=== PATIENT | female | born 1940 | race Caucasian/White ===

== ENCOUNTER → 2016-09-02 | Outpatient (CLI) | payer MEDICARE, BC ==
--- NOTE | 2016-09-03 11:45 | MM ---
Reason for exam: screening (asymptomatic). Last mammogram was performed 5 months ago. History: Patient is postmenopausal and has history of other cancer at age 38. Family history of premenopausal breast cancer in mother at age 50. Benign MG stereo VAD BX LT of the left breast, October 09, 2015. Benign stereotactic core biopsy of the left breast, August 04, 2004. Excisional biopsy of the left breast, 1974. Excisional biopsy of the left breast, 1970. Benign core biopsy of the left breast. Took estrogen for 15 years beginning at age 38. Physical Findings: A clinical breast exam by your physician is recommended on an annual basis and results should be correlated with mammographic findings. MG 3D Screening Mammo W/Cad Bilateral CC and MLO view(s) were taken. Prior study comparison: March 25, 2016, left breast MG 3d diag mammo w/cad LT. September 06, 2015, left breast MG 3d work up w/cad LT. August 30, 2015, bilateral MG screening mammo w CAD. August 15, 2013, bilateral digital screening mammo w/CAD. There are scattered fibroglandular densities. Finding: There are typically benign dystrophic, round, linear calcifications in both breasts. Previous mammotome biopsy in the left breast. There is a chronic nodularity in the left breast. There is no dominant lesion. ASSESSMENT: Benign, BI-RAD 2 RECOMMENDATION: Routine screening mammogram of both breasts in 1 year.
== END | disposition home or self-care (01) ==
LOC: RADMAMWWP 09:47
PROVIDERS: ATTEND Surgery
DX: Z12.31 Encounter for screening mammogram for malignant neoplasm of breast (principal)
CPT/HCPCS: 77063; G0202

== ENCOUNTER → 2017-01-12 | Outpatient (CLI) | payer MEDICARE, BC ==
[2017-01-12 12:02] LABS: Anisocytosis Moderate; CH 31.7; CHCM 33.8; HCT 38.5 % (34.0-46.0); HDW 2.82; HGB 13.7 gm/dL (11.4-16.0); MCH 33.5 pg (25.0-35.0); MCHC 35.5 g/dL (31.0-37.0); MCV 94.2 fL (80.0-100.0); Mean Platelet Volume 6.6; RBC 4.08 m/uL (3.80-5.40); RDW 20.3 % (11.5-15.5); WBC 3.3 k/uL (3.8-10.6)
[2017-01-12 12:05] LABS: Appearance,Urine Cloudy (Clear); Bacteria,Urine Rare /hpf; Bilirubin,Urine Negative (Negative); Glucose,Urine (UA) Negative (Negative); Ketones,Urine Negative (Negative); Leukocyte Esterase,Urine Large (Negative); Mucus,Urine Rare /hpf; Nitrite,Urine Negative (Negative); Particle Count 3023; Protein,Urine Negative (Negative); RBC,Urine 5 /hpf (0-5); Specific Gravity,Urine 1.006 (1.001-1.035); Squamous Epithelial Cell,Urine <1 /hpf (0-4); UA Billing (MACRO vs. MICRO) MICRO; Urobilinogen,Urine <2.0 mg/dL (<2.0); WBC,Urine >182 /hpf (0-5)
[2017-01-12 12:10] LABS: ALT 31 U/L (9-52); AST 26 U/L (14-36); Alkaline Phosphatase 88 U/L (38-126); Anion Gap 14 mmol/L; Blood Urea Nitrogen 16 mg/dL (7-17); Calcium 10.4 mg/dL (8.4-10.2); Carbon Dioxide 27 mmol/L (22-30); Chloride 100 mmol/L (98-107); Glucose 128 mg/dL (74-99); Non-African American GFR(MDRD) >60 (>60 ml/min/1.73 sqM); Potassium 3.5 mmol/L (3.5-5.1); Sodium 141 mmol/L (137-145); Total Bilirubin 1.1 mg/dL (0.2-1.3); Total Protein 7.7 g/dL (6.3-8.2)
--- NOTE | 2017-01-12 15:27 | US ---
EXAMINATION TYPE: US kidneys/renal and bladder DATE OF EXAM: 01/12/2017 COMPARISON: Previous study dated 12/06/2014. CLINICAL HISTORY: R31.9 Hematuria. Hematuria x 5 days. EXAM MEASUREMENTS: Right Kidney: 9.1 x 4.5 x 4.4 cm Left Kidney: 9.8 x 5.1 x 4.0 cm Right Kidney: Cystic area visualized upper pole measuring 1.6 x 1.8 x 1.7 cm. Left Kidney: No hydronephrosis or masses seen Bladder: wnl Bilateral Jets seen: Yes There is a 1.8 cm low attenuating lesion within the mid polar region of the right kidney. This was pr esent previously. The left kidney is normal. The bladder is unremarkable. Both ureteral jets were vis ualized. IMPRESSION: STABLE RIGHT RENAL CYST.
== END | disposition home or self-care (01) ==
LOC: RADUSWWP 10:58
PROVIDERS: ATTEND Internal Medicine
DX: N28.1 Cyst of kidney, acquired (principal); R31.9 Hematuria, unspecified; I11.9 Hypertensive heart disease without heart failure; E11.9 Type 2 diabetes mellitus without complications
CPT/HCPCS: 76770; 80053; 81001; 85027

== ENCOUNTER → 2017-02-04 | Outpatient (CLI) | payer MEDICARE, BC ==
[2017-02-04 14:20] LABS: Blood Urea Nitrogen 15 mg/dL (7-17); Non-African American GFR(MDRD) >60 (>60 ml/min/1.73 sqM)
--- NOTE | 2017-02-04 15:50 | CT ---
EXAMINATION TYPE: CT urogram wo/w con DATE OF EXAM: 02/04/2017 COMPARISON: NONE HISTORY: 77-year-old female complains of episodes of gross hematuria. TECHNIQUE: Contiguous axial scanning of the abdomen and pelvis performed with IV Contrast, patient in jected with 100 mL of Omnipaque 300. Delayed images through the kidneys and bladder were obtained. Co jony/sagittal reconstructions performed. CT DLP: 1716.6 mGycm Automated exposure control for dose reduction was used. FINDINGS: The heart is normal size without pericardial effusion. Lung bases clear without pleural effusion. Tiny hiatal hernia. No focal liver lesion or biliary ductal dilatation. Portal venous system is patent. Cholecystectomy clips are present. Adrenal glands, spleen, and mildly atrophic pancreas show no gross abnormality. Prominent streak and beam hardening artifact from the patient's extensive lumbar fusion hardware. No mesenteric or retroperitoneal lymphadenopathy identified allowing for this limitation. No dilated small bowel, free fluid, or free air. Mild scattered stool without pericolonic inflammatory change. T here is mild sigmoid diverticulosis. Urinary bladder is urine distended and shows no suspicious filling defect. Uterus appears surgically absent. Neither ovary is visualized. No abnormal fluid collection in the pelvis or pelvic lymphadenop athy seen. Evaluation the right kidney shows a 1.9 cm mid pole cyst. No evidence for nephrolithiasis or suspicio us renal lesion. There is symmetrical uptake and excretion of contrast from both kidneys. No suspicious filling defect is identified within the renal collecting systems. Bones: No osseous destructive process. Posterior lumbar fusion hardware were corresponding laminecto mies and lateral osseous fusion. There is dynamic hip screw fixation on the right. IMPRESSION: 1. A 1.9 CM RIGHT MIDPOLE RENAL CYST. NO NEPHROLITHIASIS OR SUSPICIOUS RENAL LESION. 2. NO ABNORMALITY IDENTIFIED INVOLVING THE RENAL COLLECTING SYSTEMS OR URETERS. 3. MILD SIGMOID DIVERTICULOSIS.
== END ==
LOC: RADCTMAIN 12:52
PROVIDERS: ATTEND Urology
DX: N28.1 Cyst of kidney, acquired (principal); K57.30 Diverticulosis of large intestine without perforation or abscess without bleeding
CPT/HCPCS: 82565; 84520; 74178; 36415; 74400; Q9967

== ENCOUNTER → 2017-10-29 | Outpatient (CLI) | payer MEDICARE, BC ==
--- NOTE | 2017-11-01 13:35 | MM ---
Reason for exam: screening (asymptomatic). Last mammogram was performed 1 year and 2 months ago. History: Patient is postmenopausal and has history of other cancer at age 38. Family history of premenopausal breast cancer in mother at age 50. Benign MG stereo VAD BX LT of the left breast, October 09, 2015. Benign stereotactic core biopsy of the left breast, August 04, 2004. Excisional biopsy of the left breast, 1974. Excisional biopsy of the left breast, 1970. Benign core biopsy of the left breast. Took estrogen for 15 years beginning at age 38. Physical Findings: A clinical breast exam by your physician is recommended on an annual basis and results should be correlated with mammographic findings. MG 3D Screening Mammo W/Cad Bilateral CC and MLO view(s) were taken. Prior study comparison: September 02, 2016, bilateral MG 3d screening mammo w/cad. March 25, 2016, left breast MG 3d diag mammo w/cad LT. There are scattered fibroglandular densities. Asymmetric breast tissue in left breast lower outer quadrant 7 x 12mm. This finding is changed when compared with previous exams. ASSESSMENT: Incomplete: need additional imaging evaluation, BI-RAD 0 RECOMMENDATION: Ultrasound of the left breast. [facility] will attempt to contact patient to return for ultrasound.
== END | disposition home or self-care (01) ==
LOC: RADMAMWWP 10:05
PROVIDERS: ATTEND Surgery
DX: Z12.31 Encounter for screening mammogram for malignant neoplasm of breast (principal)
CPT/HCPCS: 77063; 77067

== ENCOUNTER → 2017-11-19 | Day surgery (SDC) | payer MEDICARE, BC ==
[2017-11-19 09:30] VITALS: RESP 16; TEMP 98.4; BMI 29.7
[2017-11-19 10:19] VITALS: BP 125/76; PULSE 98
--- NOTE | 2017-11-19 10:37 | USB ---
EXAMINATION TYPE: US biopsy breast VAD LT, MG diagnostic mammo LT wo CAD DATE OF EXAM: 11/19/2017 CLINICAL HISTORY: R92.8 Abnormal Mammogram. Abnormal ultrasound. TECHNIQUE: Ultrasound guided core biopsy of left breast with clip placement and follow-up two-view mammogram. COMPARISON: Left breast ultrasound November 10, 2017. Bilateral breast mammogram October 29, 2017. FINDINGS: The procedure of ultrasound guided core biopsy was explained to the patient. Benefits, alternatives, and risks were discussed. An informed consent was then obtained. The patient was placed in supine positioning for imaging and for the procedure. Preprocedure imaging redemonstrates a lobulated anechoic to hypoechoic 9 mm lesion zone B C5 o'clock position in the left breast. The overlying skin was prepped and draped in usual sterile fashion. Lidocaine buffered with bicarbonate was used as anesthetic into the skin and subcutaneous tissue up to area of concern in the left breast. Under ultrasound guidance, a 12-gauge vacuum assisted biopsy gun device was used to obtain 3 core samples. Lesion was not well identified after initial passes. Following this, a biopsy clip was left in lesion. The patient tolerated the procedure well without any immediate complication. The patient was kept in the radiology department for short stay after the procedure and then discharged home in stable condition. Postprocedure mammogram confirms successful deployment of clip which correlates with area of new nodularity middle depth slight inferior aspect, the new nodularity is not clearly identified after sampling. IMPRESSION: Successful, uncomplicated ultrasound guided core biopsy of area of concern in the left breast, full pathology results to follow. Low index of suspicion noted at time of procedure. Pathology Results: Benign BREAST, LEFT, CORE BIOPSY: FIBROCYSTIC CHANGES INCLUDING FIBROSIS AND APOCRINE METAPLASIA/APOCRINE CYST FORMATION. FOCALLY PROMINENT STROMAL HISTIOCYTES WITH HEMOSIDERIN PIGMENT AND CHRONIC INFLAMMATION SUGGESTIVE OF CYST RUPTURE. Recommendation Follow up ultrasound of the left breast in 6 months. NANI
== END ==
LOC: RADUSWWP 08:51
PROVIDERS: ATTEND Surgery
DX: N60.32 Fibrosclerosis of left breast (principal); N60.82 Other benign mammary dysplasias of left breast; N60.02 Solitary cyst of left breast; N61.0 Mastitis without abscess; R92.8 Other abnormal and inconclusive findings on diagnostic imaging of breast; Z88.1 Allergy status to other antibiotic agents; Z88.5 Allergy status to narcotic agent; Z88.0 Allergy status to penicillin; Z88.2 Allergy status to sulfonamides; Z91.09 Other allergy status, other than to drugs and biological substances
CPT/HCPCS: 88305; 77065; 19083; A4648; J2001

== ENCOUNTER → 2018-03-22 | Outpatient (CLI) | payer MEDICARE, BC ==
[2018-03-22 11:04] LABS: Anisocytosis Slight; HCT 34.8 % (34.0-46.0); HGB 12.3 gm/dL (11.4-16.0); MCH 31.4 pg (25.0-35.0); MCHC 35.4 g/dL (31.0-37.0); MCV 88.8 fL (80.0-100.0); Mean Platelet Volume 6.5; Platelet Count 172 k/uL (150-450); RBC 3.92 m/uL (3.80-5.40); RDW 19.9 % (11.5-15.5); WBC 2.8 k/uL (3.8-10.6)
[2018-03-22 11:09] LABS: Appearance,Urine Cloudy (Clear); Bacteria,Urine Rare /hpf; Bilirubin,Urine Negative (Negative); Blood,Urine Trace (Negative); Color,Urine Yellow; Glucose,Urine (UA) Negative (Negative); Hyaline Casts,Urine 3 /lpf (0-2); Ketones,Urine Negative (Negative); Leukocyte Esterase,Urine Large (Negative); Mucus,Urine Rare /hpf; Nitrite,Urine Negative (Negative); PH, Urine 6.5 (5.0-8.0); Protein,Urine Trace (Negative); RBC,Urine 4 /hpf (0-5); Specific Gravity,Urine 1.011 (1.001-1.035); Squamous Epithelial Cell,Urine 6 /hpf (0-4); Urobilinogen,Urine <2.0 mg/dL (<2.0); WBC,Urine 14 /hpf (0-5)
[2018-03-22 11:22] LABS: ALT 27 U/L (9-52); AST 26 U/L (14-36); Albumin 4.3 g/dL (3.5-5.0); Alkaline Phosphatase 75 U/L (38-126); Amylase 43 U/L (30-110); Anion Gap 10 mmol/L; Blood Urea Nitrogen 12 mg/dL (7-17); Calcium 9.6 mg/dL (8.4-10.2); Carbon Dioxide 30 mmol/L (22-30); Chloride 103 mmol/L (98-107); Glucose 140 mg/dL (74-99); Lipase 89 U/L (23-300); Potassium 3.3 mmol/L (3.5-5.1); Sodium 143 mmol/L (137-145); Total Bilirubin 0.9 mg/dL (0.2-1.3); Total Protein 7.1 g/dL (6.3-8.2)
--- NOTE | 2018-03-22 14:28 | US ---
EXAMINATION TYPE: US abdomen complete DATE OF EXAM: 03/22/2018 COMPARISON: Correlation CT 02/04/2017 CLINICAL HISTORY: 78-year-old female R10.84 Generalized abd pain R10.11 RUQ Abd pain for one week. C holecystectomy, known renal cyst TECHNIQUE: Multiple sonographic images of the abdomen are obtained. FINDINGS: EXAM MEASUREMENTS: Liver Length: 14.5 cm Gallbladder: Surgically absent CBD: 0.6 cm Spleen: 10.8 cm Right Kidney: 9.5 x 4.8 x 4.9 cm Left Kidney: 9.8 x 4.7 x 5.6 cm Pancreas: Suboptimal visualization of the pancreatic head and tail secondary to shadowing from bowel gas. Visualized portions appear normal. Liver: No focal lesion seen. Gallbladder: Surgically absent Evidence for sonographic Edgar's sign: no CBD: wnl Spleen: wnl Right Kidney: 2.1cm simple appearing cyst mid pole. No hydronephrosis. Left Kidney: No hydronephrosis. Upper IVC: wnl Abd Aorta: wnl IMPRESSION: Status post cholecystectomy. No hydronephrosis. 2.1 cm simple right renal cyst.
== END | disposition home or self-care (01) ==
LOC: RADUSWWP 10:15
PROVIDERS: ATTEND Internal Medicine
DX: N28.1 Cyst of kidney, acquired (principal); R10.84 Generalized abdominal pain; I11.9 Hypertensive heart disease without heart failure; E11.9 Type 2 diabetes mellitus without complications; Z90.49 Acquired absence of other specified parts of digestive tract
CPT/HCPCS: 76705; 80053; 81001; 82150; 83690; 85027

== ENCOUNTER → 2018-06-22 | Outpatient (CLI) | payer MEDICARE, BC ==
--- NOTE | 2018-06-22 11:41 | MM ---
Reason for exam: follow-up at short interval from prior study. Last mammogram was performed 7 months ago. History: Patient is postmenopausal and has history of other cancer at age 38. Family history of premenopausal breast cancer in mother at age 50. Benign US biopsy breast VAD LT of the left breast, November 19, 2017. Benign MG stereo VAD BX LT of the left breast, October 09, 2015. Benign stereotactic core biopsy of the left breast, August 04, 2004. Excisional biopsy of the left breast, 1974. Excisional biopsy of the left breast, 1970. Benign core biopsy of the left breast. Took estrogen for 15 years beginning at age 38. Physical Findings: Nurse did not find any significant physical abnormalities on exam. MG 3D Diag Mammo W/Cad LT CC and MLO view(s) were taken of the left breast. Prior study comparison: November 19, 2017, left breast MG diagnostic mammo LT wo CAD. October 29, 2017, bilateral MG 3d screening mammo w/cad. The breast tissue is heterogeneously dense. This may lower the sensitivity of mammography. There is chronic nodularity in the left breast. Previous mammotome biopsy in the left breast. No significant new findings when compared with previous films. These results were verbally communicated with the patient and result sheet given to the patient on 06/22/18. ASSESSMENT: Benign, BI-RAD 2 RECOMMENDATION: Return to routine screening mammogram schedule for both breasts. Back on schedule.
== END ==
LOC: RADMAMWWP 10:54
PROVIDERS: ATTEND Surgery
DX: R92.8 Other abnormal and inconclusive findings on diagnostic imaging of breast (principal)
CPT/HCPCS: 77065; G0279; 77061

== ENCOUNTER → 2018-10-20 | Outpatient (CLI) | payer MEDICARE, BC ==
[2018-10-20 11:06] LABS: Anisocytosis Moderate; HCT 33.9 % (34.0-46.0); HGB 12.3 gm/dL (11.4-16.0); MCH 33.6 pg (25.0-35.0); MCHC 36.2 g/dL (31.0-37.0); MCV 92.6 fL (80.0-100.0); Platelet Count 210 k/uL (150-450); RBC 3.66 m/uL (3.80-5.40); RDW 20.9 % (11.5-15.5); WBC 4.2 k/uL (3.8-10.6)
[2018-10-20 17:16] LABS: Albumin 4.7 g/dL (3.80-4.90); Albumin/Globulin Ratio 2.14 (1.60-3.17); Calcium 9.9 mg/dL (8.7-10.3); Globulin 2.2 g/dL (1.6-3.3); LDL Cholesterol,Calculated 83.6 mg/dL (0.0-131.0); Potassium 4.3 mmol/L (3.5-5.5); Total Bilirubin 0.6 mg/dL (0.3-1.2); Total Protein 6.9 g/dL (6.2-8.2); VLDL Calculation 27.4 mg/dL (5.00-40.00)
[2018-10-20 17:24] LABS: T4, Free (Free Thyroxine) 0.9 ng/dL (0.80-1.80)
[2018-10-20 18:26] LABS: Hemoglobin A1C 6.5 % (4.0-6.0)
== END ==
LOC: LABWHC1 10:05
PROVIDERS: ATTEND Internal Medicine
DX: Z00.00 Encounter for general adult medical examination without abnormal findings (principal); E11.9 Type 2 diabetes mellitus without complications; I11.9 Hypertensive heart disease without heart failure; K21.0 Gastro-esophageal reflux disease with esophagitis; E78.2 Mixed hyperlipidemia
CPT/HCPCS: 36415; 80053; 80061; 82043; 82570; 83036; 84439; 84443; 85027

== ENCOUNTER → 2018-12-07 | Outpatient (CLI) | payer MEDICARE, BC ==
--- NOTE | 2018-12-08 11:38 | MM ---
Reason for exam: screening (asymptomatic). Last mammogram was performed 6 months ago. History: Patient is postmenopausal and has history of other cancer at age 38. Family history of premenopausal breast cancer in mother at age 50. Benign US biopsy breast VAD LT of the left breast, November 19, 2017. Benign MG stereo VAD BX LT of the left breast, October 09, 2015. Benign stereotactic core biopsy of the left breast, August 04, 2004. Excisional biopsy of the left breast, 1974. Excisional biopsy of the left breast, 1970. Benign core biopsy of the left breast. Took estrogen for 15 years beginning at age 38. Physical Findings: A clinical breast exam by your physician is recommended on an annual basis and results should be correlated with mammographic findings. MG 3D Screening Mammo W/Cad Bilateral CC and MLO view(s) were taken. Prior study comparison: June 22, 2018, left breast MG 3d diag mammo w/cad LT. November 19, 2017, left breast MG diagnostic mammo LT wo CAD. There are scattered fibroglandular densities. Previous mammotome biopsy in the left breast x 2. There is chronic nodularity in the left breast. Chronic post surgical change left breast with nipple inversion. No significant changes when compared with prior studies. ASSESSMENT: Benign, BI-RAD 2 RECOMMENDATION: Routine screening mammogram of both breasts in 1 year.
== END ==
LOC: RADMAMWWP 11:50
PROVIDERS: ATTEND Internal Medicine
DX: Z12.31 Encounter for screening mammogram for malignant neoplasm of breast (principal)
CPT/HCPCS: 77063; 77067

== ENCOUNTER → 2019-04-11 | Outpatient (CLI) | payer MEDICARE, BC ==
--- NOTE | 2019-04-11 15:30 | BD ---
EXAMINATION TYPE: Axial Bone Density DATE OF EXAM: 04/11/2019 COMPARISON: 12.25.2011 DEXA bone scan. CLINICAL HISTORY: 79 YR OLD FEMALE....ICD-10 CODE: Z78.0 POST MENOPAUSAL Height: 60.5 Weight: 165 FRAX RISK QUESTIONS: History of Fracture in Adulthood: YES Secondary Osteoporosis: YES 3. Menopause before 45: YES RISK FACTORS HISTORY OF: Hip Fracture YES, RIGHT HIP, WITH PIN OVER 50 YRS OLD History of Wrist YES, RIGHT, OVER 50 YRS OLD Surgery to Spine YES TO LOWER AN CERVICAL SPINE FUSIONS AND PINNING Postmenopausal woman: HYST AT AGE 29 YRS OLD Take estrogen and/or progesterone medications: FOR SHORT WHILE IN THE PAST Lost more than 2 inches in height since high school: YES Hyperparathyroidism: NO Adrenal Insufficiency: NO MEDICATIONS: Thyroid Medications: YES, SYNTHROID, FOR ABOUT 20+ YRS Additional Medications: BP MEDS, PROZAC, HX OF CHEMO AND RADIATION, ORAL DIABETIC MEDS, REGULINE, STA TIN FOR CHOLESTEROL, Additional History: LYMPHOMA X3 TIMES, DIABETIC, HYPERTENSION, CHOLESTEROL EXAM MEASUREMENTS: Bone mineral densitometry was performed using the [employer] System. MANY FUSIONS AND PINNINGS, SPINE NOT Bone mineral density about the L hip (g/cm2): 0.855 T Score values are as follows: -----L Neck: -2.2 -----L Total: -1.2 Bone mineral density has: Decreased -3.0% since study of: 12.25.2011 FRAX%s: THERE IS A 21.6% CHANCE FOR A MAJOR OSTEOPOROTIC FX AND A 5.8% FOR HIP....PROBABILITY FOR F X IN 10 YRS TIME Bone mineral density about the L Wrist (g/cm2): 0.257 T Score values are as follows: -----Dist. R+U: -5.4 -----Prox. R+U: -6.0 -----Radius total: -6.6 Bone mineral density FIRST PERIPHERAL WRIST SCAN...BASELINE WRIST. IMPRESSION: Osteoporosis (T Score less than -2.5) is present left forearm level. There is increased fracture risk and therapy is usually indicated based on age. Re-Screen 1-2 years. NOTE: T-SCORE=SD OF THE YOUNG ADULT MEAN.
== END | disposition home or self-care (01) ==
LOC: RADBDWWP 14:01
PROVIDERS: ATTEND Family Medicine
DX: M81.0 Age-related osteoporosis without current pathological fracture (principal)
CPT/HCPCS: 77080

== ENCOUNTER → 2019-07-07 | Outpatient (CLI) | payer MEDICARE, BC | END | disposition home or self-care (01) | LOC: LABWHC1 11:03 | PROVIDERS: ATTEND Orthopaedic Surgery | DX: Z01.812 Encounter for preprocedural laboratory examination (principal) | CPT/HCPCS: 87070 ==

== ENCOUNTER → 2019-07-14 | Outpatient (CLI) | payer MEDICARE, BC ==
[2019-07-14 13:23] LABS: Prothrombin Time 10.6 sec (9.0-12.0)
[2019-07-14 14:03] LABS: Basophils # (A) 0.1 k/uL (0-0.2); Basophils % (A) 1 %; Eosinophils # (A) 0.1 k/uL (0-0.7); Eosinophils % (A) 1 %; HCT 37.5 % (34.0-46.0); HGB 12.5 gm/dL (11.4-16.0); Lymphocytes # (A) 0.9 k/uL (1.0-4.8); Lymphocytes % (A) 9 %; MCH 30.1 pg (25.0-35.0); MCHC 33.2 g/dL (31.0-37.0); MCV 90.5 fL (80.0-100.0); Mean Platelet Volume 7.1; Monocytes # (A) 0.7 k/uL (0-1.0); Monocytes % (A) 7 %; Neutrophils # (A) 8.1 k/uL (1.3-7.7); Neutrophils % (A) 82 %; Platelet Count 220 k/uL (150-450); RBC 4.15 m/uL (3.80-5.40); RDW 13.5 % (11.5-15.5); WBC 9.8 k/uL (3.8-10.6)
== END | disposition home or self-care (01) ==
LOC: LABPAT 12:02
PROVIDERS: ATTEND Orthopaedic Surgery
DX: Z01.812 Encounter for preprocedural laboratory examination (principal); Z01.818 Encounter for other preprocedural examination; M17.11 Unilateral primary osteoarthritis, right knee
CPT/HCPCS: 85025; 85610; 93005

== ENCOUNTER 2019-07-20 14:07 | Emergency (ER) | payer MEDICARE, BC ==
[2019-07-20 14:26] VITALS: BP 99/66; PULSE 90; RESP 20; TEMP 97.6
[2019-07-20] MEDS ORDERED: LIDOCAINE 5% PATCH TOPICAL STA ×2 (14:54→15:10)
[2019-07-20] MEDS ORDERED: CYCLOBENZAPRINE 5 MG TAB PO STA (14:55)
[2019-07-20] MEDS ORDERED: KETOROLAC 30 MG/ML 1 ML VIAL IM STA (14:56)
[2019-07-20] MEDS ORDERED: CYCLOBENZAPRINE 10 MG TAB PO STA (15:11)
--- NOTE | 2019-07-20 16:16 | ED ---
Back Pain [facility] - General Chief Complaint: Back Pain/Injury Stated Complaint: Back pain Time Seen by Provider: 07/20/19 14:46 Source: patient Limitations: no limitations - History of Present Illness Initial Comments: Patient is 79-year-old female presenting to emergency Department with a chief complaint of low back pain. Patient reports onset of back pain about 3 days ago that appears to be exacerbated with ambulation and is alleviated and sitting or standing position. Patient also reports the pain is exacerbated with right rotation. Patient reports the pain is located in the lumbosacral region and radiates bilaterally but mostly towards the left side. Denies any radiation of the pain along the posterior aspect of the left lower extremity. Denies saddle anesthesia, urinary bowel incontinence. No red flags. Reports taking [id number] analgesia with some improvement. She does have a history of lumbar fusion for many years ago. Denies abdominal pain, chest pain, shortness of breath, one-sided weakness, paresthesias. No focal deficits. - Related Data Home Medications Medication Instructions Recorded Confirmed Allopurinol [Zyloprim] 100 mg PO DAILY 01/05/14 11/19/17 Atenolol [Tenormin] 50 mg PO BID 01/05/14 11/19/17 Calcium Carb-Vit D 500Mg-200Un 1 tab PO BID 01/05/14 11/19/17 [Oscal 500+D] Diclofenac Sodium 75 mg PO BID 01/05/14 11/19/17 Montelukast [Singulair] 10 mg PO HS 01/05/14 11/19/17 Simvastatin [Zocor] 20 mg PO HS 01/05/14 11/19/17 amLODIPine BESYLATE [Norvasc] 5 mg PO QAM 01/05/14 11/19/17 Levothyroxine Sodium [Synthroid] 12.5 mcg PO QAM 03/16/14 11/19/17 Zolpidem [Ambien] 5 mg PO HS PRN 03/16/14 11/19/17 FLUoxetine HCL [PROzac] 20 mg PO QAM 07/24/14 11/19/17 Furosemide 40 mg PO DAILY 07/24/14 11/19/17 Clopidogrel Bisulfate [Clopidogrel] 75 mg PO DAILY 10/29/14 11/19/17 Metoclopramide [Reglan] 5 mg PO BID 02/06/15 11/19/17 metFORMIN HCL [Glucophage] 500 mg PO DAILY 11/12/17 11/19/17 Previous Rx's Medication Instructions Recorded Lidocaine 5% Patch [Lidoderm] 1 patch TOPICAL DAILY #6 patch 07/20/19 Allergies Allergy/AdvReac Type Severity Reaction Status Date / Time cefaclor [From Ceclor] Allergy Rash/Hives Verified 07/20/19 14:26 ciprofloxacin [From Cipro] Allergy Rash/Hives Verified 07/20/19 14:26 ciprofloxacin HCl Allergy Rash/Hives Verified 07/20/19 14:26 [From Cipro] hydromorphone HCl Allergy Anaphylaxis Verified 07/20/19 14:26 [From Dilaudid] Penicillins Allergy Rash/Hives Verified 07/20/19 14:26 adhesive AdvReac red skin, Verified 07/20/19 14:26 blisters sulfamethoxazole AdvReac Abdominal Verified 07/20/19 14:26 [From Bactrim] Pain trimethoprim [From Bactrim] AdvReac Abdominal Verified 07/20/19 14:26 Pain Review of Systems ROS Statement: Those systems with pertinent positive or pertinent negative responses have been documented in the HPI. ROS Other: All systems not noted in ROS Statement are negative. Past Medical History Past Medical History: Cancer, Diabetes Mellitus, GERD/Reflux, Hyperlipidemia, Hypertension, Osteoarthritis (OA), Syncope Additional Past Medical History / Comment(s): TIA X2, SYNCOPE in 2013, VARICOSE VEINS, GOUT, LYMPHOMA (HX OF CHEMO & RADIATION 1977,1982 & 1993) History of Any Multi-Drug Resistant Organisms: None Reported Past Surgical History: Back Surgery, Cholecystectomy, Hysterectomy, Joint Replacement Additional Past Surgical History / Comment(s): RIGHT HIP REPAIR, LEFT KNEE REPLACEMENT, HAND & FOOT SURG, BREAST & AXILLARY BX, TUMOR IN THROAT REMOVED., CERVICAL FUSION, 7-16-15 LUMBAR LAMINECTOMY,DECOMPRESSION-FUSION L1-L2. Past Anesthesia/Blood Transfusion Reactions: No Reported Reaction Additional Past Anesthesia/Blood Transfusion Reaction / Comment(s): CLAUSTROPHOBIA Past Psychological History: Anxiety, Depression Smoking Status: Never smoker Past Alcohol Use History: None Reported Past Drug Use History: None Reported - Past Family History Father Family Medical History: Deep Vein Thrombosis (DVT) Mother Family Medical History: Cancer Additional Family Medical History / Comment(s): BREAST CA Brother(s) Family Medical History: Cancer, CVA/TIA, Deep Vein Thrombosis (DVT) Additional Family Medical History / Comment(s): BROTHER #1 CA. BROTHER #2 CVA W/ BRAIN BLEED. BROTHER #3 DVT General Exam Limitations: no limitations General appearance: alert, in no apparent distress Head exam: Present: atraumatic, normocephalic, normal inspection Eye exam: Present: normal appearance, PERRL, EOMI Pupils: Present: normal accommodation ENT exam: Present: normal exam Neck exam: Present: normal inspection, full ROM Respiratory exam: Present: normal lung sounds bilaterally Cardiovascular Exam: Present: regular rate, normal rhythm, normal heart sounds Extremities exam: Present: normal inspection, full ROM, normal capillary refill, other (+2 ulnar and radial pulses bilaterally.) Back exam: Present: normal inspection (Scarring from previous surgery.), tenderness, paraspinal tenderness (Left paraspinal tenderness along to the left buttock region.). Absent: full ROM (Limited range of motion with right rotation due to pain) Neurological exam: Present: alert, oriented X3 Psychiatric exam: Present: normal affect, normal mood Skin exam: Present: warm, dry, intact, normal color Course Vital Signs 07/20/19 14:22 Temperature 97.6 F Pulse Rate 90 Respiratory 20 Rate Blood Pressure 99/66 O2 Sat by Pulse 99 Oximetry Medical Decision Making - Medical Decision Making Patient is 79-year-old female presenting to emergency Department with a chief complaint of low back pain. On exam patient does have paraspinal tenderness in the lumbosacral region the mostly radiates down to the left buttock. Positive leg raise test the right leg. No trauma to the region. I suspect this is mechanical lumbar pain. No red flags. No cauda equina. No thoracic or cervical pain. No focal deficits. Very Low suspicion for dissection. Patient given total, Lidoderm patch and Flexeril. On reevaluation patient reports some symptoms have greatly improved. She is still able to ambulate. Patient was to follow-up with bioinformatics specialist. Patient given prescription for return patches. Patient also given Flexeril starter pack advised about the possible side effects of the medication. Strict return parameters were thoroughly discussed with patient was understanding and agreeable. Case discussed with physician. Disposition Clinical Impression: Mechanical back pain Disposition: HOME SELF-CARE Condition: Stable Instructions (If sedation given, give patient instructions): Acute Low Back Pain (ED) Additional Instructions: Please follow up with an bioinformatics specialist. Please return to emergency department if symptoms worsen. Alternate between Tylenol and ibuprofen for pain control. Prescriptions: Lidocaine 5% Patch [Lidoderm] 1 patch TOPICAL DAILY #6 patch Is patient prescribed a controlled substance at d/c from ED?: No Referrals: Alvarez Rocha DO [Primary Care Provider] - 1-2 days Gil Stern DO [Medical Doctor] - 1-2 days Time of Disposition: 16:16
[2019-07-20] MEDS ORDERED: CYCLOBENZAPRINE 10MG STARTER 3 TAB BTL PO STA (16:20)
== END 2019-07-20 16:30 | disposition home or self-care (01) ==
LOC: EC 14:07
DX: M54.5 Low back pain (principal); E11.9 Type 2 diabetes mellitus without complications; E78.5 Hyperlipidemia, unspecified; I10 Essential (primary) hypertension; M19.90 Unspecified osteoarthritis, unspecified site; M10.9 Gout, unspecified; F32.9 Major depressive disorder, single episode, unspecified; F41.9 Anxiety disorder, unspecified; Z88.0 Allergy status to penicillin; Z88.1 Allergy status to other antibiotic agents; Z88.2 Allergy status to sulfonamides; Z88.5 Allergy status to narcotic agent; Z91.048 Other nonmedicinal substance allergy status; Z79.1 Long term (current) use of non-steroidal anti-inflammatories (NSAID); Z79.02 Long term (current) use of antithrombotics/antiplatelets; Z79.84 Long term (current) use of oral hypoglycemic drugs; Z79.890 Hormone replacement therapy; Z79.899 Other long term (current) drug therapy; Z86.73 Personal history of transient ischemic attack (TIA), and cerebral infarction without residual deficits; Z85.72 Personal history of non-Hodgkin lymphomas; Z92.21 Personal history of antineoplastic chemotherapy; Z92.3 Personal history of irradiation; Z98.1 Arthrodesis status; Z96.652 Presence of left artificial knee joint
CPT/HCPCS: 99283; 96372; J1885

== ENCOUNTER 2019-07-31 08:36 | Inpatient (IN) | payer MEDICARE, BC ==
[2019-07-21 10:20] VITALS: BMI 28.6
--- NOTE | 2019-07-30 11:11 | HP ---
HISTORY AND PHYSICAL Pretty Youngblood is a 79-year-old patient seen with symptomatic right knee osteoarthritis. After treatment options were discussed with her, she elected to proceed with right total knee arthroplasty. Consent regarding the procedure was obtained, clearance was provided by Dr. Rocha. PAST MEDICAL HISTORY: Hyperlipidemia, hypertension, hypothyroidism, gastroesophageal reflux disease. PAST SURGICAL HISTORY: Cholecystectomy, hysterectomy, hip arthroplasty, shoulder arthroscopy, cervical fusion, lumbar spine fusion. DAILY MEDICATIONS: Atenolol, furosemide, Norvasc, Plavix, Prozac, simvastatin, allopurinol, Synthroid. ALLERGIES: PENICILLIN, CIPRO, CECLOR, DILAUDID, BACTRIM, TAPE. SOCIAL HISTORY: She denies tobacco use. PHYSICAL EXAMINATION: Evaluation of the right knee: Range of motion is -2 to 115. Mild effusion. Tenderness along the medial joint line. Crepitus along the medial patellofemoral compartments on range of motion. Pain with patellofemoral compression. Ligaments are stable. Hip rotation is without pain. Distal neurovascular exam is intact. RADIOGRAPHS: Radiographs of the right knee revealed severe medial moderate patellofemoral compartment osteoarthritis. IMPRESSION: 1. Right knee osteoarthritis. 2. Hypertension. 3. Hyperlipidemia. 4. Hypothyroidism. 5. Gastroesophageal reflux disease. PLAN: Right total knee arthroplasty. MMODL / IJN: [id number] /
[~2019-07-31 08:36] MED LIST: ACETAMINOPHEN TAB 500 MG TAB PO ONE; CLINDAMYCIN 900 MG in DEXTROSE 5% IN WATER 50 ML IVPB ONE; LIDOCAINE 1% 20 ML VIAL (10MG/ML) FOR IV START INTRADERMA PRN; MELOXICAM 7.5 MG TAB PO ONE; MIDAZOLAM 2 MG/2 ML VIAL IV PRN; TRANEXAMIC ACID 1,000 MG in SODIUM CHLORIDE 0.9% 100 ML IVPB ONE; fentaNYL (PF) 50 MCG/ML 2 ML AMP IV PRN
[2019-07-31] MEDS: LACTATED RINGERS 1,000 ML IV SCH ×3 (08:58→17:06)
[2019-07-31] MEDS ORDERED: ONDANSETRON 4 MG/2 ML VIAL IVP ONE (09:20)
[2019-07-31] MEDS ORDERED: DEXAMETHASONE SOD PHOSPHATE 10 MG/ML 1 ML VIAL IV ONE (09:20)
[2019-07-31 09:22] LABS: Glucose,Whole Blood 113 mg/dL (75-99)
[2019-07-31] MEDS: fentaNYL (PF) 50 MCG/ML 2 ML AMP IVP PRN ×3 (09:28→15:23)
[2019-07-31] MEDS ORDERED: ROPIVACAINE 0.2%-NS ON-Q PUMP 1,090 MG, EMPTY PAIN BALL 1 EACH MISCELLANE PRN (09:54)
--- NOTE | 2019-07-31 09:55 | P.ANPRN ---
Procedure Note - Anesthesia - Nerve Block Performed Right Adductor Canal Infusion Time Out Performed: Yes Date of Procedure: 07/31/19 Procedure Start Time: :30 Procedure Stop Time: :41 Location of Patient: PreOp Indication: Acute Post-Operative Pain, Requested by Surgeon Specifically requested for management of pain by DrYousif: [place] Sedation Type: Sedate with meaningful contact maintained Preparation: Sterile Prep Position: Supine Catheter: Indwelling Needle Types: Pajunk Needle Gauge: 18 Ultrasound used to visualize needle placement: Yes Ultrasound used to observe medication spread: Yes Injectate: 0.5% Ropivacaine (see comment for volume) (20 cc) Blood Aspirated: No Pain Paresthesia on Injection Noted: No Resistance on Injection: Normal Image Stored and Saved: Yes Events: Uneventful and Well Tolerated
[2019-07-31] MEDS ORDERED: fentaNYL (PF) 50 MCG/ML 2 ML AMP ONE (10:00)
[2019-07-31] MEDS ORDERED: MIDAZOLAM 2 MG/2 ML VIAL ONE (10:00)
[2019-07-31] MEDS ORDERED: SUCCINYLCHOLINE CHLORIDE 100 MG/5 ML SYR IV ONE (10:00)
[2019-07-31] MEDS ORDERED: PROPOFOL 10 MG/ML 20 ML VIAL IV ONE (10:00)
[2019-07-31] MEDS: ROPIVACAINE 246.25 MG, EPINEPHrine 0.5 MG, KETOROLAC 30 MG, cloNIDine HCL/PF 80 MCG, WA... MISCELLANE ONE ×10 (10:39→11:39)
[2019-07-31] MEDS ORDERED: CLINDAMYCIN 1,800 MG in SODIUM CHLORIDE 0.9% IRRIGATIO 3,000 ML IRRIGATION ONE (10:39)
[2019-07-31] MEDS ORDERED: LACTATED RINGERS 1,000 ML IV ONE (11:39)
[2019-07-31] MEDS ORDERED: NALOXONE 0.4 MG/ML 1 ML VIAL IV PRN (12:03)
[2019-07-31] MEDS ORDERED: HYDROmorphone 0.5 MG/0.5 ML SYRINGE IVP PRN ×3 (12:03)
[2019-07-31] MEDS ORDERED: ONDANSETRON 4 MG/2 ML VIAL IVP PRN (12:03)
--- NOTE | 2019-07-31 12:03 | P.OP ---
Date of Procedure: 07/31/19 Preoperative Diagnosis: Right knee osteoarthritis Postoperative Diagnosis: Right knee osteoarthritis Procedure(s) Performed: Right total knee arthroplasty Implants: 1. Microport evolution size 4 right cemented femur 2. Microport evolution size 5 right cemented tibial baseplate 3. Microport evolution size 5 right 14 mm CS polyethylene tibial insert 4. Microport advance 32 mm all polyethylene cemented patella Anesthesia: GETA, regional (Adductor canal catheter), local Surgeon: Los Thomas Die Machine Operator #1: Octaviano Rice Estimated Blood Loss (ml): 30 Pathology: other (Bone) Condition: stable Disposition: PACU Indications for Procedure: 79-year-old patient seen with symptomatic right knee osteoarthritis. After treatment options were discussed, she elected to proceed with total knee arthroplasty. Operative Findings: See description of procedure Description of Procedure: Patient was taken to the operative suite after having an adductor canal catheter placed by the department of anesthesia for postoperative pain management. Patient underwent a general anesthetic by the department of anesthesia. Patient was given preoperative IV intake antibiotics and TXA. A well-padded tourniquet was placed about the right lower extremity. The lower extremity was then prepped and draped in the normal sterile orthopedic fashion. The extremity was elevated, a tourniquet was insufflated to 300. A standard anterior incision was made sharply through skin. Dissection was taken down through the subcutaneous soft tissues down to the extensor mechanism. A medial arthrotomy was performed, patella was everted and knee was flexed. There was advanced osteoarthritis noted. I introduced my distal intramedullary femoral drill. I then introduced the distal femoral cutting jig. Jose Elias MURO secured the cutting jig with 2 pins. I held retractors in position while Jose Elias MURO performed the distal femoral resection through the guide area we now removed her distal femoral cutting guide. We now placed our 4-in-1 femoral cutting block and positioned and it was secured with 2 pins by Jose Elias MURO while I held the block in position. The distal femoral finishing was now completed. A proximal tibial cutting guide was positioned. I held the guide in the appropriate position with both hands well Jose Elias MURO inserted stabilizing pins into the guide. P roximal tibial cut was made. We now placed a trial femoral component into position, along with an appropriate size tibial tray and insert. We now took the knee through range of motion and had full extension good flexion and good overall soft tissue balance noted. The patella was everted and stabilized with 2 towel clips held by Jose Elias MURO while I performed a flush with patellar quad tendon utilizing a fresh sawblade. We templated the patella, appropriate drill holes were made. An appropriate trial patella was positioned, knee was taken through full range of motion with the patella tracking very nicely. The trial patella was removed. Drill holes were made through the femoral component. All trial components were removed after marking off the appropriate rotation of the tibia. Retractors were now positioned along the proximal tibia. An appropriate keel punch was made with the appropriate size tibial guide by myself on Jose Elias MURO assisted by holding retractors. At this point appropriate size implants were chosen and opened. The joint was irrigated copiously with pulse lavage mechanical irrigation. The posterior capsule was infiltrated with local analgesic. The wound was irrigated with pulse lavage mechanical irrigation. We mixed antibiotic methylmethacrylate. We placed the knee into flexion. We placed multiple retractors assisted by Jose Elias MURO to expose the proximal tibia. Once the methyl methacrylate was ready, the tibial component was cemented into place removing any excess methylmethacrylate form by both myself and Jose Elias MURO. The femoral component was cemented into place removing the removing any excess methylmethacrylate performed by both myself and Jose Elias MURO. We then inserted the appropriate size polyethylene tibial insert. We made sure that it was locked into position. We took the knee into full extension, and then back in a flexion making sure we had removed any excess methylmethacrylate. The patellar component was then cemented down and secured with clamp. Excess methylmethacrylate removed. We kept the knee in full extension, patellar clamp in position until methylmethacrylate had hardened. Once it had hardened the patellar clamp was removed. The knee was taken through full range of motion. The patella tracked nicely. There was good soft tissue balancing. The tourniquet was now released. Additional hemostasis was achieved via electrocautery. A second gram of TXA was given. The wound again was irrigated with pulse lavage mechanical irrigation. The superficial soft tissues were infiltrated local analgesic. The extensor mechanism was repaired with Vicryl. We checked the repair with range of motion and it was stable. The subcutaneous soft tissues were repaired with Vicryl in layers. The skin was approximated with pernio/Dermabond. Sterile dressings were applied followed by loose web roll and Chris bandage. The patient was transferred to a bed, and taken to recovery in stable and satisfactory condition. Jose Elias MURO assisted with this complex procedure.
[2019-07-31 12:28] LABS: Glucose,Whole Blood 137 mg/dL (75-99)
--- NOTE | 2019-07-31 12:43 | XR ---
EXAMINATION TYPE: XR knee limited RT DATE OF EXAM: 07/31/2019 CLINICAL HISTORY: Right knee pain and arthritis status post total knee replacement. TECHNIQUE: Portable AP and crosstable lateral views of the right knee are obtained immediately posto peratively. COMPARISON: None FINDINGS: Metallic hardware from total right knee arthroplasty is seen and appears satisfactory in a lignment and position. There is evidence of recent surgery with diffuse subcutaneous gas, vertical s kin diann, and soft tissue swelling noted. IMPRESSION: METALLIC HARDWARE FROM TOTAL RIGHT KNEE ARTHROPLASTY IS SATISFACTORY IN ALIGNMENT.
[2019-07-31] MEDS: SODIUM CHLORIDE 0.9% 1,000 ML IV SCH (16:55)
[2019-07-31 17:10] LABS: Glucose,Whole Blood 150 mg/dL (75-99)
[2019-07-31] MEDS: CLINDAMYCIN 900 MG in DEXTROSE 5% IN WATER 50 ML IVPB SCH ×2 (18:00)
[2019-07-31] MEDS: HYDROcodone/APAP 5-325MG 1 EACH TAB PO PRN (18:05)
[2019-07-31] MEDS ORDERED: ZOLPIDEM 5 MG TAB PO PRN (20:15)
[2019-07-31 20:24] LABS: Glucose,Whole Blood 203 mg/dL (75-99)
[2019-07-31] MEDS: INSULIN ASPART (NovoLOG) 100 UNIT/ML VIAL SQ SCH (20:44)
[2019-07-31] MEDS: ENOXAPARIN 30 MG/0.3 ML SYRINGE SQ SCH ×2 (20:45→20:47)
[2019-07-31] MEDS: ATORVASTATIN 20 MG TAB PO SCH (20:45)
[2019-07-31] MEDS: SENNOSIDES-DOCUSATE SODIUM 1 EACH TAB PO SCH (20:45)
[2019-07-31] MEDS: MONTELUKAST 10 MG TAB PO SCH (20:45)
[2019-07-31] MEDS: ATENOLOL 50 MG TAB PO SCH ×2 (20:46→20:55)
[2019-07-31] MEDS: POTASSIUM CHLORIDE ER 10 MEQ TAB.ER.PRT PO SCH (20:55)
[2019-08-01] MEDS: CLINDAMYCIN 900 MG in DEXTROSE 5% IN WATER 50 ML IVPB SCH ×2 (02:29)
[2019-08-01] MEDS: HYDROcodone/APAP 5-325MG 1 EACH TAB PO PRN ×4 (02:34→22:00)
[2019-08-01] MEDS: LEVOTHYROXINE 25 MCG TAB PO SCH (05:49)
[2019-08-01 07:10] LABS: Glucose,Whole Blood 110 mg/dL (75-99)
[2019-08-01] MEDS: INSULIN ASPART (NovoLOG) 100 UNIT/ML VIAL SQ SCH ×4 (07:53→20:43)
[2019-08-01 07:55] LABS: Basophils # (A) 0.1 k/uL (0-0.2); Basophils % (A) 1 %; Eosinophils % (A) 1 %; HCT 29.6 % (34.0-46.0); HGB 10.2 gm/dL (11.4-16.0); Lymphocytes # (A) 0.5 k/uL (1.0-4.8); Lymphocytes % (A) 6 %; MCH 31.4 pg (25.0-35.0); MCHC 34.5 g/dL (31.0-37.0); MCV 91.1 fL (80.0-100.0); Monocytes # (A) 1.2 k/uL (0-1.0); Monocytes % (A) 14 %; Neutrophils # (A) 6.3 k/uL (1.3-7.7); Neutrophils % (A) 76 %; Platelet Count 186 k/uL (150-450); RBC 3.25 m/uL (3.80-5.40); RDW 15.9 % (11.5-15.5); WBC 8.3 k/uL (3.8-10.6)
--- NOTE | 2019-08-01 08:08 | P.PN ---
Progress Note - Text Anesthesia POD 1 727. Patient is status post right TKR under general endotracheal anesthesia with a right adductor canal catheter placed for postoperative pain relief. With ropivacaine 0.2% running at 8 cc's per hour, the patient's VAS is (0, 2). Catheter site is clean dry and intact.
[2019-08-01] MEDS: ALLOPURINOL 100 MG TAB PO SCH (08:12)
[2019-08-01] MEDS: amLODIPine 5 MG TAB PO SCH (08:12)
[2019-08-01] MEDS: CALCIUM CARB-VIT D 500MG-200UN 1 EACH TAB PO SCH (08:14)
[2019-08-01] MEDS: ATENOLOL 50 MG TAB PO SCH ×2 (08:14→22:01)
[2019-08-01] MEDS: MELOXICAM 7.5 MG TAB PO SCH (08:15)
[2019-08-01] MEDS: FLUoxetine HCL 20 MG CAP PO SCH (08:15)
[2019-08-01] MEDS: metFORMIN 500 MG TAB PO SCH (08:15)
[2019-08-01] MEDS: ENOXAPARIN 30 MG/0.3 ML SYRINGE SQ SCH ×2 (08:15→20:42)
[2019-08-01] MEDS: POTASSIUM CHLORIDE ER 10 MEQ TAB.ER.PRT PO SCH (08:15)
[2019-08-01] MEDS: FAMOTIDINE 20 MG TAB PO SCH (08:15)
--- NOTE | 2019-08-01 08:46 | P.CONS ---
History of Present Illness - Reason for Consult Consult date: 08/01/19 - History of Present Illness This is a 79-year-old female patient of Dr. Rocha with past medical history of diabetes mellitus type 2, hypertension, hyperlipidemia, hypothyroidism, CVA on Plavix, gout, history of lymphoma status post chemotherapy and radiation therapy, history of esophageal cancer status post radiation. The patient has been brought into the hospital under the care of Dr. Thomas is status post right total knee arthroplasty. Patient has been started on Lovenox for DVT prophylaxis. Patient's blood pressure has been on the hypertensive side, asymptomatic. Patient did have some bleeding from the surgical site during the night and dressing was just changed. Appetite is good. No nausea or vomiting. Patient did have diarrhea on Wednesday which is completely resolved. She is passing gas and no bowel movement. Adductor canal catheter in place for pain control. Patient is planning to return home at the time of discharge. Patient has been off Plavix for 7 days prior to procedure. Review of Systems All systems: negative Constitutional: Denies anorexia, Denies chills, Denies fatigue, Denies fever, Denies lethargy, Denies malaise, Denies poor appetite, Denies weakness Eyes: denies blurred vision, denies pain Ears, nose, mouth and throat: Denies dysphagia, Denies headache, Denies nasal congestion, Denies nasal discharge, Denies sore throat Cardiovascular: Denies chest pain, Denies shortness of breath Respiratory: Denies cough, Denies cough with sputum, Denies dyspnea, Denies hemoptysis, Denies wheezing Gastrointestinal: Denies abdominal pain, Denies diarrhea, Denies loss of appeti te, Denies nausea, Denies vomiting Genitourinary: Denies dysuria, Denies hematuria, Denies urgency, Denies urinary frequency Musculoskeletal: Denies frequent falls, Denies gait dysfunction, Denies muscle weakness, Denies myalgias Integumentary: Denies pruritus, Denies rash, Denies wounds Neurological: Denies change in mentation, Denies change in speech, Denies numbness, Denies weakness Psychiatric: Denies anxiety, Denies depression Endocrine: Denies fatigue, Denies weight change Past Medical History Past Medical History: Cancer, CVA/TIA, Diabetes Mellitus, GERD/Reflux, Hyperlipidemia, Hypertension, Osteoarthritis (OA), Syncope, Thyroid Disorder Additional Past Medical History / Comment(s): TIA X2 -no residual effects, GOUT, LYMPHOMA (HX OF CHEMO & RADIATION 1977,1982 & 1993), hx migraines, hiatal hernia, constipation, radiation tx to esophagus for cancer, seen in 07/20/19 for lower back pain History of Any Multi-Drug Resistant Organisms: None Reported Past Surgical History: Appendectomy, Back Surgery, Cholecystectomy, Hysterectomy, Joint Replacement, Orthopedic Surgery, Tonsillectomy Additional Past Surgical History / Comment(s): RIGHT HIP REPAIR after fx(Plate), LEFT KNEE REPLACEMENT, surgery to straighten hammer toes-german feet, left BREAST & AXILLARY lymph node Biopsy, CERVICAL FUSION, LUMBAR LAMINECTOMY,DECOMPRESSION- FUSION, bone spur removed rt hip, screws in german thumbs, german cataracts Past Anesthesia/Blood Transfusion Reactions: No Reported Reaction Additional Past Anesthesia/Blood Transfusion Reaction / Comm: CLAUSTROPHOBIA, states no problems with intubation Past Psychological History: Anxiety, Depression Smoking Status: Never smoker Past Alcohol Use History: None Reported Additional Past Alcohol Use History / Comment(s): Patient is a lifelong nonsmoker, no illicit drug use, no marijuana use, no alcohol abuse. She drinks wine occasionally. She lives at home with her . Past Drug Use History: None Reported - Past Family History Father Family Medical History: Deep Vein Thrombosis (DVT) Additional Family Medical History / Comment(s): Father at age 32 from pulmonary embolism. Mother Family Medical History: Cancer Additional Family Medical History / Comment(s): Mother in her late 80s from breast cancer and also had dementia. Brother(s) Family Medical History: Cancer, Deep Vein Thrombosis (DVT) Additional Family Medical History / Comment(s): Patient had 2 brothers that have passed one from myocardial infarction and one from pulmonary embolism. 2 brothers are alive and one has lung cancer, one brother is alive with a brain aneurysm and CVA. Patient has 6 children with no major medical problems. Medications and Allergies Home Medications Medication Instructions Recorded Confirmed Type Allopurinol [Zyloprim] 100 mg PO DAILY 01/05/14 07/31/19 History Atenolol [Tenormin] 50 mg PO BID 01/05/14 07/31/19 History Calcium Carb-Vit D 500Mg-200Un 1 tab PO DAILY 01/05/14 07/31/19 History [Oscal 500+D] Diclofenac Sodium 75 mg PO BID 01/05/14 07/31/19 History Montelukast [Singulair] 10 mg PO HS 01/05/14 07/31/19 History amLODIPine BESYLATE [Norvasc] 5 mg PO QAM 01/05/14 07/31/19 History Levothyroxine Sodium [Synthroid] 12.5 mcg PO QAM 03/16/14 07/31/19 History Zolpidem [Ambien] 5 mg PO HS 03/16/14 07/31/19 History FLUoxetine HCL [PROzac] 20 mg PO QAM 07/24/14 07/31/19 History Clopidogrel Bisulfate [Clopidogrel] 75 mg PO DAILY 10/29/14 07/31/19 History metFORMIN HCL [Glucophage] 500 mg PO DAILY 11/12/17 07/31/19 History Lidocaine 5% Patch [Lidoderm] 1 patch TOPICAL DAILY #6 patch 07/20/19 07/31/19 Rx Famotidine [Pepcid] 20 mg PO DAILY 07/21/19 07/31/19 History Potassium Chloride 10 meq PO QAM 07/21/19 07/31/19 History Simvastatin [Zocor] 40 mg PO HS 07/21/19 07/31/19 History rOPINIRole HCL [Requip Xl] 2 mg PO BID 07/21/19 07/31/19 History Allergies Allergy/AdvReac Type Severity Reaction Status Date / Time cefaclor [From Ceclor] Allergy Rash/Hives Verified 07/31/19 09:07 ciprofloxacin [From Cipro] Allergy Rash/Hives Verified 07/31/19 09:07 ciprofloxacin HCl Allergy Rash/Hives Verified 07/31/19 09:07 [From Cipro] hydromorphone HCl Allergy Anaphylaxis Verified 07/31/19 09:07 [From Dilaudid] Penicillins Allergy Rash/Hives Verified 07/31/19 09:07 adhesive AdvReac red skin, Verified 07/31/19 09:07 blisters sulfamethoxazole AdvReac Abdominal Verified 07/31/19 09:07 [From Bactrim] Pain trimethoprim [From Bactrim] AdvReac Abdominal Verified 07/31/19 09:07 Pain Physical Exam Vitals: Vital Signs Temp Pulse Pulse Resp BP BP Pulse Ox 08/01/19 07:00 98.1 F 84 15 96/64 95 08/01/19 02:30 98.4 F 85 16 101/68 94 L 07/31/19 23:03 86 108/65 07/31/19 21:27 90 111/70 07/31/19 20:54 78 89/59 07/31/19 20:53 16 07/31/19 17:05 97.7 F 89 16 106/70 96 07/31/19 16:09 90 16 143/69 100 07/31/19 15:10 93 16 118/60 97 07/31/19 14:40 93 16 110/58 95 07/31/19 14:10 93 16 115/56 94 L 07/31/19 13:55 93 16 108/55 93 L 07/31/19 13:40 92 16 118/58 94 L 07/31/19 13:25 92 16 119/61 97 07/31/19 13:08 92 16 121/53 93 L 07/31/19 12:53 92 16 123/54 100 07/31/19 12:38 92 16 122/53 100 07/31/19 12:23 93 16 116/54 100 07/31/19 12:08 97.2 F L 99 16 132/51 96 07/31/19 09:44 98.3 F 88 16 155/73 98 Intake and Output 07/31/19 08/01/19 08/01/19 22:59 06:59 14:59 Intake Total 400 Output Total 400 300 Balance -400 100 Intake: Intake, IV Titration 400 Amount Sodium Chloride 0.9% 1, 400 000 ml @ 50 mls/hr IV . Q20H [facility] Rx#:[id number] Output: Urine 400 300 Other: # Voids 1 Weight 70 kg Gen: This is a 79-year-old female. Patient is resting in bed and appears to be comfortable in no acute distress. HEENT: Head is atraumatic, normocephalic. Pupils equal, round. Sclerae is anicteric. Oral mucous members are moist. NECK: Supple. No JVD. No lymphadenopathy. No thyromegaly. LUNGS: Clear to auscultation. No wheezes or rhonchi. No intercostal retractions. HEART: Regular rate and rhythm. No murmur. ABDOMEN: Soft. Bowel sounds are present. No masses. No tenderness. EXTREMITIES: No pedal edema. No calf tenderness. A dressing in place to the right knee with ice packs. No active bleeding on dressing. Dorsalis pedis +2 bilaterally. NEUROLOGICAL: Patient is awake, alert and oriented x3. Cranial nerves 2 through 12 are grossly intact. Results CBC & Chem 7: 08/01/19 06:55 Labs: Abnormal Lab Results - Last 24 Hours (Table) 07/31/19 07/31/19 07/31/19 Range/Units 09:19 12:26 17:08 RBC (3.80-5.40) m/uL Hgb (11.4-16.0) gm/dL Hct (34.0-46.0) % RDW (11.5-15.5) % Lymphocytes # (1.0-4.8) k/uL Monocytes # (0-1.0) k/uL POC Glucose (mg/dL) 113 H 137 H 150 H (75-99) mg/dL 07/31/19 08/01/19 08/01/19 Range/Units 20:12 06:55 06:58 RBC 3.25 L (3.80-5.40) m/uL Hgb 10.2 L (11.4-16.0) gm/dL Hct 29.6 L (34.0-46.0) % RDW 15.9 H (11.5-15.5) % Lymphocytes # 0.5 L (1.0-4.8) k/uL Monocytes # 1.2 H (0-1.0) k/uL POC Glucose (mg/dL) 203 H 110 H (75-99) mg/dL Assessment and Plan Plan: 1. Osteoarthritis status post right total knee arthroplasty. Continue current pain management per orthopedic surgeon. Continue PT and OT. Continue incentive spirometry to reduce incidence of atelectasis and hospital-acquired pneumonia. 2. Hypertension currently hypotensive. Blood pressure medications are on hold. 3. Hyperlipidemia. 4. Diabetes mellitus type 2. 5. Hypothyroidism. 6. History of lymphoma, remission. 7. History of esophageal cancer, remission. 8. History of CVA. Lasix will need to be resumed.. 9. DVT prophylaxis. Continue Lovenox. 10. GI prophylaxis. Pepcid. Discharge plan: home with home care Impression and plan of care have been directed as dictated by the signing physician. Karen Quintero nurse practitioner acting as scribe for signing physician.
[2019-08-01 12:07] LABS: Glucose,Whole Blood 117 mg/dL (75-99)
[2019-08-01] MEDS: SODIUM CHLORIDE 0.9% 1,000 ML IV SCH (12:12)
--- NOTE | 2019-08-01 12:55 | P.PN ---
Subjective Progress Note Date: 08/01/19 Principal diagnosis: Status post right total knee arthroplasty Patient is evaluated today at bedside, she is resting comfortably in her chair. She's ambulated with therapy. Patient was noted to have hypotension this morning, she is remaining on IV fluids. Denies any chest pain or shortness of breath at this time. Objective - Vital Signs Vital signs: Vital Signs Temp 98.1 F 08/01/19 07:00 Pulse 84 08/01/19 07:00 Resp 15 08/01/19 07:00 BP 96/64 08/01/19 07:00 Pulse Ox 95 08/01/19 07:00 Intake & Output 07/31/19 08/01/19 08/01/19 18:59 06:59 18:59 Intake Total 1807 400 200 Output Total 30 700 Balance 1777 -300 200 Weight 70 kg Intake: IV 1807 Intake, IV Titration 400 Amount Sodium Chloride 0.9% 1, 400 000 ml @ 50 mls/hr IV . Q20H [facility] Rx#:[id number] Oral 200 Output: Urine 700 Estimated Blood Loss 30 Other: # Voids 1 - Exam Right lower extremity: Incision is clean, dry, and intact. The diann are in good condition. There is minimal soft tissue swelling and ecchymosis surrounding the medial and lateral aspects of the incision. Calf is soft, no tenderness with palpation. Plantar flexion, dorsiflexion, EHL, FHL are intact. Sensory exam to light touch throughout the extremity is intact, dorsal pedis pulses 2+. - Labs CBC & Chem 7: 08/01/19 06:55 Labs: Abnormal Lab Results - Last 24 Hours (Table) 07/31/19 07/31/19 08/01/19 Range/Units 17:08 20:12 06:55 RBC 3.25 L (3.80-5.40) m/uL Hgb 10.2 L (11.4-16.0) gm/dL Hct 29.6 L (34.0-46.0) % RDW 15.9 H (11.5-15.5) % Lymphocytes # 0.5 L (1.0-4.8) k/uL Monocytes # 1.2 H (0-1.0) k/uL POC Glucose (mg/dL) 150 H 203 H (75-99) mg/dL 08/01/19 08/01/19 Range/Units 06:58 11:56 RBC (3.80-5.40) m/uL Hgb (11.4-16.0) gm/dL Hct (34.0-46.0) % RDW (11.5-15.5) % Lymphocytes # (1.0-4.8) k/uL Monocytes # (0-1.0) k/uL POC Glucose (mg/dL) 110 H 117 H (75-99) mg/dL Assessment and Plan Plan: Assessment: Postoperative day #1 status post right total knee arthroplasty Hypotension Plan: Pain control, continue current medication GI and DVT prophylaxis, will continue Lovenox. Patient does take Plavix for previous TIA. Did discuss with nursing to discuss with internal medicine DVT prophylaxis options for discharge Wound care instructions discussed Icing and elevating techniques discussed continue physical therapy at this time Medical recommendations Continue physical therapy Due to patient's low blood pressure and need for IV fluids, we'll keep patient overnight with plans for discharge home tomorrow. Time with Patient: Less than 30
[2019-08-01 16:51] LABS: Glucose,Whole Blood 136 mg/dL (75-99)
[2019-08-01] MEDS: LACTATED RINGERS 1,000 ML IV SCH (17:58)
[2019-08-01 20:42] LABS: Glucose,Whole Blood 176 mg/dL (75-99)
[2019-08-01] MEDS: MONTELUKAST 10 MG TAB PO SCH (20:42)
[2019-08-01] MEDS: SENNOSIDES-DOCUSATE SODIUM 1 EACH TAB PO SCH (20:43)
[2019-08-01] MEDS: ATORVASTATIN 20 MG TAB PO SCH (20:43)
[2019-08-02] MEDS: SODIUM CHLORIDE 0.9% 1,000 ML IV SCH (04:57)
[2019-08-02] MEDS: LEVOTHYROXINE 25 MCG TAB PO SCH (05:30)
[2019-08-02 07:06] LABS: Glucose,Whole Blood 160 mg/dL (75-99)
[2019-08-02 08:02] LABS: Glucose,Whole Blood 157 mg/dL (75-99)
[2019-08-02] MEDS: ALLOPURINOL 100 MG TAB PO SCH (08:16)
[2019-08-02] MEDS: amLODIPine 5 MG TAB PO SCH (08:16)
[2019-08-02] MEDS: ATENOLOL 50 MG TAB PO SCH ×2 (08:16→22:06)
[2019-08-02] MEDS ORDERED: SODIUM CHLORIDE 0.9% 500 ML 500 ML IV ONE ×2 (08:21→20:11)
[2019-08-02] MEDS: POTASSIUM CHLORIDE ER 10 MEQ TAB.ER.PRT PO SCH (08:26)
[2019-08-02] MEDS: FLUoxetine HCL 20 MG CAP PO SCH (08:26)
[2019-08-02] MEDS: CALCIUM CARB-VIT D 500MG-200UN 1 EACH TAB PO SCH (08:27)
[2019-08-02] MEDS: MELOXICAM 7.5 MG TAB PO SCH (08:27)
[2019-08-02] MEDS: FAMOTIDINE 20 MG TAB PO SCH (08:27)
[2019-08-02] MEDS: ENOXAPARIN 30 MG/0.3 ML SYRINGE SQ SCH ×2 (08:27→20:25)
[2019-08-02] MEDS: metFORMIN 500 MG TAB PO SCH (08:27)
[2019-08-02] MEDS: INSULIN ASPART (NovoLOG) 100 UNIT/ML VIAL SQ SCH ×4 (08:29→20:26)
[2019-08-02] MEDS: HYDROcodone/APAP 5-325MG 1 EACH TAB PO PRN ×2 (10:36→17:43)
[2019-08-02 10:51] LABS: Calcium 8.7 mg/dL (8.4-10.2); Potassium 4.3 mmol/L (3.5-5.1)
[2019-08-02 10:57] LABS: Basophils # (A) 0.4 k/uL (0-0.2); Basophils % (A) 3 %; Eosinophils % (A) 0 %; HCT 29.6 % (34.0-46.0); HGB 9.7 gm/dL (11.4-16.0); Lymphocytes # (A) 0.8 k/uL (1.0-4.8); Lymphocytes % (A) 7 %; MCH 29.9 pg (25.0-35.0); MCHC 32.9 g/dL (31.0-37.0); MCV 90.8 fL (80.0-100.0); Mean Platelet Volume 7.9; Monocytes # (A) 1.3 k/uL (0-1.0); Monocytes % (A) 11 %; Neutrophils # (A) 9.5 k/uL (1.3-7.7); Neutrophils % (A) 80 %; Platelet Count 181 k/uL (150-450); RBC 3.26 m/uL (3.80-5.40); RDW 13.3 % (11.5-15.5); WBC 11.9 k/uL (3.8-10.6)
[2019-08-02 11:21] LABS: Crenated RBC Present; Poikilocytosis (M) Present
[2019-08-02 11:29] LABS: Glucose,Whole Blood 172 mg/dL (75-99)
--- NOTE | 2019-08-02 12:54 | P.PN ---
Subjective Progress Note Date: 08/02/19 Principal diagnosis: Status post right total knee arthroplasty Patient is evaluated today at bedside, she is resting comfortably in her chair. She's ambulated with therapy. Patient did have another episode of low blood pressure. CBC and CMP were done, labs did demonstrate an elevated white count. I did order a urine analysis. Denies any chest pain or shortness of breath at this time. Objective - Vital Signs Vital signs: Vital Signs Temp 98.3 F 08/02/19 07:00 Pulse 90 08/02/19 08:36 Resp 18 08/02/19 07:47 BP 108/66 08/02/19 10:20 Pulse Ox 97 08/02/19 07:47 Intake & Output 08/01/19 08/02/19 08/02/19 18:59 06:59 18:59 Intake Total 660 0 Balance 660 0 Intake: Intake, IV Titration 0 Amount Sodium Chloride 0.9% 1, 0 000 ml @ 50 mls/hr IV . Q20H [facility] Rx#:[id number] Oral 660 Other: Voiding Method Toilet # Voids 2 1 - Exam Right lower extremity: Incision is clean, dry, and intact. The diann are in good condition. There is minimal soft tissue swelling and ecchymosis surrounding the medial and lateral aspects of the incision. Calf is soft, no tenderness with palpation. Plantar flexion, dorsiflexion, EHL, FHL are intact. Sensory exam to light touch throughout the extremity is intact, dorsal pedis pulses 2+. - Labs CBC & Chem 7: 08/02/19 08:44 08/02/19 08:44 Labs: Abnormal Lab Results - Last 24 Hours (Table) 08/01/19 08/01/19 08/02/19 Range/Units 16:39 20:30 06:55 WBC (3.8-10.6) k/uL RBC (3.80-5.40) m/uL Hgb (11.4-16.0) gm/dL Hct (34.0-46.0) % Neutrophils # (1.3-7.7) k/uL Lymphocytes # (1.0-4.8) k/uL Monocytes # (0-1.0) k/uL Basophils # (0-0.2) k/uL Sodium (137-145) mmol/L Carbon Dioxide (22-30) mmol/L Glucose (74-99) mg/dL POC Glucose (mg/dL) 136 H 176 H 160 H (75-99) mg/dL 08/02/19 08/02/19 08/02/19 Range/Units 07:50 08:44 08:44 WBC 11.9 H (3.8-10.6) k/uL RBC 3.26 L (3.80-5.40) m/uL Hgb 9.7 L (11.4-16.0) gm/dL Hct 29.6 L (34.0-46.0) % Neutrophils # 9.5 H (1.3-7.7) k/uL Lymphocytes # 0.8 L (1.0-4.8) k/uL Monocytes # 1.3 H (0-1.0) k/uL Basophils # 0.4 H (0-0.2) k/uL Sodium 133 L (137-145) mmol/L Carbon Dioxide 21 L (22-30) mmol/L Glucose 176 H (74-99) mg/dL POC Glucose (mg/dL) 157 H (75-99) mg/dL 08/02/19 Range/Units 11:17 WBC (3.8-10.6) k/uL RBC (3.80-5.40) m/uL Hgb (11.4-16.0) gm/dL Hct (34.0-46.0) % Neutrophils # (1.3-7.7) k/uL Lymphocytes # (1.0-4.8) k/uL Monocytes # (0-1.0) k/uL Basophils # (0-0.2) k/uL Sodium (137-145) mmol/L Carbon Dioxide (22-30) mmol/L Glucose (74-99) mg/dL POC Glucose (mg/dL) 172 H (75-99) mg/dL Assessment and Plan Plan: Assessment: Postoperative day #2 status post right total knee arthroplasty Hypotension Plan: Pain control, continue current medication GI and DVT prophylaxis, will continue Lovenox. Patient does take Plavix for previous TIA. Did discuss with nursing to discuss with internal medicine DVT prophylaxis options for discharge Wound care instructions discussed Icing and elevating techniques discussed continue physical therapy at this time Medical recommendations Continue physical therapy Due to patient's low blood pressure and need for IV fluids, we'll continue to hold patient. Time with Patient: Less than 30
--- NOTE | 2019-08-02 14:08 | P.PN ---
Subjective Progress Note Date: 08/02/19 This is a 79-year-old female patient of Dr. Rocha with past medical history of diabetes mellitus type 2, hypertension, hyperlipidemia, hypothyroidism, CVA on Plavix, gout, history of lymphoma status post chemotherapy and radiation therapy, history of esophageal cancer status post radiation. The patient has been brought into the hospital under the care of Dr. Thomas is status post right total knee arthroplasty. Patient has been started on Lovenox for DVT prophylaxis. Patient's blood pressure has been on the hypertensive side, asymptomatic. Patient did have some bleeding from the surgical site during the night and dressing was just changed. Appetite is good. No nausea or vomiting. Patient did have diarrhea on Wednesday which is completely resolved. She is passing gas and no bowel movement. Adductor canal catheter in place for pain control. Patient is planning to return home at the time of discharge. Patient has been off Plavix for 7 days prior to procedure. 08/02: Patient has been afebrile, heart rate 90, blood pressure 115/70, pulse ox 97% on room air. Patient did have a short syncopal episode with standing. IV fluid bolus ordered. Orthostatics were positive. Blood sugar running between 157-176. The patient is doing very well with physical therapy. She is been afebrile, heart rate 90, blood pressure 115/70, pulse ox 97% on room air. WBC 11.9, hemoglobin 9.7, platelet count 181. Sodium 133, potassium 4.3, chloride 103, CO2 21, BUN 12 and creatinine 0.82. Orthopedics has ordered a urinalysis. Plan is to monitor overnight and probable discharge tomorrow. Patient is still planning to go home with homecare. Review of Systems Constitutional: Denies anorexia, Denies chills, Denies fatigue, Denies fever, Denies lethargy, Denies malaise, Denies poor appetite, Denies weakness Eyes: denies blurred vision, denies pain Ears, nose, mouth and throat: Denies dysphagia, Denies headache, Denies nasal congestion, Denies nasal discharge, Denies sore throat Cardiovascular: Denies chest pain, Denies shortness of breath, reports syncope Respiratory: Denies cough, Denies cough with sputum, Denies dyspnea, Denies hem optysis, Denies wheezing Gastrointestinal: Denies abdominal pain, Denies diarrhea, Denies loss of appetite, Denies nausea, Denies vomiting Genitourinary: Denies dysuria, Denies hematuria, Denies urgency, Denies urinary frequency Musculoskeletal: Denies frequent falls, Denies gait dysfunction, Denies muscle weakness, Denies myalgias Integumentary: Denies pruritus, Denies rash, Denies wounds Neurological: Denies change in mentation, Denies change in speech, Denies numbness, Denies weakness Psychiatric: Denies anxiety, Denies depression Endocrine: Denies fatigue, Denies weight change Objective - Vital Signs Vital signs: Vital Signs Temp 98.3 F 08/02/19 07:00 Pulse 90 08/02/19 08:36 Resp 18 08/02/19 07:47 BP 115/70 08/02/19 08:36 Pulse Ox 97 08/02/19 07:47 Intake & Output 08/01/19 08/02/19 08/02/19 18:59 06:59 18:59 Intake Total 660 0 Balance 660 0 Intake: Intake, IV Titration 0 Amount Sodium Chloride 0.9% 1, 0 000 ml @ 50 mls/hr IV . Q20H [facility] Rx#:[id number] Oral 660 Other: Voiding Method Toilet # Voids 2 1 - Exam Gen: This is a 79-year-old female. Patient is resting in recliner and appears to be comfortable. HEENT: Head is atraumatic, normocephalic. Pupils equal, round. Sclerae is anicteric. Oral mucous members are moist. NECK: Supple. No JVD. No lymphadenopathy. No thyromegaly. LUNGS: Clear to auscultation. No wheezes or rhonchi. No intercostal retractions. HEART: Regular rate and rhythm. No murmur. ABDOMEN: Soft. Bowel sounds are present. No masses. No tenderness. EXTREMITIES: No pedal edema. No calf tenderness. A dressing in place to the right knee with ice packs. No active bleeding on dressing. Dorsalis pedis +2 bilaterally. NEUROLOGICAL: Patient is awake, alert and oriented x3. Cranial nerves 2 through 12 are grossly intact. - Labs CBC & Chem 7: 08/02/19 08:44 08/02/19 08:44 Labs: Abnormal Lab Results - Last 24 Hours (Table) 08/01/19 08/01/1920 Range/Units 11:56 16:39 20:30 POC Glucose (mg/dL) 117 H 136 H 176 H (75-99) mg/dL 08/02/19 08/02/19 Range/Units 06:55 07:50 POC Glucose (mg/dL) 160 H 157 H (75-99) mg/dL Assessment and Plan Plan: 1. Osteoarthritis status post right total knee arthroplasty. Continue current pain management per orthopedic surgeon. Continue PT and OT. Continue incentive spirometry to reduce incidence of atelectasis and hospital-acquired pneumonia. 2. Hypertension currently hypotensive with orthostatic changes. IV fluid bolus ordered. Blood pressure medications are on hold. 3. Hyperlipidemia. 4. Diabetes mellitus type 2. 5. Hypothyroidism. 6. History of lymphoma, remission. 7. History of esophageal cancer, remission. 8. History of CVA. Lasix will need to be resumed.. 9. DVT prophylaxis. Continue Lovenox. 10. GI prophylaxis. Pepcid. Discharge plan: home with [facility] on Impression and plan of care have been directed as dictated by the signing physician. Karen Quintero nurse practitioner acting as scribe for signing physician.
[2019-08-02 14:18] LABS: Appearance,Urine Clear (Clear); Bilirubin,Urine Negative (Negative); Blood,Urine Negative (Negative); Color,Urine Light Yellow; Glucose,Urine (UA) 1+ (Negative); Ketones,Urine Trace (Negative); Leukocyte Esterase,Urine Negative (Negative); Nitrite,Urine Negative (Negative); Protein,Urine Negative (Negative); Specific Gravity,Urine 1.011 (1.001-1.035); Urobilinogen,Urine <2.0 mg/dL (<2.0)
[2019-08-02 16:46] LABS: Glucose,Whole Blood 189 mg/dL (75-99)
[2019-08-02] MEDS: LACTATED RINGERS 1,000 ML IV SCH (17:45)
[2019-08-02 20:23] LABS: Glucose,Whole Blood 202 mg/dL (75-99)
[2019-08-02] MEDS: SENNOSIDES-DOCUSATE SODIUM 1 EACH TAB PO SCH (20:25)
[2019-08-02] MEDS: MONTELUKAST 10 MG TAB PO SCH (20:26)
[2019-08-02] MEDS: ATORVASTATIN 20 MG TAB PO SCH (20:26)
[2019-08-03] MEDS: SODIUM CHLORIDE 0.9% 1,000 ML IV SCH (00:11)
[2019-08-03 05:00] VITALS: RESP 16
[2019-08-03] MEDS: LEVOTHYROXINE 25 MCG TAB PO SCH (05:19)
[2019-08-03] MEDS: INSULIN ASPART (NovoLOG) 100 UNIT/ML VIAL SQ SCH ×2 (06:54→12:10)
[2019-08-03 07:05] LABS: Glucose,Whole Blood 133 mg/dL (75-99)
[2019-08-03] MEDS: HYDROcodone/APAP 5-325MG 1 EACH TAB PO PRN ×2 (07:05→13:19)
[2019-08-03 07:52] LABS: Basophils # (A) 0.1 k/uL (0-0.2); Basophils % (A) 1 %; Eosinophils % (A) 0 %; HCT 26.6 % (34.0-46.0); HGB 8.9 gm/dL (11.4-16.0); Lymphocytes # (A) 0.4 k/uL (1.0-4.8); Lymphocytes % (A) 4 %; MCHC 33.3 g/dL (31.0-37.0); MCV 90.1 fL (80.0-100.0); Mean Platelet Volume 7.2; Monocytes # (A) 0.9 k/uL (0-1.0); Monocytes % (A) 8 %; Neutrophils # (A) 8.9 k/uL (1.3-7.7); Neutrophils % (A) 84 %; Platelet Count 172 k/uL (150-450); RBC 2.95 m/uL (3.80-5.40); RDW 13.7 % (11.5-15.5); WBC 10.6 k/uL (3.8-10.6)
[2019-08-03] MEDS: ENOXAPARIN 30 MG/0.3 ML SYRINGE SQ SCH (10:04)
[2019-08-03] MEDS: metFORMIN 500 MG TAB PO SCH (10:04)
[2019-08-03] MEDS: FLUoxetine HCL 20 MG CAP PO SCH (10:04)
[2019-08-03] MEDS: MELOXICAM 7.5 MG TAB PO SCH (10:04)
[2019-08-03] MEDS: amLODIPine 5 MG TAB PO SCH (11:03)
[2019-08-03] MEDS: ATENOLOL 50 MG TAB PO SCH (11:03)
[2019-08-03] MEDS ORDERED: SODIUM CHLORIDE 0.9% 500 ML 500 ML IV ONE (11:12)
[2019-08-03] MEDS: FAMOTIDINE 20 MG TAB PO SCH (11:16)
[2019-08-03] MEDS: POTASSIUM CHLORIDE ER 10 MEQ TAB.ER.PRT PO SCH (11:17)
[2019-08-03] MEDS: CALCIUM CARB-VIT D 500MG-200UN 1 EACH TAB PO SCH (11:17)
[2019-08-03] MEDS: ALLOPURINOL 100 MG TAB PO SCH (11:17)
[2019-08-03 11:36] LABS: Glucose,Whole Blood 127 mg/dL (75-99)
--- NOTE | 2019-08-03 13:15 | P.PN ---
Progress Note - Text Progress Note Date: 08/03/19 Patient seen lying in bed. She reports doing much better today followed sure it had one more bowel of some nausea. She went to be discharged today she states that she has been cleared by her medical doctor for discharge as well. Her incision appears stable. Timmy and Homans were negative. Her distal neurovascular exam is intact. Impression: Status post right total knee arthroplasty Plan: Will discharge to home today
--- NOTE | 2019-08-03 13:23 | P.DS ---
Providers Date of admission: 08/01/19 12:55 Expected date of discharge: 08/03/19 Attending physician: Los Thomas Consults: 07/31/19 12:03 Consult Physician Routine Consulting Provider: Carlos Enrique Farooq Reason/Comments: Medical management Do you want consulting provider notified?: Yes Primary care physician: [facility] Course: Date of admission: 07/31/2019 Date of discharge: 08/03/2019 Admission diagnosis: Right knee osteoarthritis Discharge diagnosis: right total knee arthroplasty Attending physician: Los Thomas DO Surgical procedure: Right total knee arthroplasty Brief history: Patient is a 79-year-old female with a history of symptomatic right knee osteoarthritis. At this point patient has failed outpatient conser vative treatment measures and has opted to proceed with an elective total knee arthroplasty. Hospital course: Details the patient surgery can be found in the operative report. Patient tolerated the procedure well and was subsequently transported to orthopedic floor. Patient orthopedic and medical care was provided daily. Patient had daily laboratory tests performed for evaluation of overall blood counts. Patient had daily physical therapy to include strengthening, range of motion as well as education with walker ambulation. Patient had daily CPM usage as well as physical therapy program. Patient was treated with Lovenox for the postoperative DVT prophylaxis during there inpatient stay. Patient noted to have a relatively uneventful postoperative course. Patient reported satisfactor y pain control with oral pain medication by postoperative day 3. Patient showed satisfactory progress with physical therapy. Patient removed steadily through the program and had no difficulty meeting goals by postop day 3. Given patient's otherwise satisfactory course and having met physical therapy goals, plan is to discharge patient to to home on postoperative day 3. Discharge condition/disposition: Patient discharged to home in stable and satisfactory condition. Discharge medications: Patient is prescribed home medications per medicine as well as appropriate oral analgesics and anticoagulants. Discharge instructions: 1. Wound care and infectious precautions, keep incision dry and covered while showering, no lotions, creams, moisturized. No soaking, tubs, pools, hot tubs. Do not scrub over the incision 2. Weight-bear as tolerated with walker/cane until follow-up 3. Ice and elevate when necessary. Do not exceed 20 minutes per hour with ice pack. 4. Utilize compression sleeve until seen first postoperative appointment. 5. Visiting nursing care 6. Home physical therapy occluding home CPM. 7. Pain meds and anticoagulations per prescription 8. Pain medication has potential to cause constipation. Increase oral fluid and fiber intake. Contact primary care provider if you have not had a bowel movement within 48 hours after discharge. 9. No anti-inflammatory medication until discussed the first postoperative visit, this includes Motrin, Aleve, Mobic, diclofenac, . 10. Follow-up in [facility] in 2 weeks with Jose Elias Rice PA-C 11. Follow up with your primary care doctor 7-10 days after discharge. 12. Contact [facility] with any questions, Patient Condition at Discharge: Stable Plan - Discharge Summary Discharge Rx Participant: Yes New Discharge Prescriptions: New Aspirin [Adult Low Dose Aspirin EC] 81 mg PO BID #60 tablet. Docusate [Colace] 100 mg PO DAILY #30 capsule HYDROcodone/APAP 7.5-325MG [Palmer 7.5-325] 1 each PO Q6HR PRN #28 tab PRN Reason: Pain traMADol HCL [Ultram] 50 mg PO Q6HR PRN 7 Days #28 tab PRN Reason: Pain No Action Allopurinol [Zyloprim] 100 mg PO DAILY amLODIPine BESYLATE [Norvasc] 5 mg PO QAM Montelukast [Singulair] 10 mg PO HS Atenolol [Tenormin] 50 mg PO BID Diclofenac Sodium 75 mg PO BID Calcium Carb-Vit D 500Mg-200Un [Oscal 500+D] 1 tab PO DAILY Zolpidem [Ambien] 5 mg PO HS Levothyroxine Sodium [Synthroid] 12.5 mcg PO QAM FLUoxetine HCL [PROzac] 20 mg PO QAM Clopidogrel Bisulfate [Clopidogrel] 75 mg PO DAILY metFORMIN HCL [Glucophage] 500 mg PO DAILY Lidocaine 5% Patch [Lidoderm] 1 patch TOPICAL DAILY #6 patch Famotidine [Pepcid] 20 mg PO DAILY rOPINIRole HCL [Requip Xl] 2 mg PO BID Simvastatin [Zocor] 40 mg PO HS Potassium Chloride 10 meq PO QAM Discharge Medication List Allopurinol [Zyloprim] 100 mg PO DAILY 01/05/14 [History] Atenolol [Tenormin] 50 mg PO BID 01/05/14 [History] Calcium Carb-Vit D 500Mg-200Un [Oscal 500+D] 1 tab PO DAILY 01/05/14 [History] Diclofenac Sodium 75 mg PO BID 01/05/14 [History] Montelukast [Singulair] 10 mg PO HS 01/05/14 [History] amLODIPine BESYLATE [Norvasc] 5 mg PO QAM 01/05/14 [History] Levothyroxine Sodium [Synthroid] 12.5 mcg PO QAM 03/16/14 [History] Zolpidem [Ambien] 5 mg PO HS 03/16/14 [History] FLUoxetine HCL [PROzac] 20 mg PO QAM 07/24/14 [History] Clopidogrel Bisulfate [Clopidogrel] 75 mg PO DAILY 10/29/14 [History] metFORMIN HCL [Glucophage] 500 mg PO DAILY 11/12/17 [History] Lidocaine 5% Patch [Lidoderm] 1 patch TOPICAL DAILY #6 patch 07/20/19 [Rx] Famotidine [Pepcid] 20 mg PO DAILY 07/21/19 [History] Potassium Chloride 10 meq PO QAM 07/21/19 [History] Simvastatin [Zocor] 40 mg PO HS 07/21/19 [History] rOPINIRole HCL [Requip Xl] 2 mg PO BID 07/21/19 [History] Aspirin [Adult Low Dose Aspirin EC] 81 mg PO BID #60 tablet.dr 08/03/19 [Rx] Docusate [Colace] 100 mg PO DAILY #30 capsule 08/03/19 [Rx] HYDROcodone/APAP 7.5-325MG [Palmer 7.5-325] 1 each PO Q6HR PRN #28 tab 08/03/19 [Rx] traMADol HCL [Ultram] 50 mg PO Q6HR PRN 7 Days #28 tab 08/03/19 [Rx] Follow up Appointment(s)/Referral(s): [facility], [NON-STAFF] - As Needed [facility] [NON-STAFF] - As Needed (Continuous Passive Motion knee machine) Octaviano Rice PAC [PHYSICIAN PIPING SUPERVISOR] - 08/16/19 2:30 pm Alvarez Rocha DO [Primary Care Provider] - 08/16/19 11:45 am Patient Instructions/Handouts: Knee Replacement (DC) Activity/Diet/Wound Care/Special Instructions: Hold amlodipine at home until SBP >120. OK to take atenolol. Orthopedic discharge instructions: 1. Wound care infection precautions , no lotions, creams, moisturizers. No soaking, pools, hot tubs. Do not scrub over incision. 2. Weight-bear as tolerated with walker/cane until follow-up 3. Ice and elevate when necessary. Do not exceed 20 minutes per hour with ice pack. 4. Utilize compression sleeve until seen at first follow-up appointment. 5. Pain meds and anticoagulation per prescription. 6. Pain medication is potential to cause constipation. Increase oral fluids and fiber. Contact primary care provider. Has not had a bowel movement within 48 hours of discharge. 7. No anti-inflammatory medication and discussed at first postop visit, this includes Motrin, Aleve, Mobic, diclofenac,. 8. Follow up in office at 2 weeks postoperatively with Jose Elias Rice PA-C 9. Follow-up with primary care doctor within 7-10 days after discharge. 10. Contact [facility] with any questions, Discharge Disposition: HOME WITH HOME HEALTH SERVICES
[2019-08-03 14:57] VITALS: BP 108/54; PULSE 65; TEMP 99.1
--- NOTE | 2019-08-04 09:36 | P.PN ---
Subjective Progress Note Date: 08/03/19 This is a 79-year-old female patient of Dr. Rocha with past medical history of diabetes mellitus type 2, hypertension, hyperlipidemia, hypothyroidism, CVA on Plavix, gout, history of lymphoma status post chemotherapy and radiation therapy, history of esophageal cancer status post radiation. The patient has been brought into the hospital under the care of Dr. Thomas is status post right total knee arthroplasty. Patient has been started on Lovenox for DVT prophylaxis. Patient's blood pressure has been on the hypertensive side, asymptomatic. Patient did have some bleeding from the surgical site during the night and dressing was just changed. Appetite is good. No nausea or vomiting. Patient did have diarrhea on Wednesday which is completely resolved. She is passing gas and no bowel movement. Adductor canal catheter in place for pain control. Patient is planning to return home at the time of discharge. Patient has been off Plavix for 7 days prior to procedure. 08/02: Patient has been afebrile, heart rate 90, blood pressure 115/70, pulse ox 97% on room air. Patient did have a short syncopal episode with standing. IV fluid bolus ordered. Orthostatics were positive. Blood sugar running between 157-176. The patient is doing very well with physical therapy. She is been afebrile, heart rate 90, blood pressure 115/70, pulse ox 97% on room air. WBC 11.9, hemoglobin 9.7, platelet count 181. Sodium 133, potassium 4.3, chloride 103, CO2 21, BUN 12 and creatinine 0.82. Orthopedics has ordered a urinalysis. Plan is to monitor overnight and probable discharge tomorrow. Patient is still planning to go home with homecare. 08/03: Patient has been afebrile, heart rate 101, blood pressure 101/67, pulse ox 95% on room air. Repeat blood work reveals hemoglobin of 8.9, WBC 10.6. Blood sugars are running between 133 and 202. Urinalysis negative for infection. Pat ient states she has a little nauseated this morning only ET and toast. She has not had a bowel movement. She denies any dizziness. His blood pressure is on the low side, patient was instructed to hold amlodipine at home until systolic blood pressure greater than 120. Patient is scheduled for discharge home later today. Review of Systems Constitutional: Denies anorexia, Denies chills, Denies fatigue, Denies fever, Denies lethargy, Denies malaise, Denies poor appetite, Denies weakness Ears, nose, mouth and throat: Denies dysphagia, Denies headache, Denies nasal congestion, Denies nasal discharge, Denies sore throat Cardiovascular: Denies chest pain, Denies shortness of breath, reports syncope Respiratory: Denies cough, Denies cough with sputum, Denies dyspnea, Denies hemoptysis, Denies wheezing Gastrointestinal: Denies abdominal pain, Denies diarrhea, Denies loss of appetite, Denies nausea, Denies vomiting Genitourinary: Denies dysuria, Denies hematuria, Denies urgency, Denies urinary frequency Musculoskeletal: Denies frequent falls, Denies gait dysfunction, Denies muscle weakness, Denies myalgias Integumentary: Denies pruritus, Denies rash, Denies wounds Neurological: Denies change in mentation, Denies change in speech, Denies numbness, Denies weakness Psychiatric: Denies anxiety, Denies depression Endocrine: Denies fatigue, Denies weight change Objective - Vital Signs Vital signs: Vital Signs Temp 98.8 F 08/03/19 07:00 Pulse 101 H 08/03/19 07:00 Resp 16 08/03/19 07:00 BP 101/67 08/03/19 07:00 Pulse Ox 95 08/03/19 01:35 Intake & Output 08/02/19 08/03/19 08/03/19 18:59 06:59 18:59 Intake Total 950 400 Balance 950 400 Intake: Intake, IV Titration 700 400 Amount Sodium Chloride 0.9% 1, 200 400 000 ml @ 50 mls/hr IV . Q20H [facility] Rx#:[id number] Sodium Chloride 0.9% 500 500 ml 500 ml @ 999 mls/hr IV .Q31M [facility] Rx#:[id number] Oral 250 Other: Voiding Method Toilet # Voids 2 2 - Exam Gen: This is a 79-year-old female. Patient is resting in recliner and appears to be comfortable and in no acute distress. HEENT: Head is atraumatic, normocephalic. Pupils equal, round. Sclerae is anicteric. Oral mucous members are moist. NECK: Supple. No JVD. No lymphadenopathy. No thyromegaly. LUNGS: Clear to auscultation. No wheezes or rhonchi. No intercostal ret ractions. HEART: Regular rate and rhythm. No murmur. ABDOMEN: Soft. Bowel sounds are present. No masses. No tenderness. EXTREMITIES: No pedal edema. No calf tenderness. A dressing in place to the right knee with ice packs. No active bleeding on dressing. Dorsalis pedis +2 bilaterally. NEUROLOGICAL: Patient is awake, alert and oriented x3. Cranial nerves 2 through 12 are grossly intact. - Labs CBC & Chem 7: 08/03/19 07:16 08/02/19 08:44 Labs: Abnormal Lab Results - Last 24 Hours (Table) 08/02/19 08/02/19 08/02/19 Range/Units 08:44 08:44 11:17 WBC 11.9 H (3.8-10.6) k/uL RBC 3.26 L (3.80-5.40) m/uL Hgb 9.7 L (11.4-16.0) gm/dL Hct 29.6 L (34.0-46.0) % Neutrophils # 9.5 H (1.3-7.7) k/uL Lymphocytes # 0.8 L (1.0-4.8) k/uL Monocytes # 1.3 H (0-1.0) k/uL Basophils # 0.4 H (0-0.2) k/uL Sodium 133 L (137-145) mmol/L Carbon Dioxide 21 L (22-30) mmol/L Glucose 176 H (74-99) mg/dL POC Glucose (mg/dL) 172 H (75-99) mg/dL Urine Glucose (UA) (Negative) Urine Ketones (Negative) 08/02/19 08/02/19 08/02/19 Range/Units 13:07 16:45 20:12 WBC (3.8-10.6) k/uL RBC (3.80-5.40) m/uL Hgb (11.4-16.0) gm/dL Hct (34.0-46.0) % Neutrophils # (1.3-7.7) k/uL Lymphocytes # (1.0-4.8) k/uL Monocytes # (0-1.0) k/uL Basophils # (0-0.2) k/uL Sodium (137-145) mmol/L Carbon Dioxide (22-30) mmol/L Glucose (74-99) mg/dL POC Glucose (mg/dL) 189 H 202 H (75-99) mg/dL Urine Glucose (UA) 1+ H (Negative) Urine Ketones Trace H (Negative) 08/03/19 08/03/19 Range/Units 06:53 07:16 WBC (3.8-10.6) k/uL RBC 2.95 L (3.80-5.40) m/uL Hgb 8.9 L (11.4-16.0) gm/dL Hct 26.6 L (34.0-46.0) % Neutrophils # 8.9 H (1.3-7.7) k/uL Lymphocytes # 0.4 L (1.0-4.8) k/uL Monocytes # (0-1.0) k/uL Basophils # (0-0.2) k/uL Sodium (137-145) mmol/L Carbon Dioxide (22-30) mmol/L Glucose (74-99) mg/dL POC Glucose (mg/dL) 133 H (75-99) mg/dL Urine Glucose (UA) (Negative) Urine Ketones (Negative) Assessment and Plan Plan: 1. Osteoarthritis status post right total knee arthroplasty. Continue current pain management per orthopedic surgeon. Continue PT and OT. Continue incentive spirometry to reduce incidence of atelectasis and hospital-acquired pneumonia. 2. Hypertension currently hypotensive with orthostatic changes. IV fluid bolus ordered. Blood pressure medications are on hold until SBP >120. 3. Hyperlipidemia. 4. Diabetes mellitus type 2. 5. Hypothyroidism. 6. History of lymphoma, remission. 7. History of esophageal cancer, remission. 8. History of CVA. Lasix will need to be resumed.. 9. DVT prophylaxis. Continue Lovenox. 10. GI prophylaxis. Pepcid. Discharge plan: home with [facility] Impression and plan of care have been directed as dictated by the signing physician. Karen Quintero nurse practitioner acting as scribe for signing physician.
== END 2019-08-03 16:10 | disposition home health service (06) | DRG 470 ==
LOC: OR 08:36 → 4SSUR 11:54 → OR 08-01 12:55
PROVIDERS: ADMIT Orthopaedic Surgery; ATTEND Orthopaedic Surgery
PROC: 0SRC0J9 Replacement of Right Knee Joint with Synthetic Substitute, Cemented, Open Approach (ICD-10-PCS; principal; 2019-07-31 09:55)
DX: M17.11 Unilateral primary osteoarthritis, right knee (principal); E03.9 Hypothyroidism, unspecified; E11.9 Type 2 diabetes mellitus without complications; E78.5 Hyperlipidemia, unspecified; F40.240 Claustrophobia; K21.9 Gastro-esophageal reflux disease without esophagitis; F32.9 Major depressive disorder, single episode, unspecified; F41.9 Anxiety disorder, unspecified; M10.9 Gout, unspecified; R11.0 Nausea; I10 Essential (primary) hypertension; D72.829 Elevated white blood cell count, unspecified; G43.909 Migraine, unspecified, not intractable, without status migrainosus; K44.9 Diaphragmatic hernia without obstruction or gangrene; I95.1 Orthostatic hypotension; Z79.02 Long term (current) use of antithrombotics/antiplatelets; Z79.84 Long term (current) use of oral hypoglycemic drugs; Z79.899 Other long term (current) drug therapy; Z79.890 Hormone replacement therapy; Z88.1 Allergy status to other antibiotic agents; Z88.5 Allergy status to narcotic agent; Z88.0 Allergy status to penicillin; Z88.2 Allergy status to sulfonamides; Z98.1 Arthrodesis status; Z90.49 Acquired absence of other specified parts of digestive tract; Z98.42 Cataract extraction status, left eye; Z98.41 Cataract extraction status, right eye; Z96.1 Presence of intraocular lens; Z90.710 Acquired absence of both cervix and uterus; Z86.73 Personal history of transient ischemic attack (TIA), and cerebral infarction without residual deficits; Z85.01 Personal history of malignant neoplasm of esophagus; Z85.72 Personal history of non-Hodgkin lymphomas; Z92.21 Personal history of antineoplastic chemotherapy; Z92.3 Personal history of irradiation; Z96.652 Presence of left artificial knee joint; Z80.1 Family history of malignant neoplasm of trachea, bronchus and lung; Z80.3 Family history of malignant neoplasm of breast; Z82.3 Family history of stroke; Z82.49 Family history of ischemic heart disease and other diseases of the circulatory system
CPT/HCPCS: 64448; 76942; 80048; 81003; 85025; 88305; 88311

== ENCOUNTER → 2019-09-15 | Outpatient (CLI) | payer MEDICARE, BC ==
--- NOTE | 2019-09-15 11:00 | MR ---
EXAMINATION TYPE: MR lumbar spine wo/w con DATE OF EXAM: 09/15/2019 COMPARISON: Plain film 07/09/2015, lumbar MRI 12/14/2014 HISTORY: low back pain TECHNIQUE: Multiplanar, multisequence images of the lumbar spine were acquired pre- and postadministration 7.5 m L intravenous Gadavist gadolinium contrast. T12-L1 shows posterior extension of endplate disc complex causing anterior mass effect on the thecal sac. There is facet arthropathy with hypertrophy ligamentum flavum causing some moderate central sten osis. Some redundancy of the nerve roots are noted cephalad to this level consistent with mass effect , Conus is thought to terminate at this level. There is loss of disc height signal at this level cons istent with interval development of degenerative disc disease. There may be some left-sided foraminal encroachment. Endplate marrow signal changes felt likely to be due to degenerative disc disease. L1-L2: Disc space is nearly obliterated. There is posterior extension of heart disc causing minimal a nterior mass effect on the thecal sac. No definite foraminal encroachment. L2-L3: Disc space is nearly obliterated. No foraminal encroachment or disc herniation. L3-L4: Disc space is nearly obliterated. No herniation or foraminal encroachment. L4-L5: Loss of disc height signal is present. No evident disc herniation or foraminal encroachment. L5-S1: Normal disc appearance without desiccation. No herniation, protrusion or disc bulging. No ca nal stenosis is present. Right-sided neural foramen showing some foraminal encroachment due to minima l lateral extension of endplate disc complex on the right, minimal anterolisthesis grade 1. Loss of d isc height signal again noted. There is susceptibility artifact due to patient's hardware status post posterior fusion at L4-5 S1, L 1-2, prior fusion is stable at L2-3, L3-4. Interval change present, transpedicular screws at L3 have been removed in the interval. S1 screws again are thought likely to breach the anterior cortex of the vertebral body. There is no evident spinal stenosis at the lower levels. There is a spinal curvature . No paraspinal masses are identified. Probable cortical cyst present within the midpole right kidne y measuring 2.4 cm, some subcentimeter scattered additional cortical cyst present within the kidneys. No neurologic enhancement following contrast administration. IMPRESSION: Interval development of spinal stenosis, degenerative disc disease at T12-L1 as described.
== END | disposition home or self-care (01) ==
LOC: RADMRIMAIN 08:35
PROVIDERS: ATTEND Orthopaedic Surgery
DX: M48.061 Spinal stenosis, lumbar region without neurogenic claudication (principal); M51.35 Other intervertebral disc degeneration, thoracolumbar region
CPT/HCPCS: 72158; A9585

== ENCOUNTER → 2019-10-03 | Outpatient (CLI) | payer MEDICARE, BC ==
[2019-10-03 11:54] VITALS: BP 103/67; PULSE 71; RESP 16
--- NOTE | 2019-10-03 14:59 | P.PAINCN ---
History of Present Illness - Reason for Consult Consult date: 10/03/19 - History of Present Illness This is the initial consultation visit for this 79 years old female with a chronic history of severe low back pain, patient reported that she had history of chronic low back pain started more than 10 years ago, which required her to have lumbar fusion surgery, her symptoms improved after the surgery and 2-3 years ago she started having low back pain again which is increased in intensity over time, the pain is constant and radiated to the right lower extremity to the right foot, and to the left groin area, associated with some numbness and tingling sensation, patient continued to ambulate by herself, she feels some numbness and tingling sensation, she denies any change in the bowel movement or urination, she denies any fever or night sweats, she denies any motor or sensory deficits. Past Medical History Past Medical History: Cancer, Diabetes Mellitus, GERD/Reflux, Hyperlipidemia, Hypertension, Osteoarthritis (OA), Syncope Additional Past Medical History / Comment(s): TIA X2, SYNCOPE in 2013, VARICOSE VEINS, GOUT, LYMPHOMA (HX OF CHEMO & RADIATION 1977,1982 & 1993) History of Any Multi-Drug Resistant Organisms: None Reported Past Surgical History: Back Surgery, Cholecystectomy, Hysterectomy, Joint Replacement Additional Past Surgical History / Comment(s): RIGHT HIP REPAIR, LEFT KNEE REPLACEMENT, HAND & FOOT SURG, BREAST & AXILLARY BX, TUMOR IN THROAT REMOVED., CERVICAL FUSION, -16-15 LUMBAR LAMINECTOMY,DECOMPRESSION-FUSION L1-L2., right knee replaced 07-31-19 Past Anesthesia/Blood Transfusion Reactions: No Reported Reaction Additional Past Anesthesia/Blood Transfusion Reaction / Comm: CLAUSTROPHOBIA Past Psychological History: Anxiety, Depression Additional Psychological History / Comment(s): 1 week ago( end of 2019) Smoking Status: Never smoker Past Alcohol Use History: None Reported Additional Past Alcohol Use History / Comment(s): Patient is a lifelong nonsmoker, no illicit drug use, no marijuana use, no alcohol abuse. She drinks wine occasionally. Past Drug Use History: None Reported - Past Family History Father Family Medical History: Deep Vein Thrombosis (DVT) Additional Family Medical History / Comment(s): Father at age 32 from pulmonary embolism. Mother Family Medical History: Cancer Additional Family Medical History / Comment(s): Mother in her late 80s from breast cancer and also had dementia. Brother(s) Family Medical History: Cancer, Deep Vein Thrombosis (DVT) Additional Family Medical History / Comment(s): Patient had 2 brothers that have passed one from myocardial infarction and one from pulmonary embolism. 2 brothers are alive and one has lung cancer, one brother is alive with a brain aneurysm and CVA. Patient has 6 children with no major medical problems. Medications and Allergies Home Medications Medication Instructions Recorded Confirmed Type Allopurinol [Zyloprim] 100 mg PO DAILY 01/05/14 10/03/19 History Atenolol [Tenormin] 50 mg PO BID 01/05/14 10/03/19 History Calcium Carb-Vit D 500Mg-200Un 1 tab PO DAILY 01/05/14 10/03/19 History [Oscal 500+D] Diclofenac Sodium 75 mg PO BID 01/05/14 10/03/19 History Montelukast [Singulair] 10 mg PO HS 01/05/14 10/03/19 History amLODIPine BESYLATE [Norvasc] 5 mg PO QAM 01/05/14 10/03/19 History Levothyroxine Sodium [Synthroid] 12.5 mcg PO QAM 03/16/14 10/03/19 History Zolpidem [Ambien] 5 mg PO HS 03/16/14 10/03/19 History FLUoxetine HCL [PROzac] 20 mg PO QAM 07/24/14 10/03/19 History Clopidogrel Bisulfate [Clopidogrel] 75 mg PO DAILY 10/29/14 10/03/19 History metFORMIN HCL [Glucophage] 500 mg PO DAILY 11/12/17 10/03/19 History Famotidine [Pepcid] 20 mg PO DAILY 07/21/19 10/03/19 History Potassium Chloride 10 meq PO QAM 07/21/19 10/03/19 History Simvastatin [Zocor] 40 mg PO HS 07/21/19 10/03/19 History rOPINIRole HCL [Requip Xl] 2 mg PO BID 07/21/19 10/03/19 History HYDROcodone/APAP 7.5-325MG [[place] 0.5 each PO Q6HR PRN 09/28/19 10/03/19 History 7.5-325] Allergies Allergy/AdvReac Type Severity Reaction Status Date / Time cefaclor [From Ceclor] Allergy Rash/Hives Verified 10/03/19 11:55 ciprofloxacin [From Cipro] Allergy Rash/Hives Verified 10/03/19 11:55 ciprofloxacin HCl Allergy Rash/Hives Verified 10/03/19 11:55 [From Cipro] hydromorphone HCl Allergy Anaphylaxis Verified 10/03/19 11:55 [From Dilaudid] Penicillins Allergy Rash/Hives Verified 10/03/19 11:55 adhesive AdvReac red skin, Verified 10/03/19 11:55 blisters sulfamethoxazole AdvReac Abdominal Verified 10/03/19 11:55 [From Bactrim] Pain trimethoprim [From Bactrim] AdvReac Abdominal Verified 10/03/19 11:55 Pain Physical Exam Vitals: Vital Signs Pulse Resp BP Pulse Ox 10/03/19 11:48 71 16 103/67 100 sociale history = not a smoker, no IV drug use REVIEW OF ORGAN SYSTEMS: CONSTITUTIONAL: No fevers or chills. No recent weight loss. EYES: denies troubles with vision. HEENT: No difficulties with hearing. No nosebleeds. No difficulty swallowing. RESPIRATORY: Denies any troubles with breathing or dyspnea on exertion. CARDIOVASCULAR: Denies any chest pain, palpitations, or recent heart attacks. GASTROINTESTINAL: Denies fatty food intolerance. Has change in bowel habits and gas bloat. GENITOURINARY: Denies any blood in urine. Has increased urinary frequency. NEUROLOGICAL: + numbness and tingling along the distal extremities. No seizure disorders or headaches. MUSCULOSKELETAL: Has back pain. SKIN:no skin cancer. No rash. PSYCHIATRIC: Denies current depression or suicidal thoughts. ENDOCRINE: Denies current thyroid disorders. Denies any blood sugar glucose intolerance. HEME/LYMPHATIC: Denies any lumps and bumps around the neck. History of deep venous thrombosis. ALLERGY/IMMUNOLOGY: No immunoglobulin therapy. No immune deficiencies. BREAST: Denies current breast lumps, pain or nipple discharge. Physical Examinations : Constitutiona : Cooperative , not in acute distress . HEENT : nech : supple , no Lymphadenopathy , normal thyroid size . : eyes no ptosis , no icterus, no photophobia . : ENT normal of hearing , normal oropharynx , no Thrush . Respiratory : Chest clear to auscultations Bilaterally , no wheezing , no Rhonchi . Cardiovascula : regular rate and rhythem , S1 , S2 , no S3 , no S4. Gastrointestina : abdomen soft no tenderness , bowel sounds , no organomegally . Genitourinary : Defferred . neurologic : Cranial nerve II to XII intact , no focal neurological deffecit . psychatric : alert , oriented X 3 , appropriate affect , intact judgment and insight . Lymphatic : no Lymphadenopathy . musculoskeltal : Lumber spine moter stegnth lower extremities ,thigh and legs 4-5/5 Right side , 4-5/5 Left side deep tendon reflexes : normal Knee Jerk , normal ankle Jerk lumber facet Loading Test= positive Right , positive Left Range of motion of the lumbar spine Flexion 30 degrees, extension 10 degrees strait leg raising test , positive at 30 degree Fabere test= positive Right , and positive left . Sever tenderness over the Sacroiliac j oint on the Right , and Left sides [place] test= positive bilaterally. Seated flexion test= positive bilatera lly. 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 2- right trochanteric bursitis. 3-lumbar degenerative disc disease. 4-lumbar spinal stenosis. Patient could benefit from caudal epidural steroid injection with lysis of epidural adhesions under fluoroscopy guidance and at the same time we can do right trochanteric bursa steroid injection Patient has to hold Plavix for 1 week before the procedure ,and we will ask block placer/primary care for approval to hold Plavix Time with Patient: Greater than 30 PQRS Measure Charge Sheet Measure #130: Documentation of Current Meds in Medical Chart: Patient's medications documented in chart Measure #226: Tobacco Use: Screen & Cessation Intervention: Pt not a tobacco user Measure #111: Pneumonia Vaccination: Pneumococcal vaccine administered or previously received Measure #47: Advance Care Plan: Advance care planning discussed & documented, pt chose/unable to give Measure #412: Opioid Treatment Agreement: No documentation of signed opioid treatment agreement Measure #408: Opioid Therapy Follow-up Evaluation: Patient had NO f/u eval minimum every 3 months during opioid therapy Measure #317: Preventitive Care & Scrn High Bld Press & F/U: Normal blood pressure, f/u not required Measure #128: Body Mass Index (BMI) Screening & Follow-up: BMI documented ABOVE normal parameters - f/u documented Measure #131: Pain Assessment & Follow-up: Pain positive & plan documented, Follow-up scheduled Measure #431: Unhealthy Alcohol Use Preventative Care & Scrn: Patient not identified as an unhealthy alcohol user PQRS Narrative: Smoking Status Never smoker Blood Pressure 103/67 Pain Intensity [Back] 5 Scale Used Numeric (1 - 10) Hx Alcohol Use (MH) No Home Medications: Ambulatory Orders Allopurinol [Zyloprim] 100 mg PO DAILY 01/05/14 Atenolol [Tenormin] 50 mg PO BID 01/05/14 Calcium Carb-Vit D 500Mg-200Un [Oscal 500+D] 1 tab PO DAILY 01/05/14 Diclofenac Sodium 75 mg PO BID 01/05/14 Montelukast [Singulair] 10 mg PO HS 01/05/14 amLODIPine BESYLATE [Norvasc] 5 mg PO QAM 01/05/14 Levothyroxine Sodium [Synthroid] 12.5 mcg PO QAM 03/16/14 Zolpidem [Ambien] 5 mg PO HS 03/16/14 FLUoxetine HCL [PROzac] 20 mg PO QAM 07/24/14 Clopidogrel Bisulfate [Clopidogrel] 75 mg PO DAILY 10/29/14 metFORMIN HCL [Glucophage] 500 mg PO DAILY 11/12/17 Famotidine [Pepcid] 20 mg PO DAILY 07/21/19 Potassium Chloride 10 meq PO QAM 07/21/19 Simvastatin [Zocor] 40 mg PO HS 07/21/19 rOPINIRole HCL [Requip Xl] 2 mg PO BID 07/21/19 HYDROcodone/APAP 7.5-325MG [[place] 7.5-325] 0.5 each PO Q6HR PRN 09/28/19
== END | disposition home or self-care (01) ==
LOC: PNWHC3 11:40
PROVIDERS: ATTEND Specialist
DX: M48.061 Spinal stenosis, lumbar region without neurogenic claudication (principal); M51.36 Other intervertebral disc degeneration, lumbar region; M96.1 Postlaminectomy syndrome, not elsewhere classified; M19.90 Unspecified osteoarthritis, unspecified site; M70.61 Trochanteric bursitis, right hip; I10 Essential (primary) hypertension; E78.5 Hyperlipidemia, unspecified; M10.9 Gout, unspecified; E11.9 Type 2 diabetes mellitus without complications; Z98.1 Arthrodesis status; Z98.890 Other specified postprocedural states; Z79.1 Long term (current) use of non-steroidal anti-inflammatories (NSAID); Z79.890 Hormone replacement therapy; Z79.02 Long term (current) use of antithrombotics/antiplatelets; Z79.84 Long term (current) use of oral hypoglycemic drugs; Z79.891 Long term (current) use of opiate analgesic; Z88.1 Allergy status to other antibiotic agents; Z88.5 Allergy status to narcotic agent; Z88.0 Allergy status to penicillin; Z91.048 Other nonmedicinal substance allergy status; Z88.2 Allergy status to sulfonamides
CPT/HCPCS: 99211

== ENCOUNTER 2019-11-24 13:11 | Inpatient (IN) | payer MEDICARE, BC ==
[2019-11-24 13:46] LABS: Anisocytosis Moderate; Basophils # (A) 0.1 k/uL (0-0.2); Basophils % (A) 1 %; Eosinophils # (A) 0.1 k/uL (0-0.7); Eosinophils % (A) 1 %; HCT 35.5 % (34.0-46.0); Lymphocytes # (A) 0.8 k/uL (1.0-4.8); Lymphocytes % (A) 8 %; MCH 29.9 pg (25.0-35.0); MCHC 33.7 g/dL (31.0-37.0); MCV 88.8 fL (80.0-100.0); Monocytes % (A) 10 %; Neutrophils # (A) 8.2 k/uL (1.3-7.7); Neutrophils % (A) 79 %; Platelet Count 230 k/uL (150-450); RDW 20.1 % (11.5-15.5); WBC 10.4 k/uL (3.8-10.6)
[2019-11-24 13:55] LABS: Albumin 4.5 g/dL (3.5-5.0); Calcium 10.2 mg/dL (8.4-10.2); Potassium 4.5 mmol/L (3.5-5.1); Total Bilirubin 0.6 mg/dL (0.2-1.3); Total Protein 7.4 g/dL (6.3-8.2)
[2019-11-24] MEDS ORDERED: FAMOTIDINE 20 MG/2 ML VIAL IV STA (13:55)
[2019-11-24] MEDS ORDERED: diphenhydrAMINE 50 MG/ML 1 ML VIAL IVP STA (13:55)
[2019-11-24] MEDS ORDERED: methylPREDNISolone SOD SUCCI 125 MG/2 ML VIAL IV STA (13:55)
--- NOTE | 2019-11-24 14:06 | ED ---
GI Bleed HPI - General Chief complaint: GI Bleed Stated complaint: fall, bloody stools Time Seen by Provider: 11/24/19 13:20 Source: patient Mode of arrival: wheelchair Limitations: no limitations - History of Present Illness Initial comments: 79 year old female presenting for multiple complaints. Patient states she has been having black tarry stools for the past 4-5 days, today a jamie bright red bloody stool. Patient states it was accompanied by a dull aching pain the LLQ of the abdomen, denies nausea, vomiting, chest pain, SOB or upper abdominal pain. Patient on plavix. Patient also complaining of fall that occurred today she states she tripped falling on right side and attempted to catch her self. Denies feeling lightheaded, dizzy, chest pain, SOB or any complaints prior to falling, denies syncope stating she "tripped" and did not feel unwell. Patient denies hitting her head, denies neck pain/injury, headache, visual changes. Patient states she has chronic low back pain however since fall today it has increased, as well as new right shoulder, right knee and right hip.Denies inability to weight bear and ambulate, denies numbness tingling or loss of sensation of the LE/UE. Remaining ROS (-). Patient appears well no distress. VS stable she is very pleasant. - Related Data Home Medications Medication Instructions Recorded Confirmed Allopurinol [Zyloprim] 100 mg PO DAILY 01/05/14 11/24/19 Atenolol [Tenormin] 50 mg PO BID 01/05/14 11/24/19 Calcium Carb-Vit D 500Mg-200Un 1 tab PO DAILY 01/05/14 11/24/19 [Oscal 500+D] Diclofenac Sodium 75 mg PO BID 01/05/14 11/24/19 Montelukast [Singulair] 10 mg PO HS 01/05/14 11/24/19 amLODIPine BESYLATE [Norvasc] 5 mg PO DAILY 01/05/14 11/24/19 Levothyroxine Sodium [Synthroid] 12.5 mcg PO DAILY 03/16/14 11/24/19 Zolpidem [Ambien] 5 mg PO HS 03/16/14 11/24/19 FLUoxetine HCL [PROzac] 20 mg PO DAILY 07/24/14 11/24/19 Clopidogrel Bisulfate [Clopidogrel] 75 mg PO DAILY 10/29/14 11/24/19 metFORMIN HCL [Glucophage] 500 mg PO DAILY 11/12/17 11/24/19 Famotidine [Pepcid] 20 mg PO DAILY 07/21/19 11/24/19 Potassium Chloride 10 meq PO DAILY 07/21/19 11/24/19 Simvastatin [Zocor] 40 mg PO HS 07/21/19 11/24/19 rOPINIRole HCL [Requip Xl] 2 mg PO BID 07/21/19 11/24/19 Calcium Carb/Vitamin D3/Vit K1 1 tab PO DAILY 11/24/19 11/24/19 [Citracal Soft Chew] HYDROcodone/APAP 10-325MG [[place] 0.5 tab PO TID PRN 11/24/19 11/24/19 10-325] Allergies Allergy/AdvReac Type Severity Reaction Status Date / Time cefaclor [From Ceclor] Allergy Rash/Hives Verified 11/24/19 16:01 ciprofloxacin [From Cipro] Allergy Rash/Hives Verified 11/24/19 16:01 ciprofloxacin HCl Allergy Rash/Hives Verified 11/24/19 16:01 [From Cipro] hydromorphone HCl Allergy Anaphylaxis Verified 11/24/19 16:01 [From Dilaudid] Penicillins Allergy Rash/Hives Verified 11/24/19 16:01 adhesive AdvReac red skin, Verified 11/24/19 16:01 blisters sulfamethoxazole AdvReac Abdominal Verified 11/24/19 16:01 [From Bactrim] Pain trimethoprim [From Bactrim] AdvReac Abdominal Verified 11/24/19 16:01 Pain Review of Systems ROS Statement: Those systems with pertinent positive or pertinent negative responses have been documented in the HPI. ROS Other: All systems not noted in ROS Statement are negative. Past Medical History Past Medical History: Cancer, Diabetes Mellitus, GERD/Reflux, Hyperlipidemia, Hypertension, Osteoarthritis (OA), Syncope Additional Past Medical History / Comment(s): TIA X2, SYNCOPE in 2013, VARICOSE VEINS, GOUT, LYMPHOMA (HX OF CHEMO & RADIATION 1977,1982 & 1993) History of Any Multi-Drug Resistant Organisms: None Reported Past Surgical History: Back Surgery, Cholecystectomy, Hysterectomy, Joint Replacement, Orthopedic Surgery Additional Past Surgical History / Comment(s): RIGHT HIP REPAIR, LEFT KNEE REPLACEMENT, HAND & FOOT SURG, BREAST & AXILLARY BX, TUMOR IN THROAT REMOVED., CERVICAL FUSION, 02-07-15 LUMBAR LAMINECTOMY,DECOMPRESSION-FUSION L1-L2., right knee replaced 07-31-19 Past Anesthesia/Blood Transfusion Reactions: No Reported Reaction Additional Past Anesthesia/Blood Transfusion Reaction / Comment(s): CLAUSTROPHOBIA Past Psychological History: Anxiety, Depression Smoking Status: Never smoker Past Alcohol Use History: None Reported Past Drug Use History: None Reported - Past Family History Father Family Medical History: Deep Vein Thrombosis (DVT) Additional Family Medical History / Comment(s): Father at age 32 from pulmonary embolism. Mother Family Medical History: Cancer Additional Family Medical History / Comment(s): Mother in her late 80s from breast cancer and also had dementia. Brother(s) Family Medical History: Cancer, Deep Vein Thrombosis (DVT) Additional Family Medical History / Comment(s): Patient had 2 brothers that have passed one from myocardial infarction and one from pulmonary embolism. 2 brothers are alive and one has lung cancer, one brother is alive with a brain aneurysm and CVA. Patient has 6 children with no major medical problems. General Exam - General Exam Comments Initial Comments: General: The patient is awake and alert, in no distress, and does not appear acutely ill. Eye: Pupils are equal, round and reactive to light, extra-ocular movements are intact. No nystagmus. There is normal conjunctiva bilaterally. No signs of icterus. Ears, nose, mouth and throat: There are moist mucous membranes and no oral lesions. Neck: The neck is supple, there is no tenderness or JVD. Cardiovascular: There is a regular rate and rhythm. No murmur, rub or gallop is appreciated. Respiratory: Lungs are clear to auscultation, respirations are non-labored, breath sounds are equal. No wheezes, stridor, rales, or rhonchi. Gastrointestinal: [Soft, non-distended, non-tender abdomen without masses or organomegaly noted. There is no rebound or guarding present. No CVA tenderness. Bowel sounds are unremarkable.] Musculoskeletal: Normal inspection of the cervical, thoracic and lumbar spine. Some mild midline tenderness of lumbar. No brusiing of hips b/l., No rotations or shortening Normal ROM, no tenderness. Strength 5/5. Sensation intact. Pulses equal bilaterally 2+. Neurological: A&O x 3. CN II-XII intact, There are no obvious motor or sensory deficits. Coordination appears grossly intact. Speech is normal. Skin: Skin is warm and dry and no rashes or lesions are noted. Psychiatric: Cooperative, appropriate mood & affect, normal judgment. Limitations: no limitations Course Vital Signs 11/24/19 11/24/19 11/24/19 13:16 13:30 14:00 Temperature 98.4 F Pulse Rate 82 78 80 Respiratory 18 18 17 Rate Blood Pressure 123/77 139/76 O2 Sat by Pulse 98 100 98 Oximetry 11/24/19 11/24/19 11/24/19 14:30 15:00 15:30 Temperature Pulse Rate 82 78 79 Respiratory 18 18 19 Rate Blood Pressure 127/66 116/62 113/58 O2 Sat by Pulse 97 97 97 Oximetry 11/24/19 11/24/19 11/24/19 16:00 16:30 17:00 Temperature 98.2 F Pulse Rate 70 75 75 Respiratory 18 18 18 Rate Blood Pressure 111/61 122/62 119/67 O2 Sat by Pulse 97 98 98 Oximetry Medical Decision Making - Medical Decision Making 79-year-old feel presented for chief complaint of fall + dark stools. Patient presented for chief complaint of right knee pain and right hip pain right shoulder pain from fall as well as dark stools for multiple days with large amount of bright red blood per rectum today. Occult positive. Hemoglobin stable however with blood cell distribution width increased. Patient labs stable. Lactic elevated BP given fluids. Patient CT revealed diverticulosis. she is on thinners and i feel this is probable divertuclar bleed. Patient will be admitted on telemetry for GI consultation and montioring. Orthopedic on consu ltation as patient has possible noted femoral condylar fracture with point localized tenderness over the right knee. - Lab Data Result diagrams: 11/24/19 13:30 11/24/19 13:30 Lab Results 11/24/19 11/24/19 11/24/19 Range/Units 13:30 13:30 13:30 WBC 10.4 (3.8-10.6) k/uL RBC 4.00 (3.80-5.40) m/uL Hgb 12.0 (11.4-16.0) gm/dL Hct 35.5 (34.0-46.0) % MCV 88.8 (80.0-100.0) fL MCH 29.9 (25.0-35.0) pg MCHC 33.7 (31.0-37.0) g/dL RDW 20.1 H (11.5-15.5) % Plt Count 230 (150-450) k/uL Neutrophils % 79 % Lymphocytes % 8 % Monocytes % 10 % Eosinophils % 1 % Basophils % 1 % Neutrophils # 8.2 H (1.3-7.7) k/uL Lymphocytes # 0.8 L (1.0-4.8) k/uL Monocytes # 1.0 (0-1.0) k/uL Eosinophils # 0.1 (0-0.7) k/uL Basophils # 0.1 (0-0.2) k/uL Anisocytosis Moderate APTT 22.0 (22.0-30.0) sec Sodium (137-145) mmol/L Potassium (3.5-5.1) mmol/L Chloride (98-107) mmol/L Carbon Dioxide (22-30) mmol/L Anion Gap mmol/L BUN (7-17) mg/dL Creatinine (0.52-1.04) mg/dL Est GFR (CKD-EPI)AfAm (>60 ml/min/1.73 sqM) Est GFR (CKD-EPI)NonAf (>60 ml/min/1.73 sqM) Glucose (74-99) mg/dL Lactic Ac Sepsis Rflx Plasma Lactic Acid Luis (0.7-2.0) mmol/L Calcium (8.4-10.2) mg/dL Total Bilirubin (0.2-1.3) mg/dL AST (14-36) U/L ALT (4-34) U/L Alkaline Phosphatase (38-126) U/L Troponin I (0.000-0.034) ng/mL Total Protein (6.3-8.2) g/dL Albumin (3.5-5.0) g/dL Stool Occult Blood Positive H (Negative) Coronavirus (PCR) (Not Detectd) 11/24/19 11/24/19 11/24/19 Range/Units 13:30 13:30 13:30 WBC (3.8-10.6) k/uL RBC (3.80-5.40) m/uL Hgb (11.4-16.0) gm/dL Hct (34.0-46.0) % MCV (80.0-100.0) fL MCH (25.0-35.0) pg MCHC (31.0-37.0) g/dL RDW (11.5-15.5) % Plt Count (150-450) k/uL Neutrophils % % Lymphocytes % % Monocytes % % Eosinophils % % Basophils % % Neutrophils # (1.3-7.7) k/uL Lymphocytes # (1.0-4.8) k/uL Monocytes # (0-1.0) k/uL Eosinophils # (0-0.7) k/uL Basophils # (0-0.2) k/uL Anisocytosis APTT (22.0-30.0) sec Sodium 139 (137-145) mmol/L Potassium 4.5 (3.5-5.1) mmol/L Chloride 107 (98-107) mmol/L Carbon Dioxide 19 L (22-30) mmol/L Anion Gap 13 mmol/L BUN 34 H (7-17) mg/dL Creatinine 0.98 (0.52-1.04) mg/dL Est GFR (CKD-EPI)AfAm 64 (>60 ml/min/1.73 sqM) Est GFR (CKD-EPI)NonAf 56 (>60 ml/min/1.73 sqM) Glucose 157 H (74-99) mg/dL Lactic Ac Sepsis Rflx Plasma Lactic Acid Luis 2.5 H* (0.7-2.0) mmol/L Calcium 10.2 (8.4-10.2) mg/dL Total Bilirubin 0.6 (0.2-1.3) mg/dL AST 25 (14-36) U/L ALT 23 (4-34) U/L Alkaline Phosphatase 89 (38-126) U/L Troponin I <0.012 (0.000-0.034) ng/mL Total Protein 7.4 (6.3-8.2) g/dL Albumin 4.5 (3.5-5.0) g/dL Stool Occult Blood (Negative) Coronavirus (PCR) (Not Detectd) 11/24/19 11/24/19 Range/Units 15:11 15:24 WBC (3.8-10.6) k/uL RBC (3.80-5.40) m/uL Hgb (11.4-16.0) gm/dL Hct (34.0-46.0) % MCV (80.0-100.0) fL MCH (25.0-35.0) pg MCHC (31.0-37.0) g/dL RDW (11.5-15.5) % Plt Count (150-450) k/uL Neutrophils % % Lymphocytes % % Monocytes % % Eosinophils % % Basophils % % Neutrophils # (1.3-7.7) k/uL Lymphocytes # (1.0-4.8) k/uL Monocytes # (0-1.0) k/uL Eosinophils # (0-0.7) k/uL Basophils # (0-0.2) k/uL Anisocytosis APTT (22.0-30.0) sec Sodium (137-145) mmol/L Potassium (3.5-5.1) mmol/L Chloride (98-107) mmol/L Carbon Dioxide (22-30) mmol/L Anion Gap mmol/L BUN (7-17) mg/dL Creatinine (0.52-1.04) mg/dL Est GFR (CKD-EPI)AfAm (>60 ml/min/1.73 sqM) Est GFR (CKD-EPI)NonAf (>60 ml/min/1.73 sqM) Glucose (74-99) mg/dL Lactic Ac Sepsis Rflx Y Plasma Lactic Acid Luis (0.7-2.0) mmol/L Calcium (8.4-10.2) mg/dL Total Bilirubin (0.2-1.3) mg/dL AST (14-36) U/L ALT (4-34) U/L Alkaline Phosphatase (38-126) U/L Troponin I (0.000-0.034) ng/mL Total Protein (6.3-8.2) g/dL Albumin (3.5-5.0) g/dL Stool Occult Blood (Negative) Coronavirus (PCR) Not Detected (Not Detectd) Disposition Clinical Impression: Fall, GI bleed Disposition: ADMITTED IP TO THIS HOSP Condition: Stable Is patient prescribed a controlled substance at d/c from ED?: No Time of Disposition: 15:02 Decision to Admit Reason: Admit from EC Decision Date: 11/24/19 Decision Time: 15:02
--- NOTE | 2019-11-24 14:15 | XR ---
EXAMINATION TYPE: XR Hip Complete RT DATE OF EXAM: 11/24/2019 CLINICAL HISTORY: Right hip pain after fall TECHNIQUE: AP and frogleg views of the right hip are obtained. COMPARISON: None. FINDINGS: Surgical fixation of the right femur is seen with lateral fixation plate, 4 cortical screws and intramedullary nathaniel. No acute [place] bone fracture is identified nor fracture of the surgical andry dware. Partially visualized surgical hardware of the pelvis.. IMPRESSION: There is no acute fracture or malalignment seen of the right hip.
--- NOTE | 2019-11-24 14:18 | XR ---
EXAMINATION TYPE: XR knee complete RT DATE OF EXAM: 11/24/2019 CLINICAL HISTORY: Right knee pain after fall TECHNIQUE: Three views of the right knee are obtained. COMPARISON: None. FINDINGS: Curvilinear osseous fragment from the medial femoral condyle is not definitively seen on th e prior of 07/31/2019 and could be postsurgical or posttraumatic relating to a small chip or avulsion f racture. Correlate with point tenderness. Alignment of the right knee arthroplasty is maintained. No sizable joint effusion. IMPRESSION: Small osseous fragment medial to the distal medial femoral condyle may be postsurgical or posttraumatic related to a small chip/avulsion fracture. Correlate with point tenderness.
--- NOTE | 2019-11-24 14:21 | XR ---
EXAMINATION TYPE: XR lumbar spine 2 or 3V DATE OF EXAM: 11/24/2019 CLINICAL HISTORY: Back pain after fall TECHNIQUE: Frontal and lateral images of the lumbar spine are obtained. COMPARISON: 07/09/2015 FINDINGS: Extensive degenerative and postsurgical change of the lumbosacral spine appearing similar t o the prior of 07/09/2015. Surgical fusion of L1-L2 and L4-S1 with extensive heterotopic ossification and near osseous fusion of the vertebral bodies. Compression deformity of L2 and L1 appear present o n the prior of 2014. Diffuse osseous demineralization is seen. Dextroscoliotic curvature of the thora columbar spine. Cholecystectomy clips are present. IMPRESSION: Extensive postsurgical and degenerative change of the lumbar spine appears overall stable from 07/09/2015 with multilevel compression deformities also appearing present on the prior. Diffuse osseous demineralization somewhat limits exam.
--- NOTE | 2019-11-24 14:22 | XR ---
EXAMINATION TYPE: XR shoulder complete RT DATE OF EXAM: 11/24/2019 CLINICAL HISTORY: Right shoulder pain after fall TECHNIQUE: Three views of the right shoulder are obtained. COMPARISON: None. FINDINGS: There is no acute fracture/dislocation evident in the right shoulder. Postsurgical change of the right acromioclavicular joint is seen. Multifocal osteophytes of the humeral head are noted. T he acromioclavicular and glenohumeral joint spaces appear within normal limits. The visualized ribs are intact and unremarkable. IMPRESSION: There is no acute fracture or dislocation in the right shoulder. Postsurgical change of the right acromioclavicular joint and moderate arthropathy of the glenohumeral joint.
--- NOTE | 2019-11-24 14:48 | CT ---
EXAMINATION TYPE: CT abdomen pelvis w con DATE OF EXAM: 11/24/2019 HISTORY: RLQ, LLQ pain, bloody stools CT DLP: 826mGycm Automated Exposure Control for Dose Reduction was Utilized. CONTRAST: CT scan of the abdomen and pelvis is performed with IV Contrast, patient injected with 100 mL of Isov ue 300. COMPARISON: 02/04/2017 CT urogram FINDINGS: LUNG BASES: Minimal bibasilar subsegmental dependent atelectasis and redemonstration of right hemidia phragm elevation as seen on the prior CT urogram. LIVER/GB: Incomplete visualization of the liver due to right hemidiaphragm elevation. The visualized portions of the liver demonstrate minimal intrahepatic biliary duct dilatation and extrahepatic bilia ry ductal dilatation is seen on the prior 2017 and this patient that is post cholecystectomy. PANCREAS: No significant abnormality is seen. SPLEEN: Benign splenic granulomas are noted. ADRENALS: No significant abnormality is seen. KIDNEYS: 2.0 cm right midpole renal cysts. No hydronephrosis of either kidney. BOWEL: Lack of oral contrast limits evaluation of bowel. Moderate colonic fecal stasis is seen. No di lated large or small bowel. Mild bowel wall thickening of the redundant sigmoid colon on coronal imag es 69 through 51 is long segment and could relate to incomplete distention or BE sequela of chronic d iverticulosis. Neoplasm is less likely. Numerous sigmoid diverticula are seen without pericolonic fat stranding. LYMPH NODES: No greater than 1cm abdominal or pelvic lymph nodes are appreciated. 7 mm short axis pro minent lymph node is seen along the left pelvic sidewall on image 60. OSSEOUS STRUCTURES: Dextroscoliosis of the lumbar spine is seen with advanced multilevel degenerative disc disease. Postsurgical change at L4-S1 and L1-L2 are noted. The compression deformities at L1 an d L2 of the visualized given spray artifact from adjacent surgical fusion. Diffuse osseous deminerali zation also limits evaluation of the osseous structures. Spinal canal is limited on CT. Right femoral fixation device from prior fracture is partially seen. Irregularity of the L3 transverse processes a nd lamina could be postsurgical, posttraumatic, or related osseous demineralization. L3 removal of lobo rgical hardware suggested on coronal image 64. OTHER: Tortuosity of the abdominal aorta is seen with moderate to severe atherosclerosis of the abdom inal aorta and its branches. IMPRESSION: 1. Irregularity of the bilateral transverse processes and lamina at L3 are likely postsurgical as the re appears to be removed surgical hardware on the sagittal view. Correlate with surgical history. 2. Long segment mild bowel wall thickening of the sigmoid colon may relate to chronic diverticulosis, incomplete distention or less likely acute colitis. There is a prominent adjacent lymph node along t he left pelvic sidewall. Colonoscopy is recommended in this patient with rectal bleeding.
[2019-11-24] MEDS ORDERED: NALOXONE 0.4 MG/ML 1 ML VIAL IV PRN (14:58)
[2019-11-24] MEDS ORDERED: PANTOPRAZOLE 40 MG/10 ML VIAL IVP STA (14:58)
[2019-11-24] MEDS: SODIUM CHLORIDE 0.9% 1,000 ML IV SCH (15:16)
[2019-11-24] MEDS ORDERED: MORPHINE SULFATE 2 MG/ML SYRINGE IVP STA (16:37)
[2019-11-24] MEDS: HYDROcodone/APAP 10-325MG 1 EACH TAB PO PRN (19:27)
[2019-11-24] MEDS: ATORVASTATIN 20 MG TAB PO SCH (19:28)
[2019-11-24] MEDS: ATENOLOL 50 MG TAB PO SCH (19:28)
[2019-11-24] MEDS: MONTELUKAST 10 MG TAB PO SCH (19:28)
[2019-11-24 20:44] LABS: Glucose,Whole Blood 120 mg/dL (75-99)
[2019-11-24] MEDS ORDERED: ETODOLAC 400 MG TAB PO SCH (21:00)
--- NOTE | 2019-11-24 21:03 | P.HPIM ---
History of Present Illness H&P Date: 11/24/19 Chief Complaint: GI bleed, acute blood loss anemia, lightness, fall and right knee fracture, 79-year-old female one of Dr. Rocha patient with multiple medical problem who is known to have history of type 2 diabetes, risk cancer, hypertension, hyperlipidemia and osteoarthritis who has been treated for lower back pain post multiple lower back surgery patient had multiple epidural injection with pain management at [facility] and has been doing injection of Dr. Rocha office apparently last few days. She has been taking more anti- inflammatory agent. Patient presented to demurs department at [facility] today with multiple complain she has initially complain of black stool for the last 3 days and finally started having bright red blood per rectum consistent with left lower quadrant pain and discomfort with mild nausea with no vomiting. Also patient early today tripped and fell on the right side and attempt to catch herself without any syncopal episode but developed to have right knee injury for a prostatic knee was done in July by Dr. Thomas. Her x-ray provided showed partial fracture. Patient Hemoccult was positive hemoglobin still at 12 mg lactic acid was mildly elevated. Patient was started on IV resuscitation type and cross was done patient will be admitted to the hospital for the above problem. Review of Systems CONSTITUTIONAL: Well-developed no acute respiratory distress. EYES: No icterus sclerae, no conjunctivitis. EARS, NOSE, MOUTH, THROAT, and FACE: No sore throat, lymphadenopathy, carotid br uits or deformity. RESPIRATORY: No SOB cough or wheezes. CARDIOVASCULAR: No CP, Palpitation, PND, Orthopnea, or angina. GASTROINTESTINAL: Positive colitis with diverticulitis tarry stool and bright re d blood per rectum. GENITOURINARY: Negative for Hematuria or UTI, no kidney stones. INTEGUMENT/BREAST: Negative for any muscular injury with mild osteoarthritis.. HEMATOLOGIC/LYMPHATIC: Negative for bleed or purpura. MUSCULOSKELTAL: Right knee injury with significant pain bruise and decrease ability to put pressure on it. NEURLOGICAL: No LOC, Sz or syncope, blurred vision dizziness or abnormality.. BEHAVIORAL/PSYCH: Negative. ENDOCRINE: Negative. Past Medical History Past Medical History: Cancer, Diabetes Mellitus, GERD/Reflux, Hyperlipidemia, Hypertension, Osteoarthritis (OA), Syncope Additional Past Medical History / Comment(s): TIA X2, SYNCOPE in 2013, VARICOSE VEINS, GOUT, LYMPHOMA (HX OF CHEMO & RADIATION 1977,1982 & 1993) History of Any Multi-Drug Resistant Organisms: None Reported Past Surgical History: Back Surgery, Cholecystectomy, Hysterectomy, Joint Replacement, Orthopedic Surgery Additional Past Surgical History / Comment(s): RIGHT HIP REPAIR, LEFT KNEE REPLACEMENT, HAND & FOOT SURG, BREAST & AXILLARY BX, TUMOR IN THROAT REMOVED., CERVICAL FUSION, 02-07-15 LUMBAR LAMINECTOMY,DECOMPRESSION-FUSION L1-L2., right knee replaced 07-31-19 Past Anesthesia/Blood Transfusion Reactions: No Reported Reaction Additional Past Anesthesia/Blood Transfusion Reaction / Comment(s): CLAUSTROPHOB IA Past Psychological History: Anxiety, Depression Smoking Status: Never smoker Past Alcohol Use History: None Reported Past Drug Use History: None Reported - Past Family History Father Family Medical History: Deep Vein Thrombosis (DVT) Additional Family Medical History / Comment(s): Father at age 32 from pulmonary embolism. Mother Family Medical History: Cancer Additional Family Medical History / Comment(s): Mother in her late 80s from breast cancer and also had dementia. Brother(s) Family Medical History: Cancer, Deep Vein Thrombosis (DVT) Additional Family Medical History / Comment(s): Patient had 2 brothers that have passed one from myocardial infarction and one from pulmonary embolism. 2 brothers are alive and one has lung cancer, one brother is alive with a brain aneurysm and CVA. Patient has 6 children with no major medical problems. Medications and Allergies Home Medications Medication Instructions Recorded Confirmed Type Allopurinol [Zyloprim] 100 mg PO DAILY 01/05/14 11/24/19 History Atenolol [Tenormin] 50 mg PO BID 01/05/14 11/24/19 History Calcium Carb-Vit D 500Mg-200Un 1 tab PO DAILY 01/05/14 11/24/19 History [Oscal 500+D] Diclofenac Sodium 75 mg PO BID 01/05/14 11/24/19 History Montelukast [Singulair] 10 mg PO HS 01/05/14 11/24/19 History amLODIPine BESYLATE [Norvasc] 5 mg PO DAILY 01/05/14 11/24/19 History Levothyroxine Sodium [Synthroid] 12.5 mcg PO DAILY 03/16/14 11/24/19 History Zolpidem [Ambien] 5 mg PO HS 03/16/14 11/24/19 History FLUoxetine HCL [PROzac] 20 mg PO DAILY 07/24/14 11/24/19 History Clopidogrel Bisulfate [Clopidogrel] 75 mg PO DAILY 10/29/14 11/24/19 History metFORMIN HCL [Glucophage] 500 mg PO DAILY 11/12/17 11/24/19 History Famotidine [Pepcid] 20 mg PO DAILY 07/21/19 11/24/19 History Potassium Chloride 10 meq PO DAILY 07/21/19 11/24/19 History Simvastatin [Zocor] 40 mg PO HS 07/21/19 11/24/19 History rOPINIRole HCL [Requip Xl] 2 mg PO BID 07/21/19 11/24/19 History Calcium Carb/Vitamin D3/Vit K1 1 tab PO DAILY 11/24/19 11/24/19 History [Citracal Soft Chew] HYDROcodone/APAP 10-325MG [[place] 0.5 tab PO TID PRN 11/24/19 11/24/19 History 10-325] Allergies Allergy/AdvReac Type Severity Reaction Status Date / Time cefaclor [From Ceclor] Allergy Rash/Hives Verified 11/24/19 16:01 ciprofloxacin [From Cipro] Allergy Rash/Hives Verified 11/24/19 16:01 ciprofloxacin HCl Allergy Rash/Hives Verified 11/24/19 16:01 [From Cipro] hydromorphone HCl Allergy Anaphylaxis Verified 11/24/19 16:01 [From Dilaudid] Penicillins Allergy Rash/Hives Verified 11/24/19 16:01 adhesive AdvReac red skin, Verified 11/24/19 16:01 blisters sulfamethoxazole AdvReac Abdominal Verified 11/24/19 16:01 [From Bactrim] Pain trimethoprim [From Bactrim] AdvReac Abdominal Verified 11/24/19 16:01 Pain Physical Exam Vitals: Vital Signs Temp Pulse Resp BP Pulse Ox 11/24/19 17:00 98.2 F 75 18 119/67 98 11/24/19 16:30 75 18 122/62 98 11/24/19 16:00 70 18 111/61 97 11/24/19 15:30 79 19 113/58 97 11/24/19 15:00 78 18 116/62 97 11/24/19 14:30 82 18 127/66 97 11/24/19 14:00 80 17 139/76 98 11/24/19 13:30 78 18 100 11/24/19 13:16 98.4 F 82 18 123/77 98 Intake and Output 11/24/19 11/24/19 11/24/19 06:59 14:59 22:59 Other: Weight 63.957 kg 63.957 kg General Appearance: Alert, cooperative, no distress, appears stated age. Neck HEENT: Supple, no lymphadenopathy, no thyroid enlargement, no carotid bruits. Lungs: Clear to auscultation without crackles or wheezes no rhonchi, no deformity. Chest Wall: Decrease expansion with deep inspiration no tenderness and no deformity was found on exam, no costochondral pain or discomfort. Heart: Regular rate and rhythm, S1, S2 positive S3 no JVD. Back: Multiple scar tissue in the lumbar area with significant discomfort and tenderness in the upper and lower lumbar area bilaterally. Abdomen: Soft positive bowel sounds significant discomfort left lower quadrant area and mid lower abdominal region area no rebound or rigidity not able to feel any organomegaly. Extremities: Trace edema positive scar tissue over both knees from previous surgery significant pain and discomfort and mild swelling and bruise on the right knee compared to the left side. Pulses: 2+ and symmetric. Skin: Skin color, texture, tugor normal, no rashes or lesions. Neurologic: Alert oriented x3 cranial nerves II through XII intact, no motor deficit, no abnormal balance or gait. Results CBC & Chem 7: 11/24/19 13:30 11/24/19 13:30 Labs: Abnormal Lab Results - Last 24 Hours (Table) 11/24/19 11/24/19 11/24/19 Range/Units 13:30 13:30 13:30 RDW 20.1 H (11.5-15.5) % Neutrophils # 8.2 H (1.3-7.7) k/uL Lymphocytes # 0.8 L (1.0-4.8) k/uL Carbon Dioxide 19 L (22-30) mmol/L BUN 34 H (7-17) mg/dL Glucose 157 H (74-99) mg/dL POC Glucose (mg/dL) (75-99) mg/dL Plasma Lactic Acid Luis (0.7-2.0) mmol/L Stool Occult Blood Positive H (Negative) 11/24/19 11/24/19 Range/Units 13:30 20:43 RDW (11.5-15.5) % Neutrophils # (1.3-7.7) k/uL Lymphocytes # (1.0-4.8) k/uL Carbon Dioxide (22-30) mmol/L BUN (7-17) mg/dL Glucose (74-99) mg/dL POC Glucose (mg/dL) 120 H (75-99) mg/dL Plasma Lactic Acid Luis 2.5 H* (0.7-2.0) mmol/L Stool Occult Blood (Negative) Thrombosis Risk Factor Assmnt - DVT/VTE Prophylaxis DVT/VTE Prophylaxis: Pharmacologic Prophylaxis ordered, Mechanical Prophylaxis ordered - Choose All That Apply Any of the Below Risk Factors Present?: Yes Each Risk Factor Represents 3 Points: Age 75 years or older Other congenital or acquired thrombophilia - If yes, enter type in comment: No Thrombosis Risk Factor Assessment Total Risk Factor Score: 3 Thrombosis Risk Factor Assessment Level: Moderate Risk Assessment and Plan Assessment: 1 acute gastrointestinal bleed: With significant tarry stool and bright red blood per rectum this is could be combination of upper and lower GI bleed or the severity of the upper GI bleed can be the cause of bright red blood per rectum, despite the severity patient hemoglobin still stable at this point continue H&H every 8 hours GI consultation continue PPI IV. 2 acute blood loss anemia: Hemoglobin still stable at this point no need for blood transfusion yet. 3 colitis: With significant change in the interim because of the colon area consistent with acute colitis addition to diverticulitis, we will start Flagyl at this point continue to watch for any further bright red blood per rectum and GI consult with possible need for colonoscopy. 4 fall with right knee fracture, small osseous fragment medial to the distal medial femoral condyle may be postsurgical of post traumatic related to small chip or avulsion fracture, that knee had surgery done in July with the fall most likely the cause of fracture will consult orthopedic at this point. 5 diabetes: Continue patient on metformin along with NovoLog per sliding scales coverage. 6 chronic lower back pain with multiple surgery and multiple injection so far which probably aggravated the bleed is the overuse of anti-inflammatory agent beside been on Plavix. Patient can benefit from smaller dose of hydrocodone along with muscle relaxer with try to avoid steroids at this point as well. 7 hyperlipidemia: Resume simvastatin 40 mg daily. 8 Hypertension: Remain on amlodipine 5 mg a day and atenolol 50 mg daily. 9 history of TIA patient has been on Plavix which will be held for now we'll wait till left leg GI bleed stopped completely. 10 gout: Continue Zyloprim at 100 mg daily. 11 restless leg syndrome: Patient has been on Requip XL 2 mg twice a day. 12 lactic acidosis: Most likely from the hypoperfusion related to the GI bleed repeat lactic acid if it's abnormal continue fluid resuscitation. 13 DVT prophylaxis: Patient will have knee-high MYRA hose. 14 GI prophylaxis: Remain on pantoprazole IV. CODE STATUS: Full code. Admit patient to inpatient status for more than 2 nights.
[2019-11-24] MEDS: INSULIN ASPART (NovoLOG) 100 UNIT/ML VIAL SQ SCH (22:19)
[2019-11-24] MEDS: ZOLPIDEM 5 MG TAB PO SCH (22:32)
[2019-11-24 22:39] LABS: Glucose,Whole Blood 123 mg/dL (75-99)
[2019-11-25] MEDS: metroNIDAZOLE-NS PMX 500 MG in SALINE 1 100ML.BAG IVPB SCH ×4 (00:34→23:56)
[2019-11-25] MEDS: SODIUM CHLORIDE 0.9% 1,000 ML IV SCH ×3 (00:34→10:31)
[2019-11-25] MEDS: HYDROcodone/APAP 10-325MG 1 EACH TAB PO PRN ×3 (04:51→22:40)
[2019-11-25] MEDS: LEVOTHYROXINE 25 MCG TAB PO SCH (06:19)
[2019-11-25 07:18] LABS: Glucose,Whole Blood 116 mg/dL (75-99)
[2019-11-25] MEDS: INSULIN ASPART (NovoLOG) 100 UNIT/ML VIAL SQ SCH ×4 (07:40→20:23)
[2019-11-25] MEDS: ALLOPURINOL 100 MG TAB PO SCH (07:47)
[2019-11-25] MEDS: FLUoxetine HCL 20 MG CAP PO SCH (07:47)
[2019-11-25] MEDS: amLODIPine 5 MG TAB PO SCH (07:48)
[2019-11-25] MEDS: ATENOLOL 50 MG TAB PO SCH ×2 (07:48→20:23)
[2019-11-25] MEDS: CALCIUM CARB-VIT D 500MG-200UN 1 EACH TAB PO SCH (07:48)
[2019-11-25 08:46] LABS: African American GFR (CKD) >90 (>60 ml/min/1.73 sqM); Anion Gap 5 mmol/L; Blood Urea Nitrogen 20 mg/dL (7-17); Calcium 8.9 mg/dL (8.4-10.2); Carbon Dioxide 24 mmol/L (22-30); Chloride 109 mmol/L (98-107); Glucose 111 mg/dL (74-99); Non-African American GFR(CKD) 85 (>60 ml/min/1.73 sqM); Potassium 4.2 mmol/L (3.5-5.1); Sodium 138 mmol/L (137-145)
[2019-11-25 08:50] LABS: Anisocytosis Slight; Basophils % (A) 1 %; Eosinophils % (A) 1 %; HCT 30.3 % (34.0-46.0); Hypochromasia Slight; Lymphocytes # (A) 0.4 k/uL (1.0-4.8); Lymphocytes % (A) 9 %; MCH 28.3 pg (25.0-35.0); MCHC 31.7 g/dL (31.0-37.0); MCV 89.3 fL (80.0-100.0); Monocytes # (A) 0.3 k/uL (0-1.0); Monocytes % (A) 7 %; Neutrophils # (A) 3.8 k/uL (1.3-7.7); Neutrophils % (A) 80 %; Platelet Count 161 k/uL (150-450); RDW 18.5 % (11.5-15.5); WBC 4.7 k/uL (3.8-10.6)
[2019-11-25 08:53] LABS: HGB 9.6 gm/dL (11.4-16.0)
[2019-11-25] MEDS ORDERED: FAMOTIDINE 20 MG TAB PO SCH (09:00)
[2019-11-25] MEDS ORDERED: PANTOPRAZOLE 40 MG/10 ML VIAL IVP SCH (09:00)
--- NOTE | 2019-11-25 11:00 | CONS ---
CONSULTATION DATE OF SERVICE: 11/25/2019. REQUESTING PHYSICIAN: Dr. Avelar. REASON FOR CONSULTATION: GI bleed. HISTORY OF PRESENT ILLNESS: The patient is a 79-year-old pleasant white female admitted to the hospital with melena that started yesterday morning. She had about 4 episodes of black tarry stools followed by bright red blood in the stool. She became concerned and came to the emergency room and subsequently admitted to the hospital for further evaluation. Hemoglobin at the time of admission to the hospital was 12 g/dL and this morning is down to 9.6 g/dL. She denies any NSAID use. She denies any prior history of peptic ulcer disease. She has been on diclofenac sodium for almost 4 years for degenerative joint disease. Her last EGD was about 7 or 8 years ago. Her last colonoscopy was around the same time. She has been taking Plavix and the last dose was yesterday. PAST MEDICAL HISTORY: Significant for hypertension, history of CVA in the past, gastroesophageal reflux disease, diabetes mellitus, hyperlipidemia. PAST SURGICAL HISTORY: Cholecystectomy, back surgery, hysterectomy, left knee replacement, breast biopsy. MEDICATIONS: At home include Zyloprim, Tenormin, calcium, diclofenac sodium, Singulair, Norvasc, Synthroid, Ambien, Prozac, Plavix, Glucophage, Pepcid, Zocor, Requip, calcium supplements, [place] p.r.n. ALLERGIES: CIPRO, PENICILLIN, BACTRIM AND CECLOR. SOCIAL HISTORY: No smoking. No alcohol use. FAMILY HISTORY: Father had DVT. Mother of breast cancer. REVIEW OF SYSTEMS: CARDIOPULMONARY: No chest pain or shortness of breath. GENITOURINARY: No dysuria or hematuria. MUSCULOSKELETAL: Unremarkable. SKIN unremarkable. ENDOCRINE unremarkable. PSYCHIATRIC unremarkable. NEUROLOGY unremarkable. ENT/vision unremarkable. CONSTITUTIONAL: No recent weight loss. No fever, chills, night sweats. PHYSICAL EXAMINATION: Blood pressure is 122/77, pulse 82, temperature 98.4. HEENT examination unremarkable. Conjunctivae pink. Sclerae anicteric. Oral cavity no lesions. NECK: No JVD or lymph node enlargement. CHEST: Clear to auscultation. HEART: Regular rate and rhythm. ABDOMEN: Soft, it was nontender, nondistended. Bowel sounds are positive. No organomegaly. EXTREMITIES: No pedal edema. SKIN no rashes. NEUROLOGIC: Alert and oriented x3. No focal deficits. LABS: From yesterday WBC 10.4, hemoglobin 12, platelets 230, BUN 34, creatinine 0.982. Lab from today hemoglobin 9.2. IMPRESSION: 1. Acute gastrointestinal bleed, possibly upper in etiology. The patient has been taking diclofenac sodium for the last 2-3 years duration and hence possibility of peptic ulcer disease needs to be considered. She has also been taking aspirin for prior history of cerebrovascular accident, which is currently on hold since yesterday. Hemoglobin dropped from 12-9.6. Clinically doing well. She had no further bleeding all day today. Remains on Protonix 40 mg twice daily. 2. History of transient ischemic attack/cerebrovascular accident in the past, on Plavix which is currently on hold. 3. History of hypertension, diabetes mellitus, and hyperlipidemia. RECOMMENDATION: 1. Continue with Protonix 40 mg twice daily. 2. Start on clear liquid diet. 3. We will proceed with an upper endoscopy tomorrow. The patient understands risks, benefits, and complications of the procedure. 4. Hold Plavix for now. 5. Monitor CBC on a daily basis and we will follow with you closely. Thank you for this consultation. MMODL / IJN: [id number] /
[2019-11-25 11:22] LABS: Glucose,Whole Blood 106 mg/dL (75-99)
--- NOTE | 2019-11-25 12:00 | P.PN ---
Subjective Progress Note Date: 11/25/19 79-year-old female one of Dr. Rocha patient with multiple medical problem who is known to have history of type 2 diabetes, risk cancer, hypertension, hyperlipidemia and osteoarthritis who has been treated for lower back pain post multiple lower back surgery patient had multiple epidural inj ection with pain management at [facility] and has been doing injection of Dr. Rocha office apparently last few days. She has been taking more anti- inflammatory agent. Patient [facility] demurs [facility] today with multiple complain she has initially complain of black stool for the last 3 days and finally started having bright red blood per rectum consistent with left lower quadrant pain and discomfort with mild nausea with no vomiting. Also patient early today tripped and fell on the right side and attempt to catch herself without any syncopal episode but developed to have right knee injury for a prostatic knee was done in July by Dr. Thomas. Her x-ray provided daysi wed partial fracture. Patient Hemoccult was positive hemoglobin still at 12 mg lactic acid was mildly elevated. Patient was started on IV resuscitation type and cross was done patient will be admitted to the hospital for the above problem. 11/24: Patient seen on the med-surg floor. The patient has not had any bowel movements overnight. She continues to have some abdominal tenderness. No nausea or vomiting. Her last colonoscopy was with Dr. Horne 6-7 years ago. She has followed with Dr. Maldonado in the office several years ago and was referred for Botox injection. Patient has been seen by Dr. Cho with plan for EGD tomorrow. Patient has been afebrile, heart rate 71, blood pressure 110/67, pulse ox 97% on room air. Repeat blood work reveals WBC 7.1, hemoglobin 9.6, platelet count 161. BUN 20 creatinine 0.67. Blood sugars running 111 223. Objective - Vital Signs Vital signs: Vital Signs Temp 97.6 F 11/25/19 04:15 Pulse 71 11/25/19 04:15 Resp 16 11/25/19 04:15 BP 110/67 11/25/19 04:15 Pulse Ox 97 11/25/19 04:15 Intake & Output 11/24/19 11/25/19 11/25/19 18:59 06:59 18:59 Intake Total 360 Balance 360 Weight 63.957 kg Intake: Intake, IV Titration 360 Amount Sodium Chloride 0.9% 1, 360 000 ml @ 120 mls/hr IV . Q8H20M [facility] Rx#:[id number] Other: Voiding Method Toilet # Voids 3 - Exam Review of Systems CONSTITUTIONAL: Well-developed no acute respiratory distress. Denies fever, denies chills. EYES: No icterus sclerae, no conjunctivitis. EARS, NOSE, MOUTH, THROAT, and FACE: No sore throat, lymphadenopathy, carotid bruits or deformity. RESPIRATORY: No SOB cough or wheezes. CARDIOVASCULAR: No CP, Palpitation, PND, Orthopnea, or angina. GASTROINTESTINAL: Reports abdominal pain. colitis with diverticulitis tarry stool and bright red blood per rectum. GENITOURINARY: Negative for Hematuria or UTI, no kidney stones. INTEGUMENT/BREAST: Negative for any muscular injury with mild osteoarthritis.. HEMATOLOGIC/LYMPHATIC: Negative for bleed or purpura. MUSCULOSKELTAL: Right knee injury with significant pain bruise and decrease ability to put pressure on it. NEURLOGICAL: No LOC, Sz or syncope, blurred vision dizziness or abnormality.. BEHAVIORAL/PSYCH: Negative. ENDOCRINE: Negative. Physical examination General Appearance: Alert, cooperative, no distress, appears stated age. Neck HEENT: Supple, no lymphadenopathy, no thyroid enlargement, no carotid bruits. Lungs: Clear to auscultation without crackles or wheezes no rhonchi, no deformity. Chest Wall: Decrease expansion with deep inspiration no tenderness and no deformity was found on exam, no costochondral pain or discomfort. Heart: Regular rate and rhythm, S1, S2 positive S3 no JVD. Back: Multiple scar tissue in the lumbar area with significant discomfort and tenderness in the upper and lower lumbar area bilaterally. Abdomen: Soft positive bowel sounds significant discomfort left upper quadrant area, mid epigastric, and right lower abdominal region. No rebound or rigidity not able to feel any organomegaly. Extremities: Trace edema positive scar tissue over both knees from previous surgery significant pain and discomfort and mild swelling and bruise on the right knee compared to the left side. Pulses: 2+ and symmetric. Skin: Skin color, texture, tugor normal, no rashes or lesions. Neurologic: Alert oriented x3 cranial nerves II through XII intact, no motor deficit, no abnormal balance or gait. - Labs CBC & Chem 7: 11/25/19 08:17 11/25/19 08:17 Labs: Abnormal Lab Results - Last 24 Hours (Table) 11/24/19 11/24/19 11/24/19 Range/Units 13:30 13:30 13:30 RDW 20.1 H (11.5-15.5) % Neutrophils # 8.2 H (1.3-7.7) k/uL Lymphocytes # 0.8 L (1.0-4.8) k/uL Carbon Dioxide 19 L (22-30) mmol/L BUN 34 H (7-17) mg/dL Glucose 157 H (74-99) mg/dL POC Glucose (mg/dL) (75-99) mg/dL Plasma Lactic Acid Luis (0.7-2.0) mmol/L Stool Occult Blood Positive H (Negative) 11/24/19 11/24/19 11/24/19 Range/Units 13:30 20:43 22:19 RDW (11.5-15.5) % Neutrophils # (1.3-7.7) k/uL Lymphocytes # (1.0-4.8) k/uL Carbon Dioxide (22-30) mmol/L BUN (7-17) mg/dL Glucose (74-99) mg/dL POC Glucose (mg/dL) 120 H 123 H (75-99) mg/dL Plasma Lactic Acid Luis 2.5 H* (0.7-2.0) mmol/L Stool Occult Blood (Negative) 11/25/19 Range/Units 07:17 RDW (11.5-15.5) % Neutrophils # (1.3-7.7) k/uL Lymphocytes # (1.0-4.8) k/uL Carbon Dioxide (22-30) mmol/L BUN (7-17) mg/dL Glucose (74-99) mg/dL POC Glucose (mg/dL) 116 H (75-99) mg/dL Plasma Lactic Acid Luis (0.7-2.0) mmol/L Stool Occult Blood (Negative) Assessment and Plan Plan: 1 acute gastrointestinal bleed: With significant tarry stool and bright red blood per rectum this is could be combination of upper and lower GI bleed or the severity of the upper GI bleed can be the cause of bright red blood per rectum. Repeat CBC in the morning. Patient is scheduled for EGD tomorrow with Dr. Cho. Continue Protonix twice daily . 2 acute blood loss anemia: Hemoglobin still stable at this point no need for blood transfusion yet. 3 colitis: With significant change in the interim because of the colon area consistent with acute colitis addition to diverticulitis, we will start Flagyl at this point continue to watch for any further bright red blood per rectum and GI consult with possible need for colonoscopy. 4 fall with right knee fracture, small osseous fragment medial to the distal medial femoral condyle may be postsurgical of post traumatic related to small chip or avulsion fracture, that knee had surgery done in July with the fall most likely the cause of fracture will consult orthopedic at this point. 5 diabetes: Continue patient on metformin along with NovoLog per sliding scales coverage. 6 chronic lower back pain with multiple surgery and multiple injection so far which probably aggravated the bleed is the overuse of anti-inflammatory agent beside been on Plavix. Patient can benefit from smaller dose of hydrocodone along with muscle relaxer with try to avoid steroids at this point as well. 7 hyperlipidemia: Resume simvastatin 40 mg daily. 8 Hypertension: Remain on amlodipine 5 mg a day and atenolol 50 mg daily. 9 history of TIA patient has been on Plavix which will be held for now we'll wait till left leg GI bleed stopped completely. 10 gout: Continue Zyloprim at 100 mg daily. 11 restless leg syndrome: Patient has been on Requip XL 2 mg twice a day. 12 lactic acidosis: Most likely from the hypoperfusion related to the GI bleed repeat lactic acid if it's abnormal continue fluid resuscitation. 13 DVT prophylaxis: Patient will have knee-high MYRA hose. 14 GI prophylaxis: Remain on pantoprazole IV. CODE STATUS: Full code. Discharge plan: To be determined Impression and plan of care have been directed as dictated by the signing physician. Karen Quintero nurse practitioner acting as scribe for signing physician.
[2019-11-25] MEDS: MORPHINE SULFATE 2 MG/ML SYRINGE IVP PRN (12:30)
[2019-11-25 13:43] LABS: Hemoglobin A1C 6.8 % (4.0-6.0)
--- NOTE | 2019-11-25 15:09 | P.CNOR ---
History of Present Illness - [facility] Consult date: 11/25/19 Consult reason: joint pain History of present illness: Patient is 79-year-old female who was admitted to [facility] yesterday afternoon as regards to a likely GI bleed and fall. Patient lost her balance while at home yesterday falling onto her right side. At the time, she complained of right knee, right hip and right shoulder pain. Imaging and lab tests were done at the hospital, there was questionable small avulsion fracture off the medial femoral condyle near the knee replacement. She was admitted under internal medicine with other medical specialties on consult. Patient was evaluated at bedside, she is resting comfortably. She notes some pain along the medial aspect of the knee. She denies any worsening pain of the right hip or right shoulder at this time. She does have a history of a right intertrochanteric femur fracture that was fixed about 5 years ago with a plate and screw. She has also had a shoulder arthroscopy procedure done by Dr. Thomas, this was done about 2 years ago. She does have a history of chronic low back pain with previous surgeries and other treatment modalities. She states that her back pain still bothers her quite a bit. She is actually s cheduled for a procedure on her back and it was canceled due to the current viral pandemic. Currently the patient is scheduled for a upper GI scope tomorrow due to the GI bleed. Review of Systems Constitutional: Reports as per [facility] Past Medical History Past Medical History: Cancer, Diabetes Mellitus, GERD/Reflux, Hyperlipidemia, Hypertension, Osteoarthritis (OA), Syncope Additional Past Medical History / Comment(s): TIA X2, SYNCOPE in 2013, VARICOSE VEINS, GOUT, LYMPHOMA (HX OF CHEMO & RADIATION 1977,1982 & 1993) History of Any Multi-Drug Resistant Organisms: None Reported Past Surgical History: Back Surgery, Cholecystectomy, Hysterectomy, Joint Replacement, Orthopedic Surgery Additional Past Surgical History / Comment(s): RIGHT HIP REPAIR, LEFT KNEE REPLACEMENT, HAND & FOOT SURG, BREAST & AXILLARY BX, TUMOR IN THROAT REMOVED., CERVICAL FUSION, 02-07-15 LUMBAR LAMINECTOMY,DECOMPRESSION-FUSION L1-L2., right knee replaced 07-31-19 Past Anesthesia/Blood Transfusion Reactions: No Reported Reaction Additional Past Anesthesia/Blood Transfusion Reaction / Comm: CLAUSTROPHOBIA Past Psychological History: Anxiety, Depression Smoking Status: Never smoker Past Alcohol Use History: None Reported Past Drug Use History: None Reported - Past Family History Father Family Medical History: Deep Vein Thrombosis (DVT) Additional Family Medical History / Comment(s): Father at age 32 from pulmonary embolism. Mother Family Medical History: Cancer Additional Family Medical History / Comment(s): Mother in her late 80s from breast cancer and also had dementia. Brother(s) Family Medical History: Cancer, Deep Vein Thrombosis (DVT) Additional Family Medical History / Comment(s): Patient had 2 brothers that have passed one from myocardial infarction and one from pulmonary embolism. 2 brothers are alive and one has lung cancer, one brother is alive with a brain aneurysm and CVA. Patient has 6 children with no major medical problems. Medications and Allergies Home Medications Medication Instructions Recorded Confirmed Type Allopurinol [Zyloprim] 100 mg PO DAILY 01/05/14 11/24/19 History Atenolol [Tenormin] 50 mg PO BID 01/05/14 11/24/19 History Calcium Carb-Vit D 500Mg-200Un 1 tab PO DAILY 01/05/14 11/24/19 History [Oscal 500+D] Diclofenac Sodium 75 mg PO BID 01/05/14 11/24/19 History Montelukast [Singulair] 10 mg PO HS 01/05/14 11/24/19 History amLODIPine BESYLATE [Norvasc] 5 mg PO DAILY 01/05/14 11/24/19 History Levothyroxine Sodium [Synthroid] 12.5 mcg PO DAILY 03/16/14 11/24/19 History Zolpidem [Ambien] 5 mg PO HS 03/16/14 11/24/19 History FLUoxetine HCL [PROzac] 20 mg PO DAILY 07/24/14 11/24/19 History Clopidogrel Bisulfate [Clopidogrel] 75 mg PO DAILY 10/29/14 11/24/19 History metFORMIN HCL [Glucophage] 500 mg PO DAILY 11/12/17 11/24/19 History Famotidine [Pepcid] 20 mg PO DAILY 07/21/19 11/24/19 History Potassium Chloride 10 meq PO DAILY 07/21/19 11/24/19 History Simvastatin [Zocor] 40 mg PO HS 07/21/19 11/24/19 History rOPINIRole HCL [Requip Xl] 2 mg PO BID 07/21/19 11/24/19 History Calcium Carb/Vitamin D3/Vit K1 1 tab PO DAILY 11/24/19 11/24/19 History [Citracal Soft Chew] HYDROcodone/APAP 10-325MG [[place] 0.5 tab PO TID PRN 11/24/19 11/24/19 History 10-325] Allergies Allergy/AdvReac Type Severity Reaction Status Date / Time cefaclor [From Ceclor] Allergy Rash/Hives Verified 11/24/19 16:01 ciprofloxacin [From Cipro] Allergy Rash/Hives Verified 11/24/19 16:01 ciprofloxacin HCl Allergy Rash/Hives Verified 11/24/19 16:01 [From Cipro] hydromorphone HCl Allergy Anaphylaxis Verified 11/24/19 16:01 [From Dilaudid] Penicillins Allergy Rash/Hives Verified 11/24/19 16:01 adhesive AdvReac red skin, Verified 11/24/19 16:01 blisters sulfamethoxazole AdvReac Abdominal Verified 11/24/19 16:01 [From Bactrim] Pain trimethoprim [From Bactrim] AdvReac Abdominal Verified 11/24/19 16:01 Pain Physical Examination Right knee: Incision is well healed, there is no open lesions, areas of erythema or significant soft tissue swelling There is minimal tenderness along the medial aspect of the knee No obvious effusion is present over the knee She is able to straight leg raise no difficulty, she can bend easily past 90 with no discomfort Calf is soft, no tenderness with palpation Plantar flexion, dorsiflexion, EHL, FHL are intact, dorsalis pedis pulses 2+ Logroll maneuver of the extremity reproduces no groin pain, she is nontender along the proximal femur and over the greater trochanter Right shoulder: Active motion, she can forward elevate and also abduct past 150 no difficulty. Minimal tenderness over the anterior glenohumeral joint line, no tenderness to the clavicle or ac joint. Strength testing is intact with regards to forward elevation, abduction and external rotation, no significant deficits appreciated. Sensory exam light touch is intact, radial pulses 2+ Results - Labs Labs: Abnormal Lab Results - Last 24 Hours (Table) 11/24/19 11/24/19 11/24/19 Range/Units 13:30 13:30 20:43 RBC (3.80-5.40) m/uL Hgb (11.4-16.0) gm/dL Hct (34.0-46.0) % RDW (11.5-15.5) % Lymphocytes # (1.0-4.8) k/uL Chloride (98-107) mmol/L BUN (7-17) mg/dL Glucose (74-99) mg/dL POC Glucose (mg/dL) 120 H (75-99) mg/dL Hemoglobin A1c 6.8 H (4.0-6.0) % Plasma Lactic Acid Luis 2.5 H* (0.7-2.0) mmol/L 11/24/19 11/25/19 11/25/19 Range/Units 22:19 07:17 08:17 RBC 3.40 L (3.80-5.40) m/uL Hgb 9.6 L D (11.4-16.0) gm/dL Hct 30.3 L (34.0-46.0) % RDW 18.5 H (11.5-15.5) % Lymphocytes # 0.4 L (1.0-4.8) k/uL Chloride (98-107) mmol/L BUN (7-17) mg/dL Glucose (74-99) mg/dL POC Glucose (mg/dL) 123 H 116 H (75-99) mg/dL Hemoglobin A1c (4.0-6.0) % Plasma Lactic Acid Luis (0.7-2.0) mmol/L 11/25/19 11/25/19 Range/Units 08:17 11:21 RBC (3.80-5.40) m/uL Hgb (11.4-16.0) gm/dL Hct (34.0-46.0) % RDW (11.5-15.5) % Lymphocytes # (1.0-4.8) k/uL Chloride 109 H (98-107) mmol/L BUN 20 H (7-17) mg/dL Glucose 111 H (74-99) mg/dL POC Glucose (mg/dL) 106 H (75-99) mg/dL Hemoglobin A1c (4.0-6.0) % Plasma Lactic Acid Luis (0.7-2.0) mmol/L H & H 11/24/19 11/25/19 Range/Units 13:30 08:17 Hgb 12.0 9.6 L D (11.4-16.0) gm/dL Hct 35.5 30.3 L (34.0-46.0) % Result Diagrams: 11/25/19 08:17 11/25/19 08:17 - Diagnostic results Shoulder x-ray: report reviewed, image reviewed Hip x-ray: report reviewed, image reviewed Knee x-ray: report reviewed, image reviewed Assessment and Plan Assessment: Right knee pain Stable right total knee arthroplasty Small avulsion fracture right knee medial femoral condyle Right hip contusion, stable hardware Right shoulder contusion Right shoulder osteoarthritis Plan: I was able to discuss the case, including with physical exam findings and imaging studies with my attending physician Dr. Thomas, no surgical intervention needed at this time Weight-bear as tolerated with walker Ice and elevate the right knee and shoulder as needed Other medical specialty recommendations On a orthopedic standpoint, she is stable for discharge and follow-up in the outpatient setting Time with Patient: Less than 30
[2019-11-25 16:55] LABS: Glucose,Whole Blood 124 mg/dL (75-99)
[2019-11-25 20:00] LABS: Glucose,Whole Blood 154 mg/dL (75-99)
[2019-11-25] MEDS: ATORVASTATIN 20 MG TAB PO SCH (20:23)
[2019-11-25] MEDS: MONTELUKAST 10 MG TAB PO SCH (20:23)
[2019-11-25] MEDS: PANTOPRAZOLE 40 MG/10 ML VIAL IVP SCH (20:24)
[2019-11-25] MEDS: ZOLPIDEM 5 MG TAB PO SCH (22:32)
[2019-11-26] MEDS: LEVOTHYROXINE 25 MCG TAB PO SCH ×2 (05:31→08:45)
[2019-11-26 06:12] LABS: Anisocytosis Slight; HGB 9.7 gm/dL (11.4-16.0); Hypochromasia Slight; MCH 27.8 pg (25.0-35.0); MCHC 31.2 g/dL (31.0-37.0); MCV 89.1 fL (80.0-100.0); Mean Platelet Volume 7.2; Platelet Count 173 k/uL (150-450); RBC 3.48 m/uL (3.80-5.40); RDW 18.3 % (11.5-15.5); WBC 5.4 k/uL (3.8-10.6)
[2019-11-26 06:26] LABS: Potassium 4.3 mmol/L (3.5-5.1)
[2019-11-26] MEDS: SODIUM CHLORIDE 0.9% 1,000 ML IV SCH (06:56)
[2019-11-26 07:10] LABS: Glucose,Whole Blood 123 mg/dL (75-99)
[2019-11-26] MEDS: INSULIN ASPART (NovoLOG) 100 UNIT/ML VIAL SQ SCH ×4 (07:19→20:43)
[2019-11-26] MEDS ORDERED: PROPOFOL 10 MG/ML 20 ML VIAL IV ONE (07:44)
[2019-11-26] MEDS ORDERED: IV FLUID CONTINUATION 1,000 ML IV ONE ×2 (07:46)
--- NOTE | 2019-11-26 08:03 | P.PCN ---
Date of Procedure: 11/26/19 Procedure(s) Performed: NBRIEF HISTORY: Patient is a 79-year-old, pleasant, white female scheduled for an upper endoscopy as a part of evaluation of acute GI bleed. She had multiple episodes of black tarry stool followed by bright red blood per rectum and were 2 days' duration. His been on Plavix and has been on. She is scheduled for an upper endoscopy to evaluate for upper GI source of bleeding. PROCEDURE PERFORMED: Esophagogastroduodenoscopy. PREOPERATIVE DIAGNOSIS: Acute GI bleed. IV sedation per anesthesia. PROCEDURE: After informed consent was obtained, the patient was brought into the endoscopy unit. IV sedation was administered by Anesthesia under continuous monitoring. Initially the Olympus GIF-140 video endoscope was inserted into the mouth. Esophagus intubated without any difficulty. It was gradually advanced into the stomach and duodenum and carefully examined. The bulb and the second part of the duodenum appeared normal. The scope at this time was withdrawn to the stomach, adequately insufflated with air, and upon careful examination, mucosa of the antrum, had minimal gastritis. No ulcerations noted. The body, cardia and the fundus appeared normal. The scope was then withdrawn into the esophagus. The GE junction was located at 39 cm from the incisors. Small sli ding Hiatal hernia noted. The esophagus appeared normal. There were no erosions or ulcerations seen and the patient tolerated the procedure well. IMPRESSION: 1. Minimal antral gastritis. 2. Small hiatal hernia. RECOMMENDATIONS: The findings of this examination were discussed with the patient . Since no obvious source of bleeding identified she will be scheduled for colonoscopy tomorrow.. She'll be remain on a clear liquid diet today. Monitor CBC on a daily basis
[2019-11-26] MEDS: metroNIDAZOLE-NS PMX 500 MG in SALINE 1 100ML.BAG IVPB SCH ×3 (08:39→23:38)
[2019-11-26] MEDS: PANTOPRAZOLE 40 MG/10 ML VIAL IVP SCH ×2 (08:42→20:36)
[2019-11-26] MEDS: ALLOPURINOL 100 MG TAB PO SCH (08:44)
[2019-11-26] MEDS: FLUoxetine HCL 20 MG CAP PO SCH (08:44)
[2019-11-26] MEDS: ATENOLOL 50 MG TAB PO SCH ×2 (08:45→20:36)
[2019-11-26] MEDS: CALCIUM CARB-VIT D 500MG-200UN 1 EACH TAB PO SCH (08:45)
[2019-11-26] MEDS: amLODIPine 5 MG TAB PO SCH (08:45)
[2019-11-26] MEDS: HYDROcodone/APAP 10-325MG 1 EACH TAB PO PRN (08:51)
--- NOTE | 2019-11-26 09:15 | P.PN ---
Subjective Progress Note Date: 11/26/19 79-year-old female one of Dr. Rocha patient with multiple medical problem who is known to have history of type 2 diabetes, risk cancer, hypertension, hyperlipidemia and osteoarthritis who has been treated for lower back pain post multiple lower back surgery patient had multiple epidural inj ection with pain management at [facility] and has been doing injection of Dr. Rocha office apparently last few days. She has been taking more anti- inflammatory agent. Patient presented to demurs department at [facility] today with multiple complain she has initially complain of black stool for the last 3 days and finally started having bright red blood per rectum consistent with left lower quadrant pain and discomfort with mild nausea with no vomiting. Also patient early today tripped and fell on the right side and attempt to catch herself without any syncopal episode but developed to have right knee injury for a prostatic knee was done in July by Dr. Thomas. Her x-ray provided daysi wed partial fracture. Patient Hemoccult was positive hemoglobin still at 12 mg lactic acid was mildly elevated. Patient was started on IV resuscitation type and cross was done patient will be admitted to the hospital for the above problem. 11/24: Patient seen on the med-surg floor. The patient has not had any bowel movements overnight. She continues to have some abdominal tenderness. No nausea or vomiting. Her last colonoscopy was with Dr. Horne 6-7 years ago. She has followed with Dr. Maldonado in the office several years ago and was referred for Botox injection. Patient has been seen by Dr. Cho with plan for EGD tomorrow. Patient has been afebrile, heart rate 71, blood pressure 110/67, pulse ox 97% on room air. Repeat blood work reveals WBC 7.1, hemoglobin 9.6, platelet count 161. BUN 20 creatinine 0.67. Blood sugars running 111 223. 11/25: Anjali underwent EGD today with Dr. Maldonado that found minimal antral gastritis and small hiatal hernia. No source of bleeding. Patient is on a clear liquid diet and scheduled for colonoscopy for tomorrow. Repeat hemoglobin 9.7. Blood sugars running between 116 and 154. She has been afebrile, heart rate 71, blood pressure 119/71, pulse ox 97% on room air. Patient has not had any stools. No BRBR. More pain today on the left side. Probable discharge home tomorrow following procedure. Objective - Vital Signs Vital signs: Vital Signs Temp 97.7 F 11/26/19 08:16 Pulse 71 11/26/19 08:16 Resp 16 11/26/19 08:16 BP 119/71 11/26/19 08:16 Pulse Ox 97 11/26/19 08:16 Intake & Output 11/25/19 11/26/19 11/26/19 18:59 06:59 18:59 Intake Total 1830 150 100 Balance 1830 150 100 Intake: IV 100 Intake, IV Titration 1050 150 Amount Sodium Chloride 0.9% 1, 950 150 000 ml @ 50 mls/hr IV . Q20H SANTOS Rx#:[id number] metroNIDAZOLE-NS PMX 500 100 mg In Saline 1 100ml.bag @ 100 mls/hr IVPB Q8HR SANTOS Rx#:[id number] Oral 780 Other: Voiding Method Toilet Toilet # Voids 3 1 - Exam Review of Systems CONSTITUTIONAL: Well-developed no acute respiratory distress. Denies fever, denies chills. EYES: No icterus sclerae, no conjunctivitis. EARS, NOSE, MOUTH, THROAT, and FACE: No sore throat, lymphadenopathy, carotid bruits or deformity. RESPIRATORY: No SOB cough or wheezes. CARDIOVASCULAR: No CP, Palpitation, PND, Orthopnea, or angina. GASTROINTESTINAL: Reports abdominal pain. colitis with diverticulitis tarry stool and bright red blood per rectum. GENITOURINARY: Negative for Hematuria or UTI, no kidney stones. INTEGUMENT/BREAST: Negative for any muscular injury with mild osteoarthritis.. HEMATOLOGIC/LYMPHATIC: Negative for bleed or purpura. MUSCULOSKELTAL: Right knee injury with significant pain bruise and decrease ability to put pressure on it. NEURLOGICAL: No LOC, Sz or syncope, blurred vision dizziness or abnormality.. BEHAVIORAL/PSYCH: Negative. ENDOCRINE: Negative. Physical examination General Appearance: Alert, cooperative, no distress, appears stated age. Neck HEENT: Supple, no lymphadenopathy, no thyroid enlargement, no carotid bruits. Lungs: Clear to auscultation without crackles or wheezes no rhonchi, no deformity. Chest Wall: Decrease expansion with deep inspiration no tenderness and no deformity was found on exam, no costochondral pain or discomfort. Heart: Regular rate and rhythm, S1, S2 positive S3 no JVD. Back: Multiple scar tissue in the lumbar area with significant discomfort and tenderness in the upper and lower lumbar area bilaterally. Abdomen: Soft positive bowel sounds discomfort left mid/lower quadrant area and right lower abdominal region. No rebound or rigidity not able to feel any organomegaly. Extremities: Trace edema positive scar tissue over both knees from previous surgery significant pain and discomfort and mild swelling and bruise on the right knee compared to the left side. Pulses: 2+ and symmetric. Skin: Skin color, texture, tugor normal, no rashes or lesions. Neurologic: Alert oriented x3 cranial nerves II through XII intact, no motor deficit, no abnormal balance or gait. - Labs CBC & Chem 7: 11/26/19 05:23 11/26/19 05: Labs: Abnormal Lab Results - Last 24 Hours (Table) 11/24/19 11/25/19 11/25/19 Range/Units 13:30 08:17 08:17 RBC 3.40 L (3.80-5.40) m/uL Hgb 9.6 L D (11.4-16.0) gm/dL Hct 30.3 L (34.0-46.0) % RDW 18.5 H (11.5-15.5) % Lymphocytes # 0.4 L (1.0-4.8) k/uL Chloride 109 H (98-107) mmol/L BUN 20 H (7-17) mg/dL Glucose 111 H (74-99) mg/dL POC Glucose (mg/dL) (75-99) mg/dL Hemoglobin A1c 6.8 H (4.0-6.0) % 11/25/19 11/25/19 11/25/19 Range/Units 11:21 16:54 19:58 RBC (3.80-5.40) m/uL Hgb (11.4-16.0) gm/dL Hct (34.0-46.0) % RDW (11.5-15.5) % Lymphocytes # (1.0-4.8) k/uL Chloride (98-107) mmol/L BUN (7-17) mg/dL Glucose (74-99) mg/dL POC Glucose (mg/dL) 106 H 124 H 154 H (75-99) mg/dL Hemoglobin A1c (4.0-6.0) % 11/26/19 11/26/19 11/26/19 Range/Units 05:23 05:23 07:09 RBC 3.48 L (3.80-5.40) m/uL Hgb 9.7 L (11.4-16.0) gm/dL Hct 31.0 L (34.0-46.0) % RDW 18.3 H (11.5-15.5) % Lymphocytes # (1.0-4.8) k/uL Chloride 111 H (98-107) mmol/L BUN (7-17) mg/dL Glucose 116 H (74-99) mg/dL POC Glucose (mg/dL) 123 H (75-99) mg/dL Hemoglobin A1c (4.0-6.0) % Assessment and Plan Plan: 1 acute gastrointestinal bleed: With significant tarry stool and bright red blood per rectum this is could be combination of upper and lower GI bleed or the severity of the upper GI bleed can be the cause of bright red blood per rectum. Repeat CBC in the morning. S/p EGD and plan for colonoscopy tomorrow with Dr. Maldonado. Continue Protonix twice daily. 2 acute blood loss anemia: Hemoglobin still stable at this point no need for blood transfusion yet. 3 colitis: With significant change in the interim because of the colon area consistent with acute colitis addition to diverticulitis, we will start Flagyl at this point continue to watch for any further bright red blood per rectum and GI consult with possible need for colonoscopy. 4 fall with right knee fracture, small osseous fragment medial to the distal m edial femoral condyle may be postsurgical of post traumatic related to small chip or avulsion fracture, that knee had surgery done in July with the fall most likely the cause of fracture will consult orthopedic at this point. 5 diabetes: Continue patient on metformin along with NovoLog per sliding scales coverage. 6 chronic lower back pain with multiple surgery and multiple injection so far w hich probably aggravated the bleed is the overuse of anti-inflammatory agent beside been on Plavix. Patient can benefit from smaller dose of hydrocodone along with muscle relaxer with try to avoid steroids at this point as well. 7 hyperlipidemia: Resume simvastatin 40 mg daily. 8 Hypertension: Remain on amlodipine 5 mg a day and atenolol 50 mg daily. 9 history of TIA patient has been on Plavix which will be held for now we'll wait till left leg GI bleed stopped completely. 10 gout: Continue Zyloprim at 100 mg daily. 11 restless leg syndrome: Patient has been on Requip XL 2 mg twice a day. 12 lactic acidosis: Most likely from the hypoperfusion related to the GI bleed repeat lactic acid if it's abnormal continue fluid resuscitation. 13 DVT prophylaxis: Patient will have knee-high MYRA hose. 14 GI prophylaxis: Remain on pantoprazole IV. CODE STATUS: Full code. Discharge plan: To be determined Impression and plan of care have been directed as dictated by the signing physician. Karen Quintero nurse practitioner acting as scribe for signing physician.
[2019-11-26] MEDS: SODIUM FERRIC GLUCONAT-SUCROSE 125 MG in SODIUM CHLORIDE 0.9% 100 ML IVPB SCH (09:58)
[2019-11-26 11:18] LABS: Glucose,Whole Blood 185 mg/dL (75-99)
[2019-11-26] MEDS ORDERED: PEG 3350-NA SULF,BICARB,CL/KCL 4,000 ML BOTTLE PO ONE (17:00)
[2019-11-26 17:25] LABS: Glucose,Whole Blood 116 mg/dL (75-99)
[2019-11-26] MEDS: MORPHINE SULFATE 2 MG/ML SYRINGE IVP PRN (18:05)
[2019-11-26 19:54] LABS: Glucose,Whole Blood 133 mg/dL (75-99)
[2019-11-26] MEDS: ATORVASTATIN 20 MG TAB PO SCH (20:36)
[2019-11-26] MEDS: MONTELUKAST 10 MG TAB PO SCH (20:36)
[2019-11-26] MEDS: ZOLPIDEM 5 MG TAB PO SCH (23:39)
[2019-11-26] MEDS: HYDROcodone/APAP 5-325MG 1 EACH TAB PO PRN (23:42)
[2019-11-27] MEDS: SODIUM CHLORIDE 0.9% 1,000 ML IV SCH (01:00)
[2019-11-27 06:00] VITALS: RESP 17
[2019-11-27] MEDS: MORPHINE SULFATE 2 MG/ML SYRINGE IVP PRN (06:06)
[2019-11-27 06:55] LABS: Anisocytosis Slight; HCT 30.1 % (34.0-46.0); HGB 9.6 gm/dL (11.4-16.0); MCH 28.2 pg (25.0-35.0); MCHC 31.9 g/dL (31.0-37.0); MCV 88.5 fL (80.0-100.0); Platelet Count 158 k/uL (150-450); RDW 18.7 % (11.5-15.5); WBC 5.1 k/uL (3.8-10.6)
[2019-11-27 07:18] LABS: African American GFR (CKD) >90 (>60 ml/min/1.73 sqM); Anion Gap 6 mmol/L; Blood Urea Nitrogen 11 mg/dL (7-17); Calcium 8.8 mg/dL (8.4-10.2); Carbon Dioxide 24 mmol/L (22-30); Chloride 110 mmol/L (98-107); Glucose 105 mg/dL (74-99); Non-African American GFR(CKD) 85 (>60 ml/min/1.73 sqM); Sodium 140 mmol/L (137-145)
[2019-11-27 07:18] LABS: Glucose,Whole Blood 99 mg/dL (75-99)
[2019-11-27] MEDS ORDERED: metFORMIN 500 MG TAB PO SCH (09:00)
[2019-11-27] MEDS: amLODIPine 5 MG TAB PO SCH (09:16)
[2019-11-27] MEDS: FLUoxetine HCL 20 MG CAP PO SCH (09:16)
[2019-11-27] MEDS: INSULIN ASPART (NovoLOG) 100 UNIT/ML VIAL SQ SCH ×3 (09:18→18:05)
[2019-11-27] MEDS: PANTOPRAZOLE 40 MG/10 ML VIAL IVP SCH (09:19)
[2019-11-27] MEDS: ATENOLOL 50 MG TAB PO SCH (09:20)
[2019-11-27] MEDS: metroNIDAZOLE-NS PMX 500 MG in SALINE 1 100ML.BAG IVPB SCH ×2 (09:25→15:40)
[2019-11-27] MEDS: HYDROcodone/APAP 5-325MG 1 EACH TAB PO PRN ×2 (09:27→15:23)
[2019-11-27 11:03] LABS: % Iron Saturation 23.13 (12.00-45.00)
[2019-11-27 11:11] LABS: Ferritin 74.5 ng/mL (10.0-291.0)
[2019-11-27] MEDS: SODIUM FERRIC GLUCONAT-SUCROSE 125 MG in SODIUM CHLORIDE 0.9% 100 ML IVPB SCH (11:13)
--- NOTE | 2019-11-27 11:28 | P.DS ---
Providers Date of admission: 11/25/19 08:44 Expected date of discharge: 11/27/19 Attending physician: Veronica Avelar Consults: 11/24/19 16:37 Consult Physician Routine Consulting Provider: Los Thomas Consult Reason/Comments: possible right femur condylar fracture/fall Do you want consulting provider notified?: Yes, Notify in am 11/24/19 18:24 Consult Physician Routine Consulting Provider: Faith Maldonado Consult Reason/Comments: gi bleed tarry stool Do you want consulting provider notified?: Yes Primary care physician: Alvarez [employer] Course: 79-year-old female one of Dr. Rocha patient with multiple medical problem who is known to have history of type 2 diabetes, risk cancer, hypertension, hyperlipidemia and osteoarthritis who has been treated for lower back pain post multiple lower back surgery patient had multiple epidural injection with pain management at [facility] and has been doing injection of Dr. Rocha office apparently last few days. She has been taking more anti- inflammatory agent. Patient presented to demurs department at [facility] today with multiple complain she has initially complain of black stool for the last 3 days and finally started having bright red blood per rectum consistent with left lower quadrant pain and discomfort with mild nausea with no vomiting. Also patient early today tripped and fell on the right side and attempt to catch herself without any syncopal episode but developed to have right knee injury for a prostatic knee was done in July by Dr. Thomas. Her x-ray provided showed partial fracture. Patient Hemoccult was positive hemoglobin still at 12 mg lactic acid was mildly elevated. Patient was started on IV resuscitation type and cross was done patient will be admitted to the hospital for the above problem. 11/24: Patient seen on the med-surg floor. The patient has not had any bowel movements overnight. She continues to have some abdominal tenderness. No nausea or vomiting. Her last colonoscopy was with Dr. Horne 6-7 years ago. She has followed with Dr. Maldonado in the office several years ago and was referred for Botox injection. Patient has been seen by Dr. Cho with plan for EGD tomorrow. Patient has been afebrile, heart rate 71, blood pressure 110/67, pulse ox 97% on room air. Repeat blood work reveals WBC 7.1, hemoglobin 9.6, platelet count 161. BUN 20 creatinine 0.67. Blood sugars running 111 223. 11/25: Anjali underwent EGD today with Dr. Maldonado that found minimal antral gastritis and small hiatal hernia. No source of bleeding. Patient is on a clear liquid diet and scheduled for colonoscopy for tomorrow. Repeat hemoglobin 9.7. Blood sugars running between 116 and 154. She has been afebrile, heart rate 71, blood pressure 119/71, pulse ox 97% on room air. Patient has not had any stools. No BRBR. More pain today on the left side. Probable discharge home tomorrow following procedure. 11/26: Patient verbalizes that her recently and she is tearful and depressed this morning. We will plan to increase Prozac for home. Repeat hemoglobin 9.6. Patient underwent colonoscopy with Dr. Jones that revealed area of ulceration, nonbleeding, in the distal transverse colon which was biopsied. Mild left colonic diverticulosis. Low-grade internal hemorrhoids. Patient was cleared for diet advanced to a low fiber and cleared for discharge. We are holding Plavix for 1 week and patient may resume at home. Patient will be discharged home today in stable condition. Discharge diagnoses: 1 acute gastrointestinal bleed S/p EGD and colonoscopy 2 acute blood loss anemia 3 colitis 4 fall with right knee fracture, small osseous fragment medial to the distal medial femoral condyle may be postsurgical of post traumatic related to small chip or avulsion fracture 5 diabetes is type II 6 chronic lower back pain with multiple surgery and multiple injectio 7 hyperlipidemia 8 Hypertension 9 history of TIA 10 gout, chronic 11 restless leg syndrome 12 lactic acidosis 13 Covid 19 infection not present Discharge plan: home Impression and plan of care have been directed as dictated by the signing ph ysician. aKren Quintero nurse practitioner acting as scribe for signing phys Patient Condition at Discharge: Good Plan - Discharge Summary Discharge Rx Participant: No New Discharge Prescriptions: New metroNIDAZOLE [Flagyl] 500 mg PO Q8HR #21 tab Ferrous Sulfate [Iron (65 MG Elemental)] 325 mg PO DAILY #30 tab Omeprazole [PriLOSEC] 40 mg PO BID #60 cap Continue Allopurinol [Zyloprim] 100 mg PO DAILY amLODIPine BESYLATE [Norvasc] 5 mg PO DAILY Montelukast [Singulair] 10 mg PO HS Atenolol [Tenormin] 50 mg PO BID Calcium Carb-Vit D 500Mg-200Un [Oscal 500+D] 1 tab PO DAILY Zolpidem [Ambien] 5 mg PO HS Levothyroxine Sodium [Synthroid] 12.5 mcg PO DAILY Clopidogrel Bisulfate [Clopidogrel] 75 mg PO DAILY metFORMIN HCL [Glucophage] 500 mg PO DAILY rOPINIRole HCL [Requip Xl] 2 mg PO BID Simvastatin [Zocor] 40 mg PO HS Potassium Chloride 10 meq PO DAILY HYDROcodone/APAP 10-325MG [[place] 10-325] 0.5 tab PO TID PRN PRN Reason: Pain Calcium Carb/Vitamin D3/Vit K1 [Citracal Soft Chew] 1 tab PO DAILY Changed FLUoxetine HCL [PROzac] 30 mg PO DAILY #45 cap Discontinued Diclofenac Sodium 75 mg PO BID Famotidine [Pepcid] 20 mg PO DAILY Discharge Medication List Allopurinol [Zyloprim] 100 mg PO DAILY 01/05/14 [History] Atenolol [Tenormin] 50 mg PO BID 01/05/14 [History] Calcium Carb-Vit D 500Mg-200Un [Oscal 500+D] 1 tab PO DAILY 01/05/14 [History] Montelukast [Singulair] 10 mg PO HS 01/05/14 [History] amLODIPine BESYLATE [Norvasc] 5 mg PO DAILY 01/05/14 [History] Levothyroxine Sodium [Synthroid] 12.5 mcg PO DAILY 03/16/14 [History] Zolpidem [Ambien] 5 mg PO HS 03/16/14 [History] Clopidogrel Bisulfate [Clopidogrel] 75 mg PO DAILY 10/29/14 [History] metFORMIN HCL [Glucophage] 500 mg PO DAILY 11/12/17 [History] Potassium Chloride 10 meq PO DAILY 07/21/19 [History] Simvastatin [Zocor] 40 mg PO HS 07/21/19 [History] rOPINIRole HCL [Requip Xl] 2 mg PO BID 07/21/19 [History] Calcium Carb/Vitamin D3/Vit K1 [Citracal Soft Chew] 1 tab PO DAILY 11/24/19 [History] HYDROcodone/APAP 10-325MG [[place] 10-325] 0.5 tab PO TID PRN 11/24/19 [History] FLUoxetine HCL [PROzac] 30 mg PO DAILY #45 cap 11/27/19 [Rx] Ferrous Sulfate [Iron (65 MG Elemental)] 325 mg PO DAILY #30 tab 11/27/19 [Rx] Omeprazole [PriLOSEC] 40 mg PO BID #60 cap 11/27/19 [Rx] metroNIDAZOLE [Flagyl] 500 mg PO Q8HR #21 tab 11/27/19 [Rx] Follow up Appointment(s)/Referral(s): Faith Maldonado MD [STAFF PHYSICIAN] - 12/12/19 1:15 pm Alvarez Rocha DO [Primary Care Provider] - 1 Week (The office was not opened at time of discharge - please call and make your follow up appointment with Dr. Rocha) Patient Instructions/Handouts: Iron Supplements (By mouth), Fluoxetine (By mouth), Metronidazole (By mouth), Omeprazole (By mouth), Gastrointestinal Bleeding (DC), Diverticulosis (DC), Fall Prevention for Older Adults (DC), Diverticulosis Diet (GEN), Colonoscopy (DC) Discharge Disposition: HOME SELF-CARE
[2019-11-27 12:01] LABS: Glucose,Whole Blood 112 mg/dL (75-99)
--- NOTE | 2019-11-27 14:13 | CDI ---
Documentation Clarification Form Date: 11/27/2019 02:07:25 PM From: Sharmin Puente CCS, CCDS Admit Date: 11/25/2019 08:44:00 AM Patient Name: Pretty Youngblood Visit Number: [id number] Discharge Date: ATTENTION: The Clinical Documentation Specialists (CDI) and [facility] Coding Staff appreciate your assistance in clarifying documentation. Please respond to the clarification below the line at the bottom and electronically sign. The CDI & [facility] Coding staff will review the response and follow-up if needed. Please note: Queries are made part of the Legal Health Record. If you have any questions, please contact the author of this message via ITS. Dr. Carlos Enrique Farooq: The presented to the ED on 11/23 with GI bleed & right knee femoral condyle fracture after a fall at home. Patient had COVID-19 test done on admission with negative results. The COVID results are not documented in the record. Patient history/risk factors: Lymphoma status post chemo & radiation, DM II, Hypertension, Hyperlipidemia, OA, GERD & Gout. Clinical Indicators: Presented as above, screened for COVID-19, asymptomatic with negative results. LAB: 11/23 Serology: COVID-19: Negative. Treatment for GI bleed & pain: IV PPI, IV fluid rate 120, IV Morphine Sulfate, IV Flagyl. EGD & pending colonoscopy. In order to capture the severity of condition, please clarify if the above treatment/clinical indicators signify: COVID-19 Suspected COVID-19 ruled out Other, please specify Unable to determine (Last Form Revision: September 2019) MTDD
[2019-11-27] MEDS ORDERED: PROPOFOL 10 MG/ML 20 ML VIAL IV ONE (14:17)
[2019-11-27] MEDS ORDERED: IV FLUID CONTINUATION 1,000 ML IV ONE (14:53)
--- NOTE | 2019-11-27 14:58 | P.PCN ---
Date of Procedure: 11/27/19 Description of Procedure: BRIEF HISTORY: 79-year-old, pleasant, white female scheduled for an upper endoscopy as a part of evaluation of acute GI bleed. She had multiple episodes of black tarry stool followed by bright red blood per rectum and were 2 days' duration. His been on Plavix and has been on. She is scheduled for an upper endoscopy to evaluate for upper GI source of bleeding. EGD yesterday showed minimal antral gastritis and a small hiatal hernia. She did her prep yesterday and does report some dark stool with it. PROCEDURE PERFORMED: Colonoscopy with biopsy. PREOPERATIVE DIAGNOSIS: GI bleed, melena, anemia. ESTIMATED BLOOD LOSS: Minimal. IV sedation per Anesthesia. PROCEDURE: After informed consent was obtained, the patient, was brought into the endoscopy unit. IV sedation was administered by Anesthesia under continuous monitoring. Digital rectal examination was normal. Initially the Olympus CF-190 flexible video colonoscope was then inserted in the rectum, gradually advanced into the cecum without any difficulty. Careful examination was performed as the scope was gradually being withdrawn. Ileocecal valve and the appendiceal orifice were visualized and appeared normal. Prep was excellent. Mucosa of the cecum, ascending colon, transverse colon, descending colon, sigmoid colon, and rectum appeared normal. Multiple small mouth diverticula noted in the left colon. There was an area in the approximate area of the distal transverse colon and proximal sigmoid polyp nonbleeding clean-based ulceration with suspicion for ischemic ulcer which was biopsied. Retroflexion was performed in the rectum and no lesions were seen, low-grade internal hemorrhoids seen. The patient tolerated the procedure well. IMPRESSION: Area of ulceration, nonbleeding, in the distal transverse colon which was biopsied. Mild left colonic diverticulosis. Low-grade internal hemorrhoids. RECOMMENDATIONS: Findings of this examination were discussed with the patient. Okay to resume diet, would recommend low fiber. Continue to hold Plavix for an additional 48 hours. Await pathology from biopsies. Otherwise okay for discharge home if otherwise medically stable.
[2019-11-27 15:18] VITALS: TEMP 97.9
[2019-11-27] MEDS: ALLOPURINOL 100 MG TAB PO SCH (15:22)
[2019-11-27] MEDS: CALCIUM CARB-VIT D 500MG-200UN 1 EACH TAB PO SCH (15:23)
[2019-11-27 16:08] VITALS: BP 99/65; PULSE 82
[2019-11-27 17:48] LABS: Glucose,Whole Blood 109 mg/dL (75-99)
== END 2019-11-27 18:55 | disposition home or self-care (01) | DRG 392 ==
LOC: EC 13:11 → 5NMEDONC 16:41 → OBSVTOIN 11-25 08:44
PROVIDERS: ADMIT Family Medicine; ATTEND Family Medicine
PROC: 0DJ08ZZ Inspection of Upper Intestinal Tract, Via Natural or Artificial Opening Endoscopic (ICD-10-PCS; 2019-11-26)
PROC: 0DBL8ZX Excision of Transverse Colon, Via Natural or Artificial Opening Endoscopic, Diagnostic (ICD-10-PCS; principal; 2019-11-27 07:50)
DX: K52.9 Noninfective gastroenteritis and colitis, unspecified (principal); S72.431A Displaced fracture of medial condyle of right femur, initial encounter for closed fracture; K63.3 Ulcer of intestine; D62 Acute posthemorrhagic anemia; E87.2 Acidosis; F40.240 Claustrophobia; K57.30 Diverticulosis of large intestine without perforation or abscess without bleeding; K44.9 Diaphragmatic hernia without obstruction or gangrene; K63.5 Polyp of colon; M19.011 Primary osteoarthritis, right shoulder; M1A.9XX0 Chronic gout, unspecified, without tophus (tophi); S40.011A Contusion of right shoulder, initial encounter; S70.01XA Contusion of right hip, initial encounter; W01.0XXA Fall on same level from slipping, tripping and stumbling without subsequent striking against object, initial encounter; E11.9 Type 2 diabetes mellitus without complications; E78.5 Hyperlipidemia, unspecified; F32.9 Major depressive disorder, single episode, unspecified; F41.9 Anxiety disorder, unspecified; K64.8 Other hemorrhoids; G25.81 Restless legs syndrome; G89.29 Other chronic pain; I10 Essential (primary) hypertension; Z79.02 Long term (current) use of antithrombotics/antiplatelets; Z11.59 Encounter for screening for other viral diseases; Z79.84 Long term (current) use of oral hypoglycemic drugs; Z79.890 Hormone replacement therapy; Z79.899 Other long term (current) drug therapy; Z80.1 Family history of malignant neoplasm of trachea, bronchus and lung; Z80.3 Family history of malignant neoplasm of breast; Z82.3 Family history of stroke; Z82.49 Family history of ischemic heart disease and other diseases of the circulatory system; Z85.72 Personal history of non-Hodgkin lymphomas; Z86.73 Personal history of transient ischemic attack (TIA), and cerebral infarction without residual deficits; Z90.710 Acquired absence of both cervix and uterus; Z92.21 Personal history of antineoplastic chemotherapy; Z92.3 Personal history of irradiation; Z96.653 Presence of artificial knee joint, bilateral; Z63.4 Disappearance and death of family member; Z98.1 Arthrodesis status; Z88.1 Allergy status to other antibiotic agents; Z88.5 Allergy status to narcotic agent; Z88.2 Allergy status to sulfonamides; K21.9 Gastro-esophageal reflux disease without esophagitis; M19.90 Unspecified osteoarthritis, unspecified site; M54.5 Low back pain
CPT/HCPCS: 36415; 43235; 45380; 72100; 73502; 74177; 80048; 80053; 82272; 82728; 83036; 83540; 83550; 83605; 84484; 85025; 85027; 85730; 87635; 88305; 96374; 96375; 99285

== ENCOUNTER → 2019-12-15 | Outpatient (CLI) | payer MEDICARE, BC | END | disposition home or self-care (01) | LOC: LABWHC1 12:10 | PROVIDERS: ATTEND Anesthesiology | DX: Z11.59 Encounter for screening for other viral diseases (principal) | CPT/HCPCS: 87635 ==

== ENCOUNTER → 2019-12-19 | Day surgery (SDC) | payer MEDICARE, BC ==
[2019-12-14 11:14] VITALS: BMI 24.6
[~2019-12-19] MED LIST changes: -ACETAMINOPHEN TAB 500 MG TAB PO ONE; +BUPIVACAINE (PF) 0.5% 30 ML VIAL ONE; -CLINDAMYCIN 900 MG in DEXTROSE 5% IN WATER 50 ML IVPB ONE; +HYDROcodone/APAP 10-325MG 1 EACH TAB PO ONE; +IOPAMIDOL M200 10 ML VIAL ONE; +LACTATED RINGERS 1,000 ML IV SCH; +LIDOCAINE 1% (10MG/ML) FOR IV START INTRADERMA ONE; -LIDOCAINE 1% 20 ML VIAL (10MG/ML) FOR IV START INTRADERMA PRN; -MELOXICAM 7.5 MG TAB PO ONE; -MIDAZOLAM 2 MG/2 ML VIAL IV PRN; +MIDAZOLAM 2 MG/2 ML VIAL ONE; +MORPHINE SULFATE 5 MG/ML SYRINGE IVP ONE; -TRANEXAMIC ACID 1,000 MG in SODIUM CHLORIDE 0.9% 100 ML IVPB ONE; +TRIAMCINOLONE ACETONIDE 40 MG/ML 1 ML VIAL ONE; -fentaNYL (PF) 50 MCG/ML 2 ML AMP IV PRN; +fentaNYL (PF) 50 MCG/ML 2 ML AMP ONE; +methylPREDNISolone ACETATE 40 MG/ML 1 ML VIAL ONE
[2019-12-19 08:12] VITALS: TEMP 98.1
[2019-12-19 08:15] LABS: Glucose,Whole Blood 157 mg/dL (75-99)
--- NOTE | 2019-12-19 08:51 | P.PCN ---
Date of Procedure: 12/19/19 Procedure(s) Performed: Procedure= caudal epidural steroid injection with lysis of epidural adhesions, bilateral trochanteric bursa steroid injection under fluoroscopy guidance. Preoperative diagnosis=1-failed back surgery syndrome lumbar area. 2 lumbar degenerative disc disease 3-lumbar radiculopathy, 4. bilateral trochanteric bursitis . Postoperative diagnosis= same Fluoroscopy was used for the procedure and fluoroscopic images were saved to the patient's chart Anesthesia= IV sedation with Versed and fentanyl , and local infiltration with lidocaine 1% 3 mL for skin and subcutaneous tissue infiltrations. Sedation time 23 minutes Description of the procedure= procedure risk and benefits discussed with the patient, including but not limited to risk of infection and bleeding and ALLERGIC reaction to the medication and no complete pain relief, paralysis discussed with the patient and the patient agreed with proceeding. The patient was taken to the operating room, placed in prone position, standard monitors applied, then after induction of anesthesia the lumbar and the caudal Area prepped with chlorhexidine , then under fluoroscopy guidance, local infiltration of the skin and subcutaneous tissue at the caudal hiatus area, then a 17-gauge Touhy needle advanced slowly under fluoroscopy and passed through the cauda hiatus and advanced to the epidural space upto the S3 level. Aspiration revealed no heme, no paresthesia, no cerebrospinal fluid, then Isovue 200 2mls was injected under live fluoroscopy that showed good spread in the epidural space, no intrathecal spread, then a 22 leelee Racz catheter was advanced slowly through the needle up to the L3 level and I was able to break the scar tissue by advancing and withdrawing the catheter multiple times. Once lysis of adhesion was completed, a mixture of lidocaine 1% 1 mL +5 mL of preservative-free normal saline +40 mg of depomedrol was mixed together , and injected epidurally through the Racz catheter after negative aspiration. Then, my attention was turned to greater trochanter injections. Patient had history of severe hip pain secondary to trochanteric bursitis for this reason patient was a good candidate to have bilateral trochanteric bursa steroid injection. Risks and benefits of the procedure including but not limited to risk of infection and bleeding and not complete pain relief and ALLERGIC reaction to medication discussed with the patient and the alternative also discussed with the patient and patient agreed with the preceding. Patient was taken to the operating room placed in prone position or standard monitors applied, the back and the hip area prepped with chlorhexidine, using fluo roscopic guidance the bilateral greater trochanters were identified. Then, under sterile techniquea 25-gauge needle was used for skin and subcutaneous tissue infiltration with 1% lidocaine 1 mL, then a 22-gauge Quincke-type spinal needle advanced slowly under fluoroscopy and placed in the bilateral trochanteric bursa. needle placement confirmed with AP fluoroscopy. Then, 1 mL of Isovue 200 was injected, revealing no intravascular uptake. Then, a 5 mL of treatment solution consisting of 9 ML of ropivacaine 0.5% mixed with 40 mg of Kenalog was injected into each greater trochanter after negative aspiration. there was no paresthesia during the injection and the needle removed and a dressing applied. patient tolerated the procedure well without any complication and will follow up with the pain clinic in a few weeks. patient discharged home in stable condition
--- NOTE | 2019-12-19 09:05 | FL ---
Fluoroscopy HISTORY: Pain 15 seconds fluoroscopy time supplied to the referring clinician. 8 intraoperative C-arm images docum ent the procedure. See dictated report from anesthesia.
[2019-12-19 10:16] VITALS: BP 123/73; RESP 17
[2019-12-19 10:24] VITALS: PULSE 79
== END ==
LOC: ORPAIN 07:14
PROVIDERS: ATTEND Anesthesiology
DX: M96.1 Postlaminectomy syndrome, not elsewhere classified (principal); G96.12 Meningeal adhesions (cerebral) (spinal); M51.16 Intervertebral disc disorders with radiculopathy, lumbar region; M70.62 Trochanteric bursitis, left hip; M70.61 Trochanteric bursitis, right hip; Z88.1 Allergy status to other antibiotic agents; Z88.5 Allergy status to narcotic agent
CPT/HCPCS: 62264; 20610; J2250; J1030; J3301; J3010; J2274; Q9966; 99152; 99153

== ENCOUNTER → 2020-02-10 | Outpatient (CLI) | payer MEDICARE, BC ==
--- NOTE | 2020-02-11 16:39 | CT ---
EXAMINATION TYPE: CT lumbar spine wo con DATE OF EXAM: 02/10/2020 COMPARISON: 11/24/2019 abdomen pelvis HISTORY: 80-year-old female low back pain with radiation bilaterally to the legs TECHNIQUE: Contiguous axial scanning of the lumbar spine without IV contrast. Coronal and sagittal re constructions performed. CT DLP: 953.5 mGycm Automated exposure control for dose reduction was used. FINDINGS: The dextroconvexed scoliotic curvature. Post surgical changes of posterior lumbar fusion from L1 thro ugh L2 and also at L4-S1 levels. There appears to be interbody ankylosis and lateral osseous fusion a cross L2-L3. Corresponding laminectomies along the fused levels. Fixed grade 1 anterolisthesis at L4-L5 and L5-S1. Above the fusion at T12-L1, there is severe degenerative disc disease and endplate spondylosis with e xtensive endplate irregularity and hypertrophic facet arthropathy. Large left paracentral disc extrus ion measuring up to 1.4 cm wide by 1.1 cm craniocaudal by 1.7 cm AP. This continues to have moderate bilateral canal stenosis. There is also a smaller right paracentral herniation measuring 8 mm wide at this level. On the left, changes contribute to a moderate neuroforaminal stenosis at T12-L1 and moderate to sever e at L1-L2. Mild to moderate at L2-L3 and L4-L5. On the right, changes result in moderate neural foraminal stenoses at T12-L1 and L1-L2 as well as L4- L5 and L5-S1. Vertebral body heights are preserved. No prevertebral or paravertebral soft tissue abnormality. IMPRESSION: 1. Posterior lumbar fusion at L1-L2 and also at L4-S1 levels. Interbody ankylosis and lateral osseous fusion across L2-L3. Laminectomies along the surgical levels. 2. Advanced, severe degenerative disc disease and endplate spondylosis above the fusion at T12-L1 armando ng with facet arthropathy. There is associated endplate remodeling and sclerosis and a large left par acentral disc extrusion (measuring 1.7 x 1.4 x 1.1 cm) and a smaller right paracentral herniation. Th is results in moderate spinal canal stenosis as well as moderate bilateral neuroforaminal stenoses. 3. Additional variable mild to moderate neuroforaminal stenoses as outlined above.
== END | disposition home or self-care (01) ==
LOC: RADCTMAIN 10:01
DX: M48.061 Spinal stenosis, lumbar region without neurogenic claudication (principal); M51.26 Other intervertebral disc displacement, lumbar region; M51.36 Other intervertebral disc degeneration, lumbar region; M47.815 Spondylosis without myelopathy or radiculopathy, thoracolumbar region; Z98.1 Arthrodesis status
CPT/HCPCS: 72131

== ENCOUNTER 2020-03-08 17:16 | Inpatient (IN) | payer MEDICARE, BC ==
[2020-03-08] MEDS ORDERED: SODIUM CHLORIDE 0.9% 500 ML 500 ML IV STA (17:44)
--- NOTE | 2020-03-08 17:49 | ED ---
Weakness HPI - General Chief complaint: Weakness Stated complaint: Weakness Time Seen by Provider: 03/08/20 17:20 Source: patient, EMS Mode of arrival: EMS Limitations: no limitations - History of Present Illness Initial comments: Patient is a 72-year-old female past history of lymphoma, diabetes, hypertension, hyperlipidemia who presents to the emergency department with reported generalized weakness and presyncope. Patient states she woke this morning he felt generally weak and felt as if she was given a pass out. States that her symptoms became progressively worse at 4 PM when she was sitting watching TV. Reports that she felt numbness and tingling to the lateral sides of her face as well as her upper extremities. Denies any lower extremity tingling. She called EMS who brought her into the room. Admits to mild shortness of breath. Denies cough or hemoptysis. Mild chest pressure. Denies any abdominal pain. No changes in her bowel or bladder habits. Does have chronic back pain which radiates into her lower extremity's. States she is currently seen a neurosurgeon for this. She takes [place] for pain control. Patient reports a large family history of PE. No personal history of DVT or PE. No calf pain or swelling. Patient is not on any anticoagulation. No recent surgeries. No other alleviating, precipitating or modifying factors - Related Data Home Medications Medication Instructions Recorded Confirmed Calcium Carb-Vit D 500Mg-200Un 1 tab PO DAILY 01/05/14 03/08/20 [Oscal 500+D] allopurinoL [Zyloprim] 100 mg PO DAILY 01/05/14 03/08/20 amLODIPine BESYLATE [Norvasc] 5 mg PO DAILY 01/05/14 03/08/20 atenoloL [Tenormin] 50 mg PO BID 01/05/14 03/08/20 Levothyroxine Sodium [Synthroid] 12.5 mcg PO DAILY 03/16/14 03/08/20 Zolpidem [Ambien] 5 mg PO HS PRN 03/16/14 03/08/20 metFORMIN HCL [Glucophage] 500 mg PO DAILY 11/12/17 03/08/20 Potassium Chloride 10 meq PO DAILY 07/21/19 03/08/20 rOPINIRole HCL [Requip Xl] 2 mg PO BID 07/21/19 03/08/20 HYDROcodone/APAP 10-325MG [[place] 1 tab PO Q8H PRN 11/24/19 03/08/20 10-325] FLUoxetine HCL [PROzac] 10 mg PO DAILY 03/08/20 03/08/20 FLUoxetine HCL [PROzac] 20 mg PO DAILY 03/08/20 03/08/20 Montelukast Sodium [Singulair] 10 mg PO HS 03/08/20 03/08/20 Omeprazole [PriLOSEC] 40 mg PO DAILY 03/08/20 03/08/20 traMADol HCL 50 mg PO TID PRN 03/08/20 03/08/20 Previous Rx's Medication Instructions Recorded Ferrous Sulfate [Iron (65 MG 325 mg PO DAILY #30 tab 11/27/19 Elemental)] Apixaban [Eliquis Starter Pack 0 mg PO DIRECTED 30 Days #1 pack 03/09/20 (for VTE)] Allergies Allergy/AdvReac Type Severity Reaction Status Date / Time adhesive Allergy red skin, Verified 03/08/20 21:10 blisters cefaclor [From Ceclor] Allergy Rash/Hives Verified 03/08/20 21:10 ciprofloxacin [From Cipro] Allergy Rash/Hives Verified 03/08/20 21:10 ciprofloxacin HCl Allergy Rash/Hives Verified 03/08/20 21:10 [From Cipro] hydromorphone HCl Allergy Anaphylaxis Verified 03/08/20 21:10 [From Dilaudid] Penicillins Allergy Rash/Hives Verified 03/08/20 21:10 sulfamethoxazole AdvReac Abdominal Verified 03/08/20 21:10 [From Bactrim] Pain trimethoprim [From Bactrim] AdvReac Abdominal Verified 03/08/20 21:10 Pain Review of Systems ROS Statement: Those systems with pertinent positive or pertinent negative responses have been documented in the HPI. ROS Other: All systems not noted in ROS Statement are negative. Past Medical History Past Medical History: Cancer, Diabetes Mellitus, GERD/Reflux, Hyperlipidemia, Hypertension, Osteoarthritis (OA), Syncope Additional Past Medical History / Comment(s): TIA X2, SYNCOPE in 2013, VARICOSE VEINS, GOUT, LYMPHOMA (HX OF CHEMO & RADIATION 1977,1982 & 1993) History of Any Multi-Drug Resistant Organisms: None Reported Past Surgical History: Back Surgery, Cholecystectomy, Hysterectomy, Joint Replacement, Orthopedic Surgery Additional Past Surgical History / Comment(s): RIGHT HIP REPAIR, LEFT KNEE REPLACEMENT, HAND & FOOT SURG, BREAST & AXILLARY BX, TUMOR IN THROAT REMOVED., CERVICAL FUSION, 02-07-15 LUMBAR LAMINECTOMY,DECOMPRESSION-FUSION L1-L2., right knee replaced 07-31-19 Past Anesthesia/Blood Transfusion Reactions: No Reported Reaction Additional Past Anesthesia/Blood Transfusion Reaction / Comment(s): CLAUSTROPHOBIA Past Psychological History: Anxiety, Depression Smoking Status: Never smoker Past Alcohol Use History: None Reported Past Drug Use History: None Reported - Past Family History Father Family Medical History: Deep Vein Thrombosis (DVT) Additional Family Medical History / Comment(s): Father at age 32 from pulmonary embolism. Mother Family Medical History: Cancer Additional Family Medical History / Comment(s): Mother in her late 80s from breast cancer and also had dementia. Brother(s) Family Medical History: Cancer, Deep Vein Thrombosis (DVT) Additional Family Medical History / Comment(s): Patient had 2 brothers that have passed one from myocardial infarction and one from pulmonary embolism. 2 brothers are alive and one has lung cancer, one brother is alive with a brain aneurysm and CVA. General Exam Limitations: no limitations General appearance: alert, in no apparent distress, anxious Head exam: Present: atraumatic, normocephalic, normal inspection Eye exam: Present: normal appearance, PERRL, EOMI. Absent: scleral icterus, conjunctival injection, periorbital swelling ENT exam: Present: normal exam, mucous membranes moist Neck exam: Present: normal inspection. Absent: tenderness, meningismus, lymphadenopathy Respiratory exam: Present: normal lung sounds bilaterally. Absent: respiratory distress, wheezes, rales, rhonchi, stridor Cardiovascular Exam: Present: normal rhythm, tachycardia, normal heart sounds. Absent: systolic murmur, diastolic murmur, rubs, gallop, clicks GI/Abdominal exam: Present: soft, normal bowel sounds. Absent: distended, tenderness, guarding, rebound, rigid Extremities exam: Present: normal inspection, full ROM, normal capillary refill. Absent: tenderness, pedal edema, joint swelling, calf tenderness Back exam: Present: tenderness, paraspinal tenderness, other (SI joint tenderness, right greater than left. Positive straight leg raise. Painful hip flexion however intact and strength 4/5 in the right due to pain. ) Neurological exam: Present: alert, oriented X3, CN II-XII intact Psychiatric exam: Present: normal affect, normal mood Skin exam: Present: warm, dry, intact, normal color. Absent: rash Course Vital Signs 03/08/20 03/08/20 03/08/20 17:26 18:31 18:48 Temperature 98.1 F Pulse Rate 111 H 105 H Pulse Rate [ Pulse Oximetery ] Respiratory 22 18 Rate Blood Pressure 149/96 132/90 Blood Pressure 120/81 [Right Arm Sitting] Blood Pressure 128/100 [Right Arm Standing] Blood Pressure 130/83 [Right Arm Supine] O2 Sat by Pulse 95 Oximetry 03/08/20 03/08/20 03/08/20 19:00 21:34 21:37 Temperature 98.2 F Pulse Rate 104 H 105 H Pulse Rate [ 104 H Pulse Oximetery ] Respiratory 16 18 16 Rate Blood Pressure 118/88 140/97 Blood Pressure [Right Arm Sitting] Blood Pressure [Right Arm Standing] Blood Pressure 150/83 [Right Arm Supine] O2 Sat by Pulse 97 99 Oximetry 03/08/20 23:00 Temperature 98.0 F Pulse Rate 101 H Pulse Rate [ Pulse Oximetery ] Respiratory 22 Rate Blood Pressure 135/68 Blood Pressure [Right Arm Sitting] Blood Pressure [Right Arm Standing] Blood Pressure [Right Arm Supine] O2 Sat by Pulse 98 Oximetry EKG Findings - EKG Comments: EKG Findings:: EKG demonstrates a sinus tachycardia with a ventricular rate of 109. IA interval 132. QRS 108. QTC of 490. There is a right bundle branch block present. Mild ST depression in the inferior and lateral leads. Significant baseline artifact. No acute ST segment elevation Medical Decision Making - Medical Decision Making Upon arrival the patient is placed into room 28. A thorough history and physical exam was performed. Patient is hooked up to continuous pulse ox and cardiac monitoring. Patient is tachycardic with pulse oxygen is 95%. Laboratory studies were conducted. Patient cried the urine sample. Orthostatics are performed and are negative. Laboratory studies are remarkable for a d-dimer of 1.5. Lactic acid is 3.1. Urinalysis is positive for large leukocyte esterase, 6 red blood cells and 14 white blood cells. Troponin is negative. Because the patient's elevated d-dimer with shortness of breath and tachycardia did perform a CT of the patient's chest. CTA demonstrates a thrombus in the right lower lobe. No evidence of heart strain. The patient has no contraindications to heparin. She is placed on heparin drip. She is given a dose of antibiotics because of her abnormal UA. I did recommend hospital admission with pulmonology consult. Patient agreed to this. Case was discussed with Dr. Farooq. He requested Doppler ultrasound to be performed. She agreed to this plan and is awaiting a bed on the floor - Lab Data Result diagrams: 03/08/20 18:29 03/09/20 06:06 Lab Results 03/08/20 03/08/20 03/08/20 Range/Units 18:20 18:22 18:29 WBC 7.5 (3.8-10.6) k/uL RBC 4.32 (3.80-5.40) m/uL Hgb 13.2 (11.4-16.0) gm/dL Hct 39.3 (34.0-46.0) % MCV 90.9 (80.0-100.0) fL MCH 30.6 (25.0-35.0) pg MCHC 33.7 (31.0-37.0) g/dL RDW 16.0 H (11.5-15.5) % Plt Count 144 L (150-450) k/uL Neutrophils % Not Reportable Neutrophils % (Manual) 84 % Lymphocytes % Not Reportable Lymphocytes % (Manual) 7 % Monocytes % Not Reportable Monocytes % (Manual) 6 % Eosinophils % Not Reportable Basophils % Not Reportable Metamyelocytes % 3 % Myelocytes % 1 % Neutrophils # Not Reportable Neutrophils # (Manual) 6.30 (1.3-7.7) k/uL Lymphocytes # Not Reportable Lymphocytes # (Manual) 0.53 L (1.0-4.8) k/uL Monocytes # Not Reportable Monocytes # (Manual) 0.45 (0-1.0) k/uL Eosinophils # Not Reportable Basophils # Not Reportable Metamyelocytes # (Man) 0.23 H (0) k/uL Myelocytes # (Manual) 0.08 H (0) k/uL Nucleated RBCs 0 (0-0) /100 WBC Manual Slide Review Performed RBC Morphology Normal PT (9.0-12.0) sec INR (<1.2) APTT (22.0-30.0) sec D-Dimer (<0.60) mg/L FEU Sodium (137-145) mmol/L Potassium (3.5-5.1) mmol/L Chloride (98-107) mmol/L Carbon Dioxide (22-30) mmol/L Anion Gap mmol/L BUN (7-17) mg/dL Creatinine (0.52-1.04) mg/dL Est GFR (CKD-EPI)AfAm (>60 ml/min/1.73 sqM) Est GFR (CKD-EPI)NonAf (>60 ml/min/1.73 sqM) Glucose (74-99) mg/dL POC Glucose (mg/dL) (75-99) mg/dL POC Glu [employer] ID Lactic Ac Sepsis Rflx Plasma Lactic Acid Luis (0.7-2.0) mmol/L Calcium (8.4-10.2) mg/dL Total Bilirubin (0.2-1.3) mg/dL AST (14-36) U/L ALT (4-34) U/L Alkaline Phosphatase (38-126) U/L Troponin I (0.000-0.034) ng/mL NT-Pro-B Natriuret Pep 234 pg/mL Total Protein (6.3-8.2) g/dL Albumin (3.5-5.0) g/dL TSH (0.465-4.680) mIU/L Urine Color Yellow Urine Appearance Cloudy H (Clear) Urine pH 5.5 (5.0-8.0) Ur Specific [place] 1.013 (1.001-1.035) Urine Protein Negative (Negative) Urine Glucose (UA) 1+ H (Negative) Urine Ketones Negative (Negative) Urine Blood Trace H (Negative) Urine Nitrite Negative (Negative) Urine Bilirubin Negative (Negative) Urine Urobilinogen <2.0 (<2.0) mg/dL Ur Leukocyte Esterase Large H (Negative) Urine RBC 6 H (0-5) /hpf Urine WBC 14 H (0-5) /hpf Ur Squamous Epith Cells 3 (0-4) /hpf Urine Bacteria Occasional H (None) /hpf Urine Mucus Few H (None) /hpf 03/08/20 03/08/20 03/08/20 Range/Units 18:29 18:29 18:29 WBC (3.8-10.6) k/uL RBC (3.80-5.40) m/uL Hgb (11.4-16.0) gm/dL Hct (34.0-46.0) % MCV (80.0-100.0) fL MCH (25.0-35.0) pg MCHC (31.0-37.0) g/dL RDW (11.5-15.5) % Plt Count (150-450) k/uL Neutrophils % Neutrophils % (Manual) % Lymphocytes % Lymphocytes % (Manual) % Monocytes % Monocytes % (Manual) % Eosinophils % Basophils % Metamyelocytes % % Myelocytes % % Neutrophils # Neutrophils # (Manual) (1.3-7.7) k/uL Lymphocytes # Lymphocytes # (Manual) (1.0-4.8) k/uL Monocytes # Monocytes # (Manual) (0-1.0) k/uL Eosinophils # Basophils # Metamyelocytes # (Man) (0) k/uL Myelocytes # (Manual) (0) k/uL Nucleated RBCs (0-0) /100 WBC Manual Slide Review RBC Morphology PT 9.6 (9.0-12.0) sec INR 0.9 (<1.2) APTT 16.6 L (22.0-30.0) sec D-Dimer 1.50 H (<0.60) mg/L FEU Sodium 136 L (137-145) mmol/L Potassium 3.9 (3.5-5.1) mmol/L Chloride 107 (98-107) mmol/L Carbon Dioxide 18 L (22-30) mmol/L Anion Gap 11 mmol/L BUN 15 (7-17) mg/dL Creatinine 0.60 (0.52-1.04) mg/dL Est GFR (CKD-EPI)AfAm >90 (>60 ml/min/1.73 sqM) Est GFR (CKD-EPI)NonAf 88 (>60 ml/min/1.73 sqM) Glucose 130 H (74-99) mg/dL POC Glucose (mg/dL) (75-99) mg/dL POC Glu [employer] ID Lactic Ac Sepsis Rflx Plasma Lactic Acid Luis 3.1 H* (0.7-2.0) mmol/L Calcium 9.8 (8.4-10.2) mg/dL Total Bilirubin 0.9 (0.2-1.3) mg/dL AST 27 (14-36) U/L ALT 19 (4-34) U/L Alkaline Phosphatase 85 (38-126) U/L Troponin I (0.000-0.034) ng/mL NT-Pro-B Natriuret Pep pg/mL Total Protein 6.5 (6.3-8.2) g/dL Albumin 4.0 (3.5-5.0) g/dL TSH 2.140 (0.465-4.680) mIU/L Urine Color Urine Appearance (Clear) Urine pH (5.0-8.0) Ur Specific [place] (1.001-1.035) Urine Protein (Negative) Urine Glucose (UA) (Negative) Urine Ketones (Negative) Urine Blood (Negative) Urine Nitrite (Negative) Urine Bilirubin (Negative) Urine Urobilinogen (<2.0) mg/dL Ur Leukocyte Esterase (Negative) Urine RBC (0-5) /hpf Urine WBC (0-5) /hpf Ur Squamous Epith Cells (0-4) /hpf Urine Bacteria (None) /hpf Urine Mucus (None) /hpf 03/08/20 03/08/20 03/08/20 Range/Units 18:29 18:36 19:08 WBC (3.8-10.6) k/uL RBC (3.80-5.40) m/uL Hgb (11.4-16.0) gm/dL Hct (34.0-46.0) % MCV (80.0-100.0) fL MCH (25.0-35.0) pg MCHC (31.0-37.0) g/dL RDW (11.5-15.5) % Plt Count (150-450) k/uL Neutrophils % Neutrophils % (Manual) % Lymphocytes % Lymphocytes % (Manual) % Monocytes % Monocytes % (Manual) % Eosinophils % Basophils % Metamyelocytes % % Myelocytes % % Neutrophils # Neutrophils # (Manual) (1.3-7.7) k/uL Lymphocytes # Lymphocytes # (Manual) (1.0-4.8) k/uL Monocytes # Monocytes # (Manual) (0-1.0) k/uL Eosinophils # Basophils # Metamyelocytes # (Man) (0) k/uL Myelocytes # (Manual) (0) k/uL Nucleated RBCs (0-0) /100 WBC Manual Slide Review RBC Morphology PT (9.0-12.0) sec INR (<1.2) APTT (22.0-30.0) sec D-Dimer (<0.60) mg/L FEU Sodium (137-145) mmol/L Potassium (3.5-5.1) mmol/L Chloride (98-107) mmol/L Carbon Dioxide (22-30) mmol/L Anion Gap mmol/L BUN (7-17) mg/dL Creatinine (0.52-1.04) mg/dL Est GFR (CKD-EPI)AfAm (>60 ml/min/1.73 sqM) Est GFR (CKD-EPI)NonAf (>60 ml/min/1.73 sqM) Glucose (74-99) mg/dL POC Glucose (mg/dL) 126 H (75-99) mg/dL POC Glu [employer] ID Vicente Noe Lactic Ac Sepsis Rflx Y Plasma Lactic Acid Luis (0.7-2.0) mmol/L Calcium (8.4-10.2) mg/dL Total Bilirubin (0.2-1.3) mg/dL AST (14-36) U/L ALT (4-34) U/L Alkaline Phosphatase (38-126) U/L Troponin I <0.012 (0.000-0.034) ng/mL NT-Pro-B Natriuret Pep pg/mL Total Protein (6.3-8.2) g/dL Albumin (3.5-5.0) g/dL TSH (0.465-4.680) mIU/L Urine Color Urine Appearance (Clear) Urine pH (5.0-8.0) Ur Specific [place] (1.001-1.035) Urine Protein (Negative) Urine Glucose (UA) (Negative) Urine Ketones (Negative) Urine Blood (Negative) Urine Nitrite (Negative) Urine Bilirubin (Negative) Urine Urobilinogen (<2.0) mg/dL Ur Leukocyte Esterase (Negative) Urine RBC (0-5) /hpf Urine WBC (0-5) /hpf Ur Squamous Epith Cells (0-4) /hpf Urine Bacteria (None) /hpf Urine Mucus (None) /hpf Critical Care Time Critical Care Time: Yes Critical Care Time: 32 minutes Disposition Clinical Impression: Weakness generalized, Tachycardia, Pulmonary embolism, UTI (urinary tract infection) Disposition: ADMITTED IP TO THIS HOSP Condition: Good Is patient prescribed a controlled substance at d/c from ED?: No Decision to Admit Reason: Admit from EC Decision Date: 03/08/20 Decision Time: 20:46
[2020-03-08 18:42] LABS: HCT 39.3 % (34.0-46.0); HGB 13.2 gm/dL (11.4-16.0); MCH 30.6 pg (25.0-35.0); MCHC 33.7 g/dL (31.0-37.0); MCV 90.9 fL (80.0-100.0); Mean Platelet Volume 7.4; Platelet Count 144 k/uL (150-450); RBC 4.32 m/uL (3.80-5.40); WBC 7.5 k/uL (3.8-10.6)
[2020-03-08 18:47] LABS: Glucose,Whole Blood 126 mg/dL (75-99)
[2020-03-08 18:58] LABS: Appearance,Urine Cloudy (Clear); Bacteria,Urine Occasional /hpf; Bilirubin,Urine Negative (Negative); Blood,Urine Trace (Negative); Color,Urine Yellow; Glucose,Urine (UA) 1+ (Negative); Ketones,Urine Negative (Negative); Leukocyte Esterase,Urine Large (Negative); Mucus,Urine Few /hpf; Nitrite,Urine Negative (Negative); PH, Urine 5.5 (5.0-8.0); Protein,Urine Negative (Negative); RBC,Urine 6 /hpf (0-5); Specific Gravity,Urine 1.013 (1.001-1.035); Squamous Epithelial Cell,Urine 3 /hpf (0-4); Urobilinogen,Urine <2.0 mg/dL (<2.0); WBC,Urine 14 /hpf (0-5)
[2020-03-08 19:00] LABS: INR 0.9 (<1.2); Prothrombin Time 9.6 sec (9.0-12.0)
[2020-03-08 19:04] LABS: Partial Thromboplastin Time 16.6 sec (22.0-30.0)
[2020-03-08 19:06] LABS: D-Dimer 1.5 mg/L FEU (<0.60)
[2020-03-08] MEDS ORDERED: HYDROcodone/APAP 10-325MG 1 EACH TAB PO ONE (19:06)
[2020-03-08 19:09] LABS: ALT 19 U/L (4-34); AST 27 U/L (14-36); African American GFR (CKD) >90 (>60 ml/min/1.73 sqM); Alkaline Phosphatase 85 U/L (38-126); Anion Gap 11 mmol/L; Blood Urea Nitrogen 15 mg/dL (7-17); Calcium 9.8 mg/dL (8.4-10.2); Carbon Dioxide 18 mmol/L (22-30); Chloride 107 mmol/L (98-107); Glucose 130 mg/dL (74-99); Non-African American GFR(CKD) 88 (>60 ml/min/1.73 sqM); Potassium 3.9 mmol/L (3.5-5.1); Sodium 136 mmol/L (137-145); Total Bilirubin 0.9 mg/dL (0.2-1.3); Total Protein 6.5 g/dL (6.3-8.2)
[2020-03-08 19:25] LABS: Lymphocytes # (M) 0.53 k/uL (1.0-4.8); Metamyelocytes # (M) 0.23 k/uL (0); Metamyelocytes % 3 %; Monocytes # (M) 0.45 k/uL (0-1.0); Myelocytes # (M) 0.08 k/uL (0); Myelocytes % 1 %; Neutrophils % (M) 84 %; Nucleated Red Blood Cells 0 /100 WBC (0-0); Total Cells Counted 200
[2020-03-08] MEDS ORDERED: cefTRIAXone IN SWFI 1,000 MG/10 ML SYRINGE IVP STA (19:29)
--- NOTE | 2020-03-08 20:21 | XR ---
EXAMINATION TYPE: XR chest 2V DATE OF EXAM: 03/08/2020 COMPARISON: 06/29/2014 HISTORY: Weakness TECHNIQUE: FINDINGS: There is no heart failure nor confluent pneumonic infiltrate. Thoracic aorta is atheromatou s. Heart size is normal. Costophrenic angles are clear. Bony thorax is intact. IMPRESSION: No active cardiopulmonary disease. Normal heart. No change.
--- NOTE | 2020-03-08 20:31 | CT ---
EXAMINATION TYPE: CT chest angio for PE DATE OF EXAM: 03/08/2020 COMPARISON: None HISTORY: elevated d-dimer CT DLP: 295.9 mGycm Automated exposure control for dose reduction was used. CONTRAST: Performed with IV Contrast, patient injected with 80 mL of Isovue 370. There are 3-D post processed images. Thoracic aorta is atheromatous. There is no mediastinal adenopathy. There are no hilar masses. The lungs are clear of consolidation. There is no pleural effusion. Heart size is normal. There is no pericardial effusion. There is filling defect in the right lower lobe pulmonary artery. There is normal contrast opacificat ion of the left pulmonary artery. The bony thorax is intact. IMPRESSION: There is small thrombus in the right lower lobe pulmonary artery. No evidence of right heart strain. This exam was discussed with Dr. Ocampo at 8:30 PM.
[2020-03-08] MEDS ORDERED: HEPARIN SODIUM,PORCINE 10,000 UNIT/ML 1 ML VIAL IV ONE (20:41)
[2020-03-08] MEDS ORDERED: HEPARIN SODIUM,PORCINE 5,000 UNIT/ML 1 ML VIAL IV PRN (20:41)
[2020-03-08] MEDS ORDERED: NALOXONE 0.4 MG/ML 1 ML VIAL IV PRN (20:47)
[2020-03-08] MEDS ORDERED: MORPHINE SULFATE 2 MG/ML SYRINGE IVP ONE (21:18)
[2020-03-08] MEDS: SODIUM CHLORIDE 0.9% 1,000 ML IV SCH (21:56)
--- NOTE | 2020-03-08 21:59 | US ---
EXAMINATION TYPE: US venous doppler duplex LE DATE OF EXAM: 03/08/2020 9:47 PM COMPARISON: NONE CLINICAL HISTORY: pe positive. Right leg pain, pe found tonight, SOB, no h/o dvt SIDE PERFORMED: Bilateral TECHNIQUE: The lower extremity deep venous system is examined utilizing real time linear array sonog [place] with graded compression, doppler sonography and color-flow sonography. VESSELS IMAGED: External Iliac Vein (EIV) Common Femoral Vein Deep Femoral Vein Greater Saphenous Vein * Femoral Vein Popliteal Vein Small Saphenous Vein * Proximal Calf Veins (* superficial vessels) Right Leg: Negative for DVT Left Leg: internal echoes at level of popiteal vein, non compressible, thready flow, positive for DV T IMPRESSION: There is evidence of acute and chronic deep vein thrombosis in the left leg.
[2020-03-08] MEDS: HEPARIN SOD,PORK IN 0.45% NACL 25,000 UNIT in 0.45% NACL 1 250ML.BAG IV SCH (22:03)
[2020-03-09] MEDS ORDERED: ZOLPIDEM 5 MG TAB PO PRN (03:19)
[2020-03-09] MEDS: HYDROcodone/APAP 10-325MG 1 EACH TAB PO PRN ×2 (03:35→21:52)
[2020-03-09 04:02] LABS: INR 1.1 (<1.2); Prothrombin Time 10.9 sec (9.0-12.0)
[2020-03-09 06:07] LABS: Glucose,Whole Blood 163 mg/dL (75-99)
[2020-03-09] MEDS: LEVOTHYROXINE 25 MCG TAB PO SCH (06:45)
[2020-03-09] MEDS: PANTOPRAZOLE 40 MG TABLET PO SCH (06:45)
[2020-03-09 07:37] LABS: ALT 18 U/L (4-34); AST 29 U/L (14-36); African American GFR (CKD) >90 (>60 ml/min/1.73 sqM); Albumin 3.6 g/dL (3.5-5.0); Alkaline Phosphatase 82 U/L (38-126); Anion Gap 7 mmol/L; Blood Urea Nitrogen 13 mg/dL (7-17); Calcium 9.1 mg/dL (8.4-10.2); Carbon Dioxide 23 mmol/L (22-30); Chloride 109 mmol/L (98-107); Glucose 146 mg/dL (74-99); Non-African American GFR(CKD) 87 (>60 ml/min/1.73 sqM); Potassium 3.5 mmol/L (3.5-5.1); Sodium 139 mmol/L (137-145); Total Bilirubin 0.8 mg/dL (0.2-1.3); Total Protein 5.9 g/dL (6.3-8.2)
[2020-03-09] MEDS: POTASSIUM CHLORIDE ER 10 MEQ TAB.ER.PRT PO SCH (08:37)
[2020-03-09] MEDS: atenoloL 50 MG TAB PO SCH ×2 (08:37→21:08)
[2020-03-09] MEDS: allopurinoL 100 MG TAB PO SCH (08:37)
[2020-03-09] MEDS: CALCIUM CARB-VIT D 500MG-200UN 1 EACH TAB PO SCH (08:37)
[2020-03-09] MEDS: FERROUS SULFATE 325 MG TAB PO SCH (08:37)
[2020-03-09] MEDS: FLUoxetine HCL 20 MG CAP PO SCH (08:37)
[2020-03-09] MEDS: amLODIPine 5 MG TAB PO SCH (08:37)
[2020-03-09] MEDS: FLUoxetine HCL 10 MG CAP PO SCH (08:38)
--- NOTE | 2020-03-09 10:25 | P.HPIM ---
History of Present Illness H&P Date: 03/09/20 Chief Complaint: presyncope HISTORY OF PRESENT ILLNESS This is a 80-year-old female one of Dr. Rocha patient with past medical history of type 2 diabetes, non-Hodgkin's lymphoma [place] [address] Monaco and follows with Dr. Aranda status post chemotherapy and radiation therapy, CVA, hypertension, hyperlipidemia, hypertension, hypothyroidism, restless leg syndrome, recurrent depression, and osteoarthritis who has been treated for lower back pain post multiple lower back surgery and epidural injection with pain management at [facility]. Patient's last hospitalization was in November of this year which time she presented with acute GI bleed and acute blood loss anemia. EGD with Dr. Maldonado found minimal antral gastritis and small hiatal hernia. Subsequently, she underwent colonoscopy with Dr. Villatoro that revealed area of ulceration, nonbleeding, in the distal transverse colon which was biopsied. Mild left colonic diverticulosis. Low-grade internal hemorrhoids. Patient was cleared for diet advanced to a low fiber and cleared for discharge. We advised to hold Plavix for 1 week which she was on for CVA. Noted the patient is not currently on Plavix. Patient presented yesterday to [facility] ER with generalized weakness that started yesterday morning. She complains of lightheadedness and dizziness a little shortness of breath. She denied having any chest pain. She has not had any recent episodes of chest pain. She also had some tingling of the upper extremities. She did not have any loss of consciousness. No nausea or vomiting. No blurred vision. No headache. She does state that she had a l small amount of left foot and ankle swelling but not significant. She denies any recent travel. No recent diagnosis of cancer. No recent surgeries. She denies any history of atrial fibrillation. Patient was found to be afebrile, heart rate 111, blood pressure 149/96, pulse ox 95% on room air. Orthostatics were negative. D-dimer was elevated at 1.5. Troponin -0.012. Sodium 136, potassium 3.9, chloride 107, CO2 18, BUN 15 and creatinine 0.6. Blood sugar 130. Urinalysis showed leukoesterase large, RBCs 6, wbc's 14. Urine culture is in process. WBC 7.5, hemoglobin 13.2, platelet count 144. EKG was sinus bradycardia with PACs and right bundle branch block. Chest x-ray showed no active cardiac pulmonary disease and normal heart. CT of the chest showed a small thrombus in the right lower lobe pulmonary artery. No evidence of right heart strain. Patient was started on a heparin drip and placed on the cardiac stepdown unit, consult with pulmonary medicine, echocardiogram ordered. REVIEW OF SYSTEMS Constitutional: No fever, no chills, no night sweats. No weight change. Reports weakness, reports fatigue denies lethargy. No daytime sleepiness. EENT: No headache. No blurred vision or double vision, no loss of vision. No loss of Hearing, no ringing in the ears, Reports dizziness. No nasal drainage or congestion. No epistaxis. No sore throat. Lungs: Reports shortness of breath, cough, no sputum production. No wheezing. Cardiovascular: No chest pain, Reports left lower extremity edema. No palpitations. No paroxysmal nocturnal dyspnea. No orthopnea. No lightheadedness or dizziness. No syncopal episodes. Abdominal: No abdominal pain. No nausea, vomiting. No diarrhea. No constipation. No bloody or tarry stools.. No loss of appetite. Genitourinary: No dysuria, increased frequency, urgency. No urinary retention. Musculoskeletal: No myalgias. Reports muscle weakness, no gait dysfunction, no frequent falls. No back pain. No neck pain. Integumentary: No wounds, no lesions. No rash or pruritus. No unusual bruising. No change in hair or nails. Neurologic: No aphasia. No facial droop. No change in mentation. No head injury. No headache. No paralysis. No paresthesia. Psychiatric: No depression. No anxiety. No mood swings. Endocrine: No abnormal blood sugars. No weight change. No excessive sweating or thirst. No cold intolerance. SOCIAL HISTORY Patient is a lifelong nonsmoker. No alcohol use, marijuana use, illicit drug use. FAMILY HISTORY Mother in her late 80s from breast cancer and dementia. Father at age 32 from pulmonary embolism and DVT. Patient has 2 brothers and a past, one from myocardial infarction and one from pulmonary embolism. 2 brothers are alive and one has lung cancer and one living brother has a brain aneurysm and CVA. Patient has 6 children with no major medical problems. PHYSICAL EXAMINATION Gen: This is A 80-year-old female. Patient is resting bed appears to be comfortable and in no acute distress. No respiratory distress is noted. HEENT: Head is atraumatic, normocephalic. Pupils equal, round. Sclerae is anicteric. NECK: Supple. No JVD. No lymphadenopathy. No thyromegaly. LUNGS: Clear to auscultation. No wheezes or rhonchi. No intercostal retractions. HEART: Regular rate and rhythm. No murmur. ABDOMEN: Soft. Bowel sounds are present. No masses. No tenderness. EXTREMITIES: No pedal edema. No calf tenderness. Dorsalis pedis palpable bilaterally. No significant edema in the left lower extremity. NEUROLOGICAL: Patient is awake, alert and oriented x3. Cranial nerves 2 through 12 are grossly intact. ASSESSMENT AND PLAN 1. Right lower lobe pulmonary embolism. Patient is been started on a heparin drip. We will plan to start eliquis tomorrow morning and prescription has been sent to her pharmacy in anticipation of possible discharge tomorrow. Consult with pulmonary medicine. Echocardiogram has been ordered. Patient will be advised to follow-up with Dr. Aranda postdischarge. Patient has strong family history of PE. 2. Diabetes mellitus type 2. Metformin on hold. Patient will be on NovoLog scale before meals and at bedtime. 3. Non-Hodgkin's lymphoma [place] [address] Monaco and follows with Dr. Aranda, in remission. 4. History of TIA with no deficits. 5. History of GI bleed secondary to colon ulcer in November 2019 without recurrence. Continue Protonix. Patient to monitor for bleeding closely while on eliquis. Continue ferrous sulfate daily. 6. Degenerative disc disease and chronic back pain. Continue tramadol as needed for pain 7. Hypertension. Continue amlodipine 5 mg daily, atenolol 50 mg twice daily. 8. Hypothyroidism. Continue levothyroxine 12.5 g daily. 9. Seasonal ALLERGIES. Continue Singulair 10 mg at bedtime. 10. Recurrent depression. Continue. Prozac 30 mg daily. 11. Chronic gout continue allopurinol 100 mg daily. 12. Hyperlipidemia. Patient is currently on statin. 13. Restless leg syndrome. Continue Requip. 14. GI prophylaxis. Protonix Patient will be admitted to the hospital for a minimum of 2 night stay. Discharge plan: Most likely home on Wednesday. Impression and plan of care have been directed as dictated by the signing physician. Karen Quintero nurse practitioner acting as scribe for signing physician. Past Medical History Past Medical History: Cancer, CVA/TIA, Diabetes Mellitus, GERD/Reflux, Hyperlipidemia, Hypertension, Osteoarthritis (OA), Syncope Additional Past Medical History / Comment(s): TIA X2, SYNCOPE in 2013, VARICOSE VEINS, GOUT, LYMPHOMA (HX OF CHEMO & RADIATION 1977,1982 & 1993) History of Any Multi-Drug Resistant Organisms: None Reported Past Surgical History: Back Surgery, Cholecystectomy, Hysterectomy, Joint Replacement, Orthopedic Surgery Additional Past Surgical History / Comment(s): RIGHT HIP REPAIR, LEFT KNEE REPLACEMENT, HAND & FOOT SURG (pins inserted in both thumbs), BREAST & AXILLARY BX, TUMOR IN THROAT REMOVED., CERVICAL FUSION, 02-07-15 LUMBAR LAMINECTOMY,DECOMPRESSION-FUSION L1-L2., right knee replaced 07-31-19 Past Anesthesia/Blood Transfusion Reactions: No Reported Reaction Additional Past Anesthesia/Blood Transfusion Reaction / Comment(s): CLAUSTROPHOBIA Past Psychological History: Anxiety, Depression Additional Psychological History / Comment(s): (end of 2019) Smoking Status: Never smoker Past Alcohol Use History: None Reported Additional Past Alcohol Use History / Comment(s): Patient is a lifelong nonsmoker, no illicit drug use, no marijuana use, no alcohol abuse. She drinks wine occasionally. Past Drug Use History: None Reported - Past Family History Father Family Medical History: Deep Vein Thrombosis (DVT) Additional Family Medical History / Comment(s): Father at age 32 from pulmonary embolism. Mother Family Medical History: Cancer, Diabetes Mellitus Additional Family Medical History / Comment(s): Mother in her late 80s, had breast cancer and also had dementia,heart related issues Brother(s) Family Medical History: Cancer, Deep Vein Thrombosis (DVT) Additional Family Medical History / Comment(s): Patient had 2 brothers that have passed one from myocardial infarction and one from pulmonary embolism. 2 brot hers are alive and one has lung cancer, one brother is alive with a brain aneurysm and CVA. Medications and Allergies Home Medications Medication Instructions Recorded Confirmed Type Calcium Carb-Vit D 500Mg-200Un 1 tab PO DAILY 01/05/14 03/08/20 History [Oscal 500+D] allopurinoL [Zyloprim] 100 mg PO DAILY 01/05/14 03/08/20 History amLODIPine BESYLATE [Norvasc] 5 mg PO DAILY 01/05/14 03/08/20 History atenoloL [Tenormin] 50 mg PO BID 01/05/14 03/08/20 History Levothyroxine Sodium [Synthroid] 12.5 mcg PO DAILY 03/16/14 03/08/20 History Zolpidem [Ambien] 5 mg PO HS PRN 03/16/14 03/08/20 History metFORMIN HCL [Glucophage] 500 mg PO DAILY 11/12/17 03/08/20 History Potassium Chloride 10 meq PO DAILY 07/21/19 03/08/20 History rOPINIRole HCL [Requip Xl] 2 mg PO BID 07/21/19 03/08/20 History HYDROcodone/APAP 10-325MG [Concepcion 1 tab PO Q8H PRN 11/24/19 03/08/20 History 10-325] Ferrous Sulfate [Iron (65 MG 325 mg PO DAILY #30 tab 11/27/19 03/08/20 Rx Elemental)] FLUoxetine HCL [PROzac] 10 mg PO DAILY 03/08/20 03/08/20 History FLUoxetine HCL [PROzac] 20 mg PO DAILY 03/08/20 03/08/20 History Montelukast Sodium [Singulair] 10 mg PO HS 03/08/20 03/08/20 History Omeprazole [PriLOSEC] 40 mg PO DAILY 03/08/20 03/08/20 History traMADol HCL 50 mg PO TID PRN 03/08/20 03/08/20 History Apixaban [Eliquis Starter Pack 0 mg PO DIRECTED 30 Days #1 pack 03/09/20 Rx (for VTE)] Allergies Allergy/AdvReac Type Severity Reaction Status Date / Time adhesive Allergy red skin, Verified 03/08/20 21:10 blisters cefaclor [From Ceclor] Allergy Rash/Hives Verified 03/08/20 21:10 ciprofloxacin [From Cipro] Allergy Rash/Hives Verified 03/08/20 21:10 ciprofloxacin HCl Allergy Rash/Hives Verified 03/08/20 21:10 [From Cipro] hydromorphone HCl Allergy Anaphylaxis Verified 03/08/20 21:10 [From Dilaudid] Penicillins Allergy Rash/Hives Verified 03/08/20 21:10 sulfamethoxazole AdvReac Abdominal Verified 03/08/20 21:10 [From Bactrim] Pain trimethoprim [From Bactrim] AdvReac Abdominal Verified 03/08/20 21:10 Pain Physical Exam Vitals: Vital Signs Temp Pulse Pulse Resp BP BP BP 03/09/20 04:00 98.5 F 97 18 03/09/20 00:00 98.0 F 104 H 18 03/08/20 23:00 98.0 F 101 H 22 135/68 03/08/20 21:37 98.2 F 104 H 16 03/08/20 21:34 105 H 18 140/97 03/08/20 19:00 104 H 16 118/88 03/08/20 18:48 120/81 128/100 03/08/20 18:31 105 H 18 132/90 03/08/20 17:26 98.1 F 111 H 22 149/96 BP Pulse Ox 03/09/20 04:00 157/89 99 03/09/20 00:00 150/83 99 03/08/20 23:00 98 03/08/20 21:37 150/83 99 03/08/20 21:34 97 03/08/20 19:00 03/08/20 18:48 130/83 03/08/20 18:31 03/08/20 17:26 95 Intake and Output 03/08/20 03/09/20 03/09/20 22:59 06:59 14:59 Intake Total 100.095 Output Total 180 Balance -79.905 Intake: Intake, IV Titration 100.095 Amount Heparin Sod,Pork in 0.45% 100.095 NaCl 25,000 unit In 0.45 % NaCl 1 250ml.bag @ 18 UNITS/KG/HR 11.594 mls/hr IV .[id number] [facility] Rx#: [id number] Output: Urine 180 Other: Voiding Method Toilet # Voids 2 Weight 64.41 kg 62.8 kg Results CBC & Chem 7: 03/08/20 18:29 03/09/20 06:06 Labs: Abnormal Lab Results - Last 24 Hours (Table) 03/08/20 03/08/20 03/08/20 Range/Units 18:20 18:29 18:29 RDW 16.0 H (11.5-15.5) % Plt Count 144 L (150-450) k/uL Lymphocytes # (Manual) 0.53 L (1.0-4.8) k/uL Metamyelocytes # (Man) 0.23 H (0) k/uL Myelocytes # (Manual) 0.08 H (0) k/uL APTT 16.6 L (22.0-30.0) sec D-Dimer 1.50 H (<0.60) mg/L FEU Sodium (137-145) mmol/L Chloride (98-107) mmol/L Carbon Dioxide (22-30) mmol/L Glucose (74-99) mg/dL POC Glucose (mg/dL) (75-99) mg/dL Plasma Lactic Acid Luis (0.7-2.0) mmol/L Total Protein (6.3-8.2) g/dL Urine Appearance Cloudy H (Clear) Urine Glucose (UA) 1+ H (Negative) Urine Blood Trace H (Negative) Ur Leukocyte Esterase Large H (Negative) Urine RBC 6 H (0-5) /hpf Urine WBC 14 H (0-5) /hpf Urine Bacteria Occasional H (None) /hpf Urine Mucus Few H (None) /hpf 03/08/20 03/08/20 03/08/20 Range/Units 18:29 18:29 18:36 RDW (11.5-15.5) % Plt Count (150-450) k/uL Lymphocytes # (Manual) (1.0-4.8) k/uL Metamyelocytes # (Man) (0) k/uL Myelocytes # (Manual) (0) k/uL APTT (22.0-30.0) sec D-Dimer (<0.60) mg/L FEU Sodium 136 L (137-145) mmol/L Chloride (98-107) mmol/L Carbon Dioxide 18 L (22-30) mmol/L Glucose 130 H (74-99) mg/dL POC Glucose (mg/dL) 126 H (75-99) mg/dL Plasma Lactic Acid Luis 3.1 H* (0.7-2.0) mmol/L Total Protein (6.3-8.2) g/dL Urine Appearance (Clear) Urine Glucose (UA) (Negative) Urine Blood (Negative) Ur Leukocyte Esterase (Negative) Urine RBC (0-5) /hpf Urine WBC (0-5) /hpf Urine Bacteria (None) /hpf Urine Mucus (None) /hpf 03/09/20 03/09/20 03/09/20 Range/Units 03:26 06:05 06:06 RDW (11.5-15.5) % Plt Count (150-450) k/uL Lymphocytes # (Manual) (1.0-4.8) k/uL Metamyelocytes # (Man) (0) k/uL Myelocytes # (Manual) (0) k/uL APTT 181.3 H* (22.0-30.0) sec D-Dimer (<0.60) mg/L FEU Sodium (137-145) mmol/L Chloride 109 H (98-107) mmol/L Carbon Dioxide (22-30) mmol/L Glucose 146 H (74-99) mg/dL POC Glucose (mg/dL) 163 H (75-99) mg/dL Plasma Lactic Acid Luis (0.7-2.0) mmol/L Total Protein 5.9 L (6.3-8.2) g/dL Urine Appearance (Clear) Urine Glucose (UA) (Negative) Urine Blood (Negative) Ur Leukocyte Esterase (Negative) Urine RBC (0-5) /hpf Urine WBC (0-5) /hpf Urine Bacteria (None) /hpf Urine Mucus (None) /hpf Microbiology - Last 24 Hours (Table) 03/08/20 18:20 Urine Culture - Preliminary Urine,Voided Thrombosis Risk Factor Assmnt - Choose All That Apply Any of the Below Risk Factors Present?: Yes Each Factor Represents 1 point: Obesity (BMI >25), Varicose veins Other Risk Factors: Yes Each Risk Factor Represents 3 Points: Age 75 years or older, Family history of DVT/PE, History of DVT/PE Thrombosis Risk Factor Assessment Total Risk Factor Score: 11 Thrombosis Risk Factor Assessment Level: High Risk
[2020-03-09 12:01] LABS: Glucose,Whole Blood 144 mg/dL (75-99)
[2020-03-09] MEDS: INSULIN ASPART (NovoLOG) 100 UNIT/ML VIAL SQ SCH ×3 (12:16→21:09)
[2020-03-09 12:54] VITALS: BMI 25.3
--- NOTE | 2020-03-09 14:34 | P.CNPUL ---
History of Present Illness Consult date: 03/09/20 Requesting physician: Carlos Enrique Farooq Reason for consult: pulmonary embolism Chief complaint: Lightheadedness, weakness History of present illness: This is a 80-year-old female with history of multiple medical problems including remote history of non-Hodgkin's lymphoma diagnosed and treated back in the 90s. History of hypertension. Dyslipidemia, hypothyroidism, chronic low back pain, degenerative joint disease and previous right knee arthroplasty. Patient presented to the hospital yesterday mostly with symptoms of generalized weakness, started about 2 days ago, she felt also lightheaded and a bit dizzy, no significant shortness of breath, no cough, no chest pain, no wheezing. Patient also describes some tingling in the upper extremities. She had chronic intermittent swelling in the left foot, patient is an active, she has mostly a sedentary lifestyle, no recent long travel. No history of cancer except for her previous lymphoma, she does have however a strong family history of pulmonary embolism and deep vein thrombosis. Patient was evaluated in the ER, and CT angiogram of the chest clearly showed evidence of right lower lobe pulmonary embolism. Venous Doppler showed evidence of acute and chronic deep vein thromboses in the left leg. Considering the findings, patient was admitted, and this consult was initiated. Patient is now on heparin. Review of Systems EVIEW OF SYSTEMS Constitutional: No fever, no chills, no night sweats. Describes generalized weakness, no weight loss. EENT: No headache. No blurred vision or double vision, denies sore throat. Lungs: No shortness of breath, no cough, no wheezing, no chest pain Cardiovascular: No chest pain, denies palpitations. Denies orthopnea or PND. GI: Denies nausea vomiting abdominal pain. Genitourinary: Denies dysuria frequency urgency or hematuria. Musculoskeletal: Mostly symptoms of osteoarthritis, previous arthroplasty right knee. Integumentary: Denies pruritus or rashes. Neurologic: Denies headache or blurred vision. Psychiatric: Denies depression or anxiety. Endocrine: Denies any heat or cold intolerance. Denies any polyuria polydipsia. Past Medical History Past Medical History: Cancer, CVA/TIA, Diabetes Mellitus, GERD/Reflux, Hyperlipidemia, Hypertension, Osteoarthritis (OA), Syncope Additional Past Medical History / Comment(s): TIA X2, SYNCOPE in 2013, VARICOSE VEINS, GOUT, LYMPHOMA (HX OF CHEMO & RADIATION 1977,1982 & 1993) History of Any Multi-Drug Resistant Organisms: None Reported Past Surgical History: Back Surgery, Cholecystectomy, Hysterectomy, Joint Replacement, Orthopedic Surgery Additional Past Surgical History / Comment(s): RIGHT HIP REPAIR, LEFT KNEE REPLACEMENT, HAND & FOOT SURG (pins inserted in both thumbs), BREAST & AXILLARY BX, TUMOR IN THROAT REMOVED., CERVICAL FUSION, 02-07- LUMBAR LAMINECTOMY,DECOMPRESSION-FUSION L1-L2., right knee replaced 07-31-19 Past Anesthesia/Blood Transfusion Reactions: No Reported Reaction Additional Past Anesthesia/Blood Transfusion Reaction / Comment(s): CLAUSTROPHOBIA Past Psychological History: Anxiety, Depression Additional Psychological History / Comment(s): (end of 2019) Smoking Status: Never smoker Past Alcohol Use History: None Reported Additional Past Alcohol Use History / Comment(s): Patient is a lifelong nonsmoker, no illicit drug use, no marijuana use, no alcohol abuse. She drinks wine occasionally. Past Drug Use History: None Reported - Past Family History Father Family Medical History: Deep Vein Thrombosis (DVT) Additional Family Medical History / Comment(s): Father at age 32 from pulmonary embolism. Mother Family Medical History: Cancer, Diabetes Mellitus Additional Family Medical History / Comment(s): Mother in her late 80s, had breast cancer and also had dementia,heart related issues Brother(s) Family Medical History: Cancer, Deep Vein Thrombosis (DVT) Additional Family Medical History / Comment(s): Patient had 2 brothers that have passed one from myocardial infarction and one from pulmonary embolism. 2 brothers are alive and one has lung cancer, one brother is alive with a brain aneurysm and CVA. Medications and Allergies Home Medications Medication Instructions Recorded Confirmed Type Calcium Carb-Vit D 500Mg-200Un 1 tab PO DAILY 01/05/14 03/08/20 History [Oscal 500+D] allopurinoL [Zyloprim] 100 mg PO DAILY 01/05/14 03/08/20 History amLODIPine BESYLATE [Norvasc] 5 mg PO DAILY 01/05/14 03/08/20 History atenoloL [Tenormin] 50 mg PO BID 01/05/14 03/08/20 History Levothyroxine Sodium [Synthroid] 12.5 mcg PO DAILY 03/16/14 03/08/20 History Zolpidem [Ambien] 5 mg PO HS PRN 03/16/14 03/08/20 History metFORMIN HCL [Glucophage] 500 mg PO DAILY 11/12/17 03/08/20 History Potassium Chloride 10 meq PO DAILY 07/21/19 03/08/20 History rOPINIRole HCL [Requip Xl] 2 mg PO BID 07/21/19 03/08/20 History HYDROcodone/APAP 10-325MG [Buckner 1 tab PO Q8H PRN 11/24/19 03/08/20 History 10-325] Ferrous Sulfate [Iron (65 MG 325 mg PO DAILY #30 tab 11/27/19 03/08/20 Rx Elemental)] FLUoxetine HCL [PROzac] 10 mg PO DAILY 03/08/20 03/08/20 History FLUoxetine HCL [PROzac] 20 mg PO DAILY 03/08/20 03/08/20 History Montelukast Sodium [Singulair] 10 mg PO HS 03/08/20 03/08/20 History Omeprazole [PriLOSEC] 40 mg PO DAILY 03/08/20 03/08/20 History traMADol HCL 50 mg PO TID PRN 03/08/20 03/08/20 History Apixaban [Eliquis Starter Pack 0 mg PO DIRECTED 30 Days #1 pack 03/09/20 Rx (for VTE)] Allergies Allergy/AdvReac Type Severity Reaction Status Date / Time adhesive Allergy red skin, Verified 03/08/20 21:10 blisters cefaclor [From Ceclor] Allergy Rash/Hives Verified 03/08/20 21:10 ciprofloxacin [From Cipro] Allergy Rash/Hives Verified 03/08/20 21:10 ciprofloxacin HCl Allergy Rash/Hives Verified 03/08/20 21:10 [From Cipro] hydromorphone HCl Allergy Anaphylaxis Verified 03/08/20 21:10 [From Dilaudid] Penicillins Allergy Rash/Hives Verified 03/08/20 21:10 sulfamethoxazole AdvReac Abdominal Verified 03/08/20 21:10 [From Bactrim] Pain trimethoprim [From Bactrim] AdvReac Abdominal Verified 03/08/20 21:10 Pain Physical Exam Vitals: Vital Signs Temp Pulse Pulse Resp BP BP BP 03/09/20 12:00 83 18 137/68 03/09/20 08:00 98.0 F 111 H 18 136/74 03/09/20 04:00 98.5 F 97 18 03/09/20 00:00 98.0 F 104 H 18 03/08/20 23:00 98.0 F 101 H 22 135/68 03/08/20 21:37 98.2 F 104 H 16 03/08/20 21:34 105 H 18 140/97 03/08/20 19:00 104 H 16 118/88 03/08/20 18:48 120/81 128/100 03/08/20 18:31 105 H 18 132/90 03/08/20 17:26 98.1 F 111 H 22 149/96 BP Pulse Ox 03/09/20 12:00 97 03/09/20 08:00 98 03/09/20 04:00 157/89 99 03/09/20 00:00 150/83 99 03/08/20 23:00 98 03/08/20 21:37 150/83 99 03/08/20 21:34 97 03/08/20 19:00 03/08/20 18:48 130/83 03/08/20 18:31 03/08/20 17:26 95 Intake and Output 03/08/20 03/09/20 03/09/20 22:59 06:59 14:59 Intake Total 100.095 515.05 Output Total 180 Balance -79.905 515.05 Intake: Intake, IV Titration 100.095 70.05 Amount Heparin Sod,Pork in 0.45% 100.095 70.05 NaCl 25,000 unit In 0.45 % NaCl 1 250ml.bag @ 18 UNITS/KG/HR 11.594 mls/hr IV .[id number] [facility] Rx#: [id number] Oral 445 Output: Urine 180 Other: Voiding Method Toilet Toilet # Voids 2 Weight 64.41 kg 62.8 kg 62.8 kg Physical Exam: Revealed 80-year-old female in no distress, extremely pleasant. Head: Atraumatic, normocephalic. HEENT:[Neck is supple.] [No neck masses.] [No thyromegaly.] [No JVD.] PERRLA, EOMI, no icterus. Chest: [Clear throughout, no crackles, no rhonchi, no wheezes.] Cardiac Exam: [Normal S1 and S2, no S3 gallop, no murmur.] Abdomen: [Soft, nontender, no megaly, no rebound, no guarding, normal bowel sounds.] Extremities: [No clubbing, no edema, no cyanosis.] No tenderness, negative Homans sign bilaterally. Neurological Exam: [No focal neurologic deficit.] Alert and oriented 3. Psychiatric: Normal mood affect and normal mental status examination. Musculoskeletal: No deformities noted limitation in range of motion, muscle strength and adequate bilaterally. Skin: No rashes. Results - Laboratory Findings CBC and BMP: 03/08/20 18:29 03/09/20 06:06 PT/INR, D-dimer PT 10.9 sec (9.0-12.0) 03/09/20 03:39 INR 1.1 (<1.2) 03/09/20 03:39 D-Dimer 1.50 mg/L FEU (<0.60) H 03/08/20 18:29 Abnormal lab findings: Abnormal Labs 03/08/20 03/08/20 03/08/20 18:20 18:29 18:29 RDW 16.0 H Plt Count 144 L Lymphocytes # (Manual) 0.53 L Metamyelocytes # (Man) 0.23 H Myelocytes # (Manual) 0.08 H APTT 16.6 L D-Dimer 1.50 H Sodium Chloride Carbon Dioxide Glucose POC Glucose (mg/dL) Plasma Lactic Acid Luis Total Protein Urine Appearance Cloudy H Urine Glucose (UA) 1+ H Urine Blood Trace H Ur Leukocyte Esterase Large H Urine RBC 6 H Urine WBC 14 H Urine Bacteria Occasional H Urine Mucus Few H 03/08/20 03/08/20 03/08/20 18:29 18:29 18:36 RDW Plt Count Lymphocytes # (Manual) Metamyelocytes # (Man) Myelocytes # (Manual) APTT D-Dimer Sodium 136 L Chloride Carbon Dioxide 18 L Glucose 130 H POC Glucose (mg/dL) 126 H Plasma Lactic Acid Luis 3.1 H* Total Protein Urine Appearance Urine Glucose (UA) Urine Blood Ur Leukocyte Esterase Urine RBC Urine WBC Urine Bacteria Urine Mucus 03/09/20 03/09/20 03/09/20 03:26 06:05 06:06 RDW Plt Count Lymphocytes # (Manual) Metamyelocytes # (Man) Myelocytes # (Manual) APTT 181.3 H* D-Dimer Sodium Chloride 109 H Carbon Dioxide Glucose 146 H POC Glucose (mg/dL) 163 H Plasma Lactic Acid Luis Total Protein 5.9 L Urine Appearance Urine Glucose (UA) Urine Blood Ur Leukocyte Esterase Urine RBC Urine WBC Urine Bacteria Urine Mucus 03/09/20 03/09/20 11:59 12:22 RDW Plt Count Lymphocytes # (Manual) Metamyelocytes # (Man) Myelocytes # (Manual) APTT 140.3 H* D-Dimer Sodium Chloride Carbon Dioxide Glucose POC Glucose (mg/dL) 144 H Plasma Lactic Acid Luis Total Protein Urine Appearance Urine Glucose (UA) Urine Blood Ur Leukocyte Esterase Urine RBC Urine WBC Urine Bacteria Urine Mucus - Diagnostic Findings CT scan - chest: image reviewed (CT of the chest was reviewed as noted in HPI.) Assessment and Plan Assessment: Impression: Acute non-provoked right lower lobe pulmonary embolism 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 History of non-Hodgkin lymphoma, in remission, treated in 1993. 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 Type 2 diabetes. History of GI bleed secondary to colon ulcer in November of 2019, Degenerative joint disease and chronic low back pain. Benign essential hypertension. Hypothyroidism. History of TIA. Recommendation: Agree with the present treatment plan including heparin. Transition patient tomorrow to Eliquis or Xarelto and consider discharge planning home on oral anticoagulation therapy, would recommend lifetime treatment unless the patient develops any complications related to oral anti- granulation noted. Resume home meds. Consider discharge planning in the next 24-48 hours. We'll continue to follow. Time with Patient: Greater than 30
--- NOTE | 2020-03-09 14:59 | ECHOF ---
Referral Reason:PE, right strain MEASUREMENTS -------- HEIGHT: 157.5 cm WEIGHT: 62.6 kg BP: RVIDd: 2.0 cm (< 3.3) IVSd: 1.2 cm (0.6 - 1.1) LVIDd: 3.8 cm (3.9 - 5.3) LVPWd: 1.0 cm (0.6 - 1.1) IVSs: 1.4 cm LVIDs: 1.9 cm LVPWs: 1.5 cm LAESV Index (A-L): 21.09 ml/m Ao Diam: 3.0 cm (2.0 - 3.7) AV Cusp: 0.9 cm (1.5 - 2.6) LA Diam: 3.1 cm (2.7 - 3.8) MV E Av: 1.40 m/s MV DecT: 95 ms MV A Av: 0.48 m/s MV E/A Ratio: 2.89 AV maxP.78 mmHg AV meanP.65 mmHg RAP: 5.00 mmHg RVSP: 17.44 mmHg FINDINGS -------- Sinus rhythm. Resting tachycardia (HR>100bpm). This was a technically adequate study. The left ventricular size is normal. There is mild concentric left ventricular hypertrophy. Overa ll left ventricular systolic function is normal with, an EF between 55 - 60 %. The diastolic fillin g pattern is normal for the age of the patient 27.93. Normal LAP Grade 1 Diastolic Dysfunction. The right ventricle is normal in size. Normal LA size by volume 22+/-6 ml/m2. The right atrial size is normal. Unable to visualize the septum. There is moderate aortic valve sclerosis. There is mild aortic stenosis present. Peak/mean gradie nt across the Aortic Valve is 26.78mmHg / 14.65mmHg. The mitral valve leaflets are mildly thickened. Mild mitral regurgitation is present. The tricuspid valve appears structurally normal. Trace tricuspid regurgitation present. Right boris tricular systolic pressure is normal at < 35 mmHg. The pulmonic valve was not well visualized. There is no pulmonic regurgitation present. The aortic root size is normal. Normal inferior vena cava with normal inspiratory collapse consistent with estimated right atrial pre ssure of 5 mmHg. There is no pericardial effusion. CONCLUSIONS -------- 1. There is mild concentric left ventricular hypertrophy. 2. Overall left ventricular systolic function is normal with, an EF between 55 - 60 %. 3. Normal LAP Grade 1 Diastolic Dysfunction. 4. Normal LA size by volume 22+/-6 ml/m2. 5. There is moderate aortic valve sclerosis. 6. There is mild aortic stenosis present. 7. Peak/mean gradient across the Aortic Valve is 26.78mmHg / 14.65mmHg. 8. The mitral valve leaflets are mildly thickened. 9. Mild mitral regurgitation is present. 10. Trace tricuspid regurgitation present. WOMEN SPECIALIST: Cathy Owen RDCS
[2020-03-09] MEDS: traMADol 50 MG TAB PO PRN (16:29)
[2020-03-09 17:04] LABS: Glucose,Whole Blood 209 mg/dL (75-99)
[2020-03-09] MEDS: SODIUM CHLORIDE 0.9% 1,000 ML IV SCH (18:33)
[2020-03-09] MEDS: HEPARIN SOD,PORK IN 0.45% NACL 25,000 UNIT in 0.45% NACL 1 250ML.BAG IV SCH (18:42)
[2020-03-09 19:56] LABS: Glucose,Whole Blood 226 mg/dL (75-99)
[2020-03-09] MEDS ORDERED: MONTELUKAST 10 MG TAB PO SCH (21:00)
[2020-03-10 00:22] VITALS: RESP 16
[2020-03-10 06:06] LABS: Partial Thromboplastin Time 70.6 sec (22.0-30.0); Prothrombin Time 10.1 sec (9.0-12.0)
[2020-03-10 06:13] LABS: Glucose,Whole Blood 185 mg/dL (75-99)
[2020-03-10] MEDS: LEVOTHYROXINE 25 MCG TAB PO SCH (06:50)
[2020-03-10] MEDS: INSULIN ASPART (NovoLOG) 100 UNIT/ML VIAL SQ SCH (06:51)
[2020-03-10] MEDS: PANTOPRAZOLE 40 MG TABLET PO SCH (06:51)
[2020-03-10] MEDS: FLUoxetine HCL 20 MG CAP PO SCH (08:07)
[2020-03-10] MEDS: CALCIUM CARB-VIT D 500MG-200UN 1 EACH TAB PO SCH (08:07)
[2020-03-10] MEDS: amLODIPine 5 MG TAB PO SCH (08:07)
[2020-03-10] MEDS: FERROUS SULFATE 325 MG TAB PO SCH (08:07)
[2020-03-10] MEDS: atenoloL 50 MG TAB PO SCH (08:07)
[2020-03-10] MEDS: POTASSIUM CHLORIDE ER 10 MEQ TAB.ER.PRT PO SCH (08:07)
[2020-03-10] MEDS: allopurinoL 100 MG TAB PO SCH (08:07)
[2020-03-10] MEDS: FLUoxetine HCL 10 MG CAP PO SCH (08:08)
[2020-03-10 08:15] VITALS: TEMP 98.2
--- NOTE | 2020-03-10 08:28 | P.DS ---
Providers Date of admission: 03/08/20 20:48 Expected date of discharge: 03/10/20 Attending physician: Carlos Enrique Farooq Consults: 03/08/20 20:48 Consult Physician Urgent Consulting Provider: Kayla Eric Consult Reason/Comments: acute pe Do you want consulting provider notified?: Yes Primary care physician: [facility] Course: HISTORY OF PRESENT ILLNESS This is a 80-year-old female one of Dr. Rocha patient with past medical history of type 2 diabetes, non-Hodgkin's lymphoma [place] [address] Monaco and follows with Dr. Aranda status post chemotherapy and radiation therapy, CVA, hypertension, hyperlipidemia, hypertension, hypothyroidism, restless leg syndrome, recurrent depression, and osteoarthritis who has been treated for lower back pain post multiple lower back surgery and epidural injection with pain management at [facility]. Patient's last hospitalization was in November of this year which time she presented with acute GI bleed and acute blood loss anemia. EGD with Dr. Maldonado found minimal antral gastritis and small hiatal hernia. Subsequently, she underwent colonoscopy with Dr. Villatoro that revealed area of ulceration, nonbleeding, in the distal transverse colon which was biopsied. Mild left colonic diverticulosis. Low-grade internal hemorrhoids. Patient was cleared for diet advanced to a low fiber and cleared for discharge. We advised to hold Plavix for 1 week which she was on for CVA. Noted the patient is not currently on Plavix. Patient presented yesterday to [facility] ER with generalized weakness that started yesterday morning. She complains of lightheadedness and dizziness a little shortness of breath. She denied having any chest pain. She has not had any recent episodes of chest pain. She also had some tingling of the upper extremities. She did not have any loss of consciousness. No nausea or vomiting. No blurred vision. No headache. She does state that she had a l small amount of left foot and ankle swelling but not significant. She denies any recent travel. No recent diagnosis of cancer. No recent surgeries. She denies any history of atrial fibrillation. Patient was found to be afebrile, heart rate 111, blood pressure 149/96, pulse ox 95% on room air. Orthostatics were negative. D-dimer was elevated at 1.5. Troponin -0.012. Sodium 136, potassium 3.9, chloride 107, CO2 18, BUN 15 and creatinine 0.6. Blood sugar 130. Urinalysis showed leukoesterase large, RBCs 6, wbc's 14. Urine culture is in process. WBC 7.5, hemoglobin 13.2, platelet count 144. EKG was sinus bradycardia with PACs and right bundle branch block. Chest x-ray showed no active cardiac pulmonary disease and normal heart. CT of the chest showed a small thrombus in the right lower lobe pulmonary artery. No evidence of right heart strain. Patient was started on a heparin drip and placed on the cardiac stepdown unit, consult with pulmonary medicine, echocardiogram ordered. 03/10: Patient has been seen by Dr. Rosario and he is in agreement to starting oral anticoagulation. Patient is currently on heparin drip which will be discontinued as planned. Prescription was sent yesterday to her pharmacy for eliquis. Echocardiogram reveals EF of 55-60% with mild aortic stenosis, mild mitral regurgitation, trace tricuspid regurgitation. Patient has been afebrile, heart rate 93, blood pressure 132/61, pulse ox 95% on room air. Patient denies any new complaints. No significant chest pain or shortness of breath. Patient will be discharged home today in stable condition. Discharge Diagnoses: 1. Right lower lobe pulmonary embolism. 2. Diabetes mellitus type 2. Metformin on hold. Patient will be on NovoLog scale before meals and at bedtime. 3. Non-Hodgkin's lymphoma [place] [address] Monaco and follows with Dr. Aranda, in remission. 4. History of TIA with no deficits. 5. History of GI bleed secondary to colon ulcer in November 2019 without recurrence. 6. Degenerative disc disease and chronic back pain. 7. Hypertension. 8. Hypothyroidism. 9. Seasonal ALLERGIES. 10. Recurrent depression. 11. Chronic gout. 12. Hyperlipidemia. 13. Restless leg syndrome. Discharge plan: home Impression and plan of care have been directed as dictated by the signing physician. Karen Quintero nurse practitioner acting as scribe for signing physician. Patient Condition at Discharge: Good Plan - Discharge Summary Discharge Rx Participant: No New Discharge Prescriptions: New Apixaban [Eliquis Starter Pack (for VTE)] 0 mg PO DIRECTED 30 Days #1 pack No Action allopurinoL [Zyloprim] 100 mg PO DAILY amLODIPine BESYLATE [Norvasc] 5 mg PO DAILY atenoloL [Tenormin] 50 mg PO BID Calcium Carb-Vit D 500Mg-200Un [Oscal 500+D] 1 tab PO DAILY Zolpidem [Ambien] 5 mg PO HS PRN PRN Reason: SLEEP Levothyroxine Sodium [Synthroid] 12.5 mcg PO DAILY metFORMIN HCL [Glucophage] 500 mg PO DAILY rOPINIRole HCL [Requip Xl] 2 mg PO BID Potassium Chloride 10 meq PO DAILY HYDROcodone/APAP 10-325MG [Gardner 10-325] 1 tab PO Q8H PRN PRN Reason: Pain Ferrous Sulfate [Iron (65 MG Elemental)] 325 mg PO DAILY #30 tab FLUoxetine HCL [PROzac] 10 mg PO DAILY FLUoxetine HCL [PROzac] 20 mg PO DAILY Omeprazole [PriLOSEC] 40 mg PO DAILY Montelukast Sodium [Singulair] 10 mg PO HS traMADol HCL 50 mg PO TID PRN PRN Reason: Pain Discharge Medication List Calcium Carb-Vit D 500Mg-200Un [Oscal 500+D] 1 tab PO DAILY 01/05/14 [History] allopurinoL [Zyloprim] 100 mg PO DAILY 01/05/14 [History] amLODIPine BESYLATE [Norvasc] 5 mg PO DAILY 01/05/14 [History] atenoloL [Tenormin] 50 mg PO BID 01/05/14 [History] Levothyroxine Sodium [Synthroid] 12.5 mcg PO DAILY 03/16/14 [History] Zolpidem [Ambien] 5 mg PO HS PRN 03/16/14 [History] metFORMIN HCL [Glucophage] 500 mg PO DAILY 11/12/17 [History] Potassium Chloride 10 meq PO DAILY 07/21/19 [History] rOPINIRole HCL [Requip Xl] 2 mg PO BID 07/21/19 [History] HYDROcodone/APAP 10-325MG [Gardner 10-325] 1 tab PO Q8H PRN 11/24/19 [History] Ferrous Sulfate [Iron (65 MG Elemental)] 325 mg PO DAILY #30 tab 11/27/19 [Rx] FLUoxetine HCL [PROzac] 10 mg PO DAILY 03/08/20 [History] FLUoxetine HCL [PROzac] 20 mg PO DAILY 03/08/20 [History] Montelukast Sodium [Singulair] 10 mg PO HS 03/08/20 [History] Omeprazole [PriLOSEC] 40 mg PO DAILY 03/08/20 [History] traMADol HCL 50 mg PO TID PRN 03/08/20 [History] Apixaban [Eliquis Starter Pack (for VTE)] 0 mg PO DIRECTED 30 Days #1 pack 03/09/20 [Rx] Follow up Appointment(s)/Referral(s): Kayla Eric MD [STAFF PHYSICIAN] - 1 Week Avlarez Rocha DO [Primary Care Provider] - 1 Week Dahlia Aranda MD [STAFF PHYSICIAN] - 1 Week Discharge Disposition: HOME SELF-CARE
[2020-03-10] MEDS ORDERED: APIXABAN 5 MG TAB PO SCH (09:00)
[2020-03-10] MEDS: traMADol 50 MG TAB PO PRN (10:30)
[2020-03-10 11:53] LABS: Glucose,Whole Blood 132 mg/dL (75-99)
[2020-03-10 12:38] VITALS: BP 132/72; PULSE 80
--- NOTE | 2020-03-10 13:16 | P.PN ---
Subjective Progress Note Date: 03/10/20 Principal diagnosis: Acute pulmonary embolism This is a 80-year-old female with history of multiple medical problems including remote history of non-Hodgkin's lymphoma diagnosed and treated back in the 90s. History of hypertension. Dyslipidemia, hypothyroidism, chronic low back pain, degenerative joint disease and previous right knee arthroplasty. Patient presented to the hospital yesterday mostly with symptoms of generalized weakness, started about 2 days ago, she felt also lightheaded and a bit dizzy, no significant shortness of breath, no cough, no chest pain, no wheezing. Patient also describes some tingling in the upper extremities. She had chronic intermittent swelling in the left foot, patient is an active, she has mostly a sedentary lifestyle, no recent long travel. No history of cancer except for her previous lymphoma, she does have however a strong family history of pulmonary embolism and deep vein thrombosis. Patient was evaluated in the ER, and CT angiogram of the chest clearly showed evidence of right lower lobe pulmonary embolism. Venous Doppler showed evidence of acute and chronic deep vein thromboses in the left leg. Considering the findings, patient was admitted, and this consult was initiated. Patient is now on heparin. Reevaluated today on 03/10/20, patient is doing well, asymptomatic, discharge planning is in progress no cough no wheezing no chest pain. And no shortness of breath. Objective - Vital Signs Vital signs: Vital Signs Temp 98.2 F 03/10/20 12:38 Pulse 80 03/10/20 12:38 Resp 16 03/10/20 12:38 BP 132/72 03/10/20 12:38 Pulse Ox 98 03/10/20 12:38 Intake & Output 03/09/20 03/10/20 03/10/20 18:59 06:59 18:59 Intake Total 914.987 2999.294 240 Balance 607.791 5991.294 240 Weight 62.8 kg 62.1 kg Intake: Intake, IV Titration 97.359 894.294 Amount Heparin Sod,Pork in 0.45% 97.359 94.294 NaCl 25,000 unit In 0.45 % NaCl 1 250ml.bag @ 18 UNITS/KG/HR 11.594 mls/hr IV .[id number] SANTOS Rx#: [id number] Sodium Chloride 0.9% 1, 800 000 ml @ 50 mls/hr IV . Q20H SANTOS Rx#:[id number] Oral 685 [id number] 240 Other: Voiding Method Toilet Toilet Toilet # Voids 3 1 1 - Exam Physical Exam: Revealed 80-year-old female in no distress, extremely pleasant. Head: Atraumatic, normocephalic. HEENT:[Neck is supple.] [No neck masses.] [No thyromegaly.] [No JVD.] PERRLA, EOMI, no icterus. Chest: [Clear throughout, no crackles, no rhonchi, no wheezes.] Cardiac Exam: [Normal S1 and S2, no S3 gallop, no murmur.] Abdomen: [Soft, nontender, no megaly, no rebound, no guarding, normal bowel sounds.] Extremities: [No clubbing, no edema, no cyanosis.] No tenderness, negative Homans sign bilaterally. Neurological Exam: [No focal neurologic deficit.] Alert and oriented 3. Psychiatric: Normal mood affect and normal mental status examination. Musculoskeletal: No deformities noted limitation in range of motion, muscle strength and adequate bilaterally. Skin: No rashes. - Labs CBC & Chem 7: 03/08/20 18:29 03/09/20 06:06 Labs: Abnormal Lab Results - Last 24 Hours (Table) 03/09/20 03/09/20 03/09/20 Range/Units 12:22 17:03 19:55 APTT 140.3 H* (22.0-30.0) sec POC Glucose (mg/dL) 209 H 226 H (75-99) mg/dL 03/09/20 03/10/20 03/10/20 Range/Units 20:52 05:27 06:12 APTT 61.5 H 70.6 H (22.0-30.0) sec POC Glucose (mg/dL) 185 H (75-99) mg/dL 03/10/20 Range/Units 11:52 APTT (22.0-30.0) sec POC Glucose (mg/dL) 132 H (75-99) mg/dL Microbiology - Last 24 Hours (Table) 03/08/20 18:20 Urine Culture - Final Urine,Voided 03/08/20 20:11 Blood Culture - Preliminary Blood No Growth after 24 hours Assessment and Plan Assessment: Impression: Acute non-provoked right lower lobe pulmonary embolism 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 History of non-Hodgkin lymphoma, in remission, treated in 1993. 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 Type 2 diabetes. History of GI bleed secondary to colon ulcer in November of 2019, Degenerative joint disease and chronic low back pain. Benign essential hypertension. Hypothyroidism. History of TIA. Recommendation: Agree with the present treatment plan Agree with discharge planning on oral anti-coagulation therapy, recommend lifetime treatment Follow-up on outpatient basis. Time with Patient: Less than 30
--- NOTE | 2020-03-10 13:16 | P.PN ---
Subjective Progress Note Date: 03/10/20 Principal diagnosis: Pulmonary embolism This is a 80-year-old female with history of multiple medical problems including remote history of non-Hodgkin's lymphoma diagnosed and treated back in the . History of hypertension. Dyslipidemia, hypothyroidism, chronic low back pain, degenerative joint disease and previous right knee arthroplasty. Patient presented to the hospital yesterday mostly with symptoms of generalized weakness, started about 2 days ago, she felt also lightheaded and a bit dizzy, no significant shortness of breath, no cough, no chest pain, no wheezing. Patient also describes some tingling in the upper extremities. She had chronic intermittent swelling in the left foot, patient is an active, she has mostly a sedentary lifestyle, no recent long travel. No history of cancer except for her previous lymphoma, she does have however a strong family history of pulmonary embolism and deep vein thrombosis. Patient was evaluated in the ER, and CT tarik ogram of the chest clearly showed evidence of right lower lobe pulmonary embolism. Venous Doppler showed evidence of acute and chronic deep vein thromboses in the left leg. Considering the findings, patient was admitted, and this consult was initiated. Patient is now on heparin. The patient is seen today 03/10/2020 in follow-up on the selective care unit. She is awake and alert in no acute distress. Resting quite comfortably in bed. Denies any worsening shortness of breath. No hemoptysis. Maintaining O2 saturation in the mid 90s on room air. She's afebrile. Hemodynamically stable. Blood cultures reveal no growth. Blood glucose 132. Objective - Vital Signs Vital signs: Vital Signs Temp 98.2 F 03/10/20 12:38 Pulse 80 03/10/20 12:38 Resp 16 03/10/20 12:38 BP 132/72 03/10/20 12:38 Pulse Ox 98 03/10/20 12:38 Intake & Output 03/09/20 03/10/20 03/10/20 18:59 06:59 18:59 Intake Total 153.975 8798.294 240 Balance 419.215 2206.294 240 Weight 62.8 kg 62.1 kg Intake: Intake, IV Titration 97.359 894.294 Amount Heparin Sod,Pork in 0.45% 97.359 94.294 NaCl 25,000 unit In 0.45 % NaCl 1 250ml.bag @ 18 UNITS/KG/HR 11.594 mls/hr IV .[id number] SANTOS Rx#: [id number] Sodium Chloride 0.9% 1, 800 000 ml @ 50 mls/hr IV . Q20H SANTOS Rx#:[id number] Oral 685 780 240 Other: Voiding Method Toilet Toilet Toilet # Voids 3 1 1 - Exam Physical Exam: Revealed 80-year-old female patient in no distress, extremely pleasant. On room air. Head: Atraumatic, normocephalic. HEENT:[Neck is supple.] [No neck masses.] [No thyromegaly.] [No JVD.] PERRLA, EOMI, no icterus. Chest: [Clear throughout, no crackles, no rhonchi, no wheezes.] Cardiac Exam: [Normal S1 and S2, no S3 gallop, no murmur.] Abdomen: [Soft, nontender, no megaly, no rebound, no guarding, normal bowel sounds.] Extremities: [No clubbing, no edema, no cyanosis.] No tenderness, negative Homans sign bilaterally. Neurological Exam: [No focal neurologic deficit.] Alert and oriented 3. Psychiatric: Normal mood affect and normal mental status examination. Musculoskeletal: No deformities noted limitation in range of motion, muscle strength and adequate bilaterally. Skin: No rashes. - Labs CBC & Chem 7: 03/08/20 18:29 03/09/20 06:06 Labs: Abnormal Lab Results - Last 24 Hours (Table) 03/09/20 03/09/20 03/09/20 Range/Units 12:22 17:03 19:55 APTT 140.3 H* (22.0-30.0) sec POC Glucose (mg/dL) 209 H 226 H (75-99) mg/dL 03/09/20 03/10/20 03/10/20 Range/Units 20:52 05:27 06:12 APTT 61.5 H 70.6 H (22.0-30.0) sec POC Glucose (mg/dL) 185 H (75-99) mg/dL 03/10/20 Range/Units 11:52 APTT (22.0-30.0) sec POC Glucose (mg/dL) 132 H (75-99) mg/dL Microbiology - Last 24 Hours (Table) 03/08/20 18:20 Urine Culture - Final Urine,Voided 03/08/20 20:11 Blood Culture - Preliminary Blood No Growth after 24 hours Assessment and Plan Assessment: Acute non-provoked right lower lobe pulmonary embolism Acute and chronic deep vein thromboses involving left lower extremity History of non-Hodgkin lymphoma, in remission, treated in 1993. 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 Type 2 diabetes. History of GI bleed secondary to colon ulcer in November of 2019, Degenerative joint disease and chronic low back pain. Benign essential hypertension. Hypothyroidism. History of TIA. Plan: The patient was seen and evaluated by Dr. Eric She is stable from the pulmonary standpoint Recommending lifelong anticoagulation Initiated on Eliquis Home once cleared medically I, the cosigning physician, performed a history & physical examination of the patient. Lungs sounds are clear. Maintaining good O2 saturations in the 90s on room air. I discussed the assessment and plan of care with my nurse practitioner, Aurelia Aguero. I attest to the above note as dictated by her.
== END 2020-03-10 15:27 | disposition home or self-care (01) | DRG 176 ==
LOC: EC 17:16 → 3SCARD 20:48
PROVIDERS: ADMIT Internal Medicine Geriatric Medicine; ATTEND Internal Medicine Geriatric Medicine
DX: I26.99 Other pulmonary embolism without acute cor pulmonale (principal); D68.51 Activated protein C resistance; F33.9 Major depressive disorder, recurrent, unspecified; I82.4Z2 Acute embolism and thrombosis of unspecified deep veins of left distal lower extremity; I11.9 Hypertensive heart disease without heart failure; E11.9 Type 2 diabetes mellitus without complications; E03.9 Hypothyroidism, unspecified; K57.30 Diverticulosis of large intestine without perforation or abscess without bleeding; K64.8 Other hemorrhoids; J30.2 Other seasonal allergic rhinitis; G25.81 Restless legs syndrome; K21.9 Gastro-esophageal reflux disease without esophagitis; I45.10 Unspecified right bundle-branch block; I49.1 Atrial premature depolarization; G89.29 Other chronic pain; E78.5 Hyperlipidemia, unspecified; M54.5 Low back pain; K44.9 Diaphragmatic hernia without obstruction or gangrene; M1A.9XX0 Chronic gout, unspecified, without tophus (tophi); I83.90 Asymptomatic varicose veins of unspecified lower extremity; M19.90 Unspecified osteoarthritis, unspecified site; Z79.890 Hormone replacement therapy; Z79.84 Long term (current) use of oral hypoglycemic drugs; Z79.899 Other long term (current) drug therapy; Z85.72 Personal history of non-Hodgkin lymphomas; Z86.73 Personal history of transient ischemic attack (TIA), and cerebral infarction without residual deficits; Z92.3 Personal history of irradiation; Z92.21 Personal history of antineoplastic chemotherapy; Z90.710 Acquired absence of both cervix and uterus; Z87.42 Personal history of other diseases of the female genital tract; Z98.890 Other specified postprocedural states; Z90.49 Acquired absence of other specified parts of digestive tract; Z87.19 Personal history of other diseases of the digestive system; Z96.653 Presence of artificial knee joint, bilateral; Z86.2 Personal history of diseases of the blood and blood-forming organs and certain disorders involving the immune mechanism; Z98.1 Arthrodesis status; Z88.1 Allergy status to other antibiotic agents; Z88.5 Allergy status to narcotic agent; Z88.0 Allergy status to penicillin; Z88.2 Allergy status to sulfonamides; Z91.048 Other nonmedicinal substance allergy status; Z83.2 Family history of diseases of the blood and blood-forming organs and certain disorders involving the immune mechanism; Z82.49 Family history of ischemic heart disease and other diseases of the circulatory system; Z80.1 Family history of malignant neoplasm of trachea, bronchus and lung; Z80.8 Family history of malignant neoplasm of other organs or systems; Z82.3 Family history of stroke; Z80.3 Family history of malignant neoplasm of breast; Z81.8 Family history of other mental and behavioral disorders; Z83.3 Family history of diabetes mellitus
CPT/HCPCS: 36415; 71046; 71275; 73502; 80053; 81001; 83605; 83880; 84443; 84484; 85025; 85379; 85610; 85730; 87040; 87086; 93005; 93306; 93970; 96361; 96365; 96375; 96376; 99214; 99285

== ENCOUNTER 2020-03-23 12:48 | Emergency (ER) | payer MEDICARE, BC ==
[2020-03-23 12:56] LABS: Glucose,Whole Blood 226 mg/dL (75-99)
[2020-03-23 12:58] VITALS: TEMP 98.7
[2020-03-23] MEDS ORDERED: SODIUM CHLORIDE 0.9% 1,000 ML IV STA (13:12)
--- NOTE | 2020-03-23 13:17 | ED ---
General Adult HPI - General Chief complaint: Recheck/Abnormal Lab/Rx Stated complaint: elevated blood sugar Time Seen by Provider: 03/23/20 13:00 Source: patient, RN notes reviewed Mode of arrival: wheelchair Limitations: no limitations - History of Present Illness Initial comments: 80-year-old female with a past medical history of [id number] type 2 diabetes on metformin, PE DVT currently on Eliquis, hyperlipidemia, hypertension presents to the emergency room for a chief complaint of hyperglycemia. Patient reports that she got a cortisone injection into the right hip about 2 days ago. States her blood pressure was up to 298 yesterday. She called her doctor who reported that if it were maintained elevated to take an extra metformin. Patient reports this morning it was still up to 198 she wanted to be evaluated. She states she does feel a little bit shaky. No other symptoms. Denies chest pain or shortness of breath.Patient has no other complaints at this time including shortness of breath, chest pain, abdominal pain, nausea or vomiting, headache, or visual changes. - Related Data Home Medications Medication Instructions Recorded Confirmed Calcium Carb-Vit D 500Mg-200Un 1 tab PO DAILY 01/05/14 03/16/20 [Oscal 500+D] allopurinoL [Zyloprim] 100 mg PO DAILY 01/05/14 03/16/20 amLODIPine BESYLATE [Norvasc] 5 mg PO DAILY 01/05/14 03/16/20 atenoloL [Tenormin] 50 mg PO BID 01/05/14 03/16/20 Levothyroxine Sodium [Synthroid] 12.5 mcg PO DAILY 03/16/14 03/16/20 Zolpidem [Ambien] 5 mg PO HS PRN 03/16/14 03/16/20 metFORMIN HCL [Glucophage] 500 mg PO DAILY 11/12/17 03/16/20 Potassium Chloride 10 meq PO DAILY 07/21/19 03/16/20 HYDROcodone/APAP 10-325MG [[place] 1 tab PO Q8H PRN 11/24/19 03/16/20 10-325] FLUoxetine HCL [PROzac] 10 mg PO DAILY 03/08/20 03/16/20 FLUoxetine HCL [PROzac] 20 mg PO DAILY 03/08/20 03/16/20 Montelukast Sodium [Singulair] 10 mg PO HS 03/08/20 03/16/20 Omeprazole [PriLOSEC] 40 mg PO DAILY 03/08/20 03/16/20 traMADol HCL 50 mg PO TID PRN 03/08/20 03/16/20 Apixaban [Eliquis Starter Pack See Taper PO BID 03/16/20 03/16/20 (for VTE)] rOPINIRole HCL [Requip] 2 mg PO BID 03/16/20 03/16/20 Allergies Allergy/AdvReac Type Severity Reaction Status Date / Time adhesive Allergy red skin, Verified 03/23/20 12:52 blisters cefaclor [From Ceclor] Allergy Rash/Hives Verified 03/23/20 12:52 ciprofloxacin [From Cipro] Allergy Rash/Hives Verified 03/23/20 12:52 ciprofloxacin HCl Allergy Rash/Hives Verified 03/23/20 12:52 [From Cipro] hydromorphone HCl Allergy Anaphylaxis Verified 03/23/20 12:52 [From Dilaudid] Penicillins Allergy Rash/Hives Verified 03/23/20 12:52 sulfamethoxazole AdvReac Abdominal Verified 03/23/20 12:52 [From Bactrim] Pain trimethoprim [From Bactrim] AdvReac Abdominal Verified 03/23/20 12:52 Pain Review of Systems ROS Statement: Those systems with pertinent positive or pertinent negative responses have been documented in the HPI. ROS Other: All systems not noted in ROS Statement are negative. Past Medical History Past Medical History: Cancer, Diabetes Mellitus, Deep Vein Thrombosis (DVT), GERD/Reflux, Hyperlipidemia, Hypertension, Osteoarthritis (OA), Pulmonary Embolus (PE), Syncope Additional Past Medical History / Comment(s): TIA X2, SYNCOPE in 2013, VARICOSE VEINS, GOUT, LYMPHOMA (HX OF CHEMO & RADIATION 1977,1982 & 1993) History of Any Multi-Drug Resistant Organisms: None Reported Past Surgical History: Back Surgery, Cholecystectomy, Hysterectomy, Joint Replacement, Orthopedic Surgery Additional Past Surgical History / Comment(s): RIGHT HIP REPAIR, LEFT KNEE REPLACEMENT, HAND & FOOT SURG, BREAST & AXILLARY BX, TUMOR IN THROAT REMOVED., CERVICAL FUSION, 02-07-15 LUMBAR LAMINECTOMY,DECOMPRESSION-FUSION L1-L2., right knee replaced 07-31-19 Past Anesthesia/Blood Transfusion Reactions: No Reported Reaction Additional Past Anesthesia/Blood Transfusion Reaction / Comment(s): CLAUSTROPHOBIA Past Psychological History: Anxiety, Depression Smoking Status: Never smoker Past Alcohol Use History: None Reported Past Drug Use History: None Reported - Past Family History Father Family Medical History: Deep Vein Thrombosis (DVT) Additional Family Medical History / Comment(s): Father at age 32 from pulmonary embolism. Mother Family Medical History: Cancer Additional Family Medical History / Comment(s): Mother in her late 80s from breast cancer and also had dementia. Brother(s) Family Medical History: Cancer, Deep Vein Thrombosis (DVT) Additional Family Medical History / Comment(s): Patient had 2 brothers that have passed one from myocardial infarction and one from pulmonary embolism. 2 brothers are alive and one has lung cancer, one brother is alive with a brain aneurysm and CVA. General Exam Limitations: no limitations General appearance: alert, in no apparent distress Head exam: Present: atraumatic, normocephalic, normal inspection Eye exam: Present: normal appearance, PERRL, EOMI. Absent: scleral icterus, conjunctival injection, periorbital swelling ENT exam: Present: normal exam, mucous membranes moist Neck exam: Present: normal inspection, full ROM. Absent: tenderness, meningismus, lymphadenopathy Respiratory exam: Present: normal lung sounds bilaterally. Absent: respiratory distress, wheezes, rales, rhonchi, stridor Cardiovascular Exam: Present: regular rate, normal rhythm, normal heart sounds. Absent: systolic murmur, diastolic murmur, rubs, gallop, clicks GI/Abdominal exam: Present: soft, normal bowel sounds. Absent: distended, tenderness, guarding, rebound, rigid Neurological exam: Present: alert, normal gait (ambulatory with one assist which is patient's baseline.) Course Vital Signs 03/23/20 03/23/20 12:52 14:49 Temperature 98.7 F Pulse Rate 106 H 90 Respiratory 18 16 Rate Blood Pressure 133/86 142/81 O2 Sat by Pulse 97 95 Oximetry Medical Decision Making - Medical Decision Making Vitals are stable. CBC is unremarkable. CMP does show hyperglycemia of 229 improved his to 14 after fluids. Patient is dehydrated with a BUN to creatinine ratio of 26. However anion gap is normal at 11. Patient is acetone negative and ketones negative and the urine. At this time I counseled patient on increasing fluid intake and following up with her doctor. Patient has an appointment next week. I did discuss return parameters with patient and she is agreeable. - Lab Data Result diagrams: 03/23/20 13:28 03/23/20 13:28 Lab Results 03/23/20 03/23/20 03/23/20 Range/Units 12:55 13:28 13:28 WBC 9.9 (3.8-10.6) k/uL RBC 4.56 (3.80-5.40) m/uL Hgb 13.6 (11.4-16.0) gm/dL Hct 41.3 (34.0-46.0) % MCV 90.5 (80.0-100.0) fL MCH 29.7 (25.0-35.0) pg MCHC 32.9 (31.0-37.0) g/dL RDW 15.3 (11.5-15.5) % Plt Count 187 (150-450) k/uL Neutrophils % (Manual) 72 % Lymphocytes % (Manual) 8 % Monocytes % (Manual) 10 % Metamyelocytes % 4 % Myelocytes % 7 % Neutrophils # (Manual) 7.13 (1.3-7.7) k/uL Lymphocytes # (Manual) 0.79 L (1.0-4.8) k/uL Monocytes # (Manual) 0.99 (0-1.0) k/uL Metamyelocytes # (Man) 0.40 H (0) k/uL Myelocytes # (Manual) 0.69 H (0) k/uL Nucleated RBCs 0 (0-0) /100 WBC Manual Slide Review Performed RBC Morphology Normal Sodium (137-145) mmol/L Potassium (3.5-5.1) mmol/L Chloride (98-107) mmol/L Carbon Dioxide (22-30) mmol/L Anion Gap mmol/L BUN (7-17) mg/dL Creatinine (0.52-1.04) mg/dL Est GFR (CKD-EPI)AfAm (>60 ml/min/1.73 sqM) Est GFR (CKD-EPI)NonAf (>60 ml/min/1.73 sqM) Glucose (74-99) mg/dL POC Glucose (mg/dL) 226 H (75-99) mg/dL POC Glu Feed Inspection Supervisor ID Best, Farida Calcium (8.4-10.2) mg/dL Total Bilirubin (0.2-1.3) mg/dL AST (14-36) U/L ALT (4-34) U/L Alkaline Phosphatase (38-126) U/L Total Protein (6.3-8.2) g/dL Albumin (3.5-5.0) g/dL Urine Color Yellow Urine Appearance Clear (Clear) Urine pH 6.0 (5.0-8.0) Ur Specific [place] 1.020 (1.001-1.035) Urine Protein Negative (Negative) Urine Glucose (UA) 4+ H (Negative) Urine Ketones Negative (Negative) Urine Blood Small H (Negative) Urine Nitrite Negative (Negative) Urine Bilirubin Negative (Negative) Urine Urobilinogen <2.0 (<2.0) mg/dL Ur Leukocyte Esterase Trace H (Negative) Urine RBC 3 (0-5) /hpf Urine WBC 2 (0-5) /hpf Ur Squamous Epith Cells 4 (0-4) /hpf Urine Mucus Rare H (None) /hpf Acetone, Qual (Negative) 03/23/20 03/23/20 Range/Units 13:28 14:15 WBC (3.8-10.6) k/uL RBC (3.80-5.40) m/uL Hgb (11.4-16.0) gm/dL Hct (34.0-46.0) % MCV (80.0-100.0) fL MCH (25.0-35.0) pg MCHC (31.0-37.0) g/dL RDW (11.5-15.5) % Plt Count (150-450) k/uL Neutrophils % (Manual) % Lymphocytes % (Manual) % Monocytes % (Manual) % Metamyelocytes % % Myelocytes % % Neutrophils # (Manual) (1.3-7.7) k/uL Lymphocytes # (Manual) (1.0-4.8) k/uL Monocytes # (Manual) (0-1.0) k/uL Metamyelocytes # (Man) (0) k/uL Myelocytes # (Manual) (0) k/uL Nucleated RBCs (0-0) /100 WBC Manual Slide Review RBC Morphology Sodium 135 L (137-145) mmol/L Potassium 3.9 (3.5-5.1) mmol/L Chloride 102 (98-107) mmol/L Carbon Dioxide 22 (22-30) mmol/L Anion Gap 11 mmol/L BUN 19 H (7-17) mg/dL Creatinine 0.71 (0.52-1.04) mg/dL Est GFR (CKD-EPI)AfAm >90 (>60 ml/min/1.73 sqM) Est GFR (CKD-EPI)NonAf 82 (>60 ml/min/1.73 sqM) Glucose 229 H (74-99) mg/dL POC Glucose (mg/dL) 214 H (75-99) mg/dL POC Glu Feed Inspection Supervisor ID Bowling, Maribeth Calcium 10.3 H (8.4-10.2) mg/dL Total Bilirubin 0.9 (0.2-1.3) mg/dL AST 25 (14-36) U/L ALT 22 (4-34) U/L Alkaline Phosphatase 80 (38-126) U/L Total Protein 7.0 (6.3-8.2) g/dL Albumin 4.5 (3.5-5.0) g/dL Urine Color Urine Appearance (Clear) Urine pH (5.0-8.0) Ur Specific [place] (1.001-1.035) Urine Protein (Negative) Urine Glucose (UA) (Negative) Urine Ketones (Negative) Urine Blood (Negative) Urine Nitrite (Negative) Urine Bilirubin (Negative) Urine Urobilinogen (<2.0) mg/dL Ur Leukocyte Esterase (Negative) Urine RBC (0-5) /hpf Urine WBC (0-5) /hpf Ur Squamous Epith Cells (0-4) /hpf Urine Mucus (None) /hpf Acetone, Qual Negative (Negative) Disposition Clinical Impression: Hyperglycemia Disposition: HOME SELF-CARE Condition: Good Instructions (If sedation given, give patient instructions): Diabetic Hyperglycemia (ED) Additional Instructions: please drink plenty of fluids for the next few days. Follow-up with your doctor on Wednesday at your appointment. If you have any worsening symptoms before that return to the emergency room. Is patient prescribed a controlled substance at d/c from ED?: No Referrals: Alvarez Rocha DO [Primary Care Provider] - 1-2 days Time of Disposition: 14:48
[2020-03-23 13:43] LABS: Appearance,Urine Clear (Clear); Bilirubin,Urine Negative (Negative); Blood,Urine Small (Negative); Color,Urine Yellow; Glucose,Urine (UA) 4+ (Negative); Ketones,Urine Negative (Negative); Leukocyte Esterase,Urine Trace (Negative); Mucus,Urine Rare /hpf; Nitrite,Urine Negative (Negative); Protein,Urine Negative (Negative); RBC,Urine 3 /hpf (0-5); Squamous Epithelial Cell,Urine 4 /hpf (0-4); Urobilinogen,Urine <2.0 mg/dL (<2.0); WBC,Urine 2 /hpf (0-5)
[2020-03-23 13:47] LABS: ALT 22 U/L (4-34); AST 25 U/L (14-36); African American GFR (CKD) >90 (>60 ml/min/1.73 sqM); Albumin 4.5 g/dL (3.5-5.0); Alkaline Phosphatase 80 U/L (38-126); Anion Gap 11 mmol/L; Blood Urea Nitrogen 19 mg/dL (7-17); Calcium 10.3 mg/dL (8.4-10.2); Carbon Dioxide 22 mmol/L (22-30); Chloride 102 mmol/L (98-107); Glucose 229 mg/dL (74-99); Non-African American GFR(CKD) 82 (>60 ml/min/1.73 sqM); Potassium 3.9 mmol/L (3.5-5.1); Sodium 135 mmol/L (137-145); Total Bilirubin 0.9 mg/dL (0.2-1.3)
[2020-03-23 14:05] LABS: HCT 41.3 % (34.0-46.0); HGB 13.6 gm/dL (11.4-16.0); MCH 29.7 pg (25.0-35.0); MCHC 32.9 g/dL (31.0-37.0); MCV 90.5 fL (80.0-100.0); Mean Platelet Volume 6.9; Platelet Count 187 k/uL (150-450); RBC 4.56 m/uL (3.80-5.40); RDW 15.3 % (11.5-15.5); WBC 9.9 k/uL (3.8-10.6)
[2020-03-23] MEDS ORDERED: ACETAMINOPHEN TAB 325 MG TAB PO STA (14:14)
[2020-03-23 14:17] LABS: Glucose,Whole Blood 214 mg/dL (75-99)
[2020-03-23 14:24] LABS: Lymphocytes # (M) 0.79 k/uL (1.0-4.8); Metamyelocytes % 4 %; Monocytes # (M) 0.99 k/uL (0-1.0); Myelocytes # (M) 0.69 k/uL (0); Myelocytes % 7 %; Neutrophils # (M) 7.13 k/uL (1.3-7.7); Neutrophils % (M) 72 %; Nucleated Red Blood Cells 0 /100 WBC (0-0); Total Cells Counted 200
[2020-03-23] MEDS ORDERED: HYDROcodone/APAP 5-325MG 1 EACH TAB PO STA (14:33)
[2020-03-23 14:50] VITALS: BP 142/81; PULSE 90; RESP 16
== END 2020-03-23 14:55 | disposition home or self-care (01) ==
LOC: EC 12:48
DX: E86.0 Dehydration (principal); E11.65 Type 2 diabetes mellitus with hyperglycemia; F41.9 Anxiety disorder, unspecified; F32.9 Major depressive disorder, single episode, unspecified; E78.5 Hyperlipidemia, unspecified; I10 Essential (primary) hypertension; K21.9 Gastro-esophageal reflux disease without esophagitis; M10.9 Gout, unspecified; Z79.84 Long term (current) use of oral hypoglycemic drugs; Z79.890 Hormone replacement therapy; Z79.899 Other long term (current) drug therapy; Z79.01 Long term (current) use of anticoagulants; Z86.711 Personal history of pulmonary embolism; Z86.718 Personal history of other venous thrombosis and embolism; Z85.72 Personal history of non-Hodgkin lymphomas; Z92.21 Personal history of antineoplastic chemotherapy; Z92.3 Personal history of irradiation; Z91.048 Other nonmedicinal substance allergy status; Z88.1 Allergy status to other antibiotic agents; Z88.2 Allergy status to sulfonamides; Z88.5 Allergy status to narcotic agent; Z90.49 Acquired absence of other specified parts of digestive tract; Z98.1 Arthrodesis status; Z96.653 Presence of artificial knee joint, bilateral
CPT/HCPCS: 36415; 80053; 81001; 82009; 85025; 96360; 99284

== ENCOUNTER 2020-04-15 20:17 | Inpatient (IN) | payer MEDICARE, BC ==
--- NOTE | 2020-04-15 21:06 | ED ---
Weakness HPI <Luis Pino - Last Filed: 04/15/20 22:24> - General Source: patient, EMS, RN notes reviewed, old records reviewed Mode of arrival: EMS Limitations: no limitations <Yulisa Grady - Last Filed: 04/15/20 22:34> - General Chief complaint: Weakness Stated complaint: back pain Time Seen by Provider: 04/15/20 20:48 - History of Present Illness Initial comments: Patient is a 80-year-old female with a history of lower back pain and reported bone spur on her lumbar spine. She is seeing Dr. Edward'raymundo and is scheduled to have surgery for her lower back on Wednesday. Patient reports that this afternoon at 6:00 after going to the bathroom she noticed that she had significant weakness in the right leg. Patient's denies any headache or other complaints at this time. She states that she was told if she had further weakness developing into the right leg to come to the ER to consult her back surgeon. She states that she has had no significant loss of bowel or bladder control. She reports that she has normal sensation to the lower extremity. She reports reports pain with lifting. (Yulisa Grady) - Related Data Home Medications Medication Instructions Recorded Confirmed Calcium Carb-Vit D 500Mg-200Un 1 tab PO DAILY 01/05/14 04/15/20 [Oscal 500+D] allopurinoL [Zyloprim] 100 mg PO DAILY 01/05/14 04/15/20 amLODIPine BESYLATE [Norvasc] 5 mg PO DAILY 01/05/14 04/15/20 atenoloL [Tenormin] 50 mg PO BID 01/05/14 04/15/20 Levothyroxine Sodium [Synthroid] 12.5 mcg PO DAILY 03/16/14 04/15/20 Zolpidem [Ambien] 5 mg PO HS PRN 03/16/14 04/15/20 Potassium Chloride 10 meq PO DAILY 07/21/19 04/15/20 HYDROcodone/APAP 10-325MG [Dennehotso 1 tab PO Q8H PRN 11/24/19 04/15/20 10-325] FLUoxetine HCL [PROzac] 10 mg PO DAILY 03/08/20 04/15/20 FLUoxetine HCL [PROzac] 20 mg PO DAILY 03/08/20 04/15/20 Montelukast Sodium [Singulair] 10 mg PO HS 03/08/20 04/15/20 Omeprazole [PriLOSEC] 40 mg PO BID 03/08/20 04/15/20 traMADol HCL 50 mg PO TID PRN 03/08/20 04/15/20 Apixaban [Eliquis Starter Pack See Taper PO BID 03/16/20 04/15/20 (for VTE)] rOPINIRole HCL [Requip] 2 mg PO BID 03/16/20 04/15/20 Ipratropium [place] 0.06%Nasal 2 spray EA NOSTRIL BID 04/15/20 04/15/20 [Atrovent Nasal 0.06%] Allergies Allergy/AdvReac Type Severity Reaction Status Date / Time adhesive Allergy red skin, Verified 04/15/20 22:23 blisters cefaclor [From Ceclor] Allergy Rash/Hives Verified 04/15/20 22:23 ciprofloxacin [From Cipro] Allergy Rash/Hives Verified 04/15/20 22:23 ciprofloxacin HCl Allergy Rash/Hives Verified 04/15/20 22:23 [From Cipro] hydromorphone HCl Allergy Anaphylaxis Verified 04/15/20 22:23 [From Dilaudid] Penicillins Allergy Rash/Hives Verified 04/15/20 22:23 sulfamethoxazole AdvReac Abdominal Verified 04/15/20 22:23 [From Bactrim] Pain trimethoprim [From Bactrim] AdvReac Abdominal Verified 04/15/20 22:23 Pain Review of Systems ROS Other: All systems not noted in ROS Statement are negative. <Luis Pino - Last Filed: 04/15/20 22:24> ROS Other: All systems not noted in ROS Statement are negative. <Yulisa Grady - Last Filed: 04/15/20 22:34> ROS Statement: Those systems with pertinent positive or pertinent negative responses have been documented in the HPI. Past Medical History Past Medical History: Cancer, Diabetes Mellitus, Deep Vein Thrombosis (DVT), GERD/Reflux, Hyperlipidemia, Hypertension, Osteoarthritis (OA), Pulmonary Embolus (PE), Syncope Additional Past Medical History / Comment(s): TIA X2, SYNCOPE in 2013, VARICOSE VEINS, GOUT, LYMPHOMA (HX OF CHEMO & RADIATION 1977,1982 & 1993) History of Any Multi-Drug Resistant Organisms: None Reported Past Surgical History: Back Surgery, Cholecystectomy, Hysterectomy, Joint Replacement, Orthopedic Surgery Additional Past Surgical History / Comment(s): RIGHT HIP REPAIR, LEFT KNEE REPLACEMENT, HAND & FOOT SURG, BREAST & AXILLARY BX, TUMOR IN THROAT REMOVED., CERVICAL FUSION, 02-07-15 LUMBAR LAMINECTOMY,DECOMPRESSION-FUSION L1-L2., right knee replaced 07-31-19 Past Anesthesia/Blood Transfusion Reactions: No Reported Reaction Additional Past Anesthesia/Blood Transfusion Reaction / Comment(s): CLAUSTROPHOBIA Past Psychological History: Anxiety, Depression Smoking Status: Never smoker Past Alcohol Use History: None Reported Past Drug Use History: None Reported - Past Family History Father Family Medical History: Deep Vein Thrombosis (DVT) Additional Family Medical History / Comment(s): Father at age 32 from pulmonary embolism. Mother Family Medical History: Cancer Additional Family Medical History / Comment(s): Mother in her late 80s from breast cancer and also had dementia. Brother(s) Family Medical History: Cancer, Deep Vein Thrombosis (DVT) Additional Family Medical History / Comment(s): Patient had 2 brothers that have passed one from myocardial infarction and one from pulmonary embolism. 2 brothers are alive and one has lung cancer, one brother is alive with a brain aneurysm and CVA. <Yulisa Grady - Last Filed: 04/15/20 22:34> General Exam Limitations: no limitations General appearance: alert, in no apparent distress Head exam: Present: atraumatic, normocephalic, normal inspection Eye exam: Present: normal appearance, PERRL, EOMI. Absent: scleral icterus, conjunctival injection, periorbital swelling ENT exam: Present: normal exam, mucous membranes moist Neck exam: Present: normal inspection. Absent: tenderness, meningismus, lymphadenopathy Respiratory exam: Present: normal lung sounds bilaterally. Absent: respiratory distress, wheezes, rales, rhonchi, stridor Cardiovascular Exam: Present: regular rate, normal rhythm, normal heart sounds. Absent: systolic murmur, diastolic murmur, rubs, gallop, clicks GI/Abdominal exam: Present: soft, normal bowel sounds. Absent: distended, tenderness, guarding, rebound, rigid Rectal exam: Present: normal inspection, normal rectal tone (Patient is normal sensation to perineum and buttocks.) Extremities exam: Present: normal inspection, full ROM, normal capillary refill, other ( Pt has right foot drop. Patient does have good plantar flexion strength. She does have evidence of pain with straight leg raise on the right leg. She is tenderness over the right sciatic notch.). Absent: tenderness, pedal edema, joint swelling, calf tenderness Back exam: Present: normal inspection, vertebral tenderness (Lumbar) Neurological exam: Present: alert, oriented X3, CN II-XII intact Psychiatric exam: Present: normal affect, normal mood <Yulisa Grady - Last Filed: 04/15/20 22:34> - General Exam Comments Initial Comments: Alert and oriented 80-year-old female. No significant distress. (Yulisa Grady) Course <Luis Pino - Last Filed: 04/15/20 22:24> Vital Signs 04/15/20 04/15/20 04/15/20 20:22 21:35 21:36 Temperature 98.1 F Pulse Rate 114 H Respiratory 18 18 Rate Blood Pressure 151/90 109/91 O2 Sat by Pulse 96 Oximetry 04/15/20 22:15 Temperature Pulse Rate 104 H Respiratory 18 Rate Blood Pressure 114/82 O2 Sat by Pulse 98 Oximetry - Reevaluation(s) Reevaluation #1: 04/15/20 22:24 PA supervision: I proceeded [id number] evaluation the patient. She did present with complaints of right leg weakness secondary to pain. She is scheduled to have a surgical procedure done because of her low back and leg pain. She's had a foot drop for a period of time she states she had trouble suddenly not been able use her leg but it was secondary to pain because of loss of function area she had no other complaints of weakness no falls no fevers chills nausea vomiting sweats or other symptoms at this time. The case was discussed with Dr. Plummer. Patient will be admitted for further evaluation treatment. (Luis Pino) Medical Decision Making - Lab Data Result diagrams: 04/15/20 21:12 04/15/20 21:12 <Luis Pino - Last Filed: 04/15/20 22:24> - Lab Data Result diagrams: 04/15/20 21:12 04/15/20 21:12 <Yulisa Grady - Last Filed: 04/15/20 22:34> - Medical Decision Making 80-year-old female presents with acute right lower extremity weakness. She has history of "bone spur in her spine. She was seeing Dr. Edward since today was told to come to the ER if she has worsening weakness. Today at 6:30 PM she reports she was unable to lift her leg. She has normal rectal tone at this time. No significant saddle anesthesia. Patient does have evidence of right foot drop which she reports is chronic. Patient's case was discussed with Dr. Mccullough recommends admission with consult to medicine. Patient was given IV pain medication. Ct thoracic and lumbar is pending. (Yulisa rGady) - Lab Data Lab Results 04/15/20 04/15/20 04/15/20 Range/Units 21:12 21:12 21:12 WBC 7.1 (3.8-10.6) k/uL RBC 4.37 (3.80-5.40) m/uL Hgb 13.7 (11.4-16.0) gm/dL Hct 39.9 (34.0-46.0) % MCV 91.3 (80.0-100.0) fL MCH 31.3 (25.0-35.0) pg MCHC 34.3 (31.0-37.0) g/dL RDW 15.8 H (11.5-15.5) % Plt Count 158 (150-450) k/uL PT 10.3 (9.0-12.0) sec INR 1.0 (<1.2) APTT 21.9 L (22.0-30.0) sec Sodium 139 (137-145) mmol/L Potassium 3.7 (3.5-5.1) mmol/L Chloride 111 H (98-107) mmol/L Carbon Dioxide 21 L (22-30) mmol/L Anion Gap 7 mmol/L BUN 20 H (7-17) mg/dL Creatinine 0.76 (0.52-1.04) mg/dL Est GFR (CKD-EPI)AfAm 87 (>60 ml/min/1.73 sqM) Est GFR (CKD-EPI)NonAf 76 (>60 ml/min/1.73 sqM) Glucose 275 H (74-99) mg/dL Calcium 9.7 (8.4-10.2) mg/dL Total Bilirubin 1.0 (0.2-1.3) mg/dL AST 25 (14-36) U/L ALT 22 (4-34) U/L Alkaline Phosphatase 81 (38-126) U/L Total Protein 6.7 (6.3-8.2) g/dL Albumin 4.2 (3.5-5.0) g/dL Stool Occult Blood (Negative) 04/15/20 Range/Units 21:12 WBC (3.8-10.6) k/uL RBC (3.80-5.40) m/uL Hgb (11.4-16.0) gm/dL Hct (34.0-46.0) % MCV (80.0-100.0) fL MCH (25.0-35.0) pg MCHC (31.0-37.0) g/dL RDW (11.5-15.5) % Plt Count (150-450) k/uL PT (9.0-12.0) sec INR (<1.2) APTT (22.0-30.0) sec Sodium (137-145) mmol/L Potassium (3.5-5.1) mmol/L Chloride (98-107) mmol/L Carbon Dioxide (22-30) mmol/L Anion Gap mmol/L BUN (7-17) mg/dL Creatinine (0.52-1.04) mg/dL Est GFR (CKD-EPI)AfAm (>60 ml/min/1.73 sqM) Est GFR (CKD-EPI)NonAf (>60 ml/min/1.73 sqM) Glucose (74-99) mg/dL Calcium (8.4-10.2) mg/dL Total Bilirubin (0.2-1.3) mg/dL AST (14-36) U/L ALT (4-34) U/L Alkaline Phosphatase (38-126) U/L Total Protein (6.3-8.2) g/dL Albumin (3.5-5.0) g/dL Stool Occult Blood Negative (Negative) Disposition <Luis Pino - Last Filed: 04/15/20 22:24> Is patient prescribed a controlled substance at d/c from ED?: No Time of Disposition: 22:34 <Yulisa Grady - Last Filed: 04/15/20 22:34> Clinical Impression: Right leg weakness Disposition: ADMITTED IP TO THIS HOSP Condition: Stable Referrals: Alvarez Rocha DO [Primary Care Provider] - 1-2 days
[2020-04-15 21:41] LABS: Albumin 4.2 g/dL (3.5-5.0); Calcium 9.7 mg/dL (8.4-10.2); HCT 39.9 % (34.0-46.0); HGB 13.7 gm/dL (11.4-16.0); MCH 31.3 pg (25.0-35.0); MCHC 34.3 g/dL (31.0-37.0); MCV 91.3 fL (80.0-100.0); Mean Platelet Volume 6.9; Platelet Count 158 k/uL (150-450); Potassium 3.7 mmol/L (3.5-5.1); RBC 4.37 m/uL (3.80-5.40); RDW 15.8 % (11.5-15.5); Total Protein 6.7 g/dL (6.3-8.2); WBC 7.1 k/uL (3.8-10.6)
[2020-04-15] MEDS ORDERED: MORPHINE SULFATE 4 MG/ML SYRINGE IVP STA (22:06)
[2020-04-15] MEDS ORDERED: KETOROLAC 15 MG/ML 1 ML VIAL IVP STA (22:06)
[2020-04-15] MEDS ORDERED: DEXAMETHASONE SOD PHOSPHATE 10 MG/ML 1 ML VIAL IV STA (22:06)
[2020-04-15 22:08] LABS: Prothrombin Time 10.3 sec (9.0-12.0)
[2020-04-15 22:09] LABS: Partial Thromboplastin Time 21.9 sec (22.0-30.0)
[2020-04-15] MEDS: SODIUM CHLORIDE 0.9% 1,000 ML IV SCH (22:10)
[2020-04-15] MEDS ORDERED: IBUPROFEN 400 MG TAB PO PRN (22:34)
[2020-04-15] MEDS ORDERED: ACETAMINOPHEN TAB 325 MG TAB PO PRN (22:34)
[2020-04-15] MEDS ORDERED: KETOROLAC 15 MG/ML 1 ML VIAL IVP PRN (22:34)
[2020-04-15] MEDS ORDERED: NALOXONE 0.4 MG/ML 1 ML VIAL IV PRN (22:34)
[2020-04-15] MEDS ORDERED: ONDANSETRON 4 MG/2 ML VIAL IVP PRN (22:34)
[2020-04-15 22:37] LABS: Band Neutrophils % 18 %; Lymphocytes # (M) 0.57 k/uL (1.0-4.8); Metamyelocytes # (M) 0.21 k/uL (0); Metamyelocytes % 3 %; Monocytes # (M) 0.21 k/uL (0-1.0); Myelocytes # (M) 0.21 k/uL (0); Myelocytes % 3 %; Neutrophils % (M) 68 %; Nucleated Red Blood Cells 0 /100 WBC (0-0); Total Cells Counted 200
[2020-04-15 22:38] LABS: Anisocytosis (M) Present; Large Platelets Present
[2020-04-15 22:39] LABS: Polychromasia Present
[2020-04-15 22:44] LABS: Poikilocytosis (M) Present
--- NOTE | 2020-04-15 23:47 | CT ---
EXAMINATION TYPE: CT thor lumbar spine wo con DATE OF EXAM: 04/15/2020 COMPARISON: HISTORY: Pt c/o back pain. Previous sx, and pt scheduled Wednesday for surgery. PT has sensation in RT leg but cannot move it, which she was able to yesterday CT DLP: 1104.5 mGycm Automated exposure control for dose reduction was used. Images were obtained from the level of T1-S2 vertebra without contrast. There is long segment mild thoracolumbar dextroscoliosis. There is multilevel posterior fusion surger y from L1 to S1. There is 25% compression deformity of L1 vertebral body that appears old. There is v acuum disc at T12-L1. There is extensive posterior osteophyte formation and probable disc herniation at T12-L1 encroaching on the spinal canal. There is multilevel laminectomy defect. There is a 13 mm r ounded bone density mass in the spinal canal on the left side at T12-L1 I see no compression fracture of the thoracic spine. There is no thoracic paraspinal mass. There is n o sign of focal bone destruction of the thoracic spine. The sacroiliac joints appear intact. There is no lumbar paraspinal mass. There is symmetric mild wedg e muscle atrophy. IMPRESSION: Multilevel posterior fusion surgery. Spinal stenosis is present at T12-L1 with bony mass in the spina l canal anteriorly on the left side. No acute fracture seen.
[2020-04-16 07:03] LABS: Glucose,Whole Blood 313 mg/dL (75-99)
[2020-04-16] MEDS ORDERED: ACETAMINOPHEN TAB 500 MG TAB PO PRN (07:43)
[2020-04-16] MEDS: MORPHINE SULFATE 4 MG/ML SYRINGE IV PRN ×4 (07:54→21:11)
[2020-04-16] MEDS: PANTOPRAZOLE 40 MG/10 ML VIAL IV SCH (07:54)
[2020-04-16] MEDS: SODIUM CHLORIDE 0.9% 1,000 ML IV SCH ×4 (07:58→21:19)
--- NOTE | 2020-04-16 08:49 | P.HPOR ---
History of Present Illness H&P Date: 04/16/20 Chief Complaint: RLE weakness, bladder incontinence HISTORY: 04/15/20 This 80 year old female returns with years of back pain. She has history of T12-L1 spondylosis With a large disc osteophyte complex causing canal compromise. she was being treated for a DVT and PE with Eliquis and she is still taking this currently. She notes pain with her mid back and low back pain. Patient notes pain that radiates down her right leg. She has right foot drop over the past 3 weeks. Patient has increased weakness. She ambulates with a wheeled walker. Patient takes [place] and Tramadol. she has been wearing her TLSO religiously and it seems to have helped her. She states. She states that the foot drop started before the TLSO was placed. She has been going to therapy and therapy is who notice that she started having foot drop. She denies any numbness in her genital region but states an increase in her groin region on the R that seems to travel around down towards her genitals on the L and R. Currently, she does state a bout of difficulty stopping urine from coming out. There was no overt incontinence of bowel or bladder, but she states that she is having more trouble holding it in now. she denies any new trauma. She denies fevers, chills shortness of breath or chest pain at this time. HPI: Pt seen and examined today. Continues to have foot drop and more weakness in her R hip with flexion. Still able to PF, KF and Hip flexion with 4-/5 strength. No perineal numbness but c/o groin numbness that seems to be traveling there. Rectal tone intact. Rectal sensation intact. One bout of urinary incontinence, but she states its getting harder to hold in. Robert f/c/sob/cp at this time. Review of Systems 14 points review of systems completed and as stated in HPI or otherwise negative. Cardiovascular: Reports as per HPI Respiratory: Reports as per HPI Gastrointestinal: Reports as per HPI Genitourinary: Reports difficulty voiding, Reports incomplete emptying, Reports stress incontinence, Reports urgency Musculoskeletal: Reports arm numbness/tingling, Reports gait dysfunction, Reports leg numbness/tingling, Reports low back pain, Reports muscle weakness, Reports shooting leg pain Musculoskeletal: right: hip swelling, knee stiffness, knee swelling Neurological: Reports motor disturbance, Reports numbness, Reports paresthesias Past Medical History Past Medical History: Cancer, Diabetes Mellitus, Deep Vein Thrombosis (DVT), GERD/Reflux, Hyperlipidemia, Hypertension, Osteoarthritis (OA), Pulmonary Embolus (PE), Syncope Additional Past Medical History / Comment(s): TIA X2, SYNCOPE in 2013, VARICOSE VEINS, GOUT, LYMPHOMA (HX OF CHEMO & RADIATION 1977,1982 & 1993) History of Any Multi-Drug Resistant Organisms: None Reported Past Surgical History: Back Surgery, Cholecystectomy, Hysterectomy, Joint Replacement, Orthopedic Surgery Additional Past Surgical History / Comment(s): RIGHT HIP REPAIR, LEFT KNEE REPLACEMENT, HAND & FOOT SURG, BREAST & AXILLARY BX, TUMOR IN THROAT REMOVED., CERVICAL FUSION, 02-07-15 LUMBAR LAMINECTOMY,DECOMPRESSION-FUSION L1-L2., right knee replaced 07-31-19 Past Anesthesia/Blood Transfusion Reactions: No Reported Reaction Additional Past Anesthesia/Blood Transfusion Reaction / Comment(s): CLAUSTROPHOBIA Past Psychological History: Anxiety, Depression Additional Psychological History / Comment(s): (end of 2019) Smoking Status: Never smoker Past Alcohol Use History: None Reported Past Drug Use History: None Reported - Past Family History Father Family Medical History: Deep Vein Thrombosis (DVT) Additional Family Medical History / Comment(s): Father at age 32 from pulmonary embolism. Mother Family Medical History: Cancer Additional Family Medical History / Comment(s): Mother in her late 80s from breast cancer and also had dementia. Brother(s) Family Medical History: Cancer, Deep Vein Thrombosis (DVT) Additional Family Medical History / Comment(s): Patient had 2 brothers that have passed one from myocardial infarction and one from pulmonary embolism. 2 brothers are alive and one has lung cancer, one brother is alive with a brain aneurysm and CVA. Medications and Allergies Home Medications Medication Instructions Recorded Confirmed Type Calcium Carb-Vit D 500Mg-200Un 1 tab PO DAILY 01/05/14 04/15/20 History [Oscal 500+D] allopurinoL [Zyloprim] 100 mg PO DAILY 01/05/14 04/15/20 History amLODIPine BESYLATE [Norvasc] 5 mg PO DAILY 01/05/14 04/15/20 History atenoloL [Tenormin] 50 mg PO BID 01/05/14 04/15/20 History Levothyroxine Sodium [Synthroid] 12.5 mcg PO DAILY 03/16/14 04/15/20 History Zolpidem [Ambien] 5 mg PO HS PRN 03/16/14 04/15/20 History Potassium Chloride 10 meq PO DAILY 07/21/19 04/15/20 History HYDROcodone/APAP 10-325MG [[place] 1 tab PO Q8H PRN 11/24/19 04/15/20 History 10-325] FLUoxetine HCL [PROzac] 10 mg PO DAILY 03/08/20 04/15/20 History FLUoxetine HCL [PROzac] 20 mg PO DAILY 03/08/20 04/15/20 History Montelukast Sodium [Singulair] 10 mg PO HS 03/08/20 04/15/20 History Omeprazole [PriLOSEC] 40 mg PO BID 03/08/20 04/15/20 History traMADol HCL 50 mg PO TID PRN 03/08/20 04/15/20 History Apixaban [Eliquis Starter Pack See Taper PO BID 03/16/20 04/15/20 History (for VTE)] rOPINIRole HCL [Requip] 2 mg PO BID 03/16/20 04/15/20 History Ipratropium [place] 0.06%Nasal 2 spray EA NOSTRIL BID 04/15/20 04/15/20 History [Atrovent Nasal 0.06%] Allergies Allergy/AdvReac Type Severity Reaction Status Date / Time adhesive Allergy red skin, Verified 04/15/20 22:23 blisters cefaclor [From Ceclor] Allergy Rash/Hives Verified 04/15/20 22:23 ciprofloxacin [From Cipro] Allergy Rash/Hives Verified 04/15/20 22:23 ciprofloxacin HCl Allergy Rash/Hives Verified 04/15/20 22:23 [From Cipro] hydromorphone HCl Allergy Anaphylaxis Verified 04/15/20 22:23 [From Dilaudid] Penicillins Allergy Rash/Hives Verified 04/15/20 22:23 sulfamethoxazole AdvReac Abdominal Verified 04/15/20 22:23 [From Bactrim] Pain trimethoprim [From Bactrim] AdvReac Abdominal Verified 04/15/20 22:23 Pain Physical Examination Osteopathic Statement: *. No significant issues noted on an osteopathic structural exam other than those noted in the History and Physical/Consult. General: Awake, alert, appropriate for age, in no acute distress. HEENT: No unusual neck masses around region of lateral neck triangle, thyroid, supraclavicular groove Heart: Regular rate and rhythm, normal S1, S2 and no murmur/gallop. Lungs: Clear to auscultation bilaterally with no use of accessory muscles. Extremities: Skin warm and dry without acute lesions, coloration, temperature, skin intact, no tenderness or erythema Integument: Hairy patches: Absent Dorsal skin dimples: Absent Cafe au lait spots: Absent Surgical incisions: Present low back midline, well healed. no EEE. Palpation: Midline spinal tenderness: yes thoracic lumbar E6 Paralumbar tenderness: yes bilateral E6 Parathoracic tenderness: yes bilateral E6 Buttocks tenderness: yes bilateral E6 Special findings: none VASCULAR STATUS : RIGHT LEFT Wrist Pulses intact intact Pedal Pulses (Dors. pedis & post.tibialis) intact intact Color normal normal Edema Absent Absent MOTOR EXAM (0-5/5, N/T) STRENGTH RIGHT LEFT Shoulder Abd (not part of the LEONA score) 5 5 Elbow Flexors 5 5 Elbow Extensor 5 5 Wrist Dorsiflexors 5 5 Finger Abductor 5 5 Stand In 5 5 Hip Flexor (Not part of LEONA Motor score) 5 5 Knee Flexor 5 4+ Knee Extensor 5 2 Ankle dorsiflexor 5 1 Ankle plantarflexion 5 3 Extensor hallucis 5 1 REFLEXES(0-4/2, NT) RIGHTLEFT Upper Extremities 2 2 Lower Extremities 2 2 Pathological ReflexesRIGHTLEFT Franklin's Absent Absent Clonus Absent Absent CN II-XII grossly intact. Negative babinski b/l Sensation is intact to light touch and pain in the lower extremity is bilaterally in the L2 to S1 nerve distribution. Chap[place]ed rectal exam: Rectal tone in tact, but poor, + poor volitional control. Gait and Functional Evaluation: Ambulatory aids: Walker Toe heel walk / heel-toe walk intact while maintaining satisfactory balance? No Squatting/straightening w/o assistance to a min of 60 degree knee flexion? No Single leg stance: intact Trendelenburg sign b/l Hand and finger dexterity intact bilaterally? yes Disdiadochokinesis examination negative bilaterally? yes Results CTs done in the emergency department redemonstrate significant canal stenosis on the right-hand side between T12 and L1 with failed hardware at L1. There is significant conus compression in this area due to a large osteophytic complex encroaching upon the cord. There is severe spondylosis from T 12 2 L1 in this region. The remainder of the spine is as described previously with hardware placed from L4 to S1 bony fusion from L2 to S1 with no appreciable foraminal or central stenosis from L2 to S1. - Labs Labs: Abnormal Lab Results - Last 24 Hours (Table) 04/15/20 04/15/20 04/15/20 Range/Units 21:12 21:12 21:12 RDW 15.8 H (11.5-15.5) % Lymphocytes # (Manual) 0.57 L (1.0-4.8) k/uL Metamyelocytes # (Man) 0.21 H (0) k/uL Myelocytes # (Manual) 0.21 H (0) k/uL APTT 21.9 L (22.0-30.0) sec Chloride 111 H (98-107) mmol/L Carbon Dioxide 21 L (22-30) mmol/L BUN 20 H (7-17) mg/dL Glucose 275 H (74-99) mg/dL POC Glucose (mg/dL) (75-99) mg/dL 04/16/20 Range/Units 07:02 RDW (11.5-15.5) % Lymphocytes # (Manual) (1.0-4.8) k/uL Metamyelocytes # (Man) (0) k/uL Myelocytes # (Manual) (0) k/uL APTT (22.0-30.0) sec Chloride (98-107) mmol/L Carbon Dioxide (22-30) mmol/L BUN (7-17) mg/dL Glucose (74-99) mg/dL POC Glucose (mg/dL) 313 H (75-99) mg/dL H & H 04/15/20 Range/Units 21:12 Hgb 13.7 (11.4-16.0) gm/dL Hct 39.9 (34.0-46.0) % Coagulation 04/15/20 Range/Units 21:12 INR 1.0 (<1.2) Result Diagrams: 04/15/20 21:12 04/15/20 21:12 Assessment and Plan Assessment: 1. T12-L1 severe spondylosis. 2. 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 Adjacent segment disease T12-L1 4. R foot drop Plan: Pretty Youngblood is a 80-year-old female presenting with her daughter for evaluation of onset of right lower extremity weakness, foot drop, new numbness and tingling in the groin region for the past 3 weeks. It was my pleasure to have seen and examined Pretty Youngblood. In our visit today we have had a chance to go over subjective complaints, physical examination findings and treatments including the natural course history without intervention and various interventional options. Her imaging demonstrates Severe spondylosis with adjacent segment disease of T12-L1 with large disc osteophyte complex of T12-L1 with hardware failure. On physical exam, Pretty demonstrates New onset weakness in her RLE of foot drop as well as an increased sense of tingling and numbness in her R groin area. She also states 1 bout of difficulty holding in her urine. I explained to the patient that as her condition progresses it will cause further neurological deficits and eventual paralysis. Based on the patients imaging, physical exam, and the rapid progression and disabling nature of her symptoms, at this time I recommend surgery in the form or a: L1-2 removal of hardware with T12-L2 decompressoin and fusion. I discussed the risk and benefits of this procedure at length with Pretty and her daughter in the room with her. The patient and her agreed to considered pursuing the procedure abovementioned. Prior to surgery, she should follow up with her PCP (Cardio, ID, IM etc) for clearance. Questions were invited and answered, and the patient wishes to proceed as outlined below. I discussed with her again today. The significant risk that she is for surgery having recent DVT with PE on Eliquis, history of TIA and significant comorbid history. I discussed at length that I may not be able to return her right lower extremity to complete function, but that the goal of the surgery is to prevent any progression to bowel or bladder incontinence, if possible, as this can be more severe and detrimental to her overall health. I reiterated again that I cannot guarantee her right lower extremity gets better or that her bowel or bladder symptoms get better but that we will do this in attempts to prevent any further progression. She understood this as well as her daughter and they are comfortable with continuing to proceed despite her high risk, comorbidities, risk of , risk of further surgery, risk of surgical failure. Currently, I am recommendin.Revision surgery with removal of hardware L1-2 with T12-L2 posterior instrumented fusion, T12-L1 interbody fusion, Decompressive laminectomy lf T12- L2 with disc osteophyte removal T12-L1 with possible exploration of fusion and decompression of L2-S1 with Removal of hardware and reinstrumentation of L2-S1. 2.Follow up with PCP for surgical clearance 3.Review of surgical risks and benefits as well as an educational packet on the proposed surgical procedure. 4. Stop Elliquis 2 days before surgery 5. Follow all presurgical instructions such as NPO order, medications as well as preparations. Risks: All surgical procedures come with inherent risks, including those related to positioning, anesthesia, intraoperative findings, and postoperative complications. It is important to understand that surgery does not come with any guarantee of a successful outcome as complications and adverse events are always possible. The patient was given a handout in office today discussing the surgical procedure and risks associated with the intervention, both of which were discussed with the patient. These risks include but are not limited to the following: ? Experiencing same, different or even worse symptoms in back, neck, arms, or legs compared to before surgery. ? Requiring further surgery or other forms of treatment presently or at some time in the future at same or other levels of the intended spine surgery. ? On an extreme but fortunately relatively rare basis severe complication such as blindness, stroke, heart attack, temporary and/or permanent nerve injury, paralysis, coma, or may occur, sometimes without known explanation . ? Surgical complications may include but are not limited to risk of infection, fluid accumulation in the surgical dissection site, including a seroma or hematoma, that requires additional surgery, wound drainage, bleeding, new numbness or weakness, vision changes/loss, spinal fluid leakage, non-healing and/or infected incision, headaches, difficulty or inability to swallow, hoarseness, hemopneumothorax, pneumothorax, impotence, retrograde ejaculation, vaginal dryness; injury to nerves, spinal cord, blood vessels, lymphatics or other vital organs (i.e., bowel injury, injury to the great vessels); heterotopic bone formation; complications related to the hardware such as screws, rods, cages including misplaced hardware, device failure, instrumentation at the wrong spine level, hardware fracture/breakage, or hardware loosening; vertebral failure of the spinal column above or below the newly placed hardware; retained surgical instrumentations or devices and the need for further surgery. ? Medical risks of the planned spine surgery include but are not limited to generalized Infections to the whole body or local areas outside of the surgical site (sepsis), heart attack, bleeding, anaphylaxis, meningitis, seizure, epilepsy, hearing loss, burn mccain, laceration of the head or other areas of the body, bruising, hypersensitivity of the skin, bladder over distension; allergic reaction; shoulder injury related to positioning; fat, blood and air clots to other areas of the body like heart, lungs, brain; failure of internal organs such as lungs, kidneys, liver and excessive bleeding. If blood transfusions are necessary, note that transfusions may cause intolerance reactions such as anaphylaxis or other complex reactions. Despite best efforts, the results of spine surgery might not heal in terms of bone, soft tissues such as skin, fascia, ligaments, and joints. Additionally, in order to achieve best possible results, spine surgery may be carried out beyond the initially planned levels and involve decompression, fusion including insertion of hardware at levels other than the original intended area of surgical interest change some portions of the procedure in order to ensure the best possible outcomes. With spine surgery and spinal fusion, there are different off label uses of instrumentation (devices, implants and hardware) as well as biological substances (bone morphogenic proteins, demineralized bone matrix) as well as using extra bone from allograft sources (i.e. cadaver bone) or autograft (iliac crest bone, ribs, or the spine itself). The patient has been given information about these practices and their inherent risks and benefits. The patient has had a chance to review all the listed information, has been given print outs detailing this information, and has had all his/her questions answered to their satisfaction. It was my pleasure to have seen and examined Kim Youngblood. In our visit today we have had a chance to go over my understanding of our patient's current condition, the natural course history without intervention and various interventional options. Questions were invited and answered, and the patient wishes to proceed as outlined above. I have seen and examined the patient for 25 minutes and we have spent more than 50% of the time in repeat and detailed counseling about the patient's condition, its natural course history with out and as much as can be predicted with surgery and re-review of various surgical treatment options. In conclusion, Kim and her daughter requested we proceed with the above suggested surgery and are willing to accept risks and limitations of the suggested surgery as nature of the disease process and our best attempts at treatment for the condition. Thank you again for allowing us to be part of your patient's care. Please don't hesitate to contact me if you have any further questions. Signed and authenticated by: Claudio Staley [facility] [id number] [address] This message is confidential, intended only for the named recipient(s) and may contain information that is privileged or exempt from disclosure under applicable law. If you are not the intended recipient(s), you are notified that the dissemination, distribution or copying of this information is strictly prohibited. If you received this message in error, please notify the sender then delete this message. Time with Patient: Greater than 30
--- NOTE | 2020-04-16 09:04 | P.PN ---
Progress Note - Text Progress Note Date: 04/16/20 Spoke with radiology. They will not do a CT myelogram until she is off her Eliquis for 2 days. I do not feel like that we have that much time due to her impending Conus syndrome. MRI was done previously. There is a lot of artifact. It does show the stenosis at T12-L1. It is hard, however, to evaluate the lower portion of her fusion. I discussed this with the patient previously. She understood this. We will plan on decompressing her still at T12-L1 and stabilizing her.
[2020-04-16] MEDS ORDERED: PREMYELOGRAM MEDICATION REVIEW 1 EACH MISC PO NR (09:15)
--- NOTE | 2020-04-16 11:04 | XR ---
EXAMINATION TYPE: XR chest 2V DATE OF EXAM: 04/16/2020 COMPARISON: Prior chest x-ray 03/08/2020 HISTORY: Preop TECHNIQUE: Frontal and lateral views of the chest are obtained. FINDINGS: There is no focal air space opacity, pleural effusion, or pneumothorax seen. The cardiac silhouette size is within normal limits. Right hemidiaphragm is again elevated. Distal right clavicl e resection change is stable. The aorta is dense. The osseous structures are intact. IMPRESSION: No acute cardiopulmonary process.
[2020-04-16 11:25] LABS: Glucose,Whole Blood 245 mg/dL (75-99)
[2020-04-16] MEDS ORDERED: ZOLPIDEM 5 MG TAB PO PRN (11:33)
[2020-04-16] MEDS ORDERED: traMADol 50 MG TAB PO PRN (11:33)
[2020-04-16] MEDS ORDERED: HYDROcodone/APAP 10-325MG 1 EACH TAB PO PRN (11:33)
--- NOTE | 2020-04-16 11:40 | P.CONS ---
History of Present Illness - Reason for Consult Consult date: 04/16/20 medical management Requesting physician: Claudio Plummer - Chief Complaint Back pain - History of Present Illness HISTORY OF PRESENT ILLNESS This is a 80-year-old female one of Dr. Rocha patient with past medical history of type 2 diabetes, non-Hodgkin's lymphoma [place] [address] Monaco and follows with Dr. Aranda status post chemotherapy and radiation therapy, TIA 5 years ago, hypertension, hyperlipidemia, hypertension, hy pothyroidism, restless leg syndrome, recurrent depression, and osteoarthritis who has been treated for lower back pain post multiple lower back surgery and epidural injection with pain management at [facility], previous admission for acute GI bleed and acute blood loss anemia status post EGD and colonoscopy which revealed antral gastritis, area of ulceration, nonbleeding, in the distal transverse colon, pulmonary embolism and left lower leg DVT diagnosed 03/08/2020 on eliquis Patient states that she has been having ongoing problems with back pain with right foot drop and lack of bladder control. She also has some right- sided weakness. She has had 2 falls including one in which she fractured her right kneecap. She has been following with Dr. Plummer and was scheduled for back surgery next week. Patient has had increasing difficulty with her leg giving out and worsening bladder and bowel control and patient is scheduled for surgery this week. She normally uses a walker for ambulation. She states the pain has been bad for several years and radiation to her chest impacted the thoracic spine when she was undergoing treatment for lymphoma. Her last dose of eliquis was on April 15. Patient presented yesterday to [facility] ER with generalized weakness that started yesterday morning. She complains of lightheadedness and dizziness a little shortness of breath. She denied having any chest pain. She has not had any recent episodes of chest pain. She also had some tingling of the upper extremities. She did not have any loss of consciousness. No nausea or vomiting. No blurred vision. No headache. She does state that she had a l small amount of left foot and ankle swelling but not significant. She denies any recent travel. No recent diagnosis of cancer. No recent surgeries. She denies any history of atrial fibrillation. Patient was found to be afebrile, h eart rate 111, blood pressure 149/96, pulse ox 95% on room air. Orthostatics were negative. D-dimer was elevated at 1.5. Troponin -0.012. Sodium 136, potassium 3.9, chloride 107, CO2 18, BUN 15 and creatinine 0.6. Blood sugar 130. Urinalysis showed leukoesterase large, RBCs 6, wbc's 14. Urine culture is in process. WBC 7.5, hemoglobin 13.2, platelet count 144. EKG was sinus bradycardia with PACs and right bundle branch block. Chest x-ray showed no active cardiac pulmonary disease and normal heart. CT of the chest showed a small thrombus in the right lower lobe pulmonary artery. No evidence of right heart strain. Patient was started on a heparin drip and placed on the cardiac stepdown unit, consult with pulmonary medicine, echocardiogram ordered. REVIEW OF SYSTEMS Constitutional: No fever, no chills, no night sweats. No weight change. Reports weakness, reports fatigue denies lethargy. No daytime sleepiness. EENT: No headache. No blurred vision or double vision, no loss of vision. No loss of Hearing, no ringing in the ears, Reports dizziness. No nasal drainage or congestion. No epistaxis. No sore throat. Lungs: Denies shortness of breath, cough, no sputum production. No wheezing. Cardiovascular: No chest pain, no left lower extremity edema. No palpitations. No paroxysmal nocturnal dyspnea. No orthopnea. No lightheadedness or diz ziness. No syncopal episodes. Abdominal: No abdominal pain. No nausea, vomiting. No diarrhea. No constipation. No bloody or tarry stools.. No loss of appetite. Genitourinary: No dysuria, increased frequency, urgency. No urinary retention. Reports incontinence, loss of bladder control Musculoskeletal: No myalgias. Reports muscle weakness, reports gait dysfunction, reports 2 falls. Reports back pain. No neck pain. Integumentary: No wounds, no lesions. No rash or pruritus. No unusual b ruising. No change in hair or nails. Neurologic: No aphasia. No facial droop. No change in mentation. No head injury. No headache. No paralysis. No paresthesia. Psychiatric: No depression. No anxiety. No mood swings. Endocrine: No abnormal blood sugars. SOCIAL HISTORY Patient is a lifelong nonsmoker. No alcohol use, marijuana use, illicit drug use. 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 Patient lives alone and is independent, drives. FAMILY HISTORY Mother in her late 80s from breast cancer and dementia. Father at age 32 from pulmonary embolism and DVT. Patient has 2 brothers and a past, one from myocardial infarction and one from pulmonary embolism. 2 brothers are alive and one has lung cancer and one living brother has a brain aneurysm and CVA. Patient has 5 biological children with no major medical problems. PHYSICAL EXAMINATION Gen: This is A 80-year-old female. Patient is resting bed appears to be comfortable and in no acute distress. No respiratory distress is noted. HEENT: Head is atraumatic, normocephalic. Pupils equal, round. Sclerae is anicteric. NECK: Supple. No JVD. No lymphadenopathy. No thyromegaly. LUNGS: Clear to auscultation. No wheezes or rhonchi. No intercostal retractions. HEART: Regular rate and rhythm. No murmur. ABDOMEN: Soft. Bowel sounds are present. No masses. No tenderness. EXTREMITIES: No pedal edema. No calf tenderness. Dorsalis pedis palpable bilaterally. Left foot drop. NEUROLOGICAL: Patient is awake, alert and oriented x3. Cranial nerves 2 through 12 are grossly intact. ASSESSMENT AND PLAN 1. T12-L1 severe spondylosis, severe canal stenosis and impending conus syndrome. Patient admitted under the care of orthopedic spine with plan for surgical intervention on . Patient last took eliquis on April 15. Patient is cleared medically for surgical intervention on . Incentive spirometry to reduce incidence of atelectasis and hospital-acquired pneumonia. 2. Right lower lobe pulmonary embolism. Eliquis on hold 2 days prior to surgical intervention. Patient will resume eliquis once cleared by surgeon following surgical procedure. 3. Diabetes mellitus type 2. Hemoglobin A1c in November was 6.8. Patient will be on NovoLog scale before meals and at bedtime. 4. Non-Hodgkin's lymphoma [place] [address] Monaco and follows with Dr. Aranda, in remission. 5. History of TIA with no deficits. 6. History of GI bleed secondary to colon ulcer in November 2019 without recurrence. Continue Protonix. 7. Hypertension. Hold amlodipine 5 mg daily, continue atenolol 50 mg twice daily. 8. Hypothyroidism. Continue levothyroxine 12.5 g daily. 9. Seasonal ALLERGIES. Continue Singulair 10 mg at bedtime. 10. Recurrent depression. Continue Prozac 30 mg daily. 11. Chronic gout. Continue allopurinol 100 mg daily. 12. Hyperlipidemia. Patient is not currently on statin. 13. Restless leg syndrome. Continue Requip. 14. GERD and GI prophylaxis. Protonix Patient will be admitted to the hospital for a minimum of 2 night stay. Discharge plan: Most likely will require subacute rehab. Impression and plan of care have been directed as dictated by the signing physician. Karen Quintero nurse practitioner acting as scribe for signing physician. Past Medical History Past Medical History: Cancer, Diabetes Mellitus, Deep Vein Thrombosis (DVT), GERD/Reflux, Hyperlipidemia, Hypertension, Osteoarthritis (OA), Pulmonary Embolus (PE), Syncope Additional Past Medical History / Comment(s): TIA X2, SYNCOPE in 2013, VARICOSE VEINS, GOUT, LYMPHOMA (HX OF CHEMO & RADIATION 1977,1982 & 1993) History of Any Multi-Drug Resistant Organisms: None Reported Past Surgical History: Back Surgery, Cholecystectomy, Hysterectomy, Joint Repl acement, Orthopedic Surgery Additional Past Surgical History / Comment(s): RIGHT HIP REPAIR, LEFT KNEE REPLACEMENT, HAND & FOOT SURG, BREAST & AXILLARY BX, TUMOR IN THROAT REMOVED., CERVICAL FUSION, 02-07-15 LUMBAR LAMINECTOMY,DECOMPRESSION-FUSION L1-L2., right knee replaced 07-31-19 Past Anesthesia/Blood Transfusion Reactions: No Reported Reaction Additional Past Anesthesia/Blood Transfusion Reaction / Comm: CLAUSTROPHOBIA Past Psychological History: Anxiety, Depression Additional Psychological History / Comment(s): (end of 2019) Smoking Status: Never smoker Past Alcohol Use History: None Reported Past Drug Use History: None Reported - Past Family History Father Family Medical History: Deep Vein Thrombosis (DVT) Additional Family Medical History / Comment(s): Father at age 32 from pulmonary embolism. Mother Family Medical History: Cancer Additional Family Medical History / Comment(s): Mother in her late 80s from breast cancer and also had dementia. Brother(s) Family Medical History: Cancer, Deep Vein Thrombosis (DVT) Additional Family Medical History / Comment(s): Patient had 2 brothers that have passed one from myocardial infarction and one from pulmonary embolism. 2 brothers are alive and one has lung cancer, one brother is alive with a brain aneurysm and CVA. Medications and Allergies Home Medications Medication Instructions Recorded Confirmed Type Calcium Carb-Vit D 500Mg-200Un 1 tab PO DAILY 01/05/14 04/15/20 History [Oscal 500+D] allopurinoL [Zyloprim] 100 mg PO DAILY 01/05/14 04/15/20 History amLODIPine BESYLATE [Norvasc] 5 mg PO DAILY 01/05/14 04/15/20 History atenoloL [Tenormin] 50 mg PO BID 01/05/14 04/15/20 History Levothyroxine Sodium [Synthroid] 12.5 mcg PO DAILY 03/16/14 04/15/20 History Zolpidem [Ambien] 5 mg PO HS PRN 03/16/14 04/15/20 History Potassium Chloride 10 meq PO DAILY 07/21/19 04/15/20 History HYDROcodone/APAP 10-325MG [[place] 1 tab PO Q8H PRN 11/24/19 04/15/20 History 10-325] FLUoxetine HCL [PROzac] 10 mg PO DAILY 03/08/20 04/15/20 History FLUoxetine HCL [PROzac] 20 mg PO DAILY 03/08/20 04/15/20 History Montelukast Sodium [Singulair] 10 mg PO HS 03/08/20 04/15/20 History Omeprazole [PriLOSEC] 40 mg PO BID 03/08/20 04/15/20 History traMADol HCL 50 mg PO TID PRN 03/08/20 04/15/20 History Apixaban [Eliquis Starter Pack See Taper PO BID 03/16/20 04/15/20 History (for VTE)] rOPINIRole HCL [Requip] 2 mg PO BID 03/16/20 04/15/20 History Ipratropium [place] 0.06%Nasal 2 spray EA NOSTRIL BID 04/15/20 04/15/20 History [Atrovent Nasal 0.06%] Allergies Allergy/AdvReac Type Severity Reaction Status Date / Time adhesive Allergy red skin, Verified 04/15/20 22:23 blisters cefaclor [From Ceclor] Allergy Rash/Hives Verified 04/15/20 22:23 ciprofloxacin [From Cipro] Allergy Rash/Hives Verified 04/15/20 22:23 ciprofloxacin HCl Allergy Rash/Hives Verified 04/15/20 22:23 [From Cipro] hydromorphone HCl Allergy Anaphylaxis Verified 04/15/20 22:23 [From Dilaudid] Penicillins Allergy Rash/Hives Verified 04/15/20 22:23 sulfamethoxazole AdvReac Abdominal Verified 04/15/20 22:23 [From Bactrim] Pain trimethoprim [From Bactrim] AdvReac Abdominal Verified 04/15/20 22:23 Pain Physical Exam Vitals: Vital Signs Temp Pulse Pulse Resp BP BP Pulse Ox 04/16/20 04:59 98.1 F 106 H 18 93/62 95 04/15/20 22:15 104 H 18 114/82 98 04/15/20 21:36 18 04/15/20 21:35 109/91 04/15/20 20:22 98.1 F 114 H 18 151/90 96 Intake and Output 04/15/20 04/16/20 04/16/20 22:59 06:59 14:59 Other: Voiding Method Toilet # Voids 3 Weight 62.596 kg 62.596 kg Results CBC & Chem 7: 04/15/20 21:12 04/15/20 21:12 Labs: Abnormal Lab Results - Last 24 Hours (Table) 04/15/20 04/15/20 04/15/20 Range/Units 21:12 21:12 21:12 RDW 15.8 H (11.5-15.5) % Lymphocytes # (Manual) 0.57 L (1.0-4.8) k/uL Metamyelocytes # (Man) 0.21 H (0) k/uL Myelocytes # (Manual) 0.21 H (0) k/uL APTT 21.9 L (22.0-30.0) sec Chloride 111 H (98-107) mmol/L Carbon Dioxide 21 L (22-30) mmol/L BUN 20 H (7-17) mg/dL Glucose 275 H (74-99) mg/dL POC Glucose (mg/dL) (75-99) mg/dL 04/16/20 Range/Units 07:02 RDW (11.5-15.5) % Lymphocytes # (Manual) (1.0-4.8) k/uL Metamyelocytes # (Man) (0) k/uL Myelocytes # (Manual) (0) k/uL APTT (22.0-30.0) sec Chloride (98-107) mmol/L Carbon Dioxide (22-30) mmol/L BUN (7-17) mg/dL Glucose (74-99) mg/dL POC Glucose (mg/dL) 313 H (75-99) mg/dL
[2020-04-16] MEDS ORDERED: FLUoxetine HCL 10 MG CAP PO SCH ×2 (11:45)
[2020-04-16] MEDS: allopurinoL 100 MG TAB PO SCH (12:15)
--- NOTE | 2020-04-16 12:41 | P.CNPUL ---
History of Present Illness Consult date: 04/16/20 Requesting physician: Claudio Plummer Reason for consult: other Chief complaint: Right lower leg weakness, bladder incontinence History of present illness: This is a 72-year-old white female patient of Dr. Rocha, who we had recently seen in consultation on 03/09/2020 1 patient was hospitalized with the right lower lobe pulmonary embolism, which was unprovoked, and acute on chronic DVT involving the left lower extremity. Patient at that time was started on Eliquis. Other medical history includes history of non-Hodgkin's lymphoma which has been in remission since 1993, family history of thromboembolic disease and pulmonary embolism with the factor V Leiden mutation, type 2 diabetes, history of GI bleeding, DJD, hypertension, hypothyroidism, history of TIA and chronic low back pain. She was seen in follow-up by Dr. Rosario in the office, and patient was planning on having surgery on her back, and the plan was to continue with the 3 months of anticoagulation prior to surgery. On 04/15/2020 patient presented to the emergency department per EMS with complaints of lower back pa in, significant weakness in the right leg, with foot drop, and one episode of urinary incontinence. CT of the thoracic and lumbar spine shows multilevel posterior fusion surgery, spinal stenosis present at T12 to L1 with bony metastases in the spinal canal anteriorly on the left side but no acute f racture. Today she is having increased loss of sensation in the right lower extremity. She was evaluated by Dr. Plummer, who diagnosed the patient with the T12 to L1 severe spondylosis, T12 to L1 disc osteophyte complex with severe canal stenosis and impending conus syndrome, and recommended surgery with L1-2 removal of hardware with T12 to L2 decompression and fusion. Dr. Edward's and discussed the case with Dr. Rosario, and in view of rapid progression disabling nature of patient's symptoms, patient is cleared for surgery from pulmonary perspective and the recommendation to hold Eliquis for 1-2 days prior to surgery. Patient is currently not complaining of any pulmonary complaints, she is on room air with pulse ox of 95-98%, hemodynamically patient is stable. She has received at least 5 weeks of anticoagulation. Today's chest x-ray shows no acute cardiopulmonary process. Her labs have been reviewed, showing white blood cell count of 7.1, hemoglobin of 13.7, sodium 139, potassium 3.7, chloride is 111, CO2 is 21, BUN of 20 creatinine 0.76, LFTs were within normal limits. V itals signs have been stable. Review of Systems All systems: negative Constitutional: Denies chills, Denies fever Eyes: denies blurred vision, denies pain Ears, nose, mouth and throat: Denies headache, Denies sore throat Cardiovascular: Denies chest pain, Denies shortness of breath Respiratory: Reports dyspnea, Denies cough Gastrointestinal: Denies abdominal pain, Denies diarrhea, Denies nausea, Denies vomiting Genitourinary: Denies dysuria, Denies hematuria Musculoskeletal: Reports leg numbness/tingling, Reports muscle weakness, Denies myalgias Integumentary: Denies pruritus, Denies rash Neurological: Reports numbness, Reports weakness Psychiatric: Denies anxiety, Denies depression Endocrine: Denies fatigue, Denies weight change Past Medical History Past Medical History: Cancer, Diabetes Mellitus, Deep Vein Thrombosis (DVT), GERD/Reflux, Hyperlipidemia, Hypertension, Osteoarthritis (OA), Pulmonary Embolus (PE), Syncope Additional Past Medical History / Comment(s): TIA X2, SYNCOPE in 2013, VARICOSE VEINS, GOUT, LYMPHOMA (HX OF CHEMO & RADIATION 1977,1982 & 1993) History of Any Multi-Drug Resistant Organisms: None Reported Past Surgical History: Back Surgery, Cholecystectomy, Hysterectomy, Joint Replacement, Orthopedic Surgery Additional Past Surgical History / Comment(s): RIGHT HIP REPAIR, LEFT KNEE REPLACEMENT, HAND & FOOT SURG, BREAST & AXILLARY BX, TUMOR IN THROAT REMOVED., CERVICAL FUSION, 02-07- LUMBAR LAMINECTOMY,DECOMPRESSION-FUSION L1-L2., right knee replaced 07-31-19 Past Anesthesia/Blood Transfusion Reactions: No Reported Reaction Additional Past Anesthesia/Blood Transfusion Reaction / Comment(s): CLAUSTROPHOBIA Past Psychological History: Anxiety, Depression Additional Psychological History / Comment(s): (end of 2019) Smoking Status: Never smoker Past Alcohol Use History: None Reported Past Drug Use History: None Reported - Past Family History Father Family Medical History: Deep Vein Thrombosis (DVT) Additional Family Medical History / Comment(s): Father at age 32 from pulmonary embolism. Mother Family Medical History: Cancer Additional Family Medical History / Comment(s): Mother in her late 80s from breast cancer and also had dementia. Brother(s) Family Medical History: Cancer, Deep Vein Thrombosis (DVT) Additional Family Medical History / Comment(s): Patient had 2 brothers that have passed one from myocardial infarction and one from pulmonary embolism. 2 b rothers are alive and one has lung cancer, one brother is alive with a brain aneurysm and CVA. Medications and Allergies Home Medications Medication Instructions Recorded Confirmed Type Calcium Carb-Vit D 500Mg-200Un 1 tab PO DAILY 01/05/14 04/15/20 History [Oscal 500+D] allopurinoL [Zyloprim] 100 mg PO DAILY 01/05/14 04/15/20 History amLODIPine BESYLATE [Norvasc] 5 mg PO DAILY 01/05/14 04/15/20 History atenoloL [Tenormin] 50 mg PO BID 01/05/14 04/15/20 History Levothyroxine Sodium [Synthroid] 12.5 mcg PO DAILY 03/16/14 04/15/20 History Zolpidem [Ambien] 5 mg PO HS PRN 03/16/14 04/15/20 History Potassium Chloride 10 meq PO DAILY 07/21/19 04/15/20 History HYDROcodone/APAP 10-325MG [[place] 1 tab PO Q8H PRN 11/24/19 04/15/20 History 10-325] FLUoxetine HCL [PROzac] 10 mg PO DAILY 03/08/20 04/15/20 History FLUoxetine HCL [PROzac] 20 mg PO DAILY 03/08/20 04/15/20 History Montelukast Sodium [Singulair] 10 mg PO HS 03/08/20 04/15/20 History Omeprazole [PriLOSEC] 40 mg PO BID 03/08/20 04/15/20 History traMADol HCL 50 mg PO TID PRN 03/08/20 04/15/20 History Apixaban [Eliquis Starter Pack See Taper PO BID 03/16/20 04/15/20 History (for VTE)] rOPINIRole HCL [Requip] 2 mg PO BID 03/16/20 04/15/20 History Ipratropium [place] 0.06%Nasal 2 spray EA NOSTRIL BID 04/15/20 04/15/20 History [Atrovent Nasal 0.06%] Allergies Allergy/AdvReac Type Severity Reaction Status Date / Time adhesive Allergy red skin, Verified 04/15/20 22:23 blisters cefaclor [From Ceclor] Allergy Rash/Hives Verified 04/15/20 22:23 ciprofloxacin [From Cipro] Allergy Rash/Hives Verified 04/15/20 22:23 ciprofloxacin HCl Allergy Rash/Hives Verified 04/15/20 22:23 [From Cipro] hydromorphone HCl Allergy Anaphylaxis Verified 04/15/20 22:23 [From Dilaudid] Penicillins Allergy Rash/Hives Verified 04/15/20 22:23 sulfamethoxazole AdvReac Abdominal Verified 04/15/20 22:23 [From Bactrim] Pain trimethoprim [From Bactrim] AdvReac Abdominal Verified 04/15/20 22:23 Pain Physical Exam Vitals: Vital Signs Temp Pulse Pulse Resp BP BP Pulse Ox 04/16/20 11:42 98.2 F 102 H 16 100/62 94 L 04/16/20 04:59 98.1 F 106 H 18 93/62 95 04/15/20 22:15 104 H 18 114/82 98 04/15/20 21:36 18 04/15/20 21:35 109/91 04/15/20 20:22 98.1 F 114 H 18 151/90 96 Intake and Output 04/15/20 04/16/20 04/16/20 22:59 06:59 14:59 Other: Voiding Method Toilet Toilet # Voids 3 Weight 62.596 kg 62.596 kg GENERAL EXAM: Alert, active, 80-year-old white female, on room air, resting in bed, pulse ox is 94-98% comfortable in no apparent distress. HEAD: Normocephalic/atraumatic. EYES: Normal reaction of pupils, equal size. Conjunctiva pink, sclera white. NOSE: Clear with pink turbinates. THROAT: No erythema or exudates. NECK: No masses, no JVD, no thyroid enlargement, no adenopathy. CHEST: No chest wall deformity. Symmetrical expansion. LUNGS: Equal air entry with no crackles, wheeze, rhonchi or dullness. CVS: Regular rate and rhythm, normal S1 and S2, no gallops, no murmurs, no rubs ABDOMEN: Soft, nontender. No hepatosplenomegaly, normal bowel sounds, no guarding or rigidity. EXTREMITIES: No clubbing, no edema, no cyanosis, 2+ pulses and upper and lower extremities. Right plantar weakness noted, diminished sensation in the right leg below the knee MUSCULOSKELETAL: Muscle strength and tone normal. SPINE: No scoliosis or deformity SKIN: No rashes CENTRAL NERVOUS SYSTEM: Alert and oriented -3. No focal deficits, tone is normal in all 4 extremities. PSYCHIATRIC: Alert and oriented -3. Appropriate affect. Intact judgment and insight. Results - Laboratory Findings CBC and BMP: 04/15/20 21:12 04/15/20 21:12 PT/INR, D-dimer PT 10.3 sec (9.0-12.0) 04/15/20 21:12 INR 1.0 (<1.2) 04/15/20 21:12 Abnormal lab findings: Abnormal Labs 04/15/20 04/15/20 04/15/20 21:12 21:12 21:12 RDW 15.8 H Lymphocytes # (Manual) 0.57 L Metamyelocytes # (Man) 0.21 H Myelocytes # (Manual) 0.21 H APTT 21.9 L Chloride 111 H Carbon Dioxide 21 L BUN 20 H Glucose 275 H POC Glucose (mg/dL) 04/16/20 04/16/20 07:02 11:24 RDW Lymphocytes # (Manual) Metamyelocytes # (Man) Myelocytes # (Manual) APTT Chloride Carbon Dioxide BUN Glucose POC Glucose (mg/dL) 313 H 245 H - Diagnostic Findings Chest x-ray: report reviewed, image reviewed Additional studies: Results of the thoracic/lumbar spine CT reviewed Assessment and Plan Plan: Assessment: #1. Right leg weakness, diminished sensation, urinary incontinence, related to T12 to L1 severe spondylosis, T12 to L1 disc osteophyte complex with severe canal stenosis and impending conus syndrome #2. Recent history of acute unprovoked pulmonary embolism and acute on chronic left lower extremity DVT, patient was started on Eliquis and so far has received approximately 5 weeks worth of anticoagulation. In view of neurological deficit progression and disabling nature of her symptoms, patient is scheduled for surgery with L1 through 2 removal of hardware with T12 to L2 decompression and fusion on 04/17/[address] Edward's and #3. Family history of thromboembolic disease, and hypercoagulable state with possibility of factor V mutation #4. Chronic low back pain #5. History of CVA/TIA #6. History of non-Hodgkin's lymphoma this posttreatment and has been in remission since 1993 #7. History of hypothyroidism #8. Osteoarthritis #9. Diabetes mellitus type 2 Plan: Anticoagulation has been on hold, discussed the case with the orthopedic surgery on the case, from pulmonary perspective patient is cleared for surgery, ideally we would've liked for her to receive 3 months worth of anticoagulation however in view of progressive and debilitating neurological symptoms, the plan is to proceed with the surgery, and place Eliquis on hold for 1 or 2 days prior to surgery. We will follow the patient in the postoperative period. Currently is not having any pulmonary symptoms, stable oxygenation on room air I performed a history & physical examination of the patient and discussed their management with my nurse practitioner, Shae Mark. I reviewed the nurse practitioner's note and agree with the documented findings and plan of care. Lung sounds are positive for clear breath sounds. The findings and the impression was discussed with the patient. I attest to the documentation by the nurse practitioner. Time with Patient: Greater than 30
[2020-04-16] MEDS: INSULIN ASPART (NovoLOG) 100 UNIT/ML VIAL SQ SCH ×3 (12:56→21:09)
[2020-04-16 16:49] LABS: Glucose,Whole Blood 171 mg/dL (75-99)
[2020-04-16 17:35] LABS: Hemoglobin A1C 8.1 % (4.0-6.0)
[2020-04-16 19:55] LABS: Glucose,Whole Blood 184 mg/dL (75-99)
[2020-04-16] MEDS ORDERED: MONTELUKAST 10 MG TAB PO SCH (21:00)
[2020-04-16] MEDS: atenoloL 50 MG TAB PO SCH (21:10)
[2020-04-16] MEDS: IPRATROPIUM BROMIDE 0.06% NASAL SPRAY (15 ML) EA NOSTRIL SCH (21:51)
[2020-04-17] MEDS ORDERED: LEVOTHYROXINE 25 MCG TAB PO SCH (06:30)
[2020-04-17] MEDS: SODIUM CHLORIDE 0.9% 1,000 ML IV SCH (06:51)
[2020-04-17 06:55] LABS: Glucose,Whole Blood 123 mg/dL (75-99)
[2020-04-17] MEDS: INSULIN ASPART (NovoLOG) 100 UNIT/ML VIAL SQ SCH ×3 (06:56→14:09)
[2020-04-17] MEDS: allopurinoL 100 MG TAB PO SCH (07:50)
[2020-04-17] MEDS: PANTOPRAZOLE 40 MG/10 ML VIAL IV SCH (07:50)
[2020-04-17] MEDS: atenoloL 50 MG TAB PO SCH (07:50)
[2020-04-17] MEDS: IPRATROPIUM BROMIDE 0.06% NASAL SPRAY (15 ML) EA NOSTRIL SCH (07:50)
[2020-04-17] MEDS: MORPHINE SULFATE 4 MG/ML SYRINGE IV PRN ×2 (07:52→14:26)
--- NOTE | 2020-04-17 07:55 | P.PN ---
Subjective Progress Note Date: 04/17/20 Principal diagnosis: T12-L1 severe stenosis with impending conus syndrome and RLE weakness Patient was seen and examined this morning. She is doing okay this morning and pain is better controlled. She has been up to the bathroom however, right lower extremity is still very weak. She denies any new bowel or bladder symptoms. She denies any new numbness or tingling in her genital region. However, it is still present currently. She denies any fevers, chills shortness of breath or chest pain at this time. Medicine and pulmonology consults and recommendations are appreciated. Notes have been reviewed. Objective - Vital Signs Vital signs: Vital Signs Temp 97.7 F 04/17/20 04:32 Pulse 83 04/17/20 04:32 Resp 16 04/17/20 04:32 BP 108/71 04/17/20 04:32 Pulse Ox 96 04/17/20 04:32 Intake & Output 04/16/20 04/17/20 04/17/20 18:59 06:59 18:59 Intake Total 575 Balance 575 Intake: Intake, IV Titration 575 Amount Sodium Chloride 0.9% 1, 575 000 ml @ 50 mls/hr IV . Q20H [facility] Rx#:[id number] Other: Voiding Method Incontinent Toilet Incontinent # Voids 4 1 - Exam Exam is stable. There is no change currently. VASCULAR STATUS : RIGHT LEFT Wrist Pulses intact intact Pedal Pulses (Dors. pedis & post.tibialis) intact intact Color normal normal Edema Absent Absent MOTOR EXAM (0-5/5, N/T) STRENGTH RIGHT LEFT Shoulder Abd (not part of the LEONA score) 5 5 Elbow Flexors 5 5 Elbow Extensor 5 5 Wrist Dorsiflexors 5 5 Finger Abductor 5 5 Training And Development Manager 5 5 Hip Flexor (Not part of LEONA Motor score) 5 5 Knee Flexor 5 4+ Knee Extensor 5 2 Ankle dorsiflexor 5 1 Ankle plantarflexion 5 3 Extensor hallucis 5 1 REFLEXES(0-4/2, NT) RIGHTLEFT Upper Extremities 2 2 Lower Extremities 2 2 Pathol ogical ReflexesRIGHTLEFT Franklin's Absent Absent Clonus Absent Absent CN II-XII grossly intact. Negative babinski b/l Sensation is intact to light touch and pain in the lower extremity is bilaterally in the L2 to S1 nerve distribution. - Respiratory Respiratory: negative: wheezing - Neurologic Neurologic: Present: CNII-XII intact - Musculoskeletal Musculoskeletal: Present: right sided weakness (CT myelogram of the thoracic and lumbar spine is pending) - Labs CBC & Chem 7: 04/15/20 21:12 04/15/20 21:12 Labs: Abnormal Lab Results - Last 24 Hours (Table) 04/15/20 04/16/20 04/16/20 Range/Units 21:12 11:24 16:48 POC Glucose (mg/dL) 245 H 171 H (75-99) mg/dL Hemoglobin A1c 8.1 H (4.0-6.0) % 04/16/20 04/17/20 Range/Units 19:53 06:53 POC Glucose (mg/dL) 184 H 123 H (75-99) mg/dL Hemoglobin A1c (4.0-6.0) % Assessment and Plan Assessment: 1. T12-L1 severe spondylosis. 2. 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 Adjacent segment disease T12-L1 4. R foot drop Plan: 1.Revision surgery with removal of hardware L1-2 with T12-L2 posterior instr umented fusion, T12-L1 interbody fusion, Decompressive laminectomy lf T12-L2 with disc osteophyte removal T12-L1 with possible exploration of fusion and decompression of L2-S1 with Removal of hardware and reinstrumentation of L2-S1. Patient is confirmed nothing by mouth. She will go to CT myelogram this morning. We plan on surgery around 1:30 to 2:00 this afternoon. I discussed with the patient at length again this morning about the options for surgery versus nonsurgical as well as a larger versus smaller surgery. I have spoken and reviewed the notes of the consulting physicians and appreciate their input. The patient has an extremely high risk for a larger surgery. However, if we can prevent any progression of bowel or bladder symptoms as well as continued lower extremity weakness by decompressing around the conus area. I believe that we will achieve a stable result. I discussed this with the patient and again made no guarantees that her right lower extremity will get stronger. The CT myelogram will help us plan and look at any other areas that may need to be decompressed. Upon further review of her MRI due to artifact. It is very difficult to determine if there is any stenosis surrounding the nerves of L3, L4, L5 on the right-hand side as this may serve the lower extremity in the areas where she has weakest. I discussed this with her. She understood and said that she would like to go forward with the smaller surgery and attempts to achieve a stable result, prevent any progression of her bowel or bladder symptoms, prevent any progression of her lower extremity weakness but understands that her right lower extremity may not get better at this point. She understands that she may need more surgery in the future once she is more medically stable. I reviewed again the risks as documented previously with the patient and she was comfortable with these. I offered to call her family, she denied this as she states she talks to them very frequently and they were all on board with performing surgery today. I will speak to her daughter, Afterwards, who she states will be present for the surgery. If they have any questions or she has any questions please do not hesitate to contact me. We will plan to move forward today.
[2020-04-17] MEDS ORDERED: HYDROmorphone 0.5 MG/0.5 ML SYRINGE IVP ONE (10:54)
[2020-04-17] MEDS ORDERED: VANCOMYCIN 1,000 MG in SODIUM CHLORIDE 0.9% 250 ML IVPB ONE (11:00)
[2020-04-17 12:27] LABS: Glucose,Whole Blood 115 mg/dL (75-99)
--- NOTE | 2020-04-17 13:59 | P.PN ---
Subjective Progress Note Date: 04/17/20 HISTORY OF PRESENT ILLNESS This is a 80-year-old female one of Dr. Rocha patient with past medical history of type 2 diabetes, non-Hodgkin's lymphoma [place] [address] Monaco and follows with Dr. Aranda status post chemotherapy and radiation therapy, TIA 5 years ago, hypertension, hyperlipidemia, hypertension, hypothyroidism, restless leg syndrome, recurrent depression, and osteoarthritis who has been treated for lower back pain post multiple lower back surgery and epidural injection with pain management at [facility], previous admission for acute GI bleed and acute blood loss anemia status post EGD and colonoscopy which revealed antral gastritis, area of ulceration, nonbleeding, in the distal transverse colon, pulmonary embolism and left lower leg DVT diagnosed 03/08/2020 on eliquis Patient states that she has been having ongoing problems with back pain with right foot drop and lack of bladder control. She also has some right- sided weakness. She has had 2 falls including one in which she fractured her right kneecap. She has been following with Dr. Plummer and was scheduled for back surgery next week. Patient has had increasing difficulty with her leg giving out and worsening bladder and bowel control and patient is scheduled for surgery this week. She normally uses a walker for ambulation. She states the pain has been bad for several years and radiation to her chest impacted the thoracic spine when she was undergoing treatment for lymphoma. Her last dose of eliquis was on April 15. 04/17: Patient is scheduled for myelogram prior to surgical today. She has been seen by pulmonary medicine. She denies any new complaints. No shortness of breath. Patient has been afebrile, heart rate 90, blood pressure 120/79, pulse ox 96% on room air. Blood sugars are running between 123-184. REVIEW OF SYSTEMS Constitutional: No fever, no chills, no night sweats. No weight change. Reports weakness, reports fatigue denies lethargy. No daytime sleepiness. EENT: No headache. No blurred vision or double vision, no loss of vision. No loss of Hearing, no ringing in the ears, Reports dizziness. No nasal drainage or congestion. No epistaxis. No sore throat. Lungs: Denies shortness of breath, cough, no sputum production. No wheezing. Cardiovascular: No chest pain, no left lower extremity edema. No palpitations. No paroxysmal nocturnal dyspnea. No orthopnea. No lightheadedness or dizziness. No syncopal episodes. Abdominal: No abdominal pain. No nausea, vomiting. No diarrhea. No constipation. No bloody or tarry stools.. No loss of appetite. Genitourinary: No dysuria, increased frequency, urgency. No urinary retention. Reports incontinence, loss of bladder control Musculoskeletal: No myalgias. Reports muscle weakness, reports gait dysfunction, reports 2 falls. Reports back pain. No neck pain. Integumentary: No wounds, no lesions. No rash or pruritus. No unusual bruising. No change in hair or nails. Neurologic: No aphasia. No facial droop. No change in mentation. No head injury. No headache. No paralysis. No paresthesia. Psychiatric: No depression. No anxiety. Endocrine: No abnormal blood sugars. PHYSICAL EXAMINATION Gen: This is A 80-year-old female. Patient is resting bed appears to be comfortable and in no acute distress. No respiratory distress is noted. HEENT: Head is atraumatic, normocephalic. Pupils equal, round. Sclerae is anicteric. NECK: Supple. No JVD. No lymphadenopathy. No thyromegaly. LUNGS: Clear to auscultation. No wheezes or rhonchi. No intercostal retractions. HEART: Regular rate and rhythm. No murmur. ABDOMEN: Soft. Bowel sounds are present. No masses. No tenderness. EXTREMITIES: No pedal edema. No calf tenderness. Dorsalis pedis palpable bilaterally. Left foot drop. NEUROLOGICAL: Patient is awake, alert and oriented x3. Cranial nerves 2 through 12 are grossly intact. ASSESSMENT AND PLAN 1. T12-L1 severe spondylosis, severe canal stenosis and impending conus syndrome. Patient admitted under the care of orthopedic spine with plan for surgical intervention on . Patient last took eliquis on April 15. Patient is cleared medically for surgical intervention scheduled today. Incentive spirometry to reduce incidence of atelectasis and hospital-acquired pneumonia. 2. Right lower lobe pulmonary embolism. Eliquis on hold 2 days prior to surgical intervention. Patient will resume eliquis once cleared by surgeon following surgical procedure. 3. Diabetes mellitus type 2. Hemoglobin A1c in November was 6.8. Patient will be on NovoLog scale before meals and at bedtime. 4. Non-Hodgkin's lymphoma [place] [address] Monaco and follows with Dr. Aranda, in remission. 5. History of TIA with no deficits. 6. History of GI bleed secondary to colon ulcer in November 2019 without recurrence. Continue Protonix. 7. Hypertension. Hold amlodipine 5 mg daily, continue atenolol 50 mg twice daily. 8. Hypothyroidism. Continue levothyroxine 12.5 g daily. 9. Seasonal ALLERGIES. Continue Singulair 10 mg at bedtime. 10. Recurrent depression. Continue Prozac 30 mg daily. 11. Chronic gout. Continue allopurinol 100 mg daily. 12. Hyperlipidemia. Patient is not currently on statin. 13. Restless leg syndrome. Continue Requip. 14. GERD and GI prophylaxis. Protonix Discharge plan: Most likely will require subacute rehab. Impression and plan of care have been directed as dictated by the signing physician. Karen Quintero nurse practitioner acting as scribe for signing physician. Objective - Vital Signs Vital signs: Vital Signs Temp 97.7 F 04/17/20 04:32 Pulse 83 04/17/20 04:32 Resp 16 04/17/20 04:32 BP 108/71 04/17/20 04:32 Pulse Ox 96 04/17/20 04:32 Intake & Output 04/16/20 04/17/20 04/17/20 18:59 06:59 18:59 Intake Total 575 Balance 575 Intake: Intake, IV Titration 575 Amount Sodium Chloride 0.9% 1, 575 000 ml @ 50 mls/hr IV . Q20H [facility] Rx#:[id number] Other: Voiding Method Incontinent Toilet Incontinent # Voids 4 1 - Labs CBC & Chem 7: 04/15/20 21:12 04/15/20 21:12 Labs: Abnormal Lab Results - Last 24 Hours (Table) 04/15/20 04/16/20 04/16/20 Range/Units 21:12 11:24 16:48 POC Glucose (mg/dL) 245 H 171 H (75-99) mg/dL Hemoglobin A1c 8.1 H (4.0-6.0) % 04/16/20 04/17/20 Range/Units 19:53 06:53 POC Glucose (mg/dL) 184 H 123 H (75-99) mg/dL Hemoglobin A1c (4.0-6.0) %
--- NOTE | 2020-04-17 15:09 | FL ---
Lumbar puncture and Myelogram. INDICATION: Pain FINDINGS: Fluoroscopy time: 1 minute 38 seconds. Images obtained: 10. The procedure was explained to the patient. Risks complications and benefits were discussed. The risk of bleeding was specifically discussed. Alternatives were discussed. All questions were answered. In formed consent was obtained. A timeout was performed. Prior CT lumbar spine of 04/15/2020 is reviewed. The L4-5 level was chosen for access. Maximum barrier sterile technique was utilized. The skin was cleansed with Betadine and the patient sterilely preppe d and draped in the usual manner. The skin and deeper tissue was anesthetized with 1% Lidocaine. Util izing a 22-gauge spinal needle the spinal canal was placed. Attempts to successfully access the theca l sac were unsuccessful. Utilizing an additional 1% lidocaine and a new 22-gauge needle the L3-4 leve l was accessed with difficulty. Good CSF return was evident. Isovue-200 M was utilized, 10 millilite rs was administered under fluoroscopic observation. The stylette was replaced and the needle withdraw n. Fluoroscopic spot images were obtained. The patient tolerated the procedure well. Discharge instructions were discussed with the patient. Th e patient was transferred to CT for additional evaluation. Findings: Limited views of the lumbar spinal canal with contrast were obtained. There is a filling d efect along the left lateral portion of the lumbar spine at the L1 level multiple attempts to have co ntrast passes beyond this level including significant downward tipping of the table were unsuccessful to get is free spill past this level on fluoroscopy. IMPRESSIONS: 1. Successful Lumbar Puncture. 2. Right left side filling defect L1 level. Retrograde contrast beyond this level of the thoracic spi ne was unsuccessful
[2020-04-17] MEDS ORDERED: LACTATED RINGERS 1,000 ML IV ONE ×4 (15:20→21:25)
[2020-04-17] MEDS ORDERED: DEXAMETHASONE SOD PHOSPHATE 10 MG/ML 1 ML VIAL IV ONE (15:31)
[2020-04-17] MEDS ORDERED: LIDOCAINE 1% (10MG/ML) FOR IV START INTRADERMA ONE (15:31)
[2020-04-17] MEDS ORDERED: ONDANSETRON 4 MG/2 ML VIAL IVP ONE (15:31)
[2020-04-17] MEDS ORDERED: ONDANSETRON 4 MG/2 ML VIAL ONE (15:32)
[2020-04-17 15:37] LABS: Glucose,Whole Blood 100 mg/dL (75-99)
--- NOTE | 2020-04-17 16:18 | CT ---
EXAMINATION TYPE: CT thor lumbar spine w con DATE OF EXAM: 04/17/2020 COMPARISON: 04/15/2020 HISTORY: Post myelogram CT DLP: 513.1 mGycm CONTRAST: CT scan of the lumbar is performed with intrathecal contrast. TECHNIQUE: CT of the lumbar spine is performed on a spiral scan at 3 mm thick sections. Reconstructed images are performed in the coronal and sagittal planes. FINDINGS: Thoracic spine: Attempts to maneuver contrast in the thoracic spinal canal were unsuccessful on the f luoroscopy table. Small amount effusion however is evident with contrast within the dependent portion s of the thoracic spinal canal. Spinal cord can be identified with some contrast present to the upper portion of the thoracic spine. No suspicious spinal canal stenosis within the thoracic spine is iden tified. Lumbar spine: There appears be an extradural defect in the epidural space causing moderate to marked left paracentr al thecal sac compression. Series 8 image 61. This lies posterior to the L1 level. This area correspo nds to the abnormality on fluoroscopy. There is likely displacement of the nerve roots within the the bertha sac on the left. Cord contact is not identified. L2-L5 thecal sac appears without extradural defect or spinal canal stenosis. Pedicle screws are prese nt L4 and L5 and L1 and L2. IMPRESSION: 1.1 cm AP dimension x 1.7 cm craniocaudal dimension in the left paracentral region with moderate to marked thecal sac compression at the L1 level. This appears to be extra dural. Large sequestered disc may be present. Disc herniation from the T12-L1 level should be considered.
[2020-04-17] MEDS ORDERED: GLYCOPYRROLATE 0.2 MG/ML 2 ML VIAL ONE (17:24)
[2020-04-17] MEDS ORDERED: HEPARIN SODIUM,PORCINE 10,000 UNIT/ML 1 ML VIAL ONE (17:24)
[2020-04-17] MEDS ORDERED: PROPOFOL 10 MG/ML 20 ML VIAL IV ONE (17:24)
[2020-04-17] MEDS ORDERED: SODIUM CHLORIDE 0.9% IRRIG 1,000 ML BTL IRRIGATION ONE (17:24)
[2020-04-17] MEDS ORDERED: LIDOCAINE 1% INJ 10MG/ML (20 ML MDV) ONE (17:24)
[2020-04-17] MEDS ORDERED: ROCURONIUM 10 MG/ML (5 ML VIAL) IV ONE (17:24)
[2020-04-17] MEDS ORDERED: MIDAZOLAM 2 MG/2 ML VIAL ONE (17:24)
[2020-04-17] MEDS ORDERED: fentaNYL (PF) 50 MCG/ML 2 ML AMP ONE (17:24)
[2020-04-17] MEDS ORDERED: PHENYLEPHRINE-0.9% NACL SYG 1 MG/10 ML SYRINGE ONE ×2 (17:24)
[2020-04-17] MEDS ORDERED: NEOSTIGMINE 1 MG/ML 10 ML VIAL ONE (17:24)
[2020-04-17] MEDS ORDERED: SUCCINYLCHOLINE CHLORIDE 100 MG/5 ML SYR IV ONE (17:24)
[2020-04-17] MEDS ORDERED: GELATIN SPONGE,ABSORB (LARGE) 1 EACH SPONGE TOPICAL ONE (17:29)
[2020-04-17] MEDS ORDERED: THROMBIN (BOVINE) 5,000 UNIT VIAL TOPICAL ONE (17:29)
--- NOTE | 2020-04-17 18:12 | P.ANPRN ---
Procedure Note - Anesthesia - Invasive Line Right Arterial Line Time Out Performed: Yes Date of Procedure: 04/17/20 Time of Procedure: 16:29 Location of Patient: PreOp Preparation: Sterile Prep, Sterile Dressing Arterial Line Location: Radial Ultrasound Used: Yes Purpose - Visualization and Identification of Vasculature: Yes Needle Guage: 20 Image Stored and Saved: No Narrative: Lidocaine 1% 3 ml infiltrated. 20 G arrow under u/s guidance. Pulsatile blood flow obtained. Catheter advanced over guidewire. Sutured in place. Patient tolerated well. Right Central Line Date of Procedure: 04/17/20 Time of Procedure: 17:08 Location of Patient: PreOp Preparation: Sterile Prep, Sterile Dressing Ultrasound Used: Yes Purpose - Visualization and Identification of Vasculature: Yes Needle Guage: 18 Image Stored and Saved: No Narrative: Central line placement per sterile protocol utilized. 1% lidocaine 5 ml subq. 18 G needle under u/s guidance into right IJ. Venous blood obtained. Guide wire inserted and visualized on u/s. Small hollie in skin. Dilator passed over wire. TLC advanced over guidewire to 16 cm. Line sutured in place. Biopatch and sterile dressing applied.
[2020-04-17 20:42] LABS: Glucose,Whole Blood 155 mg/dL (75-99)
[2020-04-17] MEDS ORDERED: VANCOMYCIN 1,000 MG VIAL MISCELLANE ONE (21:27)
--- NOTE | 2020-04-17 21:52 | FL ---
Fluoroscopy INDICATION: Pain FINDINGS: Fluoroscopy time: 1 minute 17 seconds. Images obtained: 4. IMPRESSIONS: 1. Documentation of fluoroscopy.
--- NOTE | 2020-04-17 22:17 | P.OP ---
Date of Procedure: 04/17/20 Preoperative Diagnosis: T12-L2 severe stenosis, failed hardware with conus syndrome. Postoperative Diagnosis: 1. Severe stenosis T12-L2 with 2. L epidural mass, 3. failed fusion, adjacent segment disease 4. R L1 dural erosion due to scar tissue and bone growth into dural tissue 5. Complex medical patient Procedure(s) Performed: 1. T12-L2 decompressive laminectomy T12-L21 2. L L1 pedical subtraction 3. T12-L1 Interbody fusion 4. T12-L2 posteriolateral instrumented fusion 5. Mass decompression with conus decompression 6. Repair of dural erosion Implants: Nuzhat Zamorano Screws x 6 6.5 and 7.0 x 40 mm x1 Peek interbody straight BIO4 [employer] boats Autograft Anesthesia: GETA Surgeon: Claudio Plummer Estimated Blood Loss (ml): 1,200 IV fluids (ml): 3,000 Urine output (ml): 150 Pathology: none sent Condition: stable Disposition: PACU Indications for Procedure: 80 yo female with hx of several back surgeries, recent PE with DVT with progressive RLE weakness, groin numbness and bladder incontinence due to severe stenosis and conus syndrome at T12-L1. Operative Findings: Severe stenosis T12-L1. Dural erosion L1 R side, repaired. Pseudoarthrosis L1- 2. T12-L1 adjacent segment disease. Description of Procedure: Please see dictated operative report.
[2020-04-17 22:24] LABS: Glucose,Whole Blood 218 mg/dL (75-99)
[2020-04-17] MEDS ORDERED: INSULIN ASPART (NovoLOG) 100 UNIT/ML VIAL SQ ONE (22:25)
[2020-04-17] MEDS: HYDROmorphone 0.5 MG/0.5 ML SYRINGE IVP ONE ×2 (22:54→22:59)
--- NOTE | 2020-04-17 23:09 | P.PN ---
Progress Note - Text Progress Note Date: 04/17/20 Patient was seen and examined in the postoperative care unit. Upon awakening. Her vital signs are stable. Right now, anesthesia is at bedside. The patient is able to answer questions and told me that her's daughters name was Juanita. Upon prompting. She is able to lift her right lower extremity up off the bed with 3+ to 4 out of 5 strength. He is able to dorsiflex and plantarflex her right ankle. Her left lower extremity has baseline sensation and motor. Her right lower extremity has intact sensation as well. Her distal pulses are intact. There is no clonus and no Babinski's bilaterally. I spoke with her daughter as well and relayed these findings. She will be transferred to the ICU. Once stable per anesthesia staff and PACU staff.
[2020-04-17 23:10] LABS: Glucose,Whole Blood 194 mg/dL (75-99)
[2020-04-17] MEDS ORDERED: methocarbamoL 750 MG TAB PO PRN (23:35)
[2020-04-17] MEDS ORDERED: NOREPINEPHRIN 4 MG-0.9% NS PMX 4 MG/250 ML ML IV ONE (23:47)
--- NOTE | 2020-04-17 23:48 | XR ---
EXAMINATION TYPE: XR chest 1V DATE OF EXAM: 04/17/2020 COMPARISON: 04/16/2020 HISTORY: Check line placement TECHNIQUE: FINDINGS: There is right jugular catheter with tip in the superior vena cava. There is no heart failu re nor confluent pneumonic infiltrate. There is no pneumothorax. Thoracic aorta is atheromatous. Ther e are chest leads. IMPRESSION: Catheter in good position. No active cardiopulmonary disease.
[2020-04-18] MEDS: LACTATED RINGERS 1,000 ML IV SCH ×2 (00:01→06:48)
[2020-04-18] MEDS: NOREPINEPHRINE 4 MG in SODIUM CHLORIDE 0.9% 250 ML IV SCH (00:03)
[2020-04-18] MEDS: MORPHINE SULFATE 4 MG/ML SYRINGE IV PRN ×5 (00:49→21:13)
[2020-04-18] MEDS: atenoloL 50 MG TAB PO SCH ×3 (02:20→22:43)
[2020-04-18] MEDS: IPRATROPIUM BROMIDE 0.06% NASAL SPRAY (15 ML) EA NOSTRIL SCH ×3 (02:21→21:16)
[2020-04-18] MEDS: INSULIN ASPART (NovoLOG) 100 UNIT/ML VIAL SQ SCH ×6 (02:21→20:49)
[2020-04-18] MEDS: SODIUM CHLORIDE 0.9% 1,000 ML IV SCH ×4 (02:22→18:08)
--- NOTE | 2020-04-18 05:31 | CT ---
EXAMINATION TYPE: CT thoracic spine wo con DATE OF EXAM: 04/18/2020 COMPARISON: Yesterday HISTORY: post op hardware eval CT DLP: 718.5 mGycm Automated exposure control for dose reduction was used. Images were obtained from the level of T1-T12 without contrast. Thoracic vertebra have fairly normal alignment. There is mild pleural thickening in the paraspinal re gion of the mid and lower thoracic spine. There is no pleural effusion. There is no thoracic compress ion fracture. There is no sign of thoracic spinal stenosis. There are posterior skin diann in the t horacolumbar junction. There is posterior soft tissue air from recent surgery. There is placement of posterior rods and screws fusing the spine from T12 to S1. T12 fusion level is a change compared to e xam yesterday. IMPRESSION: Recent surgery. Posterior fusion surgery at T12 level. There is posterior pleural thickening and subs egmental atelectasis in the paraspinal mid and lower thorax that appears new compared to yesterday.
--- NOTE | 2020-04-18 05:37 | CT ---
EXAMINATION TYPE: CT lumbar spine wo con DATE OF EXAM: 04/18/2020 COMPARISON: CT scan 04/15/2020 HISTORY: post op hardware eval CT DLP: 826.8 mGycm Automated exposure control for dose reduction was used. Images were obtained from the level of T12-S4 vertebra without contrast. There are posterior skin diann in the entire lumbar spine. There is rods and screws fusing posterio rly the spine from T12 to S1. Vertebra have normal alignment. There is no significant compression def ormity. There is moderately severe narrowing of the disc spaces throughout the lumbar spine. There is apparent retained contrast material in the thecal sac in the lower lumbar spine. There is small extr adural air bubbles at the L2 level in the spinal canal. There is moderate disc space narrowing and sp urring at T12-L1. There is a very large calcified mass in the spinal canal at T12-L1 on the left side anteriorly. This could be calcified disc herniation and measures 12 mm in diameter unchanged. IMPRESSION: Recent postsurgical changes. There is additional fusion surgery at T12 level compared to previous rec ent exam. There is stable large calcified posterior disc herniation at T12-L1. Small extradural air b ubbles in the spinal canal consistent with recent surgery.
[2020-04-18 06:34] LABS: Glucose,Whole Blood 157 mg/dL (75-99)
[2020-04-18 06:44] LABS: HCT 25.6 % (34.0-46.0); MCH 31.1 pg (25.0-35.0); MCHC 33.9 g/dL (31.0-37.0); MCV 91.7 fL (80.0-100.0); Mean Platelet Volume 7.2; Platelet Count 107 k/uL (150-450); RBC 2.79 m/uL (3.80-5.40); RDW 15.7 % (11.5-15.5); WBC 11.8 k/uL (3.8-10.6)
--- NOTE | 2020-04-18 06:49 | XR ---
EXAMINATION TYPE: XR lumbar spine 2 or 3V DATE OF EXAM: 04/17/2020 CLINICAL HISTORY: Low back pain. TECHNIQUE: Frontal and lateral images of the lumbar spine are obtained. COMPARISON: Lumbar spine x-ray November 24, 2019. Lumbar spine CT earlier today. FINDINGS: 4 spot intraoperative images show persistent posterior interpedicular rods and screws L4-S1 levels and additional rods and screws T12-L2 level with stable scoliotic curvature. Multilevel sage ectomy defects and spinous process resection. IMPRESSION: As above.
[2020-04-18 06:52] LABS: HGB 8.7 gm/dL (11.4-16.0)
[2020-04-18 06:58] LABS: African American GFR (CKD) >90 (>60 ml/min/1.73 sqM); Anion Gap 0 mmol/L; Blood Urea Nitrogen 15 mg/dL (7-17); Calcium 7.8 mg/dL (8.4-10.2); Carbon Dioxide 23 mmol/L (22-30); Chloride 111 mmol/L (98-107); Glucose 138 mg/dL (74-99); Non-African American GFR(CKD) 86 (>60 ml/min/1.73 sqM); Potassium 3.3 mmol/L (3.5-5.1); Sodium 134 mmol/L (137-145)
--- NOTE | 2020-04-18 08:25 | P.PN ---
Subjective Progress Note Date: 04/18/20 Principal diagnosis: T12-L1 severe stenosis with impending conus syndrome and RLE weakness Patient was seen and examined in the ICU this morning with nursing at bedside. The patient awakens easily and answers questions appropriately and states she feels pretty well considering her circumstances and that she only has a moderate amount of pain in her back currently. She states that the pain in her legs is better. She states that she can lift her right leg up off the bed, which is better than it was before. She still having some issues with dorsiflexion and plantarflexion. This morning, however, she can plantar flex on the right hand side was having difficulty with dorsiflexion, which is different from postoperatively. Her left lower extremity is completely functional with no issues. She denies any new numbness or tingling. She states that her groin numbness and tingling seems to be better. Per nursing. She has been stable overnight on a small amount of levo fed Objective - Vital Signs Vital signs: Vital Signs Temp 98.1 F 04/18/20 04:00 Pulse 101 H 04/18/20 07:30 Resp 14 04/18/20 07:30 BP 96/68 04/18/20 04:30 Pulse Ox 95 04/18/20 07:30 Intake & Output 04/17/20 04/18/20 04/18/20 18:59 06:59 18:59 Intake Total 1000 1877.587 128 Output Total 1899 32 Balance 1000 -21.413 96 Weight 69.2 kg Intake: IV 1000 1768 128 Lactated Ringers 1,000 ml 750 125 @ 125 mls/hr IV .Q8H [facility] Rx#:[id number] Pressure Bag 18 3 Intake, IV Titration 109.587 Amount Norepinephrine 4 mg In 109.587 Sodium Chloride 0.9% 250 ml @ 0.05 MCG/KG/MIN 11. 925 mls/hr IV .[id number] [facility] Rx#:[id number] Output: Urine 799 32 Estimated Blood Loss 1100 Other: Voiding Method Toilet Indwelling Catheter Incontinent # Voids 2 ABP, PAP, CO, CI - Last Documented Arterial Blood Pressure 100/56 - Exam Exam is stable. There is no change currently. VASCULAR STATUS : RIGHT LEFT Wrist Pulses intact intact Pedal Pulses (Dors. pedis & post.tibialis) intact intact Color normal normal Edema Absent Absent MOTOR EXAM (0-5/5, N/T) STRENGTH RIGHT LEFT Shoulder Abd (not part of the LEONA score) 5 5 Elbow Flexors 5 5 Elbow Extensor 5 5 Wrist Dorsiflexors 5 5 Finger Abductor 5 5 Color Television Console Monitor 5 5 Hip Flexor (Not part of LEONA Motor score) 5 5 Knee Flexor 5 5 Knee Extensor 5 4- Ankle dorsiflexor 5 2 Ankle plantarflexion 5 3 Extensor hallucis 5 1 REFLEXES(0-4/2, NT) RIGHTLEFT Upper Extremities 2 2 Lower Extremities 2 2 Pathological ReflexesRIGHTLEFT Franklin's Absent Absent Clonus Absent Absent CN II-XII grossly intact. Negative babinski b/l Sensation is intact to light touch and pain in the lower extremity is bilaterally in the L2 to S1 nerve distribution. Incision is clean, dry and intact. Drain is in place. Minimal to no output On palpation, there is no hematoma noted - Constitutional General appearance: Present: cooperative - EENT Eyes: Present: PERRLA - Neurologic Neurologic: Present: CNII-XII intact - Musculoskeletal Musculoskeletal: Present: right sided weakness - Psychiatric Psychiatric: Present: A&O x's 3, appropriate affect, intact judgment & insight - Allied health notes Allied health notes reviewed: nursing - Labs CBC & Chem 7: 04/18/20 06:32 04/18/20 06:32 Labs: Abnormal Lab Results - Last 24 Hours (Table) 04/17/20 04/17/20 04/17/20 Range/Units 12:25 15:36 20:41 WBC (3.8-10.6) k/uL RBC (3.80-5.40) m/uL Hgb (11.4-16.0) gm/dL Hct (34.0-46.0) % RDW (11.5-15.5) % Plt Count (150-450) k/uL Sodium (137-145) mmol/L Potassium (3.5-5.1) mmol/L Chloride (98-107) mmol/L Glucose (74-99) mg/dL POC Glucose (mg/dL) 115 H 100 H 155 H (75-99) mg/dL Calcium (8.4-10.2) mg/dL 04/17/20 04/17/20 04/18/20 Range/Units 22:22 23:08 06:32 WBC 11.8 H (3.8-10.6) k/uL RBC 2.79 L (3.80-5.40) m/uL Hgb 8.7 L D (11.4-16.0) gm/dL Hct 25.6 L (34.0-46.0) % RDW 15.7 H (11.5-15.5) % Plt Count 107 L (150-450) k/uL Sodium (137-145) mmol/L Potassium (3.5-5.1) mmol/L Chloride (98-107) mmol/L Glucose (74-99) mg/dL POC Glucose (mg/dL) 218 H 194 H (75-99) mg/dL Calcium (8.4-10.2) mg/dL 04/18/20 04/18/20 Range/Units 06:32 06:32 WBC (3.8-10.6) k/uL RBC (3.80-5.40) m/uL Hgb (11.4-16.0) gm/dL Hct (34.0-46.0) % RDW (11.5-15.5) % Plt Count (150-450) k/uL Sodium 134 L (137-145) mmol/L Potassium 3.3 L (3.5-5.1) mmol/L Chloride 111 H (98-107) mmol/L Glucose 138 H (74-99) mg/dL POC Glucose (mg/dL) 157 H (75-99) mg/dL Calcium 7.8 L (8.4-10.2) mg/dL Assessment and Plan Assessment: 80-year-old female postop day 1 from T12 to L2 posterior lateral instrumented fusion with T12 to L2 decompression laminectomy, left pedicle subtraction L1, dural erosion and repair. 1. T12-L1 severe spondylosis. 2. 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 Adjacent segment disease T12-L1 4. R foot drop, improved with improved hip flexion on the right. Postoperatively Plan: 1. Appreciate ICU management. Maintain maps of 70 or greater. 2. Progressive sit up protocol, 5-10 every 1-2 hours monitor for headache if any headache lay patient flat. Start again 3. Decadron 6 mg every 6 hours. Discussed with medicine. They will titrate insulin appropriately 4. Pain control 5. Manage drain record outputs 6. Neuro checks every 4 hours 7. Trend labs transfuse if hemoglobin less than 8 or hematocrit less than 23 8. PT, OT . No braces needed for ambulation but OK for comfort when up and about 9. May restart chemical DVT prophylaxis 48 hours postoperatively, SCDs and ear ly ambulation are preferred at this time 10. Close follow
[2020-04-18] MEDS: DEXAMETHASONE SOD PHOSPHATE 4 MG/ML 1 ML VIAL IV SCH ×4 (09:14→18:08)
[2020-04-18] MEDS: allopurinoL 100 MG TAB PO SCH (09:17)
[2020-04-18] MEDS: PANTOPRAZOLE 40 MG/10 ML VIAL IV SCH (09:18)
[2020-04-18] MEDS ORDERED: SODIUM CHLORIDE 0.9% 1,000 ML IV ONE (09:34)
[2020-04-18] MEDS: ENOXAPARIN 60 MG/0.6 ML SYRINGE SQ SCH ×2 (11:14→21:15)
[2020-04-18 11:19] LABS: Glucose,Whole Blood 133 mg/dL (75-99)
--- NOTE | 2020-04-18 13:28 | P.PN ---
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 Rocha, who we had re cently seen in consultation on 03/09/2020 1 patient was hospitalized with the right lower lobe pulmonary embolism, which was unprovoked, and acute on chronic DVT involving the left lower extremity. Patient at that time was started on Eliquis. Other medical history includes history of non-Hodgkin's lymphoma which has been in remission since 1993, family history of thromboembolic disease and pulmonary embolism with the factor V Leiden mutation, type 2 diabetes, history of GI bleeding, DJD, hypertension, hypothyroidism, history of TIA and chronic low back pain. She was seen in follow-up by Dr. Rosario in the office, and patient was planning on having surgery on her back, and the plan was to continue with the 3 months of anticoagulation prior to surgery. On 04/15/2020 patient presented to the emergency department per EMS with complaints of lower back pain, significant weakness in the right leg, with foot drop, and one episode of urinary incontinence. CT of the thoracic and lumbar spine shows multilevel posterior fusion surgery, spinal stenosis present at T12 to L1 with bony metastases in the spinal canal anteriorly on the left side but no acute fracture. Today she is having increased loss of sensation in the right lower extremity. She was evaluated by Dr. Plummer, who diagnosed the patient with the T12 to L1 severe spondylosis, T12 to L1 disc osteophyte complex with severe canal stenosis and impending conus syndrome, and recommended surgery with L1-2 removal of hardware with T12 to L2 decompression and fusion. Dr. Edward's and discussed the case with Dr. Rosario, and in view of rapid progression disabling nature of patient's symptoms, patient is cleared for surgery from pulmonary perspective and the recommendation to hold Eliquis for 1-2 days prior to surgery. Patient is currently not complaining of any pulmonary complaints, she is on room air with pulse ox of 95-98%, hemodynamically patient is stable. She has received at least 5 weeks of anticoagulation. Today's chest x-ray shows no acute cardiopulmonary process. Her labs have been reviewed, showing white blood cell count of 7.1, hemoglobin of 13.7, sodium 139, potassium 3.7, chloride is 111, CO2 is 21, BUN of 20 creatinine 0.76, LFTs were within normal limits. Vitals signs have been stable. Patient was reevaluated today on 04/18/20, patient is status post surgery for severe T12-L1 severe stenosis with impending conus syndrome and right lower extremity weakness. Patient was brought into the ICU late at night, and she was borderline hypotensive, required fluid boluses in the form of lactated Ringer's, she also required placement on norepinephrine drip to maintain a blood pressure with a mean of above 65. Presently her mean is 75, and she is on levo at 0.1 mcg/kg/m. Patient is doing fairly well, relatively asymptomatic, pain seems to be under control. Receiving morphine for pain control. Urine output is marginal 20-30 mL/h, hence I recommended another bolus of 0.9 normal saline, and I recommended that we start the patient on Lovenox 60 mg subcu every 12 hours mostly because of her recent history of DVT and pulmonary embolism. Patient was also seen by surgery and she informed the surgeon that the pain in her legs is much better. She can lift her right leg up off the bed, but she continues to have issues with dorsiflexion and plantar flexion. The surgeon felt that her left lower extremity is completely functional and her groin numbness and tingling seems to be improving. Labs today showed WBC count of 11.8 hemoglobin of 8.7. Electrolytes are normal except for slightly low potassium of 3.3 being corrected as per protocol. Objective - Vital Signs Vital signs: Vital Signs Temp 97.5 F L 04/18/20 08:00 Pulse 101 H 04/18/20 13:00 Resp 12 04/18/20 13:00 BP 96/68 04/18/20 04:30 Pulse Ox 96 04/18/20 13:00 Intake & Output 04/17/20 04/18/20 04/18/20 18:59 06:59 18:59 Intake Total 1000 8805.423 8870 Output Total 1899 234 Balance 1000 -21.413 1662 Weight 69.2 kg Intake: IV 1000 1768 1896 Lactated Ringers 1,000 ml 750 250 @ 125 mls/hr IV .Q8H [facility] Rx#:[id number] Pressure Bag 18 21 Sodium Chloride 0.9% 1, 625 000 ml @ 125 mls/hr IV . Q8H [facility] Rx#:[id number] Sodium Chloride 0.9% 1, 1000 000 ml @ 999 mls/hr IV . Q1H1M [facility] Rx#:[id number] Intake, IV Titration 109.587 Amount Norepinephrine 4 mg In 109.587 Sodium Chloride 0.9% 250 ml @ 0.05 MCG/KG/MIN 11. 925 mls/hr IV .[id number] [facility] Rx#:[id number] Output: Urine 799 234 Estimated Blood Loss 1100 Other: Voiding Method Toilet Indwelling Catheter Indwelling Catheter Incontinent # Voids 2 ABP, PAP, CO, CI - Last Documented Arterial Blood Pressure 100/60 - Exam GENERAL EXAM: Revealed 80-year-old female pleasant, in no distress, patient is on 1 L nasal cannula, and O2 saturation 97%. HEAD: Normocephalic/atraumatic. EENT: PERRLA, EOMI, neck this, no neck masses, no JVD, no stridor. Right IJ central line is noted. CHEST: No chest wall deformity. Symmetrical expansion. LUNGS: Equal air entry with no crackles, wheeze, rhonchi or dullness. CVS: Regular rate and rhythm, normal S1 and S2, no gallops, no murmurs, no rubs ABDOMEN: Soft, nontender. No hepatosplenomegaly, normal bowel sounds, no guarding or rigidity. EXTREMITIES: No clubbing, no edema, no cyanosis, 2+ pulses and upper and lower extremities. SKIN: No rashes CENTRAL NERVOUS SYSTEM: Alert and oriented 3, no gross focal deficits.. Except for chronic right foot drop improved with improved hip flexion on the right. This is postoperative. PSYCHIATRIC: Normal mood, affect and normal mental status examination. - Labs CBC & Chem 7: 04/18/20 06:32 04/18/20 06:32 Labs: Abnormal Lab Results - Last 24 Hours (Table) 04/17/20 04/17/20 04/17/20 Range/Units 15:36 20:41 22:22 WBC (3.8-10.6) k/uL RBC (3.80-5.40) m/uL Hgb (11.4-16.0) gm/dL Hct (34.0-46.0) % RDW (11.5-15.5) % Plt Count (150-450) k/uL Sodium (137-145) mmol/L Potassium (3.5-5.1) mmol/L Chloride (98-107) mmol/L Glucose (74-99) mg/dL POC Glucose (mg/dL) 100 H 155 H 218 H (75-99) mg/dL Calcium (8.4-10.2) mg/dL 04/17/20 04/18/20 04/18/20 Range/Units 23:08 06:32 06:32 WBC 11.8 H (3.8-10.6) k/uL RBC 2.79 L (3.80-5.40) m/uL Hgb 8.7 L D (11.4-16.0) gm/dL Hct 25.6 L (34.0-46.0) % RDW 15.7 H (11.5-15.5) % Plt Count 107 L (150-450) k/uL Sodium 134 L (137-145) mmol/L Potassium 3.3 L (3.5-5.1) mmol/L Chloride 111 H (98-107) mmol/L Glucose 138 H (74-99) mg/dL POC Glucose (mg/dL) 194 H (75-99) mg/dL Calcium 7.8 L (8.4-10.2) mg/dL 04/18/20 04/18/20 Range/Units 06:32 11:19 WBC (3.8-10.6) k/uL RBC (3.80-5.40) m/uL Hgb (11.4-16.0) gm/dL Hct (34.0-46.0) % RDW (11.5-15.5) % Plt Count (150-450) k/uL Sodium (137-145) mmol/L Potassium (3.5-5.1) mmol/L Chloride (98-107) mmol/L Glucose (74-99) mg/dL POC Glucose (mg/dL) 157 H 133 H (75-99) mg/dL Calcium (8.4-10.2) mg/dL Assessment and Plan Assessment: Impression: T12-L1 severe spondylosis T12-L1 disc osteophyte complex with severe canal stenosis and impending conus syndrome Right foot drop. Status post: 1. T12-L2 decompressive laminectomy T12-L21 2. L L1 pedical subtraction 3. T12-L1 Interbody fusion 4. T12-L2 posteriolateral instrumented fusion 5. Mass decompression with conus decompression 6. Repair of dural erosion History of multiple comorbidities including recent unprovoked pulmonary embolism with left lower extremity DVT, patient received a total of 5 weeks of anticoagulation therapy on outpatient basis. Hence patient will have to be started on Lovenox, and I will recommend 60 mg subcu every 12 hours, with clear the Lovenox with orthopedic surgery. Patient is definitely high risk for deep vein thromboses and pulmonary embolism, she has known family history of factor V Leyden mutation. History of CVA/TIA. History of non-Hodgkin's lymphoma History of hypothyroidism History of type 2 diabetes. Recommendation: Continue norepinephrine, titrate to a mean of above 65, preferably above 70. Start Lovenox 60 mg subcu every 12 hours. Eventually transitioned back to Eliquis before discharge home. Continue incentive spirometry. Continue Decadron. Continue pain control management. Continue neuro checks. Physical therapy and occupational therapy. We'll continue to follow. Time with Patient: Less than 30
--- NOTE | 2020-04-18 14:26 | P.PN ---
Subjective Progress Note Date: 04/18/20 HISTORY OF PRESENT ILLNESS This is a 80-year-old female one of Dr. Rocha patient with past medical history of type 2 diabetes, non-Hodgkin's lymphoma [place] [address] Monaco and follows with Dr. Aranda status post chemotherapy and radiation therapy, TIA 5 years ago, hypertension, hyperlipidemia, hypertension, hypothyroidism, restless leg syndrome, recurrent depression, and osteoarthritis who has been treated for lower back pain post multiple lower back surgery and epidural injection with pain management at [facility], previous admission for acute GI bleed and acute blood loss anemia status post EGD and colonoscopy which revealed antral gastritis, area of ulceration, nonbleeding, in the distal transverse colon, pulmonary embolism and left lower leg DVT diagnosed 03/08/2020 on eliquis Patient states that she has been having ongoing problems with back pain with right foot drop and lack of bladder control. She also has some right- sided weakness. She has had 2 falls including one in which she fractured her right kneecap. She has been following with Dr. Plummer and was scheduled for back surgery next week. Patient has had increasing difficulty with her leg giving out and worsening bladder and bowel control and patient is scheduled for surgery this week. She normally uses a walker for ambulation. She states the pain has been bad for several years and radiation to her chest impacted the thoracic spine when she was undergoing treatment for lymphoma. Her last dose of eliquis was on April 15. 04/17: Patient is scheduled for myelogram prior to surgical today. She has been seen by pulmonary medicine. She denies any new complaints. No shortness of breath. Patient has been afebrile, heart rate 90, blood pressure 120/79, pulse ox 96% on room air. Blood sugars are running between 123-184. 04/18: Patient is seen today in the intensive care unit. She underwent T12 through L2 decompression laminectomy, CAT scan of the lumbar spine which revealed large calcified posterior disc herniation at T12-L1. Small extradural air bubbles in the spinal canal consistent with recent surgery. CAT scan of the thoracic spine revealed fusion surgery at T12 level. Posterior pleural thickening and subsegmental atelectasis in the paraspinal mid and lower thorax appears new. Following procedure, patient became hypotensive and required transfer into the intensive care unit status post fluid boluses and norepinephrine drip. She is still on norepinephrine this morning. Lactated ringer changed to 0.9 normal saline as patient has had a high blood sugars. Patient is on Decadron 6 mg IV every 6 hours. Patient has been started on Lovenox 60 mg subcu every 12 hours due to recent diagnosis of DVT and PE. Patient has been afebrile, heart rate 105, blood pressure 95/55. Pulse ox 97% on 2 L nasal cannula. Hemoglobin is 8.7, WBC 11.8, platelet count 107. Sodium 134, potassium 3.3, chloride 111, CO2 23, creatinine 0.65. Blood sugars are running between 157 and 218. REVIEW OF SYSTEMS Constitutional: No fever, no chills, no night sweats. No weight change. Reports weakness, reports fatigue denies lethargy. No daytime sleepiness. EENT: No headache. No blurred vision or double vision, no loss of vision. No loss of Hearing, no ringing in the ears, Reports dizziness. No nasal drainage or congestion. No epistaxis. No sore throat. Lungs: Denies shortness of breath, cough, no sputum production. No wheezing. Cardiovascular: No chest pain, no left lower extremity edema. No palpitations. No paroxysmal nocturnal dyspnea. No orthopnea. No lightheadedness or dizziness. No syncopal episodes. Abdominal: No abdominal pain. No nausea, vomiting. No diarrhea. No constipation. No bloody or tarry stools. No loss of appetite. Genitourinary: No dysuria, increased frequency, urgency. No urinary retention. Reports incontinence, loss of bladder control Musculoskeletal: No myalgias. Reports muscle weakness, reports gait dysfunction, reports 2 falls. Reports back pain. No neck pain. Integumentary: No wounds, no lesions. No rash or pruritus. No unusual bruising. No change in hair or nails. Neurologic: No aphasia. No facial droop. No change in mentation. No head injury. No headache. No paralysis. No paresthesia. Psychiatric: No depression. No anxiety. Endocrine: Reports abnormal blood sugars. PHYSICAL EXAMINATION Gen: This is A 80-year-old female. Patient is resting ICU bed appears to be comfortable and in no acute distress. No respiratory distress is noted. HEENT: Head is atraumatic, normocephalic. Pupils equal, round. Sclerae is anicteric. NECK: Supple. No JVD. No lymphadenopathy. No thyromegaly. LUNGS: Clear to auscultation. No wheezes or rhonchi. No intercostal retractions. HEART: Regular rate and rhythm. No murmur. ABDOMEN: Soft. Bowel sounds are present. No masses. No tenderness. EXTREMITIES: No pedal edema. No calf tenderness. Dorsalis pedis palpable bilaterally. Left foot drop. NEUROLOGICAL: Patient is awake, alert and oriented x3. Cranial nerves 2 through 12 are grossly intact. ASSESSMENT AND PLAN 1. T12-L1 severe spondylosis, severe canal stenosis and impending conus syndrome status post T12 through L2 decompression laminectomy. Incentive spirometry to reduce incidence of atelectasis and hospital-acquired pneumonia. Decadron 6 mg IV every 6 hours. Continue current pain management. 2. Postop hypotension. Patient is on vasopressor, IV fluids changed to 0.9 normal saline at 125 mL per hour, maintained in the intensive care unit. 3. Right lower lobe pulmonary embolism. Eliquis on hold 2 days prior to surgical intervention. Lovenox. 4. Diabetes mellitus type 2, uncontrolled with hyperglycemia secondary to steroids. Hemoglobin A1c in November was 6.8. Change IV fluids to 0.9 normal saline, NovoLog scale every 4 hours. 5. Non-Hodgkin's lymphoma [place] [address] Monaco and follows with Dr. Aranda, in remission. 6. History of TIA with no deficits. 7. History of GI bleed secondary to colon ulcer in November 2019 without recurrence. Continue Protonix. 8. Hypertension. Hold amlodipine 5 mg daily, and atenolol 50 mg twice daily for hypotension. 9. Hypothyroidism. Continue levothyroxine 12.5 g daily. 10. Seasonal ALLERGIES. Continue Singulair 10 mg at bedtime. 11. Recurrent depression. Continue Prozac 30 mg daily. 12. Chronic gout. Continue allopurinol 100 mg daily. 13. Hyperlipidemia. Patient is not currently on statin. 14. Restless leg syndrome. Continue Requip. 15. GERD and GI prophylaxis. Protonix Discharge plan: Most likely will require subacute rehab. Impression and plan of care have been directed as dictated by the signing physician. Karen Quintero nurse practitioner acting as scribe for signing physician. Objective - Vital Signs Vital signs: Vital Signs Temp 98.1 F 04/18/20 04:00 Pulse 101 H 04/18/20 07:30 Resp 14 04/18/20 07:30 BP 96/68 04/18/20 04:30 Pulse Ox 95 04/18/20 07:30 Intake & Output 04/17/20 04/18/20 04/18/20 18:59 06:59 18:59 Intake Total 1000 1877.587 128 Output Total 1899 32 Balance 1000 -21.413 96 Weight 69.2 kg Intake: IV 1000 1768 128 Lactated Ringers 1,000 ml 750 125 @ 125 mls/hr IV .Q8H [facility] Rx#:[id number] Pressure Bag 18 3 Intake, IV Titration 109.587 Amount Norepinephrine 4 mg In 109.587 Sodium Chloride 0.9% 250 ml @ 0.05 MCG/KG/MIN 11. 925 mls/hr IV .[id number] [facility] Rx#:[id number] Output: Urine 799 32 Estimated Blood Loss 1100 Other: Voiding Method Toilet Indwelling Catheter Incontinent # Voids 2 ABP, PAP, CO, CI - Last Documented Arterial Blood Pressure 100/56 - Labs CBC & Chem 7: 04/18/20 06:32 04/18/20 06:32 Labs: Abnormal Lab Results - Last 24 Hours (Table) 04/17/20 04/17/20 04/17/20 Range/Units 12:25 15:36 20:41 WBC (3.8-10.6) k/uL RBC (3.80-5.40) m/uL Hgb (11.4-16.0) gm/dL Hct (34.0-46.0) % RDW (11.5-15.5) % Plt Count (150-450) k/uL Sodium (137-145) mmol/L Potassium (3.5-5.1) mmol/L Chloride (98-107) mmol/L Glucose (74-99) mg/dL POC Glucose (mg/dL) 115 H 100 H 155 H (75-99) mg/dL Calcium (8.4-10.2) mg/dL 04/17/20 04/17/20 04/18/20 Range/Units 22:22 23:08 06:32 WBC 11.8 H (3.8-10.6) k/uL RBC 2.79 L (3.80-5.40) m/uL Hgb 8.7 L D (11.4-16.0) gm/dL Hct 25.6 L (34.0-46.0) % RDW 15.7 H (11.5-15.5) % Plt Count 107 L (150-450) k/uL Sodium (137-145) mmol/L Potassium (3.5-5.1) mmol/L Chloride (98-107) mmol/L Glucose (74-99) mg/dL POC Glucose (mg/dL) 218 H 194 H (75-99) mg/dL Calcium (8.4-10.2) mg/dL 04/18/20 04/18/20 Range/Units 06:32 06:32 WBC (3.8-10.6) k/uL RBC (3.80-5.40) m/uL Hgb (11.4-16.0) gm/dL Hct (34.0-46.0) % RDW (11.5-15.5) % Plt Count (150-450) k/uL Sodium 134 L (137-145) mmol/L Potassium 3.3 L (3.5-5.1) mmol/L Chloride 111 H (98-107) mmol/L Glucose 138 H (74-99) mg/dL POC Glucose (mg/dL) 157 H (75-99) mg/dL Calcium 7.8 L (8.4-10.2) mg/dL
[2020-04-18 16:18] LABS: Glucose,Whole Blood 150 mg/dL (75-99)
[2020-04-18] MEDS ORDERED: VANCOMYCIN IV PER PHARMACY 1 EACH MISC MISCELLANE PRN (16:25)
--- NOTE | 2020-04-18 16:34 | OP ---
OPERATIVE REPORT DATE OF SURGERY: 04/17/2020 PREOPERATIVE DIAGNOSIS: T12, L2 severe stenosis, failed hardware with adjacent segment disease, T12-L1 with impending conus syndrome. POSTOPERATIVE DIAGNOSES: 1. Severe stenosis T12-L2. 2. Left epidural mass. 3. Failed fusion, adjacent segment disease, T12, L1. 4. Right L1 dural erosion due to scar tissue and bone growth into dural tissue. 5. Complex medical patient. PROCEDURES PERFORMED: 1. T12-L2 decompressive laminectomy, bilateral. 2. Left L1 pedicle subtraction with epidural mass resection. 3. T12-L1 interbody fusion. 4. T12-L2 posterior lateral instrumented fusion. 5. Repair of dural erosion. IMPLANTS: 1. [place] ser[place] screws 6.5 and 7.0 x 40 mm. 2. x1 Peek interbody cage straight. 3. Graft includes bio for Vesuvius and autograft. ANESTHESIA: Was Dr. Kelly, general endotracheal tube. SURGEON: Dr. Claudio Plummer. STRADDLE CARRIER OPERATOR: Jennifer VELASQUEZ. ESTIMATED BLOOD LOSS: 1200 mL. Cell Saver return was 300 mL. IV FLUIDS: 3000. URINE OUTPUT: 150 cc. No pathology sent. CONDITION: Stable postoperatively and she was transferred to the PACU, extubated. INDICATIONS FOR PROCEDURE: This is a 80-year-old female with a history of several back surgeries with severe back pain. She recently had a PE with DVT history in the hospital with Eliquis. She has a history of lymphoma twice and underwent chemo and radiation for this previously. She presented to the office with increasing groin numbness, right lower extremity weakness, which was somewhat acute in progression in the last 3 weeks. She states that the groin tingling was getting worse on the right-hand side and was now on the left-hand side as well. She states 1 or 2 bouts of urinary incontinence and not being able to get to the bathroom in time. However, she states she can still feel her genital region. She denied any trauma to her back. She had been being treated for her DVT for about a month on Eliquis now. We had discussed in the office previously that the surgery she would need would be large, but due to her progressive symptoms, the area of stenosis at the T12-L1 region and her pain and weakness that she wanted to progress with surgery. She left the office, but came back to the emergency department that night with increasing pain and right lower extremity weakness and so she was admitted to the hospital to consult for surgery. The patient was seen and examined in the preoperative area. All preoperative protocols followed. The patient's daughter was at bedside, Juanita, who is very nice. We went through all the risks of the procedure, which were documented in the chart and include risk of bleeding, infection, damage to surrounding tissues, risk of reoperation, risk of nerve damage, risks of blindness, stroke, and due to anesthesia. She understood these risks. She understood that even during surgery, we may not alleviate all of her pain, weakness or numbness and tingling, and she understood this and still wanted to proceed. Informed consent was obtained for this procedure. OPERATIVE COURSE: The patient was transferred to the operative suite. She was drifted off to sleep by the department of anesthesia. A central line and A-line were placed for access. Endotracheal intubation was performed by the anesthesiologist. Once appropriately sedated. Neuro monitoring leads were placed by neuro emergency room technician. Once ready for excision, a Mortensen was then placed by the nursing staff. Once everything in place, the patient was then carefully transferred to the prone Herminio table. All bony prominences were padded accordingly. Arms were placed in the upper outer position in the 90-90 configuration were well padded and relieved of any pressure points. Chest pads and thigh pads were confirmed in good position and were well padded. Knees were padded as well as ankles with pillows and gel pads. A safety strap was placed on the patient. Fluoroscopy was then used to sofia the skin for skin incision from T12- L2. The patient was then prepped and draped in the normal sterile fashion. Time-out was performed and all parties in agreement with the procedure to be performed. A midline incision was then made in the patient's thoracolumbar junction. Dissection was taken down with electrocautery to the posterior elements where the posterior thoracolumbar fascia was exposed using a Smith. Once this had been exposed, it was incised midline and a subperiosteal dissection was taken down the lamina of T12 to attempt to find a more normal landing spot to identify anatomy. Once this was identified, dissection was taken out to the previous hardware that was in at L1 and L2. This hardware was exposed in its entirety. Once hardware was exposed and midline was exposed, a combination of 2 upgoing curettes and rongeur was used to aid in removal of scar tissue as well as a drill to remove the excess bone from around the old hardware. The left L1 screw was loose and so all hardware was removed from L1 and L2 bilaterally. Once hardware was removed, a Feeler was used to check the screw holes. The left L1 screw hole was medial and had been determined it would be sacrificed due to the need for a pedicle subtraction on this side to obtain access to the mass and decompress the nerves and thecal sac in this area. The new screws were then placed under fluoroscopic guidance at T12-L1 on the right and then L2 bilaterally. The screws were confirmed to be in good position under AP and lateral fluoroscopy. Attention was then drawn to the decompression, a laminectomy was performed from T12-L2 and excess bone removed. Scar tissue was removed. A pedicle subtraction was performed on the left L1 pedicle to allow access to the anterior epidural space of L1 and to identify the disc space as well as the mass that was anterior and epidural on this side. Once this was exposed, attention was drawn to the right-hand side were laminectomy and facetectomy was performed of T12 and L1 as well as L2. There is a large dural erosion from facet overgrowth as well as scar tissue in this area, which was noted on the right- hand side of L1. This was promptly identified and it was fixed with 6-0 Prolene on a BV 1 needle in a running fashion. A Valsalva was performed to 40 mmHg and held for 20 seconds. There was no extravasation of CSF fluid from this repair. Once this had been accomplished, the remainder of the decompression was performed on the right-hand side. Attention was then drawn back to the left-hand side where the osteotome was used to access the disc space between T12 and L1 in the intradiscal osteotomy approach. This 3 column osteotomy approach allowed for access to the disk space in this area. Once the disc space was accessed, consecutive speedy were used to remove any remaining cartilage or disk material. Once the appropriate-sized speedy had been used, a 6 mm Peek cage was packed with bio for autograft, autograft was placed anterior to the cage and the cage was impacted into place under fluoroscopic guidance. Once in good position, the consumer loan specialist was removed, the cage was felt and was in a stable position. Meticulous hemostasis then ensued, ensuring that bone wax was used to cover any bony holes and the bipolar was used to cauterize any epidural venous bleeding along with FloSeal and cosme compression. Once this had been accomplished, rods were selected and bent to appropriate length and configuration and they were placed in the screw heads. Locking caps were placed and these were final tightened. One crosslink was then placed over the L1 area. This was locked into place. The dural erosion was then covered with Tisseel, SurgiSeal and another layer of Tisseel. Another Valsalva was performed to 40 mmHg and no CSF extravasation was noted. The wound was then irrigated with 3 L of normal sterile saline. Bone graft was placed in the posterior lateral gutters and then packed into place. One g of vancomycin powder was placed into the wound and a drain was placed on the right-hand side and deep in the patient's thoracolumbar area. The fascia was then approximated and closed using #1 Vicryl on a CTX over run by a #1 PDS, followed by 2-0 Vicryl and finally diann and glue. The wound was then cleaned and dressed sterilely with an active foam and 4x4s and a Tegaderm. The patient was then carefully transferred to her ICU bed, having tolerated the procedure. All bony prominences were again visualized and there were no issues. She was then extubated by the Department of Anesthesia and transferred to the postoperative care unit in stable condition. She was seen in the postoperative care unit. She was moving all 4 extremities. She had increased strength in her right lower extremity from preoperatively and she was able to answer questions appropriately. She will be transferred to the ICU when awake and stable per Anesthesia. MMODL / IJN: [id number] / [facility]
[2020-04-18 16:46] LABS: HCT 23.7 % (34.0-46.0); MCH 30.9 pg (25.0-35.0); MCHC 33.9 g/dL (31.0-37.0); MCV 91.3 fL (80.0-100.0); Mean Platelet Volume 7.7; RDW 15.9 % (11.5-15.5); WBC 11.5 k/uL (3.8-10.6)
[2020-04-18 17:03] LABS: ALT 19 U/L (4-34); AST 39 U/L (14-36); African American GFR (CKD) >90 (>60 ml/min/1.73 sqM); Albumin 2.3 g/dL (3.5-5.0); Alkaline Phosphatase 46 U/L (38-126); Anion Gap 6 mmol/L; Blood Urea Nitrogen 12 mg/dL (7-17); Calcium 7.8 mg/dL (8.4-10.2); Carbon Dioxide 17 mmol/L (22-30); Chloride 114 mmol/L (98-107); Glucose 135 mg/dL (74-99); Non-African American GFR(CKD) 87 (>60 ml/min/1.73 sqM); Potassium 3.6 mmol/L (3.5-5.1); Sodium 137 mmol/L (137-145); Total Protein 4.1 g/dL (6.3-8.2)
[2020-04-18] MEDS ORDERED: Potassium Replacement Protocol 1 EACH MISC MISCELLANE PRN (17:09)
--- NOTE | 2020-04-18 17:10 | P.PN ---
Progress Note - Text Progress Note Date: 04/18/20 Called to eval pt due to some shaking chills and increase in pain. Pt is awake and alert she answers questions appropriately but is in some pain currently. States pain in her back as well as her legs and states that she has a burning sensation in her feet. She states she does not feel weaker in her legs than she has been. She is somewhat overwhelmed as she talks to me as her just passed and she wishes things could just be better with her and her back. She denies any groin numbness/tingling. She denies any new numbness in LE. She denies any ESCOBEDO and her bed has been raised to about 45 degrees so far today with zero symptoms. Denies N/V/vertigo/ESCOBEDO/F/C/SOB/CP at this time. Nursing is at bedside. She is on 0.2 of levophed on and off through day to maintain pressures and MAPs around 70. New Labs have been drawn for eval. We will get CT stat of her brain, T and L spine to eval for intracranial processes, or hematoma within surgical area. She was restarted on Lovenox for PE treatment and this could have caused her to bleed into the surgical field and cause a hematoma. At this point due to her maintained strengths currently, I do not feel it is necessarily compressive, however CT will help visualize this. Her drain is in place, but has had scant output since yesterday, which is also concerning for hematoma, but her dressing is completely clean and dry with one old spot smaller than the size of a dime. On palpation of her back she does have pain over the incision site, but there is no palpable region of fluid collection, mass or drainage from wound or surgical area. There is no leakage around the drain site currently. I will evaluate the CT once available. I will add gabapentin 300mg TID for some of the nerve pain. She is on decadron 6q6 currently and her insulin is being titrated appropriately. She is on morphine, which seems to help but mildly. We could try changing her to low doses of dilaudid 0.25 and 0.5 mg for moderate and severe pain and see if this helps her more. She does have robaxin available as well for muscle spasms. We will re-eval. While our work was lower than cord level below are some signs and symptoms of emergent issues with cord level injury for reference. Spinal Cord Emergent Symptoms Cardiovascular: orthostasis with progressive sitting, needs monitoring for orthostatic hypotension normal BP in spinal cord patient of this level is 90/[address] binder prior to sitting up, and remove when supine thigh high TEDs also helpful - place on in day and off at night Autonomic dysreflexia: patients with T6 and above spinal cord lesions are at risk for AD this is an EMERGENCY and can lead to heart attack or stroke if not treated it is ALWAYS due to something irritating the body below the neurologic level of injury presentation is normally sudden hypertension with bradycardia symptoms include the following: sweating, redness, flushing, headache, congestion, chills above the level of injury treatment follows Sit patient fully upright Loosen abdominal binders, TEDs, and clothing, remove shoes Make sure Sears is not kinked and draining Check bed for anything poking the skin Perform bowel program if constipated Check blood pressure every 5 minutes - once etiology is found, BP will quickly resume to normal If BP remains elevated, would treat temporarily with nitro paste 1/2 -1 inch as this can be wiped off once AD resolves most common etiologies: bladder obstruction, pain, constipation Gastrointestinal: neurogenic bowel 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 with impaired bowel sensory awareness, coordination, and control after spinal cord injury, the bowels tend to be slow and uncoordinated, leading to poor regulation of evacuation, constipation, and multiple daily BMs needs regulation of bowels with daily bowel program recommend to continue Senna ii po QHS and MiraLAX daily continue Dulcolax TN qPM DO NOT hold meds with multiple stools, may take time to regulate goal is scheduled program and continence throughout the rest of the day Program Same time daily, preferably in am or pm after a meal Lie patient on left side Insert suppository Wait about 30 min Perform digital stimulation every 15 min X3 or until good results Genitourinary: neurogenic bladder - neurogenic bladder due to spinal cord injury with impaired bladder ascending sensory awareness and impaired cortical descending bladder control - after spinal cord injury, bladder tends to have tight urinary sphincter with impaired ability to void, decreased squeeze and and emptying, and tendency to overdistention - sears in place - unclear if patient will be able to void but would only attempt voiding trial when staff and patient agreeable to the following bladder retraining program - timed void q4h, check PVR and ICP if > 500cc - please document amount voided, PVR and cath volumes in flow sheets - goal voiding volumes of 400-500cc - goal voiding more than retaining and routine PVRs < 100cc - please do NOT place condom catheterpurewick in this patient - condom catheterpurewick is only a urinary collection device and does not cross the urinary sphincter, not treating urinary retention can lead to bladder distention and overflow incontinence - flomax - recommend starting this medication 0.4 mg po qhs, monitor for am orthostatic hypotension, noting this medication can take 2-4 weeks to reach full effect Skin: - high risk for skin breakdown due to impaired sensation - specialty bed - turn q2h, pad bony areas - check skin daily Prophylaxis: high risk for DVT, recommend lovenox for at least 12 weeks
[2020-04-18 17:28] LABS: Band Neutrophils % 13 %; Lymphocytes # (M) 0.23 k/uL (1.0-4.8); Monocytes # (M) 1.04 k/uL (0-1.0); Neutrophils % (M) 76 %; Nucleated Red Blood Cells 0 /100 WBC (0-0); Total Cells Counted 100
[2020-04-18 17:29] LABS: Platelet Count 75 k/uL (150-450)
--- NOTE | 2020-04-18 17:29 | CT ---
EXAMINATION: CT brain wo con DATE AND TIME: 04/18/2020 5:15 PM CLINICAL INDICATION: PHH; Severe pain, Post OP TECHNIQUE: Standard departmental protocol.; 1095; COMPARISON: 07/16/2015 FINDINGS: The calvarium is intact. There is no intracranial hemorrhage. There is no intracranial mass or mass effect. No definite new intra-axial or extra-axial attenuation defect. The paranasal sinuses, middle ear cavities, and mastoid sinus air cells are clear. The orbits are unremarkable. IMPRESSION: NO ACUTE PROCESS.
[2020-04-18] MEDS ORDERED: DOCUSATE 100 MG CAP PO PRN (17:36)
[2020-04-18] MEDS: POTASSIUM CHLORIDE 10 MEQ in WATER FOR INJECTION 1 100ML.BAG IVPB SCH ×2 (18:07→21:04)
[2020-04-18] MEDS: VANCOMYCIN 1,250 MG in SODIUM CHLORIDE 0.9% 250 ML IVPB SCH (18:08)
[2020-04-18] MEDS: ACETAMINOPHEN TAB 500 MG TAB PO SCH (18:12)
[2020-04-18] MEDS: GABAPENTIN 300 MG CAP PO SCH ×2 (18:12→21:53)
--- NOTE | 2020-04-18 19:04 | CT ---
EXAMINATION TYPE: CT CervThorLumbar spine wo con DATE OF EXAM: 04/18/2020 COMPARISON: None HISTORY: severe pain post op CT DLP: 2825.6 mGycm Automated exposure control for dose reduction was used. FINDINGS: Cervical Spine: Negative for fracture or malalignment. No incidental findings. Thoracic Spine: The upper and mid thoracic spine is negative for fracture or malalignment or incident al findings. There are scattered gas bubbles in the dorsal spinal musculature of the lower dorsal spi ne. This finding is only partially visualized on this study. Please see same day spine CT examination s. IMPRESSION: 1. No acute cervical spine process. 2. Partial visualization of the lower thoracic spine dorsal spinal musculature soft tissue emphysema .
[2020-04-18 20:42] LABS: Glucose,Whole Blood 135 mg/dL (75-99)
[2020-04-18 23:58] LABS: Glucose,Whole Blood 136 mg/dL (75-99)
[2020-04-19] MEDS: ACETAMINOPHEN TAB 500 MG TAB PO SCH ×4 (00:01→17:29)
[2020-04-19] MEDS: DEXAMETHASONE SOD PHOSPHATE 4 MG/ML 1 ML VIAL IV SCH ×4 (00:04→17:29)
[2020-04-19] MEDS: SODIUM CHLORIDE 0.9% 1,000 ML IV SCH ×4 (00:18→17:31)
[2020-04-19 04:27] LABS: Glucose,Whole Blood 130 mg/dL (75-99)
[2020-04-19] MEDS: INSULIN ASPART (NovoLOG) 100 UNIT/ML VIAL SQ SCH ×7 (04:40→21:51)
[2020-04-19] MEDS: NOREPINEPHRINE 4 MG in SODIUM CHLORIDE 0.9% 250 ML IV SCH ×2 (04:41→18:20)
[2020-04-19 04:48] LABS: ALT 19 U/L (4-34); AST 34 U/L (14-36); African American GFR (CKD) >90 (>60 ml/min/1.73 sqM); Albumin 2.1 g/dL (3.5-5.0); Alkaline Phosphatase 42 U/L (38-126); Anion Gap 2 mmol/L; Blood Urea Nitrogen 11 mg/dL (7-17); Calcium 7.6 mg/dL (8.4-10.2); Carbon Dioxide 20 mmol/L (22-30); Chloride 115 mmol/L (98-107); Glucose 123 mg/dL (74-99); Non-African American GFR(CKD) >90 (>60 ml/min/1.73 sqM); Potassium 3.5 mmol/L (3.5-5.1); Sodium 137 mmol/L (137-145); Total Bilirubin 0.9 mg/dL (0.2-1.3); Total Protein 3.9 g/dL (6.3-8.2)
[2020-04-19 04:56] LABS: HCT 26.7 % (34.0-46.0); HGB 9.1 gm/dL (11.4-16.0); MCH 31.2 pg (25.0-35.0); MCHC 34.2 g/dL (31.0-37.0); MCV 91.5 fL (80.0-100.0); Mean Platelet Volume 7.6; RBC 2.92 m/uL (3.80-5.40); RDW 15.8 % (11.5-15.5); WBC 10.7 k/uL (3.8-10.6)
[2020-04-19 04:58] LABS: Platelet Count 75 k/uL (150-450)
[2020-04-19] MEDS: POTASSIUM CHLORIDE 20 MEQ in WATER FOR INJECTION 1 100ML.BAG IVPB SCH ×2 (05:03→07:12)
[2020-04-19 05:56] LABS: Band Neutrophils % 12 %; Lymphocytes # (M) 0.21 k/uL (1.0-4.8); Metamyelocytes # (M) 0.32 k/uL (0); Metamyelocytes % 3 %; Monocytes # (M) 0.54 k/uL (0-1.0); Neutrophils % (M) 78 %; Nucleated Red Blood Cells 0 /100 WBC (0-0); Total Cells Counted 100
[2020-04-19 08:10] LABS: Glucose,Whole Blood 239 mg/dL (75-99)
[2020-04-19] MEDS: VANCOMYCIN 1,250 MG in SODIUM CHLORIDE 0.9% 250 ML IVPB SCH ×2 (08:11→20:04)
[2020-04-19] MEDS: GABAPENTIN 300 MG CAP PO SCH ×3 (08:12→22:07)
[2020-04-19] MEDS: ENOXAPARIN 60 MG/0.6 ML SYRINGE SQ SCH ×2 (08:12→22:08)
[2020-04-19] MEDS: PANTOPRAZOLE 40 MG/10 ML VIAL IV SCH (08:12)
--- NOTE | 2020-04-19 08:12 | P.PN ---
Subjective Progress Note Date: 04/19/20 Principal diagnosis: T12-L1 severe stenosis with impending conus syndrome and RLE weakness Patient was seen and examined this morning with nursing at bedside. She is sitting up almost to 80 and doing very well with no headaches, nausea, vomiting. Patient is currently eating breakfast as well. She states she feels much better than yesterday. She denies any fevers, chills shortness of breath or chest pain. She does state some burning in her legs still, however, this is getting better. She denies back pain at this time. She states no new numbness or tingling. She states no new weakness and states that her right lower extremity seems to be stronger. The patient did receive 1 unit of PRBCs Yesterday. Her pressure is doing much better off of any levophed. Her maps are in the 70s to 80s. Nursing states that she did very well last night and only needed one dose of pain medication and the Tylenol seems to be helping her quite a bit. Objective - Vital Signs Vital signs: Vital Signs Temp 96.6 F L 04/19/20 04:00 Pulse 87 04/19/20 07:00 Resp 24 04/19/20 07:00 BP 87/65 04/19/20 05:00 Pulse Ox 98 04/19/20 07:00 Intake & Output 04/18/20 04/19/20 04/19/20 18:59 06:59 18:59 Intake Total 3027.288 2293 128 Output Total 869 1125 100 Balance 2158.288 1168 28 Weight 69.2 kg 71.2 kg Intake: IV 2883 1733 128 Lactated Ringers 1,000 ml 250 @ 125 mls/hr IV .Q8H [facility] Rx#:[id number] Potassium Chloride 10 meq 100 100 In Water For Injection 1 100ml.bag @ 100 mls/hr IVPB Q1H [facility] Rx#: [id number] Potassium Chloride 20 meq 100 In Water For Injection 1 100ml.bag @ 50 mls/hr IVPB Q2H [facility] Rx#: [id number] Pressure Bag 33 33 3 Sodium Chloride 0.9% 1, 1250 1500 125 000 ml @ 125 mls/hr IV . Q8H [facility] Rx#:[id number] Sodium Chloride 0.9% 1, 1000 000 ml @ 999 mls/hr IV . Q1H1M [facility] Rx#:[id number] Vancomycin 1,250 mg In 250 Sodium Chloride 0.9% 250 ml @ 125 mls/hr IVPB Q16H [facility] Rx#:[id number] Intake, IV Titration 144.288 Amount Norepinephrine 4 mg In 144.288 Sodium Chloride 0.9% 250 ml @ 0.05 MCG/KG/MIN 11. 925 mls/hr IV .[id number] [facility] Rx#:[id number] Oral 250 Blood Product 310 Rc Irr As1 Unit 310 [id number] Output: Urine 869 1125 100 Other: Voiding Method Indwelling Catheter Indwelling Catheter # Voids 2 ABP, PAP, CO, CI - Last Documented Arterial Blood Pressure 107/60 - Exam Exam is stable. There is no change currently. MOTOR EXAM (0-5/5, N/T) STRENGTH RIGHT LEFT Shoulder Abd (not part of the LEONA score) 5 5 Elbow Flexors 5 5 Elbow Extensor 5 5 Wrist Dorsiflexors 5 5 Finger Abductor 5 5 Clamp Remover 5 5 Hip Flexor (Not part of LEONA Motor score) 5 4+ Knee Flexor 5 5 Knee Extensor 5 4- Ankle dorsiflexor 5 2 Ankle plantarflexion 5 3 Extensor hallucis 5 2 REFLEXES(0-4/2, NT) RIGHTLEFT Upper Extremities 2 2 Lower Extremities 2 2 Pathological ReflexesRIGHTLEFT Franklin's Absent Absent Clonus Absent Absent CN II-XII grossly intact. Negative babinski b/l Sensation is intact to light touch and pain in the lower extremity is bilaterally in the L2 to S1 nerve distribution. Incision is clean, dry and intact. Drain is in place. Minimal to no output. We will likely pull today On palpation, there is no hematoma noted - Neurologic Neurologic: Present: CNII-XII intact - Psychiatric Psychiatric: Present: A&O x's 3, appropriate affect, intact judgment & insight - Labs CBC & Chem 7: 04/19/20 04:25 04/19/20 04:25 Labs: Abnormal Lab Results - Last 24 Hours (Table) 04/16/20 04/18/20 04/18/20 Range/Units 09:09 11:19 16:13 WBC (3.8-10.6) k/uL RBC (3.80-5.40) m/uL Hgb (11.4-16.0) gm/dL Hct (34.0-46.0) % RDW (11.5-15.5) % Plt Count (150-450) k/uL Neutrophils # (Manual) (1.3-7.7) k/uL Lymphocytes # (Manual) (1.0-4.8) k/uL Monocytes # (Manual) (0-1.0) k/uL Metamyelocytes # (Man) (0) k/uL Chloride 114 H (98-107) mmol/L Carbon Dioxide 17 L (22-30) mmol/L Glucose 135 H (74-99) mg/dL POC Glucose (mg/dL) 133 H (75-99) mg/dL Plasma Lactic Acid Luis (0.7-2.0) mmol/L Calcium 7.8 L (8.4-10.2) mg/dL AST 39 H (14-36) U/L Total Protein 4.1 L (6.3-8.2) g/dL Albumin 2.3 L (3.5-5.0) g/dL Crossmatch See Detail 04/18/20 04/18/20 04/18/20 Range/Units 16:13 16:13 16:16 WBC 11.5 H (3.8-10.6) k/uL RBC 2.60 L (3.80-5.40) m/uL Hgb 8.0 L (11.4-16.0) gm/dL Hct 23.7 L (34.0-46.0) % RDW 15.9 H (11.5-15.5) % Plt Count 75 L (150-450) k/uL Neutrophils # (Manual) 10.20 H (1.3-7.7) k/uL Lymphocytes # (Manual) 0.23 L (1.0-4.8) k/uL Monocytes # (Manual) 1.04 H (0-1.0) k/uL Metamyelocytes # (Man) (0) k/uL Chloride (98-107) mmol/L Carbon Dioxide (22-30) mmol/L Glucose (74-99) mg/dL POC Glucose (mg/dL) 150 H (75-99) mg/dL Plasma Lactic Acid Luis 2.5 H* (0.7-2.0) mmol/L Calcium (8.4-10.2) mg/dL AST (14-36) U/L Total Protein (6.3-8.2) g/dL Albumin (3.5-5.0) g/dL Crossmatch 04/18/20 04/18/20 04/19/20 Range/Units 20:40 23:57 04:23 WBC (3.8-10.6) k/uL RBC (3.80-5.40) m/uL Hgb (11.4-16.0) gm/dL Hct (34.0-46.0) % RDW (11.5-15.5) % Plt Count (150-450) k/uL Neutrophils # (Manual) (1.3-7.7) k/uL Lymphocytes # (Manual) (1.0-4.8) k/uL Monocytes # (Manual) (0-1.0) k/uL Metamyelocytes # (Man) (0) k/uL Chloride (98-107) mmol/L Carbon Dioxide (22-30) mmol/L Glucose (74-99) mg/dL POC Glucose (mg/dL) 135 H 136 H 130 H (75-99) mg/dL Plasma Lactic Acid Luis (0.7-2.0) mmol/L Calcium (8.4-10.2) mg/dL AST (14-36) U/L Total Protein (6.3-8.2) g/dL Albumin (3.5-5.0) g/dL Crossmatch 04/19/20 04/19/20 Range/Units 04:25 04:25 WBC 10.7 H (3.8-10.6) k/uL RBC 2.92 L (3.80-5.40) m/uL Hgb 9.1 L (11.4-16.0) gm/dL Hct 26.7 L (34.0-46.0) % RDW 15.8 H (11.5-15.5) % Plt Count 75 L (150-450) k/uL Neutrophils # (Manual) 9.60 H (1.3-7.7) k/uL Lymphocytes # (Manual) 0.21 L (1.0-4.8) k/uL Monocytes # (Manual) (0-1.0) k/uL Metamyelocytes # (Man) 0.32 H (0) k/uL Chloride 115 H (98-107) mmol/L Carbon Dioxide 20 L (22-30) mmol/L Glucose 123 H (74-99) mg/dL POC Glucose (mg/dL) (75-99) mg/dL Plasma Lactic Acid Luis (0.7-2.0) mmol/L Calcium 7.6 L (8.4-10.2) mg/dL AST (14-36) U/L Total Protein 3.9 L (6.3-8.2) g/dL Albumin 2.1 L (3.5-5.0) g/dL Crossmatch Assessment and Plan Assessment: 80-year-old female postop day 2 from T12 to L2 posterior lateral instrumented fusion with T12 to L2 decompression laminectomy, left pedicle subtraction L1, dural erosion and repair. 1. T12-L1 severe spondylosis. 2. 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 Adjacent segment disease T12-L1 4. R foot drop, improved with improved hip flexion on the right. Postoperatively Plan: 1. Appreciate ICU management. Maintain maps of 70 or greater. 2. Patient cleared to sit up in chair and attempt to ambulate with assist 3. Continue Decadron 6 mg every 6 hours. 4. Pain control, we changed her to Tylenol 1000 mg scheduled, OxyIR, Robaxin, and this seems to be helping her 5. DC drain today 6. Neuro checks every 2 hours 7. Trend labs transfuse if hemoglobin less than 8 or hematocrit less than 23. Patient received 1 unit PRBCs yesterday and is doing much better from this 8. PT, OT . No braces needed for ambulation but OK for comfort when up and about 9. Patient on Lovenox for DVT and PE treatment 10. Continue vancomycin. Postoperative 11. We will follow closely
[2020-04-19] MEDS: IPRATROPIUM BROMIDE 0.06% NASAL SPRAY (15 ML) EA NOSTRIL SCH ×2 (08:13→22:11)
[2020-04-19] MEDS: allopurinoL 100 MG TAB PO SCH (08:13)
[2020-04-19] MEDS: atenoloL 50 MG TAB PO SCH ×2 (09:41→22:08)
[2020-04-19 12:12] LABS: Glucose,Whole Blood 193 mg/dL (75-99)
[2020-04-19] MEDS: FLUoxetine HCL 10 MG CAP PO SCH (12:17)
--- NOTE | 2020-04-19 12:49 | P.PN ---
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 Rocha, who we had re cently seen in consultation on 03/09/2020 1 patient was hospitalized with the right lower lobe pulmonary embolism, which was unprovoked, and acute on chronic DVT involving the left lower extremity. Patient at that time was started on Eliquis. Other medical history includes history of non-Hodgkin's lymphoma which has been in remission since 1993, family history of thromboembolic disease and pulmonary embolism with the factor V Leiden mutation, type 2 diabetes, history of GI bleeding, DJD, hypertension, hypothyroidism, history of TIA and chronic low back pain. She was seen in follow-up by Dr. Rosario in the office, and patient was planning on having surgery on her back, and the plan was to continue with the 3 months of anticoagulation prior to surgery. On 04/15/2020 patient presented to the emergency department per EMS with complaints of lower back pain, significant weakness in the right leg, with foot drop, and one episode of urinary incontinence. CT of the thoracic and lumbar spine shows multilevel posterior fusion surgery, spinal stenosis present at T12 to L1 with bony metastases in the spinal canal anteriorly on the left side but no acute fracture. Today she is having increased loss of sensation in the right lower extremity. She was evaluated by Dr. Plummer, who diagnosed the patient with the T12 to L1 severe spondylosis, T12 to L1 disc osteophyte complex with severe canal stenosis and impending conus syndrome, and recommended surgery with L1-2 removal of hardware with T12 to L2 decompression and fusion. Dr. Edward's and discussed the case with Dr. Rosario, and in view of rapid progression disabling nature of patient's symptoms, patient is cleared for surgery from pulmonary perspective and the recommendation to hold Eliquis for 1-2 days prior to surgery. Patient is currently not complaining of any pulmonary complaints, she is on room air with pulse ox of 95-98%, hemodynamically patient is stable. She has received at least 5 weeks of anticoagulation. Today's chest x-ray shows no acute cardiopulmonary process. Her labs have been reviewed, showing white blood cell count of 7.1, hemoglobin of 13.7, sodium 139, potassium 3.7, chloride is 111, CO2 is 21, BUN of 20 creatinine 0.76, LFTs were within normal limits. Vitals signs have been stable. Patient was reevaluated today on 04/18/20, patient is status post surgery for severe T12-L1 severe stenosis with impending conus syndrome and right lower extremity weakness. Patient was brought into the ICU late at night, and she was borderline hypotensive, required fluid boluses in the form of lactated Ringer's, she also required placement on norepinephrine drip to maintain a blood pressure with a mean of above 65. Presently her mean is 75, and she is on levo at 0.1 mcg/kg/m. Patient is doing fairly well, relatively asymptomatic, pain seems to be under control. Receiving morphine for pain control. Urine output is marginal 20-30 mL/h, hence I recommended another bolus of 0.9 normal saline, and I recommended that we start the patient on Lovenox 60 mg subcu every 12 hours mostly because of her recent history of DVT and pulmonary embolism. Patient was also seen by surgery and she informed the surgeon that the pain in her legs is much better. She can lift her right leg up off the bed, but she continues to have issues with dorsiflexion and plantar flexion. The surgeon felt that her left lower extremity is completely functional and her groin numbness and tingling seems to be improving. Labs today showed WBC count of 11.8 hemoglobin of 8.7. Electrolytes are normal except for slightly low potassium of 3.3 being corrected as per protocol. Patient was reevaluated today on 04/19/20, remains in the ICU, doing much better today compared to yesterday in p.m. Patient developed an episode of hypotension and tachycardia , patient responded to fluid boluses, and she received a unit of packed RBCs for a hemoglobin of 8. CT of the brain and CT of the spine came back basically unremarkable. Patient is hemodynamically stable today, she is in normal sinus rhythm, hemodynamically stable, not requiring any norepinephrine. Denies any headache, no nausea, no vomiting, denies any fever or chills, denies any shortness of breath. Minimal burning sensation in legs, improved compared to yesterday p.m. No new neurological changes in her lower extremities. Labs today showed normal WBC count, hemoglobin is 9.1, elective lites are normal. Renal profile is normal. Patient is back on Lovenox grams subcu every 12 hours mostly because the patient is high risk for deep vein thromboses and thrombus embolic disease Objective - Vital Signs Vital signs: Vital Signs Temp 97.9 F 04/19/20 12:00 Pulse 93 04/19/20 12:00 Resp 18 04/19/20 12:00 BP 87/65 04/19/20 05:00 Pulse Ox 93 L 04/19/20 12:00 Intake & Output 04/18/20 04/19/20 04/19/20 18:59 06:59 18:59 Intake Total 3027.288 2293 1018 Output Total 869 1125 625 Balance 2158.288 1168 393 Weight 69.2 kg 71.2 kg Intake: IV 2883 1733 1018 Lactated Ringers 1,000 ml 250 @ 125 mls/hr IV .Q8H [facility] Rx#:[id number] Potassium Chloride 10 meq 100 100 In Water For Injection 1 100ml.bag @ 100 mls/hr IVPB Q1H [facility] Rx#: [id number] Potassium Chloride 20 meq 100 In Water For Injection 1 100ml.bag @ 50 mls/hr IVPB Q2H [facility] Rx#: [id number] Pressure Bag 33 33 18 Sodium Chloride 0.9% 1, 1250 1500 750 000 ml @ 75 mls/hr IV . [id number] [facility] Rx#:[id number] Sodium Chloride 0.9% 1, 1000 000 ml @ 999 mls/hr IV . Q1H1M [facility] Rx#:[id number] Vancomycin 1,250 mg In 250 250 Sodium Chloride 0.9% 250 ml @ 125 mls/hr IVPB Q16H [facility] Rx#:[id number] Intake, IV Titration 144.288 Amount Norepinephrine 4 mg In 144.288 Sodium Chloride 0.9% 250 ml @ 0.05 MCG/KG/MIN 11. 925 mls/hr IV .[id number] [facility] Rx#:[id number] Oral 250 Blood Product 310 Rc Irr As1 Unit 310 [id number] Output: Urine 869 1125 625 Other: Voiding Method Indwelling Catheter Indwelling Catheter Indwelling Catheter # Voids 2 ABP, PAP, CO, CI - Last Documented Arterial Blood Pressure 116/59 - Exam GENERAL EXAM: Revealed 80-year-old female pleasant, in no distress, on 2 L nasal cannula, O2 saturations 96%. HEAD: Normocephalic/atraumatic. EENT: PERRLA, EOMI, neck this, no neck masses, no JVD, no stridor. Right IJ central line is noted. CHEST: No chest wall deformity. Symmetrical expansion. LUNGS: Symmetrical expansion, good vessel bilaterally rhonchi no wheezes. CVS: Regular rate and rhythm, normal S1 and S2, no gallops, no murmurs, no rubs ABDOMEN: Soft, nontender. No hepatosplenomegaly, normal bowel sounds, no guarding or rigidity. EXTREMITIES: No clubbing, no edema, no cyanosis, 2+ pulses and upper and lower extremities. SKIN: No rashes CENTRAL NERVOUS SYSTEM: Alert and oriented 3, no gross focal deficits.. Weakness in lower extremities is about the same compared to yesterday PSYCHIATRIC: Normal mood, affect and normal mental status examination. - Labs CBC & Chem 7: 04/19/20 04:25 04/19/20 04:25 Labs: Abnormal Lab Results - Last 24 Hours (Table) 04/16/20 04/18/20 04/18/20 Range/Units 09:09 16:13 16:13 WBC (3.8-10.6) k/uL RBC (3.80-5.40) m/uL Hgb (11.4-16.0) gm/dL Hct (34.0-46.0) % RDW (11.5-15.5) % Plt Count (150-450) k/uL Neutrophils # (Manual) (1.3-7.7) k/uL Lymphocytes # (Manual) (1.0-4.8) k/uL Monocytes # (Manual) (0-1.0) k/uL Metamyelocytes # (Man) (0) k/uL Chloride 114 H (98-107) mmol/L Carbon Dioxide 17 L (22-30) mmol/L Glucose 135 H (74-99) mg/dL POC Glucose (mg/dL) (75-99) mg/dL Plasma Lactic Acid Luis 2.5 H* (0.7-2.0) mmol/L Calcium 7.8 L (8.4-10.2) mg/dL AST 39 H (14-36) U/L Total Protein 4.1 L (6.3-8.2) g/dL Albumin 2.3 L (3.5-5.0) g/dL Crossmatch See Detail 04/18/20 04/18/20 04/18/20 Range/Units 16:13 16:16 20:40 WBC 11.5 H (3.8-10.6) k/uL RBC 2.60 L (3.80-5.40) m/uL Hgb 8.0 L (11.4-16.0) gm/dL Hct 23.7 L (34.0-46.0) % RDW 15.9 H (11.5-15.5) % Plt Count 75 L (150-450) k/uL Neutrophils # (Manual) 10.20 H (1.3-7.7) k/uL Lymphocytes # (Manual) 0.23 L (1.0-4.8) k/uL Monocytes # (Manual) 1.04 H (0-1.0) k/uL Metamyelocytes # (Man) (0) k/uL Chloride (98-107) mmol/L Carbon Dioxide (22-30) mmol/L Glucose (74-99) mg/dL POC Glucose (mg/dL) 150 H 135 H (75-99) mg/dL Plasma Lactic Acid Luis (0.7-2.0) mmol/L Calcium (8.4-10.2) mg/dL AST (14-36) U/L Total Protein (6.3-8.2) g/dL Albumin (3.5-5.0) g/dL Crossmatch 04/18/20 04/19/20 04/19/20 Range/Units 23:57 04:23 04:25 WBC (3.8-10.6) k/uL RBC (3.80-5.40) m/uL Hgb (11.4-16.0) gm/dL Hct (34.0-46.0) % RDW (11.5-15.5) % Plt Count (150-450) k/uL Neutrophils # (Manual) (1.3-7.7) k/uL Lymphocytes # (Manual) (1.0-4.8) k/uL Monocytes # (Manual) (0-1.0) k/uL Metamyelocytes # (Man) (0) k/uL Chloride 115 H (98-107) mmol/L Carbon Dioxide 20 L (22-30) mmol/L Glucose 123 H (74-99) mg/dL POC Glucose (mg/dL) 136 H 130 H (75-99) mg/dL Plasma Lactic Acid Luis (0.7-2.0) mmol/L Calcium 7.6 L (8.4-10.2) mg/dL AST (14-36) U/L Total Protein 3.9 L (6.3-8.2) g/dL Albumin 2.1 L (3.5-5.0) g/dL Crossmatch 04/19/20 04/19/20 04/19/20 Range/Units 04:25 08:09 12:10 WBC 10.7 H (3.8-10.6) k/uL RBC 2.92 L (3.80-5.40) m/uL Hgb 9.1 L (11.4-16.0) gm/dL Hct 26.7 L (34.0-46.0) % RDW 15.8 H (11.5-15.5) % Plt Count 75 L (150-450) k/uL Neutrophils # (Manual) 9.60 H (1.3-7.7) k/uL Lymphocytes # (Manual) 0.21 L (1.0-4.8) k/uL Monocytes # (Manual) (0-1.0) k/uL Metamyelocytes # (Man) 0.32 H (0) k/uL Chloride (98-107) mmol/L Carbon Dioxide (22-30) mmol/L Glucose (74-99) mg/dL POC Glucose (mg/dL) 239 H 193 H (75-99) mg/dL Plasma Lactic Acid Luis (0.7-2.0) mmol/L Calcium (8.4-10.2) mg/dL AST (14-36) U/L Total Protein (6.3-8.2) g/dL Albumin (3.5-5.0) g/dL Crossmatch Assessment and Plan Assessment: Impression: Postoperative Hypovolemic hypotension, responded to fluid boluses and to 1 unit of packed RBCs given yesterday. Strongly doubt sepsis. T12-L1 severe spondylosis T12-L1 disc osteophyte complex with severe canal stenosis and impending conus syndrome Right foot drop. Status post: 1. T12-L2 decompressive laminectomy T12-L21 2. L L1 pedical subtraction 3. T12-L1 Interbody fusion 4. T12-L2 posteriolateral instrumented fusion 5. Mass decompression with conus decompression 6. Repair of dural erosion History of multiple comorbidities including recent unprovoked pulmonary embolism with left lower extremity DVT, patient received a total of 5 weeks of anticoagulation therapy on outpatient basis. Hence patient will have to be started on Lovenox, and I will recommend 60 mg subcu every 12 hours, with clear the Lovenox with orthopedic surgery. Patient is definitely high risk for deep vein thromboses and pulmonary embolism, she has known family history of factor V Leyden mutation. History of CVA/TIA. History of non-Hodgkin's lymphoma History of hypothyroidism History of type 2 diabetes. Recommendation: Off norepinephrine since 4 AM this morning. Patient responded well to fluid boluses and to 1 unit of packed RBCs given yesterday for hypotension and tachycardia. He also required norepinephrine, diagnostic workup was negative. Patient was empirically started on vancomycin by orthopedics, however I believe it is too early to consider sepsis. And sepsis is very unlikely at this point Continue Lovenox 60 mg subcu every 12 hours. Continue incentive spirometry. Continue Decadron. As per orthopedics on the case. Continue pain control management. Continue neuro checks. Physical therapy and occupational therapy. We'll continue to monitor in the ICU. We'll continue to follow. Time with Patient: Less than 30
--- NOTE | 2020-04-19 13:28 | P.PN ---
Progress Note - Text Progress Note Date: 04/19/20 Pt s/e. Up in chair. Daughter arrived at bedside. States she is feeling much better than yesterday. She does state her vision is slightly blurred, but still able to see ok with glasses. No ESCOBEDO, N, V or any other neurological symptoms. She did try and take a step with PT but states her RLE is still weak. She can however, lift it off the bed and chair easily and she is even DF/PF her RLE with about 2-3/5 strength right now. She denies any other sx. No f/c/sob/cp. Daughter is encouraged by RLE movement at well. They did not have any other questions at this time. She will be monitored in ICU for pressure issues. Added caffeine to regiment to help with bp. Ordered abdominal binder to increase intraabdominal pressure and aid with pressure and any hypotension with standing. Otherwise pt is stable and improving at this time.
[2020-04-19] MEDS: MORPHINE SULFATE 4 MG/ML SYRINGE IV PRN (13:46)
--- NOTE | 2020-04-19 13:53 | P.PN ---
Subjective Progress Note Date: 04/19/20 HISTORY OF PRESENT ILLNESS This is a 80-year-old female one of Dr. Rocha patient with past medical history of type 2 diabetes, non-Hodgkin's lymphoma [place] [address] Monaco and follows with Dr. Aranda status post chemotherapy and radiation therapy, TIA 5 years ago, hypertension, hyperlipidemia, hypertension, hypothyroidism, restless leg syndrome, recurrent depression, and osteoarthritis who has been treated for lower back pain post multiple lower back surgery and epidural injection with pain management at [facility], previous admission for acute GI bleed and acute blood loss anemia status post EGD and colonoscopy which revealed antral gastritis, area of ulceration, nonbleeding, in the distal transverse colon, pulmonary embolism and left lower leg DVT diagnosed 03/08/2020 on eliquis Patient states that she has been having ongoing problems with back pain with right foot drop and lack of bladder control. She also has some right- sided weakness. She has had 2 falls including one in which she fractured her right kneecap. She has been following with Dr. Plummer and was scheduled for back surgery next week. Patient has had increasing difficulty with her leg giving out and worsening bladder and bowel control and patient is scheduled for surgery this week. She normally uses a walker for ambulation. She states the pain has been bad for several years and radiation to her chest impacted the thoracic spine when she was undergoing treatment for lymphoma. Her last dose of eliquis was on April 15. 04/17: Patient is scheduled for myelogram prior to surgical today. She has been seen by pulmonary medicine. She denies any new complaints. No shortness of breath. Patient has been afebrile, heart rate 90, blood pressure 120/79, pulse ox 96% on room air. Blood sugars are running between 123-184. 04/18: Patient is seen today in the intensive care unit. She underwent T12 through L2 decompression laminectomy, CAT scan of the lumbar spine which revealed large calcified posterior disc herniation at T12-L1. Small extradural air bubbles in the spinal canal consistent with recent surgery. CAT scan of the thoracic spine revealed fusion surgery at T12 level. Posterior pleural thickening and subsegmental atelectasis in the paraspinal mid and lower thorax appears new. Following procedure, patient became hypotensive and required transfer into the intensive care unit status post fluid boluses and norepinephrine drip. She is still on norepinephrine this morning. Lactated ringer changed to 0.9 normal saline as patient has had a high blood sugars. Patient is on Decadron 6 mg IV every 6 hours. Patient has been started on Lovenox 60 mg subcu every 12 hours due to recent diagnosis of DVT and PE. Patient has been afebrile, heart rate 105, blood pressure 95/55. Pulse ox 97% on 2 L nasal cannula. Hemoglobin is 8.7, WBC 11.8, platelet count 107. Sodium 134, potassium 3.3, chloride 111, CO2 23, creatinine 0.65. Blood sugars are running between 157 and 218. 04/19: Patient remains in the intensive care unit. She is off vasopressors and is status post fluid boluses and 1 unit packed RBCs. She states she is feeling better today. She is having some pain in her right leg with residual right leg weakness but feels like her right leg is stronger. Back pain is improved. Patient has been afebrile, heart rate 93, blood pressure 116/59, pulse ox 93% on 2 L nasal cannula. Repeat blood work reveals WBC 10.7, hemoglobin 9.1, platelet count 75. CO2 20, creatinine 0.53. Blood sugars running between 130 and 239. Last evening, patient had a CAT scan of the brain, CAT scan of the thoracic and cervical spine. All essentially normal with no acute findings. Discharge plan will be to [facility]. REVIEW OF SYSTEMS Constitutional: No fever, no chills, no night sweats. No weight change. Reports weakness, reports fatigue denies lethargy. No daytime sleepiness. EENT: No headache. No blurred vision or double vision, no loss of vision. No loss of Hearing, no ringing in the ears, Reports dizziness. No nasal drainage or congestion. No epistaxis. No sore throat. Lungs: Denies shortness of breath, cough, no sputum production. No wheezing. Cardiovascular: No chest pain, no left lower extremity edema. No palpitations. No paroxysmal nocturnal dyspnea. No orthopnea. No lightheadedness or dizziness. No syncopal episodes. Abdominal: No abdominal pain. No nausea, vomiting. No diarrhea. No constipation. No bloody or tarry stools. No loss of appetite. Genitourinary: No dysuria, increased frequency, urgency. No urinary retention. Reports incontinence, loss of bladder control Musculoskeletal: No myalgias. Reports muscle weakness, reports gait dysfunction, Reports back pain-improving. No neck pain. Integumentary: No wounds, no lesions. No rash or pruritus. No unusual bruising. No change in hair or nails. Neurologic: No aphasia. No facial droop. No change in mentation. No head injury. No headache. No paralysis. No paresthesia. Psychiatric: No depression. No anxiety. Endocrine: Reports abnormal blood sugars. PHYSICAL EXAMINATION Gen: This is A 80-year-old female. Patient is resting ICU bed appears to be comfortable and in no acute distress. No respiratory distress is noted. HEENT: Head is atraumatic, normocephalic. Pupils equal, round. Sclerae is anicteric. NECK: Supple. No JVD. No lymphadenopathy. No thyromegaly. LUNGS: Clear to auscultation. No wheezes or rhonchi. No intercostal retractions. HEART: Regular rate and rhythm. No murmur. ABDOMEN: Soft. Bowel sounds are present. No masses. No tenderness. EXTREMITIES: No pedal edema. No calf tenderness. Dorsalis pedis palpable bilaterally. NEUROLOGICAL: Patient is awake, alert and oriented x3. Cranial nerves 2 through 12 are grossly intact. ASSESSMENT AND PLAN 1. T12-L1 severe spondylosis, severe canal stenosis and impending conus syndrome status post T12 through L2 decompression laminectomy. Incentive sp irometry to reduce incidence of atelectasis and hospital-acquired pneumonia. Decadron 6 mg IV every 6 hours. Continue current pain management. 2. Postop hypotension. Patient is on vasopressor, IV fluids changed to 0.9 normal saline at 75 mL per hour, maintained in the intensive care unit. Domi guaman added. 3. Right lower lobe pulmonary embolism. Eliquis on hold 2 days prior to surgical intervention. Lovenox. 4. Diabetes mellitus type 2, uncontrolled with hyperglycemia secondary to st eroids. Hemoglobin A1c in November was 6.8. Change IV fluids to 0.9 normal saline, NovoLog scale before meals at bedtime. 5. Non-Hodgkin's lymphoma [place] [address] Monaco and follows with Dr. Shay hagen, in remission. 6. History of TIA with no deficits. 7. History of GI bleed secondary to colon ulcer in November 2019 without recurrence. Continue Protonix. 8. Hypertension. Hold amlodipine 5 mg daily, and atenolol 50 mg twice daily for hypotension. 9. Hypothyroidism. Continue levothyroxine 12.5 g daily. 10. Seasonal ALLERGIES. Continue Singulair 10 mg at bedtime. 11. Recurrent depression. Continue Prozac 30 mg daily. 12. Chronic gout. Continue allopurinol 100 mg daily. 13. Hyperlipidemia. Patient is not currently on statin. 14. Restless leg syndrome. Continue Requip. 15. GERD and GI prophylaxis. Protonix Discharge plan: [facility] for subacute rehab. Impression and plan of care have been directed as dictated by the signing physician. Karen Quintero nurse practitioner acting as scribe for signing physician. Objective - Vital Signs Vital signs: Vital Signs Temp 96.6 F L 04/19/20 04:00 Pulse 87 04/19/20 07:00 Resp 24 04/19/20 07:00 BP 87/65 04/19/20 05:00 Pulse Ox 98 04/19/20 07:00 Intake & Output 04/18/20 04/19/20 04/19/20 18:59 06:59 18:59 Intake Total 3027.288 2293 128 Output Total 869 1125 100 Balance 2158.288 1168 28 Weight 69.2 kg 71.2 kg Intake: IV 2883 1733 128 Lactated Ringers 1,000 ml 250 @ 125 mls/hr IV .Q8H [facility] Rx#:[id number] Potassium Chloride 10 meq 100 100 In Water For Injection 1 100ml.bag @ 100 mls/hr IVPB Q1H [facility] Rx#: [id number] Potassium Chloride 20 meq 100 In Water For Injection 1 100ml.bag @ 50 mls/hr IVPB Q2H [facility] Rx#: [id number] Pressure Bag 33 33 3 Sodium Chloride 0.9% 1, 1250 1500 125 000 ml @ 125 mls/hr IV . Q8H [facility] Rx#:[id number] Sodium Chloride 0.9% 1, 1000 000 ml @ 999 mls/hr IV . Q1H1M [facility] Rx#:[id number] Vancomycin 1,250 mg In 250 Sodium Chloride 0.9% 250 ml @ 125 mls/hr IVPB Q16H [facility] Rx#:[id number] Intake, IV Titration 144.288 Amount Norepinephrine 4 mg In 144.288 Sodium Chloride 0.9% 250 ml @ 0.05 MCG/KG/MIN 11. 925 mls/hr IV .[id number] [facility] Rx#:[id number] Oral 250 Blood Product 310 Rc Irr As1 Unit 310 [id number] Output: Urine 869 1125 100 Other: Voiding Method Indwelling Catheter Indwelling Catheter # Voids 2 ABP, PAP, CO, CI - Last Documented Arterial Blood Pressure 107/60 - Labs CBC & Chem 7: 04/19/20 04:25 04/19/20 04:25 Labs: Abnormal Lab Results - Last 24 Hours (Table) 04/16/20 04/18/20 04/18/20 Range/Units 09:09 11:19 16:13 WBC (3.8-10.6) k/uL RBC (3.80-5.40) m/uL Hgb (11.4-16.0) gm/dL Hct (34.0-46.0) % RDW (11.5-15.5) % Plt Count (150-450) k/uL Neutrophils # (Manual) (1.3-7.7) k/uL Lymphocytes # (Manual) (1.0-4.8) k/uL Monocytes # (Manual) (0-1.0) k/uL Metamyelocytes # (Man) (0) k/uL Chloride 114 H (98-107) mmol/L Carbon Dioxide 17 L (22-30) mmol/L Glucose 135 H (74-99) mg/dL POC Glucose (mg/dL) 133 H (75-99) mg/dL Plasma Lactic Acid Luis (0.7-2.0) mmol/L Calcium 7.8 L (8.4-10.2) mg/dL AST 39 H (14-36) U/L Total Protein 4.1 L (6.3-8.2) g/dL Albumin 2.3 L (3.5-5.0) g/dL Crossmatch See Detail 04/18/20 04/18/20 04/18/20 Range/Units 16:13 16:13 16:16 WBC 11.5 H (3.8-10.6) k/uL RBC 2.60 L (3.80-5.40) m/uL Hgb 8.0 L (11.4-16.0) gm/dL Hct 23.7 L (34.0-46.0) % RDW 15.9 H (11.5-15.5) % Plt Count 75 L (150-450) k/uL Neutrophils # (Manual) 10.20 H (1.3-7.7) k/uL Lymphocytes # (Manual) 0.23 L (1.0-4.8) k/uL Monocytes # (Manual) 1.04 H (0-1.0) k/uL Metamyelocytes # (Man) (0) k/uL Chloride (98-107) mmol/L Carbon Dioxide (22-30) mmol/L Glucose (74-99) mg/dL POC Glucose (mg/dL) 150 H (75-99) mg/dL Plasma Lactic Acid Luis 2.5 H* (0.7-2.0) mmol/L Calcium (8.4-10.2) mg/dL AST (14-36) U/L Total Protein (6.3-8.2) g/dL Albumin (3.5-5.0) g/dL Crossmatch 04/18/20 04/18/20 04/19/20 Range/Units 20:40 23:57 04:23 WBC (3.8-10.6) k/uL RBC (3.80-5.40) m/uL Hgb (11.4-16.0) gm/dL Hct (34.0-46.0) % RDW (11.5-15.5) % Plt Count (150-450) k/uL Neutrophils # (Manual) (1.3-7.7) k/uL Lymphocytes # (Manual) (1.0-4.8) k/uL Monocytes # (Manual) (0-1.0) k/uL Metamyelocytes # (Man) (0) k/uL Chloride (98-107) mmol/L Carbon Dioxide (22-30) mmol/L Glucose (74-99) mg/dL POC Glucose (mg/dL) 135 H 136 H 130 H (75-99) mg/dL Plasma Lactic Acid Luis (0.7-2.0) mmol/L Calcium (8.4-10.2) mg/dL AST (14-36) U/L Total Protein (6.3-8.2) g/dL Albumin (3.5-5.0) g/dL Crossmatch 04/19/20 04/19/20 04/19/20 Range/Units 04:25 04:25 08:09 WBC 10.7 H (3.8-10.6) k/uL RBC 2.92 L (3.80-5.40) m/uL Hgb 9.1 L (11.4-16.0) gm/dL Hct 26.7 L (34.0-46.0) % RDW 15.8 H (11.5-15.5) % Plt Count 75 L (150-450) k/uL Neutrophils # (Manual) 9.60 H (1.3-7.7) k/uL Lymphocytes # (Manual) 0.21 L (1.0-4.8) k/uL Monocytes # (Manual) (0-1.0) k/uL Metamyelocytes # (Man) 0.32 H (0) k/uL Chloride 115 H (98-107) mmol/L Carbon Dioxide 20 L (22-30) mmol/L Glucose 123 H (74-99) mg/dL POC Glucose (mg/dL) 239 H (75-99) mg/dL Plasma Lactic Acid Luis (0.7-2.0) mmol/L Calcium 7.6 L (8.4-10.2) mg/dL AST (14-36) U/L Total Protein 3.9 L (6.3-8.2) g/dL Albumin 2.1 L (3.5-5.0) g/dL Crossmatch
[2020-04-19] MEDS: CAFFEINE CITRATE 60 MG/3 ML VIAL PO SCH (14:15)
[2020-04-19 17:18] LABS: Glucose,Whole Blood 253 mg/dL (75-99)
[2020-04-19 21:24] LABS: Glucose,Whole Blood 268 mg/dL (75-99)
[2020-04-19] MEDS ORDERED: INSULIN ASPART (NovoLOG) 100 UNIT/ML VIAL SQ ONE (21:41)
[2020-04-19] MEDS: MONTELUKAST 10 MG TAB PO SCH (22:07)
[2020-04-19] MEDS: INSULIN DETEMIR (LEVEMIR) 100 UNIT/ML SYR SQ SCH (22:16)
[2020-04-20] MEDS: ACETAMINOPHEN TAB 500 MG TAB PO SCH ×4 (00:22→17:21)
[2020-04-20] MEDS: DEXAMETHASONE SOD PHOSPHATE 4 MG/ML 1 ML VIAL IV SCH ×4 (00:23→16:30)
[2020-04-20 06:33] LABS: Anisocytosis Slight; Basophils % (A) 0 %; Eosinophils % (A) 0 %; HCT 24.8 % (34.0-46.0); HGB 8.4 gm/dL (11.4-16.0); Lymphocytes # (A) 0.2 k/uL (1.0-4.8); Lymphocytes % (A) 2 %; MCHC 33.8 g/dL (31.0-37.0); MCV 91.6 fL (80.0-100.0); Mean Platelet Volume 7.5; Monocytes # (A) 0.5 k/uL (0-1.0); Monocytes % (A) 5 %; Neutrophils # (A) 9.3 k/uL (1.3-7.7); Neutrophils % (A) 92 %; RBC 2.71 m/uL (3.80-5.40); RDW 16.7 % (11.5-15.5); WBC 10.1 k/uL (3.8-10.6)
[2020-04-20 06:34] LABS: Platelet Count 88 k/uL (150-450)
[2020-04-20] MEDS: SODIUM CHLORIDE 0.9% 1,000 ML IV SCH ×2 (06:34→12:13)
[2020-04-20] MEDS: LEVOTHYROXINE 25 MCG TAB PO SCH (06:42)
[2020-04-20 06:52] LABS: African American GFR (CKD) >90 (>60 ml/min/1.73 sqM); Anion Gap 1 mmol/L; Blood Urea Nitrogen 10 mg/dL (7-17); Calcium 8.4 mg/dL (8.4-10.2); Carbon Dioxide 19 mmol/L (22-30); Chloride 116 mmol/L (98-107); Glucose 125 mg/dL (74-99); Non-African American GFR(CKD) 88 (>60 ml/min/1.73 sqM); Potassium 3.9 mmol/L (3.5-5.1); Sodium 136 mmol/L (137-145)
[2020-04-20] MEDS ORDERED: VANCOMYCIN TROUGH DUE 1 EACH MISC MISCELLANE ONE (07:00)
[2020-04-20] MEDS ORDERED: POTASSIUM CHLORIDE ER 20 MEQ TAB.ER PO STA (07:16)
[2020-04-20 07:19] LABS: Glucose,Whole Blood 121 mg/dL (75-99)
[2020-04-20] MEDS: INSULIN ASPART (NovoLOG) 100 UNIT/ML VIAL SQ SCH ×7 (07:19→21:40)
[2020-04-20] MEDS: INSULIN DETEMIR (LEVEMIR) 100 UNIT/ML SYR SQ SCH ×2 (07:29→21:40)
--- NOTE | 2020-04-20 07:55 | P.PN ---
Subjective Progress Note Date: 04/20/20 Principal diagnosis: T12-L1 severe stenosis with impending conus syndrome and RLE weakness Pt s/e this AM. Doing well. States she slept all night. Was up in chair and up x1 yesterday for a few steps but not much more. Stated her legs were tired. Denies any ESCOBEDO/vision changes/N/V/SOB/CP at this time. No f/c. Pain is well controlled. Nursing at bedside stated she had a good night. Objective - Vital Signs Vital signs: Vital Signs Temp 98 F 04/20/20 04:00 Pulse 80 04/20/20 07:00 Resp 21 04/20/20 07:00 BP 111/79 04/20/20 07:00 Pulse Ox 98 04/20/20 07:00 Intake & Output 04/19/20 04/20/20 04/20/20 18:59 06:59 18:59 Intake Total 1286 1166 78 Output Total 1075 1100 60 Balance 211 66 18 Weight 80 kg Intake: IV 1286 1166 78 Pressure Bag 36 36 3 Sodium Chloride 0.9% 1, 1000 880 75 000 ml @ 75 mls/hr IV . [id number] [facility] Rx#:[id number] Vancomycin 1,250 mg In 250 250 Sodium Chloride 0.9% 250 ml @ 125 mls/hr IVPB Q16H [facility] Rx#:[id number] Output: Urine 1075 1100 60 Other: Voiding Method Indwelling Catheter Indwelling Catheter ABP, PAP, CO, CI - Last Documented Arterial Blood Pressure 121/68 - Exam Exam is stable. There is no change currently. MOTOR EXAM (0-5/5, N/T) STRENGTH RIGHT LEFT Shoulder Abd (not part of the LEONA score) 5 5 Elbow Flexors 5 5 Elbow Extensor 5 5 Wrist Dorsiflexors 5 5 Finger Abductor 5 5 Home Health Billing Specialist 5 5 Hip Flexor (Not part of LEONA Motor score) 5 4+ Knee Flexor 5 5 Knee Extensor 5 4- Ankle dorsiflexor 5 2 Ankle plantarflexion 5 3 Extensor hallucis 5 2 REFLEXES(0-4/2, NT) RIGHTLEFT Upper Extremities 2 2 Lower Extremities 2 2 Pathological ReflexesRIGHTLEFT Franklin's Absent Absent Clonus Absent Absent CN II-XII grossly intact. Negative babinski b/l Sensation is intact to light touch and pain in the lower extremity is bilaterally in the L2 to S1 nerve distribution. Incision is clean, dry and intact. Drain was removed. No output. Drain site clear, no drainage. Dressed with 4x4 and tegaderm. On palpation, there is no hematoma noted - EENT Eyes: Present: EOMI, PERRLA - Respiratory Respiratory: negative: wheezing - Cardiovascular Rhythm: regular - Neurologic Neurologic: Present: CNII-XII intact - Musculoskeletal Musculoskeletal: Present: generalized weakness - Psychiatric Psychiatric: Present: A&O x's 3, appropriate affect, intact judgment & insight - Allied health notes Allied health notes reviewed: PT - Labs CBC & Chem 7: 04/20/20 06:15 04/20/20 06:15 Labs: Abnormal Lab Results - Last 24 Hours (Table) 04/19/20 04/19/20 04/19/20 Range/Units 08:09 12:10 17:13 RBC (3.80-5.40) m/uL Hgb (11.4-16.0) gm/dL Hct (34.0-46.0) % RDW (11.5-15.5) % Plt Count (150-450) k/uL Neutrophils # (1.3-7.7) k/uL Lymphocytes # (1.0-4.8) k/uL Sodium (137-145) mmol/L Chloride (98-107) mmol/L Carbon Dioxide (22-30) mmol/L Glucose (74-99) mg/dL POC Glucose (mg/dL) 239 H 193 H 253 H (75-99) mg/dL 04/19/20 04/20/20 04/20/20 Range/Units 21:22 06:15 06:15 RBC 2.71 L (3.80-5.40) m/uL Hgb 8.4 L (11.4-16.0) gm/dL Hct 24.8 L (34.0-46.0) % RDW 16.7 H (11.5-15.5) % Plt Count 88 L (150-450) k/uL Neutrophils # 9.3 H (1.3-7.7) k/uL Lymphocytes # 0.2 L (1.0-4.8) k/uL Sodium 136 L (137-145) mmol/L Chloride 116 H (98-107) mmol/L Carbon Dioxide 19 L (22-30) mmol/L Glucose 125 H (74-99) mg/dL POC Glucose (mg/dL) 268 H (75-99) mg/dL 04/20/20 Range/Units 07:18 RBC (3.80-5.40) m/uL Hgb (11.4-16.0) gm/dL Hct (34.0-46.0) % RDW (11.5-15.5) % Plt Count (150-450) k/uL Neutrophils # (1.3-7.7) k/uL Lymphocytes # (1.0-4.8) k/uL Sodium (137-145) mmol/L Chloride (98-107) mmol/L Carbon Dioxide (22-30) mmol/L Glucose (74-99) mg/dL POC Glucose (mg/dL) 121 H (75-99) mg/dL Assessment and Plan Assessment: 80-year-old female postop day 3 from T12 to L2 posterior lateral instrumented fusion with T12 to L2 decompression laminectomy, left pedicle subtraction L1, dural erosion and repair. 1. T12-L1 severe spondylosis. 2. 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 Adjacent segment disease T12-L1 4. R foot drop, improved with improved hip flexion on the right. Postopera tively Plan: 1. Appreciate ICU management. Likely OK to transfer to monitored step down unit today. 2. Patient cleared to sit up in chair and attempt to ambulate with assist 3. Continue Decadron taper 4mg every 8 hours. 4. Pain control, we changed her to Tylenol 1000 mg scheduled, OxyIR, Robaxin, and this seems to be helping her 5. Drain DC today 6. Neuro checks every shift 7. Trend labs transfuse if hemoglobin less than 8 or hematocrit less than 23. Patient received 1 unit PRBCs yesterday and is doing much better from this 8. PT, OT . No braces needed for ambulation but OK for comfort when up and about 9. Patient on Lovenox for DVT and PE treatment 10. Continue vancomycin. Postoperative 11. We will follow closely Time with Patient: Greater than 30
[2020-04-20] MEDS: VANCOMYCIN 1,250 MG in SODIUM CHLORIDE 0.9% 250 ML IVPB SCH ×2 (09:09→21:51)
[2020-04-20] MEDS: FLUoxetine HCL 10 MG CAP PO SCH (09:10)
[2020-04-20] MEDS: allopurinoL 100 MG TAB PO SCH (09:10)
[2020-04-20] MEDS: GABAPENTIN 300 MG CAP PO SCH ×3 (09:11→21:39)
[2020-04-20] MEDS: PANTOPRAZOLE 40 MG/10 ML VIAL IV SCH (09:11)
[2020-04-20] MEDS: APIXABAN 5 MG TAB PO SCH ×2 (09:19→21:39)
[2020-04-20] MEDS: CAFFEINE CITRATE 60 MG/3 ML VIAL PO SCH (10:00)
[2020-04-20 12:02] LABS: Glucose,Whole Blood 128 mg/dL (75-99)
--- NOTE | 2020-04-20 12:04 | P.PN ---
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 Rocha, who we had re cently seen in consultation on 03/09/2020 1 patient was hospitalized with the right lower lobe pulmonary embolism, which was unprovoked, and acute on chronic DVT involving the left lower extremity. Patient at that time was started on Eliquis. Other medical history includes history of non-Hodgkin's lymphoma which has been in remission since 1993, family history of thromboembolic disease and pulmonary embolism with the factor V Leiden mutation, type 2 diabetes, history of GI bleeding, DJD, hypertension, hypothyroidism, history of TIA and chronic low back pain. She was seen in follow-up by Dr. Rosario in the office, and patient was planning on having surgery on her back, and the plan was to continue with the 3 months of anticoagulation prior to surgery. On 04/15/2020 patient presented to the emergency department per EMS with complaints of lower back pain, significant weakness in the right leg, with foot drop, and one episode of urinary incontinence. CT of the thoracic and lumbar spine shows multilevel posterior fusion surgery, spinal stenosis present at T12 to L1 with bony metastases in the spinal canal anteriorly on the left side but no acute fracture. Today she is having increased loss of sensation in the right lower extremity. She was evaluated by Dr. Plummer, who diagnosed the patient with the T12 to L1 severe spondylosis, T12 to L1 disc osteophyte complex with severe canal stenosis and impending conus syndrome, and recommended surgery with L1-2 removal of hardware with T12 to L2 decompression and fusion. Dr. Edward's and discussed the case with Dr. Rosario, and in view of rapid progression disabling nature of patient's symptoms, patient is cleared for surgery from pulmonary perspective and the recommendation to hold Eliquis for 1-2 days prior to surgery. Patient is currently not complaining of any pulmonary complaints, she is on room air with pulse ox of 95-98%, hemodynamically patient is stable. She has received at least 5 weeks of anticoagulation. Today's chest x-ray shows no acute cardiopulmonary process. Her labs have been reviewed, showing white blood cell count of 7.1, hemoglobin of 13.7, sodium 139, potassium 3.7, chloride is 111, CO2 is 21, BUN of 20 creatinine 0.76, LFTs were within normal limits. Vitals signs have been stable. Patient was reevaluated today on 04/18/20, patient is status post surgery for severe T12-L1 severe stenosis with impending conus syndrome and right lower extremity weakness. Patient was brought into the ICU late at night, and she was borderline hypotensive, required fluid boluses in the form of lactated Ringer's, she also required placement on norepinephrine drip to maintain a blood pressure with a mean of above 65. Presently her mean is 75, and she is on levo at 0.1 mcg/kg/m. Patient is doing fairly well, relatively asymptomatic, pain seems to be under control. Receiving morphine for pain control. Urine output is marginal 20-30 mL/h, hence I recommended another bolus of 0.9 normal saline, and I recommended that we start the patient on Lovenox 60 mg subcu every 12 hours mostly because of her recent history of DVT and pulmonary embolism. Patient was also seen by surgery and she informed the surgeon that the pain in her legs is much better. She can lift her right leg up off the bed, but she continues to have issues with dorsiflexion and plantar flexion. The surgeon felt that her left lower extremity is completely functional and her groin numbness and tingling seems to be improving. Labs today showed WBC count of 11.8 hemoglobin of 8.7. Electrolytes are normal except for slightly low potassium of 3.3 being corrected as per protocol. Patient was reevaluated today on 04/19/20, remains in the ICU, doing much better today compared to yesterday in p.m. Patient developed an episode of hypotension and tachycardia , patient responded to fluid boluses, and she received a unit of packed RBCs for a hemoglobin of 8. CT of the brain and CT of the spine came back basically unremarkable. Patient is hemodynamically stable today, she is in normal sinus rhythm, hemodynamically stable, not requiring any norepinephrine. Denies any headache, no nausea, no vomiting, denies any fever or chills, denies any shortness of breath. Minimal burning sensation in legs, improved compared to yesterday p.m. No new neurological changes in her lower extremities. Labs today showed normal WBC count, hemoglobin is 9.1, elective lites are normal. Renal profile is normal. Patient is back on Lovenox grams subcu every 12 hours mostly because the patient is high risk for deep vein thromboses and thrombus embolic disease Patient was reevaluated today on 04/20/20, remains in the intensive care unit, patient had basically a very uneventful night. She is off pressors. She is on Lovenox, hemoglobin is 8.4 today, platelets are low at 88,000, hence we'll discuss with orthopedics possibly switch Lovenox to Eliquis at 5 mg twice a day. Patient is doing very well with incentive spirometry, she is on room air, denies any pulmonary symptoms whatsoever. Her IV fluid is at 75 mL/h, 0.9 normal saline. Patient feels that her legs are a bit stronger. Continues to have significant right foot drop. Pain is fairly well-controlled. Objective - Vital Signs Vital signs: Vital Signs Temp 98.0 F 04/20/20 08:00 Pulse 74 04/20/20 11:00 Resp 17 04/20/20 11:00 BP 140/76 04/20/20 11:00 Pulse Ox 97 04/20/20 11:00 Intake & Output 04/19/20 04/20/20 04/20/20 18:59 06:59 18:59 Intake Total 1286 1166 306 Output Total 1075 1100 230 Balance 211 66 76 Weight 80 kg Intake: IV 1286 1166 306 Pressure Bag 36 36 6 Sodium Chloride 0.9% 1, 100 000 ml @ 50 mls/hr IV . Q20H [facility] Rx#:[id number] Sodium Chloride 0.9% 1, 1000 880 200 000 ml @ 75 mls/hr IV . [id number] [facility] Rx#:[id number] Vancomycin 1,250 mg In 250 250 Sodium Chloride 0.9% 250 ml @ 125 mls/hr IVPB Q16H [facility] Rx#:[id number] Output: Urine 1075 1100 230 Other: Voiding Method Indwelling Catheter Indwelling Catheter Indwelling Catheter ABP, PAP, CO, CI - Last Documented Arterial Blood Pressure 121/68 - Exam GENERAL EXAM: Revealed 80-year-old female pleasant, in no distress, on room air. HEAD: Normocephalic/atraumatic. EENT: PERRLA, EOMI, neck this, no neck masses, no JVD, no stridor. Right IJ central line is noted. CHEST: No chest wall deformity. Symmetrical expansion. LUNGS: Symmetrical expansion, good vessel bilaterally rhonchi no wheezes. CVS: Regular rate and rhythm, normal S1 and S2, no gallops, no murmurs, no rubs ABDOMEN: Soft, nontender. No hepatosplenomegaly, normal bowel sounds, no guarding or rigidity. EXTREMITIES: No clubbing, no edema, no cyanosis, 2+ pulses and upper and lower extremities. SKIN: No rashes CENTRAL NERVOUS SYSTEM: Alert and oriented 3, no gross focal deficits.. Weakness in lower extremities is about the same compared to yesterday, right foot drop is noted PSYCHIATRIC: Normal mood, affect and normal mental status examination. - Labs CBC & Chem 7: 04/20/20 06:15 04/20/20 06:15 Labs: Abnormal Lab Results - Last 24 Hours (Table) 04/19/20 04/19/20 04/19/20 Range/Units 12:10 17:13 21:22 RBC (3.80-5.40) m/uL Hgb (11.4-16.0) gm/dL Hct (34.0-46.0) % RDW (11.5-15.5) % Plt Count (150-450) k/uL Neutrophils # (1.3-7.7) k/uL Lymphocytes # (1.0-4.8) k/uL Sodium (137-145) mmol/L Chloride (98-107) mmol/L Carbon Dioxide (22-30) mmol/L Glucose (74-99) mg/dL POC Glucose (mg/dL) 193 H 253 H 268 H (75-99) mg/dL 04/20/20 04/20/20 04/20/20 Range/Units 06:15 06:15 07:18 RBC 2.71 L (3.80-5.40) m/uL Hgb 8.4 L (11.4-16.0) gm/dL Hct 24.8 L (34.0-46.0) % RDW 16.7 H (11.5-15.5) % Plt Count 88 L (150-450) k/uL Neutrophils # 9.3 H (1.3-7.7) k/uL Lymphocytes # 0.2 L (1.0-4.8) k/uL Sodium 136 L (137-145) mmol/L Chloride 116 H (98-107) mmol/L Carbon Dioxide 19 L (22-30) mmol/L Glucose 125 H (74-99) mg/dL POC Glucose (mg/dL) 121 H (75-99) mg/dL Assessment and Plan Assessment: Impression: Postoperative Hypovolemic hypotension, responded to fluid boluses and to 1 unit of packed RBCs given yesterday. Strongly doubt sepsis. T12-L1 severe spondylosis T12-L1 disc osteophyte complex with severe canal stenosis and impending conus syndrome Right foot drop. Status post: 1. T12-L2 decompressive laminectomy T12-L21 2. L L1 pedical subtraction 3. T12-L1 Interbody fusion 4. T12-L2 posteriolateral instrumented fusion 5. Mass decompression with conus decompression 6. Repair of dural erosion History of multiple comorbidities including recent unprovoked pulmonary embolism with left lower extremity DVT, patient received a total of 5 weeks of anticoagulation therapy on outpatient basis. Hence patient will have to be started on Lovenox, and I will recommend 60 mg subcu every 12 hours, with clear the Lovenox with orthopedic surgery. Patient is definitely high risk for deep vein thromboses and pulmonary embolism, she has known family history of factor V Leyden mutation. History of CVA/TIA. History of non-Hodgkin's lymphoma History of hypothyroidism History of type 2 diabetes. Recommendation: Patient is doing great today, and no issues over the last 24 hours. She is hemodynamically stable, she has no active pulmonary symptoms, no major neurological issues over the last 24 hours. Patient was seen by orthopedics, and she was cleared to sit up in the chair, and to ambulate with assistance. She is doing extremely well with incentive spirometry. She did develop low platelets, and I plan to switch Lovenox to Eliquis 5 mg twice a day which is her usual dose for recent DVT and pulmonary embolism. This will be cleared by orthopedic surgery, otherwise continue Lovenox. Consider transferring the patient today from the ICU to a monitor bed on selective or a monitored bed on a medical surgical floor. Physical therapy to continue. Continue antibiotics empirically. Continue incentive spirometer. Will follow. Time with Patient: Less than 30
[2020-04-20] MEDS: IPRATROPIUM BROMIDE 0.06% NASAL SPRAY (15 ML) EA NOSTRIL SCH ×2 (12:19→21:50)
--- NOTE | 2020-04-20 14:43 | P.PN ---
Subjective Progress Note Date: 04/20/20 HISTORY OF PRESENT ILLNESS This is a 80-year-old female one of Dr. Rocha patient with past medical history of type 2 diabetes, non-Hodgkin's lymphoma [place] [address] Monaco and follows with Dr. Aranda status post chemotherapy and radiation therapy, TIA 5 years ago, hypertension, hyperlipidemia, hypertension, hypothyroidism, restless leg syndrome, recurrent depression, and osteoarthritis who has been treated for lower back pain post multiple lower back surgery and epidural injection with pain management at [facility], previous admission for acute GI bleed and acute blood loss anemia status post EGD and colonoscopy which revealed antral gastritis, area of ulceration, nonbleeding, in the distal transverse colon, pulmonary embolism and left lower leg DVT diagnosed 03/08/2020 on eliquis Patient states that she has been having ongoing problems with back pain with right foot drop and lack of bladder control. She also has some right- sided weakness. She has had 2 falls including one in which she fractured her right kneecap. She has been following with Dr. Plummer and was scheduled for back surgery next week. Patient has had increasing difficulty with her leg giving out and worsening bladder and bowel control and patient is scheduled for surgery this week. She normally uses a walker for ambulation. She states the pain has been bad for several years and radiation to her chest impacted the thoracic spine when she was undergoing treatment for lymphoma. Her last dose of eliquis was on April 15. 04/17: Patient is scheduled for myelogram prior to surgical today. She has been seen by pulmonary medicine. She denies any new complaints. No shortness of breath. Patient has been afebrile, heart rate 90, blood pressure 120/79, pulse ox 96% on room air. Blood sugars are running between 123-184. 04/18: Patient is seen today in the intensive care unit. She underwent T12 through L2 decompression laminectomy, CAT scan of the lumbar spine which revealed large calcified posterior disc herniation at T12-L1. Small extradural air bubbles in the spinal canal consistent with recent surgery. CAT scan of the thoracic spine revealed fusion surgery at T12 level. Posterior pleural thickening and subsegmental atelectasis in the paraspinal mid and lower thorax appears new. Following procedure, patient became hypotensive and required transfer into the intensive care unit status post fluid boluses and norepinephrine drip. She is still on norepinephrine this morning. Lactated ringer changed to 0.9 normal saline as patient has had a high blood sugars. Patient is on Decadron 6 mg IV every 6 hours. Patient has been started on Lovenox 60 mg subcu every 12 hours due to recent diagnosis of DVT and PE. Patient has been afebrile, heart rate 105, blood pressure 95/55. Pulse ox 97% on 2 L nasal cannula. Hemoglobin is 8.7, WBC 11.8, platelet count 107. Sodium 134, potassium 3.3, chloride 111, CO2 23, creatinine 0.65. Blood sugars are running between 157 and 218. 04/19: Patient remains in the intensive care unit. She is off vasopressors and is status post fluid boluses and 1 unit packed RBCs. She states she is feeling better today. She is having some pain in her right leg with residual right leg weakness but feels like her right leg is stronger. Back pain is improved. Patient has been afebrile, heart rate 93, blood pressure 116/59, pulse ox 93% on 2 L nasal cannula. Repeat blood work reveals WBC 10.7, hemoglobin 9.1, platelet count 75. CO2 20, creatinine 0.53. Blood sugars running between 130 and 239. Last evening, patient had a CAT scan of the brain, CAT scan of the thoracic and cervical spine. All essentially normal with no acute findings. Discharge plan will be to [facility]. 04/20 patient remains in the ICU. She appears comfortable is moving her right lower extremity well. Patient's vitals this morning suggests a temp of 98 pulse 85 respiratory rate 21 and blood pressure 129/71 and saturating at 96% on room air hemoglobin is stable at 8.4 with a goal of keeping the hemoglobin above 8 platelets 88 blood sugar this morning 121 . Patient was added on Lantus 5 units twice a day based on the high blood sugars are running in the 250-260 range. Decadron reduced to 4 mg every 8 h. to monitor for hypoglycemia. Patient pain is under control. Continues to use incentive spirometry. Goal hemoglobin more than 8. Patient continues to be on Lovenox, will discuss with orthopedics to switch to elliquis REVIEW OF SYSTEMS Constitutional: No fever, no chills, no night sweats. No weight change. Reports weakness, reports fatigue denies lethargy. No daytime sleepiness. EENT: No headache. No blurred vision or double vision, no loss of vision. No loss of Hearing, no ringing in the ears, Reports dizziness. No nasal drainage or congestion. No epistaxis. No sore throat. Lungs: Denies shortness of breath, cough, no sputum production. No wheezing. Cardiovascular: No chest pain, no left lower extremity edema. No palpitations. No paroxysmal nocturnal dyspnea. No orthopnea. No lightheadedness or di zziness. No syncopal episodes. Abdominal: No abdominal pain. No nausea, vomiting. No diarrhea. No constipation. No bloody or tarry stools. No loss of appetite. Genitourinary: No dysuria, increased frequency, urgency. No urinary retention. Reports incontinence, loss of bladder control Musculoskeletal: No myalgias. Reports muscle weakness similar to yesterday, reports gait dysfunction, Reports back pain-improving. No neck pain. Integumentary: No wounds, no lesions. No rash or pruritus. No unusual bruising. No change in hair or nails. Neurologic: No aphasia. No facial droop. No change in mentation. No head injury. No headache. No paralysis. No paresthesia. Psychiatric: No depression. No anxiety. Endocrine: Reports abnormal blood sugars. PHYSICAL EXAMINATION Gen: This is A 80-year-old female. Patient is resting ICU bed appears to be comfortable and in no acute distress. No respiratory distress is noted. HEENT: Head is atraumatic, normocephalic. Pupils equal, round. Sclerae is anicteric. NECK: Supple. No JVD. No lymphadenopathy. No thyromegaly. LUNGS: Clear to auscultation. No wheezes or rhonchi. No intercostal retractions. HEART: Regular rate and rhythm. No murmur. ABDOMEN: Soft. Bowel sounds are present. No masses. No tenderness. EXTREMITIES: No pedal edema. No calf tenderness. Dorsalis pedis palpable bilaterally. NEUROLOGICAL: Patient is awake, alert and oriented x3. Cranial nerves 2 through 12 are grossly intact. ASSESSMENT AND PLAN 1. T12-L1 severe spondylosis, severe canal stenosis and impending conus syndrome status post T12 through L2 decompression laminectomy. Incentive spir ometry to reduce incidence of atelectasis and hospital-acquired pneumonia. Decadron reduced to 4 mg every 8 from 6 mg IV every 6 hours. Continue current pain management. 2. Postop hypotension. Resolved Patient is on vasopressor, IV fluids discontinued Caffeine added. 3. Right lower lobe pulmonary embolism. Eliquis on hold On Lovenox with plan to switch to eliquis once cleared by ortho 4. Diabetes mellitus type 2, uncontrolled with hyperglycemia secondary to steroids. Hemoglobin A1c in November was 6.8. NovoLog scale before meals at bedtime. Lantus 5 twice a day and lispro 3 units 3 times a day 5. Non-Hodgkin's lymphoma [place] [address] Monaco and follows with Dr. Aranda, in remission. 6. History of TIA with no deficits. 7. History of GI bleed secondary to colon ulcer in November 2019 without recurrence. Continue Protonix. 8. Hypertension. Hold amlodipine 5 mg daily, and atenolol 50 mg twice daily for hypotension. Will restart tomorrow and based on blood pressure 9. Hypothyroidism. Continue levothyroxine 12.5 g daily. 10. Seasonal ALLERGIES. Continue Singulair 10 mg at bedtime. 11. Recurrent depression. Continue Prozac 30 mg daily. 12. Chronic gout. Continue allopurinol 100 mg daily. 13. Hyperlipidemia. Patient is not currently on statin. 14. Restless leg syndrome. Continue Requip. 15. GERD and GI prophylaxis. Protonix 16 thrombocytopenia likely secondary to acute illness and bone marrow suppression. Continue to monitor. 17 acute blood loss anemia expected outcome of the surgery. Transfusion of one PRBC on 04/19 hemoglobin stable Discharge plan: [facility] for subacute rehab. Objective - Vital Signs Vital signs: Vital Signs Temp 97.5 F L 04/20/20 12:00 Pulse 70 04/20/20 12:00 Resp 18 04/20/20 12:00 BP 146/77 04/20/20 12:00 Pulse Ox 94 L 04/20/20 12:00 Intake & Output 04/19/20 04/20/20 04/20/20 18:59 06:59 18:59 Intake Total 1286 1166 356 Output Total 1075 1100 430 Balance 211 66 -74 Weight 80 kg Intake: IV 1286 1166 356 Pressure Bag 36 36 6 Sodium Chloride 0.9% 1, 150 000 ml @ 50 mls/hr IV . Q20H [facility] Rx#:[id number] Sodium Chloride 0.9% 1, 1000 880 200 000 ml @ 75 mls/hr IV . [id number] [facility] Rx#:[id number] Vancomycin 1,250 mg In 250 250 Sodium Chloride 0.9% 250 ml @ 125 mls/hr IVPB Q16H [facility] Rx#:[id number] Output: Urine 1075 1100 430 Other: Voiding Method Indwelling Catheter Indwelling Catheter Indwelling Catheter ABP, PAP, CO, CI - Last Documented Arterial Blood Pressure 121/68 - Labs CBC & Chem 7: 04/20/20 06:15 04/20/20 06:15 Labs: Abnormal Lab Results - Last 24 Hours (Table) 04/19/20 04/19/20 04/20/20 Range/Units 17:13 21:22 06:15 RBC (3.80-5.40) m/uL Hgb (11.4-16.0) gm/dL Hct (34.0-46.0) % RDW (11.5-15.5) % Plt Count (150-450) k/uL Neutrophils # (1.3-7.7) k/uL Lymphocytes # (1.0-4.8) k/uL Sodium 136 L (137-145) mmol/L Chloride 116 H (98-107) mmol/L Carbon Dioxide 19 L (22-30) mmol/L Glucose 125 H (74-99) mg/dL POC Glucose (mg/dL) 253 H 268 H (75-99) mg/dL 04/20/20 04/20/20 04/20/20 Range/Units 06:15 07:18 11:42 RBC 2.71 L (3.80-5.40) m/uL Hgb 8.4 L (11.4-16.0) gm/dL Hct 24.8 L (34.0-46.0) % RDW 16.7 H (11.5-15.5) % Plt Count 88 L (150-450) k/uL Neutrophils # 9.3 H (1.3-7.7) k/uL Lymphocytes # 0.2 L (1.0-4.8) k/uL Sodium (137-145) mmol/L Chloride (98-107) mmol/L Carbon Dioxide (22-30) mmol/L Glucose (74-99) mg/dL POC Glucose (mg/dL) 121 H 128 H (75-99) mg/dL
[2020-04-20] MEDS: SENNOSIDES 8.6 MG TAB PO PRN (16:31)
[2020-04-20 17:16] LABS: Glucose,Whole Blood 130 mg/dL (75-99)
[2020-04-20 20:22] LABS: Glucose,Whole Blood 221 mg/dL (75-99)
[2020-04-20] MEDS: MONTELUKAST 10 MG TAB PO SCH (21:39)
[2020-04-20] MEDS: atenoloL 50 MG TAB PO SCH (21:39)
[2020-04-21] MEDS: ACETAMINOPHEN TAB 500 MG TAB PO SCH ×4 (00:13→17:47)
[2020-04-21] MEDS: DEXAMETHASONE SOD PHOSPHATE 4 MG/ML 1 ML VIAL IV SCH ×4 (00:13→21:26)
[2020-04-21] MEDS: LEVOTHYROXINE 25 MCG TAB PO SCH (05:41)
[2020-04-21 07:01] LABS: Glucose,Whole Blood 143 mg/dL (75-99)
[2020-04-21 08:03] LABS: Anisocytosis Slight; HCT 24.3 % (34.0-46.0); HGB 7.8 gm/dL (11.4-16.0); MCH 29.8 pg (25.0-35.0); MCHC 32.3 g/dL (31.0-37.0); MCV 92.1 fL (80.0-100.0); Mean Platelet Volume 7.8; RBC 2.63 m/uL (3.80-5.40); RDW 16.5 % (11.5-15.5); WBC 7.3 k/uL (3.8-10.6)
[2020-04-21 08:08] LABS: Platelet Count 95 k/uL (150-450)
[2020-04-21] MEDS: PANTOPRAZOLE 40 MG/10 ML VIAL IV SCH (08:35)
[2020-04-21] MEDS: GABAPENTIN 300 MG CAP PO SCH ×3 (08:35→21:26)
[2020-04-21] MEDS: INSULIN ASPART (NovoLOG) 100 UNIT/ML VIAL SQ SCH ×5 (08:35→21:26)
[2020-04-21] MEDS: allopurinoL 100 MG TAB PO SCH (08:35)
[2020-04-21] MEDS: APIXABAN 5 MG TAB PO SCH ×2 (08:35→21:26)
[2020-04-21] MEDS: INSULIN DETEMIR (LEVEMIR) 100 UNIT/ML SYR SQ SCH ×2 (08:35→21:26)
[2020-04-21] MEDS: atenoloL 50 MG TAB PO SCH ×2 (08:35→21:25)
[2020-04-21] MEDS: SENNOSIDES 8.6 MG TAB PO PRN (08:48)
--- NOTE | 2020-04-21 08:57 | P.PN ---
Subjective Progress Note Date: 04/21/20 Principal diagnosis: T12-L1 severe stenosis with impending conus syndrome and RLE weakness Pt s/e today. She was transferred from ICU to step down and is doing very well with this. She denies any pain in her legs or in her back at this time. States no new numbness/tingling. Denies f/c/sob/cp/davison/n/v/blurred vision today. She was up yesterday x1 and stated she took a few steps with a walker. Objective - Vital Signs Vital signs: Vital Signs Temp 98.0 F 04/21/20 07:08 Pulse 75 04/21/20 07:08 Resp 16 04/21/20 07:08 BP 100/63 04/21/20 07:08 Pulse Ox 95 04/21/20 07:08 Intake & Output 04/20/20 04/21/20 04/21/20 18:59 06:59 18:59 Intake Total 406 Output Total 830 1400 Balance -424 -1400 Weight 77 kg Intake: IV 406 Pressure Bag 6 Sodium Chloride 0.9% 1, 200 000 ml @ 50 mls/hr IV . Q20H [facility]ANTOS Rx#:[id number] Sodium Chloride 0.9% 1, 200 000 ml @ 75 mls/hr IV . [id number] [facility]OS Rx#:[id number] Output: Urine 830 1400 Other: Voiding Method Indwelling Catheter Indwelling Catheter ABP, PAP, CO, CI - Last Documented Arterial Blood Pressure 121/68 - Exam Exam is stable. There is no change currently. She continues to get stronger in her RLE. She still has persistent TA weakness but her EHL is starting to come back so there is hope for recovery. MOTOR EXAM (0-5/5, N/T) STRENGTH RIGHT LEFT Shoulder Abd (not part of the LEONA score) 5 5 Elbow Flexors 5 5 Elbow Extensor 5 5 Wrist Dorsiflexors 5 5 Finger Abductor 5 5 Emergency Manager 5 5 Hip Flexor (Not part of LEONA Motor score) 5 4+ Knee Flexor 5 5 Knee Extensor 5 4- Ankle dorsiflexor 5 2 Ankle plantarflexion 5 3 Extensor hallucis 5 2-3 REFLEXES(0-4/2, NT) RIGHTLEFT Upper Extremities 2 2 Lower Extremities 2 2 Pathological ReflexesRIGHTLEFT Franklin's Absent Absent Clonus Absent Absent CN II-XII grossly intact. Negative babinski b/l Sensation is intact to light touch and pain in the lower extremity is bilaterally in the L2 to S1 nerve distribution. Incision is clean, dry and intact. Drain was removed. No output. Drain site clear, no drainage. Dressed with 4x4 and tegaderm. On palpation, there is no hematoma noted - EENT Eyes: Present: EOMI, PERRLA - Neurologic Neurologic: Present: CNII-XII intact - Psychiatric Psychiatric: Present: A&O x's 3, appropriate affect, intact judgment & insight - Labs CBC & Chem 7: 04/21/20 06:54 04/21/20 06:54 Labs: Abnormal Lab Results - Last 24 Hours (Table) 04/20/20 04/20/20 04/20/20 Range/Units 11:42 17:14 20:21 RBC (3.80-5.40) m/uL Hgb (11.4-16.0) gm/dL Hct (34.0-46.0) % RDW (11.5-15.5) % Plt Count (150-450) k/uL POC Glucose (mg/dL) 128 H 130 H 221 H (75-99) mg/dL 04/21/20 04/21/20 Range/Units 06:50 06:54 RBC 2.63 L (3.80-5.40) m/uL Hgb 7.8 L (11.4-16.0) gm/dL Hct 24.3 L (34.0-46.0) % RDW 16.5 H (11.5-15.5) % Plt Count 95 L (150-450) k/uL POC Glucose (mg/dL) 143 H (75-99) mg/dL Assessment and Plan Assessment: 80-year-old female postop day 4 from T12 to L2 posterior lateral instrumented fusion with T12 to L2 decompression laminectomy, left pedicle subtraction L1, dural erosion and repair. 1. T12-L1 severe spondylosis. 2. 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 Adjacent segment disease T12-L1 4. R foot drop, improved with improved hip flexion on the right. Postoperatively Plan: 1. Appreciate medical management. 2. Aggressive ambulation protocol. OOB for all meals. Up to chair x3 daily. 3. Continue Decadron taper 2mg every 6 hours. 4. Pain control, we changed her to Tylenol 1000 mg scheduled, OxyIR, Robaxin, and this seems to be helping her 5. Neuro checks every shift 6. Trend labs transfuse if hemoglobin less than 8 or hematocrit less than 23. Patient received 1 unit PRBCs yesterday and is doing much better from this 7. PT, OT . No braces needed for ambulation but OK for comfort when up and about 8. Patient switched back to her Eliquis for DVT/PE. 9. Continue vancomycin. Postoperative until DC. 10. Likely [facility]O Wednesday vs .
[2020-04-21 10:13] LABS: Band Neutrophils % 3 %; Lymphocytes # (M) 0.22 k/uL (1.0-4.8); Metamyelocytes # (M) 0.15 k/uL (0); Metamyelocytes % 2 %; Monocytes # (M) 0.58 k/uL (0-1.0); Myelocytes # (M) 0.22 k/uL (0); Myelocytes % 3 %; Neutrophils % (M) 83 %; Nucleated Red Blood Cells 0 /100 WBC (0-0); Total Cells Counted 200
[2020-04-21] MEDS: VANCOMYCIN 1,250 MG in SODIUM CHLORIDE 0.9% 250 ML IVPB SCH ×2 (10:18→21:27)
[2020-04-21] MEDS: polyethylene glycoL 3350 17 GM POWD.PACK PO SCH (10:22)
[2020-04-21] MEDS: FLUoxetine HCL 10 MG CAP PO SCH (11:03)
[2020-04-21] MEDS: IPRATROPIUM BROMIDE 0.06% NASAL SPRAY (15 ML) EA NOSTRIL SCH ×2 (11:04→21:28)
[2020-04-21] MEDS: CAFFEINE CITRATE 60 MG/3 ML VIAL PO SCH (11:04)
[2020-04-21 11:52] LABS: Glucose,Whole Blood 180 mg/dL (75-99)
--- NOTE | 2020-04-21 12:58 | P.PN ---
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 Rocha, who we had r jennifer seen in consultation on 03/09/2020 1 patient was hospitalized with the right lower lobe pulmonary embolism, which was unprovoked, and acute on chronic DVT involving the left lower extremity. Patient at that time was started on Eliquis. Other medical history includes history of non-Hodgkin's lymphoma which has been in remission since 1993, family history of thromboembolic disease and pulmonary embolism with the factor V Leiden mutation, type 2 diabetes, history of GI bleeding, DJD, hypertension, hypothyroidism, history of TIA and chronic low back pain. She was seen in follow-up by Dr. Rosario in the office, and patient was planning on having surgery on her back, and the plan was to continue with the 3 months of anticoagulation prior to surgery. On 04/15/2020 patient presented to the emergency department per EMS with complaints of lower back pain, significant weakness in the right leg, with foot drop, and one episode of urinary incontinence. CT of the thoracic and lumbar spine shows multilevel posterior fusion surgery, spinal stenosis present at T12 to L1 with bony metastases in the spinal canal anteriorly on the left side but no acute fracture. Today she is having increased loss of sensation in the right lower extremity. She was evaluated by Dr. Plummer, who diagnosed the patient with the T12 to L1 severe spondylosis, T12 to L1 disc osteophyte complex with severe canal stenosis and impending conus syndrome, and recommended surgery with L1-2 removal of hardware with T12 to L2 decompression and fusion. Dr. Edward's and discussed the case with Dr. Rosario, and in view of rapid progression disabling nature of patient's symptoms, patient is cleared for surgery from pulmonary perspective and the recommendation to hold Eliquis for 1-2 days prior to surgery. Patient is currently not complaining of any pulmonary complaints, she is on room air with pulse ox of 95-98%, hemodynamically patient is stable. She has received at least 5 weeks of anticoagulation. Today's chest x-ray shows no acute cardiopulmonary process. Her labs have been reviewed, showing white blood cell count of 7.1, hemoglobin of 13.7, sodium 139, potassium 3.7, chloride is 111, CO2 is 21, BUN of 20 creatinine 0.76, LFTs were within normal limits. Vitals signs have been stable. Patient was reevaluated today on 04/18/20, patient is status post surgery for severe T12-L1 severe stenosis with impending conus syndrome and right lower extremity weakness. Patient was brought into the ICU late at night, and she was borderline hypotensive, required fluid boluses in the form of lactated Ringer's, she also required placement on norepinephrine drip to maintain a blood pressure with a mean of above 65. Presently her mean is 75, and she is on levo at 0.1 mcg/kg/m. Patient is doing fairly well, relatively asymptomatic, pain seems to be under control. Receiving morphine for pain control. Urine output is marginal 20-30 mL/h, hence I recommended another bolus of 0.9 normal saline, and I recommended that we start the patient on Lovenox 60 mg subcu every 12 hours mostly because of her recent history of DVT and pulmonary embolism. Patient was also seen by surgery and she informed the surgeon that the pain in her legs is much better. She can lift her right leg up off the bed, but she continues to have issues with dorsiflexion and plantar flexion. The surgeon felt that her left lower extremity is completely functional and her groin numbness and tingling seems to be improving. Labs today showed WBC count of 11.8 hemoglobin of 8.7. Electrolytes are normal except for slightly low potassium of 3.3 being corrected as per protocol. Patient was reevaluated today on 04/19/20, remains in the ICU, doing much better today compared to yesterday in p.m. Patient developed an episode of hypotension and tachycardia , patient responded to fluid boluses, and she received a unit of packed RBCs for a hemoglobin of 8. CT of the brain and CT of the spine came back basically unremarkable. Patient is hemodynamically stable today, she is in normal sinus rhythm, hemodynamically stable, not requiring any norepinephrine. Denies any headache, no nausea, no vomiting, denies any fever or chills, denies any shortness of breath. Minimal burning sensation in legs, improved compared to yesterday p.m. No new neurological changes in her lower extremities. Labs today showed normal WBC count, hemoglobin is 9.1, elective lites are normal. Renal profile is normal. Patient is back on Lovenox grams subcu every 12 hours mostly because the patient is high risk for deep vein thromboses and thrombus embolic disease Patient was reevaluated today on 04/20/20, remains in the intensive care unit, patient had basically a very uneventful night. She is off pressors. She is on Lovenox, hemoglobin is 8.4 today, platelets are low at 88,000, hence we'll discuss with orthopedics possibly switch Lovenox to Eliquis at 5 mg twice a day. Patient is doing very well with incentive spirometry, she is on room air, denies any pulmonary symptoms whatsoever. Her IV fluid is at 75 mL/h, 0.9 normal saline. Patient feels that her legs are a bit stronger. Continues to have significant right foot drop. Pain is fairly well-controlled. Patient is seen today 04/21/2020 in follow-up on the regular medical floor. She is currently sitting up in a chair at the bedside. Awake and alert in no acute distress. Maintaining O2 saturations in the mid 90s on room air. She's afebrile. Right lower extremity with increased mobility and strength. Hemoglobin remains low at 7.8. She received 1 unit of packed red blood cells. Continue vancomycin. Anticoagulated with Eliquis Objective - Vital Signs Vital signs: Vital Signs Temp 98.0 F 04/21/20 07:08 Pulse 75 04/21/20 07:08 Resp 16 04/21/20 07:08 BP 100/63 04/21/20 07:08 Pulse Ox 95 04/21/20 07:08 Intake & Output 04/20/20 04/21/20 04/21/20 18:59 06:59 18:59 Intake Total 406 Output Total 830 1400 Balance -424 -1400 Weight 77 kg Intake: IV 406 Pressure Bag 6 Sodium Chloride 0.9% 1, 200 000 ml @ 50 mls/hr IV . Q20H [facility] Rx#:[id number] Sodium Chloride 0.9% 1, 200 000 ml @ 75 mls/hr IV . [id number] [facility] Rx#:[id number] Output: Urine 830 1400 Other: Voiding Method Indwelling Catheter Indwelling Catheter Indwelling Catheter ABP, PAP, CO, CI - Last Documented Arterial Blood Pressure 121/68 - Exam GENERAL EXAM: Revealed a very pleasant 80-year-old female patient, in no distress, up in a chair at the bedside, on room air. HEAD: Normocephalic/atraumatic. EENT: PERRLA, EOMI, neck this, no neck masses, no JVD, no stridor. Right IJ central line is noted. CHEST: No chest wall deformity. Symmetrical expansion. LUNGS: Symmetrical expansion, good breath sounds bilaterally rhonchi no wheezes. CVS: Regular rate and rhythm, normal S1 and S2, no gallops, no murmurs, no rubs ABDOMEN: Soft, nontender. No hepatosplenomegaly, normal bowel sounds, no guarding or rigidity. EXTREMITIES: No clubbing, no edema, no cyanosis, 2+ pulses and upper and lower extremities. SKIN: No rashes CENTRAL NERVOUS SYSTEM: Alert and oriented 3, no gross focal deficits.. Weakness in lower extremities is improved especially in the right lower extremity PSYCHIATRIC: Normal mood, affect and normal mental status examination. - Labs CBC & Chem 7: 04/21/20 06:54 04/21/20 06:54 Labs: Abnormal Lab Results - Last 24 Hours (Table) 04/20/20 04/20/20 04/21/20 Range/Units 17:14 20:21 06:50 RBC (3.80-5.40) m/uL Hgb (11.4-16.0) gm/dL Hct (34.0-46.0) % RDW (11.5-15.5) % Plt Count (150-450) k/uL Lymphocytes # (Manual) (1.0-4.8) k/uL Metamyelocytes # (Man) (0) k/uL Myelocytes # (Manual) (0) k/uL POC Glucose (mg/dL) 130 H 221 H 143 H (75-99) mg/dL 04/21/20 04/21/20 Range/Units 06:54 11:50 RBC 2.63 L (3.80-5.40) m/uL Hgb 7.8 L (11.4-16.0) gm/dL Hct 24.3 L (34.0-46.0) % RDW 16.5 H (11.5-15.5) % Plt Count 95 L (150-450) k/uL Lymphocytes # (Manual) 0.22 L (1.0-4.8) k/uL Metamyelocytes # (Man) 0.15 H (0) k/uL Myelocytes # (Manual) 0.22 H (0) k/uL POC Glucose (mg/dL) 180 H (75-99) mg/dL Assessment and Plan Assessment: Postoperative Hypovolemic hypotension, responded to fluid boluses and to 1 unit of packed RBCs given yesterday. Hemoglobin 7.8 T12-L1 severe spondylosis T12-L1 disc osteophyte complex with severe canal stenosis and impending conus syndrome Right foot drop. Status post: 1. T12-L2 decompressive laminectomy T12-L21 2. L L1 pedical subtraction 3. T12-L1 Interbody fusion 4. T12-L2 posteriolateral instrumented fusion 5. Mass decompression with conus decompression 6. Repair of dural erosion History of multiple comorbidities including recent unprovoked pulmonary embolism with left lower extremity DVT, patient received a total of 5 weeks of anticoagulation therapy on outpatient basis. Hence patient will have to be started on Lovenox, and I will recommend 60 mg subcu every 12 hours, with clear the Lovenox with orthopedic surgery. Patient is definitely high risk for deep vein thromboses and pulmonary embolism, she has known family history of factor V Leyden mutation. History of CVA/TIA. History of non-Hodgkin's lymphoma History of hypothyroidism History of type 2 diabetes. Plan: The patient was seen and evaluated by Dr. Eric She is stable from the pulmonary and critical care standpoint Continue to work with the incentive spirometer Continue anticoagulation Increase her activity as tolerated We'll continue to follow I, the cosigning physician, performed a history & physical examination of the patient. Lungs sounds are clear. Maintaining good O2 saturations in the 90s on room air. I discussed the assessment and plan of care with my nurse practitioner, Aurelia Aguero. I attest to the above note as dictated by her.
--- NOTE | 2020-04-21 15:33 | P.PN ---
Subjective Progress Note Date: 04/21/20 HISTORY OF PRESENT ILLNESS This is a 80-year-old female one of Dr. Rocha patient with past medical history of type 2 diabetes, non-Hodgkin's lymphoma [place] [address] Monaco and follows with Dr. Aranda status post chemotherapy and radiation therapy, TIA 5 years ago, hypertension, hyperlipidemia, hypertension, hypothyroidism, restless leg syndrome, recurrent depression, and osteoarthritis who has been treated for lower back pain post multiple lower back surgery and epidural injection with pain management at [facility], previous admission for acute GI bleed and acute blood loss anemia status post EGD and colonoscopy which revealed antral gastritis, area of ulceration, nonbleeding, in the distal transverse colon, pulmonary embolism and left lower leg DVT diagnosed 03/08/2020 on eliquis Patient states that she has been having ongoing problems with back pain with right foot drop and lack of bladder control. She also has some right- sided weakness. She has had 2 falls including one in which she fractured her right kneecap. She has been following with Dr. Plummer and was scheduled for back surgery next week. Patient has had increasing difficulty with her leg giving out and worsening bladder and bowel control and patient is scheduled for surgery this week. She normally uses a walker for ambulation. She states the pain has been bad for several years and radiation to her chest impacted the thoracic spine when she was undergoing treatment for lymphoma. Her last dose of eliquis was on April 15. 04/17: Patient is scheduled for myelogram prior to surgical today. She has been seen by pulmonary medicine. She denies any new complaints. No shortness of breath. Patient has been afebrile, heart rate 90, blood pressure 120/79, pulse ox 96% on room air. Blood sugars are running between 123-184. 04/18: Patient is seen today in the intensive care unit. She underwent T12 through L2 decompression laminectomy, CAT scan of the lumbar spine which revealed large calcified posterior disc herniation at T12-L1. Small extradural air bubbles in the spinal canal consistent with recent surgery. CAT scan of the thoracic spine revealed fusion surgery at T12 level. Posterior pleural thickening and subsegmental atelectasis in the paraspinal mid and lower thorax appears new. Following procedure, patient became hypotensive and required transfer into the intensive care unit status post fluid boluses and norepinephrine drip. She is still on norepinephrine this morning. Lactated ringer changed to 0.9 normal saline as patient has had a high blood sugars. Patient is on Decadron 6 mg IV every 6 hours. Patient has been started on Lovenox 60 mg subcu every 12 hours due to recent diagnosis of DVT and PE. Patient has been afebrile, heart rate 105, blood pressure 95/55. Pulse ox 97% on 2 L nasal cannula. Hemoglobin is 8.7, WBC 11.8, platelet count 107. Sodium 134, potassium 3.3, chloride 111, CO2 23, creatinine 0.65. Blood sugars are running between 157 and 218. 04/19: Patient remains in the intensive care unit. She is off vasopressors and is status post fluid boluses and 1 unit packed RBCs. She states she is feeling better today. She is having some pain in her right leg with residual right leg weakness but feels like her right leg is stronger. Back pain is improved. Patient has been afebrile, heart rate 93, blood pressure 116/59, pulse ox 93% on 2 L nasal cannula. Repeat blood work reveals WBC 10.7, hemoglobin 9.1, platelet count 75. CO2 20, creatinine 0.53. Blood sugars running between 130 and 239. Last evening, patient had a CAT scan of the brain, CAT scan of the thoracic and cervical spine. All essentially normal with no acute findings. Discharge plan will be to [facility]. 04/20 patient remains in the ICU. She appears comfortable is moving her right lower extremity well. Patient's vitals this morning suggests a temp of 98 pulse 85 respiratory rate 21 and blood pressure 129/71 and saturating at 96% on room air hemoglobin is stable at 8.4 with a goal of keeping the hemoglobin above 8 platelets 88 blood sugar this morning 121 . Patient was added on Lantus 5 units twice a day based on the high blood sugars are running in the 250-260 range. Decadron reduced to 4 mg every 8 h. to monitor for hypoglycemia. Patient pain is under control. Continues to use incentive spirometry. Goal hemoglobin more than 8. Patient continues to be on Lovenox, will discuss with orthopedics to switch to elliqu patient examined bedside appears comfortable but weak today. Denies any shortness of breath or chest pain. Vitals assessed today afebrile pulse of 75 respiratory rate 16 blood pressure 100/63 oxygen saturation 95%. Patient continues to drop in hemoglobin. Hemoglobin today 7.8 hematocrit 24.3 platelet has improved since yesterday 95 glucose is well controlled on the current regimen. We will hold off NovoLog as patient continues to be tapered on Decadron. Currently switch her to milligram every 6 hours. Patient did receive unpacked of PRBC today. Patient's switch to an requests for anticoagulation. No episodes of diarrhea or stools since Wednesday. Occult stool ordered. No evidence of bleeding from anywhere. Continue pantoprazole 40 mg IV daily. If no improvement in hemoglobin to consider Repeat CAT scan of the back to rule out hematoma REVIEW OF SYSTEMS Constitutional: No fever, no chills, no night sweats. No weight change. Reports increased weakness No daytime sleepiness. EENT: No headache. No blurred vision or double vision, no loss of vision. No loss of Hearing, no ringing in the ears, Reports dizziness. No nasal drainage or congestion. No epistaxis. No sore throat. Lungs: Denies shortness of breath, cough, no sputum production. No wheezing. Cardiovascular: No chest pain, no left lower extremity edema. No palpitations. No paroxysmal nocturnal dyspnea. No orthopnea. No lightheadedness or dizziness. No syncopal episodes. Abdominal: No abdominal pain. No nausea, vomiting. No diarrhea. No constipation. No bloody or tarry stools. No loss of appetite. Genitourinary: No dysuria, increased frequency, urgency. No urinary retention. Reports incontinence, loss of bladder control Musculoskeletal: No myalgias. Reports muscle weakness similar to yesterday, reports gait dysfunction, Reports back pain-improving. No neck pain. Integumentary: No wounds, no lesions. No rash or pruritus. No unusual bruising. No change in hair or nails. Neurologic: No aphasia. No facial droop. No change in mentation. No head injury. No headache. No paralysis. No paresthesia. Psychiatric: No depression. No anxiety. Endocrine: Reports abnormal blood sugars. PHYSICAL EXAMINATION Gen: This is A 80-year-old female. Patient is resting ICU bed appears to be comfortable and in no acute distress. No respiratory distress is noted. HEENT: Head is atraumatic, normocephalic. Pupils equal, round. Sclerae is anicteric. NECK: Supple. No JVD. No lymphadenopathy. No thyromegaly. LUNGS: Clear to auscultation. No wheezes or rhonchi. No intercostal retractions. HEART: Regular rate and rhythm. No murmur. ABDOMEN: Soft. Bowel sounds are present. No masses. No tenderness. EXTREMITIES: No pedal edema. No calf tenderness. Dorsalis pedis palpable bilaterally. NEUROLOGICAL: Patient is awake, alert and oriented x3. Cranial nerves 2 through 12 are grossly intact. ASSESSMENT AND PLAN 1. T12-L1 severe spondylosis, severe canal stenosis and impending conus syndrome status post T12 through L2 decompression laminectomy. Incentive spirometry to reduce incidence of atelectasis and hospital-acquired pneumonia. Decadron reduced to2 mg every 6 hours. Continue current pain management. 2. Postop hypotension. Resolved Patient is on vasopressor, IV fluids discontinued Caffeine added. 3. Right lower lobe pulmonary embolism. Switched to an requests from Lovenox 4. Diabetes mellitus type 2, uncontrolled with hyperglycemia secondary to steroids. Hemoglobin A1c in November was 6.8. NovoLog scale before meals at bedtime. Lantus 5 twice a day and continue sliding scale lispro discontinued with meals 5. Non-Hodgkin's lymphoma [place] [address] Monaco and follows with Dr. Aranda, in remission. 6. History of TIA with no deficits. 7. History of GI bleed secondary to colon ulcer in November 2019 without recurrence. No new episodes of bleeding Continue Protonix. 8. Hypertension. Hold amlodipine 5 mg daily, and atenolol 50 mg twice daily for hypotension. 9. Hypothyroidism. Continue levothyroxine 12.5 g daily. 10. Seasonal ALLERGIES. Continue Singulair 10 mg at bedtime. 11. Recurrent depression. Continue Prozac 30 mg daily. 12. Chronic gout. Continue allopurinol 100 mg daily. 13. Hyperlipidemia. Patient is not currently on statin. 14. Restless leg syndrome. Continue Requip. 15. GERD and GI prophylaxis. Protonix 16 thrombocytopenia likely secondary to acute illness and bone marrow suppression. Continue to monitor. 17 acute blood loss anemia expected outcome of the surgery. Transfusion of one PRBC on 04/19 repeat transfusion of one PRBC on 04/21 hemoglobin stable Discharge plan: [facility] for subacute rehab. Objective - Vital Signs Vital signs: Vital Signs Temp 98.0 F 04/21/20 07:08 Pulse 75 04/21/20 07:08 Resp 16 04/21/20 07:08 BP 100/63 04/21/20 07:08 Pulse Ox 95 04/21/20 07:08 Intake & Output 04/20/20 04/21/20 04/21/20 18:59 06:59 18:59 Intake Total 406 Output Total 830 1400 Balance -424 -1400 Weight 77 kg Intake: IV 406 Pressure Bag 6 Sodium Chloride 0.9% 1, 200 000 ml @ 50 mls/hr IV . Q20H SANTOS Rx#:[id number] Sodium Chloride 0.9% 1, 200 000 ml @ 75 mls/hr IV . [id number] SANTOS Rx#:[id number] Output: Urine 830 1400 Other: Voiding Method Indwelling Catheter Indwelling Catheter Indwelling Catheter ABP, PAP, CO, CI - Last Documented Arterial Blood Pressure 121/68 - Labs CBC & Chem 7: 04/21/20 06:54 04/21/20 06:54 Labs: Abnormal Lab Results - Last 24 Hours (Table) 04/20/20 04/20/20 04/21/20 Range/Units 17:14 20:21 06:50 RBC (3.80-5.40) m/uL Hgb (11.4-16.0) gm/dL Hct (34.0-46.0) % RDW (11.5-15.5) % Plt Count (150-450) k/uL Lymphocytes # (Manual) (1.0-4.8) k/uL Metamyelocytes # (Man) (0) k/uL Myelocytes # (Manual) (0) k/uL POC Glucose (mg/dL) 130 H 221 H 143 H (75-99) mg/dL Crossmatch 04/21/20 04/21/20 04/21/20 Range/Units 06:54 11:50 12:21 RBC 2.63 L (3.80-5.40) m/uL Hgb 7.8 L (11.4-16.0) gm/dL Hct 24.3 L (34.0-46.0) % RDW 16.5 H (11.5-15.5) % Plt Count 95 L (150-450) k/uL Lymphocytes # (Manual) 0.22 L (1.0-4.8) k/uL Metamyelocytes # (Man) 0.15 H (0) k/uL Myelocytes # (Manual) 0.22 H (0) k/uL POC Glucose (mg/dL) 180 H (75-99) mg/dL Crossmatch See Detail
[2020-04-21] MEDS: MORPHINE SULFATE 4 MG/ML SYRINGE IV PRN (15:44)
[2020-04-21 16:32] LABS: Glucose,Whole Blood 152 mg/dL (75-99)
[2020-04-21 20:10] LABS: Glucose,Whole Blood 282 mg/dL (75-99)
[2020-04-21 21:23] LABS: Glucose,Whole Blood 198 mg/dL (75-99)
[2020-04-21] MEDS: MONTELUKAST 10 MG TAB PO SCH (21:26)
[2020-04-22] MEDS: ACETAMINOPHEN TAB 500 MG TAB PO SCH ×3 (01:06→12:09)
[2020-04-22] MEDS: DEXAMETHASONE SOD PHOSPHATE 4 MG/ML 1 ML VIAL IV SCH ×2 (01:06→07:59)
[2020-04-22 02:15] VITALS: TEMP 98
[2020-04-22] MEDS: LEVOTHYROXINE 25 MCG TAB PO SCH (05:12)
[2020-04-22] MEDS ORDERED: VANCOMYCIN TROUGH DUE 1 EACH MISC MISCELLANE ONE (07:00)
[2020-04-22 07:26] LABS: Glucose,Whole Blood 182 mg/dL (75-99)
[2020-04-22] MEDS: allopurinoL 100 MG TAB PO SCH (07:56)
[2020-04-22] MEDS: atenoloL 50 MG TAB PO SCH (07:57)
[2020-04-22] MEDS: GABAPENTIN 300 MG CAP PO SCH (07:57)
[2020-04-22] MEDS: INSULIN ASPART (NovoLOG) 100 UNIT/ML VIAL SQ SCH ×2 (07:58→12:10)
[2020-04-22] MEDS: INSULIN DETEMIR (LEVEMIR) 100 UNIT/ML SYR SQ SCH (07:58)
[2020-04-22] MEDS: APIXABAN 5 MG TAB PO SCH (07:58)
[2020-04-22] MEDS: VANCOMYCIN 1,250 MG in SODIUM CHLORIDE 0.9% 250 ML IVPB SCH (07:59)
[2020-04-22] MEDS: FLUoxetine HCL 10 MG CAP PO SCH (08:00)
[2020-04-22] MEDS: PANTOPRAZOLE 40 MG/10 ML VIAL IV SCH (08:00)
[2020-04-22] MEDS: polyethylene glycoL 3350 17 GM POWD.PACK PO SCH (08:00)
[2020-04-22 08:10] VITALS: BP 109/66; PULSE 85; RESP 20
[2020-04-22 08:59] LABS: African American GFR (CKD) 86 (>60 ml/min/1.73 sqM); Anion Gap 2 mmol/L; Blood Urea Nitrogen 16 mg/dL (7-17); Calcium 9.1 mg/dL (8.4-10.2); Carbon Dioxide 23 mmol/L (22-30); Chloride 112 mmol/L (98-107); Glucose 172 mg/dL (74-99); Non-African American GFR(CKD) 74 (>60 ml/min/1.73 sqM); Potassium 4.5 mmol/L (3.5-5.1); Sodium 137 mmol/L (137-145)
[2020-04-22] MEDS ORDERED: CAFFEINE CITRATE 60 MG/3 ML VIAL PO SCH (09:00)
--- NOTE | 2020-04-22 09:15 | P.PN ---
Subjective Progress Note Date: 04/22/20 Principal diagnosis: T12-L1 severe stenosis with impending conus syndrome and RLE weakness Patient seen and examined this morning. She is sitting up in bed. She states she feels a little bit weaker today than she has on previous days. Her steroid taper has been nearly completed. She denies any new numbness or tingling. She denies any new bowel or bladder symptoms. She denies any fevers chills shortness of breath chest pain headache nausea vomiting or vision changes. She did get up and work with therapy yesterday walked about 8 feet sat in her chair. She was unable to get to the commode easy enough to get the Mortensen out. Her current a.m. labs are pending. Her pressures have been good. Objective - Vital Signs Vital signs: Vital Signs Temp 98.0 F 04/22/20 08:10 Pulse 85 04/22/20 08:10 Resp 20 04/22/20 08:10 BP 109/66 04/22/20 08:10 Pulse Ox 97 04/22/20 08:10 Intake & Output 04/21/20 04/22/20 04/22/20 18:59 06:59 18:59 Intake Total 310 Output Total 2100 Balance 310 -2100 Weight 77.5 kg Intake: Blood Product 310 Rc As-1 Unit 310 [id number] Output: Urine 2100 Other: Voiding Method Indwelling Catheter Indwelling Catheter ABP, PAP, CO, CI - Last Documented Arterial Blood Pressure 121/68 - Exam Exam is stable. There is no change currently. She continues to get stronger in her RLE. She continues to have persistent TA weakness. EHL is firing although slightly weaker today than yesterday. Her left lower extremity has good strength. She is having some difficulty with hip flexion on the left however this is likely positional as how she is sitting in bed. Her right lower extremity however has good hip flexion which is better from previous exams.. MOTOR EXAM (0-5/5, N/T) STRENGTH RIGHT LEFT Shoulder Abd (not part of the LEONA score) 5 5 Elbow Flexors 5 5 Elbow Extensor 5 5 Wrist Dorsiflexors 5 5 Finger Abductor 5 5 Speaker Wirer 5 5 Hip Flexor (Not part of LEONA Motor score) 5 4+ Knee Flexor 5 5 Knee Extensor 5 4- Ankle dorsiflexor 5 2 Ankle plantarflexion 5 3 Extensor hallucis 5 2-3 REFLEXES(0-4/2, NT) RIGHTLEFT Upper Extremities 2 2 Lower Extremities 2 2 Pathological ReflexesRIGHTLEFT Franklin's Absent Absent Clonus Absent Absent CN II-XII grossly intact. Negative babinski b/l Sensation is intact to light touch and pain in the lower extremity is bilaterally in the L2 to S1 nerve distribution. Incision is clean, dry and intact. Drain was removed. No output. Drain site clear, no drainage. Dressed with 4x4 and tegaderm. On palpation, there is no hematoma noted - Neurologic Neurologic: Present: CNII-XII intact - Psychiatric Psychiatric: Present: A&O x's 3, appropriate affect, intact judgment & insight - Labs CBC & Chem 7: 04/21/20 06:54 04/22/20 07:02 Labs: Abnormal Lab Results - Last 24 Hours (Table) 04/21/20 04/21/20 04/21/20 Range/Units 06:54 11:50 12:21 Lymphocytes # (Manual) 0.22 L (1.0-4.8) k/uL Metamyelocytes # (Man) 0.15 H (0) k/uL Myelocytes # (Manual) 0.22 H (0) k/uL Chloride (98-107) mmol/L Glucose (74-99) mg/dL POC Glucose (mg/dL) 180 H (75-99) mg/dL Crossmatch See Detail 04/21/20 04/21/20 04/21/20 Range/Units 16:32 20:09 21:21 Lymphocytes # (Manual) (1.0-4.8) k/uL Metamyelocytes # (Man) (0) k/uL Myelocytes # (Manual) (0) k/uL Chloride (98-107) mmol/L Glucose (74-99) mg/dL POC Glucose (mg/dL) 152 H 282 H 198 H (75-99) mg/dL Crossmatch 04/22/20 04/22/20 Range/Units 07:02 07:20 Lymphocytes # (Manual) (1.0-4.8) k/uL Metamyelocytes # (Man) (0) k/uL Myelocytes # (Manual) (0) k/uL Chloride 112 H (98-107) mmol/L Glucose 172 H (74-99) mg/dL POC Glucose (mg/dL) 182 H (75-99) mg/dL Crossmatch Assessment and Plan Assessment: 80-year-old female postop day 5 from T12 to L2 posterior lateral instrumented fusion with T12 to L2 decompression laminectomy, left pedicle subtraction L1, dural erosion and repair. 1. T12-L1 severe spondylosis. 2. 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 Adjacent segment disease T12-L1 4. R foot drop, improved with improved hip flexion on the right. Postoperatively Plan: 1. Appreciate medical management. 2. Aggressive ambulation protocol. OOB for all meals. Up to chair x3 daily. AFO for her right lower extremity while up and about. Padded boot while in bed 3. Stop Decadron 4. Pain control, we changed her to Tylenol 1000 mg scheduled, OxyIR, Robaxin, and this seems to be helping her 5. Neuro checks every shift 6. Trend labs transfuse if hemoglobin less than 8 or hematocrit less than 23. Patient received 1 unit PRBCs yesterday and is doing much better from this 7. PT, OT . No braces needed for ambulation but OK for comfort when up and about 8. Patient switched back to her Eliquis for DVT/PE. 9. Continue vancomycin. Postoperative until DC. 10. Likely [facility] Wednesday vs . she is stable today per medicine for transfer to [facility]. Time with Patient: Greater than 30
[2020-04-22 09:28] LABS: Anisocytosis Slight; HCT 27.3 % (34.0-46.0); HGB 8.8 gm/dL (11.4-16.0); Hypochromasia Slight; MCHC 32.4 g/dL (31.0-37.0); MCV 92.7 fL (80.0-100.0); Mean Platelet Volume 8.7; Platelet Count 105 k/uL (150-450); Poikilocytosis Slight; RBC 2.94 m/uL (3.80-5.40); RDW 16.6 % (11.5-15.5); WBC 7.8 k/uL (3.8-10.6)
[2020-04-22 10:21] LABS: Band Neutrophils % 2 %; Lymphocytes # (M) 0.47 k/uL (1.0-4.8); Metamyelocytes # (M) 0.31 k/uL (0); Metamyelocytes % 4 %; Monocytes # (M) 0.47 k/uL (0-1.0); Myelocytes # (M) 0.55 k/uL (0); Myelocytes % 7 %; Neutrophils % (M) 76 %; Nucleated Red Blood Cells 0 /100 WBC (0-0); Total Cells Counted 200
--- NOTE | 2020-04-22 10:29 | P.DS ---
Providers Date of admission: 04/16/20 13:43 Expected date of discharge: 04/22/20 Attending physician: Claudio Plummer DO Consults: 04/15/20 22:34 Consult Physician Stat Consulting Provider: Carlos Enrique Farooq Consult Reason/Comments: R leg weakness, pending lumbar surgery, medical clearance Do you want consulting provider notified?: Yes 04/16/20 08:04 Consult Physician Urgent Consulting Provider: Kayla Eric Consult Reason/Comments: recent DVT/PE, clearance for OR 04/17/20 Do you want consulting provider notified?: Yes Primary care physician: Alvarez [facility] Hospital Course: This is a 80-year-old female one of Dr. Rocha patient with past medical history of type 2 diabetes, non-Hodgkin's lymphoma [place] [address] Monaco and follows with Dr. Aranda status post chemotherapy and radiation therapy, TIA 5 years ago, hypertension, hyperlipidemia, hypertension, hypothyroidism, restless leg syndrome, recurrent depression, and osteoarthritis who has been treated for lower back pain post multiple lower back surgery and epidural injection with pain management at [facility], previous admission for acute GI bleed and acute blood loss anemia status post EGD and colonoscopy which revealed antral gastritis, area of ulceration, nonbleeding, in the distal transverse colon, pulmonary embolism and left lower leg DVT diagnosed 03/08/2020 on eliquis Patient states that she has been having ongoing problems with back pain with right foot drop and lack of bladder control. She also has some right- sided weakness. She has had 2 falls including one in which she fractured her right kneecap. She has been following with Dr. Plummer and was scheduled for back surgery next week. Patient has had increasing difficulty with her leg giving out and worsening bladder and bowel control and patient is scheduled for surgery this week. She normally uses a walker for ambulation. She states the pain has been bad for several years and radiation to her chest impacted the thoracic spine when she was undergoing treatment for lymphoma. Her last dose of eliquis was on April 15. 04/17: Patient is scheduled for myelogram prior to surgical today. She has been seen by pulmonary medicine. She denies any new complaints. No shortness of breath. Patient has been afebrile, heart rate 90, blood pressure 120/79, pulse ox 96% on room air. Blood sugars are running between 123-184. 04/18: Patient is seen today in the intensive care unit. She underwent T12 through L2 decompression laminectomy, CAT scan of the lumbar spine which revealed large calcified posterior disc herniation at T12-L1. Small extradural air bubbles in the spinal canal consistent with recent surgery. CAT scan of the thoracic spine revealed fusion surgery at T12 level. Posterior pleural thickening and subsegmental atelectasis in the paraspinal mid and lower thorax appears new. Following procedure, patient became hypotensive and required transfer into the intensive care unit status post fluid boluses and norepinephrine drip. She is still on norepinephrine this morning. Lactated ringer changed to 0.9 normal saline as patient has had a high blood sugars. Patient is on Decadron 6 mg IV every 6 hours. Patient has been started on Lovenox 60 mg subcu every 12 hours due to recent diagnosis of DVT and PE. Patient has been afebrile, heart rate 105, blood pressure 95/55. Pulse ox 97% on 2 L nasal cannula. Hemoglobin is 8.7, WBC 11.8, platelet count 107. Sodium 134, potassium 3.3, chloride 111, CO2 23, creatinine 0.65. Blood sugars are running between 157 and 218. 04/19: Patient remains in the intensive care unit. She is off vasopressors and is status post fluid boluses and 1 unit packed RBCs. She states she is feeling better today. She is having some pain in her right leg with residual right leg weakness but feels like her right leg is stronger. Back pain is improved. Patient has been afebrile, heart rate 93, blood pressure 116/59, pulse ox 93% on 2 L nasal cannula. Repeat blood work reveals WBC 10.7, hemoglobin 9.1, platelet count 75. CO2 20, creatinine 0.53. Blood sugars running between 130 and 239. Last evening, patient had a CAT scan of the brain, CAT scan of the thoracic and cervical spine. All essentially normal with no acute findings. Discharge plan will be to [facility]. 04/20 patient remains in the ICU. She appears comfortable is moving her right lower extremity well. Patient's vitals this morning suggests a temp of 98 pulse 85 respiratory rate 21 and blood pressure 129/71 and saturating at 96% on room air hemoglobin is stable at 8.4 with a goal of keeping the hemoglobin above 8 platelets 88 blood sugar this morning 121 . Patient was added on Lantus 5 units twice a day based on the high blood sugars are running in the 250-260 range. Decadron reduced to 4 mg every 8 h. to monitor for hypoglycemia. Patient pain is under control. Continues to use incentive spirometry. Goal hemoglobin more than 8. Patient continues to be on Lovenox, will discuss with orthopedics to switch to elliquis 04/21 patient examined bedside appears comfortable but weak today. Denies any shortness of breath or chest pain. Vitals assessed today afebrile pulse of 75 respiratory rate 16 blood pressure 100/63 oxygen saturation 95%. Patient continues to drop in hemoglobin. Hemoglobin today 7.8 hematocrit 24.3 platelet has improved since yesterday 95 glucose is well controlled on the current regimen. We will hold off NovoLog as patient continues to be tapered on Decadron. Currently switch her to milligram every 6 hours. Patient did receive unpacked of PRBC today. Patient's switch to an requests for anticoagulation. No episodes of diarrhea or stools since Wednesday. Occult stool ordered. No evidence of bleeding from anywhere. Continue pantoprazole 40 mg IV daily. If no improvement in hemoglobin to consider Repeat CAT scan of the back to rule out hematoma. 04/22: Patient examined at bedside, sitting up in bed eating breakfast. Vital signs are stable blood pressure 109/66, heart rate 85, respiratory of 20, temperature 98.0, 97% on room air. Labs have improved since yesterday, hemoglobin 8.8, platelet count 105. She still has slight right foot drop. She'll be transferred to [facility] for subacute rehab. Discharge diagnoses 1. T12-L1 severe spondylosis, severe canal stenosis and impending conus syndrome status post T12 through L2 decompression laminectomy. 2. Postop hypotension. 3. Right lower lobe pulmonary embolism. 4. Diabetes mellitus type 2, uncontrolled with hyperglycemia secondary to steroids. 5. Non-Hodgkin's lymphoma [place] [address] Monaco and follows with Dr. Aranda, in remission. 6. History of TIA with no deficits. 7. History of GI bleed secondary to colon ulcer in November 2019 without recurrence. No new episodes of bleeding Continue Protonix. 8. Hypertension. 9. Hypothyroidism. 10. Seasonal ALLERGIES. 11. Recurrent depression. 12. Chronic gout. 13. Hyperlipidemia. 14. Restless leg syndrome. 15 thrombocytopenia likely secondary to acute illness and bone marrow suppression. 17 acute blood loss anemia expected outcome of the surgery. Transfusion of one PRBC on 04/19 repeat transfusion of one PRBC on 04/21 hemoglobin stable The above impression and plan of care have been discussed and directed by signing physician. Luciana Cruz nurse practitioner acting as scribe for signing physician. Patient Condition at Discharge: Stable Plan - Discharge Summary Discharge Rx Participant: No New Discharge Prescriptions: No Action allopurinoL [Zyloprim] 100 mg PO DAILY amLODIPine BESYLATE [Norvasc] 5 mg PO DAILY atenoloL [Tenormin] 50 mg PO BID Calcium Carb-Vit D 500Mg-200Un [Oscal 500+D] 1 tab PO DAILY Zolpidem [Ambien] 5 mg PO HS PRN PRN Reason: Insomnia Levothyroxine Sodium [Synthroid] 12.5 mcg PO DAILY Potassium Chloride 10 meq PO DAILY HYDROcodone/APAP 10-325MG [[place] 10-325] 1 tab PO Q8H PRN PRN Reason: Pain FLUoxetine HCL [PROzac] 10 mg PO DAILY FLUoxetine HCL [PROzac] 20 mg PO DAILY Omeprazole [PriLOSEC] 40 mg PO BID Montelukast Sodium [Singulair] 10 mg PO HS traMADol HCL 50 mg PO TID PRN PRN Reason: Pain Apixaban [Eliquis Starter Pack (for VTE)] See Taper PO BID rOPINIRole HCL [Requip] 2 mg PO BID Ipratropium Kila 0.06%Nasal [Atrovent Nasal 0.06%] 2 spray EA NOSTRIL BID Empagliflozin [Jardiance] 25 mg PO DAILY Discharge Medication List Calcium Carb-Vit D 500Mg-200Un [Oscal 500+D] 1 tab PO DAILY 01/05/14 [History] allopurinoL [Zyloprim] 100 mg PO DAILY 01/05/14 [History] amLODIPine BESYLATE [Norvasc] 5 mg PO DAILY 01/05/14 [History] atenoloL [Tenormin] 50 mg PO BID 01/05/14 [History] Levothyroxine Sodium [Synthroid] 12.5 mcg PO DAILY 03/16/14 [History] Zolpidem [Ambien] 5 mg PO HS PRN 03/16/14 [History] Potassium Chloride 10 meq PO DAILY 07/21/19 [History] HYDROcodone/APAP 10-325MG [[place] 10-325] 1 tab PO Q8H PRN 11/24/19 [History] FLUoxetine HCL [PROzac] 10 mg PO DAILY 03/08/20 [History] FLUoxetine HCL [PROzac] 20 mg PO DAILY 03/08/20 [History] Montelukast Sodium [Singulair] 10 mg PO HS 03/08/20 [History] Omeprazole [PriLOSEC] 40 mg PO BID 03/08/20 [History] traMADol HCL 50 mg PO TID PRN 03/08/20 [History] Apixaban [Eliquis Starter Pack (for VTE)] See Taper PO BID 03/16/20 [History] rOPINIRole HCL [Requip] 2 mg PO BID 03/16/20 [History] Ipratropium Kila 0.06%Nasal [Atrovent Nasal 0.06%] 2 spray EA NOSTRIL BID 04/15/20 [History] Empagliflozin [Jardiance] 25 mg PO DAILY 04/16/20 [History] Follow up Appointment(s)/Referral(s): Alvarez Rocha DO [Primary Care Provider] - 1-2 days Claudio Plummer DO [Doctor of Osteopathic Medicine] - 3 Weeks Patient Instructions/Handouts: Lumbar Spinal Fusion (DC), Lumbar Spinal Fusion (GEN) Activity/Diet/Wound Care/Special Instructions: Spine Surgery Discharge Summary Note Patient: Pretty Youngblood Admission Date: 04/15/2020 Discharge Date: [] PCP: [] Other Significant Providers: [facility]:Pulmonology; [facility]: IM Principal Diagnosis: 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 Postop hypotension. Resolved 3. Right lower lobe pulmonary embolism POA. On Eliquis 4. Diabetes mellitus type 2, uncontrolled Hemoglobin A1c in November was 6.8. NovoLog scale before meals at bedtime. Lantus 5 twice a day and continue sliding scale lispro discontinued with meals 5. Non-Hodgkin's lymphoma [place] [address] Monaco and follows with Dr. Aranda, in remission. 6. History of TIA with no deficits. 7. History of GI bleed secondary to colon ulcer in November 2019 without recurrence. No new episodes of bleeding Continue Protonix. 8. Hypertension. Hold amlodipine 5 mg daily, and atenolol 50 mg twice daily for hypotension. 9. Hypothyroidism. Continue levothyroxine 12.5 g daily. 10. Seasonal ALLERGIES. Continue Singulair 10 mg at bedtime. 11. Recurrent depression. Continue Prozac 30 mg daily. 12. Chronic gout. Continue allopurinol 100 mg daily. 13. Hyperlipidemia. Patient is not currently on statin. 14. Restless leg syndrome. Continue Requip. 15. GERD and GI prophylaxis. Protonix 16 thrombocytopenia likely secondary to acute illness and bone marrow suppression. Continue to monitor. 17 acute blood loss anemia expected outcome of the surgery. Transfusion of one PRBC on 04/19 repeat transfusion of one PRBC on 04/21 hemoglobin stable Discharge plan: [facility] for subacute rehab.] Discharge Medications: See list Hospital Course: [Patient was admitted to the hospital with decreased ambulatory ability impending Conus syndrome and right lower extremity weakness. She has a recent history of PE or DVT and was on eliquis. This portended any emergent imaging in the form of CT myelogram is a patient previous MRI did not show any diagnostic value. The patient was admitted to the hospital and started on steroids. She did fairly well with this but continued to have upper back pain low back pain right lower extremity weakness and issues with her bladder incontinence. She elected to undergo a procedure to decompress T12-L1 as well as remove the epidural mass that was present. She is seen and evaluated by medicine as well as pulmonology and cleared for surgery. She was off her eloquence for 2 days prior to surgery. She did get a CT myelogram before surgery which showed severe compression at T12-L1. She underwent an uneventful surgery. This was a larger surgery and so she was recovered in the intensive care unit for 2 days after surgery. She did well with that she did require blood transfusions while in the unit. On postoperative day 3 she was doing much better her labs have stabilized she is not requiring pressors to maintain her blood pressure and she was stable per the ICU doctors to discharge from the ICU and she went to a general medical floor. While on the floor she did well she was up to chair and up to commode. She is still weak in her lower extremities but gaining strength every day. She was happy with her outcome at this time.] Diet: [Consistent carbohydrate] Activity: [As tolerated, no lifting bending twisting] Discharge instructions given to the patient: [Yes] Maintain incision clean dry and intact. Okay to shower over incision and blot dry. Please remove dressing at 10 days postop on 04/27/2020. No soaking or submerging of the incisions. No ointments or creams or lotions on the incision. Maintain diann in place. Neurological dysfunction that comes on suddenly can also be a sign of a stroke. Below some common symptoms of a stroke are listed: B - balance difficulty such as sudden onset walking or leaning to one side - NEW E - eye problem such as sudden double vision or trouble seeing on one side - NEW F - Facial weakness or numbness on one side - NEW A - Arm or leg weakness or numbness on one side - NEW S - Slurred speech or difficulty with word finding - NEW T - Time is BRAIN! Call 911 as soon as you recognize these symptoms Primary Care: [Dr. Rocha] Please follow up with your primary care doctor within 1-2 weeks of discharge. Please call for an appointment. Spine Surgery Follow up Appointment: [Please call to confirm your appointment for 3 weeks from your surgery. [phone] Restrictions: [No lifting bending twisting no lifting greater than 5 pounds. Wear TLSO when up and about] Diet: Consume a regular diet rich in vegetables and lean protein such as chicken or fish. You should consume in a ratio of approximately 20% fats|40% carbohyd rates|40%protein. Vegetables, sweet potatoes, brown rice or quinoa are examples of good carbohydrates. Chips, white bread, cookies and sweets/sugar are examples of bad carbohydrates. Limit your bad carbs, go wild with good carbs. "Life's Simple 7" Guidelines as per [place] [employer] These will help you reclaim your life after surgery and carton forming machine helper in your recovery, keeping in mind your restrictions. (1) Get Active. Physical activity can help people lose weight, control high blood pressure and cholesterol, feel emotionally better, and sleep better. (2) Control Cholesterol. Avoid a diet high in saturated fat, trans fat, & cholesterol. Limit whole milk & cream, ice cream, butter, egg yolks, processed meats (like sausage and hot dogs), and fatty meats. Choose healthy foods that are low in saturated fat, trans fat and cholesterol which include: Fruits and vegetables, fiber rich grain products (like whole grain pasta and brown rice), lean meat such as chicken, fish, nuts, seeds, and legumes. (3) Eat Better. Eat small portions. Shop at the grocery with a list and do not stray from it. Tips for a health diet include: Limit sodium intake to less than 1500mg daily, avoid prepackaged, processed, and fast foods, choose a diet rich in fruits, vegetables, and whole grain, high fiber foods, and limit saturated & cholesterol in your diet. (4) Manage Blood Pressure. If you have high blood pressure, you should have a cuff at home so that you can check your blood pressure regularly. Be sure you have a good cuff. An arm one is generally better than a wrist one. Bring the cuff to a doctor's appointment to validate that the measurements that your cuff are taking are accurate. Take your blood pressure twice daily when you are sitting down and relaxing. Record the numbers in a log, and bring this log with you to your doctors' appointments. (5) Lose Weight if your BMI is above 25. A healthy BMI is between 19-25. To calculate Your BMI, You may use a Standard BMI Calculator on the NIH BMI website: www.nhlbi.nih.gov/guidelines/obesity/BMI/bmicalc.htm. Weigh oneself daily. If you are overweight, set a goal to lose weight. A pound a week loss if needed is a good target. (6) Reduce Blood Sugar. Limit foods and liquids with "added sugars." (Added sugars include sucrose, fructose, glucose, maltose, dextrose, high fructose corn syrup, corn syrup, concentrated fruit juice and honey). (7) Stop Smoking. If you smoke, quitting smoking is one of the best things that you can do for your health. Smoking increases your risk of heart attack, stroke, and peripheral vascular disease, which is a build-up of plaque in your arteries. Please discard all the cigarettes and lighters in your house. Have a plan for what you will do when you have the urge to smoke. Direct and second- hand smoke shortens your life as well as the lives of your family, friends and others around you. For your health and the health of those around you, please consider quitting! Smoking Cessation: Use the START Plan to Quit Smoking (please visit the Helpguide.org website listed below for more information): S = Set a quit date. Choose a date within the next 2 weeks, so you have enough time to prepare without losing your motivation to quit. If you mainly smoke at work, quit on the weekend, so you have a few days to adjust to the change. T = Tell family, friends, and co-workers that you plan to quit. Let your friends and family in on your plan to quit smoking and tell them you ne ed their support and encouragement to stop. Look for a quit kelton who wants to stop smoking as well. You can help each other get through the rough times. A = Anticipate and plan for the challenges you'll face while quitting. Most people who begin smoking again do so within the first 3 months. You can help yourself make it through by preparing ahead for common challenges, such as nicotine withdrawal and cigarette cravings. R = Remove cigarettes and other tobacco products from your home, car, and work. Throw away all of your cigarettes (no emergency pack!), lighters, ashtrays, and matches. Wash your clothes and freshen up anything that smells like smoke. Shampoo your car, clean your drapes and carpet, and steam your furniture. T = Talk to your doctor about getting help to quit. Your doctor can prescribe medication to help with withdrawal and suggest other alternatives. If you can't see a doctor, you can get many products over the counter at your local pharmacy or grocery store, including the nicotine patch, nicotine lozenges, and nicotine gum. Incomplete test results: It is imperative that you follow up on these tests results with your primary care doctor and/or your neurologist. Please discuss these tests at your follow up appointment. Your discharge medications: All medication refills should be obtained through your primary care doctor or your clinic neurosurgeon. Please discuss prescription refills at your follow up appointment. Do not call the hospital for medication refills.a Please do not take aspirin or over the counter anti-inflammatory drugs like ibuprofen. These medications can increase your risk of bleeding. He may continue however with her elimikaylais has this is still treating your PE/DVT. Please follow up with her director of cath lab who is treating your PE and DVT in 1 week. Discharge Destination [[facility]] Condition on Discharge: [Stable] Code Status this admission: Full Code Time Spent on Discharge Coordination: 40 minutes VTE prophylaxis: TEDS, SCDs, Mobilization Discharge Disposition: TRANSFER TO SNF/ECF Care Plan Goals (MU): 1. Able to perform activities of daily living independently 2. Ambulation with a walker. 3. Decreased pain. 4. Bowel and bladder recovery 5. Able to be safe at home. Plan of Treatment: Patient will be transferred to [facility] for continued care physical therapy and recovery
[2020-04-22] MEDS: IPRATROPIUM BROMIDE 0.06% NASAL SPRAY (15 ML) EA NOSTRIL SCH (10:32)
[2020-04-22 11:33] LABS: African American GFR (CKD) 81.8 (60.0-200.0); Non-African American GFR(CKD) 70.6 (60.0-200.0)
[2020-04-22 11:51] LABS: Glucose,Whole Blood 264 mg/dL (75-99)
--- NOTE | 2020-04-22 17:20 | P.PN ---
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 Rocha, who we had recently seen in consultation on 03/09/2020 1 patient was hospitalized with the right lower lobe pulmonary embolism, which was unprovoked, and acute on chronic DVT involving the left lower extremity. Patient at that time was started on Eliquis. Other medical history includes history of non-Hodgkin's lymphoma which has been in remission since 1993, family history of thromboembolic disease and pulmonary embolism with the factor V Leiden mutation, type 2 diabetes, history of GI bleeding, DJD, hypertension, hypothyroidism, history of TIA and chronic low back pain. She was seen in follow-up by Dr. Rosario in the office, and patient was planning on having surgery on her back, and the plan was to continue with the 3 months of anticoagulation prior to surgery. On 04/15/2020 patient presented to the emergency department per EMS with complaints of lower back pain, significant weakness in the right leg, with foot drop, and one episode of urinary incontinence. CT of the thoracic and lumbar spine shows multilevel posterior fusion surgery, spinal stenosis present at T12 to L1 with bony metastases in the spinal canal anteriorly on the left side but no acute fracture. Today she is having increased loss of sensation in the right lower extremity. She was evaluated by Dr. Plummer, who diagnosed the patient with the T12 to L1 severe spondylosis, T12 to L1 disc osteophyte complex with severe canal stenosis and impending conus syndrome, and recommended surgery with L1-2 removal of hardware with T12 to L2 decompression and fusion. Dr. Edward's and discussed the case with Dr. Rosario, and in view of rapid progression disabling nature of patient's symptoms, patient is cleared for surgery from pulmonary perspective and the recommendation to hold Eliquis for 1-2 days prior to surgery. Patient is currently not complaining of any pulmonary complaints, she is on room air with pulse ox of 95-98%, hemodynamically patient is stable. She has received at least 5 weeks of anticoagulation. Today's chest x-ray shows no acute cardiopulmonary process. Her labs have been reviewed, showing white blood cell count of 7.1, hemoglobin of 13.7, sodium 139, potassium 3.7, chloride is 111, CO2 is 21, BUN of 20 creatinine 0.76, LFTs were within normal limits. Vitals signs have been stable. Patient was reevaluated today on 04/18/20, patient is status post surgery for severe T12-L1 severe stenosis with impending conus syndrome and right lower extremity weakness. Patient was brought into the ICU late at night, and she was borderline hypotensive, required fluid boluses in the form of lactated Ringer's, she also required placement on norepinephrine drip to maintain a blood pressure with a mean of above 65. Presently her mean is 75, and she is on levo at 0.1 mcg/kg/m. Patient is doing fairly well, relatively asymptomatic, pain seems to be under control. Receiving morphine for pain control. Urine output is marginal 20-30 mL/h, hence I recommended another bolus of 0.9 normal saline, and I recommended that we start the patient on Lovenox 60 mg subcu every 12 hours mostly because of her recent history of DVT and pulmonary embolism. Patient was also seen by surgery and she informed the surgeon that the pain in her legs is much better. She can lift her right leg up off the bed, but she continues to have issues with dorsiflexion and plantar flexion. The surgeon felt that her left lower extremity is completely functional and her groin numbness and tingling seems to be improving. Labs today showed WBC count of 11.8 hemoglobin of 8.7. Electrolytes are normal except for slightly low potassium of 3.3 being corrected as per protocol. Patient was reevaluated today on 04/19/20, remains in the ICU, doing much better today compared to yesterday in p.m. Patient developed an episode of hypotension and tachycardia , patient responded to fluid boluses, and she received a unit of packed RBCs for a hemoglobin of 8. CT of the brain and CT of the spine came back basically unremarkable. Patient is hemodynamically stable today, she is in normal sinus rhythm, hemodynamically stable, not requiring any norepinephrine. Denies any headache, no nausea, no vomiting, denies any fever or chills, denies any shortness of breath. Minimal burning sensation in legs, improved compared to yesterday p.m. No new neurological changes in her lower extremities. Labs today showed normal WBC count, hemoglobin is 9.1, elective lites are normal. Renal profile is normal. Patient is back on Lovenox grams subcu every 12 hours mostly because the patient is high risk for deep vein thromboses and thrombus embolic disease Patient was reevaluated today on 04/20/20, remains in the intensive care unit, patient had basically a very uneventful night. She is off pressors. She is on Lovenox, hemoglobin is 8.4 today, platelets are low at 88,000, hence we'll discuss with orthopedics possibly switch Lovenox to Eliquis at 5 mg twice a day. Patient is doing very well with incentive spirometry, she is on room air, denies any pulmonary symptoms whatsoever. Her IV fluid is at 75 mL/h, 0.9 normal saline. Patient feels that her legs are a bit stronger. Continues to have significant right foot drop. Pain is fairly well-controlled. Patient is seen today 04/21/2020 in follow-up on the regular medical floor. She is currently sitting up in a chair at the bedside. Awake and alert in no acute distress. Maintaining O2 saturations in the mid 90s on room air. She's afebrile. Right lower extremity with increased mobility and strength. Hemoglobin remains low at 7.8. She received 1 unit of packed red blood cells. Continue vancomycin. Anticoagulated with Eliquis On 04/22/2020 patient seen in follow-up on the general medical surgical floor, she is awake and alert, in no acute distress, she is resting comfortably in bed, still has some mild numbness in her bilateral lower extremities, no loss of bowel or bladder function neurosurgery is following, she is on room air, pulse ox is 97%, vital signs have been stable, no complaints of shortness of breath, lung sounds are clear, no complaint of chest pain. Her oral anticoagulation form of Eliquis has been resumed. No acute events overnight, , patient has been participating with physical therapy, she was able to stand up and sit in a chair for a while. Her coronavirus PCR was negative, and discharge is pending for [facility] nursing [facility] rehab for rehabilitation Objective - Vital Signs Vital signs: Vital Signs Temp 98.0 F 04/22/20 08:10 Pulse 85 04/22/20 08:10 Resp 20 04/22/20 09:32 BP 109/66 04/22/20 08:10 Pulse Ox 97 04/22/20 08:10 Intake & Output 04/21/20 04/22/20 04/22/20 18:59 06:59 18:59 Intake Total 310 Output Total 2100 Balance 310 -2100 Weight 77.5 kg Intake: Blood Product 310 Rc As-1 Unit 310 [id number] Output: Urine 2100 Other: Voiding Method Indwelling Catheter Indwelling Catheter Indwelling Catheter ABP, PAP, CO, CI - Last Documented Arterial Blood Pressure 121/68 - Exam GENERAL EXAM: Alert, pleasant, 72-year-old white female, on room air pulse ox of 96% comfortable in no apparent distress. HEAD: Normocephalic/atraumatic. EYES: Normal reaction of pupils, equal size. Conjunctiva pink, sclera white. NOSE: Clear with pink turbinates. THROAT: No erythema or exudates. NECK: No masses, no JVD, no thyroid enlargement, no adenopathy. CHEST: No chest wall deformity. Symmetrical expansion. LUNGS: Equal air entry with no crackles, wheeze, rhonchi or dullness. CVS: Regular rate and rhythm, normal S1 and S2, no gallops, no murmurs, no rubs ABDOMEN: Soft, nontender. No hepatosplenomegaly, normal bowel sounds, no guarding or rigidity. EXTREMITIES: No clubbing, no edema, no cyanosis, 2+ pulses and upper and lower extremities. MUSCULOSKELETAL: Muscle strength and tone normal. SPINE: No scoliosis or deformity SKIN: No rashes CENTRAL NERVOUS SYSTEM: Alert and oriented -3. No focal deficits, tone is normal in all 4 extremities. PSYCHIATRIC: Alert and oriented -3. Appropriate affect. Intact judgment and insight. - Labs CBC & Chem 7: 04/22/20 07:02 04/22/20 07:02 Labs: Abnormal Lab Results - Last 24 Hours (Table) 04/21/20 04/21/20 04/21/20 Range/Units 12:21 20:09 21:21 RBC (3.80-5.40) m/uL Hgb (11.4-16.0) gm/dL Hct (34.0-46.0) % RDW (11.5-15.5) % Plt Count (150-450) k/uL Lymphocytes # (Manual) (1.0-4.8) k/uL Metamyelocytes # (Man) (0) k/uL Myelocytes # (Manual) (0) k/uL Chloride (98-107) mmol/L Glucose (74-99) mg/dL POC Glucose (mg/dL) 282 H 198 H (75-99) mg/dL Crossmatch See Detail 04/22/20 04/22/20 04/22/20 Range/Units 07:02 07:02 07:20 RBC 2.94 L (3.80-5.40) m/uL Hgb 8.8 L (11.4-16.0) gm/dL Hct 27.3 L (34.0-46.0) % RDW 16.6 H (11.5-15.5) % Plt Count 105 L (150-450) k/uL Lymphocytes # (Manual) 0.47 L (1.0-4.8) k/uL Metamyelocytes # (Man) 0.31 H (0) k/uL Myelocytes # (Manual) 0.55 H (0) k/uL Chloride 112 H (98-107) mmol/L Glucose 172 H (74-99) mg/dL POC Glucose (mg/dL) 182 H (75-99) mg/dL Crossmatch 04/22/20 Range/Units 11:47 RBC (3.80-5.40) m/uL Hgb (11.4-16.0) gm/dL Hct (34.0-46.0) % RDW (11.5-15.5) % Plt Count (150-450) k/uL Lymphocytes # (Manual) (1.0-4.8) k/uL Metamyelocytes # (Man) (0) k/uL Myelocytes # (Manual) (0) k/uL Chloride (98-107) mmol/L Glucose (74-99) mg/dL POC Glucose (mg/dL) 264 H (75-99) mg/dL Crossmatch Assessment and Plan Plan: Assessment: #1. Postoperative hypovolemic hypotension requiring fluid boluses, and 1 unit of packed red blood cells, improved #2. Right leg weakness, diminished sensation, urinary incontinence, related to T12 to L1 severe spondylosis, T12 to L1 disc osteophyte complex with severe canal stenosis and impending conus syndrome #3. Recent history of acute unprovoked pulmonary embolism and acute on chronic left lower extremity DVT, patient was started on Eliquis and so far has received approximately 5 weeks worth of anticoagulation. In view of neurological deficit progression and disabling nature of her symptoms, patient is scheduled for surgery with L1 through 2 removal of hardware with T12 to L2 decompression and fusion on 04/17/[address] Plummer #4. Right foot drop #5. Family history of thromboembolic disease, and hypercoagulable state with possibility of factor V mutation #6. Chronic low back pain #7. History of CVA/TIA #8. History of non-Hodgkin's lymphoma this posttreatment and has been in remission since 1993 #9. History of hypothyroidism #10. Osteoarthritis #11. Diabetes mellitus type 2 Plan: Patient is doing well, clinically stable, no worsening dyspnea, she's been resumed on oral anticoagulation for recent history of pulmonary embolism, no acute events overnight, vital signs have been stable, she is being discharged tomorrow nursing and rehab today for rehabilitation. I performed a history & physical examination of the patient and discussed their management with my nurse practitioner, Shae Mark. I reviewed the nurse practitioner's note and agree with the documented findings and plan of care. Lung sounds are positive for clear breath sounds. The findings and the impression was discussed with the patient. I attest to the documentation by the nurse practitioner. Time with Patient: Less than 30
[2020-04-23] MEDS ORDERED: PANTOPRAZOLE 40 MG TABLET PO SCH (07:30)
[2020-04-23] MEDS ORDERED: VANCOMYCIN 1,500 MG in SODIUM CHLORIDE 0.9% 250 ML IVPB SCH (08:00)
--- NOTE | 2020-04-23 14:44 | CDI ---
Documentation Clarification Form Date: 04/23/20 From: Dunia Beckman CCS Phone: If you have a question about this query, please contact Heavenly Bowers, Sales Support Technician at [phone] between 8am and 5pm. Admit Date: 04/16/20 Discharge Date:04/22/20 Patient Name: Pretty Youngblood Visit Number: [id number] ATTENTION: The Clinical Documentation Specialists (CDI) and [facility] Coding Staff appreciate your assistance in clarifying documentation. Please respond to the clarification below the line at the bottom and electronically sign. The CDI & [facility] Coding staff will review the response and follow-up if needed. Please note: Queries are made part of the Legal Health Record. If you have any questions, please contact the author of this message via ITS. Dear Dr. Plummer, The patient presented with the following stenosis T12-L2, failed fusion. Radiology documents: Spinal stenosis is present at T12-L1 with bony mass in the spinal canal anteriorly on the left side Consult 04/16, PNs document: CT of the thoracic and lumbar spine shows multilevel posterior fusion surgery, spinal stenosis present at T12 to L1 with bony metastases in the spinal canal anteriorly on the left side but no acute fracture History/Risk Factors: DVT, Hx fusion, DM, Hx lymphoma, HTN Clinical Indicators: Bony mass in the spinal canal anteriorly Radiology findings: Spinal stenosis is present at T12-L1 with bony mass in the spinal canal anteriorly on the left side. Procedure: 1.T12-L2 decompressive laminectomy, bilateral. 2.Left L1 pedicle subtraction with epidural mass resection. 3.T12-L1 interbody fusion. 4.T12-L2 posterior lateral instrumented fusion. 5.Repair of dural erosion. In your professional opinion, can you please clarify bony mass? Bony metastasis Osteophyte Scar tissue Other, please specify Unable to determine Bony mass was osteophyte and scar tissue. [facility] report # [id number] MTDD
--- NOTE | 2020-04-23 14:55 | CDI ---
Documentation Clarification Form Date: 04/23/20 From: Dunia Beckman CCS Phone: If you have a question about this query, please contact Heavenly Bowers, Social Human Services Assistants at [phone] between 8am and 5pm. Admit Date: 04/16/20 Discharge Date: 04/22/20 Patient Name: Pretty Youngblood Visit Number: [id number] ATTENTION: The Clinical Documentation Specialists (CDI) and [facility] Coding Staff appreciate your assistance in clarifying documentation. Please respond to the clarification below the line at the bottom and electronically sign. The CDI & [facility] Coding staff will review the response and follow-up if needed. Please note: Queries are made part of the Legal Health Record. If you have any questions, please contact the author of this message via ITS. Dear Dr. Plummer, Postoperative hypotension is documented in the PNs, DS. History/Risk Factors: ABLA, HTN, DM, Thrombocytopenia, Hypovolemia Clinical Indicators: Patients B/P: 44/34 Treatment: Levophed 4mg IV In your professional opinion, can you please specify the etiology of the hypotension if known? Idiopathic Hypotension Drug Induced Hypotension (please specify drug) Postoperative Hypotension unexpected complication Postoperative Hypotension expected outcome Other Condition, please specify Unable to determine Postoperative hypotension expected outcome due to comorbid conditions, patient's advanced age, blood loss intraoperatively, complexity of surgical procedure. MTDD
== END 2020-04-22 14:15 | DRG 454 ==
LOC: EC 20:17 → 6NMEDSUR 22:24 → OBSVTOIN 04-16 13:43 → 2SICU 04-17 23:33 → 4SSUR 04-20 20:40
PROVIDERS: ADMIT Orthopaedic Surgery; ATTEND Orthopaedic Surgery
PROC: 3E033XZ Introduction of Vasopressor into Peripheral Vein, Percutaneous Approach (ICD-10-PCS; 2020-04-17)
PROC: 01NB0ZZ Release Lumbar Nerve, Open Approach (ICD-10-PCS; principal; 2020-04-17 07:30)
PROC: B01B1ZZ Fluoroscopy of Spinal Cord using Low Osmolar Contrast (ICD-10-PCS; principal; 2020-04-17 07:30)
PROC: 0RGA071 Fusion of Thoracolumbar Vertebral Joint with Autologous Tissue Substitute, Posterior Approach, Posterior Column, Open Approach (ICD-10-PCS; principal; 2020-04-17 07:30)
PROC: 0RGA0AJ Fusion of Thoracolumbar Vertebral Joint with Interbody Fusion Device, Posterior Approach, Anterior Column, Open Approach (ICD-10-PCS; principal; 2020-04-17 07:30)
PROC: 0SP004Z Removal of Internal Fixation Device from Lumbar Vertebral Joint, Open Approach (ICD-10-PCS; principal; 2020-04-17 07:30)
PROC: 0SG0071 Fusion of Lumbar Vertebral Joint with Autologous Tissue Substitute, Posterior Approach, Posterior Column, Open Approach (ICD-10-PCS; principal; 2020-04-17 07:30)
PROC: 00NY0ZZ Release Lumbar Spinal Cord, Open Approach (ICD-10-PCS; principal; 2020-04-17 07:30)
PROC: 30233N1 Transfusion of Nonautologous Red Blood Cells into Peripheral Vein, Percutaneous Approach (ICD-10-PCS; 2020-04-18)
DX: M48.05 Spinal stenosis, thoracolumbar region (principal); F33.9 Major depressive disorder, recurrent, unspecified; G95.29 Other cord compression; I82.502 Chronic embolism and thrombosis of unspecified deep veins of left lower extremity; D62 Acute posthemorrhagic anemia; M96.0 Pseudarthrosis after fusion or arthrodesis; Z20.828 Contact with and (suspected) exposure to other viral communicable diseases; I95.89 Other hypotension; D69.59 Other secondary thrombocytopenia; E11.65 Type 2 diabetes mellitus with hyperglycemia; I10 Essential (primary) hypertension; E78.5 Hyperlipidemia, unspecified; K21.9 Gastro-esophageal reflux disease without esophagitis; F41.9 Anxiety disorder, unspecified; M21.371 Foot drop, right foot; M25.78 Osteophyte, vertebrae; I45.10 Unspecified right bundle-branch block; R00.1 Bradycardia, unspecified; E03.9 Hypothyroidism, unspecified; J30.2 Other seasonal allergic rhinitis; M1A.9XX0 Chronic gout, unspecified, without tophus (tophi); G25.81 Restless legs syndrome; G89.29 Other chronic pain; M47.815 Spondylosis without myelopathy or radiculopathy, thoracolumbar region; M48.061 Spinal stenosis, lumbar region without neurogenic claudication; M51.25 Other intervertebral disc displacement, thoracolumbar region; E86.1 Hypovolemia; E66.9 Obesity, unspecified; F40.240 Claustrophobia; R32 Unspecified urinary incontinence; I83.90 Asymptomatic varicose veins of unspecified lower extremity; T38.0X5A Adverse effect of glucocorticoids and synthetic analogues, initial encounter; Y83.8 Other surgical procedures as the cause of abnormal reaction of the patient, or of later complication, without mention of misadventure at the time of the procedure; Z68.31 Body mass index [BMI] 31.0-31.9, adult; Z79.890 Hormone replacement therapy; Z79.899 Other long term (current) drug therapy; Z91.048 Other nonmedicinal substance allergy status; Z86.711 Personal history of pulmonary embolism; Z92.3 Personal history of irradiation; Z92.21 Personal history of antineoplastic chemotherapy; Z86.73 Personal history of transient ischemic attack (TIA), and cerebral infarction without residual deficits; Z85.72 Personal history of non-Hodgkin lymphomas; Z90.49 Acquired absence of other specified parts of digestive tract; Z90.710 Acquired absence of both cervix and uterus; Z96.652 Presence of left artificial knee joint; Z98.890 Other specified postprocedural states; Z98.1 Arthrodesis status; Z96.651 Presence of right artificial knee joint; Z87.81 Personal history of (healed) traumatic fracture; Z91.81 History of falling; Z79.01 Long term (current) use of anticoagulants; Z87.19 Personal history of other diseases of the digestive system; Z87.11 Personal history of peptic ulcer disease; Z88.1 Allergy status to other antibiotic agents; Z88.0 Allergy status to penicillin; Z88.2 Allergy status to sulfonamides; Z88.8 Allergy status to other drugs, medicaments and biological substances; Z83.2 Family history of diseases of the blood and blood-forming organs and certain disorders involving the immune mechanism; Z82.49 Family history of ischemic heart disease and other diseases of the circulatory system; Z80.3 Family history of malignant neoplasm of breast; Z82.0 Family history of epilepsy and other diseases of the nervous system; Z82.3 Family history of stroke; Z80.1 Family history of malignant neoplasm of trachea, bronchus and lung
CPT/HCPCS: 36415; 62305; 70450; 71045; 71046; 72100; 72125; 72128; 72129; 72131; 72132; 80048; 80053; 80202; 82272; 82565; 83036; 83605; 85025; 85027; 85610; 85730; 86850; 86891; 86900; 86901; 86920; 87635; 93005; 96374; 96375; 99285

== ENCOUNTER 2020-06-04 15:46 | Observation (INO) | payer MEDICARE, BC ==
[2020-06-04] MEDS ORDERED: MORPHINE SULFATE 4 MG/ML SYRINGE IM STA (17:35)
--- NOTE | 2020-06-04 18:32 | CT ---
EXAMINATION TYPE: CT lumbar spine wo con DATE OF EXAM: 06/04/2020 COMPARISON: 04/18/2020 HISTORY: Low back pain post OP Spet 2019 CT DLP: 1061.6 mGycm Automated exposure control for dose reduction was used. Images obtained from T10 to S3 vertebra with no contrast. There is mild lumbar dextroscoliosis. There are rods and screws fusing posteriorly lumbar spine from L4 to S1. There is posterior rods and screws fusing the lumbar spine from L2 to T12. There is 25% compression deformity of the L1 vertebral body with osteosclerosis. There is osteopenia. There is no lumbar paraspinal mass. Sacroiliac joints are intact. Spinal canal difficult to evaluate because of artifact. The endplates at the T12-L1 disc are indistinct. IMPRESSION: Multilevel posterior fusion surgery. There is compression fracture and sclerosis and loss of height o f L1 vertebral body that has progressed compared to old exam. There are some destructive changes on b oth sides of the T12-L1 disc. This could relate to some chronic discitis.
[2020-06-04 19:02] LABS: ALT 13 U/L (4-34); AST 21 U/L (14-36); African American GFR (CKD) >90 (>60 ml/min/1.73 sqM); Albumin 4.1 g/dL (3.5-5.0); Alkaline Phosphatase 100 U/L (38-126); Anion Gap 9 mmol/L; Blood Urea Nitrogen 17 mg/dL (7-17); Calcium 9.5 mg/dL (8.4-10.2); Carbon Dioxide 21 mmol/L (22-30); Chloride 109 mmol/L (98-107); Glucose 165 mg/dL (74-99); Non-African American GFR(CKD) 89 (>60 ml/min/1.73 sqM); Potassium 3.7 mmol/L (3.5-5.1); Sodium 139 mmol/L (137-145); Total Bilirubin 0.6 mg/dL (0.2-1.3); Total Protein 6.9 g/dL (6.3-8.2)
[2020-06-04 19:20] LABS: Anisocytosis Slight; Basophils % (A) 0 %; Eosinophils # (A) 0.1 k/uL (0-0.7); Eosinophils % (A) 1 %; HGB 12.2 gm/dL (11.4-16.0); Hypochromasia Moderate; Lymphocytes # (A) 0.7 k/uL (1.0-4.8); Lymphocytes % (A) 9 %; MCHC 31.2 g/dL (31.0-37.0); MCV 89.7 fL (80.0-100.0); Monocytes # (A) 0.6 k/uL (0-1.0); Monocytes % (A) 7 %; Neutrophils # (A) 6.6 k/uL (1.3-7.7); Neutrophils % (A) 83 %; RBC 4.35 m/uL (3.80-5.40); RDW 16.5 % (11.5-15.5)
[2020-06-04 19:21] LABS: Platelet Count 217 k/uL (150-450)
[2020-06-04] MEDS ORDERED: IBUPROFEN 400 MG TAB PO STA (19:24)
[2020-06-04] MEDS ORDERED: IBUPROFEN 400 MG TAB PO PRN (20:04)
[2020-06-04] MEDS ORDERED: NALOXONE 0.4 MG/ML 1 ML VIAL IV PRN (20:04)
--- NOTE | 2020-06-04 20:06 | ED ---
General Adult HPI - General Source: patient, RN notes reviewed, old records reviewed Mode of arrival: wheelchair Limitations: no limitations <Sriram Allen - Last Filed: 06/04/20 20:00> <Kota Minor - Last Filed: 06/04/20 23:44> - General Chief complaint: Back Pain/Injury Stated complaint: Back/Hip pain Time Seen by Provider: 06/04/20 16:52 - History of Present Illness Initial comments: 80-year-old female patient to ED for right paralumbar back pain rating down the right leg. Patient did have a lumbar laminectomy and revision fusion on 04/17. Patient reports that the last 3 days she has been having lots of pain. The right lower extremity is a little bit weaker. She reports some paresthesias going on the right lower extremity, she reports that she has had these to some extent since her original surgery. She denies any recent falls or trauma. Reports that since her initial surgery she has had some waxing and waning aesthesias which extend down to the vaginal region. Denies any new onset loss of bowel or bladder control. Systemic: Pt denies fatigue, fever/chills, rash. Pt denies weakness, night sweats, weight loss. Neuro: Pt denies headache, visual disturbances, syncope or pre-syncope. HEENT: Pt denies ocular discharge or irritation, otalgia, rhinorrhea, pharyngitis or notable lymphadenopathy. Cardiopulmonary: Pt denies chest pain, SOB, heart palpitations, dyspnea on exertion. Abdominal/GI: Pt denies abdominal pain, n/v/d. : Pt denies dysuria, burning w/ urination, frequency/urgency. Denies new onset urinary or bowel incontinence. (Sriram Allen) - Related Data Home Medications Medication Instructions Recorded Confirmed Calcium Carb-Vit D 500Mg-200Un 1 tab PO DAILY 01/05/14 06/04/20 [Oscal 500+D] allopurinoL [Zyloprim] 100 mg PO DAILY 01/05/14 06/04/20 atenoloL [Tenormin] 50 mg PO HS 01/05/14 06/04/20 Levothyroxine Sodium [Synthroid] 12.5 mcg PO DAILY 03/16/14 06/04/20 Zolpidem [Ambien] 5 mg PO HS PRN 03/16/14 06/04/20 Omeprazole [PriLOSEC] See Taper PO DIRECTED 03/08/20 06/04/20 rOPINIRole HCL [Requip] 4 mg PO TID PRN 03/16/20 06/04/20 Ipratropium [place] 0.06%Nasal 2 spray EA NOSTRIL BID 04/15/20 06/04/20 [Atrovent Nasal 0.06%] Acetaminophen-Codeine 300-30mg 1 tab PO TID PRN 06/04/20 06/04/20 [Tylenol w/codeine #3] FLUoxetine HCL [PROzac] 40 mg PO DAILY 06/04/20 06/04/20 Gabapentin [Neurontin] 300 mg PO TID 06/04/20 06/04/20 Glyxambi (Unknown Strength) 1 tab PO DAILY 06/04/20 06/04/20 polyethylene glycoL 3350 [Miralax] 17 gm PO DAILY PRN 06/04/20 06/04/20 Previous Rx's Medication Instructions Recorded Apixaban [Eliquis] 5 mg PO BID tab 04/22/20 methocarbamoL [Robaxin] 750 mg PO QID PRN tab 04/22/20 Allergies Allergy/AdvReac Type Severity Reaction Status Date / Time adhesive Allergy red skin, Verified 06/04/20 20:39 blisters cefaclor [From Ceclor] Allergy Rash/Hives Verified 06/04/20 20:39 ciprofloxacin [From Cipro] Allergy Rash/Hives Verified 06/04/20 20:39 ciprofloxacin HCl Allergy Rash/Hives Verified 06/04/20 20:39 [From Cipro] hydromorphone HCl Allergy Anaphylaxis Verified 06/04/20 20:39 [From Dilaudid] Penicillins Allergy Rash/Hives Verified 06/04/20 20:39 sulfamethoxazole AdvReac Abdominal Verified 06/04/20 20:39 [From Bactrim] Pain trimethoprim [From Bactrim] AdvReac Abdominal Verified 06/04/20 20:39 Pain Review of Systems ROS Other: All systems not noted in ROS Statement are negative. <Sriram Allen - Last Filed: 06/04/20 20:00> ROS Other: All systems not noted in ROS Statement are negative. <Kota Minor - Last Filed: 06/04/20 23:44> ROS Statement: Those systems with pertinent positive or pertinent negative responses have been documented in the HPI. Past Medical History Past Medical History: Cancer, Diabetes Mellitus, Deep Vein Thrombosis (DVT), GERD/Reflux, Hyperlipidemia, Hypertension, Osteoarthritis (OA), Pulmonary Embolus (PE), Syncope Additional Past Medical History / Comment(s): TIA X2, SYNCOPE in 2013, VARICOSE VEINS, GOUT, LYMPHOMA (HX OF CHEMO & RADIATION 1977,1982 & 1993) History of Any Multi-Drug Resistant Organisms: None Reported Past Surgical History: Back Surgery, Cholecystectomy, Hysterectomy, Joint Replacement, Orthopedic Surgery Additional Past Surgical History / Comment(s): RIGHT HIP REPAIR, LEFT KNEE REPLACEMENT, HAND & FOOT SURG, BREAST & AXILLARY BX, TUMOR IN THROAT REMOVED., CERVICAL FUSION, 02-07-15 LUMBAR LAMINECTOMY,DECOMPRESSION-FUSION L1-L2., right knee replaced 07-31-19 Past Anesthesia/Blood Transfusion Reactions: No Reported Reaction Additional Past Anesthesia/Blood Transfusion Reaction / Comment(s): CLAUSTROPHOBIA Past Psychological History: Anxiety, Depression Smoking Status: Never smoker Past Alcohol Use History: None Reported Past Drug Use History: None Reported - Past Family History Father Family Medical History: Deep Vein Thrombosis (DVT) Additional Family Medical History / Comment(s): Father at age 32 from pulmonary embolism. Mother Family Medical History: Cancer Additional Family Medical History / Comment(s): Mother in her late 80s from breast cancer and also had dementia. Brother(s) Family Medical History: Cancer, Deep Vein Thrombosis (DVT) Additional Family Medical History / Comment(s): Patient had 2 brothers that have passed one from myocardial infarction and one from pulmonary embolism. 2 brothers are alive and one has lung cancer, one brother is alive with a brain a neurysm and CVA. <Sriram Allen - Last Filed: 06/04/20 20:00> General Exam Limitations: no limitations <Sriram Allen - Last Filed: 06/04/20 20:00> - General Exam Comments Initial Comments: Constitutional: NAD, AOX3, Pt has pleasant affect. HEENT: NC/AT, trachea midline, neck supple, no lymphadenopathy. Posterior pharynx non erythematous, without exudates. External ears appear normal, without discharge. Mucous membranes moist. Eyes PERRLA, EOM intact. There is no scleral icterus. No pallor noted. Cardiopulmonary: RRR, no murmurs, rubs or gallops, no JVD noted. Lungs CTAB in anterior and posterior trotter. No peripheral edema. Abdominal exam: Abdomen soft and non-distended. Abdomen non-tender to palpation in all 4 quadrants. Bowel sounds active in LLQ. No hepatosplenomegaly. No ecchymosis Neuro: CN II-XII grossly intact. No nuchal rigidity. No raccon eyes, no holt sign, no hemotympanum. No cervical spinal tenderness. MSK: Mild tenderness to the midline lumbar right paralumbar region. No skin changes. Order 5 strength right lower extremity 5 out of 5 strength left lower extremity. Sensation intact. Rectal tone intact. (Sriram Allen) Course <Kota Minor - Last Filed: 06/04/20 23:44> Vital Signs 06/04/20 16:46 Temperature 98.3 F Pulse Rate 93 Respiratory 20 Rate Blood Pressure 135/99 O2 Sat by Pulse 99 Oximetry - Reevaluation(s) Reevaluation #1: 06/04/20 23:44 I was asked to enter replacement ordered for this patient, no other interaction (Kota Minor) Medical Decision Making - Lab Data Result diagrams: 06/04/20 18:44 06/04/20 18:44 <Sriram Allen - Last Filed: 06/04/20 20:00> - Lab Data Result diagrams: 06/04/20 18:44 06/04/20 18:44 <Kota Minor - Last Filed: 06/04/20 23:44> - Medical Decision Making 80-year-old female patient to ED for 3 days of back pain she reports some paresthesias going down the right lower extremity. Patient vital signs are stable, afebrile. Physical symptoms with some tenderness and a slightly weaker right lower extremity. The lumbar spine without contrast displays a compression fracture and sclerosis loss of height of L1 vertebral body that has progressed compared old exam. PVR 150. I discussed case with Dr. Douglas. He recommended to admit the patient to the hospital however did not recommend steroids at this time. Patient admitted for further evaluation. Case discussed with Dr. Rivera. (Sriram Allen) - Lab Data Lab Results 06/04/20 06/04/20 Range/Units 18:44 18:44 WBC 8.0 (3.8-10.6) k/uL RBC 4.35 (3.80-5.40) m/uL Hgb 12.2 (11.4-16.0) gm/dL Hct 39.0 (34.0-46.0) % MCV 89.7 (80.0-100.0) fL MCH 28.0 (25.0-35.0) pg MCHC 31.2 (31.0-37.0) g/dL RDW 16.5 H (11.5-15.5) % Plt Count 217 D (150-450) k/uL MPV 7.0 Neutrophils % 83 % Lymphocytes % 9 % Monocytes % 7 % Eosinophils % 1 % Basophils % 0 % Neutrophils # 6.6 (1.3-7.7) k/uL Lymphocytes # 0.7 L (1.0-4.8) k/uL Monocytes # 0.6 (0-1.0) k/uL Eosinophils # 0.1 (0-0.7) k/uL Basophils # 0.0 (0-0.2) k/uL Hypochromasia Moderate Anisocytosis Slight Sodium 139 (137-145) mmol/L Potassium 3.7 (3.5-5.1) mmol/L Chloride 109 H (98-107) mmol/L Carbon Dioxide 21 L (22-30) mmol/L Anion Gap 9 mmol/L BUN 17 (7-17) mg/dL Creatinine 0.57 (0.52-1.04) mg/dL Est GFR (CKD-EPI)AfAm >90 (>60 ml/min/1.73 sqM) Est GFR (CKD-EPI)NonAf 89 (>60 ml/min/1.73 sqM) Glucose 165 H (74-99) mg/dL Calcium 9.5 (8.4-10.2) mg/dL Total Bilirubin 0.6 (0.2-1.3) mg/dL AST 21 (14-36) U/L ALT 13 (4-34) U/L Alkaline Phosphatase 100 (38-126) U/L Total Protein 6.9 (6.3-8.2) g/dL Albumin 4.1 (3.5-5.0) g/dL Disposition Is patient prescribed a controlled substance at d/c from ED?: No <Sriram Allen - Last Filed: 06/04/20 20:00> <Kota Minor - Last Filed: 06/04/20 23:44> Clinical Impression: Compression fracture Disposition: ADMITTED IP TO THIS HOSP Condition: Fair Referrals: Alvarez Rocha DO [Primary Care Provider] - 1-2 days
[2020-06-04] MEDS: MORPHINE SULFATE 4 MG/ML SYRINGE IV PRN (21:23)
[2020-06-04] MEDS ORDERED: Acetaminophen-Codeine 300-30mg TAB PO PRN (22:48)
[2020-06-05] MEDS ORDERED: rOPINIRole HCL 4 MG TABLET PO PRN ×2 (01:00→09:00)
[2020-06-05] MEDS ORDERED: GABAPENTIN 300 MG CAP PO SCH ×3 (01:00→21:00)
[2020-06-05] MEDS: atenoloL 50 MG TAB PO SCH ×2 (01:25→19:29)
[2020-06-05] MEDS: ZOLPIDEM 5 MG TAB PO PRN ×2 (01:25→19:28)
[2020-06-05] MEDS: APIXABAN 5 MG TAB PO SCH ×3 (01:25→19:29)
[2020-06-05] MEDS: MORPHINE SULFATE 4 MG/ML SYRINGE IV PRN (03:21)
[2020-06-05] MEDS: LEVOTHYROXINE 25 MCG TAB PO SCH (05:50)
[2020-06-05 06:36] LABS: Glucose,Whole Blood 127 mg/dL (75-99)
[2020-06-05] MEDS: GLYXAMBI PO SCH (07:51)
[2020-06-05] MEDS: CALCIUM CARB-VIT D 500MG-200UN 1 EACH TAB PO SCH (08:00)
[2020-06-05] MEDS: allopurinoL 100 MG TAB PO SCH (08:01)
[2020-06-05] MEDS: FLUoxetine HCL 20 MG CAP PO SCH (08:01)
[2020-06-05] MEDS: PANTOPRAZOLE 40 MG TABLET PO SCH (08:01)
[2020-06-05] MEDS: IPRATROPIUM BROMIDE 0.06% NASAL SPRAY (15 ML) EA NOSTRIL SCH ×2 (08:01→19:32)
--- NOTE | 2020-06-05 08:10 | P.CNOR ---
History of Present Illness - HPI Consult date: 06/05/20 Consult reason: back pain History of present illness: Pretty is a 80 yo female that presents with increase in her LBP over the past three days. Pt had revision T12-L2 fusion and decompression in mar and has done well from this. She states her pain is not related to the surgery but is lower in her back where she has had previous surgeries. She states some numbness/tingling in her RLE that has been present since surgery but seemed to get worse. She has had RLE weakness since surgery and this is actually improved greatly since the surgery. She denies any bowel or bladder incontinence. She denies any perineal numbness/tingling at this time. No f/c/sob/cp/n/v/d at this time. She takes Tylenol#3 at home but this does not seem to be helping her pain. She was just started on Gabapentin 300 TID which she states does help. Review of Systems 14 points review of systems completed and as stated in HPI or otherwise negative. Past Medical History Past Medical History: Cancer, Diabetes Mellitus, Deep Vein Thrombosis (DVT), GERD/Reflux, Hyperlipidemia, Hypertension, Osteoarthritis (OA), Pulmonary Embol us (PE), Syncope Additional Past Medical History / Comment(s): TIA X2, SYNCOPE in 2013, VARICOSE VEINS, GOUT, LYMPHOMA (HX OF CHEMO & RADIATION 1977,1982 & 1993) History of Any Multi-Drug Resistant Organisms: None Reported Past Surgical History: Back Surgery, Cholecystectomy, Hysterectomy, Joint Replacement, Orthopedic Surgery Additional Past Surgical History / Comment(s): RIGHT HIP REPAIR, LEFT KNEE REPLACEMENT, HAND & FOOT SURG, BREAST & AXILLARY BX, TUMOR IN THROAT REMOVED., CERVICAL FUSION, 16-15 LUMBAR LAMINECTOMY,DECOMPRESSION-FUSION L1-L2., right knee replaced 07-31-19 Past Anesthesia/Blood Transfusion Reactions: No Reported Reaction Additional Past Anesthesia/Blood Transfusion Reaction / Comm: CLAUSTROPHOBIA Past Psychological History: Anxiety, Depression Additional Psychological History / Comment(s): (end of 2019) Smoking Status: Never smoker Past Alcohol Use History: None Reported Additional Past Alcohol Use History / Comment(s): Patient is a lifelong nonsmoker, no illicit drug use, no marijuana use, no alcohol abuse. She drinks wine occasionally. Past Drug Use History: None Reported - Past Family History Father Family Medical History: Deep Vein Thrombosis (DVT) Additional Family Medical History / Comment(s): Father at age 32 from pulmonary embolism. Mother Family Medical History: Cancer Additional Family Medical History / Comment(s): Mother in her late 80s from breast cancer and also had dementia. Brother(s) Family Medical History: Cancer, Deep Vein Thrombosis (DVT) Additional Family Medical History / Comment(s): Patient had 2 brothers that have passed one from myocardial infarction and one from pulmonary embolism. 2 brothers are alive and one has lung cancer, one brother is alive with a brain aneurysm and CVA. Medications and Allergies Home Medications Medication Instructions Recorded Confirmed Type Calcium Carb-Vit D 500Mg-200Un 1 tab PO DAILY 01/05/14 06/04/20 History [Oscal 500+D] allopurinoL [Zyloprim] 100 mg PO DAILY 01/05/14 06/04/20 History atenoloL [Tenormin] 50 mg PO HS 01/05/14 06/04/20 History Levothyroxine Sodium [Synthroid] 12.5 mcg PO DAILY 03/16/14 06/04/20 History Zolpidem [Ambien] 5 mg PO HS PRN 03/16/14 06/04/20 History Omeprazole [PriLOSEC] See Taper PO DIRECTED 03/08/20 06/04/20 History rOPINIRole HCL [Requip] 4 mg PO TID PRN 03/16/20 06/04/20 History Ipratropium [place] 0.06%Nasal 2 spray EA NOSTRIL BID 04/15/20 06/04/20 History [Atrovent Nasal 0.06%] Apixaban [Eliquis] 5 mg PO BID tab 04/22/20 06/04/20 Rx methocarbamoL [Robaxin] 750 mg PO QID PRN tab 04/22/20 06/04/20 Rx Acetaminophen-Codeine 300-30mg 1 tab PO TID PRN 06/04/20 06/04/20 History [Tylenol w/codeine #3] FLUoxetine HCL [PROzac] 40 mg PO DAILY 06/04/20 06/04/20 History Gabapentin [Neurontin] 300 mg PO TID 06/04/20 06/04/20 History Glyxambi (Unknown Strength) 1 tab PO DAILY 06/04/20 06/04/20 History polyethylene glycoL 3350 [Miralax] 17 gm PO DAILY PRN 06/04/20 06/04/20 History Allergies Allergy/AdvReac Type Severity Reaction Status Date / Time adhesive Allergy red skin, Verified 06/04/20 20:39 blisters cefaclor [From Ceclor] Allergy Rash/Hives Verified 06/04/20 20:39 ciprofloxacin [From Cipro] Allergy Rash/Hives Verified 06/04/20 20:39 ciprofloxacin HCl Allergy Rash/Hives Verified 06/04/20 20:39 [From Cipro] hydromorphone HCl Allergy Anaphylaxis Verified 06/04/20 20:39 [From Dilaudid] Penicillins Allergy Rash/Hives Verified 06/04/20 20:39 sulfamethoxazole AdvReac Abdominal Verified 06/04/20 20:39 [From Bactrim] Pain trimethoprim [From Bactrim] AdvReac Abdominal Verified 11 20:39 Pain Physical Examination Osteopathic Statement: *. No significant issues noted on an osteopathic structural exam other than those noted in the History and Physical/Consult. GEN: AOX3, NAD VSS Inspection: No erythema or ecchymosis or edema. No fluctuance. Incision is clean dry and healed. Palpation: Minimal tenderness to palpation over the previous incision site. Minimal tenderness to palpation over the lower lumbar spine. No changes since office visit previously. Motor: 5/5 shoulder abd/EF/EE/WF/intrinsics patient is generally weak due to age and ailments 5/5 DF/PF/EHL/FHL/HF/KE/KF except for right lower extremity where she has 3 out of 5 strength in dorsiflexion and EHL which is much improved since surgery. Reflexes: 2/4 DTR all upper and LE Sensation intact to light touch in C5-T1 as well as L2-S1 distribution Franklin's: Negative bilaterally Clonus: None Babinski: Negative bilaterally Incision: CDI Results Computed tomography scan of the lumbar spine was reviewed and compared to previous computed tomography scan which was postoperative. While there is some bone resorption at the T12-L1 interspace where there is an interbody placed do not feel that there is a fracture of L1. This is simply bone remodeling. All screws and hardware are in the same position as they were previously. There is no interval change. Hardware in the lower lumbar spine has not changed and there is no fractures or dislocations noted here. There is significant bony overgrowth which is noted specifically at L4 5 and L5-S1 which is likely causing most of her symptomatology. Previously we discussed doing a larger surgery on her but due to the fact that she has had DVT and PE which was very recent this was not able to be performed. She understood this. - Labs Labs: Abnormal Lab Results - Last 24 Hours (Table) 06/04/20 06/04/20 06/05/20 Range/Units 18:44 18:44 06:35 RDW 16.5 H (11.5-15.5) % Lymphocytes # 0.7 L (1.0-4.8) k/uL Chloride 109 H (98-107) mmol/L Carbon Dioxide 21 L (22-30) mmol/L Glucose 165 H (74-99) mg/dL POC Glucose (mg/dL) 127 H (75-99) mg/dL H & H 06/04/20 Range/Units 18:44 Hgb 12.2 (11.4-16.0) gm/dL Hct 39.0 (34.0-46.0) % Result Diagrams: 06/04/20 18:44 06/04/20 18:44 Assessment and Plan Assessment: 1. Low back pain 2. Stable postoperative changes T12 L2 fusion with interbody fusion T12-L1. No new fractures. 3. Complex medical patient Plan: I discussed with Pretty her findings in her pain. All of her pain she states is in her low back and this is likely related to the previous surgeries that she had donated. She does have stenosis down at these levels but as we discussed prior to the surgery that she had previously this surgery that she would need would be too extensive for her to undergo. She does have some numbness and tingling that goes into her right lower extremity along with weakness however this is distal weakness and this is likely far removed from the surgical field that was most recent. She has a L5 radiculopathy at this time. I discussed with her that we could explore doing transforaminal injections into this area and when she follows up with me in office in one week we will discuss this. At this time there is no acute operative intervention to be offered to her. Would recommend pain control and increasing her pain medications from Tylenol 3 to [place] 5. I did up her gabapentin dose to 300 mg twice a day followed by 600 mg daily at bedtime I would recommend starting steroids. I put her on prednisone 5 mg daily at this time. She can be placed on a taper once she leaves the hospital. She may follow up with me in 1 week in the office.
[2020-06-05] MEDS: methocarbamoL 750 MG TAB PO PRN ×2 (08:28→19:30)
[2020-06-05] MEDS: GABAPENTIN 300 MG CAP PO SCH ×2 (08:28→12:24)
[2020-06-05] MEDS ORDERED: APIXABAN 5 MG TAB PO SCH (09:00)
[2020-06-05] MEDS ORDERED: predniSONE 5 MG TAB PO SCH (09:00)
[2020-06-05] MEDS ORDERED: polyethylene glycoL 3350 17 GM POWD.PACK PO PRN (09:00)
[2020-06-05] MEDS ORDERED: methocarbamoL 750 MG TAB PO PRN (09:00)
[2020-06-05] MEDS: dexAMETHasone 4 MG TAB PO SCH ×2 (11:24→19:29)
[2020-06-05 11:51] LABS: Glucose,Whole Blood 147 mg/dL (75-99)
--- NOTE | 2020-06-05 12:33 | P.HPIM ---
History of Present Illness H&P Date: 06/05/20 HISTORY OF PRESENT ILLNESS This is a 80-year-old female one of Dr. Rocha patient with past medical history of type 2 diabetes, non-Hodgkin's lymphoma [place] [address] Monaco and follows with Dr. Aranda status post chemotherapy and radiation therapy, TIA 5 years ago, hypertension, hyperlipidemia, hypertension, hypothyroidism, restless leg syndrome, recurrent depression, and osteoarthritis who has been treated for lower back pain post multiple lower back surgery and epidural injection with pain management at [facility], previous admission for acute GI bleed and acute blood loss anemia status post EGD and colonoscopy which revealed antral gastritis, area of ulceration, nonbleeding, in the distal transverse colon, pulmonary embolism and left lower leg DVT diagnosed 03/08/2020 on eliquis. She recently underwent revision T12-L2 fusion and decompression in in March. She was in [facility] for subacute rehab and was recently discharged approximately one week ago. Patient presents with complaints of lower back pain with radiation down bilateral legs. She's been placed on the observation unit and seen by orthopedic spine with the following changes made: Added prednisone 5 mg daily, increase gabapentin, change Tylenol No. 3 to [place]. We will add in physical therapy and monitor for pain control and if improved by tomorrow, discharge home. REVIEW OF SYSTEMS Constitutional: No fever, no chills, no night sweats. No weight change. Reports weakness, reports fatigue denies lethargy. No daytime sleepiness. EENT: No headache. No blurred vision or double vision, no loss of vision. No loss of Hearing, no ringing in the ears, Reports dizziness. No nasal drainage or congestion. No epistaxis. No sore throat. Lungs: Denies shortness of breath, cough, no sputum production. No wheezing. Cardiovascular: No chest pain, no left lower extremity edema. No palpitations. No paroxysmal nocturnal dyspnea. No orthopnea. No lightheadedness or dizziness. No syncopal episodes. Abdominal: No abdominal pain. No nausea, vomiting. No diarrhea. No constipation. No bloody or tarry stools.. No loss of appetite. Genitourinary: No dysuria, increased frequency, urgency. No urinary retention. Reports incontinence, loss of bladder control Musculoskeletal: No myalgias. Reports muscle weakness, reports gait dysfuncti on, reports 2 falls. Reports back pain. No neck pain. Integumentary: No wounds, no lesions. No rash or pruritus. No unusual bruising. No change in hair or nails. Neurologic: No aphasia. No facial droop. No change in mentation. No head injury. No headache. No paralysis. No paresthesia. Psychiatric: No depression. No anxiety. No mood swings. Endocrine: No abnormal blood sugars. SOCIAL HISTORY Patient is a lifelong nonsmoker. No alcohol use, marijuana use, illicit drug use. 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 Patient lives alone and is independent, drives. Granddaughter has been staying with her since she was discharged from [facility]. FAMILY HISTORY Mother in her late 80s from breast cancer and dementia. Father at age 32 from pulmonary embolism and DVT. Patient has 2 brothers and a past, one from myocardial infarction and one from pulmonary embolism. 2 brothers are alive and one has lung cancer and one living brother has a brain aneurysm and CVA. Patient has 5 biological children with no major medical problems. PHYSICAL EXAMINATION Gen: This is A 80-year-old female. Patient is resting bed appears to be comfortable and in no acute distress. No respiratory distress is noted. HEENT: Head is atraumatic, normocephalic. Pupils equal, round. Sclerae is anicteric. NECK: Supple. No JVD. No lymphadenopathy. No thyromegaly. LUNGS: Clear to auscultation. No wheezes or rhonchi. No intercostal retractions. HEART: Regular rate and rhythm. No murmur. ABDOMEN: Soft. Bowel sounds are present. No masses. No tenderness. BACK: Surgical wound is healed. No drainage, erythema. No deformity noted. EXTREMITIES: No pedal edema. No calf tenderness. Dorsalis pedis palpable bilaterally. Left foot drop. NEUROLOGICAL: Patient is awake, alert and oriented x3. Cranial nerves 2 through 12 are grossly intact. ASSESSMENT AND PLAN 1. T12-L1 severe spondylosis, severe canal stenosis and impending conus syndrome s/p revision T12-L2 fusion and decompression. Patient has been seen by orthopedic spine with recommendations for epidural injections in the office, steroids, increase gabapentin and [place]. We will change prednisone to dexametha sone. Plan to have evaluation by PT and OT for safety at home. Probable discharge home tomorrow if pain is controlled. 2. Right lower lobe pulmonary embolism. Eliquis 5 mg twice daily. 3. Diabetes mellitus type 2. Hemoglobin A1c in November was 6.8. Patient will be on NovoLog scale before meals and at bedtime. 4. Non-Hodgkin's lymphoma [place] [address] Monaco and follows with Dr. Aranda, in remission. 5. History of TIA with no deficits. 6. History of GI bleed secondary to colon ulcer in November 2019 without recurrence. Continue Protonix. 7. Hypertension. Hold amlodipine 5 mg daily, continue atenolol 50 mg twice daily. 8. Hypothyroidism. Continue levothyroxine 12.5 g daily. 9. Seasonal ALLERGIES. Continue Singulair 10 mg at bedtime. 10. Recurrent depression. Continue Prozac 30 mg daily. 11. Chronic gout. Continue allopurinol 100 mg daily. 12. Hyperlipidemia. Patient is not currently on statin. 13. Restless leg syndrome. Continue Requip. 14. GERD and GI prophylaxis. Protonix Patient placed as an observation status. Discharge plan: Probably home tomorrow. Impression and plan of care have been directed as dictated by the signing physician. Karen Quintero nurse practitioner acting as scribe for signing physician. Past Medical History Past Medical History: Cancer, Diabetes Mellitus, Deep Vein Thrombosis (DVT), GERD/Reflux, Hyperlipidemia, Hypertension, Osteoarthritis (OA), Pulmonary Embolus (PE), Syncope Additional Past Medical History / Comment(s): TIA X2, SYNCOPE in 2013, VARICOSE VEINS, GOUT, LYMPHOMA (HX OF CHEMO & RADIATION 1977,1982 & 1993) History of Any Multi-Drug Resistant Organisms: None Reported Past Surgical History: Back Surgery, Cholecystectomy, Hysterectomy, Joint Replacement, Orthopedic Surgery Additional Past Surgical History / Comment(s): RIGHT HIP REPAIR, LEFT KNEE REP LACEMENT, HAND & FOOT SURG, BREAST & AXILLARY BX, TUMOR IN THROAT REMOVED., CERVICAL FUSION, 02-07-15 LUMBAR LAMINECTOMY,DECOMPRESSION-FUSION L1-L2., right knee replaced 07-31-19 Past Anesthesia/Blood Transfusion Reactions: No Reported Reaction Additional Past Anesthesia/Blood Transfusion Reaction / Comment(s): CLAUSTROPHOBIA Past Psychological History: Anxiety, Depression Additional Psychological History / Comment(s): (end of 2019) Smoking Status: Never smoker Past Alcohol Use History: None Reported Additional Past Alcohol Use History / Comment(s): Patient is a lifelong nonsmoker, no illicit drug use, no marijuana use, no alcohol abuse. She drinks wine occasionally. Past Drug Use History: None Reported - Past Family History Father Family Medical History: Deep Vein Thrombosis (DVT) Additional Family Medical History / Comment(s): Father at age 32 from pulmonary embolism. Mother Family Medical History: Cancer Additional Family Medical History / Comment(s): Mother in her late 80s from breast cancer and also had dementia. Brother(s) Family Medical History: Cancer, Deep Vein Thrombosis (DVT) Additional Family Medical History / Comment(s): Patient had 2 brothers that have passed one from myocardial infarction and one from pulmonary embolism. 2 brothers are alive and one has lung cancer, one brother is alive with a brain aneurysm and CVA. Medications and Allergies Home Medications Medication Instructions Recorded Confirmed Type Calcium Carb-Vit D 500Mg-200Un 1 tab PO DAILY 01/05/14 06/04/20 History [Oscal 500+D] allopurinoL [Zyloprim] 100 mg PO DAILY 01/05/14 06/04/20 History atenoloL [Tenormin] 50 mg PO HS 01/05/14 06/04/20 History Levothyroxine Sodium [Synthroid] 12.5 mcg PO DAILY 03/16/14 06/04/20 History Zolpidem [Ambien] 5 mg PO HS PRN 03/16/14 06/04/20 History Omeprazole [PriLOSEC] See Taper PO DIRECTED 03/08/20 06/04/20 History rOPINIRole HCL [Requip] 4 mg PO TID PRN 03/16/20 06/04/20 History Ipratropium [place] 0.06%Nasal 2 spray EA NOSTRIL BID 04/15/20 06/04/20 History [Atrovent Nasal 0.06%] Apixaban [Eliquis] 5 mg PO BID tab 04/22/20 06/04/20 Rx methocarbamoL [Robaxin] 750 mg PO QID PRN tab 04/22/20 06/04/20 Rx Acetaminophen-Codeine 300-30mg 1 tab PO TID PRN 06/04/20 06/04/20 History [Tylenol w/codeine #3] FLUoxetine HCL [PROzac] 40 mg PO DAILY 06/04/20 06/04/20 History Gabapentin [Neurontin] 300 mg PO TID 06/04/20 06/04/20 History Glyxambi (Unknown Strength) 1 tab PO DAILY 06/04/20 06/04/20 History polyethylene glycoL 3350 [Miralax] 17 gm PO DAILY PRN 06/04/20 06/04/20 History Allergies Allergy/AdvReac Type Severity Reaction Status Date / Time adhesive Allergy red skin, Verified 06/04/20 20:39 blisters cefaclor [From Ceclor] Allergy Rash/Hives Verified 06/04/20 20:39 ciprofloxacin [From Cipro] Allergy Rash/Hives Verified 06/04/20 20:39 ciprofloxacin HCl Allergy Rash/Hives Verified 06/04/20 20:39 [From Cipro] hydromorphone HCl Allergy Anaphylaxis Verified 06/04/20 20:39 [From Dilaudid] Penicillins Allergy Rash/Hives Verified 06/04/20 20:39 sulfamethoxazole AdvReac Abdominal Verified 06/04/20 20:39 [From Bactrim] Pain trimethoprim [From Bactrim] AdvReac Abdominal Verified 06/04/20 20:39 Pain Physical Exam Vitals: Vital Signs Temp Pulse Pulse Pulse Resp BP BP 06/05/20 08:28 97.8 F 89 14 06/05/20 03:00 89 17 06/05/20 02:45 98.3 F 89 16 149/70 06/05/20 00:52 98.1 F 86 14 186/94 06/05/20 00:39 98.3 F 93 20 135/99 06/05/20 00:21 98.1 F 86 17 186/94 06/04/20 16:46 98.3 F 93 20 135/99 BP Pulse Ox 06/05/20 08:28 100/66 94 L 06/05/20 03:00 06/05/20 02:45 95 06/05/20 00:52 98 06/05/20 00:39 99 06/05/20 00:21 98 06/04/20 16:46 99 Intake and Output 06/04/20 06/05/20 06/05/20 22:59 06:59 14:59 Intake Total 200 Balance 200 Intake: Oral 200 Other: Voiding Method Toilet Diaper # Voids 1 Weight 60.781 kg 60.781 kg Results CBC & Chem 7: 06/04/20 18:44 06/04/20 18:44 Labs: Abnormal Lab Results - Last 24 Hours (Table) 06/04/20 06/04/20 06/05/20 Range/Units 18:44 18:44 06:35 RDW 16.5 H (11.5-15.5) % Lymphocytes # 0.7 L (1.0-4.8) k/uL Chloride 109 H (98-107) mmol/L Carbon Dioxide 21 L (22-30) mmol/L Glucose 165 H (74-99) mg/dL POC Glucose (mg/dL) 127 H (75-99) mg/dL Thrombosis Risk Factor Assmnt - Choose All That Apply Any of the Below Risk Factors Present?: No Other Risk Factors: Yes Each Risk Factor Represents 3 Points: Age 75 years or older Other congenital or acquired thrombophilia - If yes, enter type in comment: No Thrombosis Risk Factor Assessment Total Risk Factor Score: 3 Thrombosis Risk Factor Assessment Level: Moderate Risk
[2020-06-05] MEDS: INSULIN ASPART (NovoLOG) 100 UNIT/ML VIAL SQ SCH ×3 (13:35→20:33)
[2020-06-05] MEDS: HYDROcodone/APAP 5-325MG 1 EACH TAB PO PRN ×2 (16:32→21:25)
[2020-06-05 17:03] LABS: Glucose,Whole Blood 232 mg/dL (75-99)
[2020-06-05 20:30] LABS: Glucose,Whole Blood 264 mg/dL (75-99)
[2020-06-05] MEDS ORDERED: atenoloL 50 MG TAB PO SCH (21:00)
[2020-06-06] MEDS: LEVOTHYROXINE 25 MCG TAB PO SCH (06:17)
[2020-06-06 06:22] LABS: Glucose,Whole Blood 153 mg/dL (75-99)
[2020-06-06] MEDS: INSULIN ASPART (NovoLOG) 100 UNIT/ML VIAL SQ SCH (07:37)
[2020-06-06] MEDS: PANTOPRAZOLE 40 MG TABLET PO SCH (07:37)
[2020-06-06] MEDS: HYDROcodone/APAP 5-325MG 1 EACH TAB PO PRN (08:02)
[2020-06-06] MEDS: dexAMETHasone 4 MG TAB PO SCH (08:03)
[2020-06-06] MEDS: allopurinoL 100 MG TAB PO SCH (08:03)
[2020-06-06] MEDS: GABAPENTIN 300 MG CAP PO SCH (08:03)
[2020-06-06] MEDS: CALCIUM CARB-VIT D 500MG-200UN 1 EACH TAB PO SCH (08:04)
[2020-06-06] MEDS: APIXABAN 5 MG TAB PO SCH (08:05)
[2020-06-06] MEDS: FLUoxetine HCL 20 MG CAP PO SCH (08:05)
[2020-06-06 09:44] VITALS: BP 168/95; PULSE 79; RESP 16; TEMP 98.2
[2020-06-06] MEDS: GLYXAMBI PO SCH (11:26)
--- NOTE | 2020-06-06 12:36 | P.DS ---
Providers Date of admission: 06/04/20 23:44 Expected date of discharge: 06/06/20 Attending physician: Carlos Enrique Farooq Consults: 06/04/20 20:04 Consult Physician Stat Consulting Provider: Claudio Plummer Consult Reason/Comments: L1 compression fx Do you want consulting provider notified?: Yes, Notify in am Primary care physician: [facility] Course: HISTORY OF PRESENT ILLNESS This is a 80-year-old female one of Dr. Rocha patient with past medical history of type 2 diabetes, non-Hodgkin's lymphoma [place] [address] Monaco and follows with Dr. Aranda status post chemotherapy and radiation therapy, TIA 5 years ago, hypertension, hyperlipidemia, hypertension, hypothyroidism, restless leg syndrome, recurrent depression, and osteoarthritis who has been treated for lower back pain post multiple lower back surgery and epidural injection with pain management at [facility], previous admission for acute GI bleed and acute blood loss anemia status post EGD and colonoscopy which revealed antral gastritis, area of ulceration, nonbleeding, in the distal transverse colon, pulmonary embolism and left lower leg DVT diagnosed 03/08/2020 on eliquis. She recently underwent revision T12-L2 fusion and decompression in in March. She was in [facility] for subacute rehab and was recently discharged approximately one week ago. Patient presents with complaints of lower back pain with radiation down bilateral legs. She's been placed on the observation unit and seen by orthopedic spine with the following changes made: Added prednisone 5 mg daily, increase gabapentin, change Tylenol No. 3 to [place]. We will add in physical therapy and monitor for pain control and if improved by tomorrow, discharge home. 06/06: Patient worked with physical therapy and did well walking with walker. Her pain is better controlled today. We will plan for her to be discharged home today and if patient does need [place] for home, she may contact Dr. Rocha's office. For now she will be discharged home on Tylenol No. 3, adjusted dose of gabapentin and steroids. She has been afebrile, heart rate 79, blood pressure 160/95, pulse ox 96% on room air. Patient will be discharged in stable condition. ASSESSMENT AND PLAN 1. T12-L1 severe spondylosis, severe canal stenosis and impending conus syndrome s/p revision T12-L2 fusion and decompression with ongoing low back pain and radiculopathy. 2. Right lower lobe pulmonary embolism. 3. Diabetes mellitus type 2. 4. Non-Hodgkin's lymphoma [place] [address] Monaco and follows with Dr. Aranda, in remission. 5. History of TIA with no deficits. 6. History of GI bleed secondary to colon ulcer in November 2019 without recurrence. 7. Hypertension. 8. Hypothyroidism. 9. Seasonal ALLERGIES. 10. Recurrent depression. 11. Chronic gout. 12. Hyperlipidemia. 13. Restless leg syndrome. 14. GERD. Discharge plan:home Impression and plan of care have been directed as dictated by the signing physician. Karen Quintero nurse practitioner acting as scribe for signing physician. Patient Condition at Discharge: Good Plan - Discharge Summary Discharge Rx Participant: No New Discharge Prescriptions: New dexAMETHasone [Hexadrol] 4 mg PO BID #20 tab Continue allopurinoL [Zyloprim] 100 mg PO DAILY atenoloL [Tenormin] 50 mg PO HS Calcium Carb-Vit D 500Mg-200Un [Oscal 500+D] 1 tab PO DAILY Zolpidem [Ambien] 5 mg PO HS PRN PRN Reason: Insomnia Levothyroxine Sodium [Synthroid] 12.5 mcg PO DAILY Omeprazole [PriLOSEC] See Taper PO DIRECTED rOPINIRole HCL [Requip] 4 mg PO TID PRN PRN Reason: RLS Ipratropium [place] 0.06%Nasal [Atrovent Nasal 0.06%] 2 spray EA NOSTRIL BID methocarbamoL [Robaxin] 750 mg PO QID PRN tab PRN Reason: Muscle Spasm Apixaban [Eliquis] 5 mg PO BID tab FLUoxetine HCL [PROzac] 40 mg PO DAILY Acetaminophen-Codeine 300-30mg [Tylenol w/codeine #3] 1 tab PO TID PRN PRN Reason: Pain polyethylene glycoL 3350 [Miralax] 17 gm PO DAILY PRN PRN Reason: Constipation Empagliflozin/Linagliptin [Glyxambi 25 mg-5 mg Tablet] 1 tab PO DAILY Gabapentin [Neurontin] 300 mg PO TID #0 Discharge Medication List Calcium Carb-Vit D 500Mg-200Un [Oscal 500+D] 1 tab PO DAILY 01/05/14 [History] allopurinoL [Zyloprim] 100 mg PO DAILY 01/05/14 [History] atenoloL [Tenormin] 50 mg PO HS 01/05/14 [History] Levothyroxine Sodium [Synthroid] 12.5 mcg PO DAILY 03/16/14 [History] Zolpidem [Ambien] 5 mg PO HS PRN 03/16/14 [History] Omeprazole [PriLOSEC] See Taper PO DIRECTED 03/08/20 [History] rOPINIRole HCL [Requip] 4 mg PO TID PRN 03/16/20 [History] Ipratropium [place] 0.06%Nasal [Atrovent Nasal 0.06%] 2 spray EA NOSTRIL BID 04/15/20 [History] Apixaban [Eliquis] 5 mg PO BID tab 04/22/20 [Rx] methocarbamoL [Robaxin] 750 mg PO QID PRN tab 04/22/20 [Rx] Acetaminophen-Codeine 300-30mg [Tylenol w/codeine #3] 1 tab PO TID PRN 06/04/20 [History] FLUoxetine HCL [PROzac] 40 mg PO DAILY 06/04/20 [History] polyethylene glycoL 3350 [Miralax] 17 gm PO DAILY PRN 06/04/20 [History] Empagliflozin/Linagliptin [Glyxambi 25 mg-5 mg Tablet] 1 tab PO DAILY 06/06/20 [History] Gabapentin [Neurontin] 300 mg PO TID #0 06/06/20 [Rx] dexAMETHasone [Hexadrol] 4 mg PO BID #20 tab 06/06/20 [Rx] Follow up Appointment(s)/Referral(s): Alvarez Rocha DO [Primary Care Provider] - 06/11/20 9:15 am Claudio Plummer DO [Family Provider] - 06/14/20 9:50 am United Liu [NON-STAFF] - As Needed Patient Instructions/Handouts: Chronic Back Pain (GEN) Discharge Disposition: HOME SELF-CARE
== END 2020-06-06 11:59 | disposition home or self-care (01) ==
LOC: EC 15:46 → 1SOBS 23:44
PROVIDERS: ADMIT Internal Medicine Geriatric Medicine; ATTEND Internal Medicine Geriatric Medicine
DX: M47.815 Spondylosis without myelopathy or radiculopathy, thoracolumbar region (principal); M48.05 Spinal stenosis, thoracolumbar region; E11.9 Type 2 diabetes mellitus without complications; K21.9 Gastro-esophageal reflux disease without esophagitis; E78.5 Hyperlipidemia, unspecified; I10 Essential (primary) hypertension; M19.90 Unspecified osteoarthritis, unspecified site; R55 Syncope and collapse; I26.99 Other pulmonary embolism without acute cor pulmonale; I83.90 Asymptomatic varicose veins of unspecified lower extremity; R20.2 Paresthesia of skin; M48.061 Spinal stenosis, lumbar region without neurogenic claudication; E03.9 Hypothyroidism, unspecified; F33.9 Major depressive disorder, recurrent, unspecified; K63.3 Ulcer of intestine; J30.2 Other seasonal allergic rhinitis; M1A.9XX0 Chronic gout, unspecified, without tophus (tophi); G25.81 Restless legs syndrome; K59.00 Constipation, unspecified; G47.00 Insomnia, unspecified; F40.240 Claustrophobia; Z90.710 Acquired absence of both cervix and uterus; Z98.1 Arthrodesis status; Z96.652 Presence of left artificial knee joint; Z79.899 Other long term (current) drug therapy; Z79.890 Hormone replacement therapy; Z91.048 Other nonmedicinal substance allergy status; Z88.1 Allergy status to other antibiotic agents; Z88.0 Allergy status to penicillin; Z88.2 Allergy status to sulfonamides; Z86.718 Personal history of other venous thrombosis and embolism; Z92.21 Personal history of antineoplastic chemotherapy; Z92.3 Personal history of irradiation; Z86.73 Personal history of transient ischemic attack (TIA), and cerebral infarction without residual deficits; Z85.72 Personal history of non-Hodgkin lymphomas; Z90.49 Acquired absence of other specified parts of digestive tract; Z79.01 Long term (current) use of anticoagulants; Z79.891 Long term (current) use of opiate analgesic; Z98.890 Other specified postprocedural states; Z82.49 Family history of ischemic heart disease and other diseases of the circulatory system; Z81.8 Family history of other mental and behavioral disorders; Z80.3 Family history of malignant neoplasm of breast; Z80.1 Family history of malignant neoplasm of trachea, bronchus and lung; Z82.3 Family history of stroke; Z83.6 Family history of other diseases of the respiratory system
CPT/HCPCS: 96376; 96372; 96374; 99284; 36415; 97161; 80053; 85025; 72131; G0378 ×2; J8540 ×2; J2270 ×2; J7512

== ENCOUNTER 2020-06-08 21:36 | Emergency (ER) | payer MEDICARE, BC ==
[2020-06-08] MEDS ORDERED: SODIUM CHLORIDE 0.9% 1,000 ML IV ONE (22:50)
--- NOTE | 2020-06-08 22:50 | ED ---
General Adult HPI - General Chief complaint: Fall Stated complaint: Weakness, fall Time Seen by Provider: 06/08/20 22:17 Source: patient, EMS Mode of arrival: EMS Limitations: no limitations - History of Present Illness Initial comments: Pretty is a 80yo F who presents to the ER today for evaluation of generalized weakness. Patient was recently admitted to the hospital for pain management due to back pain with sciatica. She has been home for a few days, she is on steroids. She reports that her blood glucose has been in the high 200s. She states that this afternoon she began feeling generalized weakness and decided she would go to bed early. She reports that she went to her bedroom to take her evening meds. She stats she was walking at the foot of her bed when she felt weak all over and fell to the ground. She did not lose consciousness, she did not hit her head or injure herself. She states she just feels weak and tired. She denies chest pain, palpitations, shortness of breath, nausea, vomiting, fever or change in bowel or bladder habits. - Related Data Home Medications Medication Instructions Recorded Confirmed Calcium Carb-Vit D 500Mg-200Un 1 tab PO DAILY 01/05/14 06/04/20 [Oscal 500+D] allopurinoL [Zyloprim] 100 mg PO DAILY 01/05/14 06/04/20 atenoloL [Tenormin] 50 mg PO HS 01/05/14 06/04/20 Levothyroxine Sodium [Synthroid] 12.5 mcg PO DAILY 03/16/14 06/04/20 Zolpidem [Ambien] 5 mg PO HS PRN 03/16/14 06/04/20 Omeprazole [PriLOSEC] See Taper PO DIRECTED 03/08/20 06/04/20 rOPINIRole HCL [Requip] 4 mg PO TID PRN 03/16/20 06/04/20 Ipratropium [place] 0.06%Nasal 2 spray EA NOSTRIL BID 04/15/20 06/04/20 [Atrovent Nasal 0.06%] Acetaminophen-Codeine 300-30mg 1 tab PO TID PRN 06/04/20 06/04/20 [Tylenol w/codeine #3] FLUoxetine HCL [PROzac] 40 mg PO DAILY 06/04/20 06/04/20 polyethylene glycoL 3350 [Miralax] 17 gm PO DAILY PRN 06/04/20 06/04/20 Empagliflozin/Linagliptin 1 tab PO DAILY 06/06/20 06/06/20 [Glyxambi 25 mg-5 mg Tablet] Previous Rx's Medication Instructions Recorded Apixaban [Eliquis] 5 mg PO BID tab 04/22/20 methocarbamoL [Robaxin] 750 mg PO QID PRN tab 04/22/20 Gabapentin [Neurontin] 300 mg PO TID #0 06/06/20 dexAMETHasone [Hexadrol] 4 mg PO BID #20 tab 06/06/20 Allergies Allergy/AdvReac Type Severity Reaction Status Date / Time adhesive Allergy red skin, Verified 06/04/20 20:39 blisters cefaclor [From Ceclor] Allergy Rash/Hives Verified 06/04/20 20:39 ciprofloxacin [From Cipro] Allergy Rash/Hives Verified 06/04/20 20:39 ciprofloxacin HCl Allergy Rash/Hives Verified 06/04/20 20:39 [From Cipro] hydromorphone HCl Allergy Anaphylaxis Verified 06/04/20 20:39 [From Dilaudid] Penicillins Allergy Rash/Hives Verified 06/04/20 20:39 sulfamethoxazole AdvReac Abdominal Verified 06/04/20 20:39 [From Bactrim] Pain trimethoprim [From Bactrim] AdvReac Abdominal Verified 06/04/20 20:39 Pain Review of Systems ROS Statement: Those systems with pertinent positive or pertinent negative responses have been documented in the HPI. ROS Other: All systems not noted in ROS Statement are negative. Past Medical History Past Medical History: Cancer, Diabetes Mellitus, Deep Vein Thrombosis (DVT), GERD/Reflux, Hyperlipidemia, Hypertension, Osteoarthritis (OA), Pulmonary Embolus (PE), Syncope Additional Past Medical History / Comment(s): TIA X2, SYNCOPE in 2013, VARICOSE VEINS, GOUT, LYMPHOMA (HX OF CHEMO & RADIATION 1977,1982 & 1993) History of Any Multi-Drug Resistant Organisms: None Reported Past Surgical History: Back Surgery, Cholecystectomy, Hysterectomy, Joint Replacement, Orthopedic Surgery Additional Past Surgical History / Comment(s): RIGHT HIP REPAIR, LEFT KNEE REPLACEMENT, HAND & FOOT SURG, BREAST & AXILLARY BX, TUMOR IN THROAT REMOVED., CERVICAL FUSION, 7-16-15 LUMBAR LAMINECTOMY,DECOMPRESSION-FUSION L1-L2., right knee replaced 07-31-19 Past Anesthesia/Blood Transfusion Reactions: No Reported Reaction Additional Past Anesthesia/Blood Transfusion Reaction / Comment(s): CLAUSTROPHOBIA Past Psychological History: Anxiety, Depression Smoking Status: Never smoker Past Alcohol Use History: None Reported Past Drug Use History: None Reported - Past Family History Father Family Medical History: Deep Vein Thrombosis (DVT) Additional Family Medical History / Comment(s): Father at age 32 from pulmonary embolism. Mother Family Medical History: Cancer Additional Family Medical History / Comment(s): Mother in her late 80s from breast cancer and also had dementia. Brother(s) Family Medical History: Cancer, Deep Vein Thrombosis (DVT) Additional Family Medical History / Comment(s): Patient had 2 brothers that have passed one from myocardial infarction and one from pulmonary embolism. 2 brothers are alive and one has lung cancer, one brother is alive with a brain aneurysm and CVA. General Exam - General Exam Comments Initial Comments: Physical Exam GENERAL: Patient is well-developed and well-nourished. Patient is nontoxic and well- hydrated and is in no distress. HENT: Normocephalic, Atraumatic. EYES: PERRL, EOMI PULMONARY: Unlabored respirations. No audible rales rhonchi or wheezing was noted. CARDIOVASCULAR: There is a regular rate and rhythm without any murmurs gallops or rubs. ABDOMEN: Soft and nontender with normal bowel sounds. SKIN: Skin is clear with no lesions or rashes and otherwise unremarkable. : Deferred NEUROLOGIC: Patient is alert and oriented x3. Moving all extremities spontaneously MUSCULOSKELETAL: Normal extremities with adequate strength and full range of motion. No lower extremity swelling or edema. No calf tenderness. PSYCHIATRIC: Normal psychiatric evaluation. Limitations: no limitations Medical Decision Making - Medical Decision Making the patient was seen and evaluated history is obtained from the patient This is 80-year-old female who presented to the ER for evaluation of generalized weakness, she has normal vital signs no focal complaints CBC/CMP with hyperglycemia, no significant abnormalities, UA with no evidence of UTI, glucose noted Patients vitals remained stable throughout ER stay Labs discussed with patient and daughter at bedside who are agreeable to plan for discharge home Patient requesting pain medication as she is on chronic tylenol #3, advised her and daughter that she should likely not take her medication until she is in bed for the night due to her complaint of already feeling weak. All questions pertaining to care were discussed with patient, patient discharged home in stable condition. - Lab Data Result diagrams: 06/08/20 23:15 06/08/20 23:15 Lab Results 06/08/20 06/08/20 06/08/20 Range/Units 23:15 23:15 23:15 WBC 7.5 (3.8-10.6) k/uL RBC 4.19 (3.80-5.40) m/uL Hgb 12.3 (11.4-16.0) gm/dL Hct 37.4 (34.0-46.0) % MCV 89.1 (80.0-100.0) fL MCH 29.5 (25.0-35.0) pg MCHC 33.1 (31.0-37.0) g/dL RDW 16.4 H (11.5-15.5) % Plt Count 198 (150-450) k/uL MPV 6.9 Neutrophils % 81 % Lymphocytes % 6 % Monocytes % 10 % Eosinophils % 1 % Basophils % 1 % Neutrophils # 6.1 (1.3-7.7) k/uL Lymphocytes # 0.5 L (1.0-4.8) k/uL Monocytes # 0.8 (0-1.0) k/uL Eosinophils # 0.0 (0-0.7) k/uL Basophils # 0.1 (0-0.2) k/uL Hypochromasia Slight Anisocytosis Slight Sodium 142 (137-145) mmol/L Potassium 3.6 (3.5-5.1) mmol/L Chloride 110 H (98-107) mmol/L Carbon Dioxide 22 (22-30) mmol/L Anion Gap 10 mmol/L BUN 18 H (7-17) mg/dL Creatinine 0.78 (0.52-1.04) mg/dL Est GFR (CKD-EPI)AfAm 85 (>60 ml/min/1.73 sqM) Est GFR (CKD-EPI)NonAf 73 (>60 ml/min/1.73 sqM) Glucose 221 H (74-99) mg/dL Calcium 9.7 (8.4-10.2) mg/dL Total Bilirubin 0.5 (0.2-1.3) mg/dL AST 22 (14-36) U/L ALT 13 (4-34) U/L Alkaline Phosphatase 87 (38-126) U/L Total Protein 6.7 (6.3-8.2) g/dL Albumin 4.1 (3.5-5.0) g/dL Urine Color Light Yellow Urine Appearance Clear (Clear) Urine pH 5.5 (5.0-8.0) Ur Specific [place] 1.036 H (1.001-1.035) Urine Protein Negative (Negative) Urine Glucose (UA) 4+ H (Negative) Urine Ketones Negative (Negative) Urine Blood Small H (Negative) Urine Nitrite Negative (Negative) Urine Bilirubin Negative (Negative) Urine Urobilinogen <2.0 (<2.0) mg/dL Ur Leukocyte Esterase Negative (Negative) Urine RBC 7 H (0-5) /hpf Urine WBC 1 (0-5) /hpf Ur Squamous Epith Cells 1 (0-4) /hpf Urine Mucus Rare H (None) /hpf Disposition Clinical Impression: Generalized weakness, Fall Disposition: HOME SELF-CARE Condition: Stable Additional Instructions: As we discussed labs today were mostly normal, sugar was elevated I recommend you get plenty of rest and stay hydrated Follow up with your primary care doctor Return to the ER if you have any worsening Is patient prescribed a controlled substance at d/c from ED?: No Referrals: Alvarez Rocha DO [Primary Care Provider] - 1-2 days
[2020-06-08 23:22] LABS: Anisocytosis Slight; Basophils # (A) 0.1 k/uL (0-0.2); Basophils % (A) 1 %; Eosinophils % (A) 1 %; HCT 37.4 % (34.0-46.0); HGB 12.3 gm/dL (11.4-16.0); Hypochromasia Slight; Lymphocytes # (A) 0.5 k/uL (1.0-4.8); Lymphocytes % (A) 6 %; MCH 29.5 pg (25.0-35.0); MCHC 33.1 g/dL (31.0-37.0); MCV 89.1 fL (80.0-100.0); Mean Platelet Volume 6.9; Monocytes # (A) 0.8 k/uL (0-1.0); Monocytes % (A) 10 %; Neutrophils # (A) 6.1 k/uL (1.3-7.7); Neutrophils % (A) 81 %; Platelet Count 198 k/uL (150-450); RBC 4.19 m/uL (3.80-5.40); RDW 16.4 % (11.5-15.5); WBC 7.5 k/uL (3.8-10.6)
[2020-06-08 23:31] LABS: Albumin 4.1 g/dL (3.5-5.0); Calcium 9.7 mg/dL (8.4-10.2); Potassium 3.6 mmol/L (3.5-5.1); Total Bilirubin 0.5 mg/dL (0.2-1.3); Total Protein 6.7 g/dL (6.3-8.2)
[2020-06-09 00:08] LABS: Appearance,Urine Clear (Clear); Bilirubin,Urine Negative (Negative); Blood,Urine Small (Negative); Color,Urine Light Yellow; Glucose,Urine (UA) 4+ (Negative); Ketones,Urine Negative (Negative); Leukocyte Esterase,Urine Negative (Negative); Mucus,Urine Rare /hpf; Nitrite,Urine Negative (Negative); PH, Urine 5.5 (5.0-8.0); Protein,Urine Negative (Negative); RBC,Urine 7 /hpf (0-5); Specific Gravity,Urine 1.036 (1.001-1.035); Squamous Epithelial Cell,Urine 1 /hpf (0-4); Urobilinogen,Urine <2.0 mg/dL (<2.0); WBC,Urine 1 /hpf (0-5)
[2020-06-09 01:33] VITALS: BP 109/67; PULSE 96; RESP 16
== END 2020-06-09 00:40 | disposition home or self-care (01) ==
LOC: EC 21:36
DX: R53.1 Weakness (principal); M54.9 Dorsalgia, unspecified; F41.9 Anxiety disorder, unspecified; F32.9 Major depressive disorder, single episode, unspecified; M10.9 Gout, unspecified; K21.9 Gastro-esophageal reflux disease without esophagitis; E78.5 Hyperlipidemia, unspecified; I10 Essential (primary) hypertension; E11.65 Type 2 diabetes mellitus with hyperglycemia; Z88.0 Allergy status to penicillin; Z88.1 Allergy status to other antibiotic agents; Z88.2 Allergy status to sulfonamides; Z88.5 Allergy status to narcotic agent; Z88.8 Allergy status to other drugs, medicaments and biological substances; Z91.048 Other nonmedicinal substance allergy status; Z79.899 Other long term (current) drug therapy; Z79.84 Long term (current) use of oral hypoglycemic drugs; Z98.1 Arthrodesis status; Z80.3 Family history of malignant neoplasm of breast; Z80.1 Family history of malignant neoplasm of trachea, bronchus and lung; Z80.8 Family history of malignant neoplasm of other organs or systems; Z86.73 Personal history of transient ischemic attack (TIA), and cerebral infarction without residual deficits; Z85.72 Personal history of non-Hodgkin lymphomas; Z92.21 Personal history of antineoplastic chemotherapy; Z90.710 Acquired absence of both cervix and uterus; Z90.49 Acquired absence of other specified parts of digestive tract; Z96.652 Presence of left artificial knee joint; Z92.3 Personal history of irradiation; W18.30XA Fall on same level, unspecified, initial encounter; Y92.003 Bedroom of unspecified non-institutional (private) residence as the place of occurrence of the external cause
CPT/HCPCS: 36415; 80053; 81001; 85025; 93005; 96360; 99285

== ENCOUNTER 2020-07-06 21:55 | Emergency (ER) | payer MEDICARE, BC ==
[2020-07-06 22:18] VITALS: TEMP 98
[2020-07-06] MEDS ORDERED: ACETAMINOPHEN TAB 325 MG TAB PO STA (22:59)
--- NOTE | 2020-07-06 23:20 | CT ---
EXAMINATION TYPE: CT brain cspine wo con DATE OF EXAM: 07/06/2020 COMPARISON: 04/18/2020 CT brain HISTORY: Fall Headache. Neck pain CT DLP: 1342.2 mGycm Automated exposure control for dose reduction was used. There is mild cerebral atrophy. There is no mass effect nor midline shift. There is no sign of intrac ranial hemorrhage. Calvarium is intact. There is multilevel cervical spine fusion surgery from C3 to C7 vertebra. There is spondylotic change at C7-T1. There is spondylotic hypertrophic degenerative disc change at C3. I see no cervical spine fracture. The skull base is intact. There is some mucosal thickening in the right mastoid air cells. IMPRESSION: Cerebral atrophy. No acute intracranial abnormality. There is some mild right-sided mastoiditis uncha nged. Multilevel cervical spine fusion surgery. No acute bony abnormality. No fracture seen.
[2020-07-06 23:21] LABS: African American GFR (CKD) >90 (>60 ml/min/1.73 sqM); Anion Gap 7 mmol/L; Blood Urea Nitrogen 26 mg/dL (7-17); Calcium 9.8 mg/dL (8.4-10.2); Carbon Dioxide 25 mmol/L (22-30); Chloride 104 mmol/L (98-107); Glucose 168 mg/dL (74-99); Non-African American GFR(CKD) >90 (>60 ml/min/1.73 sqM); Potassium 4.3 mmol/L (3.5-5.1); Sodium 136 mmol/L (137-145)
--- NOTE | 2020-07-06 23:23 | XR ---
EXAMINATION TYPE: XR Hip Bilateral and AP pelvis DATE OF EXAM: 07/06/2020 COMPARISON: Right hip 11/24/2019 HISTORY: Pain. Fall. TECHNIQUE: 5 views FINDINGS: The pelvic ring is intact. Sacroiliac joints are intact. There is plate with screws and tra nsverse screw fixing the proximal right femur. This appears unchanged compared to old exam. The proxi mal left femur and hip joint are intact. I see no evidence of hip fracture. IMPRESSION: No acute abnormality of the pelvis and both hips. Right hip are unchanged compared to old exam.
[2020-07-06 23:26] LABS: Anisocytosis Slight; HCT 40.1 % (34.0-46.0); HGB 12.8 gm/dL (11.4-16.0); MCH 28.2 pg (25.0-35.0); MCV 88.2 fL (80.0-100.0); Mean Platelet Volume 7.2; Platelet Count 194 k/uL (150-450); RBC 4.54 m/uL (3.80-5.40); RDW 17.3 % (11.5-15.5); WBC 8.1 k/uL (3.8-10.6)
[2020-07-06 23:37] VITALS: BP 153/99; PULSE 70; RESP 19
--- NOTE | 2020-07-06 23:42 | ED ---
General Adult HPI - General Chief complaint: Fall Stated complaint: Fall Time Seen by Provider: 07/06/20 21:59 Source: EMS, RN notes reviewed, old records reviewed Mode of arrival: EMS - History of Present Illness Initial comments: 80-year-old female patient to ED for evaluation of mechanical fall. Patient reports that she was walking to her kitchen with her walker when she lost her balance slipping and falling backwards. Patient landed on her gluteal region and fell and hit the back of her head. She is anticoagulated on eliquis. She reports some pain in her gluteal region and her hips as well as on the back of her head when she hit the ground. No loss of consciousness. Systemic: Pt denies fatigue, fever/chills, rash. Pt denies weakness, night sweats, weight loss. Neuro: Pt denies headache, visual disturbances, syncope or pre-syncope. HEENT: Pt denies ocular discharge or irritation, otalgia, rhinorrhea, pharyngitis or notable lymphadenopathy. Cardiopulmonary: Pt denies chest pain, SOB, heart palpitations, dyspnea on exertion. Abdominal/GI: Pt denies abdominal pain, n/v/d. : Pt denies dysuria, burning w/ urination, frequency/urgency. Denies new onset urinary or bowel incontinence. MSK: Pt denies myalgia, loss of strength or function in extremities. Neuro: Pt denies new onset weakness, paresthesias. - Related Data Home Medications Medication Instructions Recorded Confirmed Calcium Carb-Vit D 500Mg-200Un 1 tab PO DAILY 01/05/14 07/03/20 [Oscal 500+D] allopurinoL [Zyloprim] 100 mg PO DAILY 01/05/14 07/03/20 atenoloL [Tenormin] 50 mg PO HS 01/05/14 07/03/20 Levothyroxine Sodium [Synthroid] 12.5 mcg PO DAILY 03/16/14 07/03/20 Zolpidem [Ambien] 5 mg PO HS 03/16/14 07/03/20 Omeprazole [PriLOSEC] 40 mg PO QAM 03/08/20 07/03/20 rOPINIRole HCL [Requip] 4 mg PO TID 03/16/20 07/03/20 Acetaminophen-Codeine 300-30mg 1 tab PO BID PRN 06/04/20 07/03/20 [Tylenol w/codeine #3] polyethylene glycoL 3350 [Miralax] 17 gm PO DAILY PRN 06/04/20 07/03/20 Alpha Lipoic Acid 600 mg PO QAM 07/03/20 07/03/20 DULoxetine HCL [Cymbalta] 60 mg PO DAILY 07/03/20 07/03/20 Empagliflozin/Linagliptin 1 each PO QAM 07/03/20 07/03/20 [Glyxambi 25 mg-5 mg Tablet] Gabapentin [Neurontin] 300 mg PO BID 07/03/20 07/03/20 Gabapentin [Neurontin] 600 mg PO HS 07/03/20 07/03/20 Ipratropium [place] 0.06%Nasal 2 spray EA NOSTRIL BID 07/03/20 07/03/20 [Atrovent Nasal 0.06%] S-Adenosylmethionine Sul Tosyl 1,000 mg PO QAM 07/03/20 07/03/20 [Nuno-E] dexAMETHasone [Hexadrol] 4 mg PO BID 07/03/20 07/03/20 Previous Rx's Medication Instructions Recorded Apixaban [Eliquis] 5 mg PO BID tab 04/22/20 methocarbamoL [Robaxin] 750 mg PO QID PRN tab 04/22/20 Allergies Allergy/AdvReac Type Severity Reaction Status Date / Time adhesive Allergy red skin, Verified 07/06/20 22:18 blisters cefaclor [From Ceclor] Allergy Rash/Hives Verified 07/06/20 22:18 ciprofloxacin [From Cipro] Allergy Rash/Hives Verified 07/06/20 22:18 ciprofloxacin HCl Allergy Rash/Hives Verified 07/06/20 22:18 [From Cipro] hydromorphone HCl Allergy Anaphylaxis Verified 07/06/20 22:18 [From Dilaudid] Penicillins Allergy Rash/Hives Verified 07/06/20 22:18 sulfamethoxazole AdvReac Abdominal Verified 07/06/20 22:18 [From Bactrim] Pain trimethoprim [From Bactrim] AdvReac Abdominal Verified 07/06/20 22:18 Pain Review of Systems ROS Statement: Those systems with pertinent positive or pertinent negative responses have been documented in the HPI. ROS Other: All systems not noted in ROS Statement are negative. 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, VARICOSE VEINS, GOUT, LYMPHOMA (HX OF CHEMO & RADIATION 1977,1982 & 1993), hx migraines, hx ulcer, constipation, "red spots all over", History of Any Multi-Drug Resistant Organisms: None Reported Past Surgical History: Appendectomy, Back Surgery, Breast Surgery, Cholecystectomy, Hysterectomy, Joint Replacement, Orthopedic Surgery, Tonsillectomy Additional Past Surgical History / Comment(s): RIGHT HIP REPAIR, german KNEE REPLACEMENT, rods german thumbs and rt 3rd toe, BREAST & AXILLARY BX, TUMOR IN THROAT REMOVED., CERVICAL FUSION, LUMBAR LAMINECTOMY,DECOMPRESSION-FUSION L1- L2., recent back surgery for nerve and tendons, german cataracts Past Anesthesia/Blood Transfusion Reactions: No Reported Reaction Additional Past Anesthesia/Blood Transfusion Reaction / Comment(s): CLAUSTROPHOBIA Past Psychological History: Anxiety, Depression Smoking Status: Never smoker Past Alcohol Use History: None Reported Past Drug Use History: None Reported - Past Family History Father Family Medical History: Deep Vein Thrombosis (DVT), Pulmonary Embolus Additional Family Medical History / Comment(s): Father at age 32 from pulmonary embolism. Mother Family Medical History: Cancer Additional Family Medical History / Comment(s): . Brother(s) Family Medical History: Cancer, Deep Vein Thrombosis (DVT) Additional Family Medical History / Comment(s): Patient had 2 brothers that have passed one from myocardial infarction and one from pulmonary embolism. 2 brothers are alive and one has lung cancer, one brother is alive with a brain aneurysm and CVA. General Exam - General Exam Comments Initial Comments: Constitutional: NAD, AOX3, Pt has pleasant affect. HEENT: NC/AT, trachea midline, neck supple, no lymphadenopathy. External ears appear normal, without discharge. TM pale millard bilaterally. No mastoid tenderness. Mucous membranes moist. Eyes PERRLA, EOM intact. There is no scleral icterus. No pallor noted. Cardiopulmonary: RRR, no murmurs, rubs or gallops, no JVD noted. Lungs CTAB in anterior and posterior trotter. No peripheral edema. Abdominal exam: Abdomen soft and non-distended. Abdomen non-tender to palpation in all 4 quadrants. Bowel sounds active in LLQ. No hepatosplenomegaly. No ecchymosis Neuro: CN II-XII intact. No nuchal rigidity. No [place] eyes, no holt sign, no hemotympanum. No cervical, thoracic or lumbar spinal tenderness. MSK: No tenderness to palpation in all 4 extremities. Sensation intact in upper and lower extremities. Full active ROM in upper and lower extremities. Course Vital Signs 07/06/20 07/06/20 22:14 23:36 Temperature 98 F Pulse Rate 99 70 Respiratory 18 19 Rate Blood Pressure 159/99 153/99 O2 Sat by Pulse 99 98 Oximetry Medical Decision Making - Medical Decision Making 80-year-old female patient to ED for evaluation of fall. Physical exam is negat lexie for acute pathology. Laboratory investigations are unremarkable. CT brain and C-spine negative for acute process. Plain film of hips is also negative for acute process. Patient pain has resolved she'll be discharged with outpatient follow-up and retrun precautions. Case discussed with Dr. Le. - Lab Data Result diagrams: 07/06/20 20:43 07/06/20 20:43 Lab Results 07/06/20 07/06/20 Range/Units 20:43 20:43 WBC 8.1 (3.8-10.6) k/uL RBC 4.54 (3.80-5.40) m/uL Hgb 12.8 (11.4-16.0) gm/dL Hct 40.1 (34.0-46.0) % MCV 88.2 (80.0-100.0) fL MCH 28.2 (25.0-35.0) pg MCHC 32.0 (31.0-37.0) g/dL RDW 17.3 H (11.5-15.5) % Plt Count 194 (150-450) k/uL MPV 7.2 Neutrophils % (Manual) 67 % Band Neuts % (Manual) 4 % Lymphocytes % (Manual) 12 % Monocytes % (Manual) 9 % Metamyelocytes % 5 % Myelocytes % 5 % Neutrophils # (Manual) 5.70 (1.3-7.7) k/uL Lymphocytes # (Manual) 0.97 L (1.0-4.8) k/uL Monocytes # (Manual) 0.73 (0-1.0) k/uL Metamyelocytes # (Man) 0.41 H (0) k/uL Myelocytes # (Manual) 0.41 H (0) k/uL Nucleated RBCs 0 (0-0) /100 WBC Manual Slide Review Performed Toxic Granulation Present Toxic Vacuolation Present Anisocytosis Slight Sodium 136 L (137-145) mmol/L Potassium 4.3 (3.5-5.1) mmol/L Chloride 104 (98-107) mmol/L Carbon Dioxide 25 (22-30) mmol/L Anion Gap 7 mmol/L BUN 26 H (7-17) mg/dL Creatinine 0.52 (0.52-1.04) mg/dL Est GFR (CKD-EPI)AfAm >90 (>60 ml/min/1.73 sqM) Est GFR (CKD-EPI)NonAf >90 (>60 ml/min/1.73 sqM) Glucose 168 H (74-99) mg/dL Calcium 9.8 (8.4-10.2) mg/dL Disposition Clinical Impression: Fall Disposition: HOME SELF-CARE Condition: Stable Instructions (If sedation given, give patient instructions): Fall Prevention (ED) Additional Instructions: Follow up with PCP tomorrow. Return to ED with any worsening symptoms. Is patient prescribed a controlled substance at d/c from ED?: No Referrals: Alvarez Rocha DO [Primary Care Provider] - 1-2 days
[2020-07-06 23:58] LABS: Band Neutrophils % 4 %; Lymphocytes # (M) 0.97 k/uL (1.0-4.8); Metamyelocytes # (M) 0.41 k/uL (0); Metamyelocytes % 5 %; Monocytes # (M) 0.73 k/uL (0-1.0); Myelocytes # (M) 0.41 k/uL (0); Myelocytes % 5 %; Neutrophils % (M) 67 %; Nucleated Red Blood Cells 0 /100 WBC (0-0); Total Cells Counted 200; Toxic Granulation Present; Toxic Vacuolation Present
== END 2020-07-06 23:57 | disposition home or self-care (01) ==
LOC: EC 21:55 → SUPCPDRO 21:55 → EC 23:57
DX: S09.90XA Unspecified injury of head, initial encounter (principal); M25.552 Pain in left hip; M25.551 Pain in right hip; F41.9 Anxiety disorder, unspecified; F32.9 Major depressive disorder, single episode, unspecified; Z88.0 Allergy status to penicillin; Z88.1 Allergy status to other antibiotic agents; Z88.5 Allergy status to narcotic agent; Z88.2 Allergy status to sulfonamides; K21.9 Gastro-esophageal reflux disease without esophagitis; E11.36 Type 2 diabetes mellitus with diabetic cataract; E78.5 Hyperlipidemia, unspecified; I10 Essential (primary) hypertension; M10.9 Gout, unspecified; Z79.890 Hormone replacement therapy; Z79.84 Long term (current) use of oral hypoglycemic drugs; Z79.899 Other long term (current) drug therapy; Z79.01 Long term (current) use of anticoagulants; Z86.718 Personal history of other venous thrombosis and embolism; Z98.1 Arthrodesis status; Z86.73 Personal history of transient ischemic attack (TIA), and cerebral infarction without residual deficits; Z92.21 Personal history of antineoplastic chemotherapy; Z92.3 Personal history of irradiation; Z86.711 Personal history of pulmonary embolism; Z80.1 Family history of malignant neoplasm of trachea, bronchus and lung; W01.10XA Fall on same level from slipping, tripping and stumbling with subsequent striking against unspecified object, initial encounter; Y93.01 Activity, walking, marching and hiking; Y92.000 Kitchen of unspecified non-institutional (private) residence as the place of occurrence of the external cause
CPT/HCPCS: 36415; 70450; 72125; 73521; 80048; 85025; 99285

== ENCOUNTER 2020-07-09 15:22 | Observation (INO) | payer MEDICARE, BC ==
[2020-07-09] MEDS ORDERED: HYDROcodone/APAP 5-325MG 1 EACH TAB PO STA (15:53)
--- NOTE | 2020-07-09 17:03 | XR ---
EXAMINATION TYPE: XR knee complete RT DATE OF EXAM: 07/09/2020 CLINICAL HISTORY: Pain after fall injury. TECHNIQUE: Three views of the right knee are obtained. COMPARISON: Right knee x-ray November 24, 2019 FINDINGS: [place] osseous structures remain demineralized. Metallic hardware from total right knee ar throplasty is redemonstrated. Small curvilinear ossific density from the medial condyle distal femur is again seen. No new acute fracture or dislocation. [employer] prosthesis base are redemonstrated on lat eral view. Overlying clothing material distal femoral level is noted. IMPRESSION: There is no new acute fracture or dislocation in the right knee.
--- NOTE | 2020-07-09 17:05 | XR ---
EXAMINATION TYPE: XR Hip RT and AP Pelvis DATE OF EXAM: 07/09/2020 COMPARISON: Pelvic and bilateral hip x-ray 3 days ago. HISTORY: Pelvic and right hip pain after falling. TECHNIQUE: A single AP view of the pelvis is obtained. Two views of the right hip are obtained. FINDINGS: [place] osseous structures remain demineralized. Postsurgical change with ossific fusion in the visualized portion of the lower lumbar spine is redemonstrated. There is no acute fracture/dislo cation evident in the pelvis. The sacroiliac joints appear symmetric and unremarkable. Pubic symphys is remains intact. Moderate axial joint space loss in both hips is redemonstrated. The overlying soft tissue appears unremarkable. Two views of right hip show no acute fracture or dislocation. Internal fixating device with lateral p late and 4 transverse distal fixating screws along with larger femoral neck fixating screw through he aled fracture right proximal femur is redemonstrated. No new fracture is seen. Overlying soft tissue is unremarkable. IMPRESSION: There is no acute fracture or dislocation in the pelvis or right hip. No significant ray nge from prior.
[2020-07-09] MEDS ORDERED: MORPHINE SULFATE 4 MG/ML SYRINGE IVP STA (18:09)
--- NOTE | 2020-07-09 18:22 | ED ---
Fall HPI - General Source: patient, RN notes reviewed, old records reviewed Mode of arrival: EMS <Yulisa Grady - Last Filed: 07/09/20 19:33> <Luis Pino - Last Filed: 07/09/20 19:36> - General Chief Complaint: Fall Stated Complaint: fall Time Seen by Provider: 07/09/20 15:32 - History of Present Illness Initial Comments: Is a 72-year-old female presents to return today for mechanical fall. She reports that she was walking with a walker and trying to measure a rug with a tape measure. She reports that she fell hitting her right knee and right hip. She seen in emergency department 4 days ago for similar falls. She denies any h ead or neck injury. She does take L Marie. She is alert and oriented 4. She has history of right leg weakness due to chronic back problems and has had back surgery by Dr. Plummer.. She denies any specific back pain. She states that she feels like she cannot move or lift her right leg. Patient states that she also received injections in her back for chronic leg pain today. She denies any fevers or chills. Denies dysuria. She does report that she has had difficulty a home alone. Daughter states that they were thinking about having her live with her other daughter full-time she is unable to care for self at home and has had multiple falls. (Yulisa Grady) - Related Data Home Medications Medication Instructions Recorded Confirmed Calcium Carb-Vit D 500Mg-200Un 1 tab PO DAILY 01/05/14 07/03/20 [Oscal 500+D] allopurinoL [Zyloprim] 100 mg PO DAILY 01/05/14 07/03/20 atenoloL [Tenormin] 50 mg PO HS 01/05/14 07/03/20 Levothyroxine Sodium [Synthroid] 12.5 mcg PO DAILY 03/16/14 07/03/20 Zolpidem [Ambien] 5 mg PO HS 03/16/14 07/03/20 Omeprazole [PriLOSEC] 40 mg PO QAM 03/08/20 07/03/20 rOPINIRole HCL [Requip] 4 mg PO TID 03/16/20 07/03/20 Acetaminophen-Codeine 300-30mg 1 tab PO BID PRN 06/04/20 07/03/20 [Tylenol w/codeine #3] polyethylene glycoL 3350 [Miralax] 17 gm PO DAILY PRN 06/04/20 07/03/20 Alpha Lipoic Acid 600 mg PO QAM 07/03/20 07/03/20 DULoxetine HCL [Cymbalta] 60 mg PO DAILY 07/03/20 07/03/20 Empagliflozin/Linagliptin 1 each PO QAM 07/03/20 07/03/20 [Glyxambi 25 mg-5 mg Tablet] Gabapentin [Neurontin] 300 mg PO BID 07/03/20 07/03/20 Gabapentin [Neurontin] 600 mg PO HS 07/03/20 07/03/20 Ipratropium [place] 0.06%Nasal 2 spray EA NOSTRIL BID 07/03/20 07/03/20 [Atrovent Nasal 0.06%] S-Adenosylmethionine Sul Tosyl 1,000 mg PO QAM 07/03/20 07/03/20 [Nuno-E] dexAMETHasone [Hexadrol] 4 mg PO BID 07/03/20 07/03/20 Previous Rx's Medication Instructions Recorded Apixaban [Eliquis] 5 mg PO BID tab 04/22/20 methocarbamoL [Robaxin] 750 mg PO QID PRN tab 04/22/20 Allergies Allergy/AdvReac Type Severity Reaction Status Date / Time adhesive Allergy red skin, Verified 07/09/20 15:38 blisters cefaclor [From Ceclor] Allergy Rash/Hives Verified 07/09/20 15:38 ciprofloxacin [From Cipro] Allergy Rash/Hives Verified 07/09/20 15:38 ciprofloxacin HCl Allergy Rash/Hives Verified 07/09/20 15:38 [From Cipro] hydromorphone HCl Allergy Anaphylaxis Verified 07/09/20 15:38 [From Dilaudid] Penicillins Allergy Rash/Hives Verified 07/09/20 15:38 sulfamethoxazole AdvReac Abdominal Verified 07/09/20 15:38 [From Bactrim] Pain trimethoprim [From Bactrim] AdvReac Abdominal Verified 07/09/20 15:38 Pain Review of Systems ROS Other: All systems not noted in ROS Statement are negative. <Yulisa Grady - Last Filed: 07/09/20 19:33> ROS Other: All systems not noted in ROS Statement are negative. <Luis Pino - Last Filed: 07/09/20 19:36> ROS Statement: Those systems with pertinent positive or pertinent negative responses have been documented in the HPI. 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, V ARICOSE VEINS, GOUT, LYMPHOMA (HX OF CHEMO & RADIATION 1977,1982 & 1993), hx migraines, hx ulcer, constipation, "red spots all over", History of Any Multi-Drug Resistant Organisms: None Reported Past Surgical History: Appendectomy, Back Surgery, Breast Surgery, Cholecystectomy, Hysterectomy, Joint Replacement, Orthopedic Surgery, Tonsillectomy Additional Past Surgical History / Comment(s): RIGHT HIP REPAIR, german KNEE REPLA CEMENT, rods german thumbs and rt 3rd toe, BREAST & AXILLARY BX, TUMOR IN THROAT REMOVED., CERVICAL FUSION, LUMBAR LAMINECTOMY,DECOMPRESSION-FUSION L1-L2., recent back surgery for nerve and tendons, german cataracts Past Anesthesia/Blood Transfusion Reactions: No Reported Reaction Additional Past Anesthesia/Blood Transfusion Reaction / Comment(s): CLAUST ROPHOBIA Past Psychological History: Anxiety, Depression Smoking Status: Never smoker Past Alcohol Use History: None Reported Past Drug Use History: None Reported - Past Family History Father Family Medical History: Deep Vein Thrombosis (DVT), Pulmonary Embolus Additional Family Medical History / Comment(s): Father at age 32 from pulmonary embolism. Mother Family Medical History: Cancer Additional Family Medical History / Comment(s): . Brother(s) Family Medical History: Cancer, Deep Vein Thrombosis (DVT) Additional Family Medical History / Comment(s): Patient had 2 brothers that have passed one from myocardial infarction and one from pulmonary embolism. 2 brothers are alive and one has lung cancer, one brother is alive with a brain aneurysm and CVA. <Yulisa Grady - Last Filed: 07/09/20 19:33> General Exam General appearance: alert, in no apparent distress Head exam: Present: atraumatic, normocephalic, normal inspection Eye exam: Present: normal appearance, PERRL, EOMI. Absent: scleral icterus, conjunctival injection, periorbital swelling ENT exam: Present: normal exam, mucous membranes moist Neck exam: Present: normal inspection. Absent: tenderness, meningismus, lymphadenopathy Respiratory exam: Present: normal lung sounds bilaterally. Absent: respiratory distress, wheezes, rales, rhonchi, stridor Cardiovascular Exam: Present: regular rate, normal rhythm, normal heart sounds. Absent: systolic murmur, diastolic murmur, rubs, gallop, clicks GI/Abdominal exam: Present: soft, normal bowel sounds. Absent: distended, tenderness, guarding, rebound, rigid Extremities exam: Present: normal inspection, full ROM, normal capillary refill, other (Patient reports pain on right knee. Evidence of previous knee repl acement. Pain with flexion and extension. No significant bruising.). Absent: tenderness, pedal edema, joint swelling, calf tenderness Back exam: Present: normal inspection Neurological exam: Present: alert, oriented X3, CN II-XII intact Psychiatric exam: Present: normal affect, normal mood Skin exam: Present: warm, dry, intact, normal color. Absent: rash <Yulisa Grady - Last Filed: 07/09/20 19:33> - General Exam Comments Initial Comments: 72-year-old female. Alert and oriented. (Yulisa Grady) Course <Yulisa Grady - Last Filed: 07/09/20 19:33> <Luis Pino - Last Filed: 07/09/20 19:36> Vital Signs 07/09/20 07/09/20 15:27 17:02 Temperature 97.4 F L Pulse Rate 99 98 Respiratory 20 18 Rate Blood Pressure 114/76 105/81 O2 Sat by Pulse 98 Oximetry - Reevaluation(s) Reevaluation #1: 07/09/20 18:31 Exam blood Patient she did need assistance with 1 with a walker and she cannot have this at home. Family states they're anxious about sending her home with s he has no hospital bed as well as no one to watch her tonight. (Yulisa Grady) 07/09/20 19:35 A superficial blood pressure she did evaluate this case patient does present with complaints of frequent falls and failure to thrive he does demonstrate evidence of dehydration. Patient will be admitted for placement and further evaluation Dr. Farooq to see the patient in the emergency department. (Luis Pino) Medical Decision Making - Lab Data Result diagrams: 07/09/20 18:10 07/09/20 18:10 - Radiology Data Radiology results: report reviewed <Yulisa Grady - Last Filed: 07/09/20 19:33> - Lab Data Result diagrams: 07/09/20 18:10 07/09/20 18:10 <Luis Pino - Last Filed: 07/09/20 19:36> - Medical Decision Making 80-year-old female presents emergency room. Mechanical fall with weakness to her right leg and complains of pain of movement of her right hip and knee. She x-rays reviewed and show no fracture. She was able to ambulate but did report being significant assistance with her walker. She and her family are concerned about taking her home at this time she needs more help. They plan to move her into their own home but needs some time to transport hospital bed into one of her daughter's home for full-time care. At this time Patient was afraid needs lab results and x-ray findings. I discussed case with Dr. Pino and then discussed case with Dr. Farooq who will accept admission for observation until p atient's family can establish plan for long-term care for Patient. (Yulisa Grady) - Lab Data Lab Results 07/09/20 07/09/20 07/09/20 Range/Units 18:10 18:10 18:10 WBC 7.8 (3.8-10.6) k/uL RBC 4.62 (3.80-5.40) m/uL Hgb 13.0 (11.4-16.0) gm/dL Hct 40.7 (34.0-46.0) % MCV 88.1 (80.0-100.0) fL MCH 28.1 (25.0-35.0) pg MCHC 31.9 (31.0-37.0) g/dL RDW 17.2 H (11.5-15.5) % Plt Count 165 (150-450) k/uL MPV 7.1 Neutrophils % (Manual) 76 % Band Neuts % (Manual) 8 % Lymphocytes % (Manual) 11 % Monocytes % (Manual) 5 % Neutrophils # (Manual) 6.50 (1.3-7.7) k/uL Lymphocytes # (Manual) 0.86 L (1.0-4.8) k/uL Monocytes # (Manual) 0.39 (0-1.0) k/uL Nucleated RBCs 0 (0-0) /100 WBC Manual Slide Review Performed Anisocytosis Slight PT 9.8 (9.0-12.0) sec INR 0.9 (<1.2) APTT 23.1 (22.0-30.0) sec Sodium 138 (137-145) mmol/L Potassium 4.4 (3.5-5.1) mmol/L Chloride 106 (98-107) mmol/L Carbon Dioxide 26 (22-30) mmol/L Anion Gap 6 mmol/L BUN 37 H (7-17) mg/dL Creatinine 0.67 (0.52-1.04) mg/dL Est GFR (CKD-EPI)AfAm >90 (>60 ml/min/1.73 sqM) Est GFR (CKD-EPI)NonAf 85 (>60 ml/min/1.73 sqM) Glucose 199 H (74-99) mg/dL Calcium 9.9 (8.4-10.2) mg/dL Total Bilirubin 0.5 (0.2-1.3) mg/dL AST 22 (14-36) U/L ALT 21 (4-34) U/L Alkaline Phosphatase 98 (38-126) U/L Total Protein 6.9 (6.3-8.2) g/dL Albumin 4.3 (3.5-5.0) g/dL TSH 0.852 (0.465-4.680) mIU/L Urine Color Urine Appearance (Clear) Urine pH (5.0-8.0) Ur Specific [place] (1.001-1.035) Urine Protein (Negative) Urine Glucose (UA) (Negative) Urine Ketones (Negative) Urine Blood (Negative) Urine Nitrite (Negative) Urine Bilirubin (Negative) Urine Urobilinogen (<2.0) mg/dL Ur Leukocyte Esterase (Negative) Urine RBC (0-5) /hpf Urine WBC (0-5) /hpf Ur Squamous Epith Cells (0-4) /hpf Amorphous Sediment (None) /hpf Hyaline Casts (0-2) /lpf Urine Mucus (None) /hpf 12/15/20 Range/Units 18:18 WBC (3.8-10.6) k/uL RBC (3.80-5.40) m/uL Hgb (11.4-16.0) gm/dL Hct (34.0-46.0) % MCV (80.0-100.0) fL MCH (25.0-35.0) pg MCHC (31.0-37.0) g/dL RDW (11.5-15.5) % Plt Count (150-450) k/uL MPV Neutrophils % (Manual) % Band Neuts % (Manual) % Lymphocytes % (Manual) % Monocytes % (Manual) % Neutrophils # (Manual) (1.3-7.7) k/uL Lymphocytes # (Manual) (1.0-4.8) k/uL Monocytes # (Manual) (0-1.0) k/uL Nucleated RBCs (0-0) /100 WBC Manual Slide Review Anisocytosis PT (9.0-12.0) sec INR (<1.2) APTT (22.0-30.0) sec Sodium (137-145) mmol/L Potassium (3.5-5.1) mmol/L Chloride (98-107) mmol/L Carbon Dioxide (22-30) mmol/L Anion Gap mmol/L BUN (7-17) mg/dL Creatinine (0.52-1.04) mg/dL Est GFR (CKD-EPI)AfAm (>60 ml/min/1.73 sqM) Est GFR (CKD-EPI)NonAf (>60 ml/min/1.73 sqM) Glucose (74-99) mg/dL Calcium (8.4-10.2) mg/dL Total Bilirubin (0.2-1.3) mg/dL AST (14-36) U/L ALT (4-34) U/L Alkaline Phosphatase (38-126) U/L Total Protein (6.3-8.2) g/dL Albumin (3.5-5.0) g/dL TSH (0.465-4.680) mIU/L Urine Color Yellow Urine Appearance Clear (Clear) Urine pH 5.5 (5.0-8.0) Ur Specific [place] 1.034 (1.001-1.035) Urine Protein Negative (Negative) Urine Glucose (UA) 4+ H (Negative) Urine Ketones Negative (Negative) Urine Blood Negative (Negative) Urine Nitrite Negative (Negative) Urine Bilirubin Negative (Negative) Urine Urobilinogen <2.0 (<2.0) mg/dL Ur Leukocyte Esterase Trace H (Negative) Urine RBC 1 (0-5) /hpf Urine WBC 4 (0-5) /hpf Ur Squamous Epith Cells 4 (0-4) /hpf Amorphous Sediment Rare H (None) /hpf Hyaline Casts 1 (0-2) /lpf Urine Mucus Rare H (None) /hpf - Radiology Data No fracture dislocation in the pelvis or hip. No significant change from prior. There is no acute fracture dislocation of the right knee. (Yulisa Grady) Disposition Is patient prescribed a controlled substance at d/c from ED?: No Time of Disposition: 19:34 <Yulisa Grady - Last Filed: 07/09/20 19:33> <Luis Pino - Last Filed: 07/09/20 19:36> Clinical Impression: Falls, Right leg weakness Disposition: ADMITTED IP TO THIS HOSP Condition: Stable Referrals: Alvarez Rocha DO [Primary Care Provider] - 1-2 days
[2020-07-09 18:30] LABS: Amorphous Sediment,Urine Rare /hpf; Appearance,Urine Clear (Clear); Bilirubin,Urine Negative (Negative); Blood,Urine Negative (Negative); Color,Urine Yellow; Glucose,Urine (UA) 4+ (Negative); Hyaline Casts,Urine 1 /lpf (0-2); Ketones,Urine Negative (Negative); Leukocyte Esterase,Urine Trace (Negative); Mucus,Urine Rare /hpf; Nitrite,Urine Negative (Negative); PH, Urine 5.5 (5.0-8.0); Protein,Urine Negative (Negative); RBC,Urine 1 /hpf (0-5); Specific Gravity,Urine 1.034 (1.001-1.035); Squamous Epithelial Cell,Urine 4 /hpf (0-4); Urobilinogen,Urine <2.0 mg/dL (<2.0); WBC,Urine 4 /hpf (0-5)
[2020-07-09 18:31] LABS: ALT 21 U/L (4-34); AST 22 U/L (14-36); African American GFR (CKD) >90 (>60 ml/min/1.73 sqM); Albumin 4.3 g/dL (3.5-5.0); Alkaline Phosphatase 98 U/L (38-126); Anion Gap 6 mmol/L; Blood Urea Nitrogen 37 mg/dL (7-17); Calcium 9.9 mg/dL (8.4-10.2); Carbon Dioxide 26 mmol/L (22-30); Chloride 106 mmol/L (98-107); Glucose 199 mg/dL (74-99); Non-African American GFR(CKD) 85 (>60 ml/min/1.73 sqM); Potassium 4.4 mmol/L (3.5-5.1); Sodium 138 mmol/L (137-145); Total Bilirubin 0.5 mg/dL (0.2-1.3); Total Protein 6.9 g/dL (6.3-8.2)
[2020-07-09 18:38] LABS: INR 0.9 (<1.2); Partial Thromboplastin Time 23.1 sec (22.0-30.0); Prothrombin Time 9.8 sec (9.0-12.0)
[2020-07-09 18:54] LABS: Anisocytosis Slight; HCT 40.7 % (34.0-46.0); MCH 28.1 pg (25.0-35.0); MCHC 31.9 g/dL (31.0-37.0); MCV 88.1 fL (80.0-100.0); Mean Platelet Volume 7.1; Platelet Count 165 k/uL (150-450); RBC 4.62 m/uL (3.80-5.40); RDW 17.2 % (11.5-15.5); WBC 7.8 k/uL (3.8-10.6)
[2020-07-09 19:25] LABS: Band Neutrophils % 8 %; Lymphocytes # (M) 0.86 k/uL (1.0-4.8); Monocytes # (M) 0.39 k/uL (0-1.0); Neutrophils % (M) 76 %; Nucleated Red Blood Cells 0 /100 WBC (0-0); Total Cells Counted 100
[2020-07-09] MEDS ORDERED: ACETAMINOPHEN TAB 325 MG TAB PO PRN (19:34)
[2020-07-09] MEDS ORDERED: NALOXONE 0.4 MG/ML 1 ML VIAL IV PRN (19:34)
[2020-07-09] MEDS ORDERED: KETOROLAC 15 MG/ML 1 ML VIAL IVP PRN (19:34)
[2020-07-09] MEDS ORDERED: IBUPROFEN 400 MG TAB PO PRN (19:34)
[2020-07-09] MEDS ORDERED: ONDANSETRON 4 MG/2 ML VIAL IVP PRN (19:34)
[2020-07-09] MEDS ORDERED: Acetaminophen-Codeine 300-30mg TAB PO PRN (21:41)
[2020-07-09] MEDS ORDERED: polyethylene glycoL 3350 17 GM POWD.PACK PO PRN (21:41)
[2020-07-09] MEDS ORDERED: methocarbamoL 750 MG TAB PO PRN (21:41)
[2020-07-09] MEDS: MORPHINE SULFATE 4 MG/ML SYRINGE IV PRN (22:26)
[2020-07-09] MEDS: SODIUM CHLORIDE 0.9% 1,000 ML IV SCH (22:26)
[2020-07-09] MEDS ORDERED: atenoloL 50 MG TAB PO SCH (22:38)
[2020-07-09] MEDS ORDERED: ZOLPIDEM 5 MG TAB PO SCH (22:39)
[2020-07-09] MEDS ORDERED: GABAPENTIN 300 MG CAP PO SCH (22:45)
--- NOTE | 2020-07-09 23:32 | P.HPIM ---
History of Present Illness H&P Date: 07/09/20 Chief Complaint: debility, intractable lower back pain, fall and right knee and right hip pa 80-year-old female one of Dr. Rocha Patient was history of type 2 diabetes, non-Hodgkin's lymphoma diagnosed , history of TIA, hypertension, hyperlipidemia, hypothyroidism and restless leg syndrome who had also chronic history of depression has been treated for lower back pain post multiple lower back surgery and epidural injection has been seen pain management regular basis, patient was hospitalized recently for acute GI bleed with acute blood loss anemia post EGD and colonoscopy revealed antral gastritis with area of ulceration at the time, nonbleeding in the distal transverse colon, patient had pulmonary embolism and left lower extremity DVT was diagnosed in February 2020 has been on Eliquis since, patient underwent T12 to L2 fusion and decompression in March this year ended up going to [facility] rehab and from there was transferred to [facility] for sure. This time and ended up going back home with family, patient has improved and has been living at home on her own family and her kids check on her on regular basis. Patient returned to [facility] today for mechanical fall reported that she was walking with walker trying to measure a rug with tape measurement when she fell and hit her right knee and right hip area seen [facility] department 4 days ago denies any head injury patient was taking Eliquis as an anticoagulation continue to have significant pain and discomfort in the right leg with severe weakness with the severity of her pain patient had her surgery done by Dr. Plummer and still seen by him as an outpatient. After her fall today she came to [facility] all extra came back negative patient still not able to ambulate and walk she has been living home by herself family are not stained with her mother make an arrangement for further management to posterior in their house with extra help in the meanwhile she might need physical therapy or rehab temporary until she is able to walk safe with slight independent. Review of Systems CONSTITUTIONAL: Well-developed no acute respiratory distress. EYES: No icterus sclerae, no conjunctivitis. EARS, NOSE, MOUTH, THROAT, and FACE: No sore throat, lymphadenopathy, carotid bruits or deformity. RESPIRATORY: decrease breath some bilateral with fi CARDIOVASCULAR: No CP, Palpitation, PND, Orthopnea, or angina. GASTROINTESTINAL: No Abd pain, Nausea or vomiting, no Diarrhea or constipation, No GI Bleed, no distention or masses. GENITOURINARY: Negative for Hematuria or UTI, no kidney stones. INTEGUMENT/BREAST: Negative for any muscular injury with mild osteoarthritis..significant arthritis of the right knee and hip a HEMATOLOGIC/LYMPHATIC: Negative for bleed or purpura. MUSCULOSKELTAL: Negative for Myalgia or arthralgia. NEURLOGICAL: No LOC, Sz or syncope, blurred vision dizziness or abnormality.. BEHAVIORAL/PSYCH: Negative. ENDOCRINE: Negative. 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, VARICOSE VEINS, GOUT, LYMPHOMA (HX OF CHEMO & RADIATION 1977,1982 & 1993), hx migraines, hx ulcer, constipation, "red spots all over", History of Any Multi-Drug Resistant Organisms: None Reported Past Surgical History: Appendectomy, Back Surgery, Breast Surgery, Cholecystec alysia, Hysterectomy, Joint Replacement, Orthopedic Surgery, Tonsillectomy Additional Past Surgical History / Comment(s): RIGHT HIP REPAIR, german KNEE REPLACEMENT, rods german thumbs and rt 3rd toe, BREAST & AXILLARY BX, TUMOR IN THROAT REMOVED., CERVICAL FUSION, LUMBAR LAMINECTOMY,DECOMPRESSION-FUSION L1- L2., recent back surgery for nerve and tendons, german cataracts Past Anesthesia/Blood Transfusion Reactions: No Reported Reaction Additional Past Anesthesia/Blood Transfusion Reaction / Comment(s): CLAUSTROPHOBIA Past Psychological History: Anxiety, Depression Smoking Status: Never smoker Past Alcohol Use History: None Reported Past Drug Use History: None Reported - Past Family History Father Family Medical History: Deep Vein Thrombosis (DVT), Pulmonary Embolus Additional Family Medical History / Comment(s): Father at age 32 from pulmo nary embolism. Mother Family Medical History: Cancer Additional Family Medical History / Comment(s): . Brother(s) Family Medical History: Cancer, Deep Vein Thrombosis (DVT) Additional Family Medical History / Comment(s): Patient had 2 brothers that have passed one from myocardial infarction and one from pulmonary embolism. 2 brothers are alive and one has lung cancer, one brother is alive with a brain aneurysm and CVA. Medications and Allergies Home Medications Medication Instructions Recorded Confirmed Type Calcium Carb-Vit D 500Mg-200Un 1 tab PO DAILY 01/05/14 07/09/20 History [Oscal 500+D] allopurinoL [Zyloprim] 100 mg PO DAILY 01/05/14 07/09/20 History atenoloL [Tenormin] 50 mg PO HS 01/05/14 07/09/20 History Levothyroxine Sodium [Synthroid] 12.5 mcg PO DAILY 03/16/14 07/09/20 History Zolpidem [Ambien] 5 mg PO HS 03/16/14 07/09/20 History Omeprazole [PriLOSEC] 40 mg PO QAM 03/08/20 07/09/20 History rOPINIRole HCL [Requip] 4 mg PO TID 03/16/20 07/09/20 History Apixaban [Eliquis] 5 mg PO BID tab 04/22/20 07/09/20 Rx methocarbamoL [Robaxin] 750 mg PO QID PRN tab 04/22/20 07/09/20 Rx Acetaminophen-Codeine 300-30mg 1 tab PO BID PRN 06/04/20 07/09/20 History [Tylenol w/codeine #3] polyethylene glycoL 3350 [Miralax] 17 gm PO DAILY PRN 06/04/20 07/09/20 History Alpha Lipoic Acid 600 mg PO QAM 07/03/20 07/09/20 History DULoxetine HCL [Cymbalta] 60 mg PO DAILY 07/03/20 07/09/20 History Empagliflozin/Linagliptin 1 each PO QAM 07/03/20 07/09/20 History [Glyxambi 25 mg-5 mg Tablet] Gabapentin [Neurontin] 300 mg PO BID 07/03/20 07/09/20 History Gabapentin [Neurontin] 600 mg PO HS 07/03/20 07/09/20 History Ipratropium [place] 0.06%Nasal 2 spray EA NOSTRIL BID 07/03/20 07/09/20 History [Atrovent Nasal 0.06%] S-Adenosylmethionine Sul Tosyl 1,000 mg PO QAM 07/03/20 07/09/20 History [Nuno-E] Allergies Allergy/AdvReac Type Severity Reaction Status Date / Time adhesive Allergy red skin, Verified 12/15/20 20:32 blisters cefaclor [From Ceclor] Allergy Rash/Hives Verified 07/09/20 20:32 ciprofloxacin [From Cipro] Allergy Rash/Hives Verified 07/09/20 20:32 ciprofloxacin HCl Allergy Rash/Hives Verified 07/09/20 20:32 [From Cipro] hydromorphone HCl Allergy Anaphylaxis Verified 07/09/20 20:32 [From Dilaudid] Penicillins Allergy Rash/Hives Verified 07/09/20 20:32 sulfamethoxazole AdvReac Abdominal Verified 07/09/20 20:32 [From Bactrim] Pain trimethoprim [From Bactrim] AdvReac Abdominal Verified 07/09/20 20:32 Pain Physical Exam Vitals: Vital Signs Temp Pulse Pulse Resp BP BP Pulse Ox 07/09/20 21:17 98.0 F 107 H 18 120/80 96 07/09/20 20:07 100 17 112/79 98 07/09/20 17:02 98 18 105/81 98 07/09/20 15:27 97.4 F L 99 20 114/76 Intake and Output 07/09/20 07/09/20 07/09/20 06:59 14:59 22:59 Other: Weight 62.142 kg General Appearance: Alert, cooperative, no distress, appears stated age. Neck HEENT: Supple, no lymphadenopathy, no thyroid enlargement, no carotid bruits. Lungs: Clear to auscultation without crackles or wheezes no rhonchi, no deformity. Chest Wall: Chest wall normal expansion with deep inspiration no tenderness and no deformity was found on exam, no costochondral pain or discomfort. Heart: Regular rate and rhythm, S1, S2 normal, no murmur, rub or gallop. Back: Symmetric, no curvature, ROM normal, no CVA tenderness. Abdomen: Soft, non-tender, bowel sounds active all four quadrants, no masses, no organomegaly. Extremities: Extremities normal, atraumatic, no cyanosis or edema. Pulses: 2+ and symmetric. Skin: Skin color, texture, tugor normal, no rashes or lesions. Neurologic: Alert oriented x3 cranial nerves II through XII intact, no motor deficit, no abnormal balance or gait. Results CBC & Chem 7: 07/09/20 18:10 07/09/20 18:10 Labs: Abnormal Lab Results - Last 24 Hours (Table) 07/09/20 07/09/20 07/09/20 Range/Units 18:10 18:10 18:18 RDW 17.2 H (11.5-15.5) % Lymphocytes # (Manual) 0.86 L (1.0-4.8) k/uL BUN 37 H (7-17) mg/dL Glucose 199 H (74-99) mg/dL Urine Glucose (UA) 4+ H (Negative) Ur Leukocyte Esterase Trace H (Negative) Amorphous Sediment Rare H (None) /hpf Urine Mucus Rare H (None) /hpf Assessment and Plan Assessment: 1 severe lower back pain and severe spinal stenosis post surgery: Patient continue to have multiple fall with debility not been able to ambulate and walk since her last fall has been almost bedridden will require more help start PTOT and social and human services assistant for possible going back to subacute rehab or home with help when needed. 2 fall with right leg weakness no sign of fracture and knee will be seen orthopedic for further management require CAT scan to exclude occult fracture will be done. 3 history of DVT and is thromboses and pulmonary embolism: Has been on anticoagulation with Eliquis 5 mg twice a day. Hypertension: Remain on atenolol 50 mg daily. 5 hypothyroidism: Continue replacement therapy. 6 previous history of TIA 2 with no residual still having significant balance which combination of the lumbar spine and stroke. 7 hyperlipidemia: On statin doing well. 8 history of GI bleed recently: With no transfusion require still watching for any recurrent bleed. 9 chronic depression: Has been on Prozac 50 mg daily. 10 seasonal ALLERGY: Remain on Singulair and Claritin. 11 chronic gout: Has been on allopurinol 100 mg daily. 12 restless leg syndrome: Continue patient on Requip. 13 GI prophylaxis: Continue Protonix. 14 DVT prophylaxis: Remain on Eliquis. CODE STATUS: Full code. Admit patient to inpatient service for 1-2 nights tape.
[2020-07-10 01:29] VITALS: BP 115/79; RESP 16
[2020-07-10] MEDS: SODIUM CHLORIDE 0.9% 1,000 ML IV SCH (05:31)
[2020-07-10] MEDS ORDERED: LEVOTHYROXINE 25 MCG TAB PO SCH (06:30)
[2020-07-10 07:05] LABS: Glucose,Whole Blood 199 mg/dL (75-99)
[2020-07-10 07:56] VITALS: PULSE 87; TEMP 97.6
[2020-07-10] MEDS: INSULIN ASPART (NovoLOG) 100 UNIT/ML VIAL SQ SCH ×2 (08:29→12:44)
--- NOTE | 2020-07-10 08:41 | P.CNOR ---
History of Present Illness - HPI Consult date: 07/10/20 Requesting physician: Carlos Enrique Farooq Consult reason: joint pain History of present illness: Pretty presents after a fall from standing at her home. The patient states that she was using it to measure to try and measure something on the ground when she went to step on the tape measure on one side and her right leg gave out and she ended up falling onto the ground. She does state that she had her head but she did not lose consciousness. She denies any pain in her upper extremities but c omplains of pain in her right knee which had a total knee replacement done in July 2019. She also has a history of a right hip fracture status post DHS on that side sometime ago. Patient states that her right leg just feels weaker. She was in Dr. Rocha's office yesterday and was doing okay. I did see the patient on Wednesday as well and she was doing well and walked with a walker. She complains of weakness in her right leg but no back pain at this time. She does state some pain that travels down the leg although it is minimal at this time. She denies any bowel or bladder incontinence. She denies any perineal numbness or tingling. Review of Systems 14 points review of systems completed and as stated in HPI, all other systems reviewed are negative. 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, VARI COSE VEINS, GOUT, LYMPHOMA (HX OF CHEMO & RADIATION 1977,1982 & 1993), hx migraines, hx ulcer, constipation, "red spots all over", History of Any Multi-Drug Resistant Organisms: None Reported Past Surgical History: Appendectomy, Back Surgery, Breast Surgery, Cholecystectomy, Hysterectomy, Joint Replacement, Orthopedic Surgery, Tonsillectomy Additional Past Surgical History / Comment(s): RIGHT HIP REPAIR, german KNEE REPLACEMENT, rods german thumbs and rt 3rd toe, BREAST & AXILLARY BX, TUMOR IN THROAT REMOVED., CERVICAL FUSION, LUMBAR LAMINECTOMY,DECOMPRESSION-FUSION L1- L2., recent back surgery for nerve and tendons, german cataracts Past Anesthesia/Blood Transfusion Reactions: No Reported Reaction Additional Past Anesthesia/Blood Transfusion Reaction / Comm: CLAUSTROPHOBIA Past Psychological History: Anxiety, Depression Smoking Status: Never smoker Past Alcohol Use History: None Reported Past Drug Use History: None Reported - Past Family History Father Family Medical History: Deep Vein Thrombosis (DVT), Pulmonary Embolus Additional Family Medical History / Comment(s): Father at age 32 from pulmonary embolism. Mother Family Medical History: Cancer Additional Family Medical History / Comment(s): . Brother(s) Family Medical History: Cancer, Deep Vein Thrombosis (DVT) Additional Family Medical History / Comment(s): Patient had 2 brothers that have passed one from myocardial infarction and one from pulmonary embolism. 2 brothers are alive and one has lung cancer, one brother is alive with a brain aneurysm and CVA. Medications and Allergies Home Medications Medication Instructions Recorded Confirmed Type Calcium Carb-Vit D 500Mg-200Un 1 tab PO DAILY 01/05/14 07/09/20 History [Oscal 500+D] allopurinoL [Zyloprim] 100 mg PO DAILY 01/05/14 07/09/20 History atenoloL [Tenormin] 50 mg PO HS 01/05/14 07/09/20 History Levothyroxine Sodium [Synthroid] 12.5 mcg PO DAILY 03/16/14 07/09/20 History Zolpidem [Ambien] 5 mg PO HS 03/16/14 07/09/20 History Omeprazole [PriLOSEC] 40 mg PO QAM 03/08/20 07/09/20 History rOPINIRole HCL [Requip] 4 mg PO TID 03/16/20 07/09/20 History Apixaban [Eliquis] 5 mg PO BID tab 04/22/20 07/09/20 Rx methocarbamoL [Robaxin] 750 mg PO QID PRN tab 04/22/20 07/09/20 Rx Acetaminophen-Codeine 300-30mg 1 tab PO BID PRN 06/04/20 07/09/20 History [Tylenol w/codeine #3] polyethylene glycoL 3350 [Miralax] 17 gm PO DAILY PRN 06/04/20 07/09/20 History Alpha Lipoic Acid 600 mg PO QAM 07/03/20 07/09/20 History DULoxetine HCL [Cymbalta] 60 mg PO DAILY 07/03/20 07/09/20 History Empagliflozin/Linagliptin 1 each PO QAM 07/03/20 07/09/20 History [Glyxambi 25 mg-5 mg Tablet] Gabapentin [Neurontin] 300 mg PO BID 07/03/20 07/09/20 History Gabapentin [Neurontin] 600 mg PO HS 07/03/20 07/09/20 History Ipratropium [place] 0.06%Nasal 2 spray EA NOSTRIL BID 07/03/20 07/09/20 History [Atrovent Nasal 0.06%] S-Adenosylmethionine Sul Tosyl 1,000 mg PO QAM 07/03/20 07/09/20 History [Nuno-E] Allergies Allergy/AdvReac Type Severity Reaction Status Date / Time adhesive Allergy red skin, Verified 07/09/20 20:32 blisters cefaclor [From Ceclor] Allergy Rash/Hives Verified 07/09/20 20:32 ciprofloxacin [From Cipro] Allergy Rash/Hives Verified 07/09/20 20:32 ciprofloxacin HCl Allergy Rash/Hives Verified 07/09/20 20:32 [From Cipro] hydromorphone HCl Allergy Anaphylaxis Verified 07/09/20 20:32 [From Dilaudid] Penicillins Allergy Rash/Hives Verified 07/09/20 20:32 sulfamethoxazole AdvReac Abdominal Verified 07/09/20 20:32 [From Bactrim] Pain trimethoprim [From Bactrim] AdvReac Abdominal Verified 07/09/20 20:32 Pain Physical Examination Osteopathic Statement: *. No significant issues noted on an osteopathic structural exam other than those noted in the History and Physical/Consult. GEN: AOX3, NAD VSS Inspection: appears well and in no acute distress. Palpation: She has no tennis palpation of her lumbar spine or thoracic spine. She does have tenderness to palpation of her right knee with ecchymosis and bruising around the anterior portion of the right tibia. The patient has painless range of motion of this right knee passive and active. She has no pain with logroll of the right hip or left hip. She has full painless range of motion of her right ankle. Her left lower extremity has full painless range of motion of all major joints. Motor: 5/5 shoulder abd/EF/EE/WF/intrinsics / DF/PF/EHL/FHL/HF/KE/KF While the patient complains of weakness in her right lower extremity when she is distracted she is able to move this fairly well. She is able to hold her leg up straight, she is able to flex her quad with good strength. Again when dist racted she dorsiflexes and plantar flexes without any issues but when you ask her to do this she concentrates and cannot seem to do it. Again when you distract her she is able to do so fairly well and with about 3+ to 4 minus strength in dorsiflexion and plantarflexion EHL and FHL on the right. Her hip flexion is weaker on the right and is about 3+ out of 5. However this is how it has been for some time now. There are no new deficits or weaknesses that can be focally determined. Reflexes: 2/4 DTR all upper and LE Sensation intact to light touch in C5-T1 as well as L2-S1 distribution No dermatomal deficits at this time Franklin's: Negative bilaterally Clonus: Negative bilaterally Babinski: As bilaterally Incision: intact and healed rectal lumbar spine, right hip, right knee Cranial nerves II through XII are grossly intact She has a positive sagittal balance overall She ambulates with a walker at baseline Results AP pelvis and right hip x-rays are reviewed and demonstrate a congruent femoral acetabular joints level pelvis with no fractures or dislocations. Postsurgical hardware of the right hip in the form of a DHS is intact without evidence of loosening or migration. Right knee films AP and oblique demonstrate postsurgical changes with total knee replacement hardware in place no evidence of loosening fracture or dislocation noted. Computed tomography scan of the head and cervical spine from her previous visit are also reviewed. This demonstrates postsurgical changes in the anterior neck region with fusion in this area. There are no acute fractures or dislocations occipital cervical and C1 2 joints are congruent and stable. There is no evidence of instability throughout the cervical spine. - Labs Labs: Abnormal Lab Results - Last 24 Hours (Table) 07/09/20 07/09/20 07/09/20 Range/Units 18:10 18:10 18:18 RDW 17.2 H (11.5-15.5) % Lymphocytes # (Manual) 0.86 L (1.0-4.8) k/uL BUN 37 H (7-17) mg/dL Glucose 199 H (74-99) mg/dL POC Glucose (mg/dL) (75-99) mg/dL Urine Glucose (UA) 4+ H (Negative) Ur Leukocyte Esterase Trace H (Negative) Amorphous Sediment Rare H (None) /hpf Urine Mucus Rare H (None) /hpf 07/10/20 Range/Units 07:03 RDW (11.5-15.5) % Lymphocytes # (Manual) (1.0-4.8) k/uL BUN (7-17) mg/dL Glucose (74-99) mg/dL POC Glucose (mg/dL) 199 H (75-99) mg/dL Urine Glucose (UA) (Negative) Ur Leukocyte Esterase (Negative) Amorphous Sediment (None) /hpf Urine Mucus (None) /hpf H & H 07/09/20 Range/Units 18:10 Hgb 13.0 (11.4-16.0) gm/dL Hct 40.7 (34.0-46.0) % Coagulation 07/09/20 Range/Units 18:10 INR 0.9 (<1.2) Result Diagrams: 07/09/20 18:10 07/09/20 18:10 Assessment and Plan Assessment: 80-year-old female status post T12 to L3 revision fusion and decompression for epidural bony mass with right lower extremity weakness, generalized weakness, disability No new fractures, right hip hardware in right knee hardware in place no evidence of loosening or fracture No new focal neurologic deficits Plan: -Appreciate consult -Medical management -We will obtain x-rays of thoracolumbar spine for completeness sake -Pain control as needed -PT/OT -Could Consider Decadron however patient has diabetes and whenever she is on steroids this makes her sugars volatile -No acute surgical intervention at this time, would recommend rehab or placement with family so that patient does not live alone. She did recently get fitted for an AFO of her right lower extremity which she states is now in I would recommend that she wears this to help. I do not feel that her weakness is related to surgical efforts or any new onset or acute problem. I do feel that her leg gives out now and then secondary to the fact that it has had previous surgeries she has had multiple back surgeries and the symptoms that she is experiencing are likely chronic. Time with Patient: Greater than 30
[2020-07-10] MEDS ORDERED: NON FORMULARY DRUG (Alpha Lipoic Acid [Alpha Lipoic Acid] 600 MG Tablet) PO SCH (09:00)
[2020-07-10] MEDS ORDERED: NON FORMULARY DRUG (Omeprazole 40 MG Capsule.Dr) PO SCH (09:00)
[2020-07-10] MEDS ORDERED: [UNRECOGNIZED DRUG - OTHER] PO SCH (09:00)
[2020-07-10] MEDS ORDERED: Empagliflozin/Linagliptin [Glyxambi 25 Mg-5 Mg Tablet] PO SCH (09:00)
[2020-07-10] MEDS ORDERED: APIXABAN 5 MG TAB PO SCH (09:00)
[2020-07-10] MEDS ORDERED: GABAPENTIN 300 MG CAP PO SCH ×2 (09:00→21:00)
[2020-07-10] MEDS ORDERED: DULoxetine HCL 60 MG CAPSULE.DR PO SCH (09:00)
[2020-07-10] MEDS ORDERED: PANTOPRAZOLE 40 MG/10 ML VIAL IV SCH (09:00)
[2020-07-10] MEDS ORDERED: allopurinoL 100 MG TAB PO SCH (09:00)
[2020-07-10] MEDS ORDERED: IPRATROPIUM BROMIDE 0.06% NASAL SPRAY (15 ML) EA NOSTRIL SCH (09:00)
[2020-07-10] MEDS ORDERED: CALCIUM CARB-VIT D 500MG-200UN 1 EACH TAB PO SCH (09:00)
--- NOTE | 2020-07-10 09:58 | XR ---
EXAMINATION TYPE: XR lumbar spine 2 or 3V, XR thoraco lumbar junction DATE OF EXAM: 07/10/2020 CLINICAL HISTORY: pain TECHNIQUE: Three views of the lumbar spine are submitted. AP and lateral views of the stenosis. COMPARISON: None. FINDINGS: Extensive postsurgical changes are noted fusion extending from T12 through L2 and at L4-S1. Pedicular screws are in place. Alignment is anatomic. Mild curvature convex to the right. No evidence for comp ression fracture. IMPRESSION: No acute fracture or dislocation is seen in the lumbar spine. ICD 10 NO FRACTURE, INITIAL EVALUATION
[2020-07-10] MEDS: MORPHINE SULFATE 4 MG/ML SYRINGE IV PRN (10:10)
--- NOTE | 2020-07-10 10:49 | P.PN ---
Subjective Progress Note Date: 07/10/20 HISTORY OF PRESENT ILLNESS 80-year-old female one of Dr. Rocha Patient was history of type 2 diabetes, non-Hodgkin's lymphoma diagnosed , history of TIA, hypertension, hyperl ipidemia, hypothyroidism and restless leg syndrome who had also chronic history of depression has been treated for lower back pain post multiple lower back surgery and epidural injection has been seen pain management regular basis, patient was hospitalized recently for acute GI bleed with acute blood loss anemia post EGD and colonoscopy revealed antral gastritis with area of ulceration at the time, nonbleeding in the distal transverse colon, patient had pulmonary embolism and left lower extremity DVT was diagnosed in February 2020 has been on Eliquis since, patient underwent T12 to L2 fusion and decompression in March this year ended up going to [facility] rehab and from there was transferred to [facility] for sure. This time and ended up going back home with family, patient has improved and has been living at home on her own family and her kids check on her on regular basis. Patient returned to [facility] today for mechanical fall reported that she was walking with walker trying to measure a rug with tape measurement when she fell and hit her right knee and right hip area seen [facility] department 4 days ago denies any head injury patient was taking Eliquis as an anticoagulation continue to have significant pain and discomfort in the right leg with severe weakness with the severity of her pain patient had her surgery done by Dr. Plummer and still seen by him as an outpatient. After her fall today she came to [facility] all extra came back negative patient still not able to ambulate and walk she has been living home by herself family are not stained with her mother make an arrangement for further management to posterior in their house with extra help in the meanwhile she might need physical therapy or rehab temporary until she is able to walk safe with slight independent. 07/10: Patient is afebrile, heart rate 94, blood pressure 115/79, pulse ox 94- 96% on room air area patient has been seen by Dr. Edward son and x-rays of her back have been ordered. Consults with PT, OT and manager social services are in place. Patient has been seen by orthopedics and additional x-rays were ordered. Lumbar spine and thoracic lumbar junction revealed no acute fracture or dislocation. No plan for surgical intervention. We'll recommend rehab or placement. Family is planning for her to return home with her daughter. Dr. Edward's and recommended AFO of her right lower extremity. Patient will be discharged today once arrangements are completed. REVIEW OF SYSTEMS CONSTITUTIONAL: Well-developed no acute respiratory distress. Denies fever. EYES: No icterus sclerae, no conjunctivitis. EARS, NOSE, MOUTH, THROAT, and FACE: No sore throat, lymphadenopathy, carotid bruits or deformity. RESPIRATORY: decrease breath some bilateral with fi CARDIOVASCULAR: No CP, Palpitation, PND, Orthopnea, or angina. GASTROINTESTINAL: No Abd pain, Nausea or vomiting, no Diarrhea or constipation, No GI Bleed, no distention or masses. GENITOURINARY: Negative for Hematuria or UTI, no kidney stones. INTEGUMENT/BREAST: Negative for any muscular injury with mild osteoarthritis..significant arthritis of the right knee and hip a HEMATOLOGIC/LYMPHATIC: Negative for bleed or purpura. MUSCULOSKELTAL: Negative for Myalgia or arthralgia. NEURLOGICAL: No LOC, Sz or syncope, blurred vision dizziness or abnormality.. BEHAVIORAL/PSYCH: Negative. ENDOCRINE: Negative. PHYSICAL EXAMINATION General Appearance: Alert, cooperative, no distress, appears stated age. Patient appears to be comfortable. Neck HEENT: Supple, no lymphadenopathy, no thyroid enlargement, no carotid bruits. Lungs: Clear to auscultation without crackles or wheezes no rhonchi, no deformity. Chest Wall: Chest wall normal expansion with deep inspiration no tenderness and no deformity was found on exam, no costochondral pain or discomfort. Heart: Regular rate and rhythm, S1, S2 normal, no murmur, rub or gallop. Back: Symmetric, no curvature, ROM normal, no CVA tenderness. Abdomen: Soft, non-tender, bowel sounds active all four quadrants, no masses, no organomegaly. Extremities: Extremities normal, atraumatic, no cyanosis or edema. Pulses: 2+ and symmetric. Skin: Skin color, texture, tugor normal, no rashes or lesions. Neurologic: Alert oriented x3 cranial nerves II through XII intact, no motor deficit, no abnormal balance or gait. ASSESSMENT AND PLAN 1 severe lower back pain and severe spinal stenosis post surgery area and additional x-rays done as above. Orthopedic consult appreciated. 2 fall with right leg weakness no sign of fracture and knee will be seen orthopedic for further management require CAT scan to exclude occult fracture will be done. 3 history of DVT and is thromboses and pulmonary embolism: Has been on anticoagulation with Eliquis 5 mg twice a day. Hypertension: Remain on atenolol 50 mg daily. 5 hypothyroidism: Continue replacement therapy. 6 previous history of TIA 2 with no residual still having significant balance which combination of the lumbar spine and stroke. 7 hyperlipidemia: On statin doing well. 8 history of GI bleed recently: With no transfusion require still watching for any recurrent bleed. 9 chronic depression: Has been on Prozac 50 mg daily. 10 seasonal ALLERGY: Remain on Singulair and Claritin. 11 chronic gout: Has been on allopurinol 100 mg daily. 12 restless leg syndrome: Continue patient on Requip. 13 GI prophylaxis: Continue Protonix. 14 DVT prophylaxis: Remain on Eliquis. CODE STATUS: Full code. DISCHARGE PLAN Home with daughter, Chevy fleming. Impression and plan of care have been directed as dictated by the signing physician. Karen Quintero nurse practitioner acting as scribe for signing ph ysician. Objective - Vital Signs Vital signs: Vital Signs Temp 97.7 F 07/10/20 01:26 Pulse 94 07/10/20 01:26 Resp 16 07/10/20 01:26 BP 115/79 07/10/20 01:26 Pulse Ox 94 L 07/10/20 01:26 Intake & Output 07/09/20 07/10/20 07/10/20 18:59 06:59 18:59 Weight 62.142 kg 62.142 kg - Labs CBC & Chem 7: 07/09/20 18:10 07/09/20 18:10 Labs: Abnormal Lab Results - Last 24 Hours (Table) 07/09/20 07/09/20 07/09/20 Range/Units 18:10 18:10 18:18 RDW 17.2 H (11.5-15.5) % Lymphocytes # (Manual) 0.86 L (1.0-4.8) k/uL BUN 37 H (7-17) mg/dL Glucose 199 H (74-99) mg/dL POC Glucose (mg/dL) (75-99) mg/dL Urine Glucose (UA) 4+ H (Negative) Ur Leukocyte Esterase Trace H (Negative) Amorphous Sediment Rare H (None) /hpf Urine Mucus Rare H (None) /hpf 12/16/20 Range/Units 07:03 RDW (11.5-15.5) % Lymphocytes # (Manual) (1.0-4.8) k/uL BUN (7-17) mg/dL Glucose (74-99) mg/dL POC Glucose (mg/dL) 199 H (75-99) mg/dL Urine Glucose (UA) (Negative) Ur Leukocyte Esterase (Negative) Amorphous Sediment (None) /hpf Urine Mucus (None) /hpf
--- NOTE | 2020-07-10 10:53 | P.DS ---
Providers Date of admission: 07/09/20 19:35 Expected date of discharge: 07/10/20 Attending physician: Carlos Enrique Farooq Consults: 07/10/20 07:55 Consult Physician Routine Consulting Provider: Claudio Plummer Consult Reason/Comments: fall, r/o occult fx Do you want consulting provider notified?: Yes Primary care physician: Alvarez Rocha [facility] Course: HISTORY OF PRESENT ILLNESS 80-year-old female one of Dr. Rocha Patient was history of type 2 diabetes, non-Hodgkin's lymphoma diagnosed , history of TIA, hypertension, hyperlipidemia, hypothyroidism and restless leg syndrome who had also chronic history of depression has been treated for lower back pain post multiple lower back surgery and epidural injection has been seen pain management regular basis, patient was hospitalized recently for acute GI bleed with acute blood loss anemia post EGD and colonoscopy revealed antral gastritis with area of ulceration at the time, nonbleeding in the distal transverse colon, patient had pulmonary embolism and left lower extremity DVT was diagnosed in February 2020 has been on Eliquis since, patient underwent T12 to L2 fusion and decompression in March this year ended up going to [facility] rehab and from there was transferred to [facility] for sure. This time and ended up going back home with family, patient has improved and has been living at home on her own family and her kids check on her on regular basis. Patient returned to [facility] today for mechanical fall reported that she was walking with walker trying to measure a rug with tape measurement when she fell and hit her right knee and right hip area seen [facility] department 4 days ago denies any head injury patient was taking Eliquis as an anticoagulation continue to have significant pain and discomfort in the right leg with severe weakness with the severity of her pain patient had her surgery done by Dr. Plummer and still seen by him as an outpatient. After her fall today she came to [facility] all extra came back negative patient still not able to ambulate and walk she has been living home by herself family are not stained with her mother make an arrangement for further management to posterior in their house with extra help in the meanwhile she might need physical therapy or rehab temporary until she is able to walk safe with slight independent. 07/10: Patient is afebrile, heart rate 94, blood pressure 115/79, pulse ox 94- 96% on room air area patient has been seen by Dr. Edward son and x-rays of her back have been ordered. Consults with PT, OT and manager social work are in place. Patient has been seen by orthopedics and additional x-rays were ordered. Lumbar spine and thoracic lumbar junction revealed no acute fracture or dislocation. No plan for surgical intervention. We'll recommend rehab or placement. Family is planning for her to return home with her daughter. Dr. Edward's and recommended AFO of her right lower extremity. Patient will be discharged today once arrangements are completed. Patient will be evaluated by PT and OT prior to discharge. ASSESSMENT AND PLAN 1 severe lower back pain and severe spinal stenosis post surgery area and additional x-rays done as above. 2 fall with right leg weakness no sign of fracture 3 history of DVT and pulmonary embolism 4 Hypertension 5 hypothyroidism 6 previous history of TIA 2 with no residual 7 hyperlipidemia 8 history of GI bleed 9 recurrent depression 10 seasonal ALLERGY 11 chronic gout 12 restless leg syndrome DISCHARGE PLAN Home with daughter, Chevy fleming. Impression and plan of care have been directed as dictated by the signing physician. Karen Quintero nurse practitioner acting as scribe for signing physician. Patient Condition at Discharge: Stable Plan - Discharge Summary Discharge Rx Participant: No New Discharge Prescriptions: Continue allopurinoL [Zyloprim] 100 mg PO DAILY atenoloL [Tenormin] 50 mg PO HS Calcium Carb-Vit D 500Mg-200Un [Oscal 500+D] 1 tab PO DAILY Zolpidem [Ambien] 5 mg PO HS Levothyroxine Sodium [Synthroid] 12.5 mcg PO DAILY Omeprazole [PriLOSEC] 40 mg PO QAM rOPINIRole HCL [Requip] 4 mg PO TID methocarbamoL [Robaxin] 750 mg PO QID PRN tab PRN Reason: Muscle Spasm Apixaban [Eliquis] 5 mg PO BID tab Acetaminophen-Codeine 300-30mg [Tylenol w/codeine #3] 1 tab PO BID PRN PRN Reason: Pain polyethylene glycoL 3350 [Miralax] 17 gm PO DAILY PRN PRN Reason: Constipation Alpha Lipoic Acid 600 mg PO QAM Empagliflozin/Linagliptin [Glyxambi 25 mg-5 mg Tablet] 1 each PO QAM Gabapentin [Neurontin] 300 mg PO BID Gabapentin [Neurontin] 600 mg PO HS Ipratropium [place] 0.06%Nasal [Atrovent Nasal 0.06%] 2 spray EA NOSTRIL BID S-Adenosylmethionine Sul Tosyl [Nuno-E] 1,000 mg PO QAM DULoxetine HCL [Cymbalta] 60 mg PO DAILY Discharge Medication List Calcium Carb-Vit D 500Mg-200Un [Oscal 500+D] 1 tab PO DAILY 01/05/14 [History] allopurinoL [Zyloprim] 100 mg PO DAILY 01/05/14 [History] atenoloL [Tenormin] 50 mg PO HS 01/05/14 [History] Levothyroxine Sodium [Synthroid] 12.5 mcg PO DAILY 03/16/14 [History] Zolpidem [Ambien] 5 mg PO HS 03/16/14 [History] Omeprazole [PriLOSEC] 40 mg PO QAM 03/08/20 [History] rOPINIRole HCL [Requip] 4 mg PO TID 03/16/20 [History] Apixaban [Eliquis] 5 mg PO BID tab 04/22/20 [Rx] methocarbamoL [Robaxin] 750 mg PO QID PRN tab 04/22/20 [Rx] Acetaminophen-Codeine 300-30mg [Tylenol w/codeine #3] 1 tab PO BID PRN 06/04/20 [History] polyethylene glycoL 3350 [Miralax] 17 gm PO DAILY PRN 06/04/20 [History] Alpha Lipoic Acid 600 mg PO QAM 07/03/20 [History] DULoxetine HCL [Cymbalta] 60 mg PO DAILY 07/03/20 [History] Empagliflozin/Linagliptin [Glyxambi 25 mg-5 mg Tablet] 1 each PO QAM 07/03/20 [History] Gabapentin [Neurontin] 300 mg PO BID 07/03/20 [History] Gabapentin [Neurontin] 600 mg PO HS 07/03/20 [History] Ipratropium [place] 0.06%Nasal [Atrovent Nasal 0.06%] 2 spray EA NOSTRIL BID 07/03/20 [History] S-Adenosylmethionine Sul Tosyl [Nuno-E] 1,000 mg PO QAM 07/03/20 [History] Follow up Appointment(s)/Referral(s): [facility], [NON-STAFF] - 1-2 Days Sonora,Alvarez, DO [Primary Care Provider] - 1 Week Discharge Disposition: HOME WITH HOME HEALTH SERVICES
[2020-07-10 11:05] LABS: Glucose,Whole Blood 212 mg/dL (75-99)
[2020-07-10] MEDS ORDERED: atenoloL 50 MG TAB PO SCH (21:00)
[2020-07-10] MEDS ORDERED: ZOLPIDEM 5 MG TAB PO SCH (21:00)
== END 2020-07-10 13:33 | disposition home health service (06) ==
LOC: EC 15:22 → 5NMEDONC 19:35
PROVIDERS: ADMIT Internal Medicine Geriatric Medicine; ATTEND Internal Medicine Geriatric Medicine
DX: R53.1 Weakness (principal); R29.6 Repeated falls; M54.5 Low back pain; M48.00 Spinal stenosis, site unspecified; I10 Essential (primary) hypertension; E03.9 Hypothyroidism, unspecified; E78.5 Hyperlipidemia, unspecified; F33.9 Major depressive disorder, recurrent, unspecified; J30.2 Other seasonal allergic rhinitis; M1A.9XX0 Chronic gout, unspecified, without tophus (tophi); G25.81 Restless legs syndrome; G89.29 Other chronic pain; M79.604 Pain in right leg; E11.9 Type 2 diabetes mellitus without complications; K21.9 Gastro-esophageal reflux disease without esophagitis; M19.90 Unspecified osteoarthritis, unspecified site; L98.8 Other specified disorders of the skin and subcutaneous tissue; I83.90 Asymptomatic varicose veins of unspecified lower extremity; G43.909 Migraine, unspecified, not intractable, without status migrainosus; F41.9 Anxiety disorder, unspecified; R62.7 Adult failure to thrive; E86.0 Dehydration; F40.240 Claustrophobia; Z79.01 Long term (current) use of anticoagulants; Z98.890 Other specified postprocedural states; Z79.899 Other long term (current) drug therapy; Z79.890 Hormone replacement therapy; Z79.891 Long term (current) use of opiate analgesic; Z79.52 Long term (current) use of systemic steroids; Z91.09 Other allergy status, other than to drugs and biological substances; Z88.1 Allergy status to other antibiotic agents; Z88.5 Allergy status to narcotic agent; Z88.0 Allergy status to penicillin; Z88.2 Allergy status to sulfonamides; Z85.72 Personal history of non-Hodgkin lymphomas; Z92.21 Personal history of antineoplastic chemotherapy; Z92.3 Personal history of irradiation; Z86.718 Personal history of other venous thrombosis and embolism; Z86.711 Personal history of pulmonary embolism; Z86.73 Personal history of transient ischemic attack (TIA), and cerebral infarction without residual deficits; Z68.25 Body mass index [BMI] 25.0-25.9, adult; Z87.898 Personal history of other specified conditions; Z87.19 Personal history of other diseases of the digestive system; Z90.49 Acquired absence of other specified parts of digestive tract; Z90.710 Acquired absence of both cervix and uterus; Z96.653 Presence of artificial knee joint, bilateral; Z90.89 Acquired absence of other organs; Z98.1 Arthrodesis status; Z98.41 Cataract extraction status, right eye; Z98.42 Cataract extraction status, left eye; Z87.81 Personal history of (healed) traumatic fracture; Z82.49 Family history of ischemic heart disease and other diseases of the circulatory system; Z80.9 Family history of malignant neoplasm, unspecified; Z80.1 Family history of malignant neoplasm of trachea, bronchus and lung; Z82.3 Family history of stroke
CPT/HCPCS: 96376 ×2; 96375; 96374; 99285; 36415; 97161; 80053; 84443; 85025; 85610; 85730; 81001; 72080; 72100; 73502; 73562; G0378 ×2; J2270 ×2; C9113

== ENCOUNTER 2020-07-16 13:00 | Day surgery (SDC) | payer MEDICARE, BC ==
[2020-07-15 12:14] VITALS: BMI 25.0
[2020-07-16 13:31] LABS: Glucose,Whole Blood 137 mg/dL (75-99)
[2020-07-16 13:33] VITALS: TEMP 97.7
[2020-07-16] MEDS ORDERED: DEXAMETHASONE SOD PHOSPHATE 10 MG/ML 1 ML VIAL ONE (13:33)
[2020-07-16] MEDS ORDERED: IOPAMIDOL M200 10 ML VIAL ONE (13:33)
--- NOTE | 2020-07-16 13:50 | P.PCN ---
Date of Procedure: 07/16/20 Description of Procedure: PREOPERATIVE DIAGNOSIS: Lumbar radiculopathy POSTOPERATIVE DIAGNOSIS: Lumbar radiculopathy PROCEDURE 1. Transforaminal epidural steroid injection under fluoroscopic guidance right L3 4, L4 5 2. Lumbar epidurogram IMAGING Fluoroscopy was used, images where saved to the medical record ANESTHESIA: Local with 1% lidocaine 5 ml PROCEDURE DESCRIPTION / TECHNIQUE: The patient was seen and identified in the preoperative area. Risks, benefits, complications, and alternatives were discussed with the patient. The patient agreed to proceed with the procedure and signed the consent, vital signs were stable prior to the procedure. Patient was taken to the OR and time out was completed. The patient was placed in the prone position on procedure table and a pillow was placed under the abdomen to reduce lumbar lordosis. The lumbosacral area was prepped and draped in the usual sterile fashion. Vital signs were closely monitored during the procedure. Conscious sedation was used. Using oblique fluoroscopy, the chin of the "John dog" at the pedicle and the skin and deeper tissues just below was localized with 1% lidocaine. Subsequently, a 25-gauge 3.5-inch spinal needle was advanced under a tunneled view fluoroscopic guidance just underneath the chin of the "John dog". Under lateral fluoroscopy, the needle was then advanced to the posterior border interforaminal space. After negative aspiration of CSF and blood and with no paresthesias, 1 mL of Omnipaque-240 contrast dye was injected excellent epidurogram. Subsequently, a solution totalling 2ml of dexamethasone and PFNS was injected after negative aspiration (total of 10mg of dexamethasone was used). The needle was removed intact. COMPLICATIONS: None DISPOSITION: The patient was placed in a supine position and transferred to the recovery area in a stable condition for observation. There was no evidence of lower extremity motor or sensory deficit after the procedure. Patient was discharged from the recovery room after meeting discharge criteria. Home discharge instructions were given to the patient by the staff. The patient was reexamined prior to discharge. Follow up as directed.
--- NOTE | 2020-07-16 13:59 | FL ---
Fluoroscopy HISTORY: Pain 24 seconds fluoroscopy time supplied to the referring clinician. 2 intraoperative C-arm images docum ent the procedure. See dictated report from anesthesia.
[2020-07-16 14:02] VITALS: RESP 20
[2020-07-16] MEDS ORDERED: LACTATED RINGERS 1,000 ML IV SCH (14:03)
[2020-07-16 14:24] LABS: Glucose,Whole Blood 144 mg/dL (75-99)
[2020-07-16 14:28] VITALS: BP 133/78; PULSE 98
== END 2020-07-16 14:20 | disposition home or self-care (01) ==
LOC: ORPAIN 13:00
PROVIDERS: ATTEND Hospitalist
DX: M54.16 Radiculopathy, lumbar region (principal); E11.9 Type 2 diabetes mellitus without complications; Z88.8 Allergy status to other drugs, medicaments and biological substances
CPT/HCPCS: 64483; 64484

== ENCOUNTER → 2020-07-17 | Outpatient (CLI) | payer MEDICARE, BC ==
--- NOTE | 2020-07-17 11:18 | XR ---
EXAMINATION TYPE: XR knee complete RT DATE OF EXAM: 07/17/2020 CLINICAL HISTORY: pain TECHNIQUE: Three views of the right knee are obtained. COMPARISON: None. FINDINGS: Total knee arch plasty is in place with femoral and tibial components appearing well seated . I do not see evidence for fracture or subluxation. Soft tissues are grossly unremarkable. IMPRESSION: There is no acute fracture or dislocation.ICD 10 NO FRACTURE, INITIAL EVALUATION
== END | disposition home or self-care (01) ==
LOC: RADXRMAIN 10:53
PROVIDERS: ATTEND Family Medicine
DX: M25.561 Pain in right knee (principal)

== ENCOUNTER → 2020-08-12 | Outpatient (CLI) | payer BC, MEDICARE ==
[2020-08-12 10:13] VITALS: BP 106/80; PULSE 121; RESP 16; TEMP 98.1
--- NOTE | 2020-08-12 13:20 | P.PN ---
Progress Note - Text Progress Note Date: 08/12/20 80-year-old female who presents postprocedural from a right transforaminal ep idural steroid injection at L3-L4, L4-L5. She's had extensive surgery of her lumbar spine from T12 to L5. She was referred by her orthopedic child life specialist who recommended epidural steroid injection. She noted significant release from the procedure greater than 50%. She is interested in having the injection repeated. Patient noted significant improvement in her ADLs, she is a 4 point walker dependent however has been able to take steps independently since the injection. Her goal is to be completely independent, able to drive again. VAS today ranges from a 2-4/10 in severity depending on activity. Pain radiating into her right lower extremity. She's had some improvement with hip flexion and quadriceps extension since injection. She denies any bowel or bladder incontinence or any saddle anesthesia. In addition to above, 13-point review of systems is also negative for chest pain, shortness of breath, changes in vision, changes in hearing, new onset weakness, abdominal pain, diarrhea, extreme fatigue, malaise, fever, skin changes, homicidal or suicidal ideation, or bowel or bladder incontinence. Physical exam: Gen: A&O 3, NAD, normal BMI HEENT: Atraumatic, normocephalic, pupils equal and reactive to light Integ: No skin abnormalities or lesions noted CVS: Regular rate and rhythm, adequate peripheral pulses Pulmn: Nonlabored, no wheezing Lumbar spine: Palpation: No tenderness to palpation Inspection: No deformities or scoliosis Range of motion: nromal flexion and extension Facet loading: Negative bilateral ARAVIND test: Negative bilateral Neuromuscular: Sensation: Intact from L1-S1 Motor: 4/5 hip flexion on right vs. left, 5/5 knee extension, 5/5 (EHL), 4-5/5 Dorsiflexion bilateral, 4-5/5 Plantar Flexion bilateral Gait: No gait abnormalities, no assist device utilized Imaging: Reviewed in EMR Assessment: 1. Lumbar post laminectomy syndrome 2. Lumbar radiculopathy 3. Lumbar degenerative disc disease Plan: 1. Explanation: Diagnoses, prognoses, and multiple treatment options including but not limited to physical therapy, interventional therapies, adjuvant medical therapies, narcotic medication therapies, and surgery were discussed with the patient and all questions were answered to the patient's satisfaction. 2. Opioid agreement: No opiates prescribed 3. Counseling: None given today 4. Procedures: Repeat epidural 5. Consultations: None 6. Investigations: None 7. Medications: None 8. Disposition: We'll repeat right transforaminal epidural steroid injection at L3-L4, L4-L5. Patient is on liquids and there is approval for her to stop her Eliquis. We'll get patient scheduled. PQRS measures: Documented on separate sheet
== END | disposition home or self-care (01) ==
LOC: PNWHC3 09:40
PROVIDERS: ATTEND Anesthesiology
DX: M96.1 Postlaminectomy syndrome, not elsewhere classified (principal); M51.16 Intervertebral disc disorders with radiculopathy, lumbar region
CPT/HCPCS: 99211

== ENCOUNTER → 2020-08-13 | Outpatient (CLI) | payer MEDICARE ==
--- NOTE | 2020-08-13 11:42 | FL ---
EXAMINATION TYPE: FL barium swallow w video DATE OF EXAM: 08/13/2020 COMPARISON: NONE HISTORY: Esophageal cancer, difficulty swallowing TECHNIQUE: Fluoroscopy. FINDINGS: Fluoroscopic guidance was provided for the procedure performed in conjunction with the [facility] pathology department. Please see complete report forthcoming from the Speech Pathology departmen t. Various consistencies from thin liquid to solids were administered. Fluoroscopy time 1 minute 17 seconds. Number of images: 0. No aspiration or penetration was evident. No significant pooling was observed in the vallecula. Very minimal residual may be present. There was normal propulsion of the bolus. IMPRESSION: 1. Unremarkable modified barium swallow
== END | disposition home or self-care (01) ==
LOC: RADFLMAIN 10:52
PROVIDERS: ATTEND Family Medicine
DX: R13.10 Dysphagia, unspecified (principal)
CPT/HCPCS: 74230

== ENCOUNTER 2020-08-22 12:39 | Day surgery (SDC) | payer BC, MEDICARE, OTHER ==
[2020-08-21 08:42] VITALS: BMI 24.7
[2020-08-22 13:04] VITALS: TEMP 97.4
[2020-08-22 13:05] LABS: Glucose,Whole Blood 142 mg/dL (75-99)
[2020-08-22] MEDS ORDERED: DEXAMETHASONE SOD PHOSPHATE 10 MG/ML 1 ML VIAL ONE (13:14)
[2020-08-22] MEDS ORDERED: IOPAMIDOL M200 10 ML VIAL ONE (13:14)
--- NOTE | 2020-08-22 13:37 | P.PCN ---
Date of Procedure: 08/22/20 Surgeon: Marcin Gao Pathology: none sent Condition: stable Disposition: PACU Description of Procedure: PREOPERATIVE DIAGNOSIS: Lumbar radiculopathy POSTOPERATIVE DIAGNOSIS: Lumbar radiculopathy PROCEDURE 1. Transforaminal epidural steroid injection under fluoroscopic guidance at L3- L4 on the right side 2. Lumbar epidurogram. SURGEON: Marcin Gao MD ANESTHESIA: Local with 1% lidocaine only EBL: Minimal PROCEDURE INDICATION: The patient with low back pain and radiculopathy symptoms unresponsive to conservative treatment. PROCEDURE DESCRIPTION / TECHNIQUE: The patient was seen and identified in the preoperative area. Risks, benefits, complications, and alternatives were discussed with the patient. The patient agreed to proceed with the procedure and signed the consent. IV was started, and vital signs were stable. Patient was taken to the OR and time out was completed. The patient was placed in the prone position on procedure table and a pillow was placed under the abd omen to reduce lumbar lordosis. The lumbosacral area was prepped and draped in the usual sterile fashion. Critical pause was taken. Vital signs were closely monitored during the procedure. Conscious sedation was used during the procedure to decrease patients anxiety. The vertebral body of the lumbar vertebra L3 was squared off by tilting the C-arm cephalad then the C-arm was tilted to the oblique position by about 35 and the target point was at the 6 o'clock position of the pedicle of L3 skin and deeper tissues were localized with 1% lidocaine. Subsequently, a 22-gauge 3.5-inch spinal needle was advanced under a tunneled view fluoroscopic guidance just underneath the chin of the John dog at the . Under lateral fluoroscopy, the needle was then advanced to the middle of the upper one third of the foramen between( L3 and4). After negative aspiration of CSF and blood and with no paresthesias, 1 mL of omnipaque contrast dye was injected excellent epidurogram and outlining of the L nerve root was identified. Subsequently, 2 mL of block solution containing 10 mg of Decadron and 1 mL of PFNS was injected at this level. Needle was removed and the same . At the end of the procedure, skin was cleansed, and bandages were applied. The patient has extensive hardware in her back with fusion the upper lumbar and lower lumbar areas with only one level of 3-0 Vicryl for the L3 vertebral body. This hardware gave significant technical problems and was able to do only level L3-4 due to difficulty identifying the anatomical landmark. If the patient needs any epidural injections in the future I think caudal epidural with lysis of adhesions would be a better option. COMPLICATIONS: None COMMENTS: DISPOSITION / PLANS: The patient was placed in a supine position and transferred to the recovery area in a stable condition for observation. There was no evidence of lower extremity motor or sensory deficit after the procedure. Patient was discharged from the recovery room after meeting discharge criteria. Home discharge instructions were given to the patient by the staff.
[2020-08-22 13:42] VITALS: RESP 17
[2020-08-22 14:06] VITALS: BP 124/81; PULSE 94
--- NOTE | 2020-08-22 18:40 | FL ---
EXAMINATION TYPE: FL guided pain mgmt statistic DATE OF EXAM: 08/22/2020 FLUOROSCOPY Fluoroscopy time of 19 seconds was used during right transforaminal steroid injection. 2 image/s doc ument/s the procedure.
== END 2020-08-22 14:10 | disposition home or self-care (01) ==
LOC: ORPAIN 12:39
PROVIDERS: ATTEND Anesthesiology
DX: M54.16 Radiculopathy, lumbar region (principal); Z98.1 Arthrodesis status; E11.9 Type 2 diabetes mellitus without complications; I10 Essential (primary) hypertension; Z86.73 Personal history of transient ischemic attack (TIA), and cerebral infarction without residual deficits; Z79.01 Long term (current) use of anticoagulants; Z90.710 Acquired absence of both cervix and uterus; Z86.718 Personal history of other venous thrombosis and embolism; Z88.0 Allergy status to penicillin; Z88.1 Allergy status to other antibiotic agents; Z91.048 Other nonmedicinal substance allergy status
CPT/HCPCS: 64483; J1100; Q9966; 64484

== ENCOUNTER → 2020-09-11 | Outpatient (CLI) | payer BC, MEDICARE, OTHER ==
--- NOTE | 2020-09-11 11:50 | XR ---
EXAMINATION TYPE: XR Hip Complete RT DATE OF EXAM: 09/11/2020 CLINICAL HISTORY: pain TECHNIQUE: AP and frogleg views of the right hip are obtained. COMPARISON: None. FINDINGS: There is no acute fracture/dislocation evident postoperative changes of dynamic compressio n screw placement and side plate. Mild degenerative joint space narrowing. The overlying soft tissue appears unremarkable. IMPRESSION: 1. There is no acute fracture or dislocation. ICD 10 NO FRACTURE, INITIAL EVALUATION
== END | disposition home or self-care (01) ==
LOC: RADXRMAIN 11:15
PROVIDERS: ATTEND Family Medicine
DX: M25.551 Pain in right hip (principal)
CPT/HCPCS: 73502

== ENCOUNTER 2020-09-25 07:26 | Day surgery (SDC) | payer MEDICARE ==
[2020-09-20 14:27] VITALS: BMI 25.0
[~2020-09-25 07:26] MED LIST changes: -BUPIVACAINE (PF) 0.5% 30 ML VIAL ONE; -HYDROcodone/APAP 10-325MG 1 EACH TAB PO ONE; -IOPAMIDOL M200 10 ML VIAL ONE; -LIDOCAINE 1% (10MG/ML) FOR IV START INTRADERMA ONE; +LIDOCAINE 1% (10MG/ML) FOR IV START INTRADERMA PRN; -MIDAZOLAM 2 MG/2 ML VIAL ONE; -MORPHINE SULFATE 5 MG/ML SYRINGE IVP ONE; -TRIAMCINOLONE ACETONIDE 40 MG/ML 1 ML VIAL ONE; -fentaNYL (PF) 50 MCG/ML 2 ML AMP ONE; -methylPREDNISolone ACETATE 40 MG/ML 1 ML VIAL ONE
[2020-09-25 07:55] VITALS: TEMP 97.8
[2020-09-25 07:58] LABS: Glucose,Whole Blood 160 mg/dL (75-99)
[2020-09-25] MEDS ORDERED: PROPOFOL 10 MG/ML 20 ML VIAL IV ONE (08:01)
[2020-09-25] MEDS ORDERED: LIDOCAINE 1% INJ 10MG/ML (20 ML MDV) ONE (08:01)
[2020-09-25 08:21] VITALS: RESP 16
--- NOTE | 2020-09-25 08:21 | P.PCN ---
Date of Procedure: 09/25/20 Procedure(s) Performed: BRIEF HISTORY: Patient is a 80-year-old, pleasant, female scheduled for an upper endoscopy as a part of evaluation of intermittent dysphagia, throat fullness, passive regurgitation for the last 4 months duration. She lost 40 pounds in the last 1 year. History of esophageal cancer in 1982 status post radiation therapy and doing well. Because of the persistent symptoms she is scheduled for an upper endoscopy with possible dilation today.. PROCEDURE PERFORMED: Esophagogastroduodenoscopy with biopsy. PREOPERATIVE DIAGNOSIS: Dysphagia to solids, passive regurgitation and weight loss of 40 pounds in the last 1 year duration. IV sedation per anesthesia. PROCEDURE: After informed consent was obtained, the patient was brought into the endoscopy unit. IV sedation was administered by Anesthesia under continuous monitoring. Initially the Olympus GIF-140 video endoscope was inserted into the mouth. Esophagus intubated without any difficulty. It was gradually advanced into the stomach and duodenum and carefully examined. The bulb and the second part of the duodenum appeared normal. The scope at this time was withdrawn to the stomach, adequately insufflated with air, and upon careful examination, mucosa of the antrum, had scattered erosions and biopsies were done from this area. The body, cardia and the fundus appeared normal. There was moderate amount of solid retained food in the fundus of the stomach with no evidence of gastric outlet obstruction. The scope was then withdrawn into the esophagus. The GE junction was located at 39 cm from the incisors. The esophagus appeared normal. There were no erosions or ulcerations seen , no evidence of esophageal stricture and the patient tolerated the procedure well. IMPRESSION: 1. Retained food in the the stomach suggestive of gastroparesis with no evidence of gastric outlet obstruction. 2. Mild antral gastritis.. 3. Normal-appearing esophagus with no evidence of esophagitis or esophageal stricture. RECOMMENDATIONS: The findings of this examination were discussed with the patient as well as a family. She was advised to start on small frequent meals, continue with dexillant 60 mg daily half hour before breakfast and follow antireflux measures.. She'll well be seen in office in 3-4 weeks
[2020-09-25 08:46] VITALS: BP 139/89; PULSE 96
== END 2020-09-25 09:23 | disposition home or self-care (01) ==
LOC: ORWHC2ENDO 07:26
PROVIDERS: ATTEND Internal Medicine Gastroenterology
DX: K31.9 Disease of stomach and duodenum, unspecified (principal); Z85.01 Personal history of malignant neoplasm of esophagus; R13.10 Dysphagia, unspecified; R63.4 Abnormal weight loss; Z92.3 Personal history of irradiation; I10 Essential (primary) hypertension; F32.9 Major depressive disorder, single episode, unspecified; K21.9 Gastro-esophageal reflux disease without esophagitis; E78.5 Hyperlipidemia, unspecified; Z86.73 Personal history of transient ischemic attack (TIA), and cerebral infarction without residual deficits; Z90.710 Acquired absence of both cervix and uterus; Z96.653 Presence of artificial knee joint, bilateral; Z90.49 Acquired absence of other specified parts of digestive tract; Z90.89 Acquired absence of other organs; Z98.890 Other specified postprocedural states; Z79.01 Long term (current) use of anticoagulants; Z79.890 Hormone replacement therapy; Z79.891 Long term (current) use of opiate analgesic; Z79.899 Other long term (current) drug therapy; Z88.5 Allergy status to narcotic agent; Z88.0 Allergy status to penicillin; Z91.09 Other allergy status, other than to drugs and biological substances
CPT/HCPCS: 88305; 43239; J2001; J2704

== ENCOUNTER 2020-10-06 12:41 | Inpatient (IN) | payer MEDICARE ==
[2020-10-06] MEDS ORDERED: SODIUM CHLORIDE 0.9% 500 ML 500 ML IV ONE (13:41)
[2020-10-06] MEDS ORDERED: fentaNYL (PF) 50 MCG/ML 2 ML AMP IVP STA (13:41)
[2020-10-06 14:03] LABS: Appearance,Urine Cloudy (Clear); Bacteria,Urine Moderate /hpf; Bilirubin,Urine Negative (Negative); Blood,Urine Large (Negative); Color,Urine Light Red; Glucose,Urine (UA) 4+ (Negative); Ketones,Urine Trace (Negative); Leukocyte Esterase,Urine Small (Negative); Nitrite,Urine Positive (Negative); PH, Urine 5.5 (5.0-8.0); Protein,Urine 1+ (Negative); RBC,Urine >182 /hpf (0-5); Specific Gravity,Urine 1.025 (1.001-1.035); Squamous Epithelial Cell,Urine 2 /hpf (0-4); Urobilinogen,Urine <2.0 mg/dL (<2.0); WBC,Urine >182 /hpf (0-5)
[2020-10-06 14:04] LABS: Basophils # (A) 0.2 k/uL (0-0.2); Basophils % (A) 2 %; Eosinophils # (A) 0.1 k/uL (0-0.7); Eosinophils % (A) 1 %; HCT 41.1 % (34.0-46.0); HGB 13.3 gm/dL (11.4-16.0); Lymphocytes # (A) 0.6 k/uL (1.0-4.8); Lymphocytes % (A) 6 %; MCH 29.2 pg (25.0-35.0); MCHC 32.3 g/dL (31.0-37.0); MCV 90.3 fL (80.0-100.0); Mean Platelet Volume 6.9; Monocytes # (A) 1.1 k/uL (0-1.0); Monocytes % (A) 11 %; Neutrophils # (A) 7.4 k/uL (1.3-7.7); Neutrophils % (A) 78 %; Platelet Count 195 k/uL (150-450); RBC 4.56 m/uL (3.80-5.40); RDW 14.8 % (11.5-15.5); WBC 9.5 k/uL (3.8-10.6)
[2020-10-06] MEDS ORDERED: NITROFURANTOIN MONOHYD/M-CRYST 100 MG CAP PO STA (14:09)
[2020-10-06 14:16] LABS: ALT 19 U/L (4-34); AST 22 U/L (14-36); African American GFR (CKD) >90 (>60 ml/min/1.73 sqM); Albumin 4.5 g/dL (3.5-5.0); Alkaline Phosphatase 102 U/L (38-126); Anion Gap 9 mmol/L; Blood Urea Nitrogen 21 mg/dL (7-17); Calcium 9.9 mg/dL (8.4-10.2); Carbon Dioxide 29 mmol/L (22-30); Chloride 103 mmol/L (98-107); Glucose 180 mg/dL (74-99); Non-African American GFR(CKD) >90 (>60 ml/min/1.73 sqM); Potassium 4.2 mmol/L (3.5-5.1); Sodium 141 mmol/L (137-145); Total Bilirubin 0.5 mg/dL (0.2-1.3)
--- NOTE | 2020-10-06 14:53 | CT ---
EXAMINATION TYPE: CT abdomen pelvis w con DATE OF EXAM: 10/06/2020 COMPARISON: 11/24/2019 HISTORY: Hematuria CT DLP: mGycm Automated exposure control for dose reduction was used. CONTRAST: Images obtained from the diaphragm to the floor the pelvis with IV contrast Isovue 100 mL. FINDINGS: The lung bases are clear. There is no pleural effusion. Heart size is normal. There is no pericardial effusion. There are clips from cholecystectomy. Liver shows no focal defect. The common bile duct is 8 mm. Spleen stomach pancreas appear intact. There is no adrenal mass. Kidneys show satisfactory contrast opacification. There is no hydronephrosi s. Delayed images show normal renal excretion. There is 2 cm cortical cyst lateral right kidney. Ther e is no retroperitoneal adenopathy. Abdominal aorta is atheromatous. There is air at the floor the pelvis apparently in the wall of the urinary bladder. There is small fl uid level in the urinary bladder. Urine in the bladder has density of 12. There is no inguinal hernia . There is no evidence of pneumoperitoneum. There is mild dilation of a few small bowel loops in the lower abdomen up to 3 cm in diameter. There is right hip nailing. There is mild thoracolumbar dextroscoliosis. There is multilevel posterio r fusion surgery in the lumbar spine. There is osteosclerosis at L1 and T12. The bony pelvis is intac t. Appendix is not seen. There is no sign of thickened appendix. There is no ascites. There is no mes enteric edema. IMPRESSION: Intramural air in the urinary bladder is quite extensive and consistent with severe emphysematous cys titis. Mild small bowel ileus.
--- NOTE | 2020-10-06 15:23 | ED ---
Female Urogenital HPI - General Chief complaint: Urogenital Stated complaint: side pain, hematuria Source: patient Mode of arrival: ambulatory Limitations: no limitations - History of Present Illness Initial comments: 80-year-old female presents with hematuria and right lower quadrant abdominal pain. Patient states that the hematuria has been present for the past 3 days. Saw her primary care physician and had a urinalysis done. States that it would be sent out for results. She was told to stop her Eliquis which she has been off of since . States that the hematuria got better and then worsens. She also developed right lower quadrant abdominal pain. No fevers or chills. Denies any nausea or vomiting. No changes in bowel habits. No vaginal bleeding. Denies previous history of any stones. - Related Data Home Medications Medication Instructions Recorded Confirmed Calcium Carb-Vit D 500Mg-5Mcg 2 tab PO DAILY 01/05/14 10/06/20 [Oscal 500+D 5 Mcg (200 Iu)] allopurinoL [Zyloprim] 100 mg PO DAILY 01/05/14 10/06/20 atenoloL [Tenormin] 50 mg PO HS 01/05/14 10/06/20 Levothyroxine Sodium [Synthroid] 12.5 mcg PO DAILY 03/16/14 10/06/20 rOPINIRole HCL [Requip] 2 - 4 mg PO HS 03/16/20 10/06/20 Alpha Lipoic Acid 600 mg PO QAM 07/03/20 10/06/20 Gabapentin [Neurontin] 300 mg PO BID 07/03/20 10/06/20 Gabapentin [Neurontin] 600 mg PO HS 07/03/20 10/06/20 Ipratropium [place] 0.06%Nasal 2 spray EA NOSTRIL BID 07/03/20 10/06/20 [Atrovent Nasal 0.06%] S-Adenosylmethionine Sul Tosyl 1,000 mg PO QAM 07/03/20 10/06/20 [Nuno-E] Biotin 5 mg PO DAILY 07/15/20 10/06/20 HYDROcodone/APAP 10-325MG [[place] 1 tab PO BID PRN 07/15/20 10/06/20 10-325] Cholecalciferol [Vitamin D3 (25 1,000 unit PO DAILY 08/07/20 10/06/20 Mcg = 1000 Iu)] Dexlansoprazole [Dexilant] 60 mg PO DAILY 08/07/20 10/06/20 methocarbamoL [Robaxin] 750 mg PO TID 08/07/20 10/06/20 DULoxetine HCL [Cymbalta] 60 mg PO DAILY 08/21/20 10/06/20 Empaglifloz/Linaglip/Metformin 1 tab PO DAILY 09/20/20 10/06/20 [Trijardy Xr 25-5-1,000 mg Tab] Apixaban [Eliquis] 5 mg PO DIRECTED 10/06/20 10/06/20 Polyethylene Glycol 3350 [Miralax] 17 gm PO DAILY PRN 10/06/20 10/06/20 Temazepam [Restoril] 15 mg PO HS PRN 10/06/20 10/06/20 Allergies Allergy/AdvReac Type Severity Reaction Status Date / Time adhesive Allergy red skin, Verified 10/06/20 15:17 blisters cefaclor [From Ceclor] Allergy Rash/Hives Verified 10/06/20 15:17 ciprofloxacin [From Cipro] Allergy Rash/Hives Verified 10/06/20 15:17 ciprofloxacin HCl Allergy Rash/Hives Verified 10/06/20 15:17 [From Cipro] hydromorphone HCl Allergy Anaphylaxis Verified 10/06/20 15:17 [From Dilaudid] Penicillins Allergy Rash/Hives Verified 10/06/20 15:17 sulfamethoxazole AdvReac Abdominal Verified 10/06/20 15:17 [From Bactrim] Pain trimethoprim [From Bactrim] AdvReac Abdominal Verified 10/06/20 15:17 Pain Review of Systems ROS Statement: Those systems with pertinent positive or pertinent negative responses have been documented in the HPI. ROS Other: All systems not noted in ROS Statement are negative. 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, VARICOSE VEINS, GOUT, LYMPHOMA (HX OF CHEMO & RADIATION 1977,1982 & 1993), hx migraines, hx ulcer, constipation, "red spots all over", states difficulty swallowing & having acid reflux., back pain-uses walker., States toenail was "cut back " yesterday 09/19/20, hammer toes. History of Any Multi-Drug Resistant Organisms: None Reported Past Surgical History: Appendectomy, Back Surgery, Breast Surgery, Cholecystectomy, Hysterectomy, Joint Replacement, Orthopedic Surgery, Tonsillectomy Additional Past Surgical History / Comment(s): RIGHT HIP REPAIR, german KNEE RE PLACEMENT, rods german thumbs and rt 3rd toe, BREAST & AXILLARY BX, TUMOR IN THROAT REMOVED., CERVICAL FUSION, LUMBAR LAMINECTOMY,DECOMPRESSION-FUSION L1-L2., recent back surgery for nerve and tendons, german cataracts Past Anesthesia/Blood Transfusion Reactions: No Reported Reaction Additional Past Anesthesia/Blood Transfusion Reaction / Comment(s): CLA USTROPHOBIA Past Psychological History: Anxiety, Depression Smoking Status: Never smoker Past Alcohol Use History: None Reported Past Drug Use History: None Reported - Past Family History Father Family Medical History: Deep Vein Thrombosis (DVT), Pulmonary Embolus Additional Family Medical History / Comment(s): Father at age 32 from pulmonary embolism. Mother Family Medical History: Cancer Additional Family Medical History / Comment(s): . Brother(s) Family Medical History: Cancer, Deep Vein Thrombosis (DVT) Additional Family Medical History / Comment(s): Patient had 2 brothers that have passed one from myocardial infarction and one from pulmonary embolism. 2 brothers are alive and one has lung cancer, one brother is alive with a brain aneurysm and CVA. General Exam Limitations: no limitations General appearance: alert, in no apparent distress Head exam: Present: atraumatic, normocephalic, normal inspection Eye exam: Present: normal appearance, PERRL, EOMI. Absent: scleral icterus, conjunctival injection, periorbital swelling ENT exam: Present: normal exam, mucous membranes moist Neck exam: Present: normal inspection. Absent: tenderness, meningismus, lymphadenopathy Respiratory exam: Present: normal lung sounds bilaterally. Absent: respiratory distress, wheezes, rales, rhonchi, stridor Cardiovascular Exam: Present: regular rate, normal rhythm, normal heart sounds. Absent: systolic murmur, diastolic murmur, rubs, gallop, clicks GI/Abdominal exam: Present: soft, tenderness (rlq), normal bowel sounds. Absent: distended, guarding, rebound, rigid Extremities exam: Present: normal inspection, full ROM, normal capillary refill. Absent: tenderness, pedal edema, joint swelling, calf tenderness Back exam: Present: normal inspection Neurological exam: Present: alert, oriented X3, CN II-XII intact Psychiatric exam: Present: normal affect, normal mood Skin exam: Present: warm, dry, intact, normal color. Absent: rash Course Vital Signs 10/06/20 10/06/20 10/06/20 12:51 13:53 14:00 Temperature 98.4 F Pulse Rate 106 H Respiratory 16 18 18 Rate Blood Pressure 146/87 O2 Sat by Pulse 97 98 Oximetry 10/06/20 10/06/20 10/06/20 15:00 16:00 17:00 Temperature 98.4 F Pulse Rate 68 89 89 Respiratory 18 18 18 Rate Blood Pressure 117/65 125/84 125/84 O2 Sat by Pulse 98 98 98 Oximetry 10/06/20 17:18 Temperature 98.4 F Pulse Rate 89 Respiratory 18 Rate Blood Pressure 125/84 O2 Sat by Pulse 98 Oximetry Medical Decision Making - Medical Decision Making Upon arrival patient is placed in room 23. A thorough history and physical exam was performed. IV is established. Laboratories is her conducted. CT is performed. Laboratory studies are reviewed. Urinalysis is positive for moderate bacteria with many white blood cell clumps and is positive for nitrites. 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 I discussed the case with Dr. Healy. The patient does have multiple drug ALLERGIES she will require admission for infectious disease consult. This is discussed the patient who agreed to be admitted. Page is out for Dr. cr for admission. Patient remained in stable condition awaiting bed - Lab Data Result diagrams: 10/09/20 04:44 10/07/20 04:58 Lab Results 10/06/20 10/06/20 10/06/20 Range/Units 13:47 13:50 13:50 WBC 9.5 (3.8-10.6) k/uL RBC 4.56 (3.80-5.40) m/uL Hgb 13.3 (11.4-16.0) gm/dL Hct 41.1 (34.0-46.0) % MCV 90.3 (80.0-100.0) fL MCH 29.2 (25.0-35.0) pg MCHC 32.3 (31.0-37.0) g/dL RDW 14.8 (11.5-15.5) % Plt Count 195 (150-450) k/uL MPV 6.9 Neutrophils % 78 % Lymphocytes % 6 % Monocytes % 11 % Eosinophils % 1 % Basophils % 2 % Neutrophils # 7.4 (1.3-7.7) k/uL Lymphocytes # 0.6 L (1.0-4.8) k/uL Monocytes # 1.1 H (0-1.0) k/uL Eosinophils # 0.1 (0-0.7) k/uL Basophils # 0.2 (0-0.2) k/uL Sodium 141 (137-145) mmol/L Potassium 4.2 (3.5-5.1) mmol/L Chloride 103 (98-107) mmol/L Carbon Dioxide 29 (22-30) mmol/L Anion Gap 9 mmol/L BUN 21 H (7-17) mg/dL Creatinine 0.52 (0.52-1.04) mg/dL Est GFR (CKD-EPI)AfAm >90 (>60 ml/min/1.73 sqM) Est GFR (CKD-EPI)NonAf >90 (>60 ml/min/1.73 sqM) Glucose 180 H (74-99) mg/dL Estimated Ave Glu mg/dL Hemoglobin A1c (4.0-6.0) % Calcium 9.9 (8.4-10.2) mg/dL Total Bilirubin 0.5 (0.2-1.3) mg/dL AST 22 (14-36) U/L ALT 19 (4-34) U/L Alkaline Phosphatase 102 (38-126) U/L Total Protein 7.0 (6.3-8.2) g/dL Albumin 4.5 (3.5-5.0) g/dL Urine Color Light Red Urine Appearance Cloudy H (Clear) Urine pH 5.5 (5.0-8.0) Ur Specific [place] 1.025 (1.001-1.035) Urine Protein 1+ H (Negative) Urine Glucose (UA) 4+ H (Negative) Urine Ketones Trace H (Negative) Urine Blood Large H (Negative) Urine Nitrite Positive H (Negative) Urine Bilirubin Negative (Negative) Urine Urobilinogen <2.0 (<2.0) mg/dL Ur Leukocyte Esterase Small H (Negative) Urine RBC >182 H (0-5) /hpf Urine WBC >182 H (0-5) /hpf Urine WBC Clumps Many H (None) /hpf Ur Squamous Epith Cells 2 (0-4) /hpf Urine Bacteria Moderate H (None) /hpf 10/06/20 Range/Units 13:50 WBC (3.8-10.6) k/uL RBC (3.80-5.40) m/uL Hgb (11.4-16.0) gm/dL Hct (34.0-46.0) % MCV (80.0-100.0) fL MCH (25.0-35.0) pg MCHC (31.0-37.0) g/dL RDW (11.5-15.5) % Plt Count (150-450) k/uL MPV Neutrophils % % Lymphocytes % % Monocytes % % Eosinophils % % Basophils % % Neutrophils # (1.3-7.7) k/uL Lymphocytes # (1.0-4.8) k/uL Monocytes # (0-1.0) k/uL Eosinophils # (0-0.7) k/uL Basophils # (0-0.2) k/uL Sodium (137-145) mmol/L Potassium (3.5-5.1) mmol/L Chloride (98-107) mmol/L Carbon Dioxide (22-30) mmol/L Anion Gap mmol/L BUN (7-17) mg/dL Creatinine (0.52-1.04) mg/dL Est GFR (CKD-EPI)AfAm (>60 ml/min/1.73 sqM) Est GFR (CKD-EPI)NonAf (>60 ml/min/1.73 sqM) Glucose (74-99) mg/dL Estimated Ave Glu mg/dL 177 Hemoglobin A1c 7.8 H (4.0-6.0) % Calcium (8.4-10.2) mg/dL Total Bilirubin (0.2-1.3) mg/dL AST (14-36) U/L ALT (4-34) U/L Alkaline Phosphatase (38-126) U/L Total Protein (6.3-8.2) g/dL Albumin (3.5-5.0) g/dL Urine Color Urine Appearance (Clear) Urine pH (5.0-8.0) Ur Specific [place] (1.001-1.035) Urine Protein (Negative) Urine Glucose (UA) (Negative) Urine Ketones (Negative) Urine Blood (Negative) Urine Nitrite (Negative) Urine Bilirubin (Negative) Urine Urobilinogen (<2.0) mg/dL Ur Leukocyte Esterase (Negative) Urine RBC (0-5) /hpf Urine WBC (0-5) /hpf Urine WBC Clumps (None) /hpf Ur Squamous Epith Cells (0-4) /hpf Urine Bacteria (None) /hpf Disposition Clinical Impression: UTI (urinary tract infection), Emphysematous cystitis Disposition: ADMITTED IP TO THIS [facility] Condition: Stable Is patient prescribed a controlled substance at d/c from ED?: No Decision to Admit Reason: Admit from EC Decision Date: 10/06/20 Decision Time: 15:24
[2020-10-06] MEDS ORDERED: NALOXONE 0.4 MG/ML 1 ML VIAL IV PRN (15:25)
[2020-10-06] MEDS ORDERED: ACETAMINOPHEN TAB 325 MG TAB PO PRN (15:25)
[2020-10-06] MEDS ORDERED: GENTAMICIN PER PHARMACY MISCELLANE SCH (15:45)
[2020-10-06] MEDS: SODIUM CHLORIDE 0.9% 1,000 ML IV SCH (16:05)
[2020-10-06] MEDS: AZTREONAM 2 GM in SODIUM CHLORIDE 0.9% 100 ML IVPB SCH ×2 (17:28→23:57)
[2020-10-06 17:49] LABS: Glucose,Whole Blood 112 mg/dL (75-99)
[2020-10-06 20:50] LABS: Glucose,Whole Blood 188 mg/dL (75-99)
[2020-10-06] MEDS ORDERED: TEMAZEPAM 15 MG CAP PO PRN (21:36)
[2020-10-06] MEDS ORDERED: HYDROcodone/APAP 10-325MG 1 EACH TAB PO PRN (21:36)
[2020-10-06] MEDS: atenoloL 50 MG TAB PO SCH (22:21)
[2020-10-06] MEDS: methocarbamoL 750 MG TAB PO SCH (22:21)
[2020-10-06] MEDS: GABAPENTIN 300 MG CAP PO SCH (22:21)
[2020-10-07] MEDS: LEVOTHYROXINE 25 MCG TAB PO SCH (05:57)
--- NOTE | 2020-10-07 07:10 | CONS ---
CONSULTATION DATE OF SERVICE: 10/06/2020 REASON FOR CONSULTATION: Emphysematous cystitis and multiple antibiotic allergies. HISTORY OF PRESENT ILLNESS: The patient is a 80-year-old female who presented to the hospital with lower abdominal pain and hematuria in this patient whose symptoms started on , 3 days before presentation to the hospital. The patient started having hematuria. The patient was advised to stop taking her Eliquis, which the patient did. The patient mentioned some improvement in the hematuria initially. However, her symptoms persisted and she started having pain in the lower abdominal area. Patient described the pain to be more of a dull aching to sharp, 4-5/10, no radiation. The patient denies having any vomiting. Did have mild nausea. No diarrhea. No constipation. No chest pain, shortness of breath or cough. With these symptoms, the patient was evaluated by the ER physician. On arrival to the ER, the patient has been afebrile. The patient did have a normal white count. Did have a positive UA which was cloudy, small leukocyte esterase, more than 1-2 WBC. Urine cultures currently pending. The patient did have a CT of abdomen and pelvis with evidence of emphysematous cystitis. The patient was started on gentamicin because of her multiple antibiotic allergies. Infectious Disease was consulted for further management of antibiotic therapy. REVIEW OF SYSTEMS: Positive points have been mentioned in HPI. Rest of systems are negative. PAST MEDICAL HISTORY: Diabetes mellitus, DVT, gastroesophageal reflux disease, hypertension, hyperlipidemia, ____, syncope, hypothyroidism. PAST SURGICAL HISTORY: Appendectomy, back surgery, cholecystectomy, hysterectomy, tonsillectomy, right hip repair. SOCIAL HISTORY: Denies smoking, drinking or drug use. FAMILY HISTORY: Father with history for DVT and PE. Mother with history of cancer. ALLERGIES: MULTIPLE MEDICATIONS INCLUDING CECLOR, CIPROFLOXACIN, PENICILLIN AND BACTRIM. MEDICATIONS: The patient is currently on Tylenol, [place], Zyloprim, Tenormin, Oscal-D, Cymbalta, Neurontin, Levoxyl, Narcan, Protonix, Requip and gentamicin, Pharmacy to dose. PHYSICAL EXAMINATION: VITAL SIGNS: Blood pressure 125/84 with a pulse of 89, temperature 98.4, she is 98% on room air. GENERAL DESCRIPTION: Patient is an elderly female lying in bed in no distress. No tachypnea or accessory muscles of respiration use. HEENT: Examination shows no pallor or scleral icterus. Oral mucous membrane is dry. NECK: Trachea central, no thyromegaly. LUNGS: Unlabored breathing, decreased intensity of the breath sounds. No wheeze. HEART: S1-S2, regular rate and rhythm. ABDOMEN: Soft, no tenderness. No guarding or rigidity. EXTREMITIES: No edema of the feet. SKIN: No rash or mass palpable. NEUROLOGICAL: Patient is awake, alert, oriented. Mood and affect normal. LABS: Hemoglobin is 9.5, BUN of 21, creatinine 0.52. Electrolytes have been normal. Liver enzymes are normal. Urine is positive. DIAGNOSTIC IMPRESSION: 1. Patient admitted to the hospital with abdominal pain, hematuria in this patient who has evidence of emphysematous cystitis on the CT. 2. Patient did have multiple antibiotic allergies that will limit the number of antibiotics safe to use. PLAN: 1. Discontinue gentamicin to decrease risk of nephrotoxicity. 2. Start the patient on Azactam 2 grams q.8 hours. 3. We will follow on clinical condition and culture to further adjust medication if needed. Thank you for this consultation. Will follow this patient along with you. MMODL / IJN: [id number] /
[2020-10-07 07:15] LABS: Glucose,Whole Blood 155 mg/dL (75-99)
[2020-10-07] MEDS: allopurinoL 100 MG TAB PO SCH (08:12)
[2020-10-07] MEDS: PANTOPRAZOLE 40 MG TABLET PO SCH (08:12)
[2020-10-07] MEDS: GABAPENTIN 300 MG CAP PO SCH ×3 (08:12→21:34)
[2020-10-07] MEDS: methocarbamoL 750 MG TAB PO SCH ×3 (08:12→21:31)
[2020-10-07] MEDS: CALCIUM CARB-VIT D 500 MG-5 MCG TAB PO SCH (08:13)
[2020-10-07] MEDS: DULoxetine HCL 60 MG CAPSULE.DR PO SCH (08:13)
[2020-10-07] MEDS: [UNRECOGNIZED DRUG - OTHER] PO SCH (08:14)
[2020-10-07] MEDS: AZTREONAM 2 GM in SODIUM CHLORIDE 0.9% 100 ML IVPB SCH ×3 (08:14→23:43)
[2020-10-07] MEDS ORDERED: NON FORMULARY DRUG (Biotin [Biotin] 5 MG Capsule) PO SCH (09:00)
[2020-10-07 09:41] LABS: African American GFR (CKD) 101.2 (60.0-200.0); Anion Gap 12.6 mmol/L (4.00-12.00); Calcium 9.6 mg/dL (8.7-10.3); Carbon Dioxide 24.4 mmol/L (21.6-31.8); Non-African American GFR(CKD) 87.3 (60.0-200.0); Potassium 4.1 mmol/L (3.5-5.5)
[2020-10-07 09:50] LABS: HCT 36.5 % (37.2-46.3); MCH 33.9 pg (27.0-32.0); MCHC 35.6 g/dL (32.0-37.0); MCV 95.3 fL (80.0-97.0); Mean Platelet Volume 9.7 fL (9.5-12.2); Platelet Count 190 X 10*3/uL (140-440); RBC 3.83 X 10*6/uL (4.10-5.20); RDW 14.7 % (11.5-14.5); WBC 7.86 X 10*3/uL (4.50-10.00)
[2020-10-07 11:09] LABS: Basophils # (M) 0 X 10*3/uL (0.00-0.10); Eosinophils # (M) 0 X 10*3/uL (0.04-0.35); Metamyelocytes % 3 % (0-0); Monocytes # (M) 0.79 X 10*3/uL (0.20-1.00); Myelocytes % 5 % (0-0); Neutrophils # (M) 5.34 X 10*3/uL (2.00-8.90); Neutrophils % (M) 68 %
[2020-10-07] MEDS: SODIUM CHLORIDE 0.9% 1,000 ML IV SCH ×2 (11:55→15:20)
[2020-10-07 12:28] LABS: Glucose,Whole Blood 211 mg/dL (75-99)
--- NOTE | 2020-10-07 12:43 | P.HPIM ---
History of Present Illness H&P Date: 10/07/20 Chief Complaint: Abdominal pain HISTORY OF PRESENT ILLNESS This is a 80-year-old female one of Dr. Rocha patient with past medical history of type 2 diabetes, non-Hodgkin's lymphoma [place] [address] Monaco and follows with Dr. Aranda status post chemotherapy and radiation therapy, TIA 5 years ago, hypertension, hyperlipidemia, hypertension, hypothyroidism, restless leg syndrome, recurrent depression, and osteoarthritis who has been treated for lower back pain post multiple lower back surgery and epidural injection with pain management at [facility], previous admission for acute GI bleed and acute blood loss anemia status post EGD and colonoscopy which revealed antral gastritis, area of ulceration, nonbleeding, in the distal transverse colon, pulmonary embolism and left lower leg DVT diagnosed 03/08/2020 on eliquis. She recently underwent revision T12-L2 fusion and decompression in in March 2020. She has been to [facility] in the past for subacute rehab. She was in [facility] for subacute rehab and was recently discharged approximately one week ago. Patient presents with complaints of lower back pain with radiation down bilateral legs. She's been placed on the observation unit and seen by orthopedic spine with the following changes made: Added prednisone 5 mg daily, increase gabapentin, change Tylenol No. 3 to Elizabeth. We will add in physical therapy and monitor for pain control and if improved by tomorrow, discharge home. On September 25, patient underwent EGD for intermittent dysphagia, throat fullness and passive regurgitation with Dr. Cho that found retained food in the stomach suggestive gastroparesis with no evidence of gastric outlet obstruction. Mild antral gastritis. Normal-appearing esophagus with no evidence of esophagitis or esophageal stricture. Patient complains of hematuria for 3 days and saw her PCP. Patient was instructed to hold eliquis and she has been off since last . Patient was having hematuria and right lower quadrant abdominal pain. No fever or chills. No nausea vomiting. No changes in bowel habits. No blood in her stools. No vaginal bleeding. Patient presented to [facility] emergency center for evaluation. Patient was afebrile, heart rate 106, blood pressure 146/87, pulse ox 97% on room air. CBC was unremarkable with hemoglobin of 13.3. Electrolytes were normal. BUN 21 and creatinine 0.52. Blood sugar 180. Urinalysis cloudy, blood large, nitrate positive, and RBCs greater than 182, W BC greater than 182, W BC clumps many, bacteria moderate. CAT scan of the abdomen and pelvis with contrast revealed intramural air in the urinary bladder extensive and consistent with severe emphysematous cystitis. Mild small bowel ileus. Patient was given 500 ML's of IV fluids, fentanyl IV push and Macrodantin 1 dose. Patient was ad mitted to the [facility] floor and consult with infectious disease. Patient was started on Azactam 2 g IV piggyback every 8 hours. Urine culture from October 03 is E. coli pansensitive. Repeat urine culture is in progress from October 06. REVIEW OF SYSTEMS Constitutional: No fever, no chills, no night sweats. No weight change. Reports weakness, reports fatigue denies lethargy. No daytime sleepiness. EENT: No headache. No blurred vision or double vision, no loss of vision. No loss of Hearing, no ringing in the ears, Reports dizziness. No nasal drainage or congestion. No epistaxis. No sore throat. Lungs: Denies shortness of breath, cough, no sputum production. No wheezing. Cardiovascular: No chest pain, no left lower extremity edema. No palpitations. No paroxysmal nocturnal dyspnea. No orthopnea. No lightheadedness or dizziness. No syncopal episodes. Abdominal: No abdominal pain. No nausea, vomiting. No diarrhea. No constipation. No bloody or tarry stools.. No loss of appetite. Genitourinary: No dysuria, increased frequency, urgency. No urinary retention. Reports incontinence, loss of bladder control Musculoskeletal: No myalgias. Reports muscle weakness, reports gait dysfunction, reports 2 falls. Reports back pain. No neck pain. Integumentary: No wounds, no lesions. No rash or pruritus. No unusual bruising. No change in hair or nails. Neurologic: No aphasia. No facial droop. No change in mentation. No head injury. No headache. No paralysis. No paresthesia. Psychiatric: No depression. No anxiety. No mood swings. Endocrine: No abnormal blood sugars. SOCIAL HISTORY Patient is a lifelong nonsmoker. No alcohol use, marijuana use, illicit drug use. 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 Patient lives alone with her daughter. She ambulates with a walker. She has been at [facility] for [facility] rehab in the past. FAMILY HISTORY Mother in her late 80s from breast cancer and dementia. Father at age 32 from pulmonary embolism and DVT. Patient has 2 brothers and a past, one from myocardial infarction and one from pulmonary embolism. 2 brothers are alive and one has lung cancer and one living brother has a brain aneurysm and CVA. Patient has 5 biological children with no major medical problems. PHYSICAL EXAMINATION Gen: This is A 80-year-old female. Patient is resting in bed appears to be comfortable and in no acute distress. No respiratory distress is noted. HEENT: Head is atraumatic, normocephalic. Pupils equal, round. Sclerae is anicteric. NECK: Supple. No JVD. No lymphadenopathy. No thyromegaly. LUNGS: Clear to auscultation. No wheezes or rhonchi. No intercostal retractions. HEART: Regular rate and rhythm. No murmur. ABDOMEN: Soft. Bowel sounds are present. No masses. Mild right lower quadrant tenderness. BACK: Surgical wound is healed. No drainage, erythema. No deformity noted. EXTREMITIES: No pedal edema. No calf tenderness. Dorsalis pedis palpable bilaterally. Left foot drop. NEUROLOGICAL: Patient is awake, alert and oriented x3. Cranial nerves 2 through 12 are grossly intact. ASSESSMENT AND PLAN 1. Acute urinary tract infection. Consult with Dr. Jesus valencia. Patient is on Azactam 2 g IV piggyback every 8 hours. Repeat urine culture in progress. 2. Hemorrhagic cystitis. Eliquis is on hold. 3. 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 Continue gabapentin 300 mg twice daily and 600 at bedtime. 4. Right lower lobe pulmonary embolism. Eliquis 5 mg twice daily on hold. 5. Diabetes mellitus type 2. Recheck Hemoglobin A1c. Patient will be on NovoLog scale before meals and at bedtime. 6. Non-Hodgkin's lymphoma [place] [address] Monaco and follows with Dr. Aranda, in remission. 7. History of TIA with no deficits. 8. History of GI bleed secondary to colon ulcer in November 2019 without recurrence. Continue Protonix. 9. Hypertension. Hold amlodipine 5 mg daily, continue atenolol 50 mg twice daily. 10. Hypothyroidism. Continue levothyroxine 12.5 g daily. 11. Seasonal ALLERGIES. Continue Singulair 10 mg at bedtime. 12. Recurrent depression. Continue Prozac 30 mg daily. 13. Chronic gout. Continue allopurinol 100 mg daily. 14. Hyperlipidemia. Patient is not currently on statin. 15. Restless leg syndrome. Continue Requip. 16. GERD and GI prophylaxis. Protonix Patient admitted to the hospital for a minimum of 2 night stay. Discharge plan: Probably home with outpatient physical therapy. Impression and plan of care have been directed as dictated by the signing physician. Karen Quintero nurse practitioner acting as scribe for signing physician. 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, VARICOSE VEINS, GOUT, LYMPHOMA (HX OF CHEMO & RADIATION 1977,1982 & 1993), hx migraines, hx ulcer, constipation, "red spots all over", states difficulty swallowing & having acid reflux., back pain-uses walker., States toenail was "cut back " yesterday 09/19/20, hammer toes. History of Any Multi-Drug Resistant Organisms: None Reported Past Surgical History: Appendectomy, Back Surgery, Breast Surgery, Cholecyst ectomy, Hysterectomy, Joint Replacement, Orthopedic Surgery, Tonsillectomy Additional Past Surgical History / Comment(s): RIGHT HIP REPAIR, german KNEE REPLACEMENT, rods german thumbs and rt 3rd toe, BREAST & AXILLARY BX, TUMOR IN THROAT REMOVED., CERVICAL FUSION, LUMBAR LAMINECTOMY,DECOMPRESSION-FUSION L1- L2., recent back surgery for nerve and tendons, german cataracts Past Anesthesia/Blood Transfusion Reactions: No Reported Reaction Additional Past Anesthesia/Blood Transfusion Reaction / Comment(s): CLAUSTROPHOBIA Past Psychological History: Anxiety, Depression Additional Psychological History / Comment(s): (end of 2019) Smoking Status: Never smoker Past Alcohol Use History: None Reported Additional Past Alcohol Use History / Comment(s): . Past Drug Use History: None Reported - Past Family History Father Family Medical History: Deep Vein Thrombosis (DVT), Pulmonary Embolus Additional Family Medical History / Comment(s): Father at age 32 from pulmonary embolism. Mother Family Medical History: Cancer Additional Family Medical History / Comment(s): . Brother(s) Family Medical History: Cancer, Deep Vein Thrombosis (DVT) Additional Family Medical History / Comment(s): Patient had 2 brothers that have passed one from myocardial infarction and one from pulmonary embolism. 2 brothers are alive and one has lung cancer, one brother is alive with a brain aneurysm and CVA. Medications and Allergies Home Medications Medication Instructions Recorded Confirmed Type Calcium Carb-Vit D 500Mg-5Mcg 2 tab PO DAILY 01/05/14 10/06/20 History [Oscal 500+D 5 Mcg (200 Iu)] allopurinoL [Zyloprim] 100 mg PO DAILY 01/05/14 10/06/20 History atenoloL [Tenormin] 50 mg PO HS 01/05/14 10/06/20 History Levothyroxine Sodium [Synthroid] 12.5 mcg PO DAILY 03/16/14 10/06/20 History rOPINIRole HCL [Requip] 2 - 4 mg PO HS 03/16/20 10/06/20 History Alpha Lipoic Acid 600 mg PO QAM 07/03/20 10/06/20 History Gabapentin [Neurontin] 300 mg PO BID 07/03/20 10/06/20 History Gabapentin [Neurontin] 600 mg PO HS 07/03/20 10/06/20 History Ipratropium [place] 0.06%Nasal 2 spray EA NOSTRIL BID 07/03/20 10/06/20 History [Atrovent Nasal 0.06%] S-Adenosylmethionine Sul Tosyl 1,000 mg PO QAM 07/03/20 10/06/20 History [Nuno-E] Biotin 5 mg PO DAILY 07/15/20 10/06/20 History HYDROcodone/APAP 10-325MG [[place] 1 tab PO BID PRN 07/15/20 10/06/20 History 10-325] Cholecalciferol [Vitamin D3 (25 1,000 unit PO DAILY 08/07/20 10/06/20 History Mcg = 1000 Iu)] Dexlansoprazole [Dexilant] 60 mg PO DAILY 08/07/20 10/06/20 History methocarbamoL [Robaxin] 750 mg PO TID 08/07/20 10/06/20 History DULoxetine HCL [Cymbalta] 60 mg PO DAILY 08/21/20 10/06/20 History Empaglifloz/Linaglip/Metformin 1 tab PO DAILY 09/20/20 10/06/20 History [Trijardy Xr 25-5-1,000 mg Tab] Apixaban [Eliquis] 5 mg PO DIRECTED 10/06/20 10/06/20 History Polyethylene Glycol 3350 [Miralax] 17 gm PO DAILY PRN 10/06/20 10/06/20 History Temazepam [Restoril] 15 mg PO HS PRN 10/06/20 10/06/20 History Allergies Allergy/AdvReac Type Severity Reaction Status Date / Time adhesive Allergy red skin, Verified 10/06/20 15:17 blisters cefaclor [From Ceclor] Allergy Rash/Hives Verified 10/06/20 15:17 ciprofloxacin [From Cipro] Allergy Rash/Hives Verified 10/06/20 15:17 ciprofloxacin HCl Allergy Rash/Hives Verified 10/06/20 15:17 [From Cipro] hydromorphone HCl Allergy Anaphylaxis Verified 10/06/20 15:17 [From Dilaudid] Penicillins Allergy Rash/Hives Verified 10/06/20 15:17 sulfamethoxazole AdvReac Abdominal Verified 10/06/20 15:17 [From Bactrim] Pain trimethoprim [From Bactrim] AdvReac Abdominal Verified 10/06/20 15:17 Pain Physical Exam Vitals: Vital Signs Temp Pulse Pulse Resp BP BP Pulse Ox 10/07/20 05:00 97.7 F 88 20 130/86 97 10/06/20 20:00 98.1 F 98 20 104/72 93 L 10/06/20 17:18 98.4 F 89 18 125/84 98 10/06/20 17:00 98.4 F 89 18 125/84 98 10/06/20 16:00 89 18 125/84 98 10/06/20 15:00 68 18 117/65 98 10/06/20 14:00 18 98 10/06/20 13:53 18 10/06/20 12:51 98.4 F 106 H 16 146/87 97 Intake and Output 10/06/20 10/07/20 10/07/20 22:59 06:59 14:59 Intake Total 350 Balance 350 Intake: Intake, IV Titration 350 Amount Aztreonam 2 gm In Sodium 100 Chloride 0.9% 100 ml @ 33 .3 mls/hr IVPB Q8HR [facility] Rx#:[id number] Sodium Chloride 0.9% 1, 250 000 ml @ 50 mls/hr IV . Q20H [facility] Rx#:[id number] Other: Voiding Method Toilet # Voids 0 3 Weight 62.596 kg Results CBC & Chem 7: 10/07/20 04:58 10/07/20 04:58 Labs: Abnormal Lab Results - Last 24 Hours (Table) 10/06/20 10/06/20 10/06/20 Range/Units 13:47 13:50 13:50 Lymphocytes # 0.6 L (1.0-4.8) k/uL Monocytes # 1.1 H (0-1.0) k/uL BUN 21 H (7-17) mg/dL Glucose 180 H (74-99) mg/dL POC Glucose (mg/dL) (75-99) mg/dL Urine Appearance Cloudy H (Clear) Urine Protein 1+ H (Negative) Urine Glucose (UA) 4+ H (Negative) Urine Ketones Trace H (Negative) Urine Blood Large H (Negative) Urine Nitrite Positive H (Negative) Ur Leukocyte Esterase Small H (Negative) Urine RBC >182 H (0-5) /hpf Urine WBC >182 H (0-5) /hpf Urine WBC Clumps Many H (None) /hpf Urine Bacteria Moderate H (None) /hpf 10/06/20 10/06/20 10/07/20 Range/Units 17:48 20:35 07:13 Lymphocytes # (1.0-4.8) k/uL Monocytes # (0-1.0) k/uL BUN (7-17) mg/dL Glucose (74-99) mg/dL POC Glucose (mg/dL) 112 H 188 H 155 H (75-99) mg/dL Urine Appearance (Clear) Urine Protein (Negative) Urine Glucose (UA) (Negative) Urine Ketones (Negative) Urine Blood (Negative) Urine Nitrite (Negative) Ur Leukocyte Esterase (Negative) Urine RBC (0-5) /hpf Urine WBC (0-5) /hpf Urine WBC Clumps (None) /hpf Urine Bacteria (None) /hpf Microbiology - Last 24 Hours (Table) 10/06/20 13:47 Urine Culture - Preliminary Urine,Voided Thrombosis Risk Factor Assmnt - Choose All That Apply Any of the Below Risk Factors Present?: Yes Each Factor Represents 1 point: Obesity (BMI >25) Other Risk Factors: Yes Each Risk Factor Represents 3 Points: Age 75 years or older Other congenital or acquired thrombophilia - If yes, enter type in comment: No Thrombosis Risk Factor Assessment Total Risk Factor Score: 4 Thrombosis Risk Factor Assessment Level: Moderate Risk
[2020-10-07] MEDS ORDERED: HYDROcodone/APAP 10-325MG 1 EACH TAB PO SCH (15:15)
[2020-10-07] MEDS: HYDROcodone/APAP 10-325MG 1 EACH TAB PO PRN ×2 (15:18→23:42)
[2020-10-07 17:23] LABS: Glucose,Whole Blood 176 mg/dL (75-99)
[2020-10-07] MEDS: INSULIN ASPART (NovoLOG) 100 UNIT/ML VIAL SQ SCH ×2 (17:37→21:34)
--- NOTE | 2020-10-07 21:07 | P.GSCN ---
History of Present Illness Consult date: 10/07/20 Reason for Consult: Emphysematous cystitis Requesting physician: Laureen Bautista History of present illness: The patient is a 80-year-old white female with an unremarkable urologic history. Her most recent UTI was more than 5 years ago. On 10/03/2020 she began to experience right lower quadrant and suprapubic abdominal pain, associated with hematuria and pneumaturia. She denies dysuria and fecaluria. Her symptoms w orsened, and she subsequently presented to the emergency room and was admitted. Urinalysis was consistent with a UTI, and a CT scan shows extensive emphysematous cystitis. The urine culture obtained on October 03 shows greater than 100,000 pansensitive E. coli. It is noteworthy that colonoscopy in November 2019 showed multiple small diverticuli in the left colon. Review of Systems - Constitutional Denies chills, Denies fever - Gastrointestinal Denies nausea, Denies vomiting - Genitourinary Genitourinary: Reports hematuria, Denies dysuria Past Medical History Past Medical History: Cancer, Diabetes Mellitus, Deep Vein Thrombosis (DVT), GE RD/Reflux, Hyperlipidemia, Hypertension, Osteoarthritis (OA), Pulmonary Embolus (PE), Skin Disorder, Syncope, Thyroid Disorder Additional Past Medical History / Comment(s): TIA X2-no residual effects, VARICOSE VEINS, GOUT, LYMPHOMA (HX OF CHEMO & RADIATION 1977,1982 & 1993), hx migraines, hx ulcer, constipation, "red spots all over", states difficulty swallowing & having acid reflux., back pain-uses walker., States toenail was "cut back " yesterday 09/19/20, hammer toes. History of Any Multi-Drug Resistant Organisms: None Reported Past Surgical History: Appendectomy, Back Surgery, Breast Surgery, Cholecystectomy, Hysterectomy, Joint Replacement, Orthopedic Surgery, Tonsillectomy Additional Past Surgical History / Comment(s): RIGHT HIP REPAIR, german KNEE REPLACEMENT, rods german thumbs and rt 3rd toe, BREAST & AXILLARY BX, TUMOR IN THROAT REMOVED., CERVICAL FUSION, LUMBAR LAMINECTOMY,DECOMPRESSION-FUSION L1- L2., recent back surgery for nerve and tendons, german cataracts Past Anesthesia/Blood Transfusion Reactions: No Reported Reaction Additional Past Anesthesia/Blood Transfusion Reaction / Comm: CLAUSTROPHOBIA Past Psychological History: Anxiety, Depression Additional Psychological History / Comment(s): (end of 2019) Smoking Status: Never smoker Past Alcohol Use History: None Reported Additional Past Alcohol Use History / Comment(s): . Past Drug Use History: None Reported - Past Family History Father Family Medical History: Deep Vein Thrombosis (DVT), Pulmonary Embolus Additional Family Medical History / Comment(s): Father at age 32 from pulmonary embolism. Mother Family Medical History: Cancer Additional Family Medical History / Comment(s): . Brother(s) Family Medical History: Cancer, Deep Vein Thrombosis (DVT) Additional Family Medical History / Comment(s): Patient had 2 brothers that have passed one from myocardial infarction and one from pulmonary embolism. 2 brothers are alive and one has lung cancer, one brother is alive with a brain aneurysm and CVA. Medications and Allergies Home Medications Medication Instructions Recorded Confirmed Type Calcium Carb-Vit D 500Mg-5Mcg 2 tab PO DAILY 01/05/14 10/06/20 History [Oscal 500+D 5 Mcg (200 Iu)] allopurinoL [Zyloprim] 100 mg PO DAILY 01/05/14 10/06/20 History atenoloL [Tenormin] 50 mg PO HS 01/05/14 10/06/20 History Levothyroxine Sodium [Synthroid] 12.5 mcg PO DAILY 03/16/14 10/06/20 History rOPINIRole HCL [Requip] 2 - 4 mg PO HS 03/16/20 10/06/20 History Alpha Lipoic Acid 600 mg PO QAM 07/03/20 10/06/20 History Gabapentin [Neurontin] 300 mg PO BID 07/03/20 10/06/20 History Gabapentin [Neurontin] 600 mg PO HS 07/03/20 10/06/20 History Ipratropium [place] 0.06%Nasal 2 spray EA NOSTRIL BID 07/03/20 10/06/20 History [Atrovent Nasal 0.06%] S-Adenosylmethionine Sul Tosyl 1,000 mg PO QAM 07/03/20 10/06/20 History [Nuno-E] Biotin 5 mg PO DAILY 07/15/20 10/06/20 History HYDROcodone/APAP 10-325MG [[place] 1 tab PO BID PRN 07/15/20 10/06/20 History 10-325] Cholecalciferol [Vitamin D3 (25 1,000 unit PO DAILY 08/07/20 10/06/20 History Mcg = 1000 Iu)] Dexlansoprazole [Dexilant] 60 mg PO DAILY 08/07/20 10/06/20 History methocarbamoL [Robaxin] 750 mg PO TID 08/07/20 10/06/20 History DULoxetine HCL [Cymbalta] 60 mg PO DAILY 08/21/20 10/06/20 History Empaglifloz/Linaglip/Metformin 1 tab PO DAILY 09/20/20 10/06/20 History [Trijardy Xr 25-5-1,000 mg Tab] Apixaban [Eliquis] 5 mg PO DIRECTED 10/06/20 10/06/20 History Polyethylene Glycol 3350 [Miralax] 17 gm PO DAILY PRN 10/06/20 10/06/20 History Temazepam [Restoril] 15 mg PO HS PRN 10/06/20 10/06/20 History Allergies Allergy/AdvReac Type Severity Reaction Status Date / Time adhesive Allergy red skin, Verified 10/06/20 15:17 blisters cefaclor [From Ceclor] Allergy Rash/Hives Verified 10/06/20 15:17 ciprofloxacin [From Cipro] Allergy Rash/Hives Verified 10/06/20 15:17 ciprofloxacin HCl Allergy Rash/Hives Verified 10/06/20 15:17 [From Cipro] hydromorphone HCl Allergy Anaphylaxis Verified 10/06/20 15:17 [From Dilaudid] Penicillins Allergy Rash/Hives Verified 10/06/20 15:17 sulfamethoxazole AdvReac Abdominal Verified 10/06/20 15:17 [From Bactrim] Pain trimethoprim [From Bactrim] AdvReac Abdominal Verified 10/06/20 15:17 Pain Surgical - Exam Vital Signs Temp Pulse Resp BP Pulse Ox 98.4 F 106 H 16 146/87 97 10/06/20 12:51 10/06/20 12:51 10/06/20 12:51 10/06/20 12:51 10/06/20 12:51 - General well developed, well nourished, no distress - Neck no masses, trachea midline - Respiratory normal respiratory effort - Abdomen Abdomen: soft, tender (Mild suprapubic tenderness to palpation), no guarding, no rigid, no rebound, no distended - Psychiatric oriented to time, oriented to person, oriented to place, speech is normal, memory intact Results - Labs 10/07/20 04:58 10/07/20 04:58 Abnormal Lab Results - Last 24 Hours (Table) 10/06/20 10/06/20 10/06/20 Range/Units 13:47 13:50 13:50 Lymphocytes # 0.6 L (1.0-4.8) k/uL Monocytes # 1.1 H (0-1.0) k/uL BUN 21 H (7-17) mg/dL Glucose 180 H (74-99) mg/dL POC Glucose (mg/dL) (75-99) mg/dL Urine Appearance Cloudy H (Clear) Urine Protein 1+ H (Negative) Urine Glucose (UA) 4+ H (Negative) Urine Ketones Trace H (Negative) Urine Blood Large H (Negative) Urine Nitrite Positive H (Negative) Ur Leukocyte Esterase Small H (Negative) Urine RBC >182 H (0-5) /hpf Urine WBC >182 H (0-5) /hpf Urine WBC Clumps Many H (None) /hpf Urine Bacteria Moderate H (None) /hpf 10/06/20 10/06/20 10/07/20 Range/Units 17:48 20:35 07:13 Lymphocytes # (1.0-4.8) k/uL Monocytes # (0-1.0) k/uL BUN (7-17) mg/dL Glucose (74-99) mg/dL POC Glucose (mg/dL) 112 H 188 H 155 H (75-99) mg/dL Urine Appearance (Clear) Urine Protein (Negative) Urine Glucose (UA) (Negative) Urine Ketones (Negative) Urine Blood (Negative) Urine Nitrite (Negative) Ur Leukocyte Esterase (Negative) Urine RBC (0-5) /hpf Urine WBC (0-5) /hpf Urine WBC Clumps (None) /hpf Urine Bacteria (None) /hpf Microbiology - Last 24 Hours (Table) 10/06/20 13:47 Urine Culture - Preliminary Urine,Voided Diabetes panel 10/06/20 Range/Units 13:50 Sodium 141 (137-145) mmol/L Potassium 4.2 (3.5-5.1) mmol/L Chloride 103 (98-107) mmol/L Carbon Dioxide 29 (22-30) mmol/L BUN 21 H (7-17) mg/dL Creatinine 0.52 (0.52-1.04) mg/dL Glucose 180 H (74-99) mg/dL Calcium 9.9 (8.4-10.2) mg/dL AST 22 (14-36) U/L ALT 19 (4-34) U/L Alkaline Phosphatase 102 (38-126) U/L Total Protein 7.0 (6.3-8.2) g/dL Albumin 4.5 (3.5-5.0) g/dL Calcium panel 10/06/20 Range/Units 13:50 Calcium 9.9 (8.4-10.2) mg/dL Albumin 4.5 (3.5-5.0) g/dL Pituitary panel 10/06/20 Range/Units 13:50 Sodium 141 (137-145) mmol/L Potassium 4.2 (3.5-5.1) mmol/L Chloride 103 (98-107) mmol/L Carbon Dioxide 29 (22-30) mmol/L BUN 21 H (7-17) mg/dL Creatinine 0.52 (0.52-1.04) mg/dL Glucose 180 H (74-99) mg/dL Calcium 9.9 (8.4-10.2) mg/dL Adrenal panel 10/06/20 Range/Units 13:50 Sodium 141 (137-145) mmol/L Potassium 4.2 (3.5-5.1) mmol/L Chloride 103 (98-107) mmol/L Carbon Dioxide 29 (22-30) mmol/L BUN 21 H (7-17) mg/dL Creatinine 0.52 (0.52-1.04) mg/dL Glucose 180 H (74-99) mg/dL Calcium 9.9 (8.4-10.2) mg/dL Total Bilirubin 0.5 (0.2-1.3) mg/dL AST 22 (14-36) U/L ALT 19 (4-34) U/L Alkaline Phosphatase 102 (38-126) U/L Total Protein 7.0 (6.3-8.2) g/dL Albumin 4.5 (3.5-5.0) g/dL - Imaging CT scan - pelvis: report reviewed, image reviewed Assessment and Plan (1) Emphysematous cystitis Current Visit: Yes Status: Acute Code(s): N30.80 - OTHER CYSTITIS WITHOUT HEMATURIA SNOMED Code(s): 95901093 Plan: I had a lengthy discussion with Mrs. Pan. I explained to her that emphysematous cystitis occurs predominantly in diabetic patients with UTIs. I would suggest she be treated with a 14 day course of antibiotics, and follow-up urinalysis should be obtained to confirm resolution of her UTI. If the pneumaturia persists, further evaluation would be warranted. She is urologically stable for discharge as long as her symptoms are not intractable and requiring parenteral analgesics. Time with Patient: Greater than 30
[2020-10-07 21:18] LABS: Glucose,Whole Blood 198 mg/dL (75-99)
[2020-10-07] MEDS: atenoloL 50 MG TAB PO SCH (21:28)
--- NOTE | 2020-10-08 03:41 | PN ---
PROGRESS NOTE DATE OF SERVICE: 10/07/2020 REASON FOR FOLLOWUP: Urinary tract infection and MULTIPLE ANTIBIOTIC ALLERGIES. INTERVAL HISTORY: The patient is currently afebrile. The patient is breathing comfortably. The patient's abdominal pain has slightly decreased intensity and hematuria has improved as well. The patient denies having any chest pain, shortness of breath or cough. No nausea, vomiting. No diarrhea. PHYSICAL EXAMINATION: Her blood pressure is 113/72 with a pulse of 100, temperature is 98.1. She is 98% on room air. General description is an elderly female lying in bed in no distress. Respiratory system: Unlabored breathing. Clear to auscultation anteriorly. HEART: S1, S2. Regular rate and rhythm. ABDOMEN: Soft, no tenderness. LABS: Urine showing Gram-negative. 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 Patient is currently covered with Azactam to continue. She will possibly need Midline for outpatient antibiotic use. This was discussed with the child welfare caseworker. Continue supportive care. MMODL / IJN: [id number] /
[2020-10-08] MEDS: LEVOTHYROXINE 25 MCG TAB PO SCH (06:34)
[2020-10-08 06:58] LABS: Glucose,Whole Blood 148 mg/dL (75-99)
[2020-10-08] MEDS: INSULIN ASPART (NovoLOG) 100 UNIT/ML VIAL SQ SCH ×4 (07:09→21:25)
[2020-10-08] MEDS: PANTOPRAZOLE 40 MG TABLET PO SCH (07:30)
[2020-10-08] MEDS: AZTREONAM 2 GM in SODIUM CHLORIDE 0.9% 100 ML IVPB SCH (07:30)
[2020-10-08] MEDS: [UNRECOGNIZED DRUG - OTHER] PO SCH (07:36)
--- NOTE | 2020-10-08 08:39 | P.PN ---
Progress Note - Text Progress Note Date: 10/08/20 Mrs. Youngblood's pain is improved. Her urine culture showed pansensitive E. coli. I would suggest she be discharged home on antibiotics. The duration of treatment should be a minimum of 21 days. I also stressed to her the importance of glycemic control. She will follow up with me in 3 weeks. Please notify me if I can be of any further assistance.
[2020-10-08] MEDS: GABAPENTIN 300 MG CAP PO SCH ×2 (09:15→21:27)
[2020-10-08] MEDS: DULoxetine HCL 60 MG CAPSULE.DR PO SCH (09:16)
[2020-10-08] MEDS: methocarbamoL 750 MG TAB PO SCH ×3 (09:40→21:27)
[2020-10-08] MEDS: allopurinoL 100 MG TAB PO SCH (09:40)
[2020-10-08] MEDS: CALCIUM CARB-VIT D 500 MG-5 MCG TAB PO SCH (09:46)
[2020-10-08] MEDS: SODIUM CHLORIDE 0.9% 1,000 ML IV SCH (09:48)
[2020-10-08 13:10] LABS: Glucose,Whole Blood 140 mg/dL (75-99)
--- NOTE | 2020-10-08 14:59 | P.PN ---
Subjective Progress Note Date: 10/08/20 HISTORY OF PRESENT ILLNESS This is a 80-year-old female one of Dr. Rocha patient with past medical history of type 2 diabetes, non-Hodgkin's lymphoma [place] [address] Monaco and follows with Dr. Aranda status post chemotherapy and radiation therapy, TIA 5 years ago, hypertension, hyperlipidemia, hypertension, hypothyroidism, restless leg syndrome, recurrent depression, and osteoarthritis who has been treated for lower back pain post multiple lower back surgery and epidural injection with pain management at [facility], previous admission for acute GI bleed and acute blood loss anemia status post EGD and colonoscopy which revealed antral gastritis, area of ulceration, nonbleeding, in the distal transverse colon, pulmonary embolism and left lower leg DVT diagnosed 03/08/2020 on eliquis. She recently underwent revision T12-L2 fusion and decompression in in March 2020. She has been to [facility] in the past for subacute rehab. She was in [facility] for subacute rehab and was recently discharged approximately one week ago. Patient presents with complaints of lower back pain with radiation down bilateral legs. She's been placed on the observation unit and seen by orthopedic spine with the following changes made: Added prednisone 5 mg daily, increase gabapentin, change Tylenol No. 3 to [place]. We will add in physical therapy and monitor for pain control and if improved by tomorrow, discharge home. On September 25, patient underwent EGD for intermittent dysphagia, throat fullness and passive regurgitation with Dr. Cho that found retained food in the stomach suggestive gastroparesis with no evidence of gastric outlet obstruction. Mild antral gastritis. Normal-appearing esophagus with no evidence of esophagitis or esophageal stricture. Patient complains of hematuria for 3 days and saw her PCP. Patient was instructed to hold eliquis and she has been off since last . Patient was having hematuria and right lower quadrant abdominal pain. No fever or chills. No nausea vomiting. No changes in bowel habits. No blood in her stools. No vaginal bleeding. Patient presented to emergency center for eval uation. Patient was afebrile, heart rate 106, blood pressure 146/87, pulse ox 97% on room air. CBC was unremarkable with hemoglobin of 13.3. Electrolytes were normal. BUN 21 and creatinine 0.52. Blood sugar 180. Urinalysis cloudy, blood large, nitrate positive, and RBCs greater than 182, W BC greater than 182, W BC clumps many, bacteria moderate. CAT scan of the abdomen and pelvis with contrast revealed intramural air in the urinary bladder extensive and consistent with severe emphysematous cystitis. Mild small bowel ileus. Patient was given 500 ML's of IV fluids, fentanyl IV push and Macrodantin 1 dose. Patient was admitted to the [facility] floor and consult with infectious disease. Patient was started on Azactam 2 g IV piggyback every 8 hours. Urine culture from October 03 is E. coli pansensitive. Repeat urine culture is in progress from October 06. 10/08: Patient has been afebrile, heart rate 89, blood pressure 111/78, pulse ox 97% on room air. Blood sugars are running between 148 to 198. Urine culture is gram-negative bacilli. Dr. Lee is recommended continuing Azactam and probably patient will need a midline for outpatient antibiotics. Patient is also been seen by Dr. Hernandez for emphysematous cystitis that occurs predominantly in diabetic patients with UTIs and recommended 14 day course of antibiotics and follow-up urinalysis to confirm resolution of her UTI. If patient continues to have pneumaturia, or evaluation would be warranted and patient has been cleared for discharge by Dr. Hernandez. Patient having any more blood in her urine. We will plan to continue to hold eliquis and resume this tomorrow. For discharge home tomorrow. REVIEW OF SYSTEMS Constitutional: No fever, no chills, no night sweats. No weight change. Report s weakness, reports fatigue denies lethargy. No daytime sleepiness. EENT: No headache. No blurred vision or double vision, no loss of vision. No loss of Hearing, no ringing in the ears, Reports dizziness. No nasal drainage or congestion. No epistaxis. No sore throat. Lungs: Denies shortness of breath, cough, no sputum production. No wheezing. Cardiovascular: No chest pain, no left lower extremity edema. No palpitations. No paroxysmal nocturnal dyspnea. No orthopnea. No lightheadedness or dizziness. No syncopal episodes. Abdominal: No abdominal pain. No nausea, vomiting. No diarrhea. No constipation. No bloody or tarry stools.. No loss of appetite. Genitourinary: No dysuria, increased frequency, urgency. No urinary retention. Reports incontinence, loss of bladder control Musculoskeletal: No myalgias. Reports muscle weakness, reports gait dysfunction, reports 2 falls. Reports back pain. No neck pain. Integumentary: No wounds, no lesions. No rash or pruritus. No unusual bruising. No change in hair or nails. Neurologic: No aphasia. No facial droop. No change in mentation. No head injury. No headache. No paralysis. No paresthesia. Psychiatric: No depression. No anxiety. No mood swings. Endocrine: No abnormal blood sugars. PHYSICAL EXAMINATION Gen: This is A 80-year-old female. Patient is resting in bed appears to be comfortable and in no acute distress. No respiratory distress is noted. HEENT: Head is atraumatic, normocephalic. Pupils equal, round. Sclerae is anicteric. NECK: Supple. No JVD. No lymphadenopathy. No thyromegaly. LUNGS: Clear to auscultation. No wheezes or rhonchi. No intercostal retractions. HEART: Regular rate and rhythm. No murmur. ABDOMEN: Soft. Bowel sounds are present. No masses. Mild right lower quadrant tenderness. BACK: Surgical wound is healed. No drainage, erythema. No deformity noted. EXTREMITIES: No pedal edema. No calf tenderness. Dorsalis pedis palpable bilaterally. Left foot drop. NEUROLOGICAL: Patient is awake, alert and oriented x3. Cranial nerves 2 through 12 are grossly intact. ASSESSMENT AND PLAN 1. Acute urinary tract infection. Consult with Dr. Jesus valencia. Patient is on Azactam 2 g IV piggyback every 8 hours. Repeat urine culture in progress. Urine culture from October 03 is E. coli pansensitive. 2. Hemorrhagic cystitis. Eliquis is on hold. 3. 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 Continue gabapentin 300 mg twice daily and 600 at bedtime. 4. Right lower lobe pulmonary embolism. Eliquis 5 mg twice daily on hold. 5. Diabetes mellitus type 2. Recheck Hemoglobin A1c. Patient will be on Karon Log scale before meals and at bedtime. 6. Non-Hodgkin's lymphoma [place] [address] Monaco and follows with Dr. Aranda, in remission. 7. History of TIA with no deficits. 8. History of GI bleed secondary to colon ulcer in November 2019 without recurrence. Continue Protonix. 9. Hypertension. Hold amlodipine 5 mg daily, continue atenolol 50 mg twice daily. 10. Hypothyroidism. Continue levothyroxine 12.5 g daily. 11. Seasonal ALLERGIES. Continue Singulair 10 mg at bedtime. 12. Recurrent depression. Continue Prozac 30 mg daily. 13. Chronic gout. Continue allopurinol 100 mg daily. 14. Hyperlipidemia. Patient is not currently on statin. 15. Restless leg syndrome. Continue Requip. 16. GERD and GI prophylaxis. Protonix Discharge plan: Probably home with outpatient physical therapy. Impression and plan of care have been directed as dictated by the signing physic ian. Karen Quintero nurse practitioner acting as scribe for signing physician. Objective - Vital Signs Vital signs: Vital Signs Temp 98.2 F 10/08/20 01:59 Pulse 89 10/08/20 01:59 Resp 16 10/08/20 01:59 BP 111/78 10/08/20 01:59 Pulse Ox 97 10/08/20 01:59 Intake & Output 10/07/20 10/08/20 10/08/20 18:59 06:59 18:59 Intake Total 1500 800 Balance 1500 800 Intake: Intake, IV Titration 200 500 Amount Aztreonam 2 gm In Sodium 200 100 Chloride 0.9% 100 ml @ 33 .3 mls/hr IVPB Q8HR SANTOS Rx#:[id number] Sodium Chloride 0.9% 1, 400 000 ml @ 50 mls/hr IV . Q20H SANTOS Rx#:[id number] Oral 1300 300 Other: Voiding Method Toilet # Voids 2 1 # Bowel Movements 1 - Labs CBC & Chem 7: 10/07/20 04:58 10/07/20 04:58 Labs: Abnormal Lab Results - Last 24 Hours (Table) 10/07/20 10/07/20 10/07/20 Range/Units 04:58 04:58 11:47 RBC 3.83 L (4.10-5.20) X 10*6/uL Hct 36.5 L (37.2-46.3) % MCH 33.9 H (27.0-32.0) pg RDW 14.7 H (11.5-14.5) % Metamyelocytes % 3 H (0-0) % Myelocytes % 5 H (0-0) % Eosinophils # (Manual) 0 L (0.04-0.35) X 10*3/uL Anion Gap 12.60 H (4.00-12.00) mmol/L BUN/Creatinine Ratio 30.00 H (12.00-20.00) Ratio Glucose 157 H (70-110) mg/dL POC Glucose (mg/dL) 211 H (75-99) mg/dL 10/07/20 10/07/20 10/08/20 Range/Units 17:22 21:16 06:56 RBC (4.10-5.20) X 10*6/uL Hct (37.2-46.3) % MCH (27.0-32.0) pg RDW (11.5-14.5) % Metamyelocytes % (0-0) % Myelocytes % (0-0) % Eosinophils # (Manual) (0.04-0.35) X 10*3/uL Anion Gap (4.00-12.00) mmol/L BUN/Creatinine Ratio (12.00-20.00) Ratio Glucose (70-110) mg/dL POC Glucose (mg/dL) 176 H 198 H 148 H (75-99) mg/dL Microbiology - Last 24 Hours (Table) 10/06/20 13:47 Urine Culture - Preliminary Urine,Voided Gram Neg Bacilli
[2020-10-08 16:20] LABS: Hemoglobin A1C 7.8 % (4.0-6.0)
[2020-10-08] MEDS: HYDROcodone/APAP 10-325MG 1 EACH TAB PO PRN (17:02)
[2020-10-08 17:50] LABS: Glucose,Whole Blood 195 mg/dL (75-99)
[2020-10-08] MEDS ORDERED: NITROFURANTOIN MONOHYD/M-CRYST 100 MG CAP PO SCH (21:00)
[2020-10-08 21:03] LABS: Glucose,Whole Blood 197 mg/dL (75-99)
[2020-10-08] MEDS: atenoloL 50 MG TAB PO SCH (21:32)
[2020-10-09] MEDS: HYDROcodone/APAP 10-325MG 1 EACH TAB PO PRN ×2 (00:06→10:20)
--- NOTE | 2020-10-09 01:21 | PN ---
PROGRESS NOTE DATE OF SERVICE: 10/08/2020 REASON FOR FOLLOWUP: E coli emphysematous cystitis. INTERVAL HISTORY: The patient is currently afebrile. The patient is breathing comfortably. The patient abdominal pain has improved. Hematuria has resolved. Denies having any chest pain. No shortness of breath or cough. No abdominal pain. No diarrhea. PHYSICAL EXAMINATION: Blood pressure is 105/71 with a pulse of 86, temperature 98.1. She is 95% on room air. General description is an elderly female lying in bed in no distress. Respiratory system: Unlabored breathing, clear to auscultation anteriorly. Heart S1, S2. Regular rate and rhythm. Abdomen soft, no tenderness. LABS: No new labs have been obtained today. DIAGNOSTIC IMPRESSION AND PLAN: Patient with E coli emphysematous changes in this patient who did have MULTIPLE ANTIBIOTIC ALLERGIES. Unfortunately the patient has lost IV access. Antibiotic may be switched over to Macrobid. However we need to monitor the patient closely in the hospital for 24 hours, if the patient have any worsening of her symptoms on Macrobid, will need a midline and outpatient IV antibiotic therapy. This was explained to the nurse practitioner for admitting team working on discharge. Continue supportive care. MMODL / IJN: [id number] /
[2020-10-09 05:06] LABS: Basophils # (A) 0.1 k/uL (0-0.2); Basophils % (A) 1 %; Eosinophils # (A) 0.1 k/uL (0-0.7); Eosinophils % (A) 1 %; HGB 13.5 gm/dL (11.4-16.0); Lymphocytes # (A) 0.8 k/uL (1.0-4.8); Lymphocytes % (A) 10 %; MCH 29.1 pg (25.0-35.0); MCHC 32.1 g/dL (31.0-37.0); MCV 90.8 fL (80.0-100.0); Monocytes # (A) 0.9 k/uL (0-1.0); Monocytes % (A) 12 %; Neutrophils # (A) 5.6 k/uL (1.3-7.7); Neutrophils % (A) 74 %; Platelet Count 198 k/uL (150-450); RBC 4.62 m/uL (3.80-5.40); RDW 14.9 % (11.5-15.5); WBC 7.6 k/uL (3.8-10.6)
[2020-10-09] MEDS: LEVOTHYROXINE 25 MCG TAB PO SCH (06:37)
[2020-10-09] MEDS: PANTOPRAZOLE 40 MG TABLET PO SCH (06:37)
[2020-10-09 06:43] LABS: Glucose,Whole Blood 168 mg/dL (75-99)
[2020-10-09] MEDS: INSULIN ASPART (NovoLOG) 100 UNIT/ML VIAL SQ SCH ×2 (06:46→12:55)
[2020-10-09] MEDS: DULoxetine HCL 60 MG CAPSULE.DR PO SCH (10:20)
[2020-10-09] MEDS: GABAPENTIN 300 MG CAP PO SCH ×2 (10:20→16:31)
[2020-10-09] MEDS ORDERED: ERTAPENEM 1 GM in SODIUM CHLORIDE 0.9% 50 ML IVPB SCH (10:30)
[2020-10-09] MEDS: allopurinoL 100 MG TAB PO SCH (10:53)
[2020-10-09] MEDS: methocarbamoL 750 MG TAB PO SCH ×2 (10:53→16:44)
[2020-10-09] MEDS: CALCIUM CARB-VIT D 500 MG-5 MCG TAB PO SCH (10:54)
[2020-10-09] MEDS: [UNRECOGNIZED DRUG - OTHER] PO SCH (11:07)
[2020-10-09 12:54] LABS: Glucose,Whole Blood 117 mg/dL (75-99)
[2020-10-09 14:44] VITALS: BP 107/76; PULSE 104; RESP 20; TEMP 98.2
--- NOTE | 2020-10-09 14:47 | P.DS ---
Providers Date of admission: 10/06/20 15:28 Expected date of discharge: 10/09/20 Attending physician: Laureen Bautista MD Consults: 10/06/20 15:26 Consult Physician Urgent Consulting Provider: Stephan Hollis Consult Reason/Comments: emphasematous cystitis Do you want consulting provider notified?: Already Contacted 10/06/20 15:27 Consult Physician Urgent Consulting Provider: Ctaherine Lee Consult Reason/Comments: emphasematous cystitis, multiple drug allergies Do you want consulting provider notified?: Yes [facility] Course: HISTORY OF PRESENT ILLNESS This is a 80-year-old female one of Dr. Rocha patient with past medical history of type 2 diabetes, non-Hodgkin's lymphoma [place] [address] Monaoc and follows with Dr. Aranda status post chemotherapy and radiation therapy, TIA 5 years ago, hypertension, hyperlipidemia, hypertension, hypothyroidism, restless leg syndrome, recurrent depression, and osteoarthritis who has been treated for lower back pain post multiple lower back surgery and epidural injection with pain management at [facility], previous admission for acute GI bleed and acute blood loss anemia status post EGD and colonoscopy which revealed antral gastritis, area of ulceration, nonbleeding, in the distal transverse colon, pulmonary embolism and left lower leg DVT diagnosed 03/08/2020 on eliquis. She recently underwent revision T12-L2 fusion and decompression in in March 2020. She has been to [facility] in the past for subacute rehab. She was in [facility] for subacute rehab and was recently discharged approximately one week ago. Patient presents with complaints of lower back pain with radiation down bilateral legs. She's been placed on the observation unit and seen by orthopedic spine with the following changes made: Added prednisone 5 mg daily, increase gabapentin, change Tylenol No. 3 to [place]. We will add in physical therapy and monitor for pain control and if improved by tomorrow, discharge home. On September 25, patient underwent EGD for intermittent dysphagia, throat fullness and passive regurgitation with Dr. Cho that found retained food in the stomach suggestive gastroparesis with no evidence of gastric outlet obstruction. Mild antral gastritis. Normal-appearing esophagus with no evidence of esophagitis or esophageal stricture. Patient complains of hematuria for 3 days and saw her PCP. Patient was instructed to hold eliquis and she has been off since last . Patient was having hematuria and right lower quadrant abdominal pain. No fever or chills. No nausea vomiting. No changes in bowel habits. No blood in her stools. No vaginal bleeding. Patient presented to [facility] emergency center for evalua tion. Patient was afebrile, heart rate 106, blood pressure 146/87, pulse ox 97% on room air. CBC was unremarkable with hemoglobin of 13.3. Electrolytes were normal. BUN 21 and creatinine 0.52. Blood sugar 180. Urinalysis cloudy, blood large, nitrate positive, and RBCs greater than 182, W BC greater than 182, W BC clumps many, bacteria moderate. CAT scan of the abdomen and pelvis with contra st revealed intramural air in the urinary bladder extensive and consistent with severe emphysematous cystitis. Mild small bowel ileus. Patient was given 500 ML's of IV fluids, fentanyl IV push and Macrodantin 1 dose. Patient was admitted to the [facility] floor and consult with infectious disease. Patient was started on Azactam 2 g IV piggyback every 8 hours. Urine culture from October 03 is E. coli pansensitive. Repeat urine culture is in progress from October 06. 10/08: Patient has been afebrile, heart rate 89, blood pressure 111/78, pulse ox 97% on room air. Blood sugars are running between 148 to 198. Urine culture is gram-negative bacilli. Dr. Lee is recommended continuing Azactam and probably patient will need a midline for outpatient antibiotics. Patient is also been seen by Dr. Hernandez for emphysematous cystitis that occurs predominantly in diabetic patients with UTIs and recommended 14 day course of antibiotics and follow-up urinalysis to confirm resolution of her UTI. If patient continues to have pneumaturia, or evaluation would be warranted and patient has been cleared for discharge by Dr. Hernandez. Patient having any more blood in her urine. We will plan to continue to hold eliquis and resume this tomorrow. For discharge home tomorrow. 10/09: She has increased lower abdominal pain today and Dr. Lee has advised for IV antibiotics. Patient will be started on meropenem and midline has been ordered. pmp certified project manager is working through issues regarding cost. Patient has been afebrile, heart rate 93, blood pressure 110/73, pulse ox 97% on room air. A CBC is normal. Blood sugars running between 117 and 197. C-reactive protein 5.1. She may resume eliquis at home. Patient will be discharged home once antibiotics have been arranged. DISCHARGE DIAGNOSES 1. Acute E. coli urinary tract infection. 2. Hemorrhagic cystitis. 3. 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 4. Right lower lobe pulmonary embolism. 5. Diabetes mellitus type 2. A1c 7.8. 6. Non-Hodgkin's lymphoma [place] [address] Monaco and follows with Dr. Aranda, in remission. 7. History of TIA with no deficits. 8. History of GI bleed secondary to colon ulcer in November 2019 without recurrence. 9. Hypertension. 10. Hypothyroidism. 11. Seasonal ALLERGIES. 12. Recurrent depression. 13. Chronic gout. 14. Hyperlipidemia. 15. Restless leg syndrome. 16. GERD Discharge plan: home with outpatient IV antibiotics. Impression and plan of care have been directed as dictated by the signing physician. Karen Quintero nurse practitioner acting as scribe for signing physician. Patient Condition at Discharge: Stable Plan - Discharge Summary Discharge Rx Participant: Yes New Discharge Prescriptions: New Ertapenem [INVanz] 1 gm IVPB Q24H #21 bag Continue allopurinoL [Zyloprim] 100 mg PO DAILY atenoloL [Tenormin] 50 mg PO HS Calcium Carb-Vit D 500Mg-5Mcg [Oscal 500+D 5 Mcg (200 Iu)] 2 tab PO DAILY Levothyroxine Sodium [Synthroid] 12.5 mcg PO DAILY rOPINIRole HCL [Requip] 2 - 4 mg PO HS Alpha Lipoic Acid 600 mg PO QAM Gabapentin [Neurontin] 300 mg PO BID Gabapentin [Neurontin] 600 mg PO HS Ipratropium [place] 0.06%Nasal [Atrovent Nasal 0.06%] 2 spray EA NOSTRIL BID S-Adenosylmethionine Sul Tosyl [Nuno-E] 1,000 mg PO QAM HYDROcodone/APAP 10-325MG [[place] 10-325] 1 tab PO BID PRN PRN Reason: Pain Biotin 5 mg PO DAILY methocarbamoL [Robaxin] 750 mg PO TID Cholecalciferol [Vitamin D3 (25 Mcg = 1000 Iu)] 1,000 unit PO DAILY Dexlansoprazole [Dexilant] 60 mg PO DAILY DULoxetine HCL [Cymbalta] 60 mg PO DAILY Empaglifloz/Linaglip/Metformin [Trijardy Xr 25-5-1,000 mg Tab] 1 tab PO DAILY Temazepam [Restoril] 15 mg PO HS PRN PRN Reason: Insomnia Polyethylene Glycol 3350 [Miralax] 17 gm PO DAILY PRN PRN Reason: Constipation Apixaban [Eliquis] 5 mg PO DIRECTED Discharge Medication List Calcium Carb-Vit D 500Mg-5Mcg [Oscal 500+D 5 Mcg (200 Iu)] 2 tab PO DAILY 01/05/14 [History] allopurinoL [Zyloprim] 100 mg PO DAILY 01/05/14 [History] atenoloL [Tenormin] 50 mg PO HS 01/05/14 [History] Levothyroxine Sodium [Synthroid] 12.5 mcg PO DAILY 03/16/14 [History] rOPINIRole HCL [Requip] 2 - 4 mg PO HS 03/16/20 [History] Alpha Lipoic Acid 600 mg PO QAM 07/03/20 [History] Gabapentin [Neurontin] 300 mg PO BID 07/03/20 [History] Gabapentin [Neurontin] 600 mg PO HS 07/03/20 [History] Ipratropium [place] 0.06%Nasal [Atrovent Nasal 0.06%] 2 spray EA NOSTRIL BID 07/03/20 [History] S-Adenosylmethionine Sul Tosyl [Nuno-E] 1,000 mg PO QAM 07/03/20 [History] Biotin 5 mg PO DAILY 07/15/20 [History] HYDROcodone/APAP 10-325MG [[place] 10-325] 1 tab PO BID PRN 07/15/20 [History] Cholecalciferol [Vitamin D3 (25 Mcg = 1000 Iu)] 1,000 unit PO DAILY 08/07/20 [History] Dexlansoprazole [Dexilant] 60 mg PO DAILY 08/07/20 [History] methocarbamoL [Robaxin] 750 mg PO TID 08/07/20 [History] DULoxetine HCL [Cymbalta] 60 mg PO DAILY 08/21/20 [History] Empaglifloz/Linaglip/Metformin [Trijardy Xr 25-5-1,000 mg Tab] 1 tab PO DAILY 09/20/20 [History] Apixaban [Eliquis] 5 mg PO DIRECTED 10/06/20 [History] Polyethylene Glycol 3350 [Miralax] 17 gm PO DAILY PRN 10/06/20 [History] Temazepam [Restoril] 15 mg PO HS PRN 10/06/20 [History] Ertapenem [INVanz] 1 gm IVPB Q24H #21 bag 10/09/20 [Rx] Follow up Appointment(s)/Referral(s): Tom Hernandez MD [STAFF PHYSICIAN] - 3 Weeks [facility], [NON-STAFF] - 10/10/20 [facility], [REFERRING] - 10/10/20 Alvarez Rocha DO [Primary Care Provider] - 1 Week Ambulatory/Diagnostic Orders: Basic Metabolic Panel [LAB.AMB] Location: None Selected Complete Blood Count w/diff [LAB.AMB] Location: None Selected Patient Instructions/Handouts: *[facility] - Urinary Tract Infection (Pediatrics) Home Instructions, Peripherally Inserted Central Catheters and Midline Catheters (DC), Peripherally Inserted Central Catheters and Midline Catheters (GEN) Activity/Diet/Wound Care/Special Instructions: Good handwashing. Drink plenty of fluids. Do not hold your urine, void every [address] Hernandez if you develop a fever, increase in pain, if you are unable to urinate, or if you have any other concerns or questions. Discharge Disposition: HOME SELF-CARE
--- NOTE | 2020-10-09 15:56 | PN ---
PROGRESS NOTE DATE OF SERVICE: 10/09/2020 REASON FOR FOLLOWUP: Emphysematous cystitis and MULTIPLE ANTIBIOTIC ALLERGIES. INTERVAL HISTORY: The patient is currently afebrile. She was seen on rounds this morning. The patient has been complaining of more abdominal pain after she had been switched to p.o. Macrobid. No hematuria, though. No chest pain, shortness of breath or cough. No diarrhea. PHYSICAL EXAMINATION: Blood pressure 107/76, pulse 104, temperature 98.2. She is 97% on room air. General description is an elderly female up in the bed in no distress. RESPIRATORY SYSTEM: Unlabored breathing, clear to auscultation anteriorly. HEART: S1, S2. Regular rate and rhythm. ABDOMEN: Soft, no tenderness. LABS: Hemoglobin 13.5, white count 7.6. DIAGNOSTIC IMPRESSION AND PLAN: Patient with an Escherichia coli emphysematous cystitis, sensitive pathogen. She did have MULTIPLE ANTIBIOTIC ALLERGIES and did not do well with Macrobid. Recommending she will get a dose of Invanz without any problem. She will continue with Ertapenem 1 gram daily for 2 weeks and close outpatient followup. Questions and concerns were answered. MMODL / IJN: [id number] /
--- NOTE | 2020-10-10 08:06 | CDI ---
Documentation Clarification Form Date: 10/10/20 From: Aracelis Curran Phone: Admit Date: 10/06/2020 03:28:00 PM Patient Name: Pretty Youngblood Visit Number: [id number] Discharge Date: 10/09/2020 04:45:00 PM ATTENTION: The Clinical Documentation Specialists (CDI) and [facility] Coding Staff appreciate your assistance in clarifying documentation. Please respond to the clarification below the line at the bottom and electronically sign. The CDI & [facility] Coding staff will review the response and follow-up if needed. Please note: Queries are made part of the Legal Health Record. If you have any questions, please contact the author of this message via ITS. Dr. Laureen Bautista, Right lower lobe pulmonary embolism is documented in the HP, 10/08 PN & DS. She has a history of PE and left lower leg DVT 03/08/20 on Eliquis. Please specify the acuity of this condition with terms such as: Acute Chronic Acute and chronic Other (please specify in the medical record) Clinically unable to further specify Unknown chronic MTDD
== END 2020-10-09 16:45 | disposition home health service (06) | DRG 690 ==
LOC: EC 12:41 → 5NMEDONC 15:28 → 6PED 10-07 19:41
PROVIDERS: ADMIT Internal Medicine; ATTEND Internal Medicine
PROC: 05H933Z Insertion of Infusion Device into Right Brachial Vein, Percutaneous Approach (ICD-10-PCS; principal; 2020-10-09 11:20)
DX: N30.81 Other cystitis with hematuria (principal); I27.82 Chronic pulmonary embolism; F33.9 Major depressive disorder, recurrent, unspecified; K56.7 Ileus, unspecified; M48.04 Spinal stenosis, thoracic region; E11.43 Type 2 diabetes mellitus with diabetic autonomic (poly)neuropathy; K31.84 Gastroparesis; B96.20 Unspecified Escherichia coli [E. coli] as the cause of diseases classified elsewhere; Z20.822 Contact with and (suspected) exposure to COVID-19; E78.5 Hyperlipidemia, unspecified; I10 Essential (primary) hypertension; K21.9 Gastro-esophageal reflux disease without esophagitis; G25.81 Restless legs syndrome; E03.9 Hypothyroidism, unspecified; J30.2 Other seasonal allergic rhinitis; K29.70 Gastritis, unspecified, without bleeding; M21.372 Foot drop, left foot; M47.815 Spondylosis without myelopathy or radiculopathy, thoracolumbar region; M1A.9XX0 Chronic gout, unspecified, without tophus (tophi); G89.29 Other chronic pain; M54.5 Low back pain; K57.30 Diverticulosis of large intestine without perforation or abscess without bleeding; M54.9 Dorsalgia, unspecified; R13.10 Dysphagia, unspecified; M19.90 Unspecified osteoarthritis, unspecified site; M20.40 Other hammer toe(s) (acquired), unspecified foot; I83.90 Asymptomatic varicose veins of unspecified lower extremity; K59.00 Constipation, unspecified; Z79.01 Long term (current) use of anticoagulants; Z79.890 Hormone replacement therapy; Z79.899 Other long term (current) drug therapy; Z85.72 Personal history of non-Hodgkin lymphomas; Z92.3 Personal history of irradiation; Z92.21 Personal history of antineoplastic chemotherapy; Z86.718 Personal history of other venous thrombosis and embolism; Z90.49 Acquired absence of other specified parts of digestive tract; Z90.89 Acquired absence of other organs; Z90.710 Acquired absence of both cervix and uterus; Z87.19 Personal history of other diseases of the digestive system; Z87.42 Personal history of other diseases of the female genital tract; Z86.69 Personal history of other diseases of the nervous system and sense organs; Z96.653 Presence of artificial knee joint, bilateral; Z98.42 Cataract extraction status, left eye; Z98.41 Cataract extraction status, right eye; Z98.1 Arthrodesis status; Z86.73 Personal history of transient ischemic attack (TIA), and cerebral infarction without residual deficits; Z87.11 Personal history of peptic ulcer disease; Z87.2 Personal history of diseases of the skin and subcutaneous tissue; Z98.890 Other specified postprocedural states; Z88.1 Allergy status to other antibiotic agents; Z88.5 Allergy status to narcotic agent; Z88.0 Allergy status to penicillin; Z88.2 Allergy status to sulfonamides; Z91.048 Other nonmedicinal substance allergy status; Z82.49 Family history of ischemic heart disease and other diseases of the circulatory system; Z83.2 Family history of diseases of the blood and blood-forming organs and certain disorders involving the immune mechanism; Z82.3 Family history of stroke; Z80.1 Family history of malignant neoplasm of trachea, bronchus and lung; Z80.3 Family history of malignant neoplasm of breast; Z82.0 Family history of epilepsy and other diseases of the nervous system
CPT/HCPCS: 36410; 36415; 74177; 76937; 80048; 80053; 81001; 83036; 85025; 86140; 87077; 87086; 87186; 87635; 96374; 99285

== ENCOUNTER 2020-10-23 10:08 | Emergency (ER) | payer MEDICARE ==
[2020-10-23 10:12] VITALS: BP 119/64; PULSE 97; RESP 16; TEMP 97.9
--- NOTE | 2020-10-23 11:27 | ED ---
General Adult HPI - General Chief complaint: Recheck/Abnormal Lab/Rx Stated complaint: Need pic line changed Time Seen by Provider: 10/23/20 10:12 Source: patient, RN notes reviewed Mode of arrival: ambulatory Limitations: no limitations - History of Present Illness Initial comments: 80-year-old female presents emergency Department with chief complaint of PICC line issues. Patient states her PICC line was not working states it was bleeding and draining. He states is not infiltrated. Patient sent in for new line. Patient states she has 1 more week of Invanz for UTI. Patient denies any other complaints. No chest pain or shortness breath no fevers or chills. - Related Data Home Medications Medication Instructions Recorded Confirmed Calcium Carb-Vit D 500Mg-5Mcg 2 tab PO DAILY 01/05/14 10/06/20 [Oscal 500+D 5 Mcg (200 Iu)] allopurinoL [Zyloprim] 100 mg PO DAILY 01/05/14 10/06/20 atenoloL [Tenormin] 50 mg PO HS 01/05/14 10/06/20 Levothyroxine Sodium [Synthroid] 12.5 mcg PO DAILY 03/16/14 10/06/20 rOPINIRole HCL [Requip] 2 - 4 mg PO HS 03/16/20 10/06/20 Alpha Lipoic Acid 600 mg PO QAM 07/03/20 10/06/20 Gabapentin [Neurontin] 300 mg PO BID 07/03/20 10/06/20 Gabapentin [Neurontin] 600 mg PO HS 07/03/20 10/06/20 Ipratropium Currie 0.06%Nasal 2 spray EA NOSTRIL BID 07/03/20 10/06/20 [Atrovent Nasal 0.06%] S-Adenosylmethionine Sul Tosyl 1,000 mg PO QAM 07/03/20 10/06/20 [Nuno-E] Biotin 5 mg PO DAILY 07/15/20 10/06/20 HYDROcodone/APAP 10-325MG [Cade 1 tab PO BID PRN 07/15/20 10/06/20 10-325] Cholecalciferol [Vitamin D3 (25 1,000 unit PO DAILY 08/07/20 10/06/20 Mcg = 1000 Iu)] Dexlansoprazole [Dexilant] 60 mg PO DAILY 08/07/20 10/06/20 methocarbamoL [Robaxin] 750 mg PO TID 08/07/20 10/06/20 DULoxetine HCL [Cymbalta] 60 mg PO DAILY 08/21/20 10/06/20 Empaglifloz/Linaglip/Metformin 1 tab PO DAILY 09/20/20 10/06/20 [Trijardy Xr 25-5-1,000 mg Tab] Apixaban [Eliquis] 5 mg PO DIRECTED 10/06/20 10/06/20 Polyethylene Glycol 3350 [Miralax] 17 gm PO DAILY PRN 10/06/20 10/06/20 Temazepam [Restoril] 15 mg PO HS PRN 10/06/20 10/06/20 Previous Rx's Medication Instructions Recorded Ertapenem [INVanz] 1 gm IVPB Q24H #21 bag 10/09/20 Allergies Allergy/AdvReac Type Severity Reaction Status Date / Time adhesive Allergy red skin, Verified 10/23/20 10:10 blisters cefaclor [From Ceclor] Allergy Rash/Hives Verified 10/23/20 10:10 ciprofloxacin [From Cipro] Allergy Rash/Hives Verified 10/23/20 10:10 ciprofloxacin HCl Allergy Rash/Hives Verified 10/23/20 10:10 [From Cipro] hydromorphone HCl Allergy Anaphylaxis Verified 10/23/20 10:10 [From Dilaudid] Penicillins Allergy Rash/Hives Verified 10/23/20 10:10 sulfamethoxazole AdvReac Abdominal Verified 10/23/20 10:10 [From Bactrim] Pain trimethoprim [From Bactrim] AdvReac Abdominal Verified 10/23/20 10:10 Pain Review of Systems ROS Statement: Those systems with pertinent positive or pertinent negative responses have been documented in the HPI. ROS Other: All systems not noted in ROS Statement are negative. 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, VARICOSE VEINS, GOUT, LYMPHOMA (HX OF CHEMO & RADIATION 1977,1982 & 1993), hx migraines, hx ulcer, constipation, "red spots all over", states difficulty swallowing & having acid reflux., back pain-uses walker., States toenail was "cut back " yesterday 09/19/20, hammer toes. History of Any Multi-Drug Resistant Organisms: None Reported Past Surgical History: Appendectomy, Back Surgery, Breast Surgery, Cholecystectomy, Hysterectomy, Joint Replacement, Orthopedic Surgery, T onsillectomy Additional Past Surgical History / Comment(s): RIGHT HIP REPAIR, german KNEE REPLACEMENT, rods german thumbs and rt 3rd toe, BREAST & AXILLARY BX, TUMOR IN THROAT REMOVED., CERVICAL FUSION, LUMBAR LAMINECTOMY,DECOMPRESSION-FUSION L1- L2., recent back surgery for nerve and tendons, german cataracts Past Anesthesia/Blood Transfusion Reactions: No Reported Reaction Additional Past Anesthesia/Blood Transfusion Reaction / Comment(s): CLAUSTROPHOBIA Past Psychological History: Anxiety, Depression Smoking Status: Never smoker Past Alcohol Use History: None Reported Past Drug Use History: None Reported - Past Family History Father Family Medical History: Deep Vein Thrombosis (DVT), Pulmonary Embolus Additional Family Medical History / Comment(s): Father at age 32 from pulmonary embolism. Mother Family Medical History: Cancer Additional Family Medical History / Comment(s): . Brother(s) Family Medical History: Cancer, Deep Vein Thrombosis (DVT) Additional Family Medical History / Comment(s): Patient had 2 brothers that have passed one from myocardial infarction and one from pulmonary embolism. 2 brothers are alive and one has lung cancer, one brother is alive with a brain aneurysm and CVA. General Exam Limitations: no limitations General appearance: alert, in no apparent distress Head exam: Present: atraumatic, normocephalic, normal inspection Eye exam: Present: normal appearance, PERRL, EOMI. Absent: scleral icterus, conjunctival injection, periorbital swelling Respiratory exam: Present: normal lung sounds bilaterally. Absent: respiratory distress, wheezes, rales, rhonchi, stridor Cardiovascular Exam: Present: regular rate, normal rhythm, normal heart sounds. Absent: systolic murmur, diastolic murmur, rubs, gallop, clicks Extremities exam: Present: other (Right bicep region there is noted PICC line there is some area of infiltration no erythema pulses equal bilaterally.) Course Vital Signs 10/23/20 10:10 Temperature 97.9 F Pulse Rate 97 Respiratory 16 Rate Blood Pressure 119/64 O2 Sat by Pulse 98 Oximetry Medical Decision Making - Medical Decision Making Patient had PICC line removed in midline placed by cardiovascular team. Patient discharged in stable condition. Disposition Clinical Impression: Malfunction of peripheral inserted central catheter Disposition: HOME SELF-CARE Condition: Stable Instructions (If sedation given, give patient instructions): How to Care for Your Midline Catheter (ED) Additional Instructions: Please return to the Emergency Department if symptoms worsen or any other concerns. Is patient prescribed a controlled substance at d/c from ED?: No Referrals: Alvarez Rocha DO [Primary Care Provider] - 1-2 days Time of Disposition: 11:26
== END 2020-10-23 12:14 | disposition home or self-care (01) ==
LOC: EC 10:08
DX: T82.514A Breakdown (mechanical) of infusion catheter, initial encounter (principal); E11.9 Type 2 diabetes mellitus without complications; E78.5 Hyperlipidemia, unspecified; K21.9 Gastro-esophageal reflux disease without esophagitis; I10 Essential (primary) hypertension; M19.90 Unspecified osteoarthritis, unspecified site; Z86.718 Personal history of other venous thrombosis and embolism; F41.9 Anxiety disorder, unspecified; F32.9 Major depressive disorder, single episode, unspecified
CPT/HCPCS: 36410; 76937; 99283

== ENCOUNTER → 2020-11-01 | Outpatient (CLI) | payer BC, MEDICARE ==
--- NOTE | 2020-11-03 22:46 | MR ---
EXAMINATION TYPE: MR tspine/lspine wo con DATE OF EXAM: 11/01/2020 COMPARISON: None HISTORY: Low back pain, thoracic spine pain CONTRAST: Performed utilizing mL intravenous gadolinium contrast. TECHNIQUE: Multiplanar, multiecho imaging on a 3.0 Xiomy magnet is performed through the thoracic spi ne. Spinal cord maintains normal signal through its visualized course. Vertebral body alignment is normal. Vertebral body heights are preserved. There is a central disc bulge present without cord contact within the upper thoracic spine. Series 80 1 image 19. No spinal canal stenosis is present. No spinal canal stenosis is evident. IMPRESSIONS: 1. Upper thoracic spine disc bulge with mild anterior thecal sac compression. No stenosis is present. No cord contact is evident. EXAMINATION TYPE: MR tspine/lspine wo con DATE OF EXAM: 11/01/2020 COMPARISON: 01/16/2013 HISTORY: Low back pain, thoracic spine pain CONTRAST: 0 mL intravenous Gadavist. TECHNIQUE: Multiplanar, multisequence images of the lumbar spine were acquired. FINDINGS: There is a large left paracentral disc bulge T12-L1 with moderate anterior thecal sac compression. Th is comes in close approximation of the spinal cord. Obvious cord compression is not identified. Some effect on the exiting nerve roots are suspected. Multilevel pedicle screws are present. This causes susceptibility artifact through the examination. N o obvious stenosis is evident. Foramen have more limited visualization. Note is made of cortical renal cysts. IMPRESSION: 1. Large left paracentral disc herniation appears to be present at the T12-L1 level may have cord con tact with suspected exiting nerve root displacement. Correlate with location of patient's pain. 2. Postsurgical changes, some limitation through the remaining lumbar spine.
== END | disposition home or self-care (01) ==
LOC: RADMRIMAIN 11:51
PROVIDERS: ATTEND Orthopaedic Surgery
DX: M51.25 Other intervertebral disc displacement, thoracolumbar region (principal)
CPT/HCPCS: 72146; 72148

== ENCOUNTER → 2020-11-12 | Outpatient (CLI) | payer MEDICARE ==
--- NOTE | 2020-11-12 12:45 | XR ---
EXAMINATION TYPE: XR abdomen 1V DATE OF EXAM: 11/12/2020 Comparison: None Clinical History: 80-year-old female N20.0, N39.0. G89.29 Findings: Upper and lower lumbar region hardware with corresponding laminectomies. Right-sided dynamic hip scre w fixation proximal right femur. There is moderate burden. Cholecystectomy clips. No dilated small jerald wel or air-fluid levels. No evidence for free intraperitoneal air. Impression: Moderate stool burden, correlate for constipation. No evidence for free air or bowel obstruction.
== END | disposition home or self-care (01) ==
LOC: RADXRMAIN 11:34
PROVIDERS: ATTEND Family Medicine
DX: N20.0 Calculus of kidney (principal); N39.0 Urinary tract infection, site not specified; G89.29 Other chronic pain
CPT/HCPCS: 74018

== ENCOUNTER → 2020-11-15 | Outpatient (CLI) | payer MEDICARE ==
--- NOTE | 2020-11-17 17:16 | MR ---
EXAMINATION TYPE: MR cervical spine wo con DATE OF EXAM: 11/15/2020 COMPARISON: None HISTORY: 80-year-old female Cervicalgia, pain/weakness right arm TECHNIQUE: Multiplanar, multisequence images of the cervical spine were acquired. FINDINGS: No craniocervical junction abnormality, predental space widening, or prevertebral soft tissue swellin g. Degenerative changes of the C1 dens articulation. There is solid bony fusion from C3 down through C7. Moderate to advanced degenerative disease both above the fusion at C2-C3 and below the fusion at C7-T 1. Alignment is maintained. No suspicious bone marrow replacement. Hypertrophic facet and uncovertebral joint arthropathy and ligamentum flavum thickening also noted ab ove and below the fusion. At C2-C3, these changes contribute to a moderate focal spinal canal stenosis with AP canal dimension of 4.8 mm. There is abutment and flattening of both the dorsal and ventral cord. The canal here is ti ght but there is no myelopathic cord signal change. Facet and uncovertebral joint arthropathy contrib utes to moderate left and mild right neural foraminal stenosis. No discrete myelopathic cord signal c hange. At the fused C3-C4 level, hyperostotic changes contribute to moderate to severe left and moderate rig ht neuroforaminal stenosis. At the fused C4-C5 level, mild hyperostotic changes cause mild right neural foraminal narrowing. At the fused C5-C6 level, mild hyperostotic changes result in mild neural foraminal narrowing on both sides. At the fused C6-C7 level, hyperostotic changes cause mild bilateral neural foraminal narrowing. Below the fusion at C7-T1, advanced hypertrophic facet and uncovertebral joint arthropathy with a dis c osteophyte complex and ligamentum flavum thickening contribute to severe bilateral neuroforaminal s tenosis. There is mild overall narrowing of the spinal canal. Some patchy cord signal appears to robbie espond to artifact as there is no corresponding signal abnormality on axial series. IMPRESSION: 1. Solid bony fusion across C3 down through C7 levels. Residual hyperostotic changes contribute to va riable mild neuroforaminal narrowing along these levels, more moderate to severe on the left and mode rate on the right at C3-C4. 2. Advanced spondylotic change both above the fusion at C3-C4 and below the fusion at C7-T1. At C3-C4 , changes result in a moderate focal spinal canal stenosis with mild impingement of the cord characte rized by abutment and flattening of both the dorsal and ventral cord. Moderate left and mild right ne uroforaminal stenosis. 3. At C7-T1, mild overall narrowing of the spinal canal but severe bilateral neural foraminal stenosi s.
== END | disposition home or self-care (01) ==
LOC: RADMRIMAIN 11:01
PROVIDERS: ATTEND Orthopaedic Surgery
DX: M48.02 Spinal stenosis, cervical region (principal); M99.71 Connective tissue and disc stenosis of intervertebral foramina of cervical region; Z98.1 Arthrodesis status
CPT/HCPCS: 72141

== ENCOUNTER → 2020-11-26 | Outpatient (CLI) | payer MEDICARE ==
--- NOTE | 2020-11-26 14:34 | XR ---
EXAMINATION TYPE: XR knee complete RT DATE OF EXAM: 11/26/2020 CLINICAL HISTORY: pain TECHNIQUE: Three views of the right knee are obtained. COMPARISON: None. FINDINGS: There is no acute fracture/dislocation. The tri-compartment joint spaces appear within no rmal limits. The overlying soft tissue appears unremarkable. IMPRESSION: There is no acute fracture or dislocation.ICD 10 NO FRACTURE, INITIAL EVALUATION
== END | disposition home or self-care (01) ==
LOC: RADXRMAIN 14:05
PROVIDERS: ATTEND Family Medicine
DX: M25.561 Pain in right knee (principal)

== ENCOUNTER → 2020-11-29 | Outpatient (CLI) | payer MEDICARE ==
--- NOTE | 2020-11-29 17:49 | CT ---
EXAMINATION TYPE: CT thoracic spine wo con DATE OF EXAM: 11/29/2020 COMPARISON: 04/18/2020 HISTORY: back pain, no injury CT DLP: 963.1 mGycm Automated exposure control for dose reduction was used. Images were obtained from the level of T1-T12 without contrast. Thoracic vertebra have fairly normal alignment. There are rods and screws fusing posteriorly the spin e at T12-L1. There is no significant compression deformity. There is some osteopenia. The posterior e lements are intact. I see no evidence of thoracic paraspinal mass. There is no sign of focal bone fiona truction. There is C7-T1 degenerative spur formation of the endplates. I see no evidence of any signi ficant thoracic spinal stenosis. IMPRESSION: Old posterior fusion surgery at T12-L1. Large hypertrophic posterior osteophyte of the posterior aspe ct of the superior L1 vertebral body appears unchanged compared to the CT scan of 04/18/2020. No fract ure seen.
--- NOTE | 2020-11-29 17:52 | CT ---
EXAMINATION TYPE: CT cervical spine wo con DATE OF EXAM: 11/29/2020 COMPARISON: 04/18/2020 HISTORY: neck pain, no injury CT DLP: 282.2 mGycm Automated exposure control for dose reduction was used. Images were obtained from the skull base to T1 vertebra with no contrast. There is old anterior fusion surgery from C3 to C7. There is obliteration of the disc spaces. There i s multilevel mild facet arthropathy with some ankylotic changes in the facet joints. No fracture line seen. The skull base is intact. The prevertebral soft tissues are intact. There is anterior and post erior spurring of the endplates at C7-T1. I see no evidence of any significant spinal stenosis. IMPRESSION: Extensive multilevel fusion surgery. No acute abnormality. No fracture. No adverse change compared to old exam.
== END | disposition home or self-care (01) ==
LOC: RADCTMAIN 16:47
PROVIDERS: ATTEND Orthopaedic Surgery
DX: M85.80 Other specified disorders of bone density and structure, unspecified site (principal); Z98.1 Arthrodesis status
CPT/HCPCS: 72125; 72128

== ENCOUNTER 2020-12-03 12:15 | Emergency (ER) | payer MEDICARE, OTHER ==
--- NOTE | 2020-12-03 13:20 | US ---
EXAMINATION TYPE: US venous doppler duplex UE RT DATE OF EXAM: 12/03/2020 COMPARISON: NONE CLINICAL HISTORY: r/o dvt. Purple fingers per patient. No redness. No swelling. SIDE PERFORMED: Right Right Arm: Negative for DVT IMPRESSION: Grayscale, color doppler, spectral doppler imaging performed of the deep veins of the upper extremiti es. There is normal flow, compressability and vascular waveforms.
--- NOTE | 2020-12-03 13:23 | ED ---
Extremity Problem HPI - General Chief complaint: Extremity Problem,Nontraumatic Stated complaint: R Hand turning blue, sent by pcp Time Seen by Provider: 12/03/20 12:28 Source: patient Mode of arrival: ambulatory Limitations: no limitations - History of Present Illness Initial comments: 80-year-old female with history of factor V Leiden, PE, DVT presents to emergency Department with a chief complaint of right arm pain. Patient reports since yesterday she has noticed her fingertips are turning blue. Patient reports this is been gradually increasing in severity she does report occasional numbness as well but denies any weakness. States she went to her primary care physician wanted ultrasound to rule out DVT. Patient also reports exertional dyspnea over the last 3 days but denies any chest pain. States that this felt like her previous PE with the exertional dyspnea. She denies any headaches, once the weakness or paresthesias this time. - Related Data Home Medications Medication Instructions Recorded Confirmed RX: Calcium Carb-Vit D 500Mg-5Mcg 1 tab PO DAILY 01/05/14 12/03/20 [Oscal 500+D 5 Mcg (200 Iu)] RX: allopurinoL [Zyloprim] 100 mg PO DAILY 01/05/14 12/03/20 RX: atenoloL [Tenormin] 50 mg PO HS 01/05/14 12/03/20 RX: Levothyroxine Sodium 12.5 mcg PO DAILY 03/16/14 12/03/20 [Synthroid] RX: rOPINIRole HCL [Requip] 4 mg PO HS 03/16/20 12/03/20 RX: Alpha Lipoic Acid 600 mg PO DAILY 07/03/20 12/03/20 RX: Gabapentin [Neurontin] 300 mg PO BID@0800,1300 07/03/20 12/03/20 RX: Gabapentin [Neurontin] 600 mg PO HS 07/03/20 12/03/20 RX: Ipratropium [place] 0.06%Nasal 2 spr EA NOSTRIL BID 07/03/20 12/03/20 [Atrovent Nasal 0.06%] RX: S-Adenosylmethionine Sul Tosyl 1,000 mg PO DAILY 07/03/20 12/03/20 [Nuno-E] RX: Biotin 10 mg PO DAILY 07/15/20 12/03/20 RX: HYDROcodone/APAP 10-325MG 1 tab PO TID PRN 07/15/20 12/03/20 [[place] 10-325] RX: Cholecalciferol [Vitamin D3 25 mcg PO DAILY 08/07/20 12/03/20 (25 Mcg = 1000 Iu)] RX: Dexlansoprazole [Dexilant] 60 mg PO DAILY 08/07/20 12/03/20 RX: Empaglifloz/Linaglip/Metformin 1 tab PO DAILY 09/20/20 12/03/20 [Trijardy Xr 25-5-1,000 mg Tab] RX: Apixaban [Eliquis] 5 mg PO BID 10/06/20 12/03/20 RX: Polyethylene Glycol 3350 17 gm PO DAILY PRN 10/06/20 12/03/20 [Miralax] RX: Temazepam [Restoril] 15 mg PO HS 10/06/20 12/03/20 Cranberry Fruit Extract [Cranberry] 500 mg PO DAILY 12/03/20 12/03/20 methocarbamoL [Robaxin] 500 mg PO TID 12/03/20 12/03/20 rOPINIRole HCL [Requip] 2 mg PO BID@0800,1300 12/03/20 12/03/20 Allergies Allergy/AdvReac Type Severity Reaction Status Date / Time adhesive Allergy red skin, Verified 12/03/20 14:48 blisters cefaclor [From Ceclor] Allergy Rash/Hives Verified 12/03/20 14:48 ciprofloxacin [From Cipro] Allergy Rash/Hives Verified 12/03/20 14:48 ciprofloxacin HCl Allergy Rash/Hives Verified 12/03/20 14:48 [From Cipro] hydromorphone HCl Allergy Anaphylaxis Verified 12/03/20 14:48 [From Dilaudid] Penicillins Allergy Rash/Hives Verified 12/03/20 14:48 sulfamethoxazole AdvReac Abdominal Verified 12/03/20 14:48 [From Bactrim] Pain trimethoprim [From Bactrim] AdvReac Abdominal Verified 12/03/20 14:48 Pain Review of Systems ROS Statement: Those systems with pertinent positive or pertinent negative responses have been documented in the HPI. ROS Other: All systems not noted in ROS Statement are negative. 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, VARICOSE VEINS, GOUT, LYMPHOMA (HX OF CHEMO & RADIATION 1977,1982 & 1993), hx migraines, hx ulcer, constipation, "red spots all over", states difficulty swallowing & having acid reflux., back pain-uses walker., States toenail was "cut back " yesterday 09/19/20, hammer toes. History of Any Multi-Drug Resistant Organisms: None Reported Past Surgical History: Appendectomy, Back Surgery, Breast Surgery, Cholecystectomy, Hysterectomy, Joint Replacement, Orthopedic Surgery, Ton sillectomy Additional Past Surgical History / Comment(s): RIGHT HIP REPAIR, german KNEE REPLACEMENT, rods german thumbs and rt 3rd toe, BREAST & AXILLARY BX, TUMOR IN THROAT REMOVED., CERVICAL FUSION, LUMBAR LAMINECTOMY,DECOMPRESSION-FUSION L1- L2., recent back surgery for nerve and tendons, german cataracts Past Anesthesia/Blood Transfusion Reactions: No Reported Reaction Additional Past Anesthesia/Blood Transfusion Reaction / Comment(s): CLAUSTROPHOBIA Past Psychological History: Anxiety, Depression Smoking Status: Never smoker Past Alcohol Use History: None Reported Past Drug Use History: None Reported - Past Family History Father Family Medical History: Deep Vein Thrombosis (DVT), Pulmonary Embolus Additional Family Medical History / Comment(s): Father at age 32 from pulmonary embolism. Mother Family Medical History: Cancer Additional Family Medical History / Comment(s): . Brother(s) Family Medical History: Cancer, Deep Vein Thrombosis (DVT) Additional Family Medical History / Comment(s): Patient had 2 brothers that have passed one from myocardial infarction and one from pulmonary embolism. 2 brothers are alive and one has lung cancer, one brother is alive with a brain aneurysm and CVA. General Exam Limitations: no limitations General appearance: alert, in no apparent distress Head exam: Present: atraumatic, normocephalic, normal inspection Eye exam: Present: normal appearance, PERRL, EOMI Pupils: Present: normal accommodation ENT exam: Present: normal exam, normal oropharynx, mucous membranes moist Neck exam: Present: normal inspection, full ROM. Absent: tenderness, lymphadenopathy Respiratory exam: Present: normal lung sounds bilaterally. Absent: respiratory distress Cardiovascular Exam: Present: regular rate, normal rhythm, normal heart sounds. Absent: systolic murmur Extremities exam: Present: normal inspection (Ecchymosis on the distal end of right fingers.), full ROM, other (Palpable ulnar a possible early.). Absent: tenderness, normal capillary refill (Slight decrease and Refill on right fingers), pedal edema, joint swelling, calf tenderness Back exam: Present: normal inspection, full ROM. Absent: tenderness, CVA tenderness (R), CVA tenderness (L) Neurological exam: Present: alert, oriented X3 Psychiatric exam: Present: normal affect, normal mood Skin exam: Present: warm, dry, intact, normal color Course Vital Signs 12/03/20 12/03/20 12/03/20 12:23 15:00 16:00 Temperature 97.6 F Pulse Rate 97 93 Respiratory 20 16 16 Rate Blood Pressure 109/78 121/84 O2 Sat by Pulse 99 97 Oximetry Medical Decision Making - Medical Decision Making 80-year-old female with history of factor V Leiden, PE, DVT presents to emergency Department with a chief complaint of right arm pain. On physical exa mination, she has cyanosis on the right hand fingertips. She also reported some pain near the humerus. She is otherwise neurovascularly intact with normal cap refill and palpable ulnar and radial pulses bilaterally. The right hand does not feel colder compared to the left. She also complained of some exertional dyspnea and considering her history of coagulopathy, d-dimer was obtained and it was elevated 0.82. CT angios of the chest showed no signs of pulmonary embolism. After contacting with radiology, we were only able to obtain a right upper extremity with contrast, not not angiography. This revealed no immediate occlusions take a potentially be causing the patient's symptoms. Right upper extremity ultrasound also revealed no acute findings. CBC CMP unremarkable. She does have elevated blood glucose of 292. Initial troponin is negative. Case was discussed with who also agree with the treatment plan. Patient was advised to follow-up with a vascular surgeon. Return parameters were thoroughly discussed the patient is understanding and agreeable. - Lab Data Result diagrams: 12/03/20 13:26 12/03/20 13:26 Lab Results 12/03/20 12/03/20 12/03/20 Range/Units 13:26 13: 13:26 WBC 7.4 (3.8-10.6) k/uL RBC 4.30 (3.80-5.40) m/uL Hgb 12.7 (11.4-16.0) gm/dL Hct 37.8 (34.0-46.0) % MCV 87.7 (80.0-100.0) fL MCH 29.6 (25.0-35.0) pg MCHC 33.7 (31.0-37.0) g/dL RDW 17.2 H (11.5-15.5) % Plt Count 167 (150-450) k/uL MPV 7.3 Neutrophils % (Manual) 74 % Band Neuts % (Manual) 2 % Lymphocytes % (Manual) 15 % Monocytes % (Manual) 8 % Metamyelocytes % 2 % Neutrophils # (Manual) 5.60 (1.3-7.7) k/uL Lymphocytes # (Manual) 1.11 (1.0-4.8) k/uL Monocytes # (Manual) 0.59 (0-1.0) k/uL Metamyelocytes # (Man) 0.15 H (0) k/uL Nucleated RBCs 0 (0-0) /100 WBC Manual Slide Review Performed Anisocytosis Slight PT 9.7 (9.0-12.0) sec INR 0.9 (<1.2) APTT 21.9 L (22.0-30.0) sec D-Dimer 0.82 H (<0.60) mg/L FEU Sodium 141 (137-145) mmol/L Potassium 4.3 (3.5-5.1) mmol/L Chloride 107 (98-107) mmol/L Carbon Dioxide 26 (22-30) mmol/L Anion Gap 8 mmol/L BUN 20 H (7-17) mg/dL Creatinine 0.64 (0.52-1.04) mg/dL Est GFR (CKD-EPI)AfAm >90 (>60 ml/min/1.73 sqM) Est GFR (CKD-EPI)NonAf 86 (>60 ml/min/1.73 sqM) Glucose 292 H (74-99) mg/dL Calcium 9.3 (8.4-10.2) mg/dL Total Bilirubin 0.5 (0.2-1.3) mg/dL AST 25 (14-36) U/L ALT 25 (4-34) U/L Alkaline Phosphatase 83 (38-126) U/L Troponin I (0.000-0.034) ng/mL Total Protein 6.4 (6.3-8.2) g/dL Albumin 4.0 (3.5-5.0) g/dL 12/03/20 Range/Units 13:26 WBC (3.8-10.6) k/uL RBC (3.80-5.40) m/uL Hgb (11.4-16.0) gm/dL Hct (34.0-46.0) % MCV (80.0-100.0) fL MCH (25.0-35.0) pg MCHC (31.0-37.0) g/dL RDW (11.5-15.5) % Plt Count (150-450) k/uL MPV Neutrophils % (Manual) % Band Neuts % (Manual) % Lymphocytes % (Manual) % Monocytes % (Manual) % Metamyelocytes % % Neutrophils # (Manual) (1.3-7.7) k/uL Lymphocytes # (Manual) (1.0-4.8) k/uL Monocytes # (Manual) (0-1.0) k/uL Metamyelocytes # (Man) (0) k/uL Nucleated RBCs (0-0) /100 WBC Manual Slide Review Anisocytosis PT (9.0-12.0) sec INR (<1.2) APTT (22.0-30.0) sec D-Dimer (<0.60) mg/L FEU Sodium (137-145) mmol/L Potassium (3.5-5.1) mmol/L Chloride (98-107) mmol/L Carbon Dioxide (22-30) mmol/L Anion Gap mmol/L BUN (7-17) mg/dL Creatinine (0.52-1.04) mg/dL Est GFR (CKD-EPI)AfAm (>60 ml/min/1.73 sqM) Est GFR (CKD-EPI)NonAf (>60 ml/min/1.73 sqM) Glucose (74-99) mg/dL Calcium (8.4-10.2) mg/dL Total Bilirubin (0.2-1.3) mg/dL AST (14-36) U/L ALT (4-34) U/L Alkaline Phosphatase (38-126) U/L Troponin I <0.012 (0.000-0.034) ng/mL Total Protein (6.3-8.2) g/dL Albumin (3.5-5.0) g/dL - EKG Data EKG Comments: Sinus rhythm, Q wave in lead 3, inverted T waves in V3, right bundle branch block Ventricular rate 93, [place] 156, QRS 100, QTC 452. Disposition Clinical Impression: Cyanosis of fingertip Disposition: HOME SELF-CARE Condition: Stable Instructions (If sedation given, give patient instructions): Peripheral Vascular Angioplasty (DC) Additional Instructions: Follow-up with a vascular surgeon. Return to emergency department if symptoms worsen. Is patient prescribed a controlled substance at d/c from ED?: No Referrals: Alvarez Rocha DO [Primary Care Provider] - 1-2 days Venessa Mortensen DO [STAFF PHYSICIAN] - 1-2 days Time of Disposition: 17:47
[2020-12-03 13:41] LABS: Anisocytosis Slight; HCT 37.8 % (34.0-46.0); HGB 12.7 gm/dL (11.4-16.0); MCH 29.6 pg (25.0-35.0); MCHC 33.7 g/dL (31.0-37.0); MCV 87.7 fL (80.0-100.0); Mean Platelet Volume 7.3; Platelet Count 167 k/uL (150-450); RDW 17.2 % (11.5-15.5); WBC 7.4 k/uL (3.8-10.6)
[2020-12-03 14:02] LABS: ALT 25 U/L (4-34); AST 25 U/L (14-36); African American GFR (CKD) >90 (>60 ml/min/1.73 sqM); Alkaline Phosphatase 83 U/L (38-126); Anion Gap 8 mmol/L; Blood Urea Nitrogen 20 mg/dL (7-17); Calcium 9.3 mg/dL (8.4-10.2); Carbon Dioxide 26 mmol/L (22-30); Chloride 107 mmol/L (98-107); Glucose 292 mg/dL (74-99); Non-African American GFR(CKD) 86 (>60 ml/min/1.73 sqM); Potassium 4.3 mmol/L (3.5-5.1); Sodium 141 mmol/L (137-145); Total Bilirubin 0.5 mg/dL (0.2-1.3); Total Protein 6.4 g/dL (6.3-8.2)
[2020-12-03 14:19] LABS: Band Neutrophils % 2 %; Nucleated Red Blood Cells 0 /100 WBC (0-0)
[2020-12-03 14:21] LABS: Lymphocytes # (M) 1.11 k/uL (1.0-4.8); Metamyelocytes # (M) 0.15 k/uL (0); Metamyelocytes % 2 %; Monocytes # (M) 0.59 k/uL (0-1.0); Neutrophils % (M) 74 %; Total Cells Counted 200
[2020-12-03 14:33] LABS: INR 0.9 (<1.2)
[2020-12-03 14:34] LABS: Partial Thromboplastin Time 21.9 sec (22.0-30.0); Prothrombin Time 9.7 sec (9.0-12.0)
[2020-12-03] MEDS ORDERED: hydrALAZINE HCL 20 MG/ML 1 ML VIAL IVP STA (15:14)
[2020-12-03 16:00] VITALS: RESP 16
[2020-12-03 16:02] VITALS: PULSE 93
--- NOTE | 2020-12-03 17:02 | CT ---
EXAMINATION TYPE: CT chest angio for PE DATE OF EXAM: 12/03/2020 COMPARISON: 03/08/2020 HISTORY: Shortness of breath on exertion. CT DLP: combined DLP: 1166 mGycm Automated exposure control for dose reduction was used. CONTRAST: Performed with IV Contrast, patient injected with 100 mL of Isovue 370. There are 3-D post processed images. Images obtained from the thoracic inlet to the diaphragm. There is some mild interstitial pulmonary density in the paraspinal right upper lobe. There is no pul monary consolidation. There is mild subsegmental atelectasis right lung base. There is mild elevation of the right diaphragm. Heart appears fairly normal. There is no pericardial effusion. There is no p leural effusion. Thoracic aorta is atheromatous. There is moderate plaque formation. There is normal contrast opacification of the pulmonary arteries. There are no filling defect. There is no mediastinal adenopathy. There are no hilar masses. Thoracic spine is intact. Sternum is intact. IMPRESSION: No evidence of pulmonary embolism. Atherosclerotic vascular disease. Mild chronic elevation of the right diaphragm. No change compared to old exam. No suspicious pulmonar y mass.
--- NOTE | 2020-12-03 17:22 | CT ---
EXAMINATION TYPE: CT upper extremity RT w con DATE OF EXAM: 12/03/2020 COMPARISON: HISTORY: Medial fingertip dicoloration for [address] DLP: combined DLP: 1166 mGycm Automated exposure control for dose reduction was used. CONTRAST: Performed with IV Contrast, patient injected with 100 mL of Isovue 370. Images were obtained from the level of the shoulder joint to the fingertips with IV contrast. FINDINGS: There is some spurring at the glenohumeral joint. Scapula is intact. There is arterial flow in the subclavian artery and axillary artery. There is arterial flow in the br achial artery. No stenosis seen. There is arterial flow in the radial and ulnar arteries of the right arm. Arterial flow is seen down to the wrist joint and the palmar arch. Evaluation of the vascularity of the fingers is very limited. I do not see any significant digital artery flow. There is no evidence of a soft tissue mass. I see no focal bone destruction. There is a metal pin in the first metacarpal. The elbow joint is intact. IMPRESSION: No evidence of hemodynamic stenosis of the arteries of the right arm down to the palmar arch.
[2020-12-03 18:14] VITALS: BP 115/81; TEMP 97.9
== END 2020-12-03 18:10 | disposition home or self-care (01) ==
LOC: EC 12:15
DX: R23.0 Cyanosis (principal); I10 Essential (primary) hypertension; E78.5 Hyperlipidemia, unspecified; K21.9 Gastro-esophageal reflux disease without esophagitis; M19.90 Unspecified osteoarthritis, unspecified site; E11.36 Type 2 diabetes mellitus with diabetic cataract; D68.51 Activated protein C resistance; G43.909 Migraine, unspecified, not intractable, without status migrainosus; F41.9 Anxiety disorder, unspecified; F32.9 Major depressive disorder, single episode, unspecified; Z86.718 Personal history of other venous thrombosis and embolism; Z86.711 Personal history of pulmonary embolism; Z86.73 Personal history of transient ischemic attack (TIA), and cerebral infarction without residual deficits; Z79.899 Other long term (current) drug therapy; Z79.01 Long term (current) use of anticoagulants; Z79.84 Long term (current) use of oral hypoglycemic drugs; Z88.0 Allergy status to penicillin
CPT/HCPCS: 36415; 93005; 85379; 80053; 84484; 85025; 85610; 85730; 93971; 73201; 71275; 99285; Q9967

== ENCOUNTER → 2020-12-09 | Outpatient (CLI) | payer MEDICARE ==
--- NOTE | 2020-12-11 09:44 | P.ARTDOP ---
Arterial Doppler Right upper extremity arterial Doppler. Date of study: 12/09/2020 Reason for study: Protracted cyanosis digits of right hand. Findings: Doppler waveforms are multiphasic throughout. We see no significant segmental gradients. Impression: No significant obstructive phenomena and. Color changes most likely related to vasospastic phenomenon. Clinical correlation recommended.
== END | disposition home or self-care (01) ==
LOC: RADUSWWP 12:53
PROVIDERS: ATTEND Family Medicine
DX: R23.0 Cyanosis (principal); R09.02 Hypoxemia
CPT/HCPCS: 93922

== ENCOUNTER 2020-12-17 12:58 | Observation (INO) | payer MEDICARE ==
--- NOTE | 2020-12-17 13:36 | ED ---
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 Patient is on eliquis. Patient started noting some purplish color to her fingertips and saw Dr. Mortensen and she increased her eliquis recently. It is thought that the patient throwing clots and is why she is purplish discoloration. Patient comes in today because she's been extremely weak and went and saw her primary medical care doctor and he told her that she had a urinary tract infection. Patient also complains of some cough. Patient denies any sputum production. Patient states she's mildly short of breath. Patient denies any chest pain or palpitations. Patient denies any abdominal pain. Patient does complain of dysuria and some urinary frequency but she denies any hematuria. - Related Data Home Medications Medication Instructions Recorded Confirmed Calcium Carb-Vit D 500Mg-5Mcg 1 tab PO DAILY 01/05/14 12/17/20 [Oscal 500+D 5 Mcg (200 Iu)] allopurinoL [Zyloprim] 100 mg PO DAILY 01/05/14 12/17/20 atenoloL [Tenormin] 50 mg PO HS 01/05/14 12/17/20 Levothyroxine Sodium [Synthroid] 12.5 mcg PO DAILY 03/16/14 12/17/20 Alpha Lipoic Acid 600 mg PO DAILY 07/03/20 12/17/20 Gabapentin [Neurontin] 300 mg PO TID 07/03/20 12/17/20 Ipratropium [place] 0.06%Nasal 2 spr EA NOSTRIL BID 07/03/20 12/17/20 [Atrovent Nasal 0.06%] Biotin 10 mg PO DAILY 07/15/20 12/17/20 HYDROcodone/APAP 10-325MG [[place] 1 tab PO BID PRN 07/15/20 12/17/20 10-325] Dexlansoprazole [Dexilant] 60 mg PO DAILY 08/07/20 12/17/20 Empaglifloz/Linaglip/Metformin 1 tab PO DAILY 09/20/20 12/17/20 [Trijardy Xr 25-5-1,000 mg Tab] Apixaban [Eliquis] 5 mg PO BID 10/06/20 12/17/20 Polyethylene Glycol 3350 [Miralax] 17 gm PO DAILY PRN 10/06/20 12/17/20 Temazepam [Restoril] 15 mg PO HS 10/06/20 12/17/20 methocarbamoL [Robaxin] 500 mg PO TID 12/03/20 12/17/20 rOPINIRole HCL [Requip] 2 mg PO BID 12/03/20 12/17/20 Cholecalciferol [Vitamin D3 (25 25 mcg PO DAILY 12/17/20 12/17/20 Mcg = 1000 Iu)] DULoxetine HCL [Cymbalta] 60 mg PO DAILY 12/17/20 12/17/20 Estradiol Cream [Estrace Cream 1 gm VAGINAL SUTH 12/17/20 12/17/20 0.01%] Nuno-E 1000mg 1,000 mg PO DAILY 12/17/20 12/17/20 Allergies Allergy/AdvReac Type Severity Reaction Status Date / Time adhesive Allergy red skin, Verified 12/17/20 15:29 blisters cefaclor [From Ceclor] Allergy Rash/Hives Verified 12/17/20 15:29 ciprofloxacin [From Cipro] Allergy Rash/Hives Verified 12/17/20 15:29 ciprofloxacin HCl Allergy Rash/Hives Verified 12/17/20 15:29 [From Cipro] hydromorphone HCl Allergy Anaphylaxis Verified 12/17/20 15:29 [From Dilaudid] Penicillins Allergy Rash/Hives Verified 12/17/20 15:29 clindamycin AdvReac Nausea & Verified 12/17/20 15:29 Vomiting sulfamethoxazole AdvReac Abdominal Verified 12/17/20 15:29 [From Bactrim] Pain trimethoprim [From Bactrim] AdvReac Abdominal Verified 12/17/20 15:29 Pain Review of Systems ROS Statement: Those systems with pertinent positive or pertinent negative responses have been documented in the HPI. ROS Other: All systems not noted in ROS Statement are negative. 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, VARICOSE VEINS, GOUT, LYMPHOMA (HX OF CHEMO & RADIATION 1977,1982 & 1993), hx migraines, hx ulcer, constipation, "red spots all over", states difficulty swallowing & having acid reflux., back pain-uses walker., States toenail was "cut back " yesterday 09/19/20, hammer toes. History of Any Multi-Drug Resistant Organisms: None Reported Past Surgical History: Appendectomy, Back Surgery, Breast Surgery, Cholecystectomy, Hysterectomy, Joint Replacement, Orthopedic Surgery, Tonsillectomy Additional Past Surgical History / Comment(s): RIGHT HIP REPAIR, german KNEE REPLACEMENT, rods german thumbs and rt 3rd toe, BREAST & AXILLARY BX, TUMOR IN THROAT REMOVED., CERVICAL FUSION, LUMBAR LAMINECTOMY,DECOMPRESSION-FUSION L1-L 2., recent back surgery for nerve and tendons, german cataracts Past Anesthesia/Blood Transfusion Reactions: No Reported Reaction Additional Past Anesthesia/Blood Transfusion Reaction / Comment(s): CLAUSTROPHOBIA Past Psychological History: Anxiety, Depression Smoking Status: Never smoker Past Alcohol Use History: None Reported Past Drug Use History: None Reported - Past Family History Father Family Medical History: Deep Vein Thrombosis (DVT), Pulmonary Embolus Additional Family Medical History / Comment(s): Father at age 32 from pulmonary embolism. Mother Family Medical History: Cancer Additional Family Medical History / Comment(s): . Brother(s) Family Medical History: Cancer, Deep Vein Thrombosis (DVT) Additional Family Medical History / Comment(s): Patient had 2 brothers that have passed one from myocardial infarction and one from pulmonary embolism. 2 brothers are alive and one has lung cancer, one brother is alive with a brain aneurysm and CVA. General Exam - General Exam Comments Initial Comments: GENERAL: Patient is well-developed and well-nourished. Patient is nontoxic and well- hydrated and is in mild distress. ENT: Neck is soft and supple. No significant lymphadenopathy is noted. Oropharynx is clear. Moist mucous membranes. Neck has full range of motion without eliciting any pain. EYES: The sclera were anicteric and conjunctiva were pink and moist. Extraocular movements were intact and pupils were equal round and reactive to light. Eyelids were unremarkable. PULMONARY: Unlabored respirations. Good breath sounds bilaterally. No audible rales rhonchi or wheezing was noted. CARDIOVASCULAR: There is a regular rate and rhythm without any murmurs gallops or rubs. ABDOMEN: Soft and nontender with normal bowel sounds. SKIN: Skin is clear with no lesions or rashes and otherwise unremarkable. NEUROLOGIC: Patient is alert and oriented x3. Cranial nerves II through XII are grossly intact. Motor and sensory are also intact. Normal speech, volume and content. Symmetrical smile. MUSCULOSKELETAL: Normal extremities with adequate strength and full range of motion. No lower extremity swelling or edema. No calf tenderness. Finger tips of the right hand are purplish in color and tender to palpation. The arm on the right is normal larger than the left and there is good radial pulses LYMPHATICS: No significant lymphadenopathy is noted PSYCHIATRIC: Normal psychiatric evaluation. Limitations: no limitations Course Vital Signs 12/17/20 12/17/20 12/17/20 13:11 13:42 14:16 Temperature 98.7 F Pulse Rate 102 H 96 Respiratory 18 18 16 Rate Blood Pressure 99/57 111/75 O2 Sat by Pulse 96 96 Oximetry 12/17/20 12/17/20 15:00 16:00 Temperature Pulse Rate 96 96 Respiratory 16 16 Rate Blood Pressure 126/87 O2 Sat by Pulse 96 96 Oximetry Medical Decision Making - Medical Decision Making EKG shows sinus tachycardia at 101 bpm IN interval 242 QRS is 100 QT interval 352 QTC is 456 per patient's EKG shows no ST segment elevation or depression. Patient's urine was infected I started her on 2 g of Rocephin. I consulted Dr. Mortensen. I spoke with Dr. Farooq he agreed to admit the patient admitted the patient and I wrote admitting orders. I continued Rocephin. - Lab Data Result diagrams: 12/17/20 13:40 12/17/20 13:40 Lab Results 12/17/20 12/17/20 12/17/20 Range/Units 13:40 13:40 13:40 WBC 9.5 (3.8-10.6) k/uL RBC 4.78 (3.80-5.40) m/uL Hgb 13.4 (11.4-16.0) gm/dL Hct 42.3 (34.0-46.0) % MCV 88.6 (80.0-100.0) fL MCH 28.2 (25.0-35.0) pg MCHC 31.8 (31.0-37.0) g/dL RDW 18.2 H (11.5-15.5) % Plt Count 184 (150-450) k/uL MPV 7.1 Neutrophils % (Manual) 73 % Band Neuts % (Manual) 1 % Lymphocytes % 7 % Lymphocytes % (Manual) 11 % Monocytes % 11 % Monocytes % (Manual) 12 % Eosinophils % 0 % Basophils % 1 % Metamyelocytes % 1 % Myelocytes % 3 % Neutrophils # 7.6 (1.3-7.7) k/uL Neutrophils # (Manual) 7.00 (1.3-7.7) k/uL Lymphocytes # 0.6 L (1.0-4.8) k/uL Lymphocytes # (Manual) 1.05 (1.0-4.8) k/uL Monocytes # 1.1 H (0-1.0) k/uL Monocytes # (Manual) 1.14 H (0-1.0) k/uL Eosinophils # 0.0 (0-0.7) k/uL Basophils # 0.1 (0-0.2) k/uL Metamyelocytes # (Man) 0.10 H (0) k/uL Myelocytes # (Manual) 0.29 H (0) k/uL Nucleated RBCs 0 (0-0) /100 WBC Manual Slide Review Performed Anisocytosis Slight PT 9.9 (9.0-12.0) sec INR 0.9 (<1.2) APTT 21.3 L (22.0-30.0) sec Sodium 140 (137-145) mmol/L Potassium 3.8 (3.5-5.1) mmol/L Chloride 104 (98-107) mmol/L Carbon Dioxide 23 (22-30) mmol/L Anion Gap 13 mmol/L BUN 20 H (7-17) mg/dL Creatinine 0.57 (0.52-1.04) mg/dL Est GFR (CKD-EPI)AfAm >90 (>60 ml/min/1.73 sqM) Est GFR (CKD-EPI)NonAf 89 (>60 ml/min/1.73 sqM) Glucose 257 H (74-99) mg/dL Plasma Lactic Acid Luis (0.7-2.0) mmol/L Calcium 9.9 (8.4-10.2) mg/dL Magnesium 2.1 (1.6-2.3) mg/dL Total Bilirubin 0.7 (0.2-1.3) mg/dL AST 21 (14-36) U/L ALT 22 (4-34) U/L Alkaline Phosphatase 104 (38-126) U/L Troponin I (0.000-0.034) ng/mL Total Protein 6.9 (6.3-8.2) g/dL Albumin 4.5 (3.5-5.0) g/dL Urine Color Urine Appearance (Clear) Urine pH (5.0-8.0) Ur Specific [place] (1.001-1.035) Urine Protein (Negative) Urine Glucose (UA) (Negative) Urine Ketones (Negative) Urine Blood (Negative) Urine Nitrite (Negative) Urine Bilirubin (Negative) Urine Urobilinogen (<2.0) mg/dL Ur Leukocyte Esterase (Negative) Urine RBC (0-5) /hpf Urine WBC (0-5) /hpf Ur Squamous Epith Cells (0-4) /hpf 12/17/20 12/17/20 12/17/20 Range/Units 13:40 13:40 14:00 WBC (3.8-10.6) k/uL RBC (3.80-5.40) m/uL Hgb (11.4-16.0) gm/dL Hct (34.0-46.0) % MCV (80.0-100.0) fL MCH (25.0-35.0) pg MCHC (31.0-37.0) g/dL RDW (11.5-15.5) % Plt Count (150-450) k/uL MPV Neutrophils % (Manual) % Band Neuts % (Manual) % Lymphocytes % % Lymphocytes % (Manual) % Monocytes % % Monocytes % (Manual) % Eosinophils % % Basophils % % Metamyelocytes % % Myelocytes % % Neutrophils # (1.3-7.7) k/uL Neutrophils # (Manual) (1.3-7.7) k/uL Lymphocytes # (1.0-4.8) k/uL Lymphocytes # (Manual) (1.0-4.8) k/uL Monocytes # (0-1.0) k/uL Monocytes # (Manual) (0-1.0) k/uL Eosinophils # (0-0.7) k/uL Basophils # (0-0.2) k/uL Metamyelocytes # (Man) (0) k/uL Myelocytes # (Manual) (0) k/uL Nucleated RBCs (0-0) /100 WBC Manual Slide Review Anisocytosis PT (9.0-12.0) sec INR (<1.2) APTT (22.0-30.0) sec Sodium (137-145) mmol/L Potassium (3.5-5.1) mmol/L Chloride (98-107) mmol/L Carbon Dioxide (22-30) mmol/L Anion Gap mmol/L BUN (7-17) mg/dL Creatinine (0.52-1.04) mg/dL Est GFR (CKD-EPI)AfAm (>60 ml/min/1.73 sqM) Est GFR (CKD-EPI)NonAf (>60 ml/min/1.73 sqM) Glucose (74-99) mg/dL Plasma Lactic Acid Luis 2.0 (0.7-2.0) mmol/L Calcium (8.4-10.2) mg/dL Magnesium (1.6-2.3) mg/dL Total Bilirubin (0.2-1.3) mg/dL AST (14-36) U/L ALT (4-34) U/L Alkaline Phosphatase (38-126) U/L Troponin I <0.012 (0.000-0.034) ng/mL Total Protein (6.3-8.2) g/dL Albumin (3.5-5.0) g/dL Urine Color Dark Yellow Urine Appearance Cloudy H (Clear) Urine pH 5.5 (5.0-8.0) Ur Specific [place] 1.035 (1.001-1.035) Urine Protein 1+ H (Negative) Urine Glucose (UA) 4+ H (Negative) Urine Ketones Trace H (Negative) Urine Blood Moderate H (Negative) Urine Nitrite Positive H (Negative) Urine Bilirubin Negative (Negative) Urine Urobilinogen <2.0 (<2.0) mg/dL Ur Leukocyte Esterase Large H (Negative) Urine RBC 62 H (0-5) /hpf Urine WBC >182 H (0-5) /hpf Ur Squamous Epith Cells 2 (0-4) /hpf Disposition Clinical Impression: Generalized weakness, Urinary tract infection, Subclavian vein thrombosis Disposition: ADMITTED IP TO THIS HOSP Referrals: Alvarez Rocha DO [Primary Care Provider] - 1-2 days Time of Disposition: 17:25
--- NOTE | 2020-12-17 13:55 | XR ---
EXAMINATION TYPE: XR chest 2V DATE OF EXAM: 12/17/2020 COMPARISON: 04/17/2020 HISTORY: Weakness, shortness of breath, tachycardia TECHNIQUE: Frontal and lateral views of the chest are obtained. FINDINGS: Low lung volumes. Heart size is within normal limits. Atherosclerotic aorta. No focal cons olidation, pneumothorax or pleural effusion. There is mild asymmetric elevation of the right hemidiap hragm. Consider diaphragmatic paralysis. Osteopenia and degenerative changes of the thoracic spine. IMPRESSION: 1. Mild chronic unilateral elevation of the right hemidiaphragm is similar to prior exam. Consider un ilateral diaphragmatic paralysis. 2. No acute pulmonary disease.
[2020-12-17 13:57] LABS: ALT 22 U/L (4-34); AST 21 U/L (14-36); African American GFR (CKD) >90 (>60 ml/min/1.73 sqM); Albumin 4.5 g/dL (3.5-5.0); Alkaline Phosphatase 104 U/L (38-126); Anion Gap 13 mmol/L; Blood Urea Nitrogen 20 mg/dL (7-17); Calcium 9.9 mg/dL (8.4-10.2); Carbon Dioxide 23 mmol/L (22-30); Chloride 104 mmol/L (98-107); Glucose 257 mg/dL (74-99); Magnesium 2.1 mg/dL (1.6-2.3); Non-African American GFR(CKD) 89 (>60 ml/min/1.73 sqM); Potassium 3.8 mmol/L (3.5-5.1); Sodium 140 mmol/L (137-145); Total Bilirubin 0.7 mg/dL (0.2-1.3); Total Protein 6.9 g/dL (6.3-8.2)
[2020-12-17 13:58] LABS: Anisocytosis Slight; Basophils # (A) 0.1 k/uL (0-0.2); Basophils % (A) 1 %; Eosinophils % (A) 0 %; HCT 42.3 % (34.0-46.0); HGB 13.4 gm/dL (11.4-16.0); Lymphocytes # (A) 0.6 k/uL (1.0-4.8); Lymphocytes % (A) 7 %; MCH 28.2 pg (25.0-35.0); MCHC 31.8 g/dL (31.0-37.0); MCV 88.6 fL (80.0-100.0); Mean Platelet Volume 7.1; Monocytes # (A) 1.1 k/uL (0-1.0); Monocytes % (A) 11 %; Neutrophils # (A) 7.6 k/uL (1.3-7.7); Platelet Count 184 k/uL (150-450); RBC 4.78 m/uL (3.80-5.40); RDW 18.2 % (11.5-15.5); WBC 9.5 k/uL (3.8-10.6)
[2020-12-17 14:09] LABS: INR 0.9 (<1.2); Prothrombin Time 9.9 sec (9.0-12.0)
[2020-12-17 14:12] LABS: Partial Thromboplastin Time 21.3 sec (22.0-30.0)
[2020-12-17 14:25] LABS: Appearance,Urine Cloudy (Clear); Bilirubin,Urine Negative (Negative); Blood,Urine Moderate (Negative); Color,Urine Dark Yellow; Glucose,Urine (UA) 4+ (Negative); Ketones,Urine Trace (Negative); Leukocyte Esterase,Urine Large (Negative); Nitrite,Urine Positive (Negative); PH, Urine 5.5 (5.0-8.0); Protein,Urine 1+ (Negative); RBC,Urine 62 /hpf (0-5); Specific Gravity,Urine 1.035 (1.001-1.035); Squamous Epithelial Cell,Urine 2 /hpf (0-4); Urobilinogen,Urine <2.0 mg/dL (<2.0); WBC,Urine >182 /hpf (0-5)
[2020-12-17 15:09] LABS: Band Neutrophils % 1 %; Lymphocytes # (M) 1.05 k/uL (1.0-4.8); Metamyelocytes % 1 %; Monocytes # (M) 1.14 k/uL (0-1.0); Myelocytes # (M) 0.29 k/uL (0); Myelocytes % 3 %; Neutrophils % (M) 73 %; Nucleated Red Blood Cells 0 /100 WBC (0-0); Total Cells Counted 200
[2020-12-17] MEDS ORDERED: SODIUM CHLORIDE 0.9% 1,000 ML IV ONE (17:36)
[2020-12-17 20:15] LABS: Glucose,Whole Blood 221 mg/dL (75-99)
[2020-12-17] MEDS ORDERED: polyethylene glycoL 3350 17 GM POWD.PACK PO PRN (20:59)
[2020-12-17] MEDS ORDERED: HYDROcodone/APAP 10-325MG 1 EACH TAB PO PRN (20:59)
[2020-12-17] MEDS: APIXABAN 5 MG TAB PO SCH (21:24)
[2020-12-17] MEDS: GABAPENTIN 300 MG CAP PO SCH (21:25)
[2020-12-17] MEDS: TEMAZEPAM 15 MG CAP PO SCH (21:25)
[2020-12-17] MEDS: atenoloL 50 MG TAB PO SCH (21:26)
[2020-12-17] MEDS: methocarbamoL 500 MG TAB PO SCH (21:26)
[2020-12-17] MEDS: IPRATROPIUM BROMIDE 0.06% NASAL SPRAY (15 ML) EA NOSTRIL SCH (21:28)
[2020-12-18] MEDS: LEVOTHYROXINE 25 MCG TAB PO SCH (05:53)
[2020-12-18 07:10] LABS: Glucose,Whole Blood 151 mg/dL (75-99)
--- NOTE | 2020-12-18 08:00 | P.HPIM ---
History of Present Illness H&P Date: 12/17/20 HISTORY OF PRESENT ILLNESS This is a 80-year-old female one of Dr. Rocha patient with past medical history of type 2 diabetes, non-Hodgkin's lymphoma [place] [address] Monaco and follows with Dr. Aranda status post chemotherapy and radiation therapy, TIA 5 years ago, hypertension, hyperlipidemia, hypertension, hypothyroidism, restless leg syndrome, recurrent depression, and osteoarthritis who has been treated for lower back pain post multiple lower back surgery and epidural injection with pain management at [facility], previous admission for acute GI bleed and acute blood loss anemia status post EGD and colonoscopy which revealed antral gastritis, area of ulceration, nonbleeding, in the distal transverse colon, pulmonary embolism and left lower leg DVT diagnosed 03/08/2020 on eliquis. She recently underwent revision T12-L2 fusion and decompression in in March 2020. Patient was seen recently with Dr. Mortensen for change in the color of her fingertip under Eliquis was increased from 2.5-5 mg twice a day as she omits the blood clot issue. Patient symptoms become much worse she was seen at her primary care physician who was concerned about blood clot in the subclavian area with a change consistent with possible acute thrombus see send her to the emergency department at [facility] where was seen and evaluated she was started on mild hydration she is in slight bit discomforted time patient will be hospitalized will be seen vascular and might need to go for angiogram to exclude any arterial thrombus. Beside patient's current complain patient has been complaining of dysuria frequency urgency and recurrent UTI. Also has been complaining of debility has been difficult since her back surgery and for the last few month patient is not doing well mobility galeas, her family are trying to take care of her at home with extra help has been difficult so far. REVIEW OF SYSTEMS Constitutional: No fever, no chills, no night sweats. No weight change. Reports weakness, reports fatigue denies lethargy. No daytime sleepiness. EENT: No headache. No blurred vision or double vision, no loss of vision. No loss of Hearing, no ringing in the ears, Reports dizziness. No nasal drainage or congestion. No epistaxis. No sore throat. Lungs: Denies shortness of breath, cough, no sputum production. No wheezing. Cardiovascular: No chest pain, no left lower extremity edema. No palpitations. No paroxysmal nocturnal dyspnea. No orthopnea. No lightheadedness or dizziness. No syncopal episodes. Abdominal: No abdominal pain. No nausea, vomiting. No diarrhea. No constipation. No bloody or tarry stools.. No loss of appetite. Genitourinary: No dysuria, increased frequency, urgency. No urinary retention. Reports incontinence, loss of bladder control Musculoskeletal: No myalgias. Reports muscle weakness, reports gait dysfunction, reports 2 falls. Reports back pain. No neck pain. Integumentary: No wounds, no lesions. No rash or pruritus. No unusual bruising. Slight purple color of the fingertip with possibility of arterial thrombus. Neurologic: No aphasia. No facial droop. No change in mentation. No head injury. No headache. No paralysis. No paresthesia. Psychiatric: No depression. No anxiety. No mood swings. Endocrine: No abnormal blood sugars. SOCIAL HISTORY Patient is a lifelong nonsmoker. No alcohol use, marijuana use, illicit drug use. 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 Patient lives alone with her daughter. She ambulates with a walker. She has been at [facility] for subacute rehab in the past. FAMILY HISTORY Mother in her late 80s from breast cancer and dementia. Father at age 32 from pulmonary embolism and DVT. Patient has 2 brothers and a past, one from myocardial infarction and one from pulmonary embolism. 2 brothers are alive and one has lung cancer and one living brother has a brain aneurysm and CVA. Patient has 5 biological children with no major medical problems. PHYSICAL EXAMINATION Gen: This is A 80-year-old female. Patient is resting in bed appears to be comfortable and in no acute distress. No respiratory distress is noted. HEENT: Head is atraumatic, normocephalic. Pupils equal, round. Sclerae is anicteric. NECK: Supple. No JVD. No lymphadenopathy. No thyromegaly. LUNGS: Clear to auscultation. No wheezes or rhonchi. No intercostal retractions. HEART: Regular rate and rhythm. No murmur. ABDOMEN: Soft. Bowel sounds are present. No masses. Mild right lower quadrant tenderness. BACK: Surgical wound is healed. No drainage, erythema. No deformity noted. EXTREMITIES: No pedal edema. No calf tenderness. Dorsalis pedis palpable bilaterally. Left foot drop, slight discoloration of the color of her fingertip especially the left side with slight discomfort as well. NEUROLOGICAL: Patient is awake, alert and oriented x3. Cranial nerves 2 through 12 are grossly intact. ASSESSMENT AND PLAN 1. Possible new subclavian thrombus: Patient has been on anticoagulation we'll consult vascular and might need to go for intervention with venogram or angiogram for further determination whether she need thrombectomy or not. The meanwhile continue to watch for any significant change in the peripheral circulation might require urgent surgery. 2. Recurrent UTI without any sign of urosepsis at this point, patient will be on Rocephin and waiting for culture for final management and time for an outpatient antibiotics. 3. Severe generalized fatigue and debility: Most likely from the overall progression she had with her back, spine, recurrent infection, circulation, blood clotting and pulmonary embolism and overall condition. Patient will be evaluated by social work coordinator for possible rehab in the meanwhile start physical therapy and the patient therapy. 4. Right lower lobe pulmonary embolism. Eliquis 5 mg twice daily on hold. 5. Diabetes mellitus type 2. Recheck Hemoglobin A1c. Patient will be on NovoLog scale before meals and at bedtime. 6. Non-Hodgkin's lymphoma [place] [address] Monaco and follows with Dr. Aranda, in remission. 7. History of TIA with no deficits. 8. 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 Continue gabapentin 300 mg twice daily and 600 at bedtime. 9. Hypertension. Hold amlodipine 5 mg daily, continue atenolol 50 mg twice daily. 10. Hypothyroidism. Continue levothyroxine 12.5 g daily. 11. Seasonal ALLERGIES. Continue Singulair 10 mg at bedtime. 12. Recurrent depression. Continue Prozac 30 mg daily. 13. Chronic gout. Continue allopurinol 100 mg daily. 14. Hyperlipidemia. Patient is not currently on statin. 15. Restless leg syndrome. Continue Requip. 16. GERD and GI prophylaxis. Protonix COVID-19 testing: Patient was negative Patient admitted to the hospital in pandemic time for a minimum of 2 night stay. 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, VARICOSE VEINS, GOUT, LYMPHOMA (HX OF CHEMO & RADIATION 1977,1982 & 1993), hx migraines, hx ulcer, constipation, "red spots all over", states difficulty swallowing & having acid reflux., back pain-uses walker., States toenail was "cut back " yesterday 09/19/20, hammer toes. History of Any Multi-Drug Resistant Organisms: None Reported Past Surgical History: Appendectomy, Back Surgery, Breast Surgery, Cholecystectomy, Hysterectomy, Joint Replacement, Orthopedic Surgery, To nsillectomy Additional Past Surgical History / Comment(s): RIGHT HIP REPAIR, german KNEE REPLACEMENT, rods german thumbs and rt 3rd toe, BREAST & AXILLARY BX, TUMOR IN THROAT REMOVED., CERVICAL FUSION, LUMBAR LAMINECTOMY,DECOMPRESSION-FUSION L1- L2., recent back surgery for nerve and tendons, german cataracts Past Anesthesia/Blood Transfusion Reactions: No Reported Reaction Additional Past Anesthesia/Blood Transfusion Reaction / Comment(s): CLAUSTROPHOBIA Past Psychological History: Anxiety, Depression Smoking Status: Never smoker Past Alcohol Use History: None Reported Past Drug Use History: None Reported - Past Family History Father Family Medical History: Deep Vein Thrombosis (DVT), Pulmonary Embolus Additional Family Medical History / Comment(s): Father at age 32 from pulmonary embolism. Mother Family Medical History: Cancer Additional Family Medical History / Comment(s): . Brother(s) Family Medical History: Cancer, Deep Vein Thrombosis (DVT) Additional Family Medical History / Comment(s): Patient had 2 brothers that have passed one from myocardial infarction and one from pulmonary embolism. 2 brothers are alive and one has lung cancer, one brother is alive with a brain aneurysm and CVA. Medications and Allergies Home Medications Medication Instructions Recorded Confirmed Type Calcium Carb-Vit D 500Mg-5Mcg 1 tab PO DAILY 01/05/14 12/17/20 History [Oscal 500+D 5 Mcg (200 Iu)] allopurinoL [Zyloprim] 100 mg PO DAILY 01/05/14 12/17/20 History atenoloL [Tenormin] 50 mg PO HS 01/05/14 12/17/20 History Levothyroxine Sodium [Synthroid] 12.5 mcg PO DAILY 03/16/14 12/17/20 History Alpha Lipoic Acid 600 mg PO DAILY 07/03/20 12/17/20 History Gabapentin [Neurontin] 300 mg PO TID 07/03/20 12/17/20 History Ipratropium [place] 0.06%Nasal 2 spr EA NOSTRIL BID 07/03/20 12/17/20 History [Atrovent Nasal 0.06%] Biotin 10 mg PO DAILY 07/15/20 12/17/20 History HYDROcodone/APAP 10-325MG [[place] 1 tab PO BID PRN 07/15/20 12/17/20 History 10-325] Dexlansoprazole [Dexilant] 60 mg PO DAILY 08/07/20 12/17/20 History Empaglifloz/Linaglip/Metformin 1 tab PO DAILY 09/20/20 12/17/20 History [Trijardy Xr 25-5-1,000 mg Tab] Apixaban [Eliquis] 5 mg PO BID 10/06/20 12/17/20 History Polyethylene Glycol 3350 [Miralax] 17 gm PO DAILY PRN 10/06/20 12/17/20 History Temazepam [Restoril] 15 mg PO HS 10/06/20 12/17/20 History methocarbamoL [Robaxin] 500 mg PO TID 12/03/20 12/17/20 History rOPINIRole HCL [Requip] 2 mg PO BID 12/03/20 12/17/20 History Cholecalciferol [Vitamin D3 (25 25 mcg PO DAILY 12/17/20 12/17/20 History Mcg = 1000 Iu)] DULoxetine HCL [Cymbalta] 60 mg PO DAILY 12/17/20 12/17/20 History Estradiol Cream [Estrace Cream 1 gm VAGINAL SUTH 12/17/20 12/17/20 History 0.01%] Nuno-E 1000mg 1,000 mg PO DAILY 12/17/20 12/17/20 History Allergies Allergy/AdvReac Type Severity Reaction Status Date / Time adhesive Allergy red skin, Verified 12/17/20 15:29 blisters cefaclor [From Ceclor] Allergy Rash/Hives Verified 12/17/20 15:29 ciprofloxacin [From Cipro] Allergy Rash/Hives Verified 12/17/20 15:29 ciprofloxacin HCl Allergy Rash/Hives Verified 12/17/20 15:29 [From Cipro] hydromorphone HCl Allergy Anaphylaxis Verified 12/17/20 15:29 [From Dilaudid] Penicillins Allergy Rash/Hives Verified 12/17/20 15:29 clindamycin AdvReac Nausea & Verified 12/17/20 15:29 Vomiting sulfamethoxazole AdvReac Abdominal Verified 12/17/20 15:29 [From Bactrim] Pain trimethoprim [From Bactrim] AdvReac Abdominal Verified 12/17/20 15:29 Pain Physical Exam Vitals: Vital Signs Temp Pulse Pulse Resp BP BP Pulse Ox 12/17/20 20:00 97.9 F 98 18 101/69 97 12/17/20 19:05 98.7 F 100 16 111/83 96 12/17/20 19:00 16 96 12/17/20 18:00 100 16 111/83 96 12/17/20 17:00 92 16 115/78 96 12/17/20 16:00 96 16 126/87 96 12/17/20 15:00 96 16 96 12/17/20 14:16 96 16 111/75 96 12/17/20 13:42 18 12/17/20 13:11 98.7 F 102 H 18 99/57 96 Intake and Output 12/17/20 12/17/20 12/17/20 06:59 14:59 22:59 Other: Weight 63.049 kg Results CBC & Chem 7: 12/17/20 13:40 12/17/20 13:40 Labs: Abnormal Lab Results - Last 24 Hours (Table) 12/17/20 12/17/20 12/17/20 Range/Units 13:40 13:40 13:40 RDW 18.2 H (11.5-15.5) % Lymphocytes # 0.6 L (1.0-4.8) k/uL Monocytes # 1.1 H (0-1.0) k/uL Monocytes # (Manual) 1.14 H (0-1.0) k/uL Metamyelocytes # (Man) 0.10 H (0) k/uL Myelocytes # (Manual) 0.29 H (0) k/uL APTT 21.3 L (22.0-30.0) sec BUN 20 H (7-17) mg/dL Glucose 257 H (74-99) mg/dL POC Glucose (mg/dL) (75-99) mg/dL Urine Appearance (Clear) Urine Protein (Negative) Urine Glucose (UA) (Negative) Urine Ketones (Negative) Urine Blood (Negative) Urine Nitrite (Negative) Ur Leukocyte Esterase (Negative) Urine RBC (0-5) /hpf Urine WBC (0-5) /hpf 12/17/20 12/17/20 Range/Units 14:00 20:13 RDW (11.5-15.5) % Lymphocytes # (1.0-4.8) k/uL Monocytes # (0-1.0) k/uL Monocytes # (Manual) (0-1.0) k/uL Metamyelocytes # (Man) (0) k/uL Myelocytes # (Manual) (0) k/uL APTT (22.0-30.0) sec BUN (7-17) mg/dL Glucose (74-99) mg/dL POC Glucose (mg/dL) 221 H (75-99) mg/dL Urine Appearance Cloudy H (Clear) Urine Protein 1+ H (Negative) Urine Glucose (UA) 4+ H (Negative) Urine Ketones Trace H (Negative) Urine Blood Moderate H (Negative) Urine Nitrite Positive H (Negative) Ur Leukocyte Esterase Large H (Negative) Urine RBC 62 H (0-5) /hpf Urine WBC >182 H (0-5) /hpf
[2020-12-18] MEDS: allopurinoL 100 MG TAB PO SCH (08:27)
[2020-12-18] MEDS: APIXABAN 5 MG TAB PO SCH ×2 (08:27→21:25)
[2020-12-18] MEDS: DULoxetine HCL 60 MG CAPSULE.DR PO SCH (08:27)
[2020-12-18] MEDS: CALCIUM CARB-VIT D 500 MG-5 MCG TAB PO SCH (08:27)
[2020-12-18] MEDS: INSULIN ASPART (NovoLOG) 100 UNIT/ML VIAL SQ SCH ×4 (08:27→22:28)
[2020-12-18] MEDS: PANTOPRAZOLE 40 MG TABLET PO SCH (08:27)
[2020-12-18] MEDS: GABAPENTIN 300 MG CAP PO SCH ×3 (08:27→21:25)
[2020-12-18] MEDS: methocarbamoL 500 MG TAB PO SCH ×3 (08:27→21:25)
[2020-12-18] MEDS: CHOLECALCIFEROL 25 MCG (1000 IU) TABLET PO SCH (08:27)
[2020-12-18] MEDS ORDERED: NON FORMULARY DRUG (Alpha Lipoic Acid [Alpha Lipoic Acid] 600 MG Tablet) PO SCH (09:00)
[2020-12-18] MEDS ORDERED: S ADENOSYLMETHIONINE PO SCH (09:00)
[2020-12-18] MEDS ORDERED: NON FORMULARY DRUG (Biotin [Biotin] 5 MG Capsule) PO SCH (09:00)
--- NOTE | 2020-12-18 10:43 | P.PN ---
Subjective Progress Note Date: 12/18/20 HISTORY OF PRESENT ILLNESS This is a 80-year-old female one of Dr. Rocha patient with past medical history of type 2 diabetes, non-Hodgkin's lymphoma [place] [address] Monaco and follows with Dr. Aranda status post chemotherapy and radiation therapy, TIA 5 years ago, hypertension, hyperlipidemia, hypertension, hypothyroidism, restless leg syndrome, recurrent depression, and osteoarthritis who has been treated for lower back pain post multiple lower back surgery and epidural injection with pain management at [facility], previous admission for acute GI bleed and acute blood loss anemia status post EGD and colonoscopy which revealed antral gastritis, area of ulceration, nonbleeding, in the distal transverse colon, pulmonary embolism and left lower leg DVT diagnosed 03/08/2020 on eliquis. She recently underwent revision T12-L2 fusion and decompression in in March 2020. Patient was seen recently with Dr. Mortensen for change in the color of her fingertip under Eliquis was increased from 2.5-5 mg twice a day as she omits the blood clot issue. Patient symptoms become much worse she was seen at her primary care physician who was concerned about blood clot in the subclavian area with a change consistent with possible acute thrombus see send her to the emergency department at [facility] where was seen and evaluated she was started on mild hydration she is in slight bit discomforted time patient will be hospitalized will be seen vascular and might need to go for angiogram to exclude any arterial thrombus. Beside patient's current complain patient has been complaining of dysuria frequency urgency and recurrent UTI. Also has been complaining of debility has been difficult since her back surgery and for the last few month patient is not doing well mobility galeas, her family are trying to take care of her at home with extra help has been difficult so far. 12/18: Patient is scheduled to see vascular surgery today. She is complaining of pain and dusky nevus to the tip of her fingers. She does have strong brachial, ulnar and radial pulses. Her blood sugars have been running between 151 and 221. She's been afebrile, heart rate 92, blood pressure 106/74 and pulse ox 99% on room air. Patient is on ceftriaxone for urinary tract infection. Discussed discharge planning with the patient and she states that she is now living with her daughter and plans that she'll most likely return home. PT in place. REVIEW OF SYSTEMS Constitutional: No fever, no chills, no night sweats. No weight change. Reports weakness, reports fatigue denies lethargy. No daytime sleepiness. EENT: No headache. No blurred vision or double vision, no loss of vision. No loss of Hearing, no ringing in the ears, Reports dizziness. No nasal drainage or congestion. No epistaxis. No sore throat. Lungs: Denies shortness of breath, cough, no sputum production. No wheezing. Cardiovascular: No chest pain, no left lower extremity edema. No palpitations. No paroxysmal nocturnal dyspnea. No orthopnea. No lightheadedness or dizziness. No syncopal episodes. Abdominal: No abdominal pain. No nausea, vomiting. No diarrhea. No constipation. No bloody or tarry stools.. No loss of appetite. Genitourinary: No dysuria, increased frequency, urgency. No urinary retention. Reports incontinence, loss of bladder control Musculoskeletal: No myalgias. Reports muscle weakness, reports gait dysfunction, reports 2 falls. Reports back pain. No neck pain. Integumentary: No wounds, no lesions. No rash or pruritus. No unusual bruising. Slight purple color of the fingertip with pain with possibility of arterial thrombus. Neurologic: No aphasia. No facial droop. No change in mentation. No head injury. No headache. No paralysis. No paresthesia. Psychiatric: No depression. No anxiety. No mood swings. Endocrine: No abnormal blood sugars. PHYSICAL EXAMINATION Gen: This is A 80-year-old female. Patient is resting in bed appears to be comfortable and in no acute distress. No respiratory distress is noted. HEENT: Head is atraumatic, normocephalic. Pupils equal, round. Sclerae is anicteric. NECK: Supple. No JVD. No lymphadenopathy. No thyromegaly. LUNGS: Clear to auscultation. No wheezes or rhonchi. No intercostal retractions. HEART: Regular rate and rhythm. No murmur. ABDOMEN: Soft. Bowel sounds are present. No masses. Mild right lower quadrant tenderness. BACK: Surgical wound is healed. No drainage, erythema. No deformity noted. EXTREMITIES: No pedal edema. No calf tenderness. Dorsalis pedis palpable bilaterally. Left foot drop, slight discoloration of the color of her fingertip especially the left side with slight discomfort as well. NEUROLOGICAL: Patient is awake, alert and oriented x3. Cranial nerves 2 through 12 are grossly intact. ASSESSMENT AND PLAN 1. Possible new subclavian thrombus: Patient has been on anticoagulation. Consult vascular surgery, might need to go for intervention with venogram or angiogram for further determination whether she need thrombectomy or not. The meanwhile continue to watch for any significant change in the peripheral circulation might require urgent surgery. 2. Recurrent UTI without any sign of urosepsis at this point, patient will be on Rocephin and waiting for culture for final management and time for an outpatient antibiotics. Continue Rocephin 3. Severe generalized fatigue and debility: Most likely from the overall progression she had with her back, spine, recurrent infection, circulation, blood clotting and pulmonary embolism and overall condition. Patient will be evaluated by social worker psychiatric for possible rehab in the meanwhile start physical therapy and the patient therapy. 4. Right lower lobe pulmonary embolism. Eliquis 5 mg twice daily on hold. 5. Diabetes mellitus type 2. Recheck Hemoglobin A1c. Patient will be on NovoLog scale before meals and at bedtime. 6. Non-Hodgkin's [place] [address] Monaco and follows with Dr. Aranda, in remission. 7. History of TIA with no deficits. 8. 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 Continue gabapentin 300 mg twice daily and 600 at bedtime. 9. Hypertension. Hold amlodipine 5 mg daily, continue atenolol 50 mg twice daily. 10. Hypothyroidism. Continue levothyroxine 12.5 g daily. 11. Seasonal ALLERGIES. Continue Singulair 10 mg at bedtime. 12. Recurrent depression. Continue Prozac 30 mg daily. 13. Chronic gout. Continue allopurinol 100 mg daily. 14. Hyperlipidemia. Patient is not currently on statin. 15. Restless leg syndrome. Continue Requip. 16. GERD and GI prophylaxis. Protonix COVID-19 testing: Patient was negative DISCHARGE PLAN Is likely return home. PT in place. Impression and plan of care have been directed as dictated by the signing physician. Karen Quintero nurse practitioner acting as scribe for signing physician. Objective - Vital Signs Vital signs: Vital Signs Temp 97.6 F 12/18/20 05:31 Pulse 92 12/18/20 05:31 Resp 16 12/18/20 05:31 BP 106/74 12/18/20 05:31 Pulse Ox 99 12/18/20 05:31 Intake & Output 12/17/20 12/18/20 12/18/20 18:59 06:59 18:59 Weight 63.049 kg 63.049 kg Other: Voiding Method Toilet # Voids 3 3 - Labs CBC & Chem 7: 12/17/20 13:40 12/17/20 13:40 Labs: Abnormal Lab Results - Last 24 Hours (Table) 12/17/20 12/17/20 12/17/20 Range/Units 13:40 13:40 13:40 RDW 18.2 H (11.5-15.5) % Lymphocytes # 0.6 L (1.0-4.8) k/uL Monocytes # 1.1 H (0-1.0) k/uL Monocytes # (Manual) 1.14 H (0-1.0) k/uL Metamyelocytes # (Man) 0.10 H (0) k/uL Myelocytes # (Manual) 0.29 H (0) k/uL APTT 21.3 L (22.0-30.0) sec BUN 20 H (7-17) mg/dL Glucose 257 H (74-99) mg/dL POC Glucose (mg/dL) (75-99) mg/dL Urine Appearance (Clear) Urine Protein (Negative) Urine Glucose (UA) (Negative) Urine Ketones (Negative) Urine Blood (Negative) Urine Nitrite (Negative) Ur Leukocyte Esterase (Negative) Urine RBC (0-5) /hpf Urine WBC (0-5) /hpf 12/17/20 12/17/20 12/18/20 Range/Units 14:00 20:13 07:03 RDW (11.5-15.5) % Lymphocytes # (1.0-4.8) k/uL Monocytes # (0-1.0) k/uL Monocytes # (Manual) (0-1.0) k/uL Metamyelocytes # (Man) (0) k/uL Myelocytes # (Manual) (0) k/uL APTT (22.0-30.0) sec BUN (7-17) mg/dL Glucose (74-99) mg/dL POC Glucose (mg/dL) 221 H 151 H (75-99) mg/dL Urine Appearance Cloudy H (Clear) Urine Protein 1+ H (Negative) Urine Glucose (UA) 4+ H (Negative) Urine Ketones Trace H (Negative) Urine Blood Moderate H (Negative) Urine Nitrite Positive H (Negative) Ur Leukocyte Esterase Large H (Negative) Urine RBC 62 H (0-5) /hpf Urine WBC >182 H (0-5) /hpf Microbiology - Last 24 Hours (Table) 12/17/20 14:00 Urine Culture - Preliminary Urine,Voided
[2020-12-18 11:37] LABS: Glucose,Whole Blood 189 mg/dL (75-99)
[2020-12-18] MEDS: IPRATROPIUM BROMIDE 0.06% NASAL SPRAY (15 ML) EA NOSTRIL SCH ×2 (11:49→22:29)
--- NOTE | 2020-12-18 12:02 | P.GSCN ---
History of Present Illness Consult date: 12/18/20 Reason for Consult: Right subclavian thrombus Requesting physician: Carlos Enrique Farooq History of present illness: This is a pleasant 72-year-old female who presented to the emergency room for complaints of weakness. She has a past medical history that includes factor V Leiden, diabetes mellitus, DVT, pulmonary embolism, GERD, hyperlipidemia, hypertension, osteoarthritis, thyroid disorder, syncope, TIA and lymphoma. His been currently following with Dr. Mortensen in the outpatient setting, she recently increased her Eliquis to 5 mg BID. On 12/10/2019 she had an arterial study of the right upper extremity showing multiphasic signal throughout, discoloration in fingers likely related to vasospastic phenomenon. She also underwent a carotid Doppler study in the outpatient setting, results not available at this time. She states she does have some shortness of breath, denies any chest pain. States she was noticing also that her fingertips are still turning "black", she states they get worse when she is curling her fingers under. She has full range of motion of her right upper extremity. She does state that her fingertips are somewhat painful. Review of Systems A 14 point review of systems completed and all pertinent positives and negatives as stated in the HPI 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, VARICOSE VEINS, GOUT, LYMPHOMA (HX OF CHEMO & RADIATION 1977,1982 & 1993), hx migraines, hx ulcer, constipation, "red spots all over", states difficulty swallowing & having acid reflux., back pain-uses walker., States toenail was "cut back " yesterday 09/19/20, hammer toes. History of Any Multi-Drug Resistant Organisms: None Reported Past Surgical History: Appendectomy, Back Surgery, Breast Surgery, Cholecystectomy, Hysterectomy, Joint Replacement, Orthopedic Surgery, Tonsillectomy Additional Past Surgical History / Comment(s): RIGHT HIP REPAIR, german KNEE REPLACEMENT, rods german thumbs and rt 3rd toe, BREAST & AXILLARY BX, TUMOR IN THROAT REMOVED., CERVICAL FUSION, LUMBAR LAMINECTOMY,DECOMPRESSION-FUSION L1- L2., recent back surgery for nerve and tendons, german cataracts Past Anesthesia/Blood Transfusion Reactions: No Reported Reaction Additional Past Anesthesia/Blood Transfusion Reaction / Comm: CLAUSTROPHOBIA Past Psychological History: Anxiety, Depression Smoking Status: Never smoker Past Alcohol Use History: None Reported Past Drug Use History: None Reported - Past Family History Father Family Medical History: Deep Vein Thrombosis (DVT), Pulmonary Embolus Additional Family Medical History / Comment(s): Father at age 32 from pulmonary embolism. Mother Family Medical History: Cancer Additional Family Medical History / Comment(s): . Brother(s) Family Medical History: Cancer, Deep Vein Thrombosis (DVT) Additional Family Medical History / Comment(s): Patient had 2 brothers that have passed one from myocardial infarction and one from pulmonary embolism. 2 brothers are alive and one has lung cancer, one brother is alive with a brain aneurysm and CVA. Medications and Allergies Home Medications Medication Instructions Recorded Confirmed Type Calcium Carb-Vit D 500Mg-5Mcg 1 tab PO DAILY 01/05/14 12/17/20 History [Oscal 500+D 5 Mcg (200 Iu)] allopurinoL [Zyloprim] 100 mg PO DAILY 01/05/14 12/17/20 History atenoloL [Tenormin] 50 mg PO HS 01/05/14 12/17/20 History Levothyroxine Sodium [Synthroid] 12.5 mcg PO DAILY 03/16/14 12/17/20 History Alpha Lipoic Acid 600 mg PO DAILY 07/03/20 12/17/20 History Gabapentin [Neurontin] 300 mg PO TID 07/03/20 12/17/20 History Ipratropium [place] 0.06%Nasal 2 spr EA NOSTRIL BID 07/03/20 12/17/20 History [Atrovent Nasal 0.06%] Biotin 10 mg PO DAILY 07/15/20 12/17/20 History HYDROcodone/APAP 10-325MG [[place] 1 tab PO BID PRN 07/15/20 12/17/20 History 10-325] Dexlansoprazole [Dexilant] 60 mg PO DAILY 08/07/20 12/17/20 History Empaglifloz/Linaglip/Metformin 1 tab PO DAILY 09/20/20 12/17/20 History [Trijardy Xr 25-5-1,000 mg Tab] Apixaban [Eliquis] 5 mg PO BID 10/06/20 12/17/20 History Polyethylene Glycol 3350 [Miralax] 17 gm PO DAILY PRN 10/06/20 12/17/20 History Temazepam [Restoril] 15 mg PO HS 10/06/20 12/17/20 History methocarbamoL [Robaxin] 500 mg PO TID 12/03/20 12/17/20 History rOPINIRole HCL [Requip] 2 mg PO BID 12/03/20 12/17/20 History Cholecalciferol [Vitamin D3 (25 25 mcg PO DAILY 12/17/20 12/17/20 History Mcg = 1000 Iu)] DULoxetine HCL [Cymbalta] 60 mg PO DAILY 12/17/20 12/17/20 History Estradiol Cream [Estrace Cream 1 gm VAGINAL SUTH 12/17/20 12/17/20 History 0.01%] Nuno-E 1000mg 1,000 mg PO DAILY 12/17/20 12/17/20 History Allergies Allergy/AdvReac Type Severity Reaction Status Date / Time adhesive Allergy red skin, Verified 12/17/20 15:29 blisters cefaclor [From Ceclor] Allergy Rash/Hives Verified 12/17/20 15:29 ciprofloxacin [From Cipro] Allergy Rash/Hives Verified 12/17/20 15:29 ciprofloxacin HCl Allergy Rash/Hives Verified 12/17/20 15:29 [From Cipro] hydromorphone HCl Allergy Anaphylaxis Verified 12/17/20 15:29 [From Dilaudid] Penicillins Allergy Rash/Hives Verified 12/17/20 15:29 clindamycin AdvReac Nausea & Verified 12/17/20 15:29 Vomiting sulfamethoxazole AdvReac Abdominal Verified 12/17/20 15:29 [From Bactrim] Pain trimethoprim [From Bactrim] AdvReac Abdominal Verified 12/17/20 15:29 Pain Surgical - Exam Vital Signs Temp Pulse Resp BP Pulse Ox 98.7 F 102 H 18 99/57 96 12/17/20 13:11 12/17/20 13:11 12/17/20 13:11 12/17/20 13:11 12/17/20 13:11 General appearance: The patient is alert, oriented, appears in no acute distress. HET: Head is normocephalic and atraumatic. Oropharynx is clear without lesions. Neck: Supple without lymphadenopathy. Trachea midline. Heart: S1 S2. Regular rate and rhythm. Lungs: Clear to auscultation. Abdomen: Soft, nontender, nondistended. Extremities: Right upper extremity without any swelling, she has tenderness to her fingertips which are a noted purplish reddish color with good capillary refill. Palpable brachial and radial pulse. Patient has full range of motion of her fingers and upper extremity. Neurological: No focal deficits. Strength and sensation are grossly intact. Results - Labs 12/17/20 13:40 12/17/20 13:40 Abnormal Lab Results - Last 24 Hours (Table) 12/17/20 12/17/20 12/17/20 Range/Units 13:40 13:40 13:40 RDW 18.2 H (11.5-15.5) % Lymphocytes # 0.6 L (1.0-4.8) k/uL Monocytes # 1.1 H (0-1.0) k/uL Monocytes # (Manual) 1.14 H (0-1.0) k/uL Metamyelocytes # (Man) 0.10 H (0) k/uL Myelocytes # (Manual) 0.29 H (0) k/uL APTT 21.3 L (22.0-30.0) sec BUN 20 H (7-17) mg/dL Glucose 257 H (74-99) mg/dL POC Glucose (mg/dL) (75-99) mg/dL Urine Appearance (Clear) Urine Protein (Negative) Urine Glucose (UA) (Negative) Urine Ketones (Negative) Urine Blood (Negative) Urine Nitrite (Negative) Ur Leukocyte Esterase (Negative) Urine RBC (0-5) /hpf Urine WBC (0-5) /hpf 12/17/20 12/17/20 12/18/20 Range/Units 14:00 20:13 07:03 RDW (11.5-15.5) % Lymphocytes # (1.0-4.8) k/uL Monocytes # (0-1.0) k/uL Monocytes # (Manual) (0-1.0) k/uL Metamyelocytes # (Man) (0) k/uL Myelocytes # (Manual) (0) k/uL APTT (22.0-30.0) sec BUN (7-17) mg/dL Glucose (74-99) mg/dL POC Glucose (mg/dL) 221 H 151 H (75-99) mg/dL Urine Appearance Cloudy H (Clear) Urine Protein 1+ H (Negative) Urine Glucose (UA) 4+ H (Negative) Urine Ketones Trace H (Negative) Urine Blood Moderate H (Negative) Urine Nitrite Positive H (Negative) Ur Leukocyte Esterase Large H (Negative) Urine RBC 62 H (0-5) /hpf Urine WBC >182 H (0-5) /hpf Microbiology - Last 24 Hours (Table) 12/17/20 14:00 Urine Culture - Preliminary Urine,Voided Diabetes panel 12/17/20 Range/Units 13:40 Sodium 140 (137-145) mmol/L Potassium 3.8 (3.5-5.1) mmol/L Chloride 104 (98-107) mmol/L Carbon Dioxide 23 (22-30) mmol/L BUN 20 H (7-17) mg/dL Creatinine 0.57 (0.52-1.04) mg/dL Glucose 257 H (74-99) mg/dL Calcium 9.9 (8.4-10.2) mg/dL AST 21 (14-36) U/L ALT 22 (4-34) U/L Alkaline Phosphatase 104 (38-126) U/L Total Protein 6.9 (6.3-8.2) g/dL Albumin 4.5 (3.5-5.0) g/dL Calcium panel 12/17/20 Range/Units 13:40 Calcium 9.9 (8.4-10.2) mg/dL Albumin 4.5 (3.5-5.0) g/dL Pituitary panel 12/17/20 Range/Units 13:40 Sodium 140 (137-145) mmol/L Potassium 3.8 (3.5-5.1) mmol/L Chloride 104 (98-107) mmol/L Carbon Dioxide 23 (22-30) mmol/L BUN 20 H (7-17) mg/dL Creatinine 0.57 (0.52-1.04) mg/dL Glucose 257 H (74-99) mg/dL Calcium 9.9 (8.4-10.2) mg/dL Adrenal panel 12/17/20 Range/Units 13:40 Sodium 140 (137-145) mmol/L Potassium 3.8 (3.5-5.1) mmol/L Chloride 104 (98-107) mmol/L Carbon Dioxide 23 (22-30) mmol/L BUN 20 H (7-17) mg/dL Creatinine 0.57 (0.52-1.04) mg/dL Glucose 257 H (74-99) mg/dL Calcium 9.9 (8.4-10.2) mg/dL Total Bilirubin 0.7 (0.2-1.3) mg/dL AST 21 (14-36) U/L ALT 22 (4-34) U/L Alkaline Phosphatase 104 (38-126) U/L Total Protein 6.9 (6.3-8.2) g/dL Albumin 4.5 (3.5-5.0) g/dL Assessment and Plan Assessment: 1. Right subclavian stenosis 2. Factor V Leiden 3. Urinary tract infection 4 History of deep vein thrombosis 5. History of pulmonary embolism Plan: 1. Continue Eliquis 5mg BID 2. Continue medical management 3. Elevate left upper extremity 4. Continue antibiotics as ordered for UTI 5. Further recommendations to follow Thank you for this consultation, and allowing us take part in the plan of care of your patient during her hospital stay The impression and plan of care has been dictated as directed. Dr. Mortensen I performed a history and examination of this patient, discussed the same with the dictator. I agree with the dictator's note ,documented as a scribe. Any additional findings or plans will be noted.
[2020-12-18] MEDS: EMPAGLIFLOZIN PO SCH (15:20)
[2020-12-18] MEDS: LINAGLIPTIN PO SCH (15:20)
[2020-12-18] MEDS: [UNRECOGNIZED DRUG - OTHER] PO SCH (15:20)
[2020-12-18] MEDS: METFORMIN PO SCH (15:20)
[2020-12-18 15:51] VITALS: BMI 25.4
[2020-12-18] MEDS: HYDROcodone/APAP 10-325MG 1 EACH TAB PO PRN (17:13)
[2020-12-18 17:20] LABS: Glucose,Whole Blood 185 mg/dL (75-99)
[2020-12-18 21:02] LABS: Glucose,Whole Blood 168 mg/dL (75-99)
[2020-12-18] MEDS: atenoloL 50 MG TAB PO SCH (21:25)
[2020-12-18] MEDS: TEMAZEPAM 15 MG CAP PO SCH (21:25)
[2020-12-19] MEDS: LEVOTHYROXINE 25 MCG TAB PO SCH (05:53)
[2020-12-19] MEDS: EMPAGLIFLOZIN PO SCH (07:37)
[2020-12-19] MEDS: METFORMIN PO SCH (07:37)
[2020-12-19] MEDS: LINAGLIPTIN PO SCH (07:37)
[2020-12-19] MEDS: [UNRECOGNIZED DRUG - OTHER] PO SCH (07:37)
[2020-12-19] MEDS: CALCIUM CARB-VIT D 500 MG-5 MCG TAB PO SCH (07:53)
[2020-12-19 07:54] LABS: Glucose,Whole Blood 188 mg/dL (75-99)
[2020-12-19] MEDS: PANTOPRAZOLE 40 MG TABLET PO SCH (07:54)
[2020-12-19] MEDS: APIXABAN 5 MG TAB PO SCH (07:54)
[2020-12-19] MEDS: CHOLECALCIFEROL 25 MCG (1000 IU) TABLET PO SCH (07:54)
[2020-12-19] MEDS: methocarbamoL 500 MG TAB PO SCH (07:54)
[2020-12-19] MEDS: allopurinoL 100 MG TAB PO SCH (07:54)
[2020-12-19] MEDS: GABAPENTIN 300 MG CAP PO SCH (07:55)
[2020-12-19] MEDS: DULoxetine HCL 60 MG CAPSULE.DR PO SCH (07:55)
[2020-12-19] MEDS: IPRATROPIUM BROMIDE 0.06% NASAL SPRAY (15 ML) EA NOSTRIL SCH (07:55)
[2020-12-19] MEDS: HYDROcodone/APAP 10-325MG 1 EACH TAB PO PRN (08:06)
--- NOTE | 2020-12-19 08:14 | P.DS ---
Providers Date of admission: 12/17/20 17:36 Expected date of discharge: 12/19/20 Attending physician: Carlos Enrique Farooq Consults: 12/17/20 17:37 Consult Physician Urgent Consulting Provider: Venessa Mortensen Consult Reason/Comments: Blood clots Do you want consulting provider notified?: Yes Primary care physician: Alvarez Kasbeer [facility] Course: HISTORY OF PRESENT ILLNESS This is a 80-year-old female one of Dr. Rocha patient with past medical history of type 2 diabetes, non-Hodgkin's lymphoma [place] [address] Monaco and follows with Dr. Aranda status post chemotherapy and radiation therapy, TIA 5 years ago, hypertension, hyperlipidemia, hypertension, hypothyroidism, restless leg syndrome, recurrent depression, and osteoarthritis who has been treated for lower back pain post multiple lower back surgery and epidural injection with pain management at [facility], previous admission for acute GI bleed and acute blood loss anemia status post EGD and colonoscopy which revealed antral gastritis, area of ulceration, nonbleeding, in the distal transverse colon, pulmonary embolism and left lower leg DVT diagnosed 03/08/2020 on eliquis. She recently underwent revision T12-L2 fusion and decompression in in March 2020. Patient was seen recently with Dr. Mortensen for change in the color of her fingertip under Eliquis was increased from 2.5-5 mg twice a day as she omits the blood clot issue. Patient symptoms become much worse she was seen at her primary care physician who was concerned about blood clot in the subclavian area with a change consistent with possible acute thrombus see send her to the emergency department at [facility] where was seen and evaluated she was started on mild hydration she is in slight bit discomforted time patient will be hospitalized will be seen vascular and might need to go for angiogram to exclude any arterial thrombus. Beside patient's current complain patient has been complaining of dysuria frequency urgency and recurrent UTI. Also has been complaining of debility has been difficult since her back surgery and for the last few month patient is not doing well mobility galeas, her family are trying to take care of her at home with extra help has been difficult so far. 12/18: Patient is scheduled to see vascular surgery today. She is complaining of pain and dusky nevus to the tip of her fingers. She does have strong brachial, ulnar and radial pulses. Her blood sugars have been running between 151 and 221. She's been afebrile, heart rate 92, blood pressure 106/74 and pulse ox 99% on room air. Patient is on ceftriaxone for urinary tract infection. Discussed discharge planning with the patient and she states that she is now living with her daughter and plans that she'll most likely return home. PT in place. 12/19: Patient has been afebrile, heart rate 94, blood pressure 107/66, pulse ox 96% on room air. Blood sugars are running between 168 and 208. Urine culture is positive for gram-negative bacilli. Patient is currently on Rocephin. Patient has been seen by vascular surgery for right subclavian stenosis and recommend continuing eliquis at 5 mg twice daily, elevate left upper extremity. Patient will be discharged home today in stable condition. ASSESSMENT AND PLAN 1. Right subclavian stenosis without thrombosis. 2. Recurrent UTI without any sign of urosepsis at this point. 3. Severe generalized fatigue and debility. 4. Right lower lobe pulmonary embolism. 5. Diabetes mellitus type 2. 6. Non-Hodgkin's [place] [address] Monaco and follows with Dr. Aranda, in remission. 7. History of TIA with no deficits. 8. 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 9. Hypertension. 10. Hypothyroidism. 11. Seasonal ALLERGIES. 12. Recurrent depression. 13. Chronic gout. 14. Hyperlipidemia. 15. Restless leg syndrome. 16. GERD. 17. COVID-19 testing: Patient was negative DISCHARGE PLAN Home with [facility]. Impression and plan of care have been directed as dictated by the signing physician. Karen Quintero nurse practitioner acting as scribe for signing physician. Patient Condition at Discharge: Good Plan - Discharge Summary Discharge Rx Participant: Yes New Discharge Prescriptions: New Psyllium [place] 100% [Metamucil Packet] 6 gm PO BID packet Cefuroxime Axetil [Ceftin] 500 mg PO BID 4 Days #8 tab Continue allopurinoL [Zyloprim] 100 mg PO DAILY atenoloL [Tenormin] 50 mg PO HS Calcium Carb-Vit D 500Mg-5Mcg [[place] 500+D 5 Mcg (200 Iu)] 1 tab PO DAILY Levothyroxine Sodium [Synthroid] 12.5 mcg PO DAILY Alpha Lipoic Acid 600 mg PO DAILY Gabapentin [Neurontin] 300 mg PO TID Ipratropium [place] 0.06%Nasal [Atrovent Nasal 0.06%] 2 spr EA NOSTRIL BID HYDROcodone/APAP 10-325MG [[place] 10-325] 1 tab PO BID PRN PRN Reason: Pain Biotin 10 mg PO DAILY Dexlansoprazole [Dexilant] 60 mg PO DAILY Empaglifloz/Linaglip/Metformin [Trijardy Xr 25-5-1,000 mg Tab] 1 tab PO DAILY Temazepam [Restoril] 15 mg PO HS Polyethylene Glycol 3350 [Miralax] 17 gm PO DAILY PRN PRN Reason: Constipation Apixaban [Eliquis] 5 mg PO BID rOPINIRole HCL [Requip] 2 mg PO BID DULoxetine HCL [Cymbalta] 60 mg PO DAILY methocarbamoL [Robaxin] 500 mg PO TID Nuno-E 1000mg 1,000 mg PO DAILY Cholecalciferol [Vitamin D3 (25 Mcg = 1000 Iu)] 25 mcg PO DAILY Estradiol Cream [Estrace Cream 0.01%] 1 gm VAGINAL SUTH Discharge Medication List Calcium Carb-Vit D 500Mg-5Mcg [[place] 500+D 5 Mcg (200 Iu)] 1 tab PO DAILY 01/05/14 [History] allopurinoL [Zyloprim] 100 mg PO DAILY 01/05/14 [History] atenoloL [Tenormin] 50 mg PO HS 01/05/14 [History] Levothyroxine Sodium [Synthroid] 12.5 mcg PO DAILY 03/16/14 [History] Alpha Lipoic Acid 600 mg PO DAILY 07/03/20 [History] Gabapentin [Neurontin] 300 mg PO TID 07/03/20 [History] Ipratropium [place] 0.06%Nasal [Atrovent Nasal 0.06%] 2 spr EA NOSTRIL BID 07/03/20 [History] Biotin 10 mg PO DAILY 07/15/20 [History] HYDROcodone/APAP 10-325MG [[place] 10-325] 1 tab PO BID PRN 07/15/20 [History] Dexlansoprazole [Dexilant] 60 mg PO DAILY 08/07/20 [History] Empaglifloz/Linaglip/Metformin [[place]rij[place] Xr 25-5-1,000 mg Tab] 1 tab PO DAILY 09/20/20 [History] Apixaban [Eliquis] 5 mg PO BID 10/06/20 [History] Polyethylene Glycol 3350 [Miralax] 17 gm PO DAILY PRN 10/06/20 [History] Temazepam [Restoril] 15 mg PO HS 10/06/20 [History] methocarbamoL [Robaxin] 500 mg PO TID 12/03/20 [History] rOPINIRole HCL [Requip] 2 mg PO BID 12/03/20 [History] Cholecalciferol [Vitamin D3 (25 Mcg = 1000 Iu)] 25 mcg PO DAILY 12/17/20 [History] DULoxetine HCL [Cymbalta] 60 mg PO DAILY 12/17/20 [History] Estradiol Cream [Estrace Cream 0.01%] 1 gm VAGINAL SUTH 12/17/20 [History] Nuno-E 1000mg 1,000 mg PO DAILY 12/17/20 [History] Cefuroxime Axetil [Ceftin] 500 mg PO BID 4 Days #8 tab 12/19/20 [Rx] Psyllium [place] 100% [Metamucil Packet] 6 gm PO BID packet 12/19/20 [Rx] Follow up Appointment(s)/Referral(s): [facility], [NON-STAFF] - 1-2 Days Venessa Mortensen DO [STAFF PHYSICIAN] - 12/25/20 10:15 am Alvarez Rocha DO [Primary Care Provider] - 12/24/20 11:15 am Discharge Disposition: HOME WITH HOME HEALTH SERVICES
[2020-12-19] MEDS: INSULIN ASPART (NovoLOG) 100 UNIT/ML VIAL SQ SCH ×2 (08:47→13:03)
[2020-12-19] MEDS ORDERED: PSYLLIUM HUSK 100% 6 GM PACKET PO SCH (09:00)
[2020-12-19 11:32] LABS: Glucose,Whole Blood 208 mg/dL (75-99)
[2020-12-19 13:35] VITALS: BP 108/69; PULSE 104; RESP 14; TEMP 97.9
== END 2020-12-19 13:58 | disposition home health service (06) ==
LOC: EC 12:58 → INTOOBSV 17:36 → 5NMEDONC 17:36 → UNDODISIN 12-19 13:58
PROVIDERS: ADMIT Internal Medicine Geriatric Medicine; ATTEND Internal Medicine Geriatric Medicine
DX: I70.8 Atherosclerosis of other arteries (principal); N39.0 Urinary tract infection, site not specified; I26.99 Other pulmonary embolism without acute cor pulmonale; E11.9 Type 2 diabetes mellitus without complications; Z85.72 Personal history of non-Hodgkin lymphomas; Z86.73 Personal history of transient ischemic attack (TIA), and cerebral infarction without residual deficits; M47.9 Spondylosis, unspecified; M48.04 Spinal stenosis, thoracic region; M48.061 Spinal stenosis, lumbar region without neurogenic claudication; G89.29 Other chronic pain; M54.5 Low back pain; I10 Essential (primary) hypertension; E03.9 Hypothyroidism, unspecified; J30.2 Other seasonal allergic rhinitis; F33.9 Major depressive disorder, recurrent, unspecified; M1A.9XX0 Chronic gout, unspecified, without tophus (tophi); E78.5 Hyperlipidemia, unspecified; G25.81 Restless legs syndrome; K21.9 Gastro-esophageal reflux disease without esophagitis; Z20.822 Contact with and (suspected) exposure to COVID-19; M19.90 Unspecified osteoarthritis, unspecified site; G43.909 Migraine, unspecified, not intractable, without status migrainosus; K59.00 Constipation, unspecified; D68.51 Activated protein C resistance; I82.B19 Acute embolism and thrombosis of unspecified subclavian vein; I83.90 Asymptomatic varicose veins of unspecified lower extremity; Z96.653 Presence of artificial knee joint, bilateral; Z86.718 Personal history of other venous thrombosis and embolism; Z86.711 Personal history of pulmonary embolism; Z92.21 Personal history of antineoplastic chemotherapy; Z92.3 Personal history of irradiation; Z87.11 Personal history of peptic ulcer disease; Z87.440 Personal history of urinary (tract) infections; Z79.01 Long term (current) use of anticoagulants; Z79.899 Other long term (current) drug therapy; Z79.890 Hormone replacement therapy; Z88.1 Allergy status to other antibiotic agents; Z88.5 Allergy status to narcotic agent; Z88.0 Allergy status to penicillin; Z88.2 Allergy status to sulfonamides; Z91.048 Other nonmedicinal substance allergy status; Z90.710 Acquired absence of both cervix and uterus; Z90.49 Acquired absence of other specified parts of digestive tract; Z98.1 Arthrodesis status; Z82.49 Family history of ischemic heart disease and other diseases of the circulatory system; Z82.3 Family history of stroke; Z80.1 Family history of malignant neoplasm of trachea, bronchus and lung; Z80.3 Family history of malignant neoplasm of breast; Z81.8 Family history of other mental and behavioral disorders
CPT/HCPCS: 96366 ×2; 96365; 99285; 36415; 93005; 97162; 92610; 80053; 83605; 83735; 84484; 85025; 85610; 85730; 81001; 87086; 87077; 87186; 87635; 71046; G0378 ×3; J0696 ×3

== ENCOUNTER → 2020-12-25 | Outpatient (CLI) | payer MEDICARE ==
[2020-12-25 12:54] LABS: African American GFR (CKD) >90 (>60 ml/min/1.73 sqM); Anion Gap 8 mmol/L; Blood Urea Nitrogen 14 mg/dL (7-17); Carbon Dioxide 29 mmol/L (22-30); Chloride 105 mmol/L (98-107); Non-African American GFR(CKD) 88 (>60 ml/min/1.73 sqM); Sodium 142 mmol/L (137-145)
[2020-12-25 12:56] LABS: Potassium 3.7 mmol/L (3.5-5.1)
[2020-12-25 13:10] LABS: Anisocytosis Slight; Basophils # (A) 0.1 k/uL (0-0.2); Basophils % (A) 1 %; Eosinophils % (A) 0 %; HCT 35.7 % (34.0-46.0); HGB 12.4 gm/dL (11.4-16.0); Hypochromasia Slight; Lymphocytes # (A) 0.5 k/uL (1.0-4.8); Lymphocytes % (A) 5 %; MCH 31.4 pg (25.0-35.0); MCHC 34.6 g/dL (31.0-37.0); MCV 90.6 fL (80.0-100.0); Monocytes # (A) 1.2 k/uL (0-1.0); Monocytes % (A) 13 %; Neutrophils # (A) 7.7 k/uL (1.3-7.7); Neutrophils % (A) 80 %; Platelet Count 173 k/uL (150-450); RBC 3.94 m/uL (3.80-5.40); RDW 18.2 % (11.5-15.5); WBC 9.7 k/uL (3.8-10.6)
== END | disposition home or self-care (01) ==
LOC: LABPAT 11:23
PROVIDERS: ATTEND Surgery
DX: Z01.812 Encounter for preprocedural laboratory examination (principal); G45.8 Other transient cerebral ischemic attacks and related syndromes
CPT/HCPCS: 36415; 80051; 82565; 84520; 85025

== ENCOUNTER 2020-12-27 14:45 | Inpatient (IN) | payer MEDICARE ==
[2020-12-27] MEDS ORDERED: DILTIAZEM DRIP BOLUS FROM BAG 1 MG SOLN IV ONE (15:15)
[2020-12-27] MEDS ORDERED: SODIUM CHLORIDE 0.9% 1,000 ML IV STA (15:15)
--- NOTE | 2020-12-27 15:20 | ED ---
General Adult HPI - General Chief complaint: Arrhythmia/Palpitations Stated complaint: Increased heart rate Time Seen by Provider: 12/27/20 14:57 Source: patient, EMS, RN notes reviewed, old records reviewed Mode of arrival: EMS Limitations: physical limitation - History of Present Illness Initial comments: Patient is a pleasant 80-year-old female presenting to the emergency Department with complaints of tachycardia. Patient did have nursing visit with concerns for increased heart rate. Patient denies palpitations. Patient states she has been fatigued and somewhat short of breath over the past couple of days. Patient admits to having some mild discomfort yesterday evening in her chest, none at this time. No history of previous dysrhythmia. Patient is currently on blood thinners for history of subclavian DVT. Patient is planned to have a ngiography with Dr. Mortensen next week for this. - Related Data Home Medications Medication Instructions Recorded Confirmed Calcium Carb-Vit D 500Mg-5Mcg 1 tab PO DAILY 01/05/14 12/27/20 [Oscal 500+D 5 Mcg (200 Iu)] allopurinoL [Zyloprim] 100 mg PO DAILY 01/05/14 12/27/20 atenoloL [Tenormin] 50 mg PO HS 01/05/14 12/27/20 Levothyroxine Sodium [Synthroid] 12.5 mcg PO DAILY 03/16/14 12/27/20 Alpha Lipoic Acid 600 mg PO DAILY 07/03/20 12/27/20 Gabapentin [Neurontin] 300 mg PO TID 07/03/20 12/27/20 Ipratropium [place] 0.06%Nasal 2 spr EA NOSTRIL BID 07/03/20 12/27/20 [Atrovent Nasal 0.06%] Biotin 10 mg PO DAILY 07/15/20 12/27/20 HYDROcodone/APAP 10-325MG [[place] 1 tab PO BID PRN 07/15/20 12/27/20 10-325] Dexlansoprazole [Dexilant] 60 mg PO DAILY 08/07/20 12/27/20 Empaglifloz/Linaglip/Metformin 1 tab PO DAILY 09/20/20 12/27/20 [Trijardy Xr 25-5-1,000 mg Tab] Apixaban [Eliquis] 5 mg PO BID 10/06/20 12/27/20 Polyethylene Glycol 3350 [Miralax] 17 gm PO DAILY PRN 10/06/20 12/27/20 Temazepam [Restoril] 15 mg PO HS 10/06/20 12/27/20 methocarbamoL [Robaxin] 500 mg PO TID 12/03/20 12/27/20 rOPINIRole HCL [Requip] 2 mg PO BID@0800,1200 12/03/20 12/27/20 Cholecalciferol [Vitamin D3 (25 25 mcg PO DAILY 12/17/20 12/27/20 Mcg = 1000 Iu)] DULoxetine HCL [Cymbalta] 60 mg PO DAILY 12/17/20 12/27/20 Estradiol Cream [Estrace Cream 1 gm VAGINAL SUTH 12/17/20 12/27/20 0.01%] Nuno-E 1000mg 1,000 mg PO DAILY 12/17/20 12/27/20 Atorvastatin [Lipitor] 40 mg PO HS 12/27/20 12/27/20 rOPINIRole HCL [Requip] 4 mg PO HS 12/27/20 12/27/20 Previous Rx's Medication Instructions Recorded Psyllium [place] 100% [Metamucil 6 gm PO BID packet 12/19/20 Packet] Allergies Allergy/AdvReac Type Severity Reaction Status Date / Time adhesive Allergy red skin, Verified 12/27/20 16:46 blisters cefaclor [From Ceclor] Allergy Rash/Hives Verified 12/27/20 16:46 ciprofloxacin [From Cipro] Allergy Rash/Hives Verified 12/27/20 16:46 ciprofloxacin HCl Allergy Rash/Hives Verified 12/27/20 16:46 [From Cipro] hydromorphone HCl Allergy Anaphylaxis Verified 12/27/20 16:46 [From Dilaudid] Penicillins Allergy Rash/Hives Verified 12/27/20 16:46 clindamycin AdvReac Nausea & Verified 12/27/20 16:46 Vomiting sulfamethoxazole AdvReac Abdominal Verified 12/27/20 16:46 [From Bactrim] Pain trimethoprim [From Bactrim] AdvReac Abdominal Verified 12/27/20 16:46 Pain Review of Systems ROS Statement: Those systems with pertinent positive or pertinent negative responses have been documented in the HPI. ROS Other: All systems not noted in ROS Statement are negative. Constitutional: Denies: fever Eyes: Denies: eye pain ENT: Denies: ear pain Respiratory: Reports: as per HPI. 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 History of Any Multi-Drug Resistant Organisms: None Reported Past Surgical History: Appendectomy, Back Surgery, Breast Surgery, Cholecystectomy, Hysterectomy, Joint Replacement, Orthopedic Surgery, Tonsillectomy Additional Past Surgical History / Comment(s): RIGHT HIP REPAIR, german KNEE REPLACEMENT, rods german thumbs and rt 3rd toe, BREAST & AXILLARY BX, TUMOR IN THROAT REMOVED., CERVICAL FUSION, LUMBAR LAMINECTOMY,DECOMPRESSION-FUSION L1- L2., recent back surgery for nerve and tendons, german cataracts Past Anesthesia/Blood Transfusion Reactions: No Reported Reaction Additional Past Anesthesia/Blood Transfusion Reaction / Comment(s): CLAUSTROPHOBIA Past Psychological History: Anxiety, Depression Smoking Status: Never smoker Past Alcohol Use History: None Reported Past Drug Use History: None Reported - Past Family History Father Family Medical History: Deep Vein Thrombosis (DVT), Pulmonary Embolus Additional Family Medical History / Comment(s): Father at age 32 from pulmonary embolism. Mother Family Medical History: Cancer Additional Family Medical History / Comment(s): . Brother(s) Family Medical History: Cancer, Deep Vein Thrombosis (DVT) Additional Family Medical History / Comment(s): Patient had 2 brothers that have passed one from myocardial infarction and one from pulmonary embolism. 2 brothers are alive and one has lung cancer, one brother is alive with a brain aneurysm and CVA. General Exam Limitations: physical limitation General appearance: alert, in no apparent distress Head exam: Present: normocephalic Eye exam: Present: normal appearance Neck exam: Present: normal inspection Respiratory exam: Present: normal lung sounds bilaterally Cardiovascular Exam: Present: tachycardia, irregular rhythm Expanded Peripheral pulses: 2+: Radial (R), Radial (L), Dorsalis Pedis (R), Dorsalis Pedis (L) GI/Abdominal exam: Present: soft. Absent: tenderness Extremities exam: Present: normal inspection Neurological exam: Present: alert Psychiatric exam: Present: normal affect, normal mood Skin exam: Present: normal color Course Vital Signs 12/27/20 12/27/20 12/27/20 14:49 14:55 14:59 Temperature 98.7 F Pulse Rate 140 H 135 H Pulse Rate [ 142 H Left Supine] Respiratory 18 10 L Rate Blood Pressure 132/94 132/94 O2 Sat by Pulse 95 96 Oximetry 12/27/20 12/27/20 12/27/20 15:00 15:05 15:10 Temperature Pulse Rate 138 H 138 H 141 H Pulse Rate [ Left Supine] Respiratory 16 7 L 23 Rate Blood Pressure 132/94 132/94 132/94 O2 Sat by Pulse 92 L 94 L 93 L Oximetry 12/27/20 12/27/20 12/27/20 15:15 15:20 15:25 Temperature Pulse Rate 144 H 140 H 142 H Pulse Rate [ Left Supine] Respiratory 16 Rate Blood Pressure 132/94 132/94 132/94 O2 Sat by Pulse 94 L 93 L 94 L Oximetry 12/27/20 12/27/20 12/27/20 15:30 15:35 15:40 Temperature Pulse Rate 142 H 142 H 137 H Pulse Rate [ Left Supine] Respiratory Rate Blood Pressure 132/94 105/93 O2 Sat by Pulse 95 93 L Oximetry 12/27/20 12/27/20 12/27/20 15:41 15:45 15:50 Temperature 98.8 F Pulse Rate 137 H 134 H 133 H Pulse Rate [ Left Supine] Respiratory 16 17 18 Rate Blood Pressure 98/81 98/81 97/63 O2 Sat by Pulse 93 L 94 L 94 L Oximetry 12/27/20 12/27/20 12/27/20 15:55 16:00 16:05 Temperature Pulse Rate 129 H 130 H 131 H Pulse Rate [ Left Supine] Respiratory 14 16 14 Rate Blood Pressure 98/86 102/84 104/81 O2 Sat by Pulse 95 94 L 95 Oximetry 12/27/20 12/27/20 12/27/20 16:10 16:15 16:20 Temperature Pulse Rate 128 H 130 H 129 H Pulse Rate [ Left Supine] Respiratory 16 24 18 Rate Blood Pressure 108/87 106/78 102/91 O2 Sat by Pulse 94 L 94 L 95 Oximetry 12/27/20 12/27/20 12/27/20 16:25 16:30 16:38 Temperature 98.4 F Pulse Rate 128 H 128 H 131 H Pulse Rate [ Left Supine] Respiratory 15 11 L 18 Rate Blood Pressure 98/86 108/85 112/80 O2 Sat by Pulse 94 L 93 L Oximetry - Reevaluation(s) Reevaluation #1: 12/27/20 16:25 Repeat EKG shows sinus tachycardia with rate of 128. AL 134. QRS 108. QT 334. QTC 47. Normal axis. Right bundle branch block. Q wave in lead III. No acute ST change. EKG Findings - EKG Comments: EKG Findings:: Neuro complex tachycardia with a rate of 141. AL 1:30. QRS 104. QT 352. QTC 539. Normal axis. Q wave in lead 3. No acute ST change. Procedures - Procedures Initial comment: Cardioversion: Informed consent given. Patient placed on cardiac nurse specialist and was provided 6 mg of adenosine. This did slow heart rate down transiently without signs of underlying atrial fibrillation. Medical Decision Making - Medical Decision Making Patient reevaluated and updated. Case was discussed with Dr. Farooq who will admit covering for Dr. Rocha. Case also discussed with Dr. Schmid, who will consult. He did recommend trying an adenosine as needed. He did agree with Macho grissom. - Lab Data Result diagrams: 12/27/20 15:26 12/27/20 15:26 Lab Results 12/27/20 12/27/20 12/27/20 Range/Units 15:26 15:26 15:26 WBC 7.9 (3.8-10.6) k/uL RBC 4.23 (3.80-5.40) m/uL Hgb 12.3 (11.4-16.0) gm/dL Hct 37.2 (34.0-46.0) % MCV 88.1 (80.0-100.0) fL MCH 29.2 (25.0-35.0) pg MCHC 33.2 (31.0-37.0) g/dL RDW 18.0 H (11.5-15.5) % Plt Count 162 (150-450) k/uL MPV 7.3 Neutrophils % 77 % Lymphocytes % 6 % Monocytes % 14 % Eosinophils % 1 % Basophils % 2 % Neutrophils # 6.1 (1.3-7.7) k/uL Lymphocytes # 0.4 L (1.0-4.8) k/uL Monocytes # 1.1 H (0-1.0) k/uL Eosinophils # 0.1 (0-0.7) k/uL Basophils # 0.1 (0-0.2) k/uL Anisocytosis Slight PT 10.1 (9.0-12.0) sec INR 0.9 (<1.2) APTT 21.2 L (22.0-30.0) sec Sodium 141 (137-145) mmol/L Potassium 3.6 (3.5-5.1) mmol/L Chloride 105 (98-107) mmol/L Carbon Dioxide 25 (22-30) mmol/L Anion Gap 11 mmol/L BUN 15 (7-17) mg/dL Creatinine 0.55 (0.52-1.04) mg/dL Est GFR (CKD-EPI)AfAm >90 (>60 ml/min/1.73 sqM) Est GFR (CKD-EPI)NonAf >90 (>60 ml/min/1.73 sqM) Glucose 206 H (74-99) mg/dL Calcium 10.5 H (8.4-10.2) mg/dL Magnesium 2.0 (1.6-2.3) mg/dL Total Bilirubin 0.5 (0.2-1.3) mg/dL AST 24 (14-36) U/L ALT 21 (4-34) U/L Alkaline Phosphatase 93 (38-126) U/L Troponin I (0.000-0.034) ng/mL NT-Pro-B Natriuret Pep pg/mL Total Protein 6.7 (6.3-8.2) g/dL Albumin 4.5 (3.5-5.0) g/dL TSH 0.686 (0.465-4.680) mIU/L 12/27/20 12/27/20 Range/Units 15:26 15:26 WBC (3.8-10.6) k/uL RBC (3.80-5.40) m/uL Hgb (11.4-16.0) gm/dL Hct (34.0-46.0) % MCV (80.0-100.0) fL MCH (25.0-35.0) pg MCHC (31.0-37.0) g/dL RDW (11.5-15.5) % Plt Count (150-450) k/uL MPV Neutrophils % % Lymphocytes % % Monocytes % % Eosinophils % % Basophils % % Neutrophils # (1.3-7.7) k/uL Lymphocytes # (1.0-4.8) k/uL Monocytes # (0-1.0) k/uL Eosinophils # (0-0.7) k/uL Basophils # (0-0.2) k/uL Anisocytosis PT (9.0-12.0) sec INR (<1.2) APTT (22.0-30.0) sec Sodium (137-145) mmol/L Potassium (3.5-5.1) mmol/L Chloride (98-107) mmol/L Carbon Dioxide (22-30) mmol/L Anion Gap mmol/L BUN (7-17) mg/dL Creatinine (0.52-1.04) mg/dL Est GFR (CKD-EPI)AfAm (>60 ml/min/1.73 sqM) Est GFR (CKD-EPI)NonAf (>60 ml/min/1.73 sqM) Glucose (74-99) mg/dL Calcium (8.4-10.2) mg/dL Magnesium (1.6-2.3) mg/dL Total Bilirubin (0.2-1.3) mg/dL AST (14-36) U/L ALT (4-34) U/L Alkaline Phosphatase (38-126) U/L Troponin I <0.012 (0.000-0.034) ng/mL NT-Pro-B Natriuret Pep 209 pg/mL Total Protein (6.3-8.2) g/dL Albumin (3.5-5.0) g/dL TSH (0.465-4.680) mIU/L Disposition Clinical Impression: Tachycardia Disposition: ADMITTED IP TO THIS HOSP Is patient prescribed a controlled substance at d/c from ED?: No Referrals: Alvarez Rocha DO [Primary Care Provider] - 1-2 days Decision Time: 18:25
--- NOTE | 2020-12-27 15:32 | XR ---
EXAMINATION TYPE: XR chest 1V portable DATE OF EXAM: 12/27/2020 COMPARISON: Chest x-ray 12/12/2020 HISTORY: Dysrhythmia and shortness of breath. TECHNIQUE: Single AP portable frontal upright view of the chest is obtained. FINDINGS: Persistent chronic parenchymal changes and low lung volumes. There is no new suspicious foc al air space opacity, pleural effusion, or pneumothorax seen. The cardiac silhouette size is within normal limits with atherosclerotic change in the aortic knob. Postsurgical change to the lumbar spine is partially imaged. [place] osseous structures are demineralized. IMPRESSION: Chronic changes without acute pulmonary process.
[2020-12-27 15:47] LABS: Anisocytosis Slight; Basophils # (A) 0.1 k/uL (0-0.2); Basophils % (A) 2 %; Eosinophils # (A) 0.1 k/uL (0-0.7); Eosinophils % (A) 1 %; HCT 37.2 % (34.0-46.0); HGB 12.3 gm/dL (11.4-16.0); Lymphocytes # (A) 0.4 k/uL (1.0-4.8); Lymphocytes % (A) 6 %; MCH 29.2 pg (25.0-35.0); MCHC 33.2 g/dL (31.0-37.0); MCV 88.1 fL (80.0-100.0); Mean Platelet Volume 7.3; Monocytes # (A) 1.1 k/uL (0-1.0); Monocytes % (A) 14 %; Neutrophils # (A) 6.1 k/uL (1.3-7.7); Neutrophils % (A) 77 %; Platelet Count 162 k/uL (150-450); RBC 4.23 m/uL (3.80-5.40); WBC 7.9 k/uL (3.8-10.6)
[2020-12-27 15:49] LABS: ALT 21 U/L (4-34); AST 24 U/L (14-36); African American GFR (CKD) >90 (>60 ml/min/1.73 sqM); Albumin 4.5 g/dL (3.5-5.0); Alkaline Phosphatase 93 U/L (38-126); Anion Gap 11 mmol/L; Blood Urea Nitrogen 15 mg/dL (7-17); Calcium 10.5 mg/dL (8.4-10.2); Carbon Dioxide 25 mmol/L (22-30); Chloride 105 mmol/L (98-107); Glucose 206 mg/dL (74-99); Non-African American GFR(CKD) >90 (>60 ml/min/1.73 sqM); Potassium 3.6 mmol/L (3.5-5.1); Sodium 141 mmol/L (137-145); Total Bilirubin 0.5 mg/dL (0.2-1.3); Total Protein 6.7 g/dL (6.3-8.2)
[2020-12-27 15:54] LABS: INR 0.9 (<1.2); Partial Thromboplastin Time 21.2 sec (22.0-30.0); Prothrombin Time 10.1 sec (9.0-12.0)
[2020-12-27] MEDS ORDERED: DILTIAZEM 125 MG in SODIUM CHLORIDE 0.9% 100 ML IV SCH (16:00)
[2020-12-27] MEDS ORDERED: ADENOSINE 3 MG/ML 2 ML VIAL IVP STA (18:00)
[2020-12-27] MEDS ORDERED: NALOXONE 0.4 MG/ML 1 ML VIAL IV PRN (18:25)
[2020-12-27] MEDS ORDERED: polyethylene glycoL 3350 17 GM POWD.PACK PO PRN (22:08)
[2020-12-27] MEDS: HYDROcodone/APAP 10-325MG 1 EACH TAB PO PRN (23:13)
[2020-12-28] MEDS: SODIUM CHLORIDE 0.9% 1,000 ML IV SCH ×2 (00:42→22:02)
[2020-12-28] MEDS: LEVOTHYROXINE 25 MCG TAB PO SCH (06:06)
[2020-12-28] MEDS: PANTOPRAZOLE 40 MG TABLET PO SCH (06:06)
[2020-12-28 06:15] LABS: Glucose,Whole Blood 166 mg/dL (75-99)
[2020-12-28] MEDS: allopurinoL 100 MG TAB PO SCH (08:25)
[2020-12-28] MEDS: GABAPENTIN 300 MG CAP PO SCH ×3 (08:25→21:06)
[2020-12-28] MEDS: CALCIUM CARB-VIT D 500 MG-5 MCG TAB PO SCH (08:25)
[2020-12-28] MEDS: CHOLECALCIFEROL 25 MCG (1000 IU) TABLET PO SCH (08:25)
[2020-12-28] MEDS: DULoxetine HCL 60 MG CAPSULE.DR PO SCH (08:25)
[2020-12-28] MEDS: APIXABAN 5 MG TAB PO SCH ×2 (08:25→19:45)
[2020-12-28] MEDS: methocarbamoL 500 MG TAB PO SCH ×3 (08:35→21:30)
[2020-12-28] MEDS ORDERED: NON FORMULARY DRUG (Alpha Lipoic Acid [Alpha Lipoic Acid] 600 MG Tablet) PO SCH (09:00)
[2020-12-28] MEDS ORDERED: NON FORMULARY DRUG (Biotin [Biotin] 5 MG Capsule) PO SCH (09:00)
[2020-12-28] MEDS ORDERED: PSYLLIUM HUSK 100% 6 GM PACKET PO SCH (09:00)
[2020-12-28] MEDS ORDERED: S ADENOSYLMETHIONINE PO SCH (09:00)
[2020-12-28 09:54] LABS: Anisocytosis Slight; Basophils # (A) 0.1 k/uL (0-0.2); Basophils % (A) 1 %; Eosinophils % (A) 1 %; HCT 34.5 % (34.0-46.0); HGB 11.7 gm/dL (11.4-16.0); Lymphocytes # (A) 0.5 k/uL (1.0-4.8); Lymphocytes % (A) 7 %; MCH 30.2 pg (25.0-35.0); MCHC 33.8 g/dL (31.0-37.0); MCV 89.3 fL (80.0-100.0); Mean Platelet Volume 7.2; Monocytes # (A) 0.7 k/uL (0-1.0); Monocytes % (A) 11 %; Neutrophils # (A) 5.1 k/uL (1.3-7.7); Neutrophils % (A) 79 %; Platelet Count 151 k/uL (150-450); RBC 3.87 m/uL (3.80-5.40); WBC 6.4 k/uL (3.8-10.6)
[2020-12-28] MEDS ORDERED: LOPERAMIDE 2 MG CAP PO PRN (10:02)
[2020-12-28] MEDS ORDERED: LOPERAMIDE 2 MG CAP PO STA (10:02)
[2020-12-28 10:14] LABS: ALT 19 U/L (4-34); AST 25 U/L (14-36); African American GFR (CKD) >90 (>60 ml/min/1.73 sqM); Albumin 3.7 g/dL (3.5-5.0); Alkaline Phosphatase 79 U/L (38-126); Anion Gap 8 mmol/L; Blood Urea Nitrogen 14 mg/dL (7-17); Carbon Dioxide 22 mmol/L (22-30); Chloride 107 mmol/L (98-107); Glucose 271 mg/dL (74-99); Non-African American GFR(CKD) >90 (>60 ml/min/1.73 sqM); Potassium 3.7 mmol/L (3.5-5.1); Sodium 137 mmol/L (137-145); Total Bilirubin 0.5 mg/dL (0.2-1.3); Total Protein 5.7 g/dL (6.3-8.2)
--- NOTE | 2020-12-28 10:50 | P.HPIM ---
History of Present Illness H&P Date: 12/28/20 HISTORY OF PRESENT ILLNESS This is a 80-year-old female one of Dr. Rocha patient with past medical history of Factor V Leiden deficiency, type 2 diabetes, non-Hodgkin's lymphoma diagnosed [place] [address] Monaco and follows with Dr. Aranda status post chemotherapy and radiation therapy, TIA 5 years ago, hypertension, hyperlipidemia, hypertension, hypothyroidism, restless leg syndrome, recurrent depression, and osteoarthritis who has been treated for lower back pain post multiple lower back surgery and epidural injection with pain management at [facility], previous admission for acute GI bleed and acute blood loss anemia status post EGD and colonoscopy which revealed antral gastritis, area of ulceration, nonbleeding, in the distal transverse colon, pulmonary embolism and left lower leg DVT diagnosed 03[facility]08/[facility]. She recently underwent revision T12-L2 fusion and decompression in in March 2020. Patient had a recent hospitalization at which time she was treated for right subclavian stenosis presenting with blue fingers on the right hand and seen by Dr. Mortensen with plan for outpatient angiogram which has been scheduled for January 01. Patient states she developed palpitations and shortness of breath. She came into [facility] emergency center and initially found to have a heart rate of 160. EKG was done which showed a sinus tachycardia in the 140s with repeat in the 120s. She had no signs of atrial fibrillation. Patient states that she was having heartburn this started around 2 AM yesterday. At 11 in the morning physical therapy from [facility] evaluated her vital signs prior to starting therapy and found her heart rate to be elevated. Patient was not nauseated that time but did develop nausea later. She states she had sweats all day. She also complains of diarrhea for the past 3 days usually about 4-5 times per day but already has had 3 episodes this morning. Stools are watery and she has a bowel movement with each time she urinates. She also complains of cold feet and purple discoloration of her feet and also splitting of the skin on her right index finger tip and right little finger tip near the nail bed. Patient has been afebrile, heart rate is currently 111, blood pressure 114/60 and pulse ox 97% on room air. CBC was unremarkable. Electrolytes normal, creatinine 0.55, blood sugar 206. Calcium 10.5, liver function tests were normal. Troponin negative on 3 draws. ProBNP 209. TSH 0.686. Coronavirus not detected. Chest x-ray reveals chronic changes without acute pulmonary process. Patient admitted to the cardiac stepdown unit and consult in place with cardiology. Patient has been seen by Dr. Pak and echocardiogram ordered. REVIEW OF SYSTEMS Constitutional: No fever, no chills, no night sweats. No weight change. Reports weakness, reports fatigue denies lethargy. No daytime sleepiness. EENT: No headache. No blurred vision or double vision, no loss of vision. No loss of Hearing, no ringing in the ears, Reports dizziness. No nasal drainage or congestion. No epistaxis. No sore throat. Lungs: Denies shortness of breath, cough, no sputum production. No wheezing. Cardiovascular: No chest pain, no left lower extremity edema. Reports palpitations. No paroxysmal nocturnal dyspnea. No orthopnea. No lightheadedness or dizziness. No syncopal episodes. Abdominal: No abdominal pain. No nausea, vomiting. Reports diarrhea. No constipation. No bloody or tarry stools.. No loss of appetite. Genitourinary: No dysuria, increased frequency, urgency. No urinary retention. Reports incontinence, loss of bladder control Musculoskeletal: No myalgias. Reports muscle weakness, reports gait dysfunction, reports 2 falls. Reports back pain. No neck pain. Integumentary: Reports wounds right index finger and right little finger, no lesions. No rash or pruritus. No unusual bruising. Slight purple color of the fingertips on the right hand. Neurologic: No aphasia. No facial droop. No change in mentation. No head injury. No headache. No paralysis. No paresthesia. Psychiatric: No depression. No anxiety. No mood swings. Endocrine: Noted elevated abnormal blood sugars. SOCIAL HISTORY Patient is a lifelong nonsmoker. No alcohol use, marijuana use, illicit drug use. 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 Patient lives alone with her daughter. She ambulates with a walker. She has been at [facility] for subacute rehab in the past. FAMILY HISTORY Mother in her late 80s from breast cancer and dementia. Father at age 32 from pulmonary embolism and DVT. Patient has 2 brothers and a past, one from myocardial infarction and one from pulmonary embolism. 2 brothers are alive and one has lung cancer and one living brother has a brain aneurysm and CVA. Patient has 5 biological children with no major medical problems. PHYSICAL EXAMINATION Gen: This is A 80-year-old female. Patient is resting in bed appears to be comfortable and in no acute distress. No respiratory distress is noted. HEENT: Head is atraumatic, normocephalic. Pupils equal, round. Sclerae is anicteric. NECK: Supple. No JVD. No lymphadenopathy. No thyromegaly. LUNGS: Clear to auscultation. No wheezes or rhonchi. No intercostal retracti ons. HEART: Regular rate and rhythm. No murmur. ABDOMEN: Soft. Bowel sounds are present. No masses. Mild right lower quadrant tenderness. BACK: Surgical wound is healed. No drainage, erythema. No deformity noted. EXTREMITIES: No pedal edema. No calf tenderness. Dorsalis pedis palpable bilaterally. Left foot drop, slight discoloration of the color of her fingertips on the right, small cracks in the fingertips on the right index finger and right middle finger. Hands and feet cool to touch NEUROLOGICAL: Patient is awake, alert and oriented x3. Cranial nerves 2 through 12 are grossly intact. ASSESSMENT AND PLAN 1. Sinus tachycardia of unclear etiology, most likely secondary to diarrhea. Cardiology consult appreciated. Echocardiogram has been ordered. Continue atenolol 50 mg twice daily, frequency was increased by Dr. Pak. 2. Diarrhea of unclear etiology. Patient will be started on Questran twice daily and Imodium as needed. 3. Right subclavian stenosis. Patient is scheduled for angiogram with Dr. Mortensen on January 01. 4. Right lower lobe pulmonary embolism. Eliquis 5 mg twice daily on hold. 5. Factor V Leiden deficiency. 6. Diabetes mellitus type 2. Patient will be on NovoLog scale before meals and at bedtime. Patient is on Trijardy XR 25-5-100 mg 1 daily at home 7. Non-Hodgkin's lymphoma [place] [address] Monaco and follows with Dr. Aranda, in remission. 8. History of TIA with no deficits. 9. 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 Continue gabapentin 300 mg twice daily and 600 at bedtime. 10. Hypertension. Continue atenolol 50 mg twice daily. 10. Hypothyroidism. Continue levothyroxine 12.5 g daily. 11. Seasonal ALLERGIES. Continue Singulair 10 mg at bedtime. 12. Recurrent depression. Continue Prozac 30 mg daily. 13. Chronic gout. Continue allopurinol 100 mg daily. 14. Hyperlipidemia. Patient is not currently on statin. 15. Restless leg syndrome. Continue Requip. 16. GERD and GI prophylaxis. Protonix COVID-19 testing: Patient was negative Patient admitted to the hospital in pandemic time for a minimum of 2 night stay. DISCHARGE PLAN [ ]. Impression and plan of care have been directed as dictated by the signing physician. Karen Quintero nurse practitioner acting as scribe for signing physician. 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, [place] RICOSE VEINS, GOUT, LYMPHOMA (HX OF CHEMO & RADIATION 1977,1982 & 1993), hx migraines, hx ulcer, constipation, "red spots all over", states difficulty swallowing & having acid reflux., back pain-uses walker., States toenail was "cut back " yesterday 09/19/20, hammer toes. History of Any Multi-Drug Resistant Organisms: None Reported Past Surgical History: Appendectomy, Back Surgery, Breast Surgery, Cholecystectomy, Hysterectomy, Joint Replacement, Orthopedic Surgery, Tonsillectomy Additional Past Surgical History / Comment(s): RIGHT HIP REPAIR, german KNEE REPLACEMENT, rods german thumbs and rt 3rd toe, BREAST & AXILLARY BX, TUMOR IN THROAT REMOVED., CERVICAL FUSION, LUMBAR LAMINECTOMY,DECOMPRESSION-FUSION L1- L2., recent back surgery for nerve and tendons, german cataracts Past Anesthesia/Blood Transfusion Reactions: No Reported Reaction Additional Past Anesthesia/Blood Transfusion Reaction / Comment(s): CLAUSTROPHOBIA Past Psychological History: Anxiety, Depression Additional Psychological History / Comment(s): (end of 2019) Smoking Status: Never smoker Past Alcohol Use History: None Reported Additional Past Alcohol Use History / Comment(s): . Past Drug Use History: None Reported - Past Family History Father Family Medical History: Deep Vein Thrombosis (DVT), Pulmonary Embolus Additional Family Medical History / Comment(s): Father at age 32 from pulmonary embolism. Mother Family Medical History: Cancer Additional Family Medical History / Comment(s): . Brother(s) Family Medical History: Cancer, Deep Vein Thrombosis (DVT) Additional Family Medical History / Comment(s): Patient had 2 brothers that have passed one from myocardial infarction and one from pulmonary embolism. 2 brothers are alive and one has lung cancer, one brother is alive with a brain aneurysm and CVA. Medications and Allergies Home Medications Medication Instructions Recorded Confirmed Type Calcium Carb-Vit D 500Mg-5Mcg 1 tab PO DAILY 01/05/14 12/27/20 History [Oscal 500+D 5 Mcg (200 Iu)] allopurinoL [Zyloprim] 100 mg PO DAILY 01/05/14 12/27/20 History atenoloL [Tenormin] 50 mg PO HS 01/05/14 12/27/20 History Levothyroxine Sodium [Synthroid] 12.5 mcg PO DAILY 03/16/14 12/27/20 History Alpha Lipoic Acid 600 mg PO DAILY 07/03/20 12/27/20 History Gabapentin [Neurontin] 300 mg PO TID 07/03/20 12/27/20 History Ipratropium [place] 0.06%Nasal 2 spr EA NOSTRIL BID 07/03/20 12/27/20 History [Atrovent Nasal 0.06%] Biotin 10 mg PO DAILY 07/15/20 12/27/20 History HYDROcodone/APAP 10-325MG [[place] 1 tab PO BID PRN 07/15/20 12/27/20 History 10-325] Dexlansoprazole [Dexilant] 60 mg PO DAILY 08/07/20 12/27/20 History Empaglifloz/Linaglip/Metformin 1 tab PO DAILY 09/20/20 12/27/20 History [Trijardy Xr 25-5-1,000 mg Tab] Apixaban [Eliquis] 5 mg PO BID 10/06/20 12/27/20 History Polyethylene Glycol 3350 [Miralax] 17 gm PO DAILY PRN 10/06/20 12/27/20 History Temazepam [Restoril] 15 mg PO HS 10/06/20 12/27/20 History methocarbamoL [Robaxin] 500 mg PO TID 12/03/20 12/27/20 History rOPINIRole HCL [Requip] 2 mg PO BID@0800,1200 12/03/20 12/27/20 History Cholecalciferol [Vitamin D3 (25 25 mcg PO DAILY 12/17/20 12/27/20 History Mcg = 1000 Iu)] DULoxetine HCL [Cymbalta] 60 mg PO DAILY 12/17/20 12/27/20 History Estradiol Cream [Estrace Cream 1 gm VAGINAL SUTH 12/17/20 12/27/20 History 0.01%] Nuno-E 1000mg 1,000 mg PO DAILY 12/17/20 12/27/20 History Psyllium [place] 100% [Metamucil 6 gm PO BID packet 12/19/20 12/27/20 Rx Packet] Atorvastatin [Lipitor] 40 mg PO HS 12/27/20 12/27/20 History rOPINIRole HCL [Requip] 4 mg PO HS 12/27/20 12/27/20 History Allergies Allergy/AdvReac Type Severity Reaction Status Date / Time adhesive Allergy red skin, Verified 12/27/20 16:46 blisters cefaclor [From Ceclor] Allergy Rash/Hives Verified 12/27/20 16:46 ciprofloxacin [From Cipro] Allergy Rash/Hives Verified 12/27/20 16:46 ciprofloxacin HCl Allergy Rash/Hives Verified 12/27/20 16:46 [From Cipro] hydromorphone HCl Allergy Anaphylaxis Verified 12/27/20 16:46 [From Dilaudid] Penicillins Allergy Rash/Hives Verified 12/27/20 16:46 clindamycin AdvReac Nausea & Verified 12/27/20 16:46 Vomiting sulfamethoxazole AdvReac Abdominal Verified 12/27/20 16:46 [From Bactrim] Pain trimethoprim [From Bactrim] AdvReac Abdominal Verified 12/27/20 16:46 Pain Physical Exam Vitals: Vital Signs Temp Pulse Pulse Resp BP BP Pulse Ox 12/28/20 08:36 98.2 F 111 H 16 114/60 97 12/28/20 04:00 92 18 90/63 100 12/28/20 00:00 117 H 18 100/71 97 12/27/20 20:30 97.7 F 115 H 18 107/75 96 12/27/20 19:32 123 H 18 123/79 94 L 12/27/20 16:38 98.4 F 131 H 18 112/80 12/27/20 16:30 128 H 11 L 108/85 93 L 12/27/20 16:25 128 H 15 98/86 94 L 12/27/20 16:20 129 H 18 102/91 95 12/27/20 16:15 130 H 24 106/78 94 L 12/27/20 16:10 128 H 16 108/87 94 L 12/27/20 16:05 131 H 14 104/81 95 12/27/20 16:00 130 H 16 102/84 94 L 12/27/20 15:55 129 H 14 98/86 95 12/27/20 15:50 133 H 18 97/63 94 L 12/27/20 15:45 134 H 17 98/81 94 L 12/27/20 15:41 98.8 F 137 H 16 98/81 93 L 12/27/20 15:40 137 H 105/93 93 L 12/27/20 15:35 142 H 12/27/20 15:30 142 H 132/94 95 12/27/20 15:25 142 H 132/94 94 L 12/27/20 15:20 140 H 132/94 93 L 12/27/20 15:15 144 H 16 132/94 94 L 12/27/20 15:10 141 H 23 132/94 93 L 12/27/20 15:05 138 H 7 L 132/94 94 L 12/27/20 15:00 138 H 16 132/94 92 L 12/27/20 14:59 142 H 12/27/20 14:55 135 H 10 L 132/94 96 12/27/20 14:49 98.7 F 140 H 18 132/94 95 Intake and Output 12/27/20 12/28/20 12/28/20 22:59 06:59 14:59 Intake Total 960 480 Balance 960 480 Intake: Intake, IV Titration 480 Amount Sodium Chloride 0.9% 1, 480 000 ml @ 75 mls/hr IV . [id number] STA Rx#:[id number] Oral 480 480 Other: Voiding Method Toilet Toilet Toilet # Voids 2 # Bowel Movements 1 Weight 65.317 kg 64.7 kg Results CBC & Chem 7: 12/28/20 08:54 12/28/20 08:54 Labs: Abnormal Lab Results - Last 24 Hours (Table) 12/27/20 12/27/20 12/27/20 Range/Units 15:26 15:26 15:26 RDW 18.0 H (11.5-15.5) % Lymphocytes # 0.4 L (1.0-4.8) k/uL Monocytes # 1.1 H (0-1.0) k/uL APTT 21.2 L (22.0-30.0) sec Glucose 206 H (74-99) mg/dL POC Glucose (mg/dL) (75-99) mg/dL Calcium 10.5 H (8.4-10.2) mg/dL 12/28/20 Range/Units 06:03 RDW (11.5-15.5) % Lymphocytes # (1.0-4.8) k/uL Monocytes # (0-1.0) k/uL APTT (22.0-30.0) sec Glucose (74-99) mg/dL POC Glucose (mg/dL) 166 H (75-99) mg/dL Calcium (8.4-10.2) mg/dL
[2020-12-28] MEDS: atenoloL 50 MG TAB PO SCH ×2 (11:36→19:45)
[2020-12-28 11:54] LABS: Glucose,Whole Blood 199 mg/dL (75-99)
[2020-12-28] MEDS: INSULIN ASPART (NovoLOG) 100 UNIT/ML VIAL SQ SCH ×3 (12:12→21:07)
--- NOTE | 2020-12-28 12:54 | CONS ---
CONSULTATION HISTORY: Mrs. Youngblood is a 80-year-old female with a history of prior DVT and PE, recently admitted to the hospital with discoloration in the right hand. She has been followed by Dr. Mortensen. She has a history of Factor 5 Leiden deficiency, history of non-Hodgkin lymphoma followed by Dr. Patel, history of hypertension, hyperlipidemia, history of osteoarthritis, who presented to the emergency room with tachycardia. The visiting nurse saw her and noted that she was tachycardic. In view of that, she was referred to the emergency room and subsequently admitted. She has been complaining of dyspnea on exertion, although had some of those symptoms in the past, but was worse yesterday. She has some heartburn at night. There is no clear exertional pattern to it. She denies any prior history of cardiac disease. She has no history of congestive heart failure or myocardial infarction according to her. She underwent an echocardiogram in February of 2020 and at that time, her left ventricular systolic function was reported to be normal with mild aortic stenosis and mild mitral regurgitation with no evidence of pulmonary hypertension. The patient denies any recent peripheral edema. She has no PND, no orthopnea. No dizziness or syncope. She does not feel the tachycardia. Her coronary risk factors are remarkable for history of hypertension, diabetes mellitus, hyperlipidemia. She is nonsmoker. MEDICATIONS: Her medication home include Eliquis 5 mg twice a day, Lipitor 40 mg daily, , Synthroid, Tenormin 50 mg daily, Robaxin. REVIEW OF SYSTEMS: RESPIRATORY SYSTEM: She has dyspnea on exertion. No recent wheezing or cough. GI SYSTEM: No recent GI bleeding. No peptic ulcer disease. She is stable at this time. SYSTEM: She has hematuria and has been followed by Dr. Hernandez, it has been stable. NERVOUS SYSTEM: She has prior history of stroke. No seizure. PHYSICAL EXAMINATION: She is a 80-year-old female, alert, oriented, no apparent distress. Heart rate 100. Afebrile. HEAD: Normocephalic eyes sclerae. Anicteric. NECK: Good upstroke no bruit. LUNGS: Clear to auscultation. HEART: Tachycardic S1, S2. No S3 with systolic murmur at the base ejection type no diastolic murmur no rub. ABDOMEN: Soft, nontender. Positive bowel sounds no organomegaly. EXTREMITIES: No edema. LAB DATA: Lab data revealed troponin less than 0.012 for 3 samples. NT proBNP of 209. TSH of 0.686. BUN and creatinine 15 and 0.55. Potassium 5.5, hemoglobin of 12.3. EKG revealed a sinus tachycardia, rate in the 120s, with right bundle branch block that was noted in the past. IMPRESSION: 1. Sinus tachycardia of unclear etiology. No clear evidence of congestive heart failure by physical examination or by testing. 2. Dyspnea on exertion with no evidence to suggest acute coronary syndrome or congestive heart failure. 3. Aortic valve murmur. 4. History of deep vein thrombosis and PE in the past, anticoagulated. 5. History of non-Hodgkin lymphoma. 6. Diabetes mellitus. 7. Hyper lipidemia. RECOMMENDATIONS: From the cardiac standpoint, I will stop the IV Cardizem. I will obtain echocardiogram with Doppler. I will increase the dose of her beta yaya. Depending on her progress, further recommendation will be made. Thank you for this consult. We will follow with you. MMODL / IJN: [id number] /
[2020-12-28 13:15] VITALS: BMI 26.1
[2020-12-28] MEDS: IPRATROPIUM BROMIDE 0.06% NASAL SPRAY (15 ML) EA NOSTRIL SCH ×2 (16:02→22:03)
--- NOTE | 2020-12-28 16:25 | ECHOF ---
Referral Reason:dyspnea MEASUREMENTS -------- HEIGHT: 157.5 cm WEIGHT: 64.4 kg BP: 114/60 RVIDd: 2.7 cm (< 3.3) IVSd: 1.4 cm (0.6 - 1.1) LVIDd: 3.2 cm (3.9 - 5.3) LVPWd: 1.4 cm (0.6 - 1.1) IVSs: 1.7 cm LVIDs: 2.4 cm LVPWs: 1.7 cm LA Diam: 3.2 cm (2.7 - 3.8) LAESV Index (A-L): 22.04 ml/m Ao Diam: 3.4 cm (2.0 - 3.7) AV Cusp: 1.5 cm (1.5 - 2.6) MV EXCURSION: 9.718 mm (> 18.000) MV EF SLOPE: 49 mm/s (70 - 150) EPSS: 0.8 cm AV maxP.34 mmHg AV meanP.73 mmHg FINDINGS -------- Sinus rhythm. Resting tachycardia (HR>100bpm). This was a technically adequate study. The left ventricular size is normal. There is moderate concentric left ventricular hypertrophy. O verall left ventricular systolic function is normal with, an EF between 55 - 60 %. The right ventricle is normal in size. Normal LA size by volume 22+/-6 ml/m2. The right atrial size is normal. There is moderate aortic valve sclerosis. There is mild aortic stenosis present. Peak/mean gradie nt across the Aortic Valve is 27.34mmHg / 13.73mmHg. Moderate mitral annular calcification present. Mild mitral regurgitation is present. The tricuspid valve appears structurally normal. Unable to estimate RVSP due to inadequate TR jet s pectral doppler profile. Trace/mild (physiologic) pulmonic regurgitation. The aortic root size is normal. IVC Not well visulized. There is no pericardial effusion. CONCLUSIONS -------- 1. There is moderate concentric left ventricular hypertrophy. 2. Overall left ventricular systolic function is normal with, an EF between 55 - 60 %. 3. Normal LA size by volume 22+/-6 ml/m2. 4. There is moderate aortic valve sclerosis. 5. There is mild aortic stenosis present. 6. Peak/mean gradient across the Aortic Valve is 27.34mmHg / 13.73mmHg. 7. Moderate mitral annular calcification present. 8. Mild mitral regurgitation is present. 9. Trace/mild (physiologic) pulmonic regurgitation. 10. There is no pericardial effusion. SUPERVISOR GRIPS: Barbie Whaley RDCS
[2020-12-28 16:38] LABS: Glucose,Whole Blood 184 mg/dL (75-99)
[2020-12-28] MEDS: CHOLESTYRAMINE (WITH SUGAR) 4 GM PACKET PO SCH (17:02)
[2020-12-28] MEDS: HYDROcodone/APAP 10-325MG 1 EACH TAB PO PRN (19:44)
[2020-12-28 20:00] LABS: Glucose,Whole Blood 220 mg/dL (75-99)
[2020-12-28] MEDS ORDERED: rOPINIRole HCL 4 MG TABLET PO SCH (21:00)
[2020-12-28] MEDS ORDERED: atenoloL 50 MG TAB PO SCH (21:00)
[2020-12-28] MEDS ORDERED: ATORVASTATIN 40 MG TAB PO SCH (21:00)
[2020-12-28] MEDS ORDERED: TEMAZEPAM 15 MG CAP PO SCH (21:00)
[2020-12-28 22:01] VITALS: RESP 18
[2020-12-29 06:09] LABS: Glucose,Whole Blood 211 mg/dL (75-99)
[2020-12-29] MEDS: PANTOPRAZOLE 40 MG TABLET PO SCH (06:16)
[2020-12-29] MEDS: INSULIN ASPART (NovoLOG) 100 UNIT/ML VIAL SQ SCH ×2 (06:16→12:57)
[2020-12-29] MEDS: LEVOTHYROXINE 25 MCG TAB PO SCH (06:16)
[2020-12-29] MEDS: DULoxetine HCL 60 MG CAPSULE.DR PO SCH (08:04)
[2020-12-29] MEDS: allopurinoL 100 MG TAB PO SCH (08:04)
[2020-12-29] MEDS: atenoloL 50 MG TAB PO SCH (08:04)
[2020-12-29] MEDS: CALCIUM CARB-VIT D 500 MG-5 MCG TAB PO SCH (08:04)
[2020-12-29] MEDS: CHOLECALCIFEROL 25 MCG (1000 IU) TABLET PO SCH (08:04)
[2020-12-29] MEDS: GABAPENTIN 300 MG CAP PO SCH (08:06)
[2020-12-29] MEDS: methocarbamoL 500 MG TAB PO SCH (08:06)
[2020-12-29] MEDS: IPRATROPIUM BROMIDE 0.06% NASAL SPRAY (15 ML) EA NOSTRIL SCH (08:07)
[2020-12-29] MEDS: APIXABAN 5 MG TAB PO SCH (08:09)
[2020-12-29] MEDS: CHOLESTYRAMINE (WITH SUGAR) 4 GM PACKET PO SCH (08:12)
[2020-12-29] MEDS ORDERED: [UNRECOGNIZED DRUG - OTHER] PO SCH (09:00)
[2020-12-29 09:12] LABS: African American GFR (CKD) >90 (>60 ml/min/1.73 sqM); Anion Gap 8 mmol/L; Blood Urea Nitrogen 17 mg/dL (7-17); Calcium 9.7 mg/dL (8.4-10.2); Carbon Dioxide 23 mmol/L (22-30); Chloride 109 mmol/L (98-107); Glucose 169 mg/dL (74-99); Non-African American GFR(CKD) >90 (>60 ml/min/1.73 sqM); Potassium 4.3 mmol/L (3.5-5.1); Sodium 140 mmol/L (137-145)
--- NOTE | 2020-12-29 09:19 | P.DS ---
Providers Date of admission: 12/27/20 18:25 Expected date of discharge: 12/29/20 Attending physician: Carlos Enrique Farooq Consults: 12/27/20 18:25 Consult Physician Urgent Consulting Provider: Henry Schmid Consult Reason/Comments: tachycardia Do you want consulting provider notified?: Yes Primary care physician: Alvarez [facility] Course: HISTORY OF PRESENT ILLNESS This is a 80-year-old female one of Dr. Rocha patient with past medical history of Factor V Leiden deficiency, type 2 diabetes, non-Hodgkin's lymphoma [place] [address] Monaco and follows with Dr. Aranda status post chemotherapy and radiation therapy, TIA 5 years ago, hypertension, hyperlipidemia, hypertension, hypothyroidism, restless leg syndrome, recurrent depression, and osteoarthritis who has been treated for lower back pain post multiple lower back surgery and epidural injection with pain management at [facility], previous admission for acute GI bleed and acute blood loss anemia status post EGD and colonoscopy which revealed antral gastritis, area of ulceration, nonbleeding, in the distal transverse colon, pulmonary embolism and left lower leg DVT diagnosed 03/08/2020 on eliquis. She recently underwent revision T12-L2 fusion and decompression in in March 2020. Patient had a recent hospitalization at which time she was treated for right subclavian stenosis presenting with blue fingers on the right hand and seen by Dr. Mortensen with plan for outpatient angiogram which has been scheduled for January 01. Patient states she developed palpitations and shortness of breath. She came into [facility] emergency center and initially found to have a heart rate of 160. EKG was done which showed a sinus tachycardia in the 140s with repeat in the 120s. She had no signs of atrial fibrillation. Patient states that she was having heartburn this started around 2 AM yesterday. At 11 in the morning physical therapy from [facility] evaluated her vital signs prior to starting therapy and found her heart rate to be elevated. Patient was not nauseated that time but did develop nausea later. She states she had sweats all day. She also complains of diarrhea for the past 3 days usually about 4-5 times per day but already has had 3 episodes this morning. Stools are watery and she has a bowel movement with each time she urinates. She also complains of cold feet and purple discoloration of her feet and also splitting of the skin on her right index finger tip and right little finger tip near the nail bed. Patient has been afebrile, heart rate is currently 111, blood pressure 114/60 and pulse ox 97% on room air. CBC was unremarkable. Electrolytes normal, creatinine 0.55, blood sugar 206. Calcium 10.5, liver function tests were normal. Troponin negative on 3 draws. ProBNP 209. TSH 0.686. Coronavirus not detected. Chest x-ray reveals chronic changes without acute pulmonary process. Patient admitted to the cardiac stepdown unit and consult in place with cardiology. Patient has been seen by Dr. Pak and echocardiogram ordered. 12/29: Patient's heart rate is running anywhere from 59-97 bpm. Blood pressure 120/79, pulse ox 99% on room air. She has been afebrile. She states she is feeling better from yesterday. She does not have any chest pain or palpitations. 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 Patient states diarrhea is improved with Questran. She has been instructed to continue Questran at home and take Lomotil as needed. She is also scheduled for angiogram this week with Dr. Mortensen and instructed to stop eliquis as has been instructed by Dr. Mortensen. Patient has been seen by cardiology and cleared for discharge home. Patient will be discharged home today in stable condition. ASSESSMENT AND PLAN 1. Sinus tachycardia of unclear etiology, most likely secondary to diarrhea. 2. Diarrhea of unclear etiology. 3. Right subclavian stenosis. Patient is scheduled for angiogram with Dr. Mortensen on January 01. 4. Right lower lobe pulmonary embolism. 5. Factor V Leiden deficiency. 6. Diabetes mellitus type 2. 7. Non-Hodgkin's lymphoma [place] [address] Monaco and follows with Dr. Aranda, in remission. 8. History of TIA with no deficits. 9. 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 10. Hypertension. 11. Hypothyroidism. 12. Seasonal ALLERGIES. 13. Recurrent depression. 14. Chronic gout. 15. Hyperlipidemia. 16. Restless leg syndrome. 17. GERD. DISCHARGE PLAN Home today. Impression and plan of care have been directed as dictated by the signing physician. Karen Quintero nurse practitioner acting as scribe for signing physician. Patient Condition at Discharge: Good Plan - Discharge Summary Discharge Rx Participant: Yes New Discharge Prescriptions: New Loperamide [Imodium] 2 mg PO TID cap Cholestyramine (with Sugar) [Questran Packet] 4 gm PO BID@1000,1800 #30 packet atenoloL [Tenormin] 50 mg PO BID #60 tab Continue allopurinoL [Zyloprim] 100 mg PO DAILY Calcium Carb-Vit D 500Mg-5Mcg [Oscal 500+D 5 Mcg (200 Iu)] 1 tab PO DAILY Levothyroxine Sodium [Synthroid] 12.5 mcg PO DAILY Alpha Lipoic Acid 600 mg PO DAILY Gabapentin [Neurontin] 300 mg PO TID Ipratropium Bostic 0.06%Nasal [Atrovent Nasal 0.06%] 2 spr EA NOSTRIL BID HYDROcodone/APAP 10-325MG [[place] 10-325] 1 tab PO BID PRN PRN Reason: Pain Biotin 10 mg PO DAILY Dexlansoprazole [Dexilant] 60 mg PO DAILY Empaglifloz/Linaglip/Metformin [Trijardy Xr 25-5-1,000 mg Tab] 1 tab PO DAILY Temazepam [Restoril] 15 mg PO HS Apixaban [Eliquis] 5 mg PO BID rOPINIRole HCL [Requip] 2 mg PO BID@0800,1200 DULoxetine HCL [Cymbalta] 60 mg PO DAILY methocarbamoL [Robaxin] 500 mg PO TID Nuno-E 1000mg 1,000 mg PO DAILY Cholecalciferol [Vitamin D3 (25 Mcg = 1000 Iu)] 25 mcg PO DAILY Estradiol Cream [Estrace Cream 0.01%] 1 gm VAGINAL SUTH rOPINIRole HCL [Requip] 4 mg PO HS Atorvastatin [Lipitor] 40 mg PO HS Discontinued atenoloL [Tenormin] 50 mg PO HS Polyethylene Glycol 3350 [Miralax] 17 gm PO DAILY PRN PRN Reason: Constipation Psyllium Husk 100% [Metamucil Packet] 6 gm PO BID packet Discharge Medication List Calcium Carb-Vit D 500Mg-5Mcg [Oscal 500+D 5 Mcg (200 Iu)] 1 tab PO DAILY 01/05/14 [History] allopurinoL [Zyloprim] 100 mg PO DAILY 01/05/14 [History] Levothyroxine Sodium [Synthroid] 12.5 mcg PO DAILY 03/16/14 [History] Alpha Lipoic Acid 600 mg PO DAILY 07/03/20 [History] Gabapentin [Neurontin] 300 mg PO TID 07/03/20 [History] Ipratropium Bostic 0.06%Nasal [Atrovent Nasal 0.06%] 2 spr EA NOSTRIL BID 07/03/20 [History] Biotin 10 mg PO DAILY 07/15/20 [History] HYDROcodone/APAP 10-325MG [[place] 10-325] 1 tab PO BID PRN 07/15/20 [History] Dexlansoprazole [Dexilant] 60 mg PO DAILY 08/07/20 [History] Empaglifloz/Linaglip/Metformin [Trijardy Xr 25-5-1,000 mg Tab] 1 tab PO DAILY 09/20/20 [History] Apixaban [Eliquis] 5 mg PO BID 10/06/20 [History] Temazepam [Restoril] 15 mg PO HS 10/06/20 [History] methocarbamoL [Robaxin] 500 mg PO TID 12/03/20 [History] rOPINIRole HCL [Requip] 2 mg PO BID@0800,1200 12/03/20 [History] Cholecalciferol [Vitamin D3 (25 Mcg = 1000 Iu)] 25 mcg PO DAILY 12/17/20 [History] DULoxetine HCL [Cymbalta] 60 mg PO DAILY 12/17/20 [History] Estradiol Cream [Estrace Cream 0.01%] 1 gm VAGINAL SUTH 12/17/20 [History] Nuno-E 1000mg 1,000 mg PO DAILY 12/17/20 [History] Atorvastatin [Lipitor] 40 mg PO HS 12/27/20 [History] rOPINIRole HCL [Requip] 4 mg PO HS 12/27/20 [History] Cholestyramine (with Sugar) [Questran Packet] 4 gm PO BID@1000,1800 #30 packet 12/29/20 [Rx] Loperamide [Imodium] 2 mg PO TID cap 12/29/20 [Rx] atenoloL [Tenormin] 50 mg PO BID #60 tab 12/29/20 [Rx] Follow up Appointment(s)/Referral(s): Alvarez Rocha DO [Primary Care Provider] - [facility] [Provider Group] - 1 Week Activity/Diet/Wound Care/Special Instructions: Follow instructions from Dr. Mortensen for procedure this week. Discharge Disposition: HOME SELF-CARE
[2020-12-29] MEDS: HYDROcodone/APAP 10-325MG 1 EACH TAB PO PRN (11:17)
[2020-12-29 11:21] VITALS: BP 120/79; PULSE 59; TEMP 97.6
--- NOTE | 2020-12-29 11:36 | PN ---
PROGRESS NOTE Mrs. Youngblood is a 80-year-old female who presented with tachycardia. She is feeling better today. Her sinus tachycardia resolved. She denies any chest pain. She denies any dizziness or palpitation. She has a known history of DVT, PE and scheduled to undergo angiography of the right upper extremity. She has a history of Factor V Leiden deficiency and non-Hodgkin lymphoma. She denies any chest pain. She denies any dizziness or palpitations. She denies any nausea. She underwent an echocardiogram yesterday that revealed a preserved left ventricular size and systolic function with mild aortic stenosis and mild mitral regurgitation. She continues to be at this time on Eliquis 5 mg twice a day, atenolol 50 mg twice a day, levothyroxine. PHYSICAL EXAMINATION: Blood pressure 113/70 with a heart rate in the 80s to 90s. LUNGS: Clear. HEART: Regular rate and rhythm S1, S2. No S3. No rub with systolic murmur ejection type heard at the base. ABDOMEN: Soft, nontender. EXTREMITIES: No significant edema. Ecchymoses noted on the right upper extremity more than the left. LAB DATA: Lab data revealed BUN and creatinine 17 and 0.47, potassium 4.3. IMPRESSION: 1. Sinus tachycardia, resolved. 2. History of pulmonary embolism and deep venous thrombosis. 3. History of non Hodgkin's lymphoma. 4. Dyspnea on exertion, stable. No evidence of fluid overload. 5. Mild aortic stenosis. RECOMMENDATION: From the cardiac standpoint she is doing well on the present regimen. I would expect she should be able to be discharged home soon and be readmitted to undergo the angiogram as scheduled. MMODL / IJN: [id number] /
[2020-12-29 12:09] LABS: Glucose,Whole Blood 190 mg/dL (75-99)
[2020-12-29] MEDS ORDERED: ESTRADIOL 0.1 MG/GM VAGINAL CREAM 42.5 GM TUBE VAGINAL SCH (21:00)
== END 2020-12-29 16:00 | disposition home or self-care (01) | DRG 309 ==
LOC: EC 14:45 → 3SCARD 18:25
PROVIDERS: ADMIT Internal Medicine Geriatric Medicine; ATTEND Internal Medicine Geriatric Medicine
PROC: 5A2204Z Restoration of Cardiac Rhythm, Single (ICD-10-PCS; principal; 2020-12-27)
DX: R00.0 Tachycardia, unspecified (principal); D68.51 Activated protein C resistance; F33.9 Major depressive disorder, recurrent, unspecified; Z79.01 Long term (current) use of anticoagulants; Z86.718 Personal history of other venous thrombosis and embolism; Z79.890 Hormone replacement therapy; Z86.73 Personal history of transient ischemic attack (TIA), and cerebral infarction without residual deficits; E78.5 Hyperlipidemia, unspecified; Z20.822 Contact with and (suspected) exposure to COVID-19; Z86.711 Personal history of pulmonary embolism; Z92.21 Personal history of antineoplastic chemotherapy; Z92.3 Personal history of irradiation; Z85.72 Personal history of non-Hodgkin lymphomas; M19.90 Unspecified osteoarthritis, unspecified site; R19.7 Diarrhea, unspecified; E11.9 Type 2 diabetes mellitus without complications; M48.061 Spinal stenosis, lumbar region without neurogenic claudication; G89.29 Other chronic pain; M54.5 Low back pain; I10 Essential (primary) hypertension; J30.2 Other seasonal allergic rhinitis; E03.9 Hypothyroidism, unspecified; G25.81 Restless legs syndrome; K21.9 Gastro-esophageal reflux disease without esophagitis; I35.0 Nonrheumatic aortic (valve) stenosis; R06.09 Other forms of dyspnea; M47.9 Spondylosis, unspecified; Z98.1 Arthrodesis status; M1A.9XX0 Chronic gout, unspecified, without tophus (tophi); M48.04 Spinal stenosis, thoracic region; Z80.3 Family history of malignant neoplasm of breast; Z80.1 Family history of malignant neoplasm of trachea, bronchus and lung; Z82.3 Family history of stroke; Z82.49 Family history of ischemic heart disease and other diseases of the circulatory system; Z96.653 Presence of artificial knee joint, bilateral; Z90.710 Acquired absence of both cervix and uterus; I70.8 Atherosclerosis of other arteries; F40.240 Claustrophobia
CPT/HCPCS: 36415; 71045; 80048; 80053; 83735; 83880; 84443; 84484; 85025; 85610; 85730; 87635; 93005; 93306; 96365; 96366; 96375; 99285

== ENCOUNTER 2021-01-01 11:53 | Inpatient (IN) | payer MEDICARE ==
[2020-12-30 12:34] VITALS: BMI 25.9
[~2021-01-01 11:53] MED LIST changes: -LACTATED RINGERS 1,000 ML IV SCH; -LIDOCAINE 1% (10MG/ML) FOR IV START INTRADERMA PRN; +SODIUM CHLORIDE 0.9% 1,000 ML in EMPTY BAG 1 BAG IV ONE
[2021-01-01 12:39] LABS: Glucose,Whole Blood 170 mg/dL (75-99)
[2021-01-01] MEDS ORDERED: LIDOCAINE 1% INJ 10MG/ML (20 ML MDV) ONE (13:39)
[2021-01-01] MEDS ORDERED: fentaNYL (PF) 50 MCG/ML 2 ML AMP ONE (13:53)
[2021-01-01] MEDS ORDERED: fentaNYL (PF) 50 MCG/ML 2 ML AMP IV ONE (13:55)
[2021-01-01] MEDS ORDERED: LIDOCAINE 1% INJ 10MG/ML (20 ML MDV) SQ ONE (13:57)
[2021-01-01] MEDS ORDERED: HEPARIN SODIUM 1,000 UN/ML (10ML VL) ONE (14:42)
[2021-01-01] MEDS ORDERED: hydrALAZINE HCL 20 MG/ML 1 ML VIAL ONE (15:15)
[2021-01-01] MEDS ORDERED: hydrALAZINE HCL 20 MG/ML 1 ML VIAL IV ONE (15:19)
[2021-01-01] MEDS ORDERED: METOPROLOL TARTRATE 5 MG/5 ML VIAL IVP ONE (15:48)
[2021-01-01] MEDS: LABETALOL SYRINGE 5 MG/ML IV ONE ×3 (15:52→16:10)
[2021-01-01] MEDS ORDERED: IOPAMIDOL-250 100ML BTL INTRAARTER ONE ×3 (15:53)
[2021-01-01] MEDS ORDERED: NALOXONE 0.4 MG/ML 1 ML VIAL IV ONE (16:15)
[2021-01-01] MEDS ORDERED: NALOXONE 0.4 MG/ML 1 ML VIAL ONE (16:21)
--- NOTE | 2021-01-01 17:05 | CT ---
CT scan of the brain. History weakness. Comparison 07/06/2020. FINDINGS: There is cerebral cortical atrophy. There is no mass effect nor midline shift. There is no sign of in tracranial hemorrhage. There is some increased density in the vessels consistent with recent cardiac contrast exam. Calvarium is intact. There is no evidence of cerebral edema. IMPRESSION: Cerebral atrophy. No acute intracranial abnormality. No change.
--- NOTE | 2021-01-01 17:36 | CT ---
EXAMINATION TYPE: CODE STROKE: CTA head neck DATE OF EXAM: 01/01/2021 COMPARISON: CT neck 04/20/2014 HISTORY: Weakness CT DLP: mGycm Automated exposure control for dose reduction was used. CONTRAST: The contrast was Isovue 65 mL. There are 3-D post processed images. There is normal branching pattern of the great vessels on the aortic arch. There is atherosclerotic p laque in the aortic arch. There is arterial flow in both subclavian arteries. There is arterial flow in the common internal and external carotid arteries bilaterally. There is arterial flow in both vert ebral arteries. There is arterial flow in the vertebrobasilar artery system. There is fairly wide pat ency of the carotid artery bifurcations. I see no evidence of any significant luminal narrowing. Ther e is no evidence of carotid or vertebral artery aneurysm or dissection. There is some mild tortuosity of the internal carotid arteries bilaterally. There is arterial flow in the anterior middle and posterior cerebral arteries. There is arterial flow in the posterior communicating arteries. I see no evidence of intracranial aneurysm or neovascularit y. There is no mass effect. I see no evidence of intracranial hemodynamic stenosis. IMPRESSION: No evidence of hemodynamic stenosis in the brain and neck. No significant luminal narrowing. Atheroma tous thoracic aorta. No aneurysm.
[2021-01-01] MEDS ORDERED: RX INFO: IV CONTRAST WAS GIVEN 1 EACH MISC MISCELLANE PRN (17:56)
[2021-01-01 20:33] LABS: Glucose,Whole Blood 190 mg/dL (75-99)
--- NOTE | 2021-01-01 21:00 | P.OP ---
Date of Procedure: 01/01/21 Description of Procedure: Preoperative diagnosis: [Right brachiocephalic stenosis, microembolic disease right fingers,] Postoperative diagnosis: Same, right brachiocephalic occlusion Procedure: [#1 ultrasound guided right brachial artery access #2 right upper extremity angiogram #3 aortic arch angiogram #4 IVUS right brachial artery #5 IVUS right subclavian artery #6 IVUS right brachiocephalic artery #7 percutaneous transluminal balloon angioplasty right brachiocephalic artery 4 x 60 balloon #8 percutaneous transluminal balloon angioplasty right subclavian artery #9 balloon expandable stent 8 x 37 right radiocephalic artery #10 monitoring of intra-arterial pressure] Surgeon: Venessa Mortensen D.O. EBL: [Less than 10 mL] IV fluids: [See records] Urine output: [Not measured] Drains: [None] Complications: [At the conclusion of the procedure after sheath was pulled, with antihypertensive medications to bring the patient down from the 190s to the 120s, began showing signs and symptoms of lethargy, weakness, facial droop. A code stroke was called. Patient was transported to the CT and subsequently evaluated by neuro interventional who says at this time no intervention needed, she slowly did start resolving the symptomatology previously shown. At this point imaging is negative as well.] Condition: [Stable] Operative indication and findings: [Pretty is a 80-year-old female who approximately 1-2 months ago began having issues with increasing pain of her right upper extremity as well as cyanotic changes of her fingertips. Initially she underwent arterial imaging in the form of an ultrasound and a CT angiogram which showed no significant issues or concerns. She did have previous accident no dissection and some degree of lymphedema to the left upper extremity therefore no pressures or images were performed at this side other than the digital pressure which did show a 30 point difference. After significant review of previous old imaging a computed tomography scan of the chest had been identified and there was evidence of subclavian stenosis as well as brachiocephalic stenosis. Given these findings in the office we did have a discussion and opted to take pressures on the other side revealing a near 50 point difference in her systolic blood pressures. Given these findings as well as her continued issues with cyanotic fingertips it was decided she would benefit from going forward with an angiogram and possible stenting. It was discussed at length the risks and benefits including but not limited to bleeding and infection as well as that of stroke. Everyone seemingly understood and was willing to proceed as such] Procedure in detail: [The patient was taken to the operative suite and placed in supine position. The right upper extremity was prepped and draped in usual sterile fashion. A preprocedure timeout was performed, all parties were in agreement. A ultrasound was utilized and the brachial artery was identified. The skin overlying was anesthetized with 1% lidocaine plain. A micropuncture needle was used and the artery was cannulated on first attempt. Seldinger technique was used to place the sheath followed by a 5-Ukrainian sheath. A right upper extremity angiogram was performed revealing normal-appearing axillary and a portion of the subclavian artery with blunt occlusion of the subclavian artery and there is a patent vertebral artery visualized from this view. The arterial pressures were monitored from this sheath site revealing a systolic pressure of 148 while the cuff pressure on the extremity otherwise measured 190. Catheters and wires were utilized to cross the lesion. A catheter was then used to confirm luminal placement into the thoracic aorta. A pigtail catheter was placed and a arch angiogram was performed revealing a disease brachiocephalic artery with a widely patent common carotid artery on the right without evidence of visualized flow through the subclavian from this point. Type II arch. At that point the wire was exchanged for an 014 wire and the IVUS was utilized and recorded through the right brachial, subclavian and brachiocephalic arteries and into the thoracic aorta. There was evidence of severe disease the brachiocephalic with significant narrowing abutting on the catheter at the level of the subclavian artery. This is also utilized for marking and appropriate orifice takeoff. The crossing catheter that was then replaced and the 035 wire was placed. The catheter was removed. A 4 x 60 balloon was utilized at the brachiocephalic artery as well as the subclavian artery. A repeat angiogram was performed revealing some flow analysis through the subclavian artery. After these images patient was evaluated neurologically anastomosis squeezed the squeaker in her left hand which she was able to do. The sheath was removed and exchanged for a 5/6 slender long sheath. This is advanced over the wire into the thoracic aorta. The inner cannula was then removed. A 8 by 37 balloon expandable stent was placed through the sheath and the sheath was withdrawn leaving the stent at the proposed area. It was deployed in standard fashion. That point hand-injection images were performed revealing significant improvement of the brachiocephalic trunk as well as brisk flow through the carotid, subclavian and vertebral arteries with good clearance. Again the patient was able to utilize the squeaker following stent deployment. Attempts were made to pass a patent catheter back into the thoracic aorta but given the significant tortuosity of the vessel and stent it was unable to do so safely without motion to the stent. Catheters and wires were removed The patient at this point had a bounding brachial, radial and ulnar pulse. Repeat pressures were taken through the sheath, they measured 160 which was the same as the peripheral cough that previously was 40 points different. That point the patient was given some medication for hypertension. The sheath was pulled and pressure was held until hemostasis was adequate. At the tail end of holding pressure, the above incident occurred. Patient was sent for stroke evaluation. Dressings were placed on the arm with no evidence of hematoma. She had palpable radial and ulnar pulses following.]
[2021-01-01] MEDS ORDERED: LOPERAMIDE 2 MG CAP PO PRN (21:14)
[2021-01-01] MEDS: ATORVASTATIN 40 MG TAB PO SCH (21:30)
[2021-01-01] MEDS: ACETAMINOPHEN TAB 500 MG TAB PO PRN (21:30)
--- NOTE | 2021-01-01 21:57 | P.CONS ---
History of Present Illness - Reason for Consult Consult date: 01/01/21 Medical management, stroke and steal syndrome Requesting physician: Venessa Mortensen - Chief Complaint CVA post percutaneous transluminal angioplasty and stent placement - History of Present Illness HISTORY OF PRESENT ILLNESS This is a 80-year-old female one of Dr. Rocha patient with past medical history of type 2 diabetes, non-Hodgkin's lymphoma [place] [address] Monaco and follows with Dr. Aranda status post chemotherapy and radiation therapy, TIA 5 years ago, hypertension, hyperlipidemia, hypertension, hypothyroidism, restless leg syndrome, recurrent depression, and osteoarthritis who has been treated for lower back pain post multiple lower back surgery and epidural injection with pain management at [facility], previous admission for acute GI bleed and acute blood loss anemia status post EGD and colonoscopy which revealed antral gastritis, area of ulceration, nonbleeding, in the distal transverse colon, pulmonary embolism and left lower leg DVT diagnosed 03/08/2020 on eliquis. She recently underwent revision T12-L2 fusion and decompression in in March 2020. Patient was seen recently with Dr. Mortensen for change in the color of her fingertip under Eliquis was increased from 2.5-5 mg twice a day as she omits the blood clot issue. Patient symptoms become much worse she was seen at her primary care physician who was concerned about blood clot in the subclavian area with a change consistent with possible acute thrombus see send her to the emergency department at [facility] where was seen and ev aluated she was started on mild hydration she is in slight bit discomforted time patient will be hospitalized will be seen vascular and might need to go for angiogram to exclude any arterial thrombus. Patient at the time was diagnosed with recurrent UTI debility related to her back condition and the current thrombus. Patient was sent home last week and was scheduled to see Dr. Mortensen for possible thrombectomy and steal syndrome, patient ended up having right upper extremity angiogram with ultrasound guided right brachial artery axis for right brachiocephalic occlusion. Ended up having percutaneous transluminal balloon angioplasty of the right brachiocephalic artery with stent placement the same time. Patient developed to have stroke symptoms as soon as the sheath was pulled out with the blood pressure dropped down from 190-100 she developed to have lethargy, weakness, facial droop. Code stroke was called patient was transferred to the CT subsequently evaluated by neuro interventional who said this time no intervention needed she slowly did start resolving with her symptomatology all the major is negative patient was stable at the time. Patient was admitted to the floor under Dr. Mortensen's service requested medical consultation also requested neuro consult. Neuro exam every 2 hours will be done through the entire night. Her medication will be started at a debate whether to start her on anticoagulation or not as soon as tomorrow morning will be discussed with vascular. REVIEW OF SYSTEMS Constitutional: No fever, no chills, no night sweats. No weight change. Reports weakness, reports fatigue denies lethargy. No daytime sleepiness. EENT: No headache. No blurred vision or double vision, no loss of vision. No loss of Hearing, no ringing in the ears, Reports dizziness. No nasal drainage or congestion. No epistaxis. No sore throat. Lungs: Denies shortness of breath, cough, no sputum production. No wheezing. Cardiovascular: No chest pain, no left lower extremity edema. No palpitations. No paroxysmal nocturnal dyspnea. No orthopnea. No lightheadedness or dizziness. No syncopal episodes. Abdominal: No abdominal pain. No nausea, vomiting. No diarrhea. No constipation. No bloody or tarry stools.. No loss of appetite. Genitourinary: No dysuria, increased frequency, urgency. No urinary retention. Reports incontinence, loss of bladder control Musculoskeletal: No myalgias. Reports muscle weakness, reports gait dysfunction, reports 2 falls. Reports back pain. No neck pain. Integumentary: No wounds, no lesions. No rash or pruritus. No unusual bruising. Slight purple color of the fingertip with possibility of arterial thrombus. Neurologic: No aphasia. No facial droop. No change in mentation. No head injury. No headache. No paralysis. No paresthesia. Psychiatric: No depression. No anxiety. No mood swings. Endocrine: No abnormal blood sugars. SOCIAL HISTORY Patient is a lifelong nonsmoker. No alcohol use, marijuana use, illicit drug use. 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 Patient lives alone with her daughter. She ambulates with a walker. She has been at [facility] for subacute rehab in the past. FAMILY HISTORY Mother in her late 80s from breast cancer and dementia. Father at age 32 from pulmonary embolism and DVT. Patient has 2 brothers and a past, one from myocardial infarction and one from pulmonary embolism. 2 brothers are alive and one has lung cancer and one living brother has a brain aneurysm and CVA. Patient has 5 biological children with no major medical problems. PHYSICAL EXAMINATION Gen: This is A 80-year-old female. Patient is resting in bed appears to be comfortable and in no acute distress. No respiratory distress is noted. HEENT: Head is atraumatic, normocephalic. Pupils equal, round. Sclerae is anicteric. NECK: Supple. No JVD. No lymphadenopathy. No thyromegaly. LUNGS: Clear to auscultation. No wheezes or rhonchi. No intercostal retractions. HEART: Regular rate and rhythm. No murmur. ABDOMEN: Soft. Bowel sounds are present. No masses. Mild right lower quadrant tenderness. BACK: Surgical wound is healed. No drainage, erythema. No deformity noted. EXTREMITIES: No pedal edema. No calf tenderness. Dorsalis pedis palpable bilaterally. Left foot drop, slight discoloration of the color of her fingertip especially the left side with slight discomfort as well. NEUROLOGICAL: Patient is awake, alert and oriented x3. Cranial nerves 2 through 12 are grossly intact. ASSESSMENT AND PLAN 1. New sign and symptom of stroke after an angiogram: Patient CT did not show any abnormality at this point patient does not show any sign of droopy face or weakness she still have generalized weakness of the lower extremity to be watch mostly. No sign of bleed and hopefully to keep her blood pressure under 150 anticoagulation be started as of yesterday tomorrow we'll consult neurology again. 2. 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 3. Recent UTI and sepsis: Was treated and done well so far. 4. History of pulmonary embolism: Restart Eliquis 5 mg twice daily by tomorrow morning. 5. Diabetes mellitus type 2. Recheck Hemoglobin A1c. Patient will be on NovoLog scale before meals and at bedtime. 6. Non-Hodgkin's lymphoma [place] [address] Monaco and follows with Dr. Aranda, in remission. 7. History of TIA with no deficits. 8. 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 Continue gabapentin 300 mg twice daily and 600 at bedtime. 9. Hypertension. Hold amlodipine 5 mg daily, continue atenolol 50 mg twice daily. 10. Hypothyroidism. Continue levothyroxine 12.5 g daily. 11. Seasonal ALLERGIES. Continue Singulair 10 mg at bedtime. 12. Recurrent depression. Continue Prozac 30 mg daily. 13. Chronic gout. Continue allopurinol 100 mg daily. 14. Hyperlipidemia. Patient is not currently on statin. 15. Restless leg syndrome. Continue Requip. 16. GERD and GI prophylaxis. Protonix COVID-19 testing: Patient was negative Patient admitted to the hospital in pandemic time for a minimum of 2 night stay. Past Medical History Past Medical History: Blood Disorder, Cancer, Diabetes Mellitus, Deep Vein Thrombosis (DVT), GERD/Reflux, Hyperlipidemia, Hypertension, Osteoarthritis (OA), Pulmonary Embolus (PE), Skin Disorder, Syncope, Thyroid Disorder Additional Past Medical History / Comment(s): TIA X2-no residual effects, VARICOSE VEINS, GOUT, non hodgkins LYMPHOMA (HX OF CHEMO & RADIATION 1977,1982 & 1993), hx migraines, hx ulcer, constipation, "red spots all over", states diffi culty swallowing & having acid reflux., hammer toes. low back pain with and down rt leg-uses a walker, rt foot "drop foot", factor V leiden, poor circulation,soreness and edema rt arm- fingers turning blue with numbness, (states 75% of rt arm black and blue), History of Any Multi-Drug Resistant Organisms: None Reported Past Surgical History: Appendectomy, Back Surgery, Breast Surgery, Cholecystectomy, Hysterectomy, Joint Replacement, Orthopedic Surgery, Tonsillectomy Additional Past Surgical History / Comment(s): RIGHT HIP REPAIR, german KNEE REPLACEMENT, rods german thumbs and rt 3rd toe, BREAST & AXILLARY BX, TUMOR IN THROAT REMOVED., CERVICAL FUSION, LUMBAR LAMINECTOMY,DECOMPRESSION-FUSION L1- L2.,back surgery for nerve and tendons, german cataracts Past Anesthesia/Blood Transfusion Reactions: No Reported Reaction Additional Past Anesthesia/Blood Transfusion Reaction / Comm: CLAUSTROPHOBIA Past Psychological History: Anxiety, Depression Additional Psychological History / Comment(s): (end of 2019) Smoking Status: Never smoker Past Alcohol Use History: None Reported Additional Past Alcohol Use History / Comment(s): . Past Drug Use History: None Reported - Past Family History Father Family Medical History: Deep Vein Thrombosis (DVT), Pulmonary Embolus Additional Family Medical History / Comment(s): Father at age 32 from pulmonary embolism. Mother Family Medical History: Cancer Additional Family Medical History / Comment(s): breast Brother(s) Family Medical History: Cancer, Deep Vein Thrombosis (DVT) Additional Family Medical History / Comment(s): 2 brothers that have passed one from myocardial infarction and one from pulmonary embolism. 2 brothers are alive and one has lung cancer, one brother is alive with a brain aneurysm and CVA. Medications and Allergies Home Medications Medication Instructions Recorded Confirmed Type Calcium Carb-Vit D 500Mg-5Mcg 1 tab PO DAILY 01/05/14 01/01/21 History [Oscal 500+D 5 Mcg (200 Iu)] allopurinoL [Zyloprim] 100 mg PO DAILY 01/05/14 01/01/21 History Levothyroxine Sodium [Synthroid] 12.5 mcg PO DAILY 03/16/14 01/01/21 History Alpha Lipoic Acid 600 mg PO DAILY 07/03/20 01/01/21 History Gabapentin [Neurontin] 300 mg PO TID 07/03/20 01/01/21 History Ipratropium [place] 0.06%Nasal 2 spr EA NOSTRIL BID 07/03/20 01/01/21 History [Atrovent Nasal 0.06%] Biotin 10 mg PO DAILY 07/15/20 01/01/21 History HYDROcodone/APAP 10-325MG [[place] 1 tab PO BID PRN 07/15/20 01/01/21 History 10-325] Dexlansoprazole [Dexilant] 60 mg PO DAILY 08/07/20 01/01/21 History Empaglifloz/Linaglip/Metformin 1 tab PO DAILY 09/20/20 01/01/21 History [Trijardy Xr 25-5-1,000 mg Tab] Apixaban [Eliquis] 5 mg PO BID 10/06/20 12/30/20 History Temazepam [Restoril] 15 mg PO HS 10/06/20 01/01/21 History methocarbamoL [Robaxin] 500 mg PO TID 12/03/20 01/01/21 History rOPINIRole HCL [Requip] 2 mg PO BID@0800,1200 12/03/20 01/01/21 History Cholecalciferol [Vitamin D3 (25 25 mcg PO DAILY 12/17/20 01/01/21 History Mcg = 1000 Iu)] DULoxetine HCL [Cymbalta] 60 mg PO DAILY 12/17/20 01/01/21 History Estradiol Cream [Estrace Cream 1 gm VAGINAL SUTH 12/17/20 01/01/21 History 0.01%] Nuno-E 1000mg 1,000 mg PO DAILY 12/17/20 01/01/21 History Atorvastatin [Lipitor] 40 mg PO HS 12/27/20 01/01/21 History rOPINIRole HCL [Requip] 4 mg PO HS 12/27/20 01/01/21 History Cholestyramine (with Sugar) 4 gm PO BID@1000,1800 #30 packet 12/29/20 12/30/20 Rx [Questran Packet] atenoloL [Tenormin] 50 mg PO BID #60 tab 12/29/20 01/01/21 Rx Loperamide [Imodium] 2 mg PO TID PRN 12/30/20 01/01/21 History Psyllium Husk Powder 6 gm PO BID 12/30/20 01/01/21 History Allergies Allergy/AdvReac Type Severity Reaction Status Date / Time adhesive Allergy red skin, Verified 12/30/20 12:17 blisters cefaclor [From Ceclor] Allergy Rash/Hives Verified 12/30/20 12:17 ciprofloxacin [From Cipro] Allergy Rash/Hives Verified 12/30/20 12:17 ciprofloxacin HCl Allergy Rash/Hives Verified 12/30/20 12:17 [From Cipro] hydromorphone HCl Allergy Anaphylaxis Verified 12/30/20 12:17 [From Dilaudid] Penicillins Allergy Rash/Hives Verified 12/30/20 12:17 clindamycin AdvReac Nausea & Verified 12/30/20 12:17 Vomiting sulfamethoxazole AdvReac Abdominal Verified 12/30/20 12:17 [From Bactrim] Pain trimethoprim [From Bactrim] AdvReac Abdominal Verified 12/30/20 12:17 Pain Physical Exam Vitals: Vital Signs Temp Pulse Pulse Resp BP BP Pulse Ox 01/01/21 18:42 97.7 F 105 H 18 128/70 97 01/01/21 17:54 97.5 F L 110 H 18 116/75 96 01/01/21 17:06 97.6 F 110 H 18 106/65 95 01/01/21 17:02 116/75 01/01/21 12:30 98.7 F 107 H 16 125/81 98 Intake and Output 01/01/21 01/01/21 01/01/21 06:59 14:59 22:59 Intake Total 300 Balance 300 Intake: IV 300 Other: Weight 63.4 kg 63.4 kg Results Labs: Abnormal Lab Results - Last 24 Hours (Table) 01/01/21 01/01/21 Range/Units 12:28 20:31 POC Glucose (mg/dL) 170 H 190 H (75-99) mg/dL
[2021-01-01] MEDS: GABAPENTIN 300 MG CAP PO SCH (23:11)
[2021-01-01] MEDS: methocarbamoL 500 MG TAB PO SCH (23:11)
[2021-01-02 06:22] LABS: Glucose,Whole Blood 113 mg/dL (75-99)
[2021-01-02] MEDS: INSULIN ASPART (NovoLOG) 100 UNIT/ML VIAL SQ SCH ×4 (06:27→20:17)
[2021-01-02] MEDS: PANTOPRAZOLE 40 MG TABLET PO SCH (06:31)
[2021-01-02] MEDS: LEVOTHYROXINE 25 MCG TAB PO SCH (06:31)
[2021-01-02] MEDS: CLOPIDOGREL 75 MG TAB PO SCH (08:29)
[2021-01-02] MEDS: GABAPENTIN 300 MG CAP PO SCH ×2 (08:29→15:57)
[2021-01-02] MEDS: DULoxetine HCL 60 MG CAPSULE.DR PO SCH (08:29)
[2021-01-02] MEDS: CALCIUM CARB-VIT D 500 MG-5 MCG TAB PO SCH (08:29)
[2021-01-02] MEDS: ASPIRIN 81 MG PO SCH (08:29)
[2021-01-02] MEDS: allopurinoL 100 MG TAB PO SCH (08:29)
[2021-01-02] MEDS: CHOLESTYRAMINE (WITH SUGAR) 4 GM PACKET PO SCH ×3 (08:29→16:52)
[2021-01-02] MEDS: PSYLLIUM HUSK 100% 6 GM PACKET PO SCH ×2 (08:29→20:16)
[2021-01-02] MEDS: CHOLECALCIFEROL 25 MCG (1000 IU) TABLET PO SCH (08:29)
[2021-01-02] MEDS: IPRATROPIUM BROMIDE 0.06% NASAL SPRAY (15 ML) EA NOSTRIL SCH ×2 (08:30→20:16)
[2021-01-02] MEDS: methocarbamoL 500 MG TAB PO SCH ×2 (08:30→17:02)
[2021-01-02] MEDS: ACETAMINOPHEN TAB 500 MG TAB PO PRN ×2 (08:48→15:58)
[2021-01-02] MEDS ORDERED: NON FORMULARY DRUG (Biotin [Biotin] 5 MG Capsule) PO SCH (09:00)
[2021-01-02] MEDS ORDERED: S ADENOSYLMETHIONINE PO SCH (09:00)
[2021-01-02] MEDS ORDERED: NON FORMULARY DRUG (Alpha Lipoic Acid [Alpha Lipoic Acid] 600 MG Tablet) PO SCH (09:00)
[2021-01-02] MEDS ORDERED: atenoloL 50 MG TAB PO SCH (09:00)
[2021-01-02] MEDS ORDERED: APIXABAN 5 MG TAB PO SCH (09:00)
--- NOTE | 2021-01-02 09:57 | IR ---
EXAMINATION TYPE: IR stent intravas non coronary DATE OF EXAM: 01/01/2021 COMPARISON: NONE HISTORY: Fluoroscopy time. Fluoroscopy was provided to the referring clinician.
[2021-01-02] MEDS ORDERED: atenoloL 25 MG TAB PO STA (10:13)
[2021-01-02 10:43] LABS: Anisocytosis Slight; Basophils # (A) 0.1 k/uL (0-0.2); Basophils % (A) 1 %; Eosinophils % (A) 0 %; HCT 34.3 % (34.0-46.0); HGB 11.5 gm/dL (11.4-16.0); Hypochromasia Slight; Lymphocytes # (A) 0.6 k/uL (1.0-4.8); Lymphocytes % (A) 6 %; MCH 30.2 pg (25.0-35.0); MCHC 33.4 g/dL (31.0-37.0); MCV 90.4 fL (80.0-100.0); Mean Platelet Volume 7.2; Monocytes # (A) 1.4 k/uL (0-1.0); Monocytes % (A) 14 %; Neutrophils # (A) 7.6 k/uL (1.3-7.7); Neutrophils % (A) 77 %; Platelet Count 158 k/uL (150-450); RBC 3.79 m/uL (3.80-5.40); WBC 9.9 k/uL (3.8-10.6)
[2021-01-02 10:46] LABS: African American GFR (CKD) >90 (>60 ml/min/1.73 sqM); Anion Gap 10 mmol/L; Blood Urea Nitrogen 16 mg/dL (7-17); Calcium 9.1 mg/dL (8.4-10.2); Carbon Dioxide 23 mmol/L (22-30); Chloride 107 mmol/L (98-107); Glucose 175 mg/dL (74-99); Non-African American GFR(CKD) >90 (>60 ml/min/1.73 sqM); Potassium 3.8 mmol/L (3.5-5.1); Sodium 140 mmol/L (137-145)
--- NOTE | 2021-01-02 11:21 | MR ---
EXAMINATION TYPE: MR brain wo con DATE OF EXAM: 01/02/2021 COMPARISON: NONE HISTORY: r/o stroke. TECHNIQUE: T1-weighted sagittal, T2, FLAIR, and diffusion axial, and T2 coronal coronal views of the brain are submitted. FINDINGS: There multiple areas of abnormal signal on diffusion imaging the largest measuring 2.3 cm within the right cerebellar hemisphere. Additional subcentimeter areas of abnormal signal are seen primarily inv olving the cortex of the right occipital, bilateral parietal, and left frontal lobes. Mild generalized degenerative change and additional areas of nonspecific signal in the white matter a re most typical remote ischemic change. Orbits are symmetric. Changes of chronic sinusitis noted. There are changes of chronic mastoiditis. There is extensive fusion involving the cervical spine with severe degenerative disc disease C2-C3. C raniocervical junction maintained with the cerebellar tonsils at the level of the foramen magnum. IMPRESSION: 1. Multiple areas of abnormal signal involving the right cerebellum and bilateral cerebral hemisphere s suggestive of acute ischemia. Embolic disease in the differential diagnosis. Report called to the mikey mac's nurse 11:16 AM 01/02/2021.
[2021-01-02 11:39] LABS: Glucose,Whole Blood 180 mg/dL (75-99)
--- NOTE | 2021-01-02 12:19 | P.CRDCN ---
History of Present Illness Consult date: 01/02/21 History of present illness: HISTORY OF PRESENT ILLNESS: This is a 80-year-old female with a past medical history significant for diabetes mellitus, DVT and PE on antibiotics quite elation with Eliquis, hyperlipidemia, hypertension, TIA, and GERD. Patient states she had not previously seen a spice miller but she was evaluated by Dr. Pak while hospitalized on 12/28/2020. She was evaluated at that time for sinus tachycardia and patients atenolol was increased from 50mg daily to 50mg BID. We have been asked to see the patient in consultation for tachycardia. Patient examined at the bedside. Patient underwent balloon angioplasty of right brachiocephalic artery and right subclavian artery and stent placement to the radiocephalic artery yesterday with Dr. Mortensen. patient apparently began having weakness and a facial droop yesterday and neurology was consulted for possible CVA. The patient states she is having difficulty with gross motor movements of her right upper extremity. She reports weakness in her right leg which she states is chronic secondary to back issues. She denies any left-sided weakness. She denies any difficulties with her speech. Telemetry reviewed revealing sinus tachycardia with a heart rate in the low 100s . TSH drawn last week was within normal limits. Echocardiogram completed on 12/28/2020 revealed ejection fraction 55-60% with mild aortic stenosis. CT of the brain reveals cerebral atrophy. No acute intercranial abnormalities. MRI of the brain: Multiple areas of abnormal signal involving the right cerebellum and bilateral cerebral hemispheres suggestive of acute ischemia. Embolic disease in the differential diagnosis. Laboratory data: WBC 9.9. Hemoglobin 11.5. Platelet count 158. Sodium 140. Potassium 3.8. BUN 16. Creatinine 0.51. Current home cardiac medications include atorvastatin 40 mg daily, atenolol 50 mg twice a day, and Eliquis 5 mg twice a day REVIEW OF SYSTEMS: At the time of my exam: CONSTITUTIONAL: Denies fever or chills. HEENT: Denies blurred vision, vision changes, or eye pain. Denies hemoptysis CARDIOVASCULAR: Denies chest pain. Denies orthopnea. Denies PND. Denies palpitations RESPIRATORY: Denies shortness of breath. GASTROINTESTINAL: Denies abdominal pain. Denies nausea or vomiting. HEMATOLOGIC: Denies bleeding disorders. GENITOURINARY: Denies any blood in urine. SKIN: Denies pruitis. Denies rash. PHYSICAL EXAM: VITAL SIGNS: Reviewed. GENERAL: Well-developed in no acute distress. HEENT: Head is normocephalic. Pupils are equal, round. Sclerae anicteric. Mucous membranes of the mouth are moist. Neck supple. No JVD or thyromegaly LUNGS: Respirations even and unlabored. Lungs essentially clear to auscultation bilaterally. HEART: Regular rate and rhythm. S1 and S2 heard. Systolic murmur. ABDOMEN: Soft. Nondistended. Nontender. EXTREMITIES: Right-sided weakness noted. Patient with cyanosis of right fingertips, significantly improved per patient. No lower extremity edema NEUROLOGIC: Awake and alert. Oriented x 3. ASSESSMENT: Right brachiocephalic stenosis with occlusion, status post balloon angioplasty of right brachiocephalic artery and right subclavian artery and stent placement to the radiocephalic artery Acute CVA Sinus tachycardia, etiology unclear, TSH within normal limits, no atrial fibrillation noted Acute right upper extremity weakness Chronic right lower extremity weakness, secondary to back issues per patient History of PE/SVT on anticoagulation with Eliquis Hypertension Hyperlipidemia Mild aortic stenosis History of TIA PLAN: No need to repeat echocardiogram as this was performed last week Continue aspirin and plavix per vascular Continue telemetry monitoring Increase atenolol to 75 mg twice a day TSH recently checked and within normal limits Neurology following Further recommendations pending patient's course Nurse practitioner note has been reviewed by physician. Signing provider agrees with the documented findings, assessment, and plan of care. Past Medical History Past Medical History: Blood Disorder, Cancer, Diabetes Mellitus, Deep Vein Thrombosis (DVT), GERD/Reflux, Hyperlipidemia, Hypertension, Osteoarthritis (OA), Pulmonary Embolus (PE), Skin Disorder, Syncope, Thyroid Disorder Additional Past Medical History / Comment(s): TIA X2-no residual effects, VARICOSE VEINS, GOUT, non hodgkins LYMPHOMA (HX OF CHEMO & RADIATION 1977,1982 & 1993), hx migraines, hx ulcer, constipation, "red spots all over", states difficulty swallowing & having acid reflux., hammer toes. low back pain with and down rt leg-uses a walker, rt foot "drop foot", factor V leiden, poor circulation,soreness and edema rt arm- fingers turning blue with numbness, (states 75% of rt arm black and blue), History of Any Multi-Drug Resistant Organisms: None Reported Past Surgical History: Appendectomy, Back Surgery, Breast Surgery, Cholecystectomy, Hysterectomy, Joint Replacement, Orthopedic Surgery, Tonsillectomy Additional Past Surgical History / Comment(s): RIGHT HIP REPAIR, german KNEE REPLACEMENT, rods german thumbs and rt 3rd toe, BREAST & AXILLARY BX, TUMOR IN THROAT REMOVED., CERVICAL FUSION, LUMBAR LAMINECTOMY,DECOMPRESSION-FUSION L1- L2.,back surgery for nerve and tendons, german cataracts Past Anesthesia/Blood Transfusion Reactions: No Reported Reaction Additional Past Anesthesia/Blood Transfusion Reaction / Comment(s): CLAUSTROPHOBIA Past Psychological History: Anxiety, Depression Additional Psychological History / Comment(s): (end of 2019) Smoking Status: Never smoker Past Alcohol Use History: None Reported Additional Past Alcohol Use History / Comment(s): . Past Drug Use History: None Reported - Past Family History Father Family Medical History: Deep Vein Thrombosis (DVT), Pulmonary Embolus Additional Family Medical History / Comment(s): Father at age 32 from pulmonary embolism. Mother Family Medical History: Cancer Additional Family Medical History / Comment(s): breast Brother(s) Family Medical History: Cancer, Deep Vein Thrombosis (DVT) Additional Family Medical History / Comment(s): 2 brothers that have passed one from myocardial infarction and one from pulmonary embolism. 2 brothers are alive and one has lung cancer, one brother is alive with a brain aneurysm and CVA. Medications and Allergies Home Medications Medication Instructions Recorded Confirmed Type Calcium Carb-Vit D 500Mg-5Mcg 1 tab PO DAILY 01/05/14 01/01/21 History [Oscal 500+D 5 Mcg (200 Iu)] allopurinoL [Zyloprim] 100 mg PO DAILY 01/05/14 01/01/21 History Levothyroxine Sodium [Synthroid] 12.5 mcg PO DAILY 03/16/14 01/01/21 History Alpha Lipoic Acid 600 mg PO DAILY 07/03/20 01/01/21 History Gabapentin [Neurontin] 300 mg PO TID 07/03/20 01/01/21 History Ipratropium [place] 0.06%Nasal 2 spr EA NOSTRIL BID 07/03/20 01/01/21 History [Atrovent Nasal 0.06%] Biotin 10 mg PO DAILY 07/15/20 01/01/21 History HYDROcodone/APAP 10-325MG [[place] 1 tab PO BID PRN 07/15/20 01/01/21 History 10-325] Dexlansoprazole [Dexilant] 60 mg PO DAILY 08/07/20 01/01/21 History Empaglifloz/Linaglip/Metformin 1 tab PO DAILY 09/20/20 01/01/21 History [Trijardy Xr 25-5-1,000 mg Tab] Apixaban [Eliquis] 5 mg PO BID 10/06/20 12/30/20 History Temazepam [Restoril] 15 mg PO HS 10/06/20 01/01/21 History methocarbamoL [Robaxin] 500 mg PO TID 12/03/20 01/01/21 History rOPINIRole HCL [Requip] 2 mg PO BID@0800,1200 12/03/20 01/01/21 History Cholecalciferol [Vitamin D3 (25 25 mcg PO DAILY 12/17/20 01/01/21 History Mcg = 1000 Iu)] DULoxetine HCL [Cymbalta] 60 mg PO DAILY 12/17/20 01/01/21 History Estradiol Cream [Estrace Cream 1 gm VAGINAL SUTH 12/17/20 01/01/21 History 0.01%] Nuno-E 1000mg 1,000 mg PO DAILY 12/17/20 01/01/21 History Atorvastatin [Lipitor] 40 mg PO HS 12/27/20 01/01/21 History rOPINIRole HCL [Requip] 4 mg PO HS 12/27/20 01/01/21 History Cholestyramine (with Sugar) 4 gm PO BID@1000,1800 #30 packet 12/29/20 12/30/20 Rx [Questran Packet] atenoloL [Tenormin] 50 mg PO BID #60 tab 12/29/20 01/01/21 Rx Loperamide [Imodium] 2 mg PO TID PRN 12/30/20 01/01/21 History Psyllium Husk Powder 6 gm PO BID 12/30/20 01/01/21 History Allergies Allergy/AdvReac Type Severity Reaction Status Date / Time adhesive Allergy red skin, Verified 12/30/20 12:17 blisters cefaclor [From Ceclor] Allergy Rash/Hives Verified 12/30/20 12:17 ciprofloxacin [From Cipro] Allergy Rash/Hives Verified 12/30/20 12:17 ciprofloxacin HCl Allergy Rash/Hives Verified 12/30/20 12:17 [From Cipro] hydromorphone HCl Allergy Anaphylaxis Verified 12/30/20 12:17 [From Dilaudid] Penicillins Allergy Rash/Hives Verified 12/30/20 12:17 clindamycin AdvReac Nausea & Verified 12/30/20 12:17 Vomiting sulfamethoxazole AdvReac Abdominal Verified 12/30/20 12:17 [From Bactrim] Pain trimethoprim [From Bactrim] AdvReac Abdominal Verified 12/30/20 12:17 Pain Physical Exam Vitals: Vital Signs Temp Pulse Pulse Pulse Resp BP BP 01/02/21 07:37 98.0 F 102 H 16 144/83 01/02/21 03:38 98.2 F 102 H 16 120/72 01/02/21 00:00 98.4 F 106 H 18 117/76 01/01/21 20:00 98.1 F 100 16 125/75 01/01/21 18:42 97.7 F 105 H 18 128/70 01/01/21 17:54 97.5 F L 110 H 18 116/75 01/01/21 17:06 97.6 F 110 H 18 106/65 01/01/21 17:02 116/75 01/01/21 12:30 98.7 F 107 H 16 125/81 Pulse Ox 01/02/21 07:37 95 01/02/21 03:38 98 01/02/21 00:00 98 01/01/21 20:00 96 01/01/21 18:42 97 01/01/21 17:54 96 01/01/21 17:06 95 01/01/21 17:02 01/01/21 12:30 98 Intake and Output 01/01/21 01/02/21 01/02/21 22:59 06:59 14:59 Intake Total 370 Output Total 400 Balance -400 370 Intake: IV 10 Invasive Line 1 10 Oral 360 Output: Urine 400 Other: Voiding Method Bedpan # Voids 1 # Bowel Movements 1 Weight 63.4 kg 67.5 kg Results 01/02/21 10:02 01/02/21 10:02 CBC 01/02/21 Range/Units 10:02 WBC 9.9 (3.8-10.6) k/uL RBC 3.79 L (3.80-5.40) m/uL Hgb 11.5 (11.4-16.0) gm/dL Hct 34.3 (34.0-46.0) % Plt Count 158 (150-450) k/uL Comprehensive Metabolic Panel 01/02/21 Range/Units 10:02 Sodium 140 (137-145) mmol/L Potassium 3.8 (3.5-5.1) mmol/L Chloride 107 (98-107) mmol/L Carbon Dioxide 23 (22-30) mmol/L BUN 16 (7-17) mg/dL Creatinine 0.51 L (0.52-1.04) mg/dL Glucose 175 H (74-99) mg/dL Calcium 9.1 (8.4-10.2) mg/dL Current Medications Generic Name Dose Route Start Last Admin Trade Name Freq PRN Reason Stop Dose Admin Acetaminophen 500 mg 01/01/21 19:39 01/02/21 08:48 Acetaminophen Tab 500 Mg Tab PO 500 mg Q4HR PRN Administration Fever and/ or Mild Pain Hydrocodone Bitart/Acetaminophen 1 each 01/01/21 21:14 Hydrocodone/Apap 10-325mg 1 Each Tab PO BID PRN Pain Allopurinol 100 mg 01/02/21 09:00 01/02/21 08:29 Allopurinol 100 Mg Tab PO 100 mg DAILY SANTOS Administration Apixaban 5 mg 01/02/21 09:00 Apixaban 5 Mg Tab PO BID [facility] Protocol Aspirin 81 mg 01/02/21 09:00 01/02/21 08:29 Aspirin 81 Mg PO 81 mg DAILY SANTOS Administration Atenolol 75 mg 01/02/21 21:00 Atenolol 25 Mg Tab PO BID SANTOS Atorvastatin Calcium 40 mg 01/01/21 21:00 01/01/21 21:30 Atorvastatin 40 Mg Tab PO 40 mg HS SANTOS Administration Calcium Carbonate 1 each 01/02/21 09:00 01/02/21 08:29 Calcium Carb-Vit D 500 Mg-5 Mcg Tab PO 1 each DAILY SANTOS Administration Cholecalciferol 25 mcg 01/02/21 09:00 01/02/21 08:29 Cholecalciferol 25 Mcg (1000 Iu) Tablet PO 25 mcg DAILY SANTOS Administration Cholestyramine Resin 4 gm 01/02/21 10:00 01/02/21 08:29 Cholestyramine (With Sugar) 4 Gm Packet PO 4 gm BID@1000,1800 SANTOS Administration Clopidogrel Bisulfate 75 mg 01/02/21 09:00 01/02/21 08:29 Clopidogrel 75 Mg Tab PO 75 mg DAILY SANTOS Administration Duloxetine HCl 60 mg 01/02/21 09:00 01/02/21 08:29 Duloxetine Hcl 60 Mg Capsule.Dr PO 60 mg DAILY SANTOS Administration Estradiol 1 applic 01/02/21 21:00 Estradiol 0.1 Mg/Gm Vaginal Cream 42.5 Gm Tube VAGINAL SuTh@2100 SANTOS Gabapentin 300 mg 01/01/21 22:00 01/02/21 08:29 Gabapentin 300 Mg Cap PO 300 mg TID SANTOS Administration Insulin Aspart 0 unit 01/02/21 07:30 01/02/21 06:27 Insulin Aspart (Novolog) 100 Unit/Ml Vial SQ Not Given ACHS [facility] Protocol Ipratropium [place] 2 spray 01/02/21 09:00 01/02/21 08:30 Ipratropium [place] 0.06% Nasal [place] (15 Ml) EA NOSTRIL 2 spray BID SANTOS Administration Levothyroxine Sodium 12.5 mcg 01/02/21 06:30 01/02/21 06:31 Levothyroxine 25 Mcg Tab PO 12.5 mcg DAILY@0630 SANTOS Administration Loperamide HCl 2 mg 01/01/21 21:14 Loperamide 2 Mg Cap PO TID PRN Diarrhea Methocarbamol 500 mg 01/01/21 22:00 01/02/21 08:30 Methocarbamol 500 Mg Tab PO 500 mg TID SANTOS Administration Miscellaneous Information 1 each 01/01/21 17:56 Rx Info: Iv Contrast Was Given 1 Each Misc MISCELLANE 01/03/21 17:57 DAILY PRN Per Protocol Non-Formulary Medication 1 tab 01/02/21 09:00 01/02/21 08:30 Empaglifloz/Linaglip/Metformin [Trijardy Xr 25-5-1,000 Mg Tab] PO 1 tab DAILY SANTOS Administration Pantoprazole Sodium 60 mg 01/02/21 07:30 01/02/21 06:31 Pantoprazole 40 Mg Tablet PO 60 mg [id number] SANTOS Administration Psyllium Hydrophilic Mucilloid 6 gm 01/02/21 09:00 01/02/21 08:29 Psyllium Husk 100% 6 Gm Packet PO 6 gm BID SANTOS Administration Ropinirole HCl 2 mg 01/02/21 08:00 01/02/21 08:29 Ropinirole Hcl 1 Mg Tab PO 2 mg BID@0800,1200 SANTOS Administration Ropinirole HCl 4 mg 01/02/21 21:00 Ropinirole Hcl 4 Mg Tablet PO HS SANTOS Temazepam 15 mg 01/02/21 21:00 Temazepam 15 Mg Cap PO HS SANTOS Intake and Output 01/01/21 01/02/21 01/02/21 22:59 06:59 14:59 Intake Total 370 Output Total 400 Balance -400 370 Intake: IV 10 Invasive Line 1 10 Oral 360 Output: Urine 400 Other: Voiding Method Bedpan # Voids 1 # Bowel Movements 1 Weight 63.4 kg 67.5 kg 01/02/21 10:02 01/02/21 10:02
--- NOTE | 2021-01-02 12:37 | P.PN ---
Subjective Progress Note Date: 01/02/21 HISTORY OF PRESENT ILLNESS This is a 80-year-old female one of Dr. Rocha patient with past medical history of type 2 diabetes, non-Hodgkin's lymphoma [place] [address] Monaco and follows with Dr. Aranda status post chemotherapy and radiation therapy, TIA 5 years ago, hypertension, hyperlipidemia, hypertension, hypothyroidism, restless leg syndrome, recurrent depression, and osteoarthritis who has been treated for lower back pain post multiple lower back surgery and epidural injection with pain management at [facility], previous admission for acute GI bleed and acute blood loss anemia status post EGD and colonoscopy which revealed antral gastritis, area of ulceration, nonbleeding, in the distal transverse colon, pulmonary embolism and left lower leg DVT diagnosed 03/08/2020 on eliquis. She recently underwent revision T12-L2 fusion and decompression in in March 2020. Patient was seen recently with Dr. Mortensen for change in the color of her fingertip under Eliquis was increased from 2.5-5 mg twice a day as she omits the blood clot issue. Patient symptoms become much worse she was seen at her primary care physician who was concerned about blood clot in the subclavian area with a change consistent with possible acute thrombus see send her to the emergency department at [facility] where was seen and evaluated she was started on mild hydration she is in slight bit discomforted time patient will be hospitalized will be seen vascular and might need to go for angiogram to exclude any arterial thrombus. Patient at the time was diagnosed with recurrent UTI debility related to her back condition and the current thrombus. Patient was sent home last week and was scheduled to see Dr. Mortensen for possible thrombectomy and steal syndrome, patient ended up having right upper extremity angiogram with ultrasound guided right brachial artery axis for right brachiocephalic occlusion. Ended up having percutaneous transluminal balloon angioplasty of the right brachiocephalic artery with stent placement the same time. Patient developed to have stroke symptoms as soon as the sheath was pulled out with the blood pressure dropped down from 190-100 she developed to have lethargy, weakness, facial droop. Code stroke was called patient was transferred to the CT subsequently evaluated by neuro interventional who said this time no intervention needed she slowly did start resolving with her symptomatology all the major is negative patient was stable at the time. Patient was admitted to the floor under Dr. Mortensen's service requested medical consultation also requested neuro consult. Neuro exam every 2 hours will be done through the entire night. Her medication will be started at a debate whether to start her on anticoagulation or not as soon as tomorrow morning will be discussed with vascular. 01/02: MRI revealed abnormal signal involving the right cerebellum and bilateral cerebral hemispheres suggestive of acute ischemia. Embolic disease in the differential. Plavix started today as well as aspirin 81 mg daily, Lipitor 40 m g at bedtime. Eliquis has been discontinued. Neurology is on consult. Cardiology has increased atenolol 75 mg twice daily for tachycardia. She has been afebrile, heart rate 102, blood pressure 144/83, pulse ox 95% on room air. shelter monitor is sinus rhythm. Repeat blood work reveals WBC 9.9, hemoglobin 11.5, platelet count 158. Electrolytes are normal. BUN 16 and creatinine 0.51. Blood sugars are running between 113 and 190. The scope therapy has evaluated patient and recommended either home with homecare or inpatient rehab. Consult with Dr. Arshad will be added. REVIEW OF SYSTEMS Constitutional: No fever, no chills, no night sweats. No weight change. R eports weakness, reports fatigue denies lethargy. No daytime sleepiness. EENT: No headache. No blurred vision or double vision, no loss of vision. No loss of Hearing, no ringing in the ears, Reports dizziness. No nasal drainage or congestion. No epistaxis. No sore throat. Lungs: Denies shortness of breath, cough, no sputum production. No wheezing. Cardiovascular: No chest pain, no left lower extremity edema. No palpitations. No paroxysmal nocturnal dyspnea. No orthopnea. No lightheadedness or dizziness. No syncopal episodes. Abdominal: No abdominal pain. No nausea, vomiting. No diarrhea. No constipation. No bloody or tarry stools.. No loss of appetite. Genitourinary: No dysuria, increased frequency, urgency. No urinary retention. Reports incontinence, loss of bladder control Musculoskeletal: No myalgias. Reports muscle weakness, reports gait dysfunction, facial droop. Reports back pain. No neck pain. Integumentary: No wounds, no lesions. No rash or pruritus. No unusual bruising. Slight purple color of the fingertip with possibility of arterial thrombus. Neurologic: No aphasia. No facial droop. No change in mentation. No head injury. No headache. No paralysis. No paresthesia. Psychiatric: No depression. No anxiety. No mood swings. Endocrine: No abnormal blood sugars. PHYSICAL EXAMINATION Gen: This is A 80-year-old female. Patient is resting in bed appears to be comfortable and in no acute distress. No respiratory distress is noted. HEENT: Head is atraumatic, normocephalic. Pupils equal, round. Sclerae is ani cteric. NECK: Supple. No JVD. No lymphadenopathy. No thyromegaly. LUNGS: Clear to auscultation. No wheezes or rhonchi. No intercostal retractions. HEART: Regular rate and rhythm. No murmur. ABDOMEN: Soft. Bowel sounds are present. No masses. Mild right lower quadrant tenderness. BACK: Surgical wound is healed. No drainage, erythema. No deformity noted. EXTREMITIES: No pedal edema. No calf tenderness. Dorsalis pedis palpable bilaterally. Left foot drop, slight discoloration of the color of her fingertip especially the left side with slight discomfort as well. NEUROLOGICAL: Patient is awake, alert and oriented x3. Cranial nerves 2 through 12 are grossly intact. ASSESSMENT AND PLAN 1. New sign and symptom of stroke after an angiogram: Patient CT did not show any abnormality at this point patient does not show any sign of droopy face or weakness she still have generalized weakness of the lower extremity to be watch mostly. No sign of bleed and hopefully to keep her blood pressure under 150 anticoagulation be started as of yesterday tomorrow we'll consult neurology again. 2. 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 3. Recent UTI and sepsis: Was treated and done well so far. 4. History of pulmonary embolism. Patient is off eliquis. PE was diagnosed in February 2020. 5. Diabetes mellitus type 2. Recheck Hemoglobin A1c. Patient will be on NovoLog scale before meals and at bedtime. 6. Non-Hodgkin's lymphoma [place] [address] Monaco and follows with Dr. Aranda, in remission. 7. History of TIA with no deficits. 8. 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 Continue gabapentin 300 mg twice daily and 600 at bedtime. 9. Hypertension. Hold amlodipine 5 mg daily, continue atenolol increased to 75 mg twice daily. 10. Hypothyroidism. Continue levothyroxine 12.5 g daily. 11. Seasonal ALLERGIES. Continue Singulair 10 mg at bedtime. 12. Recurrent depression. Continue Prozac 30 mg daily. 13. Chronic gout. Continue allopurinol 100 mg daily. 14. Hyperlipidemia. Patient is not currently on statin. 15. Restless leg syndrome. Continue Requip. 16. GERD and GI prophylaxis. Protonix 17. Sinus tachycardia. Atenolol increased to 75 mg twice daily. COVID-19 testing: Patient was negative DISCHARGE PLAN TBD. Consult with Dr. Arshad. Impression and plan of care have been directed as dictated by the signing physician. Karen Quintero nurse practitioner acting as scribe for signing physician. Objective - Vital Signs Vital signs: Vital Signs Temp 98.0 F 01/02/21 07:37 Pulse 102 H 01/02/21 07:37 Resp 16 01/02/21 07:37 BP 144/83 01/02/21 07:37 Pulse Ox 95 01/02/21 07:37 Intake & Output 01/01/21 01/02/21 01/02/21 18:59 06:59 18:59 Intake Total 300 370 Output Total 400 Balance 300 -400 370 Weight 63.4 kg 67.5 kg Intake: IV 300 10 Invasive Line 1 10 Oral 360 Output: Urine 400 Other: Voiding Method Bedpan # Voids 1 # Bowel Movements 1 - Labs CBC & Chem 7: 01/02/21 10:02 01/02/21 10:02 Labs: Abnormal Lab Results - Last 24 Hours (Table) 01/01/21 01/01/21 01/02/21 Range/Units 12:28 20:31 06:21 POC Glucose (mg/dL) 170 H 190 H 113 H (75-99) mg/dL
--- NOTE | 2021-01-02 12:38 | P.CNNES ---
History of Present Illness Consult date: 01/02/21 Requesting physician: Claudia Cisneros Reason for Consult: code stroke History of Present Illness: This is a 80-year-old woman with medical history of type 2 diabetes, non- Hodgkin's lymphoma diagnosed in 1944 status post chemotherapy and radiation, hypertension, hyperlipidemia, hypothyroidism, chronic lower back pain getting epidural injection, pulmonary embolism and left lower leg DVT diagnosed on 2021 and is on Eliquis, T12 to L2 fusion and decompression in March 2020, subclavian steal syndrome who has been followed up with Dr. Mortensen and was found to have right brachiocephalic occlusion on ultrasound. The patient history is obtained form patient and her daughter (Luciana) who is at bedside. Yesterda y (01/01/2021) the patient had an elective percutaneous transluminal balloon angioplasty of the right brachiocephalic artery with stent placement. Of note the operative note post operative diagnoses were right brachiocephalic stenosis, microembolic disease of the right fingers. Right brachiocephalic occlusion. During the conclusion of procedure, after the sheath was pulled the patient developed weakness, right facial droop and lethargy. She had difficult time following commands. Her symptoms began around 1615 on 01/01/2021 per documentation. Patient was given Narcan due to the patient rate previously receiving fentanyl but no improvement. Also it is mentioned that the patient blood pressure was 190 and had to be given antihypertensive medication and body down to 120. Code stroke was activated. As a result stroke code was activated. Per the patient nurse the patient had NIH of a 15. CT of the head (at 16:20 on 01/01/21) is reported as cerebral atrophy. No acute intracranial abnormality. No change. CT angiography of the head and neck is reported as no evidence of hemodynamic stenosis in the brain and neck. No significant luminal narrowing. Atheromatous thoracic aorta. No aneurysm. It is documented that no tpa. No neurolgoical interventional per Dr. Moore. He recommended MRI Brain and considered for eliquis after MRI is complete. Per the patient's nurse her NIH has improved down to 5 today. Of note, the patient has been having change in color of her fingertips and was aching Eliquis which was increased from 2.5 to5 mg twice a day. But her symptoms worsened and it's reported that her primary at care physician was concerned about blood clots in the subclavian area. She has been off Eliquis for the past 3 days prior to this surgery. She does have history of TIA in the past which she had right facial droop and happened about 5 years ago. She denie d confirmed diagnosis of atrial fibrillation. She is not on antiplatelets at home. Some of the patient's home medication includes up was 5 mg 1 tablet twice a day as mentioned above. Others atenolol, Synthroid, Requip, Robaxin, Synthroid, biotin, Lipitor 40 mg daily at bedtime, gabapentin 300 Imodium 1 tablet 3 times a day, Cymbalta. Patient had MRI of the brain is reported as multiple area of abnormal signal involving the right cerebellum and a bilateral cerebral hemispheres suggestive of acute ischemia. Embolic disease is in the differential diagnosis. Nobody is mentioned is additional subcentimeter area of abnormal signal is seen primarily involving the cortex of the right occipital, bilateral parietal and left frontal lobe. Review of Systems Review of system: The 12 point system was reviewed and apparent positive and negative per HPI. Past Medical History Past Medical History: Blood Disorder, Cancer, Diabetes Mellitus, Deep Vein Thrombosis (DVT), GERD/Reflux, Hyperlipidemia, Hypertension, Osteoarthritis (OA), Pulmonary Embolus (PE), Skin Disorder, Syncope, Thyroid Disorder Additional Past Medical History / Comment(s): TIA X2-no residual effects, VARICOSE VEINS, GOUT, non hodgkins LYMPHOMA (HX OF CHEMO & RADIATION 1977,1982 & 1993), hx migraines, hx ulcer, constipation, "red spots all over", states difficulty swallowing & having acid reflux., hammer toes. low back pain with and down rt leg-uses a walker, rt foot "drop foot", factor V leiden, poor circul ation,soreness and edema rt arm- fingers turning blue with numbness, (states 75% of rt arm black and blue), History of Any Multi-Drug Resistant Organisms: None Reported Past Surgical History: Appendectomy, Back Surgery, Breast Surgery, Cholecystectomy, Hysterectomy, Joint Replacement, Orthopedic Surgery, Tonsillectomy Additional Past Surgical History / Comment(s): RIGHT HIP REPAIR, german KNEE REPLACEMENT, rods german thumbs and rt 3rd toe, BREAST & AXILLARY BX, TUMOR IN THROAT REMOVED., CERVICAL FUSION, LUMBAR LAMINECTOMY,DECOMPRESSION-FUSION L1- L2.,back surgery for nerve and tendons, german cataracts Past Anesthesia/Blood Transfusion Reactions: No Reported Reaction Additional Past Anesthesia/Blood Transfusion Reaction / Comment(s): CLAUSTROPHOBIA Past Psychological History: Anxiety, Depression Additional Psychological History / Comment(s): (end of 2019) Smoking Status: Never smoker Past Alcohol Use History: None Reported Additional Past Alcohol Use History / Comment(s): . Past Drug Use History: None Reported - Past Family History Father Family Medical History: Deep Vein Thrombosis (DVT), Pulmonary Embolus Additional Family Medical History / Comment(s): Father at age 32 from pulmonary embolism. Mother Family Medical History: Cancer Additional Family Medical History / Comment(s): breast Brother(s) Family Medical History: Cancer, Deep Vein Thrombosis (DVT) Additional Family Medical History / Comment(s): 2 brothers that have passed one from myocardial infarction and one from pulmonary embolism. 2 brothers are alive and one has lung cancer, one brother is alive with a brain aneurysm and CVA. Medications and Allergies Home Medications Medication Instructions Recorded Confirmed Type Calcium Carb-Vit D 500Mg-5Mcg 1 tab PO DAILY 01/05/14 01/01/21 History [Oscal 500+D 5 Mcg (200 Iu)] allopurinoL [Zyloprim] 100 mg PO DAILY 01/05/14 01/01/21 History Levothyroxine Sodium [Synthroid] 12.5 mcg PO DAILY 03/16/14 01/01/21 History Alpha Lipoic Acid 600 mg PO DAILY 07/03/20 01/01/21 History Gabapentin [Neurontin] 300 mg PO TID 07/03/20 01/01/21 History Ipratropium [place] 0.06%Nasal 2 spr EA NOSTRIL BID 07/03/20 01/01/21 History [Atrovent Nasal 0.06%] Biotin 10 mg PO DAILY 07/15/20 01/01/21 History HYDROcodone/APAP 10-325MG [[place] 1 tab PO BID PRN 07/15/20 01/01/21 History 10-325] Dexlansoprazole [Dexilant] 60 mg PO DAILY 08/07/20 01/01/21 History Empaglifloz/Linaglip/Metformin 1 tab PO DAILY 09/20/20 01/01/21 History [Trijardy Xr 25-5-1,000 mg Tab] Apixaban [Eliquis] 5 mg PO BID 10/06/20 12/30/20 History Temazepam [Restoril] 15 mg PO HS 10/06/20 01/01/21 History methocarbamoL [Robaxin] 500 mg PO TID 12/03/20 01/01/21 History rOPINIRole HCL [Requip] 2 mg PO BID@0800,1200 12/03/20 01/01/21 History Cholecalciferol [Vitamin D3 (25 25 mcg PO DAILY 12/17/20 01/01/21 History Mcg = 1000 Iu)] DULoxetine HCL [Cymbalta] 60 mg PO DAILY 12/17/20 01/01/21 History Estradiol Cream [Estrace Cream 1 gm VAGINAL SUTH 12/17/20 01/01/21 History 0.01%] Nuno-E 1000mg 1,000 mg PO DAILY 12/17/20 01/01/21 History Atorvastatin [Lipitor] 40 mg PO HS 12/27/20 01/01/21 History rOPINIRole HCL [Requip] 4 mg PO HS 12/27/20 01/01/21 History Cholestyramine (with Sugar) 4 gm PO BID@1000,1800 #30 packet 12/29/20 12/30/20 Rx [Questran Packet] atenoloL [Tenormin] 50 mg PO BID #60 tab 12/29/20 01/01/21 Rx Loperamide [Imodium] 2 mg PO TID PRN 12/30/20 01/01/21 History Psyllium Husk Powder 6 gm PO BID 12/30/20 01/01/21 History Allergies Allergy/AdvReac Type Severity Reaction Status Date / Time adhesive Allergy red skin, Verified 12/30/20 12:17 blisters cefaclor [From Ceclor] Allergy Rash/Hives Verified 12/30/20 12:17 ciprofloxacin [From Cipro] Allergy Rash/Hives Verified 12/30/20 12:17 ciprofloxacin HCl Allergy Rash/Hives Verified 12/30/20 12:17 [From Cipro] hydromorphone HCl Allergy Anaphylaxis Verified 12/30/20 12:17 [From Dilaudid] Penicillins Allergy Rash/Hives Verified 12/30/20 12:17 clindamycin AdvReac Nausea & Verified 12/30/20 12:17 Vomiting sulfamethoxazole AdvReac Abdominal Verified 12/30/20 12:17 [From Bactrim] Pain trimethoprim [From Bactrim] AdvReac Abdominal Verified 12/30/20 12:17 Pain Physical Examination - Vital Signs Vital Signs: Vital Signs Temp Pulse Pulse Pulse Resp BP BP 01/02/21 07:37 98.0 F 102 H 16 144/83 01/02/21 03:38 98.2 F 102 H 16 120/72 01/02/21 00:00 98.4 F 106 H 18 117/76 01/01/21 20:00 98.1 F 100 16 125/75 01/01/21 18:42 97.7 F 105 H 18 128/70 01/01/21 17:54 97.5 F L 110 H 18 116/75 01/01/21 17:06 97.6 F 110 H 18 106/65 01/01/21 17:02 116/75 01/01/21 12:30 98.7 F 107 H 16 125/81 Pulse Ox 01/02/21 07:37 95 01/02/21 03:38 98 01/02/21 00:00 98 01/01/21 20:00 96 01/01/21 18:42 97 01/01/21 17:54 96 01/01/21 17:06 95 01/01/21 17:02 01/01/21 12:30 98 Intake and Output 01/01/21 01/02/21 01/02/21 22:59 06:59 14:59 Intake Total 370 Output Total 400 Balance -400 370 Intake: IV 10 Invasive Line 1 10 Oral 360 Output: Urine 400 Other: Voiding Method Bedpan # Voids 1 # Bowel Movements 1 Weight 63.4 kg 67.5 kg GENERAL: The patient is lying in bed and is not in acute distress. CHEST: The heart rate is regular rate rhythm. No murmurs to auscultation. No carotid bruit bilaterally. LUNG: Clear to auscultation bilaterally no wheezing noted throughout. Not labored breathing. ABDOMEN/GI: Bowel sounds present in all 4 quadrants. No tenderness to palpation throughout. NEUROLOGICAL: Higher mental function: The patient is awake, alert, oriented to self, place and time. Patient is following commands. No aphasia and no neglect. Cranial nerves: The pupils are round, equal and reactive to light and accommodation. Visual trotter was somewhat hard to assess initially but after her focusing it appears full to confrontation throughout. Extraocular movement is intact no nystagmus is noted. Facial sensation is decreased to touch over the right side. The facial strength is flattening over the left. Hearing is mildly decreased bilaterally to hand rubs. Tongue is midline and moved side-to- side without any difficulty. No dysarthria is noted. Shoulder shrug is normal bilaterally. Motor: Gait is deferred. The strength is has left drift over the left upper extremity but otherwise strength is 4+ bilaterally and limited over the right upper extremity because of pain. Bilateral hand c++ quant developer are 5-. Bilateral lower extremities are at 5-/5 bilaterally.Normal tone and bulk. Cerebellum: Very slight dysmetria noted over on the right finger to nose. Sensation: Sensation is decreased to touch over the left lower extremity and decrease to touch over the right upper extremity. Reflexes (right/left): 2+ throughout. Plantars are downgoing bilaterally. Results Patient had a 2-D echo on 12/28/2020 inch reported as the ejection fraction of 55-60%. Moderate concentric above-described atrophy. Normal left atrial size. Moderate mitral annular calcification present. - Laboratory Findings CBC and BMP: 01/02/21 10:02 01/02/21 10:02 Abnormal Lab Findings: Abnormal Labs 01/01/21 01/01/21 01/02/21 12:28 20:31 06: RBC RDW Lymphocytes # Monocytes # Creatinine Glucose POC Glucose (mg/dL) 170 H 190 H 113 H 01/02/21 01/02/21 10:02 10:02 RBC 3.79 L RDW 18.0 H Lymphocytes # 0.6 L Monocytes # 1.4 H Creatinine 0.51 L Glucose 175 H POC Glucose (mg/dL) Assessment and Plan Assessment: * Acute ischemic stroke (over bilateral hemispheres, right cerebellar) due to embolic effect from current surgery. No IV tpa since recent surgery and no intervention. Initial NIH 15-->symptoms are improving (initialy had right facial droop, weakness, lethargy and reported expressive aphasia). * Right brachiocephalic stenosis/occlusion status post balloon angioplasy of right brachiocephalic artery and right subclavian artery with stent placement to radiocephalic artery on 01/01/2021 * History of Pulmonary Embolism and DVT (left lower extremity) on the Eliquis (was held for 3 days prior to surgery) * History of transient ischemic attack about 5 years ago with right facial droop * Type 2 diabetes * History of non-Hodgkin's lymphoma diagnosed 21 and 6 status post ch emoradiation therapy Hypertension * Hyperlipidemia * Hyperlipidemia * Hypothyroidism * T12 to L2 to fusion and decompression in March 2020 Plan: * Currently the patient is on aspirin 81 mg, Plavix 75 mg and was restarted Eliquis 5 mg 1 tablet twice a day. I highly recommended that Eliquis be stopped for at least 3 days since there is a risk of hemorrhagic conversion. If the vascular surgery team or primarty team feel the benefit outweight the risk then recommend heparin drip. Keep PTT between 45-60 and avoid boluses. * Continue Lipitor 40 mg daily at bedtime * Ordered limited 2-D echo with bubble study (last echo on 12/28/2020 report reviewed) and lipid panel. * TSH: 0.90 on 12/27/20 (normal) and no need to be repeated. * PT, OT and PALLET REPAIRER are consulted that. * We'll defer the rest of the medical management to the primary team and vascular surgery team. The plan is discussed with the patient, her daughter (Jennifer) who is at bedside and her nurse. Thank you for the consultation. Jesus Villarreal M.D. Neuro-hospitalist Time with Patient: Greater than 30
--- NOTE | 2021-01-02 13:18 | P.PN ---
Subjective Progress Note Date: 01/02/21 Principal diagnosis: right brachiocephalic stenosis, microembolic disease right fingers the patient was seen and examined lying up in bed eating breakfast. She is status post op day 1 for electiveright upper extremity angiogram with percutaneous transluminal balloon angioplasty right cephalic artery, right subclavian artery, and right radiocephalic artery. at the conclusion of the procedure after the sheath was pulled out patient, the patient was hypertensive during the procedure was given antihypertensives brain the patient's blood pressure from the 190s to the 120s and she began showing signs and symptoms of lethargy, weakness, and facial droop. A code stroke was activated and the patient was transported to CT and evaluated by neuro intereventionalistwho stated at that time there was no intervention needed, patient reportedly started resolving her symptoms and imaging was negative for acute infarct. The patient is seen and examined stating that she still has some right upper extremity weakness, difficulty to grasp onto objects, has some blurring of her vision, and some memory loss. Patient states she has chronic right lower extremity weakness due to back injury and surgery. She denies any difficulty with her speech, swallowing, shortness of breath, or chest pain. States she does have some improvement in her right upper extremity with the numbness and tingling and discomfort. neurology was consulted and MRI of the brain showed multiple areas of abnormal signal involving the right cerebellum and bilateral cerebral hemispheres suggestive of acute ischemia. Embolic disease in the differential diagnosis. Objective - Vital Signs Vital signs: Vital Signs Temp 98.0 F 01/02/21 07:37 Pulse 102 H 01/02/21 07:37 Resp 16 01/02/21 07:37 BP 144/83 01/02/21 07:37 Pulse Ox 95 01/02/21 07:37 Intake & Output 01/01/21 01/02/21 01/02/21 18:59 06:59 18:59 Intake Total 300 10 Output Total 400 Balance 300 -400 10 Weight 63.4 kg 67.5 kg Intake: IV 300 10 Invasive Line 1 10 Output: Urine 400 Other: Voiding Method Bedpan # Voids 1 # Bowel Movements 1 - Exam General appearance: The patient is alert, oriented, appears in no acute distress. HET: Head is normocephalic and atraumatic. Pupils are equal and reactive. Patient has facial symmetry, right upper eyelid and cheek have some swelling Neck: Supple without lymphadenopathy. Trachea midline. Heart: S1 S2. Regular rate and rhythm. Lungs: C.lear to auscultation Abdomen: Soft, nontender, nondistended. Extremities: Normal skin color and turgor. right upper extremity with full range of motion, right fingertips still with some purpling and color. Good capillary refill.Radial and pedal pulses are 2/4 bilaterally. Neurological: Speech is fluent, patient has facial symmetry. Sheright upper extremity weakness - Labs CBC & Chem 7: 01/02/21 10:02 01/02/21 10:02 Labs: Abnormal Lab Results - Last 24 Hours (Table) 01/01/21 01/01/21 01/02/21 Range/Units 12:28 20:31 06:21 POC Glucose (mg/dL) 170 H 190 H 113 H (75-99) mg/dL Assessment and Plan Assessment: 1. Post op day #1 right upper extremity angiogram, angioplasty right brachiocephalic artery, right subclavian artery, and right radiocephalic artery 2. Right brachiocephalic stenosis, microembolic disease right fingers 3. Acute ischemic stroke over bilateral hemispheres, right cerebellar 4. History of pulmonary embolism and DVT 5. History of TIA approximately 5 years ago 6. Type 2 diabetes 7. Hypertension and hyperlipidemia Plan: 1. Neurology consulted, appreciate their recommendations 2. Diet as tolerated 3. Cardiology on consult 4. MRI reviewed 5. Agree with aspirin, Plavix, and statin 6. Neurology recommending Eliquis be on hold for 3 days The impression and plan of care has been dictated as directed. Dr. Mortensen I performed a history and examination of this patient, discussed the same with the dictator. I agree with the dictator's note ,documented as a scribe. Any additional findings or plans will be noted.
[2021-01-02] MEDS: HYDROcodone/APAP 10-325MG 1 EACH TAB PO PRN (15:51)
[2021-01-02 16:33] LABS: Glucose,Whole Blood 246 mg/dL (75-99)
[2021-01-02 19:43] LABS: Glucose,Whole Blood 263 mg/dL (75-99)
[2021-01-02] MEDS: ESTRADIOL 0.1 MG/GM VAGINAL CREAM 42.5 GM TUBE VAGINAL SCH (20:16)
[2021-01-02] MEDS: atenoloL 25 MG TAB PO SCH (20:16)
[2021-01-02] MEDS: ATORVASTATIN 40 MG TAB PO SCH (20:16)
[2021-01-02] MEDS: TEMAZEPAM 15 MG CAP PO SCH (20:16)
[2021-01-02] MEDS ORDERED: ATORVASTATIN 40 MG TAB PO SCH (21:00)
[2021-01-03] MEDS: GABAPENTIN 300 MG CAP PO SCH ×4 (00:05→20:58)
[2021-01-03] MEDS: methocarbamoL 500 MG TAB PO SCH ×4 (00:05→21:00)
[2021-01-03] MEDS: rOPINIRole HCL 4 MG TABLET PO SCH ×2 (00:05→20:57)
[2021-01-03] MEDS: ACETAMINOPHEN TAB 500 MG TAB PO PRN (04:13)
--- NOTE | 2021-01-03 05:51 | P.CONS ---
History of Present Illness - Chief Complaint Gait disturbance - History of Present Illness I had the opportunity to see patient for inpatient rehab consultation with regard to gait disturbance. Patient admitted to [facility] January 01 for elective angioplasty and stent which performed by Dr. Mortensen. Patient suffered complication of a multiple strokes. Seen medically by Dr. Alarcon. Seen by neurology, Dr. Jesus Lizama who notes bilateral stroke cerebrum and right cerebellum and this was noted on brain MRI and this appeared to be acute. Seen by cardiology for tachycardia. Other workup includes head CT which demonstrated atrophy. Angiogram CT negative. Patient has started therapies. PT reports modified independent with bed mobility but minimal assistance for transfers and gait 5 feet with roller walker. OT reports minimal assistance for upper dressing, bathing and functional mobility/transfers and moderate assistance for lower dressing and toileting. Speech therapy notes mild aphasia. Swallow a ssessed and regular and thin. Previous functional history as elicited from patient: 80-year-old right-handed white female who lives and 2 floor home with daughter and son-in-law. Daughter does cooking, laundry, driving. Patient retired. Describes independent with sitdown shower and gait with [address] Rocha. Denies tobacco or alcohol. Family history mother with cancer. Father with DVT. Review of Systems Review of systems: ENT: Denies sneezes or discharge. Eyes: Denies discharge or photophobia. Cardiac: Denies chest pain or palpitation. Pulmonary: Denies cough or shortness of breath. Breast: Denies discharge or lumps. Gastrointestinal: Denies nausea, emesis, constipation, diarrhea. Genitourinary: Denies discharge or frequency. Musculoskeletal: Denies muscle or bone aches. Neurologic: Right-sided weakness. Endocrine: Denies shakes or sweats. Oncology: Denies cancers. Dermatologic: Denies rash, itching, pruritus. ALLERGY/immunology: Denies sneezes, rashes. Past Medical History Past Medical History: Blood Disorder, Cancer, Diabetes Mellitus, Deep Vein Thrombosis (DVT), GERD/Reflux, Hyperlipidemia, Hypertension, Osteoarthritis (OA), Pulmonary Embolus (PE), Skin Disorder, Syncope, Thyroid Disorder Additional Past Medical History / Comment(s): TIA X2-no residual effects, VARICOSE VEINS, GOUT, non hodgkins LYMPHOMA (HX OF CHEMO & RADIATION 1977,1982 & 1993), hx migraines, hx ulcer, constipation, "red spots all over", states difficulty swallowing & having acid reflux., hammer toes. low back pain with and down rt leg-uses a walker, rt foot "drop foot", factor V leiden, poor circulation,soreness and edema rt arm- fingers turning blue with numbness, (states 75% of rt arm black and blue), History of Any Multi-Drug Resistant Organisms: None Reported Past Surgical History: Appendectomy, Back Surgery, Breast Surgery, Cholecystectomy, Hysterectomy, Joint Replacement, Orthopedic Surgery, Tonsillectomy Additional Past Surgical History / Comment(s): RIGHT HIP REPAIR, german KNEE REPLACEMENT, rods german thumbs and rt 3rd toe, BREAST & AXILLARY BX, TUMOR IN THROAT REMOVED., CERVICAL FUSION, LUMBAR LAMINECTOMY,DECOMPRESSION-FUSION L1- L2.,back surgery for nerve and tendons, german cataracts Past Anesthesia/Blood Transfusion Reactions: No Reported Reaction Additional Past Anesthesia/Blood Transfusion Reaction / Comm: CLAUSTROPHOBIA Past Psychological History: Anxiety, Depression Additional Psychological History / Comment(s): (end of 2019) Smoking Status: Never smoker Past Alcohol Use History: None Reported Additional Past Alcohol Use History / Comment(s): . Past Drug Use History: None Reported - Past Family History Father Family Medical History: Deep Vein Thrombosis (DVT), Pulmonary Embolus Additional Family Medical History / Comment(s): Father at age 32 from pulmonary embolism. Mother Family Medical History: Cancer Additional Family Medical History / Comment(s): breast Brother(s) Family Medical History: Cancer, Deep Vein Thrombosis (DVT) Additional Family Medical History / Comment(s): 2 brothers that have passed one from myocardial infarction and one from pulmonary embolism. 2 brothers are alive and one has lung cancer, one brother is alive with a brain aneurysm and CVA. Medications and Allergies Home Medications Medication Instructions Recorded Confirmed Type Calcium Carb-Vit D 500Mg-5Mcg 1 tab PO DAILY 01/05/14 01/01/21 History [Oscal 500+D 5 Mcg (200 Iu)] allopurinoL [Zyloprim] 100 mg PO DAILY 01/05/14 01/01/21 History Levothyroxine Sodium [Synthroid] 12.5 mcg PO DAILY 03/16/14 01/01/21 History Alpha Lipoic Acid 600 mg PO DAILY 07/03/20 01/01/21 History Gabapentin [Neurontin] 300 mg PO TID 07/03/20 01/01/21 History Ipratropium [place] 0.06%Nasal 2 spr EA NOSTRIL BID 07/03/20 01/01/21 History [Atrovent Nasal 0.06%] Biotin 10 mg PO DAILY 07/15/20 01/01/21 History HYDROcodone/APAP 10-325MG [[place] 1 tab PO BID PRN 07/15/20 01/01/21 History 10-325] Dexlansoprazole [Dexilant] 60 mg PO DAILY 08/07/20 01/01/21 History Empaglifloz/Linaglip/Metformin 1 tab PO DAILY 09/20/20 01/01/21 History [Trijardy Xr 25-5-1,000 mg Tab] Apixaban [Eliquis] 5 mg PO BID 10/06/20 12/30/20 History Temazepam [Restoril] 15 mg PO HS 10/06/20 01/01/21 History methocarbamoL [Robaxin] 500 mg PO TID 12/03/20 01/01/21 History rOPINIRole HCL [Requip] 2 mg PO BID@0800,1200 12/03/20 01/01/21 History Cholecalciferol [Vitamin D3 (25 25 mcg PO DAILY 12/17/20 01/01/21 History Mcg = 1000 Iu)] DULoxetine HCL [Cymbalta] 60 mg PO DAILY 12/17/20 01/01/21 History Estradiol Cream [Estrace Cream 1 gm VAGINAL SUTH 12/17/20 01/01/21 History 0.01%] Nuno-E 1000mg 1,000 mg PO DAILY 12/17/20 01/01/21 History Atorvastatin [Lipitor] 40 mg PO HS 12/27/20 01/01/21 History rOPINIRole HCL [Requip] 4 mg PO HS 12/27/20 01/01/21 History Cholestyramine (with Sugar) 4 gm PO BID@1000,1800 #30 packet 12/29/20 12/30/20 Rx [Questran Packet] atenoloL [Tenormin] 50 mg PO BID #60 tab 12/29/20 01/01/21 Rx Loperamide [Imodium] 2 mg PO TID PRN 12/30/20 01/01/21 History Psyllium Husk Powder 6 gm PO BID 12/30/20 01/01/21 History Allergies Allergy/AdvReac Type Severity Reaction Status Date / Time adhesive Allergy red skin, Verified 12/30/20 12:17 blisters cefaclor [From Ceclor] Allergy Rash/Hives Verified 12/30/20 12:17 ciprofloxacin [From Cipro] Allergy Rash/Hives Verified 12/30/20 12:17 ciprofloxacin HCl Allergy Rash/Hives Verified 12/30/20 12:17 [From Cipro] hydromorphone HCl Allergy Anaphylaxis Verified 12/30/20 12:17 [From Dilaudid] Penicillins Allergy Rash/Hives Verified 12/30/20 12:17 clindamycin AdvReac Nausea & Verified 12/30/20 12:17 Vomiting sulfamethoxazole AdvReac Abdominal Verified 12/30/20 12:17 [From Bactrim] Pain trimethoprim [From Bactrim] AdvReac Abdominal Verified 12/30/20 12:17 Pain Physical Exam Vitals: Vital Signs Temp Pulse Pulse Resp BP Pulse Ox 01/03/21 03:57 98.4 F 100 17 133/68 98 01/03/21 00:00 98.4 F 102 H 18 130/79 98 01/02/21 20:18 98 F 105 H 18 121/73 96 01/02/21 16:00 98.3 F 96 16 91/59 92 L 01/02/21 12:10 97.6 F 100 16 121/73 99 01/02/21 07:37 98.0 F 102 H 16 144/83 95 Intake and Output 01/02/21 01/02/21 01/03/21 14:59 22:59 06:59 Intake Total 1340 240 Balance 1340 240 Intake: IV 20 Invasive Line 1 20 Oral 1320 240 Other: # Voids 1 2 Weight 65 kg Skin: Atrophic, intact. General: Medium build and comfortable appearance. Head: Normocephalic, atraumatic. Eyes: Symmetric. Pupils equal round. Ears: Symmetric. Hearing within normal limits. Mouth: Clear. Neck: Supple. Carotid without bruit. Cardiac: Regular rate and rhythm. Lungs: Clear anteriorly and posteriorly. Abdomen: Soft active nontender. Extremities: Normal tone. Neurological: Mental status: Alert, cooperative, pleasant. Cranial nerves: Symmetric facial tone and trapezius. Motor: Normal strength and isolation all 4 limbs. Mild weakness distally more so right side than left side. Sensation: Intact throughout. DTRs: Symmetric and equal throughout. Mobility: Did not attempt to sit or stand this early a.m. Results CBC & Chem 7: 01/02/21 10:02 01/02/21 10:02 Labs: Abnormal Lab Results - Last 24 Hours (Table) 01/02/21 01/02/21 01/02/21 Range/Units 06: 10:02 10:02 RBC 3.79 L (3.80-5.40) m/uL RDW 18.0 H (11.5-15.5) % Lymphocytes # 0.6 L (1.0-4.8) k/uL Monocytes # 1.4 H (0-1.0) k/uL Creatinine 0.51 L (0.52-1.04) mg/dL Glucose 175 H (74-99) mg/dL POC Glucose (mg/dL) 113 H (75-99) mg/dL Triglycerides (0.0-149.0) mg/dL VLDL Cholesterol, Calc (5.00-40.00) mg/dL HDL Cholesterol (40.0-60.0) mg/dL 01/02/21 01/02/21 01/02/21 Range/Units 10:02 11:37 16:31 RBC (3.80-5.40) m/uL RDW (11.5-15.5) % Lymphocytes # (1.0-4.8) k/uL Monocytes # (0-1.0) k/uL Creatinine (0.52-1.04) mg/dL Glucose (74-99) mg/dL POC Glucose (mg/dL) 180 H 246 H (75-99) mg/dL Triglycerides 255.0 H (0.0-149.0) mg/dL VLDL Cholesterol, Calc 51.00 H (5.00-40.00) mg/dL HDL Cholesterol 30.0 L (40.0-60.0) mg/dL 01/02/21 Range/Units 19:40 RBC (3.80-5.40) m/uL RDW (11.5-15.5) % Lymphocytes # (1.0-4.8) k/uL Monocytes # (0-1.0) k/uL Creatinine (0.52-1.04) mg/dL Glucose (74-99) mg/dL POC Glucose (mg/dL) 263 H (75-99) mg/dL Triglycerides (0.0-149.0) mg/dL VLDL Cholesterol, Calc (5.00-40.00) mg/dL HDL Cholesterol (40.0-60.0) mg/dL Assessment and Plan (1) Acute ischemic stroke Current Visit: Yes Status: Acute Code(s): I63.9 - CEREBRAL INFARCTION, UNSPECIFIED SNOMED Code(s): 751566298 Plan: Impression: 1. Gait disturbance due to bilateral stroke result in right greater than left hemiparesthesias. 2. Emphysema. 3. Coronary artery disease. 4. Hypertension. 5. Dyslipidemia. 6. Osteoarthritis. 7. Diabetes. 8. GERD. 9. Osteoarthritis. 10. Hypothyroid. 11. History of syncope and PE, DVT and cancer. 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 Safety concern noted as demonstrated ability to tolerate and benefit from therapies. Have discussed inpatient rehab with patient and she is agreeable. Transfer when medically appropriate.
[2021-01-03 06:12] LABS: Glucose,Whole Blood 146 mg/dL (75-99)
[2021-01-03] MEDS: PANTOPRAZOLE 40 MG TABLET PO SCH (06:22)
[2021-01-03] MEDS: LEVOTHYROXINE 25 MCG TAB PO SCH (06:22)
[2021-01-03] MEDS: INSULIN ASPART (NovoLOG) 100 UNIT/ML VIAL SQ SCH ×4 (06:22→20:58)
[2021-01-03] MEDS: PSYLLIUM HUSK 100% 6 GM PACKET PO SCH ×2 (08:55→20:58)
[2021-01-03] MEDS: CHOLESTYRAMINE (WITH SUGAR) 4 GM PACKET PO SCH ×2 (08:55→17:42)
[2021-01-03] MEDS: allopurinoL 100 MG TAB PO SCH (08:56)
[2021-01-03] MEDS: DULoxetine HCL 60 MG CAPSULE.DR PO SCH (08:56)
[2021-01-03] MEDS: atenoloL 25 MG TAB PO SCH ×2 (08:56→20:58)
[2021-01-03] MEDS: CALCIUM CARB-VIT D 500 MG-5 MCG TAB PO SCH (08:56)
[2021-01-03] MEDS: CHOLECALCIFEROL 25 MCG (1000 IU) TABLET PO SCH (08:56)
[2021-01-03] MEDS: CLOPIDOGREL 75 MG TAB PO SCH (08:56)
[2021-01-03] MEDS: ASPIRIN 81 MG PO SCH (08:57)
[2021-01-03] MEDS: IPRATROPIUM BROMIDE 0.06% NASAL SPRAY (15 ML) EA NOSTRIL SCH ×2 (09:00→21:01)
[2021-01-03] MEDS: HYDROcodone/APAP 10-325MG 1 EACH TAB PO PRN ×2 (11:11→20:59)
[2021-01-03 11:57] LABS: Glucose,Whole Blood 178 mg/dL (75-99)
--- NOTE | 2021-01-03 12:12 | P.PN ---
Subjective Progress Note Date: 01/03/21 HISTORY OF PRESENT ILLNESS: This is a 80-year-old female with a past medical history significant for diabetes mellitus, DVT and PE on antibiotics quite elation with Eliquis, hyperlipidemia, hypertension, TIA, and GERD. Patient states she had not previously seen a room clerk but she was evaluated by Dr. Pak while hospitalized on 12/28/2020. She was evaluated at that time for sinus tachycardia and patients atenolol was increased from 50mg daily to 50mg BID. We have been asked to see the patient in consultation for tachycardia. Patient examined at the bedside. Patient underwent balloon angioplasty of right brachiocephalic artery and right subclavian artery and stent placement to the radiocephalic artery yesterday with Dr. Mortensen. patient apparently began having weakness and a facial droop yesterday and neurology was consulted for possible CVA. The patient states she is having difficulty with gross motor movements of her right upper extremity. She reports weakness in her right leg which she states is chronic secondary to back issues. She denies any left-sided weakness. She denies any difficulties with her speech. Telemetry reviewed revealing sinus tachycardia with a heart rate in the low 100s. TSH drawn last week was within normal limits. Echocardiogram completed on 12/28/2020 revealed ejection fraction 55-60% with mild aortic stenosis. CT of the brain reveals cerebral atrophy. No acute intercranial abnormalities. MRI of the brain: Multiple areas of abnormal signal involving the right cerebellum and bilateral cerebral hemispheres suggestive of acute ischemia. Embolic disease in the differential diagnosis. Laboratory data: WBC 9.9. Hemoglobin 11.5. Platelet count 158. Sodium 140. Potassium 3.8. BUN 16. Creatinine 0.51. Current home cardiac medications include atorvastatin 40 mg daily, atenolol 50 mg twice a day, and Eliquis 5 mg twice a day 01/03/2021 Patient examined this morning at the bedside. Patient continues to have weakness of her right upper extremity. She denies chest pain or pressure. She denies short of breath. Telemetry reveals sinus mechanism with heart rate near 100. Patient's atenolol was increased yesterday. PHYSICAL EXAM: VITAL SIGNS: Reviewed. GENERAL: Well-developed in no acute distress. HEENT: Head is normocephalic. Pupils are equal, round. Sclerae anicteric. Mucous membranes of the mouth are moist. Neck supple. No JVD or thyromegaly LUNGS: Respirations even and unlabored. Lungs essentially clear to auscultation bilaterally. HEART: Regular rate and rhythm. S1 and S2 heard. Systolic murmur. ABDOMEN: Soft. Nondistended. Nontender. EXTREMITIES: Right-sided weakness noted. Patient with cyanosis of right fingertips, significantly improved per patient. No lower extremity edema NEUROLOGIC: Awake and alert. Oriented x 3. ASSESSMENT: Right brachiocephalic stenosis with occlusion, status post balloon angioplasty of right brachiocephalic artery and right subclavian artery and stent placement to the radiocephalic artery Acute CVA Sinus tachycardia, etiology unclear, TSH within normal limits, no atrial fibrillation noted Acute right upper extremity weakness Chronic right lower extremity weakness, secondary to back issues per patient History of PE/SVT on anticoagulation with Eliquis Hypertension Hyperlipidemia Mild aortic stenosis History of TIA PLAN: No need to repeat echocardiogram as this was performed last week Continue aspirin and plavix per vascular. Resume Eliquis when okay with neurology. Continue telemetry monitoring Continue current dose of atenolol. May increase to 100mg BID if needed TSH recently checked and within normal limits Neurology following We will sign off. Please reconsult if needed Nurse practitioner note has been reviewed by physician. Signing provider agrees with the documented findings, assessment, and plan of care. Objective - Vital Signs Vital signs: Vital Signs Temp 98 F 01/03/21 08:00 Pulse 100 01/03/21 11:20 Resp 16 01/03/21 11:20 BP 125/73 01/03/21 11:20 Pulse Ox 98 01/03/21 11:20 Intake & Output 01/02/21 01/03/21 01/03/21 18:59 06:59 18:59 Intake Total 1580 240 Balance 1580 240 Weight 65 kg Intake: IV 20 Invasive Line 1 20 Oral 1560 240 Other: Voiding Method Bedpan # Voids 1 2 - Labs CBC & Chem 7: 01/02/21 10:02 01/02/21 10:02 Labs: Abnormal Lab Results - Last 24 Hours (Table) 01/02/21 01/02/21 01/02/21 Range/Units 10:02 16:31 19:40 POC Glucose (mg/dL) 246 H 263 H (75-99) mg/dL Triglycerides 255.0 H (0.0-149.0) mg/dL VLDL Cholesterol, Calc 51.00 H (5.00-40.00) mg/dL HDL Cholesterol 30.0 L (40.0-60.0) mg/dL 01/03/21 01/03/21 Range/Units 06:10 11:56 POC Glucose (mg/dL) 146 H 178 H (75-99) mg/dL Triglycerides (0.0-149.0) mg/dL VLDL Cholesterol, Calc (5.00-40.00) mg/dL HDL Cholesterol (40.0-60.0) mg/dL
--- NOTE | 2021-01-03 13:49 | P.PN ---
Subjective Progress Note Date: 01/03/21 HISTORY OF PRESENT ILLNESS This is a 80-year-old female one of Dr. Rocha patient with past medical history of type 2 diabetes, non-Hodgkin's lymphoma [place] [address] Monaco and follows with Dr. Aranda status post chemotherapy and radiation therapy, TIA 5 years ago, hypertension, hyperlipidemia, hypertension, hypothyroidism, restless leg syndrome, recurrent depression, and osteoarthritis who has been treated for lower back pain post multiple lower back surgery and epidural injection with pain management at [facility], previous admission for acute GI bleed and acute blood loss anemia status post EGD and colonoscopy which revealed antral gastritis, area of ulceration, nonbleeding, in the distal transverse colon, pulmonary embolism and left lower leg DVT diagnosed 03/08/2020 on eliquis. She recently underwent revision T12-L2 fusion and decompression in in March 2020. Patient was seen recently with Dr. Mortensen for change in the color of her fingertip under Eliquis was increased from 2.5-5 mg twice a day as she omits the blood clot issue. Patient symptoms become much worse she was seen at her primary care physician who was concerned about blood clot in the subclavian area with a change consistent with possible acute thrombus see send her to the emergency department at [facility] where was seen and evaluated she was started on mild hydration she is in slight bit discomforted time patient will be hospitalized will be seen vascular and might need to go for angiogram to exclude any arterial thrombus. Patient at the time was diagnosed with recurrent UTI debility related to her back condition and the current thrombus. Patient was sent home last week and was scheduled to see Dr. Mortensen for possible thrombectomy and steal syndrome, patient ended up having right upper extremity angiogram with ultrasound guided right brachial artery axis for right brachiocephalic occlusion. Ended up having percutaneous transluminal balloon angioplasty of the right brachiocephalic artery with stent placement the same time. Patient developed to have stroke symptoms as soon as the sheath was pulled out with the blood pressure dropped down from 190-100 she developed to have lethargy, weakness, facial droop. Code stroke was called patient was transferred to the CT subsequently evaluated by neuro interventional who said this time no intervention needed she slowly did start resolving with her symptomatology all the major is negative patient was stable at the time. Patient was admitted to the floor under Dr. Mortensen's service requested medical consultation also requested neuro consult. Neuro exam every 2 hours will be done through the entire night. Her medication will be started at a debate whether to start her on anticoagulation or not as soon as tomorrow morning will be discussed with vascular. 01/02: MRI revealed abnormal signal involving the right cerebellum and bilateral cerebral hemispheres suggestive of acute ischemia. Embolic disease in the differential. Plavix started today as well as aspirin 81 mg daily, Lipitor 40 mg at bedtime. Eliquis has been discontinued. Neurology is on consult. Cardiology has increased atenolol 75 mg twice daily for tachycardia. She has been afebrile, heart rate 102, blood pressure 144/83, pulse ox 95% on room air. 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 Repeat blood work reveals WBC 9.9, hemoglobin 11.5, platelet count 158. Electrolytes are normal. BUN 16 and creatinine 0.51. Blood sugars are running between 113 and 190. The scope therapy has evaluated patient and recommended either home with homecare or inpatient rehab. Consult with Dr. Arshad will be added. 01/03: Patient is doing slightly better MRI showed significant finding of acute embolic thrombus with no sign of bleeding. Plavix was started at the time. Now the talk whether to continue or discontinue Eliquis and there is a clear evidence of benefit been on Eliquis specially with previous history of A. fib along with history of pulmonary embolism, discussion with neurology today and agree if waiting 3 days in off Eliquis resume Eliquis around Wednesday while patient remain on Plavix and baby aspirin as a best next option. Patient in the meanwhile continue doing PTOT and potential going for inpatient rehab at this point. REVIEW OF SYSTEMS Constitutional: No fever, no chills, no night sweats. No weight change. Reports weakness, reports fatigue denies lethargy. No daytime sleepiness. EENT: No headache. No blurred vision or double vision, no loss of vision. No loss of Hearing, no ringing in the ears, Reports dizziness. No nasal drainage or congestion. No epistaxis. No sore throat. Lungs: Denies shortness of breath, cough, no sputum production. No wheezing. Cardiovascular: No chest pain, no left lower extremity edema. No palpitations. No paroxysmal nocturnal dyspnea. No orthopnea. No lightheadedness or dizziness. No syncopal episodes. Abdominal: No abdominal pain. No nausea, vomiting. No diarrhea. No constipation. No bloody or tarry stools.. No loss of appetite. Genitourinary: No dysuria, increased frequency, urgency. No urinary retention. Reports incontinence, loss of bladder control Musculoskeletal: No myalgias. Reports muscle weakness, reports gait dysfunction, facial droop. Reports back pain. No neck pain. Integumentary: No wounds, no lesions. No rash or pruritus. No unusual bruising. Slight purple color of the fingertip with possibility of arterial thrombus. Neurologic: No aphasia. No facial droop. No change in mentation. No head injury. No headache. No paralysis. No paresthesia. Psychiatric: No depression. No anxiety. No mood swings. Endocrine: No abnormal blood sugars. PHYSICAL EXAMINATION Gen: This is A 80-year-old female. Patient is resting in bed appears to be comfortable and in no acute distress. No respiratory distress is noted. HEENT: Head is atraumatic, normocephalic. Pupils equal, round. Sclerae is anicteric. NECK: Supple. No JVD. No lymphadenopathy. No thyromegaly. LUNGS: Clear to auscultation. No wheezes or rhonchi. No intercostal retractions. HEART: Regular rate and rhythm. No murmur. ABDOMEN: Soft. Bowel sounds are present. No masses. Mild right lower quadrant tenderness. BACK: Surgical wound is healed. No drainage, erythema. No deformity noted. EXTREMITIES: No pedal edema. No calf tenderness. Dorsalis pedis palpable bilaterally. Left foot drop, slight discoloration of the color of her fingertip especially the left side with slight discomfort as well. NEUROLOGICAL: Patient is awake, alert and oriented x3. Cranial nerves 2 through 12 are grossly intact. ASSESSMENT AND PLAN 1. New sign and symptom of stroke after an angiogram: Still seen neurology, improve on droopy face and no right sided weakness at this point. Patient will need to go back on Eliquis on Wednesday the meanwhile remain on Plavix as an anticoagulation along with baby aspirin the long-term. 2. 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 3. Recent UTI and sepsis: Was treated and done well so far. 4. History of pulmonary embolism. Patient is off eliquis. PE was diagnosed in February 2020. 5. Diabetes mellitus type 2. Recheck Hemoglobin A1c. Patient will be on NovoLog scale before meals and at bedtime. 6. Non-Hodgkin's lymphoma [place] [address] Monaco and follows with Dr. Aranda, in remission. 7. History of TIA with no deficits. 8. 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 Continue gabapentin 300 mg twice daily and 600 at bedtime. 9. Hypertension. Hold amlodipine 5 mg daily, continue atenolol increased to 75 mg twice daily. Resume amlodipine if blood pressure systolic is above 140. 10. Hypothyroidism. Continue levothyroxine 12.5 g daily. 11. Seasonal ALLERGIES. Continue Singulair 10 mg at bedtime. 12. Recurrent depression. Continue Prozac 30 mg daily. 13. Chronic gout. Continue allopurinol 100 mg daily. 14. Hyperlipidemia. Patient is not currently on statin. 15. Restless leg syndrome. Continue Requip. 16. GERD and GI prophylaxis. Protonix 17. Sinus tachycardia with a? Of A. fib in the past. Atenolol increased to 75 mg twice daily. COVID-19 testing: Patient was negative DISCHARGE PLAN Possible inpatient rehab on Wednesday. Objective - Vital Signs Vital signs: Vital Signs Temp 98 F 01/03/21 08:00 Pulse 100 01/03/21 08:00 Resp 16 01/03/21 08:00 BP 111/68 01/03/21 08:00 Pulse Ox 98 01/03/21 08:00 Intake & Output 01/02/21 01/03/21 01/03/21 18:59 06:59 18:59 Intake Total 1580 240 Balance 1580 240 Weight 65 kg Intake: IV 20 Invasive Line 1 20 Oral 1560 240 Other: Voiding Method Bedpan # Voids 1 2 - Labs CBC & Chem 7: 01/02/21 10:02 01/02/21 10:02 Labs: Abnormal Lab Results - Last 24 Hours (Table) 01/02/21 01/02/21 01/02/21 Range/Units 10:02 11:37 16:31 POC Glucose (mg/dL) 180 H 246 H (75-99) mg/dL Triglycerides 255.0 H (0.0-149.0) mg/dL VLDL Cholesterol, Calc 51.00 H (5.00-40.00) mg/dL HDL Cholesterol 30.0 L (40.0-60.0) mg/dL 01/02/21 01/03/21 Range/Units 19:40 06:10 POC Glucose (mg/dL) 263 H 146 H (75-99) mg/dL Triglycerides (0.0-149.0) mg/dL VLDL Cholesterol, Calc (5.00-40.00) mg/dL HDL Cholesterol (40.0-60.0) mg/dL
--- NOTE | 2021-01-03 14:21 | P.PN ---
<Blayne,Renee - Last Filed: 01/03/21 14:15> Subjective Progress Note Date: 01/03/21 Principal diagnosis: right brachiocephalic stenosis, microembolic disease right fingers The patient patient is seen and examined sitting up in bed. She had no acute changes through the night. She states that she still having some blurry vision, some right upper extremity weakness, mostly with fine motor skills and grasping. She states her pain, numbness, and tingling to her right upper extremity and hand is improved since surgery. He does still have some discomfort in that right upper extremity and bruising. Objective - Vital Signs Vital signs: Vital Signs Temp 98.4 F 01/03/21 03:57 Pulse 100 01/03/21 03:57 Resp 17 01/03/21 03:57 BP 133/68 01/03/21 03:57 Pulse Ox 98 01/03/21 03:57 Intake & Output 01/02/21 01/03/21 01/03/21 18:59 06:59 18:59 Intake Total 1580 Balance 1580 Weight 65 kg Intake: IV 20 Invasive Line 1 20 Oral 1560 Other: # Voids 1 2 - Exam General appearance: The patient is alert, oriented, appears in no acute distress. HET: Head is normocephalic and atraumatic. Pupils are equal and reactive. Patient has facial symmetry, right upper eye lid closed, but can open on command. Neck: Supple without lymphadenopathy. Trachea midline. Heart: S1 S2. Regular rate and rhythm. Lungs: C.lear to auscultation Abdomen: Soft, nontender, nondistended. Extremities: Normal skin color and turgor. right upper extremity with full range of motion, right fingertips still with some purpling and color, ecchymosis. Good capillary refill. Radial and pedal pulses are 2/4 bilaterally. Neurological: Speech is fluent, patient has facial symmetry. Right upper extremity weakness - Labs CBC & Chem 7: 01/02/21 10:02 01/02/21 10:02 Labs: Abnormal Lab Results - Last 24 Hours (Table) 01/02/21 01/02/21 01/02/21 Range/Units 10:02 10:02 10:02 RBC 3.79 L (3.80-5.40) m/uL RDW 18.0 H (11.5-15.5) % Lymphocytes # 0.6 L (1.0-4.8) k/uL Monocytes # 1.4 H (0-1.0) k/uL Creatinine 0.51 L (0.52-1.04) mg/dL Glucose 175 H (74-99) mg/dL POC Glucose (mg/dL) (75-99) mg/dL Triglycerides 255.0 H (0.0-149.0) mg/dL VLDL Cholesterol, Calc 51.00 H (5.00-40.00) mg/dL HDL Cholesterol 30.0 L (40.0-60.0) mg/dL 01/02/21 01/02/21 01/02/21 Range/Units 11:37 16:31 19:40 RBC (3.80-5.40) m/uL RDW (11.5-15.5) % Lymphocytes # (1.0-4.8) k/uL Monocytes # (0-1.0) k/uL Creatinine (0.52-1.04) mg/dL Glucose (74-99) mg/dL POC Glucose (mg/dL) 180 H 246 H 263 H (75-99) mg/dL Triglycerides (0.0-149.0) mg/dL VLDL Cholesterol, Calc (5.00-40.00) mg/dL HDL Cholesterol (40.0-60.0) mg/dL 01/03/21 Range/Units 06:10 RBC (3.80-5.40) m/uL RDW (11.5-15.5) % Lymphocytes # (1.0-4.8) k/uL Monocytes # (0-1.0) k/uL Creatinine (0.52-1.04) mg/dL Glucose (74-99) mg/dL POC Glucose (mg/dL) 146 H (75-99) mg/dL Triglycerides (0.0-149.0) mg/dL VLDL Cholesterol, Calc (5.00-40.00) mg/dL HDL Cholesterol (40.0-60.0) mg/dL Assessment and Plan Assessment: 1. Post op day #2 right upper extremity angiogram, angioplasty right brachioce phalic artery, right subclavian artery, and right radiocephalic artery 2. Right brachiocephalic stenosis, microembolic disease right fingers 3. Acute ischemic stroke over bilateral hemispheres, right cerebellar 4. History of pulmonary embolism and DVT 5. History of TIA approximately 5 years ago 6. Type 2 diabetes 7. Hypertension and hyperlipidemia Plan: 1. Neurology consulted, appreciate their recommendations 2. Diet as tolerated 3. Cardiology on consult 4. MRI reviewed 5. Defer antiplatelet/anticoagulation therapy to neurology. From a vascular surgical standpoint would only recommend dual agents. 6. Continue medical management The impression and plan of care has been dictated as directed. Dr. Silva I performed a history and examination of this patient, discussed the same with the dictator. I agree with the dictator's note ,documented as a scribe. Any additional findings or plans will be noted. <Venessa Mortensen - Last Filed: 01/03/21 17:24> Objective - Vital Signs Vital signs: Vital Signs Temp 98 F 01/03/21 08:00 Pulse 100 01/03/21 11:20 Resp 16 01/03/21 16:00 BP 125/73 01/03/21 11:20 Pulse Ox 98 01/03/21 16:00 Intake & Output 01/02/21 01/03/21 01/03/21 18:59 06:59 18:59 Intake Total 1580 360 Balance 1580 360 Weight 65 kg Intake: IV 20 Invasive Line 1 20 Oral 1560 360 Other: Voiding Method Bedpan # Voids 1 2 2 # Bowel Movements 1 - Labs CBC & Chem 7: 01/02/21 10:02 01/02/21 10:02 Labs: Abnormal Lab Results - Last 24 Hours (Table) 01/02/21 01/02/21 01/03/21 Range/Units 10:02 19:40 06:10 POC Glucose (mg/dL) 263 H 146 H (75-99) mg/dL Triglycerides 255.0 H (0.0-149.0) mg/dL VLDL Cholesterol, Calc 51.00 H (5.00-40.00) mg/dL HDL Cholesterol 30.0 L (40.0-60.0) mg/dL 01/03/21 01/03/21 Range/Units 11:56 16:41 POC Glucose (mg/dL) 178 H 142 H (75-99) mg/dL Triglycerides (0.0-149.0) mg/dL VLDL Cholesterol, Calc (5.00-40.00) mg/dL HDL Cholesterol (40.0-60.0) mg/dL
--- NOTE | 2021-01-03 16:35 | P.PN ---
Subjective Progress Note Date: 01/03/21 The patient was seen at bedside and she stated that the she somewhat slightly better today compared to yesterday but not back to baseline. Per family members they noticed that she spilled her drink in the morning today but otherwise doing better today compared to initial presentation. Objective - Vital Signs Vital signs: Vital Signs Temp 98 F 01/03/21 08:00 Pulse 100 01/03/21 11:20 Resp 16 01/03/21 16:00 BP 125/73 01/03/21 11:20 Pulse Ox 98 01/03/21 16:00 Intake & Output 01/02/21 01/03/21 01/03/21 18:59 06:59 18:59 Intake Total 1580 240 Balance 1580 240 Weight 65 kg Intake: IV 20 Invasive Line 1 20 Oral 1560 240 Other: Voiding Method Bedpan # Voids 1 2 - Exam GENERAL: The patient is lying in bed and is not in acute distress. NEUROLOGICAL: Higher mental function: The patient is awake, alert, oriented to self, place and time. Patient is following commands. No aphasia and no neglect. Cranial nerves: The pupils are round, equal and reactive to light and accommodation. Visual trotter full to confrontation throughout. Extraocular movement is intact no nystagmus is noted. Facial sensation is decreased to touch over left side. The facial strength is flattening over the left. Hearing is mildly decreased bilaterally to hand rubs. Tongue is midline and moved [id number] without any difficulty. No dysarthria is noted. Shoulder shrug is normal bilaterally. Motor: Gait is deferred. The strength is has left drift over the left upper extremity. Left upper extremity is 4 while right side is 4+ to 5-. Bilateral hand voip network engineer are 4+. Bilateral lower extremities are 4+ tp 5-/5 bilaterally.Normal tone and bulk. Cerebellum: Very slight dysmetria noted over on the right finger to nose. Sensation: Sensation is decreased to touch over the left side. Reflexes (right/left): 2+ throughout. Plantars are downgoing bilaterally. - Labs CBC & Chem 7: 01/02/21 10:02 01/02/21 10:02 Labs: Abnormal Lab Results - Last 24 Hours (Table) 01/02/21 01/02/21 01/02/21 Range/Units 10:02 16:31 19:40 POC Glucose (mg/dL) 246 H 263 H (75-99) mg/dL Triglycerides 255.0 H (0.0-149.0) mg/dL VLDL Cholesterol, Calc 51.00 H (5.00-40.00) mg/dL HDL Cholesterol 30.0 L (40.0-60.0) mg/dL 01/03/21 01/03/21 Range/Units 06:10 11:56 POC Glucose (mg/dL) 146 H 178 H (75-99) mg/dL Triglycerides (0.0-149.0) mg/dL VLDL Cholesterol, Calc (5.00-40.00) mg/dL HDL Cholesterol (40.0-60.0) mg/dL Assessment and Plan Assessment: * Acute ischemic stroke (over bilateral hemispheres, right cerebellar) seems due to embolic effect from current surgery. ?Afib (per primary she had Afib in past). No IV tpa since recent surgery and no intervention. Initial NIH 15-->symptoms are improving. * Right brachiocephalic stenosis/occlusion status post balloon angioplasy of right brachiocephalic artery and right subclavian artery with stent placement to radiocephalic artery on 01/01/2021 * History of Pulmonary Embolism and DVT (left lower extremity) on the Eliquis (was held for 3 days prior to surgery) * History of transient ischemic attack about 5 years ago with right facial droop * Sinus tachycardia ?afib (had Afib in the past) per primary team. But cardiology team no signs of A-fib. * Type 2 diabetes * History of non-Hodgkin's lymphoma diagnosed 21 and 4 status post chemoradiation therapy Hypertension * Hyperlipidemia * Hyperlipidemia * Hypothyroidism * T12 to L2 to fusion and decompression in March 2020 Plan: * MRI of the brain is reported as multiple area of abnormal signal involving the right cerebellum and a bilateral cerebral hemispheres suggestive of acute ischemia. Embolic disease is in the differential diagnosis. Nobody is mentioned is additional subcentimeter area of abnormal signal is seen pr imarily involving the cortex of the right occipital, bilateral parietal and left frontal lobe. * Lipid panel: Triglyceride is 255, cholesterol 120, LDLs 39 and HDL is 38. And strokes LDL goal is less than 70. * TSH: 0.90 on 12/27/20 (normal) and no need to be repeated. * Currently the patient is on aspirin 81 mg, Plavix 75 mg daily. She had order of Eliquis to be restarted. I spoke with Dr. Farooq (primary team) and notified him if he feels the benefits outweight the risk to start heparin. It was agreed to continue ASA 81mg and Plavix 75mg daily. To hold Eliquis 5mg 1 tab bid and to restart it by this Wednesday (01/06/2021) AM. * Continue Lipitor 40 mg daily at bedtime. * Ordered CT head for 01/05/2021 to see if any evolution of stroke. * Ordered limited 2-D echo with bubble study (last echo on 12/28/2020 report reviewed) and is pending. * PT, OT and REPATCHER are consulted. * On continous cardiac monitoring. * On Q4 hours neuro checks. * Cardiology is on board. * We'll defer the rest of the medical management to the primary team and vascular surgery team. The plan is discussed with the patient, her daughter who is at bedside and her primary care team. Jesus Villarreal M.D. Neuro-hospitalist Time with Patient: Less than 30
[2021-01-03 16:43] LABS: Glucose,Whole Blood 142 mg/dL (75-99)
--- NOTE | 2021-01-03 18:54 | ECHOF ---
Referral Reason:Limited and perform with bubble MEASUREMENTS -------- HEIGHT: 157.5 cm WEIGHT: 67.1 kg BP: 121/73 FINDINGS -------- Sinus rhythm. Limited Study Overall left ventricular systolic function is normal with, an EF between 60 - 65 %. Contrast study was performed with 2 iv injections of 8 ccs of agitated normal saline, at rest, and wi th cough. Negative saline bubble study. No PFO noted CONCLUSIONS -------- 1. Overall left ventricular systolic function is normal with, an EF between 60 - 65 %. 2. Contrast study was performed with 2 iv injections of 8 ccs of agitated normal saline, at rest, and with cough. 3. Negative saline bubble study. No PFO noted SOFT HAT BINDER: Barbie Whaley RDCS
[2021-01-03 20:37] LABS: Glucose,Whole Blood 213 mg/dL (75-99)
[2021-01-03] MEDS: ATORVASTATIN 40 MG TAB PO SCH (20:57)
[2021-01-03] MEDS: TEMAZEPAM 15 MG CAP PO SCH (20:57)
[2021-01-04 06:11] LABS: Glucose,Whole Blood 177 mg/dL (75-99)
[2021-01-04] MEDS: HYDROcodone/APAP 10-325MG 1 EACH TAB PO PRN ×2 (06:32→18:17)
[2021-01-04] MEDS: INSULIN ASPART (NovoLOG) 100 UNIT/ML VIAL SQ SCH ×4 (06:33→20:34)
[2021-01-04] MEDS: PANTOPRAZOLE 40 MG TABLET PO SCH (06:33)
[2021-01-04] MEDS: LEVOTHYROXINE 25 MCG TAB PO SCH (06:33)
[2021-01-04] MEDS: PSYLLIUM HUSK 100% 6 GM PACKET PO SCH ×2 (09:51→20:37)
[2021-01-04] MEDS: CHOLESTYRAMINE (WITH SUGAR) 4 GM PACKET PO SCH ×2 (09:51→18:32)
[2021-01-04] MEDS: atenoloL 25 MG TAB PO SCH ×2 (09:52→20:33)
[2021-01-04] MEDS: allopurinoL 100 MG TAB PO SCH (09:53)
[2021-01-04] MEDS: CHOLECALCIFEROL 25 MCG (1000 IU) TABLET PO SCH (09:53)
[2021-01-04] MEDS: CALCIUM CARB-VIT D 500 MG-5 MCG TAB PO SCH (09:53)
[2021-01-04] MEDS: GABAPENTIN 300 MG CAP PO SCH ×3 (09:53→20:34)
[2021-01-04] MEDS: ASPIRIN 81 MG PO SCH (09:53)
[2021-01-04] MEDS: CLOPIDOGREL 75 MG TAB PO SCH (09:53)
[2021-01-04] MEDS: DULoxetine HCL 60 MG CAPSULE.DR PO SCH (09:53)
[2021-01-04] MEDS: methocarbamoL 500 MG TAB PO SCH ×3 (09:55→20:35)
[2021-01-04] MEDS: IPRATROPIUM BROMIDE 0.06% NASAL SPRAY (15 ML) EA NOSTRIL SCH ×2 (09:56→20:33)
--- NOTE | 2021-01-04 10:00 | P.PN ---
Subjective Progress Note Date: 01/04/21 HISTORY OF PRESENT ILLNESS This is a 80-year-old female one of Dr. Rocha patient with past medical history of type 2 diabetes, non-Hodgkin's lymphoma [place] [address] Monaco and follows with Dr. Aranda status post chemotherapy and radiation therapy, TIA 5 years ago, hypertension, hyperlipidemia, hypertension, hypothyroidism, restless leg syndrome, recurrent depression, and osteoarthritis who has been treated for lower back pain post multiple lower back surgery and epidural injection with pain management at [facility], previous admission for acute GI bleed and acute blood loss anemia status post EGD and colonoscopy which revealed antral gastritis, area of ulceration, nonbleeding, in the distal transverse colon, pulmonary embolism and left lower leg DVT diagnosed 03/08/2020 on eliquis. She recently underwent revision T12-L2 fusion and decompression in in March 2020. Patient was seen recently with Dr. Mortensen for change in the color of her fingertip under Eliquis was increased from 2.5-5 mg twice a day as she omits the blood clot issue. Patient symptoms become much worse she was seen at her primary care physician who was concerned about blood clot in the subclavian area with a change consistent with possible acute thrombus see send her to the emergency department at [facility] where was seen and evaluated she was started on mild hydration she is in slight bit discomforted time patient will be hospitalized will be seen vascular and might need to go for angiogram to exclude any arterial thrombus. Patient at the time was diagnosed with recurrent UTI debility related to her back condition and the current thrombus. Patient was sent home last week and was scheduled to see Dr. Mortensen for possible thrombectomy and steal syndrome, patient ended up having right upper extremity angiogram with ultrasound guided right brachial artery axis for right brachiocephalic occlusion. Ended up having percutaneous transluminal balloon angioplasty of the right brachiocephalic artery with stent placement the same time. Patient developed to have stroke symptoms as soon as the sheath was pulled out with the blood pressure dropped down from 190-100 she developed to have lethargy, weakness, facial droop. Code stroke was called patient was transferred to the CT subsequently evaluated by neuro interventional who said this time no intervention needed she slowly did start resolving with her symptomatology all the major is negative patient was stable at the time. Patient was admitted to the floor under Dr. Mortensen's service requested medical consultation also requested neuro consult. Neuro exam every 2 hours will be done through the entire night. Her medication will be started at a debate whether to start her on anticoagulation or not as soon as tomorrow morning will be discussed with vascular. 01/02: MRI revealed abnormal signal involving the right cerebellum and bilateral cerebral hemispheres suggestive of acute ischemia. Embolic disease in the differential. Plavix started today as well as aspirin 81 mg daily, Lipitor 40 m g at bedtime. Eliquis has been discontinued. Neurology is on consult. Cardiology has increased atenolol 75 mg twice daily for tachycardia. She has been afebrile, heart rate 102, blood pressure 144/83, pulse ox 95% on room air. gluing machine adjuster is sinus rhythm. Repeat blood work reveals WBC 9.9, hemoglobin 11.5, platelet count 158. Electrolytes are normal. BUN 16 and creatinine 0.51. Blood sugars are running between 113 and 190. The scope therapy has evaluated patient and recommended either home with homecare or inpatient rehab. Consult with Dr. Arshad will be added. 01/03: Patient is doing slightly better MRI showed significant finding of acute embolic thrombus with no sign of bleeding. Plavix was started at the time. Now the talk whether to continue or discontinue Eliquis and there is a clear evidence of benefit been on Eliquis specially with previous history of A. fib along with history of pulmonary embolism, discussion with neurology today and agree if waiting 3 days in off Eliquis resume Eliquis around Wednesday while patient remain on Plavix and baby aspirin as a best next option. Patient in the meanwhile continue doing PTOT and potential going for inpatient rehab at this point. 01/04: Patient continues to have slow improvement. She has been seen by Dr. Arshad and has been agreeable to inpatient rehab at [facility]. Cardiology evaluated the patient and signed off. Echocardiogram limited study was done yesterday that revealed no PFO. EF 60-65%. We will order for event monitor to be placed prior to patient's discharge. Patient has been afebrile, heart rate 98, blood pressure 120/60, pulse ox 95% on room air. gluing machine adjuster sinus rhythm. Her blood glucose levels running between 142 and 213. Anticipate discharge on Wednesday. REVIEW OF SYSTEMS Constitutional: No fever, no chills, no night sweats. No weight change. Reports weakness, reports fatigue denies lethargy. No daytime sleepiness. EENT: No headache. No blurred vision or double vision, no loss of vision. No loss of Hearing, no ringing in the ears, Reports dizziness. No nasal drainage or congestion. No epistaxis. No sore throat. Lungs: Denies shortness of breath, cough, no sputum production. No wheezing. Cardiovascular: No chest pain, no left lower extremity edema. No palpitations. No paroxysmal nocturnal dyspnea. No orthopnea. No lightheadedness or dizziness. No syncopal episodes. Abdominal: No abdominal pain. No nausea, vomiting. No diarrhea. No constipation. No bloody or tarry stools.. No loss of appetite. Genitourinary: No dysuria, increased frequency, urgency. No urinary retention. Reports incontinence, loss of bladder control Musculoskeletal: No myalgias. Reports muscle weakness, reports gait dysfunction, facial droop. Reports back pain. No neck pain. Integumentary: No wounds, no lesions. No rash or pruritus. No unusual bruising. Slight purple color of the fingertip with possibility of arterial thrombus. Neurologic: No aphasia. No facial droop. No change in mentation. No head injury. No headache. No paralysis. No paresthesia. Psychiatric: No depression. No anxiety. No mood swings. Endocrine: Mildly abnormal blood sugars. PHYSICAL EXAMINATION Gen: This is A 80-year-old female. Patient is resting in bed appears to be comfortable and in no acute distress. No respiratory distress is noted. HEENT: Head is atraumatic, normocephalic. Pupils equal, round. Sclerae is anicteric. NECK: Supple. No JVD. No lymphadenopathy. No thyromegaly. LUNGS: Clear to auscultation. No wheezes or rhonchi. No intercostal retractions. HEART: Regular rate and rhythm. No murmur. ABDOMEN: Soft. Bowel sounds are present. No masses. No tenderness. BACK: Surgical wound is healed. No drainage, erythema. No deformity noted. EXTREMITIES: No pedal edema. No calf tenderness. Dorsalis pedis palpable bilaterally. Left foot drop. Mild blue coloring to the right fingertips. Sl NEUROLOGICAL: Patient is awake, alert and oriented x3. Cranial nerves 2 through 12 are grossly intact. ASSESSMENT AND PLAN 1. Acute ischemic stroke, embolic stroke. It has been decided that patient will be on aspirin 81 mg daily and Plavix 75 mg daily. Hold eliquis 5 mg twice daily and restart on January 06. Neurology consult is appreciated. PT, OT, speech therapy. Dr. Arshad consult appreciated. Patient will be going to inpatient rehab on Wednesday. Cardiology has signed off. We will order event monitor to be placed on Wednesday prior to discharge to rehab. 2. 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 3. Recent UTI and sepsis: Was treated and done well so far. 4. History of pulmonary embolism. Patient is off eliquis. PE was diagnosed in February 2020. 5. Diabetes mellitus type 2. Patient will be on NovoLog scale before meals and at bedtime. 6. Non-Hodgkin's lymphoma [place] [address] Monaco and follows with Dr. Aranda, in remission. 7. History of TIA with no deficits. 8. 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 Continue gabapentin 300 mg twice daily and 600 at bedtime. 9. Hypertension. Hold amlodipine 5 mg daily, continue atenolol increased to 75 mg twice daily. 10. Hypothyroidism. Continue levothyroxine 12.5 g daily. 11. Seasonal ALLERGIES. Continue Singulair 10 mg at bedtime. 12. Recurrent depression. Continue Prozac 30 mg daily. 13. Chronic gout. Continue allopurinol 100 mg daily. 14. Hyperlipidemia. Patient is not currently on statin. 15. Restless leg syndrome. Continue Requip. 16. GERD and GI prophylaxis. Protonix 17. Sinus tachycardia. Atenolol increased to 75 mg twice daily. COVID-19 testing: Patient was negative DISCHARGE PLAN Inpatient rehab at [facility]. Consult with Dr. Arshad. Impression and plan of care have been directed as dictated by the signing physician. Karen Quintero nurse practitioner acting as scribe for signing physician. Objective - Vital Signs Vital signs: Vital Signs Temp 97.0 F L 01/04/21 08:50 Pulse 98 01/04/21 08:50 Resp 18 01/04/21 08:50 BP 128/60 01/04/21 08:50 Pulse Ox 95 01/04/21 08:50 Intake & Output 01/03/21 01/04/21 01/04/21 18:59 06:59 18:59 Intake Total 600 136 Balance 600 136 Weight 62.5 kg Intake: Oral 600 136 Other: Voiding Method Bedpan # Voids 1 1 # Bowel Movements 1 - Labs CBC & Chem 7: 01/02/21 10:02 01/02/21 10:02 Labs: Abnormal Lab Results - Last 24 Hours (Table) 01/03/21 01/03/21 01/03/21 Range/Units 11:56 16:41 20:24 POC Glucose (mg/dL) 178 H 142 H 213 H (75-99) mg/dL 01/04/21 Range/Units 06:10 POC Glucose (mg/dL) 177 H (75-99) mg/dL
[2021-01-04] MEDS: ACETAMINOPHEN TAB 500 MG TAB PO PRN (10:02)
--- NOTE | 2021-01-04 11:29 | P.PN ---
Subjective Progress Note Date: 01/04/21 The patient is a 80-year-old female who is seen in neurologic follow- up on January 04, 2021, via teleneurology. The patient is seated in the bed. She says she is feeling slightly better today as compared to yesterday. She still continues to have some difficulty with grasping of objects. The patient denies difficulty with speech. She does not notice lateralizing weakness. Objective - Vital Signs Vital signs: Vital Signs Temp 97.0 F L 01/04/21 08:50 Pulse 98 01/04/21 08:50 Resp 18 01/04/21 08:50 BP 128/60 01/04/21 08:50 Pulse Ox 95 01/04/21 08:50 Intake & Output 01/03/21 01/04/21 01/04/21 18:59 06:59 18:59 Intake Total 600 136 Balance 600 136 Weight 62.5 kg Intake: Oral 600 136 Other: Voiding Method Bedpan Toilet # Voids 1 1 # Bowel Movements 1 - Exam Gen.: The patient is seated in the bed. She is well-nourished, well-developed and in no acute distress. HEENT: Head is atraumatic, normocephalic. Fundus not visualized. There is no scleral icterus. Mucous members are moist. Neurological examination Mental status: The patient is awake, alert and oriented 3. Her speech is clear. There is no anomia. There is no right left confusion. Cranial nerves: Pupils are equal, round and reactive to light. Visual trotter are full to confrontation. Extraocular movements are intact. Facial sensation is intact. There is mild flattening of the right nasolabial fold. Motor: Bilateral coremaking machine setter strength 4/5. Bilateral biceps and triceps strength 5/5. Deltoid and hip flexor strength 4/5 bilaterally. - Labs CBC & Chem 7: 01/02/21 10:02 01/02/21 10:02 Labs: Abnormal Lab Results - Last 24 Hours (Table) 01/03/21 01/03/21 01/03/21 Range/Units 11:56 16:41 20:24 POC Glucose (mg/dL) 178 H 142 H 213 H (75-99) mg/dL 01/04/21 Range/Units 06:10 POC Glucose (mg/dL) 177 H (75-99) mg/dL Assessment and Plan Assessment: 1. Bilateral acute hemispheric and cerebellar infarcts likely embolic in etiology-potentially secondary to surgery 2. Echocardiogram shows negative bubble study 3. Right brachiocephalic occlusion/stenosis status post balloon angioplasty 4. History of DVT on Eliquis Plan: 1. Continue current medication regime 2. Agree with stroke workup including PT, OT and speech therapy evaluations 3. Agree with inpatient rehabilitation Time with Patient: Less than 30 (spent 25 minutes with patient via teleneurol ogy)
[2021-01-04 11:56] LABS: Glucose,Whole Blood 181 mg/dL (75-99)
[2021-01-04 17:27] LABS: Glucose,Whole Blood 184 mg/dL (75-99)
[2021-01-04 20:00] LABS: Glucose,Whole Blood 215 mg/dL (75-99)
[2021-01-04] MEDS: ATORVASTATIN 40 MG TAB PO SCH (20:34)
[2021-01-04] MEDS: rOPINIRole HCL 4 MG TABLET PO SCH (20:34)
[2021-01-04] MEDS: TEMAZEPAM 15 MG CAP PO SCH (20:34)
[2021-01-05] MEDS: HYDROcodone/APAP 10-325MG 1 EACH TAB PO PRN ×2 (03:18→11:42)
[2021-01-05 06:14] LABS: Glucose,Whole Blood 167 mg/dL (75-99)
[2021-01-05] MEDS: INSULIN ASPART (NovoLOG) 100 UNIT/ML VIAL SQ SCH ×4 (06:19→21:16)
[2021-01-05] MEDS: PANTOPRAZOLE 40 MG TABLET PO SCH (06:19)
[2021-01-05] MEDS: LEVOTHYROXINE 25 MCG TAB PO SCH (06:19)
[2021-01-05] MEDS: atenoloL 25 MG TAB PO SCH ×2 (08:13→21:16)
[2021-01-05] MEDS: GABAPENTIN 300 MG CAP PO SCH ×3 (08:13→21:17)
[2021-01-05] MEDS: methocarbamoL 500 MG TAB PO SCH ×3 (08:13→21:17)
[2021-01-05] MEDS: CALCIUM CARB-VIT D 500 MG-5 MCG TAB PO SCH (08:13)
[2021-01-05] MEDS: allopurinoL 100 MG TAB PO SCH (08:13)
[2021-01-05] MEDS: ASPIRIN 81 MG PO SCH (08:13)
[2021-01-05] MEDS: DULoxetine HCL 60 MG CAPSULE.DR PO SCH (08:14)
[2021-01-05] MEDS: CHOLECALCIFEROL 25 MCG (1000 IU) TABLET PO SCH (08:14)
[2021-01-05] MEDS: CLOPIDOGREL 75 MG TAB PO SCH (08:14)
[2021-01-05] MEDS: IPRATROPIUM BROMIDE 0.06% NASAL SPRAY (15 ML) EA NOSTRIL SCH ×2 (08:17→21:16)
[2021-01-05] MEDS: PSYLLIUM HUSK 100% 6 GM PACKET PO SCH ×2 (08:18→21:17)
[2021-01-05] MEDS: CHOLESTYRAMINE (WITH SUGAR) 4 GM PACKET PO SCH ×2 (08:18→16:45)
--- NOTE | 2021-01-05 09:49 | CT ---
EXAMINATION TYPE: CT brain wo con DATE OF EXAM: 01/05/2021 COMPARISON: 01/01/2021, 01/02/2021 HISTORY: 80-year-old female, stroke. Assess for any evolution. TECHNIQUE: Examination was done in axial plane without intravenous contrast. Coronal and sagittal r econstructions performed. CT DLP: 1079.4 mGycm Automated exposure control for dose reduction was used. FINDINGS: Some areas of hypodensity have developed, only subtlely apparent along the right precentral gyrus, ax ial image 46 and left paramedian parietal lobe, axial image 37. Cortical hypodensities are more prono unced at the right occipital lobe and especially the right cerebellum where the hypodensity measures up to 2.2 cm. These areas correspond to the abnormal areas of restricted diffusion on patient's exten t 21 MRI. No evidence for acute intracranial hemorrhage, mass, mass effect, or midline shift. No extra-axial fl uid collection. No effacement of basal subarachnoid cisterns. No hydrocephalus. Paranasal sinuses well pneumatized. Small amount of fluid trapped within the inferior mastoid air vivek ls on both sides. Orbits and globes are intact IMPRESSION: Evolving, multifocal subacute infarcts (characterized by areas of hypodensity) corresponding to distr ibution seen on the patient's 01/02/2021 MRI. Some areas are more apparent than others, particularly t he right cerebellar hemisphere and right occipital lobe. No acute intracranial hemorrhage, mass effec t, or midline shift.
--- NOTE | 2021-01-05 10:32 | P.PN ---
Subjective Progress Note Date: 01/05/21 HISTORY OF PRESENT ILLNESS This is a 80-year-old female one of Dr. Rocha patient with past medical history of type 2 diabetes, non-Hodgkin's lymphoma [place] [address] Monaco and follows with Dr. Aranda status post chemotherapy and radiation therapy, TIA 5 years ago, hypertension, hyperlipidemia, hypertension, hypothyroidism, restless leg syndrome, recurrent depression, and osteoarthritis who has been treated for lower back pain post multiple lower back surgery and epidural injection with pain management at [facility], previous admission for acute GI bleed and acute blood loss anemia status post EGD and colonoscopy which revealed antral gastritis, area of ulceration, nonbleeding, in the distal transverse colon, pulmonary embolism and left lower leg DVT diagnosed 03/08/2020 on eliquis. She recently underwent revision T12-L2 fusion and decompression in in March 2020. Patient was seen recently with Dr. Mortensen for change in the color of her fingertip under Eliquis was increased from 2.5-5 mg twice a day as she omits the blood clot issue. Patient symptoms become much worse she was seen at her primary care physician who was concerned about blood clot in the subclavian area with a change consistent with possible acute thrombus see send her to the emergency department at [facility] where was seen and evaluated she was started on mild hydration she is in slight bit discomforted time patient will be hospitalized will be seen vascular and might need to go for angiogram to exclude any arterial thrombus. Patient at the time was diagnosed with recurrent UTI debility related to her back condition and the current thrombus. Patient was sent home last week and was scheduled to see Dr. Mortensen for possible thrombectomy and steal syndrome, patient ended up having right upper extremity angiogram with ultrasound guided right brachial artery axis for right brachiocephalic occlusion. Ended up having percutaneous transluminal balloon angioplasty of the right brachiocephalic artery with stent placement the same time. Patient developed to have stroke symptoms as soon as the sheath was pulled out with the blood pressure dropped down from 190-100 she developed to have lethargy, weakness, facial droop. Code stroke was called patient was transferred to the CT subsequently evaluated by neuro interventional who said this time no intervention needed she slowly did start resolving with her symptomatology all the major is negative patient was stable at the time. Patient was admitted to the floor under Dr. Mortensen's service requested medical consultation also requested neuro consult. Neuro exam every 2 hours will be done through the entire night. Her medication will be started at a debate whether to start her on anticoagulation or not as soon as tomorrow morning will be discussed with vascular. 01/02: MRI revealed abnormal signal involving the right cerebellum and bilateral cerebral hemispheres suggestive of acute ischemia. Embolic disease in the differential. Plavix started today as well as aspirin 81 mg daily, Lipitor 40 m g at bedtime. Eliquis has been discontinued. Neurology is on consult. Cardiology has increased atenolol 75 mg twice daily for tachycardia. She has been afebrile, heart rate 102, blood pressure 144/83, pulse ox 95% on room air. quality assurance monitor chassis is sinus rhythm. Repeat blood work reveals WBC 9.9, hemoglobin 11.5, platelet count 158. Electrolytes are normal. BUN 16 and creatinine 0.51. Blood sugars are running between 113 and 190. The scope therapy has evaluated patient and recommended either home with homecare or inpatient rehab. Consult with Dr. Arshad will be added. 01/03: Patient is doing slightly better MRI showed significant finding of acute embolic thrombus with no sign of bleeding. Plavix was started at the time. Now the talk whether to continue or discontinue Eliquis and there is a clear evidence of benefit been on Eliquis specially with previous history of A. fib along with history of pulmonary embolism, discussion with neurology today and agree if waiting 3 days in off Eliquis resume Eliquis around Wednesday while patient remain on Plavix and baby aspirin as a best next option. Patient in the meanwhile continue doing PTOT and potential going for inpatient rehab at this point. 01/04: Patient continues to have slow improvement. She has been seen by Dr. Arshad and has been agreeable to inpatient rehab at [facility]. Cardiology evaluated the patient and signed off. Echocardiogram limited study was done yesterday that revealed no PFO. EF 60-65%. We will order for event monitor to be placed prior to patient's discharge. Patient has been afebrile, heart rate 98, blood pressure 120/60, pulse ox 95% on room air. quality assurance monitor chassis sinus rhythm. Her blood glucose levels running between 142 and 213. Anticipate discharge on Wednesday. 01/05: Patient seen this morning, complaining of mild left lower quadrant tenderness on palpation patient has not had a bowel movement in 2 days, denies any nausea, fever, or trouble eating. Vital signs have remained stable she is afebrile, pulse rate 99, blood pressure 118/80, pulse ox 96% on room air. Patient does have a mild weaker grasp on the right side, CT of the brain from this morning showed evolving multifocal infarcts corresponding to distribution seen on patient's 01/02 MRI. Some areas are more apparent than others, particularly the right cerebral hemisphere and right occipital lobe. Plan to d ischarge likely tomorrow to [facility] for subacute rehab if stable. REVIEW OF SYSTEMS Constitutional: No fever, no chills, no night sweats. No weight change. Reports weakness, reports fatigue denies lethargy. No daytime sleepiness. EENT: No headache. No blurred vision or double vision, no loss of vision. No loss of Hearing, no ringing in the ears, Reports dizziness. No nasal drainage or congestion. No epistaxis. No sore throat. Lungs: Denies shortness of breath, cough, no sputum production. No wheezing. Cardiovascular: No chest pain, no left lower extremity edema. No palpitations. No paroxysmal nocturnal dyspnea. No orthopnea. No lightheadedness or dizziness. No syncopal episodes. Abdominal: No abdominal pain. No nausea, vomiting. No diarrhea. No constipation. No bloody or tarry stools.. No loss of appetite. Genitourinary: No dysuria, increased frequency, urgency. No urinary retention. Reports incontinence, loss of bladder control Musculoskeletal: No myalgias. Reports muscle weakness, reports gait dysfunction, facial droop. Reports back pain. No neck pain. Integumentary: No wounds, no lesions. No rash or pruritus. No unusual bruising. Slight purple color of the fingertip with possibility of arterial thrombus. Neurologic: No aphasia. No change in mentation. No head injury. No headache. No paralysis. No paresthesia. Psychiatric: No depression. No anxiety. No mood swings. Endocrine: Mildly abnormal blood sugars. PHYSICAL EXAMINATION Gen: This is A 80-year-old female. Patient is resting in bed appears to be comfortable and in no acute distress. No respiratory distress is noted. HEENT: Head is atraumatic, normocephalic. Pupils equal, round. Sclerae is anicteric. NECK: Supple. No JVD. No lymphadenopathy. No thyromegaly. LUNGS: Clear to auscultation. No wheezes or rhonchi. No intercostal retractions. HEART: Regular rate and rhythm. No murmur. ABDOMEN: Soft. Bowel sounds are present. No masses. No tenderness. BACK: Surgical wound is healed. No drainage, erythema. No deformity noted. EXTREMITIES: No pedal edema. No calf tenderness. Dorsalis pedis palpable bilaterally. Left foot drop. Mild blue coloring to the right fingertips. NEUROLOGICAL: Patient is awake, alert and oriented x3. Cranial nerves 2 through 12 are grossly intact. ASSESSMENT AND PLAN 1. Acute ischemic stroke, embolic stroke. It has been decided that patient will be on aspirin 81 mg daily and Plavix 75 mg daily. Hold eliquis 5 mg twice daily and restart on Wednesday, January 06. Neurology consult is appreciated. PT, OT, speech therapy. Dr. Arshad consult appreciated. Patient will be going to inpatient rehab on Wednesday. Cardiology has signed off. We will order event monitor to be placed on Wednesday prior to discharge to rehab. 2. 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 3. Recent UTI and sepsis: Was treated and done well so far. 4. History of pulmonary embolism. Patient is off eliquis. PE was diagnosed in February 2020. 5. Diabetes mellitus type 2. Patient will be on NovoLog scale before meals and at bedtime. 6. Non-Hodgkin's lymphoma [place] [address] Monaco and follows with Dr. Aranda, in remission. 7. History of TIA with no deficits. 8. 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 Continue gabapentin 300 mg twice daily and 600 at bedtime. 9. Hypertension. Hold amlodipine 5 mg daily, continue atenolol increased to 75 mg twice daily. 10. Hypothyroidism. Continue levothyroxine 12.5 g daily. 11. Seasonal ALLERGIES. Continue Singulair 10 mg at bedtime. 12. Recurrent depression. Continue Prozac 30 mg daily. 13. Chronic gout. Continue allopurinol 100 mg daily. 14. Hyperlipidemia. Patient is not currently on statin. 15. Restless leg syndrome. Continue Requip. 16. GERD and GI prophylaxis. Protonix 17. Sinus tachycardia. Atenolol increased to 75 mg twice daily. COVID-19 testing: Patient was negative DISCHARGE PLAN Inpatient rehab at [facility]. Consult with Dr. Arshad. Impression and plan of care have been directed as dictated by the signing physician. Abby Rothman nurse practitioner acting as scribe for signing physician. Objective - Vital Signs Vital signs: Vital Signs Temp 97.7 F 01/04/21 23:20 Pulse 94 01/05/21 03:20 Resp 17 01/05/21 03:20 BP 128/84 01/05/21 03:20 Pulse Ox 95 01/05/21 03:20 Intake & Output 01/04/21 01/05/21 01/05/21 18:59 06:59 18:59 Intake Total 136 Balance 136 Weight 62.9 kg Intake: Oral 136 Other: Voiding Method Toilet Toilet # Voids 3 1 - Labs CBC & Chem 7: 01/02/21 10:02 01/02/21 10:02 Labs: Abnormal Lab Results - Last 24 Hours (Table) 01/04/21 01/04/21 01/04/21 Range/Units 11:54 17:25 19:59 POC Glucose (mg/dL) 181 H 184 H 215 H (75-99) mg/dL 01/05/21 Range/Units 06:12 POC Glucose (mg/dL) 167 H (75-99) mg/dL
[2021-01-05 10:54] LABS: Anisocytosis Slight; HCT 32.2 % (34.0-46.0); HGB 10.7 gm/dL (11.4-16.0); MCH 29.7 pg (25.0-35.0); MCHC 33.2 g/dL (31.0-37.0); MCV 89.5 fL (80.0-100.0); Mean Platelet Volume 7.6; Platelet Count 137 k/uL (150-450); WBC 7.7 k/uL (3.8-10.6)
[2021-01-05 11:24] LABS: ALT 16 U/L (4-34); AST 23 U/L (14-36); African American GFR (CKD) >90 (>60 ml/min/1.73 sqM); Albumin 3.6 g/dL (3.5-5.0); Alkaline Phosphatase 81 U/L (38-126); Anion Gap 7 mmol/L; Blood Urea Nitrogen 15 mg/dL (7-17); Calcium 9.6 mg/dL (8.4-10.2); Carbon Dioxide 27 mmol/L (22-30); Chloride 104 mmol/L (98-107); Glucose 197 mg/dL (74-99); Non-African American GFR(CKD) >90 (>60 ml/min/1.73 sqM); Sodium 138 mmol/L (137-145); Total Bilirubin 0.5 mg/dL (0.2-1.3); Total Protein 5.8 g/dL (6.3-8.2)
[2021-01-05 11:32] LABS: Glucose,Whole Blood 157 mg/dL (75-99)
[2021-01-05 12:03] LABS: Band Neutrophils % 2 %; Lymphocytes # (M) 0.69 k/uL (1.0-4.8); Metamyelocytes # (M) 0.31 k/uL (0); Metamyelocytes % 4 %; Monocytes # (M) 0.54 k/uL (0-1.0); Myelocytes # (M) 0.31 k/uL (0); Myelocytes % 4 %; Neutrophils % (M) 75 %; Nucleated Red Blood Cells 0 /100 WBC (0-0); Total Cells Counted 200
--- NOTE | 2021-01-05 14:37 | P.PN ---
Subjective Progress Note Date: 01/05/21 Patient seen and examined. Overall feeling quite well. Some mild left lower quadrant pain, has not had a regular bowel movement yet. Overall weaknesses significantly improved. She feels more like herself. Objective - Vital Signs Vital signs: Vital Signs Temp 97.8 F 01/05/21 11:39 Pulse 95 01/05/21 11:39 Resp 16 01/05/21 11:39 BP 105/70 01/05/21 11:39 Pulse Ox 97 01/05/21 11:39 Intake & Output 01/04/21 01/05/21 01/05/21 18:59 06:59 18:59 Intake Total 136 920 Balance 136 920 Weight 62.9 kg Intake: Oral 136 920 Other: Voiding Method Toilet Toilet Toilet # Voids 3 1 1 - Exam Genitals a pleasant cooperative female in no acute distress. HEENT is normocephalic, atraumatic, extraocular motion intact. Heart appears regular at this time. Lungs are clear bilaterally. Abdomen is soft, mild left lower quadrant tenderness to palpation. Extremity show no clubbing or cyanosis. There is ecchymosis to the right arm. Palpable radial and ulnar pulses. Slightly decreased flaking roll operator strength of the right. - Labs CBC & Chem 7: 01/05/21 10:36 01/05/21 10:36 Labs: Abnormal Lab Results - Last 24 Hours (Table) 01/04/21 01/04/21 01/05/21 Range/Units 17:25 19:59 06:12 RBC (3.80-5.40) m/uL Hgb (11.4-16.0) gm/dL Hct (34.0-46.0) % RDW (11.5-15.5) % Plt Count (150-450) k/uL Lymphocytes # (Manual) (1.0-4.8) k/uL Metamyelocytes # (Man) (0) k/uL Myelocytes # (Manual) (0) k/uL Glucose (74-99) mg/dL POC Glucose (mg/dL) 184 H 215 H 167 H (75-99) mg/dL Total Protein (6.3-8.2) g/dL 01/05/21 01/05/21 01/05/21 Range/Units 10:36 10:36 11:30 RBC 3.60 L (3.80-5.40) m/uL Hgb 10.7 L (11.4-16.0) gm/dL Hct 32.2 L (34.0-46.0) % RDW 18.0 H (11.5-15.5) % Plt Count 137 L (150-450) k/uL Lymphocytes # (Manual) 0.69 L (1.0-4.8) k/uL Metamyelocytes # (Man) 0.31 H (0) k/uL Myelocytes # (Manual) 0.31 H (0) k/uL Glucose 197 H (74-99) mg/dL POC Glucose (mg/dL) 157 H (75-99) mg/dL Total Protein 5.8 L (6.3-8.2) g/dL Assessment and Plan Assessment: Postop right upper extremity angiogram, angioplasty and stent of the brachiocephalic artery 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 Would drop off aspirin once eliquis started. Continue PT OT. Anticipate discharge to rehab facility next 24-48 hours
[2021-01-05 17:00] LABS: Glucose,Whole Blood 190 mg/dL (75-99)
[2021-01-05 20:34] LABS: Glucose,Whole Blood 212 mg/dL (75-99)
[2021-01-05] MEDS: ESTRADIOL 0.1 MG/GM VAGINAL CREAM 42.5 GM TUBE VAGINAL SCH (21:16)
[2021-01-05] MEDS: ATORVASTATIN 40 MG TAB PO SCH (21:16)
[2021-01-05] MEDS: rOPINIRole HCL 4 MG TABLET PO SCH (21:17)
[2021-01-05] MEDS: TEMAZEPAM 15 MG CAP PO SCH (21:17)
[2021-01-06] MEDS: HYDROcodone/APAP 10-325MG 1 EACH TAB PO PRN (02:41)
[2021-01-06 03:39] VITALS: RESP 18
[2021-01-06 06:41] LABS: Glucose,Whole Blood 183 mg/dL (75-99)
[2021-01-06] MEDS: PANTOPRAZOLE 40 MG TABLET PO SCH (06:43)
[2021-01-06] MEDS: LEVOTHYROXINE 25 MCG TAB PO SCH (06:43)
[2021-01-06] MEDS: INSULIN ASPART (NovoLOG) 100 UNIT/ML VIAL SQ SCH ×2 (06:43→12:39)
[2021-01-06 09:03] VITALS: TEMP 97.7
[2021-01-06] MEDS ORDERED: HYDROcodone/APAP 10-325MG 1 EACH TAB PO ONE (09:06)
[2021-01-06] MEDS: CLOPIDOGREL 75 MG TAB PO SCH (09:07)
[2021-01-06] MEDS: PSYLLIUM HUSK 100% 6 GM PACKET PO SCH (09:07)
[2021-01-06] MEDS: ASPIRIN 81 MG PO SCH (09:07)
[2021-01-06] MEDS: GABAPENTIN 300 MG CAP PO SCH (09:07)
[2021-01-06] MEDS: CALCIUM CARB-VIT D 500 MG-5 MCG TAB PO SCH (09:08)
[2021-01-06] MEDS: DULoxetine HCL 60 MG CAPSULE.DR PO SCH (09:08)
[2021-01-06] MEDS: atenoloL 25 MG TAB PO SCH (09:08)
[2021-01-06] MEDS: allopurinoL 100 MG TAB PO SCH (09:08)
[2021-01-06] MEDS: CHOLECALCIFEROL 25 MCG (1000 IU) TABLET PO SCH (09:08)
[2021-01-06] MEDS: methocarbamoL 500 MG TAB PO SCH (09:08)
[2021-01-06] MEDS: IPRATROPIUM BROMIDE 0.06% NASAL SPRAY (15 ML) EA NOSTRIL SCH (09:09)
[2021-01-06] MEDS ORDERED: atenoloL 25 MG TAB PO STA (09:26)
[2021-01-06] MEDS: CHOLESTYRAMINE (WITH SUGAR) 4 GM PACKET PO SCH (10:20)
[2021-01-06 11:49] LABS: Glucose,Whole Blood 209 mg/dL (75-99)
[2021-01-06 11:56] VITALS: BP 127/60; PULSE 94
--- NOTE | 2021-01-06 12:28 | P.PN ---
Subjective Progress Note Date: 01/06/21 Patient is laying comfortably in the bed. States "can't codifier in both hands as should". Patient states that she used to have history of headaches but not has any headache at this time. Denies nausea vomiting. She had couple dizzy spells when she got up to go to the bathroom. Denies dizziness at this time. She feels her left side is slightly more weaker. Her right hand Is sore. For a couple days after her initial stroke she was having difficulty with focusing out of the right eye but now it has all resolved. telemetry monitoring showing sinus tachycardia. Objective - Vital Signs Vital signs: Vital Signs Temp 97.7 F 01/06/21 09:02 Pulse 94 01/06/21 11:56 Resp 18 01/06/21 11:56 BP 127/60 01/06/21 11:56 Pulse Ox 94 L 01/06/21 11:56 Intake & Output 01/05/21 01/06/21 01/06/21 18:59 06:59 18:59 Intake Total 1520 Balance 1520 Weight 62.5 kg Intake: Oral 1520 Other: Voiding Method Toilet Toilet # Voids 2 - Exam Patient is an elderly female, very pleasant, in no distress. Patient is fully oriented. Patient is alert awake oriented to time place and person. Speech and language functions are normal. No aphasia or dysarthria. Patient can name and repeat very well. Her voice is slightly hoarse. Attention, concentration and fund of knowledge is adequate. On cranial examination, pupils are round and reacting to light, visual trotter are full on confrontation, extraocular muscles are intact with no nystagmus. Patient has very mild left facial asymmetry, tongue protrudes to the midline. Palatal elevation and sensation normal, hearing and shoulder shrug normal, facial sensation normal. On muscle strength testing, there is minimal left pronation, no drift and the strength is normal in arms and legs distally and proximally. Airplane Tester is 5-. Deep tendon reflexes are 1 in the upper limbs, trace at the lower limbs and plantars downgoing. Sensory to touch is equal with no neglect. Cerebellar function showed no ataxia for [id number] testing. Tone and bulk of muscles normal. Gait not checked. On general examination, there is no carotid bruit or murmur, S1-S2 audible. Abdomen is soft nontender. Chest is clear. Peripheral pulses are present. No edema. Patient has significant ecchymosis in the right upper limb from previous IV use. - Labs CBC & Chem 7: 01/05/21 10:36 01/05/21 10:36 Labs: Abnormal Lab Results - Last 24 Hours (Table) 01/05/21 01/05/21 01/06/21 Range/Units 16:58 20:06 06:39 POC Glucose (mg/dL) 190 H 212 H 183 H (75-99) mg/dL 01/06/21 Range/Units 11:49 POC Glucose (mg/dL) 209 H (75-99) mg/dL Assessment and Plan Assessment: 1. Bilateral acute hemispheric and right cerebellar infarcts likely embolic in etiology-potentially secondary to surgery 2. Echocardiogram shows negative bubble study 3. Right brachiocephalic occlusion/stenosis status post balloon angioplasty and stenting 4. History of DVT on Eliquis 5. Diabetes. Plan: 1. Continue current medication regime. Patient has been started on Eliquis and Plavix (due to recent stent). Discontinue aspirin. 2. Agree with stroke workup including PT, OT and speech therapy evaluations 3. Agree with inpatient rehabilitation, probable discharge today 4. Patient's hemoglobin A1c 7.8 on 10/06/2020. 5. 2-D echo showed normal left ventricular ejection fraction 60-65%. Negative bubble study for PFO. 6. Patient on Protonix 60 mg for gastric ulcer prophylaxis. 7. Neurologically clear for transfer to rehab facility.
--- NOTE | 2021-01-06 12:30 | P.PN ---
Subjective Progress Note Date: 01/06/21 HISTORY OF PRESENT ILLNESS This is a 80-year-old female one of Dr. Rocha patient with past medical history of type 2 diabetes, non-Hodgkin's lymphoma [place] [address] Monaco and follows with Dr. Aranda status post chemotherapy and radiation therapy, TIA 5 years ago, hypertension, hyperlipidemia, hypertension, hypothyroidism, restless leg syndrome, recurrent depression, and osteoarthritis who has been treated for lower back pain post multiple lower back surgery and epidural injection with pain management at [facility], previous admission for acute GI bleed and acute blood loss anemia status post EGD and colonoscopy which revealed antral gastritis, area of ulceration, nonbleeding, in the distal transverse colon, pulmonary embolism and left lower leg DVT diagnosed 03/08/2020 on eliquis. She recently underwent revision T12-L2 fusion and decompression in in March 2020. Patient was seen recently with Dr. Mortensen for change in the color of her fingertip under Eliquis was increased from 2.5-5 mg twice a day as she omits the blood clot issue. Patient symptoms become much worse she was seen at her primary care physician who was concerned about blood clot in the subclavian area with a change consistent with possible acute thrombus see send her to the emergency department at [facility] where was seen and evaluated she was started on mild hydration she is in slight bit discomforted time patient will be hospitalized will be seen vascular and might need to go for angiogram to exclude any arterial thrombus. Patient at the time was diagnosed with recurrent UTI debility related to her back condition and the current thrombus. Patient was sent home last week and was scheduled to see Dr. Mortensen for possible thrombectomy and steal syndrome, patient ended up having right upper extremity angiogram with ultrasound guided right brachial artery axis for right brachiocephalic occlusion. Ended up having percutaneous transluminal balloon angioplasty of the right brachiocephalic artery with stent placement the same time. Patient developed to have stroke symptoms as soon as the sheath was pulled out with the blood pressure dropped down from 190-100 she developed to have lethargy, weakness, facial droop. Code stroke was called patient was transferred to the CT subsequently evaluated by neuro interventional who said this time no intervention needed she slowly did start resolving with her symptomatology all the major is negative patient was stable at the time. Patient was admitted to the floor under Dr. Mortensen's service requested medical consultation also requested neuro consult. Neuro exam every 2 hours will be done through the entire night. Her medication will be started at a debate whether to start her on anticoagulation or not as soon as tomorrow morning will be discussed with vascular. 01/02: MRI revealed abnormal signal involving the right cerebellum and bilateral cerebral hemispheres suggestive of acute ischemia. Embolic disease in the differential. Plavix started today as well as aspirin 81 mg daily, Lipitor 40 m g at bedtime. Eliquis has been discontinued. Neurology is on consult. Cardiology has increased atenolol 75 mg twice daily for tachycardia. She has been afebrile, heart rate 102, blood pressure 144/83, pulse ox 95% on room air. threat monitoring analyst is sinus rhythm. Repeat blood work reveals WBC 9.9, hemoglobin 11.5, platelet count 158. Electrolytes are normal. BUN 16 and creatinine 0.51. Blood sugars are running between 113 and 190. The scope therapy has evaluated patient and recommended either home with homecare or inpatient rehab. Consult with Dr. Arshad will be added. 01/03: Patient is doing slightly better MRI showed significant finding of acute embolic thrombus with no sign of bleeding. Plavix was started at the time. Now the talk whether to continue or discontinue Eliquis and there is a clear evidence of benefit been on Eliquis specially with previous history of A. fib along with history of pulmonary embolism, discussion with neurology today and agree if waiting 3 days in off Eliquis resume Eliquis around Wednesday while patient remain on Plavix and baby aspirin as a best next option. Patient in the meanwhile continue doing PTOT and potential going for inpatient rehab at this point. 01/04: Patient continues to have slow improvement. She has been seen by Dr. Arshad and has been agreeable to inpatient rehab at [facility]. Cardiology evaluated the patient and signed off. Echocardiogram limited study was done yesterday that revealed no PFO. EF 60-65%. We will order for event monitor to be placed prior to patient's discharge. Patient has been afebrile, heart rate 98, blood pressure 120/60, pulse ox 95% on room air. threat monitoring analyst sinus rhythm. Her blood glucose levels running between 142 and 213. Anticipate discharge on Wednesday. 01/05: Patient seen this morning, complaining of mild left lower quadrant tenderness on palpation patient has not had a bowel movement in 2 days, denies any nausea, fever, or trouble eating. Vital signs have remained stable she is afebrile, pulse rate 99, blood pressure 118/80, pulse ox 96% on room air. Patient does have a mild weaker grasp on the right side, CT of the brain from this morning showed evolving multifocal infarcts corresponding to distribution seen on patient's 01/02 MRI. Some areas are more apparent than others, particularly the right cerebral hemisphere and right occipital lobe. Plan to d ischarge likely tomorrow to [facility] for subacute rehab if stable. 01/06: It has been recommended the patient be on Plavix and eliquis. No prescriptions on for Plavix. Patient denies any new complaints. She has significant bruising to the right upper arm as this is the only arm to be used for blood pressure readings. She also continues to have a dusky color fingertips but slightly improved. She denies having any chest pain or shortness of breath. No facial drooping/slurred speech. Patient is scheduled to go to inpatient rehab today. We had ordered an event monitor to be placed prior to discharge. Medication reconciliation has been reviewed. 105, blood pressure 111/62, pulse ox 90% on room air. Atenolol was increased. REVIEW OF SYSTEMS Constitutional: No fever, no chills, no night sweats. No weight change. Reports weakness, reports fatigue denies lethargy. No daytime sleepiness. EENT: No headache. No blurred vision or double vision, no loss of vision. No loss of Hearing, no ringing in the ears, Reports dizziness. No nasal drainage or congestion. No epistaxis. No sore throat. Lungs: Denies shortness of breath, cough, no sputum production. No wheezing. Cardiovascular: No chest pain, no left lower extremity edema. No palpitations. No paroxysmal nocturnal dyspnea. No orthopnea. No lightheadedness or dizziness. No syncopal episodes. Abdominal: No abdominal pain. No nausea, vomiting. No diarrhea. No constipation. No bloody or tarry stools.. No loss of appetite. Genitourinary: No dysuria, increased frequency, urgency. No urinary retention. Reports incontinence, loss of bladder control Musculoskeletal: No myalgias. Reports muscle weakness, reports gait dysfunction, facial droop. Reports back pain. No neck pain. Integumentary: No wounds, no lesions. No rash or pruritus. No unusual bruising. Slight purple color of the fingertips. Neurologic: No aphasia. No facial droop. No change in mentation. No head injury. No headache. No paralysis. No paresthesia. Psychiatric: No depression. No anxiety. No mood swings. Endocrine: Mildly abnormal blood sugars. PHYSICAL EXAMINATION Gen: This is A 80-year-old female. Patient is resting on recliner appears to be comfortable and in no acute distress. No respiratory distress is noted. HEENT: Head is atraumatic, normocephalic. Pupils equal, round. Sclerae is anicteric. NECK: Supple. No JVD. No lymphadenopathy. No thyromegaly. LUNGS: Clear to auscultation. No wheezes or rhonchi. No intercostal retractions. HEART: Regular rate and rhythm. No murmur. ABDOMEN: Soft. Bowel sounds are present. No masses. No tenderness. BACK: Surgical wound is healed. No drainage, erythema. No deformity noted. EXTREMITIES: No pedal edema. No calf tenderness. Dorsalis pedis palpable bilaterally. Left foot drop. Mild blue coloring to the right fingertips. NEUROLOGICAL: Patient is awake, alert and oriented x3. Cranial nerves 2 through 12 are grossly intact. ASSESSMENT AND PLAN 1. Acute ischemic stroke, embolic stroke. Patient resumed on eliquis as of today and continue Plavix, no aspirin. Neurology consult is appreciated. PT, OT, speech therapy. Dr. Arshad consult appreciated. Patient will be going to inpatient rehab on Wednesday. Cardiology has signed off. We ordered event monitor to be placed prior to discharge to rehab. 2. 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 3. Recent UTI and sepsis: Was treated and done well so far. 4. History of pulmonary embolism. Eliquis has been resumed. PE was diagnosed in February 2020. 5. Diabetes mellitus type 2. Patient will be on NovoLog scale before meals and at bedtime. 6. Non-Hodgkin's lymphoma [place] [address] Monaco and follows with Dr. Aranda, in remission. 7. History of TIA with no deficits. 8. 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 Continue gabapentin 300 mg twice daily and 600 at bedtime. 9. Hypertension. Hold amlodipine 5 mg daily, continue atenolol increased to 75 mg twice daily. 10. Hypothyroidism. Continue levothyroxine 12.5 g daily. 11. Seasonal ALLERGIES. Continue Singulair 10 mg at bedtime. 12. Recurrent depression. Continue Prozac 30 mg daily. 13. Chronic gout. Continue allopurinol 100 mg daily. 14. Hyperlipidemia. Patient is not currently on statin. 15. Restless leg syndrome. Continue Requip. 16. GERD and GI prophylaxis. Protonix 17. Sinus tachycardia. Atenolol increased to 75 mg twice daily. COVID-19 testing: Patient was negative DISCHARGE PLAN Inpatient rehab at [facility]. Impression and plan of care have been directed as dictated by the signing physician. Karen Quintero nurse practitioner acting as scribe for signing physician. Objective - Vital Signs Vital signs: Vital Signs Temp 97.7 F 01/06/21 09:02 Pulse 105 H 01/06/21 09:02 Resp 18 01/06/21 09:02 BP 111/62 01/06/21 09:02 Pulse Ox 98 01/06/21 09:02 Intake & Output 01/05/21 01/06/21 01/06/21 18:59 06:59 18:59 Intake Total 1520 Balance 1520 Weight 62.5 kg Intake: Oral 1520 Other: Voiding Method Toilet Toilet # Voids 2 - Labs CBC & Chem 7: 01/05/21 10:36 01/05/21 10:36 Labs: Abnormal Lab Results - Last 24 Hours (Table) 01/05/21 01/05/21 01/05/21 Range/Units 10:36 10:36 11:30 RBC 3.60 L (3.80-5.40) m/uL Hgb 10.7 L (11.4-16.0) gm/dL Hct 32.2 L (34.0-46.0) % RDW 18.0 H (11.5-15.5) % Plt Count 137 L (150-450) k/uL Lymphocytes # (Manual) 0.69 L (1.0-4.8) k/uL Metamyelocytes # (Man) 0.31 H (0) k/uL Myelocytes # (Manual) 0.31 H (0) k/uL Glucose 197 H (74-99) mg/dL POC Glucose (mg/dL) 157 H (75-99) mg/dL Total Protein 5.8 L (6.3-8.2) g/dL 01/05/21 01/05/21 01/06/21 Range/Units 16:58 20:06 06:39 RBC (3.80-5.40) m/uL Hgb (11.4-16.0) gm/dL Hct (34.0-46.0) % RDW (11.5-15.5) % Plt Count (150-450) k/uL Lymphocytes # (Manual) (1.0-4.8) k/uL Metamyelocytes # (Man) (0) k/uL Myelocytes # (Manual) (0) k/uL Glucose (74-99) mg/dL POC Glucose (mg/dL) 190 H 212 H 183 H (75-99) mg/dL Total Protein (6.3-8.2) g/dL
--- NOTE | 2021-01-06 12:44 | P.DS ---
Providers Date of admission: 01/02/21 15:11 Expected date of discharge: 01/06/21 Attending physician: Venessa Mortensen, Consults: 01/01/21 17:57 Consult Physician Routine Consulting Provider: Carlos Enrique Farooq Consult Reason/Comments: med management, post stent, code stroke Do you want consulting provider notified?: Yes 01/02/21 08:46 Consult Physician Urgent Consulting Provider: Jesus Villarreal Consult Reason/Comments: code stroke Do you want consulting provider notified?: Yes 01/02/21 12:36 Consult Physician Routine Consulting Provider: Jose Elias Arshad Consult Reason/Comments: IP rehab Do you want consulting provider notified?: Yes Primary care physician: [facility] Course: This is a pleasant 80-year-old female who approximately 1-2 months ago began having issues with increasing pain in her right upper extremity as well as cyanotic changes of her fingertips. She was scheduled for an elective angiogram with baloon angioplasty of the right brachiocephalic artery and right subclavian artery, and angioplasty and stent of right radiocephalic artery for right brachiocephalic stenosis with microembolic disease of the right fingers. at the conclusion of her procedure after the sheath was pulled the patient was given antihypertensive medications to bring her blood pressure down from the 190s and went down to the 120s she subsequently had symptoms of lethargy, weakness, and facial droop. A code stroke was called. Her initial CT brain was read by interventional neurologist who stated no intervention was needed with negative findings, patient slowly had some resolving of her symptoms. He also underwent a CT angiogram of neck that showed no evidence of hemodynamic stenosis in the brain and neck. No significant luminal narrowing. Atheromatous thoracic aorta. No aneurysm. Neurology was consulted and has been following patient closely, MRI of brain had been ordered that showed multiple areas of abnormal signal involving the right cerebellum and bilateral central cerebral hemispheres suggestive of acute ischemia. Embolic disease in the differential diagnosis. The patient's symptoms all but some right-handed weakness have resolved over the last several days. Neurology continued patient closely. During her hospital stay she has been maintained on aspirin, Plavix, and statin, Ahlquist has been on hold. The patient underwent a repeat CT of the brain yesterday showing some areas of hypodensity that have developed, only subtly Along the right precentral gyrus, axial image 46 and left paramedian parietal lobe, axial image 37. Cortical hypodensities are more pronounced at the right occipital lobe and especially the right cerebellum where the hypodensity measures up to 2.2 cm. These areas correspond to the abnormal areas of restricted diffusion on patient's exam 21 MRI. No evidence for acute intracranial hemorrhage, mass, mass effect, or midline shift. No extra-axial fluid collection. No effacement of basal subarachnoid cisterns. No hydrocephalus. Paranasal sinuses all pneumatized. Small amount of fluid trapped within the inferior mastoid air cells on both sides. [place] and globes are intact. Assessment: Patient was seen and examined sitting up in her bed. She denies any visual changes, difficulty with speech, difficulty with swallowing, or memory impairment. Patient has a history of right lower extremity weakness due to back pain and surgery. She states she still having some problems with grasping with her right hand and fingers. Otherwise she states she is doing well. She does have some discomfort in her right hand as well as along her arm. She has extensive ecchymosis along the right arm. No acute changes through the night, she denies any fevers or chills. Exam: General appearance: The patient is alert, oriented, appears in no acute distress. HET: Head is normocephalic and atraumatic. Pupils are equal and reactive. Neck: Supple without lymphadenopathy. Trachea midline. Heart: S1 S2. Regular rate and rhythm. Lungs: Clear to auscultation. Abdomen: Soft, nontender, nondistended with bowel sounds. Extremities: Bilateral +2 radial pulses. Bilateral upper extremities with full range of motion. Right fingertips was cyanosis. Right upper extremity with ecchymosis from shoulder to wrist. Neurological: Slight decreased grasp with right hand. Alert and oriented 3. No other focal deficits noted. Assessment: 1. Postop right upper extremity angiogram, angioplasty and stent of the brachiocephalic artery 2. 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 Acute ischemic stroke for bilateral hemispheres 4. History of TIA 5 years ago 5. History of DVT, PE 6. Type 2 diabetes 7. Hypertension 8. Hyperlipidemia Plan: Discussed anticoagulation and antiplatelet therapy with neurology. Will discontinue aspirin 81 mg, continue Plavix and will restart on Eliquis 5 mg twice a day. Plan will be for discharge to inpatient rehab facility today or tomorrow pending clearance from neurology and medicine. Continue PT and OT. Continue to follow recommendations from neurology. The impression and plan of care has been dictated as directed. I performed a history and examination of this patient, discussed the same with the dictator. I agree with the dictator's note ,documented as a scribe. Any additional findings or plans will be noted. Pertinent Studies: CT of the brain (01/05/21) shows some areas of hypodensity that have developed, only subtly Along the right precentral gyrus, axial image 46 and left paramedian parietal lobe, axial image 37. Cortical hypodensities are more pronounced at the right occipital lobe and especially the right cerebellum where the hypodensity measures up to 2.2 cm. These areas correspond to the abnormal areas of restricted diffusion on patient's exam 21 MRI. No evidence for acute intracranial hemorrhage, mass, mass effect, or midline shift. No extra-axial fluid collection. No effacement of basal subarachnoid cisterns. No hydrocephalus. Paranasal sinuses all pneumatized. Small amount of fluid trapped within the inferior mastoid air cells on both sides. [place] and globes are intact. MRI brain multiple areas of abnormal signal involving the right cerebellum and bilateral central cerebral hemispheres suggestive of acute ischemia. Embolic disease in the differential diagnosis. CT angiogram head and neck showed no evidence of hemodynamic stenosis in the brain and neck. No significant luminal narrowing. Atheromatous thoracic aorta. No aneurysm. Procedures: Right upper extremity angiogram, angioplasty and stent of the brachiocephalic artery Patient Condition at Discharge: Good Plan - Discharge Summary Discharge Rx Participant: Yes New Discharge Prescriptions: New atenoloL [Atenolol] 100 mg PO BID #60 tab Clopidogrel [Plavix] 75 mg PO DAILY #30 tab Continue allopurinoL [Zyloprim] 100 mg PO DAILY Calcium Carb-Vit D 500Mg-5Mcg [Oscal 500+D 5 Mcg (200 Iu)] 1 tab PO DAILY Levothyroxine Sodium [Synthroid] 12.5 mcg PO DAILY Alpha Lipoic Acid 600 mg PO DAILY Gabapentin [Neurontin] 300 mg PO TID Ipratropium [place] 0.06%Nasal [Atrovent Nasal 0.06%] 2 spr EA NOSTRIL BID HYDROcodone/APAP 10-325MG [[place] 10-325] 1 tab PO BID PRN PRN Reason: Pain Biotin 10 mg PO DAILY Dexlansoprazole [Dexilant] 60 mg PO DAILY Empaglifloz/Linaglip/Metformin [Trijardy Xr 25-5-1,000 mg Tab] 1 tab PO DAILY Temazepam [Restoril] 15 mg PO HS Apixaban [Eliquis] 5 mg PO BID rOPINIRole HCL [Requip] 2 mg PO BID@0800,1200 DULoxetine HCL [Cymbalta] 60 mg PO DAILY Psyllium Husk Powder 6 gm PO BID methocarbamoL [Robaxin] 500 mg PO TID Nuno-E 1000mg 1,000 mg PO DAILY Cholecalciferol [Vitamin D3 (25 Mcg = 1000 Iu)] 25 mcg PO DAILY Estradiol Cream [Estrace Cream 0.01%] 1 gm VAGINAL SUTH rOPINIRole HCL [Requip] 4 mg PO HS Atorvastatin [Lipitor] 40 mg PO HS Cholestyramine (with Sugar) [Questran Packet] 4 gm PO BID@1000,1800 #30 packet Loperamide [Imodium] 2 mg PO TID PRN PRN Reason: Diarrhea Discontinued atenoloL [Tenormin] 50 mg PO BID #60 tab Discharge Medication List Calcium Carb-Vit D 500Mg-5Mcg [Oscal 500+D 5 Mcg (200 Iu)] 1 tab PO DAILY 01/05/14 [History] allopurinoL [Zyloprim] 100 mg PO DAILY 01/05/14 [History] Levothyroxine Sodium [Synthroid] 12.5 mcg PO DAILY 03/16/14 [History] Alpha Lipoic Acid 600 mg PO DAILY 07/03/20 [History] Gabapentin [Neurontin] 300 mg PO TID 07/03/20 [History] Ipratropium [place] 0.06%Nasal [Atrovent Nasal 0.06%] 2 spr EA NOSTRIL BID 07/03/20 [History] Biotin 10 mg PO DAILY 07/15/20 [History] HYDROcodone/APAP 10-325MG [[place] 10-325] 1 tab PO BID PRN 07/15/20 [History] Dexlansoprazole [Dexilant] 60 mg PO DAILY 08/07/20 [History] Empaglifloz/Linaglip/Metformin [Trijardy Xr 25-5-1,000 mg Tab] 1 tab PO DAILY 09/20/20 [History] Apixaban [Eliquis] 5 mg PO BID 10/06/20 [History] Temazepam [Restoril] 15 mg PO HS 10/06/20 [History] methocarbamoL [Robaxin] 500 mg PO TID 12/03/20 [History] rOPINIRole HCL [Requip] 2 mg PO BID@0800,1200 12/03/20 [History] Cholecalciferol [Vitamin D3 (25 Mcg = 1000 Iu)] 25 mcg PO DAILY 12/17/20 [History] DULoxetine HCL [Cymbalta] 60 mg PO DAILY 12/17/20 [History] Estradiol Cream [Estrace Cream 0.01%] 1 gm VAGINAL SUTH 12/17/20 [History] Nuno-E 1000mg 1,000 mg PO DAILY 12/17/20 [History] Atorvastatin [Lipitor] 40 mg PO HS 12/27/20 [History] rOPINIRole HCL [Requip] 4 mg PO HS 12/27/20 [History] Cholestyramine (with Sugar) [Questran Packet] 4 gm PO BID@1000,1800 #30 packet 12/29/20 [Rx] Loperamide [Imodium] 2 mg PO TID PRN 12/30/20 [History] Psyllium Husk Powder 6 gm PO BID 12/30/20 [History] Clopidogrel [Plavix] 75 mg PO DAILY #30 tab 01/06/21 [Rx] atenoloL [Atenolol] 100 mg PO BID #60 tab 01/06/21 [Rx] Follow up Appointment(s)/Referral(s): [facility], [NON-STAFF] - Adi Pak MD [STAFF PHYSICIAN] - 1 Week Alvarez Rocha DO [Primary Care Provider] - 1 Week Venessa Mortensen DO [STAFF PHYSICIAN] - 1 Week Discharge Disposition: TRANSFER TO SNF/ECF
[2021-01-06] MEDS ORDERED: APIXABAN 5 MG TAB PO SCH (21:00)
[2021-01-06] MEDS ORDERED: atenoloL 50 MG TAB PO SCH (21:00)
== END 2021-01-06 16:17 | DRG 38 ==
LOC: CATHCVL 11:53 → 3SCARD 16:54 → CATHCVL 01-02 15:11 → 3SCARD 01-02 15:11
PROVIDERS: ADMIT Surgery; ATTEND Surgery
PROC: B31H1ZZ Fluoroscopy of Right Upper Extremity Arteries using Low Osmolar Contrast (ICD-10-PCS; principal; 2021-01-01 13:00)
PROC: B3101ZZ Fluoroscopy of Thoracic Aorta using Low Osmolar Contrast (ICD-10-PCS; principal; 2021-01-01 13:00)
PROC: 037 Upper Arteries, Dilation (ICD-10-PCS; principal; 2021-01-01 13:00)
PROC: B34 Imaging, Upper Arteries, Ultrasonography (ICD-10-PCS; principal; 2021-01-01 13:00)
PROC: 03733ZZ Dilation of Right Subclavian Artery, Percutaneous Approach (ICD-10-PCS; principal; 2021-01-01 13:00)
PROC: B34HZZ3 Ultrasonography of Right Upper Extremity Arteries, Intravascular (ICD-10-PCS; principal; 2021-01-01 13:00)
DX: I63.441 Cerebral infarction due to embolism of right cerebellar artery (principal); D68.51 Activated protein C resistance; F33.9 Major depressive disorder, recurrent, unspecified; G81.94 Hemiplegia, unspecified affecting left nondominant side; G81.91 Hemiplegia, unspecified affecting right dominant side; Z85.72 Personal history of non-Hodgkin lymphomas; E03.9 Hypothyroidism, unspecified; E11.9 Type 2 diabetes mellitus without complications; E78.5 Hyperlipidemia, unspecified; F40.240 Claustrophobia; G25.81 Restless legs syndrome; I10 Essential (primary) hypertension; I25.10 Atherosclerotic heart disease of native coronary artery without angina pectoris; J43.9 Emphysema, unspecified; J30.2 Other seasonal allergic rhinitis; I48.91 Unspecified atrial fibrillation; K21.9 Gastro-esophageal reflux disease without esophagitis; M1A.9XX0 Chronic gout, unspecified, without tophus (tophi); M47.815 Spondylosis without myelopathy or radiculopathy, thoracolumbar region; M48.04 Spinal stenosis, thoracic region; M48.061 Spinal stenosis, lumbar region without neurogenic claudication; R13.10 Dysphagia, unspecified; F41.9 Anxiety disorder, unspecified; R47.01 Aphasia; R29.715 NIHSS score 15; Z20.822 Contact with and (suspected) exposure to COVID-19; I35.0 Nonrheumatic aortic (valve) stenosis; M19.90 Unspecified osteoarthritis, unspecified site; G89.29 Other chronic pain; R26.9 Unspecified abnormalities of gait and mobility; Z87.440 Personal history of urinary (tract) infections; R29.810 Facial weakness; R00.0 Tachycardia, unspecified; M21.372 Foot drop, left foot; M21.371 Foot drop, right foot; S40.021A Contusion of right upper arm, initial encounter; Z79.01 Long term (current) use of anticoagulants; Z79.02 Long term (current) use of antithrombotics/antiplatelets; Z79.82 Long term (current) use of aspirin; Z79.890 Hormone replacement therapy; Z79.899 Other long term (current) drug therapy; Z80.1 Family history of malignant neoplasm of trachea, bronchus and lung; Z80.3 Family history of malignant neoplasm of breast; Z82.3 Family history of stroke; Z82.49 Family history of ischemic heart disease and other diseases of the circulatory system; Z86.711 Personal history of pulmonary embolism; Z86.718 Personal history of other venous thrombosis and embolism; Z86.73 Personal history of transient ischemic attack (TIA), and cerebral infarction without residual deficits; Z90.710 Acquired absence of both cervix and uterus; Z92.21 Personal history of antineoplastic chemotherapy; Z92.3 Personal history of irradiation; Z96.653 Presence of artificial knee joint, bilateral; Z90.89 Acquired absence of other organs; Z88.1 Allergy status to other antibiotic agents; Z88.5 Allergy status to narcotic agent; Z88.0 Allergy status to penicillin; Z88.2 Allergy status to sulfonamides; Z90.49 Acquired absence of other specified parts of digestive tract; Z98.42 Cataract extraction status, left eye; Z98.41 Cataract extraction status, right eye; Z98.1 Arthrodesis status
CPT/HCPCS: 37236; 37252; 37253; 70450; 70496; 70498; 70551; 80048; 80053; 80061; 85025; 93270; 93306

== ENCOUNTER 2021-02-13 15:25 | Inpatient (IN) | payer MEDICARE ==
[2021-02-13 15:52] LABS: Glucose,Whole Blood 190 mg/dL (75-99)
[2021-02-13 16:10] LABS: Albumin 4.4 g/dL (3.5-5.0); Calcium 10.1 mg/dL (8.4-10.2); Total Bilirubin 0.9 mg/dL (0.2-1.3); Total Protein 6.9 g/dL (6.3-8.2)
[2021-02-13 16:17] LABS: Anisocytosis Slight; Basophils % (A) 0 %; Eosinophils % (A) 0 %; HCT 39.1 % (34.0-46.0); HGB 12.6 gm/dL (11.4-16.0); Hypochromasia Slight; Lymphocytes # (A) 1.4 k/uL (1.0-4.8); Lymphocytes % (A) 18 %; MCH 31.6 pg (25.0-35.0); MCHC 32.4 g/dL (31.0-37.0); Macrocytosis Slight; Mean Platelet Volume 6.9; Monocytes # (A) 0.7 k/uL (0-1.0); Monocytes % (A) 10 %; Neutrophils # (A) 5.2 k/uL (1.3-7.7); Neutrophils % (A) 69 %; Platelet Count 270 k/uL (150-450); RBC 4.01 m/uL (3.80-5.40); WBC 7.6 k/uL (3.8-10.6)
--- NOTE | 2021-02-13 16:21 | CT ---
EXAMINATION TYPE: CT brain wo con for TPA DATE OF EXAM: 02/13/2021 COMPARISON: 01/05/2021 HISTORY: Right sided weakness and facial tingling. CT DLP: 1081.[address] of the brain was performed. The ventricles, basal cisterns and sulci overlying the cerebral convexities demonstrate mild enlargem ent. There is no evidence for intracranial hemorrhage or sulcal effacement. There is decreased attenuation about the periventricular white matter and deep white matter of both c erebral hemispheres, compatible with chronic small vessel ischemia. Differential diagnosis does inclu de demyelination. No mass effects are seen.No midline shift. Osseous calvarium is intact. If symptoms persist consider MRI. IMPRESSION: 1. Age related atrophic and chronic small vessel ischemic change without acute intracranial process s een at this time.
--- NOTE | 2021-02-13 16:29 | CT ---
EXAMINATION TYPE: CT angio head neck DATE OF EXAM: 02/13/2021 COMPARISON: 01/01/2021 HISTORY: Right sided weakness and facial tingling. CT DLP: 332.2 mGycm CONTRAST: Performed with IV Contrast, patient injected with 65 mL of Isovue 370. Combination Contrast CTA cervical carotids and [place] CTA cervical carotids with 3-D recons truction Contrast CTA of the cervical carotids was performed 3-D reconstruction imaging obtained at a separate workstation. Right carotid system: Mild plaque is seen of the right common carotid artery. There is mild plaque a lso noted at the carotid bulb and proximal ICA. Tortuosity noted of the ICA. No significant diameter reduction. ECA is patent. Right vertebral artery appears unremarkable. Left carotid system: Mild plaque is seen of the left common carotid artery. There is mild plaque als o noted at the carotid bulb and proximal ICA. Tortuosity noted of the ICA. No significant diameter r eduction. ECA is patent. Left vertebral artery appears unremarkable. IMPRESSION: 1. No significant diameter reduction to account for the patient's symptoms. CTA [place] with 3-D reconstruction Contrast CTA of the [place] was performed 3-D reconstruction imaging obtained at a separate workstation. Vertebrobasilar system as well as intracranial portions of the internal carotid arteries and their ma sandi tributaries are patent. I do not see evidence for sizable aneurysm or vascular malformation. Pl ease note MRI provides greater sensitivity and specificity. Visualized brain appears grossly unremar kable. IMPRESSION: 1. No significant abnormality.
[2021-02-13 16:42] LABS: MCV 97.5 fL (80.0-100.0)
--- NOTE | 2021-02-13 16:44 | ED ---
Neuro HPI - General Chief Complaint: Neuro Symptoms/Deficit Stated Complaint: Neuro Symptoms Source: patient Mode of arrival: wheelchair Limitations: no limitations - History of Present Illness Is the patient presenting with stroke symptoms?: Yes Last Known Well Date: 02/13/21 Last Known Well Time: 13:30 Initial Comments: 81-year-old female with past medical history of subclavian steal syndrome with recent stent placement, CVA post procedure, A. fib on Eliquis who presents emergency department with acute weakness of her right lower extremity. Daughter is at bedside and helps provide history. States that they were at a store shopping when the patient had weakness noted in her right lower extremity. This happened around 2 PM. She was unable to lift it to get into the car. The patient does have a history of stroke. She has had some residual weakness however the complete paralysis of the right leg is abnormal. The patient was also having speech difficulties which have resolved. She is on Eliquis and has been compliant. States she was recently taken off Plavix. No recent fevers chills. No head trauma. Patient did not receive TPA after her stroke one month ago. Denies chest pain or shortness of breath. No visual changes. No other alleviating, precipitating or modifying factors. - Related Data Home Medications: Home Medications Medication Instructions Recorded Confirmed Calcium Carb-Vit D 500Mg-5Mcg 1 tab PO DAILY 01/05/14 02/13/21 [Oscal 500+D 5 Mcg (200 Iu)] allopurinoL [Zyloprim] 100 mg PO DAILY 01/05/14 02/13/21 Levothyroxine Sodium [Synthroid] 12.5 mcg PO DAILY 03/16/14 02/13/21 Alpha Lipoic Acid 600 mg PO DAILY 07/03/20 02/13/21 Gabapentin [Neurontin] 300 mg PO TID 07/03/20 02/13/21 Ipratropium [place] 0.06%Nasal 2 spr EA NOSTRIL BID 07/03/20 02/13/21 [Atrovent Nasal 0.06%] Biotin 10 mg PO DAILY 07/15/20 02/13/21 HYDROcodone/APAP 10-325MG [[place] 1 tab PO BID PRN 07/15/20 02/13/21 10-325] Dexlansoprazole [Dexilant] 60 mg PO DAILY 08/07/20 02/13/21 Empaglifloz/Linaglip/Metformin 1 tab PO DAILY 09/20/20 02/13/21 [Trijardy Xr 25-5-1,000 mg Tab] Apixaban [Eliquis] 5 mg PO BID 10/06/20 02/13/21 Temazepam [Restoril] 15 mg PO HS 10/06/20 02/13/21 methocarbamoL [Robaxin] 500 mg PO TID PRN 12/03/20 02/13/21 rOPINIRole HCL [Requip] 2 mg PO BID@0800,1200 12/03/20 02/13/21 Cholecalciferol [Vitamin D3 (25 25 mcg PO DAILY 12/17/20 02/13/21 Mcg = 1000 Iu)] DULoxetine HCL [Cymbalta] 60 mg PO DAILY 12/17/20 02/13/21 Estradiol Cream [Estrace Cream 1 gm VAGINAL SUTH 12/17/20 02/13/21 0.01%] Nuno-E 1000mg 1,000 mg PO DAILY 12/17/20 02/13/21 Atorvastatin [Lipitor] 40 mg PO HS 12/27/20 02/13/21 rOPINIRole HCL [Requip] 4 mg PO HS 12/27/20 02/13/21 Loperamide [Imodium] 2 mg PO TID PRN 12/30/20 02/13/21 Atenolol [Tenormin] 50 mg PO BID 02/13/21 02/13/21 Collagenase [Santyl] 1 applic TOPICAL DAILY 02/13/21 02/13/21 Nitrofurantoin Monohyd/M-Cryst 100 mg PO DAILY 02/13/21 02/13/21 [Macrobid] Psyllium Husk (with Sugar) 6 gm PO BID 02/13/21 02/13/21 [Metamucil Powder] Previous Rx's Medication Instructions Recorded Clopidogrel [Plavix] 75 mg PO DAILY #30 tab 01/06/21 Allergies/Adverse Reactions: Allergies Allergy/AdvReac Type Severity Reaction Status Date / Time adhesive Allergy red skin, Verified 02/13/21 17:33 blisters cefaclor [From Ceclor] Allergy Rash/Hives Verified 02/13/21 17:33 ciprofloxacin [From Cipro] Allergy Rash/Hives Verified 02/13/21 17:33 ciprofloxacin HCl Allergy Rash/Hives Verified 02/13/21 17:33 [From Cipro] hydromorphone HCl Allergy Anaphylaxis Verified 02/13/21 17:33 [From Dilaudid] Penicillins Allergy Rash/Hives Verified 02/13/21 17:33 clindamycin AdvReac Nausea & Verified 02/13/21 17:33 Vomiting sulfamethoxazole AdvReac Abdominal Verified 02/13/21 17:33 [From Bactrim] Pain trimethoprim [From Bactrim] AdvReac Abdominal Verified 02/13/21 17:33 Pain Review of Systems ROS Statement: Those systems with pertinent positive or pertinent negative responses have been documented in the HPI. ROS Other: All systems not noted in ROS Statement are negative. General Exam Limitations: no limitations Stroke MDM - Lab Data Result diagrams: 02/13/21 15:52 02/13/21 15:52 Lab Results 02/13/21 02/13/21 02/13/21 Range/Units 15:48 15:52 15:52 WBC 7.6 (3.8-10.6) k/uL RBC 4.01 (3.80-5.40) m/uL Hgb 12.6 (11.4-16.0) gm/dL Hct 39.1 (34.0-46.0) % MCV 97.5 D (80.0-100.0) fL MCH 31.6 (25.0-35.0) pg MCHC 32.4 (31.0-37.0) g/dL RDW 17.0 H (11.5-15.5) % Plt Count 270 (150-450) k/uL MPV 6.9 Neutrophils % 69 % Lymphocytes % 18 % Monocytes % 10 % Eosinophils % 0 % Basophils % 0 % Neutrophils # 5.2 (1.3-7.7) k/uL Lymphocytes # 1.4 (1.0-4.8) k/uL Monocytes # 0.7 (0-1.0) k/uL Eosinophils # 0.0 (0-0.7) k/uL Basophils # 0.0 (0-0.2) k/uL Hypochromasia Slight Anisocytosis Slight Macrocytosis Slight PT 10.4 (9.0-12.0) sec INR 1.0 (<1.2) APTT 23.4 (22.0-30.0) sec Sodium (137-145) mmol/L Potassium (3.5-5.1) mmol/L Chloride (98-107) mmol/L Carbon Dioxide (22-30) mmol/L Anion Gap mmol/L BUN (7-17) mg/dL Creatinine (0.52-1.04) mg/dL Est GFR (CKD-EPI)AfAm (>60 ml/min/1.73 sqM) Est GFR (CKD-EPI)NonAf (>60 ml/min/1.73 sqM) Glucose (74-99) mg/dL POC Glucose (mg/dL) 190 H (75-99) mg/dL POC Glu [employer] Class ID Saman Conley Calcium (8.4-10.2) mg/dL Total Bilirubin (0.2-1.3) mg/dL AST (14-36) U/L ALT (4-34) U/L Alkaline Phosphatase (38-126) U/L Troponin I (0.000-0.034) ng/mL Total Protein (6.3-8.2) g/dL Albumin (3.5-5.0) g/dL 02/13/21 02/13/21 Range/Units 15:52 15:52 WBC (3.8-10.6) k/uL RBC (3.80-5.40) m/uL Hgb (11.4-16.0) gm/dL Hct (34.0-46.0) % MCV (80.0-100.0) fL MCH (25.0-35.0) pg MCHC (31.0-37.0) g/dL RDW (11.5-15.5) % Plt Count (150-450) k/uL MPV Neutrophils % % Lymphocytes % % Monocytes % % Eosinophils % % Basophils % % Neutrophils # (1.3-7.7) k/uL Lymphocytes # (1.0-4.8) k/uL Monocytes # (0-1.0) k/uL Eosinophils # (0-0.7) k/uL Basophils # (0-0.2) k/uL Hypochromasia Anisocytosis Macrocytosis PT (9.0-12.0) sec INR (<1.2) APTT (22.0-30.0) sec Sodium 143 (137-145) mmol/L Potassium 4.0 (3.5-5.1) mmol/L Chloride 110 H (98-107) mmol/L Carbon Dioxide 19 L (22-30) mmol/L Anion Gap 14 mmol/L BUN 19 H (7-17) mg/dL Creatinine 0.75 (0.52-1.04) mg/dL Est GFR (CKD-EPI)AfAm 88 (>60 ml/min/1.73 sqM) Est GFR (CKD-EPI)NonAf 76 (>60 ml/min/1.73 sqM) Glucose 223 H (74-99) mg/dL POC Glucose (mg/dL) (75-99) mg/dL POC Glu [employer] Class ID Calcium 10.1 (8.4-10.2) mg/dL Total Bilirubin 0.9 (0.2-1.3) mg/dL AST 38 H (14-36) U/L ALT 20 (4-34) U/L Alkaline Phosphatase 118 (38-126) U/L Troponin I <0.012 (0.000-0.034) ng/mL Total Protein 6.9 (6.3-8.2) g/dL Albumin 4.4 (3.5-5.0) g/dL - Medical Decision Making Upon arrival patient is promptly placed into trauma bay 1. A thorough history and physical exam is performed. NIH is performed and patient had a score of 5. She is sent over for CT of her brain as well as CT angiography. Laboratory studies are reviewed. CT brain demonstrates age-related atrophic and chronic small vessel ischemic change without acute process seen. CT angiography demonstrates no significant diameter reduction. Results are discussed with the patient. She is not a TPA candidate at this time due to active anticoagulation and recent ischemic CVA. Patient will be admitted to Dr. Farooq. He does present to the emergency room to evaluate the patient. She is taking the floor in stable condition 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, VARICOSE VEINS, GOUT, LYMPHOMA (HX OF CHEMO & RADIATION 1977,1982 & 1993), hx migraines, hx ulcer, constipation, "red spots all over", states difficulty swall owing & having acid reflux., back pain-uses walker., States toenail was "cut back " yesterday 09/19/20, hammer toes. History of Any Multi-Drug Resistant Organisms: None Reported Past Surgical History: Appendectomy, Back Surgery, Breast Surgery, Cholec ystectomy, Hysterectomy, Joint Replacement, Orthopedic Surgery, Tonsillectomy Additional Past Surgical History / Comment(s): RIGHT HIP REPAIR, german KNEE REPLACEMENT, rods german thumbs and rt 3rd toe, BREAST & AXILLARY BX, TUMOR IN THROAT REMOVED., CERVICAL FUSION, LUMBAR LAMINECTOMY,DECOMPRESSION-FUSION L1- L2., recent back surgery for nerve and tendons, german cataracts Past Anesthesia/Blood Transfusion Reactions: No Reported Reaction Additional Past Anesthesia/Blood Transfusion Reaction / Comment(s): CLAUSTROPHOBIA Past Psychological History: Anxiety, Depression Smoking Status: Never smoker Past Alcohol Use History: None Reported Past Drug Use History: None Reported - Past Family History Father Family Medical History: Deep Vein Thrombosis (DVT), Pulmonary Embolus Additional Family Medical History / Comment(s): Father at age 32 from pulmonary embolism. Mother Family Medical History: Cancer Additional Family Medical History / Comment(s): breast Brother(s) Family Medical History: Cancer, Deep Vein Thrombosis (DVT) Additional Family Medical History / Comment(s): 2 brothers that have passed one from myocardial infarction and one from pulmonary embolism. 2 brothers are alive and one has lung cancer, one brother is alive with a brain aneurysm and CVA. Course Vital Signs 02/13/21 02/13/21 02/13/21 15:27 16:12 17:56 Temperature 97.9 F Pulse Rate 116 H 107 H Respiratory 22 16 18 Rate Blood Pressure 156/85 163/97 Blood Pressure 139/75 [Right Arm] O2 Sat by Pulse 100 100 98 Oximetry 02/13/21 18:22 Temperature Pulse Rate 103 H Respiratory 16 Rate Blood Pressure 131/90 Blood Pressure [Right Arm] O2 Sat by Pulse 97 Oximetry - Reevaluation(s) Reevaluation #1: I spoke with Dr. Moore. He states that as the patient is on anticoagulation with the recent ischemic CVA that she would not be a candidate for TPA at this time as he is concerned for conversion to hemorrhagic stroke 02/13/21 16:08 Disposition Clinical Impression: Cerebrovascular accident (CVA), Right hemiparesis Disposition: ADMITTED IP TO THIS [facility] Condition: Stable Is patient prescribed a controlled substance at d/c from ED?: No Decision to Admit Reason: Admit from EC Decision Date: 02/13/21 Decision Time: 17:38
[2021-02-13 17:12] LABS: Partial Thromboplastin Time 23.4 sec (22.0-30.0); Prothrombin Time 10.4 sec (9.0-12.0)
--- NOTE | 2021-02-13 17:52 | XR ---
EXAMINATION: XR chest 2V DATE AND TIME: 02/13/2021 5:47 PM CLINICAL INDICATION: PHH; altered mental status TECHNIQUE: Departmental protocol COMPARISON: 12/27/2020 FINDINGS: The lungs are clear. The pleural spaces are negative. The cardiac silhouette is not enlarged. The remainder of the mediastinal silhouette is unremarkable. The skeletal structures and soft tissues are negative for acute findings. IMPRESSION: No acute radiographic process.
[2021-02-13] MEDS: ASPIRIN 325 MG TAB PO SCH (18:23)
[2021-02-13] MEDS: GABAPENTIN 300 MG CAP PO SCH (20:09)
[2021-02-13] MEDS: ATORVASTATIN 40 MG TAB PO SCH (20:09)
[2021-02-13] MEDS: atenoloL 50 MG TAB PO SCH (20:09)
[2021-02-13] MEDS: HYDROcodone/APAP 10-325MG 1 EACH TAB PO PRN (20:09)
[2021-02-13 20:20] LABS: Glucose,Whole Blood 144 mg/dL (75-99)
[2021-02-13] MEDS: TEMAZEPAM 15 MG CAP PO SCH (23:16)
[2021-02-13] MEDS: NITROFURANTOIN MONOHYD/M-CRYST 100 MG CAP PO SCH (23:16)
[2021-02-13] MEDS: rOPINIRole HCL 4 MG TABLET PO SCH (23:16)
[2021-02-14] MEDS: LEVOTHYROXINE 25 MCG TAB PO SCH (06:08)
[2021-02-14 06:10] LABS: Glucose,Whole Blood 129 mg/dL (75-99)
[2021-02-14] MEDS: ASPIRIN 325 MG TAB PO SCH (08:11)
[2021-02-14] MEDS: GABAPENTIN 300 MG CAP PO SCH ×3 (08:11→21:27)
[2021-02-14] MEDS: HYDROcodone/APAP 10-325MG 1 EACH TAB PO PRN ×2 (08:12→17:49)
[2021-02-14] MEDS: atenoloL 50 MG TAB PO SCH ×2 (08:13→21:26)
[2021-02-14] MEDS: allopurinoL 100 MG TAB PO SCH (08:13)
[2021-02-14] MEDS: DULoxetine HCL 60 MG CAPSULE.DR PO SCH (08:13)
[2021-02-14] MEDS: NITROFURANTOIN MONOHYD/M-CRYST 100 MG CAP PO SCH (08:18)
[2021-02-14] MEDS ORDERED: APIXABAN 5 MG TAB PO SCH (09:00)
[2021-02-14] MEDS ORDERED: ASPIRIN 81 MG PO SCH (09:00)
--- NOTE | 2021-02-14 10:10 | P.CNNES ---
History of Present Illness Consult date: 02/14/21 Requesting physician: Crystal Ocampo Reason for Consult: acute right foot paresis. Suspected CVA History of Present Illness: This is a 81-year-old woman with medical history of stroke (bilateral hemispheric, right cerebellar and seem etiology due to right brachiocephalic occlusion/stenosis status post balloon angioplasty and stenting on 01/01/2021), subclavian steal syndrome, history of DVT on Eliquis, diabetes mellitus non- Hodgkin's lymphoma diagnosed in 1993 status post chemotherapy and radiation, hypertension, hyperlipidemia, chronic lower back pain getting epidural injection, T12 to L2 fusion and decompression in March 2020 who presented emergency department on 02/13/2021 because of weakness in the right lower extremity which occurred around 2 PM that same day. She stated that she was shopping with her daughter and all of a sudden she felt that she had worsening of the her baseline right lower extremity weakness. She also stated that the she is having the difficulty getting her words out when that her daughter assisted her otherwise she denies of any new numbness, visual disturbance, any other weakness, any headache, any difficulty swallowing. She stated that she has this chronic lower back pain and it goes to the right hip but has not been getting worse. She does state that she has a history of right foot drop in the past prior to this episode but she said that this right leg weakness is worse than baseline now. Her difficulty getting her words out as resolved. Patient on medication consist of Lipitor 40 mg daily, Eliquis 5 mg 1 tablet twice a day, ropinirole, Synthroid, gabapentin 3 mg 1 tablet twice a day, atenolol rate patient stated that she was recently taken off of Plavix. Some of the workup in the hospital consisted of: Initial vital signs was blood pressure 156/85, heart rate 160, temperature of 97.9 Fahrenheit oral, respiratory of 22, pulse ox 100% room air. CT of the head is reported as age-related atrophic and chronic small vessel ischemic change without acute intracranial process seen at this time. CT angiography of the head and neck was reported as no cigarette diameter reduction to account for the patient's symptoms and no abnormality seen. CBC with differential seems unremarkable. Chemistry panel is the initial POC glucose is 190 which is elevated, AST 38 which is minimally elevated. Coagulation study. PT of 10.4, INR of 1.0, PTT of 23.4. Stroke code was activated and the ED team spoke with Dr. Moore. She did not get TPA since the patient is on anticoagulation since the patient has a recent history of stroke in the 2020 and there is concern for hemorrhagic conversion. Review of Systems Review of system: The 12 point system was reviewed and apparent positive and negative per HPI. 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, VARICOSE VEINS, GOUT, LYMPHOMA (HX OF CHEMO & RADIATION 1977,1982 & 1993), hx migraines, hx ulcer, constipation, "red spots all over", states difficulty swallowing & having acid reflux., back pain-uses walker., States toenail was "cut back " yesterday 09/19/20, hammer toes. History of Any Multi-Drug Resistant Organisms: None Reported Past Surgical History: Appendectomy, Back Surgery, Breast Surgery, Cholecystectomy, Hysterectomy, Joint Replacement, Orthopedic Surgery, Tonsillectomy Additional Past Surgical History / Comment(s): RIGHT HIP REPAIR, german KNEE REPLA CEMENT, rods german thumbs and rt 3rd toe, BREAST & AXILLARY BX, TUMOR IN THROAT REMOVED., CERVICAL FUSION, LUMBAR LAMINECTOMY,DECOMPRESSION-FUSION L1-L2., recent back surgery for nerve and tendons, german cataracts, Angioplasty with Dr. Mortensen on 01/01/21 and pt stroked 5 x after. Past Anesthesia/Blood Transfusion Reactions: No Reported Reaction Additional Past Anesthesia/Blood Transfusion Reaction / Comment(s): CLAUSTROPHOBIA Past Psychological History: Anxiety, Depression Additional Psychological History / Comment(s): (end of 2019) Smoking Status: Never smoker Past Alcohol Use History: None Reported Additional Past Alcohol Use History / Comment(s): . Past Drug Use History: None Reported - Past Family History Father Family Medical History: Deep Vein Thrombosis (DVT), Pulmonary Embolus Additional Family Medical History / Comment(s): Father at age 32 from pulmonary embolism. Mother Family Medical History: Cancer Additional Family Medical History / Comment(s): breast Brother(s) Family Medical History: Cancer, Deep Vein Thrombosis (DVT) Additional Family Medical History / Comment(s): 2 brothers that have passed one from myocardial infarction and one from pulmonary embolism. 2 brothers are alive and one has lung cancer, one brother is alive with a brain aneurysm and C [facility]. Medications and Allergies Home Medications Medication Instructions Recorded Confirmed Type Calcium Carb-Vit D 500Mg-5Mcg 1 tab PO DAILY 01/05/14 02/13/21 History [Oscal 500+D 5 Mcg (200 Iu)] allopurinoL [Zyloprim] 100 mg PO DAILY 01/05/14 02/13/21 History Levothyroxine Sodium [Synthroid] 12.5 mcg PO DAILY 03/16/14 02/13/21 History Alpha Lipoic Acid 600 mg PO DAILY 07/03/20 02/13/21 History Gabapentin [Neurontin] 300 mg PO TID 07/03/20 02/13/21 History Ipratropium Alexis 0.06%Nasal 2 spr EA NOSTRIL BID 07/03/20 02/13/21 History [Atrovent Nasal 0.06%] Biotin 10 mg PO DAILY 07/15/20 02/13/21 History HYDROcodone/APAP 10-325MG [[place] 1 tab PO BID PRN 07/15/20 02/13/21 History 10-325] Dexlansoprazole [Dexilant] 60 mg PO DAILY 08/07/20 02/13/21 History Empaglifloz/Linaglip/Metformin 1 tab PO DAILY 09/20/20 02/13/21 History [Trijardy Xr 25-5-1,000 mg Tab] Apixaban [Eliquis] 5 mg PO BID 10/06/20 02/13/21 History Temazepam [Restoril] 15 mg PO HS 10/06/20 02/13/21 History methocarbamoL [Robaxin] 500 mg PO TID PRN 12/03/20 02/13/21 History rOPINIRole HCL [Requip] 2 mg PO BID@0800,1200 12/03/20 02/13/21 History Cholecalciferol [Vitamin D3 (25 25 mcg PO DAILY 12/17/20 02/13/21 History Mcg = 1000 Iu)] DULoxetine HCL [Cymbalta] 60 mg PO DAILY 12/17/20 02/13/21 History Estradiol Cream [Estrace Cream 1 gm VAGINAL SUTH 12/17/20 02/13/21 History 0.01%] Nuno-E 1000mg 1,000 mg PO DAILY 12/17/20 02/13/21 History Atorvastatin [Lipitor] 40 mg PO HS 12/27/20 02/13/21 History rOPINIRole HCL [Requip] 4 mg PO HS 12/27/20 02/13/21 History Loperamide [Imodium] 2 mg PO TID PRN 12/30/20 02/13/21 History Clopidogrel [Plavix] 75 mg PO DAILY #30 tab 01/06/21 02/13/21 Rx Atenolol [Tenormin] 50 mg PO BID 02/13/21 02/13/21 History Collagenase [Santyl] 1 applic TOPICAL DAILY 02/13/21 02/13/21 History Nitrofurantoin Monohyd/M-Cryst 100 mg PO DAILY 02/13/21 02/13/21 History [Macrobid] Psyllium Husk (with Sugar) 6 gm PO BID 02/13/21 02/13/21 History [Metamucil Powder] Allergies Allergy/AdvReac Type Severity Reaction Status Date / Time adhesive Allergy red skin, Verified 02/13/21 17:33 blisters cefaclor [From Ceclor] Allergy Rash/Hives Verified 02/13/21 17:33 ciprofloxacin [From Cipro] Allergy Rash/Hives Verified 02/13/21 17:33 ciprofloxacin HCl Allergy Rash/Hives Verified 02/13/21 17:33 [From Cipro] hydromorphone HCl Allergy Anaphylaxis Verified 02/13/21 17:33 [From Dilaudid] Penicillins Allergy Rash/Hives Verified 02/13/21 17:33 clindamycin AdvReac Nausea & Verified 02/13/21 17:33 Vomiting sulfamethoxazole AdvReac Abdominal Verified 02/13/21 17:33 [From Bactrim] Pain trimethoprim [From Bactrim] AdvReac Abdominal Verified 02/13/21 17:33 Pain Physical Examination - Vital Signs Vital Signs: Vital Signs Temp Pulse Pulse Resp BP BP Pulse Ox 02/13/21 20:00 98.1 F 103 H 18 127/68 99 02/13/21 18:22 103 H 16 131/90 97 02/13/21 17:56 18 139/75 98 02/13/21 16:12 107 H 16 163/97 100 02/13/21 15:27 97.9 F 116 H 22 156/85 100 Intake and Output 02/13/21 02/13/21 02/13/21 06:59 14:59 22:59 Other: Voiding Method Bedpan Weight 62.596 kg GENERAL: The patient is lying in bed and is not in acute distress. CHEST: The heart rate is regular rate rhythm. No murmurs to auscultation. No carotid bruit bilaterally. LUNG: Clear to auscultation bilaterally no wheezing noted throughout. Not labored breathing. ABDOMEN/GI: Bowel sounds present in all 4 quadrants. No tenderness to palpation throughout. NEUROLOGICAL: Higher mental function: The patient is awake, alert, oriented to self, place and time. Patient is following commands. No aphasia and no neglect. Cranial nerves: The pupils are round, equal and reactive to light and accommodation. Visual trotter are full to confrontation throughout. Extraocular movement is intact no nystagmus is noted. Facial sensation is normal to touch throughout. The facial strength is slight left nasolabial flattening (old). H earing is mild decreasd bilaterally to hand rub. Tongue is midline and moved [id number] without any difficulty. No dysarthria is noted. Shoulder shrug is normal bilaterally. Motor: Gait is deferred. The strength is right lower extremity is 2-3/5 over the thigh and knee while right ankle is 2 ankle dorsiflexion and 2-3 plantar flexion. Bilateral hand cause analyst are 5- bilaterally. Otherwise 5/5 throughout. Has edema of the right lower extremity mostly the knee. Has scars over bilateral knees (from old surgery). Decrease tone over the right ankle. Otherwise normal tone and bulk. Cerebellum: Normal finger to nose bilaterally. Sensation: Sensation is decrease to touch over the right lower (old per patient). Otherwise normal throughout. Reflexes (right/left): 2+ throughout except right patellar could not assess because of pain and bilateral ankles are 1-2+ Plantars are mute bilaterally. Results - Laboratory Findings CBC and BMP: 02/13/21 15:52 02/13/21 15:52 Abnormal Lab Findings: Abnormal Labs 02/13/21 02/13/21 02/13/21 15:48 15:52 15:52 RDW 17.0 H Chloride 110 H Carbon Dioxide 19 L BUN 19 H Glucose 223 H POC Glucose (mg/dL) 190 H AST 38 H 02/13/21 20:19 RDW Chloride Carbon Dioxide BUN Glucose POC Glucose (mg/dL) 144 H AST Assessment and Plan Assessment: * Acute right lower extremity weakness (worsening than her baseline). Rule out stroke rule vs lumbar etiology/compression * History of stroke in 12/2020 bilateral hemispheric, right cerebellar and seem etiology due to right brachiocephalic occlusion/stenosis status post balloon angioplasty and stenting on 01/01/2021 * History of subclavian steal syndrome * DVT on Eliquis * Diabetes mellitus * Hypertension * Hyperlipidemia * Chronic lower back pain getting epidural injection and has T12 to L2 fusion decompression Plan: * The patient was started on Eliquis 5 mg 1 tablet twice a day and I stopped it until we get MRI Brain to avoid any hemorrhagic conversion. She was started on Aspirin 325mg daily by the ED team. I decreased ASA to 81mg daily and added Plavix 75mg daily. * Continue Lipitor 40 mg daily for secondary stroke prophylaxis. * I ordered MRI of the brain and limited 2D echo (limited). If MRI Brain is negative for stroke will possible consider MRI Lumbar. * Lipid panels ordered and is pending * PT OT and LEAD MINER are consulted * Ordered venous duplex and arterial duplex of the right lower extremity. * Vascular surgery team is consulted * Cardiology team is consulted as well. * Every 4 hours neuro checks * On Continue cardiac monitoring * We'll defer the rest of medical management to the primary team. The plan is discussed with the patient's nurse. Thank you for consultation Jesus Villarreal M.D. Neuro-hospitalist Time with Patient: Greater than 30
--- NOTE | 2021-02-14 10:18 | US ---
EXAMINATION TYPE: US venous doppler duplex LE RT DATE OF EXAM: 02/14/2021 9:24 AM COMPARISON: US 2019 CLINICAL HISTORY: edema; r/o dvt. Right leg swelling, patient on blood thinners SIDE PERFORMED: Right TECHNIQUE: The lower extremity deep venous system is examined utilizing real time linear array sonog [place] with graded compression, doppler sonography and color-flow sonography. VESSELS IMAGED: Common Femoral Vein Deep Femoral Vein Greater Saphenous Vein * Femoral Vein Popliteal Vein Small Saphenous Vein * Proximal Calf Veins (* superficial vessels) Right Leg: Appears negative for DVT Grayscale, color doppler, spectral doppler imaging performed of the deep veins of the lower extremiti es. There is normal flow, compressibility, vascular waveforms. IMPRESSION: No sonographic evidence for DVT in the right lower extremity.
--- NOTE | 2021-02-14 11:03 | ECHOF ---
Referral Reason:limited. stroke MEASUREMENTS -------- HEIGHT: 157.5 cm WEIGHT: 64.0 kg BP: 126/67 AV maxP.98 mmHg AV meanP.39 mmHg FINDINGS -------- Sinus rhythm. Limited Study Overall left ventricular systolic function is normal with, an EF between 55 - 60 %. There is moderate aortic valve sclerosis. There is mild aortic stenosis present. Peak/mean gradie nt across the Aortic Valve is 24.98mmHg / 13.39mmHg. There is no pericardial effusion. CONCLUSIONS -------- 1. Limited Study 2. Overall left ventricular systolic function is normal with, an EF between 55 - 60 %. 3. There is moderate aortic valve sclerosis. 4. There is mild aortic stenosis present. 5. Peak/mean gradient across the Aortic Valve is 24.98mmHg / 13.39mmHg. 6. There is no pericardial effusion. HANGER: Barbie Whaley RDCS
--- NOTE | 2021-02-14 11:14 | MR ---
EXAMINATION TYPE: MR brain wo con DATE OF EXAM: 02/14/2021 COMPARISON: 01/02/2021 HISTORY: Right foot weakness, Rule out CVA CONTRAST: Performed utilizing 0 mL intravenous Gadavist gadolinium contrast. TECHNIQUE: Multiplanar, multiecho imaging on a 3.0 Xiomy magnet is performed through the brain. Stud y is performed within 24 hours of arrival to the hospital. The craniovertebral junction is normal. The pituitary is normal. Optic chiasm is normal. Diffusion-weighted imaging is performed. No abnormal hyperintensity is present to suggest an acute i ntracranial infarct or acute ischemic change. There is a large area of white left centrum semiovale above the posterior left lateral ventricle was present previously and can be compatible with chronic white matter ischemic changes. This is not neisha dent on diffusion-weighted imaging and is present previously. This appears somewhat smaller currently can be compatible some old ischemic change. Some chronic cortical white matter change may be in the inferior right occipital lobe, present previo usly. Couple of punctate subcortical white matter changes are in the right centrum semiovale likely c hronic white matter ischemic changes. Some minimal cortical millard matter changes may be at the right c entrum semiovale vertex. Ventricles and sulci are appropriate for the patient age. IMPRESSIONS: 1. Chronic appearing white matter changes, the largest within the right cerebellum is somewhat smalle r than comparison. Remaining white matter changes and some cortical change at the right vertex are st able from comparison. 2. No new suspicious acute ischemic changes evident.
[2021-02-14 11:36] LABS: Glucose,Whole Blood 119 mg/dL (75-99)
--- NOTE | 2021-02-14 11:46 | P.HPIM ---
History of Present Illness H&P Date: 02/13/21 HISTORY OF PRESENT ILLNESS 81-year-old female one of Dr. Rocha patient with multiple medical problem known to have history of multiple stroke with bilateral hemisphere involvement last time was in 01/01/2021 after she had procedure for brachial occlusion post balloon angioplasty and stent developed to have stroke had affected the right side patient was the hospital for a few days was discharged home afterward has been doing well has been on Eliquis was post to be on Plavix originally which patient has not been taking Plavix since. Patient had history of non-Hodgkin lymphoma had severe chronic lower back pain post multiple lipid urine injection along with to fusion of the thoracic and lumbar spine by Dr. Plummer in town last one was over 6 month ago each patient has not done well mobility galeas dependency. Patient was in rehab for long time. Since her recovering from stroke over 6 weeks ago patient has been doing well apparently was shopping with her family today when around 2:00 in the afternoon developed to have significant weakness of the right side mostly in the leg and the arm and felt extremely weak she lost her balance and almost fell down her family had help her. Patient was transported [facility] continue to have significant weakness the right side had slight visual disturbance without any other stroke finding. Patient right-sided weakness improved some but continued to be still significant compared to the other side. CAT scan of the brain didn't show any bleed at the time, patient blood sugar was mildly elevated the rest of her lab did not show any abnormality. CT of the brain showed age- related atrophy with chronic small vessel ischemic without any acute intracranial processes seen, CTA of the head and neck shows no major abnormality with her carotid without any change in into or extracranial circulation. Patient will be admitted to the hospital be seen neurology MRI of the brain will be done patient be started back on PTOT. REVIEW OF SYSTEMS Constitutional: No fever, no chills, no night sweats. No weight change. Reports weakness, reports fatigue denies lethargy. No daytime sleepiness. EENT: No headache. No blurred vision or double vision, no loss of vision. No loss of Hearing, no ringing in the ears, Reports dizziness. No nasal drainage or congestion. No epistaxis. No sore throat. Lungs: Denies shortness of breath, cough, no sputum production. No wheezing. Cardiovascular: No chest pain, no left lower extremity edema. No palpitations. No paroxysmal nocturnal dyspnea. No orthopnea. No lightheadedness or dizziness. No syncopal episodes. Abdominal: No abdominal pain. No nausea, vomiting. No diarrhea. No constipation. No bloody or tarry stools.. No loss of appetite. Genitourinary: No dysuria, increased frequency, urgency. No urinary retention. Reports incontinence, loss of bladder control Musculoskeletal: No myalgias. Reports muscle weakness, reports gait dysfunction, reports 2 falls. Reports back pain. No neck pain. Integumentary: No wounds, no lesions. No rash or pruritus. No unusual bruising. Slight purple color of the fingertip with possibility of arterial thrombus. Neurologic: No aphasia. No facial droop. No change in mentation. No head injury. No headache. No paralysis. No paresthesia. Psychiatric: No depression. No anxiety. No mood swings. Endocrine: No abnormal blood sugars. SOCIAL HISTORY Patient is a lifelong nonsmoker. No alcohol use, marijuana use, illicit drug use. 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 Patient lives alone with her daughter. She ambulates with a walker. She has been at [facility] for subacute rehab in the past. FAMILY HISTORY Mother in her late 80s from breast cancer and dementia. Father at age 32 from pulmonary embolism and DVT. Patient has 2 brothers and a past, one from myocardial infarction and one from pulmonary embolism. 2 brothers are alive and one has lung cancer and one living brother has a brain aneurysm and CVA. Patient has 5 biological children with no major medical problems. PHYSICAL EXAMINATION Gen: This is A 80-year-old female. Patient is resting in bed appears to be comfortable and in no acute distress. No respiratory distress is noted. HEENT: Head is atraumatic, normocephalic. Pupils equal, round. Sclerae is anicteric. NECK: Supple. No JVD. No lymphadenopathy. No thyromegaly. LUNGS: Clear to auscultation. No wheezes or rhonchi. No intercostal retractions. HEART: Regular rate and rhythm. No murmur. ABDOMEN: Soft. Bowel sounds are present. No masses. Mild right lower quadrant tenderness. BACK: Surgical wound is healed. No drainage, erythema. No deformity noted. EXTREMITIES: No pedal edema. No calf tenderness. Dorsalis pedis palpable bilaterally. Left foot drop, slight discoloration of the color of her fingertip especially the left side with slight discomfort as well. NEUROLOGICAL: Patient is awake, alert and oriented x3. Cranial nerves 2 through 12 are grossly intact. ASSESSMENT AND PLAN 1. CVA with right-sided weakness: It's either use stroke or an extension of her stroke from December, patient be seen neurology, consider to add Plavix patient will be started PTOT MRI of the brain is pending at this point to see if there is any evidence new stroke. 2. Severe right sided weakness mostly in the right lower extremity, not clear if there is any element with her lumbar spine, x-ray and MRI of the L-spine might be done we'll consult with Dr. Plummer as well. 3. Debility: Not been able to ambulate and walk, patient will require PTOT and possible rehab. 4. History of pulmonary embolism: Restart Eliquis 5 mg twice daily by tomorrow morning. 5. Diabetes mellitus type 2. Recheck Hemoglobin A1c. Patient will be on NovoLog scale before meals and at bedtime. 6. Non-Hodgkin's [place] [address] Monaco and follows with Dr. Aranda, in remission. 7. History of TIA with no deficits. 8. 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 Continue gabapentin 300 mg twice daily and 600 at bedtime. 9. Hypertension. Blood pressures well control on atenolol 50 mg twice a day. 10. Hypothyroidism. Continue levothyroxine 12.5 g daily. 11. 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 12. Recurrent depression. Continue Prozac 30 mg daily. 13. Chronic gout. Continue allopurinol 100 mg daily. 14. Hyperlipidemia. Patient is not currently on statin. 15. Restless leg syndrome. Continue Requip. 16. GERD and GI prophylaxis. Protonix CODE STATUS: Full code. Admit patient to the inpatient service for more than 2 night stay. 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, VARICOSE VEINS, GOUT, LYMPHOMA (HX OF CHEMO & RADIATION 1977,1982 & 1993), hx migraines, hx ulcer, constipation, "red spots all over", states difficulty swallowing & having acid reflux., back pain-uses walker., States toenail was "cut back " yesterday 09/19/20, hammer toes. History of Any Multi-Drug Resistant Organisms: None Reported Past Surgical History: Appendectomy, Back Surgery, Breast Surgery, Cholecystectomy, Hysterectomy, Joint Replacement, Orthopedic Surgery, Tonsillectomy Additional Past Surgical History / Comment(s): RIGHT HIP REPAIR, german KNEE REPLACEMENT, rods german thumbs and rt 3rd toe, BREAST & AXILLARY BX, TUMOR IN THROAT REMOVED., CERVICAL FUSION, LUMBAR LAMINECTOMY,DECOMPRESSION-FUSION L1- L2., recent back surgery for nerve and tendons, german cataracts, Angioplasty with Dr. Mortensen on 01/01/21 and pt stroked 5 x after. Past Anesthesia/Blood Transfusion Reactions: No Reported Reaction Additional Past Anesthesia/Blood Transfusion Reaction / Comment(s): CLAUSTROPHOBIA Past Psychological History: Anxiety, Depression Additional Psychological History / Comment(s): (end of 2019) Smoking Status: Never smoker Past Alcohol Use History: None Reported Additional Past Alcohol Use History / Comment(s): . Past Drug Use History: None Reported - Past Family History Father Family Medical History: Deep Vein Thrombosis (DVT), Pulmonary Embolus Additional Family Medical History / Comment(s): Father at age 32 from pulmonary embolism. Mother Family Medical History: Cancer Additional Family Medical History / Comment(s): breast Brother(s) Family Medical History: Cancer, Deep Vein Thrombosis (DVT) Additional Family Medical History / Comment(s): 2 brothers that have passed one from myocardial infarction and one from pulmonary embolism. 2 brothers are alive and one has lung cancer, one brother is alive with a brain aneurysm and CVA. Medications and Allergies Home Medications Medication Instructions Recorded Confirmed Type Calcium Carb-Vit D 500Mg-5Mcg 1 tab PO DAILY 01/05/14 02/13/21 History [Oscal 500+D 5 Mcg (200 Iu)] allopurinoL [Zyloprim] 100 mg PO DAILY 01/05/14 02/13/21 History Levothyroxine Sodium [Synthroid] 12.5 mcg PO DAILY 03/16/14 02/13/21 History Alpha Lipoic Acid 600 mg PO DAILY 07/03/20 02/13/21 History Gabapentin [Neurontin] 300 mg PO TID 07/03/20 02/13/21 History Ipratropium [place] 0.06%Nasal 2 spr EA NOSTRIL BID 07/03/20 02/13/21 History [Atrovent Nasal 0.06%] Biotin 10 mg PO DAILY 07/15/20 02/13/21 History HYDROcodone/APAP 10-325MG [[place] 1 tab PO BID PRN 07/15/20 02/13/21 History 10-325] Dexlansoprazole [Dexilant] 60 mg PO DAILY 08/07/20 02/13/21 History Empaglifloz/Linaglip/Metformin 1 tab PO DAILY 09/20/20 02/13/21 History [Trijardy Xr 25-5-1,000 mg Tab] Apixaban [Eliquis] 5 mg PO BID 10/06/20 02/13/21 History Temazepam [Restoril] 15 mg PO HS 10/06/20 02/13/21 History methocarbamoL [Robaxin] 500 mg PO TID PRN 12/03/20 02/13/21 History rOPINIRole HCL [Requip] 2 mg PO BID@0800,1200 12/03/20 02/13/21 History Cholecalciferol [Vitamin D3 (25 25 mcg PO DAILY 12/17/20 02/13/21 History Mcg = 1000 Iu)] DULoxetine HCL [Cymbalta] 60 mg PO DAILY 12/17/20 02/13/21 History Estradiol Cream [Estrace Cream 1 gm VAGINAL SUTH 12/17/20 02/13/21 History 0.01%] Nuno-E 1000mg 1,000 mg PO DAILY 12/17/20 02/13/21 History Atorvastatin [Lipitor] 40 mg PO HS 12/27/20 02/13/21 History rOPINIRole HCL [Requip] 4 mg PO HS 12/27/20 02/13/21 History Loperamide [Imodium] 2 mg PO TID PRN 12/30/20 02/13/21 History Clopidogrel [Plavix] 75 mg PO DAILY #30 tab 01/06/21 02/13/21 Rx Atenolol [Tenormin] 50 mg PO BID 02/13/21 02/13/21 History Collagenase [Santyl] 1 applic TOPICAL DAILY 02/13/21 02/13/21 History Nitrofurantoin Monohyd/M-Cryst 100 mg PO DAILY 02/13/21 02/13/21 History [Macrobid] Psyllium Husk (with Sugar) 6 gm PO BID 02/13/21 02/13/21 History [Metamucil Powder] Allergies Allergy/AdvReac Type Severity Reaction Status Date / Time adhesive Allergy red skin, Verified 02/13/21 17:33 blisters cefaclor [From Ceclor] Allergy Rash/Hives Verified 02/13/21 17:33 ciprofloxacin [From Cipro] Allergy Rash/Hives Verified 02/13/21 17:33 ciprofloxacin HCl Allergy Rash/Hives Verified 02/13/21 17:33 [From Cipro] hydromorphone HCl Allergy Anaphylaxis Verified 02/13/21 17:33 [From Dilaudid] Penicillins Allergy Rash/Hives Verified 02/13/21 17:33 clindamycin AdvReac Nausea & Verified 02/13/21 17:33 Vomiting sulfamethoxazole AdvReac Abdominal Verified 02/13/21 17:33 [From Bactrim] Pain trimethoprim [From Bactrim] AdvReac Abdominal Verified 02/13/21 17:33 Pain Physical Exam Vitals: Vital Signs Temp Pulse Pulse Resp BP BP Pulse Ox 02/13/21 20:00 98.1 F 103 H 18 127/68 99 02/13/21 18:22 103 H 16 131/90 97 02/13/21 17:56 18 139/75 98 02/13/21 16:12 107 H 16 163/97 100 02/13/21 15:27 97.9 F 116 H 22 156/85 100 Intake and Output 02/13/21 02/13/21 02/13/21 06:59 14:59 22:59 Other: Voiding Method Bedpan # Voids 1 Weight 62.596 kg Results CBC & Chem 7: 02/13/21 15:52 02/13/21 15:52 Labs: Abnormal Lab Results - Last 24 Hours (Table) 02/13/21 02/13/21 02/13/21 Range/Units 15:48 15:52 15:52 RDW 17.0 H (11.5-15.5) % Chloride 110 H (98-107) mmol/L Carbon Dioxide 19 L (22-30) mmol/L BUN 19 H (7-17) mg/dL Glucose 223 H (74-99) mg/dL POC Glucose (mg/dL) 190 H (75-99) mg/dL AST 38 H (14-36) U/L 02/13/21 Range/Units 20:19 RDW (11.5-15.5) % Chloride (98-107) mmol/L Carbon Dioxide (22-30) mmol/L BUN (7-17) mg/dL Glucose (74-99) mg/dL POC Glucose (mg/dL) 144 H (75-99) mg/dL AST (14-36) U/L Thrombosis Risk Factor Assmnt - Choose All That Apply Any of the Below Risk Factors Present?: Yes Each Risk Factor Represents 3 Points: Age 75 years or older, History of DVT/PE Each Risk Factor Represents 5 Points: Stroke (< 1 month) Thrombosis Risk Factor Assessment Total Risk Factor Score: 11 Thrombosis Risk Factor Assessment Level: High Risk
--- NOTE | 2021-02-14 11:54 | P.CRDCN ---
History of Present Illness Consult date: 02/14/21 Requesting physician: Carlos Enrique Farooq Reason for Consult (text): r/o CVA Chief complaint: numb and weak right lower extremity History of present illness: This is a pleasant 81-year-old female patient who follows with Dr. Pak in the office. She is a history of hypertension, hyperlipidemia, diabetes, DVT and PE, anticoagulated on Eliquis, factor V Leiden deficiency and non-Hodgkin's lymphoma for which she follows with Dr. Aranda history of prior TIA and CVA and recent angioplasty and stenting of the right brachiocephalic artery by Dr. Mortensen. She also has a history of She presented to the emergency department with complaints of right lower extremity numbness and weakness. She says she was doing some shopping and using an electric cart and she felt her face become tingly, had difficulty lifting her right leg with complaints of numbness and weakness. She also complained of some difficulties finding her words however has had this issue since her last stroke. She has some right upper extremity weakness but this has been gradually improving since stenting done in early December. Computed tomography scan of the brain showed age-related atrophic and chronic small vessel ischemic change without acute intracranial process. CTA of the head and neck showed significant abnormality. Chest x-ray showed no acute process. Telemetry shows sinus mechanism with tachycardia which has been an ongoing issue for the patient. Recent event monitor showed sinus mechanism with episodes of paroxysmal atrial tachycardia but no clear-cut evidence of atrial fibrillation. Recent echocardiogram with Doppler study done early December showed normal ejection fraction with mild aortic stenosis. Echocardiogram for bubble study done in mid December was normal. Blood pressure has been stable and she has been afebrile. She complains of dyspnea on exertion but she has been complaining of over the past year and she is scheduled for Lexiscan MPI to be done in the office early next month. She denies any complaints of chest discomfort. She has no further complaints of right arm pain. She complains of occasional lightheadedness upon standing but no syncope. She has no orthopnea, edema or PND. 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, VARICOSE VEINS, GOUT, LYMPHOMA (HX OF CHEMO & RADIATION 1977,1982 & 1993), hx migraines, hx ulcer, constipation, "red spots all over", states difficulty swallowing & having acid reflux., back pain-uses walker., States toenail was "cut back " yesterday 09/19/20, hammer toes. History of Any Multi-Drug Resistant Organisms: None Reported Past Surgical History: Appendectomy, Back Surgery, Breast Surgery, Cholecystectomy, Hysterectomy, Joint Replacement, Orthopedic Surgery, Tonsillectomy Additional Past Surgical History / Comment(s): RIGHT HIP REPAIR, german KNEE REPLAC EMENT, rods german thumbs and rt 3rd toe, BREAST & AXILLARY BX, TUMOR IN THROAT REMOVED., CERVICAL FUSION, LUMBAR LAMINECTOMY,DECOMPRESSION-FUSION L1-L2., recent back surgery for nerve and tendons, german cataracts Past Anesthesia/Blood Transfusion Reactions: No Reported Reaction Additional Past Anesthesia/Blood Transfusion Reaction / Comment(s): CLAUSTR OPHOBIA Past Psychological History: Anxiety, Depression Smoking Status: Never smoker Past Alcohol Use History: None Reported Past Drug Use History: None Reported - Past Family History Father Family Medical History: Deep Vein Thrombosis (DVT), Pulmonary Embolus Additional Family Medical History / Comment(s): Father at age 32 from pulmonary embolism. Mother Family Medical History: Cancer Additional Family Medical History / Comment(s): breast Brother(s) Family Medical History: Cancer, Deep Vein Thrombosis (DVT) Additional Family Medical History / Comment(s): 2 brothers that have passed one from myocardial infarction and one from pulmonary embolism. 2 brothers are alive and one has lung cancer, one brother is alive with a brain aneurysm and CVA. Medications and Allergies Home Medications Medication Instructions Recorded Confirmed Type Calcium Carb-Vit D 500Mg-5Mcg 1 tab PO DAILY 01/05/14 02/13/21 History [Oscal 500+D 5 Mcg (200 Iu)] allopurinoL [Zyloprim] 100 mg PO DAILY 01/05/14 02/13/21 History Levothyroxine Sodium [Synthroid] 12.5 mcg PO DAILY 03/16/14 02/13/21 History Alpha Lipoic Acid 600 mg PO DAILY 07/03/20 02/13/21 History Gabapentin [Neurontin] 300 mg PO TID 07/03/20 02/13/21 History Ipratropium [place] 0.06%Nasal 2 spr EA NOSTRIL BID 07/03/20 02/13/21 History [Atrovent Nasal 0.06%] Biotin 10 mg PO DAILY 07/15/20 02/13/21 History HYDROcodone/APAP 10-325MG [[place] 1 tab PO BID PRN 07/15/20 02/13/21 History 10-325] Dexlansoprazole [Dexilant] 60 mg PO DAILY 08/07/20 02/13/21 History Empaglifloz/Linaglip/Metformin 1 tab PO DAILY 09/20/20 02/13/21 History [Trijardy Xr 25-5-1,000 mg Tab] Apixaban [Eliquis] 5 mg PO BID 10/06/20 02/13/21 History Temazepam [Restoril] 15 mg PO HS 10/06/20 02/13/21 History methocarbamoL [Robaxin] 500 mg PO TID PRN 12/03/20 02/13/21 History rOPINIRole HCL [Requip] 2 mg PO BID@0800,1200 12/03/20 02/13/21 History Cholecalciferol [Vitamin D3 (25 25 mcg PO DAILY 12/17/20 02/13/21 History Mcg = 1000 Iu)] DULoxetine HCL [Cymbalta] 60 mg PO DAILY 12/17/20 02/13/21 History Estradiol Cream [Estrace Cream 1 gm VAGINAL SUTH 12/17/20 02/13/21 History 0.01%] Nuno-E 1000mg 1,000 mg PO DAILY 12/17/20 02/13/21 History Atorvastatin [Lipitor] 40 mg PO HS 12/27/20 02/13/21 History rOPINIRole HCL [Requip] 4 mg PO HS 12/27/20 02/13/21 History Loperamide [Imodium] 2 mg PO TID PRN 12/30/20 02/13/21 History Clopidogrel [Plavix] 75 mg PO DAILY #30 tab 01/06/21 02/13/21 Rx Atenolol [Tenormin] 50 mg PO BID 02/13/21 02/13/21 History Collagenase [Santyl] 1 applic TOPICAL DAILY 02/13/21 02/13/21 History Nitrofurantoin Monohyd/M-Cryst 100 mg PO DAILY 02/13/21 02/13/21 History [Macrobid] Psyllium Husk (with Sugar) 6 gm PO BID 02/13/21 02/13/21 History [Metamucil Powder] Allergies Allergy/AdvReac Type Severity Reaction Status Date / Time adhesive Allergy red skin, Verified 02/13/21 17:33 blisters cefaclor [From Ceclor] Allergy Rash/Hives Verified 02/13/21 17:33 ciprofloxacin [From Cipro] Allergy Rash/Hives Verified 02/13/21 17:33 ciprofloxacin HCl Allergy Rash/Hives Verified 02/13/21 17:33 [From Cipro] hydromorphone HCl Allergy Anaphylaxis Verified 02/13/21 17:33 [From Dilaudid] Penicillins Allergy Rash/Hives Verified 02/13/21 17:33 clindamycin AdvReac Nausea & Verified 02/13/21 17:33 Vomiting sulfamethoxazole AdvReac Abdominal Verified 02/13/21 17:33 [From Bactrim] Pain trimethoprim [From Bactrim] AdvReac Abdominal Verified 02/13/21 17:33 Pain Physical Exam Vitals: Vital Signs Temp Pulse Pulse Resp BP BP Pulse Ox 02/14/21 08:00 97.6 F 102 H 16 126/67 100 02/14/21 04:00 98.4 F 90 16 118/62 99 02/14/21 01:29 102 H 18 02/14/21 00:32 108 H 17 02/14/21 00:00 97.9 F 108 H 17 132/68 98 02/13/21 20:00 98.1 F 103 H 18 127/68 99 02/13/21 18:22 103 H 16 131/90 97 02/13/21 17:56 18 139/75 98 02/13/21 16:12 107 H 16 163/97 100 02/13/21 15:27 97.9 F 116 H 22 156/85 100 Intake and Output 02/13/21 02/14/21 02/14/21 22:59 06:59 14:59 Other: Voiding Method Bedpan Bedpan # Voids 1 1 Weight 62.596 kg 64 kg PHYSICAL EXAMINATION: This is a 81-year-old female in no apparent distress at the time of my examination. VITAL SIGNS: Blood pressure 126/67, heart rate 102, respirations 16, temp 97.6F. Patient is on 100 % on room air. HEENT: Head is atraumatic, normocephalic. Pupils are equal, round. Sclerae anicteric. Conjunctivae are clear. Mucous membranes of the mouth are moist. Neck is supple. There is no elevated jugular venous pressure. No carotid bruit is heard. CHEST EXAMINATION: Clear to auscultation bilaterally. No wheezes rales or rhonchi. Respirations even and nonlabored. HEART EXAMINATION: Heart regular, positive S1 and S2. No S3. No S4. With a soft systolic murmur at the base. Tachycardia noted. ABDOMEN: Soft, nontender. Bowel sounds are heard. No organomegaly noted. EXTREMITIES: 2+ peripheral pulses with no evidence of peripheral edema and no calf tenderness noted. NEUROLOGIC EXAMINATION: Patient is awake, alert and oriented x3. As noted with right plantar flexion and dorsiflexion, minimal right sided weakness noted with hand grasp. Results 02/13/21 15:52 02/13/21 15:52 Cardiac Enzymes 02/13/21 02/13/21 Range/Units 15:52 15:52 AST 38 H (14-36) U/L Troponin I <0.012 (0.000-0.034) ng/mL Coagulation 02/13/21 Range/Units 15:52 PT 10.4 (9.0-12.0) sec APTT 23.4 (22.0-30.0) sec CBC 02/13/21 Range/Units 15:52 WBC 7.6 (3.8-10.6) k/uL RBC 4.01 (3.80-5.40) m/uL Hgb 12.6 (11.4-16.0) gm/dL Hct 39.1 (34.0-46.0) % Plt Count 270 (150-450) k/uL Comprehensive Metabolic Panel 02/13/21 Range/Units 15:52 Sodium 143 (137-145) mmol/L Potassium 4.0 (3.5-5.1) mmol/L Chloride 110 H (98-107) mmol/L Carbon Dioxide 19 L (22-30) mmol/L BUN 19 H (7-17) mg/dL Creatinine 0.75 (0.52-1.04) mg/dL Glucose 223 H (74-99) mg/dL Calcium 10.1 (8.4-10.2) mg/dL AST 38 H (14-36) U/L ALT 20 (4-34) U/L Alkaline Phosphatase 118 (38-126) U/L Total Protein 6.9 (6.3-8.2) g/dL Albumin 4.4 (3.5-5.0) g/dL Current Medications Generic Name Dose Route Start Last Admin Trade Name Freq PRN Reason Stop Dose Admin Hydrocodone Bitart/Acetaminophen 1 each 02/13/21 18:16 02/13/21 20:09 Hydrocodone/Apap 10-325mg 1 Each Tab PO 1 each BID PRN Administration Pain Allopurinol 100 mg 02/14/21 09:00 Allopurinol 100 Mg Tab PO DAILY SANTOS Apixaban 5 mg 02/14/21 09:00 Apixaban 5 Mg Tab PO BID [facility] Protocol Aspirin 325 mg 02/13/21 18:30 02/13/21 18:23 Aspirin 325 Mg Tab PO 325 mg DAILY SANTOS Administration Atenolol 50 mg 02/13/21 21:00 02/13/21 20:09 Atenolol 50 Mg Tab PO 50 mg BID SANTOS Administration Atorvastatin Calcium 40 mg 02/13/21 21:00 02/13/21 20:09 Atorvastatin 40 Mg Tab PO 40 mg HS SANTOS Administration Duloxetine HCl 60 mg 02/14/21 09:00 Duloxetine Hcl 60 Mg Capsule.Dr PO DAILY [facility] Gabapentin 300 mg 02/13/21 22:00 02/13/21 20:09 Gabapentin 300 Mg Cap PO 300 mg TID SANTOS Administration Ipratropium [place] 2 spray 02/13/21 21:00 Ipratropium [place] 0.06% Nasal [place] (15 Ml) EA NOSTRIL BID [facility] Levothyroxine Sodium 12.5 mcg 02/14/21 06:30 02/14/21 06:08 Levothyroxine 25 Mcg Tab PO 12.5 mcg DAILY@0630 SANTOS Administration Nitrofurantoin Macrocrystals 100 mg 02/13/21 20:45 02/13/21 23:16 Nitrofurantoin Monohyd/M-Cryst 100 Mg Cap PO 100 mg DAILY SANTOS Administration Ropinirole HCl 4 mg 02/13/21 21:00 02/13/21 23:16 Ropinirole Hcl 4 Mg Tablet PO 4 mg HS SANTOS Administration Ropinirole HCl 2 mg 02/14/21 08:00 Ropinirole Hcl 1 Mg Tab PO BID@0800,1200 SANTOS Temazepam 15 mg 02/13/21 21:00 02/13/21 23:16 Temazepam 15 Mg Cap PO 15 mg HS SANTOS Administration Intake and Output 02/13/21 02/14/21 02/14/21 22:59 06:59 14:59 Other: Voiding Method Bedpan Bedpan # Voids 1 1 Weight 62.596 kg 64 kg 02/13/21 15:52 02/13/21 15:52 Assessment and Plan Assessment: #1 symptoms of right lower extremity numbness and weakness #2 history of CVA #3 hypertension #4 hyperlipidemia #5 diabetes mellitus #6 history of recent angioplasty and stenting of the right brachiocephalic artery #7 history of DVT and PE, anticoagulated on Eliquis #8 history of factor V latent deficiency #9 history of non-Hodgkin's lymphoma #10 history of multiple lumbar spine surgeries Plan: From cardiology's perspective we will decrease aspirin to 81 mg daily. No need to repeat the echocardiogram as this was just done a month ago. Continue anticoagulation. Continue atenolol 50 mg by mouth twice a day and Lipitor 40 mg daily. No need for further cardiac workup at this time. Patient will keep appointment for outpatient stress testing to be done in our office as well as follow up thereafter. We'll follow the patient on an as-needed basis at this time. Please do not hesitate to contact us with questions. FREEZING MACHINE OPERATOR note has been reviewed, I agree with a documented findings and plan of care. Patient was seen and examined.
--- NOTE | 2021-02-14 13:12 | P.CNOR ---
History of Present Illness - [facility] Consult date: 02/14/21 Consult reason: other (Right lower extremity weakness) History of present illness: Patient is a 81-year-old female who presented to [facility] yesterday afternoon after developing severe right lower extremity weakness, right upper extremity weakness and speech difficulty. The patient was out daysi pping with her daughter when the symptoms arose. Patient was utilizing an electric wheelchair, when the symptoms began she was unable to utilize the right leg to stand up. Patient was then brought to [facility] for further evaluation. Upon arrival to the hospital, multiple lab tests and imaging test were done. Images of the head demonstrated no acute hemorrhagic processes. The speech disturbances had improved along with the right upper extremity. Patient underwent a recent right upper extremity procedure by the vascular team here in December 2020, there is residual weakness appreciated. At the time the patient also was determined to have an acute CVA, she has been receiving therapy at home since that time and has noticed significant improvement. Patient has history of multiple cervical and lumbar surgeries, both involving fusions. She underwent a procedure with Dr. Plummer in March 2020, a T12 to L2 decompression and fusion. Prior to the procedure and since then, she has had chronic low back pain. She was noted at that time both prior to and after surgery to have residual right lower extremity weakness. She does use a AFO brace occasionally, she hasn't used it in many months because her symptoms haven't improved. She states that the right lower extremity weakness is different from her baseline. There has been no lumbar imaging ordered at today' s visit. Currently patient denies any headaches, lightheadedness or chest pain. She denies any shortness of breath. She denies any pain or numbness and tingling involving the bilateral upper extremities. She notes pain across the low back against trying down the anterior aspect of her right leg. She denies any left lower extremity symptoms at this time. She denies any nausea vomiting, stomach discomfort. She denies any obvious loss of bowel or bladder function. She denies an peroneal or genital numbness or tingling.y Review of Systems Constitutional: Reports as per HPI 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, VARICOSE VEINS, GOUT, LYMPHOMA (HX OF CHEMO & RADIATION 1977,1982 & 1993), hx migraines, hx ulcer, constipation, "red spots all over", states difficulty swallowing & having acid reflux., back pain-uses walker., States toenail was "cut back " yesterday 09/19/20, hammer toes. History of Any Multi-Drug Resistant Organisms: None Reported Past Surgical History: Appendectomy, Back Surgery, Breast Surgery, Cholecystectomy, Hysterectomy, Joint Replacement, Orthopedic Surgery, Tonsillectomy Additional Past Surgical History / Comment(s): RIGHT HIP REPAIR, german KNEE REPLACEMENT, rods german thumbs and rt 3rd toe, BREAST & AXILLARY BX, TUMOR IN THROAT REMOVED., CERVICAL FUSION, LUMBAR LAMINECTOMY,DECOMPRESSION-FUSION L1- L2., recent back surgery for nerve and tendons, german cataracts, Angioplasty with Dr. Mortensen on 01/01/21 and pt stroked 5 x after. Past Anesthesia/Blood Transfusion Reactions: No Reported Reaction Additional Past Anesthesia/Blood Transfusion Reaction / Comm: CLAUSTROPHOBIA Past Psychological History: Anxiety, Depression Additional Psychological History / Comment(s): (end of 2019) Smoking Status: Never smoker Past Alcohol Use History: None Reported Additional Past Alcohol Use History / Comment(s): . Past Drug Use History: None Reported - Past Family History Father Family Medical History: Deep Vein Thrombosis (DVT), Pulmonary Embolus Additional Family Medical History / Comment(s): Father at age 32 from pulmo nary embolism. Mother Family Medical History: Cancer Additional Family Medical History / Comment(s): breast Brother(s) Family Medical History: Cancer, Deep Vein Thrombosis (DVT) Additional Family Medical History / Comment(s): 2 brothers that have passed one from myocardial infarction and one from pulmonary embolism. 2 brothers are alive and one has lung cancer, one brother is alive with a brain aneurysm and CVA. Medications and Allergies Home Medications Medication Instructions Recorded Confirmed Type Calcium Carb-Vit D 500Mg-5Mcg 1 tab PO DAILY 01/05/14 02/13/21 History [Oscal 500+D 5 Mcg (200 Iu)] allopurinoL [Zyloprim] 100 mg PO DAILY 01/05/14 02/13/21 History Levothyroxine Sodium [Synthroid] 12.5 mcg PO DAILY 03/16/14 02/13/21 History Alpha Lipoic Acid 600 mg PO DAILY 07/03/20 02/13/21 History Gabapentin [Neurontin] 300 mg PO TID 07/03/20 02/13/21 History Ipratropium [place] 0.06%Nasal 2 spr EA NOSTRIL BID 07/03/20 02/13/21 History [Atrovent Nasal 0.06%] Biotin 10 mg PO DAILY 07/15/20 02/13/21 History HYDROcodone/APAP 10-325MG [[place] 1 tab PO BID PRN 07/15/20 02/13/21 History 10-325] Dexlansoprazole [Dexilant] 60 mg PO DAILY 08/07/20 02/13/21 History Empaglifloz/Linaglip/Metformin 1 tab PO DAILY 09/20/20 02/13/21 History [Trijardy Xr 25-5-1,000 mg Tab] Apixaban [Eliquis] 5 mg PO BID 10/06/20 02/13/21 History Temazepam [Restoril] 15 mg PO HS 10/06/20 02/13/21 History methocarbamoL [Robaxin] 500 mg PO TID PRN 12/03/20 02/13/21 History rOPINIRole HCL [Requip] 2 mg PO BID@0800,1200 12/03/20 02/13/21 History Cholecalciferol [Vitamin D3 (25 25 mcg PO DAILY 12/17/20 02/13/21 History Mcg = 1000 Iu)] DULoxetine HCL [Cymbalta] 60 mg PO DAILY 12/17/20 02/13/21 History Estradiol Cream [Estrace Cream 1 gm VAGINAL SUTH 12/17/20 02/13/21 History 0.01%] Nuno-E 1000mg 1,000 mg PO DAILY 12/17/20 02/13/21 History Atorvastatin [Lipitor] 40 mg PO HS 12/27/20 02/13/21 History rOPINIRole HCL [Requip] 4 mg PO HS 12/27/20 02/13/21 History Loperamide [Imodium] 2 mg PO TID PRN 12/30/20 02/13/21 History Clopidogrel [Plavix] 75 mg PO DAILY #30 tab 01/06/21 02/13/21 Rx Atenolol [Tenormin] 50 mg PO BID 02/13/21 02/13/21 History Collagenase [Santyl] 1 applic TOPICAL DAILY 02/13/21 02/13/21 History Nitrofurantoin Monohyd/M-Cryst 100 mg PO DAILY 02/13/21 02/13/21 History [Macrobid] Psyllium Husk (with Sugar) 6 gm PO BID 02/13/21 02/13/21 History [Metamucil Powder] Allergies Allergy/AdvReac Type Severity Reaction Status Date / Time adhesive Allergy red skin, Verified 02/13/21 17:33 blisters cefaclor [From Ceclor] Allergy Rash/Hives Verified 02/13/21 17:33 ciprofloxacin [From Cipro] Allergy Rash/Hives Verified 02/13/21 17:33 ciprofloxacin HCl Allergy Rash/Hives Verified 02/13/21 17:33 [From Cipro] hydromorphone HCl Allergy Anaphylaxis Verified 02/13/21 17:33 [From Dilaudid] Penicillins Allergy Rash/Hives Verified 02/13/21 17:33 clindamycin AdvReac Nausea & Verified 02/13/21 17:33 Vomiting sulfamethoxazole AdvReac Abdominal Verified 02/13/21 17:33 [From Bactrim] Pain trimethoprim [From Bactrim] AdvReac Abdominal Verified 02/13/21 17:33 Pain Physical Examination Gen: AOx3, NAD VSS stable at this time Integument: No obvious skin changes are noted throughout the cervical, thoracic or lumbar spine. Previous surgical scars in the lower back are visualized and well healed. Palpation: Patient is nontender with palpation in the midline and paraspinal regions of the cervical, thoracic or lumbar spine ROM: Range of motion in all major muscle groups of bilateral upper extremities are intact Range of motion in all major muscle groups the left lower extremity are intact Patient has limited range of motion with dorsiflexion, plantarflexion, EHL, hip flexion, knee extension, knee flexion Sensory Exam: Sen[place] exam to light touch is intact C5-T1 [place] exam to light touch is intact L2-S1 Motor: No appreciated strength deficits of the bilateral upper extremities, there is some residual weakness in the right upper extremity from her previous surgery and her generalized age and medical state 5 out of 5 strength is appreciated in the left lower extremity with hip flexion, knee extension, knee flexion, plantar flexion, dorsiflexion, EHL, FHL After multiple attempts and coaching assistance of the patient with regards to the right lower extremity, I was able to appreciate C3-4 out of 5 strength with plantarflexion and FHL, EHL and dorsiflexion were around a 2-3 out of 5 along with knee extension, knee flexion and hip flexion Reflexes: 2/4 in all UE and LE Negative K[place]hawn bilaterally, negative clonus bilaterally, negative Babinski bilaterally Results - Labs Labs: Abnormal Lab Results - Last 24 Hours (Table) 02/13/21 02/13/21 02/13/21 Range/Units 15:48 15:52 15:52 RDW 17.0 H (11.5-15.5) % Chloride 110 H (98-107) mmol/L Carbon Dioxide 19 L (22-30) mmol/L BUN 19 H (7-17) mg/dL Glucose 223 H (74-99) mg/dL POC Glucose (mg/dL) 190 H (75-99) mg/dL AST 38 H (14-36) U/L 02/13/21 02/14/21 02/14/21 Range/Units 20:19 06:09 11:34 RDW (11.5-15.5) % Chloride (98-107) mmol/L Carbon Dioxide (22-30) mmol/L BUN (7-17) mg/dL Glucose (74-99) mg/dL POC Glucose (mg/dL) 144 H 129 H 119 H (75-99) mg/dL AST (14-36) U/L H & H 02/13/21 Range/Units 15:52 Hgb 12.6 (11.4-16.0) gm/dL Hct 39.1 (34.0-46.0) % Coagulation 02/13/21 Range/Units 15:52 INR 1.0 (<1.2) Result Diagrams: 02/13/21 15:52 02/13/21 15:52 Assessment and Plan Assessment: Right lower extremity weakness CVA-type symptoms History of multiple lumbar surgeries, most recently T12-L2 decompression with fusion History of multiple cervical spine surgeries History of stroke in 12/2020 bilateral hemispheric, right cerebellar and seem etiology due to right brachiocephalic occlusion/stenosis status post balloon angioplasty and stenting on 01/01/2021 Other medical comorbidities Plan: I was able to discuss the case, including the physical exam findings and imaging studies might attending Dr. Plummer. No emergent orthopedic surgical intervention recommended. At the patient's last visit when she was diagnosed with acute CVA, we had postponed her plan cervical procedure due to the need for anticoagulation. With patient's presentation of symptoms along with her current state, low concern for an acute cervical, thoracic or lumbar pathology. Initial symptoms do present more like a CVA or TIA We'll order CT scans of the thoracic and lumbar spine Decadron 4 mg every 6 hours will be started, anticipate elevation of glucose. Patient may benefit from sliding scale insulin, defer from internal medicine's recommendations on that Recommend weightbearing as tolerated with walker, also patient would benefit from her AFO brace at this time GI and DVT prophylaxis per primary medical service Other medical records library professor recommendations We will review the images of both thoracic and lumbar CT scans, further recommendations to follow Time with Patient: Less than 30
--- NOTE | 2021-02-14 13:13 | P.PN ---
Subjective Progress Note Date: 02/14/21 HISTORY OF PRESENT ILLNESS 81-year-old female one of Dr. Rocha patient with multiple medical problem known to have history of multiple stroke with bilateral hemisphere involvement last time was in 01/01/2021 after she had procedure for brachial occlusion post balloon angioplasty and stent developed to have stroke had affected the right side patient was the hospital for a few days was discharged home afterward has been doing well has been on Eliquis was post to be on Plavix originally which patient has not been taking Plavix since. Patient had history of non-Hodgkin ly mphoma had severe chronic lower back pain post multiple lipid urine injection along with to fusion of the thoracic and lumbar spine by Dr. Plummer in town last one was over 6 month ago each patient has not done well mobility [place] dependency. Patient was in rehab for long time. Since her recovering from stroke over 6 weeks ago patient has been doing well apparently was shopping with her family today when around 2:00 in the afternoon developed to have significant weakness of the right side mostly in the leg and the arm and felt extremely weak she lost her balance and almost fell down her family had help her. Patient was transported to [facility] department continue to have significant weakness the right side had slight visual disturbance without any other stroke finding. Patient right-sided weakness improved some but continued to be still significant compared to the other side. CAT scan of the brain didn't show any bleed at the time, patient blood sugar was mildly elevated the rest of her lab did not show any abnormality. CT of the brain showed age- related atrophy with chronic small vessel ischemic without any acute intracranial processes seen, CTA of the head and neck shows no major abnormality with her carotid without any change in into or extracranial circulation. Patient will be admitted to the hospital be seen neurology MRI of the brain will be done patient be started back on PTOT. 02/14: Patient continues to have right-sided weakness more so to the right leg. Dusky changes to the right fingertips remains improved from last admission. Arterial study has been ordered for the lower extremities. Patient has been afebrile, heart rate 102, blood pressure 126/67 and pulse ox 100% on room air. Capillary blood glucose running between 119 144. Patient has been seen by neurology for acute right lower extremity weakness worsening from her baseline likely due to ischemic stroke but MRI is negative for acute stroke and MRI of the lumbar area is planned. Eliquis 5 mg twice daily is temporarily on hold while patient is on aspirin 81 mg daily and Plavix 75 mg daily. Patient to continue Lipitor 40 mg daily. Patient is also been seen by cardiology with recommendations to continue anticoagulation and continue atenolol 50 mg twice daily and Lipitor. No further workup at this time. Patient is scheduled for outpatient stress test through the office and will follow-up thereafter. Cardiology is following on an as- needed basis. Follow-up with Dr. Edward's and has been ordered as patient has had previous surgery and due to right lower extremity weakness ruled out CVA by MRI. PT and OT are in place. MRI of the brain reveals chronic-appearing white matter changes the largest within the right cerebellum is somewhat smaller than comparison. Remaining white matter changes and some cortical change at the right vertex are stable. No new suspicious acute ischemic changes evident. Limited echocardiogram reveals EF of 55-60% with mild aortic stenosis with gradient 24.98 mmHg/13.39 mmHg. Venous ultrasound of the right lower extremity is negative for DVT. REVIEW OF SYSTEMS Constitutional: No fever, no chills, no night sweats. No weight change. Reports weakness, reports fatigue denies lethargy. No daytime sleepiness. EENT: No headache. No blurred vision or double vision, no loss of vision. No loss of Hearing, no ringing in the ears, Reports dizziness. No nasal drainage or congestion. No epistaxis. No sore throat. Lungs: Denies shortness of breath, cough, no sputum production. No wheezing. Cardiovascular: No chest pain, no left lower extremity edema. No palpitations. No paroxysmal nocturnal dyspnea. No orthopnea. No lightheadedness or di zziness. No syncopal episodes. Abdominal: No abdominal pain. No nausea, vomiting. No diarrhea. No constipation. No bloody or tarry stools.. No loss of appetite. Genitourinary: No dysuria, increased frequency, urgency. No urinary retention. Reports incontinence, loss of bladder control Musculoskeletal: No myalgias. Reports muscle weakness, reports gait dysfunction, reports 2 falls. Reports back pain. No neck pain. Integumentary: No wounds, no lesions. No rash or pruritus. No unusual bruising. Slight purple color of the fingertip with possibility of arterial thrombus. Neurologic: No aphasia. No facial droop. No change in mentation. No head injury. No headache. No paralysis. No paresthesia. Psychiatric: No depression. No anxiety. No mood swings. Endocrine: No abnormal blood sugars. PHYSICAL EXAMINATION Gen: This is A 80-year-old female. Patient is resting in bed appears to be comfortable and in no acute distress. No respiratory distress is noted. HEENT: Head is atraumatic, normocephalic. Pupils equal, round. Sclerae is anicteric. NECK: Supple. No JVD. No lymphadenopathy. No thyromegaly. LUNGS: Clear to auscultation. No wheezes or rhonchi. No intercostal retractions. HEART: Regular rate and rhythm. No murmur. ABDOMEN: Soft. Bowel sounds are present. No masses. Mild right lower quadrant tenderness. BACK: Surgical wound is healed. No drainage, erythema. No deformity noted. EXTREMITIES: No pedal edema. No calf tenderness. Dorsalis pedis palpable bilaterally. Left foot drop, slight discoloration of the color of her fingertip especially the left side with slight discomfort as well. NEUROLOGICAL: Patient is awake, alert and oriented x3. Cranial nerves 2 through 12 are grossly intact. ASSESSMENT AND PLAN 1. CVA with right-sided weakness: It's either use stroke or an extension of her stroke from December, patient be seen neurology, consider to add Plavix patient will be started PTOT MRI of the brain is pending at this point to see if there is any evidence new stroke. 2. Severe right sided weakness mostly in the right lower extremity, not clear if there is any element with her lumbar spine, x-ray and MRI of the L-spine might be done we'll consult with Dr. Plummer as well. 3. Debility: Not been able to ambulate and walk, patient will require PTOT and possible rehab. 4. History of pulmonary embolism: Restart Eliquis 5 mg twice daily by tomorrow morning. 5. Diabetes mellitus type 2. Recheck Hemoglobin A1c. Patient will be on NovoLog scale before meals and at bedtime. 6. Non-Hodgkin's lymphoma [place] [address] Monaco and follows with Dr. Aranda, in remission. 7. History of TIA with no deficits. 8. 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 Continue gabapentin 300 mg twice daily and 600 at bedtime. 9. Hypertension. Blood pressures well control on atenolol 50 mg twice a day. 10. Hypothyroidism. Continue levothyroxine 12.5 g daily. 11. 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 12. Recurrent depression. Continue Prozac 30 mg daily. 13. Chronic gout. Continue allopurinol 100 mg daily. 14. Hyperlipidemia. Patient is not currently on statin. 15. Restless leg syndrome. Continue Requip. 16. GERD and GI prophylaxis. Protonix CODE STATUS: Full code. DISCHARGE PLAN To be determined. Patient has been a leak urine inpatient rehab in the past. PT and OT and patient case manager following. Impression and plan of care have been directed as dictated by the signing physician. Karen Quintero nurse practitioner acting as scribe for signing physician. Objective - Vital Signs Vital signs: Vital Signs Temp 97.6 F 02/14/21 08:00 Pulse 102 H 02/14/21 08:00 Resp 16 02/14/21 08:00 BP 126/67 02/14/21 08:00 Pulse Ox 100 02/14/21 08:00 Intake & Output 02/13/21 02/14/21 02/14/21 18:59 06:59 18:59 Intake Total 240 Balance 240 Weight 62.596 kg 64 kg Intake: Oral 240 Other: Voiding Method Bedpan # Voids 1 - Labs CBC & Chem 7: 02/13/21 15:52 02/13/21 15:52 Labs: Abnormal Lab Results - Last 24 Hours (Table) 02/13/21 02/13/21 02/13/21 Range/Units 15:48 15:52 15:52 RDW 17.0 H (11.5-15.5) % Chloride 110 H (98-107) mmol/L Carbon Dioxide 19 L (22-30) mmol/L BUN 19 H (7-17) mg/dL Glucose 223 H (74-99) mg/dL POC Glucose (mg/dL) 190 H (75-99) mg/dL AST 38 H (14-36) U/L 02/13/21 02/14/21 Range/Units 20:19 06:09 RDW (11.5-15.5) % Chloride (98-107) mmol/L Carbon Dioxide (22-30) mmol/L BUN (7-17) mg/dL Glucose (74-99) mg/dL POC Glucose (mg/dL) 144 H 129 H (75-99) mg/dL AST (14-36) U/L
[2021-02-14] MEDS: CLOPIDOGREL 75 MG TAB PO SCH (14:27)
--- NOTE | 2021-02-14 16:58 | P.GSCN ---
History of Present Illness Consult date: 02/14/21 History of present illness: Pretty is a 81-year-old female well known to me from previous interventions for microembolic disease of her right upper extremity from a brachiocephalic stenosis and subsequent CVA. She was doing well and had convalesced at the rehab facility and is now back at home with her daughters, in the office when she was seen to still having some issue with wounds of her right distal fingertips although states that has now resolved.. She was out shopping with her daughter and began having increasing right lower extremity weakness. She does have a baseline of weakness. It does not seem to affect her arm that she is aware of. There is some question of difficulty of speech at that time as well although she denies that at this point 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, VARICOSE VEINS, GOUT, LYMPHOMA (HX OF CHEMO & RADIATION 1977,1982 & 1993), hx migraines, hx ulcer, constipation, "red spots all over", states difficulty swallowing & having acid reflux., back pain-uses walker., States toenail was "cut back " yesterday 09/19/20, hammer toes. History of Any Multi-Drug Resistant Organisms: None Reported Past Surgical History: Appendectomy, Back Surgery, Breast Surgery, Cholecystectomy, Hysterectomy, Joint Replacement, Orthopedic Surgery, Tonsillectomy Additional Past Surgical History / Comment(s): RIGHT HIP REPAIR, german KNEE REPL ACEMENT, rods german thumbs and rt 3rd toe, BREAST & AXILLARY BX, TUMOR IN THROAT REMOVED., CERVICAL FUSION, LUMBAR LAMINECTOMY,DECOMPRESSION-FUSION L1-L2., recent back surgery for nerve and tendons, german cataracts, Angioplasty with Dr. Mortensen on 01/01/21 and pt stroked 5 x after. Past Anesthesia/Blood Transfusion Reactions: No Reported Reaction Additional Past Anesthesia/Blood Transfusion Reaction / Comm: CLAUSTROPHOBIA Past Psychological History: Anxiety, Depression Additional Psychological History / Comment(s): (end of 2019) Smoking Status: Never smoker Past Alcohol Use History: None Reported Additional Past Alcohol Use History / Comment(s): . Past Drug Use History: None Reported - Past Family History Father Family Medical History: Deep Vein Thrombosis (DVT), Pulmonary Embolus Additional Family Medical History / Comment(s): Father at age 32 from pulmonary embolism. Mother Family Medical History: Cancer Additional Family Medical History / Comment(s): breast Brother(s) Family Medical History: Cancer, Deep Vein Thrombosis (DVT) Additional Family Medical History / Comment(s): 2 brothers that have passed one from myocardial infarction and one from pulmonary embolism. 2 brothers are alive and one has lung cancer, one brother is alive with a brain aneurysm and CVA. Medications and Allergies Home Medications Medication Instructions Recorded Confirmed Type Calcium Carb-Vit D 500Mg-5Mcg 1 tab PO DAILY 01/05/14 02/13/21 History [Oscal 500+D 5 Mcg (200 Iu)] allopurinoL [Zyloprim] 100 mg PO DAILY 01/05/14 02/13/21 History Levothyroxine Sodium [Synthroid] 12.5 mcg PO DAILY 03/16/14 02/13/21 History Alpha Lipoic Acid 600 mg PO DAILY 07/03/20 02/13/21 History Gabapentin [Neurontin] 300 mg PO TID 07/03/20 02/13/21 History Ipratropium [place] 0.06%Nasal 2 spr EA NOSTRIL BID 07/03/20 02/13/21 History [Atrovent Nasal 0.06%] Biotin 10 mg PO DAILY 07/15/20 02/13/21 History HYDROcodone/APAP 10-325MG [[place] 1 tab PO BID PRN 07/15/20 02/13/21 History 10-325] Dexlansoprazole [Dexilant] 60 mg PO DAILY 08/07/20 02/13/21 History Empaglifloz/Linaglip/Metformin 1 tab PO DAILY 09/20/20 02/13/21 History [Trijardy Xr 25-5-1,000 mg Tab] Apixaban [Eliquis] 5 mg PO BID 10/06/20 02/13/21 History Temazepam [Restoril] 15 mg PO HS 10/06/20 02/13/21 History methocarbamoL [Robaxin] 500 mg PO TID PRN 12/03/20 02/13/21 History rOPINIRole HCL [Requip] 2 mg PO BID@0800,1200 12/03/20 02/13/21 History Cholecalciferol [Vitamin D3 (25 25 mcg PO DAILY 12/17/20 02/13/21 History Mcg = 1000 Iu)] DULoxetine HCL [Cymbalta] 60 mg PO DAILY 12/17/20 02/13/21 History Estradiol Cream [Estrace Cream 1 gm VAGINAL SUTH 12/17/20 02/13/21 History 0.01%] Nuno-E 1000mg 1,000 mg PO DAILY 12/17/20 02/13/21 History Atorvastatin [Lipitor] 40 mg PO HS 12/27/20 02/13/21 History rOPINIRole HCL [Requip] 4 mg PO HS 12/27/20 02/13/21 History Loperamide [Imodium] 2 mg PO TID PRN 12/30/20 02/13/21 History Clopidogrel [Plavix] 75 mg PO DAILY #30 tab 01/06/21 02/13/21 Rx Atenolol [Tenormin] 50 mg PO BID 02/13/21 02/13/21 History Collagenase [Santyl] 1 applic TOPICAL DAILY 02/13/21 02/13/21 History Nitrofurantoin Monohyd/M-Cryst 100 mg PO DAILY 02/13/21 02/13/21 History [Macrobid] Psyllium Husk (with Sugar) 6 gm PO BID 02/13/21 02/13/21 History [Metamucil Powder] Allergies Allergy/AdvReac Type Severity Reaction Status Date / Time adhesive Allergy red skin, Verified 02/13/21 17:33 blisters cefaclor [From Ceclor] Allergy Rash/Hives Verified 02/13/21 17:33 ciprofloxacin [From Cipro] Allergy Rash/Hives Verified 02/13/21 17:33 ciprofloxacin HCl Allergy Rash/Hives Verified 02/13/21 17:33 [From Cipro] hydromorphone HCl Allergy Anaphylaxis Verified 02/13/21 17:33 [From Dilaudid] Penicillins Allergy Rash/Hives Verified 02/13/21 17:33 clindamycin AdvReac Nausea & Verified 02/13/21 17:33 Vomiting sulfamethoxazole AdvReac Abdominal Verified 02/13/21 17:33 [From Bactrim] Pain trimethoprim [From Bactrim] AdvReac Abdominal Verified 02/13/21 17:33 Pain Surgical - Exam Vital Signs Temp Pulse Resp BP Pulse Ox 97.9 F 116 H 22 156/85 100 02/13/21 15:27 02/13/21 15:27 02/13/21 15:27 02/13/21 15:27 02/13/21 15:27 Genitals a pleasant cooperative female in no acute distress. HEENT is normocephalic, atraumatic, extraocular motion intact. Heart appears regular at this time. Lungs are clear bilaterally. Currently undergoing an echocardiogram. Heparin is soft, nontender nondistended. Extremity show no clubbing or cyanosis. There is mild right lower extremity edema. She maintains palpable radial pulses bilaterally. Palpable pedal pulses. Current inability to move her right lower extremity. Normal mood and affect otherwise Results Computed tomography scan of the neck is reviewed. No evidence of carotid or subclavian stenosis. Patent stent - Labs 02/13/21 15:52 02/13/21 15:52 Abnormal Lab Results - Last 24 Hours (Table) 02/13/21 02/14/21 02/14/21 Range/Units 20:19 06:09 11:34 POC Glucose (mg/dL) 144 H 129 H 119 H (75-99) mg/dL Assessment and Plan Assessment: Right lower extremity weakness, worsening previous History of brachiocephalic stent, CVA History of thromboembolic right upper extremity dry gangrene, improved Plan: At this point it does not appear to be any reason from a vascular standpoint for the possible CVA. Her carotid arteries appear widely patent as does the stent in the right brachiocephalic. No planned intervention at this time from a vascular standpoint.
[2021-02-14 17:37] LABS: Glucose,Whole Blood 123 mg/dL (75-99)
[2021-02-14] MEDS: CYCLOBENZAPRINE 5 MG TAB PO SCH ×2 (17:49→21:27)
[2021-02-14] MEDS: INSULIN ASPART (NovoLOG) 100 UNIT/ML VIAL SQ SCH ×2 (17:50→21:26)
[2021-02-14] MEDS: DEXAMETHASONE SOD PHOSPHATE 4 MG/ML 1 ML VIAL IV SCH ×2 (17:50→23:02)
[2021-02-14] MEDS: IPRATROPIUM BROMIDE 0.06% NASAL SPRAY (15 ML) EA NOSTRIL SCH ×3 (19:18→21:31)
[2021-02-14 19:25] LABS: Chol/HDL Ratio 3.02; LDL Cholesterol,Calculated 60.2 mg/dL (0.0-131.0); VLDL Calculation 28.8 mg/dL (5.00-40.00)
--- NOTE | 2021-02-14 19:32 | XR ---
EXAMINATION TYPE: XR knee complete RT DATE OF EXAM: 02/14/2021 COMPARISON: 11/26/2020 HISTORY: Knee pain TECHNIQUE: 3 views FINDINGS: There is right knee prosthesis. Components appear in anatomic position. I see no fracture. IMPRESSION: No complicating process seen. No change compared to old exam.
--- NOTE | 2021-02-14 19:36 | MR ---
EXAMINATION TYPE: MR lumbar spine wo con DATE OF EXAM: 02/14/2021 COMPARISON: 11/01/2020 HISTORY: Low back pain. Multiplanar multiecho imaging of the lumbar spine without contrast. There are posterior rods and screws fusing posteriorly the lumbar spine from the level of T12-S1. The re is extensive metal artifact. The vertebra have normal alignment. I see no significant compression deformity. At T12-L1 there is a large posterior disc herniation and osteophyte impinging on the spina l canal. There appears to be laminectomy and no significant spinal stenosis. The visualized sacrum is intact. I see no focal bone destruction. There is no evidence of lumbar paraspinal mass. IMPRESSION: Multilevel posterior fusion surgery. Large posterior T12-L1 disc herniation with osteophyte formation unchanged. No evidence of any significant spinal stenosis. No fracture.
--- NOTE | 2021-02-14 19:59 | CT ---
EXAMINATION TYPE: CT thor lumbar spine wo con DATE OF EXAM: 02/14/2021 COMPARISON: 11/29/2020 and 10/06/2020 HISTORY: Back pain lower extremity weakness. CT DLP: mGycm Automated exposure control for dose reduction was used. Images were obtained from the level of T1-S1 vertebra without contrast. Thoracic and lumbar vertebra overall have fairly normal alignment. There is apparent multilevel fusio n surgery in the cervical spine. There are rods and screws fusing posteriorly the lumbar spine from T 12 to S1 vertebra. There is metal artifact. I see no significant compression deformity. There is mode rately large osteophyte formation of the posterior endplate of T12-L1. There is no thoracic paraspina l mass. There is apparent multilevel upper lumbar laminectomy defect. There is minimal 10% compressio n deformity of the L1 vertebral body. IMPRESSION: Previous surgery. Thoracic and lumbar spine appear not significantly different than old exams. No acu te bony abnormality.
[2021-02-14 20:20] LABS: Glucose,Whole Blood 264 mg/dL (75-99)
[2021-02-14] MEDS: rOPINIRole HCL 4 MG TABLET PO SCH (21:26)
[2021-02-14] MEDS: APIXABAN 5 MG TAB PO SCH (21:26)
[2021-02-14] MEDS: ATORVASTATIN 40 MG TAB PO SCH (21:26)
[2021-02-14] MEDS: TEMAZEPAM 15 MG CAP PO SCH (21:27)
[2021-02-15 06:04] LABS: Glucose,Whole Blood 175 mg/dL (75-99)
[2021-02-15] MEDS: DEXAMETHASONE SOD PHOSPHATE 4 MG/ML 1 ML VIAL IV SCH ×3 (06:12→23:18)
[2021-02-15] MEDS: LEVOTHYROXINE 25 MCG TAB PO SCH (06:12)
[2021-02-15] MEDS: INSULIN ASPART (NovoLOG) 100 UNIT/ML VIAL SQ SCH ×4 (06:13→20:27)
[2021-02-15] MEDS: DULoxetine HCL 60 MG CAPSULE.DR PO SCH (08:31)
[2021-02-15] MEDS: GABAPENTIN 300 MG CAP PO SCH ×3 (08:31→21:20)
[2021-02-15] MEDS: allopurinoL 100 MG TAB PO SCH (08:31)
[2021-02-15] MEDS: APIXABAN 5 MG TAB PO SCH ×2 (08:32→20:26)
[2021-02-15] MEDS: atenoloL 50 MG TAB PO SCH ×2 (08:32→20:27)
[2021-02-15] MEDS: HYDROcodone/APAP 10-325MG 1 EACH TAB PO PRN ×2 (08:32→21:19)
[2021-02-15] MEDS: NITROFURANTOIN MONOHYD/M-CRYST 100 MG CAP PO SCH (08:32)
[2021-02-15] MEDS: CYCLOBENZAPRINE 5 MG TAB PO SCH ×3 (08:32→21:19)
[2021-02-15] MEDS: IPRATROPIUM BROMIDE 0.06% NASAL SPRAY (15 ML) EA NOSTRIL SCH ×2 (08:38→20:27)
[2021-02-15] MEDS: CLOPIDOGREL 75 MG TAB PO SCH (08:38)
[2021-02-15] MEDS ORDERED: ASPIRIN 81 MG PO SCH (09:00)
--- NOTE | 2021-02-15 10:47 | P.PN ---
Subjective Progress Note Date: 02/15/21 Principal diagnosis: LE weakness, UE weakness, Facial droop 81-year-old female presented yesterday after having an acute onset of weakness will screw shopping. The patient states that she is using one of the carts to get around and shop when all this and she started feeling facial tingling this somewhat resolved but she went to stand and she was unable to stand due to weakness in her upper extremity and lower extremity on the right-hand side. Patient has a long history of cervical and lumbar issues as well as a recent stroke along with a brachial stent placement. The patient has been on anticoagulation for this since the stroke about a month ago. She complains of some slurred speech as well as facial numbness which has resolved she initially complained of right upper extremity numbness and tingling as well but this has resolved. She still complains of some weakness in her right lower extremity however today she states that it is much better than it was when she first presented. She denies any perineal numbness or tingling. She states that her bowel and bladder control is still difficult however it has not significantly changed since previous visits. She denies any fevers chills shortness of breath or chest pain no recent trauma Objective - Vital Signs Vital signs: Vital Signs Temp 97.5 F L 02/15/21 08:00 Pulse 91 02/15/21 08:00 Resp 18 02/15/21 08:00 BP 137/76 02/15/21 08:00 Pulse Ox 98 02/15/21 08:00 Intake & Output 02/14/21 02/15/21 02/15/21 18:59 06:59 18:59 Intake Total 960 240 Balance 960 240 Weight 65.5 kg Intake: Oral 960 240 Other: Voiding Method Bedpan # Voids 1 1 2 # Bowel Movements 1 - Exam PHYSICAL EXAMINATION: Vitals: Stable General: Awake, alert, appropriate for age, in no acute distress. HEENT: No unusual neck masses around region of lateral neck triangle, thyroid, supraclavicular groove. Extremities: Skin warm and dry without no acute lesions, coloration, temperature, skin intact, no tenderness or erythema. Integument: Hairy patches: Absent Dorsal skin dimples: Absent Cafe au lait spots: Absent Surgical incisions: Well-healed posterior midline incisions Palpation: Please see Pain drawing on Intake sheet for further detail. (Tenderness = T, Nontender = NT, Swelling = S, Ecchymosis = E) Findings on Midline and paraspinal palpation and percussion: Cervical: NT Thoracic: NT Lumbar: NT Sacral: NT Special findings: None POSTURAL and MUSCULO-SKELETAL EVALUATION: Coronal Balance: Neutral Recumbent testing: Patient can lay flat on back Sagittal Balance: Positive Shoulder Profile: Level Pelvic Girdle: Level Neck ROM: Nonpainful somewhat restricted and right rotation Lumbar ROM: Unrestricted in six directions Shoulder ROM: Symmetric in abduction, ER/IR Hip ROM: Symmetric in abduction, adduction, ER/IR Knee ROM: Symmetric and intact in Flexion / extension Hands: Normal appearing structure L and R Feet: Normal appearing structure L and R VASCULAR STATUS : Wrist Pulses: 2/4 bilateral radial and ulnar Pedal Pulses: 2/4 bilateral DP and PT Color: Normal Edema: None NEUROLOGIC EXAMINATION: Mental Status: Awake and alert, fully oriented, with normal attention, concentration and memory, and fluent, appropriate speech. She does have some facial drooping that is noted on the left-hand side. She has less control over her left facial expressions when she smiles the left side does not broaden as much as the right. She has good sensation however in her facial area. Cranial Nerves: I: Olfactory not tested. II: Visual acuity normal, no visual field deficit noted with confrontation. III,IV: Normal pupillary reflexes & intact extraocular movements without nystagmus. V,: Intact symmetrical facial sensation. VII: Intact symmetrical facial motor movement VIII: Hearing intact. IX,X: Intact gag, swallow, & normal voice. XI: Sternocleidomastoid, trapezius function intact. XII: Tongue midline with normal movements. Special Tests: L'hermitte's Sign: Absent Spurling'Sign: Absent Bilateral Cubital percussion test: Absent Bilateral Dolly-Tinel sign - Carpal region: Absent Bilateral Straight Leg Raising: Absent Bilateral Motor Exam (0-5/5, N/T) STRENGTH UPPER EXTREMITY Shoulder Abd (Not part of LEONA Motor score): RIGHT 4 LEFT 5 Elbow Flexors: RIGHT 4 LEFT 5 Elbow Extensor: RIGHT 4 LEFT 5 Wrrist Dorsiflexors: RIGHT 4 LEFT 5 Finger Abductor: RIGHT 4 LEFT 5 Nurse Substance Abuse: RIGHT 4 LEFT 5 LOWER EXTREMITY Hip Flexor (Not part of LEONA Motor Score): RIGHT 4 LEFT 5 Knee Flexor: RIGHT 4 LEFT 5 Knee Extensor: RIGHT 4 LEFT 5 Ankle Dorsiflexion: RIGHT 4 LEFT 5 Ankle Plantarflexion: RIGHT 4 LEFT 5 EHL: RIGHT 4 LEFT 5 FHL: RIGHT 4 LEFT 5 Compared to previous exams on this day as well as previous exams and I have had with her she does seem actually stronger in her right lower extremity than she has been. I agree it did not it admit her yesterday and some not sure if she is improved since then however she is exhibiting some resistive force in her right lower extremity. She does have some difficulty with cooperation and needs to be distracted in order to perform these exams however her hip flexion has improved it is weaker than the other major muscle groups in her lower extremity however it is still exhibiting reasonable resistive force. I see no focal deficits in her lower extremities. Her right upper extremity is weaker and harder to control and her left. Her raveler strength is decreased on the right-hand side compared as well as her shoulder abduction. She is overall weaker in her right upper extremity than her left upper extremity. REFLEXES Biecp: RIGHT 3 LEFT 2 Tricep: RIGHT 3 LEFT 2 Brachioradialis: RIGHT 2 LEFT 2 Patellar: RIGHT 2 LEFT 2 Achilles: RIGHT 2 LEFT 2 Pathological Reflexes Franklin's: RIGHT present LEFT present Babinski: RIGHT Absent LEFT Absent Clonus: RIGHT None LEFT None While she exhibits some hyperreflexia she does have Keshawn's bilaterally however she is not exhibiting exuberant myelopathic signs. SENSORY Joint Position: Intact bilaterally Vibration Intact bilaterally Pain and LT sense Intact C5-T1 and L2-S1 Dermatomal deficit None Gait and Functional Evaluation: Ambulatory aids: Walker Hand and finger dexterity intact bilaterally. Disdiadochokinesis examination negative bilaterally. - Labs CBC & Chem 7: 02/13/21 15:52 02/13/21 15:52 Labs: Abnormal Lab Results - Last 24 Hours (Table) 02/14/21 02/14/21 02/14/21 Range/Units 11:34 17:34 20:18 POC Glucose (mg/dL) 119 H 123 H 264 H (75-99) mg/dL 02/15/21 Range/Units 06:03 POC Glucose (mg/dL) 175 H (75-99) mg/dL - Imaging and Cardiology Her computed tomography scan of her thoracic and lumbar spine as well as MRI of the lumbar spine are reviewed. These exhibit no acute changes from previous exams. She still has a large disc osteophyte complex at T12-L1 however this is been present for some time and she is posteriorly decompressed from T11 to L2. The hardware is in position does not appear to be failed has shifted slightly however is not overtly different. MRI reflects the same thing with no acute changes in the lumbar spine. In the cervical spine her MRI demonstrates pincer lesions at C2 3 as well as C7- T1. She has previous fusion from C3 to C7 which is noted. She has stenosis in these areas which could be contributing to some of her symptoms. There is some beginning myelomalacia at C2-C3 however it is not severe. There is no other fracture or dislocation. 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 -Activity: Ambulate QID, OOB all meals, up and about, limit lifting bending twisting to less than 5 lbs. Use walker or cane if needed for stability. -Daily PT/OT, increase ambulation strength and balance. -Pain control: [Adequate at this time] -Meds: [reviewed] -GI ppx: senna, Miralax -DVT PPX: Per primary team -Hygiene: Daily showers -Encourage IS 10x/hr -Dispo: [Pending] I discussed the patient's clinical signs and symptoms as well as her imaging with her. Today it seems that she is doing better than she was yesterday and that her strengths are better in her right lower extremity and right upper extremity than they have been on previous exams in previous notes reviewed. The patient does have significant cervical pathology as well as lumbar pathology however I am unsure of how much this is contributing to her current condition. She states that her inciting symptom was facial numbness and tingling, this obviously does not happen with cervical myelopathy or lumbar radiculopathy and so I would favor more of a TIA like symptom. I reviewed the other notes and martin gil and realizes that CVA and TIA have likely been ruled out however with her history of anticoagulation having TIA and CVA secondary to surgeries it is hard to rule out that it did not happen similarly again. While I do feel her cervical spine could be contributing to some of her weakness as well as her instability we had previously set her up for surgery however she had her incident about a month ago with a stroke and was on anticoagulation and so we postponed surgery secondary to this. She would have to be extremely medically optimized in order for us to do a cervical posterior decompression and fusion which is what she needs done from C2 to T3 or 4. I discussed this with the patient. I do not feel that the lower back is causing her symptoms at this time. While she does have the disc osteophyte complex in this area this is not a new finding and she is also posteriorly decompressed from her previous surgery. I discussed this at length with the patient as well as medicine. I would favor continued medical management steroid dosing and optimization. If she shows more signs of myelopathy we would have to explore doing the cervical fusion and decompression as this is more pressing in my mind than any of her other spinal issues. I will defer her medical management the primary team and we will see how she progresses over the next couple of days with physical therapy medications and conservative measures. Time with Patient: Greater than 30
[2021-02-15 11:46] LABS: Glucose,Whole Blood 275 mg/dL (75-99)
--- NOTE | 2021-02-15 11:58 | P.PN ---
Subjective Progress Note Date: 02/15/21 81-year-old female one of Dr. Rocha patient with multiple medical problem known to have history of multiple stroke with bilateral hemisphere involvement last time was in 01/01/2021 after she had procedure for brachial occlusion post balloon angioplasty and stent developed to have stroke had affected the right side patient was the hospital for a few days was discharged home afterward has been doing well has been on Eliquis was post to be on Plavix originally which patient has not been taking Plavix since. Patient had history of non-Hodgkin lymphoma had severe chronic lower back pain post multiple lipid urine injection along with to fusion of the thoracic and lumbar spine by Dr. Plummer in town last one was over 6 month ago each patient has not done well mobility galeas dependency. Patient was in rehab for long time. Since her recovering from stroke over 6 weeks ago patient has been doing well apparently was shopping with her family today when around 2:00 in the afternoon developed to have significant weakness of the right side mostly in the leg and the arm and felt extremely weak she lost her balance and almost fell down her family had help her. Patient was transported to [facility] continue to have significant weakness the right side had slight visual disturbance without any other stroke finding. Patient right-sided weakness improved some but continued to be still significant compared to the other side. CAT scan of the brain didn't show any bleed at the time, patient blood sugar was mildly elevated the rest of her lab did not show any abnormality. CT of the brain showed age- related atrophy with chronic small vessel ischemic without any acute intracranial processes seen, CTA of the head and neck shows no major abnormality with her carotid without any change in into or extracranial circulation. Patient will be admitted to the hospital be seen neurology MRI of the brain will be done patient be started back on PTOT. 02/14: Patient continues to have right-sided weakness more so to the right leg. Dusky changes to the right fingertips remains improved from last admission. Arterial study has been ordered for the lower extremities. Patient has been afebrile, heart rate 102, blood pressure 126/67 and pulse ox 100% on room air. Capillary blood glucose running between 119 144. Patient has been seen by neurology for acute right lower extremity weakness worsening from her baseline likely due to ischemic stroke but MRI is negative for acute stroke and MRI of the lumbar area is planned. Eliquis 5 mg twice daily is temporarily on hold while patient is on aspirin 81 mg daily and Plavix 75 mg daily. Patient to continue Lipitor 40 mg daily. Patient is also been seen by cardiology with recommendations to continue anticoagulation and continue atenolol 50 mg twice daily and Lipitor. No further workup at this time. Patient is scheduled for outpatient stress test through the office and will follow-up thereafter. Cardiology is following on an as-nee ded basis. Follow-up with Dr. Edward's and has been ordered as patient has had previous surgery and due to right lower extremity weakness ruled out CVA by MRI. PT and OT are in place. MRI of the brain reveals chronic-appearing white matter changes the largest within the right cerebellum is somewhat smaller than comparison. Remaining white matter changes and some cortical change at the right vertex are stable. No new suspicious acute ischemic changes evident. Limited echocardiogram reveals EF of 55-60% with mild aortic stenosis with gradient 24.98 mmHg/13.39 mmHg. Venous ultrasound of the right lower extremity is negative for DVT. 02/15: Patient evaluated this morning, still has complaints of groin pain, lower back pain, and right leg numbness as well as right upper extremity numbness. Overall her weakness has improved from yesterday. She underwent CT of the lumbar and thoracic spine, does not appear significantly different from the prior exams, MRI revealed a large posterior T12 through L1 disc herniation with osteophyte formation that were unchanged, there is no any significant spinal stenosis. Will increase Decadron to 8 mg every 8 hours, will order thyroid along with B12 and sed rate for tomorrow. Objective - Vital Signs Vital signs: Vital Signs Temp 97.8 F 02/15/21 03:11 Pulse 89 02/15/21 03:11 Resp 18 02/15/21 03:11 BP 123/67 02/15/21 03:11 Pulse Ox 96 02/15/21 03:11 Intake & Output 02/14/21 02/15/21 02/15/21 18:59 06:59 18:59 Intake Total 960 Balance 960 Weight 65.5 kg Intake: Oral 960 Other: Voiding Method Bedpan # Voids 1 1 - Exam Gen: This is A 80-year-old female. Patient is resting in bed appears to be comfortable and in no acute distress. No respiratory distress is noted. HEENT: Head is atraumatic, normocephalic. Pupils equal, round. Sclerae is anicteric. NECK: Supple. No JVD. No lymphadenopathy. No thyromegaly. LUNGS: Clear to auscultation. No wheezes or rhonchi. No intercostal retrac tions. HEART: Regular rate and rhythm. No murmur. ABDOMEN: Soft. Bowel sounds are present. No masses. Mild right lower quadrant tenderness. BACK: Surgical wound is healed. No drainage, erythema. No deformity noted. EXTREMITIES: No pedal edema. No calf tenderness. Dorsalis pedis palpable bilaterally. Left foot drop, slight discoloration of the color of her fingertip especially the left side with slight discomfort as well NEUROLOGICAL: Patient is awake, alert and oriented x3. Cranial nerves 2 through 12 are grossly intact - Labs CBC & Chem 7: 02/16/21 06:58 02/16/21 06:58 Labs: Abnormal Lab Results - Last 24 Hours (Table) 02/14/21 02/14/21 02/14/21 Range/Units 11:34 17:34 20:18 POC Glucose (mg/dL) 119 H 123 H 264 H (75-99) mg/dL 02/15/21 Range/Units 06:03 POC Glucose (mg/dL) 175 H (75-99) mg/dL Assessment and Plan Plan: 1. CVA with right-sided weakness: It's either use stroke or an extension of her stroke from December, patient be seen neurology, consider to add Plavix patient will be started PTOT MRI of the brain does not reveal any evidence for new CVA. 2. Severe right sided weakness mostly in the right lower extremity, not clear if there is any element with her lumbar spine, x-ray and MRI of the L-spine completed, Dr. Plummer on consult, dexamethasone increased to 8 mg every 8 hours 3. Debility: Not been able to ambulate and walk, patient will require PTOT and possible rehab. 4. History of pulmonary embolism: Restart Eliquis 5 mg twice daily 5. Diabetes mellitus type 2. Recheck Hemoglobin A1c. Patient will be on NovoLog scale before meals and at bedtime. 6. Non-Hodgkin's [place] [address] Monaco and follows with Dr. Aranda, in remission. 7. History of TIA with no deficits. 8. 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 Continue gabapentin 300 mg twice daily and 600 at bedtime. 9. Hypertension. Blood pressures well control on atenolol 50 mg twice a day. 10. Hypothyroidism. Continue levothyroxine 12.5 g daily. 11. 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 12. Recurrent depression. Continue Prozac 30 mg daily. 13. Chronic gout. Continue allopurinol 100 mg daily. 14. Hyperlipidemia. Patient is not currently on statin. 15. Restless leg syndrome. Continue Requip. 16. GERD and GI prophylaxis. Protonix CODE STATUS: Full code. The above impression and plan of care have been discussed and directed by signing physician. Luciana Cruz nurse practitioner acting as scribe for signing physician.
[2021-02-15] MEDS ORDERED: DEXAMETHASONE SOD PHOSPHATE 4 MG/ML 1 ML VIAL IV SCH (12:00)
[2021-02-15 16:36] LABS: Glucose,Whole Blood 155 mg/dL (75-99)
--- NOTE | 2021-02-15 16:45 | P.PN ---
Subjective Progress Note Date: 02/15/21 Patient seen at bedside and she feels her right leg strength is improving but not fully back to baseline. She is walking with a walker an no person assist and is accompanied by physical therapy team. Objective - Vital Signs Vital signs: Vital Signs Temp 97.6 F 02/15/21 12:00 Pulse 94 02/15/21 12:00 Resp 18 02/15/21 12:00 BP 148/77 02/15/21 12:00 Pulse Ox 99 02/15/21 12:00 Intake & Output 02/14/21 02/15/21 02/15/21 18:59 06:59 18:59 Intake Total 960 240 Balance 960 240 Weight 65.5 kg Intake: Oral 960 240 Other: Voiding Method Bedpan # Voids 1 1 2 # Bowel Movements 1 - Exam GENERAL: The patient is lying in bed and is not in acute distress. NEUROLOGICAL: Higher mental function: The patient is awake, alert, oriented to self, place and time. Patient is following commands. No aphasia and no neglect. Cranial nerves: The pupils are round, equal and reactive to light and accommodation. Visual trotter are full to confrontation throughout. Extraocular movement is intact no nystagmus is noted. Facial sensation is normal to touch throughout. The facial strength is slight left nasolabial flattening (old). Hearing is mild decreasd bilaterally to hand rub. Tongue is midline and moved [id number] without any difficulty. No dysarthria is noted. Shoulder shrug is normal bilaterally. Motor: Gait is deferred. The strength is right lower extremity is4 -to 4+/5 over the thigh and knee. while right ankle is 3-4. Bilateral hand pipe recovery specialist are 5- bilaterally. Otherwise 5/5 throughout. Has edema of the right lower extremity mostly the knee. Has scars over bilateral knees (from old surgery). Decrease tone over the right ankle. Otherwise normal tone and bulk. Cerebellum: Normal finger to nose bilaterally. Sensation: Sensation is decrease to touch over the right lower (old per patient). Otherwise normal throughout. Reflexes (right/left): 2+ throughout except right patellar could not assess because of pain and bilateral ankles are 1-2+ Plantars are mute bilaterally. WORK-UP: Lipid panel is the triglyceride of 144, cholesterol 133, LDL 60, HDL 44. MRI the brain is reported as "chronic-appearing white matter changes, the largest within the right cerebellum is somewhat smaller than comparison. Remaining white matter changes and some cortical changes at the right vertex are stable from comparison. No new suspicious acute ischemic changes evident". I personally could not review the images since no images are uploaded. MRI of the lumbar spine is reported as "multilevel posterior fusion surgery. Large posterior T12 to L1 disc herniation with osteophyte formation unchanged. No evidence of any significant spinal stenosis. No fracture". I personally could not review the images since no images are uploaded. CT thorax and lumbar is reported as previous surgery. Thoracic and lumbar spine appears not significantly different than old exam. No acute bony abnormality. Limited 2-D echo is reported as limited study. Overall left ventricle systolic function is normal with ejection fraction of 55-60%. Moderate aortic valve sclerosis. Right lower venous duplex was reported as negative and DVT in the right lower extremity. - Labs CBC & Chem 7: 02/13/21 15:52 02/13/21 15:52 Labs: Abnormal Lab Results - Last 24 Hours (Table) 02/14/21 02/14/21 02/15/21 Range/Units 17:34 20:18 06:03 POC Glucose (mg/dL) 123 H 264 H 175 H (75-99) mg/dL 02/15/21 Range/Units 11:45 POC Glucose (mg/dL) 275 H (75-99) mg/dL Assessment and Plan Assessment: * Tranient right lower extremity weakness (worsening than her baseline). Possibly TIA. Cannot rule out her cervical stenosis is the cause of this. MRI Brain and Lumbar are negative for stroke or sigficiant stenosis. * History of stroke in 12/2020 bilateral hemispheric, right cerebellar and seem etiology due to right brachiocephalic occlusion/stenosis status post balloon angioplasty and stenting on 01/01/2021 * History of subclavian steal syndrome * DVT on Eliquis * Diabetes mellitus * Hypertension * Hyperlipidemia * Chronic lower back pain getting epidural injection and has T12 to L2 fusion decompression Plan: * The patient was restarted on Eliquis 5 mg 1 tablet twice a day (for hx of DVT) and continued on Plavix 75mg daily. I stopped ASA since there is increase risk of bleed. Continue Lipitor 40 mg daily for secondary stroke prophylaxis. * PT OT and CHIMNEY CONSTRUCTION SUPERVISOR are consulted * Orthopedic team is on board. They are considering cervical posterior deomp ression and fusion (CT to T3 or T4). * Vascular surgery team is on board * Cardiology team is consulted as well. * Every 4 hours neuro checks * On Continue cardiac monitoring * We'll defer the rest of medical management to the primary team. The plan is discussed with the patient's nurse. There is no further neurological work-up. Neurology will sign off. Please reconsult if needed. Jesus Villarreal M.D. Neuro-hospitalist Time with Patient: Less than 30
[2021-02-15 20:16] LABS: Glucose,Whole Blood 209 mg/dL (75-99)
[2021-02-15] MEDS: rOPINIRole HCL 4 MG TABLET PO SCH (20:27)
[2021-02-15] MEDS: ATORVASTATIN 40 MG TAB PO SCH (20:27)
[2021-02-15] MEDS: TEMAZEPAM 15 MG CAP PO SCH (20:28)
[2021-02-16 06:02] LABS: Glucose,Whole Blood 237 mg/dL (75-99)
[2021-02-16] MEDS: LEVOTHYROXINE 25 MCG TAB PO SCH (06:08)
[2021-02-16] MEDS: INSULIN ASPART (NovoLOG) 100 UNIT/ML VIAL SQ SCH ×2 (06:08→13:19)
[2021-02-16 07:47] LABS: Basophils % (A) 0 %; Eosinophils % (A) 0 %; HCT 40.9 % (34.0-46.0); HGB 12.9 gm/dL (11.4-16.0); Hypochromasia Slight; Lymphocytes # (A) 0.3 k/uL (1.0-4.8); Lymphocytes % (A) 6 %; MCH 30.2 pg (25.0-35.0); MCHC 31.5 g/dL (31.0-37.0); Mean Platelet Volume 6.9; Monocytes # (A) 0.1 k/uL (0-1.0); Monocytes % (A) 2 %; Neutrophils # (A) 5.6 k/uL (1.3-7.7); Neutrophils % (A) 92 %; Platelet Count 266 k/uL (150-450); RBC 4.26 m/uL (3.80-5.40); RDW 15.2 % (11.5-15.5); WBC 6.1 k/uL (3.8-10.6)
--- NOTE | 2021-02-16 07:52 | P.PN ---
Subjective Progress Note Date: 02/16/21 Principal diagnosis: Right upper extremity and right lower extremity weakness, history of recent fall Patient was examined today at bedside, she is resting and having breakfast in her hospital chair. She appears very well at this time. She states that she is improving with regards to right upper extremity and right lower extremity weakness. Patient has been on the 4 mg of Decadron every 6 hours. She was able to ambulate yesterday evening with her walker with minimal difficulty. She currently is having no acute chest pain, shortness of breath, nausea vomiting, fever or chills. Objective - Vital Signs Vital signs: Vital Signs Temp 97.6 F 02/16/21 03:07 Pulse 86 02/16/21 03:07 Resp 18 02/16/21 03:07 BP 136/83 02/16/21 03:07 Pulse Ox 96 02/16/21 03:07 Intake & Output 02/15/21 02/16/21 02/16/21 18:59 06:59 18:59 Intake Total 720 Balance 720 Weight 61.8 kg Intake: Oral 720 Other: # Voids 2 1 # Bowel Movements 1 - Exam Gen: AOx3, NAD VSS stable at this time Integument: No obvious skin changes are noted throughout the cervical, thoracic or lumbar spine. Previous surgical scars in the lower back are visualized and well healed. Palpation: Patient is nontender with palpation in the midline and paraspinal regions of the cervical, thoracic or lumbar spine ROM: Range of motion in all major muscle groups of bilateral upper extremities are intact Range of motion in all major muscle groups the left lower extremity are intact Patient has limited range of motion with dorsiflexion, plantarflexion, EHL, hip flexion, knee extension, knee flexion Sensory Exam: Senory exam to light touch is intact C5-T1 Senosry exam to light touch is intact L2-S1 Motor: No appreciated strength deficits of the bilateral upper extremities, there is some residual weakness in the right upper extremity from her previous surgery and her generalized age and medical state 5 out of 5 strength is appreciated in the left lower extremity with hip flexion, knee extension, knee flexion, plantar flexion, dorsiflexion, EHL, FHL Strength testing on the right lower extremity shows improvement, 4 out of 5 stre ngth is appreciated with knee flexion, knee extension, hip flexion, plantar flexion, dorsiflexion, EHL, FHL Reflexes: 2/4 in all UE and LE Negative Keshawn bilaterally, negative clonus bilaterally, negative Babinski bilaterally - Labs CBC & Chem 7: 02/16/21 06:58 02/13/21 15:52 Labs: Abnormal Lab Results - Last 24 Hours (Table) 02/15/21 02/15/21 02/15/21 Range/Units 11:45 16:36 20:14 POC Glucose (mg/dL) 275 H 155 H 209 H (75-99) mg/dL 02/16/21 Range/Units 06:00 POC Glucose (mg/dL) 237 H (75-99) mg/dL Assessment and Plan Assessment: Status post cervical fusion with 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 Plummer was available yesterday to discuss at length the treatment plan with patient. We would like to continue with conservative medical management, this including physical therapy along with continuation of the steroids. Plan for transition to oral steroids upon discharge Recommend weightbearing as tolerated with walker or cane, also patient would benefit from her AFO brace at this time GI and DVT prophylaxis per primary medical service Other medical doctor md recommendations We will continue to follow patient during inpatient stay Time with Patient: Less than 30
[2021-02-16 07:53] LABS: ALT 19 U/L (4-34); AST 26 U/L (14-36); African American GFR (CKD) >90 (>60 ml/min/1.73 sqM); Albumin 4.4 g/dL (3.5-5.0); Alkaline Phosphatase 110 U/L (38-126); Anion Gap 8 mmol/L; Blood Urea Nitrogen 21 mg/dL (7-17); Calcium 10.2 mg/dL (8.4-10.2); Carbon Dioxide 27 mmol/L (22-30); Chloride 106 mmol/L (98-107); Glucose 301 mg/dL (74-99); Non-African American GFR(CKD) >90 (>60 ml/min/1.73 sqM); Potassium 4.4 mmol/L (3.5-5.1); Sodium 141 mmol/L (137-145); Total Bilirubin 0.5 mg/dL (0.2-1.3); Total Protein 6.8 g/dL (6.3-8.2)
[2021-02-16 08:51] LABS: T4, Free (Free Thyroxine) 0.96 ng/dL (0.78-2.19)
[2021-02-16 09:25] LABS: Erythrocyte Sedimentation Rate 28 mm/hr (0-20)
[2021-02-16] MEDS: DEXAMETHASONE SOD PHOSPHATE 4 MG/ML 1 ML VIAL IV SCH (09:53)
[2021-02-16] MEDS: NITROFURANTOIN MONOHYD/M-CRYST 100 MG CAP PO SCH (09:54)
[2021-02-16] MEDS: CLOPIDOGREL 75 MG TAB PO SCH (09:54)
[2021-02-16] MEDS: APIXABAN 5 MG TAB PO SCH (09:54)
[2021-02-16] MEDS: GABAPENTIN 300 MG CAP PO SCH (09:54)
[2021-02-16] MEDS: allopurinoL 100 MG TAB PO SCH (09:54)
[2021-02-16] MEDS: CYCLOBENZAPRINE 5 MG TAB PO SCH (09:54)
[2021-02-16] MEDS: DULoxetine HCL 60 MG CAPSULE.DR PO SCH (09:54)
[2021-02-16] MEDS: HYDROcodone/APAP 10-325MG 1 EACH TAB PO PRN (09:55)
[2021-02-16] MEDS: atenoloL 50 MG TAB PO SCH (09:55)
[2021-02-16] MEDS: IPRATROPIUM BROMIDE 0.06% NASAL SPRAY (15 ML) EA NOSTRIL SCH (09:56)
--- NOTE | 2021-02-16 10:36 | P.DS ---
Providers Date of admission: 02/13/21 17:46 Expected date of discharge: 02/16/21 Attending physician: Carlos Enrique Farooq Consults: 02/13/21 17:47 Consult Physician Urgent Consulting Provider: Jesus Villarreal Consult Reason/Comments: acute right foot paresis, suspected cva Do you want consulting provider notified?: Yes 02/13/21 23:05 Consult Physician Urgent Consulting Provider: Henry Schmid Consult Reason/Comments: r/o CVA Do you want consulting provider notified?: Yes, Notify in am 02/14/21 11:10 Consult Physician Routine Consulting Provider: Claudio Plummer Consult Reason/Comments: prev lumbar surgery, RLE weakness Do you want consulting provider notified?: Yes Primary care physician: Alvarez Rocha [facility] Course: 81-year-old female one of Dr. Rocha patient with multiple medical problem known to have history of multiple stroke with bilateral hemisphere involvement last time was in 01/01/2021 after she had procedure for brachial occlusion post balloon angioplasty and stent developed to have stroke had affected the right side patient was the hospital for a few days was discharged home afterward has been doing well has been on Eliquis was post to be on Plavix originally which patient has not been taking Plavix since. Patient had history of non-Hodgkin lymphoma had severe chronic lower back pain post multiple lipid urine injection along with to fusion of the thoracic and lumbar spine by Dr. Plummer in town last one was over 6 month ago each patient has not done well mobility [place] dependency. Patient was in rehab for long time. Since her recovering from stroke over 6 weeks ago patient has been doing well apparently was shopping with her family today when around 2:00 in the afternoon developed to have significant weakness of the right side mostly in the leg and the arm and felt extremely weak she lost her balance and almost fell down her family had help her. Patient was transported to [facility] continue to have significant weakness the right side had slight visual disturbance without any other stroke finding. Patient right-sided weakness improved some but continued to be still significant compared to the other side. CAT scan of the brain didn't show any bleed at the time, patient blood sugar was mildly elevated the rest of her lab did not show any abnormality. CT of the brain showed age- related atrophy with chronic small vessel ischemic without any acute intracranial processes seen, CTA of the head and neck shows no major abnormality with her carotid without any change in into or extracranial circulation. Patient will be admitted to the hospital be seen neurology MRI of the brain will be done patient be started back on PTOT. 02/14: Patient continues to have right-sided weakness more so to the right leg. Dusky changes to the right fingertips remains improved from last admission. Arterial study has been ordered for the lower extremities. Patient has been afebrile, heart rate 102, blood pressure 126/67 and pulse ox 100% on room air. Capillary blood glucose running between 119 144. Patient has been seen by neurology for acute right lower extremity weakness worsening from her baseline likely due to ischemic stroke but MRI is negative for acute stroke and MRI of the lumbar area is planned. Eliquis 5 mg twice daily is temporarily on hold while patient is on aspirin 81 mg daily and Plavix 75 mg daily. Patient to continue Lipitor 40 mg daily. Patient is also been seen by cardiology with recommendations to continue anticoagulation and continue atenolol 50 mg twice daily and Lipitor. No further workup at this time. Patient is scheduled for outpatient stress test through the office and will follow-up thereafter. Cardiology is following on an as- needed basis. Follow-up with Dr. Edward's and has been ordered as patient has had previous surgery and due to right lower extremity weakness ruled out CVA by MRI. PT and OT are in place. MRI of the brain reveals chronic-appearing white matter changes the largest within the right cerebellum is somewhat smaller than comparison. Remaining white matter changes and some cortical change at the right vertex are stable. No new suspicious acute ischemic changes evident. Limited echocardiogram reveals EF of 55-60% with mild aortic stenosis with gradient 24.98 mmHg/13.39 mmHg. Venous ultrasound of the right lower extremity is negative for DVT. 02/15: Patient evaluated this morning, still has complaints of groin pain, lower back pain, and right leg numbness as well as right upper extremity numbness. Overall her weakness has improved from yesterday. She underwent CT of the lumbar and thoracic spine, does not appear significantly different from the prior exams, MRI revealed a large posterior T12 through L1 disc herniation with osteophyte formation that were unchanged, there is no any significant spinal stenosis. Will increase Decadron to 8 mg every 8 hours, will order thyroid along with B12 and sed rate for tomorrow. 02/16: Patient evaluated this morning, patient up in the bedside chair eating breakfast. Patients right upper extremity and right lower extremity weakness seems to be improving slowly. She was able to ambulate yesterday with her walker with assistance. Orthopedic recommends to continue with conservative management along with physical therapy and steroids. Will continue with weightbearing as tolerated with her walker. Patient continues on Eliquis along with Plavix and Lipitor for stroke prophylaxis. She'll be discharged home with homecare, will continue dexamethasone steroid taper Discharge diagnoses 1. CVA with worsening right-sided weakness. 2. Severe right sided weakness mostly in the right lower extremity 3. Debility 4. History of pulmonary embolism 5. Diabetes mellitus type 2. 6. Non-Hodgkin's [place] [address] Monaco and follows with Dr. Aranda, in remission. 7. History of TIA with no deficits. 8. 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 9. Hypertension. 10. Hypothyroidism. 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 Recurrent depression. 13. Chronic gout. 14. Hyperlipidemia. 15. Restless leg syndrome. The above impression and plan of care have been discussed and directed by signing physician. Luciana Cruz nurse practitioner acting as scribe for signing physician. Patient Condition at Discharge: Stable Plan - Discharge Summary Discharge Rx Participant: Yes New Discharge Prescriptions: New dexAMETHasone [Dexamethasone] 4 mg PO DIRECTED #32 tablet Continue allopurinoL [Zyloprim] 100 mg PO DAILY Calcium Carb-Vit D 500Mg-5Mcg [Oscal 500+D 5 Mcg (200 Iu)] 1 tab PO DAILY Levothyroxine Sodium [Synthroid] 12.5 mcg PO DAILY Alpha Lipoic Acid 600 mg PO DAILY Gabapentin [Neurontin] 300 mg PO TID Ipratropium [place] 0.06%Nasal [Atrovent Nasal 0.06%] 2 spr EA NOSTRIL BID HYDROcodone/APAP 10-325MG [[place]ilion 10-325] 1 tab PO BID PRN PRN Reason: Pain Biotin 10 mg PO DAILY Dexlansoprazole [Dexilant] 60 mg PO DAILY Empaglifloz/Linaglip/Metformin [Trijardy Xr 25-5-1,000 mg Tab] 1 tab PO DAILY Temazepam [Restoril] 15 mg PO HS Apixaban [Eliquis] 5 mg PO BID rOPINIRole HCL [Requip] 2 mg PO BID@0800,1200 DULoxetine HCL [Cymbalta] 60 mg PO DAILY Nitrofurantoin Monohyd/M-Cryst [Macrobid] 100 mg PO DAILY methocarbamoL [Robaxin] 500 mg PO TID PRN PRN Reason: Muscle Spasm Nuno-E 1000mg 1,000 mg PO DAILY Cholecalciferol [Vitamin D3 (25 Mcg = 1000 Iu)] 25 mcg PO DAILY Estradiol Cream [Estrace Cream 0.01%] 1 gm VAGINAL SUTH rOPINIRole HCL [Requip] 4 mg PO HS Atorvastatin [Lipitor] 40 mg PO HS Loperamide [Imodium] 2 mg PO TID PRN PRN Reason: Diarrhea Clopidogrel [Plavix] 75 mg PO DAILY #30 tab Collagenase [Santyl] 1 applic TOPICAL DAILY Psyllium Husk (with Sugar) [Metamucil Powder] 6 gm PO BID Atenolol [Tenormin] 50 mg PO BID Discharge Medication List Calcium Carb-Vit D 500Mg-5Mcg [Oscal 500+D 5 Mcg (200 Iu)] 1 tab PO DAILY 01/05/14 [History] allopurinoL [Zyloprim] 100 mg PO DAILY 01/05/14 [History] Levothyroxine Sodium [Synthroid] 12.5 mcg PO DAILY 03/16/14 [History] Alpha Lipoic Acid 600 mg PO DAILY 07/03/20 [History] Gabapentin [Neurontin] 300 mg PO TID 07/03/20 [History] Ipratropium [place] 0.06%Nasal [Atrovent Nasal 0.06%] 2 spr EA NOSTRIL BID 07/03/20 [History] Biotin 10 mg PO DAILY 07/15/20 [History] HYDROcodone/APAP 10-325MG [P[place]ilion 10-325] 1 tab PO BID PRN 07/15/20 [History] Dexlansoprazole [Dexilant] 60 mg PO DAILY 08/07/20 [History] Empaglifloz/Linaglip/Metformin [Trijardy Xr 25-5-1,000 mg Tab] 1 tab PO DAILY 09/20/20 [History] Apixaban [Eliquis] 5 mg PO BID 10/06/20 [History] Temazepam [Restoril] 15 mg PO HS 10/06/20 [History] methocarbamoL [Robaxin] 500 mg PO TID PRN 12/03/20 [History] rOPINIRole HCL [Requip] 2 mg PO BID@0800,1200 12/03/20 [History] Cholecalciferol [Vitamin D3 (25 Mcg = 1000 Iu)] 25 mcg PO DAILY 12/17/20 [History] DULoxetine HCL [Cymbalta] 60 mg PO DAILY 12/17/20 [History] Estradiol Cream [Estrace Cream 0.01%] 1 gm VAGINAL SUTH 12/17/20 [History] Nuno-E 1000mg 1,000 mg PO DAILY 12/17/20 [History] Atorvastatin [Lipitor] 40 mg PO HS 12/27/20 [History] rOPINIRole HCL [Requip] 4 mg PO HS 12/27/20 [History] Loperamide [Imodium] 2 mg PO TID PRN 12/30/20 [History] Clopidogrel [Plavix] 75 mg PO DAILY #30 tab 01/06/21 [Rx] Atenolol [Tenormin] 50 mg PO BID 02/13/21 [History] Collagenase [Santyl] 1 applic TOPICAL DAILY 02/13/21 [History] Nitrofurantoin Monohyd/M-Cryst [Macrobid] 100 mg PO DAILY 02/13/21 [History] Psyllium Husk (with Sugar) [Metamucil Powder] 6 gm PO BID 02/13/21 [History] dexAMETHasone [Dexamethasone] 4 mg PO DIRECTED #32 tablet 02/16/21 [Rx] Follow up Appointment(s)/Referral[facility]): [facility], [[facility]] - As Needed Alvarez Rocha DO [Primary Care Provider] - 1-2 days Discharge Disposition: HOME WITH HOME HEALTH SERVICES
[2021-02-16 10:43] VITALS: TEMP 98.2
[2021-02-16 11:47] LABS: Glucose,Whole Blood 221 mg/dL (75-99)
[2021-02-16 12:27] VITALS: BP 117/76; PULSE 91; RESP 16
== END 2021-02-16 15:52 | disposition home health service (06) | DRG 65 ==
LOC: EC 15:25 → 3SCARD 17:46
PROVIDERS: ADMIT Internal Medicine Geriatric Medicine; ATTEND Internal Medicine Geriatric Medicine
DX: I63.9 Cerebral infarction, unspecified (principal); G81.91 Hemiplegia, unspecified affecting right dominant side; F33.9 Major depressive disorder, recurrent, unspecified; D68.51 Activated protein C resistance; I48.91 Unspecified atrial fibrillation; Z79.01 Long term (current) use of anticoagulants; Z86.73 Personal history of transient ischemic attack (TIA), and cerebral infarction without residual deficits; Z82.49 Family history of ischemic heart disease and other diseases of the circulatory system; Z80.1 Family history of malignant neoplasm of trachea, bronchus and lung; Z85.72 Personal history of non-Hodgkin lymphomas; Z80.3 Family history of malignant neoplasm of breast; Z82.3 Family history of stroke; Z86.711 Personal history of pulmonary embolism; E11.9 Type 2 diabetes mellitus without complications; M48.04 Spinal stenosis, thoracic region; M47.9 Spondylosis, unspecified; E78.5 Hyperlipidemia, unspecified; G25.81 Restless legs syndrome; M1A.9XX0 Chronic gout, unspecified, without tophus (tophi); K21.9 Gastro-esophageal reflux disease without esophagitis; Z88.1 Allergy status to other antibiotic agents; Z88.5 Allergy status to narcotic agent; Z88.0 Allergy status to penicillin; Z92.21 Personal history of antineoplastic chemotherapy; G89.29 Other chronic pain; Z98.1 Arthrodesis status; E03.9 Hypothyroidism, unspecified; I10 Essential (primary) hypertension; Z95.820 Peripheral vascular angioplasty status with implants and grafts; Z79.82 Long term (current) use of aspirin; Z79.02 Long term (current) use of antithrombotics/antiplatelets; Z79.890 Hormone replacement therapy; Z79.899 Other long term (current) drug therapy; Z86.718 Personal history of other venous thrombosis and embolism; Z90.710 Acquired absence of both cervix and uterus; Z92.3 Personal history of irradiation; Z96.653 Presence of artificial knee joint, bilateral; R29.810 Facial weakness; M48.061 Spinal stenosis, lumbar region without neurogenic claudication; M48.02 Spinal stenosis, cervical region; F40.240 Claustrophobia; R29.709 NIHSS score 9
CPT/HCPCS: 36415; 70450; 70496; 70498; 70551; 71046; 72128; 72131; 72148; 80053; 80061; 82607; 84439; 84443; 84484; 85025; 85610; 85652; 85730; 93308; 93922; 94760; 99285

== ENCOUNTER 2021-02-27 21:51 | Inpatient (IN) | payer MEDICARE ==
[2021-02-27] MEDS ORDERED: SODIUM CHLORIDE 0.9% 500 ML 500 ML IV STA (22:46)
[2021-02-27] MEDS ORDERED: MORPHINE SULFATE 2 MG/ML SYRINGE IVP STA (22:46)
--- NOTE | 2021-02-27 22:53 | ED ---
Extremity Problem HPI - General Chief complaint: Extremity Problem,Nontraumatic Stated complaint: R leg pain Source: patient, family, RN notes reviewed, old records reviewed Mode of arrival: ambulatory - History of Present Illness Initial comments: 81-year-old white female, alert and oriented 4, presents to emergency room with complaints of right hip pain that radiates down her right leg. Patient states that she got up this morning and did not have any pain and throughout the day and getting progressively worse. Patient is tearful states that the pain is worse in her right groin but also has pain in her right hip. She denies any injuries did not Fall. Patient is taking liquids and Plavix that she had surgery in December after angioplasty and stent. She also developed a right brachiocephalic stenosis. Family at bedside states that patient was complaining of pain to the right leg and she had rotated her right foot internally stating that she could not straighten it. Her daughter states that she tried to straighten it but patient states that it caused wqrsening pain. MD Complaint: extremity pain -: days(s) (1) Location: right, lower extremity History of Same: No Radiation: distal Severity scale (1-10): 8 Quality: aching Consistency: constant Improves with: nothing Worsens with: other (movement) Associated Symptoms: denies other symptoms - Related Data Home Medications Medication Instructions Recorded Confirmed Calcium Carb-Vit D 500Mg-5Mcg 1 tab PO DAILY 01/05/14 02/13/21 [Oscal 500+D 5 Mcg (200 Iu)] allopurinoL [Zyloprim] 100 mg PO DAILY 01/05/14 02/13/21 Levothyroxine Sodium [Synthroid] 12.5 mcg PO DAILY 03/16/14 02/13/21 Alpha Lipoic Acid 600 mg PO DAILY 07/03/20 02/13/21 Gabapentin [Neurontin] 300 mg PO TID 07/03/20 02/13/21 Ipratropium [place] 0.06%Nasal 2 spr EA NOSTRIL BID 07/03/20 02/13/21 [Atrovent Nasal 0.06%] Biotin 10 mg PO DAILY 07/15/20 02/13/21 HYDROcodone/APAP 10-325MG [Center 1 tab PO BID PRN 07/15/20 02/13/21 10-325] Dexlansoprazole [Dexilant] 60 mg PO DAILY 08/07/20 02/13/21 Empaglifloz/Linaglip/Metformin 1 tab PO DAILY 09/20/20 02/13/21 [Trijardy Xr 25-5-1,000 mg Tab] Apixaban [Eliquis] 5 mg PO BID 10/06/20 02/13/21 Temazepam [Restoril] 15 mg PO HS 10/06/20 02/13/21 methocarbamoL [Robaxin] 500 mg PO TID PRN 12/03/20 02/13/21 rOPINIRole HCL [Requip] 2 mg PO BID@0800,1200 12/03/20 02/13/21 Cholecalciferol [Vitamin D3 (25 25 mcg PO DAILY 12/17/20 02/13/21 Mcg = 1000 Iu)] DULoxetine HCL [Cymbalta] 60 mg PO DAILY 12/17/20 02/13/21 Estradiol Cream [Estrace Cream 1 gm VAGINAL SUTH 12/17/20 02/13/21 0.01%] Nuno-E 1000mg 1,000 mg PO DAILY 12/17/20 02/13/21 Atorvastatin [Lipitor] 40 mg PO HS 12/27/20 02/13/21 rOPINIRole HCL [Requip] 4 mg PO HS 12/27/20 02/13/21 Loperamide [Imodium] 2 mg PO TID PRN 12/30/20 02/13/21 Atenolol [Tenormin] 50 mg PO BID 02/13/21 02/13/21 Collagenase [Santyl] 1 applic TOPICAL DAILY 02/13/21 02/13/21 Nitrofurantoin Monohyd/M-Cryst 100 mg PO DAILY 02/13/21 02/13/21 [Macrobid] Psyllium Husk (with Sugar) 6 gm PO BID 02/13/21 02/13/21 [Metamucil Powder] Previous Rx's Medication Instructions Recorded Clopidogrel [Plavix] 75 mg PO DAILY #30 tab 01/06/21 dexAMETHasone [Dexamethasone] 4 mg PO DIRECTED #32 tablet 02/16/21 Allergies Allergy/AdvReac Type Severity Reaction Status Date / Time adhesive Allergy red skin, Verified 02/27/21 21:58 blisters [facility]] Allergy Rash/Hives Verified 02/27/21 21:58 ciprofloxacin [From Cipro] Allergy Rash/Hives Verified 02/27/21 21:58 ciprofloxacin HCl Allergy Rash/Hives Verified 02/27/21 21:58 [From Cipro] hydromorphone HCl Allergy Anaphylaxis Verified 02/27/21 21:58 [From Dilaudid] Penicillins Allergy Rash/Hives Verified 02/27/21 21:58 clindamycin AdvReac Nausea & Verified 02/27/21 21:58 Vomiting sulfamethoxazole AdvReac Abdominal Verified 02/27/21 21:58 [From Bactrim] Pain trimethoprim [From Bactrim] AdvReac Abdominal Verified 02/27/21 21:58 Pain Review of Systems ROS Statement: Those systems with pertinent positive or pertinent negative responses have been documented in the HPI. ROS Other: All systems not noted in ROS Statement are negative. Past Medical History Past Medical History: Cancer, Diabetes Mellitus, Deep Vein Thrombosis (DVT), GERD/Reflux, Hyperlipidemia, Hypertension, Osteoarthritis (OA), Pulmonary Emb olus (PE), Skin Disorder, Syncope, Thyroid Disorder Additional Past Medical History / Comment(s): TIA X2-no residual effects, VARICOSE VEINS, GOUT, LYMPHOMA (HX OF CHEMO & RADIATION 1977,1982 & 1993), hx migraines, hx ulcer, constipation, "red spots all over", states difficulty swallowing & having acid reflux., back pain-uses walker., States toenail was "cut back " yesterday 09/19/20, hammer toes. History of Any Multi-Drug Resistant Organisms: None Reported Past Surgical History: Appendectomy, Back Surgery, Breast Surgery, Cholecystectomy, Hysterectomy, Joint Replacement, Orthopedic Surgery, Tonsillectomy Additional Past Surgical History / Comment(s): RIGHT HIP REPAIR, german KNEE REPLACEMENT, rods german thumbs and rt 3rd toe, BREAST & AXILLARY BX, TUMOR IN THROAT REMOVED., CERVICAL FUSION, LUMBAR LAMINECTOMY,DECOMPRESSION-FUSION L1- L2., recent back surgery for nerve and tendons, german cataracts Past Anesthesia/Blood Transfusion Reactions: No Reported Reaction Additional Past Anesthesia/Blood Transfusion Reaction / Comment(s): CLAUSTROPHOBIA Past Psychological History: Anxiety, Depression Smoking Status: Never smoker Past Alcohol Use History: None Reported Past Drug Use History: None Reported - Past Family History Father Family Medical History: Deep Vein Thrombosis (DVT), Pulmonary Embolus Additional Family Medical History / Comment(s): Father at age 32 from pulmonary embolism. Mother Family Medical History: Cancer Additional Family Medical History / Comment(s): breast Brother(s) Family Medical History: Cancer, Deep Vein Thrombosis (DVT) Additional Family Medical History / Comment(s): 2 brothers that have passed one from myocardial infarction and one from pulmonary embolism. 2 brothers are alive and one has lung cancer, one brother is alive with a brain aneurysm and CVA. General Exam General appearance: alert, in distress Head exam: Present: atraumatic (Pain right leg), normocephalic, normal inspection Eye exam: Present: normal appearance, PERRL, EOMI. Absent: scleral icterus, conjunctival injection, nystagmus, periorbital swelling Pupils: Present: normal accommodation ENT exam: Present: normal exam, normal oropharynx, mucous membranes moist Neck exam: Present: normal inspection, full ROM. Absent: tenderness, meningismus, lymphadenopathy, thyromegaly Respiratory exam: Present: normal lung sounds bilaterally. Absent: respiratory distress, wheezes, rales, rhonchi, stridor, chest wall tenderness, accessory muscle use, decreased breath sounds, prolonged expiratory Cardiovascular Exam: Present: regular rate, normal rhythm, normal heart sounds. Absent: systolic murmur, diastolic murmur, rubs, gallop, clicks GI/Abdominal exam: Present: soft, normal bowel sounds. Absent: distended, tenderness, guarding, rebound, rigid, mass Extremities exam: Present: calf tenderness (right leg). Absent: pedal edema, joint swelling Right Hip exam: Present: tenderness, pelvic stability. Absent: full ROM, swelling, laceration, deformity, dislocation, external rotation, internal rotation, shortening Upper Leg exam: Absent: tenderness, swelling Knee exam: Present: ecchymosis. Absent: tenderness, swelling Lower Leg exam: Present: tenderness, ecchymosis. Absent: swelling Ankle exam: Absent: tenderness, swelling Foot/Toe exam: Present: ecchymosis. Absent: full ROM, tenderness, swelling, abrasion, laceration Neurovascular tendon exam: Present: no vascular compromise. Absent: pulse deficit, abnormal cap refill, extremity cold to touch, pallor Back exam: Present: full ROM. Absent: tenderness, CVA tenderness (R), CVA tenderness (L), muscle spasm, paraspinal tenderness, vertebral tenderness Neurological exam: Present: alert, oriented X3, CN II-XII intact Psychiatric exam: Present: normal affect, normal mood Skin exam: Present: warm, dry, intact, other (Patient with multiple areas of ecchymosis to all 4 extremities and abdomen.). Absent: rash Course Vital Signs 02/27/21 21:53 Temperature 97.6 F Pulse Rate 100 Respiratory 18 Rate Blood Pressure 148/76 O2 Sat by Pulse 98 Oximetry Medical Decision Making - Medical Decision Making WBC count is 14.8 with a left shift with 12.2, BUN is 24 and creatinine 0.56. Glucose is 203. Her lactic acid is 5.3 and patient was given a liter bolus and started at 130 mL normal saline an hour. X-ray of the right hip shows no acute abnormality of the pelvis of the right hip compared to old exam. There is a p late with screws fixing old intertrochanteric fracture of the right femur. Ultrasound of the right leg shows no DVT. She has strong pedal pulses equal bilaterally. Case discussed with Dr. Minor. Will admit for lactic acidosis, intractable right leg pain. - Lab Data Result diagrams: 02/27/21 22:55 02/27/21 22:55 Lab Results 02/27/21 02/27/21 02/27/21 Range/Units 22:55 22:55 22:55 WBC 14.8 H (3.8-10.6) k/uL RBC 4.31 (3.80-5.40) m/uL Hgb 13.6 (11.4-16.0) gm/dL Hct 39.9 (34.0-46.0) % MCV 92.5 (80.0-100.0) fL MCH 31.5 (25.0-35.0) pg MCHC 34.1 (31.0-37.0) g/dL RDW 16.8 H (11.5-15.5) % Plt Count 218 (150-450) k/uL MPV 7.6 Neutrophils % 82 % Lymphocytes % 7 % Monocytes % 9 % Eosinophils % 0 % Basophils % 1 % Neutrophils # 12.2 H (1.3-7.7) k/uL Lymphocytes # 1.1 (1.0-4.8) k/uL Monocytes # 1.3 H (0-1.0) k/uL Eosinophils # 0.0 (0-0.7) k/uL Basophils # 0.1 (0-0.2) k/uL Anisocytosis Slight PT 9.9 (9.0-12.0) sec INR 0.9 (<1.2) APTT 21.8 L (22.0-30.0) sec Sodium 138 (137-145) mmol/L Potassium 4.1 (3.5-5.1) mmol/L Chloride 104 (98-107) mmol/L Carbon Dioxide 21 L (22-30) mmol/L Anion Gap 13 mmol/L BUN 24 H (7-17) mg/dL Creatinine 0.56 (0.52-1.04) mg/dL Est GFR (CKD-EPI)AfAm >90 (>60 ml/min/1.73 sqM) Est GFR (CKD-EPI)NonAf 89 (>60 ml/min/1.73 sqM) Glucose 203 H (74-99) mg/dL Plasma Lactic Acid Luis (0.7-2.0) mmol/L Calcium 10.2 (8.4-10.2) mg/dL Magnesium 1.8 (1.6-2.3) mg/dL Total Bilirubin 0.5 (0.2-1.3) mg/dL AST 32 (14-36) U/L ALT 29 (4-34) U/L Alkaline Phosphatase 97 (38-126) U/L Total Protein 6.4 (6.3-8.2) g/dL Albumin 4.2 (3.5-5.0) g/dL 02/27/21 Range/Units 22:55 WBC (3.8-10.6) k/uL RBC (3.80-5.40) m/uL Hgb (11.4-16.0) gm/dL Hct (34.0-46.0) % MCV (80.0-100.0) fL MCH (25.0-35.0) pg MCHC (31.0-37.0) g/dL RDW (11.5-15.5) % Plt Count (150-450) k/uL MPV Neutrophils % % Lymphocytes % % Monocytes % % Eosinophils % % Basophils % % Neutrophils # (1.3-7.7) k/uL Lymphocytes # (1.0-4.8) k/uL Monocytes # (0-1.0) k/uL Eosinophils # (0-0.7) k/uL Basophils # (0-0.2) k/uL Anisocytosis PT (9.0-12.0) sec INR (<1.2) APTT (22.0-30.0) sec Sodium (137-145) mmol/L Potassium (3.5-5.1) mmol/L Chloride (98-107) mmol/L Carbon Dioxide (22-30) mmol/L Anion Gap mmol/L BUN (7-17) mg/dL Creatinine (0.52-1.04) mg/dL Est GFR (CKD-EPI)AfAm (>60 ml/min/1.73 sqM) Est GFR (CKD-EPI)NonAf (>60 ml/min/1.73 sqM) Glucose (74-99) mg/dL Plasma Lactic Acid Luis 5.3 H* (0.7-2.0) mmol/L Calcium (8.4-10.2) mg/dL Magnesium (1.6-2.3) mg/dL Total Bilirubin (0.2-1.3) mg/dL AST (14-36) U/L ALT (4-34) U/L Alkaline Phosphatase (38-126) U/L Total Protein (6.3-8.2) g/dL Albumin (3.5-5.0) g/dL Disposition Clinical Impression: Intractable neuropathic pain of right lower extremity, Lactic acidosis Disposition: ADMITTED IP TO THIS [facility] Condition: Fair Referrals: Alvarez Rocha DO [Primary Care Provider] - 1-2 days Decision Date: 02/28/21 Decision Time: 00:51
[2021-02-27 23:38] LABS: Anisocytosis Slight; Basophils # (A) 0.1 k/uL (0-0.2); Basophils % (A) 1 %; Eosinophils % (A) 0 %; HCT 39.9 % (34.0-46.0); HGB 13.6 gm/dL (11.4-16.0); Lymphocytes # (A) 1.1 k/uL (1.0-4.8); Lymphocytes % (A) 7 %; MCH 31.5 pg (25.0-35.0); MCHC 34.1 g/dL (31.0-37.0); MCV 92.5 fL (80.0-100.0); Mean Platelet Volume 7.6; Monocytes # (A) 1.3 k/uL (0-1.0); Monocytes % (A) 9 %; Neutrophils # (A) 12.2 k/uL (1.3-7.7); Neutrophils % (A) 82 %; Platelet Count 218 k/uL (150-450); RBC 4.31 m/uL (3.80-5.40); RDW 16.8 % (11.5-15.5); WBC 14.8 k/uL (3.8-10.6)
[2021-02-27 23:45] LABS: ALT 29 U/L (4-34); AST 32 U/L (14-36); African American GFR (CKD) >90 (>60 ml/min/1.73 sqM); Albumin 4.2 g/dL (3.5-5.0); Alkaline Phosphatase 97 U/L (38-126); Anion Gap 13 mmol/L; Blood Urea Nitrogen 24 mg/dL (7-17); Calcium 10.2 mg/dL (8.4-10.2); Carbon Dioxide 21 mmol/L (22-30); Chloride 104 mmol/L (98-107); Glucose 203 mg/dL (74-99); Magnesium 1.8 mg/dL (1.6-2.3); Non-African American GFR(CKD) 89 (>60 ml/min/1.73 sqM); Potassium 4.1 mmol/L (3.5-5.1); Sodium 138 mmol/L (137-145); Total Bilirubin 0.5 mg/dL (0.2-1.3); Total Protein 6.4 g/dL (6.3-8.2)
[2021-02-27] MEDS ORDERED: SODIUM CHLORIDE 0.9% 500 ML 500 ML IV ONE (23:50)
[2021-02-27 23:51] LABS: INR 0.9 (<1.2); Prothrombin Time 9.9 sec (9.0-12.0)
[2021-02-28 00:07] LABS: Partial Thromboplastin Time 21.8 sec (22.0-30.0)
[2021-02-28] MEDS ORDERED: MORPHINE SULFATE 4 MG/ML SYRINGE IV STA (00:26)
--- NOTE | 2021-02-28 00:35 | XR ---
EXAMINATION TYPE: XR Hip RT and AP Pelvis DATE OF EXAM: 02/27/2021 COMPARISON: 09/11/2020 HISTORY: Right hip pain TECHNIQUE: 3 views FINDINGS: There is plate with screw fixing the old intertrochanteric fracture of the right femur. I s ee no acute fracture nor dislocation. Pelvic ring is intact. There is posterior fusion surgery in the lower lumbar spine. Sacroiliac joints are intact. IMPRESSION: No acute abnormality of the pelvis and right hip. No change compared to old exam.
--- NOTE | 2021-02-28 00:36 | US ---
EXAMINATION TYPE: US venous doppler duplex LE RT DATE OF EXAM: 02/27/2021 11:58 PM COMPARISON: US CLINICAL HISTORY: pain. Pain. Hx DVT and PE. On eliquis and Plavix per patient. SIDE PERFORMED: Right TECHNIQUE: The lower extremity deep venous system is examined utilizing real time linear array sonog garfield with graded compression, doppler sonography and color-flow sonography. VESSELS IMAGED: Common Femoral Vein Deep Femoral Vein Greater Saphenous Vein * Femoral Vein Popliteal Vein Small Saphenous Vein * Proximal Calf Veins (* superficial vessels) Right Leg: No evidence of DVT in veins imaged at this time. IMPRESSION: Negative exam. No evidence of deep vein thrombosis in the right leg.
[2021-02-28] MEDS ORDERED: NALOXONE 0.4 MG/ML 1 ML VIAL IV PRN (00:55)
[2021-02-28] MEDS ORDERED: ACETAMINOPHEN TAB 325 MG TAB PO PRN (00:55)
[2021-02-28 01:40] LABS: Appearance,Urine Clear (Clear); Bacteria,Urine Rare /hpf; Bilirubin,Urine Negative (Negative); Blood,Urine Negative (Negative); Budding Yeast,Urine Occasional /hpf; Color,Urine Yellow; Glucose,Urine (UA) 4+ (Negative); Ketones,Urine 1+ (Negative); Leukocyte Esterase,Urine Moderate (Negative); Nitrite,Urine Positive (Negative); Protein,Urine Negative (Negative); RBC,Urine 3 /hpf (0-5); Specific Gravity,Urine 1.022 (1.001-1.035); Squamous Epithelial Cell,Urine 1 /hpf (0-4); Urobilinogen,Urine <2.0 mg/dL (<2.0); WBC,Urine 32 /hpf (0-5)
[2021-02-28] MEDS: SODIUM CHLORIDE 0.9% 1,000 ML IV SCH ×5 (03:28→19:06)
[2021-02-28] MEDS: MORPHINE SULFATE 4 MG/ML SYRINGE IV PRN ×2 (05:18→11:03)
[2021-02-28 07:45] LABS: Glucose,Whole Blood 131 mg/dL (75-99)
[2021-02-28] MEDS ORDERED: LOPERAMIDE 2 MG CAP PO PRN (10:35)
[2021-02-28] MEDS: IOPAMIDOL CONTRAST (ORAL USE) VIAL PO PRN ×2 (11:39→12:35)
[2021-02-28] MEDS: BACLOFEN 10 MG TAB PO PRN (11:39)
[2021-02-28] MEDS: DEXAMETHASONE SOD PHOSPHATE 4 MG/ML 1 ML VIAL IV SCH ×2 (11:43→17:45)
[2021-02-28] MEDS: allopurinoL 100 MG TAB PO SCH (11:47)
[2021-02-28] MEDS: APIXABAN 5 MG TAB PO SCH ×2 (11:47→20:49)
[2021-02-28 12:02] LABS: Glucose,Whole Blood 127 mg/dL (75-99)
--- NOTE | 2021-02-28 13:01 | P.CNOR ---
History of Present Illness - HPI Consult date: 02/28/21 Consult reason: low back pain History of present illness: 81-year-old female presents for ongoing back pain and right lower extremity pain. The patient states that his been going on for about 2 days to where she could not walk because of her right leg pain. She also complains of weakness in her right arm and right leg. She has a history of TIA CVA as well as history of back surgery. She has had a history of neck surgery as well in the remote past. She denies any bowel or bladder issues she denies any perineal numbness or tingling. She states weakness in her right leg and a feeling of cramping in her right leg and it seems acute pointing downwards. Her left lower extremity does not seem to have the same issues. Her right upper extremity she states is weak. She is also complaining of tingling in her face at this time which is what happened before she had her previous stroke. This she stated started at 12:15 PM today. She is currently in the room with her daughter nursing is at bedside as well. Denies any other issues at this time. Review of Systems 14 points review of systems completed and as stated in HPI, all other systems reviewed are negative. 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 History of Any Multi-Drug Resistant Organisms: None Reported Past Surgical History: Appendectomy, Back Surgery, Bladder Surgery, Breast Surgery, Cholecystectomy, Hysterectomy, Joint Replacement, Orthopedic Surgery, Tonsillectomy Additional Past Surgical History / Comment(s): 12/2020 PTBA with stent R brachial/cephalic artery, cervical fusion, lumbar laminectomy, R hip repair, bilateral thumbs/rods, R 3rd toe nathaniel, bilateral total knee arthroplasties, pain clinic procedures, R femur biopsy, D&Cs, bladder suspension, EGD, colonoscopies, L breast biopsy/axilary bx, bilateral cataract removals. Past Anesthesia/Blood Transfusion Reactions: No Reported Reaction Additional Past Anesthesia/Blood Transfusion Reaction / Comm: CLAUSTROPHOBIA Smoking Status: Never smoker - Past Family History Father Family Medical History: Deep Vein Thrombosis (DVT), Pulmonary Embolus Additional Family Medical History / Comment(s): Father at age 32 from pulmonary embolism. Mother Family Medical History: Cancer Additional Family Medical History / Comment(s): breast Brother(s) Family Medical History: Cancer, CVA/TIA, Deep Vein Thrombosis (DVT), Myocardial Infarction (ME), Pulmonary Embolus, Vascular Disorder Additional Family Medical History / Comment(s): 2 brothers that have passed one from myocardial infarction and one from pulmonary embolism. 2 brothers are alive and one has lung cancer, one brother is alive with a brain aneurysm and CVA. Medications and Allergies Home Medications Medication Instructions Recorded Confirmed Type Calcium Carb-Vit D 500Mg-5Mcg 1 tab PO DAILY 01/05/14 02/28/21 History [Oscal 500+D 5 Mcg (200 Iu)] allopurinoL [Zyloprim] 100 mg PO DAILY 01/05/14 02/28/21 History Levothyroxine Sodium [Synthroid] 12.5 mcg PO DAILY 03/16/14 02/28/21 History Gabapentin [Neurontin] 300 mg PO HS 07/03/20 02/28/21 History Ipratropium [place] 0.06%Nasal 2 spr EA NOSTRIL BID 07/03/20 02/28/21 History [Atrovent Nasal 0.06%] HYDROcodone/APAP 10-325MG [[place] 1 tab PO BID PRN 07/15/20 02/28/21 History 10-325] Dexlansoprazole [Dexilant] 60 mg PO DAILY PRN 08/07/20 02/28/21 History Empaglifloz/Linaglip/Metformin 1 tab PO DAILY 09/20/20 02/28/21 History [Trijardy Xr 25-5-1,000 mg Tab] Apixaban [Eliquis] 5 mg PO BID 10/06/20 02/28/21 History Temazepam [Restoril] 15 mg PO HS 10/06/20 02/28/21 History DULoxetine HCL [Cymbalta] 60 mg PO DAILY 12/17/20 02/28/21 History Estradiol Cream [Estrace Cream 1 gm VAGINAL SUTH 12/17/20 02/28/21 History 0.01%] Atorvastatin [Lipitor] 40 mg PO HS 12/27/20 02/28/21 History rOPINIRole HCL [Requip] 4 mg PO HS 12/27/20 02/28/21 History Loperamide [Imodium] 2 mg PO TID PRN 12/30/20 02/28/21 History Clopidogrel [Plavix] 75 mg PO DAILY #30 tab 01/06/21 02/28/21 Rx Atenolol [Tenormin] 50 mg PO BID 02/13/21 02/28/21 History Collagenase [Santyl] 1 applic TOPICAL DAILY 02/13/21 02/28/21 History Psyllium Husk (with Sugar) 6 gm PO BID 02/13/21 02/28/21 History [Metamucil Powder] DULoxetine HCL [Cymbalta] 30 mg PO DAILY 02/28/21 02/28/21 History Doxycycline Hyclate 100 mg PO DAILY 02/28/21 02/28/21 History dexAMETHasone [Dexamethasone] See Taper PO DIRECTED 02/28/21 02/28/21 History Allergies Allergy/AdvReac Type Severity Reaction Status Date / Time adhesive Allergy red skin, Verified 02/28/21 06:55 blisters cefaclor [From Ceclor] Allergy Rash/Hives Verified 02/28/21 06:55 ciprofloxacin [From Cipro] Allergy Rash/Hives Verified 02/28/21 06:55 ciprofloxacin HCl Allergy Rash/Hives Verified 02/28/21 06:55 [From Cipro] hydromorphone HCl Allergy Anaphylaxis Verified 02/28/21 06:55 [From Dilaudid] Penicillins Allergy Rash/Hives Verified 02/28/21 06:55 clindamycin AdvReac Nausea & Verified 02/28/21 06:55 Vomiting sulfamethoxazole AdvReac Abdominal Verified 02/28/21 06:55 [From Bactrim] Pain trimethoprim [From Bactrim] AdvReac Abdominal Verified 02/28/21 06:55 Pain Physical Examination Osteopathic Statement: *. No significant issues noted on an osteopathic structural exam other than those noted in the History and Physical/Consult. PHYSICAL EXAMINATION: Vitals: Stable at this time General: Awake, alert, appropriate for age, in no acute distress. HEENT: No unusual neck masses around region of lateral neck triangle, thyroid, supraclavicular groove. Extremities: Skin warm and dry without no acute lesions, coloration, temperature, skin intact, no tenderness or erythema. Integument: Hairy patches: Absent Dorsal skin dimples: Absent Cafe au lait spots: Absent Surgical incisions: Incisions clean dry and intact Palpation: Please see Pain drawing on Intake sheet for further detail. (Tenderness = T, Nontender = NT, Swelling = S, Ecchymosis = E) Findings on Midline and paraspinal palpation and percussion: Cervical: NT Thoracic: NT Lumbar: NT Sacral: NT Special findings: No tenderness to palpation Abdomen is nontender nondistended POSTURAL and MUSCULO-SKELETAL EVALUATION: Neck ROM: [Unrestricted in six directions] Lumbar ROM: [Unrestricted in six directions] Shoulder ROM: Symmetric in abduction, ER/IR Hip ROM: Symmetric in abduction, adduction, ER/IR Knee ROM: Symmetric and intact in Flexion / extension Hands: Normal appearing structure L and R Feet: Normal appearing structure L and R She is having some Chris posturing of her right foot VASCULAR STATUS : Wrist Pulses: [2/4 bilateral radial and ulnar] Pedal Pulses: [2/4 bilateral DP and PT] Color: [Normal] Edema: [None] NEUROLOGIC EXAMINATION: Mental Status: Awake and alert, fully oriented, with normal attention, concentration and memory, and fluent, appropriate speech. Cranial Nerves: I: Olfactory not tested. II: Visual acuity normal, no visual field deficit noted with confrontation. III,IV: Normal pupillary reflexes & intact extraocular movements without nystagmus. V,: Intact symmetrical facial sensation. VII: Intact symmetrical facial motor movement VIII: Hearing intact. IX,X: Intact gag, swallow, & normal voice. XI: Sternocleidomastoid, trapezius function intact. XII: Tongue midline with normal movements. Special Tests: L'hermitte's Sign: Absent Spurling'Sign: Absent Bilateral Cubital percussion test: Absent Bilateral Dolly-Tinel sign - Carpal region: Absent Bilateral Straight Leg Raising: Absent Bilateral Motor Exam (0-5/5, N/T) STRENGTH UPPER EXTREMITY Shoulder Abd (Not part of LEONA Motor score): RIGHT [4] LEFT [5] Elbow Flexors: RIGHT 4 LEFT [5] Elbow Extensor: RIGHT 4 LEFT [5] Wrrist Dorsiflexors: RIGHT 4 LEFT [5] Finger Abductor: RIGHT 4 LEFT [5] Quarter Seamer: RIGHT 4 LEFT [5] LOWER EXTREMITY Hip Flexor (Not part of LEONA Motor Score): RIGHT 4- LEFT [5] Knee Flexor: RIGHT 4- LEFT [5] Knee Extensor: RIGHT 4+ LEFT [5] Ankle Dorsiflexion: RIGHT 4 LEFT [5] Ankle Plantarflexion: RIGHT 5 LEFT [5] EHL: RIGHT 4 LEFT [5] FHL: RIGHT [5] LEFT [5] She is having some Chris posturing of her right foot she complains of pain in her right leg with movement. When distracted however she is able to flex her hip and extend her knee with good strength and she is able to hold against gravity by herself. She is able to dorsiflex and plantar flex on the right however it seems difficult for her to control. EHL and FHL REFLEXES Biecp: RIGHT [2] LEFT [2] Tricep: RIGHT [2] LEFT [2] Brachioradialis: RIGHT [2] LEFT [2] Patellar: RIGHT [2] LEFT [2] Achilles: RIGHT [2] LEFT [2] No hyperreflexia at this time Pathological Reflexes Franklin's: RIGHT [Absent] LEFT [Absent] Babinski: RIGHT negative however patient does hold great toe and upwards fashion this may be due to retraction it is difficult to determine LEFT [Absent] Clonus: RIGHT [None] LEFT [None] SENSORY Joint Position: [Intact bilaterally] Vibration [Intact bilaterally] Pain and LT sense [Intact C5-T1 and L2-S1] Dermatomal deficit [None] Gait and Functional Evaluation: Ambulatory aids: Walker Romberg's test: Intact bilaterally. Hand and finger dexterity intact bilaterally[]. Disdiadochokinesis examination negative[] bilaterally. Results Pelvis and hip x-rays demonstrate postsurgical changes the right hip with hardware in good position no evidence of fracture or dislocation. Postsurgical hardware in the lumbar spine is visualized no interval changes at this time. - Labs Labs: Abnormal Lab Results - Last 24 Hours (Table) 02/27/21 02/27/21 02/27/21 Range/Units 22:55 22:55 22:55 WBC 14.8 H (3.8-10.6) k/uL RDW 16.8 H (11.5-15.5) % Neutrophils # 12.2 H (1.3-7.7) k/uL Monocytes # 1.3 H (0-1.0) k/uL APTT 21.8 L (22.0-30.0) sec Carbon Dioxide (22-30) mmol/L BUN (7-17) mg/dL Glucose (74-99) mg/dL POC Glucose (mg/dL) (75-99) mg/dL Plasma Lactic Acid Luis (0.7-2.0) mmol/L Urine Glucose (UA) 4+ H (Negative) Urine Ketones 1+ H (Negative) Urine Nitrite Positive H (Negative) Ur Leukocyte Esterase Moderate H (Negative) Urine WBC 32 H (0-5) /hpf Urine Bacteria Rare H (None) /hpf Urine Yeast (Budding) Occasional H (None) /hpf 02/27/21 02/27/21 02/28/21 Range/Units 22:55 22:55 02:47 WBC (3.8-10.6) k/uL RDW (11.5-15.5) % Neutrophils # (1.3-7.7) k/uL Monocytes # (0-1.0) k/uL APTT (22.0-30.0) sec Carbon Dioxide 21 L (22-30) mmol/L BUN 24 H (7-17) mg/dL Glucose 203 H (74-99) mg/dL POC Glucose (mg/dL) (75-99) mg/dL Plasma Lactic Acid Luis 5.3 H* 2.9 H* (0.7-2.0) mmol/L Urine Glucose (UA) (Negative) Urine Ketones (Negative) Urine Nitrite (Negative) Ur Leukocyte Esterase (Negative) Urine WBC (0-5) /hpf Urine Bacteria (None) /hpf Urine Yeast (Budding) (None) /hpf 02/28/21 02/28/21 Range/Units 07:43 12:00 WBC (3.8-10.6) k/uL RDW (11.5-15.5) % Neutrophils # (1.3-7.7) k/uL Monocytes # (0-1.0) k/uL APTT (22.0-30.0) sec Carbon Dioxide (22-30) mmol/L BUN (7-17) mg/dL Glucose (74-99) mg/dL POC Glucose (mg/dL) 131 H 127 H (75-99) mg/dL Plasma Lactic Acid Luis (0.7-2.0) mmol/L Urine Glucose (UA) (Negative) Urine Ketones (Negative) Urine Nitrite (Negative) Ur Leukocyte Esterase (Negative) Urine WBC (0-5) /hpf Urine Bacteria (None) /hpf Urine Yeast (Budding) (None) /hpf Microbiology - Last 24 Hours (Table) 02/27/21 22:55 Urine Culture - Preliminary Urine,Voided H & H 02/27/21 Range/Units 22:55 Hgb 13.6 (11.4-16.0) gm/dL Hct 39.9 (34.0-46.0) % Coagulation 02/27/21 Range/Units 22:55 INR 0.9 (<1.2) Result Diagrams: 02/27/21 22:55 02/27/21 22:55 Assessment and Plan Assessment: 81-year-old female with complex medical history history of TIA stroke upper extremity DVT lower extremity weakness and pain with radiculopathy history of surgical intervention low back history of anterior cervical discectomy and fusion with continued cervical stenosis. Multiple comorbidities On anticoagulation Plan: -Appreciate biometrics consultant and team management. -Activity: Ambulate QID, OOB all meals, up and about, limit lifting bending twisting to less than 5 lbs. Use walker or cane if needed for stability. -Daily PT/OT, increase ambulation strength and balance. -Pain control: Increase gabapentin to 603 times a day continue with Decadron IV -Meds: [reviewed] -GI ppx: senna, Miralax -DVT PPX: Continue with anticoagulation protocol -Hygiene: Shower daily Maintain dressing clean and dry. Meticulous cleaning after BMs away from incision site -Encourage IS 10x/hr -Dispo: [Pending] I discussed at length with the patient her daughter who is at bedside the extreme risks that she poses for any surgical intervention. Discussed with her that is difficult to determine at this time where her pain is coming from why she is having is posturing or cramping. She has multiple different areas in her spine where she has issues. She previously had a cervical fusion anteriorly and she has C2 3 stenosis as well as C7-T1 stenosis however she is not having myelomalacia and these areas. She has had upper extremity and lower extremity issues for a while. She said recent falls as well. She also has a history of a T12-L1 bony lesion that she had fused and decompressed previously. She does have decompression from T12 to L2 which should provide room posteriorly despite the computed tomography scan showing increased bone within this area. I do not know that this is causing her symptoms at this time. She is presenting more of a cord type symptom etiology or brain symptom etiology with higher up functions being disrupted. The numbness and tingling on her face concerns me again for continued strokelike symptoms and she is being neural monitor at this time. We will ask neurology to see her in consult. I discussed with them that she is extremely high risk for any surgical intervention secondary to her multiple comorbidities medications anticoagulation and that if we can avoid it we should. She agreed to just wants her symptoms to be treated and so we will treat her symptoms with increased gabapentin steroids and further discussion. She is comfortable with this plan of care
--- NOTE | 2021-02-28 13:46 | P.HPIM ---
History of Present Illness H&P Date: 02/28/21 HISTORY OF PRESENT ILLNESS This is a 81-year-old female one of Dr. Rocha patient with past medical history of Factor V Leiden deficiency, type 2 diabetes, non-Hodgkin's lymphoma [place] [address] Monaco and follows with Dr. Aranda status post chemotherapy and radiation therapy, hypertension, hyperlipidemia, hypertension, hypothyroidism, restless leg syndrome, recurrent depression, and osteoarthritis who has been treated for lower back pain post multiple lower back surgery and epidural injection with pain management at [facility], previous admission for acute GI bleed and acute blood loss anemia status post EGD and colonoscopy which revealed antral gastritis, area of ulceration, nonbleeding, in the distal transverse colon, history of pulmonary embolism and left lower leg DVT diagnosed 03/08/2020 on eliquis, history of multiple strokes with bilateral hemisphere including 1 in 01/01/2021 after she had procedure for right brachiocephalic stenosis status post percutaneous transluminal angioplasty and stent placement developed stroke that affected the right side. Patient was hospitalized in January for CVA with worsening right-sided weakness and was also seen by Dr. Edward's in for right lower extremity weakness. Patient is complaining of significant pain in the right hip and groin area. She has pain from the thigh all the way to the foot with right lower quadrant tenderness. She states she has back pain on and off and has been on oral st eroids and recently treated for urinary tract infection with 1-2 more days of antibiotics to complete. She complains of significant stiffness of the right leg and tickly feeling in the foot all the way to the thigh but sensation on the left leg is normal. Patient states she had sudden onset yesterday when she got up from the chair on the porch in her right foot rolled over. She went in the house and laid down and elevating her legs but this does not seem to help manage came in the hospital for further evaluation. Pulse ox 90% on room air. WBC 14.8, Hemoccult 13.6, platelet count 218. Sodium 138, potassium 4.1, chloride 104, CO2 21, BUN 24 and creatinine 0.56. Blood sugar 203. Lactic acid was 5.3 and she was given 1 L of IV fluid followed by 130 mL per hour. X-ray of the right hip showed no acute abnormality of the pelvis or right hip. There are plate and screws for old intertrochanteric fracture of the right hip. Ultrasound of the right lower extremity was negative for DVT. Repeat lactic acid 1.9. Urinalysis clear, glucose 4+, ketones 1+, nitrate positive, leukoesterase moderate, WBC 32, bacteria rare. Urine culture and blood culture obtained. CAT scan of the abdomen and pelvis as well as orthopedic consult was added. Patient admitted to the [facility] floor, IV Deca dron added and gabapentin increased frequency. REVIEW OF SYSTEMS Constitutional: No fever, no chills, no night sweats. No weight change. Reports weakness, reports fatigue denies lethargy. No daytime sleepiness. EENT: No headache. No blurred vision or double vision, no loss of vision. No loss of Hearing, no ringing in the ears, Reports dizziness. No nasal drainage or congestion. No epistaxis. No sore throat. Lungs: Denies shortness of breath, cough, no sputum production. No wheezing. Cardiovascular: No chest pain, no left lower extremity edema. No palpitations. No paroxysmal nocturnal dyspnea. No orthopnea. No lightheadedness or dizziness. No syncopal episodes. Abdominal: No abdominal pain. No nausea, vomiting. No diarrhea. No constipation. No bloody or tarry stools.. No loss of appetite. Genitourinary: No dysuria, increased frequency, urgency. No urinary retention. Reports incontinence, loss of bladder control Musculoskeletal: No myalgias. Reports muscle weakness, reports gait dysfunction, reports 2 recent falls. Reports back pain. No neck pain. Reports right leg pain, stiffness, numbness Integumentary: No wounds, no lesions. No rash or pruritus. No unusual bruising. Slight purple color of the fingertip with possibility of arterial thrombus. Neurologic: No aphasia. No facial droop. No change in mentation. No head injury. No headache. No paralysis. No paresthesia. Psychiatric: No depression. No anxiety. No mood swings. Endocrine: No abnormal blood sugars. SOCIAL HISTORY Patient is a lifelong nonsmoker. No alcohol use, marijuana use, illicit drug use. 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 Patient lives alone with her daughter. She ambulates with a walker. She has been at [facility] for subacute rehab in the past. FAMILY HISTORY Mother in her late 80s from breast cancer and dementia. Father at age 32 from pulmonary embolism and DVT. Patient has 2 brothers and a past, one from myocardial infarction and one from pulmonary embolism. 2 brothers are alive and one has lung cancer and one living brother has a brain aneurysm and CVA. Patient has 5 biological children with no major medical problems. PHYSICAL EXAMINATION Gen: This is A 80-year-old female. Patient is resting in bed appears to be uncomfortable. No respiratory distress is noted. HEENT: Head is atraumatic, normocephalic. Pupils equal, round. Sclerae is anicteric. NECK: Supple. No JVD. No lymphadenopathy. No thyromegaly. LUNGS: Clear to auscultation. No wheezes or rhonchi. No intercostal retractions. HEART: Regular rate and rhythm. No murmur. ABDOMEN: Soft. Bowel sounds are present. No masses. Right lower quadrant tenderness. BACK: Surgical wound is healed. No drainage, erythema. No deformity noted. EXTREMITIES: No pedal edema. No calf tenderness. Left foot drop, dorsalis pedis is +2 bilaterally. NEUROLOGICAL: Patient is awake, alert and oriented x3. Cranial nerves 2 through 12 are grossly intact. ASSESSMENT AND PLAN 1. Right lower extremity pain, stiffness and weakness. Consult with Dr. Edward, Decadron 4 mg IV every 8 hours, gabapentin increased frequency to 600 mg 3 times daily. 2. Chronic right sided weakness mostly in the right lower extremity secondary to previous stroke and lumbar disc disease. Continue eliquis 5 mg twice daily. 3. Severe lactic acidosis of unclear etiology. Patient is status post IV fluid. 4. Right lower quadrant abdominal pain. CAT scan of the abdomen and pelvis with contrast ordered. 5. History of pulmonary embolism. Continue Eliquis 5 mg twice daily. 6. Diabetes mellitus type 2. Continue Trijardy, NovoLog scale before meals and at bedtime. 7. Non-Hodgkin's lymphoma [place] [address] Monaco and follows with Dr. Aranda, in remission. 8. T12-L1 severe spondylosis, severe canal stenosis and impending conus syndrome s/p revision T12-L2 fusion and decompression with chronic back pain. Continue gabapentin 600 mg 3 times daily. 9. Hypertension. Continue atenolol 50 mg twice a day. 10. Hypothyroidism. Continue levothyroxine 12.5 g daily. 11. 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 Continue eliquis 5 mg twice daily. 12. Recurrent depression. Continue Cymbalta 90 mg daily. 13. Chronic gout. Continue allopurinol 100 mg daily. 14. Hyperlipidemia. Continue atorvastatin 40 mg at bedtime. 15. Restless leg syndrome. Continue Requip. 16. GERD and GI prophylaxis. Protonix CODE STATUS: Full code. Admit patient to the inpatient service for more than 2 night stay. DISCHARGE PLAN TBD Impression and plan of care have been directed as dictated by the signing physician. Karen Quintero nurse practitioner acting as scribe for signing physician. 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 History of Any Multi-Drug Resistant Organisms: None Reported Past Surgical History: Appendectomy, Back Surgery, Bladder Surgery, Breast Surgery, Cholecystectomy, Hysterectomy, Joint Replacement, Orthopedic Surgery, Tonsillectomy Additional Past Surgical History / Comment(s): 12/2020 PTBA with stent R br achial/cephalic artery, cervical fusion, lumbar laminectomy, R hip repair, bilateral thumbs/rods, R 3rd toe nathaniel, bilateral total knee arthroplasties, pain clinic procedures, R femur biopsy, D&Cs, bladder suspension, EGD, colonoscopies, L breast biopsy/axilary bx, bilateral cataract removals. Past Anesthesia/Blood Transfusion Reactions: No Reported Reaction Additional Past Anesthesia/Blood Transfusion Reaction / Comment(s): CLAUSTROPHOBIA Smoking Status: Never smoker - Past Family History Father Family Medical History: Deep Vein Thrombosis (DVT), Pulmonary Embolus Additional Family Medical History / Comment(s): Father at age 32 from pulmonary embolism. Mother Family Medical History: Cancer Additional Family Medical History / Comment(s): breast Brother(s) Family Medical History: Cancer, CVA/TIA, Deep Vein Thrombosis (DVT), Myocardial Infarction ([place]), Pulmonary Embolus, Vascular Disorder Additional Family Medical History / Comment(s): 2 brothers that have passed one from myocardial infarction and one from pulmonary embolism. 2 brothers are alive and one has lung cancer, one brother is alive with a brain aneurysm and CVA. Medications and Allergies Home Medications Medication Instructions Recorded Confirmed Type Calcium Carb-Vit D 500Mg-5Mcg 1 tab PO DAILY 01/05/14 02/28/21 History [Oscal 500+D 5 Mcg (200 Iu)] allopurinoL [Zyloprim] 100 mg PO DAILY 01/05/14 02/28/21 History Levothyroxine Sodium [Synthroid] 12.5 mcg PO DAILY 03/16/14 02/28/21 History Gabapentin [Neurontin] 300 mg PO HS 07/03/20 02/28/21 History Ipratropium [place] 0.06%Nasal 2 spr EA NOSTRIL BID 07/03/20 02/28/21 History [Atrovent Nasal 0.06%] HYDROcodone/APAP 10-325MG [Lannon 1 tab PO BID PRN 07/15/20 02/28/21 History 10-325] Dexlansoprazole [Dexilant] 60 mg PO DAILY PRN 08/07/20 02/28/21 History Empaglifloz/Linaglip/Metformin 1 tab PO DAILY 09/20/20 02/28/21 History [Trijardy Xr 25-5-1,000 mg Tab] Apixaban [Eliquis] 5 mg PO BID 10/06/20 02/28/21 History Temazepam [Restoril] 15 mg PO HS 10/06/20 02/28/21 History DULoxetine HCL [Cymbalta] 60 mg PO DAILY 12/17/20 02/28/21 History Estradiol Cream [Estrace Cream 1 gm VAGINAL SUTH 12/17/20 02/28/21 History 0.01%] Atorvastatin [Lipitor] 40 mg PO HS 12/27/20 02/28/21 History rOPINIRole HCL [Requip] 4 mg PO HS 12/27/20 02/28/21 History Loperamide [Imodium] 2 mg PO TID PRN 12/30/20 02/28/21 History Clopidogrel [Plavix] 75 mg PO DAILY #30 tab 01/06/21 02/28/21 Rx Atenolol [Tenormin] 50 mg PO BID 02/13/21 02/28/21 History Collagenase [Santyl] 1 applic TOPICAL DAILY 02/13/21 02/28/21 History Psyllium Husk (with Sugar) 6 gm PO BID 02/13/21 02/28/21 History [Metamucil Powder] DULoxetine HCL [Cymbalta] 30 mg PO DAILY 02/28/21 02/28/21 History Doxycycline Hyclate 100 mg PO DAILY 02/28/21 02/28/21 History dexAMETHasone [Dexamethasone] See Taper PO DIRECTED 02/28/21 02/28/21 History Allergies Allergy/AdvReac Type Severity Reaction Status Date / Time adhesive Allergy red skin, Verified 02/28/21 06:55 blisters cefaclor [From Ceclor] Allergy Rash/Hives Verified 02/28/21 06:55 ciprofloxacin [From Cipro] Allergy Rash/Hives Verified 02/28/21 06:55 ciprofloxacin HCl Allergy Rash/Hives Verified 02/28/21 06:55 [From Cipro] hydromorphone HCl Allergy Anaphylaxis Verified 02/28/21 06:55 [From Dilaudid] Penicillins Allergy Rash/Hives Verified 02/28/21 06:55 clindamycin AdvReac Nausea & Verified 02/28/21 06:55 Vomiting sulfamethoxazole AdvReac Abdominal Verified 02/28/21 06:55 [From Bactrim] Pain trimethoprim [From Bactrim] AdvReac Abdominal Verified 02/28/21 06:55 Pain Physical Exam Vitals: Vital Signs Temp Pulse Pulse Resp BP BP Pulse Ox 02/28/21 07:00 97.9 F 86 83 17 145/80 161/76 99 02/28/21 06:00 84 16 143/74 98 02/28/21 05:00 92 20 137/78 98 02/28/21 04:00 90 16 134/74 98 02/28/21 03:30 97 16 133/74 98 02/28/21 01:55 100 16 118/73 97 02/28/21 00:52 101 H 16 137/77 98 02/27/21 21:53 97.6 F 100 18 148/76 98 Intake and Output 02/27/21 02/28/21 02/28/21 22:59 06:59 14:59 Intake Total 472 Balance 472 Intake: Oral 472 Other: Weight 60.781 kg 60.781 kg Results CBC & Chem 7: 02/27/21 22:55 02/27/21 22:55 Labs: Abnormal Lab Results - Last 24 Hours (Table) 02/27/21 02/27/21 02/27/21 Range/Units 22:55 22:55 22:55 WBC 14.8 H (3.8-10.6) k/uL RDW 16.8 H (11.5-15.5) % Neutrophils # 12.2 H (1.3-7.7) k/uL Monocytes # 1.3 H (0-1.0) k/uL APTT 21.8 L (22.0-30.0) sec Carbon Dioxide (22-30) mmol/L BUN (7-17) mg/dL Glucose (74-99) mg/dL POC Glucose (mg/dL) (75-99) mg/dL Plasma Lactic Acid Luis (0.7-2.0) mmol/L Urine Glucose (UA) 4+ H (Negative) Urine Ketones 1+ H (Negative) Urine Nitrite Positive H (Negative) Ur Leukocyte Esterase Moderate H (Negative) Urine WBC 32 H (0-5) /hpf Urine Bacteria Rare H (None) /hpf Urine Yeast (Budding) Occasional H (None) /hpf 02/27/21 02/27/21 02/28/21 Range/Units 22:55 22:55 02:47 WBC (3.8-10.6) k/uL RDW (11.5-15.5) % Neutrophils # (1.3-7.7) k/uL Monocytes # (0-1.0) k/uL APTT (22.0-30.0) sec Carbon Dioxide 21 L (22-30) mmol/L BUN 24 H (7-17) mg/dL Glucose 203 H (74-99) mg/dL POC Glucose (mg/dL) (75-99) mg/dL Plasma Lactic Acid Luis 5.3 H* 2.9 H* (0.7-2.0) mmol/L Urine Glucose (UA) (Negative) Urine Ketones (Negative) Urine Nitrite (Negative) Ur Leukocyte Esterase (Negative) Urine WBC (0-5) /hpf Urine Bacteria (None) /hpf Urine Yeast (Budding) (None) /hpf 02/28/21 Range/Units 07:43 WBC (3.8-10.6) k/uL RDW (11.5-15.5) % Neutrophils # (1.3-7.7) k/uL Monocytes # (0-1.0) k/uL APTT (22.0-30.0) sec Carbon Dioxide (22-30) mmol/L BUN (7-17) mg/dL Glucose (74-99) mg/dL POC Glucose (mg/dL) 131 H (75-99) mg/dL Plasma Lactic Acid Luis (0.7-2.0) mmol/L Urine Glucose (UA) (Negative) Urine Ketones (Negative) Urine Nitrite (Negative) Ur Leukocyte Esterase (Negative) Urine WBC (0-5) /hpf Urine Bacteria (None) /hpf Urine Yeast (Budding) (None) /hpf Microbiology - Last 24 Hours (Table) 02/27/21 22:55 Urine Culture - Preliminary Urine,Voided Thrombosis Risk Factor Assmnt - Choose All That Apply Any of the Below Risk Factors Present?: Yes Each Factor Represents 1 point: Varicose veins Other Risk Factors: Yes Each Risk Factor Represents 2 Points: Patient confined to bed, Malignancy Each Risk Factor Represents 3 Points: Age 75 years or older, Family history of DVT/PE, History of DVT/PE Thrombosis Risk Factor Assessment Total Risk Factor Score: 14 Thrombosis Risk Factor Assessment Level: High Risk
[2021-02-28] MEDS: GABAPENTIN 300 MG CAP PO SCH ×2 (16:04→20:50)
[2021-02-28] MEDS: HYDROcodone/APAP 10-325MG 1 EACH TAB PO PRN (16:07)
--- NOTE | 2021-02-28 16:42 | CT ---
EXAMINATION TYPE: CT abdomen pelvis w con DATE OF EXAM: 02/28/2021 COMPARISON: 10/06/2020 HISTORY: 81-year-old female right lower quadrant Pain TECHNIQUE: Contiguous axial scanning of the abdomen and pelvis following administration of 100 ml Iso rafael 300 IV contrast. Delayed images through the kidneys and coronal/sagittal reconstructions perform ed. CT DLP: 1153 mGycm Automated exposure control for dose reduction was used. FINDINGS: Heart normal size without pericardial effusion. Coronary artery calcifications are present. Lung base s clear without pleural effusion. Some oral contrast noted within the lower third esophagus. Asymmetric elevation right hemidiaphragm is unchanged. No focal liver lesion. Mild prominence to the intrahepatic biliary system is unchanged but with michelle l distal tapering of the bile duct and patient is status post cholecystectomy. Portal venous system i s patent. Adrenal glands and pancreas within normal limits. Small calcified granulomas in the spleen. A couple subcentimeter hypodensities too small for accurate CT characterization within the left renal cortex likely small cysts. 1.8 cm cyst lateral right kidney. Symmetric uptake and excretion of contr ast from both kidneys. Mild atherosclerotic calcifications abdominal aorta without aneurysm. No dilated small bowel, free fluid, or free air. No mesenteric or retroperitoneal lymphadenopathy. Moderate stool burden. Mid sigmoid diverticulosis. Prominent solid stool within the sigmoid colon and rectum with rectum distended up to 6.2 cm wide. Uterus surgically absent. Neither ovary is identified. Bladder urine distended up to 14.5 cm. There i s a 2.6 cm focus of air along the anterior bladder wall that may be within the lumen or within the wa ll. Tiny pelvic phlebolith. Otherwise, no abnormal fluid collection in the pelvis or pelvic lymphaden opathy. Bones: Dynamic right hip screw fixation. Osteopenia. Mild to moderate degenerative change of both hip s. Postsurgical change of T12-S1 posterior and interbody fusion with corresponding laminectomies. There is vertebral compression injury of L1 with retropulsion into the ventral spinal canal but with dorsal decompression present at this level. The appearance is unchanged from 10/06/2020. IMPRESSION: 1. A 2.6 CM FOCUS OF AIR ALONG THE ANTERIOR BLADDER WALL. IN THE ABSENCE OF ANY RECENT INSTRUMENTATIO N, THIS COULD REPRESENT BLADDER WALL AIR RELATING TO INFECTION. CLINICALLY CORRELATE. THE BLADDER IS ALSO PROMINENTLY DISTENDED UP TO 14.5 CM WHICH MAY BE VOLUNTARY OR COULD REFLECT URINARY RETENTION.. 2. SIGMOID DIVERTICULOSIS WITHOUT EVIDENCE FOR ACUTE DIVERTICULITIS. MODERATE STOOL BURDEN. 3. POST SURGICAL CHANGE OF T12-S1 POSTERIOR AND INTERBODY FUSION WITH CORRESPONDING LAMINECTOMIES. CO MPRESSION DEFORMITY OF L1 WITH MILD RETROPULSION INTO THE VENTRAL SPINAL CANAL IS UNCHANGED FROM 10/06. 4. INCIDENTAL ASYMMETRIC ELEVATION RIGHT HEMIDIAPHRAGM. CORRELATE TO EXCLUDE THE POSSIBILITY OF HEMID IAPHRAGMATIC PARALYSIS.
[2021-02-28 17:33] LABS: Glucose,Whole Blood 246 mg/dL (75-99)
[2021-02-28] MEDS: INSULIN ASPART (NovoLOG) 100 UNIT/ML VIAL SQ SCH ×2 (17:49→20:49)
[2021-02-28 19:50] LABS: Glucose,Whole Blood 280 mg/dL (75-99)
[2021-02-28] MEDS: IPRATROPIUM BROMIDE 0.06% NASAL SPRAY (15 ML) EA NOSTRIL SCH (20:49)
[2021-02-28] MEDS: PSYLLIUM HUSK 100% 6 GM PACKET PO SCH (20:49)
[2021-02-28] MEDS: ATORVASTATIN 40 MG TAB PO SCH (20:49)
[2021-02-28] MEDS: rOPINIRole HCL 4 MG TABLET PO SCH (20:50)
[2021-02-28] MEDS: TEMAZEPAM 15 MG CAP PO SCH (20:50)
[2021-02-28] MEDS ORDERED: GABAPENTIN 300 MG CAP PO SCH (21:00)
[2021-03-01] MEDS: DEXAMETHASONE SOD PHOSPHATE 4 MG/ML 1 ML VIAL IV SCH ×4 (00:27→18:06)
[2021-03-01] MEDS: SODIUM CHLORIDE 0.9% 1,000 ML IV SCH ×8 (04:34→21:19)
[2021-03-01] MEDS: LEVOTHYROXINE 25 MCG TAB PO SCH (05:51)
[2021-03-01 07:50] LABS: Glucose,Whole Blood 255 mg/dL (75-99)
[2021-03-01] MEDS: INSULIN ASPART (NovoLOG) 100 UNIT/ML VIAL SQ SCH ×4 (09:11→20:11)
[2021-03-01] MEDS: CLOPIDOGREL 75 MG TAB PO SCH (09:12)
[2021-03-01] MEDS: GABAPENTIN 300 MG CAP PO SCH ×3 (09:12→20:12)
[2021-03-01] MEDS: DULoxetine HCL 60 MG CAPSULE.DR PO SCH (09:12)
[2021-03-01] MEDS: APIXABAN 5 MG TAB PO SCH ×2 (09:12→20:10)
[2021-03-01] MEDS: PSYLLIUM HUSK 100% 6 GM PACKET PO SCH ×2 (09:16→20:12)
[2021-03-01] MEDS: DULoxetine HCL 30 MG CAPSULE.DR PO SCH (09:16)
[2021-03-01] MEDS: DOXYCYCLINE 100 MG CAP PO SCH (09:16)
[2021-03-01] MEDS: allopurinoL 100 MG TAB PO SCH (09:16)
[2021-03-01] MEDS: IPRATROPIUM BROMIDE 0.06% NASAL SPRAY (15 ML) EA NOSTRIL SCH ×2 (09:17→20:11)
[2021-03-01] MEDS: HYDROcodone/APAP 10-325MG 1 EACH TAB PO PRN ×2 (09:33→18:04)
[2021-03-01] MEDS: BACLOFEN 10 MG TAB PO PRN ×2 (09:33→18:05)
[2021-03-01] MEDS: CALCIUM CARB-VIT D 500 MG-5 MCG TAB PO SCH (11:54)
--- NOTE | 2021-03-01 12:00 | P.PN ---
Subjective Progress Note Date: 03/01/21 HISTORY OF PRESENT ILLNESS This is a 81-year-old female one of Dr. Rocha patient with past medical history of Factor V Leiden deficiency, type 2 diabetes, non-Hodgkin's lymphoma [place] [address] Monaco and follows with Dr. Aranda status post chemotherapy and radiation therapy, hypertension, hyperlipidemia, hypertension, hypothyroidism, restless leg syndrome, recurrent depression, and osteoarthritis who has been treated for lower back pain post multiple lower back surgery and epidural injection with pain management at [facility], previous admission for acute GI bleed and acute blood loss anemia status post EGD and colonoscopy which revealed antral gastritis, area of ulceration, nonbleeding, in the distal transverse colon, history of pulmonary embolism and left lower leg DVT diagnosed 03/08/2020 on eliquis, history of multiple strokes with bilateral hemisphere including 1 in 01/01/2021 after she had procedure for right brachiocephalic stenosis status post percutaneous transluminal angioplasty and stent placement developed stroke that affected the right side. Patient was hospitalized in January for CVA with worsening right-sided weakness and was also seen by Dr. Edward's in for right lower extremity weakness. Patient is complaining of significant pain in the right hip and groin area. She has pain from the thigh all the way to the foot with right lower quadrant tenderness. She states she has back pain on and off and has been on oral steroids and recently treated for urinary tract infection with 1-2 more days of antibiotics to complete. She complains of significant stiffness of the right leg and tickly feeling in the foot all the way to the thigh but sensation on the left leg is normal. Patient states she had sudden onset yesterday when she got up from the chair on the porch in her right foot rolled over. She went in the house and laid down and elevating her legs but this does not seem to help manage came in the hospital for further evaluation. Pulse ox 90% on room air. WBC 14.8, Hemoccult 13.6, platelet count 218. Sodium 138, potassium 4.1, chloride 104, CO2 21, BUN 24 and creatinine 0.56. Blood sugar 203. Lactic acid was 5.3 and she was given 1 L of IV fluid followed by 130 mL per hour. X-ray of the right hip showed no acute abnormality of the pelvis or right hip. There are plate and screws for old intertrochanteric fracture of the right hip. Ultrasound of the right lower extremity was negative for DVT. Repeat lactic acid 1.9. Urinalysis clear, glucose 4+, ketones 1+, nitrate positive, leukoesterase moderate, WBC 32, bacteria rare. Urine culture and blood culture obtained. CAT scan of the abdomen and pelvis as well as orthopedic consult was added. Patient admitted to the [facility] floor, IV Decadron added and gabapentin increased frequency. 03/01: Patient states that she is feeling better today. Continues to have some weakness to the right side. This is more than likely related to the residual effect from her CVA previously. Patient was seen by orthopedics and started on steroids to help with pain control. Patient is also found to have a UTI which is currently being treated. Awaiting urinary and blood culture results. Discussed with patient the need for subacute rehab patient declined. Stating that she would be okay going home. We will initiate PTOT. Patient remains afebrile, heart rate 94, respirations 20, blood pressure 148/74, pulse ox 96% on room air. REVIEW OF SYSTEMS Constitutional: No fever, no chills, no night sweats. No weight change. Reports weakness, reports fatigue denies lethargy. No daytime sleepiness. EENT: No headache. No blurred vision or double vision, no loss of vision. No loss of Hearing, no ringing in the ears, Reports dizziness. No nasal drainage or congestion. No epistaxis. No sore throat. Lungs: Denies shortness of breath, cough, no sputum production. No wheezing. Cardiovascular: No chest pain, no left lower extremity edema. No palpitations. No paroxysmal nocturnal dyspnea. No orthopnea. No lightheadedness or dizziness. No syncopal episodes. Abdominal: No abdominal pain. No nausea, vomiting. No diarrhea. No constipation. No bloody or tarry stools.. No loss of appetite. Genitourinary: No dysuria, increased frequency, urgency. No urinary retention. Reports incontinence, loss of bladder control Musculoskeletal: No myalgias. Reports muscle weakness, reports gait dysfunction, reports 2 recent falls. Reports back pain. No neck pain. Reports right leg pain, stiffness, numbness Integumentary: No wounds, no lesions. No rash or pruritus. No unusual bruising. Slight purple color of the fingertip with possibility of arterial thrombus. Neurologic: No aphasia. No facial droop. No change in mentation. No head injury. No headache. No paralysis. No paresthesia. Psychiatric: No depression. No anxiety. No mood swings. Endocrine: No abnormal blood sugars. PHYSICAL EXAMINATION Gen: This is A 80-year-old female. Patient is resting in bed appears to be uncomfortable. No respiratory distress is noted. HEENT: Head is atraumatic, normocephalic. Pupils equal, round. Sclerae is anicteric. NECK: Supple. No JVD. No lymphadenopathy. No thyromegaly. LUNGS: Clear to auscultation. No wheezes or rhonchi. No intercostal retractions. HEART: Regular rate and rhythm. No murmur. ABDOMEN: Soft. Bowel sounds are present. No masses. Right lower quadrant tender ness. BACK: Surgical wound is healed. No drainage, erythema. No deformity noted. EXTREMITIES: No pedal edema. No calf tenderness. Left foot drop, dorsalis pedis is +2 bilaterally. NEUROLOGICAL: Patient is awake, alert and oriented x3. Cranial nerves 2 through 12 are grossly intact. ASSESSMENT AND PLAN 1. Right lower extremity pain, stiffness and weakness. Consult with Dr. Edward appreciated, Decadron 4 mg IV every 8 hours, gabapentin increased frequency to 600 mg 3 times daily. 2. Chronic right sided weakness mostly in the right lower extremity secondary to previous stroke and lumbar disc disease. Continue eliquis 5 mg twice daily. 3. Severe lactic acidosis of unclear etiology. Patient is status post IV fluid. 4. Right lower quadrant abdominal pain. CAT scan of the abdomen and pelvis with contrast ordered. 5. History of pulmonary embolism. Continue Eliquis 5 mg twice daily. 6. Diabetes mellitus type 2. Continue Trijardy, NovoLog scale before meals and at bedtime. 7. Non-Hodgkin's lymphoma [place] [address] Monaco and follows with Dr. Aranda, in remission. 8. T12-L1 severe spondylosis, severe canal stenosis and impending conus syndrome s/p revision T12-L2 fusion and decompression with chronic back pain. Continue gabapentin 600 mg 3 times daily. 9. Hypertension. Continue atenolol 50 mg twice a day. 10. Hypothyroidism. Continue levothyroxine 12.5 g daily. 11. 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 Continue eliquis 5 mg twice daily. 12. Recurrent depression. Continue Cymbalta 90 mg daily. 13. Chronic gout. Continue allopurinol 100 mg daily. 14. Hyperlipidemia. Continue atorvastatin 40 mg at bedtime. 15. Restless leg syndrome. Continue Requip. 16. GERD and GI prophylaxis. Protonix CODE STATUS: Full code. Admit patient to the inpatient service for more than 2 night stay. DISCHARGE PLAN TBD Impression and plan of care have been directed as dictated by the signing physician. Chioma Al nurse practitioner acting as scribe for signing physician Objective - Vital Signs Vital signs: Vital Signs Temp 97.8 F 03/01/21 07:50 Pulse 94 03/01/21 07:50 Resp 20 03/01/21 08:00 BP 148/74 03/01/21 07:50 Pulse Ox 96 03/01/21 07:50 Intake & Output 02/28/21 03/01/21 03/01/21 18:59 06:59 18:59 Intake Total 712 180 Output Total 1400 Balance 712 -1400 180 Weight 60.781 kg Intake: Oral 712 180 Output: Urine 1400 Other: Voiding Method External Catheter External Catheter # Voids 2 1 # Bowel Movements 1 - Labs CBC & Chem 7: 02/27/21 22:55 02/27/21 22:55 Labs: Abnormal Lab Results - Last 24 Hours (Table) 02/28/21 02/28/21 02/28/21 Range/Units 12:00 17:32 19:49 POC Glucose (mg/dL) 127 H 246 H 280 H (75-99) mg/dL 03/01/21 Range/Units 07:48 POC Glucose (mg/dL) 255 H (75-99) mg/dL Microbiology - Last 24 Hours (Table) 02/28/21 01:50 Blood Culture - Preliminary Blood No Growth after 24 hours 02/28/21 01:35 Blood Culture - Preliminary Blood No Growth after 24 hours 02/27/21 22:55 Urine Culture - Preliminary Urine,Voided
[2021-03-01 12:01] LABS: Glucose,Whole Blood 198 mg/dL (75-99)
--- NOTE | 2021-03-01 14:50 | P.PN ---
Subjective Progress Note Date: 03/01/21 Pt s/e. two daughters and son at bedside. Pt states she is doing much better today and that her RLE feels better. She denies any new symptoms. No genital numbness/tingling. No perineal symptoms. No New bowel or bladder issues. She states her pain is much better as well. Denies any f/c/sob/cp at this time. Objective - Vital Signs Vital signs: Vital Signs Temp 97.8 F 03/01/21 07:50 Pulse 94 03/01/21 07:50 Resp 20 03/01/21 08:00 BP 148/74 03/01/21 07:50 Pulse Ox 96 03/01/21 07:50 Intake & Output 02/28/21 03/01/21 03/01/21 18:59 06:59 18:59 Intake Total 712 1220 Output Total 1400 1200 Balance 712 -1400 20 Weight 60.781 kg Intake: IV 1040 Sodium Chloride 0.9% 1, 1040 000 ml @ 130 mls/hr IV . [id number] [facility] Rx#:[id number] Oral 712 180 Output: Urine 1400 1200 Other: Voiding Method External Catheter External Catheter # Voids 2 1 # Bowel Movements 1 - Exam Exam today performed is stable and changes noted. PHYSICAL EXAMINATION: Vitals: Stable at this time General: Awake, alert, appropriate for age, in no acute distress. HEENT: No unusual neck masses around region of lateral neck triangle, thyroid, supraclavicular groove. Extremities: Skin warm and dry without no acute lesions, coloration, temperature, skin intact, no tenderness or erythema. Integument: Hairy patches: Absent Dorsal skin dimples: Absent Cafe au lait spots: Absent Surgical incisions: Incisions clean dry and intact Palpation: Please see Pain drawing on Intake sheet for further detail. (Tenderness = T, Nontender = NT, Swelling = S, Ecchymosis = E) Findings on Midline and paraspinal palpation and percussion: Cervical: NT Thoracic: NT Lumbar: NT Sacral: NT Special findings: No tenderness to palpation Abdomen is nontender nondistended POSTURAL and MUSCULO-SKELETAL EVALUATION: Neck ROM: [Unrestricted in six directions] Lumbar ROM: [Unrestricted in six directions] Shoulder ROM: Symmetric in abduction, ER/IR Hip ROM: Symmetric in abduction, adduction, ER/IR Knee ROM: Symmetric and intact in Flexion / extension Hands: Normal appearing structure L and R Feet: Normal appearing structure L and R She is having some June posturing of her right foot VASCULAR STATUS : Wrist Pulses: [2/4 bilateral radial and ulnar] Pedal Pulses: [2/4 bilateral DP and PT] Color: [Normal] Edema: [None] NEUROLOGIC EXAMINATION: Mental Status: Awake and alert, fully oriented, with normal attention, concentration and memory, and fluent, appropriate speech. Cranial Nerves: I: Olfactory not tested. II: Visual acuity normal, no visual field deficit noted with confrontation. III,IV: Normal pupillary reflexes & intact extraocular movements without nystagmus. V,: Intact symmetrical facial sensation. VII: Intact symmetrical facial motor movement VIII: Hearing intact. IX,X: Intact gag, swallow, & normal voice. XI: Sternocleidomastoid, trapezius function intact. XII: Tongue midline with normal movements. Special Tests: L'hermitte's Sign: Absent Spurling'Sign: Absent Bilateral Cubital percussion test: Absent Bilateral Dolly-Tinel sign - Carpal region: Absent Bilateral Straight Leg Raising: Absent Bilateral Motor Exam (0-5/5, N/T) STRENGTH UPPER EXTREMITY Shoulder Abd (Not part of LEONA Motor score): RIGHT [4] LEFT [5] Elbow Flexors: RIGHT 4 LEFT [5] Elbow Extensor: RIGHT 4 LEFT [5] Wrrist Dorsiflexors: RIGHT 4 LEFT [5] Finger Abductor: RIGHT 4 LEFT [5] Assistant Professor Sculpture: RIGHT 4 LEFT [5] LOWER EXTREMITY Hip Flexor (Not part of LEONA Motor Score): RIGHT 4- LEFT [5] Knee Flexor: RIGHT 4- LEFT [5] Knee Extensor: RIGHT 4+ LEFT [5] Ankle Dorsiflexion: RIGHT 4 LEFT [5] Ankle Plantarflexion: RIGHT 5 LEFT [5] EHL: RIGHT 4 LEFT [5] FHL: RIGHT [5] LEFT [5] She is having some June posturing of her right foot she complains of pain in her right leg with movement. When distracted however she is able to flex her hip and extend her knee with good strength and she is able to hold against gravity by herself. She is able to dorsiflex and plantar flex on the right however it seems difficult for her to control. EHL and FHL REFLEXES Biecp: RIGHT [2] LEFT [2] Tricep: RIGHT [2] LEFT [2] Brachioradialis: RIGHT [2] LEFT [2] Patellar: RIGHT [2] LEFT [2] Achilles: RIGHT [2] LEFT [2] No hyperreflexia at this time Pathological Reflexes Franklin's: RIGHT [Absent] LEFT [Absent] Babinski: RIGHT negative however patient does hold great toe and upwards fashion this may be due to retraction it is difficult to determine LEFT [Absent] Clonus: RIGHT [None] LEFT [None] SENSORY Joint Position: [Intact bilaterally] Vibration [Intact bilaterally] Pain and LT sense [Intact C5-T1 and L2-S1] Dermatomal deficit [None] Gait and Functional Evaluation: Ambulatory aids: Walker Romberg's test: Intact bilaterally. Hand and finger dexterity intact bilaterally[]. Disdiadochokinesis examination negative[] bilaterally. - Labs CBC & Chem 7: 02/27/21 22:55 02/27/21 22:55 Labs: Abnormal Lab Results - Last 24 Hours (Table) 02/28/21 02/28/21 03/01/21 Range/Units 17:32 19:49 07:48 POC Glucose (mg/dL) 246 H 280 H 255 H (75-99) mg/dL 03/01/21 Range/Units 12:00 POC Glucose (mg/dL) 198 H (75-99) mg/dL Microbiology - Last 24 Hours (Table) 02/28/21 01:50 Blood Culture - Preliminary Blood No Growth after 24 hours 02/28/21 01:35 Blood Culture - Preliminary Blood No Growth after 24 hours Assessment and Plan Assessment: 81-year-old female with complex medical history history of TIA stroke upper extremity DVT lower extremity weakness and pain with radiculopathy history of surgical intervention low back history of anterior cervical discectomy and fusion with continued cervical stenosis. Multiple comorbidities On anticoagulation Plan: -Appreciate storage consultant and team management. -Activity: Ambulate QID, OOB all meals, up and about, limit lifting bending twisting to less than 5 lbs. Use walker or cane if needed for stability. -Daily PT/OT, increase ambulation strength and balance. -Pain control: Increase gabapentin to 600 3 times a day continue with Decadron IV -Meds: [reviewed] -GI ppx: senna, Miralax -DVT PPX: Continue with anticoagulation protocol -Hygiene: Shower daily Maintain dressing clean and dry. Meticulous cleaning after BMs away from incision site -Encourage IS 10x/hr -Dispo: [Pending] I discussed at length with the patient her daughter who is at bedside the extreme risks that she poses for any surgical intervention. Discussed with her that is difficult to determine at this time where her pain is coming from why she is having is posturing or cramping. She has multiple different areas in her spine where she has issues. She previously had a cervical fusion anteriorly and she has C2 3 stenosis as well as C7-T1 stenosis however she is not having myelomalacia and these areas. She has had upper extremity and lower extremity issues for a while. She said recent falls as well. She also has a history of a T12-L1 bony lesion that she had fused and decompressed previously. She does have decompression from T12 to L2 which should provide room posteriorly despite the computed tomography scan showing increased bone within this area. I do not know that this is causing her symptoms at this time. She is presenting more of a cord type symptom etiology or brain symptom etiology with higher up functions being disrupted. The numbness and tingling on her face concerns me again for continued strokelike symptoms and she is being neural monitor at this time. We will ask neurology to see her in consult. I discussed with them that she is extremely high risk for any surgical intervention secondary to her multiple comorbidities medications anticoagulation and that if we can avoid it we should. She agreed to just wants her symptoms to be treated and so we will treat her symptoms with increased gabapentin steroids and further discussion. She is comfortable with this plan of care Neuro eval pending.
[2021-03-01 17:20] LABS: Glucose,Whole Blood 233 mg/dL (75-99)
--- NOTE | 2021-03-01 19:39 | P.CNNES ---
History of Present Illness Consult date: 03/01/21 Reason for Consult: new-onset facial numbness History of Present Illness: The patient is a 81-year-old female who is seen in neurologic consultation on March 01, 2021, via teleneurology. The patient has multiple medical problems. She has history of significant left cerebral infarct resulting in chronic right lower extremity weakness, stiffness and pain. Patient reports having had 6 strokes in total. Her most recent stroke was about 2 weeks ago. In describing those symptoms, the patient reports feeling weak, shaky and unable to stand. She felt a tingly sensation with disorientation and difficulty speaking. On this current admission, the patient comes in because of severe right lower extremity pain, involving her hip and groin. The patient was subsequently started on steroids. Yesterday, patient reports development of bilateral jaw tingling. The right sided tingling resolved and the tingling on the left continued, for 40 12:55 hour. He shouldn't denied difficulty with speech. She does report that she had a headache earlier in the day, prior to the onset of her symptoms. Family was present at the time of these symptoms. Patient's daughter reports that she did not notice any asymmetry of the patient's face. The patient herself denies associated visual symptoms however does report she has been having some difficulty with her vision for the past 2 weeks. Patient reports that all of her symptoms resolved. Patient denies numbness tingling and weakness in her extremities. The patient is taking Eliquis 5 mg twice daily, because of a history of DVT. Past Medical History Past Medical History: Cancer, CVA/TIA, Diabetes Mellitus, Deep Vein Thrombosis (DVT), GERD/Reflux, GI Bleed, Hyperlipidemia, Hypertension, Osteoarthritis (OA), Pneumonia, Pulmonary Embolus (PE), Skin Disorder, Syncope, Thyroid Disorder, Vascular Disorder Additional Past Medical History / Comment(s): Brachial/cephalic artery PTBA/stent with post procedure CVAs with R sided weakness/R leg worse, TIAs, FALLS, DVT L leg with L PE, NIDDM type II, neuropathy R leg, R foot drop, non hodgkins lymphoma with chemo/radiation of throat d/t cancerous mass that was removed, stomach ulcer, occasional dysphagia, hiatal hernia, constipation/diarrhea, lower GI bleed, chronic lumbar back pain/severe spondylosis/stenosis T12/L1, gout, infrequent migraines, hammer toes, RLS, bruises easily, hypothyroid. History of Any Multi-Drug Resistant Organisms: None Reported Past Surgical History: Appendectomy, Back Surgery, Bladder Surgery, Breast S urgery, Cholecystectomy, Hysterectomy, Joint Replacement, Orthopedic Surgery, Tonsillectomy Additional Past Surgical History / Comment(s): 12/2020 PTBA with stent R brachial/cephalic artery, cervical fusion, lumbar laminectomy, R hip repair, bilateral thumbs/rods, R 3rd toe nathaniel, bilateral total knee arthroplasties, pain clinic procedures, R femur biopsy, D&Cs, bladder suspension, EGD, colonoscopies, L breast biopsy/axilary bx, bilateral cataract removals. Past Anesthesia/Blood Transfusion Reactions: No Reported Reaction Additional Past Anesthesia/Blood Transfusion Reaction / Comment(s): CLAUSTROPHOBIA Smoking Status: Never smoker - Past Family History Father Family Medical History: Deep Vein Thrombosis (DVT), Pulmonary Embolus Additional Family Medical History / Comment(s): Father at age 32 from pulmonary embolism. Mother Family Medical History: Cancer Additional Family Medical History / Comment(s): breast Brother(s) Family Medical History: Cancer, CVA/TIA, Deep Vein Thrombosis (DVT), Myocardial Infarction ([place]), Pulmonary Embolus, Vascular Disorder Additional Family Medical History / Comment(s): 2 brothers that have passed one from myocardial infarction and one from pulmonary embolism. 2 brothers are alive and one has lung cancer, one brother is alive with a brain aneurysm and CVA. Medications and Allergies Home Medications Medication Instructions Recorded Confirmed Type Calcium Carb-Vit D 500Mg-5Mcg 1 tab PO DAILY 01/05/14 02/28/21 History [Oscal 500+D 5 Mcg (200 Iu)] allopurinoL [Zyloprim] 100 mg PO DAILY 01/05/14 02/28/21 History Levothyroxine Sodium [Synthroid] 12.5 mcg PO DAILY 03/16/14 02/28/21 History Gabapentin [Neurontin] 300 mg PO HS 07/03/20 02/28/21 History Ipratropium [place] 0.06%Nasal 2 spr EA NOSTRIL BID 07/03/20 02/28/21 History [Atrovent Nasal 0.06%] HYDROcodone/APAP 10-325MG [[place] 1 tab PO BID PRN 07/15/20 02/28/21 History 10-325] Dexlansoprazole [Dexilant] 60 mg PO DAILY PRN 08/07/20 02/28/21 History Empaglifloz/Linaglip/Metformin 1 tab PO DAILY 09/20/20 02/28/21 History [Trijardy Xr 25-5-1,000 mg Tab] Apixaban [Eliquis] 5 mg PO BID 10/06/20 02/28/21 History Temazepam [Restoril] 15 mg PO HS 10/06/20 02/28/21 History DULoxetine HCL [Cymbalta] 60 mg PO DAILY 12/17/20 02/28/21 History Estradiol Cream [Estrace Cream 1 gm VAGINAL SUTH 12/17/20 02/28/21 History 0.01%] Atorvastatin [Lipitor] 40 mg PO HS 12/27/20 02/28/21 History rOPINIRole HCL [Requip] 4 mg PO HS 12/27/20 02/28/21 History Loperamide [Imodium] 2 mg PO TID PRN 12/30/20 02/28/21 History Clopidogrel [Plavix] 75 mg PO DAILY #30 tab 01/06/21 02/28/21 Rx Atenolol [Tenormin] 50 mg PO BID 02/13/21 02/28/21 History Collagenase [Santyl] 1 applic TOPICAL DAILY 02/13/21 02/28/21 History Psyllium Husk (with Sugar) 6 gm PO BID 02/13/21 02/28/21 History [Metamucil Powder] DULoxetine HCL [Cymbalta] 30 mg PO DAILY 02/28/21 02/28/21 History Doxycycline Hyclate 100 mg PO DAILY 02/28/21 02/28/21 History dexAMETHasone [Dexamethasone] See Taper PO DIRECTED 02/28/21 02/28/21 History Allergies Allergy/AdvReac Type Severity Reaction Status Date / Time adhesive Allergy red skin, Verified 02/28/21 06:55 blisters cefaclor [From Ceclor] Allergy Rash/Hives Verified 02/28/21 06:55 ciprofloxacin [From Cipro] Allergy Rash/Hives Verified 02/28/21 06:55 ciprofloxacin HCl Allergy Rash/Hives Verified 02/28/21 06:55 [From Cipro] hydromorphone HCl Allergy Anaphylaxis Verified 02/28/21 06:55 [From Dilaudid] Penicillins Allergy Rash/Hives Verified 02/28/21 06:55 clindamycin AdvReac Nausea & Verified 02/28/21 06:55 Vomiting sulfamethoxazole AdvReac Abdominal Verified 02/28/21 06:55 [From Bactrim] Pain trimethoprim [From Bactrim] AdvReac Abdominal Verified 02/28/21 06:55 Pain Physical Examination - Vital Signs Vital Signs: Vital Signs Temp Pulse Resp BP Pulse Ox 03/01/21 08:00 20 03/01/21 07:50 97.8 F 94 20 148/74 96 03/01/21 02:20 93 17 03/01/21 01:48 97.6 F 93 17 122/76 93 L 02/28/21 20:49 104 H 17 02/28/21 19:06 98.1 F 104 H 17 110/71 96 02/28/21 14:46 98.0 F 88 19 167/84 99 Intake and Output 02/28/21 03/01/21 03/01/21 22:59 06:59 14:59 Intake Total 180 Output Total 1400 Balance -1400 180 Intake: Oral 180 Output: Urine 1400 Other: Voiding Method External Catheter External Catheter External Catheter # Voids 1 # Bowel Movements 1 Gen.: The patient is reclining in the bed. She is well-nourished, well- developed and in no acute distress. HEENT: Head is atraumatic, normocephalic. Fundus not visualized. There is no scleral icterus. Mucous membranes are moist. Neck: Supple without carotid bruits Heart: Regular rate and rhythm with murmur Extremities: There is noted to be internal rotation of the right foot/ankle Neurological examination Mental status: The patient is awake, alert and oriented 3. Her speech is clear. There is no dysarthria or aphasia. Cranial nerves: Pupils are equal at 3 mm and reactive. Visual trotter are full to confrontation. Extraocular movements are intact. There is no nystagmus. Facial sensation is intact. There is no facial asymmetry. Hearing is grossly intact. Uvula and palate are midline. Shoulder shrug is symmetric. Tongue protrudes midline. Motor: Bilateral upper extremity strength is 5/5. Left lower extremity strength 5/5. Right hip flexor 1-to/5. Right ankle plantar flexor 3+/5. Right ankle dorsiflexor 3/5. There is increased tone in the right ankle. Sensation: Intact to light touch throughout. There is no extinction with double simultaneous stimulation. Coordination: Finger to nose testing is intact bilaterally. There is a left- sided intention tremor. Deep tendon reflexes: 2+/4+ in the upper extremities. Lower extremity reflexes are absent. Results - Laboratory Findings CBC and BMP: 02/27/21 22:55 02/27/21 22:55 Abnormal Lab Findings: Abnormal Labs 02/27/21 02/27/21 02/27/21 22:55 22:55 22:55 WBC 14.8 H RDW 16.8 H Neutrophils # 12.2 H Monocytes # 1.3 H APTT 21.8 L Carbon Dioxide BUN Glucose POC Glucose (mg/dL) Plasma Lactic Acid Luis Urine Glucose (UA) 4+ H Urine Ketones 1+ H Urine Nitrite Positive H Ur Leukocyte Esterase Moderate H Urine WBC 32 H Urine Bacteria Rare H Urine Yeast (Budding) Occasional H 02/27/21 02/27/21 02/28/21 22:55 22:55 02:47 WBC RDW Neutrophils # Monocytes # APTT Carbon Dioxide 21 L BUN 24 H Glucose 203 H POC Glucose (mg/dL) Plasma Lactic Acid Luis 5.3 H* 2.9 H* Urine Glucose (UA) Urine Ketones Urine Nitrite Ur Leukocyte Esterase Urine WBC Urine Bacteria Urine Yeast (Budding) 02/28/21 02/28/21 02/28/21 07:43 12:00 17:32 WBC RDW Neutrophils # Monocytes # APTT Carbon Dioxide BUN Glucose POC Glucose (mg/dL) 131 H 127 H 246 H Plasma Lactic Acid Luis Urine Glucose (UA) Urine Ketones Urine Nitrite Ur Leukocyte Esterase Urine WBC Urine Bacteria Urine Yeast (Budding) 02/28/21 03/01/21 19:49 07:48 WBC RDW Neutrophils # Monocytes # APTT Carbon Dioxide BUN Glucose POC Glucose (mg/dL) 280 H 255 H Plasma Lactic Acid Luis Urine Glucose (UA) Urine Ketones Urine Nitrite Ur Leukocyte Esterase Urine WBC Urine Bacteria Urine Yeast (Budding) Assessment and Plan Assessment: 1. Patient is a 81-year-old female with a history of multiple strokes and residual right sided weakness, primarily lower extremity. Recent symptoms included bilateral facial tingling-unlikely to be TIA or stroke, also in the setting of anticoagulation and Plavix-stroke is unlikely. Possible medication effect versus metabolic etiology versus anxiety 2. History of multiple cerebral infarcts 3. History of chronic right lower extremity weakness and pain 4. History of hypertension 5. History of diabetes mellitus 6. History of DVT 7. History of factor V Leiden Plan: 1. Continue current treatment plan 2. Will follow patient tomorrow. 3. CT scan and CT angiogram are not necessary at this point-Will consider these tests if symptoms return 4. Agree patient would benefit from subacute rehabilitation placement 5. Continue anticoagulation and reduction of stroke risk factors Time with Patient: Greater than 30 (spent 40 minutes with patient via teleneurology)
[2021-03-01 19:57] LABS: Glucose,Whole Blood 304 mg/dL (75-99)
[2021-03-01] MEDS: ATORVASTATIN 40 MG TAB PO SCH (20:10)
[2021-03-01] MEDS: rOPINIRole HCL 4 MG TABLET PO SCH (20:12)
[2021-03-01] MEDS: TEMAZEPAM 15 MG CAP PO SCH (20:12)
[2021-03-02] MEDS: DEXAMETHASONE SOD PHOSPHATE 4 MG/ML 1 ML VIAL IV SCH ×4 (00:55→17:10)
[2021-03-02] MEDS: LEVOTHYROXINE 25 MCG TAB PO SCH (05:36)
[2021-03-02] MEDS: SODIUM CHLORIDE 0.9% 1,000 ML IV SCH ×2 (05:37→16:22)
[2021-03-02 06:59] LABS: Glucose,Whole Blood 171 mg/dL (75-99)
[2021-03-02] MEDS: INSULIN ASPART (NovoLOG) 100 UNIT/ML VIAL SQ SCH ×4 (07:16→20:56)
[2021-03-02] MEDS: GABAPENTIN 300 MG CAP PO SCH ×3 (07:16→20:57)
[2021-03-02] MEDS: DULoxetine HCL 30 MG CAPSULE.DR PO SCH (07:17)
[2021-03-02] MEDS: BACLOFEN 10 MG TAB PO PRN ×2 (07:17→16:31)
[2021-03-02] MEDS: DULoxetine HCL 60 MG CAPSULE.DR PO SCH (07:17)
[2021-03-02] MEDS: DOXYCYCLINE 100 MG CAP PO SCH (07:17)
[2021-03-02] MEDS: HYDROcodone/APAP 10-325MG 1 EACH TAB PO PRN ×2 (07:18→16:31)
[2021-03-02] MEDS: APIXABAN 5 MG TAB PO SCH ×2 (07:18→20:56)
[2021-03-02] MEDS: CLOPIDOGREL 75 MG TAB PO SCH (07:18)
[2021-03-02] MEDS: allopurinoL 100 MG TAB PO SCH (07:19)
[2021-03-02] MEDS: PSYLLIUM HUSK 100% 6 GM PACKET PO SCH ×2 (07:22→20:56)
[2021-03-02] MEDS: IPRATROPIUM BROMIDE 0.06% NASAL SPRAY (15 ML) EA NOSTRIL SCH ×2 (07:23→23:08)
[2021-03-02 09:39] LABS: HCT 32.2 % (37.2-46.3); HGB 11.6 g/dL (12.0-15.0); MCH 36.4 pg (27.0-32.0); MCV 100.9 fL (80.0-97.0); Mean Platelet Volume 10.5 fL (9.5-12.2); Platelet Count 143 X 10*3/uL (140-440); RBC 3.19 X 10*6/uL (4.10-5.20); WBC 9.83 X 10*3/uL (4.50-10.00)
[2021-03-02 10:02] LABS: African American GFR (CKD) 100.5 (60.0-200.0); Albumin 3.7 g/dL (3.80-4.90); Albumin/Globulin Ratio 1.85 (1.60-3.17); Anion Gap 5.8 mmol/L (4.00-12.00); Calcium 8.8 mg/dL (8.7-10.3); Carbon Dioxide 21.2 mmol/L (21.6-31.8); Non-African American GFR(CKD) 86.7 (60.0-200.0); Total Bilirubin 0.5 mg/dL (0.2-1.2); Total Protein 5.7 g/dL (6.2-8.2)
[2021-03-02 10:34] LABS: Acanthocytes 2+; Basophils # (M) 0 X 10*3/uL (0.00-0.10); Eosinophils # (M) 0 X 10*3/uL (0.04-0.35); Lymphocytes # (M) 0.39 X 10*3/uL (0.90-5.00); Metamyelocytes % 3 % (0-0); Monocytes # (M) 0.59 X 10*3/uL (0.20-1.00); Myelocytes % 5 % (0-0); Neutrophils # (M) 8.06 X 10*3/uL (2.00-8.90); Neutrophils % (M) 82 %
[2021-03-02 11:51] LABS: Glucose,Whole Blood 196 mg/dL (75-99)
--- NOTE | 2021-03-02 12:00 | P.PN ---
Subjective Progress Note Date: 03/02/21 Pt s/e this AM. She is doing fairly well. No issues overnight. She states the pain in her leg is better. denies any other issues as of today. Objective - Vital Signs Vital signs: Vital Signs Temp 98.1 F 03/02/21 07:00 Pulse 89 03/02/21 07:00 Resp 18 03/02/21 08:00 BP 118/92 03/02/21 07:00 Pulse Ox 95 03/02/21 07:00 Intake & Output 03/01/21 03/02/21 03/02/21 18:59 06:59 18:59 Intake Total 1220 300 Output Total 1999 1300 700 Balance -780 -1300 -400 Intake: IV 1040 Sodium Chloride 0.9% 1, 1040 000 ml @ 130 mls/hr IV . [id number] [facility] Rx#:[id number] Oral 180 300 Output: Urine 1999 1300 700 Other: Voiding Method External Catheter External Catheter External Catheter # Voids 1 - Exam Exam today performed is stable and changes noted. PHYSICAL EXAMINATION: Vitals: Stable at this time General: Awake, alert, appropriate for age, in no acute distress. HEENT: No unusual neck masses around region of lateral neck triangle, thyroid, supraclavicular groove. Extremities: Skin warm and dry without no acute lesions, coloration, temperature, skin intact, no tenderness or erythema. Integument: Hairy patches: Absent Dorsal skin dimples: Absent Cafe au lait spots: Absent Surgical incisions: Incisions clean dry and intact Palpation: Please see Pain drawing on Intake sheet for further detail. (Tenderness = T, Nontender = NT, Swelling = S, Ecchymosis = E) Findings on Midline and paraspinal palpation and percussion: Cervical: NT Thoracic: NT Lumbar: NT Sacral: NT Special findings: No tenderness to palpation Abdomen is nontender nondistended POSTURAL and MUSCULO-SKELETAL EVALUATION: Neck ROM: [Unrestricted in six directions] Lumbar ROM: [Unrestricted in six directions] Shoulder ROM: Symmetric in abduction, ER/IR Hip ROM: Symmetric in abduction, adduction, ER/IR Knee ROM: Symmetric and intact in Flexion / extension Hands: Normal appearing structure L and R Feet: Normal appearing structure L and R She is having some June posturing of her right foot VASCULAR STATUS : Wrist Pulses: [2/4 bilateral radial and ulnar] Pedal Pulses: [2/4 bilateral DP and PT] Color: [Normal] Edema: [None] NEUROLOGIC EXAMINATION: Mental Status: Awake and alert, fully oriented, with normal attention, concentration and memory, and fluent, appropriate speech. Cranial Nerves: I: Olfactory not tested. II: Visual acuity normal, no visual field deficit noted with confrontation. III,IV: Normal pupillary reflexes & intact extraocular movements without nystagmus. V,: Intact symmetrical facial sensation. VII: Intact symmetrical facial motor movement VIII: Hearing intact. IX,X: Intact gag, swallow, & normal voice. XI: Sternocleidomastoid, trapezius function intact. XII: Tongue midline with normal movements. Special Tests: L'hermitte's Sign: Absent Spurling'Sign: Absent Bilateral Cubital percussion test: Absent Bilateral Dolly-Tinel sign - Carpal region: Absent Bilateral Straight Leg Raising: Absent Bilateral Motor Exam (0-5/5, N/T) STRENGTH UPPER EXTREMITY Shoulder Abd (Not part of LEONA Motor score): RIGHT [4] LEFT [5] Elbow Flexors: RIGHT 4 LEFT [5] Elbow Extensor: RIGHT 4 LEFT [5] Wrrist Dorsiflexors: RIGHT 4 LEFT [5] Finger Abductor: RIGHT 4 LEFT [5] Retail Loss Prevention Investigator: RIGHT 4 LEFT [5] LOWER EXTREMITY Hip Flexor (Not part of LEONA Motor Score): RIGHT 4- LEFT [5] Knee Flexor: RIGHT 4- LEFT [5] Knee Extensor: RIGHT 4+ LEFT [5] Ankle Dorsiflexion: RIGHT 4 LEFT [5] Ankle Plantarflexion: RIGHT 5 LEFT [5] EHL: RIGHT 4 LEFT [5] FHL: RIGHT [5] LEFT [5] She is having some Chris posturing of her right foot she complains of pain in her right leg with movement. When distracted however she is able to flex her hip and extend her knee with good strength and she is able to hold against gravity by herself. She is able to dorsiflex and plantar flex on the right however it seems difficult for her to control. EHL and FHL REFLEXES Biecp: RIGHT [2] LEFT [2] Tricep: RIGHT [2] LEFT [2] Brachioradialis: RIGHT [2] LEFT [2] Patellar: RIGHT [2] LEFT [2] Achilles: RIGHT [2] LEFT [2] No hyperreflexia at this time Pathological Reflexes Franklin's: RIGHT [Absent] LEFT [Absent] Babinski: RIGHT negative however patient does hold great toe and upwards fashion this may be due to retraction it is difficult to determine LEFT [Absent] Clonus: RIGHT [None] LEFT [None] SENSORY Joint Position: [Intact bilaterally] Vibration [Intact bilaterally] Pain and LT sense [Intact C5-T1 and L2-S1] Dermatomal deficit [None] Gait and Functional Evaluation: Ambulatory aids: Walker Romberg's test: Intact bilaterally. Hand and finger dexterity intact bilaterally[]. Disdiadochokinesis examination negative[] bilaterally. - Labs CBC & Chem 7: 03/02/21 04:17 03/02/21 04:17 Labs: Abnormal Lab Results - Last 24 Hours (Table) 03/01/21 03/01/21 03/01/21 Range/Units 12:00 17:19 19:56 RBC (4.10-5.20) X 10*6/uL Hgb (12.0-15.0) g/dL Hct (37.2-46.3) % MCV (80.0-97.0) fL MCH (27.0-32.0) pg Metamyelocytes % (0-0) % Myelocytes % (0-0) % Lymphocytes # (Manual) (0.90-5.00) X 10*3/uL Eosinophils # (Manual) (0.04-0.35) X 10*3/uL Chloride (96-109) mmol/L Carbon Dioxide (21.6-31.8) mmol/L BUN/Creatinine Ratio (12.00-20.00) Ratio Glucose (70-110) mg/dL POC Glucose (mg/dL) 198 H 233 H 304 H (75-99) mg/dL Total Protein (6.2-8.2) g/dL Albumin (3.80-4.90) g/dL 03/02/21 03/02/21 03/02/21 Range/Units 04:17 04:17 06:57 RBC 3.19 L (4.10-5.20) X 10*6/uL Hgb 11.6 L (12.0-15.0) g/dL Hct 32.2 L (37.2-46.3) % MCV 100.9 H (80.0-97.0) fL MCH 36.4 H (27.0-32.0) pg Metamyelocytes % 3 H (0-0) % Myelocytes % 5 H (0-0) % Lymphocytes # (Manual) 0.39 L (0.90-5.00) X 10*3/uL Eosinophils # (Manual) 0 L (0.04-0.35) X 10*3/uL Chloride 112 H (96-109) mmol/L Carbon Dioxide 21.2 L (21.6-31.8) mmol/L BUN/Creatinine Ratio 30.00 H (12.00-20.00) Ratio Glucose 195 H (70-110) mg/dL POC Glucose (mg/dL) 171 H (75-99) mg/dL Total Protein 5.7 L (6.2-8.2) g/dL Albumin 3.70 L (3.80-4.90) g/dL 03/02/21 Range/Units 11:49 RBC (4.10-5.20) X 10*6/uL Hgb (12.0-15.0) g/dL Hct (37.2-46.3) % MCV (80.0-97.0) fL MCH (27.0-32.0) pg Metamyelocytes % (0-0) % Myelocytes % (0-0) % Lymphocytes # (Manual) (0.90-5.00) X 10*3/uL Eosinophils # (Manual) (0.04-0.35) X 10*3/uL Chloride (96-109) mmol/L Carbon Dioxide (21.6-31.8) mmol/L BUN/Creatinine Ratio (12.00-20.00) Ratio Glucose (70-110) mg/dL POC Glucose (mg/dL) 196 H (75-99) mg/dL Total Protein (6.2-8.2) g/dL Albumin (3.80-4.90) g/dL Microbiology - Last 24 Hours (Table) 02/27/21 22:55 Urine Culture - Final Urine,Voided Klebsiella pneumoniae 02/28/21 01:50 Blood Culture - Preliminary Blood No Growth after 48 hours 02/28/21 01:35 Blood Culture - Preliminary Blood No Growth after 48 hours Assessment and Plan Assessment: 81-year-old female with complex medical history history of TIA stroke upper extremity DVT lower extremity weakness and pain with radiculopathy history of surgical intervention low back history of anterior cervical discectomy and fu regina with continued cervical stenosis. Multiple comorbidities On anticoagulation Plan: -Appreciate sr technical sales consultant and team management. -Activity: Ambulate QID, OOB all meals, up and about, limit lifting bending twisting to less than 5 lbs. Use walker or cane if needed for stability. -Daily PT/OT, increase ambulation strength and balance. -Pain control: Increase gabapentin to 600 3 times a day continue with Decadron IV -Meds: [reviewed] -GI ppx: senna, Miralax -DVT PPX: Continue with anticoagulation protocol -Hygiene: Shower daily Maintain dressing clean and dry. Meticulous cleaning after BMs away from incision site -Encourage IS 10x/hr -Dispo: [Pending] I discussed at length with the patient her daughter who is at bedside the extreme risks that she poses for any surgical intervention. Discussed with her that is difficult to determine at this time where her pain is coming from why she is having is posturing or cramping. She has multiple different areas in her spine where she has issues. She previously had a cervical fusion anteriorly and she has C2 3 stenosis as well as C7-T1 stenosis however she is not having myelomalacia and these areas. She has had upper extremity and lower extremity issues for a while. She said recent falls as well. She also has a history of a T12-L1 bony lesion that she had fused and decompressed previously. She does have decompression from T12 to L2 which should provide room posteriorly despite the computed tomography scan showing increased bone within this area. I do not know that this is causing her symptoms at this time. She is presenting more of a cord type symptom etiology or brain symptom etiology with higher up functions being disrupted. The numbness and tingling on her face concerns me again for continued strokelike symptoms and she is being neural monitor at this time. We will ask neurology to see her in consult. I discussed with them that she is extremely high risk for any surgical intervention secondary to her multiple comorbidities medications anticoagulation and that if we can avoid it we should. She agreed to just wants her symptoms to be treated and so we will treat her symptoms with increased gabapentin steroids and further discussion. She is comfortable with this plan of care Neuro states no need for further imaging or testing at this time. Will monitor clinically. No orthopedic surgical intervention at this time due to continued anticoagulation as well as unacceptable risk for surgery. Pt understands. She will go to rehab in the next few days and follow up in clinic.
--- NOTE | 2021-03-02 12:04 | P.PN ---
Subjective Progress Note Date: 03/02/21 HISTORY OF PRESENT ILLNESS This is a 81-year-old female one of Dr. Rocha patient with past medical history of Factor V Leiden deficiency, type 2 diabetes, non-Hodgkin's lymphoma [place] [address] Monaco and follows with Dr. Aranda status post chemotherapy and radiation therapy, hypertension, hyperlipidemia, hypertension, hypothyroidism, restless leg syndrome, recurrent depression, and osteoarthritis who has been treated for lower back pain post multiple lower back surgery and epidural injection with pain management at [facility], previous admission for acute GI bleed and acute blood loss anemia status post EGD and colonoscopy which revealed antral gastritis, area of ulceration, nonbleeding, in the distal transverse colon, history of pulmonary embolism and left lower leg DVT diagnosed 03/08/2020 on eliquis, history of multiple strokes with bilateral hemisphere including 1 in 01/01/2021 after she had procedure for right brachiocephalic stenosis status post percutaneous transluminal angioplasty and stent placement developed stroke that affected the right side. Patient was hospitalized in January for CVA with worsening right-sided weakness and was also seen by Dr. Edward's in for right lower extremity weakness. Patient is complaining of significant pain in the right hip and groin area. She has pain from the thigh all the way to the foot with right lower quadrant tenderness. She states she has back pain on and off and has been on oral steroids and recently treated for urinary tract infection with 1-2 more days of antibiotics to complete. She complains of significant stiffness of the right leg and tickly feeling in the foot all the way to the thigh but sensation on the left leg is normal. Patient states she had sudden onset yesterday when she got up from the chair on the porch in her right foot rolled over. She went in the house and laid down and elevating her legs but this does not seem to help manage came in the hospital for further evaluation. Pulse ox 90% on room air. WBC 14.8, Hemoccult 13.6, platelet count 218. Sodium 138, potassium 4.1, chloride 104, CO2 21, BUN 24 and creatinine 0.56. Blood sugar 203. Lactic acid was 5.3 and she was given 1 L of IV fluid followed by 130 mL per hour. X-ray of the right hip showed no acute abnormality of the pelvis or right hip. There are plate and screws for old intertrochanteric fracture of the right hip. Ultrasound of the right lower extremity was negative for DVT. Repeat lactic acid 1.9. Urinalysis clear, glucose 4+, ketones 1+, nitrate positive, leukoesterase moderate, WBC 32, bacteria rare. Urine culture and blood culture obtained. CAT scan of the abdomen and pelvis as well as orthopedic consult was added. Patient admitted to the [facility] floor, IV Decadron added and gabapentin increased frequency. 03/01: Patient states that she is feeling better today. Continues to have some weakness to the right side. This is more than likely related to the residual effect from her CVA previously. Patient was seen by orthopedics and started on steroids to help with pain control. Patient is also found to have a UTI which is currently being treated. Awaiting urinary and blood culture results. Discussed with patient the need for subacute rehab patient declined. Stating that she would be okay going home. We will initiate PTOT. Patient remains afebrile, heart rate 94, respirations 20, blood pressure 148/74, pulse ox 96% on room air. 03/02: Patient states that she is feeling better today however she is not quite back to herself. Patient states that she does not think she'll be able to manage at home and would like to have additional rehab. She is agreeable to go to subacute rehab. Consult social work was put in to assist with subacute rehab placement for hopefully tomorrow. She continues to have pain and right-sided weakness. REVIEW OF SYSTEMS Constitutional: No fever, no chills, no night sweats. No weight change. Repo rts weakness, reports fatigue denies lethargy. No daytime sleepiness. EENT: No headache. No blurred vision or double vision, no loss of vision. No loss of Hearing, no ringing in the ears, Reports dizziness. No nasal drainage or congestion. No epistaxis. No sore throat. Lungs: Denies shortness of breath, cough, no sputum production. No wheezing. Cardiovascular: No chest pain, no left lower extremity edema. No palpitations. No paroxysmal nocturnal dyspnea. No orthopnea. No lightheadedness or dizziness. No syncopal episodes. Abdominal: No abdominal pain. No nausea, vomiting. No diarrhea. No constipation. No bloody or tarry stools.. No loss of appetite. Genitourinary: No dysuria, increased frequency, urgency. No urinary retention. Reports incontinence, loss of bladder control Musculoskeletal: No myalgias. Reports muscle weakness, reports gait dysfunction, reports 2 recent falls. Reports back pain. No neck pain. Reports right leg pain, stiffness, numbness Integumentary: No wounds, no lesions. No rash or pruritus. No unusual bruising. Slight purple color of the fingertip with possibility of arterial thrombus. Neurologic: No aphasia. No facial droop. No change in mentation. No head injury. No headache. No paralysis. No paresthesia. Psychiatric: No depression. No anxiety. No mood swings. Endocrine: No abnormal blood sugars. PHYSICAL EXAMINATION Gen: This is A 80-year-old female. Patient is resting in bed appears to be uncomfortable. No respiratory distress is noted. HEENT: Head is atraumatic, normocephalic. Pupils equal, round. Sclerae is anicteric. NECK: Supple. No JVD. No lymphadenopathy. No thyromegaly. LUNGS: Clear to auscultation. No wheezes or rhonchi. No intercostal retractions. HEART: Regular rate and rhythm. No murmur. ABDOMEN: Soft. Bowel sounds are present. No masses. Right lower quadrant ten derness. BACK: Surgical wound is healed. No drainage, erythema. No deformity noted. EXTREMITIES: No pedal edema. No calf tenderness. Left foot drop, dorsalis pedis is +2 bilaterally. NEUROLOGICAL: Patient is awake, alert and oriented x3. Cranial nerves 2 through 12 are grossly intact. ASSESSMENT AND PLAN 1. Right lower extremity pain, stiffness and weakness. Consult with Dr. Edward appreciated, Decadron 4 mg IV every 8 hours, gabapentin increased frequency to 600 mg 3 times daily. Consult social work for subacute rehab placement 2. Chronic right sided weakness mostly in the right lower extremity secondary to previous stroke and lumbar disc disease. Continue eliquis 5 mg twice daily. 3. Severe lactic acidosis of unclear etiology. Patient is status post IV fluid. 4. Right lower quadrant abdominal pain. CAT scan of the abdomen and pelvis with contrast ordered. 5. History of pulmonary embolism. Continue Eliquis 5 mg twice daily. 6. Diabetes mellitus type 2. Continue Trijardy, NovoLog scale before meals and at bedtime. 7. Non-Hodgkin's lymphoma [place] [address] Monaco and follows with Dr. Aranda, in remission. 8. T12-L1 severe spondylosis, severe canal stenosis and impending conus syndrome s/p revision T12-L2 fusion and decompression with chronic back pain. Continue gabapentin 600 mg 3 times daily. 9. Hypertension. Continue atenolol 50 mg twice a day. 10. Hypothyroidism. Continue levothyroxine 12.5 g daily. 11. 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 Continue eliquis 5 mg twice daily. 12. Recurrent depression. Continue Cymbalta 90 mg daily. 13. Chronic gout. Continue allopurinol 100 mg daily. 14. Hyperlipidemia. Continue atorvastatin 40 mg at bedtime. 15. Restless leg syndrome. Continue Requip. 16. GERD and GI prophylaxis. Protonix CODE STATUS: Full code. Admit patient to the inpatient service for more than 2 night stay. DISCHARGE PLAN Subacute rehab, consult social work Impression and plan of care have been directed as dictated by the signing physician. Chioma Al nurse practitioner acting as scribe for signing physician Objective - Vital Signs Vital signs: Vital Signs Temp 98.1 F 03/02/21 07:00 Pulse 89 03/02/21 07:00 Resp 18 03/02/21 08:00 BP 118/92 03/02/21 07:00 Pulse Ox 95 03/02/21 07:00 Intake & Output 03/01/21 03/02/21 03/02/21 18:59 06:59 18:59 Intake Total 1220 300 Output Total 1999 1300 700 Balance -780 -1300 -400 Intake: IV 1040 Sodium Chloride 0.9% 1, 1040 000 ml @ 130 mls/hr IV . [id number] Rx#:[id number] Oral 180 300 Output: Urine 1999 1300 700 Other: Voiding Method External Catheter External Catheter External Catheter # Voids 1 - Labs CBC & Chem 7: 03/02/21 04:17 03/02/21 04:17 Labs: Abnormal Lab Results - Last 24 Hours (Table) 03/01/21 03/01/21 03/01/21 Range/Units 12:00 17:19 19:56 RBC (4.10-5.20) X 10*6/uL Hgb (12.0-15.0) g/dL Hct (37.2-46.3) % MCV (80.0-97.0) fL MCH (27.0-32.0) pg Metamyelocytes % (0-0) % Myelocytes % (0-0) % Lymphocytes # (Manual) (0.90-5.00) X 10*3/uL Eosinophils # (Manual) (0.04-0.35) X 10*3/uL Chloride (96-109) mmol/L Carbon Dioxide (21.6-31.8) mmol/L BUN/Creatinine Ratio (12.00-20.00) Ratio Glucose (70-110) mg/dL POC Glucose (mg/dL) 198 H 233 H 304 H (75-99) mg/dL Total Protein (6.2-8.2) g/dL Albumin (3.80-4.90) g/dL 03/02/21 03/02/21 03/02/21 Range/Units 04:17 04:17 06:57 RBC 3.19 L (4.10-5.20) X 10*6/uL Hgb 11.6 L (12.0-15.0) g/dL Hct 32.2 L (37.2-46.3) % MCV 100.9 H (80.0-97.0) fL MCH 36.4 H (27.0-32.0) pg Metamyelocytes % 3 H (0-0) % Myelocytes % 5 H (0-0) % Lymphocytes # (Manual) 0.39 L (0.90-5.00) X 10*3/uL Eosinophils # (Manual) 0 L (0.04-0.35) X 10*3/uL Chloride 112 H (96-109) mmol/L Carbon Dioxide 21.2 L (21.6-31.8) mmol/L BUN/Creatinine Ratio 30.00 H (12.00-20.00) Ratio Glucose 195 H (70-110) mg/dL POC Glucose (mg/dL) 171 H (75-99) mg/dL Total Protein 5.7 L (6.2-8.2) g/dL Albumin 3.70 L (3.80-4.90) g/dL 03/02/21 Range/Units 11:49 RBC (4.10-5.20) X 10*6/uL Hgb (12.0-15.0) g/dL Hct (37.2-46.3) % MCV (80.0-97.0) fL MCH (27.0-32.0) pg Metamyelocytes % (0-0) % Myelocytes % (0-0) % Lymphocytes # (Manual) (0.90-5.00) X 10*3/uL Eosinophils # (Manual) (0.04-0.35) X 10*3/uL Chloride (96-109) mmol/L Carbon Dioxide (21.6-31.8) mmol/L BUN/Creatinine Ratio (12.00-20.00) Ratio Glucose (70-110) mg/dL POC Glucose (mg/dL) 196 H (75-99) mg/dL Total Protein (6.2-8.2) g/dL Albumin (3.80-4.90) g/dL Microbiology - Last 24 Hours (Table) 02/27/21 22:55 Urine Culture - Final Urine,Voided Klebsiella pneumoniae 02/28/21 01:50 Blood Culture - Preliminary Blood No Growth after 48 hours 02/28/21 01:35 Blood Culture - Preliminary Blood No Growth after 48 hours
[2021-03-02] MEDS: CALCIUM CARB-VIT D 500 MG-5 MCG TAB PO SCH (12:43)
[2021-03-02 17:08] LABS: Glucose,Whole Blood 225 mg/dL (75-99)
[2021-03-02 20:35] LABS: Glucose,Whole Blood 371 mg/dL (75-99)
[2021-03-02] MEDS: ATORVASTATIN 40 MG TAB PO SCH (20:56)
[2021-03-02] MEDS: PANTOPRAZOLE 40 MG TABLET PO PRN (20:57)
[2021-03-02] MEDS: TEMAZEPAM 15 MG CAP PO SCH (20:57)
[2021-03-02] MEDS: rOPINIRole HCL 4 MG TABLET PO SCH (20:57)
[2021-03-03] MEDS: DEXAMETHASONE SOD PHOSPHATE 4 MG/ML 1 ML VIAL IV SCH ×4 (00:28→18:04)
[2021-03-03] MEDS: LEVOTHYROXINE 25 MCG TAB PO SCH (05:53)
[2021-03-03 07:27] LABS: Glucose,Whole Blood 196 mg/dL (75-99)
[2021-03-03] MEDS: INSULIN ASPART (NovoLOG) 100 UNIT/ML VIAL SQ SCH ×4 (08:35→21:27)
[2021-03-03] MEDS: APIXABAN 5 MG TAB PO SCH ×2 (08:36→21:25)
[2021-03-03] MEDS: DULoxetine HCL 30 MG CAPSULE.DR PO SCH (08:36)
[2021-03-03] MEDS: allopurinoL 100 MG TAB PO SCH (08:36)
[2021-03-03] MEDS: DULoxetine HCL 60 MG CAPSULE.DR PO SCH (08:36)
[2021-03-03] MEDS: DOXYCYCLINE 100 MG CAP PO SCH (08:36)
[2021-03-03] MEDS: GABAPENTIN 300 MG CAP PO SCH ×3 (08:36→21:27)
[2021-03-03] MEDS: CLOPIDOGREL 75 MG TAB PO SCH (08:36)
[2021-03-03] MEDS: PSYLLIUM HUSK 100% 6 GM PACKET PO SCH ×2 (08:37→21:28)
[2021-03-03] MEDS: IPRATROPIUM BROMIDE 0.06% NASAL SPRAY (15 ML) EA NOSTRIL SCH (08:37)
--- NOTE | 2021-03-03 09:33 | P.DS ---
Providers Date of admission: 02/28/21 10:47 Expected date of discharge: 03/04/21 Attending physician: Carlos Enrique Farooq Consults: 02/28/21 10:34 Consult Physician Routine Consulting Provider: Claudio Plummer Consult Reason/Comments: right leg pain, lumbar eval in past Do you want consulting provider notified?: Yes 02/28/21 15:19 Consult Physician Routine Consulting Provider: Jesus Villarreal Consult Reason/Comments: new onset facial numbness, resolved. hx cva Do you want consulting provider notified?: Yes Primary care physician: [facility] Course: HISTORY OF PRESENT ILLNESS This is a 81-year-old female one of Dr. Rocha patient with past medical history of Factor V Leiden deficiency, type 2 diabetes, non-Hodgkin's lymphoma [place] [address] Monaco and follows with Dr. Aranda status post chemotherapy and radiation therapy, hypertension, hyperlipidemia, hypertension, hypothyroidism, restless leg syndrome, recurrent depression, and osteoarthritis who has been treated for lower back pain post multiple lower back surgery and epidural injection with pain management at [facility], previous admission for acute GI bleed and acute blood loss anemia status post EGD and colonoscopy which revealed antral gastritis, area of ulceration, nonbleeding, in the distal transverse colon, history of pulmonary embolism and left lower leg DVT diagnosed 03/08/[address] [facility], history of multiple strokes with bilateral hemisphere including 1 in 01/01/2021 after she had procedure for right brachiocephalic stenosis status post percutaneous transluminal angioplasty and stent placement developed stroke that affected the right side. Patient was hospitalized in January for CVA with worsening right-sided weakness and was also seen by Dr. Edward's in for right lower extremity weakness. Patient is complaining of significant pain in the right hip and groin area. She has pain from the thigh all the way to the foot with right lower quadrant tenderness. She states she has back pain on and off and has been on oral steroids and recently treated for urinary tract infection with 1-2 more days of antibiotics to complete. She complains of significant stiffness of the right leg and tickly feeling in the foot all the way to the thigh but sensation on the left leg is normal. Patient states she had sudden onset yesterday when she got up from the chair on the porch in her right foot rolled over. She went in the house and laid down and elevating her legs but this does not seem to help manage came in the hospital for further evaluation. Pulse ox 90% on room air. WBC 14.8, Hemoccult 13.6, platelet count 218. Sodium 138, potassium 4.1, chloride 104, CO2 21, BUN 24 and creatinine 0.56. Blood sugar 203. Lactic acid was 5.3 and she was given 1 L of IV fluid followed by 130 mL per hour. X-ray of the right hip showed no acute abnormality of the pelvis or right hip. There are plate and screws for old intertrochanteric fracture of the right hip. Ultrasound of the right lower extremity was negative for DVT. Repeat lactic acid 1.9. Urinalysis clear, glucose 4+, ketones 1+, nitrate positive, leukoesterase moderate, WBC 32, bacteria rare. Urine culture and blood culture obtained. CAT scan of the abdomen and pelvis as well as orthopedic consult was added. Patient admitted to the [facility] floor, IV Decadron added and gabapentin increased frequency. 03/01: Patient states that she is feeling better today. Continues to have some weakness to the right side. This is more than likely related to the residual effect from her CVA previously. Patient was seen by orthopedics and started on steroids to help with pain control. Patient is also found to have a UTI which is currently being treated. Awaiting urinary and blood culture results. Discussed with patient the need for subacute rehab patient declined. Stating that she would be okay going home. We will initiate PTOT. Patient remains afebrile, heart rate 94, respirations 20, blood pressure 148/74, pulse ox 96% on room air. 03/02: Patient states that she is feeling better today however she is not quite back to herself. Patient states that she does not think she'll be able to manage at home and would like to have additional rehab. She is agreeable to go to subacute rehab. Consult social work was put in to assist with subacute rehab placement for hopefully tomorrow. She continues to have pain and right-sided weakness. 03/03: Patient has been afebrile, heart rate in the 90s, blood pressure this morning before medications was 165/106, pulse ox 90% on room air. Patient will be started on lisinopril. Patient has been seen and followed during this hospitalization by orthopedic spine with plan to follow-up in outpatient setting in 10-14 days. We will plan to continue the increased dose of gabapentin and a steroid taper at discharge. Urine cultures Klebsiella pneumoniae and patient will be discharged on a course of Ceftin. Therapies recommended subacute rehab and social work has been updated. Patient is agreeable to go to rehab. Patient will be discharged today once arrangements are completed. 03/04: Patient's discharge was delayed until this morning. She has no new complaints. Blood pressure is improved with addition of lisinopril. Patient will be discharged to [facility] for subacute rehab today in stable condition. ASSESSMENT AND PLAN 1. Right lower extremity pain, stiffness and weakness. 2. Chronic right sided weakness mostly in the right lower extremity secondary to previous stroke and lumbar disc disease. 3. Severe lactic acidosis of unclear etiology. 4. Right lower quadrant abdominal pain. 5. History of pulmonary embolism. 6. Diabetes mellitus type 2. 7. Non-Hodgkin's [place] [address] Monaco and follows with Dr. Aranda, in remission. 8. T12-L1 severe spondylosis, severe canal stenosis and impending conus syndrome s/p revision T12-L2 fusion and decompression with chronic back pain. 9. Hypertension. 10. Hypothyroidism. 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 Recurrent depression. 13. Chronic gout. 14. Hyperlipidemia. 15. Restless leg syndrome. 16. GERD. DISCHARGE PLAN Subacute rehab at [facility] Impression and plan of care have been directed as dictated by the signing physician. Karen Quintero nurse practitioner acting as scribe for signing physician. Patient Condition at Discharge: Good Plan - Discharge Summary Discharge Rx Participant: No New Discharge Prescriptions: New Baclofen [Lioresal] 10 mg PO TID PRN tab PRN Reason: Muscle Spasm Lisinopril [Zestril] 10 mg PO DAILY #30 tab Gabapentin [Neurontin] 600 mg PO TID #18 cap Cefuroxime [Ceftin] 250 mg PO BID 5 Days #10 tab Continue allopurinoL [Zyloprim] 100 mg PO DAILY Calcium Carb-Vit D 500Mg-5Mcg [Oscal 500+D 5 Mcg (200 Iu)] 1 tab PO DAILY Levothyroxine Sodium [Synthroid] 12.5 mcg PO DAILY Ipratropium [place] 0.06%Nasal [Atrovent Nasal 0.06%] 2 spr EA NOSTRIL BID Dexlansoprazole [Dexilant] 60 mg PO DAILY PRN PRN Reason: Heartburn Empaglifloz/Linaglip/Metformin [Trijardy Xr 25-5-1,000 mg Tab] 1 tab PO DAILY Apixaban [Eliquis] 5 mg PO BID DULoxetine HCL [Cymbalta] 60 mg PO DAILY DULoxetine HCL [Cymbalta] 30 mg PO DAILY HYDROcodone/APAP 10-325MG [Sitka 10-325] 1 tab PO BID PRN #6 tab PRN Reason: Pain Atenolol [Tenormin] 50 mg PO BID #0 Temazepam [Restoril] 15 mg PO HS #3 cap Estradiol Cream [Estrace Cream 0.01%] 1 gm VAGINAL SUTH rOPINIRole HCL [Requip] 4 mg PO HS Atorvastatin [Lipitor] 40 mg PO HS Loperamide [Imodium] 2 mg PO TID PRN PRN Reason: Diarrhea Clopidogrel [Plavix] 75 mg PO DAILY #30 tab Collagenase [Santyl] 1 applic TOPICAL DAILY Psyllium Husk (with Sugar) [Metamucil Powder] 6 gm PO BID Changed dexAMETHasone [Dexamethasone] See Taper PO BID #30 Discontinued Gabapentin [Neurontin] 300 mg PO HS Doxycycline Hyclate 100 mg PO DAILY Discharge Medication List Calcium Carb-Vit D 500Mg-5Mcg [Oscal 500+D 5 Mcg (200 Iu)] 1 tab PO DAILY 01/05/14 [History] allopurinoL [Zyloprim] 100 mg PO DAILY 01/05/14 [History] Levothyroxine Sodium [Synthroid] 12.5 mcg PO DAILY 03/16/14 [History] Ipratropium [place] 0.06%Nasal [Atrovent Nasal 0.06%] 2 spr EA NOSTRIL BID 07/03/20 [History] Dexlansoprazole [Dexilant] 60 mg PO DAILY PRN 08/07/20 [History] Empaglifloz/Linaglip/Metformin [Trijardy Xr 25-5-1,000 mg Tab] 1 tab PO DAILY 09/20/20 [History] Apixaban [Eliquis] 5 mg PO BID 10/06/20 [History] DULoxetine HCL [Cymbalta] 60 mg PO DAILY 12/17/20 [History] Estradiol Cream [Estrace Cream 0.01%] 1 gm VAGINAL SUTH 12/17/20 [History] Atorvastatin [Lipitor] 40 mg PO HS 12/27/20 [History] rOPINIRole HCL [Requip] 4 mg PO HS 12/27/20 [History] Loperamide [Imodium] 2 mg PO TID PRN 12/30/20 [History] Clopidogrel [Plavix] 75 mg PO DAILY #30 tab 01/06/21 [Rx] Collagenase [Santyl] 1 applic TOPICAL DAILY 02/13/21 [History] Psyllium Husk (with Sugar) [Metamucil Powder] 6 gm PO BID 02/13/21 [History] DULoxetine HCL [Cymbalta] 30 mg PO DAILY 02/28/21 [History] Atenolol [Tenormin] 50 mg PO BID #0 03/03/21 [Rx] Baclofen [Lioresal] 10 mg PO TID PRN tab 03/03/21 [Rx] Cefuroxime [Ceftin] 250 mg PO BID 5 Days #10 tab 03/03/21 [Rx] Gabapentin [Neurontin] 600 mg PO TID #18 cap 03/03/21 [Rx] HYDROcodone/APAP 10-325MG [[place] 10-325] 1 tab PO BID PRN #6 tab 03/03/21 [Rx] Lisinopril [Zestril] 10 mg PO DAILY #30 tab 03/03/21 [Rx] dexAMETHasone [Dexamethasone] See Taper PO BID #30 03/03/21 [Rx] Temazepam [Restoril] 15 mg PO HS #3 cap 03/04/21 [Rx] Follow up Appointment(s)/Referral(s): Claudio Plummer DO [Doctor of Osteopathic Medicine] - 2 Weeks Alvarez Rocha DO [Primary Care Provider] - 1 Week (after dc from [facility]) Discharge Disposition: TRANSFER TO SNF/ECF
[2021-03-03 09:40] VITALS: RESP 17
--- NOTE | 2021-03-03 10:22 | P.PN ---
Subjective Progress Note Date: 03/03/21 Patient is evaluated today at bedside, she is resting in her hospital bed. Plan is for discharge to subacute rehab today. She states that the right lower extremity is feeling better, she is able to extend and flex the knee little bit better today along with the hip. She still continues to have some discomfort in the right lower extremity. Objective - Vital Signs Vital signs: Vital Signs Temp 97.8 F 03/03/21 07:00 Pulse 94 03/03/21 07:00 Resp 17 03/03/21 07:00 BP 165/106 03/03/21 07:00 Pulse Ox 98 03/03/21 07:00 Intake & Output 03/02/21 03/03/21 03/03/21 18:59 06:59 18:59 Intake Total 500 Output Total 1300 1600 Balance -800 -1600 Intake: Oral 500 Output: Urine 1300 1600 Other: Voiding Method External Catheter External Catheter # Voids 1 - Exam Gen: AOx3, NAD VSS stable at this time Integument: No open lesions or sores are visualized throughout the cervical, thoracic or lumbar spine Palpation: No significant tenderness with palpation of the midline and paraspinal region of the cervical, thoracic and lumbar spine ROM: Range of motion all major muscle groups of bilateral upper extremities are intact Range of motion in the major muscle groups in the bilateral lower extremities are intact, she does have difficulty with knee flexion Sensory Exam: Senory exam to light touch is intact C5-T1 Senosry exam to light touch is intact L2-S1 Strength: 5 out of 5 strength is appreciated with hip flexion, knee extension, knee flexion, EHL, FHL, plantar flexion, dorsiflexion of the left lower extremity 4/5 strength is appreciated with hip flexion, knee extension, knee flexion, EHL, dorsiflexion of the right lower extremity, 5 out of 5 strength appreciated with FHL and plantar flexion in the right lower extremity Reflexes: Negative clonus, negative Keshawn's, negative Babinski bilaterally. She continues to demonstrate rigid posture and the right foot, it seems to have improved slightly. - Labs CBC & Chem 7: 03/02/21 04:17 03/02/21 04:17 Labs: Abnormal Lab Results - Last 24 Hours (Table) 03/02/21 03/02/21 03/02/21 Range/Units 04:17 11:49 17:05 Metamyelocytes % 3 H (0-0) % Myelocytes % 5 H (0-0) % Lymphocytes # (Manual) 0.39 L (0.90-5.00) X 10*3/uL Eosinophils # (Manual) 0 L (0.04-0.35) X 10*3/uL POC Glucose (mg/dL) 196 H 225 H (75-99) mg/dL 03/02/21 03/03/21 Range/Units 20:33 07:26 Metamyelocytes % (0-0) % Myelocytes % (0-0) % Lymphocytes # (Manual) (0.90-5.00) X 10*3/uL Eosinophils # (Manual) (0.04-0.35) X 10*3/uL POC Glucose (mg/dL) 371 H 196 H (75-99) mg/dL Microbiology - Last 24 Hours (Table) 02/28/21 01:35 Blood Culture - Preliminary Blood No Growth after 72 hours 02/28/21 01:50 Blood Culture - Preliminary Blood No Growth after 72 hours 02/27/21 22:55 Urine Culture - Final Urine,Voided Klebsiella pneumoniae Assessment and Plan Assessment: 81-year-old female with complex medical history history of TIA stroke upper extremity DVT lower extremity weakness and pain with radiculopathy history of surgical intervention low back history of anterior cervical discectomy and fusion with continued cervical stenosis. Multiple comorbidities Plan: Orthopedic spine surgical intervention recommended at this time Recommend continuing use of the gabapentin 600 mg 3 times a day, there has been a steroid taper placed for discharge Recommend continued use of walker or cane with ambulation Plan for follow-up with Dr. Plummer in the outpatient setting for recheck of symptoms next 10-14 days Time with Patient: Less than 30
[2021-03-03 12:08] LABS: Glucose,Whole Blood 262 mg/dL (75-99)
[2021-03-03] MEDS: CALCIUM CARB-VIT D 500 MG-5 MCG TAB PO SCH (13:00)
[2021-03-03] MEDS: lisinopriL 10 MG TAB PO SCH (13:35)
[2021-03-03] MEDS: HYDROcodone/APAP 10-325MG 1 EACH TAB PO PRN ×2 (16:40→21:31)
[2021-03-03] MEDS: BACLOFEN 10 MG TAB PO PRN (16:41)
[2021-03-03 17:17] LABS: Glucose,Whole Blood 358 mg/dL (75-99)
[2021-03-03 20:37] LABS: Glucose,Whole Blood 358 mg/dL (75-99)
[2021-03-03] MEDS: ATORVASTATIN 40 MG TAB PO SCH (21:25)
[2021-03-03] MEDS: TEMAZEPAM 15 MG CAP PO SCH (21:26)
[2021-03-03] MEDS: rOPINIRole HCL 4 MG TABLET PO SCH (21:26)
[2021-03-04] MEDS: DEXAMETHASONE SOD PHOSPHATE 4 MG/ML 1 ML VIAL IV SCH ×3 (01:28→12:20)
[2021-03-04] MEDS: PANTOPRAZOLE 40 MG TABLET PO PRN ×2 (01:29→07:42)
[2021-03-04 02:00] VITALS: PULSE 98
[2021-03-04] MEDS: LEVOTHYROXINE 25 MCG TAB PO SCH (06:25)
[2021-03-04 07:16] LABS: Glucose,Whole Blood 217 mg/dL (75-99)
[2021-03-04] MEDS: allopurinoL 100 MG TAB PO SCH (07:42)
[2021-03-04] MEDS: APIXABAN 5 MG TAB PO SCH (07:42)
[2021-03-04] MEDS: DULoxetine HCL 60 MG CAPSULE.DR PO SCH (07:42)
[2021-03-04] MEDS: GABAPENTIN 300 MG CAP PO SCH (07:42)
[2021-03-04] MEDS: CLOPIDOGREL 75 MG TAB PO SCH (07:42)
[2021-03-04] MEDS: IPRATROPIUM BROMIDE 0.06% NASAL SPRAY (15 ML) EA NOSTRIL SCH ×2 (07:45→08:20)
[2021-03-04 07:57] VITALS: BP 134/83; TEMP 97.7
[2021-03-04] MEDS: DULoxetine HCL 30 MG CAPSULE.DR PO SCH (08:19)
[2021-03-04] MEDS: lisinopriL 10 MG TAB PO SCH (08:19)
[2021-03-04] MEDS: INSULIN ASPART (NovoLOG) 100 UNIT/ML VIAL SQ SCH ×2 (08:19→13:27)
[2021-03-04] MEDS: PSYLLIUM HUSK 100% 6 GM PACKET PO SCH (08:20)
[2021-03-04] MEDS: HYDROcodone/APAP 10-325MG 1 EACH TAB PO PRN (10:22)
[2021-03-04 11:11] VITALS: BMI 24.5
[2021-03-04 12:18] LABS: Glucose,Whole Blood 343 mg/dL (75-99)
[2021-03-04] MEDS: CALCIUM CARB-VIT D 500 MG-5 MCG TAB PO SCH (13:27)
--- NOTE | 2021-03-04 14:15 | P.PN ---
Subjective Progress Note Date: 03/04/21 Patient was seen for a follow-up. Patient was seen initially by Dr. Karen Tam. Please refer to her note for details. Patient at present is ready for discharge. She is dressed up. Going to [facility]. Patient's daughter was also present. Patient has developed acute onset of right lower back and right leg pain with weakness of the right ankle started , 02/27/2021. On that day, she got up out of the chair and walking and the leg buckled. She was walking with a walker and managed to go to the bedroom. Patient is having pain in the entire right leg and the foot is weak. Any movement of the right leg produces pain in the hip. The knee is very stiff. Patient has been seen by orthopedic surgery, Dr. Plummer, who feels the problem could be multifactorial including her cervical, lumbar spine, all could be the level of the hip or the knee. Patient is on gabapentin. Patient has history of diabetes for 10 years, last A1c 6.5 on 01/30/2021. Patient also has history of bilateral strokes while she was undergoing surgery for subclavian artery stenosis in December 2020. Patient has history of DVT. She is currently on Eliquis 5 mg twice a day and Plavix 75 mg. Patient denies any perioral numbness. Patient states that yesterday she felt slight heaviness in the right arm but now it's gone. Objective - Vital Signs Vital signs: Vital Signs Temp 97.7 F 03/04/21 07:00 Pulse 98 03/04/21 08:00 Resp 17 03/04/21 08:00 BP 134/83 03/04/21 07:00 Pulse Ox 97 03/04/21 07:00 Intake & Output 03/03/21 03/04/21 03/04/21 18:59 06:59 18:59 Intake Total 993 416 Output Total 800 2600 Balance 193 -2600 416 Weight 60.781 kg Intake: Oral 993 416 Output: Urine 800 2600 Other: Voiding Method External Catheter External Catheter Diaper External Catheter # Voids 1 # Bowel Movements 1 - Exam Patient's mental status speech and language functions are normal. Cranial nerves are normal. Muscle strength is normal in the upper extremities. In the lower extremities (right/left) hip flexion 4/5, knee extension 5/5, hip adduction and abduction cannot be checked because of significant stiffness and rigidity in the right leg. Ankle dorsiflexion 2/5, inversion 5/5, foot eversion 0/5. Plantar flexion 4/5. Reflexes are 1 in the upper limbs, patient has bilateral knee surgeries. Ankles 1 and plantars are downgoing. Patient has decreased sensation for touch circumferentially in the right lower leg as nathan red to the left. Examination also shows multiple bruises, ecchymosis in her forearms, as well as in the lower limbs, most likely from blood thinners. - Labs CBC & Chem 7: 03/02/21 04:17 03/02/21 04:17 Labs: Abnormal Lab Results - Last 24 Hours (Table) 03/03/21 03/03/21 03/04/21 Range/Units 17:15 20:36 07:15 POC Glucose (mg/dL) 358 H 358 H 217 H (75-99) mg/dL 03/04/21 Range/Units 12:16 POC Glucose (mg/dL) 343 H (75-99) mg/dL Microbiology - Last 24 Hours (Table) 02/28/21 01:35 Blood Culture - Preliminary Blood No Growth after 96 hours 02/28/21 01:50 Blood Culture - Preliminary Blood No Growth after 96 hours Assessment and Plan Assessment: 1. Patient is a 81-year-old female with a history of multiple strokes and residual right sided weakness, primarily lower extremity. Recent symptoms included bilateral facial tingling-unlikely to be TIA or stroke, also in the setting of anticoagulation and Plavix-stroke is unlikely. Possible medication effect versus metabolic etiology versus anxiety 2. History of multiple cerebral infarcts 3. History of chronic right lower extremity weakness and pain 4. History of hypertension 5. History of diabetes mellitus 6. History of DVT 7. History of factor V Leiden 8. History of multiple lower back and neck surgeries. Right leg pain and weakness in L5 myotome could be could be related to a herniated disc, versus diabetic amyotrophy/plexopathy. However orthopedic issue related to hip and knee may be contributing. Plan: * Patient's MRI of the lumbar spine on 02/14/2021 shows multilevel posterior fusion surgery. Large posterior T12 to L1 disc herniation with osteophyte formation unchanged. No evidence of any significant spinal stenosis. No fracture. * Patient has been seen by orthopedic surgery Dr. Plummer, who is r ecommending no surgery. * Suggest patient undergo EMG testing of the right lower extremity as outpatient to evaluate for radiculopathy versus plexopathy. * Continue to follow up with orthopedics surgery as outpatient. * Continue gabapentin. Also on baclofen 10 mg 3 times a day. * Continue anticoagulation with Eliquis 5 mg twice a day and Plavix and 5 mg for stroke prevention. * CTA of head and neck from 02/13/2021 showed no significant aneurysm or stenosis. * Patient almost ready for transfer to [facility].
== END 2021-03-04 14:19 | DRG 552 ==
LOC: EC 21:51 → 6NMEDSUR 02-28 02:13 → OBSVTOIN 02-28 10:47
PROVIDERS: ADMIT Internal Medicine Geriatric Medicine; ATTEND Internal Medicine Geriatric Medicine
DX: M51.16 Intervertebral disc disorders with radiculopathy, lumbar region (principal); D68.51 Activated protein C resistance; E87.2 Acidosis; F33.9 Major depressive disorder, recurrent, unspecified; I69.351 Hemiplegia and hemiparesis following cerebral infarction affecting right dominant side; N39.0 Urinary tract infection, site not specified; E11.44 Type 2 diabetes mellitus with diabetic amyotrophy; E11.41 Type 2 diabetes mellitus with diabetic mononeuropathy; E11.51 Type 2 diabetes mellitus with diabetic peripheral angiopathy without gangrene; M48.04 Spinal stenosis, thoracic region; M47.25 Other spondylosis with radiculopathy, thoracolumbar region; M48.061 Spinal stenosis, lumbar region without neurogenic claudication; M48.02 Spinal stenosis, cervical region; G57.91 Unspecified mononeuropathy of right lower limb; S99.921A Unspecified injury of right foot, initial encounter; E03.9 Hypothyroidism, unspecified; G25.81 Restless legs syndrome; E78.5 Hyperlipidemia, unspecified; I10 Essential (primary) hypertension; G89.29 Other chronic pain; K44.9 Diaphragmatic hernia without obstruction or gangrene; M21.371 Foot drop, right foot; K21.9 Gastro-esophageal reflux disease without esophagitis; M19.90 Unspecified osteoarthritis, unspecified site; F41.9 Anxiety disorder, unspecified; I83.90 Asymptomatic varicose veins of unspecified lower extremity; M1A.9XX0 Chronic gout, unspecified, without tophus (tophi); R13.10 Dysphagia, unspecified; M20.40 Other hammer toe(s) (acquired), unspecified foot; Z79.84 Long term (current) use of oral hypoglycemic drugs; Z79.01 Long term (current) use of anticoagulants; Z79.02 Long term (current) use of antithrombotics/antiplatelets; Z79.890 Hormone replacement therapy; Z79.899 Other long term (current) drug therapy; Z95.5 Presence of coronary angioplasty implant and graft; Z86.711 Personal history of pulmonary embolism; Z92.3 Personal history of irradiation; Z92.21 Personal history of antineoplastic chemotherapy; Z86.718 Personal history of other venous thrombosis and embolism; Z85.72 Personal history of non-Hodgkin lymphomas; Z87.11 Personal history of peptic ulcer disease; Z86.69 Personal history of other diseases of the nervous system and sense organs; Z90.49 Acquired absence of other specified parts of digestive tract; Z87.19 Personal history of other diseases of the digestive system; Z90.710 Acquired absence of both cervix and uterus; Z87.42 Personal history of other diseases of the female genital tract; Z90.89 Acquired absence of other organs; Z96.653 Presence of artificial knee joint, bilateral; Z98.1 Arthrodesis status; Z98.42 Cataract extraction status, left eye; Z98.41 Cataract extraction status, right eye; Z87.81 Personal history of (healed) traumatic fracture; Z87.01 Personal history of pneumonia (recurrent); Z87.2 Personal history of diseases of the skin and subcutaneous tissue; Z86.2 Personal history of diseases of the blood and blood-forming organs and certain disorders involving the immune mechanism; Z98.890 Other specified postprocedural states; X50.1XXA Overexertion from prolonged static or awkward postures, initial encounter; Z88.1 Allergy status to other antibiotic agents; Z88.5 Allergy status to narcotic agent; Z88.0 Allergy status to penicillin; Z88.2 Allergy status to sulfonamides; Z91.048 Other nonmedicinal substance allergy status; Z83.2 Family history of diseases of the blood and blood-forming organs and certain disorders involving the immune mechanism; Z80.3 Family history of malignant neoplasm of breast; Z82.49 Family history of ischemic heart disease and other diseases of the circulatory system; Z80.1 Family history of malignant neoplasm of trachea, bronchus and lung; Z82.3 Family history of stroke
CPT/HCPCS: 36415; 73502; 74177; 80053; 81001; 83605; 83735; 85025; 85610; 85730; 86140; 87040; 87077; 87086; 87186; 94760; 96374; 96376; 99285

== ENCOUNTER → 2021-03-17 | Outpatient (CLI) | payer MEDICARE ==
--- NOTE | 2021-03-17 15:47 | CT ---
EXAMINATION TYPE: CT angio head DATE OF EXAM: 03/17/2021 COMPARISON: 02/13/2021 HISTORY: 81-year-old female G4 5.9, TIA TECHNIQUE: Contiguous axial scanning of the brain performed without and with IV Contrast, patient inj ected with 80 mL of Isovue 370. Coronal/sagittal MIP reconstructions performed. 3-D reconstructions g enerated on a dedicated independent workstation. CT DLP: 2033 mGycm Automated exposure control for dose reduction was used. FINDINGS: Noncontrast CT head: No evidence for acute intracranial hemorrhage, acute ischemic change, mass, mass effect, midline shif t, or extra-axial fluid collection. No hydrocephalus. No effacement of cerebral sulci or basal subara chnoid cisterns. [place]-white matter differentiation is maintained. Mild age-related cerebral cortical volume loss. Mild patchy white matter hypodensities in both cerebr al hemispheres compatible with chronic small vessel ischemic disease. Atherosclerotic calcifications within the carotid siphons. Minimal trapped fluid within the inferior mastoid air cells on both sides. Partial opacification of t he middle left ethmoid air cells. Orbits and globes are intact. CTA: Mild smooth narrowing proximal left vertebral artery and mid right vertebral artery. No significant s tenosis. Basilar artery is patent. Mild fusiform dilatation at the distal basilar artery up to 4 mm. There is a hypoplastic P1 segment left posterior cerebral artery with a prominent left posterior comm unicating artery. Otherwise, the posterior circulation appears patent. Bilateral internal carotid arteries are patent. There is mild atherosclerotic narrowing of less than 50% at the bilateral supraclinoid ICAs. The remaining anterior circulation is patent. No other aneurysmal change is seen. IMPRESSION: 1. CT HEAD: MILD AGE-RELATED VOLUME LOSS AND CHANGES OF CHRONIC SMALL VESSEL ISCHEMIC DISEASE. NO ACU TE INTRACRANIAL ABNORMALITY SEEN. 2. CTA: MILD ATHEROSCLEROTIC NARROWING WITHIN THE BILATERAL SUPRACLINOID ICA's. MILD FUSIFORM DILATAT ION OF THE DISTAL BASILAR ARTERY UP TO 4 MM. NO LARGE VESSEL INTRACRANIAL ARTERIAL OCCLUSION, SIGNIFI CANT STENOSIS, OR OTHERWISE ANY ANEURYSMAL CHANGE SEEN.
== END | disposition home or self-care (01) ==
LOC: RADCTMAIN 12:33
PROVIDERS: ATTEND Family Medicine
DX: I67.82 Cerebral ischemia (principal)
CPT/HCPCS: 82565; 84520; 70496; 36415; Q9967

== ENCOUNTER 2021-03-28 20:02 | Inpatient (IN) | payer MEDICARE ==
--- NOTE | 2021-03-28 20:42 | ED ---
General Adult HPI - General Chief complaint: Shortness of Breath Stated complaint: Trouble Swallowing Time Seen by Provider: 03/28/21 20:23 Source: patient, EMS Mode of arrival: EMS - History of Present Illness Initial comments: 81-year-old female patient with multiple medical problems presents to the emergency department today for evaluation of shortness of breath. Patient sta essie a couple of hours ago she choked on her milk and then an episode of vomiting. States she was short of breath before the episode. States she has been coughing. Denies fever or chills. Denies any chest pain. Denies nausea or vomiting. Patient denies any recent rash, fever, chills, cough, shortness of breath, chest pain, abdominal pain, nausea, vomiting, diarrhea, constipation, back pain, numbness, tingling, dizziness, weakness, hematuria, dysuria, urinary urgency, urinary frequency, headache, visual changes, or any other complaints. She is currently taking levaquin for UTI. - Related Data Home Medications Medication Instructions Recorded Confirmed Calcium Carb-Vit D 500Mg-5Mcg 1 tab PO DAILY 01/05/14 02/28/21 [Oscal 500+D 5 Mcg (200 Iu)] allopurinoL [Zyloprim] 100 mg PO DAILY 01/05/14 02/28/21 Levothyroxine Sodium [Synthroid] 12.5 mcg PO DAILY 03/16/14 02/28/21 Ipratropium [place] 0.06%Nasal 2 spr EA NOSTRIL BID 07/03/20 02/28/21 [Atrovent Nasal 0.06%] Dexlansoprazole [Dexilant] 60 mg PO DAILY PRN 08/07/20 02/28/21 Empaglifloz/Linaglip/Metformin 1 tab PO DAILY 09/20/20 02/28/21 [Trijardy Xr 25-5-1,000 mg Tab] Apixaban [Eliquis] 5 mg PO BID 10/06/20 02/28/21 DULoxetine HCL [Cymbalta] 60 mg PO DAILY 12/17/20 02/28/21 Estradiol Cream [Estrace Cream 1 gm VAGINAL SUTH 12/17/20 02/28/21 0.01%] Atorvastatin [Lipitor] 40 mg PO HS 12/27/20 02/28/21 rOPINIRole HCL [Requip] 4 mg PO HS 12/27/20 02/28/21 Loperamide [Imodium] 2 mg PO TID PRN 12/30/20 02/28/21 Collagenase [Santyl] 1 applic TOPICAL DAILY 02/13/21 02/28/21 Psyllium Husk (with Sugar) 6 gm PO BID 02/13/21 02/28/21 [Metamucil Powder] DULoxetine HCL [Cymbalta] 30 mg PO DAILY 02/28/21 02/28/21 Previous Rx's Medication Instructions Recorded Clopidogrel [Plavix] 75 mg PO DAILY #30 tab 01/06/21 Atenolol [Tenormin] 50 mg PO BID #0 03/03/21 Baclofen [Lioresal] 10 mg PO TID PRN tab 03/03/21 Cefuroxime [Ceftin] 250 mg PO BID 5 Days #10 tab 03/03/21 Gabapentin [Neurontin] 600 mg PO TID #18 cap 03/03/21 HYDROcodone/APAP 10-325MG [[place] 1 tab PO BID PRN #6 tab 03/03/21 10-325] Lisinopril [Zestril] 10 mg PO DAILY #30 tab 03/03/21 dexAMETHasone See Taper PO BID #30 03/03/21 Temazepam [Restoril] 15 mg PO HS #3 cap 03/04/21 Allergies Allergy/AdvReac Type Severity Reaction Status Date / Time adhesive Allergy red skin, Verified 02/28/21 06:55 blisters cefaclor [From Ceclor] Allergy Rash/Hives Verified 02/28/21 06:55 ciprofloxacin [From Cipro] Allergy Rash/Hives Verified 02/28/21 06:55 ciprofloxacin HCl Allergy Rash/Hives Verified 02/28/21 06:55 [From Cipro] hydromorphone HCl Allergy Anaphylaxis Verified 02/28/21 06:55 [From Dilaudid] Penicillins Allergy Rash/Hives Verified 02/28/21 06:55 clindamycin AdvReac Nausea & Verified 02/28/21 06:55 Vomiting sulfamethoxazole AdvReac Abdominal Verified 02/28/21 06:55 [From Bactrim] Pain trimethoprim [From Bactrim] AdvReac Abdominal Verified 02/28/21 06:55 Pain Review of Systems ROS Statement: Those systems with pertinent positive or pertinent negative responses have been documented in the HPI. ROS Other: All systems not noted in ROS Statement are negative. Past Medical History Past Medical History: Cancer, CVA/TIA, Diabetes Mellitus, Deep Vein Thrombosis (DVT), GERD/Reflux, GI Bleed, Hyperlipidemia, Hypertension, Osteoarthritis (OA), Pneumonia, Pulmonary Embolus (PE), Skin Disorder, Syncope, Thyroid Disorder, Vascular Disorder Additional Past Medical History / Comment(s): Brachial/cephalic artery PTBA/stent with post procedure CVAs with R sided weakness/R leg worse, TIAs, FALLS, DVT L leg with L PE, NIDDM type II, neuropathy R leg, R foot drop, nonhodgkins lymphoma with chemo/radiation of throat d/t cancerous mass that was removed, stomach ulcer, occasional dysphagia, hiatal hernia, co nstipation/diarrhea, lower GI bleed, chronic lumbar back pain/severe spondylosis/stenosis T12/L1, gout, infrequent migraines, hammer toes, RLS, bruises easily, hypothyroid. History of Any Multi-Drug Resistant Organisms: None Reported Past Surgical History: Appendectomy, Back Surgery, Bladder Surgery, Breast Surgery, Cholecystectomy, Hysterectomy, Joint Replacement, Orthopedic Surgery, Tonsillectomy Additional Past Surgical History / Comment(s): 12/2020 PTBA with stent R brachial/cephalic artery, cervical fusion, lumbar laminectomy, R hip repair, bilateral thumbs/rods, R 3rd toe nathaniel, bilateral total knee arthroplasties, pain clinic procedures, R femur biopsy, D&Cs, bladder suspension, EGD, colonoscopies, L breast biopsy/axilary bx, bilateral cataract removals. Past Anesthesia/Blood Transfusion Reactions: No Reported Reaction Additional Past Anesthesia/Blood Transfusion Reaction / Comment(s): CLAUSTROPHOBIA Past Psychological History: Anxiety, Depression Smoking Status: Never smoker - Past Family History Father Family Medical History: Deep Vein Thrombosis (DVT), Pulmonary Embolus Additional Family Medical History / Comment(s): Father at age 32 from pulmonary embolism. Mother Family Medical History: Cancer Additional Family Medical History / Comment(s): breast Brother(s) Family Medical History: Cancer, CVA/TIA, Deep Vein Thrombosis (DVT), Myocardial Infarction ([place]), Pulmonary Embolus, Vascular Disorder Additional Family Medical History / Comment(s): 2 brothers that have passed one from myocardial infarction and one from pulmonary embolism. 2 brothers are alive and one has lung cancer, one brother is alive with a brain aneurysm and CVA. General Exam General appearance: alert, in no apparent distress, other (This is a well- developed, well-nourished adult female patient in no acute distress. Vital signs upon presentation are temperature 99.2F, pulse 81, respirations 20, blood pressure 115/59, pulse ox 91% on room air.) Eye exam: Present: normal appearance, PERRL, EOMI. Absent: scleral icterus, conjunctival injection, periorbital swelling ENT exam: Present: normal exam, normal oropharynx, mucous membranes moist Respiratory exam: Present: normal lung sounds bilaterally. Absent: respiratory distress, wheezes, rales, rhonchi, stridor Cardiovascular Exam: Present: regular rate, normal rhythm, normal heart sounds. Absent: systolic murmur, diastolic murmur, rubs, gallop, clicks GI/Abdominal exam: Present: soft, normal bowel sounds. Absent: distended, tenderness, guarding, rebound, rigid Extremities exam: Present: full ROM, normal capillary refill, other (Right hand cool to touch, skin pale, fingertips purple discoloration. Radial pulse is 2+.). Absent: normal inspection, tenderness, pedal edema, joint swelling, calf tenderness Neurological exam: Present: alert, oriented X3, CN II-XII intact Psychiatric exam: Present: normal affect, normal mood Skin exam: Present: warm, dry, intact, normal color. Absent: rash Course Vital Signs 03/28/21 03/28/21 03/28/21 20:04 20:12 22:49 Temperature 99.2 F 99.1 F Pulse Rate 81 63 131 H Respiratory 20 20 20 Rate Blood Pressure 115/59 116/55 90/56 O2 Sat by Pulse 91 L 92 L 96 Oximetry 03/29/21 00:25 Temperature 98.8 F Pulse Rate 130 H Respiratory 20 Rate Blood Pressure 102/62 O2 Sat by Pulse 99 Oximetry EKG Findings - EKG Comments: EKG Findings:: EKG obtained at 2200s a sinus tachycardia with a ventricular rate of 133, TX interval 136, QRS duration 82, QT to 96, QTc 440. Medical Decision Making - Medical Decision Making 81-year-old female patient presented to the emergency department today for evaluation of shortness of breath after choking on some milk. Physical examination revealed clear equal lung sounds. She does not appear to be in any respiratory distress. She did have evidence for pale cool right hand with discolored fingertips. Chest x-ray was negative. Labs reviewed and are relatively unremarkable. She did develop tachycardia and hypotension all here. She is given a fluid bolus. Patient remained tachycardic despite fluid bolus and Tylenol administration so we did give a dose of Lopressor. Blood pressure did diminish slightly but she had no symptoms. She'll be admitted to the hospital for further evaluation by cardiology. We will consult vascular for evaluation of the right hand as she did have a stent placed in the right s ubclavian. She also being treated outpatient for UTI. There is some concern for aspiration pneumonia so we will start antibiotics she does have multiple ALLERGIES we did start Levaquin and Flagyl. She is agreeable with this plan. Case discussed with my attending Dr. Le. - Lab Data Result diagrams: 03/28/21 20:48 03/28/21 20:48 Lab Results 03/28/21 03/28/21 03/28/21 Range/Units 20:48 20:48 20:48 WBC 8.9 (3.8-10.6) k/uL RBC 3.46 L (3.80-5.40) m/uL Hgb 10.6 L D (11.4-16.0) gm/dL Hct 32.1 L (34.0-46.0) % MCV 92.6 (80.0-100.0) fL MCH 30.5 (25.0-35.0) pg MCHC 32.9 (31.0-37.0) g/dL RDW 15.8 H (11.5-15.5) % Plt Count 107 L D (150-450) k/uL MPV 7.2 Neutrophils % (Manual) 56 % Band Neuts % (Manual) 28 % Lymphocytes % (Manual) 1 % Monocytes % (Manual) 10 % Metamyelocytes % 5 % Neutrophils # (Manual) 7.40 (1.3-7.7) k/uL Lymphocytes # (Manual) 0.09 L (1.0-4.8) k/uL Monocytes # (Manual) 0.89 (0-1.0) k/uL Metamyelocytes # (Man) 0.45 H (0) k/uL Nucleated RBCs 0 (0-0) /100 WBC Manual Slide Review Performed Poikilocytosis (manual Present Anisocytosis (manual) Present Ovalocytes Present PT 9.5 (9.0-12.0) sec INR 0.9 (<1.2) APTT 22.0 (22.0-30.0) sec Sodium 136 L (137-145) mmol/L Potassium 4.7 (3.5-5.1) mmol/L Chloride 108 H (98-107) mmol/L Carbon Dioxide 24 (22-30) mmol/L Anion Gap 4 mmol/L BUN 31 H (7-17) mg/dL Creatinine 0.85 (0.52-1.04) mg/dL Est GFR (CKD-EPI)AfAm 76 (>60 ml/min/1.73 sqM) Est GFR (CKD-EPI)NonAf 66 (>60 ml/min/1.73 sqM) Glucose 230 H (74-99) mg/dL Plasma Lactic Acid Luis (0.7-2.0) mmol/L Calcium 8.8 (8.4-10.2) mg/dL Magnesium 1.9 (1.6-2.3) mg/dL Total Bilirubin 0.2 (0.2-1.3) mg/dL AST 23 (14-36) U/L ALT 23 (4-34) U/L Alkaline Phosphatase 58 (38-126) U/L Troponin I (0.000-0.034) ng/mL Total Protein 4.9 L (6.3-8.2) g/dL Albumin 2.8 L (3.5-5.0) g/dL TSH (0.465-4.680) mIU/L 03/28/21 03/28/21 03/28/21 Range/Units 20:48 20:48 20:48 WBC (3.8-10.6) k/uL RBC (3.80-5.40) m/uL Hgb (11.4-16.0) gm/dL Hct (34.0-46.0) % MCV (80.0-100.0) fL MCH (25.0-35.0) pg MCHC (31.0-37.0) g/dL RDW (11.5-15.5) % Plt Count (150-450) k/uL MPV Neutrophils % (Manual) % Band Neuts % (Manual) % Lymphocytes % (Manual) % Monocytes % (Manual) % Metamyelocytes % % Neutrophils # (Manual) (1.3-7.7) k/uL Lymphocytes # (Manual) (1.0-4.8) k/uL Monocytes # (Manual) (0-1.0) k/uL Metamyelocytes # (Man) (0) k/uL Nucleated RBCs (0-0) /100 WBC Manual Slide Review Poikilocytosis (manual Anisocytosis (manual) Ovalocytes PT (9.0-12.0) sec INR (<1.2) APTT (22.0-30.0) sec Sodium (137-145) mmol/L Potassium (3.5-5.1) mmol/L Chloride (98-107) mmol/L Carbon Dioxide (22-30) mmol/L Anion Gap mmol/L BUN (7-17) mg/dL Creatinine (0.52-1.04) mg/dL Est GFR (CKD-EPI)AfAm (>60 ml/min/1.73 sqM) Est GFR (CKD-EPI)NonAf (>60 ml/min/1.73 sqM) Glucose (74-99) mg/dL Plasma Lactic Acid Luis 2.0 (0.7-2.0) mmol/L Calcium (8.4-10.2) mg/dL Magnesium (1.6-2.3) mg/dL Total Bilirubin (0.2-1.3) mg/dL AST (14-36) U/L ALT (4-34) U/L Alkaline Phosphatase (38-126) U/L Troponin I <0.012 (0.000-0.034) ng/mL Total Protein (6.3-8.2) g/dL Albumin (3.5-5.0) g/dL TSH 1.680 (0.465-4.680) mIU/L - Radiology Data Radiology results: report reviewed, image reviewed Two-view x-ray of the chest is obtained. Report was reviewed in its entirety. Impression by Dr. Enrique shows no active cardiopulmonary disease. Normal heart. No change. Disposition Clinical Impression: Tachycardia, UTI (urinary tract infection), Shortness of breath Disposition: ADMITTED IP TO THIS HOSP Condition: Serious Decision to Admit Reason: Admit from EC Decision Date: 03/29/21 Decision Time: 00:02
[2021-03-28 22:37] LABS: HCT 32.1 % (34.0-46.0); MCH 30.5 pg (25.0-35.0); MCHC 32.9 g/dL (31.0-37.0); MCV 92.6 fL (80.0-100.0); Mean Platelet Volume 7.2; RBC 3.46 m/uL (3.80-5.40); RDW 15.8 % (11.5-15.5); WBC 8.9 k/uL (3.8-10.6)
[2021-03-28 22:42] LABS: HGB 10.6 gm/dL (11.4-16.0); Platelet Count 107 k/uL (150-450)
[2021-03-28 22:45] LABS: Albumin 2.8 g/dL (3.5-5.0); Calcium 8.8 mg/dL (8.4-10.2); Magnesium 1.9 mg/dL (1.6-2.3); Potassium 4.7 mmol/L (3.5-5.1); Total Bilirubin 0.2 mg/dL (0.2-1.3); Total Protein 4.9 g/dL (6.3-8.2)
[2021-03-28 22:51] LABS: INR 0.9 (<1.2); Prothrombin Time 9.5 sec (9.0-12.0)
--- NOTE | 2021-03-28 22:52 | XR ---
EXAMINATION TYPE: XR chest 2V DATE OF EXAM: 03/28/2021 COMPARISON: 02/13/2021 HISTORY: Difficulty breathing TECHNIQUE: 2 views FINDINGS: Heart and mediastinum are normal. Lungs are clear. Costophrenic angles are clear. There are no hilar masses. Thoracic aorta is atheromatous. Bony thorax is intact. IMPRESSION: No active cardiopulmonary disease. Normal heart. No change.
[2021-03-28] MEDS ORDERED: ACETAMINOPHEN TAB 325 MG TAB PO STA (22:55)
[2021-03-28] MEDS ORDERED: SODIUM CHLORIDE 0.9% 500 ML 500 ML IV ONE (22:55)
[2021-03-28 22:58] LABS: Band Neutrophils % 28 %; Lymphocytes # (M) 0.09 k/uL (1.0-4.8); Metamyelocytes # (M) 0.45 k/uL (0); Metamyelocytes % 5 %; Monocytes # (M) 0.89 k/uL (0-1.0); Neutrophils % (M) 56 %; Nucleated Red Blood Cells 0 /100 WBC (0-0)
[2021-03-28 22:59] LABS: Total Cells Counted 200
[2021-03-28 23:00] LABS: Anisocytosis (M) Present; Ovalocytes Present; Poikilocytosis (M) Present
[2021-03-28] MEDS ORDERED: NALOXONE 0.4 MG/ML 1 ML VIAL IV PRN (23:49)
[2021-03-28] MEDS ORDERED: LEVOFLOXACIN 750MG-D5W PMX 750 MG in DEXTROSE/WATER 1 150ML.BAG IVPB STA (23:58)
[2021-03-28] MEDS ORDERED: metroNIDAZOLE-NS PMX 500 MG in SALINE 1 100ML.BAG IVPB STA (23:59)
[2021-03-29] MEDS: SODIUM CHLORIDE 0.9% 1,000 ML IV SCH ×3 (00:48→20:59)
[2021-03-29] MEDS ORDERED: METOPROLOL TARTRATE 5 MG/5 ML VIAL IVP STA (00:50)
[2021-03-29 01:48] LABS: Appearance,Urine Cloudy (Clear); Bacteria,Urine Rare /hpf; Bilirubin,Urine Negative (Negative); Blood,Urine Small (Negative); Color,Urine Light Yellow; Glucose,Urine (UA) 4+ (Negative); Ketones,Urine Negative (Negative); Leukocyte Esterase,Urine Large (Negative); Nitrite,Urine Negative (Negative); Protein,Urine Trace (Negative); RBC,Urine 4 /hpf (0-5); Squamous Epithelial Cell,Urine 4 /hpf (0-4); Urobilinogen,Urine <2.0 mg/dL (<2.0); WBC,Urine >182 /hpf (0-5)
[2021-03-29] MEDS ORDERED: SODIUM CHLORIDE 0.9% 500 ML 500 ML IV ONE (01:57)
--- NOTE | 2021-03-29 12:22 | P.CRDCN ---
History of Present Illness Consult date: 03/29/21 Chief complaint: Generalized weakness and fatigue History of present illness: This is a very pleasant 81-year-old female patient with requested to see in the emergency department for further cardiac evaluation. 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 She is somewhat poor historian and requested to see the patient in the emergency department because of tachycardia. The patient stated that she has been feeling weak. She checked her pulse at home and that was elevated and for that reason she decided to come to the emergency department. She is not experiencing any symptoms of chest pain or chest discomfort nor shortness of breath nor dizziness or lightheadedness and no feeling of heart racing. No fever and no chills. No cough or wheezing. No abdominal pain or abdominal discomfort. The patient was diagnosed with UTI and she was started on IV fluid and antibiotic. We consulted to see the patient mainly because of sinus tachycardia. The EKG wasn't she would and showed only sinus tachycardia without any significant ST or T-wave abnormalities. The first set of troponin came in to be unremarkable. The chest x-ray showed no acute abnormalities. She stated that she has been compliant with all of her medications including oral anticoagulation. The hemoglobin came in to be obtained 0.6. 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 History of Any Multi-Drug Resistant Organisms: None Reported Past Surgical History: Appendectomy, Back Surgery, Bladder Surgery, Breast Jacob marco antonio, Cholecystectomy, Hysterectomy, Joint Replacement, Orthopedic Surgery, Tonsillectomy Additional Past Surgical History / Comment(s): 12/2020 PTBA with stent R brachial/cephalic artery, cervical fusion, lumbar laminectomy, R hip repair, bilateral thumbs/rods, R 3rd toe nathaniel, bilateral total knee arthroplasties, pain clinic procedures, R femur biopsy, D&Cs, bladder suspension, EGD, colonoscopies, L breast biopsy/axilary bx, bilateral cataract removals. Past Anesthesia/Blood Transfusion Reactions: No Reported Reaction Additional Past Anesthesia/Blood Transfusion Reaction / Comment(s): CLAUSTROPHOBIA Past Psychological History: Anxiety, Depression Smoking Status: Never smoker - Past Family History Father Family Medical History: Deep Vein Thrombosis (DVT), Pulmonary Embolus Additional Family Medical History / Comment(s): Father at age 32 from pulmonary embolism. Mother Family Medical History: Cancer Additional Family Medical History / Comment(s): breast Brother(s) Family Medical History: Cancer, CVA/TIA, Deep Vein Thrombosis (DVT), Myocardial Infarction ([place]), Pulmonary Embolus, Vascular Disorder Additional Family Medical History / Comment(s): 2 brothers that have passed one from myocardial infarction and one from pulmonary embolism. 2 brothers are alive and one has lung cancer, one brother is alive with a brain aneurysm and CVA. Medications and Allergies Home Medications Medication Instructions Recorded Confirmed Type Calcium Carb-Vit D 500Mg-5Mcg 1 tab PO DAILY 01/05/14 03/29/21 History [Oscal 500+D 5 Mcg (200 Iu)] allopurinoL [Zyloprim] 100 mg PO DAILY 01/05/14 03/29/21 History Levothyroxine Sodium [Synthroid] 12.5 mcg PO HS 03/16/14 03/29/21 History Ipratropium [place] 0.06%Nasal 2 spr EA NOSTRIL BID 07/03/20 03/29/21 History [Atrovent Nasal 0.06%] Dexlansoprazole [Dexilant] 60 mg PO DAILY PRN 08/07/20 03/29/21 History Apixaban [Eliquis] 5 mg PO Q12H 10/06/20 03/29/21 History DULoxetine HCL [Cymbalta] 60 mg PO HS 12/17/20 03/29/21 History Estradiol Cream [Estrace Cream 1 gm VAGINAL SUTH@2100 12/17/20 03/29/21 History 0.01%] Atorvastatin [Lipitor] 40 mg PO HS 12/27/20 03/29/21 History Loperamide [Imodium] 2 mg PO TID PRN 12/30/20 03/29/21 History Psyllium Husk (with Sugar) 6 gm PO Q12H 02/13/21 03/29/21 History [Metamucil Powder] DULoxetine HCL [Cymbalta] 30 mg PO HS 02/28/21 03/29/21 History Baclofen [Lioresal] 10 mg PO TID PRN tab 03/03/21 03/29/21 Rx HYDROcodone/APAP 10-325MG [[place] 1 tab PO BID PRN #6 tab 03/03/21 03/29/21 Rx 10-325] Lisinopril [Zestril] 10 mg PO DAILY #30 tab 03/03/21 03/29/21 Rx Temazepam [Restoril] 15 mg PO HS #3 cap 03/04/21 03/29/21 Rx Acetaminophen Tab [Tylenol] 650 mg PO Q4H PRN 03/29/21 03/29/21 History Atenolol [Tenormin] 50 mg PO Q12H 03/29/21 03/29/21 History Clopidogrel [Plavix] 75 mg PO HS 03/29/21 03/29/21 History Empagliflozin/Metformin HCl 1 tab PO DAILY 03/29/21 03/29/21 History [Synjardy Xr 25-1,000 mg Tablet] Gabapentin 600 mg PO Q8H 03/29/21 03/29/21 History Glimepiride [Amaryl] 2 mg PO BID@0900,1700 03/29/21 03/29/21 History Insulin Lispro [humaLOG Kwikpen] See Protocol SQ ACHS 03/29/21 03/29/21 History Levofloxacin [Levaquin] 500 mg PO DAILY 03/29/21 03/29/21 History Linagliptin [Tradjenta] 5 mg PO DAILY 03/29/21 03/29/21 History rOPINIRole HCL [Requip] 4 mg PO HS 03/29/21 03/29/21 History Allergies Allergy/AdvReac Type Severity Reaction Status Date / Time adhesive Allergy red skin, Verified 02/28/21 06:55 blisters cefaclor [From Ceclor] Allergy Rash/Hives Verified 02/28/21 06:55 ciprofloxacin [From Cipro] Allergy Rash/Hives Verified 02/28/21 06:55 ciprofloxacin HCl Allergy Rash/Hives Verified 02/28/21 06:55 [From Cipro] hydromorphone HCl Allergy Anaphylaxis Verified 02/28/21 06:55 [From Dilaudid] Penicillins Allergy Rash/Hives Verified 02/28/21 06:55 clindamycin AdvReac Nausea & Verified 02/28/21 06:55 Vomiting sulfamethoxazole AdvReac Abdominal Verified 02/28/21 06:55 [From Bactrim] Pain trimethoprim [From Bactrim] AdvReac Abdominal Verified 02/28/21 06:55 Pain Physical Exam Vitals: Vital Signs Temp Pulse Resp BP Pulse Ox 03/29/21 12:14 97.8 F 110 H 18 112/66 98 03/29/21 09:19 108 H 16 131/77 100 03/29/21 07:32 114 H 18 139/79 98 03/29/21 06:46 105 H 20 96/60 100 03/29/21 02:24 118 H 20 93/66 98 03/29/21 00:25 98.8 F 130 H 20 102/62 99 03/28/21 22:49 99.1 F 131 H 20 90/56 96 03/28/21 20:12 63 20 116/55 92 L 03/28/21 20:04 99.2 F 81 20 115/59 91 L Intake and Output 03/28/21 03/29/21 03/29/21 22:59 06:59 14:59 Other: Weight 63.049 kg - Constitutional General appearance: no acute distress - Respiratory Respiratory: bilateral: CTA - Cardiovascular Rhythm: regular Heart sounds: normal: S1, S2 Results 03/28/21 20:48 03/28/21 20:48 Cardiac Enzymes 03/28/21 03/28/21 Range/Units 20:48 20:48 AST 23 (14-36) U/L Troponin I <0.012 (0.000-0.034) ng/mL Coagulation 03/28/21 Range/Units 20:48 PT 9.5 (9.0-12.0) sec APTT 22.0 (22.0-30.0) sec CBC 03/28/21 Range/Units 20:48 WBC 8.9 (3.8-10.6) k/uL RBC 3.46 L (3.80-5.40) m/uL Hgb 10.6 L D (11.4-16.0) gm/dL Hct 32.1 L (34.0-46.0) % Plt Count 107 L D (150-450) k/uL Comprehensive Metabolic Panel 03/28/21 Range/Units 20:48 Sodium 136 L (137-145) mmol/L Potassium 4.7 (3.5-5.1) mmol/L Chloride 108 H (98-107) mmol/L Carbon Dioxide 24 (22-30) mmol/L BUN 31 H (7-17) mg/dL Creatinine 0.85 (0.52-1.04) mg/dL Glucose 230 H (74-99) mg/dL Calcium 8.8 (8.4-10.2) mg/dL AST 23 (14-36) U/L ALT 23 (4-34) U/L Alkaline Phosphatase 58 (38-126) U/L Total Protein 4.9 L (6.3-8.2) g/dL Albumin 2.8 L (3.5-5.0) g/dL Current Medications Generic Name Dose Route Start Last Admin Trade Name Freq PRN Reason Stop Dose Admin Sodium Chloride 1,000 mls @ 130 mls/hr 03/28/21 23:45 03/29/21 00:48 Saline 0.9% IV 130 mls/hr .[id number] SANTOS Administration Levofloxacin 750 mg/ IV 150 mls @ 100 mls/hr 03/29/21 23:00 Solution IVPB Q24H SANTOS Naloxone HCl 0.2 mg 03/28/21 23:49 Naloxone 0.4 Mg/Ml 1 Ml Vial IV Q2M PRN Opioid Reversal Intake and Output 03/28/21 03/29/21 03/29/21 22:59 06:59 14:59 Other: Weight 63.049 kg 03/28/21 20:48 03/28/21 20:48 Assessment and Plan Assessment: Assessment #1 urinary tract infection #2 possible dehydration #3 sinus tachycardia #4 factor V Leiden deficiency #6 history of DVT/PE Plan #1 the tachycardia could be related to the infection and dehydration #2 rule out thyroid disease and will check the TSH and free T4 #3 rule out acute coronary event. We'll obtain serial cardiac enzymes #4 the most recent echo showed normal LV function #5 follow-up with the patient
[2021-03-29 13:55] LABS: T4, Free (Free Thyroxine) 0.74 ng/dL (0.78-2.19)
[2021-03-29] MEDS ORDERED: PANTOPRAZOLE 40 MG TABLET PO PRN (15:08)
[2021-03-29] MEDS ORDERED: ACETAMINOPHEN TAB 325 MG TAB PO PRN (15:08)
[2021-03-29] MEDS ORDERED: LOPERAMIDE 2 MG CAP PO PRN (15:08)
[2021-03-29] MEDS ORDERED: BACLOFEN 10 MG TAB PO PRN (15:08)
[2021-03-29] MEDS: GABAPENTIN 300 MG CAP PO SCH ×2 (15:54→23:54)
[2021-03-29] MEDS: HYDROcodone/APAP 10-325MG 1 EACH TAB PO PRN (15:54)
[2021-03-29] MEDS ORDERED: atenoloL 50 MG TAB PO SCH (16:00)
[2021-03-29] MEDS ORDERED: LEVOFLOXACIN 500 MG TAB PO SCH (16:00)
[2021-03-29 16:57] LABS: Glucose,Whole Blood 30 mg/dL (75-99)
[2021-03-29 17:00] LABS: Glucose,Whole Blood 32 mg/dL (75-99)
[2021-03-29] MEDS ORDERED: GLIMEPIRIDE 2 MG TAB PO SCH (17:00)
[2021-03-29] MEDS ORDERED: DEXTROSE 50% SYRINGE 50 ML IVP STA (17:00)
[2021-03-29 17:10] LABS: Glucose,Whole Blood 38 mg/dL (75-99)
[2021-03-29 17:19] LABS: Glucose,Whole Blood 117 mg/dL (75-99)
[2021-03-29 17:47] LABS: Glucose,Whole Blood 114 mg/dL (75-99)
--- NOTE | 2021-03-29 18:09 | P.HPIM ---
History of Present Illness H&P Date: 03/29/21 Chief Complaint: Hypoxemia, might have aspirated cough This is a 81-year-old female one of Dr. Rocha patient with past medical history of Factor V Leiden deficiency, type 2 diabetes, non-Hodgkin's lymphoma [place] [address] Monaco and follows with Dr. Aranda status post chemotherapy and radiation therapy, hypertension, hyperlipidemia, hypertension, hypothyroidism, restless leg syndrome, recurrent depression, and osteoarthritis who has been treated for lower back pain post multiple lower back surgery and epidural injection with pain management at [facility], previous admission for acute GI bleed and acute blood loss anemia status post EGD and colonoscopy which revealed antral gastritis, area of ulceration, nonbleeding, in the distal transverse colon, history of pulmonary embolism and left lower leg DVT diagnosed 03/08/2020 on eliqu, history of multiple strokes with bilateral hemisphere including 1 in 01/01/2021 after she had procedure for right brachiocephalic stenosis status post percutaneous transluminal angioplasty and stent placement developed stroke that affected the right side. Patient was hospitalized in January for CVA with worsening right-sided weakness and was also seen by Dr. Edward's in for right lower extremity weakness. Patient currently resides at [facility] in [facility] for rehabilitation, for which she is currently receiving Levaquin for acute urinary tract infection. She has recurrent UTI, for which she is on proper Premarin vaginal cream for it. It was also discussed that she needs to have a colonoscopy done on workup to evaluate for colovesical fistula, for which we have requested Dr. Hu for this evaluation. She was seen by Dr. Cho in the past, requiring an EGD she had modified barium swallow eval, in 08/13/2020, which is unremarkable. EGD in September 2020, H. pylori was negative, reactive gastropathy, with minimal in inactive inflammation no malignancy noted. While at [facility] in the [place], she was noted to have some coughing episodes, she feels like the food comes down and then bubbles back up, she was hypoxemic on room air, and was sent to the emergency room for evaluation O2 at 3 L nasal cannula States cannula, night satting 95-99%. She is chronically anticoagulated, with Christiansen and Plavix, with known right brachiocephalic stenosis that was performed 01/01/2021. Patient is noted to have purplish discoloration in the finger pads all 5 fingers right hand,, cold fingers on both hands, consult were made with Dr. Mortensen med review included current dose of atenolol 50 mg every 12 hours, and lisinopril 10 mg daily, could be some component of Raynaud's, we will adjust meds to discontinue with the above medication, and start Cardizem Review of Systems Constitutional: Reports as per HPI, Denies anorexia, Denies chills, Denies chronic headaches, Denies chronic pain, Denies daytime sleepiness, Denies fatigue, Denies fever, Denies lethargy, Denies malaise, Denies night sweats, Denies poor appetite, Denies sweats, Denies weakness, Denies weight gain, Denies weight loss Ears, nose, mouth and throat: Reports as per HPI Cardiovascular: Reports as per HPI Respiratory: Reports as per HPI, Denies congestion, Denies cough, Denies cough with sputum, Denies dyspnea, Denies excessive sputum, Denies hemoptysis, Denies home oxygen, Denies pain, Denies pain on inspiration, Denies pleurisy, Denies respiratory infections, Denies sleep apnea, Denies snoring, Denies wheezing Gastrointestinal: Reports as per HPI (Dysphagia) Genitourinary: Reports as per HPI Menstruation: Reports as per HPI Musculoskeletal: Reports as per HPI, Denies arm numbness/tingling, Denies atrophy, Denies fractures, Denies frequent falls, Denies gait dysfunction, Denies hot joints, Denies leg numbness/tingling, Denies limitation of motion, Denies loss of height, Denies low back pain, Denies morning stiffness, Denies muscle cramps, Denies muscle weakness, Denies myalgias, Denies neck pain, Denies neck stiffness, Denies prior amputations, Denies redness of joints, Denies shooting arm pain, Denies shooting leg pain Integumentary: Reports as per HPI Neurological: Reports as per HPI, Denies aphasia, Denies ataxia, Denies balance difficulties, Denies burning pain, Denies change in mentation, Denies change in smell/taste, Denies change in speech, Denies confusion, Denies convulsions, Denies double vision, Denies gait dysfunction, Denies head injury, Denies headaches, Denies hearing difficulties, Denies lack of coordination, Denies loss of vision, Denies memory loss, Denies migraines, Denies motor disturbance, Denies numbness, Denies paralysis, Denies paresthesias, Denies seizures, Denies sensory deficit, Denies spasticity, Denies syncope, Denies tic, Denies tingling, Denies transient paralysis, Denies tremors, Denies vertigo, Denies weakness, Denies visual changes Psychiatric: Reports as per HPI Endocrine: Reports as per HPI, Reports cold intolerance, Denies deepening of the voice, Denies excessive sweating, Denies excessive thirst, Denies fatigue, Denies flushing, Denies heat intolerance, Denies high blood sugars, Denies increase in ring/shoe/hat size, Denies low blood sugars, Denies nocturia, Denies palpitations, Denies polydipsia, Denies polyphagia, Denies polyuria, Denies proptosis, Denies recent glucocorticoid use, Denies thyroid mass, Denies weight change Hematologic/Lymphatic: Reports as per HPI Allergic/Immunologic: Reports as per HPI, Denies allergic rhinitis, Denies anaphylaxis, Denies angioedema, Denies gluten intolerance, Denies persistent infections, Denies seasonal allergies, Denies urticaria, Denies wheezing Past Medical History Past Medical History: Cancer, CVA/TIA, Diabetes Mellitus, Deep Vein Thrombosis (DVT), GERD/Reflux, GI Bleed, Hyperlipidemia, Hypertension, Osteoarthritis (OA), Pneumonia, Pulmonary Embolus (PE), Skin Disorder, Syncope, Thyroid Disorder, Vascular Disorder Additional Past Medical History / Comment(s): Brachial/cephalic artery PTBA/stent with post procedure CVAs with R sided weakness/R leg worse, TIAs, FALLS, DVT L leg with L PE, NIDDM type II, neuropathy R leg, R foot drop, nonhodgkins lymphoma with chemo/radiation of throat d/t cancerous mass that was removed, stomach ulcer, occasional dysphagia, hiatal hernia, constipation/diarrhea, lower GI bleed, chronic lumbar back pain/severe spondylosis/stenosis T12/L1, gout, infrequent migraines, hammer toes, RLS, bruises easily, hypothyroid. History of Any Multi-Drug Resistant Organisms: None Reported Past Surgical History: Appendectomy, Back Surgery, Bladder Surgery, Breast Surgery, Cholecystectomy, Hysterectomy, Joint Replacement, Orthopedic Surgery, Tonsillectomy Additional Past Surgical History / Comment(s): 12/2020 PTBA with stent R brachial/cephalic artery, cervical fusion, lumbar laminectomy, R hip repair, bilateral thumbs/rods, R 3rd toe nathaniel, bilateral total knee arthroplasties, pain clinic procedures, R femur biopsy, D&Cs, bladder suspension, EGD, colonoscopies, L breast biopsy/axilary bx, bilateral cataract removals. Past Anesthesia/Blood Transfusion Reactions: No Reported Reaction Additional Past Anesthesia/Blood Transfusion Reaction / Comment(s): CLAUSTROPHOBIA Past Psychological History: Anxiety, Depression Smoking Status: Never smoker - Past Family History Father Family Medical History: Deep Vein Thrombosis (DVT), Pulmonary Embolus Additional Family Medical History / Comment(s): Father at age 32 from pulmonary embolism. Mother Family Medical History: Cancer Additional Family Medical History / Comment(s): breast Brother(s) Family Medical History: Cancer, CVA/TIA, Deep Vein Thrombosis (DVT), Myocardial Infarction ([place]), Pulmonary Embolus, Vascular Disorder Additional Family Medical History / Comment(s): 2 brothers that have passed one from myocardial infarction and one from pulmonary embolism. 2 brothers are alive and one has lung cancer, one brother is alive with a brain aneurysm and CVA. Medications and Allergies Home Medications Medication Instructions Recorded Confirmed Type Calcium Carb-Vit D 500Mg-5Mcg 1 tab PO DAILY 01/05/14 03/29/21 History [Oscal 500+D 5 Mcg (200 Iu)] allopurinoL [Zyloprim] 100 mg PO DAILY 01/05/14 03/29/21 History Levothyroxine Sodium [Synthroid] 12.5 mcg PO HS 03/16/14 03/29/21 History Ipratropium [place] 0.06%Nasal 2 spr EA NOSTRIL BID 07/03/20 03/29/21 History [Atrovent Nasal 0.06%] Dexlansoprazole [Dexilant] 60 mg PO DAILY PRN 08/07/20 03/29/21 History Apixaban [Eliquis] 5 mg PO Q12H 10/06/20 03/29/21 History DULoxetine HCL [Cymbalta] 60 mg PO HS 12/17/20 03/29/21 History Estradiol Cream [Estrace Cream 1 gm VAGINAL SUTH@2100 12/17/20 03/29/21 History 0.01%] Atorvastatin [Lipitor] 40 mg PO HS 12/27/20 03/29/21 History Loperamide [Imodium] 2 mg PO TID PRN 12/30/20 03/29/21 History Psyllium Husk (with Sugar) 6 gm PO Q12H 02/13/21 03/29/21 History [Metamucil Powder] DULoxetine HCL [Cymbalta] 30 mg PO HS 02/28/21 03/29/21 History Baclofen [Lioresal] 10 mg PO TID PRN tab 03/03/21 03/29/21 Rx HYDROcodone/APAP 10-325MG [[place] 1 tab PO BID PRN #6 tab 03/03/21 03/29/21 Rx 10-325] Lisinopril [Zestril] 10 mg PO DAILY #30 tab 03/03/21 03/29/21 Rx Temazepam [Restoril] 15 mg PO HS #3 cap 03/04/21 03/29/21 Rx Acetaminophen Tab [Tylenol] 650 mg PO Q4H PRN 03/29/21 03/29/21 History Atenolol [Tenormin] 50 mg PO Q12H 03/29/21 03/29/21 History Clopidogrel [Plavix] 75 mg PO HS 03/29/21 03/29/21 History Empagliflozin/Metformin HCl 1 tab PO DAILY 03/29/21 03/29/21 History [Synjardy Xr 25-1,000 mg Tablet] Gabapentin 600 mg PO Q8H 03/29/21 03/29/21 History Glimepiride [Amaryl] 2 mg PO BID@0900,1700 03/29/21 03/29/21 History Insulin Lispro [humaLOG Kwikpen] See Protocol SQ ACHS 03/29/21 03/29/21 History Levofloxacin [Levaquin] 500 mg PO DAILY 03/29/21 03/29/21 History Linagliptin [Tradjenta] 5 mg PO DAILY 03/29/21 03/29/21 History rOPINIRole HCL [Requip] 4 mg PO HS 03/29/21 03/29/21 History Allergies Allergy/AdvReac Type Severity Reaction Status Date / Time adhesive Allergy red skin, Verified 02/28/21 06:55 blisters cefaclor [From Ceclor] Allergy Rash/Hives Verified 02/28/21 06:55 ciprofloxacin [From Cipro] Allergy Rash/Hives Verified 02/28/21 06:55 ciprofloxacin HCl Allergy Rash/Hives Verified 02/28/21 06:55 [From Cipro] hydromorphone HCl Allergy Anaphylaxis Verified 02/28/21 06:55 [From Dilaudid] Penicillins Allergy Rash/Hives Verified 02/28/21 06:55 clindamycin AdvReac Nausea & Verified 02/28/21 06:55 Vomiting sulfamethoxazole AdvReac Abdominal Verified 02/28/21 06:55 [From Bactrim] Pain trimethoprim [From Bactrim] AdvReac Abdominal Verified 02/28/21 06:55 Pain Physical Exam Vitals: Vital Signs Temp Pulse Resp BP Pulse Ox 03/29/21 07:32 114 H 18 139/79 98 03/29/21 06:46 105 H 20 96/60 100 03/29/21 02:24 118 H 20 93/66 98 03/29/21 00:25 98.8 F 130 H 20 102/62 99 03/28/21 22:49 99.1 F 131 H 20 90/56 96 03/28/21 20:12 63 20 116/55 92 L 03/28/21 20:04 99.2 F 81 20 115/59 91 L Intake and Output 03/28/21 03/29/21 03/29/21 22:59 06:59 14:59 Other: Weight 63.049 kg - Constitutional General appearance: cooperative, no acute distress - EENT Eyes: edentulous, PERRLA, normal appearance ENT: NA/AT, normal oropharynx - Neck Neck: normal ROM - Respiratory Respiratory: bilateral: CTA, negative: diminished, dullness - Cardiovascular Rhythm: regular Heart sounds: normal: S1, S2 Abnormal Heart Sounds: no systolic murmur, no diastolic murmur, no rub, no S3 Gallop, no S4 Gallop, no click, no other - Gastrointestinal General gastrointestinal: normal bowel sounds, soft - Integumentary Integumentary: decreased turgor, normal - Neurologic Neurologic: CNII-XII intact - Musculoskeletal Musculoskeletal: gait normal, strength equal bilaterally - Psychiatric Psychiatric: A&O x's 3, appropriate affect, intact judgment & insight Results CBC & Chem 7: 03/28/21 20:48 03/28/21 20:48 Labs: Abnormal Lab Results - Last 24 Hours (Table) 03/28/21 03/28/21 03/29/21 Range/Units 20:48 20:48 01:35 RBC 3.46 L (3.80-5.40) m/uL Hgb 10.6 L D (11.4-16.0) gm/dL Hct 32.1 L (34.0-46.0) % RDW 15.8 H (11.5-15.5) % Plt Count 107 L D (150-450) k/uL Lymphocytes # (Manual) 0.09 L (1.0-4.8) k/uL Metamyelocytes # (Man) 0.45 H (0) k/uL Sodium 136 L (137-145) mmol/L Chloride 108 H (98-107) mmol/L BUN 31 H (7-17) mg/dL Glucose 230 H (74-99) mg/dL Total Protein 4.9 L (6.3-8.2) g/dL Albumin 2.8 L (3.5-5.0) g/dL Urine Appearance Cloudy H (Clear) Urine Protein Trace H (Negative) Urine Glucose (UA) 4+ H (Negative) Urine Blood Small H (Negative) Ur Leukocyte Esterase Large H (Negative) Urine WBC >182 H (0-5) /hpf Urine WBC Clumps Few H (None) /hpf Urine Bacteria Rare H (None) /hpf Laboratory Results WBC 8.9 k/uL (3.8-10.6) 03/28/21 20:48 RBC 3.46 m/uL (3.80-5.40) L 03/28/21 20:48 Hgb 10.6 gm/dL (11.4-16.0) L D 03/28/21 20:48 Hct 32.1 % (34.0-46.0) L 03/28/21 20:48 MCV 92.6 fL (80.0-100.0) 03/28/21 20:48 MCH 30.5 pg (25.0-35.0) 03/28/21 20:48 MCHC 32.9 g/dL (31.0-37.0) 03/28/21 20:48 RDW 15.8 % (11.5-15.5) H 03/28/21 20:48 Plt Count 107 k/uL (150-450) L D 03/28/21 20:48 MPV 7.2 03/28/21 20:48 Neutrophils % (Manual) 56 % 03/28/21 20:48 Band Neuts % (Manual) 28 % 03/28/21 20:48 Lymphocytes % (Manual) 1 % 03/28/21 20:48 Monocytes % (Manual) 10 % 03/28/21 20:48 Metamyelocytes % 5 % 03/28/21 20:48 Neutrophils # (Manual) 7.40 k/uL (1.3-7.7) 03/28/21 20:48 Lymphocytes # (Manual) 0.09 k/uL (1.0-4.8) L 03/28/21 20:48 Monocytes # (Manual) 0.89 k/uL (0-1.0) 03/28/21 20:48 Metamyelocytes # (Man) 0.45 k/uL (0) H 03/28/21 20:48 Nucleated RBCs 0 /100 WBC (0-0) 03/28/21 20:48 Manual Slide Review Performed 03/28/21 20:48 Poikilocytosis (manual Present 03/28/21 20:48 Anisocytosis (manual) Present 03/28/21 20:48 Ovalocytes Present 03/28/21 20:48 PT 9.5 sec (9.0-12.0) 03/28/21 20:48 INR 0.9 (<1.2) 03/28/21 20:48 APTT 22.0 sec (22.0-30.0) 03/28/21 20:48 Sodium 136 mmol/L (137-145) L 03/28/21 20:48 Potassium 4.7 mmol/L (3.5-5.1) 03/28/21 20:48 Chloride 108 mmol/L (98-107) H 03/28/21 20:48 Carbon Dioxide 24 mmol/L (22-30) 03/28/21 20:48 Anion Gap 4 mmol/L 03/28/21 20:48 BUN 31 mg/dL (7-17) H 03/28/21 20:48 Creatinine 0.85 mg/dL (0.52-1.04) 03/28/21 20:48 Est GFR (CKD-EPI)AfAm 76 (>60 ml/min/1.73 sqM) 03/28/21 20:48 Est GFR (CKD-EPI)NonAf 66 (>60 ml/min/1.73 sqM) 03/28/21 20:48 Glucose 230 mg/dL (74-99) H 03/28/21 20:48 POC Glucose (mg/dL) 114 mg/dL (75-99) H 03/29/21 17:46 POC Glu Storage Architect ID Prerna Murphy 03/29/21 17:46 Plasma Lactic Acid Luis 2.0 mmol/L (0.7-2.0) 03/28/21 20:48 Calcium 8.8 mg/dL (8.4-10.2) 03/28/21 20:48 Magnesium 1.9 mg/dL (1.6-2.3) 03/28/21 20:48 Total Bilirubin 0.2 mg/dL (0.2-1.3) 03/28/21 20:48 AST 23 U/L (14-36) 03/28/21 20:48 ALT 23 U/L (4-34) 03/28/21 20:48 Alkaline Phosphatase 58 U/L (38-126) 03/28/21 20:48 Troponin I <0.012 ng/mL (0.000-0.034) 03/29/21 13:11 Total Protein 4.9 g/dL (6.3-8.2) L 03/28/21 20:48 Albumin 2.8 g/dL (3.5-5.0) L 03/28/21 20:48 TSH 1.510 mIU/L (0.465-4.680) 03/29/21 13:11 Free T4 0.74 ng/dL (0.78-2.19) L 03/29/21 13:11 Urine Color Light Yellow 03/29/21 01:35 Urine Appearance Cloudy (Clear) H 03/29/21 01:35 Urine pH 6.0 (5.0-8.0) 03/29/21 01:35 Ur Specific [place] 1.020 (1.001-1.035) 03/29/21 01:35 Urine Protein Trace (Negative) H 03/29/21 01:35 Urine Glucose (UA) 4+ (Negative) H 03/29/21 01:35 Urine Ketones Negative (Negative) 03/29/21 01:35 Urine Blood Small (Negative) H 03/29/21 01:35 Urine Nitrite Negative (Negative) 03/29/21 01:35 Urine Bilirubin Negative (Negative) 03/29/21 01:35 Urine Urobilinogen <2.0 mg/dL (<2.0) 03/29/21 01:35 Ur Leukocyte Esterase Large (Negative) H 03/29/21 01:35 Urine RBC 4 /hpf (0-5) 03/29/21 01:35 Urine WBC >182 /hpf (0-5) H 03/29/21 01:35 Urine WBC Clumps Few /hpf (None) H 03/29/21 01:35 Ur Squamous Epith Cells 4 /hpf (0-4) 03/29/21 01:35 Urine Bacteria Rare /hpf (None) H 03/29/21 01:35 Assessment and Plan Plan: 1. Dysphagia with hypoxemia, unknown history of esophageal cancer, EGD July 2020 unremarkable, modified barium swallow eval, September 2020 unremarkable, check for esophagogram to evaluate for presbyesophagus, 2. Acute hypoxemia, possibly related to cyanosis and purpose discoloration of the finger, suspect Raynaud's, patient's on O2 3 L at rest,, check CT without contrast high solution, to evaluate for chemical pneumonitis with aspiration pneumonitis, patient is anticoagulated with Ahlquist, will not do CT PE protocol at this time. 3. Peripheral some cyanosis involving the right hand more than the left hand, with known history of right brachiocephalic stenosis, status post stent placement in September [address] Fink stopped atenolol as it could worsen claudication, stop lisinopril, and start Cardizem 30 mg 3 times a day. 4. 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 Morales, patient was recommended to have colonoscopy, consult with Dr. Flores. 5. History of pulmonary embolism. Continue Eliquis 5 mg twice daily. Lifelong 6. Diabetes mellitus type 2. With hypoglycemia while in the hospital, disc ontinue the glimeperide Trijardy, NovoLog scale before meals and at bedtime. 7. Non-Hodgkin's [place] [address] Monaco and follows with Dr. Aranda, in remission. 8. T12-L1 severe spondylosis, severe canal stenosis and impending conus syndrome s/p revision T12-L2 fusion and decompression with chronic back pain. Continue gabapentin 600 mg 3 times daily. 9. Hypertension. Continue atenolol 50 mg twice a day. 10. Hypothyroidism. Continue levothyroxine 12.5 g daily. 11. 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 Fink 12. Recurrent depression. Continue Cymbalta 90 mg daily. 13. Chronic gout. Continue allopurinol 100 mg daily. 14. Hyperlipidemia. Continue atorvastatin 40 mg at bedtime. 15. Restless leg syndrome. Continue Requip. 16. GERD and GI prophylaxis. Protonix [facility]
[2021-03-29 18:43] LABS: Glucose,Whole Blood 121 mg/dL (75-99)
[2021-03-29] MEDS: INSULIN ASPART (NovoLOG) 100 UNIT/ML VIAL SQ SCH ×2 (19:11→21:11)
[2021-03-29] MEDS: APIXABAN 5 MG TAB PO SCH (20:03)
[2021-03-29] MEDS: ATORVASTATIN 40 MG TAB PO SCH (20:03)
[2021-03-29] MEDS: CLOPIDOGREL 75 MG TAB PO SCH (20:04)
[2021-03-29] MEDS: DULoxetine HCL 30 MG CAPSULE.DR PO SCH (20:10)
[2021-03-29] MEDS: LEVOFLOXACIN 500 MG TAB PO SCH (20:11)
[2021-03-29] MEDS: rOPINIRole HCL 4 MG TABLET PO SCH (20:12)
[2021-03-29] MEDS: LEVOTHYROXINE 25 MCG TAB PO SCH (20:12)
[2021-03-29] MEDS: PSYLLIUM HUSK 100% 6 GM PACKET PO SCH (20:12)
[2021-03-29] MEDS ORDERED: DULoxetine HCL 60 MG CAPSULE.DR PO SCH (21:00)
[2021-03-29] MEDS: TEMAZEPAM 15 MG CAP PO SCH (21:05)
[2021-03-29 21:08] LABS: Glucose,Whole Blood 185 mg/dL (75-99)
[2021-03-29] MEDS ORDERED: LEVOFLOXACIN 750MG-D5W PMX 750 MG in DEXTROSE/WATER 1 150ML.BAG IVPB SCH (23:00)
[2021-03-30] MEDS: HYDROcodone/APAP 10-325MG 1 EACH TAB PO PRN ×2 (04:53→20:57)
[2021-03-30] MEDS: SODIUM CHLORIDE 0.9% 1,000 ML IV SCH ×4 (04:56→23:50)
[2021-03-30] MEDS: DILTIAZEM ORAL 30 MG TAB PO SCH ×4 (04:56→21:01)
[2021-03-30 06:24] LABS: Glucose,Whole Blood 104 mg/dL (75-99)
--- NOTE | 2021-03-30 06:55 | P.PN ---
Subjective Progress Note Date: 03/30/21 Principal diagnosis: Sinus tachycardia The patient was seen this morning. She stated that she is feeling better in terms of generalized weakness but she mild chest discomfort. I did perform an EKG on her and that showed sinus rhythm without any significant ST or T-wave abnormalities. She continues to be slightly tachycardic with a resting heart rate in the 80s as well as in the 90s. She was diagnosed with UTI. I'm going to obtain a d-dimer to rule out pulmonary embolism which is unlikely because she was on oral anticoagulation. The troponin came in to be unremarkable. Objective - Vital Signs Vital signs: Vital Signs Temp 97.8 F 03/30/21 04:00 Pulse 101 H 03/30/21 04:00 Resp 18 03/30/21 04:00 BP 77/44 03/30/21 04:00 Pulse Ox 98 03/30/21 04:00 Intake & Output 03/29/21 03/29/21 03/30/21 06:59 18:59 06:59 Output Total 500 Balance -500 Weight 63.049 kg 67.8 kg Output: Urine 500 Other: Voiding Method Bedside Commode Diaper # Voids 1 - Constitutional General appearance: Present: no acute distress - Respiratory Respiratory: bilateral: CTA - Cardiovascular Rhythm: regular - Labs CBC & Chem 7: 03/28/21 20:48 03/28/21 20:48 Labs: Abnormal Lab Results - Last 24 Hours (Table) 03/29/21 03/29/21 03/29/21 Range/Units 13:11 16:55 16:58 POC Glucose (mg/dL) 30 L 32 L (75-99) mg/dL Free T4 0.74 L (0.78-2.19) ng/dL 03/29/21 03/29/21 03/29/21 Range/Units 17:07 17:17 17:46 POC Glucose (mg/dL) 38 L 117 H 114 H (75-99) mg/dL Free T4 (0.78-2.19) ng/dL 03/29/21 03/29/21 03/30/21 Range/Units 18:41 21:07 06:11 POC Glucose (mg/dL) 121 H 185 H 104 H (75-99) mg/dL Free T4 (0.78-2.19) ng/dL Microbiology - Last 24 Hours (Table) 03/29/21 01:35 Urine Culture - Preliminary Urine,Voided Assessment and Plan Assessment: Assessment #1 urinary tract infection #2 possible dehydration #3 sinus tachycardia #4 factor V Leiden deficiency #6 history of DVT/PE Plan #1 the tachycardia could be related to the infection and dehydration #2 acute coronary syndrome was ruled out #3 rule out pulmonary embolism #4 follow-up with the patient
[2021-03-30] MEDS: INSULIN ASPART (NovoLOG) 100 UNIT/ML VIAL SQ SCH ×4 (07:54→20:57)
[2021-03-30] MEDS: APIXABAN 5 MG TAB PO SCH ×2 (08:42→20:56)
[2021-03-30] MEDS: LINAGLIPTIN 5 MG TABLET PO SCH (08:42)
[2021-03-30] MEDS: CALCIUM CARB-VIT D 500 MG-5 MCG TAB PO SCH (08:42)
[2021-03-30] MEDS: allopurinoL 100 MG TAB PO SCH (08:42)
[2021-03-30] MEDS: GABAPENTIN 300 MG CAP PO SCH ×3 (08:42→23:54)
[2021-03-30] MEDS: PSYLLIUM HUSK 100% 6 GM PACKET PO SCH ×2 (08:43→21:03)
[2021-03-30] MEDS ORDERED: lisinopriL 10 MG TAB PO SCH (09:00)
[2021-03-30 11:52] LABS: Glucose,Whole Blood 134 mg/dL (75-99)
[2021-03-30] MEDS: IPRATROPIUM BROMIDE 0.06% NASAL SPRAY (15 ML) EA NOSTRIL SCH ×2 (12:54→22:03)
--- NOTE | 2021-03-30 14:38 | P.GSCN ---
History of Present Illness Consult date: 03/30/21 History of present illness: This pleasant 81-year-old female with multiple medical problems history of esophageal cancer and history of lymphoma. She presented the emergency department with sinus tach and suspicion for UTI she was seeing Dr. 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 Patient does have history diverticulitis. She states that when she passes urine she does sometimes have gas in her urine and she is unsure whether she passes stool. Urine or not. She is having some lower abdominal pain. She denies ever having radiation in her p shahab. She denies any pelvic surgery other than a hysterectomy in the past. 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 History of Any Multi-Drug Resistant Organisms: None Reported Past Surgical History: Appendectomy, Back Surgery, Bladder Surgery, Breast Surgery, Cholecystectomy, Hysterectomy, Joint Replacement, Orthopedic Surgery, Tonsillectomy Additional Past Surgical History / Comment(s): 12/2020 PTBA with stent R brachial/cephalic artery, cervical fusion, lumbar laminectomy, R hip repair, bilateral thumbs/rods, R 3rd toe nathaniel, bilateral total knee arthroplasties, pain clinic procedures, R femur biopsy, D&Cs, bladder suspension, EGD, colonoscopies, L breast biopsy/axilary bx, bilateral cataract removals. Past Anesthesia/Blood Transfusion Reactions: No Reported Reaction Additional Past Anesthesia/Blood Transfusion Reaction / Comm: CLAUSTROPHOBIA Past Psychological History: Anxiety, Depression Additional Psychological History / Comment(s): Pt resides with her aminah, Luciana. She uses a walker to ambulate. She no longer drives, family can take her to appts. Luciana assists pt with medications, pt is fairly independent. Smoking Status: Never smoker Past Alcohol Use History: None Reported Additional Past Alcohol Use History / Comment(s): . Past Drug Use History: None Reported - Past Family History Father Family Medical History: Deep Vein Thrombosis (DVT), Pulmonary Embolus Additional Family Medical History / Comment(s): Father at age 32 from pulmonary embolism. Mother Family Medical History: Cancer Additional Family Medical History / Comment(s): breast Brother(s) Family Medical History: Cancer, CVA/TIA, Deep Vein Thrombosis (DVT), Myocardial Infarction (NH), Pulmonary Embolus, Vascular Disorder Additional Family Medical History / Comment(s): 2 brothers that have passed one from myocardial infarction and one from pulmonary embolism. 2 brothers are alive and one has lung cancer, one brother is alive with a brain aneurysm and CVA. Medications and Allergies Home Medications Medication Instructions Recorded Confirmed Type Calcium Carb-Vit D 500Mg-5Mcg 1 tab PO DAILY 01/05/14 03/29/21 History [Oscal 500+D 5 Mcg (200 Iu)] allopurinoL [Zyloprim] 100 mg PO DAILY 01/05/14 03/29/21 History Levothyroxine Sodium [Synthroid] 12.5 mcg PO HS 03/16/14 03/29/21 History Ipratropium [place] 0.06%Nasal 2 spr EA NOSTRIL BID 07/03/20 03/29/21 History [Atrovent Nasal 0.06%] Dexlansoprazole [Dexilant] 60 mg PO DAILY PRN 08/07/20 03/29/21 History Apixaban [Eliquis] 5 mg PO Q12H 10/06/20 03/29/21 History DULoxetine HCL [Cymbalta] 60 mg PO HS 12/17/20 03/29/21 History Estradiol Cream [Estrace Cream 1 gm VAGINAL SUTH@2100 12/17/20 03/29/21 History 0.01%] Atorvastatin [Lipitor] 40 mg PO HS 12/27/20 03/29/21 History Loperamide [Imodium] 2 mg PO TID PRN 12/30/20 03/29/21 History Psyllium Husk (with Sugar) 6 gm PO Q12H 02/13/21 03/29/21 History [Metamucil Powder] DULoxetine HCL [Cymbalta] 30 mg PO HS 02/28/21 03/29/21 History Baclofen [Lioresal] 10 mg PO TID PRN tab 03/03/21 03/29/21 Rx HYDROcodone/APAP 10-325MG [Robinson 1 tab PO BID PRN #6 tab 03/03/21 03/29/21 Rx 10-325] Lisinopril [Zestril] 10 mg PO DAILY #30 tab 03/03/21 03/29/21 Rx Temazepam [Restoril] 15 mg PO HS #3 cap 03/04/21 03/29/21 Rx Acetaminophen Tab [Tylenol] 650 mg PO Q4H PRN 03/29/21 03/29/21 History Atenolol [Tenormin] 50 mg PO Q12H 03/29/21 03/29/21 History Clopidogrel [Plavix] 75 mg PO HS 03/29/21 03/29/21 History Empagliflozin/Metformin HCl 1 tab PO DAILY 03/29/21 03/29/21 History [Synjardy Xr 25-1,000 mg Tablet] Gabapentin 600 mg PO Q8H 03/29/21 03/29/21 History Glimepiride [Amaryl] 2 mg PO BID@0900,1700 03/29/21 03/29/21 History Insulin Lispro [humaLOG Kwikpen] See Protocol SQ ACHS 03/29/21 03/29/21 History Levofloxacin [Levaquin] 500 mg PO DAILY 03/29/21 03/29/21 History Linagliptin [Tradjenta] 5 mg PO DAILY 03/29/21 03/29/21 History rOPINIRole HCL [Requip] 4 mg PO HS 03/29/21 03/29/21 History Allergies Allergy/AdvReac Type Severity Reaction Status Date / Time adhesive Allergy red skin, Verified 02/28/21 06:55 blisters cefaclor [From Ceclor] Allergy Rash/Hives Verified 02/28/21 06:55 ciprofloxacin [From Cipro] Allergy Rash/Hives Verified 02/28/21 06:55 ciprofloxacin HCl Allergy Rash/Hives Verified 02/28/21 06:55 [From Cipro] hydromorphone HCl Allergy Anaphylaxis Verified 02/28/21 06:55 [From Dilaudid] Penicillins Allergy Rash/Hives Verified 02/28/21 06:55 clindamycin AdvReac Nausea & Verified 02/28/21 06:55 Vomiting sulfamethoxazole AdvReac Abdominal Verified 02/28/21 06:55 [From Bactrim] Pain trimethoprim [From Bactrim] AdvReac Abdominal Verified 02/28/21 06:55 Pain Surgical - Exam Osteopathic Statement: *. No significant issues noted on an osteopathic structural exam other than those noted in the History and Physical/Consult. Vital Signs Temp Pulse Resp BP Pulse Ox 99.2 F 81 20 115/59 91 L 03/28/21 20:04 03/28/21 20:04 03/28/21 20:04 03/28/21 20:04 03/28/21 20:04 - General well developed, well nourished - Respiratory normal expansion, normal respiratory effort - Cardiovascular Rhythm: regular - Abdomen Soft nondistended and nontender Results - Labs 03/28/21 20:48 03/28/21 20:48 Abnormal Lab Results - Last 24 Hours (Table) 03/29/21 03/29/21 03/29/21 Range/Units 16:55 16:58 17:07 D-Dimer (<0.60) mg/L FEU POC Glucose (mg/dL) 30 L 32 L 38 L (75-99) mg/dL 03/29/21 03/29/21 03/29/21 Range/Units 17:17 17:46 18:41 D-Dimer (<0.60) mg/L FEU POC Glucose (mg/dL) 117 H 114 H 121 H (75-99) mg/dL 03/29/21 03/30/21 03/30/21 Range/Units 21:07 06:11 07:01 D-Dimer 0.89 H (<0.60) mg/L FEU POC Glucose (mg/dL) 185 H 104 H (75-99) mg/dL 03/30/21 Range/Units 11:50 D-Dimer (<0.60) mg/L FEU POC Glucose (mg/dL) 134 H (75-99) mg/dL Assessment and Plan Assessment: 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 No plans for acute surgical intervention patient is stable at this time. She was planning for further workup with Dr. Flores and can follow-up with her.
[2021-03-30] MEDS ORDERED: FUROSEMIDE 10 MG/ML 4 ML VIAL IV STA (15:38)
[2021-03-30] MEDS ORDERED: MIDODRINE 5 MG TAB PO STA (15:39)
--- NOTE | 2021-03-30 15:44 | P.PN ---
Subjective Progress Note Date: 03/30/21 Chief Complaint: Hypoxemia, might have aspirated cough This is a 81-year-old female one of Dr. Rocha patient with past medical history of Factor V Leiden deficiency, type 2 diabetes, non-Hodgkin's lymphoma [place] [address] Monaco and follows with Dr. Aranda status post chemotherapy and radiation therapy, hypertension, hyperlipidemia, hypertension, hypothyroidism, restless leg syndrome, recurrent depression, and osteoarthritis who has been treated for lower back pain post multiple lower back surgery and epidural injection with pain management at [facility], previous admission for acute GI bleed and acute blood loss anemia status post EGD and colonoscopy which revealed antral gastritis, area of ulceration, nonbleeding, in the distal transverse colon, history of pulmonary embolism and left lower leg DVT diagnosed 03/08/2020 on eliquis, history of multiple strokes with bilateral hemisphere including 1 in 01/01/2021 after she had procedure for right brachiocephalic stenosis status post percutaneous transluminal angioplasty and stent placement developed stroke that affected the right side. Patient was hospitalized in January for CVA with worsening right-sided weakness and was also seen by Dr. Edward's in for right lower extremity weakness. Patient currently resides [facility], for which she is currently receiving Levaquin for acute urinary tract infection. She has recurrent UTI, for which she is on proper Premarin vaginal cream for it. It was also discussed that she needs to have a colonoscopy done on workup to evaluate for colovesical fistula, for which we have requested Dr. Hu for this evaluation. She was seen by Dr. Cho in the past, requiring an EGD she had modified barium swallow eval, in 08/13/2020, which is unremarkable. EGD in September 2020, H. pylori was negative, reactive gastropathy, with minimal in inactive inflammation no malignancy noted. While at [facility], she was noted to have some coughing episodes, she feels like the food comes down and then bubbles back up, she was hypoxemic on room air, and was sent to the emergency room for evaluation O2 at 3 L nasal cannula States cannula, night satting 95-99%. She is chronically anticoagulated, with Christiansen and Plavix, with known right brachiocephalic stenosis that was performed 01/01/2021. Patient is noted to have purplish discoloration in the finger pads all 5 fingers right hand,, cold fingers on both hands, consult were made with Dr. Mortensen med review included current dose of atenolol 50 mg every 12 hours, and lisinopril 10 mg daily, could be some component of Raynaud's, we will adjust meds to discontinue with the above medication, and start Cardizem 03/30: Patient is doing much better on the fingers, less purplish discoloration, and no cyanosis in the left, no cold hands on the left, the right hand seems to be pale, with lesst purplish discoloration on the finger pads. Patient has a sore in the bottom, she has a stage I nonblanching changes in the sacrum, position changes were advised, he should also shortness of breath and wheezing, for which we have given extra dose of Lasix, her blood pressure is in the low 90s today, however she is receiving IV fluids at 130 mL an hour. This is requested to be Hep-Lock, Lasix 40 mg 1 dose, and start midodrine 10 mg 3 times a day. Heart rate is in the high 90s, the highest is 106 today, no changes made with Cardizem. Cardiology is also following,. Review of Systems Constitutional: Reports as per HPI, Denies anorexia, Denies chills, Denies chronic headaches, Denies chronic pain, Denies daytime sleepiness, Denies fatigue, Denies fever, Denies lethargy, Denies malaise, Denies night sweats, Denies poor appetite, Denies sweats, Denies weakness, Denies weight gain, Denies weight loss Ears, nose, mouth and throat: Reports as per HPI Cardiovascular: Reports as per HPI Respiratory: Reports as per HPI, Denies congestion, Denies cough, Denies cough with sputum, Denies dyspnea, Denies excessive sputum, Denies hemoptysis, Denies home oxygen, Denies pain, Denies pain on inspiration, Denies pleurisy, Denies respiratory infections, Denies sleep apnea, Denies snoring, Denies wheezing Gastrointestinal: Reports as per HPI (Dysphagia) Genitourinary: Reports as per HPI Menstruation: Reports as per HPI Musculoskeletal: Reports as per HPI, Denies arm numbness/tingling, Denies atrophy, Denies fractures, Denies frequent falls, Denies gait dysfunction, Denies hot joints, Denies leg numbness/tingling, Denies limitation of motion, Denies loss of height, Denies low back pain, Denies morning stiffness, Denies muscle cramps, Denies muscle weakness, Denies myalgias, Denies neck pain, Denies neck stiffness, Denies prior amputations, Denies redness of joints, Denies shooting arm pain, Denies shooting leg pain Integumentary: Reports as per HPI Neurological: Reports as per HPI, Denies aphasia, Denies ataxia, Denies balance difficulties, Denies burning pain, Denies change in mentation, Denies change in smell/taste, Denies change in speech, Denies confusion, Denies convulsions, Denies double vision, Denies gait dysfunction, Denies head injury, Denies headaches, Denies hearing difficulties, Denies lack of coordination, Denies loss of vision, Denies memory loss, Denies migraines, Denies motor disturbance, Denies numbness, Denies paralysis, Denies paresthesias, Denies seizures, Denies sensory deficit, Denies spasticity, Denies syncope, Denies tic, Denies tingling, Denies transient paralysis, Denies tremors, Denies vertigo, Denies weakness, Denies visual changes Psychiatric: Reports as per HPI Endocrine: Reports as per HPI, Reports cold intolerance, Denies deepening of the voice, Denies excessive sweating, Denies excessive thirst, Denies fatigue, Denies flushing, Denies heat intolerance, Denies high blood sugars, Denies increase in ring/shoe/hat size, Denies low blood sugars, Denies nocturia, Denies palpitations, Denies polydipsia, Denies polyphagia, Denies polyuria, Denies proptosis, Denies recent glucocorticoid use, Denies thyroid mass, Denies weight change Hematologic/Lymphatic: Reports as per HPI Allergic/Immunologic: Reports as per HPI, Denies allergic rhinitis, Denies an aphylaxis, Denies angioedema, Denies gluten intolerance, Denies persistent infections, Denies seasonal allergies, Denies urticaria, Denies wheezing Objective - Vital Signs Vital signs: Vital Signs Temp 98.0 F 03/30/21 13:01 Pulse 87 03/30/21 13:01 Resp 15 03/30/21 13:01 BP 94/53 03/30/21 13:01 Pulse Ox 94 L 03/30/21 13:01 Intake & Output 03/29/21 03/30/21 03/30/21 18:59 06:59 18:59 Intake Total 360 Output Total 500 1200 Balance -500 -840 Weight 67.8 kg Intake: Oral 360 Output: Urine 500 1200 Other: Voiding Method Bedside Commode Diaper # Voids 1 - Constitutional General appearance: Present: cooperative, no acute distress - EENT Eyes: Present: anicteric sclerae, PERRLA, normal appearance ENT: Present: NA/AT, normal oropharynx - Neck Neck: Present: normal ROM - Respiratory Respiratory: bilateral: CTA, negative: diminished, dullness, rales - Cardiovascular Rhythm: regular Heart sounds: normal: S1, S2 Abnormal Heart Sounds: Absent: systolic murmur, diastolic murmur, rub, S3 Gallop, S4 Gallop, click, other - Gastrointestinal General gastrointestinal: Present: normal bowel sounds, soft - Integumentary Integumentary Comment(s): Pressure, non-blanching redness, sacrum, no open wounds Integumentary: Present: decreased turgor, normal - Neurologic Neurologic: Present: CNII-XII intact - Musculoskeletal Musculoskeletal: Present: gait normal, strength equal bilaterally - Psychiatric Psychiatric: Present: A&O x's 3, appropriate affect - Labs CBC & Chem 7: 03/28/21 20:48 03/28/21 20:48 Labs: Abnormal Lab Results - Last 24 Hours (Table) 03/29/21 03/29/21 03/29/21 Range/Units 16:55 16:58 17:07 D-Dimer (<0.60) mg/L FEU POC Glucose (mg/dL) 30 L 32 L 38 L (75-99) mg/dL 03/29/21 03/29/21 03/29/21 Range/Units 17:17 17:46 18:41 D-Dimer (<0.60) mg/L FEU POC Glucose (mg/dL) 117 H 114 H 121 H (75-99) mg/dL 03/29/21 03/30/21 03/30/21 Range/Units 21:07 06:11 07:01 D-Dimer 0.89 H (<0.60) mg/L FEU POC Glucose (mg/dL) 185 H 104 H (75-99) mg/dL 03/30/21 Range/Units 11:50 D-Dimer (<0.60) mg/L FEU POC Glucose (mg/dL) 134 H (75-99) mg/dL Microbiology - Last 24 Hours (Table) 03/29/21 01:35 Urine Culture - Final Urine,Voided Assessment and Plan Plan: 1. Dysphagia with hypoxemia, unknown history of esophageal cancer, EGD July 2020 unremarkable, modified barium swallow eval, September 2020 unremarkable, check for esophagogram to evaluate for presbyesophagus, 2. Acute hypoxemia, possibly related to cyanosis and purpose discoloration of the finger, suspect Raynaud's, patient's on O2 3 L at rest,, check CT without contrast high solution, to evaluate for chemical pneumonitis with aspiration pneumonitis, patient is anticoagulated with Ahlquist, will not do CT PE protocol at this time. 3. Peripheral some cyanosis involving the right hand more than the left hand, with known history of right brachiocephalic stenosis, status post stent placement in September [address] Fink stopped atenolol as it could worsen claudication, stop lisinopril, and start Cardizem 30 mg 3 times a day. 4. 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 Morales, patient was recommended to have colonoscopy, consult with Dr. Flores. 5. History of pulmonary embolism. Continue Eliquis 5 mg twice daily. Lifelong 6. Diabetes mellitus type 2. With hypoglycemia while in the hospital, discontinue the glimeperide Trijardy, NovoLog scale before meals and at bedtime . 7. Non-Hodgkin's lymphoma [place] [address] Monaco and follows with Dr. Aranda, in remission. 8. T12-L1 severe spondylosis, severe canal stenosis and impending conus syndrome s/p revision T12-L2 fusion and decompression with chronic back pain. Continue gabapentin 600 mg 3 times daily. 9. Hypertension. Continue atenolol 50 mg twice a day. 10. Hypothyroidism. Continue levothyroxine 12.5 g daily. 11. 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 Fink 12. Recurrent depression. Continue Cymbalta 90 mg daily. 13. Chronic gout. Continue allopurinol 100 mg daily. 14. Hyperlipidemia. Continue atorvastatin 40 mg at bedtime. 15. Restless leg syndrome. Continue Requip. 16. GERD and GI prophylaxis. Protonix Return to [facility] with rehabilitation subacute
[2021-03-30 16:45] LABS: Glucose,Whole Blood 117 mg/dL (75-99)
[2021-03-30] MEDS: MIDODRINE 5 MG TAB PO SCH (17:14)
[2021-03-30 20:37] LABS: Glucose,Whole Blood 162 mg/dL (75-99)
[2021-03-30] MEDS: CLOPIDOGREL 75 MG TAB PO SCH (20:55)
[2021-03-30] MEDS: TEMAZEPAM 15 MG CAP PO SCH (20:56)
[2021-03-30] MEDS: ATORVASTATIN 40 MG TAB PO SCH (20:56)
[2021-03-30] MEDS: LEVOFLOXACIN 500 MG TAB PO SCH (20:56)
[2021-03-30] MEDS: LEVOTHYROXINE 25 MCG TAB PO SCH (20:56)
[2021-03-30] MEDS: rOPINIRole HCL 4 MG TABLET PO SCH (20:57)
[2021-03-30] MEDS: DULoxetine HCL 30 MG CAPSULE.DR PO SCH (21:01)
[2021-03-31] MEDS: SODIUM CHLORIDE 0.9% 1,000 ML IV SCH ×3 (05:12→21:10)
[2021-03-31 06:36] LABS: Glucose,Whole Blood 163 mg/dL (75-99)
[2021-03-31] MEDS: MIDODRINE 5 MG TAB PO SCH ×3 (06:38→17:42)
[2021-03-31] MEDS: INSULIN ASPART (NovoLOG) 100 UNIT/ML VIAL SQ SCH ×4 (06:38→20:47)
--- NOTE | 2021-03-31 07:41 | XR ---
EXAMINATION TYPE: XR chest 2V DATE OF EXAM: 03/31/2021 COMPARISON: 03/28/2021 INDICATION: Cough and wheeze TECHNIQUE: Frontal and lateral views of the chest are obtained. FINDINGS: The heart size is normal. The pulmonary vasculature is normal. The lungs are clear. IMPRESSION: 1. No acute pulmonary process.
[2021-03-31 07:51] LABS: African American GFR (CKD) >90 (>60 ml/min/1.73 sqM); Anion Gap 7 mmol/L; Blood Urea Nitrogen 18 mg/dL (7-17); Calcium 8.7 mg/dL (8.4-10.2); Carbon Dioxide 24 mmol/L (22-30); Chloride 106 mmol/L (98-107); Glucose 162 mg/dL (74-99); Non-African American GFR(CKD) >90 (>60 ml/min/1.73 sqM); Potassium 3.3 mmol/L (3.5-5.1); Sodium 137 mmol/L (137-145)
[2021-03-31 08:04] LABS: HCT 30.5 % (34.0-46.0); HGB 9.8 gm/dL (11.4-16.0); MCH 29.5 pg (25.0-35.0); MCHC 32.1 g/dL (31.0-37.0); MCV 91.9 fL (80.0-100.0); Mean Platelet Volume 7.4; Platelet Count 124 k/uL (150-450); RBC 3.32 m/uL (3.80-5.40); RDW 15.5 % (11.5-15.5); WBC 5.2 k/uL (3.8-10.6)
[2021-03-31] MEDS ORDERED: Potassium Replacement Protocol 1 EACH MISC MISCELLANE PRN (08:10)
--- NOTE | 2021-03-31 09:10 | P.PN ---
Subjective Progress Note Date: 03/31/21 Principal diagnosis: Sinus tachycardia The patient was seen at this morning. She stated that she is feeling better overall. Her weakness has improved. She denies any symptoms of chest pain or chest discomfort. She continues to be slightly tachycardic with a resting heart rate around 100 beats per minutes. The troponin was checked and came in to be unremarkable. On examination she does have a harsh systolic murmur at she underwent an echocardiogram recently and that showed normal LV function was only mild aortic stenosis. D-dimer was checked and came in to be slightly elevated. She is on oral anticoagulation. Objective - Vital Signs Vital signs: Vital Signs Temp 97.9 F 03/31/21 04:00 Pulse 112 H 03/31/21 04:00 Resp 16 03/31/21 04:00 BP 107/60 03/31/21 04:00 Pulse Ox 97 03/31/21 04:00 Intake & Output 03/30/21 03/31/21 03/31/21 18:59 06:59 18:59 Intake Total 600 240 Output Total 3000 1200 Balance -2400 -1200 240 Weight 66.2 kg Intake: Oral 600 240 Output: Urine 3000 1200 Other: Voiding Method Bedside Commode # Voids 3 - Constitutional General appearance: Present: no acute distress - Respiratory Respiratory: bilateral: CTA - Cardiovascular Rhythm: regular Heart sounds: normal: S1, S2 Abnormal Heart Sounds: Present: systolic murmur - Labs CBC & Chem 7: 03/31/21 07:01 03/31/21 07:01 Labs: Abnormal Lab Results - Last 24 Hours (Table) 03/30/21 03/30/21 03/30/21 Range/Units 11:50 16:43 20:25 RBC (3.80-5.40) m/uL Hgb (11.4-16.0) gm/dL Hct (34.0-46.0) % Plt Count (150-450) k/uL Potassium (3.5-5.1) mmol/L BUN (7-17) mg/dL Glucose (74-99) mg/dL POC Glucose (mg/dL) 134 H 117 H 162 H (75-99) mg/dL 03/31/21 03/31/21 03/31/21 Range/Units 06:22 07:01 07:01 RBC 3.32 L (3.80-5.40) m/uL Hgb 9.8 L (11.4-16.0) gm/dL Hct 30.5 L (34.0-46.0) % Plt Count 124 L (150-450) k/uL Potassium 3.3 L (3.5-5.1) mmol/L BUN 18 H (7-17) mg/dL Glucose 162 H (74-99) mg/dL POC Glucose (mg/dL) 163 H (75-99) mg/dL Microbiology - Last 24 Hours (Table) 03/29/21 01:35 Urine Culture - Final Urine,Voided Assessment and Plan Assessment: Assessment #1 urinary tract infection #2 possible dehydration #3 sinus tachycardia #4 factor V Leiden deficiency #6 history of DVT/PE Plan #1 continue the current medical regimen #2 follow-up with the patient
[2021-03-31] MEDS: allopurinoL 100 MG TAB PO SCH (09:36)
[2021-03-31] MEDS: CALCIUM CARB-VIT D 500 MG-5 MCG TAB PO SCH (09:36)
[2021-03-31] MEDS: GABAPENTIN 300 MG CAP PO SCH ×3 (09:36→22:59)
[2021-03-31] MEDS: APIXABAN 5 MG TAB PO SCH ×2 (09:36→20:47)
[2021-03-31] MEDS: POTASSIUM CHLORIDE ER 20 MEQ TAB.ER PO SCH ×2 (09:36→11:56)
[2021-03-31] MEDS: LINAGLIPTIN 5 MG TABLET PO SCH (09:36)
[2021-03-31] MEDS: PSYLLIUM HUSK 100% 6 GM PACKET PO SCH ×2 (09:37→20:47)
[2021-03-31] MEDS: IPRATROPIUM BROMIDE 0.06% NASAL SPRAY (15 ML) EA NOSTRIL SCH ×2 (09:37→20:48)
[2021-03-31] MEDS: DILTIAZEM ORAL 30 MG TAB PO SCH (09:37)
[2021-03-31 10:39] LABS: Band Neutrophils % 1 %; Lymphocytes # (M) 0.57 k/uL (1.0-4.8); Metamyelocytes # (M) 0.31 k/uL (0); Metamyelocytes % 6 %; Monocytes # (M) 0.88 k/uL (0-1.0); Myelocytes # (M) 0.21 k/uL (0); Myelocytes % 4 %; Neutrophils % (M) 62 %; Nucleated Red Blood Cells 0 /100 WBC (0-0); Total Cells Counted 200
[2021-03-31 11:03] VITALS: RESP 18
--- NOTE | 2021-03-31 11:11 | P.PN ---
Progress Note - Text Progress Note Date: 03/29/[address] Avelar. Patient not having hand or digital pain. Has full range of motion, palpable radial pulses. Some discoloration. Pulmonary is her main issue at this time. Will check upper extremity arterial doppler for completeness. At this time no surgical intervention required.
[2021-03-31 11:51] LABS: Glucose,Whole Blood 252 mg/dL (75-99)
[2021-03-31] MEDS: HYDROcodone/APAP 10-325MG 1 EACH TAB PO PRN ×2 (11:56→22:57)
--- NOTE | 2021-03-31 15:13 | P.PN ---
Subjective Progress Note Date: 03/31/21 No acute changes overnight no abdominal pain Objective - Vital Signs Vital signs: Vital Signs Temp 98.1 F 03/31/21 08:00 Pulse 112 H 03/31/21 08:00 Resp 18 03/31/21 08:00 BP 107/68 03/31/21 08:00 Pulse Ox 97 03/31/21 08:00 Intake & Output 03/30/21 03/31/21 03/31/21 18:59 06:59 18:59 Intake Total 600 480 Output Total 3000 1200 200 Balance -2400 -1200 280 Weight 66.2 kg Intake: Oral 600 480 Output: Urine 3000 1200 200 Other: Voiding Method Bedside Commode Toilet # Voids 3 - Constitutional General appearance: Present: cooperative - Respiratory Details: Nonlabored - Cardiovascular Rhythm: regular - Gastrointestinal Gastrointestinal Comment(s): S/NT/ND - Labs CBC & Chem 7: 03/31/21 07:01 03/31/21 07:01 Labs: Abnormal Lab Results - Last 24 Hours (Table) 03/30/21 03/30/21 03/31/21 Range/Units 16:43 20:25 06:22 RBC (3.80-5.40) m/uL Hgb (11.4-16.0) gm/dL Hct (34.0-46.0) % Plt Count (150-450) k/uL Lymphocytes # (Manual) (1.0-4.8) k/uL Metamyelocytes # (Man) (0) k/uL Myelocytes # (Manual) (0) k/uL Potassium (3.5-5.1) mmol/L BUN (7-17) mg/dL Glucose (74-99) mg/dL POC Glucose (mg/dL) 117 H 162 H 163 H (75-99) mg/dL 03/31/21 03/31/21 03/31/21 Range/Units 07:01 07:01 11:49 RBC 3.32 L (3.80-5.40) m/uL Hgb 9.8 L (11.4-16.0) gm/dL Hct 30.5 L (34.0-46.0) % Plt Count 124 L (150-450) k/uL Lymphocytes # (Manual) 0.57 L (1.0-4.8) k/uL Metamyelocytes # (Man) 0.31 H (0) k/uL Myelocytes # (Manual) 0.21 H (0) k/uL Potassium 3.3 L (3.5-5.1) mmol/L BUN 18 H (7-17) mg/dL Glucose 162 H (74-99) mg/dL POC Glucose (mg/dL) 252 H (75-99) mg/dL Microbiology - Last 24 Hours (Table) 03/29/21 01:35 Urine Culture - Final Urine,Voided Assessment and Plan Assessment: 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 No plans for acute surgical intervention patient is stable at this time. She was planning for further workup with Dr. Flores and can follow-up with her.
--- NOTE | 2021-03-31 15:59 | P.PN ---
Subjective Progress Note Date: 03/31/21 Chief Complaint: Hypoxemia, might have aspirated cough This is a 81-year-old female one of Dr. Rocha patient with past medical history of Factor V Leiden deficiency, type 2 diabetes, non-Hodgkin's lymphoma [place] [address] Monaco and follows with Dr. Aranda status post chemotherapy and radiation therapy, hypertension, hyperlipidemia, hypertension, hypothyroidism, restless leg syndrome, recurrent depression, and osteoarthritis who has been treated for lower back pain post multiple lower back surgery and epidural injection with pain management at [facility], previous admission for acute GI bleed and acute blood loss anemia status post EGD and colonoscopy which revealed antral gastritis, area of ulceration, nonbleeding, in the distal transverse colon, history of pulmonary embolism and left lower leg DVT diagnosed 03/08/2020 on eliquis, history of multiple strokes with bilateral hemisphere including 1 in 01/01/2021 after she had procedure for right brachiocephalic stenosis status post percutaneous transluminal angioplasty and stent placement developed stroke that affected the right side. Patient was hospitalized in January for CVA with worsening right-sided weakness and was also seen by Dr. Edward's in for right lower extremity weakness. Patient currently resides at [facility] in [facility] for rehabilitation, for which she is currently receiving Levaquin for acute urinary tract infection. She has recurrent UTI, for which she is on proper Premarin vaginal cream for it. It was also discussed that she needs to have a colonoscopy done on workup to evaluate for colovesical fistula, for which we have requested Dr. Hu for this evaluation. She was seen by Dr. Cho in the past, requiring an EGD she had modified barium swallow eval, in 08/13/2020, which is unremarkable. EGD in September 2020, H. pylori was negative, reactive gastropathy, with minimal in inactive inflammation no malignancy noted. While at [facility] in [facility], she was noted to have some coughing episodes, she feels like the food comes down and then bubbles back up, she was hypoxemic on room air, and was sent to the emergency room for evaluation O2 at 3 L nasal cannula States cannula, night satting 95-99%. She is chronically anticoagulated, with Christiansen and Plavix, with known right brachiocephalic stenosis that was performed 01/01/2021. Patient is noted to have purplish discoloration in the finger pads all 5 fingers right hand,, cold fingers on both hands, consult were made with Dr. Mortensen med review included current dose of atenolol 50 mg every 12 hours, and lisinopril 10 mg daily, could be some component of Raynaud's, we will adjust meds to discontinue with the above medication, and start Cardizem 03/30: Patient is doing much better on the fingers, less purplish discoloration, and no cyanosis in the left, no cold hands on the left, the right hand seems to be pale, with lesst purplish discoloration on the finger pads. Patient has a sore in the bottom, she has a stage I nonblanching changes in the sacrum, position changes were advised, he should also shortness of breath and wheezing, for which we have given extra dose of Lasix, her blood pressure is in the low 90s today, however she is receiving IV fluids at 130 mL an hour. This is requested to be Hep-Lock, Lasix 40 mg 1 dose, and start midodrine 10 mg 3 times a day. Heart rate is in the high 90s, the highest is 106 today, no changes made with Cardizem. Cardiology is also following, : Patient's doing much better, the peripheral cyanosis of the distal finger pads are now resolved, patient remains to be Cardizem 30 mg 3 times a day, blood pressure in the 120s today, we'll going to increase Cardizem to 60 mg 3 times a day, still tachycardic 110s patient is off beta yaya this time. Pending arterial Doppler and upper extremities, by vascular. We discussed with him a imaging for colovesical fistula would be try fluoroscopy cystogram, this is ordered. General surgery as an outpatient, for colonoscopy. Current urine culture, growing contaminated skin chan, however previous culture, is significant, we'll going to finish Levaquin as scheduled for UTI Review of Systems Constitutional: Reports as per HPI, Denies anorexia, Denies chills, Denies chronic headaches, Denies chronic pain, Denies daytime sleepiness, Denies fatigue, Denies fever, Denies lethargy, Denies malaise, Denies night sweats, Denies poor appetite, Denies sweats, Denies weakness, Denies weight gain, Denies weight loss Ears, nose, mouth and throat: Reports as per HPI Cardiovascular: Reports as per HPI Respiratory: Reports as per HPI, Denies congestion, Denies cough, Denies cough with sputum, Denies dyspnea, Denies excessive sputum, Denies hemoptysis, Denies home oxygen, Denies pain, Denies pain on inspiration, Denies pleurisy, Denies respiratory infections, Denies sleep apnea, Denies snoring, Denies wheezing Gastrointestinal: Reports as per HPI (Dysphagia) Genitourinary: Reports as per HPI Menstruation: Reports as per HPI Musculoskeletal: Reports as per HPI, Denies arm numbness/tingling, Denies atrophy, Denies fractures, Denies frequent falls, Denies gait dysfunction, Denies hot joints, Denies leg numbness/tingling, Denies limitation of motion, Denies loss of height, Denies low back pain, Denies morning stiffness, Denies muscle cramps, Denies muscle weakness, Denies myalgias, Denies neck pain, Denies neck stiffness, Denies prior amputations, Denies redness of joints, Denies shooting arm pain, Denies shooting leg pain Integumentary: Reports as per HPI Neurological: Reports as per HPI, Denies aphasia, Denies ataxia, Denies balance difficulties, Denies burning pain, Denies change in mentation, Denies change in smell/taste, Denies change in speech, Denies confusion, Denies convulsions, Denies double vision, Denies gait dysfunction, Denies head injury, Denies headaches, Denies hearing difficulties, Denies lack of coordination, Denies loss of vision, Denies memory loss, Denies migraines, Denies motor disturbance, Den ies numbness, Denies paralysis, Denies paresthesias, Denies seizures, Denies sensory deficit, Denies spasticity, Denies syncope, Denies tic, Denies tingling, Denies transient paralysis, Denies tremors, Denies vertigo, Denies weakness, Denies visual changes Psychiatric: Reports as per HPI Endocrine: Reports as per HPI, Reports cold intolerance, Denies deepening of the voice, Denies excessive sweating, Denies excessive thirst, Denies fatigue, Denie s flushing, Denies heat intolerance, Denies high blood sugars, Denies increase in ring/shoe/hat size, Denies low blood sugars, Denies nocturia, Denies palpitations, Denies polydipsia, Denies polyphagia, Denies polyuria, Denies proptosis, Denies recent glucocorticoid use, Denies thyroid mass, Denies weight change Hematologic/Lymphatic: Reports as per HPI Allergic/Immunologic: Reports as per HPI, Denies allergic rhinitis, Denies anaphylaxis, Denies angioedema, Denies gluten intolerance, Denies persistent infections, Denies seasonal allergies, Denies urticaria, Denies wheezing Objective - Vital Signs Vital signs: Vital Signs Temp 98.1 F 03/31/21 08:00 Pulse 112 H 03/31/21 14:00 Resp 18 03/31/21 14:00 BP 128/78 03/31/21 12:00 Pulse Ox 95 03/31/21 12:00 Intake & Output 03/30/21 03/31/21 03/31/21 18:59 06:59 18:59 Intake Total 600 480 Output Total 3000 1200 200 Balance -2400 -1200 280 Weight 66.2 kg Intake: Oral 600 480 Output: Urine 3000 1200 200 Other: Voiding Method Bedside Commode Toilet # Voids 3 1 - Constitutional General appearance: Present: cooperative, no acute distress - EENT Eyes: Present: EOMI, dentition normal - Neck Neck: Present: lymphadenopathy - Respiratory Respiratory: bilateral: CTA, negative: diminished, dullness, rales - Cardiovascular Rhythm: regular Heart sounds: normal: S1, S2 Abnormal Heart Sounds: Absent: systolic murmur, diastolic murmur, rub, S3 Gallop, S4 Gallop, click, other - Gastrointestinal General gastrointestinal: Present: normal bowel sounds, soft - Integumentary Integumentary: Present: decreased turgor, normal - Neurologic Neurologic: Present: CNII-XII intact - Musculoskeletal Musculoskeletal: Present: gait normal, strength equal bilaterally - Psychiatric Psychiatric: Present: A&O x's 3, appropriate affect - Labs CBC & Chem 7: 03/31/21 07:01 03/31/21 07:01 Labs: Abnormal Lab Results - Last 24 Hours (Table) 03/30/21 03/30/21 03/31/21 Range/Units 16:43 20:25 06:22 RBC (3.80-5.40) m/uL Hgb (11.4-16.0) gm/dL Hct (34.0-46.0) % Plt Count (150-450) k/uL Lymphocytes # (Manual) (1.0-4.8) k/uL Metamyelocytes # (Man) (0) k/uL Myelocytes # (Manual) (0) k/uL Potassium (3.5-5.1) mmol/L BUN (7-17) mg/dL Glucose (74-99) mg/dL POC Glucose (mg/dL) 117 H 162 H 163 H (75-99) mg/dL 03/31/21 03/31/21 03/31/21 Range/Units 07:01 07:01 11:49 RBC 3.32 L (3.80-5.40) m/uL Hgb 9.8 L (11.4-16.0) gm/dL Hct 30.5 L (34.0-46.0) % Plt Count 124 L (150-450) k/uL Lymphocytes # (Manual) 0.57 L (1.0-4.8) k/uL Metamyelocytes # (Man) 0.31 H (0) k/uL Myelocytes # (Manual) 0.21 H (0) k/uL Potassium 3.3 L (3.5-5.1) mmol/L BUN 18 H (7-17) mg/dL Glucose 162 H (74-99) mg/dL POC Glucose (mg/dL) 252 H (75-99) mg/dL Microbiology - Last 24 Hours (Table) 03/29/21 01:35 Urine Culture - Final Urine,Voided Assessment and Plan Plan: 1. Dysphagia with hypoxemia, unknown history of esophageal cancer, EGD July 2020 unremarkable, modified barium swallow eval, September 2020 unremarkable, check for esophagogram to evaluate for presbyesophagus, 2. Acute hypoxemia, possibly related to cyanosis and purpose discoloration of the finger, suspect Raynaud's, patient's on O2 3 L at rest,, check CT without contrast high solution, to evaluate for chemical pneumonitis with aspiration pneumonitis, patient is anticoagulated with Ahlquist, will not do CT PE protocol at this time. 3. Peripheral some cyanosis involving the right hand more than the left hand, with known history of right brachiocephalic stenosis, status post stent placement in September [address] Cuppari stopped atenolol as it could worsen claudication, stop lisinopril, and start Cardizem 30 mg 3 times a day. 4. 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 Morales, patient was recommended to have colonoscopy, consult with Dr. Flores. 5. History of pulmonary embolism. Continue Eliquis 5 mg twice daily. Lifelong 6. Diabetes mellitus type 2. With hypoglycemia while in the hospital, disc ontinue the glimeperide Trijardy, NovoLog scale before meals and at bedtime. 7. Non-Hodgkin's lymphoma [place] [address] Monaco and follows with Dr. Aranda, in remission. 8. T12-L1 severe spondylosis, severe canal stenosis and impending conus syndrome s/p revision T12-L2 fusion and decompression with chronic back pain. Continue gabapentin 600 mg 3 times daily. 9. Hypertension. Continue atenolol 50 mg twice a day. 10. Hypothyroidism. Continue levothyroxine 12.5 g daily. 11. 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 Fink 12. Recurrent depression. Continue Cymbalta 90 mg daily. 13. Chronic gout. Continue allopurinol 100 mg daily. 14. Hyperlipidemia. Continue atorvastatin 40 mg at bedtime. 15. Restless leg syndrome. Continue Requip. 16. GERD and GI prophylaxis. Protonix Return to [facility] with rehabilitation subacute
[2021-03-31 16:36] LABS: Glucose,Whole Blood 271 mg/dL (75-99)
[2021-03-31 20:30] LABS: Glucose,Whole Blood 243 mg/dL (75-99)
[2021-03-31] MEDS: DULoxetine HCL 30 MG CAPSULE.DR PO SCH (20:46)
[2021-03-31] MEDS: DILTIAZEM ORAL 60 MG TAB PO SCH (20:46)
[2021-03-31] MEDS: LEVOFLOXACIN 500 MG TAB PO SCH (20:46)
[2021-03-31] MEDS: LEVOTHYROXINE 25 MCG TAB PO SCH (20:47)
[2021-03-31] MEDS: rOPINIRole HCL 4 MG TABLET PO SCH (20:47)
[2021-03-31] MEDS: CLOPIDOGREL 75 MG TAB PO SCH (20:47)
[2021-03-31] MEDS: ATORVASTATIN 40 MG TAB PO SCH (20:47)
[2021-03-31] MEDS: TEMAZEPAM 15 MG CAP PO SCH (20:47)
[2021-04-01] MEDS: SODIUM CHLORIDE 0.9% 1,000 ML IV SCH (04:18)
[2021-04-01 06:13] LABS: Glucose,Whole Blood 146 mg/dL (75-99)
[2021-04-01] MEDS: INSULIN ASPART (NovoLOG) 100 UNIT/ML VIAL SQ SCH ×3 (06:33→17:01)
[2021-04-01 06:34] VITALS: TEMP 97.9
[2021-04-01] MEDS: MIDODRINE 5 MG TAB PO SCH ×3 (10:01→17:03)
[2021-04-01] MEDS: LINAGLIPTIN 5 MG TABLET PO SCH (10:01)
[2021-04-01] MEDS: APIXABAN 5 MG TAB PO SCH (10:01)
[2021-04-01] MEDS: DILTIAZEM ORAL 60 MG TAB PO SCH (10:01)
[2021-04-01] MEDS: GABAPENTIN 300 MG CAP PO SCH ×2 (10:01→17:01)
[2021-04-01] MEDS: CALCIUM CARB-VIT D 500 MG-5 MCG TAB PO SCH (10:01)
[2021-04-01] MEDS: allopurinoL 100 MG TAB PO SCH (10:02)
[2021-04-01 10:07] LABS: African American GFR (CKD) >90 (>60 ml/min/1.73 sqM); Anion Gap 7 mmol/L; Blood Urea Nitrogen 15 mg/dL (7-17); Calcium 8.9 mg/dL (8.4-10.2); Carbon Dioxide 25 mmol/L (22-30); Chloride 108 mmol/L (98-107); Glucose 141 mg/dL (74-99); Non-African American GFR(CKD) >90 (>60 ml/min/1.73 sqM); Potassium 3.6 mmol/L (3.5-5.1); Sodium 140 mmol/L (137-145)
--- NOTE | 2021-04-01 10:46 | P.PN ---
Subjective This is a pleasant 81-year-old female past medical history significant for chronic sinus tachycardia, diabetes mellitus, hypertension, DVT/PE maintained on Eliquis, factor V Leiden deficiency, non-Hodgkin's lymphoma and dyslipidemia. She also has a history of brachial cephalic stent placement with postprocedure CVA. She follows in the office with Dr. Pak. She is seen and examined resting comfortably sitting up in bed in no acute distress. She continues to complain of overall bilateral lower extremity weakness. She has no symptoms of chest discomfort or shortness of breath. Telemetry tracings reveal ongoing sinus tachycardia with a heart rate of 114. Blood pressure 99/69. Laboratory data reviewed, sodium 140, potassium 3.6, creatinine 0.51. Currently maintained on Eliquis 5 mg twice a day, atorvastatin 40 mg at bedtime, Plavix 75 mg daily, diltiazem 60 mg twice a day and midodrine 10 mg 3 times a day. GENERAL: Well-appearing, well-nourished and in no acute distress. NECK: Supple without JVD or thyromegaly. LUNGS: Breath sounds clear to auscultation bilaterally. Respiration equal and unlabored. No wheezes, rales or rhonchi. HEART: Regular rate and rhythm with systolic ejection murmur at the base, no rubs or gallops. S1 and S2 heard. EXTREMITIES: Normal range of motion, no edema. No clubbing or cyanosis. Peripheral pulses intact. ASSESSMENT Sinus tachycardia Urinary tract infection Diabetes mellitus Hypertension Dyslipidemia PLAN Clinically stable from a cardiac perspective on current medical regimen. Sinus tachycardia is chronic. She is asymptomatic in regards to this. Continue Cardizem as recommended per vascular surgery. Follow-up upon discharge with Dr. Pak, we will follow along as needed. Nurse Practitioner note has been reviewed, I agree with a documented findings and plan of care. Patient was seen and examined. Objective - Vital Signs Vital signs: Vital Signs Temp 97.9 F 04/01/21 04:00 Pulse 114 H 04/01/21 04:00 Resp 18 04/01/21 04:00 BP 99/69 04/01/21 04:00 Pulse Ox 97 04/01/21 04:00 Intake & Output 03/31/21 04/01/21 04/01/21 18:59 06:59 18:59 Intake Total 720 10 Output Total 400 Balance 320 10 Weight 66 kg Intake: IV 10 Invasive Line 3 10 Oral 720 Output: Urine 400 Other: Voiding Method Toilet Toilet Diaper # Voids 1 2 2 - Labs CBC & Chem 7: 03/31/21 07:01 04/01/21 09:29 Labs: Abnormal Lab Results - Last 24 Hours (Table) 03/31/21 03/31/21 03/31/21 Range/Units 11:49 16:35 20:08 Chloride (98-107) mmol/L Creatinine (0.52-1.04) mg/dL Glucose (74-99) mg/dL POC Glucose (mg/dL) 252 H 271 H 243 H (75-99) mg/dL 04/01/21 04/01/21 Range/Units 06:00 09:29 Chloride 108 H (98-107) mmol/L Creatinine 0.51 L (0.52-1.04) mg/dL Glucose 141 H (74-99) mg/dL POC Glucose (mg/dL) 146 H (75-99) mg/dL
--- NOTE | 2021-04-01 11:13 | P.DS ---
Providers Date of admission: 03/28/21 23:28 Expected date of discharge: 04/01/21 Attending physician: Veronica Avelar Consults: 03/28/21 23:49 Consult Physician Routine Consulting Provider: Venessa Mortensen Consult Reason/Comments: Right hand/fingers dicoloration; hx subclavian stent Do you want consulting provider notified?: Yes 03/28/21 23:54 Consult Physician Routine Consulting Provider: [facility] Consult Reason/Comments: Tachycardia Do you want consulting provider notified?: Yes 03/29/21 15:22 Consult Physician Routine Consulting Provider: Jessica Flores Consult Reason/Comments: colonoscopy for colovesicle fistula Do you want consulting provider notified?: Yes [facility] care [facility] Course: This is a 81-year-old female one of Dr. Rocha patient with past medical history of Factor V Leiden deficiency, type 2 diabetes, non-Hodgkin's lymphoma [place] [address] Monaco and follows with Dr. Aranda status post chemotherapy and radiation therapy, hypertension, hyperlipidemia, hypertension, hypothyroidism, restless leg syndrome, recurrent depression, and osteoarthritis who has been treated for lower back pain post multiple lower back surgery and epidural injection with pain management at [facility], previous admission for acute GI bleed and acute blood loss anemia status post EGD and colonoscopy which reve aled antral gastritis, area of ulceration, nonbleeding, in the distal transverse colon, history of pulmonary embolism and left lower leg DVT diagnosed 03/08/2020 on eliquis, history of multiple strokes with bilateral hemisphere including 1 in 01/01/2021 after she had procedure for right brachiocephalic stenosis status post percutaneous transluminal angioplasty and stent placement developed stroke that affected the right side. Patient was hospitalized in January for CVA with worsening right-sided weakness and was also seen by Dr. Edward's in for right lower extremity weakness. Patient currently resides at [facility] in [facility], for which she is currently receiving Levaquin for acute urinary tract infection. She has recurrent UTI, for which she is on proper Premarin vaginal cream for it. It was also discussed that she needs to have a colonoscopy done on workup to evaluate for colovesical fistula, for which we have requested Dr. Hu for this evaluation. She was seen by Dr. Cho in the past, requiring an EGD she had modified barium swallow eval, in 08/13/2020, which is unremarkable. EGD in September 2020, H. pylori was negative, reactive gastropathy, with minimal in inactive inflammation no malignancy noted. While at [facility] in the bills, she was noted to have some coughing episodes, she feels like the food comes down and then bubbles back up, she was hypoxemic on room air, and was sent to the emergency room for evaluation O2 at 3 L nasal cannula States cannula, night satting 95-99%. She is chronically anticoagulated, with Christiansen and Plavix, with known right brachiocephalic stenosis that was performed 01/01/2021. Patient is noted to have purplish discoloration in the finger pads all 5 fingers right hand,, cold fingers on both hands, consult were made with Dr. Mortensen med review included current dose of atenolol 50 mg every 12 hours, and lisinopril 10 mg daily, could be some component of Raynaud's, we will adjust meds to discontinue with the above medication, and start Cardizem 03/30: Patient is doing much better on the fingers, less purplish discoloration, and no cyanosis in the left, no cold hands on the left, the right hand seems to be pale, with lesst purplish discoloration on the finger pads. Patient has a sore in the bottom, she has a stage I nonblanching changes in the sacrum, position changes were advised, he should also shortness of breath and wheezing, for which we have given extra dose of Lasix, her blood pressure is in the low 90s today, however she is receiving IV fluids at 130 mL an hour. This is requested to be Hep-Lock, Lasix 40 mg 1 dose, and start midodrine 10 mg 3 times a day. Heart rate is in the high 90s, the highest is 106 today, no changes made with Cardizem. Cardiology is also following: Patient's doing much better, the peripheral cyanosis of the distal finger pads are now resolved, patient remains to be Cardizem 30 mg 3 times a day, blood pressure in the 120s today, we'll going to increase Cardizem to 60 mg 3 times a day, still tachycardic 110s patient is off beta yaya this time. Pending arterial Doppler and upper extremities, by vascular. We discussed with him a imaging for colovesical fistula would be try fluoroscopy cystogram, this is ordered. General surgery as an outpatient, for colonoscopy. Current urine culture, growing contaminated skin chan, however previous culture, is significant, we'll going to finish Levaquin as scheduled for UTI 04/01: She has been afebrile, heart rate running in 110 - 114. No changes from cardiology and they have signed off the case. Blood pressure 107/65, pulse ox 90% on room air. Repeat blood work reveals sodium 140, potassium 3.6, chloride 108, CO2 25, BUN 15 and creatinine 0.51. Blood sugars running between [address] Avelar discussed case with Dr. 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 Patient is been seen by Dr. Fink this morning and cleared for discharge. Upper GI was esophagus was completed which revealed moderate to severe esophageal dysmotility or paraspinous esophagus with at least moderate distal gastroesophageal reflux. Small upper diverticulum. 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 We'll plan for follow-up with neurosurgery in 6-12 months. Patient advised to cut down on caffeine regarding tachycardia. Discharge plan is to return to [facility]. Patient will be discharged to [facility] today in stable condition. DISCHARGE DIAGNOSES 1. Dysphagia with hypoxemia. 2. Acute hypoxemia without acute respiratory failure, possibly related to cyanosis and purpose discoloration of the finger. 3. Peripheral cyanosis involving the right hand more than the left hand, with known history of right brachiocephalic stenosis, status post stent placement in September 2020. 4. 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 Hernandez. 5. History of pulmonary embolism. 6. Diabetes mellitus type 2 uncontrolled with hypoglycemia. Glimepiride discontinued. 7. Non-Hodgkin's lymphoma [place] [address] Monaco and follows with Dr. Aranda, in remission. 8. T12-L1 severe spondylosis, severe canal stenosis and impending conus syndrome s/p revision T12-L2 fusion and decompression with chronic back pain. 9. Hypertension. 10. Hypothyroidism. 11. 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 12. Recurrent depression. 13. Chronic gout. 14. Hyperlipidemia. 15. Restless leg syndrome. 16. GERD DISCHARGE PLAN Return to [facility] Impression and plan of care have been directed as dictated by the signing physician. Karen Quintero nurse practitioner acting as scribe for signing physician. Patient Condition at Discharge: Good Plan - Discharge Summary Discharge Rx Participant: No New Discharge Prescriptions: New Diltiazem Oral [Cardizem*] 60 mg PO BID tab Midodrine [ProAmatine] 10 mg PO AC-TID tab Continue allopurinoL [Zyloprim] 100 mg PO DAILY Calcium Carb-Vit D 500Mg-5Mcg [Oscal 500+D 5 Mcg (200 Iu)] 1 tab PO DAILY Levothyroxine Sodium [Synthroid] 12.5 mcg PO HS Ipratropium Saucier 0.06%Nasal [Atrovent Nasal 0.06%] 2 spr EA NOSTRIL BID Dexlansoprazole [Dexilant] 60 mg PO DAILY PRN PRN Reason: Heartburn Apixaban [Eliquis] 5 mg PO Q12H DULoxetine HCL [Cymbalta] 60 mg PO HS DULoxetine HCL [Cymbalta] 30 mg PO HS Baclofen [Lioresal] 10 mg PO TID PRN tab PRN Reason: Muscle Spasm Clopidogrel [Plavix] 75 mg PO HS Empagliflozin/Metformin HCl [Synjardy Xr 25-1,000 mg Tablet] 1 tab PO DAILY rOPINIRole HCL [Requip] 4 mg PO HS Levofloxacin [Levaquin] 500 mg PO DAILY Gabapentin 600 mg PO Q8H #9 tab Estradiol Cream [Estrace Cream 0.01%] 1 gm VAGINAL SUTH@2100 Atorvastatin [Lipitor] 40 mg PO HS Loperamide [Imodium] 2 mg PO TID PRN PRN Reason: Diarrhea Psyllium Husk (with Sugar) [Metamucil Powder] 6 gm PO Q12H Acetaminophen Tab [Tylenol] 650 mg PO Q4H PRN PRN Reason: Pain Insulin Lispro [humaLOG Kwikpen] See Protocol SQ ACHS Linagliptin [Tradjenta] 5 mg PO DAILY HYDROcodone/APAP 10-325MG [[place] 10-325] 1 tab PO BID PRN #6 tab PRN Reason: Pain Temazepam [Restoril] 15 mg PO HS #3 cap Discontinued Lisinopril [Zestril] 10 mg PO DAILY #30 tab Atenolol [Tenormin] 50 mg PO Q12H Glimepiride [Amaryl] 2 mg PO BID@0900,1700 Discharge Medication List Calcium Carb-Vit D 500Mg-5Mcg [Oscal 500+D 5 Mcg (200 Iu)] 1 tab PO DAILY 01/05/14 [History] allopurinoL [Zyloprim] 100 mg PO DAILY 01/05/14 [History] Levothyroxine Sodium [Synthroid] 12.5 mcg PO HS 03/16/14 [History] Ipratropium Saucier 0.06%Nasal [Atrovent Nasal 0.06%] 2 spr EA NOSTRIL BID 07/03/20 [History] Dexlansoprazole [Dexilant] 60 mg PO DAILY PRN 08/07/20 [History] Apixaban [Eliquis] 5 mg PO Q12H 10/06/20 [History] DULoxetine HCL [Cymbalta] 60 mg PO HS 12/17/20 [History] Estradiol Cream [Estrace Cream 0.01%] 1 gm VAGINAL SUTH@2100 12/17/20 [History] Atorvastatin [Lipitor] 40 mg PO HS 12/27/20 [History] Loperamide [Imodium] 2 mg PO TID PRN 12/30/20 [History] Psyllium Husk (with Sugar) [Metamucil Powder] 6 gm PO Q12H 02/13/21 [History] DULoxetine HCL [Cymbalta] 30 mg PO HS 02/28/21 [History] Baclofen [Lioresal] 10 mg PO TID PRN tab 03/03/21 [Rx] Acetaminophen Tab [Tylenol] 650 mg PO Q4H PRN 03/29/21 [History] Clopidogrel [Plavix] 75 mg PO HS 03/29/21 [History] Empagliflozin/Metformin HCl [Synjardy Xr 25-1,000 mg Tablet] 1 tab PO DAILY 03/29/21 [History] Insulin Lispro [humaLOG Kwikpen] See Protocol SQ ACHS 03/29/21 [History] Levofloxacin [Levaquin] 500 mg PO DAILY 03/29/21 [History] Linagliptin [Tradjenta] 5 mg PO DAILY 03/29/21 [History] rOPINIRole HCL [Requip] 4 mg PO HS 03/29/21 [History] Diltiazem Oral [Cardizem*] 60 mg PO BID tab 04/01/21 [Rx] Gabapentin 600 mg PO Q8H #9 tab 04/01/21 [Rx] HYDROcodone/APAP 10-325MG [[place] 10-325] 1 tab PO BID PRN #6 tab 04/01/21 [Rx] Midodrine [ProAmatine] 10 mg PO AC-TID tab 04/01/21 [Rx] Temazepam [Restoril] 15 mg PO HS #3 cap 04/01/21 [Rx] Follow up Appointment(s)/Referral(s): Adi Pak MD [STAFF PHYSICIAN] - 2 Weeks Alvarez Rocha DO [Primary Care Provider] - 1-2 days Discharge Disposition: HOME WITH HOME HEALTH SERVICES
[2021-04-01 11:31] LABS: Glucose,Whole Blood 132 mg/dL (75-99)
--- NOTE | 2021-04-01 11:31 | P.PN ---
Subjective Progress Note Date: 04/01/21 Patient is seen and examined sitting up in a bedside chair. She had an arterial ultrasound of the upper extremities showing good waveform of the right upper extremity. She is denying any pain or discoloration at this time to her right hand or fingertips. She has full use of her right upper extremity. Objective - Vital Signs Vital signs: Vital Signs Temp 97.9 F 04/01/21 04:00 Pulse 114 H 04/01/21 04:00 Resp 18 04/01/21 04:00 BP 99/69 04/01/21 04:00 Pulse Ox 97 04/01/21 04:00 Intake & Output 03/31/21 04/01/21 04/01/21 18:59 06:59 18:59 Intake Total 720 10 Output Total 400 Balance 320 10 Weight 66 kg Intake: IV 10 Invasive Line 3 10 Oral 720 Output: Urine 400 Other: Voiding Method Toilet Toilet Diaper # Voids 1 2 2 - Exam General appearance: The patient is alert, oriented, in no acute distress. HET: Head is normocephalic and atraumatic. Neck: Supple without lymphadenopathy. Trachea midline. Heart: S1 S2. Regular rate and rhythm. Lungs: Clear to auscultation.. Abdomen: Soft, nontender, nondistended. Extremities: Normal skin color and turgor. Bruising right upper extremity. Good palpable radial pulse bilaterally. Fingertips are warm, normal color and turgor. Patient has full range of motion of bilateral upper extremities including hands and fingertips. Neurological: No focal deficits. Strength and sensation are grossly intact. - Labs CBC & Chem 7: 03/31/21 07:01 04/01/21 09:29 Labs: Abnormal Lab Results - Last 24 Hours (Table) 03/31/21 03/31/21 03/31/21 Range/Units 11:49 16:35 20:08 Chloride (98-107) mmol/L Creatinine (0.52-1.04) mg/dL Glucose (74-99) mg/dL POC Glucose (mg/dL) 252 H 271 H 243 H (75-99) mg/dL 04/01/21 04/01/21 Range/Units 06:00 09:29 Chloride 108 H (98-107) mmol/L Creatinine 0.51 L (0.52-1.04) mg/dL Glucose 141 H (74-99) mg/dL POC Glucose (mg/dL) 146 H (75-99) mg/dL Assessment and Plan Assessment: 1. History of microembolic disease right fingers 2. History of brachiocephalic stenosis status post angiography and stenting Plan: Arterial study reviewed of bilateral upper extremities with good flow/waveforms. Patient is not having any further discoloration of her fingers, she has full range of motion. There is no indication for any vascular surgical intervention. If cleared for discharge from vascular surgery. The impression and plan of care has been dictated as directed. I performed a history and examination of this patient, discussed the same with the dictator. I agree with the dictator's note ,documented as a scribe. Any additional findings or plans will be noted.
[2021-04-01] MEDS ORDERED: POTASSIUM CHLORIDE ER 20 MEQ TAB.ER PO SCH (12:00)
[2021-04-01 12:36] VITALS: BMI 26.6
--- NOTE | 2021-04-01 13:14 | FL ---
EXAMINATION TYPE: FL UGI w esophagus DATE OF EXAM: 04/01/2021 COMPARISON: CT abdomen and pelvis February 28, 2021 HISTORY: History of esophageal cancer with dysphagia. TECHNIQUE: A double contrast UGI study is attempted. A total of roughly 60 seconds of fluoroscopic time was utilized during procedure and 48 images obtained. FINDINGS: Game Tester image of the abdomen redemonstrates extensive surgical change or thoracolumbar junct ion and lumbosacral junction. Cholecystectomy clips are redemonstrated. Overall nonobstructive bowel gas pattern Esophagram shows dysmotility with abnormal secondary and tertiary contractions and abnormal dilatatio n. There is stent graft in the right brachiocephalic artery incidentally noted. A small posterior div erticulum is identified. No stricture or fixed hernia. The stomach shows less than optimal distention. No evidence of any suspicious intraluminal mass or u lcer disease. Moderate amount of gastroesophageal reflux seen during real-time performance of study. The duodenal bulb, sweep, and proximal small bowel loops are unremarkable. Patient did have small sheldon unt of deep penetration which she clears with coughing. IMPRESSION: Underlying [id number] esophageal dysmotility or presbyesophagus with at least mod erate distal gastroesophageal reflux. Small upper diverticulum.
[2021-04-01] MEDS: PSYLLIUM HUSK 100% 6 GM PACKET PO SCH (13:22)
[2021-04-01] MEDS: HYDROcodone/APAP 10-325MG 1 EACH TAB PO PRN (15:37)
[2021-04-01 16:39] LABS: Glucose,Whole Blood 358 mg/dL (75-99)
--- NOTE | 2021-04-01 16:49 | P.PN ---
Progress Note - Text Progress Note Date: 04/01/21 The patient's course was discussed with Dr. Avelar via phone. I will set her up for an outpatient colonoscopy in 1-2 weeks. I'll then see her in the office with family for follow-up. Typically a colovesical fistula is not seen on cystoscopy or colonoscopy. Typically not seen well with imaging. These are diagnosed based on clinical findings. Typically treated with a sigmoid colon resection. My office will get a hold of Viv to schedule a colonoscopy in the near future. Further recommendations to follow.
[2021-04-01 17:17] VITALS: BP 120/71; PULSE 114
--- NOTE | 2021-04-09 13:51 | P.ARTDOP ---
Arterial Doppler Upper extremity arterial Doppler: Date of study: 03/31/2021 Reason for study: Bluish discoloration fingers of right hand. Findings: Doppler waveforms on both sides are triphasic through radial and ulnar. The left side is deferred due to a recent procedure. On the right there are no significant segmental gradients. Impression: This study is somewhat limited but data available suggests normal proximal perfusion.
== END 2021-04-01 20:34 | disposition home health service (06) | DRG 546 ==
LOC: EC 20:02 → 3SCARD 23:28 → OBSVTOIN 23:28 → 3SCARD 03-29 15:18
PROVIDERS: ADMIT Family Medicine; ATTEND Family Medicine
DX: I73.00 Raynaud's syndrome without gangrene (principal); D68.51 Activated protein C resistance; N39.0 Urinary tract infection, site not specified; F33.9 Major depressive disorder, recurrent, unspecified; N32.1 Vesicointestinal fistula; R09.02 Hypoxemia; R23.0 Cyanosis; E03.9 Hypothyroidism, unspecified; E11.649 Type 2 diabetes mellitus with hypoglycemia without coma; E78.5 Hyperlipidemia, unspecified; Z85.72 Personal history of non-Hodgkin lymphomas; F40.240 Claustrophobia; G25.81 Restless legs syndrome; I10 Essential (primary) hypertension; K21.9 Gastro-esophageal reflux disease without esophagitis; K22.4 Dyskinesia of esophagus; K31.9 Disease of stomach and duodenum, unspecified; M1A.9XX0 Chronic gout, unspecified, without tophus (tophi); M47.9 Spondylosis, unspecified; M48.04 Spinal stenosis, thoracic region; M48.061 Spinal stenosis, lumbar region without neurogenic claudication; Z79.01 Long term (current) use of anticoagulants; Z86.711 Personal history of pulmonary embolism; Z86.718 Personal history of other venous thrombosis and embolism; Z86.73 Personal history of transient ischemic attack (TIA), and cerebral infarction without residual deficits; Z87.11 Personal history of peptic ulcer disease; Z85.01 Personal history of malignant neoplasm of esophagus; Z87.440 Personal history of urinary (tract) infections; Z92.21 Personal history of antineoplastic chemotherapy; Z92.3 Personal history of irradiation; Z96.653 Presence of artificial knee joint, bilateral; Z90.710 Acquired absence of both cervix and uterus; Z82.3 Family history of stroke; Z82.49 Family history of ischemic heart disease and other diseases of the circulatory system; Z80.1 Family history of malignant neoplasm of trachea, bronchus and lung; Z79.890 Hormone replacement therapy; Z79.899 Other long term (current) drug therapy; Z79.84 Long term (current) use of oral hypoglycemic drugs; Z79.02 Long term (current) use of antithrombotics/antiplatelets; E11.41 Type 2 diabetes mellitus with diabetic mononeuropathy; E11.51 Type 2 diabetes mellitus with diabetic peripheral angiopathy without gangrene; E86.0 Dehydration; R00.0 Tachycardia, unspecified; L89.151 Pressure ulcer of sacral region, stage 1
CPT/HCPCS: 36415; 71046; 74240; 80048; 80053; 81001; 83605; 83735; 83880; 84439; 84443; 84484; 85025; 85379; 85610; 85730; 87086; 93005; 93923; 99285

== ENCOUNTER 2021-04-15 13:38 | Inpatient (IN) | payer MEDICARE, OTHER ==
--- NOTE | 2021-04-15 14:13 | ED ---
General Adult HPI - General Chief complaint: Weakness Stated complaint: Altered Time Seen by Provider: 04/15/21 14:05 Source: patient, family, EMS, RN notes reviewed, old records reviewed Mode of arrival: EMS Limitations: altered mental status, physical limitation - History of Present Illness Initial comments: 81-year-old female presented from jail with increased confusion, weakness over the past several weeks. This has escalated over the past several days. She is accompanied by her granddaughter was able to give history. She does have issues with recurrent area tract infections. Additionally she is being monitored for sinus tachycardia. And has had increased oxygen requirements over the past several weeks. Currently on 3 L. There is a reported fever of 101. She has been vaccinated against coronavirus. - Related Data Home Medications Medication Instructions Recorded Confirmed Calcium Carb-Vit D 500Mg-5Mcg 1 tab PO DAILY@89901/05/14 04/15/21 [Oscal 500+D 5 Mcg (200 Iu)] allopurinoL [Zyloprim] 100 mg PO DAILY@89901/05/14 04/15/21 Levothyroxine Sodium [Synthroid] 12.5 mcg PO HS@209903/16/14 04/15/21 Ipratropium Jackson 0.06%Nasal 2 spr EA NOSTRIL BID@899,209907/03/20 04/15/21 [Atrovent Nasal 0.06%] Apixaban [Eliquis] 5 mg PO BID@899,209910/06/20 04/15/21 DULoxetine HCL [Cymbalta] 60 mg PO HS@209912/17/20 04/15/21 Estradiol Cream [Estrace Cream 1 gm VAGINAL SUTH@209912/17/20 04/15/21 0.01%] Atorvastatin [Lipitor] 40 mg PO HS@209912/27/20 04/15/21 Loperamide [Imodium] 2 mg PO Q8H PRN 12/30/20 04/15/21 Psyllium Husk (with Sugar) 6 gm PO BID@00,209902/13/21 04/15/21 [Metamucil Powder] DULoxetine HCL [Cymbalta] 30 mg PO HS@209902/28/21 04/15/21 Acetaminophen Tab [Tylenol] 650 mg PO Q4H PRN 03/29/21 04/15/21 Clopidogrel [Plavix] 75 mg PO HS@209903/29/21 04/15/21 Empagliflozin/Metformin HCl 1 tab PO DAILY@89903/29/21 04/15/21 [Synjardy Xr 25-1,000 mg Tablet] Insulin Lispro [humaLOG Kwikpen] See Protocol SQ ACHS 03/29/21 04/15/21 Linagliptin [Tradjenta] 5 mg PO DAILY@89903/29/21 04/15/21 rOPINIRole HCL [Requip] 4 mg PO HS@209903/29/21 04/15/21 Fludrocortisone Acetate 0.1 mg PO DAILY@89904/15/21 04/15/21 Gabapentin 600 mg PO TID@0600,1400,2200 04/15/21 04/15/21 Mag Hydrox/Aluminum Hyd/Simeth 10 ml PO Q4H PRN 04/15/21 04/15/21 [Mylanta Maximum Strength Liq] Midodrine [ProAmatine] 10 mg PO TID@0700,1100,1600 04/15/21 04/15/21 Omeprazole 20 mg PO DAILY PRN 04/15/21 04/15/21 Temazepam [Restoril] 15 mg PO HS@209904/15/21 04/15/21 Trihexyphenidyl [Artane] 1 mg PO DAILY@89904/15/21 04/15/21 atenoloL [Tenormin] 12.5 mg PO DAILY@89904/15/21 04/15/21 dilTIAZem HCL 30 mg PO TID@0900,1300,209904/15/21 04/15/21 Previous Rx's Medication Instructions Recorded Baclofen [Lioresal] 10 mg PO TID PRN tab 03/03/21 HYDROcodone/APAP 10-325MG [[place] 1 tab PO BID PRN #6 tab 04/01/21 10-325] Allergies Allergy/AdvReac Type Severity Reaction Status Date / Time adhesive Allergy red skin, Verified 04/15/21 14:39 blisters cefaclor [From Ceclor] Allergy Rash/Hives Verified 04/15/21 14:39 ciprofloxacin [From Cipro] Allergy Rash/Hives Verified 04/15/21 14:39 ciprofloxacin HCl Allergy Rash/Hives Verified 04/15/21 14:39 [From Cipro] hydromorphone HCl Allergy Anaphylaxis Verified 04/15/21 14:39 [From Dilaudid] Penicillins Allergy Rash/Hives Verified 04/15/21 14:39 clindamycin AdvReac Nausea & Verified 04/15/21 14:39 Vomiting sulfamethoxazole AdvReac Abdominal Verified 04/15/21 14:39 [From Bactrim] Pain trimethoprim [From Bactrim] AdvReac Abdominal Verified 04/15/21 14:39 Pain Review of Systems ROS Statement: Those systems with pertinent positive or pertinent negative responses have been documented in the HPI. ROS Other: All systems not noted in ROS Statement are negative. 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 History of Any Multi-Drug Resistant Organisms: None Reported Past Surgical History: Appendectomy, Back Surgery, Bladder Surgery, Breast Surgery, Cholecystectomy, Hysterectomy, Joint Replacement, Orthopedic Surgery, Tonsillectomy Additional Past Surgical History / Comment(s): 12/2020 PTBA with stent R brachial/cephalic artery, cervical fusion, lumbar laminectomy, R hip repair, bilateral thumbs/rods, R 3rd toe nathaniel, bilateral total knee arthroplasties, pain clinic procedures, R femur biopsy, D&Cs, bladder suspension, EGD, colonoscopies, L breast biopsy/axilary bx, bilateral cataract removals. Past Anesthesia/Blood Transfusion Reactions: No Reported Reaction Additional Past Anesthesia/Blood Transfusion Reaction / Comment(s): CLAUSTROPHOBIA Past Psychological History: Anxiety, Depression Smoking Status: Never smoker Past Alcohol Use History: None Reported Past Drug Use History: None Reported - Past Family History Father Family Medical History: Deep Vein Thrombosis (DVT), Pulmonary Embolus Additional Family Medical History / Comment(s): Father at age 32 from pulmonary embolism. Mother Family Medical History: Cancer Additional Family Medical History / Comment(s): breast Brother(s) Family Medical History: Cancer, CVA/TIA, Deep Vein Thrombosis (DVT), Myocardial Infarction (VT), Pulmonary Embolus, Vascular Disorder Additional Family Medical History / Comment(s): 2 brothers that have passed one from myocardial infarction and one from pulmonary embolism. 2 brothers are alive and one has lung cancer, one brother is alive with a brain aneurysm and CVA. General Exam Limitations: altered mental status, physical limitation General appearance: alert, in no apparent distress Head exam: Present: atraumatic, normocephalic Eye exam: Present: normal appearance, PERRL ENT exam: Present: mucous membranes dry Neck exam: Present: normal inspection. Absent: tenderness, meningismus Respiratory exam: Present: respiratory distress, rhonchi, decreased breath sounds Cardiovascular Exam: Present: normal rhythm, tachycardia GI/Abdominal exam: Present: soft. Absent: distended, tenderness Extremities exam: Present: normal inspection, normal capillary refill. Absent: pedal edema Neurological exam: Present: alert. Absent: motor sensory deficit Skin exam: Present: warm, dry, intact. Absent: cyanosis, diaphoretic Course Vital Signs 04/15/21 04/15/21 13:55 16:17 Temperature 99.7 F H 98.4 F Pulse Rate 130 H 130 H Respiratory 18 18 Rate Blood Pressure 127/83 143/82 O2 Sat by Pulse 97 96 Oximetry EKG Findings - EKG Comments: EKG Findings:: EKG: Sinus tachycardia, incomplete right bundle pressure, rate of 132, CT interval 136, QRS duration 96, no ST segment elevation. 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 Patient is scheduled to see surgery as an outpatient and have a colonoscopy performed. She has followed with neurology in the past. Not currently on antibiotics. She does have signs of urinary tract infection and most recently had multiple drug resistant organisms on urine culture. Repeat culture is obtained. Did initiate 1 dose of meropenem in the emergency department as previous urine cultures were sensitive. Patient has stable hemoglobin, normal white blood cell count. CT brain negative for intracranial hemorrhage or mass effect. Chest x-ray is clear. Potassium was mildly low at 8.3 and was replaced. She'll be admitted for IV hydration. Infectious disease will be placed on consult. Cardiology placed on consult as the patient is currently being worked up for sinus tachycardia and has a monitor in place. She is in sinus tachycardia, rate around 1:30 which according to the family has been persistent for the past several weeks. Also Dr. Flores is placed on consult given that the patient was planned for outpatient colonoscopy with Dr. Flores. Case discussed with Dr. Farooq who will admit. - Lab Data Result diagrams: 04/15/21 14:17 04/15/21 14:17 Lab Results 04/15/21 04/15/21 04/15/21 Range/Units 14:06 14:17 14:17 WBC 8.6 (3.8-10.6) k/uL RBC 3.73 L (3.80-5.40) m/uL Hgb 10.5 L (11.4-16.0) gm/dL Hct 32.0 L (34.0-46.0) % MCV 85.8 D (80.0-100.0) fL MCH 28.3 (25.0-35.0) pg MCHC 33.0 (31.0-37.0) g/dL RDW 16.0 H (11.5-15.5) % Plt Count 275 D (150-450) k/uL MPV 6.9 Neutrophils % 70 % Lymphocytes % 7 % Monocytes % 21 % Eosinophils % 0 % Basophils % 0 % Neutrophils # 6.0 (1.3-7.7) k/uL Lymphocytes # 0.6 L (1.0-4.8) k/uL Monocytes # 1.8 H (0-1.0) k/uL Eosinophils # 0.0 (0-0.7) k/uL Basophils # 0.0 (0-0.2) k/uL Hypochromasia Slight Poikilocytosis Slight Anisocytosis Slight PT 10.9 (9.0-12.0) sec INR 1.0 (<1.2) APTT 25.6 (22.0-30.0) sec Sodium (137-145) mmol/L Potassium (3.5-5.1) mmol/L Chloride (98-107) mmol/L Carbon Dioxide (22-30) mmol/L Anion Gap mmol/L BUN (7-17) mg/dL Creatinine (0.52-1.04) mg/dL Est GFR (CKD-EPI)AfAm (>60 ml/min/1.73 sqM) Est GFR (CKD-EPI)NonAf (>60 ml/min/1.73 sqM) Glucose (74-99) mg/dL Plasma Lactic Acid Luis (0.7-2.0) mmol/L Calcium (8.4-10.2) mg/dL Magnesium (1.6-2.3) mg/dL Total Bilirubin (0.2-1.3) mg/dL AST (14-36) U/L ALT (4-34) U/L Alkaline Phosphatase (38-126) U/L Creatine Kinase (30-135) U/L Troponin I (0.000-0.034) ng/mL NT-Pro-B Natriuret Pep 463 pg/mL Total Protein (6.3-8.2) g/dL Albumin (3.5-5.0) g/dL Urine Color Urine Appearance (Clear) Urine pH (5.0-8.0) Ur Specific [place] (1.001-1.035) Urine Protein (Negative) Urine Glucose (UA) (Negative) Urine Ketones (Negative) Urine Blood (Negative) Urine Nitrite (Negative) Urine Bilirubin (Negative) Urine Urobilinogen (<2.0) mg/dL Ur Leukocyte Esterase (Negative) Urine RBC (0-5) /hpf Urine WBC (0-5) /hpf Ur Squamous Epith Cells (0-4) /hpf Urine Mucus (None) /hpf Coronavirus (PCR) (Not Detectd) 04/15/21 04/15/21 04/15/21 Range/Units 14:17 14:17 14:17 WBC (3.8-10.6) k/uL RBC (3.80-5.40) m/uL Hgb (11.4-16.0) gm/dL Hct (34.0-46.0) % MCV (80.0-100.0) fL MCH (25.0-35.0) pg MCHC (31.0-37.0) g/dL RDW (11.5-15.5) % Plt Count (150-450) k/uL MPV Neutrophils % % Lymphocytes % % Monocytes % % Eosinophils % % Basophils % % Neutrophils # (1.3-7.7) k/uL Lymphocytes # (1.0-4.8) k/uL Monocytes # (0-1.0) k/uL Eosinophils # (0-0.7) k/uL Basophils # (0-0.2) k/uL Hypochromasia Poikilocytosis Anisocytosis PT (9.0-12.0) sec INR (<1.2) APTT (22.0-30.0) sec Sodium 136 L (137-145) mmol/L Potassium 3.3 L (3.5-5.1) mmol/L Chloride 107 (98-107) mmol/L Carbon Dioxide 20 L (22-30) mmol/L Anion Gap 9 mmol/L BUN 8 (7-17) mg/dL Creatinine 0.47 L (0.52-1.04) mg/dL Est GFR (CKD-EPI)AfAm >90 (>60 ml/min/1.73 sqM) Est GFR (CKD-EPI)NonAf >90 (>60 ml/min/1.73 sqM) Glucose 151 H (74-99) mg/dL Plasma Lactic Acid Luis 1.1 (0.7-2.0) mmol/L Calcium 9.2 (8.4-10.2) mg/dL Magnesium 1.8 (1.6-2.3) mg/dL Total Bilirubin 0.9 (0.2-1.3) mg/dL AST 22 (14-36) U/L ALT 11 (4-34) U/L Alkaline Phosphatase 109 (38-126) U/L Creatine Kinase 28 L (30-135) U/L Troponin I (0.000-0.034) ng/mL NT-Pro-B Natriuret Pep pg/mL Total Protein 5.6 L (6.3-8.2) g/dL Albumin 3.3 L (3.5-5.0) g/dL Urine Color Light Yellow Urine Appearance Cloudy H (Clear) Urine pH 5.5 (5.0-8.0) Ur Specific [place] 1.026 (1.001-1.035) Urine Protein Trace H (Negative) Urine Glucose (UA) 4+ H (Negative) Urine Ketones Trace H (Negative) Urine Blood Negative (Negative) Urine Nitrite Negative (Negative) Urine Bilirubin Negative (Negative) Urine Urobilinogen <2.0 (<2.0) mg/dL Ur Leukocyte Esterase Large H (Negative) Urine RBC 4 (0-5) /hpf Urine WBC 91 H (0-5) /hpf Ur Squamous Epith Cells 1 (0-4) /hpf Urine Mucus Rare H (None) /hpf Coronavirus (PCR) (Not Detectd) 04/15/21 04/15/21 Range/Units 14:17 14:17 WBC (3.8-10.6) k/uL RBC (3.80-5.40) m/uL Hgb (11.4-16.0) gm/dL Hct (34.0-46.0) % MCV (80.0-100.0) fL MCH (25.0-35.0) pg MCHC (31.0-37.0) g/dL RDW (11.5-15.5) % Plt Count (150-450) k/uL MPV Neutrophils % % Lymphocytes % % Monocytes % % Eosinophils % % Basophils % % Neutrophils # (1.3-7.7) k/uL Lymphocytes # (1.0-4.8) k/uL Monocytes # (0-1.0) k/uL Eosinophils # (0-0.7) k/uL Basophils # (0-0.2) k/uL Hypochromasia Poikilocytosis Anisocytosis PT (9.0-12.0) sec INR (<1.2) APTT (22.0-30.0) sec Sodium (137-145) mmol/L Potassium (3.5-5.1) mmol/L Chloride (98-107) mmol/L Carbon Dioxide (22-30) mmol/L Anion Gap mmol/L BUN (7-17) mg/dL Creatinine (0.52-1.04) mg/dL Est GFR (CKD-EPI)AfAm (>60 ml/min/1.73 sqM) Est GFR (CKD-EPI)NonAf (>60 ml/min/1.73 sqM) Glucose (74-99) mg/dL Plasma Lactic Acid Luis (0.7-2.0) mmol/L Calcium (8.4-10.2) mg/dL Magnesium (1.6-2.3) mg/dL Total Bilirubin (0.2-1.3) mg/dL AST (14-36) U/L ALT (4-34) U/L Alkaline Phosphatase (38-126) U/L Creatine Kinase (30-135) U/L Troponin I <0.012 (0.000-0.034) ng/mL NT-Pro-B Natriuret Pep pg/mL Total Protein (6.3-8.2) g/dL Albumin (3.5-5.0) g/dL Urine Color Urine Appearance (Clear) Urine pH (5.0-8.0) Ur Specific [place] (1.001-1.035) Urine Protein (Negative) Urine Glucose (UA) (Negative) Urine Ketones (Negative) Urine Blood (Negative) Urine Nitrite (Negative) Urine Bilirubin (Negative) Urine Urobilinogen (<2.0) mg/dL Ur Leukocyte Esterase (Negative) Urine RBC (0-5) /hpf Urine WBC (0-5) /hpf Ur Squamous Epith Cells (0-4) /hpf Urine Mucus (None) /hpf Coronavirus (PCR) Not Detected (Not Detectd) Disposition Clinical Impression: UTI (urinary tract infection), Generalized weakness, Tachycardia Disposition: ADMITTED IP TO THIS [facility] Condition: Stable Is patient prescribed a controlled substance at d/c from ED?: No Referrals: Veronica Avelar MD [STAFF PHYSICIAN] - 1-2 days Decision to Admit Reason: Admit from EC Decision Date: 04/15/21 Decision Time: 17:02
[2021-04-15 14:38] LABS: Partial Thromboplastin Time 25.6 sec (22.0-30.0); Prothrombin Time 10.9 sec (9.0-12.0)
[2021-04-15 14:49] LABS: Anisocytosis Slight; Basophils % (A) 0 %; Eosinophils % (A) 0 %; HGB 10.5 gm/dL (11.4-16.0); Hypochromasia Slight; Lymphocytes # (A) 0.6 k/uL (1.0-4.8); Lymphocytes % (A) 7 %; MCH 28.3 pg (25.0-35.0); Mean Platelet Volume 6.9; Monocytes # (A) 1.8 k/uL (0-1.0); Monocytes % (A) 21 %; Neutrophils % (A) 70 %; Poikilocytosis Slight; RBC 3.73 m/uL (3.80-5.40); WBC 8.6 k/uL (3.8-10.6)
[2021-04-15 14:50] LABS: ALT 11 U/L (4-34); AST 22 U/L (14-36); African American GFR (CKD) >90 (>60 ml/min/1.73 sqM); Albumin 3.3 g/dL (3.5-5.0); Alkaline Phosphatase 109 U/L (38-126); Anion Gap 9 mmol/L; Blood Urea Nitrogen 8 mg/dL (7-17); Calcium 9.2 mg/dL (8.4-10.2); Carbon Dioxide 20 mmol/L (22-30); Chloride 107 mmol/L (98-107); Creatine Kinase 28 U/L (30-135); Glucose 151 mg/dL (74-99); Magnesium 1.8 mg/dL (1.6-2.3); Non-African American GFR(CKD) >90 (>60 ml/min/1.73 sqM); Potassium 3.3 mmol/L (3.5-5.1); Sodium 136 mmol/L (137-145); Total Bilirubin 0.9 mg/dL (0.2-1.3); Total Protein 5.6 g/dL (6.3-8.2)
[2021-04-15 14:51] LABS: MCV 85.8 fL (80.0-100.0); Platelet Count 275 k/uL (150-450)
--- NOTE | 2021-04-15 14:58 | CT ---
EXAMINATION TYPE: CT brain cspine wo con DATE OF EXAM: 04/15/2021 COMPARISON: CT brain February 13, [address] cervical spine November 29, 2020 HISTORY: Fall injury with headache and neck pain CT DLP: 1343.8 mGycm. Automated Exposure Control for Dose Reduction was Utilized. TECHNIQUE: CT scan of the head and cervical spine are performed without contrast. FINDINGS: There is no acute intracranial hemorrhage or midline shift identified. Mild ventricular a nd sulcal prominence redemonstrated. The calvarium is intact. [place]-white matter differentiation louisa ins fairly well maintained. The globes are intact and the visualized sinuses are clear. Cervical spine is visualized in its entirety from C1 through upper thoracic levels and demonstrates S -shaped scoliosis. Prevertebral soft tissue remains within normal limits. C1-C2 articulation satisfac tory on the coronal images. Persistent ossific fusion of the C3-C7 vertebra. Persistent moderate to s evere disc space narrowing and spurring at C2-C3 and C7-T1 levels with posterior spurring and spur di sc complexes effacing anterior thecal sac. Axial images show multilevel uncovertebral facet degenerative changes bilaterally contributing to mul tilevel bilateral neural foraminal narrowing. Stent graft in the right brachiocephalic artery is note d. Lung apices show no pneumothorax. IMPRESSION: 1. There is no acute fracture or dislocation evident in the cervical spine. 2. No acute intracranial hemorrhage or midline shift is seen.
--- NOTE | 2021-04-15 15:02 | XR ---
EXAMINATION TYPE: XR chest 2V DATE OF EXAM: 04/15/2021 COMPARISON: 03/31/2021 INDICATION: Weakness TECHNIQUE: Frontal and lateral views of the chest are obtained. FINDINGS: The heart size is normal. The pulmonary vasculature is normal. The lungs are clear. Electronic device overlies the right chest. A stent is in the great vessel IMPRESSION: 1. No acute pulmonary process.
[2021-04-15 16:07] LABS: Appearance,Urine Cloudy (Clear); Bilirubin,Urine Negative (Negative); Blood,Urine Negative (Negative); Color,Urine Light Yellow; Glucose,Urine (UA) 4+ (Negative); Ketones,Urine Trace (Negative); Leukocyte Esterase,Urine Large (Negative); Mucus,Urine Rare /hpf; Nitrite,Urine Negative (Negative); PH, Urine 5.5 (5.0-8.0); Protein,Urine Trace (Negative); RBC,Urine 4 /hpf (0-5); Specific Gravity,Urine 1.026 (1.001-1.035); Squamous Epithelial Cell,Urine 1 /hpf (0-4); Urobilinogen,Urine <2.0 mg/dL (<2.0); WBC,Urine 91 /hpf (0-5)
[2021-04-15] MEDS ORDERED: HYDROcodone/APAP 10-325MG 1 EACH TAB PO ONE (16:07)
[2021-04-15] MEDS ORDERED: MEROPENEM 1 GM in SODIUM CHLORIDE 0.9% 100 ML IVPB STA (16:54)
[2021-04-15] MEDS ORDERED: SODIUM CHLORIDE 0.9% 500 ML 500 ML IV ONE (16:56)
[2021-04-15] MEDS ORDERED: NALOXONE 0.4 MG/ML 1 ML VIAL IV PRN (16:56)
[2021-04-15] MEDS ORDERED: ACETAMINOPHEN TAB 325 MG TAB PO PRN (16:56)
[2021-04-15] MEDS ORDERED: POTASSIUM BICARBONATE/CIT AC 20 MEQ TABLET.EFF PO ONE (16:58)
[2021-04-15] MEDS: SODIUM CHLORIDE 0.9% 1,000 ML IV SCH (17:59)
[2021-04-15] MEDS ORDERED: PANTOPRAZOLE 40 MG TABLET PO PRN (21:03)
[2021-04-15] MEDS ORDERED: MAG HYDROX/AL HYDROX/SIMETH 30 ML CUP PO PRN (21:03)
[2021-04-15] MEDS ORDERED: LOPERAMIDE 2 MG CAP PO PRN (21:03)
[2021-04-15] MEDS ORDERED: BACLOFEN 10 MG TAB PO PRN (21:03)
[2021-04-15 21:28] LABS: Glucose,Whole Blood 134 mg/dL (75-99)
[2021-04-15] MEDS: GABAPENTIN 300 MG CAP PO SCH (22:29)
[2021-04-15] MEDS: PSYLLIUM HUSK 100% 6 GM PACKET PO SCH (22:31)
--- NOTE | 2021-04-15 22:33 | P.CONS ---
History of Present Illness - Reason for Consult Consult date: 04/15/21 urinary tract infection with multiple antibiotic ALLERGIES Requesting physician: Luis Alfaro - Chief Complaint Mental status changes and fever x 1 day - History of Present Illness Patient is a 81-year-old female with a past medical history significant for recurrent urinary tract infection in this patient apparently did have a concern for possible colovesical fistula that was suspected on the basis of recent cystoscopy done by her urologist and the patient was supposed to undergo colonoscopy to confirm it, patient has been brought to [facility] on ER this afternoon for evaluation of confusion and weakness that has been getting worse over the last few weeks however has gone worse for the last few days patient. He was noticed to be tachycardic and is requiring increasing oxygen and did have a fever of 101F at home, patient on presentation to the hospital have a fever of 99.7F the patient was tachycardic with heart rate of 130, patient did have a normal white count, patient did have a positive UA, specific CT was negative for acute pulmonary process, the patient was started on meropenem because of her multiple antibiotic ALLERGIES and infection disease was consulted for further management of antibiotic therapy, patient at the time of evaluation is presently confused and has been tolerating multiple falls however the daughter mentioned she did not have any fall the day of presentation to the hospital patient has been complaining of some generalized body aches and nausea but no vomiting no diarrhea seems have some urinary frequency but no suprapubic or flank pain and denies having any fecal drainage through her urethra, last urine culture done on 03/21/2021 were positive for Citrobacter that was resistant to Fortaz and Klebsiella Review of Systems Positive point has been mentioned in the HPI rest of the systems are negative Past Medical History Past Medical History: Cancer, CVA/TIA, Diabetes Mellitus, Deep Vein Thrombosis (DVT), GERD/Reflux, GI Bleed, Hyperlipidemia, Hypertension, Osteoarthritis (OA), Pneumonia, Pulmonary Embolus (PE), Skin Disorder, Syncope, Thyroid Disorder, Vascular Disorder Additional Past Medical History / Comment(s): 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 History of Any Multi-Drug Resistant Organisms: None Reported Past Surgical History: Appendectomy, Back Surgery, Bladder Surgery, Breast Buckley rgery, Cholecystectomy, Hysterectomy, Joint Replacement, Orthopedic Surgery, Tonsillectomy Additional Past Surgical History / Comment(s): 12/2020 PTBA with stent R brachial/cephalic artery, cervical fusion, lumbar laminectomy, R hip repair, bilateral thumbs/rods, R 3rd toe nathaniel, bilateral total knee arthroplasties, pain clinic procedures, R femur biopsy, D&Cs, bladder suspension, EGD, colonoscopies, L breast biopsy/axilary bx, bilateral cataract removals. Past Anesthesia/Blood Transfusion Reactions: No Reported Reaction Additional Past Anesthesia/Blood Transfusion Reaction / Comm: CLAUSTROPHOBIA Past Psychological History: Anxiety, Depression Smoking Status: Never smoker Past Alcohol Use History: None Reported Past Drug Use History: None Reported - Past Family History Father Family Medical History: Deep Vein Thrombosis (DVT), Pulmonary Embolus Additional Family Medical History / Comment(s): Father at age 32 from pulmonary embolism. Mother Family Medical History: Cancer Additional Family Medical History / Comment(s): breast Brother(s) Family Medical History: Cancer, CVA/TIA, Deep Vein Thrombosis (DVT), Myocardial Infarction ([place]), Pulmonary Embolus, Vascular Disorder Additional Family Medical History / Comment(s): 2 brothers that have passed one from myocardial infarction and one from pulmonary embolism. 2 brothers are alive and one has lung cancer, one brother is alive with a brain aneurysm and CVA. Medications and Allergies Home Medications Medication Instructions Recorded Confirmed Type Calcium Carb-Vit D 500Mg-5Mcg 1 tab PO DAILY@89901/05/14 04/15/21 History [Oscal 500+D 5 Mcg (200 Iu)] allopurinoL [Zyloprim] 100 mg PO DAILY@0900 01/05/14 04/15/21 History Levothyroxine Sodium [Synthroid] 12.5 mcg PO HS@2100 03/16/14 04/15/21 History Ipratropium [place] 0.06%Nasal 2 spr EA NOSTRIL BID@899,209907/03/20 04/15/21 History [Atrovent Nasal 0.06%] Apixaban [Eliquis] 5 mg PO BID@899,209910/06/20 04/15/21 History DULoxetine HCL [Cymbalta] 60 mg PO HS@209912/17/20 04/15/21 History Estradiol Cream [Estrace Cream 1 gm VAGINAL SUTH@209912/17/20 04/15/21 History 0.01%] Atorvastatin [Lipitor] 40 mg PO HS@209912/27/20 04/15/21 History Loperamide [Imodium] 2 mg PO Q8H PRN 12/30/20 04/15/21 History Psyllium Husk (with Sugar) 6 gm PO BID@899,209902/13/21 04/15/21 History [Metamucil Powder] DULoxetine HCL [Cymbalta] 30 mg PO HS@209902/28/21 04/15/21 History Baclofen [Lioresal] 10 mg PO TID PRN tab 03/03/21 04/15/21 Rx Acetaminophen Tab [Tylenol] 650 mg PO Q4H PRN 03/29/21 04/15/21 History Clopidogrel [Plavix] 75 mg PO HS@209903/29/21 04/15/21 History Empagliflozin/Metformin HCl 1 tab PO DAILY@89903/29/21 04/15/21 History [Synjardy Xr 25-1,000 mg Tablet] Insulin Lispro [humaLOG Kwikpen] See Protocol SQ ACHS 03/29/21 04/15/21 History Linagliptin [Tradjenta] 5 mg PO DAILY@89903/29/21 04/15/21 History rOPINIRole HCL [Requip] 4 mg PO HS@209903/29/21 04/15/21 History HYDROcodone/APAP 10-325MG [[place] 1 tab PO BID PRN #6 tab 04/01/21 04/15/21 Rx 10-325] Fludrocortisone Acetate 0.1 mg PO DAILY@89904/15/21 04/15/21 History Gabapentin 600 mg PO TID@0600,1400,0 04/15/21 04/15/21 History Mag Hydrox/Aluminum Hyd/Simeth 10 ml PO Q4H PRN 04/15/21 04/15/21 History [Mylanta Maximum Strength Liq] Midodrine [ProAmatine] 10 mg PO TID@0700,1100,1600 04/15/21 04/15/21 History Omeprazole 20 mg PO DAILY PRN 04/15/21 04/15/21 History Temazepam [Restoril] 15 mg PO HS@2100 04/15/21 04/15/21 History Trihexyphenidyl [Artane] 1 mg PO DAILY@0900 04/15/21 04/15/21 History atenoloL [Tenormin] 12.5 mg PO DAILY@0904/15/21 04/15/21 History dilTIAZem HCL 30 mg PO TID@0900,1300,2100 04/15/21 04/15/21 History Allergies Allergy/AdvReac Type Severity Reaction Status Date / Time adhesive Allergy red skin, Verified 04/15/21 14:39 blisters cefaclor [From Ceclor] Allergy Rash/Hives Verified 04/15/21 14:39 ciprofloxacin [From Cipro] Allergy Rash/Hives Verified 04/15/21 14:39 ciprofloxacin HCl Allergy Rash/Hives Verified 04/15/21 14:39 [From Cipro] hydromorphone HCl Allergy Anaphylaxis Verified 04/15/21 14:39 [From Dilaudid] Penicillins Allergy Rash/Hives Verified 04/15/21 14:39 clindamycin AdvReac Nausea & Verified 04/15/21 14:39 Vomiting sulfamethoxazole AdvReac Abdominal Verified 04/15/21 14:39 [From Bactrim] Pain trimethoprim [From Bactrim] AdvReac Abdominal Verified 04/15/21 14:39 Pain Physical Exam Vitals: Vital Signs Temp Pulse Resp BP Pulse Ox 04/15/21 18:17 98 F 132 H 18 130/83 04/15/21 16:17 98.4 F 130 H 18 143/82 96 04/15/21 13:55 99.7 F H 130 H 18 127/83 97 Intake and Output 04/15/21 04/15/21 04/15/21 06:59 14:59 22:59 Other: Weight 58.967 kg GENERAL DESCRIPTION: An elderly female lying in bed, no distress. No tachypnea or accessory muscle of respiration use. HEENT: Shows Pallor , no scleral icterus. Oral mucous membrane is dry. No pharyngeal erythema or thrush NECK: Trachea central, no thyromegaly. LUNGS: Unlabored breathing. Clear to auscultation anteriorly. No wheeze or crackle. HEART: S1, S2, regular rate and rhythm. No loud murmur ABDOMEN: Soft, no tenderness , guarding or rigidity, no organomegaly EXTREMITIES: No edema of feet. SKIN: No rash, no masses palpable. NEUROLOGICAL: The patient is awake, alert, oriented x2, mood and affect normal. Results CBC & Chem 7: 04/15/21 14:17 04/15/21 14:17 Labs: Abnormal Lab Results - Last 24 Hours (Table) 04/15/21 04/15/21 04/15/21 Range/Units 14:17 14:17 14:17 RBC 3.73 L (3.80-5.40) m/uL Hgb 10.5 L (11.4-16.0) gm/dL Hct 32.0 L (34.0-46.0) % RDW 16.0 H (11.5-15.5) % Lymphocytes # 0.6 L (1.0-4.8) k/uL Monocytes # 1.8 H (0-1.0) k/uL Sodium 136 L (137-145) mmol/L Potassium 3.3 L (3.5-5.1) mmol/L Carbon Dioxide 20 L (22-30) mmol/L Creatinine 0.47 L (0.52-1.04) mg/dL Glucose 151 H (74-99) mg/dL Creatine Kinase 28 L (30-135) U/L Total Protein 5.6 L (6.3-8.2) g/dL Albumin 3.3 L (3.5-5.0) g/dL Urine Appearance Cloudy H (Clear) Urine Protein Trace H (Negative) Urine Glucose (UA) 4+ H (Negative) Urine Ketones Trace H (Negative) Ur Leukocyte Esterase Large H (Negative) Urine WBC 91 H (0-5) /hpf Urine Mucus Rare H (None) /hpf Assessment and Plan Assessment: 1-patient presented to hospital with confusion and weakness in this patient who did have a fever at home high clinical suspicious for symptomatic urinary tract infection and concern for possible colovesical fistula on the basis of recent cystoscopy, last urine culture positive for Citrobacter that was resistant to Fo rtaz and Klebsiella pneumoniae 2-Patient with multiple antibiotic ALLERGIES that would limit the number of antibiotic safe to use Plan: 1-patient will benefit from CT of abdominal pelvis to rule out colovesical fistula 2-continue with the meropenem for now on the basis of her multiple antibiotic ALLERGIES and sensitivity of last urine culture 3-gentle IV fluid We will follow on clinical condition and cultures to further adjust medication if needed Thank you for this consultation will follow this patient with you Time with Patient: Greater than 30
--- NOTE | 2021-04-15 22:34 | P.HPIM ---
History of Present Illness H&P Date: 04/15/21 Chief Complaint: Sepsis and UTI, chronic pain syndrome, HISTORY OF PRESENT ILLNESS 81-year-old female with multiple medical problem who was one of Dr. Rocha patient is known to have factor V Leiden Yoshi deficiency, type 2 diabetes, non-Hodgkin's lymphoma, severe compression and bulging disc involving 3 lumbar spine vertebrae which patient has been seen Dr. Nathan and had surgical intervention in the past. Patient had severe abnormal mobility balance and gait ended up in the [facility] for a few weeks every time she is hospital [facility]. Patient was hospitalized at [facility] 03/29/2021 because of hypoxia and aspiration pneumonia was the hospital to the 15 she become very debilitated not been able template and walk and decided the best option course to have patient go to [facility] on the [place] [facility]. Patient has been there for the last few days she developed to have worsening symptoms with fever, chills, altered mental status with worsening lower abdominal pain and discomfort patient was not acting herself noticed by [facility] staff will call Dr. Avelar and have patient transferred to [facility] department at [facility] with temperature of 101 at the time slightly elevated white blood cell. 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 Patient was post to see general surgery and plan to do surgical correction at some point. After presentation to [facility] patient was not acting herself initially more confused mildly hypotensive remain anemic no major abnormality with electrolyte imbalance. UA can was very positive at this time patient be started on Zosyn. The IV. REVIEW OF SYSTEMS Constitutional: No fever, no chills, no night sweats. No weight change. Pos itive generalized fatigue tiredness lethargy and slight sleepy. They time. EENT: No headache. No blurred vision or double vision, no loss of vision. No loss of Hearing, no ringing in the ears, no dizziness. No nasal drainage or congestion. No epistaxis. No sore throat. Lungs: Slight shortness of breath mild cough mild wheezes. Cardiovascular: No chest pain or angina continue to have mild arrhythmia on and off mild PND and shortness of breath with exertion.. Abdominal: No abdominal pain. No nausea, vomiting. No diarrhea. No constipation. No bloody or tarry stools.. No loss of appetite. 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 Musculoskeletal: No myalgias. No muscle weakness, no gait dysfunction, no frequent falls. No back pain. No neck pain. Integumentary: No wounds, no lesions. No rash or pruritus. No unusual bruising. No change in hair or nails. Neurologic: No aphasia. No facial droop. No change in mentation. No head injury. No headache. No paralysis. No paresthesia. Psychiatric: No depression. No anxiety. No mood swings. Endocrine: No abnormal blood sugars. No weight change. No excessive sweating or thirst. No cold intolerance. SOCIAL HISTORY Patient does not smoke does not use marijuana she lives alone with her granddaughter check ambulate with no help. FAMILY HISTORY [Her mother dying her late 80 from breast cancer dementia, father age 32 from pulmonary embolism, patient had 2 brothers 1 past from the cardiac infarc tion and one from pulmonary embolism. She still have 2 living brother one had lung cancer and one living with brother with brain aneurysm. Patient had 5 biological children with no major medical problem. PHYSICAL EXAMINATION Gen: This is a 81-year-old elderly will ask although than her age look very pale still slightly but confused but able to answer her question without any intervention. HEENT: Head is atraumatic, normocephalic. Pupils equal, round. Positive slight jaundice. NECK: Supple. No JVD. No lymphadenopathy. No thyromegaly. LUNGS: Decreased breath some bilaterally with fine rhonchi mild expiratory wheezes. HEART: Irregular rate and rhythm. No murmur. ABDOMEN: Soft. Bowel sounds are present. No masses. Slight discomfort left lower quadrant area and right lower quadrant area as well with positive pulse. EXTREMITIES: No pedal edema. No calf tenderness. NEUROLOGICAL: Patient is awake, alert and oriented x3. Cranial nerves 2 through 12 are grossly intact. ASSESSMENT AND PLAN 1.[1 metabolic encephalopathy: Most likely from UTI with worsening symptoms lately, blood and urine culture be done we will be starting patient on empiric antibiotics was started on Zosyn initially continue management. 2 recurrent urinary tract infection: Patient is having multiple episodes closer to each other continue to watch symptoms closely and treat patient is that more aggressively every time. 3 chronic pain syndrome: Has been on gabapentin and hydrocodone. 4 hypothyroidism: Continue patient on levothyroxin 12.5 g daily. 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 6 type 2 diabetes: Continue on Tradjenta and Humalog per sliding scales coverage and still on Synjardy/Metformin mg daily. 7 severe neuropathy: Remain on gabapentin. 8 chronic back pain post surgery and pain management continue on hydrocodone and muscle relaxer. 9 severe PAD with arterial thrombosis post subclavian surgery patient was kept on Eliquis and Plavix. 10 chronic depression: Has been on Cymbalta 30 mg a day. 11 A. fib with RVR: Pulse rates under control on diltiazem and atenolol continue Eliquis as well. 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 13 GI prophylaxis: Remain on omeprazole 20 mg a day. 14 DVT prophylaxis: Continue Eliquis. 11. COVID-19 testing was negative. Patient will be admitted to the hospital for a minimum of 2 night stay. 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 History of Any Multi-Drug Resistant Organisms: None Reported Past Surgical History: Appendectomy, Back Surgery, Bladder Surgery, Breast Surgery, Cholecystectomy, Hysterectomy, Joint Replacement, Orthopedic Surgery, Tonsillectomy Additional Past Surgical History / Comment(s): 12/2020 PTBA with stent R brachial/cephalic artery, cervical fusion, lumbar laminectomy, R hip repair, bilateral thumbs/rods, R 3rd toe nathaniel, bilateral total knee arthroplasties, pain clinic procedures, R femur biopsy, D&Cs, bladder suspension, EGD, colonoscopies, L breast biopsy/axilary bx, bilateral cataract removals. Past Anesthesia/Blood Transfusion Reactions: No Reported Reaction Additional Past Anesthesia/Blood Transfusion Reaction / Comment(s): CLAUSTROPHOBIA Past Psychological History: Anxiety, Depression Smoking Status: Never smoker Past Alcohol Use History: None Reported Past Drug Use History: None Reported - Past Family History Father Family Medical History: Deep Vein Thrombosis (DVT), Pulmonary Embolus Additional Family Medical History / Comment(s): Father at age 32 from pulmonary embolism. Mother Family Medical History: Cancer Additional Family Medical History / Comment(s): breast Brother(s) Family Medical History: Cancer, CVA/TIA, Deep Vein Thrombosis (DVT), Myocardial Infarction ([place]), Pulmonary Embolus, Vascular Disorder Additional Family Medical History / Comment(s): 2 brothers that have passed one from myocardial infarction and one from pulmonary embolism. 2 brothers are alive and one has lung cancer, one brother is alive with a brain aneurysm and CVA. Medications and Allergies Home Medications Medication Instructions Recorded Confirmed Type Calcium Carb-Vit D 500Mg-5Mcg 1 tab PO DAILY@89901/05/14 04/15/21 History [Oscal 500+D 5 Mcg (200 Iu)] allopurinoL [Zyloprim] 100 mg PO DAILY@89901/05/14 04/15/21 History Levothyroxine Sodium [Synthroid] 12.5 mcg PO HS@209903/16/14 04/15/21 History Ipratropium [place] 0.06%Nasal 2 spr EA NOSTRIL BID@899,209907/03/20 04/15/21 History [Atrovent Nasal 0.06%] Apixaban [Eliquis] 5 mg PO BID@899,209910/06/20 04/15/21 History DULoxetine HCL [Cymbalta] 60 mg PO HS@209912/17/20 04/15/21 History Estradiol Cream [Estrace Cream 1 gm VAGINAL SUTH@209912/17/20 04/15/21 History 0.01%] Atorvastatin [Lipitor] 40 mg PO HS@209912/27/20 04/15/21 History Loperamide [Imodium] 2 mg PO Q8H PRN 12/30/20 04/15/21 History Psyllium Husk (with Sugar) 6 gm PO BID@899,209902/13/21 04/15/21 History [Metamucil Powder] DULoxetine HCL [Cymbalta] 30 mg PO HS@209902/28/21 04/15/21 History Baclofen [Lioresal] 10 mg PO TID PRN tab 03/03/21 04/15/21 Rx Acetaminophen Tab [Tylenol] 650 mg PO Q4H PRN 03/29/21 04/15/21 History Clopidogrel [Plavix] 75 mg PO HS@209903/29/21 04/15/21 History Empagliflozin/Metformin HCl 1 tab PO DAILY@89903/29/21 04/15/21 History [Synjardy Xr 25-1,000 mg Tablet] Insulin Lispro [humaLOG Kwikpen] See Protocol SQ ACHS 03/29/21 04/15/21 History Linagliptin [Tradjenta] 5 mg PO DAILY@89903/29/21 04/15/21 History rOPINIRole HCL [Requip] 4 mg PO HS@209903/29/21 04/15/21 History HYDROcodone/APAP 10-325MG [[place] 1 tab PO BID PRN #6 tab 04/01/21 04/15/21 Rx 10-325] Fludrocortisone Acetate 0.1 mg PO DAILY@89904/15/21 04/15/21 History Gabapentin 600 mg PO TID@0600,1400,2200 04/15/21 04/15/21 History Mag Hydrox/Aluminum Hyd/Simeth 10 ml PO Q4H PRN 04/15/21 04/15/21 History [Mylanta Maximum Strength Liq] Midodrine [ProAmatine] 10 mg PO TID@0700,1100,1600 04/15/21 04/15/21 History Omeprazole 20 mg PO DAILY PRN 04/15/21 04/15/21 History Temazepam [Restoril] 15 mg PO HS@209904/15/21 04/15/21 History Trihexyphenidyl [Artane] 1 mg PO DAILY@89904/15/21 04/15/21 History atenoloL [Tenormin] 12.5 mg PO DAILY@0900 04/15/21 04/15/21 History dilTIAZem HCL 30 mg PO TID@0900,1300,2100 04/15/21 04/15/21 History Allergies Allergy/AdvReac Type Severity Reaction Status Date / Time adhesive Allergy red skin, Verified 04/15/21 14:39 blisters cefaclor [From Ceclor] Allergy Rash/Hives Verified 04/15/21 14:39 ciprofloxacin [From Cipro] Allergy Rash/Hives Verified 04/15/21 14:39 ciprofloxacin HCl Allergy Rash/Hives Verified 04/15/21 14:39 [From Cipro] hydromorphone HCl Allergy Anaphylaxis Verified 04/15/21 14:39 [From Dilaudid] Penicillins Allergy Rash/Hives Verified 04/15/21 14:39 clindamycin AdvReac Nausea & Verified 04/15/21 14:39 Vomiting sulfamethoxazole AdvReac Abdominal Verified 04/15/21 14:39 [From Bactrim] Pain trimethoprim [From Bactrim] AdvReac Abdominal Verified 04/15/21 14:39 Pain Physical Exam Vitals: Vital Signs Temp Pulse Resp BP Pulse Ox 04/15/21 18:17 98 F 132 H 18 130/83 04/15/21 16:17 98.4 F 130 H 18 143/82 96 04/15/21 13:55 99.7 F H 130 H 18 127/83 97 Intake and Output 04/15/21 04/15/21 04/15/21 06:59 14:59 22:59 Other: Weight 58.967 kg Results CBC & Chem 7: 04/15/21 14:17 04/15/21 14:17 Labs: Abnormal Lab Results - Last 24 Hours (Table) 04/15/21 04/15/21 04/15/21 Range/Units 14:17 14:17 14:17 RBC 3.73 L (3.80-5.40) m/uL Hgb 10.5 L (11.4-16.0) gm/dL Hct 32.0 L (34.0-46.0) % RDW 16.0 H (11.5-15.5) % Lymphocytes # 0.6 L (1.0-4.8) k/uL Monocytes # 1.8 H (0-1.0) k/uL Sodium 136 L (137-145) mmol/L Potassium 3.3 L (3.5-5.1) mmol/L Carbon Dioxide 20 L (22-30) mmol/L Creatinine 0.47 L (0.52-1.04) mg/dL Glucose 151 H (74-99) mg/dL Creatine Kinase 28 L (30-135) U/L Total Protein 5.6 L (6.3-8.2) g/dL Albumin 3.3 L (3.5-5.0) g/dL Urine Appearance Cloudy H (Clear) Urine Protein Trace H (Negative) Urine Glucose (UA) 4+ H (Negative) Urine Ketones Trace H (Negative) Ur Leukocyte Esterase Large H (Negative) Urine WBC 91 H (0-5) /hpf Urine Mucus Rare H (None) /hpf
[2021-04-15] MEDS: TEMAZEPAM 15 MG CAP PO SCH (22:36)
[2021-04-15] MEDS: LEVOTHYROXINE 25 MCG TAB PO SCH (22:36)
[2021-04-15] MEDS: rOPINIRole HCL 4 MG TABLET PO SCH (22:36)
[2021-04-15] MEDS: IPRATROPIUM BROMIDE 0.06% NASAL SPRAY (15 ML) EA NOSTRIL SCH (22:37)
[2021-04-15] MEDS: DILTIAZEM ORAL 30 MG TAB PO SCH (22:56)
[2021-04-15] MEDS ORDERED: DILTIAZEM 125 MG in SODIUM CHLORIDE 0.9% 100 ML IV SCH (23:15)
[2021-04-15] MEDS ORDERED: DILTIAZEM DRIP BOLUS FROM BAG 1 MG SOLN IV STA (23:15)
[2021-04-16] MEDS: HYDROcodone/APAP 10-325MG 1 EACH TAB PO PRN ×2 (00:53→17:57)
[2021-04-16] MEDS: MEROPENEM 1 GM in SODIUM CHLORIDE 0.9% 100 ML IVPB SCH ×3 (00:54→18:01)
[2021-04-16] MEDS: SODIUM CHLORIDE 0.9% 1,000 ML IV SCH ×3 (00:54→13:22)
[2021-04-16 06:29] LABS: Glucose,Whole Blood 166 mg/dL (75-99)
[2021-04-16] MEDS: MIDODRINE 5 MG TAB PO SCH ×3 (06:35→16:00)
[2021-04-16] MEDS: GABAPENTIN 300 MG CAP PO SCH ×3 (06:35→20:24)
[2021-04-16] MEDS: PSYLLIUM HUSK 100% 6 GM PACKET PO SCH ×3 (09:00→20:24)
[2021-04-16] MEDS: IPRATROPIUM BROMIDE 0.06% NASAL SPRAY (15 ML) EA NOSTRIL SCH ×2 (09:00→20:57)
[2021-04-16] MEDS ORDERED: MEROPENEM 1 GM in SODIUM CHLORIDE 0.9% 100 ML IVPB SCH (09:00)
[2021-04-16] MEDS: ACETAMINOPHEN TAB 325 MG TAB PO PRN (09:04)
[2021-04-16] MEDS: allopurinoL 100 MG TAB PO SCH (09:05)
[2021-04-16] MEDS: CALCIUM CARB-VIT D 500 MG-5 MCG TAB PO SCH (09:05)
[2021-04-16] MEDS: TRIHEXYPHENIDYL 2 MG TAB PO SCH (09:05)
[2021-04-16] MEDS: DILTIAZEM ORAL 30 MG TAB PO SCH ×2 (09:05→13:21)
[2021-04-16] MEDS: LINAGLIPTIN 5 MG TABLET PO SCH (09:06)
[2021-04-16] MEDS: FLUDROCORTISONE 0.1 MG TAB PO SCH (09:06)
[2021-04-16] MEDS: APIXABAN 5 MG TAB PO SCH ×2 (09:06→20:25)
[2021-04-16] MEDS: EMPAGLIFLOZIN PO SCH (09:07)
[2021-04-16] MEDS: METFORMIN HCL PO SCH (09:07)
--- NOTE | 2021-04-16 11:52 | P.CRDCN ---
History of Present Illness History of present illness: HISTORY OF PRESENTING ILLNESS This is a pleasant 81-year-old female past medical history significant for hypertension, dyslipidemia, diabetes mellitus, CVA, sinus tachycardia, elis pheral vascular disease and history of PE/DVT with factor V. She follows in the office with Dr. Pak. We have been asked to see in consultation for sinus tachycardia. She presented to the hospital with family secondary to increasing confusion and weakness. She was found to have a urinary tract infection. Initial EKG on admission revealed sinus tachycardia heart rate 132 with incomplete right bundle branch block. Through the night she went into SVT rates 180-200. An A- team was called and she was transferred to with a cardizem gtt ordered. She has been back in the 100-120 range since initiation. Currently SR 106. She denies chest pain, shortness of breath, dizziness or palpitations. She is complaining of a headache and left leg pain. She is currently wearing an event monitor from the office that Dr. Pak applied in the office. Chest x-ray is negative for an acute cardiopulmonary process. CT brain/c-spine negative for an acute intracranial abnormalities. Laboratory data reviewed, WBC 8.6, hgb 10.5, plt 275, sodium 136, potassium 3.3, creatinine 0.47, magnesium 1.8, troponin negative x1, NTproBNP 463. Current cardiac medications include atenolol 12.5 mg daily, Plavix 75 mg daily, atorvastatin 40 mg daily, Eliquis 5 mg twice a day and Cardizem 30 mg 3 times a day. Most recent echocardiogram obtained January 2021 reveals preserved LV systolic function with ejection fraction 55-60%, mild aortic stenosis with a mean gradient of 13 mmHg. REVIEW OF SYSTEMS At the time of my exam: CONSTITUTIONAL: Denies fever or chills. CARDIOVASCULAR: Denies chest pain, shortness of breath, orthopnea, PND or palpitations. RESPIRATORY: Denies cough. GASTROINTESTINAL: Denies abdominal pain, diarrhea, constipation, nausea or vomiting. MUSCULOSKELETAL: Denies myalgias. NEUROLOGIC: Complains of headache. Denies numbness, tingling, headache or weakness. ENDOCRINE: Denies fatigue, weight change, polydipsia or polyurina. GENITOURINARY: Denies burning, hematuria or urgency with micturation. HEMATOLOGIC: Denies history of anemia or bleeding. PHYSICAL EXAMINATION Blood pressure 110/64 heart rate 106 afebrile and maintaining oxygen saturation on nasal cannula. CONSTITUTIONAL: No apparent distress. HEENT: Head is normocephalic. Pupils are equal, round. Sclerae anicteric. Mucous membranes of the mouth are moist. No JVD. No carotid bruit. CHEST EXAMINATION: Lungs are clear to auscultation. No chest wall tenderness is noted on palpation or with deep breathing. HEART EXAMINATION: Regular rate and rhythm. S1, S2 heard. Systolic ejection murmur at the base, no gallops or rub. ABDOMEN: Soft, nontender. EXTREMITIES: 2+ peripheral pulses, no lower extremity edema and no calf tenderne ss. NEUROLOGIC EXAMINATION: Patient is awake, alert and oriented x3. ASSESSMENT Sinus tachycardia Urinary tract infection Hypokalemia Diabetes mellitus Hypertension Dyslipidemia PLAN Discontinue cardizem infusion. Continue PO cardizem and atenolol. Increase as tolerated. Ongoing telemetry monitoring. Sinus tachycardia somewhat expected due to infectious process. Thank you kindly for this consultation. Nurse Practitioner note has been reviewed, I agree with a documented findings and plan of care. Patient was seen and examined. 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 History of Any Multi-Drug Resistant Organisms: None Reported Past Surgical History: Appendectomy, Back Surgery, Bladder Surgery, Breast Surgery, Cholecystectomy, Hysterectomy, Joint Replacement, Orthopedic Surgery, Tonsillectomy Additional Past Surgical History / Comment(s): 12/2020 PTBA with stent R bra chial/cephalic artery, cervical fusion, lumbar laminectomy, R hip repair, bilateral thumbs/rods, R 3rd toe nathaniel, bilateral total knee arthroplasties, pain clinic procedures, R femur biopsy, D&Cs, bladder suspension, EGD, colonoscopies, L breast biopsy/axilary bx, bilateral cataract removals. Past Anesthesia/Blood Transfusion Reactions: No Reported Reaction Additional Past Anesthesia/Blood Transfusion Reaction / Comment(s): CLAUSTROPHOBIA Past Psychological History: Anxiety, Depression Additional Psychological History / Comment(s): Pt resides with her aminah, Luciana. She uses a walker to ambulate. She no longer drives, family can take her to [employer]. Luciana assists pt with medications, pt is fairly independent. Smoking Status: Never smoker Past Alcohol Use History: None Reported Additional Past Alcohol Use History / Comment(s): . Past Drug Use History: None Reported - Past Family History Father Family Medical History: Deep Vein Thrombosis (DVT), Pulmonary Embolus Additional Family Medical History / Comment(s): Father at age 32 from pulmonary embolism. Mother Family Medical History: Cancer Additional Family Medical History / Comment(s): breast Brother(s) Family Medical History: Cancer, CVA/TIA, Deep Vein Thrombosis (DVT), Myocardial Infarction (NM), Pulmonary Embolus, Vascular Disorder Additional Family Medical History / Comment(s): 2 brothers that have passed one from myocardial infarction and one from pulmonary embolism. 2 brothers are alive and one has lung cancer, one brother is alive with a brain aneurysm and CVA. Medications and Allergies Home Medications Medication Instructions Recorded Confirmed Type Calcium Carb-Vit D 500Mg-5Mcg 1 tab PO DAILY@89901/05/14 04/15/21 History [Oscal 500+D 5 Mcg (200 Iu)] allopurinoL [Zyloprim] 100 mg PO DAILY@89901/05/14 04/15/21 History Levothyroxine Sodium [Synthroid] 12.5 mcg PO HS@209903/16/14 04/15/21 History Ipratropium [place] 0.06%Nasal 2 spr EA NOSTRIL BID@0900,209907/03/20 04/15/21 History [Atrovent Nasal 0.06%] Apixaban [Eliquis] 5 mg PO BID@00,209910/06/20 04/15/21 History DULoxetine HCL [Cymbalta] 60 mg PO HS@209912/17/20 04/15/21 History Estradiol Cream [Estrace Cream 1 gm VAGINAL SUTH@209912/17/20 04/15/21 History 0.01%] Atorvastatin [Lipitor] 40 mg PO HS@209912/27/20 04/15/21 History Loperamide [Imodium] 2 mg PO Q8H PRN 12/30/20 04/15/21 History Psyllium Husk (with Sugar) 6 gm PO BID@899,209902/13/21 04/15/21 History [Metamucil Powder] DULoxetine HCL [Cymbalta] 30 mg PO HS@209902/28/21 04/15/21 History Baclofen [Lioresal] 10 mg PO TID PRN tab 03/03/21 04/15/21 Rx Acetaminophen Tab [Tylenol] 650 mg PO Q4H PRN 03/29/21 04/15/21 History Clopidogrel [Plavix] 75 mg PO HS@209903/29/21 04/15/21 History Empagliflozin/Metformin HCl 1 tab PO DAILY@89903/29/21 04/15/21 History [Synjardy Xr 25-1,000 mg Tablet] Insulin Lispro [humaLOG Kwikpen] See Protocol SQ ACHS 03/29/21 04/15/21 History Linagliptin [Tradjenta] 5 mg PO DAILY@89903/29/21 04/15/21 History rOPINIRole HCL [Requip] 4 mg PO HS@209903/29/21 04/15/21 History HYDROcodone/APAP 10-325MG [[place] 1 tab PO BID PRN #6 tab 04/01/21 04/15/21 Rx 10-325] Fludrocortisone Acetate 0.1 mg PO DAILY@89904/15/21 04/15/21 History Gabapentin 600 mg PO TID@0600,1400,2200 04/15/21 04/15/21 History Mag Hydrox/Aluminum Hyd/Simeth 10 ml PO Q4H PRN 04/15/21 04/15/21 History [Mylanta Maximum Strength Liq] Midodrine [ProAmatine] 10 mg PO TID@0700,1100,1600 04/15/21 04/15/21 History Omeprazole 20 mg PO DAILY PRN 04/15/21 04/15/21 History Temazepam [Restoril] 15 mg PO HS@2100 04/15/21 04/15/21 History Trihexyphenidyl [Artane] 1 mg PO DAILY@0900 04/15/21 04/15/21 History atenoloL [Tenormin] 12.5 mg PO DAILY@0900 04/15/21 04/15/21 History dilTIAZem HCL 30 mg PO TID@0900,1300,2100 04/15/21 04/15/21 History Allergies Allergy/AdvReac Type Severity Reaction Status Date / Time adhesive Allergy red skin, Verified 04/15/21 14:39 blisters cefaclor [From Ceclor] Allergy Rash/Hives Verified 04/15/21 14:39 ciprofloxacin [From Cipro] Allergy Rash/Hives Verified 04/15/21 14:39 ciprofloxacin HCl Allergy Rash/Hives Verified 04/15/21 14:39 [From Cipro] hydromorphone HCl Allergy Anaphylaxis Verified 04/15/21 14:39 [From Dilaudid] Penicillins Allergy Rash/Hives Verified 04/15/21 14:39 clindamycin AdvReac Nausea & Verified 04/15/21 14:39 Vomiting sulfamethoxazole AdvReac Abdominal Verified 04/15/21 14:39 [From Bactrim] Pain trimethoprim [From Bactrim] AdvReac Abdominal Verified 04/15/21 14:39 Pain Physical Exam Vitals: Vital Signs Temp Pulse Pulse Resp BP BP Pulse Ox 04/16/21 08:00 98.4 F 106 H 18 110/64 96 04/16/21 03:10 98.9 F 124 H 19 104/70 99 04/16/21 00:59 97/65 04/16/21 00:20 197 H 18 100/60 98 04/15/21 20:00 98.3 F 132 H 22 113/68 96 04/15/21 18:17 98 F 132 H 18 130/83 04/15/21 16:17 98.4 F 130 H 18 143/82 96 04/15/21 13:55 99.7 F H 130 H 18 127/83 97 Intake and Output 04/15/21 04/16/21 04/16/21 22:59 06:59 14:59 Intake Total 240 Output Total 600 Balance -600 240 Intake: Oral 240 Output: Urine 600 Other: Voiding Method Bedpan Bedpan External Catheter External Catheter # Voids 2 # Bowel Movements 1 1 # Emeses 0 Weight 47 kg Results 04/15/21 14:17 04/15/21 14:17 Cardiac Enzymes 04/15/21 04/15/21 Range/Units 14:17 14:17 AST 22 (14-36) U/L Troponin I <0.012 (0.000-0.034) ng/mL Coagulation 04/15/21 Range/Units 14:17 PT 10.9 (9.0-12.0) sec APTT 25.6 (22.0-30.0) sec CBC 04/15/21 Range/Units 14:17 WBC 8.6 (3.8-10.6) k/uL RBC 3.73 L (3.80-5.40) m/uL Hgb 10.5 L (11.4-16.0) gm/dL Hct 32.0 L (34.0-46.0) % Plt Count 275 D (150-450) k/uL Comprehensive Metabolic Panel 04/15/21 Range/Units 14:17 Sodium 136 L (137-145) mmol/L Potassium 3.3 L (3.5-5.1) mmol/L Chloride 107 (98-107) mmol/L Carbon Dioxide 20 L (22-30) mmol/L BUN 8 (7-17) mg/dL Creatinine 0.47 L (0.52-1.04) mg/dL Glucose 151 H (74-99) mg/dL Calcium 9.2 (8.4-10.2) mg/dL AST 22 (14-36) U/L ALT 11 (4-34) U/L Alkaline Phosphatase 109 (38-126) U/L Total Protein 5.6 L (6.3-8.2) g/dL Albumin 3.3 L (3.5-5.0) g/dL Current Medications Generic Name Dose Route Start Last Admin Trade Name Freq PRN Reason Stop Dose Admin Acetaminophen 650 mg 04/15/21 21:03 04/16/21 09:04 Acetaminophen Tab 325 Mg Tab PO 650 mg Q4H PRN Administration Pain Hydrocodone Bitart/Acetaminophen 1 each 04/15/21 21:03 04/16/21 00:53 Hydrocodone/Apap 10-325mg 1 Each Tab PO 1 each BID PRN Administration Pain Al Hydroxide/Mg Hydroxide 10 ml 04/15/21 21:03 Mag Hydrox/Al Hydrox/Simeth 30 Ml Cup PO Q4H PRN Indigestion Allopurinol 100 mg 04/16/21 09:00 04/16/21 09:05 Allopurinol 100 Mg Tab PO 100 mg DAILY@0900 [facility] Administration Apixaban 5 mg 04/16/21 09:00 04/16/21 09:06 Apixaban 5 Mg Tab PO 5 mg BID@0900,2099 [facility] Administration Protocol Atenolol 12.5 mg 04/16/21 09:00 04/16/21 09:06 Atenolol 12.5 Mg Tab PO 12.5 mg DAILY@0900 S[facility]OS Administration Atorvastatin Calcium 40 mg 04/16/21 21:00 Atorvastatin 40 Mg Tab PO HS@2100 [facility] Baclofen 10 mg 04/15/21 21:03 Baclofen 10 Mg Tab PO TID PRN Muscle Spasm Calcium Carbonate 1 each 04/16/21 09:00 04/16/21 09:05 Calcium Carb-Vit D 500 Mg-5 Mcg Tab PO 1 each DAILY@0900 [facility] Administration Clopidogrel Bisulfate 75 mg 04/16/21 21:00 Clopidogrel 75 Mg Tab PO HS@2100 [facility] Diltiazem HCl 30 mg 04/15/21 22:30 04/16/21 09:05 Diltiazem Oral 30 Mg Tab PO 30 mg TID@0900,1300,2100 [facility] Administration Duloxetine HCl 30 mg 04/16/21 21:00 Duloxetine Hcl 30 Mg Capsule. PO HS@2100 [facility] Duloxetine HCl 60 mg 04/16/21 21:00 Duloxetine Hcl 60 [address].Dr DE LOS SANTOS HS@2100 [facility] Estradiol 1 applic 04/17/21 21:00 Estradiol 0.1 Mg/Gm Vaginal Cream 42.5 Gm Tube VAGINAL SUTH@2100 [facility] Fludrocortisone Acetate 0.1 mg 04/16/21 09:00 04/16/21 09:06 Fludrocortisone 0.1 Mg Tab PO 0.1 mg DAILY@0900 [facility] Administration Gabapentin 600 mg 04/15/21 22:00 04/16/21 06:35 Gabapentin 300 Mg Cap PO 600 mg TID@0600,1400,2200 [facility] Administration Sodium Chloride 1,000 mls @ 130 mls/hr 04/15/21 17:00 04/16/21 00:54 Saline 0.9% IV 130 mls/hr .Q7H42M [facility] Administration Meropenem 1 gm/ Sodium 100 mls @ 33.3 mls/hr 04/16/21 02:00 04/16/21 00:54 Chloride IVPB 33.3 mls/hr Q8H [facility] Administration Protocol Ipratropium [place] 2 spray 04/15/21 21:00 04/15/21 22:37 Ipratropium [place] 0.06% Nasal [place] (15 Ml) EA NOSTRIL 2 spray BID@899,2099 [facility] Administration Levothyroxine Sodium 12.5 mcg 04/15/21 21:30 04/15/21 22:36 Levothyroxine 25 Mcg Tab PO 12.5 mcg HS@2100 [facility] Administration Linagliptin 5 mg 04/16/21 09:00 04/16/21 09:06 Linagliptin 5 Mg Tablet PO 5 mg DAILY@0900 [facility] Administration Loperamide HCl 2 mg 04/15/21 21:03 Loperamide 2 Mg Cap PO Q8H PRN Loose Stool Midodrine 10 mg 04/16/21 07:00 04/16/21 06:35 Midodrine 5 Mg Tab PO 10 mg TID@0700,1100,1600 [facility] Administration Naloxone HCl 0.2 mg 04/15/21 16:56 Naloxone 0.4 Mg/Ml 1 Ml Vial IV Q2M PRN Opioid Reversal Patient's Home ( 1 tab 04/16/21 09:00 04/16/21 09:07 Empagliflozin/ PO Not Given Metformin Hcl [ DAILY@0900 [facility] Synjardy Xr 25-1,000 Mg Tablet] 1 Each Ta Pantoprazole Sodium 40 mg 04/15/21 21:03 Pantoprazole 40 Mg Tablet PO DAILY PRN GERD Psyllium Hydrophilic Mucilloid 6 gm 04/15/21 21:30 04/15/21 22:31 Psyllium Husk 100% 6 Gm Packet PO Not Given BID@0900,2100 [facility] Ropinirole HCl 4 mg 04/15/21 21:00 04/15/21 22:36 Ropinirole Hcl 4 Mg Tablet PO 4 mg HS@2100 [facility] Administration Temazepam 15 mg 04/15/21 21:30 04/15/21 22:36 Temazepam 15 Mg Cap PO 15 mg HS@2100 [facility] Administration Trihexyphenidyl HCl 1 mg 04/16/21 09:00 04/16/21 09:05 Trihexyphenidyl 2 Mg Tab PO 1 mg DAILY@0900 [facility] Administration Intake and Output 04/15/21 04/16/21 04/16/21 22:59 06:59 14:59 Intake Total 240 Output Total 600 Balance -600 240 Intake: Oral 240 Output: Urine 600 Other: Voiding Method Bedpan Bedpan External Catheter External Catheter # Voids 2 # Bowel Movements 1 1 # Emeses 0 Weight 47 kg 04/15/21 14:17 04/15/21 14:17
[2021-04-16 12:16] LABS: Glucose,Whole Blood 162 mg/dL (75-99)
--- NOTE | 2021-04-16 14:01 | P.PN ---
Subjective Progress Note Date: 04/16/21 HISTORY OF PRESENT ILLNESS 81-year-old female with multiple medical problem who was one of Dr. Rocha patient is known to have factor V Leiden Yoshi deficiency, type 2 diabetes, non- Hodgkin's lymphoma, severe compression and bulging disc involving 3 lumbar spine vertebrae which patient has been seen Dr. Nathan and had surgical intervention in the past. Patient had severe abnormal mobility balance and gait ended up in [facility] a few weeks every time she is hospitalized. Patient was hospitalized at [facility] 03/29/2021 because of hypoxia and aspiration pneumonia was the hospital to the 15 she become very debilitated not been able template and walk and decided the best option course to have patient go to [facility] the [facility]. Patient has been there for the last few days she developed to have worsening symptoms with fever, chills, altered mental status with worsening lower abdominal pain and discomfort patient was not acting herself noticed by [facility] staff will call Dr. Avelar and have patient transferred to [facility] department at [facility] with temperature of 101 at the time slightly elevated white blood cell. 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 Patient was post to see general surgery and plan to do surgical correction at some point. After presentation to [facility] patient was not acting herself initially more confused mildly hypotensive remain anemic no major abnormality with electrolyte imbalance. UA can was very positive at this time patient be started on Zosyn. The IV. 04/16: Patient had heart rate up to 197 then 124, Cardizem drip was started and subsequently discontinued. ekg monitor tech was sinus tachycardia. She is now running at 102, blood pressure 103/64, pulse ox 95% on 3 L nasal cannula. Patient has been afebrile. Blood sugars are running between 134 and 166. Urine culture is in progress. Patient has been seen by cardiology and recommended oral Cardizem and atenolol. Patient has been seen by Dr. Lee with recommendations to continue meropenem. Dr. Flores is also in place. REVIEW OF SYSTEMS Constitutional: No fever, no chills, no night sweats. No weight change. Positive generalized fatigue tiredness lethargy and slight sleepy. They time. EENT: No headache. No blurred vision or double vision, no loss of vision. No loss of Hearing, no ringing in the ears, no dizziness. No nasal drainage or congestion. No epistaxis. No sore throat. Lungs: Slight shortness of breath mild cough mild wheezes. Cardiovascular: No chest pain or angina continue to have mild arrhythmia on and off mild PND and shortness of breath with exertion. Abdominal: No abdominal pain. No nausea, vomiting. No diarrhea. No constipation. No bloody or tarry stools.. Mild loss of appetite. 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 Musculoskeletal: No myalgias. No muscle weakness, no gait dysfunction, no frequent falls. No back pain. No neck pain. Integumentary: No wounds, no lesions. No rash or pruritus. No unusual bruising. No change in hair or nails. Neurologic: No aphasia. No facial droop. mild change in mentation. No head injury. No headache. No paralysis. No paresthesia. Psychiatric: No depression. No anxiety. No mood swings. Endocrine: No abnormal blood sugars. No weight change. No excessive sweating or thirst. No cold intolerance. PHYSICAL EXAMINATION Gen: This is a 81-year-old elderly will ask although than her age look very pale still slightly but confused but able to answer her question without any intervention. HEENT: Head is atraumatic, normocephalic. Pupils equal, round. Positive slight jaundice. NECK: Supple. No JVD. No lymphadenopathy. No thyromegaly. LUNGS: Decreased breath some bilaterally with fine rhonchi mild expiratory wheezes. HEART: Irregular rate and rhythm. No murmur. ABDOMEN: Soft. Bowel sounds are present. No masses. Slight discomfort left lower quadrant area and right lower quadrant area as well with positive pulse. EXTREMITIES: No pedal edema. No calf tenderness. NEUROLOGICAL: Patient is awake, alert and oriented x3. Cranial nerves 2 through 12 are grossly intact. ASSESSMENT AND PLAN 1. Metabolic encephalopathy: Most likely from UTI with worsening symptoms lately, blood and urine culture be done, consult with Dr. Jesus valencia, continue meropenem. 2 recurrent urinary tract infection: Patient is having multiple episodes closer to each other continue to watch symptoms closely and treat patient is that more aggressively every time. 3 chronic pain syndrome: Has been on gabapentin and hydrocodone. 4 hypothyroidism: Continue patient on levothyroxin 12.5 g daily. 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 6 type 2 diabetes: Continue on Tradjenta and Humalog per sliding scales coverage and still on Synjardy/Metformin mg daily. 7 severe neuropathy: Remain on gabapentin. 8 chronic back pain post surgery and pain management continue on hydrocodone and muscle relaxer. 9 severe PAD with arterial thrombosis post subclavian surgery patient was kept on Eliquis and Plavix. 10 chronic depression: Has been on Cymbalta 30 mg a day. 11 A. fib with RVR: Pulse rates under control on diltiazem and atenolol continue Eliquis as well. 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 13 GI prophylaxis: Remain on omeprazole 20 mg a day. 14 DVT prophylaxis: Continue Eliquis. 15. COVID-19 testing was negative. DISCHARGE PLAN Return to [facility] Impression and plan of care have been directed as dictated by the signing physician. Karen Quintero nurse practitioner acting as scribe for signing physician. Objective - Vital Signs Vital signs: Vital Signs Temp 98.4 F 04/16/21 08:00 Pulse 106 H 04/16/21 08:00 Resp 18 04/16/21 08:00 BP 110/64 04/16/21 08:00 Pulse Ox 96 04/16/21 08:00 Intake & Output 04/15/21 04/16/21 04/16/21 18:59 06:59 18:59 Intake Total 240 Output Total 600 Balance -600 240 Weight 58.967 kg 47 kg Intake: Oral 240 Output: Urine 600 Other: Voiding Method Bedpan External Catheter # Voids 2 # Bowel Movements 1 # Emeses 0 - Labs CBC & Chem 7: 04/15/21 14:17 04/15/21 14:17 Labs: Abnormal Lab Results - Last 24 Hours (Table) 04/15/21 04/15/21 04/15/21 Range/Units 14:17 14:17 14:17 RBC 3.73 L (3.80-5.40) m/uL Hgb 10.5 L (11.4-16.0) gm/dL Hct 32.0 L (34.0-46.0) % RDW 16.0 H (11.5-15.5) % Lymphocytes # 0.6 L (1.0-4.8) k/uL Monocytes # 1.8 H (0-1.0) k/uL Sodium 136 L (137-145) mmol/L Potassium 3.3 L (3.5-5.1) mmol/L Carbon Dioxide 20 L (22-30) mmol/L Creatinine 0.47 L (0.52-1.04) mg/dL Glucose 151 H (74-99) mg/dL POC Glucose (mg/dL) (75-99) mg/dL Creatine Kinase 28 L (30-135) U/L Total Protein 5.6 L (6.3-8.2) g/dL Albumin 3.3 L (3.5-5.0) g/dL Urine Appearance Cloudy H (Clear) Urine Protein Trace H (Negative) Urine Glucose (UA) 4+ H (Negative) Urine Ketones Trace H (Negative) Ur Leukocyte Esterase Large H (Negative) Urine WBC 91 H (0-5) /hpf Urine Mucus Rare H (None) /hpf 04/15/21 04/16/21 Range/Units 21:06 06:28 RBC (3.80-5.40) m/uL Hgb (11.4-16.0) gm/dL Hct (34.0-46.0) % RDW (11.5-15.5) % Lymphocytes # (1.0-4.8) k/uL Monocytes # (0-1.0) k/uL Sodium (137-145) mmol/L Potassium (3.5-5.1) mmol/L Carbon Dioxide (22-30) mmol/L Creatinine (0.52-1.04) mg/dL Glucose (74-99) mg/dL POC Glucose (mg/dL) 134 H 166 H (75-99) mg/dL Creatine Kinase (30-135) U/L Total Protein (6.3-8.2) g/dL Albumin (3.5-5.0) g/dL Urine Appearance (Clear) Urine Protein (Negative) Urine Glucose (UA) (Negative) Urine Ketones (Negative) Ur Leukocyte Esterase (Negative) Urine WBC (0-5) /hpf Urine Mucus (None) /hpf Microbiology - Last 24 Hours (Table) 04/15/21 14:17 Urine Culture - Preliminary Urine,Voided
[2021-04-16 16:32] LABS: Glucose,Whole Blood 268 mg/dL (75-99)
[2021-04-16] MEDS: DILTIAZEM 125 MG in SODIUM CHLORIDE 0.9% 100 ML IV SCH (17:30)
[2021-04-16 20:02] LABS: HCT 29.7 % (34.0-46.0); HGB 9.5 gm/dL (11.4-16.0); Hypochromasia Moderate; MCH 28.3 pg (25.0-35.0); MCHC 31.8 g/dL (31.0-37.0); MCV 89.1 fL (80.0-100.0); Mean Platelet Volume 7.3; Platelet Count 253 k/uL (150-450); Poikilocytosis Slight; RBC 3.34 m/uL (3.80-5.40); RDW 15.8 % (11.5-15.5); WBC 8.1 k/uL (3.8-10.6)
[2021-04-16 20:11] LABS: African American GFR (CKD) >90 (>60 ml/min/1.73 sqM); Anion Gap 9 mmol/L; Blood Urea Nitrogen 9 mg/dL (7-17); Calcium 8.4 mg/dL (8.4-10.2); Carbon Dioxide 20 mmol/L (22-30); Chloride 107 mmol/L (98-107); Glucose 222 mg/dL (74-99); Non-African American GFR(CKD) >90 (>60 ml/min/1.73 sqM); Sodium 136 mmol/L (137-145)
[2021-04-16 20:13] LABS: Glucose,Whole Blood 209 mg/dL (75-99)
[2021-04-16] MEDS: CLOPIDOGREL 75 MG TAB PO SCH (20:25)
[2021-04-16] MEDS: TEMAZEPAM 15 MG CAP PO SCH (20:25)
[2021-04-16] MEDS: LEVOTHYROXINE 25 MCG TAB PO SCH (20:25)
[2021-04-16] MEDS: INSULIN ASPART (NovoLOG) 100 UNIT/ML VIAL SQ SCH (20:25)
[2021-04-16] MEDS: DULoxetine HCL 60 MG CAPSULE.DR PO SCH (20:25)
[2021-04-16] MEDS: ATORVASTATIN 40 MG TAB PO SCH (20:25)
[2021-04-16] MEDS: DULoxetine HCL 30 MG CAPSULE.DR PO SCH (20:31)
[2021-04-16] MEDS: rOPINIRole HCL 4 MG TABLET PO SCH (21:05)
[2021-04-16] MEDS ORDERED: Potassium Replacement Protocol 1 EACH MISC MISCELLANE PRN (21:15)
[2021-04-16] MEDS: POTASSIUM CHLORIDE 10 MEQ in WATER FOR INJECTION 1 100ML.BAG IVPB SCH ×3 (21:33→23:55)
--- NOTE | 2021-04-16 22:36 | PN ---
PROGRESS NOTE DATE OF SERVICE: 04/16/2021 REASON FOR FOLLOWUP: Urinary tract infection with MULTIPLE ANTIBIOTIC ALLERGIES. INTERVAL HISTORY: The patient is afebrile. The patient is feeling better today. She is breathing comfortably. Denies having any chest pain, shortness of breath or cough. No nausea, no vomiting. No abdominal pain or diarrhea. PHYSICAL EXAMINATION: Blood pressure 121/64, pulse of 116, temperature 98.2. She is 92% on 3 L nasal cannula. GENERAL DESCRIPTION: General description is an elderly female lying in bed in no distress. RESPIRATORY SYSTEM: Unlabored breathing. Clear to auscultation anteriorly. HEART: S1, S2. Regular rate and rhythm. ABDOMEN: Soft. No tenderness. LABS: Hemoglobin 9.2, white count 8.9, BUN of 9, creatinine . Cultures are currently pending. DIAGNOSTIC IMPRESSION AND PLAN: Patient admitted to hospital with mental status change, multifactorial, and concern for a urinary tract infection. Patient is currently covered with Meropenem. That will be continued while waiting for the culture to finalize. Monitor clinical course closely. MMODL / IJN: [id number] /
[2021-04-17] MEDS: POTASSIUM CHLORIDE 10 MEQ in WATER FOR INJECTION 1 100ML.BAG IVPB SCH (01:05)
[2021-04-17] MEDS: MEROPENEM 1 GM in SODIUM CHLORIDE 0.9% 100 ML IVPB SCH ×3 (01:05→20:17)
[2021-04-17 06:04] LABS: Glucose,Whole Blood 136 mg/dL (75-99)
[2021-04-17] MEDS: MIDODRINE 5 MG TAB PO SCH ×3 (06:08→17:26)
[2021-04-17] MEDS: INSULIN ASPART (NovoLOG) 100 UNIT/ML VIAL SQ SCH ×4 (06:32→21:26)
[2021-04-17] MEDS: SODIUM CHLORIDE 0.9% 1,000 ML IV SCH (06:32)
[2021-04-17] MEDS: GABAPENTIN 300 MG CAP PO SCH ×3 (06:32→20:17)
[2021-04-17] MEDS ORDERED: DEXTROSE 5% IN WATER 100 ML with AMIODARONE 150 MG IV ONE (09:50)
[2021-04-17] MEDS ORDERED: AMIODARONE 360 MG in DEXTROSE 5% IN WATER 200 ML IV ONE ×2 (10:00)
[2021-04-17 10:15] LABS: HGB 10.7 gm/dL (11.4-16.0); Hypochromasia Slight; MCH 28.8 pg (25.0-35.0); MCHC 33.6 g/dL (31.0-37.0); MCV 85.7 fL (80.0-100.0); Mean Platelet Volume 8.2; Platelet Count 276 k/uL (150-450); Poikilocytosis Slight; RBC 3.73 m/uL (3.80-5.40); WBC 8.3 k/uL (3.8-10.6)
[2021-04-17 10:31] LABS: African American GFR (CKD) >90 (>60 ml/min/1.73 sqM); Anion Gap 10 mmol/L; Blood Urea Nitrogen 6 mg/dL (7-17); Calcium 8.8 mg/dL (8.4-10.2); Carbon Dioxide 19 mmol/L (22-30); Chloride 106 mmol/L (98-107); Glucose 201 mg/dL (74-99); Non-African American GFR(CKD) >90 (>60 ml/min/1.73 sqM); Sodium 135 mmol/L (137-145)
[2021-04-17 10:32] LABS: Potassium 4.5 mmol/L (3.5-5.1)
--- NOTE | 2021-04-17 11:06 | P.PN ---
Subjective HISTORY OF PRESENTING ILLNESS This is a pleasant 81-year-old female past medical history significant for hypertension, dyslipidemia, diabetes mellitus, CVA, sinus tachycardia, peripheral vascular disease and history of PE/DVT with factor V. She follows in the office with Dr. Pak. We have been asked to see in consultation for sinus tachycardia. She presented to the hospital with family secondary to increasing confusion and weakness. She was found to have a urinary tract infection. Initial EKG on admission revealed sinus tachycardia heart rate 132 with incomplete right bundle branch block. Through the night she went into SVT rates 180-200. An A- team was called and she was transferred to with a cardizem gtt ordered. She has been back in the 100-120 range since initiation. Currently SR 106. She denies chest pain, shortness of breath, dizziness or palpitations. She is complaining of a headache and left leg pain. She is currently wearing an event monitor from the office that Dr. Pak applied in the office. Chest x-ray is negative for an acute cardiopulmonary process. CT brain/c-spine negative for an acute intracranial abnormalities. Laboratory data reviewed, WBC 8.6, hgb 10.5, plt 275, sodium 136, potassium 3.3, creatinine 0.47, magnesium 1.8, troponin negative x1, NTproBNP 463. Current cardiac medications include atenolol 12.5 mg daily, Plavix 75 mg daily, atorvastatin 40 mg daily, Eliquis 5 mg twice a day and Cardizem 30 mg 3 times a day. Most recent echocardiogram obtained January 2021 reveals preserved LV systolic function with ejection fraction 55-60%, mild aortic stenosis with a mean gradient of 13 mmHg. 04/17/2021 Pt seen and examined laying flat in bed in no acute distress. Last night she went into atrial fibrillation with RVR, IV cardizem was re-initiated. She is currently in SR. Blood pressure 136/69 heart rate 114 afebrile and maintaining oxygen saturation on nasal cannula. Laboratory data reviewed, WBC 8.3, hemoglobin 10.7, platelets 276, sodium 135, potassium 4.5 and creatinine 0.33. PHYSICAL EXAMINATION Blood pressure 110/64 heart rate 106 afebrile and maintaining oxygen saturation on nasal cannula. CONSTITUTIONAL: No apparent distress. HEENT: Head is normocephalic. Pupils are equal, round. Sclerae anicteric. Mucous membranes of the mouth are moist. No JVD. No carotid bruit. CHEST EXAMINATION: Lungs are clear to auscultation. No chest wall tenderness is noted on palpation or with deep breathing. HEART EXAMINATION: Regular rate and rhythm. S1, S2 heard. Systolic ejection murmur at the base, no gallops or rub. EXTREMITIES: 2+ peripheral pulses, no lower extremity edema and no calf tenderness. ASSESSMENT Sinus tachycardia Paroxysmal atrial fibrillation on eliquis already for history of DVT/PE Urinary tract infection Hypokalemia Diabetes mellitus Hypertension Dyslipidemia PLAN Continue IV cardizem. Initiate amiodarone infusion. Further recommendations to follow. Nurse Practitioner note has been reviewed, I agree with a documented findings and plan of care. Patient was seen and examined. Objective - Vital Signs Vital signs: Vital Signs Temp 98.2 F 04/17/21 03:06 Pulse 114 H 04/17/21 03:06 Resp 18 04/17/21 03:06 BP 136/69 04/17/21 03:06 Pulse Ox 99 04/17/21 08:29 Intake & Output 04/16/21 04/17/21 04/17/21 18:59 06:59 18:59 Intake Total 600 50 180 Output Total 950 1060 550 Balance -350 -1010 -370 Weight 47 kg 63.5 kg Intake: Intake, IV Titration 50 Amount Sodium Chloride 0.9% 1, 50 000 ml @ 50 mls/hr IV . [facility] Rx#:[id number] Oral 600 180 Output: Urine 950 1060 550 Other: Voiding Method External Catheter # Voids 1 # Bowel Movements 1 1 - Labs CBC & Chem 7: 04/17/21 09:33 04/17/21 09:33 Labs: Abnormal Lab Results - Last 24 Hours (Table) 04/16/21 04/16/21 04/16/21 Range/Units 12:13 16:29 19:51 RBC 3.34 L (3.80-5.40) m/uL Hgb 9.5 L (11.4-16.0) gm/dL Hct 29.7 L (34.0-46.0) % RDW 15.8 H (11.5-15.5) % Sodium (137-145) mmol/L Potassium (3.5-5.1) mmol/L Carbon Dioxide (22-30) mmol/L BUN (7-17) mg/dL Creatinine (0.52-1.04) mg/dL Glucose (74-99) mg/dL POC Glucose (mg/dL) 162 H 268 H (75-99) mg/dL 04/16/21 04/16/21 04/17/21 Range/Units 19:51 20:11 06:03 RBC (3.80-5.40) m/uL Hgb (11.4-16.0) gm/dL Hct (34.0-46.0) % RDW (11.5-15.5) % Sodium 136 L (137-145) mmol/L Potassium 3.0 L (3.5-5.1) mmol/L Carbon Dioxide 20 L (22-30) mmol/L BUN (7-17) mg/dL Creatinine 0.35 L (0.52-1.04) mg/dL Glucose 222 H (74-99) mg/dL POC Glucose (mg/dL) 209 H 136 H (75-99) mg/dL 04/17/21 04/17/21 Range/Units 09:33 09:33 RBC 3.73 L (3.80-5.40) m/uL Hgb 10.7 L (11.4-16.0) gm/dL Hct 32.0 L (34.0-46.0) % RDW 16.0 H (11.5-15.5) % Sodium 135 L (137-145) mmol/L Potassium (3.5-5.1) mmol/L Carbon Dioxide 19 L (22-30) mmol/L BUN 6 L (7-17) mg/dL Creatinine 0.33 L (0.52-1.04) mg/dL Glucose 201 H (74-99) mg/dL POC Glucose (mg/dL) (75-99) mg/dL Microbiology - Last 24 Hours (Table) 04/15/21 14:17 Urine Culture - Final Urine,Voided 04/15/21 14:17 Blood Culture - Preliminary Blood No Growth after 24 hours 04/15/21 14:17 Blood Culture - Preliminary Blood No Growth after 24 hours
[2021-04-17] MEDS: METFORMIN HCL PO SCH (11:31)
[2021-04-17] MEDS: PSYLLIUM HUSK 100% 6 GM PACKET PO SCH ×2 (11:31→20:20)
[2021-04-17] MEDS: EMPAGLIFLOZIN PO SCH (11:31)
[2021-04-17 11:47] LABS: Glucose,Whole Blood 179 mg/dL (75-99)
[2021-04-17] MEDS: ACETAMINOPHEN TAB 325 MG TAB PO PRN ×2 (11:49→17:37)
[2021-04-17] MEDS: CALCIUM CARB-VIT D 500 MG-5 MCG TAB PO SCH (11:50)
[2021-04-17] MEDS: LINAGLIPTIN 5 MG TABLET PO SCH (11:50)
[2021-04-17] MEDS: APIXABAN 5 MG TAB PO SCH ×2 (11:50→20:16)
[2021-04-17] MEDS: allopurinoL 100 MG TAB PO SCH (11:50)
[2021-04-17] MEDS: FLUDROCORTISONE 0.1 MG TAB PO SCH (11:51)
[2021-04-17] MEDS: TRIHEXYPHENIDYL 2 MG TAB PO SCH (11:51)
[2021-04-17] MEDS: IPRATROPIUM BROMIDE 0.06% NASAL SPRAY (15 ML) EA NOSTRIL SCH ×2 (11:51→20:17)
--- NOTE | 2021-04-17 13:57 | P.PN ---
Subjective Progress Note Date: 04/17/21 HISTORY OF PRESENT ILLNESS 81-year-old female with multiple medical problem who was one of Dr. Rocha patient is known to have factor V Leiden Yoshi deficiency, type 2 diabetes, non- Hodgkin's lymphoma, severe compression and bulging disc involving 3 lumbar spine vertebrae which patient has been seen Dr. Nathan and had surgical intervention in the past. Patient had severe abnormal mobility balance and gait ended up in the long-term rehab for a few weeks every time she is hospitalized. Patient was hospitalized at [facility] 03/29/2021 because of hypoxia and aspiration pneumonia was the hospital to the 15 she become very debilitated not been able template and walk and decided the best option course to have patient go to [facility] the [facility]. Patient has been there for the last few days she developed to have worsening symptoms with fever, chills, altered mental status with worsening lower abdominal pain and discomfort patient was not acting herself noticed by [facility] staff will call Dr. Avelar and have patient transferred to [facility] department at [facility] with temperature of 101 at the time slightly elevated white blood cell. 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 Patient was post to see general surgery and plan to do surgical correction at some point. After presentation to [facility] patient was not acting herself initially more confused mildly hypotensive remain anemic no major abnormality with electrolyte imbalance. UA can was very positive at this time patient be started on Zosyn. The IV. 04/16: Patient had heart rate up to 197 then 124, Cardizem drip was started and subsequently discontinued. cardiopulmonary specialist was sinus tachycardia. She is now running at 102, blood pressure 103/64, pulse ox 95% on 3 L nasal cannula. Patient has been afebrile. Blood sugars are running between 134 and 166. Urine culture is in progress. Patient has been seen by cardiology and recommended oral Cardizem and atenolol. Patient has been seen by Dr. Lee with recommendations to continue meropenem. Dr. Flores is also in place. 04/17: Dr. Flores contacted by Dr. Farooq via phone call regarding consult and she will be in to see the patient. Patient has had A. fib with RVR and Cardizem drip was started. She apparently went up to 140 bpm and Cardizem was up to 15 mg per hour. This appears to have been stopped and there is an order for amiodarone from cardiology. She is afebrile, heart rate 114, blood pressure 136/69, pulse ox 99% on 3 L nasal cannula. Patient is eating 25-75% of her meals. REVIEW OF SYSTEMS Constitutional: No fever, no chills, no night sweats. No weight change. Positive generalized fatigue tiredness lethargy and slight sleepy. EENT: No headache. No blurred vision or double vision, no loss of vision. No nasal drainage or congestion. No epistaxis. No sore throat. Lungs: Slight shortness of breath mild cough no sputum production Cardiovascular: No chest pain or angina continue to have mild arrhythmia on and off mild PND and shortness of breath with exertion. Abdominal: No abdominal pain. No nausea, vomiting. No diarrhea. No constipation. No bloody or tarry stools.. Mild loss of appetite. 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 Musculoskeletal: No myalgias. No muscle weakness, no gait dysfunction, no frequent falls. No back pain. No neck pain. Integumentary: No wounds, no lesions. No rash or pruritus. No unusual bruising. No change in hair or nails. Neurologic: No aphasia. No facial droop. mild change in mentation. No head injury. No headache. No paralysis. No paresthesia. Psychiatric: No depression. No anxiety. No mood swings. Endocrine: No abnormal blood sugars. No weight change. No excessive sweating or thirst. No cold intolerance. PHYSICAL EXAMINATION Gen: This is a 81-year-old elderly, pale still slightly but confused but able to answer her question without any intervention. HEENT: Head is atraumatic, normocephalic. Pupils equal, round. Positive slight jaundice. NECK: Supple. No JVD. No lymphadenopathy. No thyromegaly. LUNGS: Decreased breath some bilaterally with fine rhonchi mild expiratory wheez es. HEART: Irregular rate and rhythm. No murmur. ABDOMEN: Soft. Bowel sounds are present. No masses. Slight discomfort left lower quadrant area and right lower quadrant area as well with positive pulse. EXTREMITIES: No pedal edema. No calf tenderness. NEUROLOGICAL: Patient is awake, alert and oriented to person and place. Cranial nerves 2 through 12 are grossly intact. ASSESSMENT AND PLAN 1. Metabolic encephalopathy: Most likely from UTI with worsening symptoms la rochelley, blood and urine culture be done, consult with Dr. Lee appreciated, continue meropenem. 2 recurrent urinary tract infection: Patient is having multiple episodes closer to each other continue to watch symptoms closely and treat patient is that more aggressively every time. 3 chronic pain syndrome: Has been on gabapentin and hydrocodone. 4 hypothyroidism: Continue patient on levothyroxin 12.5 g daily. 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 6 type 2 diabetes: Continue on Tradjenta and Humalog per sliding scales coverage and still on Synjardy/Metformin mg daily. 7 severe neuropathy: Remain on gabapentin. 8 chronic back pain post surgery and pain management continue on hydrocodone and muscle relaxer. 9 severe PAD with arterial thrombosis post subclavian surgery patient was kept on Eliquis and Plavix. 10 chronic depression: Has been on Cymbalta 30 mg a day. 11 A. fib with RVR, paroxysmal atrial fibrillation: Pulse rates under control on diltiazem and atenolol continue Eliquis as well. Patient was on Cardizem drip, amiodarone drip to start today. Radiology consult appreciated. 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 Dr. Flores will see the patient today. 13 GI prophylaxis: Remain on omeprazole 20 mg a day. 14 DVT prophylaxis: Continue Eliquis. 15. COVID-19 testing was negative. DISCHARGE PLAN Return to [facility] Impression and plan of care have been directed as dictated by the signing physician. Karen Quintero nurse practitioner acting as scribe for signing physician. Objective - Vital Signs Vital signs: Vital Signs Temp 98.2 F 04/17/21 03:06 Pulse 114 H 04/17/21 03:06 Resp 18 04/17/21 03:06 BP 136/69 04/17/21 03:06 Pulse Ox 99 04/17/21 08:29 Intake & Output 04/16/21 04/17/21 04/17/21 18:59 06:59 18:59 Intake Total 600 50 180 Output Total 950 1060 550 Balance -350 -1010 -370 Weight 47 kg 63.5 kg Intake: Intake, IV Titration 50 Amount Sodium Chloride 0.9% 1, 50 000 ml @ 50 mls/hr IV . Q20H [facility] Rx#:[id number] Oral 600 180 Output: Urine 950 1060 550 Other: Voiding Method External Catheter # Voids 1 # Bowel Movements 1 1 - Labs CBC & Chem 7: 04/17/21 09:33 04/17/21 09:33 Labs: Abnormal Lab Results - Last 24 Hours (Table) 04/16/21 04/16/21 04/16/21 Range/Units 12:13 16:29 19:51 RBC 3.34 L (3.80-5.40) m/uL Hgb 9.5 L (11.4-16.0) gm/dL Hct 29.7 L (34.0-46.0) % RDW 15.8 H (11.5-15.5) % Sodium (137-145) mmol/L Potassium (3.5-5.1) mmol/L Carbon Dioxide (22-30) mmol/L Creatinine (0.52-1.04) mg/dL Glucose (74-99) mg/dL POC Glucose (mg/dL) 162 H 268 H (75-99) mg/dL 04/16/21 04/16/21 04/17/21 Range/Units 19:51 20:11 06:03 RBC (3.80-5.40) m/uL Hgb (11.4-16.0) gm/dL Hct (34.0-46.0) % RDW (11.5-15.5) % Sodium 136 L (137-145) mmol/L Potassium 3.0 L (3.5-5.1) mmol/L Carbon Dioxide 20 L (22-30) mmol/L Creatinine 0.35 L (0.52-1.04) mg/dL Glucose 222 H (74-99) mg/dL POC Glucose (mg/dL) 209 H 136 H (75-99) mg/dL 04/17/21 Range/Units 09:33 RBC 3.73 L (3.80-5.40) m/uL Hgb 10.7 L (11.4-16.0) gm/dL Hct 32.0 L (34.0-46.0) % RDW 16.0 H (11.5-15.5) % Sodium (137-145) mmol/L Potassium (3.5-5.1) mmol/L Carbon Dioxide (22-30) mmol/L Creatinine (0.52-1.04) mg/dL Glucose (74-99) mg/dL POC Glucose (mg/dL) (75-99) mg/dL Microbiology - Last 24 Hours (Table) 04/15/21 14:17 Urine Culture - Final Urine,Voided 04/15/21 14:17 Blood Culture - Preliminary Blood No Growth after 24 hours 04/15/21 14:17 Blood Culture - Preliminary Blood No Growth after 24 hours
--- NOTE | 2021-04-17 16:00 | PN ---
PROGRESS NOTE DATE OF SERVICE: 04/17/2021 REASON FOR FOLLOWUP: UTI with multiple antibiotic allergies. INTERVAL HISTORY: The patient is afebrile. The patient is currently breathing comfortably. Denies having any chest pain. No shortness of breath or cough. No vomiting. No abdominal pain or diarrhea. PHYSICAL EXAMINATION: Blood pressure ( ), pulse of 114, temperature 98.2. She is ( ) on 3 liters nasal cannula. General description is an elderly female lying in bed in no distress. Respiratory system: Unlabored breathing, clear to auscultation. Heart S1, S2. Regular rate and rhythm. Abdomen soft, no tenderness. LABS: Hemoglobin is 10.81. BUN of 61, creatinine ( ). Blood culture has been negative so far. DIAGNOSTIC IMPRESSION AND PLAN: Patient admitted to the hospital with mental status changes with significantly positive UA concerning for symptomatic urinary tract infection with last urine culture positive for drug-resistant Citrobacter. The patient is on meropenem because of multiple antibiotic allergy, continue. We will obtain a repeat UA and continue supportive care. MMODL / IJN: [id number] /
--- NOTE | 2021-04-17 16:05 | P.GSCN ---
History of Present Illness Consult date: 04/17/21 Reason for Consult: Colonoscopy, possible colovesical fistula History of present illness: Patient was admitted with altered mental status presumably from urinary tract retracted infection. Plan was to do a outpatient colonoscopy on the patient to evaluate her for possible colovesical fistula and surgery. 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 History of Any Multi-Drug Resistant Organisms: None Reported Past Surgical History: Appendectomy, Back Surgery, Bladder Surgery, Breast Surgery, Cholecystectomy, Hysterectomy, Joint Replacement, Orthopedic Surgery, Tonsillectomy Additional Past Surgical History / Comment(s): 12/2020 PTBA with stent R brachial/cephalic artery, cervical fusion, lumbar laminectomy, R hip repair, bilateral thumbs/rods, R 3rd toe nathaniel, bilateral total knee arthroplasties, pain clinic procedures, R femur biopsy, D&Cs, bladder suspension, EGD, colonoscopies, L breast biopsy/axilary bx, bilateral cataract removals. Past Anesthesia/Blood Transfusion Reactions: No Reported Reaction Additional Past Anesthesia/Blood Transfusion Reaction / Comm: CLAUSTROPHOBIA Past Psychological History: Anxiety, Depression Additional Psychological History / Comment(s): Pt resides with her aminah, Luciana. She uses a walker to ambulate. She no longer drives, family can take her to appts. Luciana assists pt with medications, pt is fairly independent. Smoking Status: Never smoker Past Alcohol Use History: None Reported Additional Past Alcohol Use History / Comment(s): . Past Drug Use History: None Reported - Past Family History Father Family Medical History: Deep Vein Thrombosis (DVT), Pulmonary Embolus Additional Family Medical History / Comment(s): Father at age 32 from pulmonary embolism. Mother Family Medical History: Cancer Additional Family Medical History / Comment(s): breast Brother(s) Family Medical History: Cancer, CVA/TIA, Deep Vein Thrombosis (DVT), Myocardial Infarction (VT), Pulmonary Embolus, Vascular Disorder Additional Family Medical History / Comment(s): 2 brothers that have passed one from myocardial infarction and one from pulmonary embolism. 2 brothers are alive and one has lung cancer, one brother is alive with a brain aneurysm and CVA. Medications and Allergies Home Medications Medication Instructions Recorded Confirmed Type Calcium Carb-Vit D 500Mg-5Mcg 1 tab PO DAILY@0900 01/05/14 04/15/21 History [Oscal 500+D 5 Mcg (200 Iu)] allopurinoL [Zyloprim] 100 mg PO DAILY@89901/05/14 04/15/21 History Levothyroxine Sodium [Synthroid] 12.5 mcg PO HS@209903/16/14 04/15/21 History Ipratropium [place] 0.06%Nasal 2 spr EA NOSTRIL BID@899,209907/03/20 04/15/21 History [Atrovent Nasal 0.06%] Apixaban [Eliquis] 5 mg PO BID@0900,209910/06/20 04/15/21 History DULoxetine HCL [Cymbalta] 60 mg PO HS@209912/17/20 04/15/21 History Estradiol Cream [Estrace Cream 1 gm VAGINAL SUTH@209912/17/20 04/15/21 History 0.01%] Atorvastatin [Lipitor] 40 mg PO HS@209912/27/20 04/15/21 History Loperamide [Imodium] 2 mg PO Q8H PRN 12/30/20 04/15/21 History Psyllium Husk (with Sugar) 6 gm PO BID@0900,209902/13/21 04/15/21 History [Metamucil Powder] DULoxetine HCL [Cymbalta] 30 mg PO HS@209902/28/21 04/15/21 History Baclofen [Lioresal] 10 mg PO TID PRN tab 03/03/21 04/15/21 Rx Acetaminophen Tab [Tylenol] 650 mg PO Q4H PRN 03/29/21 04/15/21 History Clopidogrel [Plavix] 75 mg PO HS@209903/29/21 04/15/21 History Empagliflozin/Metformin HCl 1 tab PO DAILY@89903/29/21 04/15/21 History [Synjardy Xr 25-1,000 mg Tablet] Insulin Lispro [humaLOG Kwikpen] See Protocol SQ ACHS 03/29/21 04/15/21 History Linagliptin [Tradjenta] 5 mg PO DAILY@89903/29/21 04/15/21 History rOPINIRole HCL [Requip] 4 mg PO HS@209903/29/21 04/15/21 History HYDROcodone/APAP 10-325MG [[place] 1 tab PO BID PRN #6 tab 04/01/21 04/15/21 Rx 10-325] Fludrocortisone Acetate 0.1 mg PO DAILY@89904/15/21 04/15/21 History Gabapentin 600 mg PO TID@0600,1400,2200 04/15/21 04/15/21 History Mag Hydrox/Aluminum Hyd/Simeth 10 ml PO Q4H PRN 04/15/21 04/15/21 History [Mylanta Maximum Strength Liq] Midodrine [ProAmatine] 10 mg PO TID@0700,1100,1600 04/15/21 04/15/21 History Omeprazole 20 mg PO DAILY PRN 04/15/21 04/15/21 History Temazepam [Restoril] 15 mg PO HS@209904/15/21 04/15/21 History Trihexyphenidyl [Artane] 1 mg PO DAILY@89904/15/21 04/15/21 History atenoloL [Tenormin] 12.5 mg PO DAILY@89904/15/21 04/15/21 History dilTIAZem HCL 30 mg PO TID@0900,1300,2100 04/15/21 04/15/21 History Allergies Allergy/AdvReac Type Severity Reaction Status Date / Time adhesive Allergy red skin, Verified 04/15/21 14:39 blisters cefaclor [From Ceclor] Allergy Rash/Hives Verified 04/15/21 14:39 ciprofloxacin [From Cipro] Allergy Rash/Hives Verified 04/15/21 14:39 ciprofloxacin HCl Allergy Rash/Hives Verified 04/15/21 14:39 [From Cipro] hydromorphone HCl Allergy Anaphylaxis Verified 04/15/21 14:39 [From Dilaudid] Penicillins Allergy Rash/Hives Verified 04/15/21 14:39 clindamycin AdvReac Nausea & Verified 04/15/21 14:39 Vomiting sulfamethoxazole AdvReac Abdominal Verified 04/15/21 14:39 [From Bactrim] Pain trimethoprim [From Bactrim] AdvReac Abdominal Verified 04/15/21 14:39 Pain Surgical - Exam Osteopathic Statement: *. No significant issues noted on an osteopathic structural exam other than those noted in the History and Physical/Consult. Vital Signs Temp Pulse Resp BP Pulse Ox 99.7 F H 130 H 18 127/83 97 04/15/21 13:55 04/15/21 13:55 04/15/21 13:55 04/15/21 13:55 04/15/21 13:55 - General Debilitated - Cardiovascular Rhythm: irregularly irregular - Abdomen Abdomen: soft Results - Labs 04/17/21 09:33 04/17/21 09:33 Abnormal Lab Results - Last 24 Hours (Table) 04/16/21 04/16/21 04/16/21 Range/Units 16:29 19:51 19:51 RBC 3.34 L (3.80-5.40) m/uL Hgb 9.5 L (11.4-16.0) gm/dL Hct 29.7 L (34.0-46.0) % RDW 15.8 H (11.5-15.5) % Sodium 136 L (137-145) mmol/L Potassium 3.0 L (3.5-5.1) mmol/L Carbon Dioxide 20 L (22-30) mmol/L BUN (7-17) mg/dL Creatinine 0.35 L (0.52-1.04) mg/dL Glucose 222 H (74-99) mg/dL POC Glucose (mg/dL) 268 H (75-99) mg/dL 04/16/21 04/17/21 04/17/21 Range/Units 20:11 06:03 09:33 RBC 3.73 L (3.80-5.40) m/uL Hgb 10.7 L (11.4-16.0) gm/dL Hct 32.0 L (34.0-46.0) % RDW 16.0 H (11.5-15.5) % Sodium (137-145) mmol/L Potassium (3.5-5.1) mmol/L Carbon Dioxide (22-30) mmol/L BUN (7-17) mg/dL Creatinine (0.52-1.04) mg/dL Glucose (74-99) mg/dL POC Glucose (mg/dL) 209 H 136 H (75-99) mg/dL 04/17/21 04/17/21 Range/Units 09:33 11:45 RBC (3.80-5.40) m/uL Hgb (11.4-16.0) gm/dL Hct (34.0-46.0) % RDW (11.5-15.5) % Sodium 135 L (137-145) mmol/L Potassium (3.5-5.1) mmol/L Carbon Dioxide 19 L (22-30) mmol/L BUN 6 L (7-17) mg/dL Creatinine 0.33 L (0.52-1.04) mg/dL Glucose 201 H (74-99) mg/dL POC Glucose (mg/dL) 179 H (75-99) mg/dL Microbiology - Last 24 Hours (Table) 04/15/21 14:17 Urine Culture - Final Urine,Voided 04/15/21 14:17 Blood Culture - Preliminary Blood No Growth after 24 hours 04/15/21 14:17 Blood Culture - Preliminary Blood No Growth after 24 hours Diabetes panel 04/16/21 04/17/21 Range/Units 19:51 09:33 Sodium 136 L 135 L (137-145) mmol/L Potassium 3.0 L 4.5 (3.5-5.1) mmol/L Chloride 107 106 (98-107) mmol/L Carbon Dioxide 20 L 19 L (22-30) mmol/L BUN 9 6 L (7-17) mg/dL Creatinine 0.35 L 0.33 L (0.52-1.04) mg/dL Glucose 222 H 201 H (74-99) mg/dL Calcium 8.4 8.8 (8.4-10.2) mg/dL Calcium panel 04/16/21 04/17/21 Range/Units 19:51 09:33 Calcium 8.4 8.8 (8.4-10.2) mg/dL Pituitary panel 04/16/21 04/17/21 Range/Units 19:51 09:33 Sodium 136 L 135 L (137-145) mmol/L Potassium 3.0 L 4.5 (3.5-5.1) mmol/L Chloride 107 106 (98-107) mmol/L Carbon Dioxide 20 L 19 L (22-30) mmol/L BUN 9 6 L (7-17) mg/dL Creatinine 0.35 L 0.33 L (0.52-1.04) mg/dL Glucose 222 H 201 H (74-99) mg/dL Calcium 8.4 8.8 (8.4-10.2) mg/dL Adrenal panel 04/16/21 04/17/21 Range/Units 19:51 09:33 Sodium 136 L 135 L (137-145) mmol/L Potassium 3.0 L 4.5 (3.5-5.1) mmol/L Chloride 107 106 (98-107) mmol/L Carbon Dioxide 20 L 19 L (22-30) mmol/L BUN 9 6 L (7-17) mg/dL Creatinine 0.35 L 0.33 L (0.52-1.04) mg/dL Glucose 222 H 201 H (74-99) mg/dL Calcium 8.4 8.8 (8.4-10.2) mg/dL Assessment and Plan (1) Generalized weakness Current Visit: Yes Status: Acute Code(s): R53.1 - WEAKNESS SNOMED Code(s): 56698496 (2) Tachycardia Current Visit: Yes Status: Acute Code(s): R00.0 - TACHYCARDIA, UNSPECIFIED SNOMED Code(s): 3227451 (3) Fall Current Visit: No Status: Acute Code(s): W19.XXXA - UNSPECIFIED FALL, INITIAL ENCOUNTER SNOMED Code(s): 4971380 Plan: If the patient has no further A. fib with RVR, she will be prepped for colonoscopy on Wednesday with the procedure tentatively on Wednesday.
[2021-04-17 17:01] LABS: Glucose,Whole Blood 236 mg/dL (75-99)
[2021-04-17] MEDS: AMIODARONE 450 MG in DEXTROSE 5% IN WATER 250 ML IV SCH ×2 (17:47)
[2021-04-17] MEDS: DILTIAZEM 125 MG in SODIUM CHLORIDE 0.9% 100 ML IV SCH (19:00)
[2021-04-17] MEDS: HYDROcodone/APAP 10-325MG 1 EACH TAB PO PRN (19:04)
[2021-04-17] MEDS: ESTRADIOL 0.1 MG/GM VAGINAL CREAM 42.5 GM TUBE VAGINAL SCH (20:16)
[2021-04-17] MEDS: DULoxetine HCL 30 MG CAPSULE.DR PO SCH (20:16)
[2021-04-17] MEDS: CLOPIDOGREL 75 MG TAB PO SCH (20:16)
[2021-04-17] MEDS: ATORVASTATIN 40 MG TAB PO SCH (20:16)
[2021-04-17] MEDS: DULoxetine HCL 60 MG CAPSULE.DR PO SCH (20:16)
[2021-04-17] MEDS: TEMAZEPAM 15 MG CAP PO SCH (20:17)
[2021-04-17] MEDS: LEVOTHYROXINE 25 MCG TAB PO SCH (20:17)
[2021-04-17] MEDS: rOPINIRole HCL 4 MG TABLET PO SCH (20:17)
[2021-04-17 20:35] LABS: Appearance,Urine Cloudy (Clear); Bacteria,Urine Few /hpf; Bilirubin,Urine Negative (Negative); Blood,Urine Small (Negative); Color,Urine Light Yellow; Glucose,Urine (UA) 4+ (Negative); Ketones,Urine Trace (Negative); Leukocyte Esterase,Urine Large (Negative); Mucus,Urine Rare /hpf; Nitrite,Urine Negative (Negative); PH, Urine 5.5 (5.0-8.0); Protein,Urine Trace (Negative); RBC,Urine 9 /hpf (0-5); Specific Gravity,Urine 1.017 (1.001-1.035); Squamous Epithelial Cell,Urine <1 /hpf (0-4); Urobilinogen,Urine <2.0 mg/dL (<2.0); WBC,Urine >182 /hpf (0-5)
[2021-04-17 21:21] LABS: Glucose,Whole Blood 224 mg/dL (75-99)
[2021-04-18] MEDS: SODIUM CHLORIDE 0.9% 1,000 ML IV SCH ×2 (02:41→21:11)
[2021-04-18] MEDS: AMIODARONE 450 MG in DEXTROSE 5% IN WATER 250 ML IV SCH ×2 (02:46)
[2021-04-18] MEDS: ACETAMINOPHEN TAB 325 MG TAB PO PRN ×2 (03:25→13:02)
[2021-04-18 06:30] LABS: Glucose,Whole Blood 167 mg/dL (75-99)
[2021-04-18] MEDS: INSULIN ASPART (NovoLOG) 100 UNIT/ML VIAL SQ SCH ×4 (06:37→21:12)
[2021-04-18] MEDS: MIDODRINE 5 MG TAB PO SCH ×3 (06:37→17:08)
[2021-04-18] MEDS: MEROPENEM 1 GM in SODIUM CHLORIDE 0.9% 100 ML IVPB SCH ×3 (06:37→21:11)
[2021-04-18] MEDS: GABAPENTIN 300 MG CAP PO SCH ×3 (06:37→21:11)
[2021-04-18] MEDS: EMPAGLIFLOZIN PO SCH (08:21)
[2021-04-18] MEDS: METFORMIN HCL PO SCH (08:21)
[2021-04-18] MEDS: TRIHEXYPHENIDYL 2 MG TAB PO SCH (08:43)
[2021-04-18] MEDS: HYDROcodone/APAP 10-325MG 1 EACH TAB PO PRN ×2 (08:44→21:13)
[2021-04-18] MEDS: allopurinoL 100 MG TAB PO SCH (08:44)
[2021-04-18] MEDS: CALCIUM CARB-VIT D 500 MG-5 MCG TAB PO SCH (08:45)
[2021-04-18] MEDS: LINAGLIPTIN 5 MG TABLET PO SCH (08:45)
[2021-04-18] MEDS: APIXABAN 5 MG TAB PO SCH ×2 (08:45→21:12)
[2021-04-18] MEDS: FLUDROCORTISONE 0.1 MG TAB PO SCH (08:45)
[2021-04-18] MEDS: PSYLLIUM HUSK 100% 6 GM PACKET PO SCH (08:48)
[2021-04-18] MEDS: AMIODARONE 200 MG TAB PO SCH ×2 (10:57→21:12)
[2021-04-18 11:44] LABS: Glucose,Whole Blood 175 mg/dL (75-99)
--- NOTE | 2021-04-18 12:39 | P.PN ---
Subjective Progress Note Date: 04/18/21 HISTORY OF PRESENT ILLNESS 81-year-old female with multiple medical problem who was one of Dr. Rocha patient is known to have factor V Leiden Yoshi deficiency, type 2 diabetes, non- Hodgkin's lymphoma, severe compression and bulging disc involving 3 lumbar spine vertebrae which patient has been seen Dr. Nathan and had surgical intervention in the past. Patient had severe abnormal mobility balance and gait ended up in the intermediate rehab for a few weeks every time she is hospitalized. Patient was hospitalized at [facility] 03/29/2021 because of hypoxia and aspiration pneumonia was the hospital to the 15 she become very debilitated not been able template and walk and decided the best option course to have patient go to [facility] on the [place] [facility]. Patient has been there for the last few days she developed to have worsening symptoms with fever, chills, altered mental status with worsening lower abdominal pain and discomfort patient was not acting herself noticed by [facility] staff will call Dr. Avelar and have patient transferred to [facility] at [facility] with temperature of 101 at the time slightly elevated white blood cell. 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 Patient was post to see general surgery and plan to do surgical correction at some point. After presentation to [facility] patient was not acting herself initially more confused mildly hypotensive remain anemic no major abnormality with electrolyte imbalance. UA can was very positive at this time patient be started on Zosyn. The IV. 04/16: Patient had heart rate up to 197 then 124, Cardizem drip was started and subsequently discontinued. photographic platemaker was sinus tachycardia. She is now running at 102, blood pressure 103/64, pulse ox 95% on 3 L nasal cannula. Patient has been afebrile. Blood sugars are running between 134 and 166. Urine culture is in progress. Patient has been seen by cardiology and recommended oral Cardizem and atenolol. Patient has been seen by Dr. Lee with recommendations to continue meropenem. Dr. Flores is also in place. 04/17: Dr. Flores contacted by Dr. Farooq via phone call regarding consult and she will be in to see the patient. Patient has had A. fib with RVR and Cardizem drip was started. She apparently went up to 140 bpm and Cardizem was up to 15 mg per hour. This appears to have been stopped and there is an order for amiodarone from cardiology. She is afebrile, heart rate 114, blood pressure 136/69, pulse ox 99% on 3 L nasal cannula. Patient is eating 25-75% of her meals. 04/18: Dr. Flores has evaluated the patient with plan for colonoscopy on Wednesday. Patient's heart rate is now running between 87 and 107 sinus rhythm. She is off Cardizem drip and amiodarone drip, transitioned to oral amiodarone 400 mg twice daily continued on atenolol 12.[address] Lee is ordered for a new urinalysis which was cloudy, leukoesterase large, WBC is greater than 182, WBC clumps few and repeat urine culture is in progress. Patient is continued on IV meropenem. Patient states abdominal pain is running 23/10. Blood sugars are running between 167 and 236. Anticipate discharge back to [facility] on Wednesday REVIEW OF SYSTEMS Constitutional: No fever, no chills, no night sweats. No weight change. Positive generalized fatigue tiredness lethargy and slight sleepy. EENT: No headache. No blurred vision or double vision, no loss of vision. No nasal drainage or congestion. No epistaxis. No sore throat. Lungs: Slight shortness of breath mild cough no sputum production Cardiovascular: No chest pain or angina continue to have mild arrhythmia on and off mild PND and shortness of breath with exertion. Abdominal: mild abdominal pain. No nausea, vomiting. No diarrhea. No constipation. No bloody or tarry stools.. Mild loss of appetite. 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 Musculoskeletal: No myalgias. No muscle weakness, no gait dysfunction, no frequent falls. No back pain. No neck pain. Integumentary: No wounds, no lesions. No rash or pruritus. No unusual bruis ing. No change in hair or nails. Neurologic: No aphasia. No facial droop. mild change in mentation. No head injury. No headache. No paralysis. No paresthesia. Psychiatric: No depression. No anxiety. No mood swings. Endocrine: No abnormal blood sugars. No weight change. No excessive sweating or thirst. No cold intolerance. PHYSICAL EXAMINATION Gen: This is a 81-year-old elderly, patient is resting in bed appears to be comfortable and in no acute distress. HEENT: Head is atraumatic, normocephalic. Pupils equal, round. Positive slight jaundice. NECK: Supple. No JVD. No lymphadenopathy. No thyromegaly. LUNGS: Decreased breath some bilaterally with fine rhonchi mild expiratory wheezes. HEART: Irregular rate and rhythm. No murmur. ABDOMEN: Soft. Bowel sounds are present. No masses. Slight discomfort left lower quadrant area and right lower quadrant area as well with positive pulse. EXTREMITIES: No pedal edema. No calf tenderness. NEUROLOGICAL: Patient is awake, alert and oriented x3. Cranial nerves 2 through 12 are grossly intact. ASSESSMENT AND PLAN 1. Metabolic encephalopathy: Most likely from UTI with worsening symptoms lately, blood and urine culture be done, consult with Dr. Lee appreciated, continue meropenem. Repeat urine culture in progress 2 recurrent urinary tract infection: Patient is having multiple episodes closer to each other continue to watch symptoms closely and treat patient is that more aggressively every time. 3 chronic pain syndrome: Has been on gabapentin and hydrocodone. 4 hypothyroidism: Continue patient on levothyroxin 12.5 g daily. 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 6 type 2 diabetes: Continue on Tradjenta and Humalog per sliding scales coverage and still on Synjardy/Metformin mg daily. 7 severe neuropathy: Remain on gabapentin. 8 chronic back pain post surgery and pain management continue on hydrocodone and muscle relaxer. 9 severe PAD with arterial thrombosis post subclavian surgery patient was kept on Eliquis and Plavix. 10 chronic depression: Has been on Cymbalta 30 mg a day. 11 A. fib with RVR, paroxysmal atrial fibrillation. Continue atenolol continue Eliquis as well. Continue amiodarone 400 mg twice daily oral, consult appreciated. 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 Dr. Flores is scheduled patient for colonoscopy on Wednesday. 13 GI prophylaxis: Remain on omeprazole 20 mg a day. 14 DVT prophylaxis: Continue Eliquis. 15. COVID-19 testing was negative. DISCHARGE PLAN Return to [facility] on Wednesday Impression and plan of care have been directed as dictated by the signing physician. Karen Quintero nurse practitioner acting as scribe for signing physician. Objective - Vital Signs Vital signs: Vital Signs Temp 97.9 F 04/18/21 10:56 Pulse 87 04/18/21 10:56 Resp 15 04/18/21 10:56 BP 99/60 04/18/21 10:56 Pulse Ox 99 04/18/21 10:56 Intake & Output 04/17/21 04/18/21 04/18/21 18:59 06:59 18:59 Intake Total 845 389.725 360 Output Total 750 1225 Balance 95 -835.275 360 Weight 63.5 kg 63 kg Intake: Intake, IV Titration 125 149.725 Amount Amiodarone 450 mg In 149.725 Dextrose 5% in Water 250 ml @ 0.5 MG/MIN 16.667 mls/hr IV .Q15H SANTOS Rx#: [id number] Diltiazem 125 mg In 125 Sodium Chloride 0.9% 100 ml @ 5 MG/HR 5 mls/hr IV .Q24H SANTOS Rx#:[id number] Oral 720 240 360 Output: Urine 750 1225 Other: Voiding Method External Catheter External Catheter External Catheter - Labs CBC & Chem 7: 04/17/21 09:33 04/17/21 09:33 Labs: Abnormal Lab Results - Last 24 Hours (Table) 04/17/21 04/17/21 04/17/21 Range/Units 11:45 16:56 20:16 POC Glucose (mg/dL) 179 H 236 H (75-99) mg/dL Urine Appearance Cloudy H (Clear) Urine Protein Trace H (Negative) Urine Glucose (UA) 4+ H (Negative) Urine Ketones Trace H (Negative) Urine Blood Small H (Negative) Ur Leukocyte Esterase Large H (Negative) Urine RBC 9 H (0-5) /hpf Urine WBC >182 H (0-5) /hpf Urine WBC Clumps Few H (None) /hpf Urine Bacteria Few H (None) /hpf Urine Mucus Rare H (None) /hpf 04/17/21 04/18/21 Range/Units 20:44 06:28 POC Glucose (mg/dL) 224 H 167 H (75-99) mg/dL Urine Appearance (Clear) Urine Protein (Negative) Urine Glucose (UA) (Negative) Urine Ketones (Negative) Urine Blood (Negative) Ur Leukocyte Esterase (Negative) Urine RBC (0-5) /hpf Urine WBC (0-5) /hpf Urine WBC Clumps (None) /hpf Urine Bacteria (None) /hpf Urine Mucus (None) /hpf Microbiology - Last 24 Hours (Table) 04/17/21 20:16 Urine Culture - Preliminary Urine,Voided 04/15/21 14:17 Blood Culture - Preliminary Blood No Growth after 48 hours 04/15/21 14:17 Blood Culture - Preliminary Blood No Growth after 48 hours
[2021-04-18] MEDS ORDERED: PEG 3350-NA SULF,BICARB,CL/KCL 4,000 ML BOTTLE PO ONE (12:57)
[2021-04-18] MEDS ORDERED: LORATADINE 10 MG TAB PO PRN (13:10)
--- NOTE | 2021-04-18 13:11 | P.PN ---
Subjective HISTORY OF PRESENTING ILLNESS This is a pleasant 81-year-old female past medical history significant for hypertension, dyslipidemia, diabetes mellitus, CVA, sinus tachycardia, peripheral vascular disease and history of PE/DVT with factor V. She follows in the office with Dr. Pak. We have been asked to see in consultation for sinus tachycardia. She presented to the hospital with family secondary to increasing confusion and weakness. She was found to have a urinary tract infection. Initial EKG on admission revealed sinus tachycardia heart rate 132 with incomplete right bundle branch block. Through the night she went into SVT rates 180-200. An A- team was called and she was transferred to with a cardizem gtt ordered. She has been back in the 100-120 range since initiation. Currently SR 106. She denies chest pain, shortness of breath, dizziness or palpitations. She is complaining of a headache and left leg pain. She is currently wearing an event monitor from the office that Dr. Pak applied in the office. Chest x-ray is negative for an acute cardiopulmonary process. CT brain/c-spine negative for an acute intracranial abnormalities. Laboratory data reviewed, WBC 8.6, hgb 10.5, plt 275, sodium 136, potassium 3.3, creatinine 0.47, magnesium 1.8, troponin negative x1, NTproBNP 463. Current cardiac medications include atenolol 12.5 mg daily, Plavix 75 mg daily, atorvastatin 40 mg daily, Eliquis 5 mg twice a day and Cardizem 30 mg 3 times a day. Most recent echocardiogram obtained January 2021 reveals preserved LV systolic function with ejection fraction 55-60%, mild aortic stenosis with a mean gradient of 13 mmHg. 04/18/2021 Seen and examined laying flat in bed in no acute distress. She is currently maintaining sinus rhythm with a heart rate in the 90s. Blood pressure 99/60. She is complaining of pain in her neck worse when she turns her head from side to side. She has no chest pain, palpitations or shortness of breath. Patient is scheduled to undergo colonoscopy with Dr. Flores tomorrow. PHYSICAL EXAMINATION Blood pressure 110/64 heart rate 106 afebrile and maintaining oxygen saturation on nasal cannula. CONSTITUTIONAL: No apparent distress. HEENT: Head is normocephalic. Pupils are equal, round. Sclerae anicteric. Mucous membranes of the mouth are moist. No JVD. No carotid bruit. CHEST EXAMINATION: Lungs are clear to auscultation. No chest wall tenderness is noted on palpation or with deep breathing. HEART EXAMINATION: Regular rate and rhythm. S1, S2 heard. Systolic ejection murmur at the base, no gallops or rub. EXTREMITIES: 2+ peripheral pulses, no lower extremity edema and no calf tenderness. ASSESSMENT Sinus tachycardia Paroxysmal atrial fibrillation on eliquis already for history of DVT/PE Urinary tract infection Hypokalemia Diabetes mellitus Hypertension Dyslipidemia PLAN Initiate oral amiodarone 400 mg twice a day. Discontinue Cardizem infusion. Clinically stable to undergo colonoscopy as recommended. Ongoing telemetry monitoring. Further recommendations to follow based upon clinical course. Nurse Practitioner note has been reviewed, I agree with a documented findings and plan of care. Patient was seen and examined. Objective - Vital Signs Vital signs: Vital Signs Temp 97.8 F 04/18/21 08:23 Pulse 101 H 04/18/21 08:23 Resp 18 04/18/21 08:23 BP 140/87 04/18/21 08:23 Pulse Ox 97 04/18/21 08:23 Intake & Output 04/17/21 04/18/21 04/18/21 18:59 06:59 18:59 Intake Total 845 389.725 360 Output Total 750 1225 Balance 95 -835.275 360 Weight 63.5 kg 63 kg Intake: Intake, IV Titration 125 149.725 Amount Amiodarone 450 mg In 149.725 Dextrose 5% in Water 250 ml @ 0.5 MG/MIN 16.667 mls/hr IV .Q15H [facility]OS Rx#: [id number] Diltiazem 125 mg In 125 Sodium Chloride 0.9% 100 ml @ 5 MG/HR 5 mls/hr IV .Q24H SANTOS Rx#:[id number] Oral 720 240 360 Output: Urine 750 1225 Other: Voiding Method External Catheter External Catheter External Catheter - Labs CBC & Chem 7: 04/17/21 09:33 04/17/21 09:33 Labs: Abnormal Lab Results - Last 24 Hours (Table) 04/17/21 04/17/21 04/17/21 Range/Units 11:45 16:56 20:16 POC Glucose (mg/dL) 179 H 236 H (75-99) mg/dL Urine Appearance Cloudy H (Clear) Urine Protein Trace H (Negative) Urine Glucose (UA) 4+ H (Negative) Urine Ketones Trace H (Negative) Urine Blood Small H (Negative) Ur Leukocyte Esterase Large H (Negative) Urine RBC 9 H (0-5) /hpf Urine WBC >182 H (0-5) /hpf Urine WBC Clumps Few H (None) /hpf Urine Bacteria Few H (None) /hpf Urine Mucus Rare H (None) /hpf 04/17/21 04/18/21 Range/Units 20:44 06:28 POC Glucose (mg/dL) 224 H 167 H (75-99) mg/dL Urine Appearance (Clear) Urine Protein (Negative) Urine Glucose (UA) (Negative) Urine Ketones (Negative) Urine Blood (Negative) Ur Leukocyte Esterase (Negative) Urine RBC (0-5) /hpf Urine WBC (0-5) /hpf Urine WBC Clumps (None) /hpf Urine Bacteria (None) /hpf Urine Mucus (None) /hpf Microbiology - Last 24 Hours (Table) 04/17/21 20:16 Urine Culture - Preliminary Urine,Voided 04/15/21 14:17 Blood Culture - Preliminary Blood No Growth after 48 hours 04/15/21 14:17 Blood Culture - Preliminary Blood No Growth after 48 hours
--- NOTE | 2021-04-18 13:37 | PN ---
PROGRESS NOTE DATE OF SERVICE: 04/18/2021 REASON FOR FOLLOWUP: Urinary tract infection. INTERVAL HISTORY: The patient is afebrile. The patient is currently breathing comfortably. She is complaining of some pain to the neck and the left area. No chest pain, shortness of breath or cough. No abdominal pain or diarrhea. PHYSICAL EXAMINATION: Blood pressure 99/60 with a pulse of 87, temperature 97.9. She is 99% on room air. GENERAL DESCRIPTION: General description is an elderly female lying in bed in no distress. RESPIRATORY SYSTEM: Unlabored breathing. Clear to auscultation anteriorly. HEART: S1, S2. Regular rate and rhythm. ABDOMEN: Soft. No tenderness. EXTREMITIES: No edema of the feet. LABS: Repeat urine done yesterday tested positive. DIAGNOSTIC IMPRESSION AND PLAN: Patient admitted to hospital with mental status changes, multifactorial. There is a component of symptomatic urinary tract infection with recent culture positive for a drug-resistant Citrobacter. Patient is on meropenem; to continue while waiting for this repeat culture to finalize and monitor clinical course closely. Continue supportive care. Daughter at the bedside. Questions were answered. MMODL / IJN: [id number] /
[2021-04-18 17:03] LABS: Glucose,Whole Blood 149 mg/dL (75-99)
[2021-04-18 20:33] LABS: Glucose,Whole Blood 208 mg/dL (75-99)
[2021-04-18] MEDS: IPRATROPIUM BROMIDE 0.06% NASAL SPRAY (15 ML) EA NOSTRIL SCH ×2 (20:54→21:13)
[2021-04-18] MEDS: CLOPIDOGREL 75 MG TAB PO SCH (21:12)
[2021-04-18] MEDS: TEMAZEPAM 15 MG CAP PO SCH (21:12)
[2021-04-18] MEDS: DULoxetine HCL 60 MG CAPSULE.DR PO SCH (21:12)
[2021-04-18] MEDS: ATORVASTATIN 40 MG TAB PO SCH (21:12)
[2021-04-18] MEDS: DULoxetine HCL 30 MG CAPSULE.DR PO SCH (21:12)
[2021-04-18] MEDS: LEVOTHYROXINE 25 MCG TAB PO SCH (21:12)
[2021-04-18] MEDS: rOPINIRole HCL 4 MG TABLET PO SCH (22:18)
[2021-04-19] MEDS: GABAPENTIN 300 MG CAP PO SCH ×3 (05:35→20:48)
[2021-04-19] MEDS: MIDODRINE 5 MG TAB PO SCH ×3 (05:35→15:54)
[2021-04-19 05:51] LABS: Glucose,Whole Blood 116 mg/dL (75-99)
[2021-04-19] MEDS: MEROPENEM 1 GM in SODIUM CHLORIDE 0.9% 100 ML IVPB SCH ×2 (05:56→14:51)
[2021-04-19] MEDS: INSULIN ASPART (NovoLOG) 100 UNIT/ML VIAL SQ SCH ×4 (05:56→21:02)
[2021-04-19] MEDS: AMIODARONE 200 MG TAB PO SCH ×2 (08:30→20:48)
[2021-04-19] MEDS: KETOROLAC 15 MG/ML 1 ML VIAL IVP PRN (08:43)
[2021-04-19 08:50] LABS: HCT 33.1 % (34.0-46.0); HGB 10.5 gm/dL (11.4-16.0); Hypochromasia Slight; MCH 27.5 pg (25.0-35.0); MCHC 31.6 g/dL (31.0-37.0); MCV 86.8 fL (80.0-100.0); Mean Platelet Volume 6.8; Platelet Count 309 k/uL (150-450); Poikilocytosis Slight; RBC 3.82 m/uL (3.80-5.40); RDW 15.5 % (11.5-15.5); WBC 3.9 k/uL (3.8-10.6)
[2021-04-19 09:18] LABS: African American GFR (CKD) >90 (>60 ml/min/1.73 sqM); Anion Gap 9 mmol/L; Blood Urea Nitrogen 3 mg/dL (7-17); Calcium 8.5 mg/dL (8.4-10.2); Carbon Dioxide 27 mmol/L (22-30); Chloride 104 mmol/L (98-107); Glucose 135 mg/dL (74-99); Non-African American GFR(CKD) >90 (>60 ml/min/1.73 sqM); Sodium 140 mmol/L (137-145)
[2021-04-19] MEDS ORDERED: PROPOFOL 10 MG/ML 20 ML VIAL IV ONE (09:27)
[2021-04-19] MEDS ORDERED: LIDOCAINE 1% INJ 10MG/ML (20 ML MDV) ONE (09:27)
[2021-04-19 09:29] LABS: Potassium 2.7 mmol/L (3.5-5.1)
[2021-04-19] MEDS ORDERED: IV FLUID CONTINUATION 1,000 ML IV ONE ×2 (09:29)
[2021-04-19] MEDS ORDERED: POTASSIUM CHLORIDE ER 20 MEQ TAB.ER PO SCH ×2 (10:00→19:00)
--- NOTE | 2021-04-19 10:14 | P.PCN ---
Date of Procedure: 04/19/21 Preoperative Diagnosis: Recurrent UTI, possible colovesical fistula, colon cancer screening Postoperative Diagnosis: Colon polyps Procedure(s) Performed: Colonoscopy with polypectomy Anesthesia: MAC Surgeon: Jessica Flores Pathology: other Condition: stable Disposition: floor Indications for Procedure: Patient had recurring urinary tract infections colonoscopy was requested for possible colovesical fistula. Description of Procedure: The patient is taken to the endoscopy suite where colonoscope is passed per rectum to the cecum. She had a fairly good prep. There is some liquid material which is easily aspirated. She has multiple polyps. At the hepatic flexure there is 3 mm of 45 mm in size. There is a larger one is about 2 cm in size which was able to be biopsied but not totally removed. It was tattooed. There were 3 other polyps in that area which were noted hot biopsy forceps. The transverse colon there is multiple small polyps 5-7 mm removed with hot biopsy forceps. Distal transverse colon there is a larger sessile polyp about 1.4 cm in size removed with a polypectomy snare a long with a subcentimeter one next to it. At about 50 cm there are small polyps biopsied and destroyed with hot biopsy forceps. Aggressive colon was without evidence of mass lesion ulcer or diverticuli. The sigmoid colon was flexible and no diverticulosis was visualized on insertion and removal of the scope. She tolerated the procedure without difficulty was taken recovery room in satisfactory condition. We'll call with the report of the biopsies as to when she should have a repeat colonoscopy. Polyp in the hepatic flexure could not be totally removed because of location so that will need to be removed in a piecemeal manner down the road. She'll be started on a diet.
[2021-04-19 10:20] LABS: Magnesium 1.5 mg/dL (1.6-2.3)
--- NOTE | 2021-04-19 10:43 | P.PN ---
Subjective Progress Note Date: 04/19/21 81-year-old female with multiple medical problem who was one of Dr. Rocha patient is known to have factor V Leiden Yoshi deficiency, type 2 diabetes, non- Hodgkin's lymphoma, severe compression and bulging disc involving 3 lumbar spine vertebrae which patient has been seen Dr. Nathan and had surgical intervention in the past. Patient had severe abnormal mobility balance and gait ended up in the care home rehab for a few weeks every time she is hospitalized. Patient was hospitalized at [facility] 03/29/2021 because of hypoxia and aspiration pneumonia was the hospital to the 15 she become very debilitated not been able template and walk and decided the best option course to have patient go to [facility] on the [place] [facility]. Patient has been there for the last few days she developed to have worsening symptoms with fever, chills, altered mental status with worsening lower abdominal pain and discomfort patient was not acting herself noticed by [facility] staff will call Dr. Avelar and have patient transferred to [facility] department at [facility] with temperature of 101 at the time slightly elevated white blood cell. 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 Patient was post to see general surgery and plan to do surgical correction at some point. After presentation to [facility] patient was not acting herself initially more confused mildly hypotensive remain anemic no major abnormality with electrolyte imbalance. UA can was very positive at this time patient be started on Zosyn. The IV. 04/16: Patient had heart rate up to 197 then 124, Cardizem drip was started and subsequently discontinued. secured entrance monitor was sinus tachycardia. She is now running at 102, blood pressure 103/64, pulse ox 95% on 3 L nasal cannula. Patient has been afebrile. Blood sugars are running between 134 and 166. Urine culture is in progress. Patient has been seen by cardiology and recommended oral Cardizem and atenolol. Patient has been seen by Dr. Lee with rec ommendations to continue meropenem. Dr. Flores is also in place. 04/17: Dr. Flores contacted by Dr. Farooq via phone call regarding consult and she will be in to see the patient. Patient has had A. fib with RVR and Cardizem drip was started. She apparently went up to 140 bpm and Cardizem was up to 15 mg per hour. This appears to have been stopped and there is an order for amiodarone from cardiology. She is afebrile, heart rate 114, blood pressure 136/69, pulse ox 99% on 3 L nasal cannula. Patient is eating 25-75% of her meals. 04/18: Dr. Flores has evaluated the patient with plan for colonoscopy on Wednesday. Patient's heart rate is now running between 87 and 107 sinus rhythm. She is off Cardizem drip and amiodarone drip, transitioned to oral amiodarone 400 mg twice daily continued on atenolol 12.[address] Lee is ordered for a new urinalysis which was cloudy, leukoesterase large, WBC is greater than 182, WBC clumps few and repeat urine culture is in progress. Patient is continued on IV meropenem. Patient states abdominal pain is running 23/10. Blood sugars are running between 167 and 236. Anticipate discharge back to [facility] on Thursday 04/19: Patient is scheduled for a colonoscopy with Dr. Flores today. Patient is complaining of jaw and bilateral ear pain. Upon examination it appears that it may be related to TMJ, patient has no rash or signs of Benz's Familia. She is also complaining of jumping sensation to lower extremities. Her potassium this morning was 2.7. We will replace with a total of 160 mEq of oral potassium. Patient remained afebrile, heart rate 116, respirations 18, blood pressure 142/90, pulse ox 95% on room air. Patient states that abdominal pain is improving. Anticipated discharge back to [facility] on Wednesday. REVIEW OF SYSTEMS Constitutional: No fever, no chills, no night sweats. No weight change. Positive generalized fatigue tiredness lethargy and slight sleepy. EENT: No headache. No blurred vision or double vision, no loss of vision. No nasal drainage or congestion. No epistaxis. No sore throat. Reports bilateral ear and jaw pain Lungs: Slight shortness of breath mild cough no sputum production Cardiovascular: No chest pain or angina continue to have mild arrhythmia on and off mild PND and shortness of breath with exertion. Abdominal: mild abdominal pain. No nausea, vomiting. No diarrhea. No constipation. No bloody or tarry stools.. Mild loss of appetite. 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 Musculoskeletal: No myalgias. No muscle weakness, no gait dysfunction, no frequent falls. No back pain. No neck pain. Integumentary: No wounds, no lesions. No rash or pruritus. No unusual bruising. No change in hair or nails. Neurologic: No aphasia. No facial droop. mild change in mentation. No head injur y. No headache. No paralysis. No paresthesia. Psychiatric: No depression. No anxiety. No mood swings. Endocrine: No abnormal blood sugars. No weight change. No excessive sweating or thirst. No cold intolerance. PHYSICAL EXAMINATION Gen: This is a 81-year-old elderly, patient is resting in bed appears to be comfortable and in no acute distress. HEENT: Head is atraumatic, normocephalic. Pupils equal, round. Positive slight jaundice. NECK: Supple. No JVD. No lymphadenopathy. No thyromegaly. LUNGS: Decreased breath some bilaterally with fine rhonchi mild expiratory wheezes. HEART: Irregular rate and rhythm. No murmur. ABDOMEN: Soft. Bowel sounds are present. No masses. Slight discomfort left lower quadrant area and right lower quadrant area as well with positive pulse. EXTREMITIES: No pedal edema. No calf tenderness. NEUROLOGICAL: Patient is awake, alert and oriented x3. Cranial nerves 2 through 12 are grossly intact. ASSESSMENT AND PLAN 1. Metabolic encephalopathy: Most likely from UTI with worsening symptoms lately, blood and urine culture be done, consult with Dr. Jesus valencia, continue meropenem. Repeat urine culture in progress 2 recurrent urinary tract infection: Patient is having multiple episodes closer to each other continue to watch symptoms closely and treat patient is that more aggressively every time. 3 chronic pain syndrome: Has been on gabapentin and hydrocodone. 4 hypothyroidism: Continue patient on levothyroxin 12.5 g daily. 5. Hypokalemia. Replace potassium for a total of 160 mEq, repeat potassium later today and tomorrow. 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 7 type 2 diabetes: Continue on Tradjenta and Humalog per sliding scales coverage and still on Synjardy/Metformin mg daily. 8 severe neuropathy: Remain on gabapentin. 9 chronic back pain post surgery and pain management continue on hydrocodone and muscle relaxer. 10 severe PAD with arterial thrombosis post subclavian surgery patient was kept on Eliquis and Plavix. 11 chronic depression: Has been on Cymbalta 30 mg a day. 12 A. fib with RVR, paroxysmal atrial fibrillation. Continue atenolol continue Eliquis as well. Continue amiodarone 400 mg twice daily oral, consult appreciated. 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 Dr. Flores is scheduled patient for colonoscopy on Wednesday. 14. Bilateral ear and jaw pain. Flexeril 5 mg at night. 15 GI prophylaxis: Remain on omeprazole 20 mg a day. 16 DVT prophylaxis: Continue Eliquis. 17. COVID-19 testing was negative. DISCHARGE PLAN Return to [facility] on Wednesday Impression and plan of care have been directed as dictated by the signing physician. Chioma Al nurse practitioner acting as scribe for signing physician. Objective - Vital Signs Vital signs: Vital Signs Temp 98.3 F 04/19/21 08:29 Pulse 99 04/19/21 10:25 Resp 16 04/19/21 10:25 BP 125/61 04/19/21 10:25 Pulse Ox 93 L 04/19/21 10:25 Intake & Output 04/18/21 04/19/21 04/19/21 18:59 06:59 18:59 Intake Total 1080 2000 500 Output Total 1400 300 300 Balance -320 1700 200 Weight 65.2 kg Intake: IV 500 Oral 1080 2000 Output: Urine 1400 300 Urine/Stool Mix 300 Other: Voiding Method External Catheter Diaper # Voids 2 # Bowel Movements 2 - Labs CBC & Chem 7: 04/19/21 08:10 04/19/21 08:10 Labs: Abnormal Lab Results - Last 24 Hours (Table) 04/18/21 04/18/21 04/18/21 Range/Units 11:42 17:01 20:02 Hgb (11.4-16.0) gm/dL Hct (34.0-46.0) % Potassium (3.5-5.1) mmol/L BUN (7-17) mg/dL Creatinine (0.52-1.04) mg/dL Glucose (74-99) mg/dL POC Glucose (mg/dL) 175 H 149 H 208 H (75-99) mg/dL Magnesium (1.6-2.3) mg/dL 04/19/21 04/19/21 04/19/21 Range/Units 05:42 08:10 08:10 Hgb 10.5 L (11.4-16.0) gm/dL Hct 33.1 L (34.0-46.0) % Potassium 2.7 L* (3.5-5.1) mmol/L BUN 3 L (7-17) mg/dL Creatinine 0.36 L (0.52-1.04) mg/dL Glucose 135 H (74-99) mg/dL POC Glucose (mg/dL) 116 H (75-99) mg/dL Magnesium 1.5 L (1.6-2.3) mg/dL Microbiology - Last 24 Hours (Table) 04/15/21 14:17 Blood Culture - Preliminary Blood No Growth after 72 hours 04/15/21 14:17 Blood Culture - Preliminary Blood No Growth after 72 hours
[2021-04-19] MEDS ORDERED: Magnesium Replacement Protocol 1 EACH MISC MISCELLANE PRN (11:16)
[2021-04-19 12:11] LABS: Glucose,Whole Blood 129 mg/dL (75-99)
[2021-04-19] MEDS: MAGNESIUM SULFATE-D5W PMX 1 GM in DEXTROSE/WATER 1 100ML.BAG IVPB SCH ×2 (12:17→13:44)
[2021-04-19] MEDS: POTASSIUM CHLORIDE ER 20 MEQ TAB.ER PO SCH ×4 (12:21→17:53)
[2021-04-19] MEDS: allopurinoL 100 MG TAB PO SCH (12:21)
[2021-04-19] MEDS: APIXABAN 5 MG TAB PO SCH ×2 (12:21→20:48)
[2021-04-19] MEDS: CALCIUM CARB-VIT D 500 MG-5 MCG TAB PO SCH (12:21)
[2021-04-19] MEDS: IPRATROPIUM BROMIDE 0.06% NASAL SPRAY (15 ML) EA NOSTRIL SCH ×2 (12:22→20:49)
[2021-04-19] MEDS: METFORMIN HCL PO SCH (12:22)
[2021-04-19] MEDS: FLUDROCORTISONE 0.1 MG TAB PO SCH (12:22)
[2021-04-19] MEDS: EMPAGLIFLOZIN PO SCH (12:22)
[2021-04-19] MEDS: TRIHEXYPHENIDYL 2 MG TAB PO SCH (12:23)
[2021-04-19] MEDS: LINAGLIPTIN 5 MG TABLET PO SCH (12:23)
--- NOTE | 2021-04-19 15:16 | P.PN ---
Subjective Progress Note Date: 04/19/21 HISTORY OF PRESENTING ILLNESS This is a pleasant 81-year-old female past medical history significant for hypertension, dyslipidemia, diabetes mellitus, CVA, sinus tachycardia, peripheral vascular disease and history of PE/DVT with factor V. She follows in the office with Dr. Pak. We have been asked to see in consultation for sinus tachycardia. She presented to the hospital with family secondary to increasing confusion and weakness. She was found to have a urinary tract infection. Initial EKG on admission revealed sinus tachycardia heart rate 132 with incomplete right bundle branch block. Through the night she went into SVT rates 180-200. An A- team was called and she was transferred to with a cardizem gtt ordered. She has been back in the 100-120 range since initiation. Currently SR 106. She denies chest pain, shortness of breath, dizziness or palpitations. She is complaining of a headache and left leg pain. She is currently wearing an event monitor from the office that Dr. Pak applied in the office. Chest x-ray is negative for an acute cardiopulmonary process. CT brain/c-spine negative for an acute intracranial abnormalities. Laboratory data reviewed, WBC 8.6, hgb 10.5, plt 275, sodium 136, potassium 3.3, creatinine 0.47, magnesium 1.8, troponin negative x1, NTproBNP 463. Current cardiac medications include atenolol 12.5 mg daily, Plavix 75 mg daily, atorvastatin 40 mg daily, Eliquis 5 mg twice a day and Cardizem 30 mg 3 times a day. Most recent echocardiogram obtained January 2021 reveals preserved LV systolic function with ejection fraction 55-60%, mild aortic stenosis with a mean gradient of 13 mmHg. 04/18/2021 Seen and examined laying flat in bed in no acute distress. She is currently maintaining sinus rhythm with a heart rate in the 90s. Blood pressure 99/60. She is complaining of pain in her neck worse when she turns her head from side to side. She has no chest pain, palpitations or shortness of breath. Patient is scheduled to undergo colonoscopy with Dr. Flores tomorrow. 04/19/2021 Patient remains in sinus rhythm with rate control in the 90s. She underwent colonoscopy this morning with Dr. Flores that found colon polyps including polyps in the hepatic flexure could not be totally removed because location need to be removed piecemeal. Patient denies having any chest pain or shortness of breath. PHYSICAL EXAMINATION Blood pressure 143/65 heart rate 97 afebrile and maintaining oxygen saturation on nasal cannula. CONSTITUTIONAL: No apparent distress. HEENT: Head is normocephalic. Pupils are equal, round. Sclerae anicteric. Mucous membranes of the mouth are moist. No JVD. No carotid bruit. CHEST EXAMINATION: Lungs are clear to auscultation. No chest wall tenderness is noted on palpation or with deep breathing. HEART EXAMINATION: Regular rate and rhythm. S1, S2 heard. Systolic ejection murmur at the base, no gallops or rub. EXTREMITIES: 2+ peripheral pulses, no lower extremity edema and no calf tenderness. ASSESSMENT Sinus tachycardia Paroxysmal atrial fibrillation on eliquis already for history of DVT/PE Urinary tract infection Hypokalemia Diabetes mellitus Hypertension Dyslipidemia PLAN Continue oral amiodarone 400 mg twice a day. Ongoing telemetry monitoring. Further recommendations to follow based upon clinical course. Nurse Practitioner note has been reviewed, I agree with a documented findings and plan of care. Patient was seen and examined. Objective - Vital Signs Vital signs: Vital Signs Temp 98.3 F 04/19/21 08:29 Pulse 97 04/19/21 11:40 Resp 16 04/19/21 11:40 BP 143/65 04/19/21 11:40 Pulse Ox 96 04/19/21 11:40 Intake & Output 04/18/21 04/19/21 04/19/21 18:59 06:59 18:59 Intake Total 1080 2000 500 Output Total 1400 300 300 Balance -320 1700 200 Weight 65.2 kg Intake: IV 500 Oral 1080 2000 Output: Urine 1400 300 Urine/Stool Mix 300 Other: Voiding Method External Catheter Diaper Diaper # Voids 2 # Bowel Movements 2 - Labs CBC & Chem 7: 04/19/21 08:10 04/19/21 08:10 Labs: Abnormal Lab Results - Last 24 Hours (Table) 04/18/21 04/18/21 04/19/21 Range/Units 17:01 20:02 05:42 Hgb (11.4-16.0) gm/dL Hct (34.0-46.0) % Potassium (3.5-5.1) mmol/L BUN (7-17) mg/dL Creatinine (0.52-1.04) mg/dL Glucose (74-99) mg/dL POC Glucose (mg/dL) 149 H 208 H 116 H (75-99) mg/dL Magnesium (1.6-2.3) mg/dL 04/19/21 04/19/21 Range/Units 08:10 08:10 Hgb 10.5 L (11.4-16.0) gm/dL Hct 33.1 L (34.0-46.0) % Potassium 2.7 L* (3.5-5.1) mmol/L BUN 3 L (7-17) mg/dL Creatinine 0.36 L (0.52-1.04) mg/dL Glucose 135 H (74-99) mg/dL POC Glucose (mg/dL) (75-99) mg/dL Magnesium 1.5 L (1.6-2.3) mg/dL Microbiology - Last 24 Hours (Table) 04/15/21 14:17 Blood Culture - Preliminary Blood No Growth after 72 hours 04/15/21 14:17 Blood Culture - Preliminary Blood No Growth after 72 hours
[2021-04-19] MEDS: bisacodyL 5 MG TABLET.DR PO SCH (15:35)
[2021-04-19 17:10] LABS: Glucose,Whole Blood 247 mg/dL (75-99)
[2021-04-19] MEDS ORDERED: VANCOMYCIN IV PER PHARMACY 1 EACH MISC MISCELLANE PRN ×2 (18:00→22:01)
[2021-04-19 18:08] LABS: Iron 20 ug/dL (50-170)
[2021-04-19] MEDS ORDERED: VANCOMYCIN 1,250 MG in SODIUM CHLORIDE 0.9% 250 ML IVPB ONE (18:45)
--- NOTE | 2021-04-19 19:40 | PN ---
PROGRESS NOTE DATE OF SERVICE: 04/19/2021. REASON FOR FOLLOW UP: Recurrent urinary tract infection. INTERVAL HISTORY: The patient is afebrile. The patient is breathing comfortably. The patient is status post colonoscopy this morning for concern for possible colovesical fistula. She was noticed to have some bowel which has been removed. The patient tolerated the procedure. No chest pain. No abdominal pain. No vomiting or diarrhea. PHYSICAL EXAMINATION: Blood pressure 150/74 with a pulse of 85, temperature 98.1. She is 98% on room air. General description is an elderly female lying in bed in no distress. Respiratory system: Unlabored breathing, clear to auscultation. Heart S1, S2. Regular rate and rhythm. Abdomen soft, no tenderness. LABS: Hemoglobin is 10.2, white count 3.9, BUN of 3, creatinine 0.36. DIAGNOSTIC IMPRESSION AND PLAN: Patient with recurrent urinary tract infection, urine culture now showing Enterococcus. The patient did have multiple antibiotic allergies including penicillin. Antibiotic was adjusted to vancomycin. Discontinue meropenem and monitor clinical course closely. MMODL / IJN: [id number] /
[2021-04-19] MEDS: LEVOTHYROXINE 25 MCG TAB PO SCH (20:48)
[2021-04-19] MEDS: CLOPIDOGREL 75 MG TAB PO SCH (20:48)
[2021-04-19] MEDS: DULoxetine HCL 30 MG CAPSULE.DR PO SCH (20:48)
[2021-04-19] MEDS: DULoxetine HCL 60 MG CAPSULE.DR PO SCH (20:48)
[2021-04-19] MEDS: ATORVASTATIN 40 MG TAB PO SCH (20:48)
[2021-04-19] MEDS: TEMAZEPAM 15 MG CAP PO SCH (20:48)
[2021-04-19] MEDS: rOPINIRole HCL 4 MG TABLET PO SCH (20:48)
[2021-04-19 20:49] LABS: Glucose,Whole Blood 291 mg/dL (75-99)
[2021-04-19] MEDS: SODIUM CHLORIDE 0.9% 1,000 ML IV SCH (20:49)
[2021-04-19] MEDS ORDERED: CYCLOBENZAPRINE 5 MG TAB PO SCH (21:00)
[2021-04-20 05:48] LABS: Glucose,Whole Blood 154 mg/dL (75-99)
[2021-04-20] MEDS: MIDODRINE 5 MG TAB PO SCH ×3 (06:23→16:36)
[2021-04-20] MEDS: GABAPENTIN 300 MG CAP PO SCH ×3 (06:23→20:55)
[2021-04-20] MEDS: INSULIN ASPART (NovoLOG) 100 UNIT/ML VIAL SQ SCH ×4 (06:23→21:06)
[2021-04-20] MEDS: CALCIUM CARB-VIT D 500 MG-5 MCG TAB PO SCH (08:40)
[2021-04-20] MEDS: FLUDROCORTISONE 0.1 MG TAB PO SCH (08:40)
[2021-04-20] MEDS: AMIODARONE 200 MG TAB PO SCH ×2 (08:40→20:53)
[2021-04-20] MEDS: LINAGLIPTIN 5 MG TABLET PO SCH (08:40)
[2021-04-20] MEDS: allopurinoL 100 MG TAB PO SCH (08:40)
[2021-04-20] MEDS: APIXABAN 5 MG TAB PO SCH ×2 (08:40→20:53)
[2021-04-20] MEDS: TRIHEXYPHENIDYL 2 MG TAB PO SCH (08:40)
[2021-04-20] MEDS: KETOROLAC 15 MG/ML 1 ML VIAL IVP PRN (08:41)
[2021-04-20] MEDS: IPRATROPIUM BROMIDE 0.06% NASAL SPRAY (15 ML) EA NOSTRIL SCH ×2 (08:42→20:55)
[2021-04-20] MEDS: EMPAGLIFLOZIN PO SCH (08:42)
[2021-04-20] MEDS: bisacodyL 5 MG TABLET.DR PO SCH (08:42)
[2021-04-20] MEDS: METFORMIN HCL PO SCH (08:42)
--- NOTE | 2021-04-20 09:45 | P.PN ---
Subjective Progress Note Date: 04/20/21 81-year-old female with multiple medical problem who was one of Dr. Rocha patient is known to have factor V Leiden Yoshi deficiency, type 2 diabetes, non- Hodgkin's lymphoma, severe compression and bulging disc involving 3 lumbar spine vertebrae which patient has been seen Dr. Nathan and had surgical intervention in the past. Patient had severe abnormal mobility balance and gait ended up in the [facility] for a few weeks every time she is hospitalized. Patient was hospitalized at [facility] 03/29/2021 because of hypoxia and aspiration pneumonia was the hospital to the 15 she become very debilitated not been able template and walk and decided the best option course to have patient go to [facility] the [place] [facility]. Patient has been there for the last few days she developed to have worsening symptoms with fever, chills, altered mental status with worsening lower abdominal pain and discomfort patient was not acting herself noticed by [facility] staff will call Dr. Avelar and have patient transferred to [facility] department at [facility] with temperature of 101 at the time slightly elevated white blood cell. 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 Patient was post to see general surgery and plan to do surgical correction at some point. After presentation to [facility] patient was not acting herself initially more confused mildly hypotensive remain anemic no major abnormality with electrolyte imbalance. UA can was very positive at this time patient be started on Zosyn. The IV. 04/16: Patient had heart rate up to 197 then 124, Cardizem drip was started and subsequently discontinued. 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 She is now running at 102, blood pressure 103/64, pulse ox 95% on 3 L nasal cannula. Patient has been afebrile. Blood sugars are running between 134 and 166. Urine culture is in progress. Patient has been seen by cardiology and recommended oral Cardizem and atenolol. Patient has been seen by Dr. Lee with rec ommendations to continue meropenem. Dr. Flores is also in place. 04/17: Dr. Flores contacted by Dr. Farooq via phone call regarding consult and she will be in to see the patient. Patient has had A. fib with RVR and Cardizem drip was started. She apparently went up to 140 bpm and Cardizem was up to 15 mg per hour. This appears to have been stopped and there is an order for amiodarone from cardiology. She is afebrile, heart rate 114, blood pressure 136/69, pulse ox 99% on 3 L nasal cannula. Patient is eating 25-75% of her meals. 04/18: Dr. Flores has evaluated the patient with plan for colonoscopy on Wednesday. Patient's heart rate is now running between 87 and 107 sinus rhythm. She is off Cardizem drip and amiodarone drip, transitioned to oral amiodarone 400 mg twice daily continued on atenolol 12.[address] Lee is ordered for a new urinalysis which was cloudy, leukoesterase large, WBC is greater than 182, WBC clumps few and repeat urine culture is in progress. Patient is continued on IV meropenem. Patient states abdominal pain is running 23/10. Blood sugars are running between 167 and 236. Anticipate discharge back to [facility] on Thursday 04/19: Patient is scheduled for a colonoscopy with Dr. Flores today. Patient is complaining of jaw and bilateral ear pain. Upon examination it appears that it may be related to TMJ, patient has no rash or signs of Benz's Familia. She is also complaining of jumping sensation to lower extremities. Her potassium this morning was 2.7. We will replace with a total of 160 mEq of oral potassium. Patient remained afebrile, heart rate 116, respirations 18, blood pressure 142/90, pulse ox 95% on room air. Patient states that abdominal pain is improving. Anticipated discharge back to [facility] on Wednesday. 04/20: Patient is found resting comfortably in bed complaining of bilateral jaw pain and lower extremity discomfort including restless leg. Patient had her potassium and magnesium replaced yesterday. Repeat potassium 3.6, repeat mag 1.5. Antibiotics changed to Vanco per the culture results. Patient currently is tachycardic and on Cordarone. Suggested to stop the atenolol due to ulcerations of bilateral hands and perhaps start dig. Awaiting cardiology. Will increase Flexeril to 5 mg at night and Toradol 10 mg every 6 hours scheduled. REVIEW OF SYSTEMS Constitutional: No fever, no chills, no night sweats. No weight change. Positive generalized fatigue tiredness lethargy and slight sleepy. EENT: No headache. No blurred vision or double vision, no loss of vision. No nasal drainage or congestion. No epistaxis. No sore throat. Reports bilateral ear and jaw pain Lungs: Slight shortness of breath mild cough no sputum production Cardiovascular: No chest pain or angina continue to have mild arrhythmia on and off mild PND and shortness of breath with exertion. Abdominal: mild abdominal pain. No nausea, vomiting. No diarrhea. No constipation. No bloody or tarry stools.. Mild loss of appetite. Genitourinary: Recurrent UTI with possible fistula between the ileum and the herb dder causing recurrent infection. Musculoskeletal: No myalgias. No muscle weakness, no gait dysfunction, no frequent falls. No back pain. No neck pain. Integumentary: No wounds, no lesions. No rash or pruritus. No unusual bruising. No change in hair or nails. Neurologic: No aphasia. No facial droop. mild change in mentation. No head injury. No headache. No paralysis. No paresthesia. Psychiatric: No depression. No anxiety. No mood swings. Endocrine: No abnormal blood sugars. No weight change. No excessive sweating or thirst. No cold intolerance. PHYSICAL EXAMINATION Gen: This is a 81-year-old elderly, patient is resting in bed appears to be comfortable and in no acute distress. HEENT: Head is atraumatic, normocephalic. Pupils equal, round. Positive slight jaundice. NECK: Supple. No JVD. No lymphadenopathy. No thyromegaly. LUNGS: Decreased breath some bilaterally with fine rhonchi mild expiratory wheezes. HEART: Irregular rate and rhythm. No murmur. ABDOMEN: Soft. Bowel sounds are present. No masses. Slight discomfort left lower quadrant area and right lower quadrant area as well with positive pulse. EXTREMITIES: No pedal edema. No calf tenderness. NEUROLOGICAL: Patient is awake, alert and oriented x3. Cranial nerves 2 through 12 are grossly intact. ASSESSMENT AND PLAN 1. Metabolic encephalopathy: Most likely from UTI with worsening symptoms lately, blood and urine culture be done, consult with Dr. Lee appreciated, continue meropenem discontinued and vancomycin started her infectious disease. 2 recurrent urinary tract infection: Patient is having multiple episodes closer to each other continue to watch symptoms closely and treat patient is that more aggressively every time. Colonoscopy does not show a fistula between the bladder and bowel. 3 chronic pain syndrome: Has been on gabapentin and hydrocodone. 4 hypothyroidism: Continue patient on levothyroxin 12.5 g daily. 5. Hypokalemia. Replace potassium for a total of 160 mEq, repeat potassium later today and tomorrow. 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 7 type 2 diabetes: Continue on Tradjenta and Humalog per sliding scales coverage and still on Synjardy/Metformin mg daily. 8 severe neuropathy: Remain on gabapentin. 9 chronic back pain post surgery and pain management continue on hydrocodone and muscle relaxer. 10 severe PAD with arterial thrombosis post subclavian surgery patient was kept on Eliquis and Plavix. 11 chronic depression: Has been on Cymbalta 30 mg a day. 12 A. fib with RVR, paroxysmal atrial fibrillation. Continue atenolol continue Eliquis as well. Continue amiodarone 400 mg twice daily oral, consult appreciated. 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 Dr. Flores is scheduled patient for colonoscopy on Wednesday - no connection was found. 14. Bilateral ear and jaw pain. Increase Flexeril 10 mg daily at bedtime. Toradol 10 mg every 6 hours. 15. Hypomagnesium. Continue to replace magnesium and repeat levels 16 GI prophylaxis: Remain on omeprazole 20 mg a day. 17 DVT prophylaxis: Continue Eliquis. 18. COVID-19 testing was negative. DISCHARGE PLAN Return to [facility] on Wednesday Impression and plan of care have been directed as dictated by the signing mikey [email or web address]. Chioma Al nurse practitioner acting as scribe for signing physician. Objective - Vital Signs Vital signs: Vital Signs Temp 98 F 04/20/21 08:39 Pulse 112 H 04/20/21 08:40 Resp 16 04/20/21 08:40 BP 152/82 04/20/21 08:39 Pulse Ox 96 04/20/21 08:39 Intake & Output 04/19/21 04/20/21 04/20/21 18:59 06:59 18:59 Intake Total 980 360 240 Output Total 300 Balance 680 360 240 Weight 65 kg Intake: IV 500 Oral 480 360 240 Output: Urine 300 Other: Voiding Method Diaper Bedside Commode Bedside Commode Diaper Diaper # Voids 2 1 1 - Labs CBC & Chem 7: 04/19/21 08:10 04/19/21 17:45 Labs: Abnormal Lab Results - Last 24 Hours (Table) 04/19/21 04/19/21 04/19/21 Range/Units 08:10 12:08 17:05 POC Glucose (mg/dL) 129 H 247 H (75-99) mg/dL Magnesium 1.5 L (1.6-2.3) mg/dL Iron 20 L (50-170) ug/dL 04/19/21 04/20/21 Range/Units 20:45 05:35 POC Glucose (mg/dL) 291 H 154 H (75-99) mg/dL Magnesium (1.6-2.3) mg/dL Iron (50-170) ug/dL Microbiology - Last 24 Hours (Table) 04/17/21 20:16 Urine Culture - Preliminary Urine,Voided Group D Enterococcus 04/15/21 14:17 Blood Culture - Preliminary Blood No Growth after 96 hours 04/15/21 14:17 Blood Culture - Preliminary Blood No Growth after 96 hours
[2021-04-20 09:48] LABS: Anisocytosis Slight; HCT 32.3 % (34.0-46.0); HGB 10.7 gm/dL (11.4-16.0); Hypochromasia Moderate; MCH 28.5 pg (25.0-35.0); MCV 86.4 fL (80.0-100.0); Platelet Count 350 k/uL (150-450); Poikilocytosis Slight; RBC 3.74 m/uL (3.80-5.40); RDW 16.5 % (11.5-15.5); WBC 5.1 k/uL (3.8-10.6)
[2021-04-20] MEDS: IOPAMIDOL CONTRAST (ORAL USE) VIAL PO PRN ×2 (09:57→11:01)
[2021-04-20 10:05] LABS: African American GFR (CKD) >90 (>60 ml/min/1.73 sqM); Anion Gap 7 mmol/L; Blood Urea Nitrogen 3 mg/dL (7-17); Calcium 8.9 mg/dL (8.4-10.2); Carbon Dioxide 25 mmol/L (22-30); Chloride 107 mmol/L (98-107); Glucose 235 mg/dL (74-99); Magnesium 1.9 mg/dL (1.6-2.3); Non-African American GFR(CKD) >90 (>60 ml/min/1.73 sqM); Potassium 4.4 mmol/L (3.5-5.1); Sodium 139 mmol/L (137-145)
[2021-04-20 10:31] LABS: Band Neutrophils % 18 %; Lymphocytes # (M) 0.51 k/uL (1.0-4.8); Metamyelocytes # (M) 0.41 k/uL (0); Metamyelocytes % 8 %; Monocytes # (M) 0.36 k/uL (0-1.0); Neutrophils % (M) 57 %; Nucleated Red Blood Cells 0 /100 WBC (0-0); Total Cells Counted 100
[2021-04-20 10:32] LABS: Polychromasia Present
[2021-04-20] MEDS: VANCOMYCIN 1,250 MG in SODIUM CHLORIDE 0.9% 250 ML IVPB SCH (11:01)
[2021-04-20 11:54] LABS: Glucose,Whole Blood 184 mg/dL (75-99)
--- NOTE | 2021-04-20 12:01 | CT ---
EXAMINATION TYPE: CT abdomen pelvis wo con DATE OF EXAM: 04/20/2021 COMPARISON: 02/28/2021 HISTORY: Infected kidney stone CT DLP: 633.4 mGycm Automated exposure control for dose reduction was used. TECHNIQUE: Helical acquisition of images was performed from the lung bases through the pelvis. FINDINGS: The visualized lung bases are clear. There are surgical absence of the gallbladder. There is no biliary ductal dilatation. There is no organomegaly involving the liver, pancreas, spleen or adrenal glands. There is a tiny 1 to 2 mm nonobstructing left renal calculus. There is no hydronephrosis. There is no retroperitoneal adenopathy or hemorrhage in the caliber of the abdominal aorta is normal. The cecum and ascending colon is diffusely thickened there is no evidence of proximal small bowel obs truction. There are no inflammatory changes within the mesentery. There is no free intraperitoneal ai r or fluid. There is no pelvic mass, free fluid, abscess or adenopathy. There is diverticulosis of the colon. The wall of the urinary bladder is mildly diffusely thickened. The osseous structures are intact. There is a right hip prosthesis. IMPRESSION: Moderately to markedly thickened wall of the cecum and ascending colon opacity secondary to inflammat ory process or bowel ischemia. There is no evidence of bowel obstruction or free intraperitoneal air or fluid.
[2021-04-20] MEDS: HYDROcodone/APAP 10-325MG 1 EACH TAB PO PRN (12:26)
--- NOTE | 2021-04-20 13:28 | P.PN ---
Subjective Progress Note Date: 04/20/21 HISTORY OF PRESENTING ILLNESS This is a pleasant 81-year-old female past medical history significant for hypertension, dyslipidemia, diabetes mellitus, CVA, sinus tachycardia, peripheral vascular disease and history of PE/DVT with factor V. She follows in the office with Dr. Pak. We have been asked to see in consultation for sinus tachycardia. She presented to the hospital with family secondary to increasing confusion and weakness. She was found to have a urinary tract infection. Initial EKG on admission revealed sinus tachycardia heart rate 132 with incomplete right bundle branch block. Through the night she went into SVT rates 180-200. An A- team was called and she was transferred to with a cardizem gtt ordered. She has been back in the 100-120 range since initiation. Currently SR 106. She denies chest pain, shortness of breath, dizziness or palpitations. She is complaining of a headache and left leg pain. She is currently wearing an event monitor from the office that Dr. Pak applied in the office. Chest x-ray is negative for an acute cardiopulmonary process. CT brain/c-spine negative for an acute intracranial abnormalities. Laboratory data reviewed, WBC 8.6, hgb 10.5, plt 275, sodium 136, potassium 3.3, creatinine 0.47, magnesium 1.8, troponin negative x1, NTproBNP 463. Current cardiac medications include atenolol 12.5 mg daily, Plavix 75 mg daily, atorvastatin 40 mg daily, Eliquis 5 mg twice a day and Cardizem 30 mg 3 times a day. Most recent echocardiogram obtained January 2021 reveals preserved LV systolic function with ejection fraction 55-60%, mild aortic stenosis with a mean gradient of 13 mmHg. 04/18/2021 Seen and examined laying flat in bed in no acute distress. She is currently maintaining sinus rhythm with a heart rate in the 90s. Blood pressure 99/60. She is complaining of pain in her neck worse when she turns her head from side to side. She has no chest pain, palpitations or shortness of breath. Patient is scheduled to undergo colonoscopy with Dr. Flores tomorrow. 04/19/2021 Patient remains in sinus rhythm with rate control in the 90s. She underwent colonoscopy this morning with Dr. Flores that found colon polyps including polyps in the hepatic flexure could not be totally removed because location need to be removed piecemeal. Patient denies having any chest pain or shortness of breath. 04/20/2021 Patient has remained in a sinus rhythm mostly in the 70s overnight with PVCs but this morning running in the low teens. No atrial fibrillation. Patient is scheduled for CAT scan of the abdomen today PHYSICAL EXAMINATION Blood pressure 153/85 heart rate 97 afebrile and maintaining oxygen saturation on nasal cannula. CONSTITUTIONAL: No apparent distress. HEENT: Head is normocephalic. Pupils are equal, round. Sclerae anicteric. Mucous membranes of the mouth are moist. No JVD. No carotid bruit. CHEST EXAMINATION: Lungs are clear to auscultation. No chest wall tenderness is noted on palpation or with deep breathing. HEART EXAMINATION: Regular rate and rhythm. S1, S2 heard. Systolic ejection murmur at the base, no gallops or rub. EXTREMITIES: 2+ peripheral pulses, no lower extremity edema and no calf tenderness. ASSESSMENT Sinus tachycardia Paroxysmal atrial fibrillation on eliquis already for history of DVT/PE Urinary tract infection Hypokalemia Diabetes mellitus Hypertension Dyslipidemia PLAN Continue oral amiodarone 400 mg twice a day and atenolol 12.5 mg daily. Ongoing telemetry monitoring. Further recommendations to follow based upon clinical course. Nurse Practitioner note has been reviewed, I agree with a documented findings and plan of care. Patient was seen and examined. Objective - Vital Signs Vital signs: Vital Signs Temp 98 F 04/20/21 08:39 Pulse 97 04/20/21 11:03 Resp 16 04/20/21 11:03 BP 153/85 04/20/21 11:03 Pulse Ox 98 04/20/21 11:03 Intake & Output 04/19/21 04/20/21 04/20/21 18:59 06:59 18:59 Intake Total 980 360 240 Output Total 300 1 Balance 680 360 239 Weight 65 kg Intake: IV 500 Oral 480 360 240 Output: Urine 300 1 Other: Voiding Method Diaper Bedside Commode Bedside Commode Diaper Diaper # Voids 2 1 1 - Labs CBC & Chem 7: 04/20/21 08:48 04/20/21 08:48 Labs: Abnormal Lab Results - Last 24 Hours (Table) 04/19/21 04/19/21 04/19/21 Range/Units 08:10 12:08 17:05 RBC (3.80-5.40) m/uL Hgb (11.4-16.0) gm/dL Hct (34.0-46.0) % RDW (11.5-15.5) % Lymphocytes # (Manual) (1.0-4.8) k/uL Metamyelocytes # (Man) (0) k/uL BUN (7-17) mg/dL Creatinine (0.52-1.04) mg/dL Glucose (74-99) mg/dL POC Glucose (mg/dL) 129 H 247 H (75-99) mg/dL Iron 20 L (50-170) ug/dL 04/19/21 04/20/21 04/20/21 Range/Units 20:45 05:35 08:48 RBC 3.74 L (3.80-5.40) m/uL Hgb 10.7 L (11.4-16.0) gm/dL Hct 32.3 L (34.0-46.0) % RDW 16.5 H (11.5-15.5) % Lymphocytes # (Manual) 0.51 L (1.0-4.8) k/uL Metamyelocytes # (Man) 0.41 H (0) k/uL BUN (7-17) mg/dL Creatinine (0.52-1.04) mg/dL Glucose (74-99) mg/dL POC Glucose (mg/dL) 291 H 154 H (75-99) mg/dL Iron (50-170) ug/dL 04/20/21 Range/Units 08:48 RBC (3.80-5.40) m/uL Hgb (11.4-16.0) gm/dL Hct (34.0-46.0) % RDW (11.5-15.5) % Lymphocytes # (Manual) (1.0-4.8) k/uL Metamyelocytes # (Man) (0) k/uL BUN 3 L (7-17) mg/dL Creatinine 0.38 L (0.52-1.04) mg/dL Glucose 235 H (74-99) mg/dL POC Glucose (mg/dL) (75-99) mg/dL Iron (50-170) ug/dL Microbiology - Last 24 Hours (Table) 04/17/21 20:16 Urine Culture - Preliminary Urine,Voided Group D Enterococcus 04/15/21 14:17 Blood Culture - Preliminary Blood No Growth after 96 hours 04/15/21 14:17 Blood Culture - Preliminary Blood No Growth after 96 hours
[2021-04-20] MEDS: KETOROLAC 15 MG/ML 1 ML VIAL IVP SCH ×3 (14:35→23:22)
[2021-04-20] MEDS: SODIUM CHLORIDE 0.9% 1,000 ML IV SCH ×2 (16:36→18:55)
[2021-04-20 16:43] LABS: Glucose,Whole Blood 207 mg/dL (75-99)
--- NOTE | 2021-04-20 19:48 | PN ---
PROGRESS NOTE DATE OF SERVICE: 04/20/2021 REASON FOR FOLLOWUP: Urinary tract infection. INTERVAL HISTORY: The patient is afebrile. The patient is breathing comfortably. The patient denies having any chest pain, shortness of breath or cough. abdominal discomfort. No vomiting or diarrhea. PHYSICAL EXAMINATION: Blood pressure 139/96, pulse of 109, temperature of 98. She is 98% on room air. GENERAL DESCRIPTION: General description is an elderly female lying in bed in no distress. RESPIRATORY SYSTEM: Unlabored breathing. Clear to auscultation anteriorly. HEART: S1, S2. Regular rate and rhythm. ABDOMEN: Soft. No tenderness. LABS: Hemoglobin is 10.3, white count of 5.1. BUN of 20, creatinine 0.38. Urine with group D Enterococcus. DIAGNOSTIC IMPRESSION AND PLAN: Patient with recurrent urinary tract infection in this patient who did have a colonoscopy with no evidence of any colovesical fistula. The patient is currently covered with vancomycin, waiting for sensitivity on Enterococcus to determine her discharge antibiotics. Continue with supportive care. MMODL / IJN: [id number] /
[2021-04-20 20:51] LABS: Glucose,Whole Blood 208 mg/dL (75-99)
[2021-04-20] MEDS: ESTRADIOL 0.1 MG/GM VAGINAL CREAM 42.5 GM TUBE VAGINAL SCH (20:54)
[2021-04-20] MEDS: DULoxetine HCL 30 MG CAPSULE.DR PO SCH (20:54)
[2021-04-20] MEDS: DULoxetine HCL 60 MG CAPSULE.DR PO SCH (20:54)
[2021-04-20] MEDS: ATORVASTATIN 40 MG TAB PO SCH (20:54)
[2021-04-20] MEDS: CLOPIDOGREL 75 MG TAB PO SCH (20:54)
[2021-04-20] MEDS: CYCLOBENZAPRINE 10 MG TAB PO SCH (20:54)
[2021-04-20] MEDS: LEVOTHYROXINE 25 MCG TAB PO SCH (20:55)
[2021-04-20] MEDS: TEMAZEPAM 15 MG CAP PO SCH (20:55)
[2021-04-20] MEDS: rOPINIRole HCL 4 MG TABLET PO SCH (21:06)
[2021-04-21] MEDS: VANCOMYCIN 1,250 MG in SODIUM CHLORIDE 0.9% 250 ML IVPB SCH ×2 (03:15→18:00)
[2021-04-21] MEDS: MIDODRINE 5 MG TAB PO SCH ×3 (06:01→17:17)
[2021-04-21 06:18] LABS: Glucose,Whole Blood 160 mg/dL (75-99)
[2021-04-21] MEDS: KETOROLAC 15 MG/ML 1 ML VIAL IVP SCH ×4 (06:35→23:01)
[2021-04-21] MEDS: GABAPENTIN 300 MG CAP PO SCH ×3 (06:35→21:13)
[2021-04-21] MEDS: INSULIN ASPART (NovoLOG) 100 UNIT/ML VIAL SQ SCH ×4 (06:36→21:11)
[2021-04-21] MEDS: APIXABAN 5 MG TAB PO SCH ×2 (07:56→21:10)
[2021-04-21] MEDS: allopurinoL 100 MG TAB PO SCH (07:56)
[2021-04-21] MEDS: AMIODARONE 200 MG TAB PO SCH ×2 (07:56→21:10)
[2021-04-21] MEDS: LINAGLIPTIN 5 MG TABLET PO SCH (07:56)
[2021-04-21] MEDS: CALCIUM CARB-VIT D 500 MG-5 MCG TAB PO SCH (07:56)
[2021-04-21] MEDS: TRIHEXYPHENIDYL 2 MG TAB PO SCH ×2 (07:57→21:13)
[2021-04-21] MEDS: FLUDROCORTISONE 0.1 MG TAB PO SCH (07:57)
[2021-04-21] MEDS: IPRATROPIUM BROMIDE 0.06% NASAL SPRAY (15 ML) EA NOSTRIL SCH ×2 (07:59→21:11)
[2021-04-21] MEDS: METFORMIN HCL PO SCH (08:00)
[2021-04-21] MEDS: EMPAGLIFLOZIN PO SCH (08:00)
[2021-04-21 09:15] LABS: Anisocytosis Slight; HCT 33.8 % (34.0-46.0); HGB 11.2 gm/dL (11.4-16.0); Hypochromasia Moderate; MCH 29.3 pg (25.0-35.0); MCHC 33.1 g/dL (31.0-37.0); MCV 88.6 fL (80.0-100.0); Platelet Count 357 k/uL (150-450); Poikilocytosis Slight; RBC 3.82 m/uL (3.80-5.40); RDW 18.1 % (11.5-15.5); WBC 4.8 k/uL (3.8-10.6)
[2021-04-21 09:22] LABS: African American GFR (CKD) >90 (>60 ml/min/1.73 sqM); Anion Gap 8 mmol/L; Blood Urea Nitrogen 6 mg/dL (7-17); Calcium 9.5 mg/dL (8.4-10.2); Carbon Dioxide 25 mmol/L (22-30); Chloride 106 mmol/L (98-107); Glucose 136 mg/dL (74-99); Non-African American GFR(CKD) >90 (>60 ml/min/1.73 sqM); Potassium 3.8 mmol/L (3.5-5.1); Sodium 139 mmol/L (137-145)
[2021-04-21] MEDS ORDERED: METOPROLOL TARTRATE 12.5 MG TAB PO STA (10:33)
[2021-04-21 11:21] LABS: Band Neutrophils % 2 %; Basophils # (M) 0.05 k/uL (0-0.2); Eosinophils # (M) 0.14 k/uL (0-0.7); Lymphocytes # (M) 0.91 k/uL (1.0-4.8); Metamyelocytes % 2 %; Monocytes # (M) 0.82 k/uL (0-1.0); Myelocytes # (M) 0.14 k/uL (0); Myelocytes % 3 %; Neutrophils % (M) 56 %; Nucleated Red Blood Cells 0 /100 WBC (0-0); Total Cells Counted 200
--- NOTE | 2021-04-21 11:54 | P.PN ---
Subjective HISTORY OF PRESENTING ILLNESS This is a pleasant 81-year-old female past medical history significant for hypertension, dyslipidemia, diabetes mellitus, CVA, sinus tachycardia, peripheral vascular disease and history of PE/DVT with factor V. She follows in the office with Dr. Pak. We have been asked to see in consultation for sinus tachycardia. She presented to the hospital with family secondary to increasing confusion and weakness. She was found to have a urinary tract infection. Initial EKG on admission revealed sinus tachycardia heart rate 132 with incomplete right bundle branch block. Through the night she went into SVT rates 180-200. An A- team was called and she was transferred to with a cardizem gtt ordered. She has been back in the 100-120 range since initiation. Currently SR 106. She denies chest pain, shortness of breath, dizziness or palpitations. She is complaining of a headache and left leg pain. She is currently wearing an event monitor from the office that Dr. Pak applied in the office. Chest x-ray is negative for an acute cardiopulmonary process. CT brain/c-spine negative for an acute intracranial abnormalities. Laboratory data reviewed, WBC 8.6, hgb 10.5, plt 275, sodium 136, potassium 3.3, creatinine 0.47, magnesium 1.8, troponin negative x1, NTproBNP 463. Current cardiac medications include atenolol 12.5 mg daily, Plavix 75 mg daily, atorvastatin 40 mg daily, Eliquis 5 mg twice a day and Cardizem 30 mg 3 times a day. Most recent echocardiogram obtained January 2021 reveals preserved LV systolic function with ejection fraction 55-60%, mild aortic stenosis with a mean gradient of 13 mmHg. 04/21/2021 Patient seen and examined sitting up in bed in no acute distress. Telemetry tracings reveal sinus tachycardia heart rate in 120s. Blood pressure 140/86. Laboratory data reviewed, WBC 4.8, hemoglobin 11.2, platelets 357, sodium 139, potassium 3.8, creatinine 0.36. PHYSICAL EXAMINATION Blood pressure 110/64 heart rate 106 afebrile and maintaining oxygen saturation on nasal cannula. CONSTITUTIONAL: No apparent distress. HEENT: Head is normocephalic. Pupils are equal, round. Sclerae anicteric. Mucous membranes of the mouth are moist. No JVD. No carotid bruit. CHEST EXAMINATION: Lungs are clear to auscultation. No chest wall tenderness is noted on palpation or with deep breathing. HEART EXAMINATION: Regular rate and rhythm. S1, S2 heard. Systolic ejection murmur at the base, no gallops or rub. EXTREMITIES: 2+ peripheral pulses, no lower extremity edema and no calf tendern ess. ASSESSMENT Sinus tachycardia Paroxysmal atrial fibrillation on eliquis already for history of DVT/PE Urinary tract infection Hypokalemia Diabetes mellitus Hypertension Dyslipidemia PLAN Change beta yaya to lopressor 25 mg BID. Decrease amiodaroine to 200 mg daily for 2 weeks; then 200 mg daily thereafter. Decrease florinef to 0.05 mg daily. Ongoing telemetry monitoring. Further recommendations to follow based upon clinical course. Nurse Practitioner note has been reviewed, I agree with a documented findings and plan of care. Patient was seen and examined. Objective - Vital Signs Vital signs: Vital Signs Temp 98.1 F 04/21/21 08:00 Pulse 109 H 04/21/21 08:00 Resp 18 04/21/21 08:00 BP 146/86 04/21/21 08:00 Pulse Ox 99 04/21/21 08:00 Intake & Output 04/20/21 04/21/21 04/21/21 18:59 06:59 18:59 Intake Total 2570 360 Output Total 1 800 Balance 2569 -800 360 Weight 65.3 kg Intake: Intake, IV Titration 650 Amount Sodium Chloride 0.9% 1, 400 000 ml @ 50 mls/hr IV . Q20H [facility] Rx#:[id number] Vancomycin 1,250 mg In 250 Sodium Chloride 0.9% 250 ml @ 125 mls/hr IVPB ONCE ONE Rx#:[id number] Oral 1920 360 Output: Urine 1 800 Other: Voiding Method Bedside Commode Bedside Commode Bedside Commode Diaper Diaper Diaper # Voids 1 1 # Bowel Movements 1 1 - Labs CBC & Chem 7: 04/21/21 08:04 04/21/21 08:04 Labs: Abnormal Lab Results - Last 24 Hours (Table) 04/20/21 04/20/21 04/20/21 Range/Units 11:52 16:42 20:35 Hgb (11.4-16.0) gm/dL Hct (34.0-46.0) % RDW (11.5-15.5) % Lymphocytes # (Manual) (1.0-4.8) k/uL Metamyelocytes # (Man) (0) k/uL Myelocytes # (Manual) (0) k/uL BUN (7-17) mg/dL Creatinine (0.52-1.04) mg/dL Glucose (74-99) mg/dL POC Glucose (mg/dL) 184 H 207 H 208 H (75-99) mg/dL 04/21/21 04/21/21 04/21/21 Range/Units 05:53 08:04 08:04 Hgb 11.2 L (11.4-16.0) gm/dL Hct 33.8 L (34.0-46.0) % RDW 18.1 H (11.5-15.5) % Lymphocytes # (Manual) 0.91 L (1.0-4.8) k/uL Metamyelocytes # (Man) 0.10 H (0) k/uL Myelocytes # (Manual) 0.14 H (0) k/uL BUN 6 L (7-17) mg/dL Creatinine 0.36 L (0.52-1.04) mg/dL Glucose 136 H (74-99) mg/dL POC Glucose (mg/dL) 160 H (75-99) mg/dL Microbiology - Last 24 Hours (Table) 04/15/21 14:17 Blood Culture - Preliminary Blood No Growth after 120 hours 04/15/21 14:17 Blood Culture - Preliminary Blood No Growth after 120 hours
[2021-04-21] MEDS: metroNIDAZOLE-NS PMX 500 MG in SALINE 1 100ML.BAG IVPB SCH ×2 (11:55→21:07)
[2021-04-21 12:25] LABS: Glucose,Whole Blood 297 mg/dL (75-99)
--- NOTE | 2021-04-21 12:55 | P.PN ---
Subjective Progress Note Date: 04/21/21 81-year-old female with multiple medical problem who was one of Dr. Rocha patient is known to have factor V Leiden Yoshi deficiency, type 2 diabetes, non- Hodgkin's lymphoma, severe compression and bulging disc involving 3 lumbar spine vertebrae which patient has been seen Dr. Zapatas and had surgical intervention in the past. Patient had severe abnormal mobility balance and gait ended up in the [facility] living [facility]hab for a few weeks every time she is hospitalized. Patient was hospitalized at [facility] 03/29/2021 because of hypoxia and aspiration pneumonia was the hospital to the 15 she become very debilitated not been able template and walk and decided the best option course to have patient go to [facility] on the [facility]. Patient has been there for the last few days she developed to have worsening symptoms with fever, chills, altered mental status with worsening lower abdominal pain and discomfort patient was not acting herself noticed by [facility] staff will call Dr. Avelar and have patient transferred to [facility] department at [facility] with temperature of 101 at the time slightly elevated white blood cell. 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 Patient was post to see general surgery and plan to do surgical correction at some point. After presentation to [facility] patient was not acting herself initially more confused mildly hypotensive remain anemic no major abnormality with electrolyte imbalance. UA can was very positive at this time patient be started on Zosyn. The IV. 04/16: Patient had heart rate up to 197 then 124, Cardizem drip was started and subsequently discontinued. nuclear monitoring technician was sinus tachycardia. She is now running at 102, blood pressure 103/64, pulse ox 95% on 3 L nasal cannula. Patient has been afebrile. Blood sugars are running between 134 and 166. Urine culture is in progress. Patient has been seen by cardiology and recommended oral Cardizem and atenolol. Patient has been seen by Dr. Lee with re commendations to continue meropenem. Dr. Flores is also in place. 04/17: Dr. Flores contacted by Dr. Farooq via phone call regarding consult and she will be in to see the patient. Patient has had A. fib with RVR and Cardizem drip was started. She apparently went up to 140 bpm and Cardizem was up to 15 mg per hour. This appears to have been stopped and there is an order for amiodarone from cardiology. She is afebrile, heart rate 114, blood pressure 136/69, pulse ox 99% on 3 L nasal cannula. Patient is eating 25-75% of her meals. 04/18: Dr. Flores has evaluated the patient with plan for colonoscopy on Wednesday. Patient's heart rate is now running between 87 and 107 sinus rhythm. She is off Cardizem drip and amiodarone drip, transitioned to oral amiodarone 400 mg twice daily continued on atenolol 12.[address] Lee is ordered for a new urinalysis which was cloudy, leukoesterase large, WBC is greater than 182, WBC clumps few and repeat urine culture is in progress. Patient is continued on IV meropenem. Patient states abdominal pain is running 23/10. Blood sugars are running between 167 and 236. Anticipate discharge back to [facility] on Thursday 04/19: Patient is scheduled for a colonoscopy with Dr. Flores today. Patient is complaining of jaw and bilateral ear pain. Upon examination it appears that it may be related to TMJ, patient has no rash or signs of Benz's Familia. She is also complaining of jumping sensation to lower extremities. Her potassium this morning was 2.7. We will replace with a total of 160 mEq of oral potassium. Patient remained afebrile, heart rate 116, respirations 18, blood pressure 142/90, pulse ox 95% on room air. Patient states that abdominal pain is improving. Anticipated discharge back to [facility] on Wednesday. 04/20: Patient is found resting comfortably in bed complaining of bilateral jaw pain and lower extremity discomfort including restless leg. Patient had her potassium and magnesium replaced yesterday. Repeat potassium 3.6, repeat mag 1.5. Antibiotics changed to Vanco per the culture results. Patient currently is tachycardic and on Cordarone. Suggested to stop the atenolol due to ulcerations of bilateral hands and perhaps start dig. Awaiting cardiology. Will increase Flexeril to 5 mg at night and Toradol 10 mg every 6 hours scheduled. 04/21: Patient is doing okay, however she has increasing intention tremors, no more leg cramps or picograms, potassium was replaced, patient however has right-sided lower quadrant tenderness, had 3 bowel movements since midnight, all watery, stool for C. diff was requested, patient remains on vancomycin for enterococcus UTI, was requesting stool culture and sensitivity, and started on IV Flagyl this time, patient has infectious diseases on board, we will discuss with him. Also CAT scan shows thickening of th cecum and ascending colon, without any evidence of obstruction or perforation, inflammatory process or bowel diverticulitis suspected. We discussed discontinuing Florinef at this time, and start on Flagyl, IV, increase Artane to 1 mg twice a day. REVIEW OF SYSTEMS Constitutional: No fever, no chills, no night sweats. No weight change. Positive generalized fatigue tiredness lethargy and slight sleepy. EENT: No headache. No blurred vision or double vision, no loss of vision. No nasal drainage or congestion. No epistaxis. No sore throat. Reports bilateral ear and jaw pain Lungs: Slight shortness of breath mild cough no sputum production Cardiovascular: No chest pain or angina continue to have mild arrhythmia on and off mild PND and shortness of breath with exertion. Abdominal: mild abdominal pain. No nausea, vomiting. No diarrhea. No constipation. No bloody or tarry stools.. Mild loss of appetite. 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 Musculoskeletal: No myalgias. No muscle weakness, no gait dysfunction, no frequent falls. No back pain. No neck pain. Integumentary: No wounds, no lesions. No rash or pruritus. No unusual bruis ing. No change in hair or nails. Neurologic: No aphasia. No facial droop. mild change in mentation. No head injury. No headache. No paralysis. No paresthesia. Psychiatric: No depression. No anxiety. No mood swings. Endocrine: No abnormal blood sugars. No weight change. No excessive sweating or thirst. No cold intolerance. Objective - Vital Signs Vital signs: Vital Signs Temp 98.1 F 04/21/21 08:00 Pulse 109 H 04/21/21 08:00 Resp 18 04/21/21 08:00 BP 146/86 04/21/21 08:00 Pulse Ox 99 04/21/21 08:00 Intake & Output 04/20/21 04/21/21 04/21/21 18:59 06:59 18:59 Intake Total 2570 360 Output Total 1 800 Balance 2569 -800 360 Weight 65.3 kg Intake: Intake, IV Titration 650 Amount Sodium Chloride 0.9% 1, 400 000 ml @ 50 mls/hr IV . Q20H [facility] Rx#:[id number] Vancomycin 1,250 mg In 250 Sodium Chloride 0.9% 250 ml @ 125 mls/hr IVPB ONCE ONE Rx#:[id number] Oral 1920 360 Output: Urine 1 800 Other: Voiding Method Bedside Commode Bedside Commode Bedside Commode Diaper Diaper Diaper # Voids 1 1 # Bowel Movements 1 1 - Constitutional General appearance: Present: cooperative, no acute distress - EENT Eyes: Present: EOMI, PERRLA, dentition normal, normal appearance ENT: Present: normal oropharynx - Neck Neck: Present: normal ROM - Respiratory Respiratory: bilateral: CTA, negative: diminished, dullness - Cardiovascular Rhythm: regular Heart sounds: normal: S1, S2 - Gastrointestinal General gastrointestinal: Present: normal bowel sounds, soft, tenderness (Right lower quadrant) - Integumentary Integumentary: Present: decreased turgor, normal - Neurologic Neurologic: Present: CNII-XII intact - Labs CBC & Chem 7: 04/21/21 08:04 04/21/21 08:04 Labs: Abnormal Lab Results - Last 24 Hours (Table) 04/20/21 04/20/21 04/20/21 Range/Units 11:52 16:42 20:35 Hgb (11.4-16.0) gm/dL Hct (34.0-46.0) % RDW (11.5-15.5) % Lymphocytes # (Manual) (1.0-4.8) k/uL Metamyelocytes # (Man) (0) k/uL Myelocytes # (Manual) (0) k/uL BUN (7-17) mg/dL Creatinine (0.52-1.04) mg/dL Glucose (74-99) mg/dL POC Glucose (mg/dL) 184 H 207 H 208 H (75-99) mg/dL 04/21/21 04/21/21 04/21/21 Range/Units 05:53 08:04 08:04 Hgb 11.2 L (11.4-16.0) gm/dL Hct 33.8 L (34.0-46.0) % RDW 18.1 H (11.5-15.5) % Lymphocytes # (Manual) 0.91 L (1.0-4.8) k/uL Metamyelocytes # (Man) 0.10 H (0) k/uL Myelocytes # (Manual) 0.14 H (0) k/uL BUN 6 L (7-17) mg/dL Creatinine 0.36 L (0.52-1.04) mg/dL Glucose 136 H (74-99) mg/dL POC Glucose (mg/dL) 160 H (75-99) mg/dL Microbiology - Last 24 Hours (Table) 04/15/21 14:17 Blood Culture - Preliminary Blood No Growth after 120 hours 04/15/21 14:17 Blood Culture - Preliminary Blood No Growth after 120 hours Assessment and Plan Plan: 1. Metabolic encephalopathy: Most likely from UTI with worsening symptoms lately, blood and urine culture be done, consult with Dr. Lee appreciated, continue meropenem discontinued and vancomycin started her infectious disease. 2 recurrent urinary tract infection: Patient is having multiple episodes closer to each other continue to watch symptoms closely and treat patient is that more aggressively every time. Colonoscopy does not show a fistula between the bladder and bowel. 3. Diarrhea, new, with right lower quadrant tenderness, inflammation against ischemic bowel noted in CAT scan with thickening, in the cecum and ascending colon, patient or the had a colonoscopy done, were starting on IV Flagyl, await infectious disease recommendation, on IV vancomycin. Stool cultures are sent for C. diff 3 chronic pain syndrome: Has been on gabapentin and hydrocodone. 4 hypothyroidism: Continue patient on levothyroxin 12.5 g daily. 5. Hypokalemia. Replace potassium for a total of 160 mEq, repeat potassium later today and tomorrow. 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 7 type 2 diabetes: Continue on Tradjenta and Humalog per sliding scales coverage and still on Synjardy/Metformin mg daily. 8 severe neuropathy: Remain on gabapentin. 9 chronic back pain post surgery and pain management continue on hydrocodone and muscle relaxer. 10 severe PAD with arterial thrombosis post subclavian surgery patient was kept on Eliquis and Plavix. 11 chronic depression: Has been on Cymbalta 30 mg a day. 12 A. fib with RVR, paroxysmal atrial fibrillation. Continue atenolol continue Eliquis as well. Continue amiodarone 400 mg twice daily oral, consult appreciated. 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 Dr. Flores is scheduled patient for colonoscopy on Wednesday - no connection was found. 14. Bilateral ear and jaw pain. Increase Flexeril 10 mg daily at bedtime. Toradol 10 mg every 6 hours. 15. Hypomagnesium. Continue to replace magnesium and repeat levels 16 GI prophylaxis: Remain on omeprazole 20 mg a day. 17 DVT prophylaxis: Continue Eliquis. 18. COVID-19 testing was negative. DISCHARGE PLAN Return to [facility] on Wednesday
[2021-04-21 16:58] LABS: Glucose,Whole Blood 161 mg/dL (75-99)
[2021-04-21 20:32] LABS: Glucose,Whole Blood 236 mg/dL (75-99)
[2021-04-21] MEDS: CYCLOBENZAPRINE 10 MG TAB PO SCH (21:11)
[2021-04-21] MEDS: DULoxetine HCL 30 MG CAPSULE.DR PO SCH (21:11)
[2021-04-21] MEDS: CLOPIDOGREL 75 MG TAB PO SCH (21:11)
[2021-04-21] MEDS: DULoxetine HCL 60 MG CAPSULE.DR PO SCH (21:11)
[2021-04-21] MEDS: ATORVASTATIN 40 MG TAB PO SCH (21:11)
[2021-04-21] MEDS: METOPROLOL TARTRATE 25 MG TAB PO SCH (21:12)
[2021-04-21] MEDS: LEVOTHYROXINE 25 MCG TAB PO SCH (21:12)
[2021-04-21] MEDS: TEMAZEPAM 15 MG CAP PO SCH (21:12)
[2021-04-21] MEDS: rOPINIRole HCL 4 MG TABLET PO SCH (21:12)
[2021-04-21] MEDS: HYDROcodone/APAP 10-325MG 1 EACH TAB PO PRN (21:15)
--- NOTE | 2021-04-21 21:25 | PN ---
PROGRESS NOTE DATE OF SERVICE: 04/21/2021 REASON FOR FOLLOWUP: Urinary tract infection. INTERVAL HISTORY: The patient is afebrile. The patient is breathing comfortably. No chest pain, shortness of breath. No cough. No abdominal pain or diarrhea. PHYSICAL EXAMINATION: Blood pressure is 140/80 with a pulse of 109, temperature 97.8. She is 100% on 2 L nasal cannula. General description is an elderly female lying in bed in no distress. Respiratory system: Unlabored breathing, clear to auscultation anteriorly. Heart S1, S2. Regular rate and rhythm. Abdomen soft, no tenderness. LABS: Hemoglobin 11.4, white count 4.8, BUN of 7, creatinine 0.36. Urine showing Enterococcus species sensitive to vancomycin. The patient is . DIAGNOSTIC IMPRESSION AND PLAN: Patient with recurrent urinary tract infection and MULTIPLE ANTIBIOTIC ALLERGIES . Patient covered with vancomycin, to continue. Patient did have an abnormal CT with ischemia. The patient has been started on Flagyl. We will add Azactam to cover the gram-negative. Prognosis remains to be guarded. MMODL / IJN: [id number] /
[2021-04-21] MEDS: AZTREONAM 2 GM in SODIUM CHLORIDE 0.9% 100 ML IVPB SCH (23:00)
[2021-04-22] MEDS: metroNIDAZOLE-NS PMX 500 MG in SALINE 1 100ML.BAG IVPB SCH ×3 (03:53→21:25)
[2021-04-22 06:18] LABS: Glucose,Whole Blood 146 mg/dL (75-99)
[2021-04-22] MEDS: KETOROLAC 15 MG/ML 1 ML VIAL IVP SCH ×4 (06:30→23:44)
[2021-04-22] MEDS: GABAPENTIN 300 MG CAP PO SCH ×3 (06:30→22:01)
[2021-04-22] MEDS: INSULIN ASPART (NovoLOG) 100 UNIT/ML VIAL SQ SCH ×4 (06:31→21:08)
[2021-04-22] MEDS: MIDODRINE 5 MG TAB PO SCH ×3 (06:32→15:10)
[2021-04-22] MEDS: AMIODARONE 200 MG TAB PO SCH ×2 (07:32→21:06)
[2021-04-22] MEDS: LINAGLIPTIN 5 MG TABLET PO SCH (07:32)
[2021-04-22] MEDS: APIXABAN 5 MG TAB PO SCH (07:32)
[2021-04-22] MEDS: CALCIUM CARB-VIT D 500 MG-5 MCG TAB PO SCH (07:32)
[2021-04-22] MEDS: METOPROLOL TARTRATE 25 MG TAB PO SCH ×2 (07:32→21:11)
[2021-04-22] MEDS: allopurinoL 100 MG TAB PO SCH (07:32)
[2021-04-22] MEDS: IPRATROPIUM BROMIDE 0.06% NASAL SPRAY (15 ML) EA NOSTRIL SCH ×2 (07:32→21:09)
[2021-04-22] MEDS: EMPAGLIFLOZIN PO SCH (07:33)
[2021-04-22] MEDS: AZTREONAM 2 GM in SODIUM CHLORIDE 0.9% 100 ML IVPB SCH ×3 (07:33→23:43)
[2021-04-22] MEDS: METFORMIN HCL PO SCH (07:33)
[2021-04-22] MEDS: TRIHEXYPHENIDYL 2 MG TAB PO SCH ×2 (07:39→22:01)
[2021-04-22] MEDS: SODIUM CHLORIDE 0.9% 1,000 ML IV SCH (07:40)
[2021-04-22] MEDS ORDERED: FLUDROCORTISONE 0.1 MG TAB PO SCH (09:00)
--- NOTE | 2021-04-22 09:58 | P.PN ---
Subjective HISTORY OF PRESENTING ILLNESS This is a pleasant 81-year-old female past medical history significant for hypertension, dyslipidemia, diabetes mellitus, CVA, sinus tachycardia, peripheral vascular disease and history of PE/DVT with factor V. She follows in the office with Dr. Pak. We have been asked to see in consultation for sinus tachycardia. She presented to the hospital with family secondary to increasing confusion and weakness. She was found to have a urinary tract infection. Initial EKG on admission revealed sinus tachycardia heart rate 132 with incomplete right bundle branch block. Through the night she went into SVT rates 180-200. An A- team was called and she was transferred to with a cardizem gtt ordered. She has been back in the 100-120 range since initiation. Currently SR 106. She denies chest pain, shortness of breath, dizziness or palpitations. She is complaining of a headache and left leg pain. She is currently wearing an event monitor from the office that Dr. Pak applied in the office. Chest x-ray is negative for an acute cardiopulmonary process. CT brain/c-spine negative for an acute intracranial abnormalities. Laboratory data reviewed, WBC 8.6, hgb 10.5, plt 275, sodium 136, potassium 3.3, creatinine 0.47, magnesium 1.8, troponin negative x1, NTproBNP 463. Current cardiac medications include atenolol 12.5 mg daily, Plavix 75 mg daily, atorvastatin 40 mg daily, Eliquis 5 mg twice a day and Cardizem 30 mg 3 times a day. Most recent echocardiogram obtained January 2021 reveals preserved LV systolic function with ejection fraction 55-60%, mild aortic stenosis with a mean gradient of 13 mmHg. 04/22/2021 Patient seen and examined sitting up in no acute distress. Telemetry tracings reveal sinus rhythm with heart rate in the 90s. Blood pressure 120/73. She denies symptoms of chest pain, shortness of breath, dizziness or palpitations. Currently maintained on amiodarone 200 mg twice a day, Eliquis 5 mg twice a day, atorvastatin 40 mg twice a day, Plavix 75 mg daily, Lopressor 25 mg twice a day and midodrine 10 mg 3 times a day. Florinef was discontinued per primary care team. PHYSICAL EXAMINATION Blood pressure 110/64 heart rate 106 afebrile and maintaining oxygen saturation on nasal cannula. CONSTITUTIONAL: No apparent distress. HEENT: Head is normocephalic. Pupils are equal, round. Sclerae anicteric. Mucous membranes of the mouth are moist. No JVD. No carotid bruit. CHEST EXAMINATION: Lungs are clear to auscultation. No chest wall tenderness is noted on palpation or with deep breathing. HEART EXAMINATION: Regular rate and rhythm. S1, S2 heard. Systolic ejection mu rmur at the base, no gallops or rub. EXTREMITIES: 2+ peripheral pulses, no lower extremity edema and no calf tenderness. ASSESSMENT Sinus tachycardia Paroxysmal atrial fibrillation on eliquis already for history of DVT/PE Urinary tract infection Hypokalemia Diabetes mellitus Hypertension Dyslipidemia PLAN Heart rates are well controlled on current medical regimen. We will follow along as needed, please call with further questions or concerns. Follow-up in the office with Dr. Pak upon discharge. Nurse Practitioner note has been reviewed, I agree with a documented findings and plan of care. Patient was seen and examined. Objective - Vital Signs Vital signs: Vital Signs Temp 97.6 F 04/22/21 07:41 Pulse 96 04/22/21 08:00 Resp 18 04/22/21 08:00 BP 120/73 04/22/21 07:41 Pulse Ox 100 04/22/21 07:41 Intake & Output 04/21/21 04/22/21 04/22/21 18:59 06:59 18:59 Intake Total 960 Balance 960 Weight 70 kg Intake: Oral 960 Other: Voiding Method Toilet Bedside Commode Toilet Diaper # Voids 2 2 - Labs CBC & Chem 7: 04/21/21 08:04 04/21/21 08:04 Labs: Abnormal Lab Results - Last 24 Hours (Table) 04/21/21 04/21/21 04/21/21 Range/Units 08:04 11:59 16:57 Lymphocytes # (Manual) 0.91 L (1.0-4.8) k/uL Metamyelocytes # (Man) 0.10 H (0) k/uL Myelocytes # (Manual) 0.14 H (0) k/uL POC Glucose (mg/dL) 297 H 161 H (75-99) mg/dL 04/21/21 04/22/21 Range/Units 20:30 06:17 Lymphocytes # (Manual) (1.0-4.8) k/uL Metamyelocytes # (Man) (0) k/uL Myelocytes # (Manual) (0) k/uL POC Glucose (mg/dL) 236 H 146 H (75-99) mg/dL Microbiology - Last 24 Hours (Table) 04/15/21 14:17 Blood Culture - Final Blood No Growth after 144 hours 04/15/21 14:17 Blood Culture - Final Blood No Growth after 144 hours 04/17/21 20:16 Urine Culture - Final Urine,Voided Enterococcus faecium
[2021-04-22] MEDS ORDERED: VANCOMYCIN TROUGH DUE 1 EACH MISC MISCELLANE ONE (10:00)
[2021-04-22] MEDS: VANCOMYCIN 1,250 MG in SODIUM CHLORIDE 0.9% 250 ML IVPB SCH (10:46)
[2021-04-22 11:43] LABS: Glucose,Whole Blood 142 mg/dL (75-99)
--- NOTE | 2021-04-22 11:51 | P.PN ---
Subjective Progress Note Date: 04/22/21 81-year-old female with multiple medical problem who was one of Dr. Rocha patient is known to have factor V Leiden Yoshi deficiency, type 2 diabetes, non- Hodgkin's lymphoma, severe compression and bulging disc involving 3 lumbar spine vertebrae which patient has been seen Dr. Zapatas and had surgical intervention in the past. Patient had severe abnormal mobility balance and gait [facility] a few weeks every time she is hospitalized. Patient was hospitalized at [facility] 03/29/2021 because of hypoxia and aspiration pneumonia was the hospital to the 15 she become very debilitated not been able template and walk and decided the best option course to have patient go to [facility] the [facility]. Patient has been there for the last few days she developed to have worsening symptoms with fever, chills, altered mental status with worsening lower abdominal pain and discomfort patient was not acting herself noticed by [facility] staff will call Dr. Avelar and have patient transferred to [facility] department at [facility] with temperature of 101 at the time slightly elevated white blood cell. 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 Patient was post to see general surgery and plan to do surgical correction at some point. After presentation to [facility] patient was not acting herself initially more confused mildly hypotensive remain anemic no major abnormality with electrolyte imbalance. UA can was very positive at this time patient be started on Zosyn. The IV. 04/16: Patient had heart rate up to 197 then 124, Cardizem drip was started and subsequently discontinued. desk monitor was sinus tachycardia. She is now running at 102, blood pressure 103/64, pulse ox 95% on 3 L nasal cannula. Patient has been afebrile. Blood sugars are running between 134 and 166. Urine culture is in progress. Patient has been seen by cardiology and recommended oral Cardizem and atenolol. Patient has been seen by Dr. Lee with re commendations to continue meropenem. Dr. Flores is also in place. 04/17: Dr. Flores contacted by Dr. Farooq via phone call regarding consult and she will be in to see the patient. Patient has had A. fib with RVR and Cardizem drip was started. She apparently went up to 140 bpm and Cardizem was up to 15 mg per hour. This appears to have been stopped and there is an order for amiodarone from cardiology. She is afebrile, heart rate 114, blood pressure 136/69, pulse ox 99% on 3 L nasal cannula. Patient is eating 25-75% of her meals. 04/18: Dr. Flores has evaluated the patient with plan for colonoscopy on Wednesday. Patient's heart rate is now running between 87 and 107 sinus rhythm. She is off Cardizem drip and amiodarone drip, transitioned to oral amiodarone 400 mg twice daily continued on atenolol 12.[address] Lee is ordered for a new urinalysis which was cloudy, leukoesterase large, WBC is greater than 182, WBC clumps few and repeat urine culture is in progress. Patient is continued on IV meropenem. Patient states abdominal pain is running 23/10. Blood sugars are running between 167 and 236. Anticipate discharge back to [facility] on Thursday 04/19: Patient is scheduled for a colonoscopy with Dr. Flores today. Patient is complaining of jaw and bilateral ear pain. Upon examination it appears that it may be related to TMJ, patient has no rash or signs of Benz's Familia. She is also complaining of jumping sensation to lower extremities. Her potassium this morning was 2.7. We will replace with a total of 160 mEq of oral potassium. Patient remained afebrile, heart rate 116, respirations 18, blood pressure 142/90, pulse ox 95% on room air. Patient states that abdominal pain is improving. Anticipated discharge back to [facility] on Wednesday. 04/20: Patient is found resting comfortably in bed complaining of bilateral jaw pain and lower extremity discomfort including restless leg. Patient had her potassium and magnesium replaced yesterday. Repeat potassium 3.6, repeat mag 1.5. Antibiotics changed to Vanco per the culture results. Patient currently is tachycardic and on Cordarone. Suggested to stop the atenolol due to ulcerations of bilateral hands and perhaps start dig. Awaiting cardiology. Will increase Flexeril to 5 mg at night and Toradol 10 mg every 6 hours scheduled. 04/21: Patient is doing okay, however she has increasing intention tremors, no more leg cramps or picograms, potassium was replaced, patient however has right-sided lower quadrant tenderness, had 3 bowel movements since midnight, all watery, stool for C. diff was requested, patient remains on vancomycin for enterococcus UTI, was requesting stool culture and sensitivity, and started on IV Flagyl this time, patient has infectious diseases on board, we will discuss with him. Also CAT scan shows thickening of th cecum and ascending colon, without any evidence of obstruction or perforation, inflammatory process or bowel diverticulitis suspected. We discussed discontinuing Florinef at this time, and start on Flagyl, IV, increase Artane to 1 mg twice a day. 04/22: Patient is followed by Dr. Lee with recommendations for Azactam along with Flagyl and Macrobid for 10 day duration at discharge. PICC line will be ordered today and was placed on hold. Patient denies having any chest pain, she still has some right lowered abdominal discomfort. She denies having any d iarrhea. Stool specimen has not been sent for study. Dr. Flores is following with plan for repeat colonoscopy in 3 months as an outpatient. She has been afebrile and vital signs stable. Pulse ox 99% on 2 L. Heart rate is 94, blood pressure 138/78. Blood sugars running between 142 and 236. Cardiology has signed off. Discharge plan will be to [facility] return to [facility] once PICC line can't be inserted. REVIEW OF SYSTEMS Constitutional: No fever, no chills, no night sweats. No weight change. Positive generalized fatigue tiredness lethargy and slight sleepy. EENT: No headache. No blurred vision or double vision, no loss of vision. No nasal drainage or congestion. No epistaxis. No sore throat. Reports bilateral ear and jaw pain Lungs: Slight shortness of breath mild cough no sputum production Cardiovascular: No chest pain or angina continue to have mild arrhythmia on and off mild PND and shortness of breath with exertion. Abdominal: mild right lower quadrant abdominal discomfort. No nausea, vomiting. No diarrhea. No constipation. No bloody or tarry stools. Mild loss of appetite. 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 Musculoskeletal: No myalgias. No muscle weakness, no gait dysfunction, no frequent falls. No back pain. No neck pain. Integumentary: No wounds, no lesions. No rash or pruritus. No unusual bruising. No change in hair or nails. Neurologic: No aphasia. No facial droop. mild change in mentation. No head injury. No headache. No paralysis. No paresthesia. Psychiatric: No depression. No anxiety. No mood swings. Endocrine: No abnormal blood sugars. No weight change. PHYSICAL EXAMINATION Gen: This is a 81-year-old elderly, patient is resting in bed appears to be comfortable and in no acute distress. HEENT: Head is atraumatic, normocephalic. Pupils equal, round. Positive slight jaundice. NECK: Supple. No JVD. No lymphadenopathy. No thyromegaly. LUNGS: Decreased breath some bilaterally with fine rhonchi mild expiratory wheezes. HEART: Irregular rate and rhythm. No murmur. ABDOMEN: Soft. Bowel sounds are present. No masses. Slight tenderness to the right lower quadrant. EXTREMITIES: No pedal edema. No calf tenderness. Slight blue coloring to the fingertips. NEUROLOGICAL: Patient is awake, alert and oriented x3. Cranial nerves 2 through 12 are grossly intact. ASSESSMENT AND PLAN 1. Metabolic encephalopathy secondary to enterococcus UTI, consult with Dr. Jesus valencia, he has recommended Azactam, Flagyl and Macrobid for 10 days. PICC line will be ordered and eliquis placed on hold. 2. Recurrent urinary tract infection. Colonoscopy does not show a fistula be tween the bladder and bowel. 3. Diarrhea, new, with right lower quadrant tenderness, inflammation against ischemic bowel noted in CAT scan with thickening, in the cecum and ascending colon, patient or the had a colonoscopy done, were starting on IV Flagyl, await infectious disease recommendation, on IV vancomycin. Stool cultures to be obtained. 3. Chronic pain syndrome: Has been on gabapentin and hydrocodone. 4. Hypothyroidism. Continue patient on levothyroxin 12.5 g daily. 5. Hypokalemia. Replace potassium for a total of 160 mEq, repeat potassium later today and tomorrow. 6. 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 7. Diabetes mellitus type 2. Continue on Tradjenta and Humalog per sliding scales coverage and still on Synjardy/Metformin mg daily. 8. Severe peripheral neuropathy: Remain on gabapentin. 9. Chronic back pain post surgery and pain management continue on hydrocodone and muscle relaxer. 10. Severe PAD with arterial thrombosis post subclavian surgery patient was kept on Eliquis and Plavix. 11. Chronic depression: Has been on Cymbalta 30 mg a day. 12. A. fib with RVR, paroxysmal atrial fibrillation. Continue beta yaya has been changed to metoprolol increased to 25 mg twice daily by cardiology. Requested cardiology to consider the patient's fingers are becoming dark blue since increased dose of metoprolol. Eliquis placed on hold for PICC line insertion. Continue amiodarone 200 mg twice daily oral, consult appreciated. 13. 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 Flores. Patient to have a repeat colonoscopy in 3 months as an outpatient. No sign of f istula. 14. Bilateral ear and jaw pain. Increase Flexeril 10 mg daily at bedtime. Toradol 10 mg every 6 hours. 15. Hypomagnesium. Continue to replace magnesium and repeat levels 16. GI prophylaxis: Remain on omeprazole 20 mg a day. 17. DVT prophylaxis: Hold Eliquis. 18. COVID-19 testing was negative. DISCHARGE PLAN Return to [facility] after PICC line placement Impression and plan of care have been directed as dictated by the signing physician. Karen Quintero nurse practitioner acting as scribe for signing physician. Objective - Vital Signs Vital signs: Vital Signs Temp 97.6 F 04/22/21 07:41 Pulse 96 04/22/21 08:00 Resp 18 04/22/21 08:00 BP 120/73 04/22/21 07:41 Pulse Ox 100 04/22/21 07:41 Intake & Output 04/21/21 04/22/21 04/22/21 18:59 06:59 18:59 Intake Total 960 Balance 960 Weight 70 kg Intake: Oral 960 Other: Voiding Method Toilet Bedside Commode Toilet Diaper # Voids 2 2 - Labs CBC & Chem 7: 04/21/21 08:04 04/21/21 08:04 Labs: Abnormal Lab Results - Last 24 Hours (Table) 04/21/21 04/21/21 04/21/21 Range/Units 08:04 11:59 16:57 Lymphocytes # (Manual) 0.91 L (1.0-4.8) k/uL Metamyelocytes # (Man) 0.10 H (0) k/uL Myelocytes # (Manual) 0.14 H (0) k/uL POC Glucose (mg/dL) 297 H 161 H (75-99) mg/dL 04/21/21 04/22/21 Range/Units 20:30 06:17 Lymphocytes # (Manual) (1.0-4.8) k/uL Metamyelocytes # (Man) (0) k/uL Myelocytes # (Manual) (0) k/uL POC Glucose (mg/dL) 236 H 146 H (75-99) mg/dL Microbiology - Last 24 Hours (Table) 04/15/21 14:17 Blood Culture - Final Blood No Growth after 144 hours 04/15/21 14:17 Blood Culture - Final Blood No Growth after 144 hours 04/17/21 20:16 Urine Culture - Final Urine,Voided Enterococcus faecium
--- NOTE | 2021-04-22 15:44 | IR ---
EXAMINATION TYPE: IR cvc insert >=5 years DATE OF EXAM: 04/22/2021 COMPARISON: NONE CLINICAL HISTORY: Infection Needs long-term intravenous access for antibiotics. PROCEDURE: Hand hygiene obtained with soap and water and alcohol-based hand rub. After informed consent, the skin overlying the right basilic vein was localized with ultrasound and n oted to be compressible and patent. An ultrasound image was obtained and submitted on the patient's chart. The overlying skin was prepped and draped and Lidocaine was used for local anesthesia. A ski n hollie was made with a scalpel. Access was gained to the vein under ultrasound guidance with a 21 ga uge needle and a 0.018 inch wire was advanced. Access site was dilated with Peel-Away sheath and cat heter tailored to the appropriate length and advanced such that the distal tip is at the cavoatrial j unction. Spot image was obtained verifying placement. Catheter was fixed to the skin and a sterile dressing was placed following hemostasis. Catheter was aspirated and flushed with saline. Patient w as discharged in stable condition without complication. Maximal barrier technique is utilized. Ultra sound image is documented on the chart. Ultrasound used with sterile technique. Fluoro time and fluoroscopic images submitted to document procedure: 10 intraoperative C-arm images d ocument the procedure, 0.2 minutes fluoroscopy time supplied IMPRESSION: STATUS POST ULTRASOUND AND FLUOROSCOPIC GUIDED PICC LINE PLACEMENT, READY FOR USE. THIS PROCEDURE WAS PERFORMED BY THE UNDERSIGNED.
[2021-04-22 17:21] LABS: Glucose,Whole Blood 137 mg/dL (75-99)
--- NOTE | 2021-04-22 18:30 | PN ---
PROGRESS NOTE DATE OF SERVICE: 04/22/2021 REASON FOR FOLLOWUP: 1. Urinary tract infection. 2. Colitis, possibly ischemic. INTERVAL HISTORY: The patient is afebrile. The patient is feeling better. The patient's abdominal pain has improved. The patient denies having any chest pain, shortness of breath or cough. No diarrhea. No nausea, no vomiting. PHYSICAL EXAMINATION: Blood pressure 126/58 with a pulse of 99, temperature 97.5. She is 99% on 2 L nasal cannula. GENERAL DESCRIPTION: General description is an elderly female lying in bed in no distress. RESPIRATORY SYSTEM: Unlabored breathing. Clear to auscultation anteriorly. HEART: S1, S2. Regular rate and rhythm. ABDOMEN: Soft. No tenderness. LABS: Vancomycin trough is 14.1. DIAGNOSTIC IMPRESSION AND PLAN: 1. Patient with recurrent urinary tract infection. Urine culture now showing Enterococcus faecium; on vancomycin. May transition to a short course of oral Macrobid on discharge. 2. Patient with colitis, possibly ischemic, covered with Azactam and Flagyl. May transition to a short course of Invanz on discharge. MMODL / IJN: [id number] /
[2021-04-22 19:50] LABS: Glucose,Whole Blood 228 mg/dL (75-99)
[2021-04-22] MEDS: CLOPIDOGREL 75 MG TAB PO SCH (21:06)
[2021-04-22] MEDS: ATORVASTATIN 40 MG TAB PO SCH (21:06)
[2021-04-22] MEDS: DULoxetine HCL 30 MG CAPSULE.DR PO SCH (21:07)
[2021-04-22] MEDS: CYCLOBENZAPRINE 10 MG TAB PO SCH (21:07)
[2021-04-22] MEDS: DULoxetine HCL 60 MG CAPSULE.DR PO SCH (21:08)
[2021-04-22] MEDS: LEVOTHYROXINE 25 MCG TAB PO SCH (21:11)
[2021-04-22] MEDS: TEMAZEPAM 15 MG CAP PO SCH (21:12)
[2021-04-22] MEDS: rOPINIRole HCL 4 MG TABLET PO SCH (22:01)
[2021-04-22] MEDS: HYDROcodone/APAP 10-325MG 1 EACH TAB PO PRN (22:05)
[2021-04-23] MEDS: VANCOMYCIN 1,250 MG in SODIUM CHLORIDE 0.9% 250 ML IVPB SCH (02:52)
[2021-04-23] MEDS: metroNIDAZOLE-NS PMX 500 MG in SALINE 1 100ML.BAG IVPB SCH ×2 (05:10→12:11)
[2021-04-23] MEDS: SODIUM CHLORIDE 0.9% 1,000 ML IV SCH (05:27)
[2021-04-23 06:11] LABS: Glucose,Whole Blood 133 mg/dL (75-99)
[2021-04-23] MEDS: GABAPENTIN 300 MG CAP PO SCH (06:30)
[2021-04-23] MEDS: KETOROLAC 15 MG/ML 1 ML VIAL IVP SCH ×2 (06:30→12:09)
[2021-04-23] MEDS: MIDODRINE 5 MG TAB PO SCH ×2 (06:31→12:26)
[2021-04-23] MEDS: INSULIN ASPART (NovoLOG) 100 UNIT/ML VIAL SQ SCH ×2 (06:31→12:08)
[2021-04-23 08:20] LABS: African American GFR (CKD) >90 (>60 ml/min/1.73 sqM); Non-African American GFR(CKD) >90 (>60 ml/min/1.73 sqM)
[2021-04-23] MEDS: AZTREONAM 2 GM in SODIUM CHLORIDE 0.9% 100 ML IVPB SCH (08:24)
[2021-04-23] MEDS: HYDROcodone/APAP 10-325MG 1 EACH TAB PO PRN (08:25)
[2021-04-23] MEDS: CALCIUM CARB-VIT D 500 MG-5 MCG TAB PO SCH (08:25)
[2021-04-23] MEDS: LINAGLIPTIN 5 MG TABLET PO SCH (08:26)
[2021-04-23] MEDS: EMPAGLIFLOZIN PO SCH (08:26)
[2021-04-23] MEDS: METOPROLOL TARTRATE 25 MG TAB PO SCH (08:26)
[2021-04-23] MEDS: METFORMIN HCL PO SCH (08:26)
[2021-04-23] MEDS: allopurinoL 100 MG TAB PO SCH (08:26)
[2021-04-23] MEDS: AMIODARONE 200 MG TAB PO SCH (08:26)
[2021-04-23] MEDS: IPRATROPIUM BROMIDE 0.06% NASAL SPRAY (15 ML) EA NOSTRIL SCH (08:27)
[2021-04-23] MEDS: TRIHEXYPHENIDYL 2 MG TAB PO SCH (08:29)
[2021-04-23 10:37] VITALS: RESP 16
--- NOTE | 2021-04-23 10:40 | P.DS ---
Providers Date of admission: 04/16/21 07:36 Expected date of discharge: 04/23/21 Attending physician: Veronica Avelar Consults: 04/15/21 16:57 Consult Physician Routine Consulting Provider: Jessica Flores Consult Reason/Comments: Possible colovesicular fistula Do you want consulting provider notified?: Yes Consult Physician Routine Consulting Provider: Catherine Lee Consult Reason/Comments: Drug resistant UTI with multiple drug ALLERGIES Do you want consulting provider notified?: Yes 04/15/21 16:58 Consult Physician Routine Consulting Provider: Adi Pak Consult Reason/Comments: Sinus tachycardia Do you want consulting provider notified?: Yes [facility]: 81-year-old female with multiple medical problem who was one of Dr. Rocha patient is known to have factor V Leiden Yoshi deficiency, type 2 diabetes, non- Hodgkin's lymphoma, severe compression and bulging disc involving 3 lumbar spine vertebrae which patient has been seen Dr. Edward'raymundo and had surgical intervention in the past. Patient had severe abnormal mobility balance and gait ended up in the [facility] for a few weeks every time she is hospit alized. Patient was hospitalized at [facility] 03/29/2021 because of hypoxia and aspiration pneumonia was the hospital to the 15 she become very debilitated not been able template and walk and decided the best option course to have patient go to [facility] on the [place] [facility]. Patient has been there for the last few days she developed to have worsening symptoms with fever, chills, altered mental status with worsening lower abdominal pain and discomfort patient was not acting herself noticed by [facility] staff will call Dr. Avelar and have [facility] with temperature of 101 at the time slightly elevated white blood cell. 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 Patient was post to see general surgery and plan to do surgical correction at some point. After presentation to [facility] patient was not acting herself initially more confused mildly hypotensive remain anemic no major abnormality with electrolyte imbalance. UA can was very positive at this time patient be started on Zosyn. The IV. 04/16: Patient had heart rate up to 197 then 124, Cardizem drip was started and subsequently discontinued. awake overnight monitor was sinus tachycardia. She is now running at 102, blood pressure 103/64, pulse ox 95% on 3 L nasal cannula. Patient has been afebrile. Blood sugars are running between 134 and 166. Urine culture is in progress. Patient has been seen by cardiology and recommended oral Cardizem and atenolol. Patient has been seen by Dr. Lee with recommendations to continue meropenem. Dr. Flores is also in place. 04/17: Dr. Flores contacted by Dr. Farooq via phone call regarding consult and she will be in to see the patient. Patient has had A. fib with RVR and Cardizem drip was started. She apparently went up to 140 bpm and Cardizem was up to 15 mg per hour. This appears to have been stopped and there is an order for amiodarone from cardiology. She is afebrile, heart rate 114, blood pressure 136/69, pulse ox 99% on 3 L nasal cannula. Patient is eating 25-75% of her meals. 04/18: Dr. Flores has evaluated the patient with plan for colonoscopy on Wednesday. Patient's heart rate is now running between 87 and 107 sinus rhythm. She is off Cardizem drip and amiodarone drip, transitioned to oral amiodarone 400 mg twice daily continued on atenolol 12.[address] Lee is ordered for a new urinalysis which was cloudy, leukoesterase large, WBC is greater than 182, WBC clumps few and repeat urine culture is in progress. Patient is continued on IV meropenem. Patient states abdominal pain is running 23/10. Blood sugars are running between 167 and 236. Anticipate discharge back to [facility] on Thursday 04/19: Patient is scheduled for a colonoscopy with Dr. Flores today. Patient is complaining of jaw and bilateral ear pain. Upon examination it appears that it may be related to TMJ, patient has no rash or signs of Benz's Familia. She is also complaining of jumping sensation to lower extremities. Her potassium this morning was 2.7. We will replace with a total of 160 mEq of oral potassium. Patient remained afebrile, heart rate 116, respirations 18, blood pressure 142/90, pulse ox 95% on room air. Patient states that abdominal pain is improving. Anticipated discharge back to [facility] on Wednesday. 04/20: Patient is found resting comfortably in bed complaining of bilateral jaw pain and lower extremity discomfort including restless leg. Patient had her potassium and magnesium replaced yesterday. Repeat potassium 3.6, repeat mag 1.5. Antibiotics changed to Vanco per the culture results. Patient currently is tachycardic and on Cordarone. Suggested to stop the atenolol due to ulcerations of bilateral hands and perhaps start dig. Awaiting cardiology. Will increase Flexeril to 5 mg at night and Toradol 10 mg every 6 hours scheduled. 04/21: Patient is doing okay, however she has increasing intention tremors, no more leg cramps or picograms, potassium was replaced, patient however has right-sided lower quadrant tenderness, had 3 bowel movements since midnight, all watery, stool for C. diff was requested, patient remains on vancomycin for enterococcus UTI, was requesting stool culture and sensitivity, and started on IV Flagyl this time, patient has infectious diseases on board, we will discuss with him. Also CAT scan shows thickening of th cecum and ascending colon, without any evidence of obstruction or perforation, inflammatory process or bowel diverticulitis suspected. We discussed discontinuing Florinef at this time, and start on Flagyl, IV, increase Artane to 1 mg twice a day. 04/22: Patient is followed by Dr. Lee with recommendations for Azactam along with Flagyl and Macrobid for 10 day duration at discharge. PICC line will be ordered today and was placed on hold. Patient denies having any chest pain, she still has some right lowered abdominal discomfort. She denies having any diarrhea. Stool specimen has not been sent for study. Dr. Flores is following with plan for repeat colonoscopy in 3 months as an outpatient. She has been afe brile and vital signs stable. Pulse ox 99% on 2 L. Heart rate is 94, blood pressure 138/78. Blood sugars running between 142 and 236. Cardiology has signed off. Discharge plan will be to [facility] return to [facility] once PICC line can't be inserted. 04/23: Patient states that she has had a bowel movement and no blood was noted. She states she has some balance issues with ambulating. She denies having any lightheadedness or dizziness. Plan is for follow-up with Dr. Pak regarding peripheral cyanosis. Dr. Lee has recommended Azactam, Flagyl and Macrobid for 10 day course to treat UTI and then we will plan to continue Macrobid 100 mg daily for prophylaxis. She will be discharged back to [facility] today in stable condition. ASSESSMENT AND PLAN 1. Metabolic encephalopathy secondary to sepsis (POA) from enterococcus UTI. 2. Recurrent urinary tract infection. . 3. Diarrhea, new, with right lower quadrant tenderness, inflammation against ischemic bowel noted in CAT scan ruled out by Dr. Flores. 3. Chronic pain syndrome. 4. Hypothyroidism. 5. Hypokalemia. 6. 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 7. Diabetes mellitus type 2. 8. Severe peripheral neuropathy 9. Chronic back pain post surgery and pain management. 10. Severe PAD with arterial thrombosis post subclavian surgery patient was kept on Eliquis and Plavix. 11. Recurrent depression 12. A. fib with RVR, paroxysmal atrial fibrillation. 13. 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 Flores. Patient to have a repeat colonoscopy in 3 months as an outpatient. No sign of fistula. 14. Bilateral ear and jaw pain. 15. Hypomagnesium. 16. COVID-19 testing was negative. DISCHARGE PLAN Return to [facility] Impression and plan of care have been directed as dictated by the signing physician. Karen Quintero nurse practitioner acting as scribe for signing physician. Patient Condition at Discharge: Stable Plan - Discharge Summary Discharge Rx Participant: No New Discharge Prescriptions: New Loratadine [Claritin] 10 mg PO DAILY PRN tab PRN Reason: Congestion Cyclobenzaprine [Flexeril] 10 mg PO HS tab Aztreonam [Azactam] 2 gm IVPB Q8HR #30 Amiodarone [Cordarone] 200 mg PO BID #60 tab Metoprolol Tartrate [Lopressor] 25 mg PO BID tab metroNIDAZOLE [Flagyl] 500 mg PO Q8HR #30 tab Nitrofurantoin Monohyd/M-Cryst [Macrobid] 100 mg PO Q12HR #30 cap Continue allopurinoL [Zyloprim] 100 mg PO DAILY@0900 Calcium Carb-Vit D 500Mg-5Mcg [Oscal 500+D 5 Mcg (200 Iu)] 1 tab PO DAILY@0900 Levothyroxine Sodium [Synthroid] 12.5 mcg PO HS@2100 Ipratropium [place] 0.06%Nasal [Atrovent Nasal 0.06%] 2 spr EA NOSTRIL BID@0900,2099 Apixaban [Eliquis] 5 mg PO BID@0900,2099 DULoxetine HCL [Cymbalta] 60 mg PO HS@2100 DULoxetine HCL [Cymbalta] 30 mg PO HS@2100 Clopidogrel [Plavix] 75 mg PO HS@2100 Empagliflozin/Metformin HCl [Synjardy Xr 25-1,000 mg Tablet] 1 tab PO DAILY@0900 rOPINIRole HCL [Requip] 4 mg PO HS@2100 Omeprazole 20 mg PO DAILY PRN PRN Reason: GERD Estradiol Cream [Estrace Cream 0.01%] 1 gm VAGINAL SUTH@2099 Atorvastatin [Lipitor] 40 mg PO HS@2100 Loperamide [Imodium] 2 mg PO Q8H PRN PRN Reason: Loose Stool Psyllium Husk (with Sugar) [Metamucil Powder] 6 gm PO BID@0900,2099 Acetaminophen Tab [Tylenol] 650 mg PO Q4H PRN PRN Reason: Pain Insulin Lispro [humaLOG Kwikpen] See Protocol SQ ACHS Linagliptin [Tradjenta] 5 mg PO DAILY@0900 Mag Hydrox/Aluminum Hyd/Simeth [Mylanta Maximum Strength Liq] 10 ml PO Q4H PRN PRN Reason: Indigestion Trihexyphenidyl [Artane] 1 mg PO DAILY@0900 Midodrine [ProAmatine] 10 mg PO TID@0700,1100,1600 HYDROcodone/APAP 10-325MG [[place] 10-325] 1 tab PO BID PRN #6 tab PRN Reason: Pain Changed Temazepam [Restoril] 15 mg PO HS@2100 #3 cap Gabapentin 600 mg PO TID@0600,1400,2200 #9 tab Discontinued Baclofen [Lioresal] 10 mg PO TID PRN tab PRN Reason: Muscle Spasm dilTIAZem HCL 30 mg PO TID@0900,1300,2100 Fludrocortisone Acetate 0.1 mg PO DAILY@0900 atenoloL [Tenormin] 12.5 mg PO DAILY@0900 Discharge Medication List Calcium Carb-Vit D 500Mg-5Mcg [Oscal 500+D 5 Mcg (200 Iu)] 1 tab PO DAILY@0900 01/05/14 [History] allopurinoL [Zyloprim] 100 mg PO DAILY@89901/05/14 [History] Levothyroxine Sodium [Synthroid] 12.5 mcg PO HS@209903/16/14 [History] Ipratropium [place] 0.06%Nasal [Atrovent Nasal 0.06%] 2 spr EA NOSTRIL BID@899,209907/03/20 [History] Apixaban [Eliquis] 5 mg PO BID@899,209910/06/20 [History] DULoxetine HCL [Cymbalta] 60 mg PO HS@209912/17/20 [History] Estradiol Cream [Estrace Cream 0.01%] 1 gm VAGINAL SUTH@209912/17/20 [History] Atorvastatin [Lipitor] 40 mg PO HS@209912/27/20 [History] Loperamide [Imodium] 2 mg PO Q8H PRN 12/30/20 [History] Psyllium Husk (with Sugar) [Metamucil Powder] 6 gm PO BID@899,209902/13/21 [History] DULoxetine HCL [Cymbalta] 30 mg PO HS@209902/28/21 [History] Acetaminophen Tab [Tylenol] 650 mg PO Q4H PRN 03/29/21 [History] Clopidogrel [Plavix] 75 mg PO HS@209903/29/21 [History] Empagliflozin/Metformin HCl [Synjardy Xr 25-1,000 mg Tablet] 1 tab PO DAILY@89903/29/21 [History] Insulin Lispro [humaLOG Kwikpen] See Protocol SQ ACHS 03/29/21 [History] Linagliptin [Tradjenta] 5 mg PO DAILY@89903/29/21 [History] rOPINIRole HCL [Requip] 4 mg PO HS@209903/29/21 [History] Mag Hydrox/Aluminum Hyd/Simeth [Mylanta Maximum Strength Liq] 10 ml PO Q4H PRN 04/15/21 [History] Midodrine [ProAmatine] 10 mg PO TID@0700,1100,1600 04/15/21 [History] Omeprazole 20 mg PO DAILY PRN 04/15/21 [History] Trihexyphenidyl [Artane] 1 mg PO DAILY@900 03/21/ [History] Amiodarone [Cordarone] 200 mg PO BID #60 tab 04/23/21 [Rx] Aztreonam [Azactam] 2 gm IVPB Q8HR #30 04/23/21 [Rx] Cyclobenzaprine [Flexeril] 10 mg PO HS tab 04/23/21 [Rx] Gabapentin 600 mg PO TID@0600,1400,2200 #9 tab 04/23/21 [Rx] HYDROcodone/APAP 10-325MG [[place] 10-325] 1 tab PO BID PRN #6 tab 04/23/21 [Rx] Loratadine [Claritin] 10 mg PO DAILY PRN tab 04/23/21 [Rx] Metoprolol Tartrate [Lopressor] 25 mg PO BID tab 04/23/21 [Rx] Nitrofurantoin Monohyd/M-Cryst [Macrobid] 100 mg PO Q12HR #30 cap 04/23/21 [Rx] Temazepam [Restoril] 15 mg PO HS@2100 #3 cap 04/23/21 [Rx] metroNIDAZOLE [Flagyl] 500 mg PO Q8HR #30 tab 04/23/21 [Rx] Follow up Appointment(s)/Referral(s): Adi Pak MD [STAFF PHYSICIAN] - 1 Week (re peripheral cyanosis) Veronica Avelar MD [STAFF PHYSICIAN] - 1 Week ([facility] ) Jessica Flores DO [Doctor of Osteopathic Medicine] - 2 Weeks Catherine Lee MD [STAFF PHYSICIAN] - 3 Days Discharge Disposition: TRANSFER TO SNF/ECF
[2021-04-23 11:41] LABS: Glucose,Whole Blood 188 mg/dL (75-99)
[2021-04-23 12:53] VITALS: BP 115/56; PULSE 99; TEMP 96.4
[2021-04-23 13:26] VITALS: BMI 28.0
--- NOTE | 2021-04-23 15:35 | PN ---
PROGRESS NOTE DATE OF SERVICE: 04/23/2021 REASON FOR FOLLOWUP: Urinary tract infection and possible ischemic colitis. INTERVAL HISTORY: The patient is afebrile. The patient is breathing comfortably, feeling better. Denies having any chest pain, shortness of breath or cough. No vomiting. currently controlled. No nausea, vomiting or diarrhea. PHYSICAL EXAMINATION: Blood pressure 115/56, pulse of 99, temperature 96.4. She is 100% on 2 L nasal cannula. GENERAL DESCRIPTION: General description is an elderly female lying in bed in no distress. RESPIRATORY SYSTEM: Unlabored breathing. Clear to auscultation anteriorly. HEART: S1, S2. Regular rate and rhythm. ABDOMEN: Soft. No tenderness. LABS: Creatinine is 0.48. DIAGNOSTIC IMPRESSION AND PLAN: 1. Patient with Enterococcus faecium urinary tract infection with a history of recurrent urinary tract infection. Received adequate vancomycin and a short course of oral antibiotic will be given on discharge. 2. Patient with ischemic colitis, possible MULTIPLE ANTIBIOTIC ALLERGIES. Short course of Azactam and Flagyl and close outpatient followup. MMODL / IJN: [id number] /
[2021-04-24] MEDS ORDERED: VANCOMYCIN TROUGH DUE 1 EACH MISC MISCELLANE ONE (10:00)
== END 2021-04-23 13:12 | DRG 871 ==
LOC: EC 13:38 → 5NMEDONC 16:56 → 3SCARD 23:25 → OBSVTOIN 04-16 07:36
PROVIDERS: ADMIT Family Medicine; ATTEND Family Medicine
PROC: 0DBL8ZX Excision of Transverse Colon, Via Natural or Artificial Opening Endoscopic, Diagnostic (ICD-10-PCS; principal; 2021-04-19 09:00)
PROC: 0DBN8ZX Excision of Sigmoid Colon, Via Natural or Artificial Opening Endoscopic, Diagnostic (ICD-10-PCS; principal; 2021-04-19 09:00)
PROC: 02HV33Z Insertion of Infusion Device into Superior Vena Cava, Percutaneous Approach (ICD-10-PCS; 2021-04-22)
DX: A41.81 Sepsis due to Enterococcus (principal); G93.41 Metabolic encephalopathy; N39.0 Urinary tract infection, site not specified; I69.351 Hemiplegia and hemiparesis following cerebral infarction affecting right dominant side; Z16.24 Resistance to multiple antibiotics; F33.9 Major depressive disorder, recurrent, unspecified; D68.51 Activated protein C resistance; I47.1 Supraventricular tachycardia; K55.9 Vascular disorder of intestine, unspecified; E11.41 Type 2 diabetes mellitus with diabetic mononeuropathy; I48.0 Paroxysmal atrial fibrillation; G25.81 Restless legs syndrome; E11.51 Type 2 diabetes mellitus with diabetic peripheral angiopathy without gangrene; R65.20 Severe sepsis without septic shock; Z79.4 Long term (current) use of insulin; Z20.822 Contact with and (suspected) exposure to COVID-19; M48.04 Spinal stenosis, thoracic region; E78.5 Hyperlipidemia, unspecified; K63.5 Polyp of colon; K44.9 Diaphragmatic hernia without obstruction or gangrene; I10 Essential (primary) hypertension; K21.9 Gastro-esophageal reflux disease without esophagitis; R29.6 Repeated falls; E83.42 Hypomagnesemia; E87.6 Hypokalemia; I45.10 Unspecified right bundle-branch block; M21.371 Foot drop, right foot; E03.9 Hypothyroidism, unspecified; M10.9 Gout, unspecified; G43.909 Migraine, unspecified, not intractable, without status migrainosus; G89.4 Chronic pain syndrome; R13.10 Dysphagia, unspecified; H92.03 Otalgia, bilateral; K59.00 Constipation, unspecified; M47.815 Spondylosis without myelopathy or radiculopathy, thoracolumbar region; M48.061 Spinal stenosis, lumbar region without neurogenic claudication; M79.605 Pain in left leg; M19.90 Unspecified osteoarthritis, unspecified site; Z79.890 Hormone replacement therapy; Z79.01 Long term (current) use of anticoagulants; Z79.02 Long term (current) use of antithrombotics/antiplatelets; Z79.52 Long term (current) use of systemic steroids; Z79.899 Other long term (current) drug therapy; Z60.2 Problems related to living alone; Z86.718 Personal history of other venous thrombosis and embolism; Z86.711 Personal history of pulmonary embolism; Z87.19 Personal history of other diseases of the digestive system; Z87.2 Personal history of diseases of the skin and subcutaneous tissue; Z95.828 Presence of other vascular implants and grafts; Z91.81 History of falling; Z85.72 Personal history of non-Hodgkin lymphomas; Z92.3 Personal history of irradiation; Z92.21 Personal history of antineoplastic chemotherapy; Z87.11 Personal history of peptic ulcer disease; Z87.440 Personal history of urinary (tract) infections; Z90.710 Acquired absence of both cervix and uterus; Z87.42 Personal history of other diseases of the female genital tract; Z96.653 Presence of artificial knee joint, bilateral; Z98.1 Arthrodesis status; Z98.42 Cataract extraction status, left eye; Z98.41 Cataract extraction status, right eye; Z87.01 Personal history of pneumonia (recurrent); Z90.49 Acquired absence of other specified parts of digestive tract; Z87.39 Personal history of other diseases of the musculoskeletal system and connective tissue; Z90.89 Acquired absence of other organs; Z98.890 Other specified postprocedural states; Z71.3 Dietary counseling and surveillance; W19.XXXA Unspecified fall, initial encounter; Z88.5 Allergy status to narcotic agent; Z88.1 Allergy status to other antibiotic agents; Z88.0 Allergy status to penicillin; Z88.2 Allergy status to sulfonamides; Z91.048 Other nonmedicinal substance allergy status; Z82.49 Family history of ischemic heart disease and other diseases of the circulatory system; Z82.3 Family history of stroke; Z80.1 Family history of malignant neoplasm of trachea, bronchus and lung; Z80.3 Family history of malignant neoplasm of breast; Z81.8 Family history of other mental and behavioral disorders
CPT/HCPCS: 36415; 36573; 45381; 45384; 45385; 70450; 71046; 72125; 74176; 80048; 80053; 80202; 81001; 82550; 82565; 83540; 83605; 83630; 83735; 83880; 84132; 84484; 85025; 85027; 85610; 85730; 87040; 87045; 87046; 87077; 87086; 87186; 87635; 88305; 93005; 94760; 99285

== ENCOUNTER 2021-04-27 08:04 | Emergency (ER) | payer MEDICARE, OTHER ==
[2021-04-27 08:13] VITALS: RESP 18; TEMP 98.3
[2021-04-27] MEDS ORDERED: SODIUM CHLORIDE 0.9% 1,000 ML IV STA (08:15)
[2021-04-27 09:03] LABS: Appearance,Urine Bloody (Clear)
[2021-04-27 09:04] LABS: Color,Urine Dark Red
[2021-04-27 09:08] LABS: Bacteria,Urine Rare /hpf; RBC,Urine >182 /hpf (0-5); WBC,Urine >182 /hpf (0-5)
[2021-04-27 09:18] LABS: ALT 13 U/L (4-34); AST 25 U/L (14-36); African American GFR (CKD) >90 (>60 ml/min/1.73 sqM); Albumin 2.9 g/dL (3.5-5.0); Alkaline Phosphatase 121 U/L (38-126); Amylase 42 U/L (30-110); Anion Gap 6 mmol/L; Blood Urea Nitrogen 9 mg/dL (7-17); Calcium 9.5 mg/dL (8.4-10.2); Carbon Dioxide 26 mmol/L (22-30); Chloride 107 mmol/L (98-107); Glucose 124 mg/dL (74-99); Lipase 94 U/L (23-300); Non-African American GFR(CKD) >90 (>60 ml/min/1.73 sqM); Potassium 3.5 mmol/L (3.5-5.1); Sodium 139 mmol/L (137-145); Total Bilirubin 0.4 mg/dL (0.2-1.3); Total Protein 5.2 g/dL (6.3-8.2)
[2021-04-27 09:20] LABS: Anisocytosis Slight; Basophils % (A) 0 %; Eosinophils # (A) 0.1 k/uL (0-0.7); Eosinophils % (A) 1 %; HCT 30.3 % (34.0-46.0); Hypochromasia Slight; Lymphocytes # (A) 1.3 k/uL (1.0-4.8); Lymphocytes % (A) 14 %; MCH 28.3 pg (25.0-35.0); MCHC 33.1 g/dL (31.0-37.0); Mean Platelet Volume 6.9; Monocytes # (A) 1.7 k/uL (0-1.0); Monocytes % (A) 19 %; Neutrophils # (A) 5.5 k/uL (1.3-7.7); Neutrophils % (A) 62 %; Platelet Count 301 k/uL (150-450); Poikilocytosis Slight; RBC 3.55 m/uL (3.80-5.40); RDW 17.5 % (11.5-15.5); WBC 8.9 k/uL (3.8-10.6)
--- NOTE | 2021-04-27 09:24 | ED ---
Female Urogenital HPI - General Chief complaint: Urogenital Stated complaint: Blood in urine Time Seen by Provider: 04/27/21 08:12 Source: patient, EMS, RN notes reviewed Mode of arrival: EMS Limitations: no limitations - History of Present Illness Initial comments: Patient is a 81-year-old female that presents to emergency department via EMS from [facility] with hematuria. Patient notes that she was recently discharged from the hospital and sent home with antibiotics for UTI. Patient notes she does have frequent and recurrent chronic UTIs. She denied any confusion as she was in all times for this time. She denied any fevers chills. She noted that she did have some suprapubic discomfort and dysuria. She was otherwise a well- appearing 81-year-old female. She denied any chest pain shortness of breath headache nausea vomiting diarrhea constipation fever fatigue chills. - Related Data Home Medications Medication Instructions Recorded Confirmed Calcium Carb-Vit D 500Mg-5Mcg 1 tab PO DAILY 01/05/14 04/27/21 [Oscal 500+D 5 Mcg (200 Iu)] allopurinoL [Zyloprim] 100 mg PO DAILY 01/05/14 04/27/21 Levothyroxine Sodium [Synthroid] 12.5 mcg PO HS 03/16/14 04/27/21 Ipratropium Chandler 0.06%Nasal 2 spr EA NOSTRIL BID 07/03/20 04/27/21 [Atrovent Nasal 0.06%] Apixaban [Eliquis] 5 mg PO BID 10/06/20 04/27/21 DULoxetine HCL [Cymbalta] 60 mg PO HS 12/17/20 04/27/21 Estradiol Cream [Estrace Cream 1 gm VAGINAL SUTH@2100 12/17/20 04/27/21 0.01%] Atorvastatin [Lipitor] 40 mg PO HS 12/27/20 04/27/21 Loperamide [Imodium] 2 mg PO Q8H PRN 12/30/20 04/27/21 Psyllium Husk (with Sugar) 6 gm PO BID 02/13/21 04/27/21 [Metamucil Powder] DULoxetine HCL [Cymbalta] 30 mg PO HS 02/28/21 04/27/21 Acetaminophen Tab [Tylenol] 650 mg PO Q4H PRN 03/29/21 04/27/21 Clopidogrel [Plavix] 75 mg PO HS 03/29/21 04/27/21 Empagliflozin/Metformin HCl 1 tab PO DAILY 03/29/21 04/27/21 [Synjardy Xr 25-1,000 mg Tablet] Insulin Lispro [humaLOG Kwikpen] See Protocol SQ ACHS 03/29/21 04/27/21 Linagliptin [Tradjenta] 5 mg PO DAILY 03/29/21 04/27/21 rOPINIRole HCL [Requip] 4 mg PO HS 03/29/21 04/27/21 Mag Hydrox/Aluminum Hyd/Simeth 10 ml PO Q4H PRN 04/15/21 04/27/21 [Mylanta Maximum Strength Liq] Midodrine [ProAmatine] 10 mg PO TID@0700,1100,1600 04/15/21 04/27/21 Omeprazole 20 mg PO DAILY PRN 04/15/21 04/27/21 Trihexyphenidyl [Artane] 1 mg PO DAILY 04/15/21 04/27/21 Amiodarone [Cordarone] See Taper PO DIRECTED 04/27/21 04/27/21 Aztreonam [Azactam] 2 gm IVPB TID@0600,1400,2200 04/27/21 04/27/21 Nitrofurantoin Monohyd/M-Cryst 100 mg PO Q12H 04/27/21 04/27/21 [Macrobid] Temazepam [Restoril] 15 mg PO HS 04/27/21 04/27/21 metroNIDAZOLE [Flagyl] 500 mg PO TID@0600,1400,2200 04/27/21 04/27/21 Previous Rx's Medication Instructions Recorded Cyclobenzaprine [Flexeril] 10 mg PO HS tab 04/23/21 Gabapentin 600 mg PO TID@0600,1400,2200 #9 tab 04/23/21 HYDROcodone/APAP 10-325MG [Hall 1 tab PO BID PRN #6 tab 04/23/21 10-325] Loratadine [Claritin] 10 mg PO DAILY PRN tab 04/23/21 Metoprolol Tartrate [Lopressor] 25 mg PO BID tab 04/23/21 Cephalexin [Keflex] 500 mg PO Q6HR #40 cap 04/27/21 Allergies Allergy/AdvReac Type Severity Reaction Status Date / Time adhesive Allergy red skin, Verified 04/27/21 09:46 blisters cefaclor [From Ceclor] Allergy Rash/Hives Verified 04/27/21 09:46 ciprofloxacin [From Cipro] Allergy Rash/Hives Verified 04/27/21 09:46 ciprofloxacin HCl Allergy Rash/Hives Verified 04/27/21 09:46 [From Cipro] hydromorphone HCl Allergy Anaphylaxis Verified 04/27/21 09:46 [From Dilaudid] Penicillins Allergy Rash/Hives Verified 04/27/21 09:46 clindamycin AdvReac Nausea & Verified 04/27/21 09:46 Vomiting sulfamethoxazole AdvReac Abdominal Verified 04/27/21 09:46 [From Bactrim] Pain trimethoprim [From Bactrim] AdvReac Abdominal Verified 04/27/21 09:46 Pain Review of Systems ROS Statement: Those systems with pertinent positive or pertinent negative responses have been documented in the HPI. ROS Other: All systems not noted in ROS Statement are negative. 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 History of Any Multi-Drug Resistant Organisms: None Reported Past Surgical History: Appendectomy, Back Surgery, Bladder Surgery, Breast Surgery, Cholecystectomy, Hysterectomy, Joint Replacement, Orthopedic Surgery, Tonsillectomy Additional Past Surgical History / Comment(s): 12/2020 PTBA with stent R brachial/cephalic artery, cervical fusion, lumbar laminectomy, R hip repair, bilateral thumbs/rods, R 3rd toe nathaniel, bilateral total knee arthroplasties, pain clinic procedures, R femur biopsy, D&Cs, bladder suspension, EGD, colonoscopies, L breast biopsy/axilary bx, bilateral cataract removals. Past Anesthesia/Blood Transfusion Reactions: No Reported Reaction Additional Past Anesthesia/Blood Transfusion Reaction / Comment(s): CLAUSTROPHOBIA Past Psychological History: Anxiety, Depression Smoking Status: Never smoker Past Alcohol Use History: None Reported Past Drug Use History: None Reported - Past Family History Father Family Medical History: Deep Vein Thrombosis (DVT), Pulmonary Embolus Additional Family Medical History / Comment(s): Father at age 32 from pulmonary embolism. Mother Family Medical History: Cancer Additional Family Medical History / Comment(s): breast Brother(s) Family Medical History: Cancer, CVA/TIA, Deep Vein Thrombosis (DVT), Myocardial Infarction (MA), Pulmonary Embolus, Vascular Disorder Additional Family Medical History / Comment(s): 2 brothers that have passed one from myocardial infarction and one from pulmonary embolism. 2 brothers are alive and one has lung cancer, one brother is alive with a brain aneurysm and CVA. General Exam Limitations: no limitations General appearance: alert, in no apparent distress, obese Head exam: Present: atraumatic, normocephalic, normal inspection Eye exam: Present: normal appearance, PERRL, EOMI. Absent: scleral icterus, conjunctival injection, periorbital swelling Neck exam: Present: normal inspection Respiratory exam: Present: normal lung sounds bilaterally. Absent: respiratory distress, wheezes, rales, rhonchi, stridor Cardiovascular Exam: Present: regular rate, normal rhythm, normal heart sounds. Absent: systolic murmur, diastolic murmur, rubs, gallop, clicks GI/Abdominal exam: Present: soft, tenderness (Suprapubic), normal bowel sounds. Absent: distended, guarding, rebound, rigid Extremities exam: Present: normal inspection, full ROM, normal capillary refill. Absent: tenderness, pedal edema, joint swelling, calf tenderness Back exam: Present: normal inspection, CVA tenderness (R), CVA tenderness (L) Neurological exam: Present: alert, oriented X3 Psychiatric exam: Present: normal affect, normal mood Skin exam: Present: warm, dry, intact, normal color. Absent: rash Course Vital Signs 04/27/21 08:07 Temperature 98.3 F Pulse Rate 106 H Respiratory 18 Rate Blood Pressure 106/59 O2 Sat by Pulse 94 L Oximetry Medical Decision Making - Medical Decision Making 81-year-old female complaining of hematuria, sent from [facility]. Labs,1 L normal saline, CT the abdomen and pelvis ordered. Labs: CBC unremarkable from baseline, CMP within normal limits, urinalysis shows greater than 182 red blood cells and white blood cells with rare bacteria. CT scans shows cystitis with no evidence of pyelonephritis. 2 g Rocephin ordered. Patient will be sent antibiotics to facility and pharmacy. Case discussed with Dr. Peters, patient discharge home. - Lab Data Result diagrams: 04/27/21 08:45 04/27/21 08:45 Lab Results 04/27/21 04/27/21 04/27/21 Range/Units 08:45 08:45 08:45 WBC 8.9 (3.8-10.6) k/uL RBC 3.55 L (3.80-5.40) m/uL Hgb 10.0 L (11.4-16.0) gm/dL Hct 30.3 L (34.0-46.0) % MCV 85.5 D (80.0-100.0) fL MCH 28.3 (25.0-35.0) pg MCHC 33.1 (31.0-37.0) g/dL RDW 17.5 H (11.5-15.5) % Plt Count 301 (150-450) k/uL MPV 6.9 Neutrophils % 62 % Lymphocytes % 14 % Monocytes % 19 % Eosinophils % 1 % Basophils % 0 % Neutrophils # 5.5 (1.3-7.7) k/uL Lymphocytes # 1.3 (1.0-4.8) k/uL Monocytes # 1.7 H (0-1.0) k/uL Eosinophils # 0.1 (0-0.7) k/uL Basophils # 0.0 (0-0.2) k/uL Hypochromasia Slight Poikilocytosis Slight Anisocytosis Slight Sodium 139 (137-145) mmol/L Potassium 3.5 (3.5-5.1) mmol/L Chloride 107 (98-107) mmol/L Carbon Dioxide 26 (22-30) mmol/L Anion Gap 6 mmol/L BUN 9 (7-17) mg/dL Creatinine 0.45 L (0.52-1.04) mg/dL Est GFR (CKD-EPI)AfAm >90 (>60 ml/min/1.73 sqM) Est GFR (CKD-EPI)NonAf >90 (>60 ml/min/1.73 sqM) Glucose 124 H (74-99) mg/dL Plasma Lactic Acid Luis 1.1 (0.7-2.0) mmol/L Calcium 9.5 (8.4-10.2) mg/dL Total Bilirubin 0.4 (0.2-1.3) mg/dL AST 25 (14-36) U/L ALT 13 (4-34) U/L Alkaline Phosphatase 121 (38-126) U/L Total Protein 5.2 L (6.3-8.2) g/dL Albumin 2.9 L (3.5-5.0) g/dL Amylase 42 (30-110) U/L Lipase 94 (23-300) U/L Urine Color Urine Appearance (Clear) Urine RBC (0-5) /hpf Urine WBC (0-5) /hpf Urine Bacteria (None) /hpf 04/27/21 Range/Units 08:54 WBC (3.8-10.6) k/uL RBC (3.80-5.40) m/uL Hgb (11.4-16.0) gm/dL Hct (34.0-46.0) % MCV (80.0-100.0) fL MCH (25.0-35.0) pg MCHC (31.0-37.0) g/dL RDW (11.5-15.5) % Plt Count (150-450) k/uL MPV Neutrophils % % Lymphocytes % % Monocytes % % Eosinophils % % Basophils % % Neutrophils # (1.3-7.7) k/uL Lymphocytes # (1.0-4.8) k/uL Monocytes # (0-1.0) k/uL Eosinophils # (0-0.7) k/uL Basophils # (0-0.2) k/uL Hypochromasia Poikilocytosis Anisocytosis Sodium (137-145) mmol/L Potassium (3.5-5.1) mmol/L Chloride (98-107) mmol/L Carbon Dioxide (22-30) mmol/L Anion Gap mmol/L BUN (7-17) mg/dL Creatinine (0.52-1.04) mg/dL Est GFR (CKD-EPI)AfAm (>60 ml/min/1.73 sqM) Est GFR (CKD-EPI)NonAf (>60 ml/min/1.73 sqM) Glucose (74-99) mg/dL Plasma Lactic Acid Luis (0.7-2.0) mmol/L Calcium (8.4-10.2) mg/dL Total Bilirubin (0.2-1.3) mg/dL AST (14-36) U/L ALT (4-34) U/L Alkaline Phosphatase (38-126) U/L Total Protein (6.3-8.2) g/dL Albumin (3.5-5.0) g/dL Amylase (30-110) U/L Lipase (23-300) U/L Urine Color Dark Red Urine Appearance Bloody H (Clear) Urine RBC >182 H (0-5) /hpf Urine WBC >182 H (0-5) /hpf Urine Bacteria Rare H (None) /hpf - Radiology Data Radiology results: report reviewed, image reviewed Disposition Clinical Impression: Hematuria, Cystitis Disposition: HOME SELF-CARE Condition: Stable Instructions (If sedation given, give patient instructions): Urinary Tract Infection in Women (ED) Additional Instructions: Please return to the Emergency Department if symptoms worsen or any other concerns. Take antibiotics as prescribed. Follow-up primary care 1-2 days. Follow-up with urologist as needed. Is patient prescribed a controlled substance at d/c from ED?: No Referrals: Alvarez Rocha DO [Primary Care Provider] - 1-2 days Abraham Negron MD [STAFF PHYSICIAN] - 1-2 days Time of Disposition: 10:23
[2021-04-27 09:35] LABS: MCV 85.5 fL (80.0-100.0)
--- NOTE | 2021-04-27 10:05 | CT ---
EXAMINATION TYPE: CT abdomen pelvis w con DATE OF EXAM: 04/27/2021 HISTORY: hematuria, UTI, bilateral flank pain CT DLP: 1177.9mGycm Automated Exposure Control for Dose Reduction was Utilized. CONTRAST: CT scan of the abdomen and pelvis is performed without oral but with IV Contrast, patient injected wi th 100 mL of Isovue 300. COMPARISON: CT abdomen and pelvis one week ago and older studies FINDINGS: LUNG BASES: No significant abnormality is appreciated. LIVER/GB: Cholecystectomy clips are redemonstrated. PANCREAS: No significant abnormality is seen. SPLEEN: No significant abnormality is seen. ADRENALS: No significant abnormality is seen. KIDNEYS: A few small simple appearing thin-walled cysts throughout both kidneys are again seen. Stabl e 2 mm nonobstructing left renal calculus lower Pole level axial image 37. Symmetric cortical medulla ry uptake and excretion without hydronephrosis seen bilaterally. Urinary bladder has eccentric abnorm al soft tissue density posteriorly inferiorly especially along the right aspect. BOWEL: Slightly prominent small and large bowel loops. No abnormally dilated bowel loops. Mild diffus e prominence of fecal material throughout the colon area UTERUS/ADNEXA: Uterus is surgically absent. LYMPH NODES: No greater than 1cm abdominal or pelvic lymph nodes are appreciated. OSSEOUS STRUCTURES: Surgical change right proximal femur is partially imaged. Posterior rods and scre ws transfix L4-S1 levels bilaterally. Posterior rods and screws transfix T12-L2 levels bilaterally. E xtensive ossific fusion of the posterior elements redemonstrated. OTHER: Mild calcified plaque of the aorta extends into branch vessels. IMPRESSION: New abnormal appearance of the bladder, given interval development in one week time a mas s or neoplasm is unlikely. Suspect dependent process slightly more prominent to right of midline. Wal l thickening would correlate with bladder infection or cystitis. No CT evidence for renal involvement or acute pyelonephritis though this is a clinical diagnosis. Stable 2 mm nonobstructing left renal c alculus.
[2021-04-27] MEDS ORDERED: cefTRIAXone 1,000 MG VIAL (IM USE) IM STA (10:21)
[2021-04-27] MEDS ORDERED: cefTRIAXone IN SWFI 1,000 MG/10 ML SYRINGE IVP STA (10:56)
[2021-04-27 11:23] VITALS: PULSE 100
[2021-04-27 11:24] VITALS: BP 117/79
== END 2021-04-27 11:24 | disposition home or self-care (01) ==
LOC: EC 08:04
DX: N30.91 Cystitis, unspecified with hematuria (principal); E11.40 Type 2 diabetes mellitus with diabetic neuropathy, unspecified; E11.36 Type 2 diabetes mellitus with diabetic cataract; E78.5 Hyperlipidemia, unspecified; E03.9 Hypothyroidism, unspecified; I10 Essential (primary) hypertension; K21.9 Gastro-esophageal reflux disease without esophagitis; M10.9 Gout, unspecified; M19.90 Unspecified osteoarthritis, unspecified site; F41.9 Anxiety disorder, unspecified; F32.9 Major depressive disorder, single episode, unspecified; E66.9 Obesity, unspecified; Z68.25 Body mass index [BMI] 25.0-25.9, adult; Z79.01 Long term (current) use of anticoagulants; Z79.02 Long term (current) use of antithrombotics/antiplatelets; Z79.4 Long term (current) use of insulin; Z79.899 Other long term (current) drug therapy; Z80.1 Family history of malignant neoplasm of trachea, bronchus and lung; Z82.49 Family history of ischemic heart disease and other diseases of the circulatory system; Z86.711 Personal history of pulmonary embolism; Z86.718 Personal history of other venous thrombosis and embolism; Z86.73 Personal history of transient ischemic attack (TIA), and cerebral infarction without residual deficits; Z88.0 Allergy status to penicillin; Z88.1 Allergy status to other antibiotic agents; Z88.2 Allergy status to sulfonamides; Z88.5 Allergy status to narcotic agent; Z90.49 Acquired absence of other specified parts of digestive tract; Z79.890 Hormone replacement therapy
CPT/HCPCS: 36415; 80053; 82150; 83605; 83690; 85025; 81001; 87086; 74177; 96374; 96361 ×2; 99284; J0696; Q9967

== ENCOUNTER 2021-05-05 11:49 | Emergency (ER) | payer MEDICARE, OTHER ==
[2021-05-05 12:17] VITALS: RESP 18; TEMP 98
--- NOTE | 2021-05-05 12:24 | ED ---
General Adult HPI - General Chief complaint: Fall Stated complaint: fall, rt hip pain Time Seen by Provider: 05/05/21 11:55 Source: patient, EMS Mode of arrival: EMS Limitations: no limitations - History of Present Illness Initial comments: Dictation was produced using [employer] dictation software. please excuse any grammatical, word or spelling errors. Chief Complaint: 81-year-old female transferred from [facility] on the leg. She presents after fall. History of Present Illness: 81-year-old female couple hours ago patient fell. She was trying to pull up her pants when she lost her balance and fell to the right side. She landed on her right side. After the fall she complains of right hip and right knee and right ankle pain. Patient does take anticoagulation medications. Patient is not sure if she hit her head per she denies any loss of consciousness. Denies any chest pain or abdominal pain. Denies any upper extremity pain or left lower extremity pain. The ROS documented in this emergency department record has been reviewed and confirmed by me. Those systems with pertinent positive or negative responses have been documented in the HPI. All other systems are other negative and/or noncontributory. PHYSICAL EXAM: General Impression: Alert and oriented x3, not in acute distress HEENT: Normocephalic atraumatic, extra-ocular movements intact, pupils equal and reactive to light bilaterally, mucous membranes moist. Cardiovascular: Heart regular rate and rhythm Chest: Able to complete full sentences, no retractions, no tachypnea Abdomen: abdomen soft, non-tender, non-distended, no organomegaly Musculoskeletal: Pulses present and equal in all extremities, no peripheral edema, right upper, left upper and left lower extremity are ranged without any calm patient's. Right lower extremity: No obvious gross deformities, Not externally or internally rotated, not shortened Motor: no focal deficits noted Neurological: CN II-XII grossly intact, no focal motor or sensory deficits noted Skin: Intact with no visualized rashes Psych: Normal affect and mood ED course: 81-year-old female presents with right hip pain after fall. Vital Signs upon arrival are within acceptable limits. Computed tomography scan of the head and C-spine shows no acute processes. Knee x-rays unremarkable. Ankle x- ray is unremarkable. Chest x-rays unremarkable for acute processes. Hip and pelvis x-ray shows no signs of occult fracture. Laboratory evaluation obtained. CBC within patient's usual baseline. Coag panel is negative. Metabolic panel shows potassium 3.1. Patient has prolonged QT, patient is on amiodarone. Jennifer ent's prolonged QT is likely secondary to amiodarone. Her potassium was placed with oral potassium. EKG interpretation: Ventricular rate 101, sinus tachycardia, NE interval 180, QRS 102, QTc 510. No NE prolongation, no ST or T-wave changes noted. . Overall, this EKG is unremarkable Magnesium is 1.9. Repeat EKG shows QT of 505. Patient reevaluated bedside found him in stable medical condition. Patient daughter is at the bedside able to provide more thorough history. Patient is currently at a rehab facility for debility secondary to frequent UTIs. She has grown physically weak over the last several months due to her recent hospitalizations patient is currently in rehab. She is bed bound and only allowed to get out of bed with assistance. Patient goes on to mention that she called for assistance however staff was not there. She tried to stand up on her own which caused her to fall. Patient told about her prolonged QT. They have a rehab physician that rounds on the patient's. Patient's told to notify anybody if she has palpitations. She feels well and is asymptomatic currently. No pain. Patient discharged - Related Data Home Medications Medication Instructions Recorded Confirmed Calcium Carb-Vit D 500Mg-5Mcg 1 tab PO DAILY 01/05/14 05/05/21 [Oscal 500+D 5 Mcg (200 Iu)] allopurinoL [Zyloprim] 100 mg PO DAILY 01/05/14 05/05/21 Levothyroxine Sodium [Synthroid] 12.5 mcg PO HS 03/16/14 05/05/21 Ipratropium [place] 0.06%Nasal 2 spr EA NOSTRIL BID 07/03/20 05/05/21 [Atrovent Nasal 0.06%] DULoxetine HCL [Cymbalta] 60 mg PO HS 12/17/20 05/05/21 Estradiol Cream [Estrace Cream 1 gm VAGINAL SUTH@2100 12/17/20 05/05/21 0.01%] Atorvastatin [Lipitor] 40 mg PO HS 12/27/20 05/05/21 Loperamide [Imodium] 2 mg PO Q8H PRN 12/30/20 05/05/21 Psyllium Husk (with Sugar) 6 gm PO BID 02/13/21 05/05/21 [Metamucil Powder] DULoxetine HCL [Cymbalta] 30 mg PO HS 02/28/21 05/05/21 Acetaminophen Tab [Tylenol] 650 mg PO Q4H PRN 03/29/21 05/05/21 Clopidogrel [Plavix] 75 mg PO HS 03/29/21 05/05/21 Insulin Lispro [humaLOG Kwikpen] See Protocol SQ ACHS 03/29/21 05/05/21 Linagliptin [Tradjenta] 5 mg PO DAILY 03/29/21 05/05/21 rOPINIRole HCL [Requip] 4 mg PO HS 03/29/21 05/05/21 Mag Hydrox/Aluminum Hyd/Simeth 10 ml PO Q4H PRN 04/15/21 05/05/21 [Mylanta Maximum Strength Liq] Midodrine [ProAmatine] 10 mg PO TID@0700,1100,1600 04/15/21 05/05/21 Omeprazole 20 mg PO DAILY PRN 04/15/21 05/05/21 Trihexyphenidyl [Artane] 1 mg PO DAILY 04/15/21 05/05/21 Amiodarone [Cordarone] 200 mg PO DAILY 04/27/21 05/05/21 Nitrofurantoin Monohyd/M-Cryst 100 mg PO DAILY 04/27/21 05/05/21 [Macrobid] Temazepam [Restoril] 15 mg PO HS 04/27/21 05/05/21 Apixaban [Eliquis] 2.5 mg PO BID 05/05/21 05/05/21 Ferrous Sulfate [Feosol] 325 mg PO BID 05/05/21 05/05/21 Loratadine [Claritin] 10 mg PO DAILY PRN 05/05/21 05/05/21 metFORMIN HCL [Glucophage XR] 1,000 mg PO DAILY 05/05/21 05/05/21 Previous Rx's Medication Instructions Recorded Cyclobenzaprine [Flexeril] 10 mg PO HS tab 04/23/21 Gabapentin 600 mg PO TID@0600,1400,2200 #9 tab 04/23/21 HYDROcodone/APAP 10-325MG [[place] 1 tab PO BID PRN #6 tab 04/23/21 10-325] Metoprolol Tartrate [Lopressor] 25 mg PO BID tab 04/23/21 Allergies Allergy/AdvReac Type Severity Reaction Status Date / Time adhesive Allergy red skin, Verified 05/05/21 12:39 blisters cefaclor [From Ceclor] Allergy Rash/Hives Verified 05/05/21 12:39 ciprofloxacin [From Cipro] Allergy Rash/Hives Verified 05/05/21 12:39 ciprofloxacin HCl Allergy Rash/Hives Verified 05/05/21 12:39 [From Cipro] hydromorphone HCl Allergy Anaphylaxis Verified 05/05/21 12:39 [From Dilaudid] Penicillins Allergy Rash/Hives Verified 05/05/21 12:39 clindamycin AdvReac Nausea & Verified 05/05/21 12:39 Vomiting sulfamethoxazole AdvReac Abdominal Verified 05/05/21 12:39 [From Bactrim] Pain trimethoprim [From Bactrim] AdvReac Abdominal Verified 05/05/21 12:39 Pain Review of Systems ROS Statement: Those systems with pertinent positive or pertinent negative responses have been documented in the HPI. ROS Other: All systems not noted in ROS Statement are negative. 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 History of Any Multi-Drug Resistant Organisms: None Reported Past Surgical History: Appendectomy, Back Surgery, Bladder Surgery, Breast Surgery, Cholecystectomy, Hysterectomy, Joint Replacement, Orthopedic Surgery, Tonsillectomy Additional Past Surgical History / Comment(s): 12/2020 PTBA with stent R brachial/cephalic artery, cervical fusion, lumbar laminectomy, R hip repair, bilateral thumbs/rods, R 3rd toe nathaniel, bilateral total knee arthroplasties, pain clinic procedures, R femur biopsy, D&Cs, bladder suspension, EGD, colonoscopies, L breast biopsy/axilary bx, bilateral cataract removals. Past Anesthesia/Blood Transfusion Reactions: No Reported Reaction Additional Past Anesthesia/Blood Transfusion Reaction / Comment(s): CLAUSTROPHOBIA Past Psychological History: Anxiety, Depression Smoking Status: Never smoker Past Alcohol Use History: None Reported Past Drug Use History: None Reported - Past Family History Father Family Medical History: Deep Vein Thrombosis (DVT), Pulmonary Embolus Additional Family Medical History / Comment(s): Father at age 32 from pulmonary embolism. Mother Family Medical History: Cancer Additional Family Medical History / Comment(s): breast Brother(s) Family Medical History: Cancer, CVA/TIA, Deep Vein Thrombosis (DVT), Myocardial Infarction ([place]), Pulmonary Embolus, Vascular Disorder Additional Family Medical History / Comment(s): 2 brothers that have passed one from myocardial infarction and one from pulmonary embolism. 2 brothers are alive and one has lung cancer, one brother is alive with a brain aneurysm and CVA. General Exam Limitations: no limitations Course Vital Signs 05/05/21 05/05/21 05/05/21 12:06 13:10 14:10 Temperature 98 F Pulse Rate 100 Respiratory 18 18 18 Rate Blood Pressure 111/62 O2 Sat by Pulse 100 Oximetry Medical Decision Making - Lab Data Result diagrams: 05/05/21 12:37 05/05/21 12:37 Lab Results 05/05/21 05/05/21 05/05/21 Range/Units 12:37 12:37 12:37 WBC 5.4 (3.8-10.6) k/uL RBC 2.75 L (3.80-5.40) m/uL Hgb 7.9 L (11.4-16.0) gm/dL Hct 23.7 L (34.0-46.0) % MCV 86.2 D (80.0-100.0) fL MCH 28.6 (25.0-35.0) pg MCHC 33.2 (31.0-37.0) g/dL RDW 18.6 H (11.5-15.5) % Plt Count 294 (150-450) k/uL MPV 7.1 Neutrophils % 55 % Lymphocytes % 16 % Monocytes % 24 % Eosinophils % 1 % Basophils % 0 % Neutrophils # 3.0 (1.3-7.7) k/uL Lymphocytes # 0.8 L (1.0-4.8) k/uL Monocytes # 1.3 H (0-1.0) k/uL Eosinophils # 0.1 (0-0.7) k/uL Basophils # 0.0 (0-0.2) k/uL Hypochromasia Moderate Poikilocytosis Slight Anisocytosis Slight PT 11.1 (9.0-12.0) sec INR 1.0 (<1.2) APTT 23.1 (22.0-30.0) sec Sodium 139 (137-145) mmol/L Potassium 3.1 L (3.5-5.1) mmol/L Chloride 107 (98-107) mmol/L Carbon Dioxide 27 (22-30) mmol/L Anion Gap 5 mmol/L BUN 4 L (7-17) mg/dL Creatinine 0.39 L (0.52-1.04) mg/dL Est GFR (CKD-EPI)AfAm >90 (>60 ml/min/1.73 sqM) Est GFR (CKD-EPI)NonAf >90 (>60 ml/min/1.73 sqM) Glucose 143 H (74-99) mg/dL Calcium 8.8 (8.4-10.2) mg/dL Magnesium (1.6-2.3) mg/dL 05/05/21 Range/Units 12:37 WBC (3.8-10.6) k/uL RBC (3.80-5.40) m/uL Hgb (11.4-16.0) gm/dL Hct (34.0-46.0) % MCV (80.0-100.0) fL MCH (25.0-35.0) pg MCHC (31.0-37.0) g/dL RDW (11.5-15.5) % Plt Count (150-450) k/uL MPV Neutrophils % % Lymphocytes % % Monocytes % % Eosinophils % % Basophils % % Neutrophils # (1.3-7.7) k/uL Lymphocytes # (1.0-4.8) k/uL Monocytes # (0-1.0) k/uL Eosinophils # (0-0.7) k/uL Basophils # (0-0.2) k/uL Hypochromasia Poikilocytosis Anisocytosis PT (9.0-12.0) sec INR (<1.2) APTT (22.0-30.0) sec Sodium (137-145) mmol/L Potassium (3.5-5.1) mmol/L Chloride (98-107) mmol/L Carbon Dioxide (22-30) mmol/L Anion Gap mmol/L BUN (7-17) mg/dL Creatinine (0.52-1.04) mg/dL Est GFR (CKD-EPI)AfAm (>60 ml/min/1.73 sqM) Est GFR (CKD-EPI)NonAf (>60 ml/min/1.73 sqM) Glucose (74-99) mg/dL Calcium (8.4-10.2) mg/dL Magnesium 1.9 (1.6-2.3) mg/dL Disposition Clinical Impression: Fall Disposition: HOME SELF-CARE Condition: Good Instructions (If sedation given, give patient instructions): Fall Prevention for Older Adults (ED) Additional Instructions: Follow-up with cardiology for mildly prolonged QT. Please notify rehab staff if you begin having palpitations. Is patient prescribed a controlled substance at d/c from ED?: No Referrals: Alvarez Rocha DO [Primary Care Provider] - 1-2 days
[2021-05-05 13:05] LABS: Anisocytosis Slight; Basophils % (A) 0 %; Eosinophils # (A) 0.1 k/uL (0-0.7); Eosinophils % (A) 1 %; HCT 23.7 % (34.0-46.0); HGB 7.9 gm/dL (11.4-16.0); Hypochromasia Moderate; Lymphocytes # (A) 0.8 k/uL (1.0-4.8); Lymphocytes % (A) 16 %; MCH 28.6 pg (25.0-35.0); MCHC 33.2 g/dL (31.0-37.0); Mean Platelet Volume 7.1; Monocytes # (A) 1.3 k/uL (0-1.0); Monocytes % (A) 24 %; Neutrophils % (A) 55 %; Platelet Count 294 k/uL (150-450); Poikilocytosis Slight; RBC 2.75 m/uL (3.80-5.40); RDW 18.6 % (11.5-15.5); WBC 5.4 k/uL (3.8-10.6)
[2021-05-05 13:07] LABS: MCV 86.2 fL (80.0-100.0)
[2021-05-05 13:09] LABS: African American GFR (CKD) >90 (>60 ml/min/1.73 sqM); Anion Gap 5 mmol/L; Blood Urea Nitrogen 4 mg/dL (7-17); Calcium 8.8 mg/dL (8.4-10.2); Carbon Dioxide 27 mmol/L (22-30); Chloride 107 mmol/L (98-107); Glucose 143 mg/dL (74-99); Non-African American GFR(CKD) >90 (>60 ml/min/1.73 sqM); Potassium 3.1 mmol/L (3.5-5.1); Sodium 139 mmol/L (137-145)
[2021-05-05 13:15] LABS: Partial Thromboplastin Time 23.1 sec (22.0-30.0); Prothrombin Time 11.1 sec (9.0-12.0)
[2021-05-05] MEDS ORDERED: POTASSIUM CHLORIDE ER 20 MEQ TAB.ER PO STA (13:23)
--- NOTE | 2021-05-05 14:11 | CT ---
EXAMINATION TYPE: CT brain david wo con DATE OF EXAM: 05/05/2021 COMPARISON: 04/15/2021 HISTORY: Fall,right hip pain CT DLP: 1351.7 mGycm, Automated exposure control for dose reduction was used. CONTRAST: Patient injected with 0 mL of Isovue 300. CT of the brain is performed utilizing 3 mm thick sections through the posterior fossa and 3 mm thick sections through the remaining calvarium. Study is performed within 24 hours of arrival to the hospital. No abnormal hyperdensity is present to suggest an acute intracranial hemorrhage. No mass lesion is evident. No acute infarcts are evident. Interval lacunar infarct within the right cerebellum may be present. Ventricles and sulci are appropriate for the patient age. Paranasal sinuses and mastoid air cells within the [id number] are clear. IMPRESSIONS: 1. Old lacunar infarct right cerebellum. CT cervical spine. COMPARISON: None CT of the cervical spine is performed in the axial plane at 2 mm thick sections. Reconstructed image s in the coronal, and sagittal plane are reviewed on the computer. No acute fractures are evident. Vertebral body alignment is straightened There is cervical fusion C3-C7. There is loss of disc height throughout the cervical spine. Vertebral body heights are preserved. No spinal canal stenosis is evident. Foraminal narrowing is present at C2-3 due to uncovertebral joint hypertrophy severe left foraminal s tenosis C3-4 is present. . IMPRESSIONS: 1. Cervical fusion
--- NOTE | 2021-05-05 15:10 | XR ---
Right knee HISTORY: Trauma and pain 4 views the right knee correlated to prior exam dated 02/14/2021 Patient is status post right knee arthroplasty. There is anatomic alignment. Suprapatellar increased density may be indicative of joint effusion. There are small calcifications about the knee similar to prior exam, calcifications adjacent to the medial aspect of the proximal tibia on the frontal view n ot seen previously possibly due to differences in obliquity, small chip fracture not suspected. Bone mineralization is reduced. IMPRESSION: No acute fracture or dislocation is suspected.
--- NOTE | 2021-05-05 15:11 | XR ---
Right ankle HISTORY: Trauma and pain 3 views the right ankle Bone mineralization is reduced. There is only mild soft tissue swelling. Joint spaces and alignment a re maintained. There is a plantar calcaneal spur present. IMPRESSION: No acute fracture or dislocation is evident.
--- NOTE | 2021-05-05 15:14 | XR ---
EXAMINATION TYPE: XR chest 1V DATE OF EXAM: 05/05/2021 COMPARISON: Chest x-ray 04/15/2021 HISTORY: Fall, trauma and pain TECHNIQUE: Single frontal view of the chest is obtained. FINDINGS: There is no focal air space opacity, pleural effusion, or pneumothorax seen. The cardiac silhouette size is stable. There are overlying artifacts, there is a right-sided stent in place. Righ t-sided PICC line is thought to be present which is a redundant course in the axillary vein region, d istal tip is not well seen. Apical pleural thickening is again noted on the right, postop change note d to the right shoulder. Right hemidiaphragm remains elevated. The osseous structures are intact. IMPRESSION: No acute process. Additional findings above.
--- NOTE | 2021-05-05 16:01 | XR ---
EXAMINATION TYPE: XR Hip RT and AP Pelvis DATE OF EXAM: 05/05/2021 COMPARISON: Prior exam 02/27/2021 HISTORY: Hip pain, fall, trauma TECHNIQUE: A single AP view of the pelvis is obtained. Two views of the right hip are obtained. FINDINGS: There is no acute fracture/dislocation evident in the pelvis. The hip and sacroiliac join ts appear symmetric and unremarkable. The overlying soft tissue appears unremarkable. Two views of right hip show no acute fracture or dislocation. No focal lytic or sclerotic lesion see n in the proximal right femur. The overlying soft tissue is unremarkable. Postop change status post open reduction internal fixation right hip again noted, postop change noted in the lower lumbar spin e. Bone mineralization is reduced. IMPRESSION: There is no acute fracture or dislocation in the pelvis or right hip. There is motion on the exam. Bone mineralization is reduced.
[2021-05-05] MEDS ORDERED: HYDROcodone/APAP 10-325MG 1 EACH TAB PO ONE (16:12)
[2021-05-05 17:51] VITALS: BP 117/74; PULSE 104
== END 2021-05-05 18:53 | disposition home or self-care (01) ==
LOC: EC 11:49
DX: M25.551 Pain in right hip (principal); E11.36 Type 2 diabetes mellitus with diabetic cataract; I10 Essential (primary) hypertension; E03.9 Hypothyroidism, unspecified; E78.5 Hyperlipidemia, unspecified; F41.9 Anxiety disorder, unspecified; F32.9 Major depressive disorder, single episode, unspecified; K21.9 Gastro-esophageal reflux disease without esophagitis; M10.9 Gout, unspecified; M19.90 Unspecified osteoarthritis, unspecified site; Z79.01 Long term (current) use of anticoagulants; Z79.02 Long term (current) use of antithrombotics/antiplatelets; Z79.4 Long term (current) use of insulin; Z79.890 Hormone replacement therapy; Z79.899 Other long term (current) drug therapy; Z86.718 Personal history of other venous thrombosis and embolism; Z86.711 Personal history of pulmonary embolism; Z86.73 Personal history of transient ischemic attack (TIA), and cerebral infarction without residual deficits; Z88.1 Allergy status to other antibiotic agents; Z88.0 Allergy status to penicillin; Z88.2 Allergy status to sulfonamides; Z88.5 Allergy status to narcotic agent; Z90.49 Acquired absence of other specified parts of digestive tract; Z96.653 Presence of artificial knee joint, bilateral; Z98.1 Arthrodesis status; Z80.1 Family history of malignant neoplasm of trachea, bronchus and lung; Z82.49 Family history of ischemic heart disease and other diseases of the circulatory system; W01.0XXA Fall on same level from slipping, tripping and stumbling without subsequent striking against object, initial encounter
CPT/HCPCS: 36415; 70450; 71045; 72125; 73502; 80048; 83735; 85025; 85610; 85730; 93005; 99285

== ENCOUNTER 2021-05-07 18:48 | Inpatient (IN) | payer MEDICARE, OTHER ==
[2021-05-07] MEDS ORDERED: ACETAMINOPHEN TAB 500 MG TAB PO STA (18:56)
[2021-05-07] MEDS ORDERED: IBUPROFEN 600 MG TAB PO STA (18:56)
--- NOTE | 2021-05-07 19:28 | ED ---
General Adult HPI - General Chief complaint: Extremity Injury, Lower Stated complaint: Broken Leg Time Seen by Provider: 05/07/21 19:00 Source: patient, EMS, RN notes reviewed, old records reviewed Mode of arrival: EMS Limitations: altered mental status - History of Present Illness Initial comments: This is a 81-year-old female who resides at a nursing facility. Patient comes in today because her right hip is still hurting her and she is unable to am bulate. Patient states she was here couple days ago after she had fallen and they did x-rays and they could not find anything wrong but she's been unable to ambulate. Patient also has been told she has urinary tract infection she arrives with a low-grade fever. Patient is a poor historian all of her history comes from EMS from the halfway. - Related Data Home Medications Medication Instructions Recorded Confirmed Calcium Carb-Vit D 500Mg-5Mcg 1 tab PO DAILY@89901/05/14 05/07/21 [Oscal 500+D 5 Mcg (200 Iu)] allopurinoL [Zyloprim] 100 mg PO DAILY@89901/05/14 05/07/21 Levothyroxine Sodium [Synthroid] 12.5 mcg PO HS@209903/16/14 05/07/21 Ipratropium [place] 0.06%Nasal 2 spr EA NOSTRIL BID@899,209907/03/20 05/07/21 [Atrovent Nasal 0.06%] DULoxetine HCL [Cymbalta] 60 mg PO HS@209912/17/20 05/07/21 Estradiol Cream [Estrace Cream 1 gm VAGINAL SUTH@209912/17/20 05/07/21 0.01%] Atorvastatin [Lipitor] 40 mg PO HS@209912/27/20 05/07/21 Loperamide [Imodium] 2 mg PO Q8H PRN 12/30/20 05/07/21 Psyllium Husk (with Sugar) 6 gm PO BID@899,209902/13/21 05/07/21 [Metamucil Powder] DULoxetine HCL [Cymbalta] 30 mg PO HS@209902/28/21 05/07/21 Acetaminophen Tab [Tylenol] 650 mg PO Q4H PRN 03/29/21 05/07/21 Clopidogrel [Plavix] 75 mg PO HS@2099 03/29/21 05/07/21 Insulin Lispro [humaLOG Kwikpen] See Protocol SQ ACHS 03/29/21 05/07/21 Linagliptin [Tradjenta] 5 mg PO DAILY@0900 03/29/21 05/07/21 rOPINIRole HCL [Requip] 4 mg PO HS@2100 03/29/21 05/07/21 Mag Hydrox/Aluminum Hyd/Simeth 10 ml PO Q4H PRN 04/15/21 05/07/21 [Mylanta Maximum Strength Liq] Midodrine [ProAmatine] 10 mg PO TID@0700,1100,1600 04/15/21 05/07/21 Omeprazole 20 mg PO DAILY PRN 04/15/21 05/07/21 Trihexyphenidyl [Artane] 1 mg PO DAILY@0900 04/15/21 05/07/21 Amiodarone [Cordarone] 200 mg PO DAILY@0900 04/27/21 05/07/21 Ferrous Sulfate [Iron (65 MG 325 mg PO BID@0900,209905/05/21 05/07/21 Elemental)] Loratadine [Claritin] 10 mg PO DAILY PRN 05/05/21 05/07/21 metFORMIN HCL [Glucophage XR] 1,000 mg PO DAILY@0900 05/05/21 05/07/21 Cyclobenzaprine [Flexeril] 10 mg PO HS@2100 05/07/21 05/07/21 Metoprolol Tartrate [Lopressor] 25 mg PO BID@0900,2100 05/07/21 05/07/21 Previous Rx's Medication Instructions Recorded Apixaban [Eliquis] 5 mg PO BID #60 tab 05/09/21 Gabapentin 600 mg PO TID@0600,1400,2200 #9 tab 05/09/21 HYDROcodone/APAP 10-325MG [[place] 1 each PO TID #9 tab 05/09/21 10-325] HYDROcodone/APAP 10-325MG [[place] 1 tab PO Q6H PRN #12 tab 05/09/21 10-325] Nitrofurantoin Monohyd/M-Cryst 100 mg PO BID #20 cap 05/09/21 [Macrobid] Temazepam [Restoril] 15 mg PO HS@2100 #3 cap 05/09/21 Allergies Allergy/AdvReac Type Severity Reaction Status Date / Time adhesive Allergy red skin, Verified 05/07/21 22:41 blisters cefaclor [From Ceclor] Allergy Rash/Hives Verified 05/07/21 22:41 ciprofloxacin [From Cipro] Allergy Rash/Hives Verified 05/07/21 22:41 ciprofloxacin HCl Allergy Rash/Hives Verified 05/07/21 22:41 [From Cipro] hydromorphone HCl Allergy Anaphylaxis Verified 05/07/21 22:41 [From Dilaudid] Penicillins Allergy Rash/Hives Verified 05/07/21 22:41 clindamycin AdvReac Nausea & Verified 05/07/21 22:41 Vomiting sulfamethoxazole AdvReac Abdominal Verified 05/07/21 22:41 [From Bactrim] Pain trimethoprim [From Bactrim] AdvReac Abdominal Verified 05/07/21 22:41 Pain Review of Systems ROS Statement: Those systems with pertinent positive or pertinent negative responses have been documented in the HPI. ROS Other: All systems not noted in ROS Statement are negative. 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 History of Any Multi-Drug Resistant Organisms: None Reported Past Surgical History: Appendectomy, Back Surgery, Bladder Surgery, Breast Surgery, Cholecystectomy, Hysterectomy, Joint Replacement, Orthopedic Surgery, Tonsillectomy Additional Past Surgical History / Comment(s): 12/2020 PTBA with stent R brachial/cephalic artery, cervical fusion, lumbar laminectomy, R hip repair, bilateral thumbs/rods, R 3rd toe nathaniel, bilateral total knee arthroplasties, pain clinic procedures, R femur biopsy, D&Cs, bladder suspension, EGD, colonoscopies, L breast biopsy/axilary bx, bilateral cataract removals. Past Anesthesia/Blood Transfusion Reactions: No Reported Reaction Additional Past Anesthesia/Blood Transfusion Reaction / Comment(s): CLAUSTROPHOBIA Past Psychological History: Anxiety, Depression Smoking Status: Never smoker Past Alcohol Use History: None Reported Past Drug Use History: None Reported - Past Family History Father Family Medical History: Deep Vein Thrombosis (DVT), Pulmonary Embolus Additional Family Medical History / Comment(s): Father at age 32 from pulmonary embolism. Mother Family Medical History: Cancer Additional Family Medical History / Comment(s): breast Brother(s) Family Medical History: Cancer, CVA/TIA, Deep Vein Thrombosis (DVT), Myocardial Infarction ([place]), Pulmonary Embolus, Vascular Disorder Additional Family Medical History / Comment(s): 2 brothers that have passed one from myocardial infarction and one from pulmonary embolism. 2 brothers are alive and one has lung cancer, one brother is alive with a brain aneurysm and CVA. General Exam - General Exam Comments Initial Comments: GENERAL: Patient is well-developed and well-nourished. Patient is nontoxic and well- hydrated and is in mild distress. ENT: Neck is soft and supple. No significant lymphadenopathy is noted. Oropharynx is clear. Moist mucous membranes. Neck has full range of motion without eliciting any pain. EYES: The sclera were anicteric and conjunctiva were pink and moist. Extraocular movements were intact and pupils were equal round and reactive to light. Eyelids were unremarkable. PULMONARY: Unlabored respirations. Good breath sounds bilaterally. No audible rales rhonchi or wheezing was noted. CARDIOVASCULAR: There is a regular rate and rhythm without any murmurs gallops or rubs. ABDOMEN: Soft and nontender with normal bowel sounds. SKIN: Skin is clear with no lesions or rashes and otherwise unremarkable. NEUROLOGIC: Patient is alert and oriented 2. Cranial nerves II through XII are grossly intact. Motor and sensory are also intact. Normal speech, volume and content. Symmetrical smile. MUSCULOSKELETAL: Patient has pain with flexion of the right hip as well as external rotation. Patient also has pain at the lateral aspect of the right hip. LYMPHATICS: No significant lymphadenopathy is noted PSYCHIATRIC: Normal psychiatric evaluation. Limitations: altered mental status Course Vital Signs 05/07/21 05/07/21 05/08/21 19:02 21:47 00:38 Temperature 100.3 F H Pulse Rate 85 106 H 99 Respiratory 18 18 16 Rate Blood Pressure 113/67 135/80 119/97 O2 Sat by Pulse 86 L 98 97 Oximetry 05/08/21 05/08/21 05/08/21 01:03 07:38 09:00 Temperature 98.4 F 98.6 F Pulse Rate 100 101 H Respiratory 18 18 Rate Blood Pressure 119/70 119/70 O2 Sat by Pulse 97 99 Oximetry 05/08/21 05/08/21 05/08/21 10:00 11:00 12:26 Temperature 98.4 F Pulse Rate 106 H 105 H 108 H Respiratory 19 18 22 Rate Blood Pressure 119/70 119/70 133/70 O2 Sat by Pulse 100 100 96 Oximetry Medical Decision Making - Medical Decision Making Dr. Taryn miranda taking over the care of this patient at 9 PM - Lab Data Result diagrams: 05/07/21 20:35 05/07/21 20:35 Lab Results 05/07/21 05/07/21 05/07/21 Range/Units 20:35 20:35 20:35 WBC 9.1 (3.8-10.6) k/uL RBC 3.13 L (3.80-5.40) m/uL Hgb 8.7 L (11.4-16.0) gm/dL Hct 26.9 L (34.0-46.0) % MCV 86.2 (80.0-100.0) fL MCH 28.0 (25.0-35.0) pg MCHC 32.5 (31.0-37.0) g/dL RDW 18.7 H (11.5-15.5) % Plt Count 310 (150-450) k/uL MPV 7.1 Neutrophils % 63 % Lymphocytes % 11 % Monocytes % 21 % Eosinophils % 2 % Basophils % 0 % Neutrophils # 5.7 (1.3-7.7) k/uL Lymphocytes # 1.0 (1.0-4.8) k/uL Monocytes # 1.9 H (0-1.0) k/uL Eosinophils # 0.2 (0-0.7) k/uL Basophils # 0.0 (0-0.2) k/uL Hypochromasia Slight Poikilocytosis Slight Anisocytosis Slight PT 10.5 (9.0-12.0) sec INR 1.0 (<1.2) APTT 22.1 (22.0-30.0) sec Sodium 137 (137-145) mmol/L Potassium 4.1 (3.5-5.1) mmol/L Chloride 102 (98-107) mmol/L Carbon Dioxide 27 (22-30) mmol/L Anion Gap 8 mmol/L BUN 6 L (7-17) mg/dL Creatinine 0.45 L (0.52-1.04) mg/dL Est GFR (CKD-EPI)AfAm >90 (>60 ml/min/1.73 sqM) Est GFR (CKD-EPI)NonAf >90 (>60 ml/min/1.73 sqM) Glucose 128 H (74-99) mg/dL Plasma Lactic Acid Luis (0.7-2.0) mmol/L Calcium 9.1 (8.4-10.2) mg/dL Total Bilirubin 0.3 (0.2-1.3) mg/dL AST 22 (14-36) U/L ALT 9 (4-34) U/L Alkaline Phosphatase 92 (38-126) U/L Total Protein 5.3 L (6.3-8.2) g/dL Albumin 2.9 L (3.5-5.0) g/dL Coronavirus (PCR) (Not Detectd) 05/07/21 05/07/21 Range/Units 20:35 21:47 WBC (3.8-10.6) k/uL RBC (3.80-5.40) m/uL Hgb (11.4-16.0) gm/dL Hct (34.0-46.0) % MCV (80.0-100.0) fL MCH (25.0-35.0) pg MCHC (31.0-37.0) g/dL RDW (11.5-15.5) % Plt Count (150-450) k/uL MPV Neutrophils % % Lymphocytes % % Monocytes % % Eosinophils % % Basophils % % Neutrophils # (1.3-7.7) k/uL Lymphocytes # (1.0-4.8) k/uL Monocytes # (0-1.0) k/uL Eosinophils # (0-0.7) k/uL Basophils # (0-0.2) k/uL Hypochromasia Poikilocytosis Anisocytosis PT (9.0-12.0) sec INR (<1.2) APTT (22.0-30.0) sec Sodium (137-145) mmol/L Potassium (3.5-5.1) mmol/L Chloride (98-107) mmol/L Carbon Dioxide (22-30) mmol/L Anion Gap mmol/L BUN (7-17) mg/dL Creatinine (0.52-1.04) mg/dL Est GFR (CKD-EPI)AfAm (>60 ml/min/1.73 sqM) Est GFR (CKD-EPI)NonAf (>60 ml/min/1.73 sqM) Glucose (74-99) mg/dL Plasma Lactic Acid Luis 1.4 (0.7-2.0) mmol/L Calcium (8.4-10.2) mg/dL Total Bilirubin (0.2-1.3) mg/dL AST (14-36) U/L ALT (4-34) U/L Alkaline Phosphatase (38-126) U/L Total Protein (6.3-8.2) g/dL Albumin (3.5-5.0) g/dL Coronavirus (PCR) Not Detected (Not Detectd) Disposition Disposition: ADMITTED IP TO THIS HOSP Condition: Good
--- NOTE | 2021-05-07 20:31 | XR ---
EXAMINATION TYPE: XR femur RT DATE OF EXAM: 05/07/2021 COMPARISON: NONE HISTORY: Hip pain TECHNIQUE: 4 views FINDINGS: There is a plate with screws fixing an apparent old intertrochanteric fracture right femur. There is right knee prosthesis. I see no acute fracture nor dislocation. IMPRESSION: No acute abnormality of the right femur. No fracture.
--- NOTE | 2021-05-07 20:35 | XR ---
EXAMINATION TYPE: XR chest 1V portable DATE OF EXAM: 05/07/2021 COMPARISON: 05/05/2021 HISTORY: Fall. Pain. TECHNIQUE: Single view FINDINGS: Heart and mediastinum are normal. Lungs are clear. Diaphragm is normal. Bony thorax is inta ct. Thoracic aorta is atheromatous. IMPRESSION: No active cardiopulmonary disease. No change.
[2021-05-07] MEDS: SODIUM CHLORIDE 0.9% 500 ML 500 ML IV SCH ×2 (20:36→20:37)
[2021-05-07 21:04] LABS: ALT 9 U/L (4-34); AST 22 U/L (14-36); African American GFR (CKD) >90 (>60 ml/min/1.73 sqM); Albumin 2.9 g/dL (3.5-5.0); Alkaline Phosphatase 92 U/L (38-126); Anion Gap 8 mmol/L; Blood Urea Nitrogen 6 mg/dL (7-17); Calcium 9.1 mg/dL (8.4-10.2); Carbon Dioxide 27 mmol/L (22-30); Chloride 102 mmol/L (98-107); Glucose 128 mg/dL (74-99); Non-African American GFR(CKD) >90 (>60 ml/min/1.73 sqM); Partial Thromboplastin Time 22.1 sec (22.0-30.0); Potassium 4.1 mmol/L (3.5-5.1); Prothrombin Time 10.5 sec (9.0-12.0); Sodium 137 mmol/L (137-145); Total Bilirubin 0.3 mg/dL (0.2-1.3); Total Protein 5.3 g/dL (6.3-8.2)
[2021-05-07 21:10] LABS: Anisocytosis Slight; Basophils % (A) 0 %; Eosinophils # (A) 0.2 k/uL (0-0.7); Eosinophils % (A) 2 %; HCT 26.9 % (34.0-46.0); HGB 8.7 gm/dL (11.4-16.0); Hypochromasia Slight; Lymphocytes % (A) 11 %; MCHC 32.5 g/dL (31.0-37.0); MCV 86.2 fL (80.0-100.0); Mean Platelet Volume 7.1; Monocytes # (A) 1.9 k/uL (0-1.0); Monocytes % (A) 21 %; Neutrophils # (A) 5.7 k/uL (1.3-7.7); Neutrophils % (A) 63 %; Platelet Count 310 k/uL (150-450); Poikilocytosis Slight; RBC 3.13 m/uL (3.80-5.40); RDW 18.7 % (11.5-15.5); WBC 9.1 k/uL (3.8-10.6)
--- NOTE | 2021-05-07 21:29 | CT ---
EXAMINATION TYPE: CT brain wo con DATE OF EXAM: 05/07/2021 COMPARISON: 05/05/2021 HISTORY: AMS CT DLP: 1052.4 mGycm Automated exposure control for dose reduction was used. Ventricles have normal size. There is no mass effect nor midline shift. There is no sign of intracran ial hemorrhage. Calvarium is intact. Skull base is intact. There is mild atrophy. IMPRESSION: Cerebral atrophy. No acute intracranial abnormality. No change compared to recent exam.
--- NOTE | 2021-05-07 21:36 | CT ---
EXAMINATION TYPE: CT hip RT wo con DATE OF EXAM: 05/07/2021 COMPARISON: None HISTORY: pain CT DLP: 617.1 mGycm Automated exposure control for dose reduction was used. Images obtained from the mid ileum to the mid femur with no contrast. There is a right hip nailing fixing the intertrochanteric right femur. I see no acute fracture nor di slocation. The acetabulum is intact. Right sacroiliac joint is intact. There is minimal acetabular sp urring. The femoral head is intact. There is a 2 x 1 cm chip fracture of the greater trochanter of the right femur. There is no displacem ent. The subtrochanteric femur is intact. There is no evidence of a soft tissue mass. There is no pathologic fluid collection. IMPRESSION: Acute large nondisplaced chip fracture of the greater trochanter of the right femur. Old intertrochan teric fracture right femur. Fracture appears new compared to the CT scan of 04/27/2021
[2021-05-07] MEDS ORDERED: HYDROmorphone 0.5 MG/0.5 ML SYRINGE IVP PRN (23:30)
[2021-05-07] MEDS ORDERED: ONDANSETRON 4 MG/2 ML VIAL IVP PRN (23:30)
[2021-05-07] MEDS ORDERED: MORPHINE SULFATE 4 MG/ML SYRINGE IV PRN (23:30)
[2021-05-07] MEDS ORDERED: HYDROcodone/APAP 5-325MG 1 EACH TAB PO PRN (23:30)
[2021-05-07] MEDS ORDERED: ACETAMINOPHEN TAB 325 MG TAB PO PRN (23:30)
[2021-05-07] MEDS ORDERED: NALOXONE 0.4 MG/ML 1 ML VIAL IV PRN (23:30)
[2021-05-08] MEDS: HYDROcodone/APAP 5-325MG 1 EACH TAB PO PRN ×2 (00:36→08:35)
[2021-05-08 09:04] LABS: Appearance,Urine Cloudy (Clear); Bacteria,Urine Rare /hpf; Bilirubin,Urine Negative (Negative); Blood,Urine Small (Negative); Color,Urine Yellow; Glucose,Urine (UA) 3+ (Negative); Ketones,Urine Negative (Negative); Leukocyte Esterase,Urine Large (Negative); Mucus,Urine Rare /hpf; Nitrite,Urine Negative (Negative); Protein,Urine Trace (Negative); RBC,Urine 5 /hpf (0-5); Urobilinogen,Urine <2.0 mg/dL (<2.0); WBC,Urine >182 /hpf (0-5)
[2021-05-08] MEDS ORDERED: HYDROcodone/APAP 10-325MG 1 EACH TAB PO PRN (10:31)
[2021-05-08] MEDS ORDERED: LORATADINE 10 MG TAB PO PRN (10:43)
[2021-05-08] MEDS ORDERED: PANTOPRAZOLE 40 MG TABLET PO PRN (10:43)
[2021-05-08] MEDS ORDERED: ACETAMINOPHEN TAB 325 MG TAB PO PRN (10:43)
[2021-05-08] MEDS ORDERED: MAG HYDROX/AL HYDROX/SIMETH 30 ML CUP PO PRN (10:43)
[2021-05-08] MEDS ORDERED: LOPERAMIDE 2 MG CAP PO PRN (10:43)
[2021-05-08] MEDS ORDERED: HYDROmorphone 0.5 MG/0.5 ML SYRINGE IVP PRN ×2 (10:46→11:01)
--- NOTE | 2021-05-08 10:46 | P.CNOR ---
History of Present Illness - [facility] Consult date: 05/08/21 Consult reason: fracture (Right greater trochanteric femur fracture) History of present illness: Patient is a 81-year-old female who presents [facility] yesterday for further evaluation of right lower extremity pain. Patient admits to 2 recent falls, both landing on her right side. Patient currently staying at [facility] rehab. Patient has a very detailed medical history with multiple recent hospital admissions. Patient had undergone multiple x-rays on 05/05/2021 and [facility] for evaluation follow-up. No acute fractures were noted. Patient had another fall yesterday, and was brought back to the hospital for further evaluation. A computed tomography scan of the right hip was done which did demonstrate a minimally displaced right greater trochanteric femur fracture. Patient is being admitted under internal medicine for pain control, our orthopedic team was also consulted. Patient was evaluated today in the emergency room, her son was present with her. She does note discomfort in the right upper leg. She notices this mainly with movement and weightbearing. Patient states that she simply tripped and fell on both occasions. She has history of a previous intertrochanteric femur fracture on the right side, she had undergone a procedure by Dr. Costello, this was many years ago she cannot remove the exact year. Patient denies any acute pain involving the remaining right lower extremity. She denies any pain of the left lower extremity. She denies any bilateral upper extremity pain. She denies any new onset cervical, thoracic or lumbar pain. 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 History of Any Multi-Drug Resistant Organisms: None Reported Past Surgical History: Appendectomy, Back Surgery, Bladder Surgery, Breast Surgery, Cholecystectomy, Hysterectomy, Joint Replacement, Orthopedic Surgery, Tonsillectomy Additional Past Surgical History / Comment(s): 12/2020 PTBA with stent R brachial/cephalic artery, cervical fusion, lumbar laminectomy, R hip repair, bilateral thumbs/rods, R 3rd toe nathaniel, bilateral total knee arthroplasties, pain clinic procedures, R femur biopsy, D&Cs, bladder suspension, EGD, colonoscopies, L breast biopsy/axilary bx, bilateral cataract removals. Past Anesthesia/Blood Transfusion Reactions: No Reported Reaction Additional Past Anesthesia/Blood Transfusion Reaction / Comm: CLAUSTROPHOBIA Past Psychological History: Anxiety, Depression Smoking Status: Never smoker Past Alcohol Use History: None Reported Past Drug Use History: None Reported - Past Family History Father Family Medical History: Deep Vein Thrombosis (DVT), Pulmonary Embolus Additional Family Medical History / Comment(s): Father at age 32 from pulmonary embolism. Mother Family Medical History: Cancer Additional Family Medical History / Comment(s): breast Brother(s) Family Medical History: Cancer, CVA/TIA, Deep Vein Thrombosis (DVT), Myocardial Infarction ([place]), Pulmonary Embolus, Vascular Disorder Additional Family Medical History / Comment(s): 2 brothers that have passed one from myocardial infarction and one from pulmonary embolism. 2 brothers are alive and one has lung cancer, one brother is alive with a brain aneurysm and CVA. Medications and Allergies Home Medications Medication Instructions Recorded Confirmed Type Calcium Carb-Vit D 500Mg-5Mcg 1 tab PO DAILY@89901/05/14 05/07/21 History [Oscal 500+D 5 Mcg (200 Iu)] allopurinoL [Zyloprim] 100 mg PO DAILY@89901/05/14 05/07/21 History Levothyroxine Sodium [Synthroid] 12.5 mcg PO HS@209903/16/14 05/07/21 History Ipratropium [place] 0.06%Nasal 2 spr EA NOSTRIL BID@07/03/20 05/07/21 History [Atrovent Nasal 0.06%] DULoxetine HCL [Cymbalta] 60 mg PO HS@209912/17/20 05/07/21 History Estradiol Cream [Estrace Cream 1 gm VAGINAL SUTH@209912/17/20 05/07/21 History 0.01%] Atorvastatin [Lipitor] 40 mg PO HS@209912/27/20 05/07/21 History Loperamide [Imodium] 2 mg PO Q8H PRN 12/30/20 05/07/21 History Psyllium Husk (with Sugar) 6 gm PO BID@0900,209902/13/21 05/07/21 History [Metamucil Powder] DULoxetine HCL [Cymbalta] 30 mg PO HS@209902/28/21 05/07/21 History Acetaminophen Tab [Tylenol] 650 mg PO Q4H PRN 03/29/21 05/07/21 History Clopidogrel [Plavix] 75 mg PO HS@209903/29/21 05/07/21 History Insulin Lispro [humaLOG Kwikpen] See Protocol SQ ACHS 03/29/21 05/07/21 History Linagliptin [Tradjenta] 5 mg PO DAILY@89903/29/21 05/07/21 History rOPINIRole HCL [Requip] 4 mg PO HS@209903/29/21 05/07/21 History Mag Hydrox/Aluminum Hyd/Simeth 10 ml PO Q4H PRN 04/15/21 05/07/21 History [Mylanta Maximum Strength Liq] Midodrine [ProAmatine] 10 mg PO TID@0700,1100,1600 04/15/21 05/07/21 History Omeprazole 20 mg PO DAILY PRN 04/15/21 05/07/21 History Trihexyphenidyl [Artane] 1 mg PO DAILY@0900 04/15/21 05/07/21 History Gabapentin 600 mg PO TID@0600,1400,2200 #9 tab 04/23/21 05/07/21 Rx HYDROcodone/APAP 10-325MG [[place] 1 tab PO BID PRN #6 tab 04/23/21 05/07/21 Rx 10-325] Amiodarone [Cordarone] 200 mg PO DAILY@0900 04/27/21 05/07/21 History Nitrofurantoin Monohyd/M-Cryst 100 mg PO DAILY@0900 04/27/21 05/07/21 History [Macrobid] Temazepam [Restoril] 15 mg PO HS@209904/27/21 05/07/21 History Ferrous Sulfate [Feosol] 325 mg PO BID@0900,2100 05/05/21 05/07/21 History Loratadine [Claritin] 10 mg PO DAILY PRN 05/05/21 05/07/21 History metFORMIN HCL [Glucophage XR] 1,000 mg PO DAILY@0900 05/05/21 05/07/21 History Cyclobenzaprine [Flexeril] 10 mg PO HS@209905/07/21 05/07/21 History Metoprolol Tartrate [Lopressor] 25 mg PO BID@0900,209905/07/21 05/07/21 History Allergies Allergy/AdvReac Type Severity Reaction Status Date / Time adhesive Allergy red skin, Verified 05/07/21 22:41 blisters cefaclor [From Ceclor] Allergy Rash/Hives Verified 05/07/21 22:41 ciprofloxacin [From Cipro] Allergy Rash/Hives Verified 05/07/21 22:41 ciprofloxacin HCl Allergy Rash/Hives Verified 05/07/21 22:41 [From Cipro] hydromorphone HCl Allergy Anaphylaxis Verified 05/07/21 22:41 [From Dilaudid] Penicillins Allergy Rash/Hives Verified 05/07/21 22:41 clindamycin AdvReac Nausea & Verified 05/07/21 22:41 Vomiting sulfamethoxazole AdvReac Abdominal Verified 05/07/21 22:41 [From Bactrim] Pain trimethoprim [From Bactrim] AdvReac Abdominal Verified 05/07/21 22:41 Pain Physical Examination Right lower extremity: No obvious open lesions or sores are present throughout the extremity. Well- healed incision over the lateral aspects of the right proximal femur, well- healed incision over the anterior aspect of the knee. Obvious tenderness with palpation of the greater trochanteric region. No significant tenderness appreciated throughout the lower aspect of the femur, knee, lower leg, foot or ankle Logroll maneuver of the extremity reproduces slight discomfort in the greater trochanteric region. Range of motion of the knee demonstrates no significant tenderness. Patient does note discomfort with straight leg raise. Plantar flexion, dorsiflexion, EHL, FHL are intact. Generalized weakness is appreciated in the right lower extremity due to her medical stay Calf is soft, no tenderness with palpation Sensory exam to light touch is intact throughout the extremity, dorsalis pedis pulses 2+ Results - Labs Labs: Abnormal Lab Results - Last 24 Hours (Table) 05/07/21 05/07/21 05/08/21 Range/Units 20:35 20:35 08:45 RBC 3.13 L (3.80-5.40) m/uL Hgb 8.7 L (11.4-16.0) gm/dL Hct 26.9 L (34.0-46.0) % RDW 18.7 H (11.5-15.5) % Monocytes # 1.9 H (0-1.0) k/uL BUN 6 L (7-17) mg/dL Creatinine 0.45 L (0.52-1.04) mg/dL Glucose 128 H (74-99) mg/dL Total Protein 5.3 L (6.3-8.2) g/dL Albumin 2.9 L (3.5-5.0) g/dL Urine Appearance Cloudy H (Clear) Urine Protein Trace H (Negative) Urine Glucose (UA) 3+ H (Negative) Urine Blood Small H (Negative) Ur Leukocyte Esterase Large H (Negative) Urine WBC >182 H (0-5) /hpf Urine Bacteria Rare H (None) /hpf Urine Mucus Rare H (None) /hpf H & H 05/07/21 Range/Units 20:35 Hgb 8.7 L (11.4-16.0) gm/dL Hct 26.9 L (34.0-46.0) % Coagulation 05/07/21 Range/Units 20:35 INR 1.0 (<1.2) Result Diagrams: 05/07/21 20:35 05/07/21 20:35 - Diagnostic results Hip CT: report reviewed, image reviewed (Initial x-rays were reviewed of the right femur demonstrate no acute fractures or dislocations. The plate was compression screw surrounding the right hip is in good position and condition. Computed tomography scan did demonstrate a minimally displaced right greater trochanteric femur fracture.) Assessment and Plan Assessment: Minimally displaced right greater trochanteric femur fracture Previous right intertrochanteric femur fracture, status post ORIF, stable appearing components Multiple medical comorbidities Plan: I was able to discuss the case, including both physical exam findings and imaging studies by attending Dr. Plummer. No orthopedic surgical interventi on recommended at this time Recommended conservative management at this time. Restart home medications, this including her pain medication regimen. PT/OT evaluation Weightbearing status: Recommend weight-bear as tolerated with walker, patient will likely utilize toe-touch initially due to the discomfort We discussed basic gentle range of motion excised work on a bed to help keep strength in the right lower extremity GI and DVT prophylaxis per primary medical service Medical recommendations Discharge planning: On an orthopedic standpoint, she is stable. Once pain is better controlled I see no issues being discharged back to subacute rehab. Plan will be to follow-up with Dr. Plummer in the outpatient setting for x-ray evaluation in the next 2-3 weeks, we'll be available to monitor the patient during inpatient stay. Please contact us at any questions Time with Patient: Less than 30
[2021-05-08] MEDS: HYDROcodone/APAP 10-325MG 1 EACH TAB PO SCH ×3 (11:05→23:27)
[2021-05-08] MEDS: MIDODRINE 5 MG TAB PO SCH ×2 (11:09→14:59)
[2021-05-08] MEDS: GABAPENTIN 300 MG CAP PO SCH ×2 (13:16→23:25)
--- NOTE | 2021-05-08 13:16 | P.HPIM ---
History of Present Illness H&P Date: 05/08/21 HISTORY OF PRESENT ILLNESS 81-year-old female with multiple medical problem who was one of Dr. Rocha patient is known to have factor V Leiden Yoshi deficiency, type 2 diabetes, non- Hodgkin's lymphoma, severe compression and bulging disc involving 3 lumbar spine vertebrae which patient has been seen Dr. Nathan and had surgical intervention in the past. Patient had severe abnormal mobility balance and gait ended up in the retirement rehab for a few weeks every time she is hospitalized. Patient was hospitalized at [facility] 03/29/2021 because of hypoxia and aspiration pneumonia and decided the best option course to have patient go to [facility] [place] [facility]. Patient has been there for the last few days she developed to have worsening symptoms with fever, chills, altered mental status and was admitted to the hospital for recurrent urinary tract infection and sepsis. She was discharged back to [facility] to complete course of Azactam and Macrobid, Flagyl. Patient was directed for these antibiotics by Dr. Lee. She has subsequently been changed to Macrobid 100 mg daily for prophylaxis. Patient states that she continues to have some weakness and had a fall in the bathroom or she lost her balance. She then had another fall when she was getting up out of bed alone. She was sent into [facility] emergency center for evaluation. Right femur x-ray revealed no acute abnormality. Chest x-ray shows no acute cardio pulmonary disease. CAT scan of the brain reveals cervical atrophy. No acute intracranial abnormality. No change. CAT scan of the hip revealed acute large nondisplaced chip fracture of the greater trochanteric Patient has been seen by orthopedics and recommend protective weightbearing on the right lower extremity with assistance, PT and OT. We have increased patient's [place] and will plan is monitor overnight and return to [facility] tomorrow REVIEW OF SYSTEMS Constitutional: No fever, no chills, no night sweats. No weight change. denies fatigue. Denies EENT: No headache. No blurred vision or double vision, no loss of vision. No loss of Hearing, no ringing in the ears, no dizziness. No nasal drainage or congestion. No epistaxis. No sore throat. Lungs: Denies shortness of breath. Denies cough. Denies wheezing. Cardiovascular: No chest pain or angina continue to have mild arrhythmia on and off mild PND and shortness of breath with exertion.. Abdominal: No abdominal pain. No nausea, vomiting. No diarrhea. No constipation. No bloody or tarry stools.. No loss of appetite. 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 Musculoskeletal: No myalgias. No muscle weakness, no gait dysfunction, no frequent falls. No back pain. No neck pain. Reports right hip pain. Integumentary: No wounds, no lesions. No rash or pruritus. No unusual bruising. No change in hair or nails. Neurologic: No aphasia. No facial droop. No change in mentation. No head injury. No headache. No paralysis. No paresthesia. Psychiatric: No depression. No anxiety. No mood swings. Endocrine: No abnormal blood sugars. No weight change. No excessive sweating or thirst. No cold intolerance. SOCIAL HISTORY Patient does not smoke does not use marijuana she lives alone with her g randdaughter check ambulate with no help. FAMILY HISTORY [Her mother dying her late 80 from breast cancer dementia, father age 32 from pulmonary embolism, patient had 2 brothers 1 past from the cardiac infarction and one from pulmonary embolism. She still have 2 living brother one had lung cancer and one living with brother with brain aneurysm. Patient had 5 biological children with no major medical problem. PHYSICAL EXAMINATION Gen: This is a 81-year-old female. She is resting of the ER stretcher and appears to be comfortable at rest. HEENT: Head is atraumatic, normocephalic. Pupils equal, round. NECK: Supple. No JVD. No lymphadenopathy. No thyromegaly. LUNGS: Decreased breath some bilaterally with fine rhonchi. HEART: Irregular rate and rhythm. No murmur. ABDOMEN: Soft. Bowel sounds are present. No masses. No tenderness.. EXTREMITIES: No pedal edema. No calf tenderness. Mild tenderness to the right hip area NEUROLOGICAL: Patient is awake, alert and oriented x3. Cranial nerves 2 through 12 are grossly intact. ASSESSMENT AND PLAN 1. Fall with chip fracture of the right trochanteric. Patient has been evaluated by orthopedics, plan for protective weightbearing on the right lower extremity with assistance, PT and OT evaluations, increase [place] scheduled to 3 times daily and as needed 2. Recent hospitalization for metabolic encephalopathy from UTI, stable and mental status is at baseline. Continue Macrobid daily for prophylaxis. 3. Chronic pain syndrome: Has been on gabapentin and hydrocodone. 4. Hypothyroidism. Continue patient on levothyroxin 12.5 g daily. 5. Paroxysmal atrial fibrillation. Continue amiodarone 200 mg daily, Lopressor 25 mg twice daily. 6. 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 7. Diabetes mellitus type 2. Continue on Tradjenta and Humalog per sliding scales coverage and still on Metformin 500 mg daily. 8. Severe peripheral neuropathy: Remain on gabapentin. 9. Chronic back pain post surgery and pain management continue on hydrocodone and muscle relaxer. 10. Severe PAD with arterial thrombosis post subclavian surgery patient was kept on Eliquis and Plavix. 11. Chronic depression: Has been on Cymbalta 90 mg a day. 12. GI prophylaxis: Protonix 40 mg daily 13. DVT prophylaxis: Hold Eliquis. 14. COVID-19 testing was negative. Patient will be admitted to the hospital for a minimum of 2 night stay. DISCHARGE PLAN Return to [facility] on Wednesday Impression and plan of care have been directed as dictated by the signing physician. Karen Quintero nurse practitioner acting as scribe for signing physician. 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 History of Any Multi-Drug Resistant Organisms: None Reported Past Surgical History: Appendectomy, Back Surgery, Bladder Surgery, Breast Surgery, Cholecystectomy, Hysterectomy, Joint Replacement, Orthopedic Surgery, Tonsillectomy Additional Past Surgical History / Comment(s): 12/2020 PTBA with stent R brachial/cephalic artery, cervical fusion, lumbar laminectomy, R hip repair, bilateral thumbs/rods, R 3rd toe nathaniel, bilateral total knee arthroplasties, pain clinic procedures, R femur biopsy, D&Cs, bladder suspension, EGD, colonoscopies, L breast biopsy/axilary bx, bilateral cataract removals. Past Anesthesia/Blood Transfusion Reactions: No Reported Reaction Additional Past Anesthesia/Blood Transfusion Reaction / Comment(s): CLAUSTROPHOBIA Past Psychological History: Anxiety, Depression Smoking Status: Never smoker Past Alcohol Use History: None Reported Past Drug Use History: None Reported - Past Family History Father Family Medical History: Deep Vein Thrombosis (DVT), Pulmonary Embolus Additional Family Medical History / Comment(s): Father at age 32 from pulmonary embolism. Mother Family Medical History: Cancer Additional Family Medical History / Comment(s): breast Brother(s) Family Medical History: Cancer, CVA/TIA, Deep Vein Thrombosis (DVT), Myocardial Infarction ([place]), Pulmonary Embolus, Vascular Disorder Additional Family Medical History / Comment(s): 2 brothers that have passed one from myocardial infarction and one from pulmonary embolism. 2 brothers are alive and one has lung cancer, one brother is alive with a brain aneurysm and CVA. Medications and Allergies Home Medications Medication Instructions Recorded Confirmed Type Calcium Carb-Vit D 500Mg-5Mcg 1 tab PO DAILY@89901/05/14 05/07/21 History [Oscal 500+D 5 Mcg (200 Iu)] allopurinoL [Zyloprim] 100 mg PO DAILY@89901/05/14 05/07/21 History Levothyroxine Sodium [Synthroid] 12.5 mcg PO HS@209903/16/14 05/07/21 History Ipratropium [place] 0.06%Nasal 2 spr EA NOSTRIL BID@07/03/20 05/07/21 History [Atrovent Nasal 0.06%] DULoxetine HCL [Cymbalta] 60 mg PO HS@209912/17/20 05/07/21 History Estradiol Cream [Estrace Cream 1 gm VAGINAL SUTH@209912/17/20 05/07/21 History 0.01%] Atorvastatin [Lipitor] 40 mg PO HS@209912/27/20 05/07/21 History Loperamide [Imodium] 2 mg PO Q8H PRN 12/30/20 05/07/21 History Psyllium Husk (with Sugar) 6 gm PO BID@0900,209902/13/21 05/07/21 History [Metamucil Powder] DULoxetine HCL [Cymbalta] 30 mg PO HS@209902/28/21 05/07/21 History Acetaminophen Tab [Tylenol] 650 mg PO Q4H PRN 03/29/21 05/07/21 History Clopidogrel [Plavix] 75 mg PO HS@209903/29/21 05/07/21 History Insulin Lispro [humaLOG Kwikpen] See Protocol SQ ACHS 03/29/21 05/07/21 History Linagliptin [Tradjenta] 5 mg PO DAILY@0900 03/29/21 05/07/21 History rOPINIRole HCL [Requip] 4 mg PO HS@209903/29/21 05/07/21 History Mag Hydrox/Aluminum Hyd/Simeth 10 ml PO Q4H PRN 04/15/21 05/07/21 History [Mylanta Maximum Strength Liq] Midodrine [ProAmatine] 10 mg PO TID@0700,1100,1600 04/15/21 05/07/21 History Omeprazole 20 mg PO DAILY PRN 04/15/21 05/07/21 History Trihexyphenidyl [Artane] 1 mg PO DAILY@0900 04/15/21 05/07/21 History Gabapentin 600 mg PO TID@0600,1400,2200 #9 tab 04/23/21 05/07/21 Rx HYDROcodone/APAP 10-325MG [[place] 1 tab PO BID PRN #6 tab 04/23/21 05/07/21 Rx 10-325] Amiodarone [Cordarone] 200 mg PO DAILY@0900 04/27/21 05/07/21 History Nitrofurantoin Monohyd/M-Cryst 100 mg PO DAILY@0900 04/27/21 05/07/21 History [Macrobid] Temazepam [Restoril] 15 mg PO HS@209904/27/21 05/07/21 History Ferrous Sulfate [Feosol] 325 mg PO BID@0900,2100 05/05/21 05/07/21 History Loratadine [Claritin] 10 mg PO DAILY PRN 05/05/21 05/07/21 History metFORMIN HCL [Glucophage XR] 1,000 mg PO DAILY@0900 05/05/21 05/07/21 History Cyclobenzaprine [Flexeril] 10 mg PO HS@2100 05/07/21 05/07/21 History Metoprolol Tartrate [Lopressor] 25 mg PO BID@0900,2100 05/07/21 05/07/21 History Allergies Allergy/AdvReac Type Severity Reaction Status Date / Time adhesive Allergy red skin, Verified 05/07/21 22:41 blisters cefaclor [From Ceclor] Allergy Rash/Hives Verified 05/07/21 22:41 ciprofloxacin [From Cipro] Allergy Rash/Hives Verified 05/07/21 22:41 ciprofloxacin HCl Allergy Rash/Hives Verified 05/07/21 22:41 [From Cipro] hydromorphone HCl Allergy Anaphylaxis Verified 05/07/21 22:41 [From Dilaudid] Penicillins Allergy Rash/Hives Verified 05/07/21 22:41 clindamycin AdvReac Nausea & Verified 05/07/21 22:41 Vomiting sulfamethoxazole AdvReac Abdominal Verified 05/07/21 22:41 [From Bactrim] Pain trimethoprim [From Bactrim] AdvReac Abdominal Verified 05/07/21 22:41 Pain Physical Exam Vitals: Vital Signs Temp Pulse Resp BP Pulse Ox 05/08/21 10:00 106 H 19 119/70 100 05/08/21 09:00 101 H 18 119/70 99 05/08/21 07:38 98.6 F 100 18 119/70 97 05/08/21 01:03 98.4 F 05/08/21 00:38 99 16 119/97 97 05/07/21 21:47 106 H 18 135/80 98 05/07/21 19:02 100.3 F H 85 18 113/67 86 L Intake and Output 05/07/21 05/08/21 05/08/21 22:59 06:59 14:59 Other: Weight 90.718 kg Results CBC & Chem 7: 05/07/21 20:35 05/07/21 20:35 Labs: Abnormal Lab Results - Last 24 Hours (Table) 05/07/21 05/07/21 05/08/21 Range/Units 20:35 20:35 08:45 RBC 3.13 L (3.80-5.40) m/uL Hgb 8.7 L (11.4-16.0) gm/dL Hct 26.9 L (34.0-46.0) % RDW 18.7 H (11.5-15.5) % Monocytes # 1.9 H (0-1.0) k/uL BUN 6 L (7-17) mg/dL Creatinine 0.45 L (0.52-1.04) mg/dL Glucose 128 H (74-99) mg/dL Total Protein 5.3 L (6.3-8.2) g/dL Albumin 2.9 L (3.5-5.0) g/dL Urine Appearance Cloudy H (Clear) Urine Protein Trace H (Negative) Urine Glucose (UA) 3+ H (Negative) Urine Blood Small H (Negative) Ur Leukocyte Esterase Large H (Negative) Urine WBC >182 H (0-5) /hpf Urine Bacteria Rare H (None) /hpf Urine Mucus Rare H (None) /hpf
[2021-05-08] MEDS ORDERED: MORPHINE SULFATE 2 MG/ML SYRINGE IVP PRN (16:52)
[2021-05-08 17:03] LABS: Glucose,Whole Blood 160 mg/dL (75-99)
[2021-05-08] MEDS: INSULIN ASPART (NovoLOG) 100 UNIT/ML VIAL SQ SCH ×2 (17:14→23:38)
[2021-05-08 20:18] LABS: Glucose,Whole Blood 150 mg/dL (75-99)
[2021-05-08] MEDS ORDERED: LEVOTHYROXINE 25 MCG TAB PO SCH (21:00)
[2021-05-08] MEDS ORDERED: CYCLOBENZAPRINE 10 MG TAB PO SCH (21:00)
[2021-05-08] MEDS ORDERED: rOPINIRole HCL 4 MG TABLET PO SCH (21:00)
[2021-05-08] MEDS ORDERED: DULoxetine HCL 60 MG CAPSULE.DR PO SCH (21:00)
[2021-05-08] MEDS ORDERED: ATORVASTATIN 40 MG TAB PO SCH (21:00)
[2021-05-08] MEDS ORDERED: CLOPIDOGREL 75 MG TAB PO SCH (21:00)
[2021-05-08] MEDS ORDERED: TEMAZEPAM 15 MG CAP PO SCH (21:00)
[2021-05-08] MEDS ORDERED: DULoxetine HCL 30 MG CAPSULE.DR PO SCH (21:00)
[2021-05-08 22:35] LABS: Glucose,Whole Blood 120 mg/dL (75-99)
[2021-05-08] MEDS: IPRATROPIUM BROMIDE 0.06% NASAL SPRAY (15 ML) EA NOSTRIL SCH (23:25)
[2021-05-08] MEDS: METOPROLOL TARTRATE 25 MG TAB PO SCH (23:25)
[2021-05-08] MEDS: PSYLLIUM HUSK 100% 6 GM PACKET PO SCH (23:25)
[2021-05-08] MEDS: FERROUS SULFATE 325 MG TAB PO SCH (23:27)
[2021-05-09 05:07] VITALS: BP 147/65; PULSE 99; RESP 16; TEMP 98.1
[2021-05-09] MEDS: MIDODRINE 5 MG TAB PO SCH ×2 (06:10→11:08)
[2021-05-09] MEDS: GABAPENTIN 300 MG CAP PO SCH (06:12)
[2021-05-09 07:13] LABS: Glucose,Whole Blood 124 mg/dL (75-99)
[2021-05-09] MEDS: INSULIN ASPART (NovoLOG) 100 UNIT/ML VIAL SQ SCH (07:20)
[2021-05-09] MEDS: PSYLLIUM HUSK 100% 6 GM PACKET PO SCH (07:52)
[2021-05-09] MEDS: IPRATROPIUM BROMIDE 0.06% NASAL SPRAY (15 ML) EA NOSTRIL SCH (07:53)
[2021-05-09] MEDS: HYDROcodone/APAP 10-325MG 1 EACH TAB PO SCH (07:54)
[2021-05-09] MEDS: FERROUS SULFATE 325 MG TAB PO SCH (07:54)
[2021-05-09] MEDS: METOPROLOL TARTRATE 25 MG TAB PO SCH (07:55)
[2021-05-09] MEDS ORDERED: HYDROcodone/APAP 10-325MG 1 EACH TAB PO PRN (08:03)
--- NOTE | 2021-05-09 08:10 | P.DS ---
Providers Date of admission: 05/07/21 23:30 Expected date of discharge: 05/09/21 Attending physician: Veronica Avelar Consults: 05/07/21 23:47 Consult Physician Routine Consulting Provider: Claudio Plummer Consult Reason/Comments: greater trochanter fracture Do you want consulting provider notified?: Yes Primary care physician: Alvarez [facility] Course: HISTORY OF PRESENT ILLNESS 81-year-old female with multiple medical problem who was one of Dr. Rocha patient is known to have factor V Leiden Yoshi deficiency, type 2 diabetes, non-Hodgkin's lymphoma, severe compression and bulging disc involving 3 lumbar spine vertebrae which patient has been seen Dr. Nathan and had surgical intervention in the past. Patient had severe abnormal mobility balance and gait ended up in the correction rehab for a few weeks every time she is hospitalized. Patient was hospitalized at [facility] 03/29/2021 because of hypoxia and aspiration pneumonia and decided the best option course to have patient go to [facility] [place]. Patient has been there for the last few days she developed to have worsening symptoms with fever, chills, altered mental status and was admitted to the hospital for recurrent urinary tract infection and sepsis. She was discharged back to [facility] to complete course of Azactam and Macrobid, Flagyl. Patient was directed for these antibiotics by Dr. Lee. She has subsequently been changed to Macrobid 100 mg daily for prophylaxis. Patient states that she continues to have some weakness and had a fall in the bathroom or she lost her balance. She then had another fall when she was getting up out of bed alone. She was sent into [facility] emergency center for evaluation. Right femur x-ray revealed no acute abnormality. Chest x-ray shows no acute cardio pulmonary disease. CAT scan of the brain reveals cervical atrophy. No acute intracranial abnormality. No change. CAT scan of the hip revealed acute large nondisplaced chip fracture of the greater trochanteric Patient has been seen by orthopedics and recommend protective weightbearing on the right lower extremity with assistance, PT and OT. We have increased patient's [place] and will plan is monitor overnight and return to [facility] tomorrow 05/09: Patient has been afebrile, heart rate 99, blood pressure 147/65, pulse ox 97% on room air. Patient received 1 dose of morphine 1 mg last evening but otherwise taking [place] tens 3 times daily scheduled. Urinalysis revealed blood small, leukoesterase large, WBCs greater than 182, bacteria rare. Urine culture and Alyse was enterococcus faecium susceptible to gent, Zyvox, Macrodantin and vancomycin. Macrodantin will be increased to twice daily frequency and urine culture will need follow-up at the correction. Patient will be discharged back to [facility] today in stable condition. ASSESSMENT AND PLAN 1. Fall with chip fracture of the right trochanteric. Patient has been evaluated by orthopedics, plan for protective weightbearing on the right lower extremity with assistance. 2. Recent hospitalization for metabolic encephalopathy from UTI, stable and mental status is at baseline. 3. Chronic pain syndrome. 4. Hypothyroidism. 5. Paroxysmal atrial fibrillation. 6. 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 7. Diabetes mellitus type 2. 8. Severe peripheral neuropathy: 9. Chronic back pain post surgery and pain management continue on hydrocodone and muscle relaxer. 10. Severe PAD with arterial thrombosis post subclavian surgery patient was kept on Eliquis and Plavix. 11. Chronic depression 12. COVID-19 testing was negative. DISCHARGE PLAN Return to [facility] on Wednesday Impression and plan of care have been directed as dictated by the signing physician. aKren Quintero nurse practitioner acting as scribe for signing physician. Patient Condition at Discharge: Good Plan - Discharge Summary Discharge Rx Participant: No New Discharge Prescriptions: New HYDROcodone/APAP 10-325MG [[place] 10-325] 1 each PO TID #9 tab Continue allopurinoL [Zyloprim] 100 mg PO DAILY@0900 Calcium Carb-Vit D 500Mg-5Mcg [[place] 500+D 5 Mcg (200 Iu)] 1 tab PO DAILY@0900 Levothyroxine Sodium [Synthroid] 12.5 mcg PO HS@2100 Ipratropium [place] 0.06%Nasal [Atrovent Nasal 0.06%] 2 spr EA NOSTRIL BID@0900,2100 DULoxetine HCL [Cymbalta] 60 mg PO HS@2100 DULoxetine HCL [Cymbalta] 30 mg PO HS@2100 Clopidogrel [Plavix] 75 mg PO HS@2100 rOPINIRole HCL [Requip] 4 mg PO HS@2100 Omeprazole 20 mg PO DAILY PRN PRN Reason: GERD Amiodarone [Cordarone] 200 mg PO DAILY@0900 Ferrous Sulfate [Iron (65 MG Elemental)] 325 mg PO BID@0900,2099 metFORMIN HCL [Glucophage XR] 1,000 mg PO DAILY@0900 Cyclobenzaprine [Flexeril] 10 mg PO HS@2099 Metoprolol Tartrate [Lopressor] 25 mg PO BID@0900,2100 Gabapentin 600 mg PO TID@0600,1400,2200 #9 tab Estradiol Cream [Estrace Cream 0.01%] 1 gm VAGINAL SUTH@2099 Atorvastatin [Lipitor] 40 mg PO HS@2099 Loperamide [Imodium] 2 mg PO Q8H PRN PRN Reason: Diarrhea Psyllium Husk (with Sugar) [Metamucil Powder] 6 gm PO BID@09,2099 Acetaminophen Tab [Tylenol] 650 mg PO Q4H PRN PRN Reason: Pain Insulin Lispro [humaLOG Kwikpen] See Protocol SQ ACHS Linagliptin [Tradjenta] 5 mg PO DAILY@0900 Mag Hydrox/Aluminum Hyd/Simeth [Mylanta Maximum Strength Liq] 10 ml PO Q4H PRN PRN Reason: Indigestion Trihexyphenidyl [Artane] 1 mg PO DAILY@0900 Midodrine [ProAmatine] 10 mg PO TID@0700,1100,1600 Temazepam [Restoril] 15 mg PO HS@2100 Loratadine [Claritin] 10 mg PO DAILY PRN PRN Reason: Allergy Symptoms Changed Nitrofurantoin Monohyd/M-Cryst [Macrobid] 100 mg PO BID #20 cap HYDROcodone/APAP 10-325MG [[place] 10-325] 1 tab PO Q6H PRN #12 tab PRN Reason: Pain Discharge Medication List Calcium Carb-Vit D 500Mg-5Mcg [Oscal 500+D 5 Mcg (200 Iu)] 1 tab PO DAILY@89901/05/14 [History] allopurinoL [Zyloprim] 100 mg PO DAILY@0900 01/05/14 [History] Levothyroxine Sodium [Synthroid] 12.5 mcg PO HS@209903/16/14 [History] Ipratropium [place] 0.06%Nasal [Atrovent Nasal 0.06%] 2 spr EA NOSTRIL BI D@09,209907/03/20 [History] DULoxetine HCL [Cymbalta] 60 mg PO HS@209912/17/20 [History] Estradiol Cream [Estrace Cream 0.01%] 1 gm VAGINAL SUTH@209912/17/20 [History] Atorvastatin [Lipitor] 40 mg PO HS@209912/27/20 [History] Loperamide [Imodium] 2 mg PO Q8H PRN 12/30/20 [History] Psyllium Husk (with Sugar) [Metamucil Powder] 6 gm PO BID@899,209902/13/21 [History] DULoxetine HCL [Cymbalta] 30 mg PO HS@209902/28/21 [History] Acetaminophen Tab [Tylenol] 650 mg PO Q4H PRN 03/29/21 [History] Clopidogrel [Plavix] 75 mg PO HS@209903/29/21 [History] Insulin Lispro [humaLOG Kwikpen] See Protocol SQ ACHS 03/29/21 [History] Linagliptin [Tradjenta] 5 mg PO DAILY@89903/29/21 [History] rOPINIRole HCL [Requip] 4 mg PO HS@209903/29/21 [History] Mag Hydrox/Aluminum Hyd/Simeth [Mylanta Maximum Strength Liq] 10 ml PO Q4H PRN 04/15/21 [History] Midodrine [ProAmatine] 10 mg PO TID@0700,1100,1600 04/15/21 [History] Omeprazole 20 mg PO DAILY PRN 04/15/21 [History] Trihexyphenidyl [Artane] 1 mg PO DAILY@89904/15/21 [History] Amiodarone [Cordarone] 200 mg PO DAILY@89904/27/21 [History] Temazepam [Restoril] 15 mg PO HS@209904/27/21 [History] Ferrous Sulfate [Iron (65 MG Elemental)] 325 mg PO BID@899,209905/05/21 [History] Loratadine [Claritin] 10 mg PO DAILY PRN 05/05/21 [History] metFORMIN HCL [Glucophage XR] 1,000 mg PO DAILY@89905/05/21 [History] Cyclobenzaprine [Flexeril] 10 mg PO HS@209905/07/21 [History] Metoprolol Tartrate [Lopressor] 25 mg PO BID@0900,2100 05/07/21 [History] Gabapentin 600 mg PO TID@0600,1400,2200 #9 tab 05/09/21 [Rx] HYDROcodone/APAP 10-325MG [[place] 10-325] 1 each PO TID #9 tab 05/09/21 [Rx] HYDROcodone/APAP 10-325MG [[place] 10-325] 1 tab PO Q6H PRN #12 tab 05/09/21 [Rx] Nitrofurantoin Monohyd/M-Cryst [Macrobid] 100 mg PO BID #20 cap 05/09/21 [Rx] Follow up Appointment(s)/Referral(s): Alvarez Rocha DO [Primary Care Provider] - 1 Week (After discharge from [facility]) Discharge Disposition: TRANSFER TO SNF/ECF
[2021-05-09] MEDS ORDERED: allopurinoL 100 MG TAB PO SCH (09:00)
[2021-05-09] MEDS ORDERED: metFORMIN 500 MG TAB PO SCH (09:00)
[2021-05-09] MEDS ORDERED: AMIODARONE 200 MG TAB PO SCH (09:00)
[2021-05-09] MEDS ORDERED: NITROFURANTOIN MONOHYD/M-CRYST 100 MG CAP PO SCH (09:00)
[2021-05-09] MEDS ORDERED: TRIHEXYPHENIDYL 2 MG TAB PO SCH (09:00)
[2021-05-09] MEDS ORDERED: CALCIUM CARB-VIT D 500 MG-5 MCG TAB PO SCH (09:00)
[2021-05-09] MEDS ORDERED: LINAGLIPTIN 5 MG TABLET PO SCH (09:00)
== END 2021-05-09 11:18 | DRG 536 ==
LOC: EC 18:48 → 5NMEDONC 23:30
PROVIDERS: ADMIT Family Medicine; ATTEND Family Medicine
DX: S72.111A Displaced fracture of greater trochanter of right femur, initial encounter for closed fracture (principal); D68.51 Activated protein C resistance; E11.41 Type 2 diabetes mellitus with diabetic mononeuropathy; M48.05 Spinal stenosis, thoracolumbar region; I48.0 Paroxysmal atrial fibrillation; G25.81 Restless legs syndrome; E03.9 Hypothyroidism, unspecified; E11.51 Type 2 diabetes mellitus with diabetic peripheral angiopathy without gangrene; I69.341 Monoplegia of lower limb following cerebral infarction affecting right dominant side; Z79.4 Long term (current) use of insulin; Z20.822 Contact with and (suspected) exposure to COVID-19; K21.9 Gastro-esophageal reflux disease without esophagitis; E78.5 Hyperlipidemia, unspecified; I10 Essential (primary) hypertension; F32.9 Major depressive disorder, single episode, unspecified; F41.9 Anxiety disorder, unspecified; M54.9 Dorsalgia, unspecified; M47.815 Spondylosis without myelopathy or radiculopathy, thoracolumbar region; M21.371 Foot drop, right foot; R13.10 Dysphagia, unspecified; G89.4 Chronic pain syndrome; K44.9 Diaphragmatic hernia without obstruction or gangrene; K59.00 Constipation, unspecified; M10.9 Gout, unspecified; R19.7 Diarrhea, unspecified; R29.6 Repeated falls; M19.90 Unspecified osteoarthritis, unspecified site; M20.40 Other hammer toe(s) (acquired), unspecified foot; Z79.02 Long term (current) use of antithrombotics/antiplatelets; Z79.84 Long term (current) use of oral hypoglycemic drugs; Z79.890 Hormone replacement therapy; Z79.899 Other long term (current) drug therapy; Z87.440 Personal history of urinary (tract) infections; Z86.718 Personal history of other venous thrombosis and embolism; Z86.711 Personal history of pulmonary embolism; Z95.820 Peripheral vascular angioplasty status with implants and grafts; Z87.01 Personal history of pneumonia (recurrent); Z85.72 Personal history of non-Hodgkin lymphomas; Z92.21 Personal history of antineoplastic chemotherapy; Z92.3 Personal history of irradiation; Z87.11 Personal history of peptic ulcer disease; Z90.49 Acquired absence of other specified parts of digestive tract; Z87.19 Personal history of other diseases of the digestive system; Z90.710 Acquired absence of both cervix and uterus; Z90.89 Acquired absence of other organs; Z87.42 Personal history of other diseases of the female genital tract; Z96.653 Presence of artificial knee joint, bilateral; Z98.1 Arthrodesis status; Z87.39 Personal history of other diseases of the musculoskeletal system and connective tissue; Z98.42 Cataract extraction status, left eye; Z98.41 Cataract extraction status, right eye; Z87.2 Personal history of diseases of the skin and subcutaneous tissue; Z87.448 Personal history of other diseases of urinary system; Z86.19 Personal history of other infectious and parasitic diseases; Z86.69 Personal history of other diseases of the nervous system and sense organs; Z98.890 Other specified postprocedural states; W01.0XXA Fall on same level from slipping, tripping and stumbling without subsequent striking against object, initial encounter; Z88.1 Allergy status to other antibiotic agents; Z88.5 Allergy status to narcotic agent; Z88.0 Allergy status to penicillin; Z88.2 Allergy status to sulfonamides; Z91.048 Other nonmedicinal substance allergy status; Z83.2 Family history of diseases of the blood and blood-forming organs and certain disorders involving the immune mechanism; Z80.3 Family history of malignant neoplasm of breast; Z82.3 Family history of stroke; Z82.49 Family history of ischemic heart disease and other diseases of the circulatory system; Z80.1 Family history of malignant neoplasm of trachea, bronchus and lung
CPT/HCPCS: 36415; 70450; 71045; 72125; 73502; 80048; 80053; 80061; 81001; 83036; 83605; 83735; 84439; 84443; 84481; 85025; 85610; 85730; 87040; 87086; 87635; 93005; 96360; 96361; 99285

== ENCOUNTER → 2021-05-19 | Outpatient (CLI) | payer MEDICARE, OTHER ==
--- NOTE | 2021-05-19 11:00 | P.PAINPG ---
Subjective Progress Note Date: 05/19/21 Principal diagnosis: Lumbar back pain Ms. Youngblood is a 81 year old pleasant female patient came to [facility] pain management clinic for follow-up along with her daughter in wheelchair. Patient described pain started many years ago. Patient had a hi story of status post T12 to L2 fusion on 04/17/2020, patient had a previous multiple lumbar back surgery. She had recent history of fall and nondisplaced fracture of the greater trochanter of the right femur on 05/09/2021. Patient is currently at [facility] on the [place], doing in house rehabilitation. Recently patient got urinary tract infection, she is little confused during the interview. But her daughter gave the information needed to complete the clinic visit. Patient described pain as aching, sharp, throbbing, burning type of pain. Patient rated pain 7-8 out of 10 in severity. Which may very her pain level from 5-9 out of 10 in severity. Pain increases with activities, and standing, walking, sitting, bending forward, and lifting. Pain decreases with pain medications and intervention procedures, physical therapy exercises. Overall patient activities decreased secondary to pain. Pain medications helping to some extent. Because of the pain patient is feeling lack of sleep and interest and energy. Patient had a previous caudal epidural, and transforaminal epidural steroid injection with good relief Patient denies any adverse effects to medications. She is on wheelchair, she is using a walker as walking aids for walking as needed. Patient denied any suicidal / homicidal tendency at this time. There are no signs of narcotic diversion/misuse/overuse and no new-onset weakness, bowel/bladder incontinence, saddle anesthesia, or no red flag symptoms. Objective - Exam General: Well-developed, well-nourished, no acute distress. Sitting in a wheelchair with nasal cannula oxygen HEENT: Normocephalic, and atraumatic Neck: Supple, no neck swelling Psychiatric: Appropriate mood, and affect, mildly confused state. [employer]: No noticeable focal neurological deficits Musculoskeletal: Upper extremity: Normal strength, and range of motion. Sensation grossly intact Lower extremity: Normal strength, and decreased range of motion secondary to pain. Lumbar spine: Paravertebral tenderness: positive . Healed entire lumbar area scar. Multiple trigger points positive over lumbar area Lumbar facet load test : positive Sacroiliac joint tenderness: Positive Thigh thrust test: Not able to perform secondary to pain SI joint compression test: Not able to perform secondary to pain Fabere test: Not able to perform secondary to pain - Constitutional Constitutional Comment(s): 12 point review of symptoms negative except as mentioned in the history of present illness. Assessment and Plan Assessment: Lumbar postlaminectomy syndrome Lumbar radiculopathy Lumbar spondylosis without myelopathy Myofascial pain syndrome Sacroiliac joint dysfunction Chronic pain syndrome non-displaced fracture of the greater trochanter of the right femur on 05/09/2021 Plan: #1 Diagnoses, prognosis, and multiple treatment options including but not limited to physical therapy, interventional therapy, adjunct medication therapy, narcotic medication, and surgical options were discussed with the patient. And all questions were answered to the patient's satisfaction. #2 treatment plan agreement : Patient was thoroughly discussed regarding the treatment options, alternatives, and importance of exercises as tolerated. Patient clearly understood. #3 Patient was counseled on importance of regular exercise. Including ghada chi, aerobic exercises as tolerated. Which helps for chronic pain, and overall well- being. #4 investigations: MAPS- reviewed , urine drug test- not done #5 diagnostic tests: None #6 consultation : Continued physical therapy # 7 interventional procedures: Right side L4-L5, L5-S1 transforaminal epidural steroid injection, and right-sided SI joint injection . Procedure, complications, alternatives discussed with the patient. #8 medications #1 Cymbalta 30 mg by mouth daily #2 Neurontin 600 mg by mouth every 8 hours #3 [place] 10/325 by mouth every 6 hours as needed Patient is getting this medication from [facility] on the [place]. #9 morphine milligrams equivalents dose ( MME) per day: 40 mg. #10 disposition: scheduled to follow up with pain clinic in 4 weeks duration. Time with Patient: Less than 30 PQRS Measure Charge Sheet Measure #130: Documentation of Current Meds in Medical Chart: Patient's medications documented in chart Measure #226: Tobacco Use: Screen & Cessation Intervention: Pt not a tobacco user Measure #111: Pneumonia Vaccination: Pneumococcal vaccine administered or previously received Measure #47: Advance Care Plan: Advance care planning discussed & documented, plan or surrogate given Measure #412: Opioid Treatment Agreement: No documentation of signed opioid treatment agreement Measure #408: Opioid Therapy Follow-up Evaluation: Patient had NO f/u eval minimum every 3 months during opioid therapy Measure #317: Preventitive Care & Scrn High Bld Press & F/U: Pre-hypertensive or hypertensive BP documented, pt will f/u with PCP Measure #128: Body Mass Index (BMI) Screening & Follow-up: BMI documented within normal parameters Measure #131: Pain Assessment & Follow-up: Pain positive & plan documented Measure #431: Unhealthy Alcohol Use Preventative Care & Scrn: Patient not identified as an unhealthy alcohol user PQRS Narrative: Smoking Status Never smoker Hx Alcohol Use (MH) No Home Medications: Ambulatory Orders Calcium Carb-Vit D 500Mg-5Mcg [Oscal 500+D 5 Mcg (200 Iu)] 1 tab PO DAILY@89901/05/14 allopurinoL [Zyloprim] 100 mg PO DAILY@89901/05/14 Levothyroxine Sodium [Synthroid] 12.5 mcg PO HS@209903/16/14 Ipratropium [place] 0.06%Nasal [Atrovent Nasal 0.06%] 2 spr EA NOSTRIL BID@899,209907/03/20 DULoxetine HCL [Cymbalta] 60 mg PO HS@209912/17/20 Estradiol Cream [Estrace Cream 0.01%] 1 gm VAGINAL SUTH@209912/17/20 Atorvastatin [Lipitor] 40 mg PO HS@209912/27/20 Loperamide [Imodium] 2 mg PO Q8H PRN 12/30/20 Psyllium Husk (with Sugar) [Metamucil Powder] 6 gm PO BID@0900,209902/13/21 DULoxetine HCL [Cymbalta] 30 mg PO HS@209902/28/21 Acetaminophen Tab [Tylenol] 650 mg PO Q4H PRN 03/29/21 Clopidogrel [Plavix] 75 mg PO HS@209903/29/21 Insulin Lispro [humaLOG Kwikpen] See Protocol SQ ACHS 03/29/21 Linagliptin [Tradjenta] 5 mg PO DAILY@89903/29/21 rOPINIRole HCL [Requip] 4 mg PO HS@209903/29/21 Mag Hydrox/Aluminum Hyd/Simeth [Mylanta Maximum Strength Liq] 10 ml PO Q4H PRN 04/15/21 Midodrine [ProAmatine] 10 mg PO TID@0700,1100,1600 04/15/21 Omeprazole 20 mg PO DAILY PRN 04/15/21 Trihexyphenidyl [Artane] 1 mg PO DAILY@0900 04/15/21 Amiodarone [Cordarone] 200 mg PO DAILY@0900 04/27/21 Ferrous Sulfate [Iron (65 MG Elemental)] 325 mg PO BID@0900,2100 05/05/21 Loratadine [Claritin] 10 mg PO DAILY PRN 05/05/21 metFORMIN HCL [Glucophage XR] 1,000 mg PO DAILY@0900 05/05/21 Cyclobenzaprine [Flexeril] 10 mg PO HS@2100 05/07/21 Metoprolol Tartrate [Lopressor] 25 mg PO BID@0900,209905/07/21 Apixaban [Eliquis] 5 mg PO BID #60 tab 05/09/21 Gabapentin 600 mg PO TID@0600,1400,2200 #9 tab 05/09/21 HYDROcodone/APAP 10-325MG [[place] 10-325] 1 each PO TID #9 tab 05/09/21 HYDROcodone/APAP 10-325MG [[place] 10-325] 1 tab PO Q6H PRN #12 tab 05/09/21 Nitrofurantoin Monohyd/M-Cryst [Macrobid] 100 mg PO BID #20 cap 05/09/21 Temazepam [Restoril] 15 mg PO HS@2100 #3 cap 05/09/21 Controlled Substance Measures - Controlled Substance Measures Is patient prescribed a controlled substance at discharge?: No
[2021-05-19 11:16] VITALS: BP 135/80; PULSE 87; RESP 18; TEMP 98.3
== END ==
LOC: PNWHC3 10:08
DX: S72.114D Nondisplaced fracture of greater trochanter of right femur, subsequent encounter for closed fracture with routine healing (principal); M96.1 Postlaminectomy syndrome, not elsewhere classified; M47.26 Other spondylosis with radiculopathy, lumbar region; M79.18 Myalgia, other site; M53.3 Sacrococcygeal disorders, not elsewhere classified; G89.4 Chronic pain syndrome; Z91.048 Other nonmedicinal substance allergy status; Z88.5 Allergy status to narcotic agent; Z88.1 Allergy status to other antibiotic agents; Z88.0 Allergy status to penicillin; Z88.2 Allergy status to sulfonamides
CPT/HCPCS: 99211